=== PATIENT | male | born 1980 | race Caucasian/White ===

== ENCOUNTER 2022-12-04 23:04 | Emergency (ER) | payer MEDICARE, MEDICAID, SELFPAY ==
[2022-12-04 23:49] VITALS: BP 121/83; PULSE 81; RESP 16; TEMP 36.8; O2SAT 98; BMI 31.6
--- NOTE | 2022-12-05 00:05 | ED_ITS ---
HPI - General Adult General Chief complaint: Headache Stated complaint: HEADACHE Time Seen by Provider: 12/04/22 23:43 Source: patient Mode of arrival: walk-in Limitations: no limitations History of Present Illness HPI narrative: Patient presents to emergency department complaining of a headache. Patient states he has a history of migraines and epilepsy. He states it was a gradual onset headache that started 6 days ago. Since his left temporal area. Has been persistent although it does improve when he takes Maxalt but then it comes back up. Patient has some nausea and denies any vomiting. He denies any fever, chills, cough, chest pain, shortness of breath. He denies any trauma, visual disturbance, speech difficulties. To call his neurologist who advised him to come and be checked out for any intracranial pathology. Is not the patient's worst headache of his lifetime. it Has not changed in character, but he never had them this long. Related Data Home Medications Medication Instructions Recorded Confirmed Phenergan 25 mg PO TID PRN nausea and 12/04/22 12/05/22 vomiting clonazepam 2 mg tablet 2 mg PO TID 12/05/22 12/05/22 cyproheptadine 4 mg tablet 4 mg PO Q12H 12/05/22 12/05/22 galcanezumab-gnlm 120 mg/mL 120 mg subcut .monthly 12/05/22 12/05/22 subcutaneous pen injector (Emgality Pen) lacosamide 100 mg tablet 100 mg PO Q12H 12/05/22 12/05/22 quetiapine 400 mg tablet 400 mg PO DAILY 12/05/22 12/05/22 quetiapine 50 mg tablet 50 mg PO TID PRN anxiety 12/05/22 12/05/22 rizatriptan 10 mg disintegrating See Rx Instructions PO .COMPLEX 12/05/22 12/05/22 tablet (Maxalt-PRACTICE COORDINATOR) sertraline 100 mg tablet 300 mg PO Q24H 12/05/22 12/05/22 simvastatin 20 mg tablet 20 mg PO DAILY 12/05/22 12/05/22 Allergies Allergy/AdvReac Type Severity Reaction Status Date / Time desvenlafaxine [From Pristiq] Allergy Unknown Verified 12/05/22 01:15 keppra Allergy Unknown Uncoded 12/05/22 01:15 Review of Systems ROS Status of ROS 10 or more systems reviewed and unremarkable except as noted in history and below [facility] Social History Smoking status: Never smoker Exam Narrative Exam Narrative: Nurses notes and vital signs reviewed and patient is not hypoxic. General: Nontoxic, Well-appearing and in no apparent distress. Skin: Warm, dry, no pallor noted. No Rash Head: Normocephalic, atraumatic. no tenderness to the temporal artery. Neck: Supple, non-tender. Eye: Pupils are equal, round and EOMI. No scleral icterus. Ears, Nose, Mouth, and Throat: TM clear, no posterior oropharynx erythema or nasal mucosal hypertrophy, uvula is mid-line Oral mucosa is moist Cardiovascular: Regular Rate and Rhythm without murmur, gallop or rub. Respiratory: No accessory muscle use or respiratory distress. Lungs are clear to auscultation, no wheezing, rales or rhonchi Chest Wall: no tenderness Back: No midline thoracic or lumbar vertebral tenderness. No CVA tenderness Musculoskeletal: normal ROM, no calf or popliteal tenderness, no lower extremity edema/swelling GI: Abdomen is soft, non-distended. Normal bowel sounds. No masses appreciated. No tenderness to palpation. No rebound, guarding, or rigidity noted. Neurological: A&O x4. No cranial nerve dysfunction observed. No truncal ataxia. Moves all extremities. Sensation intact. Psychiatric: Cooperative and interactive. Normal mood and affect. Constitutional Vital Signs, click to edit/add: Last Vital Signs Temp 98.3 F 12/04/22 23:49 Pulse 74 12/05/22 02:08 Resp 20 12/05/22 02:08 BP 129/76 H 12/05/22 02:08 Pulse Ox 95 12/05/22 02:08 O2 Del Method Room Air 12/05/22 02:08 Course Vital Signs Vital signs: Vital Signs Temperature 98.3 F 12/04/22 23:49 Pulse Rate 81 12/04/22 23:49 Respiratory Rate 16 12/04/22 23:49 Blood Pressure 121/83 H 12/04/22 23:49 Pulse Oximetry 98 12/04/22 23:49 Oxygen Delivery Method Room Air 12/04/22 23:49 Temperature 98.3 F 12/04/22 23:49 Pulse Rate 74 12/05/22 02:08 Respiratory Rate 20 12/05/22 02:08 Blood Pressure 129/76 H 12/05/22 02:08 Pulse Oximetry 95 12/05/22 02:08 Oxygen Delivery Method Room Air 12/05/22 02:08 Medical Decision Making MDM Narrative Medical decision making narrative: Patient was given 1 L normal saline, analgesics, and time medics. Symptoms improved. Given Norflex. He is nontoxic, tolerating by mouth. Stable for outpatient follow-up and treatment. At this time the patient is without objective evidence of an acute process requiring hospitalization or inpatient management. The patient has remained hemodynamically stable. No additional indication for emergent studies at this time. I answered all questions. Discussed discharge instructions including standard anticipatory guidance and what should prompt a return to the emergency department, including if they get worse are not getting better or develops any new or concerning symptoms. I've given them specific time frame in which to follow-up, and who to follow-up with. The patient demonstrates understanding. Patient is nontoxic and stable for discharge with outpatient follow-up. This note was created with the assistance of a speech recognition program. Although the intention is to generate documents that actually reflects the content of the visit, no guarantees can be provided that every mistake has been identified and corrected by editing. Lab Data Lab results reviewed: Yes I reviewed the patient's lab results Labs: Lab Results 12/05/22 Range/Units 00:41 WBC 9.3 (4.0-11.0) 10^3/uL RBC 5.39 (4.70-6.10) 10^6/uL Hgb 15.6 (14.0-18.0) g/dL Hct 46.4 (42.0-54.0) % MCV 86.1 (80.0-94.0) fL MCH 28.9 (25.9-34.0) pg MCHC 33.6 (29.9-35.2) g/dL RDW 12.5 (11.0-15.0) % Plt Count 297 (150-450) 10^3/uL MPV 9.0 L (9.5-13.5) fL Neut % (Auto) 53.5 (43.0-75.0) % Lymph % (Auto) 32.9 (20.5-60.0) % [place] % (Auto) 9.2 (1.7-12.0) % Eos % (Auto) 3.3 (0.9-7.0) % Baso % (Auto) 0.8 (0.2-2.0) % Neut # (Auto) 5.0 (1.4-6.5) 10^3/uL Lymph # (Auto) 3.1 (1.2-3.8) 10^3/uL [place] # (Auto) 0.9 H (0.3-0.8) 10^3/uL Eos # (Auto) 0.3 (0.0-0.7) 10^3/uL Baso # (Auto) 0.1 (0.0-0.1) 10^3/uL Abs Immat Gran (auto) 0.03 (0.00-0.03) 10^3/uL Imm/Tot Granulo (auto) 0.3 (0.0-0.5) % ESR 15 (<=15) mm/hr Sodium 138 (136-145) mmol/L Potassium 3.5 (3.5-5.1) mmol/L Chloride 103 (98-107) mmol/L Carbon Dioxide 27.1 (21.0-32.0) mmol/L Anion Gap 11.4 BUN 11.0 (7.0-18.0) mg/dL Creatinine 0.79 (0.70-1.30) mg/dL Est GFR ( Amer) >60 (>=60) Est GFR (Non-Af Amer) >60 (>=60) BUN/Creatinine Ratio 13.9 Glucose 140 H (74-106) mg/dL Calcium 8.6 (8.5-10.1) mg/dL Discharge Plan Discharge Chief Complaint: Headache Clinical Impression: Headache Patient Disposition: Home, Self-Care Time of Disposition Decision: 02:16 Condition: Good Mode of Transportation: Private Vehicle Prescriptions / Home Meds: No Action Phenergan 25 mg tablet 25 mg PO TID PRN (Reason: nausea and vomiting) Rx Instructions: TID for nausea rizatriptan [Maxalt-PRACTICE COORDINATOR] 10 mg tablet,disintegrating See Rx Instructions .ROUTE .COMPLEX Rx Instructions: take 1 tab at onset of headache; if no relief may repeat 1 tab after at least 2 hrs; max = 3 tabs/24 hr Emgality Pen 120 mg/mL pen injector 120 mg SUBCUT .monthly quetiapine 400 mg tablet 400 mg PO DAILY Rx Instructions: at HS quetiapine 50 mg tablet 50 mg PO TID PRN (Reason: anxiety) lacosamide 100 mg tablet 100 mg PO Q12H clonazepam 2 mg tablet 2 mg PO TID cyproheptadine 4 mg tablet 4 mg PO Q12H sertraline 100 mg tablet 300 mg PO Q24H simvastatin 20 mg tablet 20 mg PO DAILY Rx Instructions: HS Instructions: General Headache (ED) Stand Alone Forms: Portal Instructions Referrals: Uriel Clements MD [Primary Care Provider] - 1 week Discharge Date/Time: 12/05/22 02:40
--- NOTE | 2022-12-05 00:26 | CT_ITS ---
The [address] [address] Patient Name: AMEYA MEZA MRN: [id number] date: 1980 Sex: M Assigned Patient Location: ER Current Patient Location: Accession/Order Number: [id number] Exam Date: 12/05/2022 01:40 Report Date: 12/05/2022 02:00 At the request of: MICHAEL GOLDMAN Procedure: CT head/brain wo con EXAM: CT head/brain wo con HISTORY: cephalgia COMPARISON: CT head examination dated 07/28/2022. TECHNIQUE: Noncontrast axial CT images through the head were obtained with coronal and sagittal reformats. Dose reduction techniques were achieved by using automated exposure control and/or adjustment of mA and/or kV according to patient size and/or use of iterative reconstruction technique. FINDINGS: The cerebral sulci and ventricles are normal in size and shape. The density of the cerebrum, brainstem, and cerebellum is unremarkable. There is no evidence of intracranial hemorrhage, mass, or midline shift. No extra-axial fluid collection is seen. The brainstem and cerebellum are normal in appearance. The visualized paranasal sinuses and mastoid air cells are clear. No skull abnormalities are identified. CT/CT head/brain wo con IMPRESSION: 1. No acute intracranial abnormality. Electronically authenticated by: Britt HOOPER Date: 12/05/2022 02:00
[2022-12-05 00:55] LABS: Basophils Absolute Auto 0.1 10^3/uL (0.0-0.1); Basophils Percent Auto 0.8 % (0.2-2.0); Eosinophils Absolute Auto 0.3 10^3/uL (0.0-0.7); Eosinophils Percent Auto 3.3 % (0.9-7.0); Hematocrit 46.4 % (42.0-54.0); Hemoglobin 15.6 g/dL (14.0-18.0); Immature Granulocytes Abs Auto 0.03 10^3/uL (0.00-0.03); Immature Granulocytes Pct Auto 0.3 % (0.0-0.5); Lymphocytes Absolute Auto 3.1 10^3/uL (1.2-3.8); Lymphocytes Percent Auto 32.9 % (20.5-60.0); Mean Corpuscular HGB Conc 33.6 g/dL (29.9-35.2); Mean Corpuscular Hemoglobin 28.9 pg (25.9-34.0); Mean Corpuscular Volume 86.1 fL (80.0-94.0); Monocytes Absolute Auto 0.9 10^3/uL (0.3-0.8); Monocytes Percent Auto 9.2 % (1.7-12.0); Neutrophils Percent Auto 53.5 % (43.0-75.0); Platelet Count 297 10^3/uL (150-450); Red Blood Count 5.39 10^6/uL (4.70-6.10); Red Cell Distribution Width 12.5 % (11.0-15.0); White Blood Count 9.3 10^3/uL (4.0-11.0)
[2022-12-05] MEDS: HYDROMORPHONE HCL 1 MG/ML CARTRIDGE IVP (01:01)
[2022-12-05] MEDS: ONDANSETRON PF 4 MG/2 ML VIAL IV (01:01)
[2022-12-05] MEDS: 0.9 % SODIUM CHLORIDE 1,000 ML 999 ML IV (01:01)
[2022-12-05] MEDS: KETOROLAC TROMETHAMINE 30 MG/ML VIAL IVP (01:01)
[2022-12-05 01:07] LABS: Anion Gap 11.4; BUN Creatinine Ratio 13.9; Calcium 8.6 mg/dL (8.5-10.1); Carbon Dioxide 27.1 mmol/L (21.0-32.0); Chloride 103 mmol/L (98-107); Estimated GFR (African America >60 (>=60); Estimated GFR (Non-African Ame >60 (>=60); Glucose 140 mg/dL (74-106); Potassium 3.5 mmol/L (3.5-5.1); Sodium 138 mmol/L (136-145)
[2022-12-05 01:13] LABS: Erythrocyte Sedimentation Rate 15 mm/hr (<=15)
[2022-12-05 02:08] VITALS: BP 129/76; PULSE 74; RESP 20; O2SAT 95
[2022-12-05] MEDS: ORPHENADRINE 60 MG/ 2 ML VIAL IV (02:26)
== END 2022-12-05 02:40 | disposition home or self-care (01) ==
PROVIDERS: Emergency Provider Emergency Medicine; PCP Family Medicine
DX: R51.9 Headache, unspecified (principal); G40.909 Epilepsy, unspecified, not intractable, without status epilepticus; Z79.899 Other long term (current) drug therapy
CPT/HCPCS: 36415; 70450; 80048; 85025; 85652; 96374; 96375; 99285; J1170

== ENCOUNTER 2023-01-19 22:51 | Emergency (ER) | payer MEDICARE, MEDICAID, SELFPAY ==
[2023-01-19 23:24] VITALS: BP 144/102; PULSE 118; RESP 18; TEMP 36.6; O2SAT 94; BMI 31.8
[2023-01-19 23:31] VITALS: BP 144/102
--- NOTE | 2023-01-19 23:38 | ED.NECK1 ---
HPI - Neck Pain/Injury General Chief Complaint: Neck Pain/Injury Stated Complaint: pain in head radiating to neck lt side Time Seen by Provider: 01/19/23 23:38 Source: patient Mode of arrival: walk-in History of Present Illness HPI Narrative: Patient presents to emergency department complaining of neck pain. Patient states he has a burning sensation from the left side of his neck radiating up to his head. Patient has a history of epilepsy and has generally does not stimulator. She states one time he had kind of the same type of symptoms and the wires had eroded and were out of place and he is concerned that this simply could be happening. He has pain when swallowing is more like burning he denies any throat swelling, or difficulty swallowing. He states he was seen by his primary care doctor recently being treated for vertigo any upper respiratory infection he is on a steroid, Cipro, and meclizine. Patient denies any fever, or chills. He states he has been using his BiPAP nightly.Patient denies any chest pain, shortness of breath. He denies any wheezing. He denies any lower extremity edema, or cramping. He denies any fever, chills. He denies any nausea, vomiting, diarrhea. Related Data Home Medications Medication Instructions Recorded Confirmed Phenergan 25 mg PO TID PRN nausea and 12/04/22 01/19/23 vomiting clonazepam 2 mg tablet 2 mg PO TID 12/05/22 01/19/23 cyproheptadine 4 mg tablet 4 mg PO Q12H 12/05/22 01/19/23 galcanezumab-gnlm 120 mg/mL 120 mg subcut .monthly 12/05/22 01/19/23 subcutaneous pen injector (Emgality Pen) lacosamide 100 mg tablet 100 mg PO Q12H 12/05/22 12/05/22 quetiapine 400 mg tablet 400 mg PO DAILY 12/05/22 01/19/23 quetiapine 50 mg tablet 50 mg PO TID PRN anxiety 12/05/22 12/05/22 rizatriptan 10 mg disintegrating See Rx Instructions PO .COMPLEX 12/05/22 01/19/23 tablet (Maxalt-COMMERCIAL LOAN UNDERWRITER) sertraline 100 mg tablet 300 mg PO Q24H 12/05/22 01/19/23 simvastatin 20 mg tablet 20 mg PO DAILY 12/05/22 01/19/23 albuterol sulfate 90 mcg/actuation inhalation 01/19/23 aerosol inhaler dextroamphetamine-amphetamine .ROUTE 01/19/23 fluticasone propionate 50 intranasal 01/19/23 mcg/actuation nasal spray,suspension Allergies Allergy/AdvReac Type Severity Reaction Status Date / Time desvenlafaxine [From Pristiq] Allergy Unknown Verified 12/05/22 01:15 keppra Allergy Unknown Uncoded 12/05/22 01:15 Review of Systems ROS Status of ROS 10 or more systems reviewed and unremarkable except as noted in history and below [facility] Medical History (Updated 01/20/23 @ 02:33 by Leann Campbell MD) Surgical History (Updated 01/19/23 @ 23:52 by Karli Aguirre) Social History Smoking status: Never smoker Exam Narrative Exam Narrative: Nurses notes and vital signs reviewed and patient is not hypoxic. General: Nontoxic, Well-appearing and in no apparent distress. Skin: Warm, dry, no pallor noted. No Rash Head: Normocephalic, atraumatic. Neck: Supple, non-tender. Eye: Pupils are equal, round and EOMI. No scleral icterus. Ears, Nose, Mouth, and Throat: TM clear, mild posterior oropharynx erythema, no nasal mucosal hypertrophy, uvula is mid-line Oral mucosa is moist Cardiovascular: Regular Rate and Rhythm without murmur, gallop or rub. Respiratory: No accessory muscle use or respiratory distress. Lungs are clear to auscultation, no wheezing, rales or rhonchi Chest Wall: no tenderness Back: No midline thoracic or lumbar vertebral tenderness. No CVA tenderness Musculoskeletal: normal ROM, no calf or popliteal tenderness, no lower extremity edema/swelling GI: Abdomen is soft, non-distended. Normal bowel sounds. No masses appreciated. No tenderness to palpation. No rebound, guarding, or rigidity noted. Neurological: A&O x4. No cranial nerve dysfunction observed. No truncal ataxia. Moves all extremities. Sensation intact. Psychiatric: Cooperative and interactive. Normal mood and affect. Constitutional Vital Signs, click to edit/add: Last Vital Signs Temp 97.9 F 01/19/23 23:24 Pulse 118 H 01/19/23 23:24 Resp 18 01/19/23 23:24 BP 159/100 H 01/20/23 02:35 Pulse Ox 97 01/20/23 02:40 Course Vital Signs Vital signs: Vital Signs Temperature 97.9 F 01/19/23 23:24 Pulse Rate 118 H 01/19/23 23:24 Respiratory Rate 18 01/19/23 23:24 Blood Pressure 144/102 H 01/19/23 23:24 Pulse Oximetry 94 L 01/19/23 23:24 Temperature 97.9 F 01/19/23 23:24 Pulse Rate 118 H 01/19/23 23:24 Respiratory Rate 18 01/19/23 23:24 Blood Pressure 159/100 H 01/20/23 02:35 Pulse Oximetry 97 01/20/23 02:40 MDM - Neck Pain/Injury MDM Narrative Medical decision making narrative: Patient was given a gastrointestinal cocktail to see if it would help with the discomfort. CT neck soft tissue is unremarkable. The patient was swabbed for strep which is negative. Patient is positive for Covid-19. At this time the patient is without objective evidence of an acute process requiring hospitalization or inpatient management. The patient has remained hemodynamically stable. No additional indication for emergent studies at this time. I answered all questions. Discussed discharge instructions including standard anticipatory guidance and what should prompt a return to the emergency department, including if they get worse are not getting better or develops any new or concerning symptoms. I've given them specific time frame in which to follow-up, and who to follow-up with. The patient demonstrates understanding. Patient is nontoxic and stable for discharge with outpatient follow-up. This note was created with the assistance of a speech recognition program. Although the intention is to generate documents that actually reflects the content of the visit, no guarantees can be provided that every mistake has been identified and corrected by editing. Lab Data Attestation: I reviewed the patient's lab results. Labs: Lab Results 01/20/23 01/20/23 Range/Units 00:30 01:00 WBC 11.6 H (4.0-11.0) 10^3/uL RBC 5.94 (4.70-6.10) 10^6/uL Hgb 16.9 (14.0-18.0) g/dL Hct 50.8 (42.0-54.0) % MCV 85.5 (80.0-94.0) fL MCH 28.5 (25.9-34.0) pg MCHC 33.3 (29.9-35.2) g/dL RDW 13.1 (11.0-15.0) % Plt Count 356 (150-450) 10^3/uL MPV 8.5 L (9.5-13.5) fL Neut % (Auto) 69.8 (43.0-75.0) % Lymph % (Auto) 22.3 (20.5-60.0) % [place] % (Auto) 6.3 (1.7-12.0) % Eos % (Auto) 0.2 L (0.9-7.0) % Baso % (Auto) 0.5 (0.2-2.0) % Neut # (Auto) 8.1 H (1.4-6.5) 10^3/uL Lymph # (Auto) 2.6 (1.2-3.8) 10^3/uL [place] # (Auto) 0.7 (0.3-0.8) 10^3/uL Eos # (Auto) 0.0 (0.0-0.7) 10^3/uL Baso # (Auto) 0.1 (0.0-0.1) 10^3/uL Abs Immat Gran (auto) 0.11 H (0.00-0.03) 10^3/uL Imm/Tot Granulo (auto) 0.9 H (0.0-0.5) % Sodium 135 L (136-145) mmol/L Potassium 4.4 (3.5-5.1) mmol/L Chloride 95 L (98-107) mmol/L Carbon Dioxide 32.5 H (21.0-32.0) mmol/L Anion Gap 11.9 BUN 15.0 (7.0-18.0) mg/dL Creatinine 0.90 (0.70-1.30) mg/dL Est GFR ( Amer) >60 (>=60) Est GFR (Non-Af Amer) >60 (>=60) BUN/Creatinine Ratio 16.7 Glucose 113 H (74-106) mg/dL Calcium 9.4 (8.5-10.1) mg/dL Total Bilirubin 0.6 (0.2-1.0) mg/dL AST 18 (15-37) U/L ALT 48 (16-63) U/L Alkaline Phosphatase 68 (46-116) U/L Total Protein 8.3 H (6.4-8.2) g/dL Albumin 4.3 (3.4-5.0) g/dL Globulin 4.0 g/dL Albumin/Globulin Ratio 1.1 SARS-CoV-2 (PCR) Positive A (NEGATIVE) Streptococcus Screen Negative Discharge Plan Discharge Chief Complaint: Neck Pain/Injury Clinical Impression: Upper respiratory tract infection due to COVID-19 virus, Pharyngitis Patient Disposition: Home, Self-Care Time of Disposition Decision: 02:33 Condition: Good Mode of Transportation: Private Vehicle Prescriptions / Home Meds: No Action Phenergan 25 mg tablet 25 mg PO TID PRN (Reason: nausea and vomiting) Rx Instructions: TID for nausea rizatriptan [Maxalt-COMMERCIAL LOAN UNDERWRITER] 10 mg tablet,disintegrating See Rx Instructions .ROUTE .COMPLEX Rx Instructions: take 1 tab at onset of headache; if no relief may repeat 1 tab after at least 2 hrs; max = 3 tabs/24 hr Emgality Pen 120 mg/mL pen injector 120 mg SUBCUT .monthly quetiapine 400 mg tablet 400 mg PO DAILY Rx Instructions: at HS quetiapine 50 mg tablet 50 mg PO TID PRN (Reason: anxiety) lacosamide 100 mg tablet 100 mg PO Q12H clonazepam 2 mg tablet 2 mg PO TID cyproheptadine 4 mg tablet 4 mg PO Q12H sertraline 100 mg tablet 300 mg PO Q24H simvastatin 20 mg tablet 20 mg PO DAILY Rx Instructions: HS albuterol sulfate 90 mcg/actuation HFA aerosol inhaler INHALATION fluticasone propionate 50 mcg/actuation spray,suspension INTRANASAL dextroamphetamine-amphetamine [Adderall] .ROUTE Instructions: Pharyngitis (ED), How to Recover from COVID-19 at Home (ED) Stand Alone Forms: Portal Instructions Referrals: Uriel Clements MD [Primary Care Provider] - 1 week Discharge Date/Time: 01/20/23 02:52
[2023-01-19 23:42] VITALS: O2SAT 94
[2023-01-19 23:50] VITALS: O2SAT 96
[2023-01-20] VITALS (20 sets, daily range): BP systolic 128–159; BP diastolic 87–105; O2SAT 94–99
--- NOTE | 2023-01-20 00:20 | CT_ITS ---
The [address] [address] Patient Name: AMEYA MEZA MRN: [id number] date: 1980 Sex: M Assigned Patient Location: ER Current Patient Location: Accession/Order Number: [id number] Exam Date: 01/20/2023 00:45 Report Date: 01/20/2023 01:06 At the request of: MICHAEL GOLDMAN Procedure: CT soft tissue neck w con EXAMINATION: CT soft tissue neck w con CLINICAL INDICATION: Throat pain, swelling. TECHNIQUE: Axial CT images of the soft tissues of the neck were obtained following intravenous administration of 100 cc of Omnipaque 300. Coronal and sagittal images were then acquired using the source data. Automated dose lowering techniques and/or adjustment according to patient size were utilized for this examination. COMPARISON: CT of the soft tissues of the neck dated DATE. FINDINGS: The presence of dental amalgam causes streak artifact that obscures portions of the mandible, maxilla and the soft tissues of the signalling and communications engineer and buccal spaces and oral cavity and oropharynx thus limiting evaluation in these regions. There are no abnormally enhancing masses in the superficial or deep soft tissues of the head and neck. The fat planes are preserved. No abnormally enlarged lymph nodes are present. The oropharynx, hypopharynx, larynx, and trachea are patent. The parotid glands, submandibular glands, and thyroid gland are unremarkable. Small mucous retention cyst versus polyp within the left maxillary antrum. Remaining imaged portions of the paranasal sinuses, mastoid air cells, and orbits are normal. There is no abnormal attenuation or enhancement in the imaged portions of the brain. Vascular structures are patent without high-grade stenosis. No acute osseous abnormality otherwise. Imaged portions of the lungs and the mediastinum are normal. CT/CT soft tissue neck w con IMPRESSION: 1. No acute process visualized within the soft tissues of the neck. Electronically authenticated by: ABNER RAMIREZ Date: 01/20/2023 01:06
--- NOTE | 2023-01-20 00:35 | PC.NURSE ---
patient has vagal nerve stimulator to treat epilepsy. He has had pain in his neck like this in the past, 2020, but only because the wires on the stimulator broke. He was transferred from this facility to [facility] where all of the care for this stimulator is done.
[2023-01-20 00:42] LABS: Basophils Absolute Auto 0.1 10^3/uL (0.0-0.1); Basophils Percent Auto 0.5 % (0.2-2.0); Eosinophils Percent Auto 0.2 % (0.9-7.0); Hematocrit 50.8 % (42.0-54.0); Hemoglobin 16.9 g/dL (14.0-18.0); Immature Granulocytes Abs Auto 0.11 10^3/uL (0.00-0.03); Immature Granulocytes Pct Auto 0.9 % (0.0-0.5); Lymphocytes Absolute Auto 2.6 10^3/uL (1.2-3.8); Lymphocytes Percent Auto 22.3 % (20.5-60.0); Mean Corpuscular HGB Conc 33.3 g/dL (29.9-35.2); Mean Corpuscular Hemoglobin 28.5 pg (25.9-34.0); Mean Corpuscular Volume 85.5 fL (80.0-94.0); Mean Platelet Volume 8.5 fL (9.5-13.5); Monocytes Absolute Auto 0.7 10^3/uL (0.3-0.8); Monocytes Percent Auto 6.3 % (1.7-12.0); Neutrophils Absolute Auto 8.1 10^3/uL (1.4-6.5); Neutrophils Percent Auto 69.8 % (43.0-75.0); Platelet Count 356 10^3/uL (150-450); Red Blood Count 5.94 10^6/uL (4.70-6.10); Red Cell Distribution Width 13.1 % (11.0-15.0); White Blood Count 11.6 10^3/uL (4.0-11.0)
[2023-01-20] MEDS: 0.9 % SODIUM CHLORIDE 1,000 ML 999 ML IV (00:56)
[2023-01-20 00:59] LABS: Alanine Aminotransferase 48 U/L (16-63); Albumin Globulin Ratio 1.1; Albumin Level 4.3 g/dL (3.4-5.0); Alkaline Phosphatase 68 U/L (46-116); Anion Gap 11.9; Aspartate Amino Transferase 18 U/L (15-37); BUN Creatinine Ratio 16.7; Bilirubin Total 0.6 mg/dL (0.2-1.0); Calcium 9.4 mg/dL (8.5-10.1); Carbon Dioxide 32.5 mmol/L (21.0-32.0); Chloride 95 mmol/L (98-107); Estimated GFR (African America >60 (>=60); Estimated GFR (Non-African Ame >60 (>=60); Glucose 113 mg/dL (74-106); Potassium 4.4 mmol/L (3.5-5.1); Sodium 135 mmol/L (136-145); Total Protein 8.3 g/dL (6.4-8.2)
--- NOTE | 2023-01-20 01:33 | XR_ITS ---
The [address] [address] Patient Name: AMEYA MEZA MRN: [id number] date: 1980 Sex: M Assigned Patient Location: ER Current Patient Location: ER Accession/Order Number: [id number] Exam Date: 01/20/2023 01:58 Report Date: 01/20/2023 02:11 At the request of: MICHAEL GOLDMAN Procedure: XR chest 1V EXAM: XR chest 1V HISTORY: cough COMPARISON: 01/12/2022. TECHNIQUE: AP FINDINGS: Stable left-sided cardiac pacemaker. Heart size is within normal limits. The lung cisneros show no evidence for consolidation, infiltrate, pneumothorax or pleural effusions. The diaphragmatic and osseous structures are intact without evidence for an acute osseous abnormality. XR/XR chest 1V IMPRESSION: No acute cardiopulmonary process. Electronically authenticated by: ABNER RAMIREZ Date: 01/20/2023 02:11
[2023-01-20 01:45] LABS: SARS-CoV-2 Ag POSITIVE (NEGATIVE)
[2023-01-20 01:46] LABS: Internal Control Within Normal Limits; Strep A Antigen Screen Negative
[2023-01-20] MEDS: lidocaine HCL 15 ML, MAG HYDROX/ALUMINUM HYD/SIMETH 30 ML, HYOSCYAMINE SULFATE 0.25 MG PO (02:32)
== END 2023-01-20 02:52 | disposition home or self-care (01) ==
PROVIDERS: Emergency Provider Emergency Medicine; PCP Family Medicine
DX: U07.1 COVID-19 (principal); J06.9 Acute upper respiratory infection, unspecified; J02.9 Acute pharyngitis, unspecified; G40.909 Epilepsy, unspecified, not intractable, without status epilepticus; Z79.899 Other long term (current) drug therapy
CPT/HCPCS: 36415; 70491; 71045; 80053; 85025; 87070; 87811; 87880; 99285; Q9967

== ENCOUNTER 2023-02-23 22:24 | Emergency (ER) | payer MEDICARE, MEDICAID, SELFPAY ==
[2023-02-23 22:42] VITALS: BP 162/106; PULSE 93; RESP 16; TEMP 36.6; O2SAT 98; BMI 30.7
--- NOTE | 2023-02-23 23:03 | CT_ITS ---
The [address] [address] Patient Name: AMEYA MEZA MRN: [id number] date: 1980 Sex: M Assigned Patient Location: ER Current Patient Location: ER Accession/Order Number: [id number] Exam Date: 02/23/2023 23:52 Report Date: 02/24/2023 00:11 At the request of: ROSEMARY MEEKS Procedure: CT abdomen pelvis wo con EXAM: CT abdomen pelvis wo con HISTORY: left flank pain, r/o stone COMPARISON: CT abdomen and pelvis examination dated 07/28/2022. TECHNIQUE: Noncontrast axial CT images through the abdomen and pelvis were obtained with coronal and sagittal reformats. Dose reduction techniques were achieved by using automated exposure control and/or adjustment of mA and/or kV according to patient size and/or use of iterative reconstruction technique. FINDINGS: There is mild bibasilar atelectasis. Abdomen: Please note that the sensitivity for detection of focal lesions or vascular disease is markedly reduced without intravenous contrast. The liver and spleen are unremarkable. There is no intra or extrahepatic biliary duct dilatation. The gallbladder is unremarkable. There is a 0.4 cm calculus in the distal left ureter with mild left hydroureter and hydronephrosis. The pancreas, adrenal glands, right kidney, and bowel loops are unremarkable. The patient is status post appendectomy. There is no mesenteric or retroperitoneal lymphadenopathy. Pelvis: The bladder demonstrates mild wall thickening. The rectum is unremarkable. There is no iliac or inguinal lymphadenopathy. There are small fat-containing inguinal hernias. Bone windows show no aggressive osseous lesions. CT/CT abdomen pelvis wo con IMPRESSION: 1. There is a 0.4 cm calculus in the distal left ureter with mild hydroureter and hydronephrosis. 2. Status post appendectomy. 3. Urinary bladder wall thickening. Please correlate with urinalysis for infection. Electronically authenticated by: Britt HOOPER Date: 02/24/2023 00:11
[2023-02-23 23:32] LABS: Basophils Absolute Auto 0.1 10^3/uL (0.0-0.1); Basophils Percent Auto 0.7 % (0.2-2.0); Eosinophils Absolute Auto 0.1 10^3/uL (0.0-0.7); Eosinophils Percent Auto 1.1 % (0.9-7.0); Hematocrit 45.7 % (42.0-54.0); Immature Granulocytes Abs Auto 0.03 10^3/uL (0.00-0.03); Immature Granulocytes Pct Auto 0.3 % (0.0-0.5); Lymphocytes Absolute Auto 2.1 10^3/uL (1.2-3.8); Lymphocytes Percent Auto 19.7 % (20.5-60.0); Mean Corpuscular HGB Conc 32.8 g/dL (29.9-35.2); Mean Corpuscular Volume 88.2 fL (80.0-94.0); Mean Platelet Volume 9.1 fL (9.5-13.5); Monocytes Absolute Auto 0.8 10^3/uL (0.3-0.8); Neutrophils Absolute Auto 7.7 10^3/uL (1.4-6.5); Neutrophils Percent Auto 71.2 % (43.0-75.0); Platelet Count 309 10^3/uL (150-450); Red Blood Count 5.18 10^6/uL (4.70-6.10); Red Cell Distribution Width 12.6 % (11.0-15.0); White Blood Count 10.7 10^3/uL (4.0-11.0)
[2023-02-23 23:39] LABS: Anion Gap 8.8; BUN Creatinine Ratio 15.7; Calcium 9.1 mg/dL (8.5-10.1); Carbon Dioxide 30.1 mmol/L (21.0-32.0); Chloride 102 mmol/L (98-107); Estimated GFR (African America >60 (>=60); Estimated GFR (Non-African Ame >60 (>=60); Glucose 102 mg/dL (74-106); Potassium 3.9 mmol/L (3.5-5.1); Sodium 137 mmol/L (136-145)
--- NOTE | 2023-02-23 23:53 | ED.MALEGU1 ---
HPI - Male Genitourinary General Chief complaint: Urogenital-Male Stated complaint: Hematuria Time Seen by Provider: 02/23/23 22:44 Source: patient Mode of arrival: walk-in Limitations: no limitations History of Present Illness HPI Narrative: 42-year-old male presents for low abdominal pain and hematuria. 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 He has some pain in the left flank area. He has a history of kidney stones and has seen a urologist in the past and he thinks that that urologist is retired, Dr. Veloz. No right-sided pain or fever or vomiting. Related Data Home Medications Medication Instructions Recorded Confirmed Phenergan 25 mg PO TID PRN nausea and 12/04/22 01/19/23 vomiting clonazepam 2 mg tablet 2 mg PO TID 12/05/22 01/19/23 cyproheptadine 4 mg tablet 4 mg PO Q12H 12/05/22 01/19/23 galcanezumab-gnlm 120 mg/mL 120 mg subcut .monthly 12/05/22 01/19/23 subcutaneous pen injector (Emgality Pen) lacosamide 100 mg tablet 100 mg PO Q12H 12/05/22 12/05/22 quetiapine 400 mg tablet 400 mg PO DAILY 12/05/22 01/19/23 quetiapine 50 mg tablet 50 mg PO TID PRN anxiety 12/05/22 12/05/22 rizatriptan 10 mg disintegrating See Rx Instructions PO .COMPLEX 12/05/22 01/19/23 tablet (Maxalt-MEDICAL RESEARCH TECH) sertraline 100 mg tablet 300 mg PO Q24H 12/05/22 01/19/23 simvastatin 20 mg tablet 20 mg PO DAILY 12/05/22 01/19/23 albuterol sulfate 90 mcg/actuation inhalation 01/19/23 aerosol inhaler dextroamphetamine-amphetamine .ROUTE 01/19/23 fluticasone propionate 50 intranasal 01/19/23 mcg/actuation nasal spray,suspension Previous Rx's Medication Instructions Recorded cephalexin 500 mg capsule 500 mg PO TID 7 days #21 caps 02/24/23 hydrocodone 5 mg-acetaminophen 325 1 tab PO Q6H PRN pain 5 days #20 02/24/23 mg tablet tabs ondansetron 4 mg disintegrating 4 mg PO Q6H PRN nausea and 02/24/23 tablet vomiting #20 tabs tamsulosin 0.4 mg capsule (Flomax) 0.4 mg PO DAILY #7 caps 02/24/23 Allergies Allergy/AdvReac Type Severity Reaction Status Date / Time desvenlafaxine [From Pristiq] Allergy Unknown Verified 02/23/23 22:46 keppra Allergy Unknown Uncoded 02/23/23 22:46 Review of Systems ROS Narrative A ten point review of systems is negative except as noted above. PFSH PFSH Medical History (Updated 02/24/23 @ 00:32 by Chandler Sneed MD) Anxiety ?F41.9 - Anxiety disorder, unspecified (ICD-10) Bipolar 1 disorder ?F31.9 - Bipolar disorder, unspecified (ICD-10) Depression ?F32.A - Depression, unspecified (ICD-10) Epilepsy ?G40.909 - Epilepsy, unspecified, not intractable, without status epilepticus (ICD-10) GERD (gastroesophageal reflux disease) ?K21.9 - Gastro-esophageal reflux disease without esophagitis (ICD-10) Insomnia ?G47.00 - Insomnia, unspecified (ICD-10) Migraine ?G43.909 - Migraine, unspecified, not intractable, without status migrainosus (ICD-10) HIMA (obstructive sleep apnea) ?G47.33 - Obstructive sleep apnea (adult) (pediatric) (ICD-10) PTSD (post-traumatic stress disorder) ?F43.10 - Post-traumatic stress disorder, unspecified (ICD-10) Respiratory failure requiring intubation ?J96.90 - Respiratory failure, unspecified, unspecified whether with hypoxia or hypercapnia (ICD-10) Suicidal ideation ?R45.851 - Suicidal ideations (ICD-10) Surgical History (Updated 01/19/23 @ 23:52 by Karli Aguirre) 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 ?Z96.89 - Presence of other specified functional implants (ICD-10) Social History Smoking status: Never smoker Exam Narrative Exam Narrative: Nurses note and vital signs reviewed and patient is not hypoxic. General: The patient appears well and in no apparent distress. Patient is resting comfortably on cart. Skin: Warm, dry, no pallor noted. There is no rash noted. Head: Normocephalic, atraumatic Eye: Normal conjunctiva, no drainage Ears, Nose, Mouth, and Throat: oral mucosa is moist. Nares patent. Cardiovascular: Regular Rate and Rhythm Respiratory: Patient is in no distress, no accessory muscle use, lungs are clear to auscultation, no wheezing, rales or rhonchi Back: non-tender, no CVA tenderness bilaterally to percussion. GI: tenderness in the suprapubic area Musculoskeletal: The patient has no evidence of calf tenderness, no pitting edema, symmetrical pulses noted bilaterally Neurological: A&O, normal speech Psychiatric: Cooperative Constitutional Vital Signs, click to edit/add: Last Vital Signs Temp 97.8 F 02/23/23 22:42 Pulse 93 H 02/23/23 22:42 Resp 16 02/23/23 22:42 BP 162/106 H 02/23/23 22:42 Pulse Ox 98 02/23/23 22:42 O2 Del Method Room Air 02/23/23 22:42 Course Vital Signs Vital signs: Vital Signs Temperature 97.8 F 02/23/23 22:42 Pulse Rate 93 H 02/23/23 22:42 Respiratory Rate 16 02/23/23 22:42 Blood Pressure 162/106 H 02/23/23 22:42 Pulse Oximetry 98 02/23/23 22:42 Oxygen Delivery Method Room Air 02/23/23 22:42 Temperature 97.8 F 02/23/23 22:42 Pulse Rate 93 H 02/23/23 22:42 Respiratory Rate 16 02/23/23 22:42 Blood Pressure 162/106 H 02/23/23 22:42 Pulse Oximetry 98 02/23/23 22:42 Oxygen Delivery Method Room Air 02/23/23 22:42 MDM - Male Genitourinary MDM Narrative Medical decision making narrative: 4 millimeter distal left ureteral stone identified. He'll be discharged home and will follow up with urology in the morning. he was prescribed [place], Flomax, Zofran, and Keflex. Treatment diagnosis and follow-up were discussed with the patient. Differential Diagnosis Differential diagnosis: Likely urinary tract infection, acute retention of urine and other (kidney stone) Lab Data Attestation: I reviewed the patient's lab results. Labs: Lab Results 02/23/23 Range/Units 23:20 WBC 10.7 (4.0-11.0) 10^3/uL RBC 5.18 (4.70-6.10) 10^6/uL Hgb 15.0 (14.0-18.0) g/dL Hct 45.7 (42.0-54.0) % MCV 88.2 (80.0-94.0) fL MCH 29.0 (25.9-34.0) pg MCHC 32.8 (29.9-35.2) g/dL RDW 12.6 (11.0-15.0) % Plt Count 309 (150-450) 10^3/uL MPV 9.1 L (9.5-13.5) fL Neut % (Auto) 71.2 (43.0-75.0) % Lymph % (Auto) 19.7 L (20.5-60.0) % [place]da % (Auto) 7.0 (1.7-12.0) % Eos % (Auto) 1.1 (0.9-7.0) % Baso % (Auto) 0.7 (0.2-2.0) % Neut # (Auto) 7.7 H (1.4-6.5) 10^3/uL Lymph # (Auto) 2.1 (1.2-3.8) 10^3/uL [place]da # (Auto) 0.8 (0.3-0.8) 10^3/uL Eos # (Auto) 0.1 (0.0-0.7) 10^3/uL Baso # (Auto) 0.1 (0.0-0.1) 10^3/uL Abs Immat Gran (auto) 0.03 (0.00-0.03) 10^3/uL Imm/Tot Granulo (auto) 0.3 (0.0-0.5) % Sodium 137 (136-145) mmol/L Potassium 3.9 (3.5-5.1) mmol/L Chloride 102 (98-107) mmol/L Carbon Dioxide 30.1 (21.0-32.0) mmol/L Anion Gap 8.8 BUN 13.0 (7.0-18.0) mg/dL Creatinine 0.83 (0.70-1.30) mg/dL Est GFR ( Amer) >60 (>=60) Est GFR (Non-Af Amer) >60 (>=60) BUN/Creatinine Ratio 15.7 Glucose 102 (74-106) mg/dL Calcium 9.1 (8.5-10.1) mg/dL Imaging Data CT scan - abdomen: Radiologist's impression: Procedure: CT abdomen pelvis wo con EXAM: CT abdomen pelvis wo con HISTORY: left flank pain, r/o stone COMPARISON: CT abdomen and pelvis examination dated 07/28/2022. TECHNIQUE: Noncontrast axial CT images through the abdomen and pelvis were obtained with coronal and sagittal reformats. Dose reduction techniques were achieved by using automated exposure control and/or adjustment of mA and/or kV according to patient size and/or use of iterative reconstruction technique. FINDINGS: There is mild bibasilar atelectasis. Abdomen: Please note that the sensitivity for detection of focal lesions or vascular disease is markedly reduced without intravenous contrast. The liver and spleen are unremarkable. There is no intra or extrahepatic biliary duct dilatation. The gallbladder is unremarkable. There is a 0.4 cm calculus in the distal left ureter with mild left hydroureter and hydronephrosis. The pancreas, adrenal glands, right kidney, and bowel loops are unremarkable. The patient is status post appendectomy. There is no mesenteric or retroperitoneal lymphadenopathy. Pelvis: The bladder demonstrates mild wall thickening. The rectum is unremarkable. There is no iliac or inguinal lymphadenopathy. There are small fat-containing inguinal hernias. Bone windows show no aggressive osseous lesions. IMPRESSION: 1. There is a 0.4 cm calculus in the distal left ureter with mild hydroureter and hydronephrosis. 2. Status post appendectomy. 3. Urinary bladder wall thickening. Please correlate with urinalysis for infection. Electronically authenticated by: Britt HOOPER Date: 02/24/2023 00:11 Discharge Plan Discharge Chief Complaint: Urogenital-Male Clinical Impression: Kidney stone Patient Disposition: Home, Self-Care Time of Disposition Decision: 00:27 Condition: Good Mode of Transportation: Private Vehicle Prescriptions / Home Meds: New hydrocodone-acetaminophen 5-325 mg tablet 1 tab PO Q6H PRN (Reason: pain) 5 Days Qty: 20 0RF tamsulosin [Flomax] 0.4 mg capsule 0.4 mg PO DAILY Qty: 7 0RF ondansetron 4 mg tablet,disintegrating 4 mg PO Q6H PRN (Reason: nausea and vomiting) Qty: 20 0RF cephalexin 500 mg capsule 500 mg PO TID 7 Days Qty: 21 0RF No Action Phenergan 25 mg tablet 25 mg PO TID PRN (Reason: nausea and vomiting) Rx Instructions: TID for nausea rizatriptan [Maxalt-MEDICAL RESEARCH TECH] 10 mg tablet,disintegrating See Rx Instructions .ROUTE .COMPLEX Rx Instructions: take 1 tab at onset of headache; if no relief may repeat 1 tab after at least 2 hrs; max = 3 tabs/24 hr Emgality Pen 120 mg/mL pen injector 120 mg SUBCUT .monthly quetiapine 400 mg tablet 400 mg PO DAILY Rx Instructions: at HS quetiapine 50 mg tablet 50 mg PO TID PRN (Reason: anxiety) lacosamide 100 mg tablet 100 mg PO Q12H clonazepam 2 mg tablet 2 mg PO TID cyproheptadine 4 mg tablet 4 mg PO Q12H sertraline 100 mg tablet 300 mg PO Q24H simvastatin 20 mg tablet 20 mg PO DAILY Rx Instructions: HS albuterol sulfate 90 mcg/actuation HFA aerosol inhaler INHALATION fluticasone propionate 50 mcg/actuation spray,suspension INTRANASAL dextroamphetamine-amphetamine [Adderall] .ROUTE Instructions: Kidney Stones (ED), Low Oxalate Diet (ED), Lithotripsy (DC) Additional Instructions: Call Dr. Darling in the morning Stand Alone Forms: Portal Instructions Referrals: Uriel Clements MD [Primary Care Provider] - 1 week
--- NOTE | 2023-02-24 00:17 | PC.NURSE ---
patient states he noticed a little bit of blood in his urine this morning. did not think much of it but states tonight he notied more and is now having urgency and unable to fully empty bladder, RN attempted bladder scan and did not see anything, will get second nurse for second opinion. pain radiating from left flank around to suprapubic area and into testicals. pain is sharp and comes in waves. sees dr. baldwin for urology. hx of kidney stones. denies fever nausea, vomitinng
[2023-02-24 00:35] VITALS: BP 130/90; PULSE 79; RESP 16; O2SAT 96
[2023-02-24] MEDS: MORPHINE SULFATE 4 MG/ML VIAL IV ×2 (00:43)
== END 2023-02-24 01:27 | disposition home or self-care (01) ==
PROVIDERS: Emergency Provider Emergency Medicine; PCP Family Medicine
DX: N13.2 Hydronephrosis with renal and ureteral calculous obstruction (principal); Z87.442 Personal history of urinary calculi; F41.9 Anxiety disorder, unspecified; F31.9 Bipolar disorder, unspecified; G40.909 Epilepsy, unspecified, not intractable, without status epilepticus; K21.9 Gastro-esophageal reflux disease without esophagitis; G47.00 Insomnia, unspecified; G47.33 Obstructive sleep apnea (adult) (pediatric); G43.909 Migraine, unspecified, not intractable, without status migrainosus; F43.10 Post-traumatic stress disorder, unspecified; Z96.89 Presence of other specified functional implants; Z79.899 Other long term (current) drug therapy
CPT/HCPCS: 36415; 51798; 74176; 80048; 81001; 85025; 96374; 96376; 99284

== ENCOUNTER 2023-03-29 04:54 | Emergency (ER) | payer MEDICARE, MEDICAID, SELFPAY ==
[2023-03-29] VITALS (74 sets, daily range): BP systolic 91–153; BP diastolic 51–110; PULSE 75–115; RESP 10–23; TEMP 36.4; O2SAT 84–99
--- NOTE | 2023-03-29 05:22 | CT_ITS ---
The [address] [address] Patient Name: AMEYA MEZA MRN: [id number] date: 1980 Sex: M Assigned Patient Location: ER Current Patient Location: Accession/Order Number: [id number] Exam Date: 03/29/2023 05:40 Report Date: 03/29/2023 06:16 At the request of: KEVIN STERN Procedure: CT head/brain wo con INDICATION: 42 years old; Male. Change in mental status. TECHNIQUE: CT Head (ax/cor/sag reformats). Ionizing radiation dose reduced via iterative reconstruction/FBP blend and body size kV/mA adjustment. Comparison: CT dated 12/05/2022. Motion artifacts degrade several images. FINDINGS: POSTOPERATIVE CHANGES: None. BRAIN PARENCHYMA: No focal lesions. No mass effect. No midline shift or herniation. No intraparenchymal or extra-axial hemorrhage. Normal hernandez/white differentiation. VENTRICLES/EXTRA-AXIAL SPACES: Normal for patient's age. SINUSES/MASTOIDS: The visualized sinuses are clear. Right frontal sinuses are hypoplastic. The maxillary sinuses are not entirely visible in this routine CT the head. Mastoids and middle ears are clear. MSK: No displaced or depressed calvarial fracture OTHER: No hyperdense intraluminal thrombus. CT/CT head/brain wo con IMPRESSION: 1. Allowing for some motion artifacts, no acute intracranial abnormality. No hemorrhage or mass effect. Electronically authenticated by: MARILYN GRECO Date: 03/29/2023 06:16
--- NOTE | 2023-03-29 05:26 | ED.PSYCH1 ---
HPI - Psych General Chief Complaint: Psychiatric Symptoms Stated Complaint: OTHER Time Seen by Provider: 03/29/23 05:14 Source: Reports patient Mode of arrival: ambulance Limitations: Reports altered mental status History of Present Illness HPI Narrative: history very limited. Patient found outside by Police. Patient not able to provide history. Very lethargic. Reportedly overdose of 5 400mg Seroquel pills. He said this to nursing when he firt arrived. He is now more lethargic and his answers are not intelligible. He has small cuts on right leg and left parietal scalp. not able to provide any history about the injuries Related Data Home Medications Medication Instructions Recorded Confirmed Phenergan 25 mg PO TID PRN nausea and 12/04/22 01/19/23 vomiting clonazepam 2 mg tablet 2 mg PO TID 12/05/22 01/19/23 cyproheptadine 4 mg tablet 4 mg PO Q12H 12/05/22 01/19/23 galcanezumab-gnlm 120 mg/mL 120 mg subcut .monthly 12/05/22 01/19/23 subcutaneous pen injector (Emgality Pen) lacosamide 100 mg tablet 100 mg PO Q12H 12/05/22 12/05/22 quetiapine 400 mg tablet 400 mg PO DAILY 12/05/22 01/19/23 quetiapine 50 mg tablet 50 mg PO TID PRN anxiety 12/05/22 12/05/22 rizatriptan 10 mg disintegrating See Rx Instructions PO .COMPLEX 12/05/22 01/19/23 tablet (Maxalt-CLINICAL SPECIALIST MEDICAL DEVICE) sertraline 100 mg tablet 300 mg PO Q24H 12/05/22 01/19/23 simvastatin 20 mg tablet 20 mg PO DAILY 12/05/22 01/19/23 albuterol sulfate 90 mcg/actuation inhalation 01/19/23 aerosol inhaler dextroamphetamine-amphetamine .ROUTE 01/19/23 fluticasone propionate 50 intranasal 01/19/23 mcg/actuation nasal spray,suspension Previous Rx's Medication Instructions Recorded cephalexin 500 mg capsule 500 mg PO TID 7 days #21 caps 02/24/23 hydrocodone 5 mg-acetaminophen 325 1 tab PO Q6H PRN pain 5 days #20 02/24/23 mg tablet tabs ondansetron 4 mg disintegrating 4 mg PO Q6H PRN nausea and 02/24/23 tablet vomiting #20 tabs tamsulosin 0.4 mg capsule (Flomax) 0.4 mg PO DAILY #7 caps 02/24/23 Allergies Allergy/AdvReac Type Severity Reaction Status Date / Time desvenlafaxine [From Pristiq] Allergy Unknown Verified 03/29/23 04:57 keppra Allergy Unknown Uncoded 03/29/23 04:57 Review of Systems ROS Status of ROS unobtainable due to mental status PFSH [facility] Medical History (Updated 03/29/23 @ 06:45 by Ankush Stern MD) Anxiety ?F41.9 - Anxiety disorder, unspecified (ICD-10) Bipolar 1 disorder ?F31.9 - Bipolar disorder, unspecified (ICD-10) Depression ?F32.A - Depression, unspecified (ICD-10) Epilepsy ?G40.909 - Epilepsy, unspecified, not intractable, without status epilepticus (ICD-10) GERD (gastroesophageal reflux disease) ?K21.9 - Gastro-esophageal reflux disease without esophagitis (ICD-10) Insomnia ?G47.00 - Insomnia, unspecified (ICD-10) Migraine ?G43.909 - Migraine, unspecified, not intractable, without status migrainosus (ICD-10) HIMA (obstructive sleep apnea) ?G47.33 - Obstructive sleep apnea (adult) (pediatric) (ICD-10) PTSD (post-traumatic stress disorder) ?F43.10 - Post-traumatic stress disorder, unspecified (ICD-10) Respiratory failure requiring intubation ?J96.90 - Respiratory failure, unspecified, unspecified whether with hypoxia or hypercapnia (ICD-10) Suicidal ideation ?R45.851 - Suicidal ideations (ICD-10) Surgical History (Updated 01/19/23 @ 23:52 by Karli Aguirre) 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 ?Z96.89 - Presence of other specified functional implants (ICD-10) Social History Smoking status: Never smoker Exam Constitutional Vital Signs, click to edit/add: Last Vital Signs Temp 97.5 F L 03/29/23 04:58 Pulse 80 03/29/23 05:45 Resp 18 03/29/23 05:45 BP 153/94 H 03/29/23 05:45 Pulse Ox 96 03/29/23 05:45 O2 Del Method Nasal Cannula 03/29/23 05:15 O2 Flow Rate 1 03/29/23 05:15 Exam limitations: altered mental status General appearance: lethargic HENMT Other: small cut left scalp Eye Common normals: PERRL and conjunctivae normal Respiratory Common normals: normal respiratory effort and no use of accessory muscles Cardio Common normals: regular rate, regular rhythm, S1 normal heart sound and S2 normal heart sound GI Common normals: Normal to inspection, nondistended, normoactive bowel sounds present, soft to palpation and non-tender Extremity Other: no deformity. small cuts right leg Neuro Sensorium/orientation: somnolent Course Vital Signs Vital signs: Vital Signs Temperature 97.5 F L 03/29/23 04:58 Pulse Rate 75 03/29/23 04:58 Respiratory Rate 14 03/29/23 04:58 Blood Pressure 143/110 H 03/29/23 04:58 Pulse Oximetry 93 L 03/29/23 04:58 Oxygen Delivery Method Room Air 03/29/23 04:58 Temperature 97.5 F L 03/29/23 04:58 Pulse Rate 80 03/29/23 05:45 Respiratory Rate 18 03/29/23 05:45 Blood Pressure 153/94 H 03/29/23 05:45 Pulse Oximetry 96 03/29/23 05:45 Oxygen Delivery Method Nasal Cannula 03/29/23 05:15 Oxygen Delivery Flow Rate 1 03/29/23 05:15 MDM - Psych MDM Narrative Medical decision making narrative: patient presents after apparent suicide attempt. Overdose of Seroquel. Reportedly took #5 400 mg pills of Seroquel. Arrives somnolent and not able to answers questions when I arrived in the room. Has small cut left scalp and right leg. Neither will require repair. Poison control contacted and recommended 8 hours of observation. IV hep lock established and labs ordered. Reviewed his home meds and because he does have Vicodin on the list, Narcan was ordered, CT brain ordered as well. labs pending and patient will required continued observation. Care transferred to Dr Mancuso at change of shift Lab Data Labs: Lab Results 03/29/23 Range/Units 05:10 WBC 8.5 (4.0-11.0) 10^3/uL RBC 4.88 (4.70-6.10) 10^6/uL Hgb 14.3 (14.0-18.0) g/dL Hct 42.6 (42.0-54.0) % MCV 87.3 (80.0-94.0) fL MCH 29.3 (25.9-34.0) pg MCHC 33.6 (29.9-35.2) g/dL RDW 12.4 (11.0-15.0) % Plt Count 268 (150-450) 10^3/uL MPV 9.3 L (9.5-13.5) fL Neut % (Auto) 75.1 H (43.0-75.0) % Lymph % (Auto) 17.1 L (20.5-60.0) % [place] % (Auto) 5.9 (1.7-12.0) % Eos % (Auto) 0.8 L (0.9-7.0) % Baso % (Auto) 0.4 (0.2-2.0) % Neut # (Auto) 6.4 (1.4-6.5) 10^3/uL Lymph # (Auto) 1.5 (1.2-3.8) 10^3/uL [place] # (Auto) 0.5 (0.3-0.8) 10^3/uL Eos # (Auto) 0.1 (0.0-0.7) 10^3/uL Baso # (Auto) 0.0 (0.0-0.1) 10^3/uL Abs Immat Gran (auto) 0.06 H (0.00-0.03) 10^3/uL Imm/Tot Granulo (auto) 0.7 H (0.0-0.5) % Sodium 136 (136-145) mmol/L Potassium 3.3 L (3.5-5.1) mmol/L Chloride 100 (98-107) mmol/L Carbon Dioxide 26.1 (21.0-32.0) mmol/L Anion Gap 13.2 BUN 18.0 (7.0-18.0) mg/dL Creatinine 0.86 (0.70-1.30) mg/dL Est GFR ( Amer) >60 (>=60) Est GFR (Non-Af Amer) >60 (>=60) BUN/Creatinine Ratio 20.9 Glucose 196 H (74-106) mg/dL Calcium 9.1 (8.5-10.1) mg/dL Total Bilirubin 0.4 (0.2-1.0) mg/dL AST 24 (15-37) U/L ALT 46 (16-63) U/L Alkaline Phosphatase 52 (46-116) U/L Troponin I High Sens 41.7 (4.0-76.1) pg/mL Total Protein 7.3 (6.4-8.2) g/dL Albumin 3.8 (3.4-5.0) g/dL Globulin 3.5 g/dL Albumin/Globulin Ratio 1.1 Salicylates <2.8 (<=19.9) mg/dL Acetaminophen <2.0 L (10.0-30.0) ug/mL Ethanol Quant <3 mg/dL Imaging Data CT scan - head: Radiologist's impression: [place] [address] CT Scan Report Signed Patient: AMEYA MEZA MR#: [id number] : 1980 Acct:[id number] Age/Sex: 42 / M ADM Date: 03/29/23 Loc: ER Attending Dr: Ordering Physician: Ankush Stern Date of Service: 03/29/23 Procedure(s): CT head/brain wo con Accession Number(s): [id number] cc: Uriel Clements M.D.~ The [place] [id number] Patient Name: AMEYA MEZA MRN: [id number] date: 1980 Sex: M Assigned Patient Location: ER Current Patient Location: ER Accession/Order Number: [id number] Exam Date: 03/29/2023 05:40 Report Date: 03/29/2023 06:16 At the request of: ANKUSH STERN Procedure: CT head/brain wo con INDICATION: 42 years old; Male. Change in mental status. TECHNIQUE: CT Head (ax/cor/sag reformats). Ionizing radiation dose reduced via iterative reconstruction/FBP blend and body size kV/mA adjustment. Comparison: CT dated 12/05/2022. Motion artifacts degrade several images. FINDINGS: POSTOPERATIVE CHANGES: None. BRAIN PARENCHYMA: No focal lesions. No mass effect. No midline shift or herniation. No intraparenchymal or extra-axial hemorrhage. Normal hernandez/white differentiation. VENTRICLES/EXTRA-AXIAL SPACES: Normal for patient's age. SINUSES/MASTOIDS: The visualized sinuses are clear. Right frontal sinuses are hypoplastic. The maxillary sinuses are not entirely visible in this routine CT the head. Mastoids and middle ears are clear. MSK: No displaced or depressed calvarial fracture OTHER: No hyperdense intraluminal thrombus. CT/CT head/brain wo con IMPRESSION: 1. Allowing for some motion artifacts, no acute intracranial abnormality. No hemorrhage or mass effect. Electronically authenticated by: SCOTT ROUSSEAU Date: 03/29/2023 06:16 Dictated By: Scott Rousseau M.D. Signed By: 03/29/23618 DD/ 5 TD/TT: T Discharge Plan Discharge Chief Complaint: Psychiatric Symptoms Clinical Impression: Depression, Suicide attempt Prescriptions / Home Meds: No Action Phenergan 25 mg tablet 25 mg PO TID PRN (Reason: nausea and vomiting) Rx Instructions: TID for nausea rizatriptan [Maxalt-CLINICAL SPECIALIST MEDICAL DEVICE] 10 mg tablet,disintegrating See Rx Instructions .ROUTE .COMPLEX Rx Instructions: take 1 tab at onset of headache; if no relief may repeat 1 tab after at least 2 hrs; max = 3 tabs/24 hr Emgality Pen 120 mg/mL pen injector 120 mg SUBCUT .monthly quetiapine 400 mg tablet 400 mg PO DAILY Rx Instructions: at HS quetiapine 50 mg tablet 50 mg PO TID PRN (Reason: anxiety) lacosamide 100 mg tablet 100 mg PO Q12H clonazepam 2 mg tablet 2 mg PO TID cyproheptadine 4 mg tablet 4 mg PO Q12H sertraline 100 mg tablet 300 mg PO Q24H simvastatin 20 mg tablet 20 mg PO DAILY Rx Instructions: HS hydrocodone-acetaminophen 5-325 mg tablet 1 tab PO Q6H PRN (Reason: pain) 5 Days Qty: 20 0RF tamsulosin [Flomax] 0.4 mg capsule 0.4 mg PO DAILY Qty: 7 0RF ondansetron 4 mg tablet,disintegrating 4 mg PO Q6H PRN (Reason: nausea and vomiting) Qty: 20 0RF cephalexin 500 mg capsule 500 mg PO TID 7 Days Qty: 21 0RF albuterol sulfate 90 mcg/actuation HFA aerosol inhaler INHALATION fluticasone propionate 50 mcg/actuation spray,suspension INTRANASAL dextroamphetamine-amphetamine [Adderall] .ROUTE Referrals: Uriel Clements MD [Primary Care Provider] - 1 week
[2023-03-29 05:32] LABS: Basophils Percent Auto 0.4 % (0.2-2.0); Eosinophils Absolute Auto 0.1 10^3/uL (0.0-0.7); Eosinophils Percent Auto 0.8 % (0.9-7.0); Hematocrit 42.6 % (42.0-54.0); Hemoglobin 14.3 g/dL (14.0-18.0); Immature Granulocytes Abs Auto 0.06 10^3/uL (0.00-0.03); Immature Granulocytes Pct Auto 0.7 % (0.0-0.5); Lymphocytes Absolute Auto 1.5 10^3/uL (1.2-3.8); Lymphocytes Percent Auto 17.1 % (20.5-60.0); Mean Corpuscular HGB Conc 33.6 g/dL (29.9-35.2); Mean Corpuscular Hemoglobin 29.3 pg (25.9-34.0); Mean Corpuscular Volume 87.3 fL (80.0-94.0); Mean Platelet Volume 9.3 fL (9.5-13.5); Monocytes Absolute Auto 0.5 10^3/uL (0.3-0.8); Monocytes Percent Auto 5.9 % (1.7-12.0); Neutrophils Absolute Auto 6.4 10^3/uL (1.4-6.5); Neutrophils Percent Auto 75.1 % (43.0-75.0); Platelet Count 268 10^3/uL (150-450); Red Blood Count 4.88 10^6/uL (4.70-6.10); Red Cell Distribution Width 12.4 % (11.0-15.0); White Blood Count 8.5 10^3/uL (4.0-11.0)
--- NOTE | 2023-03-29 05:47 | ECG_ITS ---
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
[2023-03-29 05:53] LABS: Alanine Aminotransferase 46 U/L (16-63); Albumin Globulin Ratio 1.1; Albumin Level 3.8 g/dL (3.4-5.0); Alkaline Phosphatase 52 U/L (46-116); Anion Gap 13.2; Aspartate Amino Transferase 24 U/L (15-37); BUN Creatinine Ratio 20.9; Bilirubin Total 0.4 mg/dL (0.2-1.0); Calcium 9.1 mg/dL (8.5-10.1); Carbon Dioxide 26.1 mmol/L (21.0-32.0); Chloride 100 mmol/L (98-107); Estimated GFR (African America >60 (>=60); Estimated GFR (Non-African Ame >60 (>=60); Ethanol <3 mg/dL; Globulin 3.5 g/dL; Glucose 196 mg/dL (74-106); Potassium 3.3 mmol/L (3.5-5.1); Salicylate <2.8 mg/dL (<=19.9); Sodium 136 mmol/L (136-145); Total Protein 7.3 g/dL (6.4-8.2); Troponin I High Sensitivity 41.7 pg/mL (4.0-76.1)
[2023-03-29 05:56] LABS: Acetaminophen <2.0 ug/mL (10.0-30.0)
[2023-03-29] MEDS: 0.9 % SODIUM CHLORIDE 1,000 ML 1000 ML IV (06:24)
[2023-03-29] MEDS: NALOXONE HCL 2 MG/2 ML SYRINGE 4 MG IV (06:33)
[2023-03-29] MEDS: POTASSIUM CHLORIDE 10 MEQ ER TABLET 40 MEQ PO (11:12)
[2023-03-29 11:37] LABS: Amphetamine Screen Urine NEGATIVE (NEGATIVE); Barbiturates Screen Urine NEGATIVE (NEGATIVE); Benzodiazepines Screen Urine NEGATIVE (NEGATIVE); Buprenorphine Screen Urine NEGATIVE (NEGATIVE); Cannabinoid Screen Urine NEGATIVE (NEGATIVE); Cocaine Screen Urine NEGATIVE (NEGATIVE); Methadone Screen Urine NEGATIVE (NEGATIVE); Methamphetamines Screen Urine NEGATIVE (NEGATIVE); Opiate Screen Urine NEGATIVE (NEGATIVE); Oxycodone Screen Urine NEGATIVE (NEGATIVE); Phencyclidine Screen Urine NEGATIVE (NEGATIVE); Tricyclic Antidepressant Urine POSITIVE (NEGATIVE)
[2023-03-29] MEDS: ONDANSETRON PF 4 MG/2 ML VIAL IV (16:10)
== END 2023-03-29 16:26 | disposition home or self-care (01) ==
PROVIDERS: Internal Medicine; Emergency Provider Emergency Medicine; PCP Family Medicine
DX: T43.592A Poisoning by other antipsychotics and neuroleptics, intentional self-harm, initial encounter (principal); F31.9 Bipolar disorder, unspecified; F41.9 Anxiety disorder, unspecified; G40.909 Epilepsy, unspecified, not intractable, without status epilepticus; K21.9 Gastro-esophageal reflux disease without esophagitis; G47.00 Insomnia, unspecified; G43.909 Migraine, unspecified, not intractable, without status migrainosus; G47.33 Obstructive sleep apnea (adult) (pediatric); F43.10 Post-traumatic stress disorder, unspecified; Z96.89 Presence of other specified functional implants; Z79.899 Other long term (current) drug therapy
CPT/HCPCS: 36415; 70450; 80053; 80179; 80307; 80320; 80329; 84484; 85025; 93005; 96374; 96375; 99285

== ENCOUNTER 2023-05-05 12:02 | Outpatient (OUT) | payer MEDICARE, MEDICAID, SELFPAY ==
--- NOTE | 2023-05-05 | XR_ITS ---
The [address] [address] Patient Name: AMEYA MEZA MRN: [id number] date: 1980 Sex: M Assigned Patient Location: LAB Current Patient Location: LAB Accession/Order Number: [id number] Exam Date: 05/05/2023 12:30 Report Date: 05/05/2023 12:55 At the request of: ERLINDA NUNEZ Procedure: XR chest 2V EXAM: XR chest 2V HISTORY: hypertension I10 COMPARISON: Chest study dated 01/20/2023 TECHNIQUE: PA and lateral views of the chest were obtained. FINDINGS: Heart and mediastinal contours are unremarkable in appearance. No acute infiltrate or consolidations are seen. No obvious pneumothorax. Power pack and lead is noted on the left with leads directed superiorly. Bony structures appear grossly intact. XR/XR chest 2V IMPRESSION: No acute process seen in the chest. Electronically authenticated by: CASSANDRA LYMAN Date: 05/05/2023 12:55
[2023-05-05 12:43] LABS: Basophils Absolute Auto 0.1 10^3/uL (0.0-0.1); Basophils Percent Auto 0.7 % (0.2-2.0); Eosinophils Absolute Auto 0.2 10^3/uL (0.0-0.7); Eosinophils Percent Auto 2.2 % (0.9-7.0); Hematocrit 48.3 % (42.0-54.0); Hemoglobin 15.4 g/dL (14.0-18.0); Immature Granulocytes Abs Auto 0.01 10^3/uL (0.00-0.03); Immature Granulocytes Pct Auto 0.1 % (0.0-0.5); Lymphocytes Absolute Auto 1.8 10^3/uL (1.2-3.8); Lymphocytes Percent Auto 24.1 % (20.5-60.0); Mean Corpuscular HGB Conc 31.9 g/dL (29.9-35.2); Mean Corpuscular Hemoglobin 28.5 pg (25.9-34.0); Mean Corpuscular Volume 89.4 fL (80.0-94.0); Mean Platelet Volume 9.2 fL (9.5-13.5); Monocytes Absolute Auto 0.6 10^3/uL (0.3-0.8); Monocytes Percent Auto 8.7 % (1.7-12.0); Neutrophils Absolute Auto 4.7 10^3/uL (1.4-6.5); Neutrophils Percent Auto 64.2 % (43.0-75.0); Platelet Count 303 10^3/uL (150-450); Red Cell Distribution Width 12.1 % (11.0-15.0); White Blood Count 7.3 10^3/uL (4.0-11.0)
[2023-05-05 12:44] LABS: Estimated Average Glucose 111 mg/dL; Glycohemoglobin A1C 5.5 % (4.5-6.2)
[2023-05-05 13:33] LABS: Alanine Aminotransferase 29 U/L (16-63); Albumin Globulin Ratio 1.1; Albumin Level 3.9 g/dL (3.4-5.0); Alkaline Phosphatase 68 U/L (46-116); Anion Gap 12.4; Aspartate Amino Transferase 19 U/L (15-37); BUN Creatinine Ratio 18.4; Bilirubin Total 0.7 mg/dL (0.2-1.0); Calcium 8.6 mg/dL (8.5-10.1); Carbon Dioxide 30.1 mmol/L (21.0-32.0); Chloride 102 mmol/L (98-107); Estimated GFR (African America >60 (>=60); Estimated GFR (Non-African Ame >60 (>=60); Free T3 3.02 pg/mL (2.18-3.98); Globulin 3.4 g/dL; Glucose 104 mg/dL (74-106); Potassium 4.5 mmol/L (3.5-5.1); Sodium 140 mmol/L (136-145); Thyroid Stimulating Hormone 2.345 uIU/mL (0.358-3.740); Total Protein 7.3 g/dL (6.4-8.2)
== END 2023-05-05 12:03 | disposition home or self-care (01) ==
LOC: LAB 12:05
PROVIDERS: PCP Family Medicine; Visit Provider Family Medicine
DX: F41.9 Anxiety disorder, unspecified (principal); I10 Essential (primary) hypertension; R73.09 Other abnormal glucose
CPT/HCPCS: 36415; 71046; 80053; 83036; 84436; 84443; 84481; 85025

== ENCOUNTER 2023-05-12 12:29 | Outpatient (OUT) | payer MEDICARE, MEDICAID, SELFPAY ==
--- NOTE | 2023-05-12 12:47 | CA_ITS ---
[facility] Test Date: 2023-05-28 Pat Name: AMEYA MEZA Department: Room: - Gender: Male [employer]: : 1980 Requested By: ERLINDA NUNEZ Order Number: [id number] Reading MD: TATIANNA TRAVIS Interpretive Statements Predominant rhythm is sinus with average rate of 89 bpm Tachycardia (20% burden) - max rate of 164 bpm (sinus tachycardia) - longest episode of 2h 25min 15sec with rates between 116-133 bpm Bradycardia - min rate of 55 bpm - longest episode of 19sec with rates between 57-58 bpm Ventricular ectopy - 1 PVC Patient triggered events:none Impression: Predominant rhythm is sinus with average rate of 89 bpm Fastest rate of 164 bpm (sinus tachycardia) and slowest rate of 55 bpm 20% tachycardia burden during recording 1 PVC No pauses or blocks No atrial fibrillation Electronically Signed On 05-31-2023 9:47:34 EST by TATIANNA TRAVIS
== END 2023-05-12 12:30 | disposition home or self-care (01) ==
LOC: CARD 12:30
PROVIDERS: PCP Family Medicine; Visit Provider Family Medicine
DX: R42 Dizziness and giddiness (principal)
CPT/HCPCS: 93246

== ENCOUNTER 2023-05-20 12:54 | Outpatient (OUT) | payer MEDICARE, MEDICAID, SELFPAY ==
--- OUTSIDE RECORDS SUMMARY | 2023-05-20 12:58 | XMS_ITS | CCD ---
Author Name Unknown Address [address] [place] [address] Organization [facility] Care Team Providers Care Financial Quantitative Analyst Name Role Phone SIRISHAGREYSON YOUNGJAY Unavailable Unavailable Erlinda Nunez MD Primary Care Provider [phone] Erlinda Nunez MD Primary Care Provider [phone] Erlinda Nunez MD Primary Care Provider [phone] Erlinda Nunez MD Primary Care Provider [phone] DR ERLINDA LAU Primary Care Unavailable JARRED, KEVIN Admitting Unavailable JARRED, KEVIN Attending Unavailable JARRED, KEVIN Consulting Unavailable GIANNA GIMary Kay Consulting Unavailable CHARLY OTF Consulting Unavailable ENRIQUE Huerta, DR COFFEY Primary Care Unavailable JASMINE, DR TYLER Norton Admitting Unavailable JASMINE, DR TYLER Norton Attending Unavailable JASMINE, DR TYLER Norton Consulting Unavailable YAMILETH LEE Consulting Unavailable ENRIQUE ., DR COFFEY Primary Care Unavailable JARRED, KEVIN Admitting Unavailable WIL STERNYL Attending Unavailable JARRED, KEVIN Consulting Unavailable NADIRA MARTINI Consulting Unavailable ENRIQUE ., DR COFFEY Admitting Unavailable HOY ., DR OCFFEY Attending Unavailable HOY ., DR COFFEY Primary Care Unavailable HOY ., DR COFFEY Admitting Unavailable ALEXANDERY ., DR COFFEY Attending Unavailable ALEXANDERY ., DR COFFEY Primary Care Unavailable ENRIQUE ., DR COFFEY Admitting Unavailable ALEXANDERY ., DR COFFEY Attending Unavailable ENRIQUE ., DR COFFEY Primary Care Unavailable ENRIQUE ., DR COFFEY Consulting Unavailable EMILY, DR MIRIAM Norton Consulting Unavailable ENRIQUE Huerta, DR COFFEY Primary Care Unavailable JARRED, KEVIN Admitting Unavailable JARRED, KEVIN Attending Unavailable JARRED, KEVIN Consulting Unavailable DOMINIC ROMERO Consulting Unavailable Erlinda Nunez Primary Care Physician MD Erlinda Nunez Primary Care Provider DO Davis Mir Emergency Provider [phone] Davis Mir Attending Unavailable Hoy, Erlinda M Primary Care Unavailable Tupa, Davis M Admitting Unavailable Hoy, Erlinda M Primary Care Unavailable Tupa, Davis M Admitting Unavailable Tupa, Davis M Attending Unavailable BILLIE ALONSO M Attending Unavailable HOY, ERLINDA M Primary Care Unavailable KARI BECKER Referring Unavailable ALONSOBILLIE Attending Unavailable HOY, ERLINDA M Primary Care Unavailable HILLS, PAOLA D Attending Unavailable HILLS, PAOLA D Referring Unavailable HOY, ERLINDA M Primary Care Unavailable BILLIE ALONSO Attending Unavailable HOY, ERLINDA M Primary Care Unavailable MICHAEL CORDOBA Attending Unavailab LINO Will Attending Unavailable HOY, ERLINDA M Primary Care Unavailable HOY, ERLINDA M Primary Care Unavailable MICHAEL CORDOBA Attending Unavailab le HOY, ERLINDA M Primary Care Unavailable NADIRA PURDY Attending Unavailable HILLS, PAOLA Referring Unavailable HOY, ERLINDA M Primary Care Unavailable MICHAEL CORDOBA Attending Unavailab MELLY Funes Attending Unavailable SIEKEMELLY Referring Unavailable HOY, ERLINDA M Primary Care Unavailable HOY, ERLINDA M Primary Care Unavailable HILLS, PAOLA Referring Unavailable HOY, ERLINDA M Primary Care Unavailable NADIRA PURDY Attending Unavailable MARILU, PAOLA Referring Unavailable LINO MENDIOLA Attending Unavailable HOY, ERLINDA M Primary Care Unavailable LINO MENDIOLA Attending Unavailable HOY, ERLINDA M Primary Care Unavailable HOY, ERLINDA M Primary Care Unavailable MICHAEL CORDOBA Attending Unavailab le HOY, ERLINDA M Primary Care Unavailable ERVIN GRANT Attending Unavaila ble HOY, ERLINDA M Primary Care Unavailable NADIRA PURDY Attending Unavailable HOY, ERLINDA M Primary Care Unavailable HOY, ERLINDA M Primary Care Unavailable HOY, ERLINDA M Primary Care Unavailable NADIRA PURDY Attending Unavailable MICHAEL CORDOBA Referring Unavailab le HOY, ERLINDA M Primary Care Unavailable JAZMIN SKELTON Attending Unavailable HOY, ERLINDA M Primary Care Unavailable JOSI QUEEN Referring Unavailable HOY, ERLINDA M Primary Care Unavailable DETYAKOVINGJOSI Referring Unavailable HOY, ERLINDA M Primary Care Unavailable MYA TENA Referring GeovaniMICHAEL Schwarz Referring Unavailab ERLINDA Maciel Primary Care Unavailable JOSI QUEEN Attending Unavailable Virgil Dozier Attending Unavailable Nassar, Scott Reinoso Referring Unavailable Nassar, Scott Reinoso Attending Unavailable Nassar, Scott T Admitting Unavailable Nahed Doran Attending Unavailable Nahed Doran Attending Unavailable Nahed Doran Attending Unavailable Nassar, Scott T Referring Unavailable Nassar, Scott T Attending Unavailable Nassar, Scott T Admitting Unavailable Nahed Doran Attending Unavailable Nahed Doran Admitting Unavailable Issa Levy Attending Unavailable Allergies Allergy Classification Reported Allergen(s) Allergy Type Date of Onset Reaction(s) Facility (20 sources) Desvenlafaxine; Translations: [desvenlafaxine] Drug Allergy 4 Other: See Comments [facility] (20 sources) Ketorolac; Translations: [KETOROLAC TROMETHAMINE] Drug Allergy 7 Unknown [facility] (20 sources) levETIRAcetam; Translations: [levetiracetam] Drug Allergy 1 Other: See Comments, Unknown (qualifier value) [facility] (1 source) Acetaminophen / oxyCODONE Drug Allergy [facility] (3 sources) Desvenlafaxine; Translations: [Pristiq] Drug Allergy [facility] (2 sources) Ketorolac Drug Allergy 1 [facility] (3 sources) levETIRAcetam; Translations: [Keppra] Drug Allergy [facility] (1 source) [place] Drug Allergy [facility] (1 source) Desvenlafaxine Drug Allergy 3 [facility] (1 source) levETIRAcetam Drug Allergy 3 [facility] Medications Current Medications Medication Drug Class(es) Dates Sig (Normalized) Sig (Original) Albuterol Sulfate (Proair Hfa) 90 mcg/actuation HFA aerosol inhaler (1 source) Start: 05-28-2017 take 1 puff(s) by inhalation four times daily Albuterol Sulfate (Proair Hfa) 90 mcg/actuation HFA aerosol inhaler Active 1 - 2 PUFF INHALATION Four times daily May 28, 2017 1:00am benzocaine 15 mg / menthol 3.6 mg oral lozenge (20 sources) Standardized Chemical Allergen Start: 09-19-2022 Cepacol Sore Throat 15 mg-3.6 mg mucous membrane lozenge 1 lozenge(s), Oral, q2hr Sore throat, Refill(s) 0 Start Date: 09/19/22 Status: Ordered Start: 04-28-2022 benzocaine-men thol (CEPACOL) 15-3.6 mg lozg Use 1 Lozenge as instructed every 2 hours as needed. 30 Lozenge 0 04/28/2022 Active Start: 09-21-2020 benzocaine-men thol (CEPACOL) 15-3.6 mg lozg Use 1 Lozenge as instructed every 2 hours as needed. 30 Lozenge 0 09/21/2020 Active Comment on above: Use 1 Lozenge as ins tructed every 2 hours as needed. clonazePAM 2 mg oral tablet (20 sources) Benzodiazepine Start: 010 End: 023 take 1 tablet by mouth three times daily clonazePAM (KLONOPIN) 2 mg tablet Indications: Partial epilepsy with impairment of consciousness, intractable (HCC) Take 1 tablet by mouth three times daily for 180 days. 270 tablet 1 10/27/2022 04/25/2023 Active Comment on above: Take 1 tablet by [facility] three times daily for 180 days. Take one(1) tablet t hree times daily cyproheptadine hydrochloride 4 mg oral tablet (20 sources) Start: 023 cyproheptadine 4 mg Tab Refills(s) 0 Start Date: 03/04/23 Status: Ordered Start: 01-04-2016 End: 09-07-2018 take 4 mg by mouth twice daily Cyproheptadine Discontinued 4 MG PO Twice daily February 09, 2017 12:00am September 07, 2018 3:53pm Comment on above: Take 4 mg by mouth t wice daily. diclofenac sodium 0.01 mg/mg topical gel (4 sources) Nonsteroidal Anti-inflammatory Drug Start: 04-22-2023 Voltaren Gel 1% Gel 1 elijah, Topical, QID for pain, 100 gram, Refill(s) 0, [facility]/pharmacy #[id number], 178, cm, 04/22/23 21:32:00 EST, Height/Length Dosing, 96.4, kg, 04/22/23 21:32:00 EST, Weight Dosing Start Date: 04/22/23 Status: Ordered Start: 03-04-2023 diclofenac sod ium 75 mg Oral EC Tab Refills(s) 0 Start Date: 03/04/23 Status: Ordered fluticasone (20 sources) Corticosteroid Start: 09-19-2022 take 1 spray(s) nasal route once daily fluticasone nasal one spray, Nasal, Daily, Refill(s) 0, in each nostril, Allergy symptoms Start Date: 09/19/22 Status: Ordered take 1 spray(s) nasal route twic e daily fluticasone (FLONASE) 50 mcg/actuation nasal spray Use 1 [place] in each nostril twice daily. 0 Active Comment on above: Use 1 [place] in each nostril twice daily. indomethacin 75 mg extended release oral capsule (7 sources) Nonsteroidal Anti-inflammatory Drug Start: 12-17-19 End: 01-16-20 take 1 capsule by mouth twice daily at mealtime indomethacin ER 75 mg CR capsule Indications: Migraine without aura, intractable, with status migrainosus Take 1 capsule by mouth twice daily with meals. 60 capsule 0 12/16/2022 01/15/2023 Active Start: 12-12-2022 End: 12-16-2022 take 1 capsule by mouth twice daily at mealtime indomethacin (INDOCIN) 50 mg capsule Take 1 capsule by mouth twice daily with meals. 60 capsule 1 12/12/2022 12/16/2022 Discontinued Comment on above: Take 1 capsule by [facility] twice daily with meals. lacosamide 100 mg oral tablet (20 sources) Anti-epileptic Agent Start: 09-19-2022 take 100 mg by mouth three times daily lacosamide 100 mg, Oral, TID, Seizure Start Date: 09/19/22 Status: Ordered Start: 06-18-2021 End: 10-27-2023 take 1 tablet by mouth twice daily lacosamide (VIMPAT) 100 mg tab Indications: Partial epilepsy with impairment of consciousness, intractable (HCC) Take 1 tablet by mouth twice daily. 180 tablet 3 10/27/2022 10/27/2023 Active Start: 01-15-2017 take 1 tablet by gisella th once daily Lacosamide (Vimpat) 100 mg Tablet Active 300 MG PO Daily January 15, 2017 12:00am Comment on above: Take 1 tablet by gisella th twice daily for 180 days. Take 1 tablet by gisella th twice daily for 90 days. Take 1 tablet by gisella th twice daily. nadolol 80 mg oral tablet (20 sources) beta-Adrenergic Jeremías Start: 03-04-2023 nadolol 80 mg oral tablet Refills(s) 0 Start Date: 03/04/23 Status: Ordered Start: 08-12-2022 End: 11-10-2022 take 1 tablet by mouth once daily nadolol (CORGARD) 80 mg tablet Indications: Hypertension, essential Take 1 tablet by mouth once daily. 90 tablet 1 08/12/2022 Active Start: 02-17-2022 End: 05-18-2022 take 1 tablet by mouth once daily nadolol (CORGARD) 80 mg tablet Take 1 tablet by mouth once daily. 90 tablet 0 02/17/2022 Active Start: 2021 End: 12-31-2021 take 1 tablet by mouth once daily nadolol (CORGARD) 80 mg tablet Take 1 tablet by mouth once daily. 90 tablet 0 2021 Active Start: 06-19-2021 End: 09-17-2021 take 1 tablet by mouth once daily nadolol (CORGARD) 80 mg tablet Take 1 tablet by mouth once daily. 90 tablet 0 06/19/2021 Active Comment on above: Take 1 tablet by gisella th once daily. promethazine hydrochloride 25 mg oral tablet (20 sources) Phenothiazine Start: 12-12-2022 End: 03-26-2023 promethazine 25 mg Tab Refills(s) 0 Start Date: 03/04/23 Status: Ordered Start: 08-12-2022 End: 12-09-2022 take 1 tablet by mouth three times daily as needed for nausea promethazine (PHENERGAN) 25 mg tablet Indications: Chronic migraine without aura without status migrainosus, not intractable 1 po tid prn headache or nausea 90 tablet 3 08/12/2022 12/09/2022 Discontinued Start: 10-24-2020 take 1 tablet by gisella three times daily as needed for nausea promethazine (PHENERGAN) 25 mg tablet 1 po tid prn headache or nausea 90 tablet 3 10/24/2020 Active Comment on above: 1 po tid prn headach e or nausea 24 hr propranolol hydrochloride 120 mg extended release oral capsule (1 source) beta-Adrenergic Jeremías Start: 7 take 1 capsule by mouth once daily Propranolol (Inderal La) 120 mg Capsule,Extended Release 24 Hr Active 120 MG PO daily January 15, 2017 12:00am sertraline 100 mg oral tablet (20 sources) Serotonin Reuptake Inhibitor Start: 2 End: 4 take 3 tablets by mouth at bedtime sertraline 100 mg Tab 300 mg = 3 tab(s), Oral, Bedtime, Depression Start Date: 09/19/22 Status: Ordered Start: 02-02-2020 End: 10-06-2021 take 3 tablets by mouth once daily sertraline (ZOLOFT) 100 mg tablet Take 3 tablets by mouth once daily. 90 tablet 5 04/09/2021 10/06/2021 Active Start: 01-15-2017 take 300 mg by mouth once daily at bedtime Sertraline Active 300 MG PO Daily at bedtime January 15, 2017 12:00am Comment on above: Take 3 tablets by mo [facility] once daily. simvastatin 20 mg oral tablet (4 sources) HMG-CoA Reductase Inhibitor Start: 3 take 1 mg by mouth once daily in the evening simvastatin 20 mg Tab mg tab(s), Oral, qPM, Refills(s) 0 Start Date: 02/25/23 Status: Ordered Start: 01-15-2017 End: 09-07-2018 take 20 mg by mouth once daily in the evening Simvastatin Discontinued 20 MG PO Every evening January 15, 2017 12:00am September 07, 2018 3:53pm traMADol hydrochloride 50 mg oral tablet (1 source) Opioid Agonist Start: 04-22-2023 End: 04-25-2023 take 1 tablet by mouth every six hours as needed for pain traMADOL 50 mg Tab 50 mg = 1 tab(s), Oral, q6hr, PRN for pain, X 3 day(s), # 12 tab(s), Refills(s) 0, Pharmacy: [facility]/pharmacy #[id number], 178, cm, 04/22/23 21:32:00 EST, Height/Length Dosing, 96.4, kg, 04/22/23 21:32:00 EST, Weight Dosing Start Date: 04/22/23 Stop Date: 04/25/23 Status: Ordered Completed/Discontinued Medications Medication Drug Class(es) Dates Sig (Normalized) Sig (Original) acetaminophen 325 mg oral tablet (10 sources) Start: 09-21-2020 take 325-650 mg by mouth every four hours as needed acetaminophen (TYLENOL) 325 mg tablet Take 1-2 tablets by mouth every 4 hours as needed. 0 09/21/2020 Active Comment on above: Take 1-2 tablets by mouth every 4 hours as needed. [id number] 200 actuat albuterol 0.09 mg/actuat metered dose inhaler (20 sources) beta2-Adrenergic Agonist Start: 01-15-2017 End: 02-09-2017 take 1 puff(s) by inhalation every four hours Albuterol Sulfate Discontinued 1 PUFF INHALATION Q4H January 15, 2017 12:00am February 09, 2017 11:23pm Start: 01-04-2016 Pro-Air HFA CF C free 90 mcg/inh MDI 1 or 2 puffs, Inhalation, QID Shortness of breath or wheezing, Refill(s) 0 Start Date: 01/04/16 Status: Ordered albuterol HFA (P ROVENTIL HFA, VENTOLIN HFA) 90 mcg/actuation inhaler Inhale 1-2 Puffs as instructed as needed for Wheezing/Shortness of Breath. 0 Active Comment on above: Inhale 1-2 Puffs as instructed as needed for Wheezing/Shortness of Breath. amitriptyline hydrochloride 25 mg oral tablet (1 source) Tricyclic Antidepressant Start: 017 End: 019 take 25 mg by mouth twice daily Amitriptyline Discontinued 25 MG PO Twice daily 60 January 20, 2017 12:00am September 07, 2018 3:53pm amoxicillin 875 mg / clavulanate 125 mg oral tablet (1 source) Penicillin-class Antibacterial Start: 017 End: 018 take 875 mg by mouth twice daily Amoxicillin-Pot Clavulanate Discontinued 875 MG PO Twice daily February 09, 2017 12:00am May 28, 2017 2:33am carbamide peroxide 100 mg/ml mucous membrane topical solution (1 source) Start: End: Carbamide Peroxide (Gly-Oxide) 10 % Solution Discontinued 1 APPLIC MUCOUS MEM Bedtime January 15, 2017 12:00am February 09, 2017 11:23pm celecoxib 200 mg oral capsule (1 source) Nonsteroidal Anti-inflammatory Drug Start: End: Celecoxib Discontinued 200 MG PO 1-2 TIMES DAILY January 15, 2017 12:00am July 11, 2017 4:35am Zyrtec (20 sources) Histamine-1 Receptor Antagonist Start: 023 take 2 tablets by mouth once daily Zyrtec 10 mg, Oral, Daily, 1 or 2 tabs, Refills(s) 0, Allergy symptoms Start Date: 09/19/22 Status: Ordered Cetirizine 10 mg cap Take 1-2 tablets by mouth as needed. 0 Active Comment on above: Take 1-2 tablets by mouth as needed. chlorhexidine gluconate 1.2 mg/ml mouthwash (1 source) Start: 01-15-2017 End: 02-09-2017 Chlorhexidine Gluconate Discontinued 15 ML BUCCAL Bedtime January 15, 2017 12:00am February 09, 2017 11:23pm CPAP (20 sources) Start: 06-20-2020 CPAP Indications: Bipolar II disorder (HCC) , Psychophysiologic insomnia , HIMA (obstructive sleep apnea) Change the pressure of autoBipap with EPAP 5-15 mh2o and PS 4-8cmh2O. His DME company is [employer] new mask to fit patient preference, ramp, humidification and unlimited supplies Please send us machine download in 1 month 1 Device 0 06/20/2020 Active Start: 06-20-2020 CPAP Indicatio ns: HIMA (obstructive sleep apnea) Please send us machine download in 1 month 1 Device 0 06/20/2020 Active Comment on above: Change the pressure of autoBipap with EPAP 5-15 mh2o and PS 4-8cmh2O. His DME company is [employer] , new mask to fit patient preference, ramp, humidification and unlimited supplies Please send us machine download in 1 month Please send us [employer] download in 1 month cyclobenzaprine hydrochloride 10 mg oral tablet (1 source) Muscle Relaxant Start: 2016 End: 2017 take 10 mg by mouth three times daily Cyclobenzaprine Discontinued 10 MG PO Three times daily February 09, 2017 12:00am May 28, 2017 2:33am docusate sodium 100 mg oral capsule (10 sources) Start: 2020 take 1 capsule by mouth every twelve hours as needed docusate sodium (COLACE) 100 mg capsule Take 1 capsule by mouth twice daily as needed for Constipation. 60 capsule 0 09/21/2020 Active Comment on above: Take 1 capsule by [facility] twice daily as needed for Constipation. 1 ml erenumab-aooe 140 mg/ml auto-injector (5 sources) Start: 2022 inject 1 mL by subcutaneous injection every month erenumab-aooe 140 mg/mL subcutaneous auto-injector (AIMOVIG) Indications: Chronic migraine without aura without status migrainosus, not intractable Inject 1 mL subcutaneously once every month. 1 mL 5 02/27/2023 Active Start: 01-29-2023 End: 02-28-2023 inject 1 mL by subcutaneous injection every month erenumab-aooe (AIMOVIG AUTOINJECTOR) 70 mg/mL auto-injector Indications: Chronic migraine without aura without status migrainosus, not intractable Inject 1 mL subcutaneously once every month. 1 mL 5 01/29/2023 02/27/2023 Discontinued Comment on above: Inject 1 mL subcutan eously once every month. famotidine 20 mg oral tablet (1 source) Histamine-2 Receptor Antagonist Start : 05-28 End: 09-07 take 1 tablet by mouth twice daily Famotidine (Pepcid) 20 mg tablet Discontinued 20 MG PO Twice daily May 28, 2017 1:00am September 07, 2018 3:53pm 1 ml galcanezumab-gnlm 120 mg/ml auto-injector (13 sources) Start : 08-12 End: 01-29 inject 1 mL by subcutaneous injection every month EMGALITY PEN 120 mg/mL pen Indications: Chronic migraine without aura without status migrainosus, not intractable INJECT 1 MILLILITER SUBCUTANEOUSLY ONCE EVERY MONTH. DO NOT SHAKE. 1 mL 5 01/09/2023 01/29/2023 Discontinued Comment on above: Inject 1 mL subcutan eously once every month. Do not shake. INJECT 1 MILLILITER SUBCUTANEOUSLY ONCE EVERY MONTH. DO NOT SHAKE. ibuprofen 800 mg oral tablet (1 source) Nonsteroidal Anti-inflammatory Drug Start : 05-28 End: 07-11 take 800 mg by mouth three times daily Ibuprofen Discontinued 800 MG PO Three times daily May 28, 2017 1:00am July 11, 2017 2:48am levoFLOXacin 500 mg oral tablet (1 source) Quinolone Antimicrobial Start : 05-28 End: 07-11 take 500 mg by mouth once daily Levofloxacin Discontinued 500 MG PO Daily May 28, 2017 1:00am July 11, 2017 2:49am LORazepam 1 mg oral tablet (20 sources) Benzodiazepine Start : 03-20 End: 08-15 LORazepam (ATIVAN) 1 mg tablet Indications: Epilepsy with altered consciousness without intractable epilepsy (HCC) Take 1 tablet by mouth as needed (for seizure lasting >3 minutes. Max 2 doses in 24 hours.) for up to 180 days. 10 tablet 1 09/21/2020 Active Comment on above: Take 1 tablet by gisella th as needed (for seizure lasting >3 minutes. Max 2 doses in 24 hours.) for up to 180 days. methylPREDNISolone (2 sources) Corticosteroid Start : 12-16 End: 12-21 methylPREDNISolone (MEDROL, TORY,) 4 mg Dose-Pack Indications: Migraine without aura, intractable, with status migrainosus Use as directed. 21 tablet 1 12/16/2022 12/21/2022 Start: 12-16-2022 End: 12-21-2022 methylPREDNISolone (MEDROL, TORY,) 4 mg Dose-Pack Indications: Migraine without aura, intractable, with status migrainosus Use as directed. 21 tablet 1 12/16/2022 12/21/2022 Active Comment on above: Use as directed. omeprazole 40 mg delayed release oral capsule (2 sources) Proton Pump Inhibitor Start: 02-09-2017 End: 05-28-2017 take 40 mg by mouth once daily Omeprazole Discontinued 40 MG PO Daily February 09, 2017 12:00am May 28, 2017 2:33am Start: 01-15-2017 End: 02-09-2017 take 40 mg by mouth twice daily Omeprazole Discontinued 40 MG PO Twice daily January 15, 2017 12:00am February 09, 2017 11:19pm pregabalin 300 mg oral capsu le (2 sources) Start: 02-09-2017 End: 02-09-2017 Pregabalin (Lyrica) 300 mg Capsule Discontinued February 09, 2017 12:00am February 09, 2017 11:20pm Start: 01-15-2017 End: 09-07-2018 take 1 capsule by mouth twice daily Pregabalin (Lyrica) 300 mg Capsule Discontinued 300 MG PO Twice daily January 15, 2017 12:00am September 07, 2018 3:53pm QUEtiapine 50 mg oral tablet (20 sources) Atypical Antipsychotic Start: 01-26-2023 End: 05-01-2023 take 1 tablet by mouth once daily at bedtime QUEtiapine (SEROQUEL) 300 mg tablet TAKE 1 TABLET BY MOUTH DAILY AT BEDTIME. 30 tablet 0 04/01/2023 05/01/2023 Active Start: 02-07-2022 End: 03-10-2023 take 1 tablet by mouth once daily at bedtime QUEtiapine (SEROQUEL) 400 mg tablet Take 1 tablet by mouth daily at bedtime. 30 tablet 5 07/17/2022 12/10/2022 Discontinued Start: 10-25-2021 End: 02-24-2023 take 50 mg by mouth three times daily as needed for anxiety quetiapine 50 mg, Oral, TID, PRN Anxiety, Refills(s) 0 Start Date: 09/19/22 Status: Ordered Start: 10-25-2021 End: 01-23-2022 take 1 tablet by mouth twice daily QUEtiapine (SEROQUEL) 300 mg tablet Take 1 tablet by mouth twice daily. 60 tablet 2 10/25/2021 01/23/2022 Active Start: 10-25-2021 take 1 tablet by gisella th twice daily QUEtiapine (SEROQUEL) 100 mg tablet Take 1 tablet by mouth twice daily. 60 tablet 0 10/25/2021 Active Start: 08-23-2021 End: 08-15-2022 take 1 tablet by mouth once daily at bedtime QUEtiapine (SEROQUEL) 100 mg tablet Take 1 tablet by mouth daily at bedtime. Take in addition to 300 mg tab for total of 400 mg at bedtime 30 tablet 2 08/23/2021 Active Start: 04-09-2021 End: 08-23-2021 take 1 tablet by mouth once daily as needed for anxiety QUEtiapine (SEROQUEL) 50 mg tablet Take 1 tablet by mouth once daily as needed (Anxiety). 30 tablet 2 04/09/2021 08/23/2021 Discontinued Start: 04-09-2021 End: 10-06-2021 take 1 tablet by mouth once daily at bedtime QUEtiapine (SEROQUEL) 300 mg tablet Take 1 tablet by mouth daily at bedtime. 30 tablet 5 04/09/2021 Active Start: 02-09-2017 End: 07-11-2017 take 1 tablet by mouth once daily at bedtime Quetiapine (Seroquel) 50 mg Tablet Discontinued 50 MG PO Daily at bedtime February 09, 2017 12:00am July 11, 2017 2:46am Start: 01-15-2017 Quetiapine Act patricia 300 MG PO Bedtime January 15, 2017 12:00am 250 mg PO QHS, may take second 50mg if not asleep 40-45 minutes. Comment on above: Take 1 tablet by gisella th daily at bedtime. Take 1 tablet by gisella th once daily as needed (Anxiety). Take 1 tablet by gisella th daily at bedtime. Take in addition to 300 mg tab for total of 400 mg at bedtime Take 1 tablet by gisella th three times daily as needed (Anxiety). Take 1 tablet by gisella th twice daily. take 1 tablet by gisella th three times daily as needed for anxiety rizatriptan 10 mg disintegrating oral tablet (19 sources) Serotonin-1b and Serotonin-1d Receptor Agonist Start: 12-13-19 take 1 tablet by mouth every two hours as needed for headache rizatriptan (MAXALT-INTERACTIVE ART DIRECTOR) 10 mg disintegrating tablet Indications: Chronic migraine without aura without status migrainosus, not intractable Take 1 tablet by mouth as needed (at onset of headache. May repeat after 2 hours.). Do not exceed 30 mg per day. 9 tablet 5 12/12/2022 Active Start: 09-19-2022 rizatriptan 10 mg, Oral, Daily, PRN Migraine headache, may repeat dose once in 2 hours, Refills(s) 0, Migraine headache Start Date: 09/19/22 Status: Ordered Start: 08-12-2022 End: 12-09-2022 take 1 tablet by mouth every two hours as needed for headache rizatriptan (MAXALT-INTERACTIVE ART DIRECTOR) 10 mg disintegrating tablet Indications: Chronic migraine without aura without status migrainosus, not intractable Take 1 tablet by mouth as needed (at onset of headache. May repeat after 2 hours.). Do not exceed 30 mg per day. 9 tablet 5 08/12/2022 12/09/2022 Discontinued Comment on above: Take 1 tablet by gisella th as needed (at onset of headache. May repeat after 2 hours.). Do not exceed 30 mg per day. Sumatriptan (20 sources) Serotonin-1b and Serotonin-1d Receptor Agonist Start: 09-19-2022 take 1 dose by mouth every two hours as needed sumatriptan 100 mg, Oral, Once, PRN Migraine headache, may repeat dose in 2 hours if needed, Refills(s) 0, Migraine headache Start Date: 09/19/22 Status: Ordered Start: 09-07-2018 Sumatriptan Brooks ccinate (Imitrex) 50 mg Tablet Active 50 MG PO EVERY 2-4 HOURS September 07, 2018 12:00am SUMAtriptan (IMI TREX) 100 mg tablet Take 100 mg by mouth as needed for Migraine Headache (see administration instructions). 0 Active Comment on above: Take 100 mg by mouth as needed for Migraine Headache (see administration instructions). tiZANidine 4 mg oral capsule (2 sources) Central alpha-2 Adrenergic Agonist Start: 05-28-2017 End: 09-07-2018 Tizanidine (Zanaflex) 4 mg Capsule Discontinued 8 MG PO Daily at bedtime May 28, 2017 1:00am September 07, 2018 3:53pm Start: 01-15-2017 End: 02-09-2017 take 4 mg by mouth at bedtime Tizanidine Discontinued 4 MG PO Bedtime January 15, 2017 12:00am February 09, 2017 11:22pm Problems Active Problems Problem Classification Problem Date Documented Date Episodic/Chronic Anxiety disorders (20 sources) Mixed anxiety and depressive disorder; Translations: [Other specified anxiety disorders] Onset: 4 04-07-2016 Chronic Attention-deficit, conduct, and disruptive behavior disorders (15 sources) Attention deficit hyperactivity disorder 10-26-2009 Chronic Calculus of urinary tract (4 sources) History of calculus of kidney; Translations: [Personal history of urinary calculi] Onset: 3 Episodic Cardiac dysrhythmias (1 source) Supraventricular tachycardia; Translations: [SUPRAVENTRICULAR TACHYCARDIA] Onset: 2 Chronic Cardiac dysrhythmias (15 sources) Tachyarrhythmia ; Translations: [Tachycardia] 07-29-2013 Episodic Disorders of lipid metabolism (1 source) Pure hypercholesterolemia, unspecified; Translations: [PURE HYPERCHOLESTEROLEMIA UNSPEC] Onset: 3 Chronic Disorders of teeth and jaw (1 source) Periapical abscess without sinus; Translations: [PERIAPICAL ABSCESS WITHOUT SINUS] Onset: 3 Episodic E Codes: Fall (2 sources) Fall (on) (from) other stairs and steps, initial encounter; Translations: [Unspecified fall, initial encounter] Onset: 2 Episodic Epilepsy; convulsions (20 sources) Partial epilepsy with impairment of consciousness; Translations: [Localization-related (focal) (partial) symptomatic epilepsy and epileptic syndromes with complex partial seizures, intractable, without status epilepticus] Onset: 5 Chronic Comment on above: epilepsy with altere d consciousness without intractable epilepsy partial epilepsy wit h impairment of consciousness intractable Epilepsy; convulsions (10 sources) Seizure 11-03-2013 Episodic Comment on above: complex partial seiz ures evolving to generalized tonic-clonic seizures Esophageal disorders (20 sources) Gastroesophageal reflux disease without esophagitis; Translations: [Gastro-esophageal reflux disease without esophagitis] Onset: 8 02-03-2018 Chronic Essential hypertension (1 source) Essential (primary) hypertension; Translations: [Hypertension, essential] Onset: 3 Chronic Genitourinary symptoms and ill-defined conditions (10 sources) Blood in urine; Translations: [Gross hematuria] Onset: 3 Episodic Headache; including migraine (18 sources) Migraine; Translations: [Migraine without aura, not refractory ] Onset: 3 07-29-2013 Chronic Headache; including migraine (1 source) Headache; Translations: [Chronic nonintractable headache, unspecified headache type] Episodic Joint disorders and dislocations; trauma-related (1 source) Tear of medial meniscus of knee; Translations: [Other tear of medial meniscus, current injury, left knee, initial encounter] Onset: 3 Episodic Miscellaneous mental health disorders (20 sources) Psychophysiologic insomnia; Translations: [Psychophysiologic insomnia] Onset: 1 06-20-2020 Chronic Mood disorders (20 sources) Recurrent major depression in partial remission; Translations: [Major depressive disorder, recurrent, in partial remission] Onset: 7 Chronic Nonspecific chest pain (7 sources) Chest pain, unspecified; Translations: [Other chest pain] Onset: 2 Episodic Occlusion or stenosis of precerebral arteries (4 sources) Occlusion and stenosis of bilateral carotid arteries; Translations: [OCCLUSION AND STENOS SEA CAROTID ART] Onset: 2 Chronic Other aftercare (1 source) Other intermediate accountant (current) drug therapy; Translations: [OTH CORRECTION CURRENT DRUG THERAPY] Onset: 3 Episodic Other diseases of kidney and ureters (1 source) Urinary tract obstruction; Translations: [Hydronephrosis with renal and ureteral calculous obstruction] Onset: 3 Episodic Other lower respiratory disease (5 sources) Apnea 12-29-2013 Episodic Other nervous system disorders (1 source) Paresthesia; Translations: [Paresthesia of skin] 09-07-2018 Episodic Other nervous system disorders (1 source) Paresthesia of skin; Translations: [Paresthesia of skin] Onset: 3 Episodic Other nervous system disorders (1 source) Other acute postprocedural pain; Translations: [Other acute postprocedural pain] Onset: 3 Episodic Other non-traumatic joint disorders (1 source) Pain in left knee; Translations: [Pain of left knee joint] Onset: 3 Episodic Other nutritional; endocrine; and metabolic disorders (20 sources) Obese class I; Translations: [Obesity, unspecified] Onset: 8 11-24-2017 Chronic Other nutritional; endocrine; and metabolic disorders (5 sources) Obesity 09-19-2022 Chronic Residual codes; unclassified (20 sources) Past history of procedure; Translations: [Presence of other specified functional implants] Onset: 9 12-20-2018 Chronic Residual codes; unclassified (20 sources) Obstructive sleep apnea syndrome; Translations: [Obstructive sleep apnea (adult) (pediatric)] Onset: 1 06-20-2020 Chronic Residual codes; unclassified (1 source) Sleep apnea, unspecified; Translations: [SLEEP APNEA UNSPECIFIED] Onset: 2 Chronic Residual codes; unclassified (2 sources) Presence of other specified functional implants; Translations: [PRESENCE OTHER SPEC FUNC IMPLANTS] Onset: 9 Chronic Residual codes; unclassified (5 sources) Sleep apnea 09-19-2022 Chronic Comment on above: uses Bipap Residual codes; unclassified (2 sources) Altered mental status; Translations: [Altered mental status, unspecified] 02-10-2017 Episodic Residual codes; unclassified (1 source) H/O: Disorder; Translations: [Personal history of other specified conditions] Onset: 3 Episodic Residual codes; unclassified (1 source) Family history of kidney disease; Translations: [Family history of disorders of kidney and ureter] Onset: 3 Episodic Residual codes; unclassified (3 sources) Family history of renal stone 03-04-2023 Episodic Respiratory failure; insufficiency; arrest (adult) (20 sources) Respiratory failure; Translations: [Respiratory failure, unspecified, unspecified whether with hypoxia or hypercapnia] Onset: 6 04-07-2016 Episodic Comment on above: respiratory failure requiring intubation after suicide attempt in 2016 Spondylosis; intervertebral disc disorders; other back problems (1 source) Tenderness of neck; Translations: [Cervicalgia] Episodic Sprains and strains (2 sources) Strain of unspecified muscle, fascia and tendon at shoulder and upper arm level, right arm, initial encounter; Translations: [Sprain of unspecified site of left knee, initial encounter] Onset: 7 Episodic Substance-related disorders (4 sources) Smoker 09-21-2022 Chronic Comment on above: Added secondary to d ocumentation in Social History. Suicide and intentional self-inflicted injury (6 sources) Suicide attempt ; Translations: [Suicidal thoughts] 09-19-2022 Episodic Comment on above: 2016 Superficial injury; contusion (3 sources) Contusion of lower back and pelvis, initial encounter; Translations: [Contusion of other part of head, initial encounter] Onset: 2 Episodic Unclassified (2 sources) LOW BACK PAIN, UNSPECIFIED; Translations: [LOW BACK PAIN, UNSPECIFIED] Onset: 3 Unclassified (1 source) CONTACT W/AND (SUSP) EXPOS COVID-19; Translations: [CONTACT W/AND (SUSP) EXPOS COVID-19] Onset: 2 Unclassified (5 sources) vagel nerve stimulator 05-23-2010 Unclassified (3 sources) Obstructive hydronephrosis 02-25-2023 Unclassified (1 source) Dx: Left knee pain, unspecified chronicity (M25.562) Onset: 3 Unclassified (1 source) No-show for appointment; Translations: [No-show for appointment] Onset: 3 Past or Other Problems Problem Classification Problem Date Documented Date Episodic/Chronic Diabetes mellitus without complication (1 source) Other abnormal glucose; Translations: [OTHER ABNORMAL GLUCOSE] Onset: 10-01-2021 Episodic Other connective tissue disease (3 sources) Pain in left upper arm; Translations: [PAIN IN LEFT UPPER ARM] Onset: 09-14-2021 Episodic Other nervous system disorders (20 sources) Acute postoperative pain; Translations: [Other acute postprocedural pain] Onset: 09-21-2020 09-21-2020 Episodic Other screening for suspected conditions (not mental disorders or infectious disease) (1 source) Encounter for screening for malignant neoplasm of prostate; Translations: [ENC SCREEN MALIG NEOPLASM PROSTATE] Onset: 10-01-2021 Episodic Residual codes; unclassified (1 source) Presence of other specified devices; Translations: [PRESENCE OF OTHER SPECIFIED DEVICES] Onset: 01-07-2022 Episodic Screening and history of mental health and substance abuse codes (20 sources) H/O: attempted suicide; Translations: [Hx of suicide attempt] Onset: 04-07-2016 04-07-2016 Episodic Unclassified (1 source) LOW BACK PAIN, UNSPECIFIED; Translations: [LOW BACK PAIN, UNSPECIFIED] Onset: 07-28-2022 Results Test Name Value Interpretation Reference Range Facility HISTORY PHYSICALon 3 HISTORY PHYSICAL HNO ID: [id number] Author: Josi Queen PA-C Service: ? Author Type: Physician Corporate Trust Officer Type: HANDP Filed: 05/12/2023 11:38 AM Note Text: PS NEW - PSYCHIATRIC ASSESSMENT INTENSIVE OUTPATIENT PROGRAM Patient was seen for an initial evaluation. All information is from Patient report except when noted. This evaluation is NOT intended for forensic, disability or child custody purposes. With the patient consent, visit was performed virtually. This virtual visit was performed using [employer] Video Visit. It required patient-provider interaction for the medical decision making as documented below. Persons present: patient and ELIJAH provider. The patient or the patient's office services representative consented to this virtual encounter. I have communicated my name and active licensure. The patient's identity and physical location were verified at the time of this visit. Either the patient or their legal office services representative has been informed of the risks and benefits of -- and alternatives to -- treatment through a remote evaluation and consents to proceed with the evaluation remotely. 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 HPI: Bishnu Coles is a 42 year old Single male with a past history of depression, bipolar disorder, PTSD, anxiety, and ADHD who presents for admission to the [facility] IOP program. Bishnu reports worsening depressive symptoms with suicidal attempt in Mar 2023, without hospitalization. Pt states he had recently broken up with his girlfriend because of my mental health not being well . He states I took a bunch of medication, the Seroquel. He told his sister but did not seek out medical care following the attempt. Bishnu reports that one week after the attempt, [place] sat in [place] to think. He states, I wanted to distract my mind and get away from anything that I could use, because I was starting to feel suicidal again but didn't want it. So it helped me to stay calm. He states his sister sent the police looking for him, but that after talking with them they determined he was not suicidal and took him home. At this time, Bishnu denies current suicidal thoughts, intent or plan. He states, I've had a lot of thoughts about how I could have done stuff differently. But not suicidal thoughts. He does report a history of 4 suicidal attempts via OD with three resulting in hospitalization in the last 7 years. Currently, he reports using writing as a coping mechanism for suicidal thoughts, stating I do a lot of writing to get stuff down and out. It usually helps. He also reports using the [employer] system for medication dispensing so that he cannot freely access his medications, and his medications are now being shipped to his sister's house for his safety. Bishnu reports daily depressed moods that impact his ability to focus, complete tasks and find motivation. He states, I have a lot of emotional breakdowns, like crying a lot, even at work sometimes. He also states he has lost interest in his hobbies, including coloring, wood working, maintaining a fish tank, reading, and playing computer games. He states, I haven't touched that stuff in I don't know how long. He does state that he believes his epilepsy plays a guerrero role in his depression, stating my moods are a symptom of the epilepsy. I get really made and irritated that my memory is so bad because of it. One big thing that triggers it is stress, but dealing with all this stuff is very stressful. I am very forgetful at home, which I think is part of it too. Bishnu states his most bothersome symptoms include being impatient, and feeling rage. He reports triggers, including when I know I have something but can't find it. When I am driving and someone in front of me is not going the speed limit, or someone who is riding my tail. Just dealing with a lot of stress from Social Security and Medicaid too. They only want to do things on their time. Since starting Latuda with his outpatient provider, Bishnu states he does notice some improvement, stating feeling more calm and less angered on the Latuda. Even my sister and my nephew have noticed because I am more patient, or not as bad driving to work. Bishnu does report history of Bipolar disorder, and reports feeling manic every couple of weeks or so, maybe not every month though. He reports periods of multiple days, like 3 or 4, maybe 5 in which he gets less than 3 hours of sleep. He states that during this time, I am doing a lot of things. Able to go to work for long shifts, come home and get things done around the house. It usually happens when I am dealing with a bunch of stuff in my life, really dealing with stress. Then I don't sleep, I feel restless, distracte (more content not included)... Normal [facility] CNOVon 05-08-2023 CNOV Office Visit (NEUSES ) BISHNU COLES ([id number]) 1980 M Date Time Provider Department 05/08/23 3:10 PM NADIRA PURDY During your visit today, we recorded the following information about you: Nadira Purdy APRN.CNP 05/08/2023 4:28 PM Signed Patient has returned from MRI. VNS output current reset to 1.625. VNS magnet current reset to 1.875. Patient tolerated well with minimal hoarseness and no cough. Nadira Purdy APRN.ENZO Referring Provider: PAOLA MICHEL [[id number]] Allergies As of Date: 05/08/2023 Noted Allergy Reaction KEPPRA (LEVETIRACETAM) 07/31/2010 14 - Other: See Comments Comments: Increases his ADHD KETOROLAC TROMETHAMINE 09/14/2016 16 - Unknown Comments: unknown PRISTIQ (DESVENLAFAXINE) 01/12/2014 14 - Other: See Comments Comments: sz Date Reviewed: 05/08/2023 Reviewed by: Allie Prado OCCA - Fully Assessed Reason for Visit: Established Patient [175] Primary Visit Diagnosis:Partial epilepsy with impairment of consciousness, intractable (HCC) [G40.219] Other Visit Diagnosis: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 [Z96.89] Prescriptions as of 05/08/2023 - lurasidone (LATUDA) 40 mg tablet Take 1 tablet by mouth daily with dinner. - QUEtiapine (SEROQUEL) 200 mg tablet Take 1 tablet by mouth daily at bedtime. - lacosamide (VIMPAT) 100 mg tab Take 1 tablet by mouth two times a day. - clonazePAM (KLONOPIN) 2 mg tablet Take one(1) tablet three times daily. - promethazine (PHENERGAN) 25 mg tablet 1 po tid prn headache or nausea - erenumab-aooe 140 mg/mL subcutaneous auto-injector (AIMOVIG) Inject 1 mL subcutaneously once every month. - QUEtiapine (SEROQUEL) 50 mg tablet take 1 tablet by mouth three times daily as needed for anxiety - rizatriptan (MAXALT-INTERACTIVE ART DIRECTOR) 10 mg disintegrating tablet Take 1 tablet by mouth as needed (at onset of headache. May repeat after 2 hours.). Do not exceed 30 mg per day. - sertraline (ZOLOFT) 100 mg tablet Take 3 tablets by mouth once daily. - nadolol (CORGARD) 80 mg tablet Take 1 tablet by mouth once daily. - benzocaine-menthol (CEPACOL) 15-3.6 mg lozg Use 1 Lozenge as instructed every 2 hours as needed. - LORazepam (ATIVAN) 1 mg tablet Take 1 tablet by mouth as needed (for seizure lasting >3 minutes. Max 2 doses in 24 hours.) for up to 180 days. - CPAP Change the pressure of autoBipap with EPAP 5-15 mh2o and PS 4-8cmh2O. His DME company is [employer] , new mask to fit patient preference, ramp, humidification and unlimited supplies Please send us machine download in 1 month - CPAP Please send us machine download in 1 month - LORazepam (ATIVAN) 1 mg tablet Take 1 tablet by mouth as needed (for seizure lasting >3 minutes. Max 2 doses in 24 hours.) for up to 180 days. - Cetirizine 10 mg cap Take 1-2 tablets by mouth as needed. - fluticasone (FLONASE) 50 mcg/actuation nasal spray Use 1 [place] in each nostril twice daily. - albuterol HFA (PROVENTIL HFA, VENTOLIN HFA) 90 mcg/actuation inhaler Inhale 1-2 Puffs as instructed as needed for Wheezing/Shortness of Breath. Problem List As Of Date 05/08/2023 Noted Resolved Epilepsy (HCC) [G40.909] 06/18/2004 Epilepsy with altered consciousness without int*07/31/2010 Depression with anxiety [F41.8] 01/12/2014 Respiratory failure requiring intubation (HCC) *04/07/2016 Acute respiratory failure (HCC) [J96.00] 04/07/2016 03/26/2019 Hx of suicide attempt [Z91.51] 04/07/2016 Bipolar II disorder (HCC) [F31.81] 07/02/2016 Obesity, Class I, BMI 30-34.9 [E66.9] 11/24/2017 Partial epilepsy with impairment of consciousne*01/12/2018 Gastroesophageal reflux disease without esophag*02/03/2018 S/P placement of VNS (vagus nerve stimulation) *12/20/2018 Psychophysiologic insomnia [F51.04] 06/20/2020 HIMA (obstructive sleep apnea) [G47.33] 06/20/2020 Generalized epilepsy (HCC) [G40.309] 09/20/2020 Acute postoperative pain [G89.18] 09/21/2020 Complex partial seizures evolving to generalize*02/12/2021 Recurrent major depression in partial remission*09/02/2021 Migraine without aura, intractable, with status*12/22/2022 Encounter Status:Closed by NADIRA PURDY on 05/08/23 [facility] Office Visit (MONIE ) BISHNU COLES ([id number]) 1980 M Date Time Provider Department 05/08/23 1:30 PM NADIRA PURDY During your visit today, we recorded the following information about you: Pulse Respiration Blood pressure Weight 77/minute 18/minute 148/90 93.9 kg Height 1.778 m Nadira Purdy APRN.GUT SNATCHER 05/08/2023 1:59 PM Signed CC: VNS shut off HPI: This is a 42 year old male who presents to the outpatient clinic alone. He is scheduled for an MRI of his left knee today for left knee pain. VNS settings have been unchanged since his last visit with me. Current Outpatient Medications Medication Sig QUEtiapine (SEROQUEL) 300 mg tablet TAKE ONE TABLET DAILY BY MOUTH AT BEDTIME lurasidone (LATUDA) 20 mg tablet Take 1 tablet by mouth daily with dinner. lacosamide (VIMPAT) 100 mg tab Take 1 tablet by mouth two times a day. clonazePAM (KLONOPIN) 2 mg tablet Take one(1) tablet three times daily. promethazine (PHENERGAN) 25 mg tablet 1 po tid prn headache or nausea erenumab-aooe 140 mg/mL subcutaneous auto-injector (AIMOVIG) Inject 1 mL subcutaneously once every month. QUEtiapine (SEROQUEL) 50 mg tablet take 1 tablet by mouth three times daily as needed for anxiety rizatriptan (MAXALT-INTERACTIVE ART DIRECTOR) 10 mg disintegrating tablet Take 1 tablet by mouth as needed (at onset of headache. May repeat after 2 hours.). Do not exceed 30 mg per day. sertraline (ZOLOFT) 100 mg tablet Take 3 tablets by mouth once daily. benzocaine-menthol (CEPACOL) 15-3.6 mg lozg Use 1 Lozenge as instructed every 2 hours as needed. CPAP Change the pressure of autoBipap with EPAP 5-15 mh2o and PS 4-8cmh2O. His DME company is [employer] to fit patient preference, ramp, humidification and unlimited supplies Please send us machine download in 1 month CPAP Please send us machine download in 1 month Cetirizine 10 mg cap Take 1-2 tablets by mouth as needed. fluticasone (FLONASE) 50 mcg/actuation nasal spray Use 1 [place] in each nostril twice daily. albuterol HFA (PROVENTIL HFA, VENTOLIN HFA) 90 mcg/actuation inhaler Inhale 1-2 Puffs as instructed as needed for Wheezing/Shortness of Breath. nadolol (CORGARD) 80 mg tablet Take 1 tablet by mouth once daily. LORazepam (ATIVAN) 1 mg tablet Take 1 tablet by mouth as needed (for seizure lasting >3 minutes. Max 2 doses in 24 hours.) for up to 180 days. LORazepam (ATIVAN) 1 mg tablet Take 1 tablet by mouth as needed (for seizure lasting >3 minutes. Max 2 doses in 24 hours.) for up to 180 days. No current facility-administered medications for this visit. ALLERGIES Allergen Reactions Keppra [Levetiracet* Other: See Comments Increases his ADHD Ketorolac Trometham* Unknown unknown Pristiq [Desvenlafa* Other: See Comments sz [facility] VNS Seq. No.: [id number] VNS Serial No.: [id number] Date of Implantation: 2020 Stimulation Parameters: Current (mA): Present: 1.625; Changes 0.000 Frequency (Hz): Present: 25; Changes - Pulse width (ms): Present: 500; Changes: - Signal on-time (s): Present: 30; Changes: - Signal off-time (min.): Present: 0.8; Changes: - AutoStim Current (mA): Present: Inactive; Changes: - AutoStim pulse width (ms): Present: -; Changes: - AutoStim signal on-time (s): Present: -; Changes: - Magnet Current (mA): Present: 1.875; Changes: 0.000 Magnet pulse width (ms): Present: 500; Changes: - Magnet signal on-time (s): Present: 60; Changes: - Duty Cycle: 44% Comments: VNS is off for MRI. Patient to return for reset of device once imaging is completed. Nadira Purdy APRN.GUT SNATCHER Referring Provider: PAOLA MICHEL [[id number]] Allergies As of Date: 05/08/2023 Noted Allergy Reaction KEPPRA (LEVETIRACETAM) 07/31/2010 14 - Other: See Comments Comments: Increases his ADHD KETOROLAC TROMETHAMINE 09/14/2016 16 - Unknown Comments: unknown PRISTIQ (DESVENLAFAXINE) 01/12/2014 14 - Other: See Comments Comments: agustin Date Reviewed: 05/08/2023 Reviewed by: Allie Prado OCCA - Fully Assessed Reason for Visit: Established Patient [175] Primary Visit Diagnosis:Partial epilepsy with impairment of consciousness, intractable (HCC) [G40.219] Other Visit Diagnosis: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 - lacosamide (VIMPAT) 100 mg tab Take 1 tablet by mouth two times a day. - clonazePAM (KLONOPIN) 2 mg tablet Take one(1) tablet three times daily. - promethazine (PHENERGAN) 25 mg tablet 1 po tid prn headache or nausea - erenumab-aooe 140 mg/mL subcutaneous auto-injector (AIMOVIG) Inject 1 mL subcutaneously once every month. - QUEtiapine (SEROQUEL) 50 mg tablet take 1 tablet by mouth three times daily as needed for anxiety - rizatriptan (MA (more content not included)... Normal [facility] [place] MRI KNEE WO IVCON LTon 05-08 MRI KNEE WO IVCON LT * * *Final Report* * * DATE OF EXAM: May 08 2023 4:07PM QBM 0212 - MRI KNEE WO IVCON LT / PROCEDURE REASON: m25.562, s83.105a * * * * Physician Interpretation * * * * EXAMINATION: MRI LEFT KNEE WITHOUT CONTRAST CLINICAL HISTORY: Knee pain. TECHNIQUE: Routine non-contrast MRI of the knee MQ: [id number] COMPARISON: None RESULT: MENISCI: Medial Meniscus: Intact. Lateral Meniscus: Intact. LIGAMENTS: ACL: Intact PCL: Intact MCL: Intact LCL Complex: Intact CARTILAGE: Medial Femoral Condyle: Normal Medial Tibial Plateau: Normal Lateral Femoral Condyle: Normal Lateral Tibial Plateau: Normal Patella: Small areas(s) of predominantly high grade (greater than 50% thickness) cartilage loss and or fissuring with smaller area(s) of full thickness cartilage loss and or fissuring which has progressed since the prior study. Trochlea: Single full-thickness fissure TENDONS: The distal quadriceps and patellar tendons are intact. The popliteus tendon is intact. BONES AND MARROW: No evidence of fracture or bone marrow replacing process. MUSCLES: Muscle bulk and signal intensity are normal. JOINT FLUID AND SYNOVIUM: No joint effusion. No synovitis. No Rouse's cyst. OTHER: Tiny multiloculated cyst along the posteromedial joint line, similar to prior. Localizer images: IMPRESSION: PROGRESSION OF DEGENERATIVE CHONDRAL CHANGES OF THE APEX OF THE PATELLA Dry Kiln Loader: APARNA Transcribe Date/Time: May 08 2023 4:28P Dictated by : THIAGO LINK MD This examination was interpreted and the report reviewed and electronically signed by: THIAGO LINK MD on May 08 2023 4:31PM EST [id number] Normal [facility] 05-05-2023 CNPN Telephone ([id number]) BISHNU COLES ([id number]) 1980 M Date Time Provider Department 05/05/23 NAMITA LARKIN [id number] During your visit today, we recorded the following information about you: Gena Sunshine 05/05/2023 10:23 AM Signed Patient called our office and left voicemail with issues regarding scheduling for IOP. I returned call and provided him the phone number for IOP and advised that I would send them a message as well. Gena Sunshine Allergies As of Date: 05/05/2023 Noted Allergy Reaction KEPPRA (LEVETIRACETAM) 07/31/2010 14 - Other: See Comments Comments: Increases his ADHD KETOROLAC TROMETHAMINE 09/14/2016 16 - Unknown Comments: unknown PRISTIQ (DESVENLAFAXINE) 01/12/2014 14 - Other: See Comments Comments: sz Date Reviewed: 04/10/2023 Reviewed by: Nichol Valladares MA - Fully Assessed Reason for Visit: Scheduling [3921] Prescriptions as of 05/05/2023 - lurasidone (LATUDA) 20 mg tablet Take 1 tablet by mouth daily with dinner. - lacosamide (VIMPAT) 100 mg tab Take 1 tablet by mouth two times a day. - clonazePAM (KLONOPIN) 2 mg tablet Take one(1) tablet three times daily. - QUEtiapine (SEROQUEL) 300 mg tablet TAKE 1 TABLET BY MOUTH DAILY AT BEDTIME. - promethazine (PHENERGAN) 25 mg tablet 1 po tid prn headache or nausea - erenumab-aooe 140 mg/mL subcutaneous auto-injector (AIMOVIG) Inject 1 mL subcutaneously once every month. - QUEtiapine (SEROQUEL) 50 mg tablet take 1 tablet by mouth three times daily as needed for anxiety - rizatriptan (MAXALT-INTERACTIVE ART DIRECTOR) 10 mg disintegrating tablet Take 1 tablet by mouth as needed (at onset of headache. May repeat after 2 hours.). Do not exceed 30 mg per day. - sertraline (ZOLOFT) 100 mg tablet Take 3 tablets by mouth once daily. - nadolol (CORGARD) 80 mg tablet Take 1 tablet by mouth once daily. - benzocaine-menthol (CEPACOL) 15-3.6 mg lozg Use 1 Lozenge as instructed every 2 hours as needed. - LORazepam (ATIVAN) 1 mg tablet Take 1 tablet by mouth as needed (for seizure lasting >3 minutes. Max 2 doses in 24 hours.) for up to 180 days. - CPAP Change the pressure of autoBipap with EPAP 5-15 mh2o and PS 4-8cmh2O. His DME company is [employer] mask to fit patient preference, ramp, humidification and unlimited supplies Please send us machine download in 1 month - CPAP Please send us machine download in 1 month - LORazepam (ATIVAN) 1 mg tablet Take 1 tablet by mouth as needed (for seizure lasting >3 minutes. Max 2 doses in 24 hours.) for up to 180 days. - Cetirizine 10 mg cap Take 1-2 tablets by mouth as needed. - fluticasone (FLONASE) 50 mcg/actuation nasal spray Use 1 [place] in each nostril twice daily. - albuterol HFA (PROVENTIL HFA, VENTOLIN HFA) 90 mcg/actuation inhaler Inhale 1-2 Puffs as instructed as needed for Wheezing/Shortness of Breath. Problem List As Of Date 05/05/2023 Noted Resolved Epilepsy (HCC) [G40.909] 06/18/2004 Epilepsy with altered consciousness without int*07/31/2010 Depression with anxiety [F41.8] 01/12/2014 Respiratory failure requiring intubation (HCC) *04/07/2016 Acute respiratory failure (HCC) [J96.00] 04/07/2016 03/26/2019 Hx of suicide attempt [Z91.51] 04/07/2016 Bipolar II disorder (HCC) [F31.81] 07/02/2016 Obesity, Class I, BMI 30-34.9 [E66.9] 11/24/2017 Partial epilepsy with impairment of consciousne*01/12/2018 Gastroesophageal reflux disease without esophag*02/03/2018 S/P placement of VNS (vagus nerve stimulation) *12/20/2018 Psychophysiologic insomnia [F51.04] 06/20/2020 HIMA (obstructive sleep apnea) [G47.33] 06/20/2020 Generalized epilepsy (HCC) [G40.309] 09/20/2020 Acute postoperative pain [G89.18] 09/21/2020 Complex partial seizures evolving to generalize*02/12/2021 Recurrent major depression in partial remission*09/02/2021 Migraine without aura, intractable, with status*12/22/2022 Encounter Status:Closed by GENA SUNSHINE on 05/05/23 [facility] CONSULT PROGomary kay 04-27-2023 CONSULT PROG HNO ID: [id number] Author: Jazmin Skelton LPCC Service: Behavioral Health Author Type: Counselor Type: Consult Progress Note Filed: 04/27/2023 3:35 PM Note Text: Summary: DA for DBT IOP DIAGNOSTIC ASSESSMENT FOR IOP (INTENSIVE OUTPATIENT PROGRAM) SERVICE DATE: 04/23/2023 SERVICE TIME: 1PM REFERRED BY: Michael Cordoba APRN, CNP Virtual platform used: TEL[employer] This Visit is being conducted with the use of a HIPPA compliant telecommunication system permitting interactive audio and or video platform. Proper identity, and was established. Informed consent was obtained via electronic signature via patient's [employer] account. Location of patient: [place] Pt confirmed phone, email and address as noted below: Patient telephone: [phone] Patient email: m Patient address: [address] [place] [address] ([facility]) Pt provided release of information to the following (KALLIE form was sent to patient via email. Patient was asked to sign and return to therapist. Pt was made aware that electronic or written signature is required for release of information): Emergency contact: Nida Raya (sister) [phone] Prescriber/psychiatris t: Michael Cordoba APRN-ENZO Therapist: ALVIN Perez (local to patient) Team Members Participating in Plan of Care: Seema Roberts, [facility] Daisy Mejia, [facility], ATR Afua Rae, [facility] Jazmin Skelton, [facility] Mya Tena, MSN, INSTRUCTOR ADJUNCT SURGICAL TECHNICIAN, GUT SNATCHER, PMHNP- Amy Ray, INSTRUCTOR ADJUNCT SURGICAL TECHNICIAN, GUT SNATCHER Josi Queen PA-C Identifying Information: Bishnu Coles is a 42 year old male who is accompanied by Self Chief Complaint: suicide attempts History of Presenting Complaint: Pt reported attempting to overdose in March 2023, reportedly without hospitalization. Pt reports having low appetite, with weight loss reported (221lb down to 192lb in a short amount of time), sleeping more, difficulty with focus. Pt has epilepsy, which he reported is more controlled, which pt's providers feel is activating depression. Pt reports feeling easily irritated, with reporting a history of maricruz. He reports that maricruz lasts 3-4 days, which he reports is impacted by sleep apnea. He reports being on edge during those times, with starting multiple projects at once, not able to sleep. He reports being diagnosed with ADHD, so it is difficult to discern if it is ADHD or maricruz at times. Pt had a recent break up of girlfriend of 7 years-they are taking time apart before considering if they want to resume their relationship. Pt reported writing letters to his girlfriend as a way to process his emotions while still giving her some space. 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 Patient Goals for Treatment: Be able to process my emotions and thoughts better. Get my anger under control. Better coping techniques. Not let things build up. Urges: suicidal thoughts, bottling emotions, lashing out Review of Psychiatric Signs and Symptoms: Patient completed self-evaluation. Patient Data Generalized Anxiety Disorder Scale (REENA-7) REENA - 7 SCORES 03/05/2023 04/16/2023 04/27/2023 REENA-7 Score 15 14 14 (0-4) minimal anxiety, (5-9) mild anxiety, (10-14) moderate anxiety, (15-21) severe anxiety Mindful Attention Awareness Scale (SARAH) Mindful Attention Awareness Scale (SARAH) 04/27/2023 Mindful Attention Awareness Scale Score 41 Mindful Attention Awareness Scale Mean Score 2.73 Patient Health Questionnaire (PHQ-9) PHQ-9 03/05/2023 04/16/2023 04/27/2023 Score 12 21 18 (0-4) minimal depression, (5-9) mild depression, (10-14) moderate depression, (15-19) moderately severe depression, (20-27) severe depression Personal/Family History: Pt reported growing up everywhere , and jose worked for [employer], and they lived in [place], [place], [place], [place], [place]; moved around a lot for [employer] work. Moved to [place], [place] when pt was 15 years old. Raised by mom and stepdad, biological dad not around. Stayed with grandparents for two months each summer. Pt has one full sister, who is 2 years younger. Stepdad and mom had two children as well: Loinel (age 32) and Amy (age 26). Lived in [place] for 10 years; moved back to [place] in 2011. ETHNIC/SIKHISM BACKGROUND: Does your ethnic or taoism background require special considerations? No Does spirituality play a role in your life? 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 Normal [facility] Discharge Instructionson Discharge Instructions [id number]. [id number] Normal [facility] ED Clinical Summaryon 2022 ED Clinical Summary [place] [id number] ED Clinical Summary Person Information Name: BISHNU COLES [facility] Age: 42 Years : 1980 Sex: Male Language: Guamanian PCP: Erlinda Nunez MD Marital Status: Single Phone: [phone] Visit Id: Visit Reason: Knee pain-swelling; LEFT KNEE PAIN Speciality: Acuity: 4 Enc Type: Emergency Med Service: Emergency Arrival: 04/22/2023 21:20:13 Discharge: 04/22/2023 22:45:39 LOS: 000 01:25 Checkin: 04/22/2023 21:20:13 Checkout: 04/22/2023 22:45:39 Dispo Type: Home (Routine DC) EVENTS: Event Name Event Status Request Date/Time Start Date/Time Complete Date/Time Arrive Complete 04/22/2023 21:20:13 04/22/2023 21:20:13 04/22/2023 21:20:13 Document Home Meds Request 04/22/2023 21:20:13 Triage Complete 04/22/2023 21:20:13 04/22/2023 21:32:01 04/22/2023 21:32:01 Registration Complete 04/22/2023 21:25:30 04/22/2023 21:25:30 04/22/2023 21:25:30 Reg Complete Request 04/22/2023 21:25:30 Reg Bed Request Complete 04/22/2023 21:25:30 04/22/2023 21:25:30 04/22/2023 21:25:30 Bed Assign Complete 04/22/2023 21:32:13 04/22/2023 21:32:13 04/22/2023 21:32:13 Dr Exam Complete 04/22/2023 21:32:13 04/22/2023 21:33:10 04/22/2023 21:33:10 RN Exam Complete 04/22/2023 21:32:13 04/22/2023 22:21:34 04/22/2023 22:21:34 Registration Request 04/22/2023 21:33:10 Dr Exam Complete 04/22/2023 21:36:05 04/22/2023 21:36:05 04/22/2023 21:36:05 X-Ray Complete 04/22/2023 21:36:26 04/22/2023 21:49:08 04/22/2023 22:24:19 Wet Read Request 04/22/2023 22:24:19 Discharge Complete 04/22/2023 22:35:49 04/22/2023 22:45:43 04/22/2023 22:45:43 Meds Admin Complete 04/22/2023 22:40:32 04/22/2023 22:42:25 Transfer Complete 04/22/2023 22:45:43 04/22/2023 22:45:43 04/22/2023 22:45:43 ADDRESS: [address] [place] [phone] PHYS DOC NOTES: MEDICAL INFORMATION: Prescriptions Given: New Medications [id number], [address], [place] [id number], [phone] diclofenac topical (Voltaren Gel 1% Gel) 1 Application Topical 4 times a day as needed for pain. Refills: 0. tramadol (traMADOL 50 mg Tab) 1 Tablets By Mouth every 6 hours as needed for pain for 3 Days. Refills: 0. Medications to Continue with No Changes Other Medications cyproheptadine (cyproheptadine 4 mg Tab) diclofenac (diclofenac sodium 75 mg Oral EC Tab) lacosamide 100 Milligram By Mouth 3 times a day. nadolol (nadolol 80 mg oral tablet) promethazine (promethazine 25 mg Tab) quetiapine 50 Milligram By Mouth 3 times a day as needed Anxiety. rizatriptan 10 Milligram By Mouth every day as needed Migraine headache. may repeat dose once in 2 hours. sertraline (sertraline 100 mg Tab) 3 Tablets By Mouth at bedtime. simvastatin (simvastatin 20 mg Tab) By Mouth once a day (in the evening). PATIENT EDUCATION INFORMATION: Instructions: Acute Knee Pain, Adult, Cjxx-zw-Xqdm Follow up: With: Address: When: Erlinda Nunez [facility], [address] [place] [phone] Business (1) In 3 days 04/25/2023 Comments: Follow-up with your primary care provider in 3 to 5 days. If symptoms worsen, do not improve, or new symptoms arise please report back to emergency department for further evaluation. DIAGNOSIS: Left knee pain Normal [facility] ED Note-Physicianon 04-23-20 ED Note-Physician Basic Information Time Seen: Marcio MANCUSO, Tomasz Ku 04/22/2023 21:33 Chief Complaint pt to ED with c/o L knee pain. surgery by Maday in September. increasing pain. fell a couple days ago and has worse pain. appt with Maday on Thursday. ambulatory into ED. History of Present Illness 42-year-old male reports to the emergency department chief complaint of left knee pain. He reports that over the last couple days he fell, he feels like his knee is giving out. He reports that he did have surgery back in September with Dr. Nassar for a torn meniscus. He reports that he does have appointment on Thursday with Dr. Nassar for further evaluation, when to get checked out. He denies any new injuries except a couple falls. Reports otherwise been doing well. Denies any blood thinner use. Denies any other injury. Review of Systems A 10 point review of systems is negative except as noted above. Medical and Surgical History: Reviewed and noted Social history: Lives at home Family History: Reviewed. Tobacco: Denies Physical Exam Vitals & Measurements T: 36.4 ?C(Tympanic) HR: 100(Peripheral) RR: 18 BP: 133/70 SpO2: 99% HT: 178 cm WT: 96.4 kg BMI: 30.43 General: The patient appears well and in no apparent distress. Patient is resting comfortably in chair. Afebrile Skin: Warm, dry, no pallor noted. No erythema or swelling noted. Head: Normocephalic, atraumatic Neck: No JVD Eye: PERRLA, EOMI ENT: Moist mucus membranes Cardiovascular: Regular rate normal peripheral perfusion. Pedal pulses +2 bilaterally Respiratory: No respiratory distress no accessory muscle use no obvious audible wheezing Chest Wall: no deformity Musculoskeletal: Limited range of motion of the left knee due to pain, with no obvious deformity or swelling noted. Tenderness on varus and valgus maneuvers. GI: No obvious distention Neurological: A&O moves all extremities equal strength and symmetry Psychiatric: Cooperative and appropriate Medical Decision Making MEDICAL DECISION MAKING Number and Complexity of Problems Differential Diagnosis: [] [facility] Data External documents reviewed: [] My EKG interpretation: [] My CT interpretation: [] My X-ray interpretation: Reviewed My Ultrasound interpretation: [] Decision rules/scores evaluated: [] Discussed with: [] Treatment and Disposition ED Course: 42-year-old male reports emerged department with chief complaint of left knee pain. Reports he is fallen last couple days, and also has unsteadiness in his left knee. Reports previous surgery for meniscus. Is concerned that his meniscus may have torn again. Denies any blood thinner use. Denies any other injury. Physical exam does reveal a limited range of motion of the leg due to the pain. No other obvious physical exam findings. Left leg is neurovascular intact distally. Due to concerns we did an x-ray. X-rays negative for any acute findings. Discussed that this could be meniscal, but we will treat with Voltaren gel, as well as tramadol for breakthrough pain. Patient was grateful. Discussed follow-up with Dr. Nassar. Discussed return precautions. Follow-up with your primary care provider in 3 to 5 days. If symptoms worsen, do not improve, or new symptoms arise please report back to emergency department for further evaluation. The patient was understanding and agreeable to plan moving forward. Shared decision making: [] Code status: [] Assessment/Plan Left knee pain (M25.562: Pain in left knee) Orders: diclofenac topical, 1 elijah, Topical, QID for pain, 100 gram, Refill(s) 0, [id number], 178, cm, 04/22/23 21:32:00 EST, Height/Length Dosing, 96.4, kg, 04/22/23 21:32:00 EST, Weight Dosing tramadol, 50 mg = 1 tab(s), Tab, Oral, Once, Stop date 04/22/23 22:40:00 EST, STAT, Start date 04/22/23 22:40:00 EST, 04/22/23 22:40:00 EST tramadol, 50 mg = 1 tab(s), Oral, q6hr, PRN for pain, X 3 day(s), # 12 tab(s), Refills(s) 0, Pharmacy: [id number], 178, cm, 04/22/23 21:32:00 EST, Height/Length Dosing, 96.4, kg, 04/22/23 21:32:00 EST, Weight Dosing XR Knee Complete 4+ Views Left Medications Administered Given traMADOL 50 mg Tab, 50 mg, Oral Disposition Plan Patient Discharge Condition stable Discharge Disposition to home Discharge Prescription List Prescriptions traMADOL 50 mg Tab, 50 mg= 1 tab(s), Oral, q6hr, PRN Voltaren Gel 1% Gel, 1 elijah, Topical, QID, PRN Follow-up With When Contact Information Erlinda Nunez In 3 days 04/25/2023 EST [address] [place] [id number] Business (1) Additional Instructions: Follow-up with your primary care provider in 3 to 5 days. If symptoms worsen, do not improve, or new symptoms arise please report back to emergency department for further evaluation. Patient Education Acute Knee Pain, Adult, Fhvt-uv-Wzla Attestation Patient seen and evaluated by the physician assistant loan processor. Attending physician was present in the emergency department and supervised c (more content not included)... Normal [facility] Comment on above: Result Comment: Elec tronically Signed By: Marcio MANCUSO, Tomasz Ku\.br\Date and Time Signed: 04/22/23 23:20 EST\.br\Electronically Co-Signed By: Issa Levy DO.br\Date and Time Co-Signed: 04/23/23 00:02 EST ED Patient Education Noteon 04-23-2023 ED Patient Education Note Orthopedics Acute Knee Pain, Adult Many things can cause knee pain. Sometimes, knee pain is sudden (acute) and may be caused by damage, swelling, or irritation of the muscles and tissues that support your knee. The pain often goes away on its own with time and rest. If the pain does not go away, tests may be done to find out what is causing the pain. Follow these instructions at home: If you have a knee sleeve or brace: ? Wear the knee sleeve or brace as told by your doctor. Take it off only as told by your doctor. ? Loosen it if your toes: ? Tingle. ? Become numb. ? Turn cold and blue. ? Keep it clean. ? If the knee sleeve or brace is not waterproof: ? Do not let it get wet. ? Cover it with a watertight covering when you take a bath or shower. Activity ? Rest your knee. ? Do not do things that cause pain or make pain worse. ? Avoid activities where both feet leave the ground at the same time (high-impact activities). Examples are running, jumping rope, and doing jumping jacks. ? Work with a physical therapist to make a safe exercise program, as told by your doctor. Managing pain, stiffness, and swelling ? If told, put ice on the knee. To do this: ? If you have a removable knee sleeve or brace, take it off as told by your doctor. ? Put ice in a plastic bag. ? Place a towel between your skin and the bag. ? Leave the ice on for 20 minutes, 2?3 times a day. ? Take off the ice if your skin turns bright red. This is very important. If you cannot feel pain, heat, or cold, you have a greater risk of damage to the area. ? If told, use an elastic bandage to put pressure (compression) on your injured knee. ? Raise your knee above the level of your heart while you are sitting or lying down. ? Sleep with a pillow under your knee. General instructions ? Take ppjz-vre-zmtlzzu and prescription medicines only as told by your doctor. ? Do not smoke or use any products that contain nicotine or tobacco. If you need help quitting, ask your doctor. ? If you are overweight, work with your doctor and a food expert (dietitian) to set goals to lose weight. Being overweight can make your knee hurt more. ? Watch for any changes in your symptoms. ? Keep all follow-up visits. Contact a doctor if: ? The knee pain does not stop. ? The knee pain changes or gets worse. ? You have a fever along with knee pain. ? Your knee is red or feels warm when you touch it. ? Your knee gives out or locks up. Get help right away if: ? Your knee swells, and the swelling gets worse. ? You cannot move your knee. ? You have very bad knee pain that does not get better with pain medicine. Summary ? Many things can cause knee pain. The pain often goes away on its own with time and rest. ? Your doctor may do tests to find out the cause of the pain. ? Watch for any changes in your symptoms. Relieve your pain with rest, medicines, light activity, and use of ice. ? Get help right away if you cannot move your knee or your knee pain is very bad. This information is not intended to replace advice given to you by your health care provider. Make sure you discuss any questions you have with your health care provider. Document Revised: 10/17/2020 Document Reviewed: 10/17/2020 [employer] Patient Education ? 2022 [employer] Normal [facility] ED Patient Summaryon 023 ED Patient Summary [address] [address] Patient Discharge Instructions Person Information Name: BISHNU COLES Age: 42 Years Arrival Date: 04/22/2023 21:20:13 Discharge Diagnosis: Left knee pain Primary Care Physician: Erlinda Nunez MD Provider Information Primary Provider: Issa Levy DO [employer] Security Project Manager:None The exam and treatment you received in the Emergency Department were for an urgent problem and are not intended as complete care. It is important that you follow up with a doctor, nurse practitioner, or physician?s assistant loan processor for ongoing care. If your symptoms become worse or you do not improve as expected and you are unable to reach your usual health care provider, you should return to the Emergency Department. We are available 24 hours a day. BISHNU COLES has been given the following list of patient education materials, prescriptions and follow-up instructions: Follow-up Instructions: With: Address: When: Erlinda Nunez [address] [place] [address], [place] [address] Business (1) In 3 days 04/25/2023 Comments: Follow-up with your primary care provider in 3 to 5 days. If symptoms worsen, do not improve, or new symptoms arise please report back to emergency department for further evaluation. In the event that this physician does not participate in your insurance network, please consult with your insurance company to find a nearby participating provider. Patient Education Materials: Acute Knee Pain, Adult, Sgzh-ry-Jnsl A MESSAGE TO ALL PATIENTS REGARDING OPIOIDS PRESCRIPTION OPIOIDS: WHAT YOU NEED TO KNOW Prescription opioids can be used to help relieve dnrhhdhb-vl-mpbjsk pain and are often prescribed following a surgery or injury, or for certain health conditions. These medications can be an important part of the treatment but also come with serious risks. It is important to work with your healthcare provider to make sure you are getting the safest, most effective care. WHAT ARE THE RISKS AND SIDE EFFECTS OF OPIOID USE? Prescription opioids carry serious risks of addiction and overdose, especially with prolonged use. An opioid overdose, often marked by slowed breathing, can cause sudden . The use of prescription opioids can have a number of side effects as well, even when taken as directed: ? Tolerance?meaning you might need to take more of the medication for the same pain relief ? Physical dependence?meaning you have symptoms of withdrawal when a medication is stopped ? Increased sensitivity to pain ? Constipation ? Nausea, vomiting, and dry mouth ? Sleepiness and dizziness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 (KLONOPIN) 2 mg tablet Take 1 tablet by mouth three times daily for 180 days. - sertraline (ZOLOFT) 100 mg tablet Take 3 tablets by mouth once daily. - nadolol (CORGARD) 80 mg tablet Take 1 tablet by mouth once daily. - benzocaine-menthol (CEPACOL) 15-3.6 mg lozg Use 1 Lozenge as instructed every 2 hours as needed. - LORazepam (ATIVAN) 1 mg tablet Take 1 tablet by mouth as needed (for seizure lasting >3 minutes. Max 2 doses in 24 hours.) for up to 180 days. - CPAP Change the pressure of autoBipap with EPAP 5-15 mh2o and PS 4-8cmh2O. His DME company is [employer] , new mask to fit patient preference, ramp, humidification and unlimited supplies Please send us machine download in 1 month - CPAP Please send us machine download in 1 month - LORazepam (ATIVAN) 1 mg tablet Take 1 tablet by mouth as needed (for seizure lasting >3 minutes. Max 2 doses in 24 hours.) for up to 180 days. - Cetirizine 10 mg cap Take 1-2 tablets by mouth as needed. - fluticasone (FLONASE) 50 mcg/actuation nasal spray Use 1 [place] in each nostril twice daily. - albuterol HFA (PROVENTIL HFA, VENTOLIN HFA) 90 mcg/actuation inhaler Inhale 1-2 Puffs as instructed as needed for Wheezing/Shortness of Breath. Problem List As Of Date 03/31/2023 Noted Resolved Epilepsy (HCC) [G40.909] 06/18/2004 Epilepsy with altered consciousness without int*07/31/2010 Depression with anxiety [F41.8] 01/12/2014 Respiratory failure requiring intubation (HCC) *04/07/2016 Acute respiratory failure (HCC) [J96.00] 04/07/2016 03/26/2019 Hx of suicide attempt [Z91.51] 04/07/2016 Bipolar II disorder ([facility]) [F31.81] 07/02/2016 Obesity, Class I, BMI 30-34.9 [E66.9] 11/24/2017 Partial epilepsy with impairment of consciousne*01/12/2018 Gastroesophageal reflux disease without esophag*02/03/2018 S/P placement of VNS (vagus nerve stimulation) *12/20/2018 Psychophysiologic insomnia [F51.04] 06/20/2020 HIMA (obstructive sleep apnea) [G47.33] 06/20/2020 Generalized epilepsy ([facility]) [G40.309] 09/20/2020 Acute postoperative pain [G89.18] 09/21/2020 Complex partial seizures evolving to generalize*02/12/2021 Recurrent major depression in partial remission*09/02/2021 Migraine without aura, intractable, with status*12/22/2022 Encounter Status:Closed by MICHAEL CORDOBA on 03/31/23 [facility]PSYAEM[facility] BISHNU COLES ([id number]) 1980 Date Time Provider Department 03/25/23 MICHAEL CORDOBA PSYAEM During your visit today, we recorded the following information about you: Michael Cordoba APRN.GUT SNATCHER 03/25/2023 4:09 PM Signed spoke with Daja from [facility], and she said that they do not only do case management. Will have to use [facility]. . Attempted to call. LM on VM Allergies As of Date: 03/25/2023 Noted Allergy Reaction KEPPRA (LEVETIRACETAM) 07/31/2010 14 - Other: See Comments Comments: Increases his ADHD KETOROLAC TROMETHAMINE 09/14/2016 16 - Unknown Comments: unknown PRISTIQ (DESVENLAFAXINE) 01/12/2014 14 - Other: See Comments Comments: sz Date Reviewed: 12/16/2022 Reviewed by: Allie Prado OCCA - Fully Assessed Prescriptions as of 03/25/2023 - erenumab-aooe 140 mg/mL subcutaneous auto-injector (AIMOVIG) Inject 1 mL subcutaneously once every month. - QUEtiapine (SEROQUEL) 50 mg tablet take 1 tablet by mouth three times daily as needed for anxiety - QUEtiapine (SEROQUEL) 300 mg tablet Take 1 tablet by mouth daily at bedtime. - rizatriptan (MAXALT-INTERACTIVE ART DIRECTOR) 10 mg disintegrating tablet Take 1 tablet by mouth as needed (at onset of headache. May repeat after 2 hours.). Do not exceed 30 mg per day. - promethazine (PHENERGAN) 25 mg tablet 1 po tid prn headache or nausea - lacosamide (VIMPAT) 100 mg tab Take 1 tablet by mouth twice daily. - clonazePAM (KLONOPIN) 2 mg tablet Take 1 tablet by mouth three times daily for 180 days. - sertraline (ZOLOFT) 100 mg tablet Take 3 tablets by mouth once daily. - nadolol (CORGARD) 80 mg tablet Take 1 tablet by mouth once daily. - benzocaine-menthol (CEPACOL) 15-3.6 mg lozg Use 1 Lozenge as instructed every 2 hours as needed. - LORazepam (ATIVAN) 1 mg tablet Take 1 tablet by mouth as needed (for seizure lasting >3 minutes. Max 2 doses in 24 hours.) for up to 180 days. - CPAP Change the pressure of autoBipap with EPAP 5-15 mh2o and PS 4-8cmh2O. His DME company is [employer] , [employer]Lo mask to fit patient preference, ramp, humidification and unlimited supplies Please send us machine download in 1 month - CPAP Please send us machine download in 1 month - LORazepam (ATIVAN) 1 mg tablet Take 1 tablet by mouth as needed (for seizure lasting >3 minutes. Max 2 doses in 24 hours.) for up to 180 days. - Cetirizine 10 mg cap Take 1-2 tablets by mouth as needed. - fluticasone (FLONASE) 50 mcg/actuation nasal spray Use 1 [place] in each nostril twice daily. - albuterol HFA (PROVENTIL HFA, VENTOLIN HFA) 90 mcg/actuation inhaler Inhale 1-2 Puffs as instructed as needed for Wheezing/Shortness of Breath. Problem List As Of Date 03/25/2023 Noted Resolved Epilepsy (HCC) [G40.909] 06/18/2004 Epilepsy with altered consciousness without int*07/31/2010 Depression with anxiety [F41.8] 01/12/2014 Respiratory failure requiring intubation (HCC) *04/07/2016 Acute respiratory failure ([facility]) [J96.00] 04/07/2016 03/26/2019 Hx of suicide attempt [Z91.51] 04/07/2016 Bipolar II disorder ([facility]) [F31.81] 07/02/2016 Obesity, Class I, BMI 30-34.9 [E66.9] 11/24/2017 Partial epilepsy with impairment of consciousne*01/12/2018 Gastroesophageal reflux disease without esophag*02/03/2018 S/P placement of VNS (vagus nerve stimulation) *12/20/2018 Psychophysiologic insomnia [F51.04] 06/20/2020 HIMA (obstructive sleep apnea) [G47.33] 06/20/2020 Generalized epilepsy (HCC) [G40.309] 09/20/2020 Acute postoperative pain [G89.18] 09/21/2020 Complex partial seizures evolving to generalize*02/12/2021 Recurrent major depression in partial remission*09/02/2021 Migraine without aura, intractable, with status*12/22/2022 Encounter Status:Closed by MICHAEL CORDOBA on 03/25/23 [facility]ela 03-17-2023 ENZON Telephone (PSYAEM) BISHNU COLES ([id number]) 1980 M Date Time Provider Department 10/31/23 MICHAEL CORDOBA During your visit today, we recorded the following information about you: Michael Cordoba APRN.GUT SNATCHER 03/17/2023 10:33 AM Signed Referring pt to [facility] and recovery services [facility] for case management. [phone]. [phone]. Information needed demographics, insurance, and 1 office note. Pt would have to have an assessment first. Allergies As of Date: 03/17/2023 Noted Allergy Reaction KEPPRA (LEVETIRACETAM) 07/31/2010 14 - Other: See Comments Comments: Increases his ADHD KETOROLAC TROMETHAMINE 09/14/2016 16 - Unknown Comments: unknown PRISTIQ (DESVENLAFAXINE) 01/12/2014 14 - Other: See Comments Comments: sz Date Reviewed: 12/16/2022 Reviewed by: Allie Prado OCCA - Fully Assessed Prescriptions as of 03/17/2023 - erenumab-aooe 140 mg/mL subcutaneous auto-injector (AIMOVIG) Inject 1 mL subcutaneously once every month. - QUEtiapine (SEROQUEL) 50 mg tablet take 1 tablet by mouth three times daily as needed for anxiety - QUEtiapine (SEROQUEL) 300 mg tablet Take 1 tablet by mouth daily at bedtime. - rizatriptan (MAXALT-INTERACTIVE ART DIRECTOR) 10 mg disintegrating tablet Take 1 tablet by mouth as needed (at onset of headache. May repeat after 2 hours.). Do not exceed 30 mg per day. - promethazine (PHENERGAN) 25 mg tablet 1 po tid prn headache or nausea - lacosamide (VIMPAT) 100 mg tab Take 1 tablet by mouth twice daily. - clonazePAM (KLONOPIN) 2 mg tablet Take 1 tablet by mouth three times daily for 180 days. - sertraline (ZOLOFT) 100 mg tablet Take 3 tablets by mouth once daily. - nadolol (CORGARD) 80 mg tablet Take 1 tablet by mouth once daily. - benzocaine-menthol (CEPACOL) 15-3.6 mg lozg Use 1 Lozenge as instructed every 2 hours as needed. - LORazepam (ATIVAN) 1 mg tablet Take 1 tablet by mouth as needed (for seizure lasting >3 minutes. Max 2 doses in 24 hours.) for up to 180 days. - CPAP Change the pressure of autoBipap with EPAP 5-15 mh2o and PS 4-8cmh2O. His DME company is [employer] , new mask to fit patient preference, ramp, humidification and unlimited supplies Please send us machine download in 1 month - CPAP Please send us machine download in 1 month - LORazepam (ATIVAN) 1 mg tablet Take 1 tablet by mouth as needed (for seizure lasting >3 minutes. Max 2 doses in 24 hours.) for up to 180 days. - Cetirizine 10 mg cap Take 1-2 tablets by mouth as needed. - fluticasone (FLONASE) 50 mcg/actuation nasal spray Use 1 [place] in each nostril twice daily. - albuterol HFA (PROVENTIL HFA, VENTOLIN HFA) 90 mcg/actuation inhaler Inhale 1-2 Puffs as instructed as needed for Wheezing/Shortness of Breath. Problem List As Of Date 03/17/2023 Noted Resolved Epilepsy (HCC) [G40.909] 06/18/2004 Epilepsy with altered consciousness without int*07/31/2010 Depression with anxiety [F41.8] 01/12/2014 Respiratory failure requiring intubation (HCC) *04/07/2016 Acute respiratory failure (HCC) [J96.00] 04/07/2016 03/26/2019 Hx of suicide attempt [Z91.51] 04/07/2016 Bipolar II disorder (HCC) [F31.81] 07/02/2016 Obesity, Class I, BMI 30-34.9 [E66.9] 11/24/2017 Partial epilepsy with impairment of consciousne*01/12/2018 Gastroesophageal reflux disease without esophag*02/03/2018 S/P placement of VNS (vagus nerve stimulation) *12/20/2018 Psychophysiologic insomnia [F51.04] 06/20/2020 HIMA (obstructive sleep apnea) [G47.33] 06/20/2020 Generalized epilepsy (HCC) [G40.309] 09/20/2020 Acute postoperative pain [G89.18] 09/21/2020 Complex partial seizures evolving to generalize*02/12/2021 Recurrent major depression in partial remission*09/02/2021 Migraine without aura, intractable, with status*12/22/2022 Encounter Status:Closed by ADALIDMICHAEL on 03/17/23 Normal [facility] Calculus Analysison 03-12-20 Calcium oxalate dihydrate Infrared spectroscopy (Stone) [Mass fraction] 80 % Invalid Interpretation Code [facility] Comment on above: Performed By: #### 1 [id number] ####[facility] [address] [place] [address] Calcium oxalate monohydrate (Stone) [Mass fraction] 15 % Invalid Interpretation Code [facility] Comment on above: Performed By: #### 1 [id number] ####[facility] [address] [place] [address] Calculus analysis [Interp] Comment Invalid Interpretation Code [facility] Comment on above: Result Comment: Calc ium phosphate (hydroxyl form) includes hydroxyapatite, amorphous calcium phosphate, and whitlockite. Hydroxyapatite is the most common of the calcium phosphate salts found in human kidney stones. Performed By: #### 1 [id number] ####[facility] [address] [place] [address] Color (Stone) [place] Invalid Interpretation Code [facility] Comment on above: Performed By: #### 1 [id number] ####[facility] [address] [place] [address] Composition Comment Invalid Interpretation Code [facility] Comment on above: Result Comment: Perc entage (Represents the % composition) Performed By: #### 1 [id number] ####[facility] [address] [place] [address] Disclaimer: Comment Invalid Interpretation Code [facility] Comment on above: Result Comment: This test was developed and its performance characteristics determined by [employer]. It has not been cleared or approved by the Food and Drug Administration. Performed at: [address] [id number] PhD Juan Andrew Performed By: #### 1 [id number] ####[facility] [address] [place] [address] Hydroxyapatite: 5 % Invalid Interpretation Code [facility] Comment on above: Performed By: #### 1 [id number] ####[facility] [address] [place] [address] Laboratory comment Luis (Report) Comment Invalid Interpretation Code [facility] Comment on above: Result Comment: Edison de la cruz questions regarding Calculi Analysis contact [facility] at: [phone]. Performed By: #### 1 [id number] ####[address] [place] [address] Please Note: Comment Invalid Interpretation Code [facility] Comment on above: Result Comment: Calc jim report will follow via computer, mail or barrel cleaner delivery. Performed By: #### 1 [id number] ####[address] [place] [address] Size (Stone) [Entitic vol] 4x4 Invalid Interpretation Code [facility] Comment on above: Result Comment: Sing le piece received. Performed By: #### 1 [id number] ####[address] [address] Specimen source subject Nom Comment Invalid Interpretation Code [facility] Comment on above: Result Comment: Not provided Performed By: #### 1 [id number] ####[address] [address] Stone Photo Comment Invalid Interpretation Code [facility] Comment on above: Result Comment: Phot ograph will follow under a separate cover Performed By: #### 1 [id number] ####[address] [place] [address] Weight (Stone) 25 mg Invalid Interpretation Code [facility] Comment on above: Performed By: #### 1 [id number] ####[facility] [address] [place] [address] Screenson 03-06-2023 Screens [id number] 00 [id number] .00TIFF Normal [facility] Screens [id number] .00TIFF Normal [facility] Formson 03-05-2023 Forms [id number] 00 [id number] 0TIFF Cee Ervin [facility] Patient Educationon 03-04-20 Patient Education Nephrology Dietary Guidelines to Help Prevent Kidney Stones Kidney stones are deposits of minerals and salts that form inside your kidneys. Your risk of developing kidney stones may be greater depending on your diet, your lifestyle, the medicines you take, and whether you have certain medical conditions. Most people can lower their chances of developing kidney stones by following the instructions below. Your dietitian may give you more specific instructions depending on your overall health and the type of kidney stones you tend to develop. What are tips for following this plan? Reading food labels ? Choose foods with no salt added or low-salt labels. Limit your salt (sodium) intake to less than 1,500 mg a day. ? Choose foods with calcium for each meal and snack. Try to eat about 300 mg of calcium at each meal. Foods that contain 200?500 mg of calcium a serving include: ? 8 oz (237 mL) of milk, phsgclt-pciyzgadigjj-s airy milk, and calcium-fortifiedfruit juice. Calcium-fortified means that calcium has been added to these drinks. ? 8 oz (237 mL) of kefir, yogurt, and soy yogurt. ? 4 oz (114 g) of tofu. ? 1 oz (28 g) of cheese. ? 1 cup (150 g) of dried figs. ? 1 cup (91 g) of cooked broccoli. ? One 3 oz (85 g) can of sardines or mackerel. Most people need 1,000?1,500 mg of calcium a day. Talk to your dietitian about how much calcium is recommended for you. Shopping ? Buy plenty of fresh fruits and vegetables. Most people do not need to avoid fruits and vegetables, even if these foods contain nutrients that may contribute to kidney stones. ? When shopping for convenience foods, choose: ? Whole pieces of fruit. ? Pre-made salads with dressing on the side. ? Low-fat fruit and yogurt smoothies. ? Avoid buying frozen meals or prepared deli foods. These can be high in sodium. ? Look for foods with live cultures, such as yogurt and kefir. ? Choose high-fiber grains, such as whole-wheat breads, oat bran, and wheat cereals. Cooking ? Do not add salt to food when cooking. Place a salt shaker on the table and allow each person to add his or her own salt to taste. ? Use vegetable protein, such as beans, textured vegetable protein (TVP), or tofu, instead of meat in pasta, casseroles, and soups. Meal planning ? Eat less salt, if told by your dietitian. To do this: ? Avoid eating processed or pre-made food. ? Avoid eating fast food. ? Eat less animal protein, including cheese, meat, poultry, or fish, if told by your dietitian. To do this: ? Limit the number of times you have meat, poultry, fish, or cheese each week. Eat a diet free of meat at least 2 days a week. ? Eat only one serving each day of meat, poultry, fish, or seafood. ? When you prepare animal protein, cut pieces into small portion sizes. For most meat and fish, one serving is about the size of the palm of your hand. ? Eat at least five servings of fresh fruits and vegetables each day. To do this: ? Keep fruits and vegetables on hand for snacks. ? Eat one piece of fruit or a handful of berries with breakfast. ? Have a salad and fruit at lunch. ? Have two kinds of vegetables at dinner. ? Limit foods that are high in a substance called oxalate. These include: ? Spinach (cooked), rhubarb, beets, sweet potatoes, and Italian chard. ? Peanuts. ? Potato chips, maltese fries, and baked potatoes with skin on. ? Nuts and nut products. ? Chocolate. ? If you regularly take a diuretic medicine, make sure to eat at least 1 or 2 servings of fruits or vegetables that are high in potassium each day. These include: ? Avocado. ? Banana. ? [place], prune, carrot, or tomato juice. ? Baked potato. ? Cabbage. ? Beans and split peas. Lifestyle ? Drink enough fluid to keep your urine pale yellow. This is the most important thing you can do. Spread your fluid intake throughout the day. ? If you drink alcohol: ? Limit how much you use to: ? 0?1 drink a day for women who are not . ? 0?2 drinks a day for men. ? Be aware of how much alcohol is in your drink. In the [place] one drink equals one 12 oz bottle of beer (355 mL), one 5 oz glass of wine (148 mL), or one 1? oz glass of hard liquor (44 mL). ? Lose weight if told by your health care provider. Work with your dietitian to find an eating plan and weight loss strategies that work best for you. General information ? Talk to your health care provider and dietitian about taking daily supplements. You may be told the following depending on your health and the cause of your kidney stones: ? Not to take supplements with vitamin C. ? To take a calcium supplement. ? To take a daily probiotic supplement. ? To take other supplements such as magnesium, fish oil, or vitamin B6. ? Take tpop-mau-hecpfki and prescription medicines only as told by your health care provider. These include supplements. What foods should I limit? Limit your in (more content not included)... 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 CT AP w/o Con 02/23/23 - there is a 0.4cm stone in the distal Lt ureter with mild Lt hydroureter and hydronephrosis, and bladder wall thickening. Previously seen DLS on 11/09/18 due to kidney stone, and urinary retention, S/p Cysto 11/25/18 w/DLS, was given script for Terazosin 5mg QD for 1 mos, pt was to f/u in 1 mos, pt did not come to this appt. Pt did pass stone Thursday. Has with him today. Mild intermittent Lt groin pain at this time. Mild pain and burning while voiding. Still taking Keflex abx from ER. Denies current visible blood in urine. Last visible blood noticed 2-3 days prior to passing stone. Does have Hx of Kidney Stones. Denies surgical intervention. Has passed stones on his own. Stream has gotten stronger and more steady since passing stone. History of Present Illness Tests reviewed: reviewed UA and External Records including, labs, notes, images I have reviewed the previous health record information and history for this patient from External Provider. I have reviewed and verified the staff HPI to be accurate for this encounter. There have been no associated fever, chills, flank pain, or blood in the urine. Denies any urinary infections since last encounter. Review of Systems PHQ Score Initial Depression Screen Score: 0 ROS - Provider Constitutional: denies weight loss, denies hot flashes. Eyes: denies eye problems. Gastrointestinal: denies nausea, denies vomiting. Cardiovascular: denies chest pain or angina. Integumentary: no dryness Musculoskeletal: denies musculoskeletal symptoms. ENMT: denies otolaryngeal symptoms. Respiratory: no shortness of breath. Heme/Lymph: denies easy bleeding tendency, denies easy bruising tendency. Psychiatric: no confusion, no anxiety. Genitourinary: See HPI. Physical Exam Vitals & Measurements HR: 78(Peripheral) RR: 16 BP: 124/82 HT: 70 in HT: 178 cm WT: 100 kg WT: 220 lb BMI: 31.56 General Appearance: alert, no distress, well nourished, well developed male. Head: normocephalic . Eyes: normal orbit and globe. ENMT: normal examination of external ears. Chest: symmetric chest rise, respirations non labored. Cardiovascular: regular rate and rhythm. Abdomen: soft, non distended, no tenderness Genitourinary: Flank Pain: none. Bladder: nonpalpable. Skin: warm, dry, no bruising. Psychiatric: cooperative, affect appropriate for age, normal judgement, euthymic mood. Assessment/Plan 42 yo M presents for new patient evaluation of ureteral stone ALYCIA 24 Prior DLS Pt 1. Ureteral stone with hydronephrosis (N13.2: Hydronephrosis with renal and ureteral calculous obstruction) [facility] ER f/u from 02/23/23 due to lower abdominal pain, Lt-sided flank pain, and hematuria, was tx for UTI, acute urinary retention, and kidney stones, was given Tamsulosin, Keflex, Zofran, and Needham CT AP w/o Con 02/23/23 - there is a 0.4cm stone in the distal Lt ureter with mild Lt hydroureter and hydronephrosis, and bladder wall thickening. Pt did pass stone Thursday. Has with him today. Mild pain and burning while voiding. Still taking Keflex abx from ER. UA today neg Stream has gotten stronger and more steady since passing stone. 02/23/2023 - Calcium 9.1, BMP wnl We discussed management options moving forward including general dietary modifications, metabolic stone work-up including serum labs and 24-hour urine analysis, continued surveillance with imaging in 6 to 12 months or expectant management. The patient like to proceed with metabolic stone workup Dietary modifications discussed: -Maintaining urine output > 2.5 liters a day. -Fluid intake > 3 liters a day, consisting of mostly water, although orange juice and lemonade are also excellent choices in non-obese, non-diabetic patients who have concomitant hypocitraturia. Some experts recommend avoiding dark, sugary soda. -Decrease animal protein intake, in particular: wild game, goose, liver, duck, turkey, chicken, red meat, pork, and seafood should be consumed in moderation. -Restrict sodium to 2.4 grams a day. 1.5 g of sodium a day in those with HTN, Americans, or middle-older aged adults. -Maintain normal calcium oxalate intake from dietary sources. High oxalate intake should be avoided in individuals found to have high urinary oxalate levels on metabolic evaluation. Limit high oxalate folds and drinks, including many nuts, chocolate, spinach rhubarb and soy. Follow up in 4-6 wks w/Metabolic stone Workup: urine and Labs. All questions/concerns were discussed. Pt to call the office if he encounters any issues prior. Pt acknowledges understanding. -Will send stone for analysis today -Will order metabolic workup: 24 hr urine litholink and PTH and Uric Acid -Dieta (more content not included)... Normal [facility] Comment on above: Result Comment: Elec tronically Signed By: Nahed Doran MD\.br\Date and Time Signed: 03/04/23 11:50 EDT\.br\Electronically Co-Signed By: Rona Shrsetha.br\Date and Time Co-Signed: 03/04/23 10:57 EDT ED Note-Physicianon 02-28-20 ED Note-Physician [id number] 0TIFF Normal [facility] RAD - CT Reporton 02-27-2023 RAD - CT Report [id number] 0TIFF Normal [facility] CNPNon 02-10-2023 CNPN Telephone (NEADFV) BISHNU COLES ([id number]) 1980 M Date Time Provider Department 02/10/23 BILLIE ALONSO NEADFV During your visit today, we recorded the following information about you: Reina Helms 02/10/2023 10:26 AM Signed Received LoLo prior auth request from [employer], uploaded to chart and forwarded for review. Stephanie Liao 02/10/2023 10:49 AM Signed Approvedon February 09 PA Case: [id number], Status: Approved, Coverage Starts on: 02/09/2023 12:00:00 AM, Coverage Ends on: 05/17/2023 12:00:00 AM. Allergies As of Date: 02/10/2023 Noted Allergy Reaction KEPPRA (LEVETIRACETAM) 07/31/2010 14 - Other: See Comments Comments: Increases his ADHD KETOROLAC TROMETHAMINE 09/14/2016 16 - Unknown Comments: unknown PRISTIQ (DESVENLAFAXINE) 01/12/2014 14 - Other: See Comments Comments: sz Date Reviewed: 12/16/2022 Reviewed by: Allie Prado OCCA - Fully Assessed Reason for Visit: Medication Authorization [1699] Prescriptions as of 02/13/2023 - QUEtiapine (SEROQUEL) 50 mg tablet take 1 tablet by mouth three times daily as needed for anxiety - erenumab-aooe (AIMOVIG AUTOINJECTOR) 70 mg/mL auto-injector Inject 1 mL subcutaneously once every month. - QUEtiapine (SEROQUEL) 300 mg tablet Take 1 tablet by mouth daily at bedtime. - rizatriptan (MAXALT-INTERACTIVE ART DIRECTOR) 10 mg disintegrating tablet Take 1 tablet by mouth as needed (at onset of headache. May repeat after 2 hours.). Do not exceed 30 mg per day. - promethazine (PHENERGAN) 25 mg tablet 1 po tid prn headache or nausea - lacosamide (VIMPAT) 100 mg tab Take 1 tablet by mouth twice daily. - clonazePAM (KLONOPIN) 2 mg tablet Take 1 tablet by mouth three times daily for 180 days. - sertraline (ZOLOFT) 100 mg tablet Take 3 tablets by mouth once daily. - nadolol (CORGARD) 80 mg tablet Take 1 tablet by mouth once daily. - benzocaine-menthol (CEPACOL) 15-3.6 mg lozg Use 1 Lozenge as instructed every 2 hours as needed. - LORazepam (ATIVAN) 1 mg tablet Take 1 tablet by mouth as needed (for seizure lasting >3 minutes. Max 2 doses in 24 hours.) for up to 180 days. - CPAP Change the pressure of autoBipap with EPAP 5-15 mh2o and PS 4-8cmh2O. His DME company is [employer] mask to fit patient preference, ramp, humidification and unlimited supplies Please send us machine download in 1 month - CPAP Please send us machine download in 1 month - LORazepam (ATIVAN) 1 mg tablet Take 1 tablet by mouth as needed (for seizure lasting >3 minutes. Max 2 doses in 24 hours.) for up to 180 days. - Cetirizine 10 mg cap Take 1-2 tablets by mouth as needed. - fluticasone (FLONASE) 50 mcg/actuation nasal spray Use 1 [place] in each nostril twice daily. - albuterol HFA (PROVENTIL HFA, VENTOLIN HFA) 90 mcg/actuation inhaler Inhale 1-2 Puffs as instructed as needed for Wheezing/Shortness of Breath. Problem List As Of Date 02/10/2023 Noted Resolved Epilepsy (HCC) [G40.909] 06/18/2004 Epilepsy with altered consciousness without int*07/31/2010 Depression with anxiety [F41.8] 01/12/2014 Respiratory failure requiring intubation (HCC) *04/07/2016 Acute respiratory failure (HCC) [J96.00] 04/07/2016 03/26/2019 Hx of suicide attempt [Z91.51] 04/07/2016 Bipolar II disorder (HCC) [F31.81] 07/02/2016 Obesity, Class I, BMI 30-34.9 [E66.9] 11/24/2017 Partial epilepsy with impairment of consciousne*01/12/2018 Gastroesophageal reflux disease without esophag*02/03/2018 S/P placement of VNS (vagus nerve stimulation) *12/20/2018 Psychophysiologic insomnia [F51.04] 06/20/2020 HIMA (obstructive sleep apnea) [G47.33] 06/20/2020 Generalized epilepsy (HCC) [G40.309] 09/20/2020 Acute postoperative pain [G89.18] 09/21/2020 Complex partial seizures evolving to generalize*02/12/2021 Recurrent major depression in partial remission*09/02/2021 Migraine without aura, intractable, with status*12/22/2022 Encounter Status:Closed by REINA HELMS on 02/13/23 [facility] ECG 12 lead ECGon 01-01-2023 ECG 12 lead ECG [facility] [place] [address] Electrocardiograph Report Signed Patient: Bishnu Coles MR#: [id number] 3 : 1980 Acct:[id number] Age/Sex: 42 / M ADM Date: 01/01/23 Loc: ER Room: Type: [facility] ER Attending Dr: Ordering Provider: Davis Mir DO Date of Service: 01/01/23 ECG/ECG 12 lead ECG: Seizure Copies to: Test Reason : Blood Pressure : / mmHG Vent. Rate : 099 BPM Atrial Rate : 099 BPM P-R Int : 160 ms QRS Dur : 096 ms QT Int : 350 ms P-R-T Axes : 019 013 063 degrees QTc Int : 449 ms Normal sinus rhythm Inferior infarct , age undetermined Possible Anterior infarct , age undetermined Abnormal ECG When compared with ECG of 07-SEP-2018 17:17, No significant change was found Confirmed by LEWIS DOMINGUEZ MD ([id number]) on 01/02/2023 3:26:06 PM Referred By: Electronically Signed By:LEWIS DOMINGUEZ MD Transcribed By: MUS Signed By Lewis Dominguez MD [id number] [facility] CNCOon 12-16-2022 CNCO Letter Text Normal [facility] CNOVon 12-16-2022 CNOV Office Visit (NE50MN ) BISHNU COLES ([id number]) 1980 M Date Time Provider Department 12/16/22 3:00 PM LINO MENDIOLA NE50MN During your visit today, we recorded the following information about you: Pulse Blood pressure Weight Height 83/minute 144/86 95.3 kg 1.778 m Lino Mendiola MD 12/22/2022 9:44 PM Signed [facility] Patient: Bishnu Coles : 1980 CLINIC NOTE -FOLLOW UP December 16, 2022 CHIEF COMPLAINT: Patient presents with: Follow Up HISTORY SINCE LAST VISIT: The patient has returned for follow-up regarding VNS. Bishnu Coles is a 42 year old right handed male with a history of medically intractable left temporal lobe epilepsy since age 5 who presents for follow up. He had a VNS replacement in June and then again in September 2020 (Wiring was replaced). He had some tingling in his left arm and it had to be slowly turned up. He has not had any seizures since our last visit (last GTC 2012). He has had a headache in the left temporal region for the past several weeks. He has constant headache that has not affected his vision and is not associated with photophobia. He has exacerbations of the pain and has to stop everything he is doing until it gets better. He went to the ED on 12/04/[address] brain. He also received toradol, zofran and Dilaudid (that brought his headache down to a 6/10). He called my office and was prescribed Indomethacin with little relief. He has not been able to get into the headache clinic. He is drinking gatoraide and water through out the day. He has a history of anxiety, obstructive sleep apnea, migraines and medically intractable left temporal lobe epilepsy, diagnosed in 2004 at [facility]. He did not want to pursue surgery at that time due to concerns of memory decline and had a VNS implanted. He has had multiple revisions, the last of which was in 01/2013 at [place]. He feels that his VNS has stopped working because his auras have returned, but his battery is at 75%. His PCP Dr. Nunez who has been managing his epilepsy locally referred him back to [facility] to discuss further options. He is open to a repeat presurgical evaluation at this time. Last reported seizure was 2012. Interrogated June 03, 2017 Output current 3.00 mAmps Signal frequency 25 Hz Pulse width 500 msec Signal on time 30 sec Signal off time 0.8min Magnet current 3.25 mAmps Magnet on time 60 sec Magnet pulse width 500 msec Settings not changed. Estimated battery life of 50%. [facility] 105 Serial# [id number] IMP: 04/02/2016 Communication: OK Output current: OK Lead IMP: OK Impedance 2038 ohms IFI:No MEDICATIONS: Current Outpatient Medications Medication Sig rizatriptan (MAXALT-INTERACTIVE ART DIRECTOR) 10 mg disintegrating tablet Take 1 tablet by mouth as needed (at onset of headache. May repeat after 2 hours.). Do not exceed 30 mg per day. promethazine (PHENERGAN) 25 mg tablet 1 po tid prn headache or nausea QUEtiapine (SEROQUEL) 400 mg tablet Take 1 tablet by mouth daily at bedtime. QUEtiapine (SEROQUEL) 50 mg tablet Take 1 tablet by mouth three times daily as needed (Anxiety). lacosamide (VIMPAT) 100 mg tab Take 1 tablet by mouth twice daily. clonazePAM (KLONOPIN) 2 mg tablet Take 1 tablet by mouth three times daily for 180 days. sertraline (ZOLOFT) 100 mg tablet Take 3 tablets by mouth once daily. galcanezumab-gnlm (EMGALITY PEN) 120 mg/mL pen Inject 1 mL subcutaneously once every month. Do not shake. benzocaine-menthol (CEPACOL) 15-3.6 mg lozg Use 1 Lozenge as instructed every 2 hours as needed. CPAP Change the pressure of autoBipap with EPAP 5-15 mh2o and PS 4-8cmh2O. His DME company is [employer] , new mask to fit patient preference, ramp, humidification and unlimited supplies Please send us machine download in 1 month CPAP Please send us machine download in 1 month Cetirizine 10 mg cap Take 1-2 tablets by mouth as needed. fluticasone (FLONASE) 50 mcg/actuation nasal spray Use 1 [place] in each nostril twice daily. albuterol HFA (PROVENTIL HFA, VENTOLIN HFA) 90 mcg/actuation inhaler Inhale 1-2 Puffs as instructed as needed for Wheezing/Shortness of Breath. indomethacin ER 75 mg CR capsule Take 1 capsule by mouth twice daily with meals. nadolol (CORGARD) 80 mg tablet Take 1 tablet by mouth once daily. QUEtiapine (SEROQUEL) 100 mg tablet Take 1 tablet by mouth daily at bedtime. Take in addition to 300 mg tab for total of 400 mg at bedtime LORazepam (ATIVAN) 1 mg tablet Take 1 tablet by mouth as needed (for seizure lasting >3 minutes. Max 2 doses in 24 hours.) for up to 180 days. LORazepam (ATIVAN) 1 mg tablet Take 1 tablet by mouth as needed (for seizure lasting >3 minutes. Max 2 doses in 24 hours.) for up to 180 days. No current facility-administered medications for this visit. PAST MEDICAL HISTORY: PAST ME (more content not included)... Normal [facility] Office Visit (EPILMN ) BISHNU COLES ([id number]) 1980 M Date Time Provider Department 12/16/22 1:00 PM DIAKONOVA-ABDIAZIZ, ERVIN EPILMN During your visit today, we recorded the following information about you: Ervin Grant, PhD 12/16/2022 3:[address] [facility] INITIAL PSYCHOLOGY EVALUATION The patient was informed that this interview was only for the purpose of assessing the presenting problem, for diagnosis and treatment planning and/or to make treatment recommendations. The patient agreed that the evaluation would not be used for forensic, disability, or child custody purposes. The following history is obtained from the patient except when noted. The content acquired from chart review has been confirmed with the patient and discrepancies were noted if any. Limits of confidentiality were discussed. 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 REFERRED FROM: [facility] REFERRED BY: Michael Cordoba APRN.GUT SNATCHER PRESENTING PROBLEM: Pt w/ epilepsy and multiple comorbid psych diagnoses, complains of recent increases in anxiety, irritability, inability to deal with stressors, feeling overwhelmed; feels like stress and anxiety will trigger seizure episodes and SI (which he had in the past). Driving: Yes Memory Problem or Cognitive Complaints: Yes If yes, describe: Comorbid Epilepsy Diagnosis: Yes If yes: Date diagnosis received: At age 5 Current status: Epilepsy in Remission On AEDs; Childhood Epilepsy Brain surgery for epilepsy: No; has VNS device If yes, date of surgery and outcome: CURRENT PSYCHOTROPIC AND ANTIEPILEPTIC MEDICATIONS: QUEtiapine (SEROQUEL) 400 mg tablet QUEtiapine (SEROQUEL) 50 mg tablet lacosamide (VIMPAT) 100 mg tab clonazePAM (KLONOPIN) 2 mg tablet sertraline (ZOLOFT) 100 mg tablet QUEtiapine (SEROQUEL) 100 mg tablet LORazepam (ATIVAN) 1 mg tablet indomethacin (INDOCIN) 50 mg capsule LORazepam (ATIVAN) 1 mg tablet COMMON MEDICAL COMORBIDITY: migraines, insomnia PREVIOUS MENTAL HEALTH TREATMENT: Current psych diagnoses: Bipolar II DO PTSD Depression with anxiety Pt admits to history of self harm or suicidal attempt -- attempted 3 times by OD (now medications are dispensed at home via [facility] so pt does not have access to medications). Currently no SI intent or plan reported. Pt has a safety plan in place (call hotline, call sister, go to nearest ED.) Current therapist:none Current psychiatrist:Melly Newton MD Previous counseling for PNES: Yes; pt participated in several sessions on 12-week CBT program at [facility] in 2021 Previous Intensive Out Patient Treatment for MH: No Previous Inpatient Psychiatric Admission for MH: No Previous ECT for MH: No CURRENT SYMPTOMS: Persistent Depressed mood or hopelessness: Yes Sleep:difficulty staying asleep Interest:good Guilt or worthlessness: a bit Energy: good Concentration: fair Appetite: normal Psychomotor Activity: psychomotor activity was WNL. Memory: Good, Fair Anxiety: moderate Panic Disorder: palpitations/pounding heart and accelerated heart rate Obsessions: none Compulsions: none Maricruz/Hypomania: Periods of abnormally elevated mood, Increased activity, Decreased need for sleep, Racing thoughts, and Easily distracted Eating Disorder: Patient denies any eating disorder behaviors. ADHD: denied Trauma: sexual PTSD sx: intrusive memories, flashbacks, difficulty falling or staying asleep, poor concentration, persistent irritability, significant physiological reactions triggered by trauma reminders, avoidance of distressing memories, thoughts or feelings, more frequent negative self criticisms, more frequent negative beliefs about others or the world, Psychosis: Denies any auditory / visual hallucination or paranoid ideation. Self mutilation: Denies Suicidal/Homicidal ideation: Thoughts-No plan, No means, No intent SUICIDE RISK ASSESSMENT: Suicide attempts: Patient denies previous suicide attempts. Risk factors:None, Previous suicide attempt(s), History of mental disorder, Impulsive or aggressive tendencies, Isolation, and Feelings of helplessness Protective factors: Effective and accessible clinical care, Strong support system, Strong ties to medical/mental heatlh professionals, Non-violent conflict resolution SUBSTANCE USE: ETOH: No If yes, describe: Tobacco/cigarettes: No If yes, describe: Marijuana: No If yes, describe: Other Illicit Drugs: No If yes, describe: Prescription medication dependence problems past or current: No Previous evaluation, diagnosis or negrita (more content not included)... Normal [facility] Leela 12-16-2022 ALIRIO Telephone (NE50MN) SANKETBISHNU Morales ([id number]) 1980 M Date Time Provider Department 12/16/22 LINO MENDIOLA NE50MN During your visit today, we recorded the following information about you: Marleni Arriola 12/16/2022 4:10 PM Signed Medication Concern Person Calling [facility] Name of medication Indomethacin ER 75 Concern with medication requires PA; asked if prefer sending alternative Patient of Michaelle Guardado, NICHOLAS 12/16/2022 4:52 PM Signed Spoke to patient. He has the IR rx prescribed last week. He has not had [facility] relief. Will submit PA and he should continue to use IR in the meantime. Spoke to pharmacy to obtain PA information. BIN: [id number] PCN: part D Group: [id number] ID#: [id number] PA submitted on [facility]: [place]: [id number] - PA [employer] 4-Part Electronic PA Form. Urgent review requested. To check for an update later, open this request again from your dashboard. If you have any questions, please contact [employer] at . NICHOLAS Jarrell Nancy 12/18/2022 7:43 AM Signed Received approval for Indomethacin from [employer]. Approval Dates: 12/16/22-05/17/23. REF #: none given Approval uploaded to [employer]. Roula Velasquez RN 12/18/2022 9:43 AM Signed Pharmacy notified. Roula Velasquez RN Allergies As of Date: 12/16/2022 Noted Allergy Reaction KEPPRA (LEVETIRACETAM) 07/31/2010 14 - Other: See Comments Comments: Increases his ADHD KETOROLAC TROMETHAMINE 09/14/2016 16 - Unknown Comments: unknown PRISTIQ (DESVENLAFAXINE) 01/12/2014 14 - Other: See Comments Comments: sz Date Reviewed: 12/16/2022 Reviewed by: Allie Prado OCCA - Fully Assessed Reason for Visit: Medication Concern [Other] Cmt: Indomethacin Prescriptions as of 12/18/2022 - methylPREDNISolone (MEDROL, TORY,) 4 mg Dose-Pack Use as directed. - indomethacin ER 75 mg CR capsule Take 1 capsule by mouth twice daily with meals. - rizatriptan (MAXALT-INTERACTIVE ART DIRECTOR) 10 mg disintegrating tablet Take 1 tablet by mouth as needed (at onset of headache. May repeat after 2 hours.). Do not exceed 30 mg per day. - promethazine (PHENERGAN) 25 mg tablet 1 po tid prn headache or nausea - QUEtiapine (SEROQUEL) 400 mg tablet Take 1 tablet by mouth daily at bedtime. - QUEtiapine (SEROQUEL) 50 mg tablet Take 1 tablet by mouth three times daily as needed (Anxiety). - lacosamide (VIMPAT) 100 mg tab Take 1 tablet by mouth twice daily. - clonazePAM (KLONOPIN) 2 mg tablet Take 1 tablet by mouth three times daily for 180 days. - sertraline (ZOLOFT) 100 mg tablet Take 3 tablets by mouth once daily. - galcanezumab-gnlm (EMGALITY PEN) 120 mg/mL pen Inject 1 mL subcutaneously once every month. Do not shake. - nadolol (CORGARD) 80 mg tablet Take 1 tablet by mouth once daily. - benzocaine-menthol (CEPACOL) 15-3.6 mg lozg Use 1 Lozenge as instructed every 2 hours as needed. - QUEtiapine (SEROQUEL) 100 mg tablet Take 1 tablet by mouth daily at bedtime. Take in addition to 300 mg tab for total of 400 mg at bedtime - LORazepam (ATIVAN) 1 mg tablet Take 1 tablet by mouth as needed (for seizure lasting >3 minutes. Max 2 doses in 24 hours.) for up to 180 days. - CPAP Change the pressure of autoBipap with EPAP 5-15 mh2o and PS 4-8cmh2O. His DME company is [employer] , [employer] mask to fit patient preference, ramp, humidification and unlimited supplies Please send us machine download in 1 month - CPAP Please send us machine download in 1 month - LORazepam (ATIVAN) 1 mg tablet Take 1 tablet by mouth as needed (for seizure lasting >3 minutes. Max 2 doses in 24 hours.) for up to 180 days. - Cetirizine 10 mg cap Take 1-2 tablets by mouth as needed. - fluticasone (FLONASE) 50 mcg/actuation nasal spray Use 1 [place] in each nostril twice daily. - albuterol HFA (PROVENTIL HFA, VENTOLIN HFA) 90 mcg/actuation inhaler Inhale 1-2 Puffs as instructed as needed for Wheezing/Shortness of Breath. Problem List As Of Date 12/16/2022 Noted Resolved Epilepsy (HCC) [G40.909] 06/18/2004 Epilepsy with altered consciousness without int*07/31/2010 Depression with anxiety [F41.8] 01/12/2014 Respiratory failure requiring intubation ([facility]) *04/07/2016 Acute respiratory failure ([facility]) [J96.00] 04/07/2016 03/26/2019 Hx of suicide attempt [Z91.51] 04/07/2016 Bipolar II disorder ([facility]) [F31.81] 07/02/2016 Obesity, Class I, BMI 30-34.9 [E66.9] 11/24/2017 Partial epilepsy with impairment of consciousne*01/12/2018 Gastroesophageal reflux disease without esophag*02/03/2018 S/P placement of VNS (vagus nerve stimulation) *12/20/2018 Psychophysiologic insomnia [F51.04] 06/20/2020 HIMA (obstructive sleep apnea) [G47.33] 06/20/2020 Generalized epilepsy (HCC) [G40.309] 09/20/2020 Acute postoperative pain [G89.18] 09/21/2020 Complex partial seizures evolving to generalize*02/12/2021 Recurrent major depression in partial remissio (more content not included)... Normal [facility] BISHNU COLES ([id number]) 1980 M Date Time Provider Department 12/11/22 LINO MENDIOLA NE50MN During your visit today, we recorded the following information about you: Stephany Carbajal 12/11/2022 12:59 PM Signed Medication Concern Person Calling Bishnu Coles (home) Name of medication was giving meds in the hospital to bring dwn pain, He is still having pain Concern with medication headache on left side of yazdanism Patient of Michaelle Guardado RN 12/11/2022 1:41 PM Signed 11/04/22 Visit: IMPRESSION: Bishnu Coles is a 42 year old right handed male with a history of medically intractable left temporal lobe epilepsy since age 5 who presents for follow up. He had a VNS replacement in June and then again in September 2020 (Wiring was replaced). He had some tingling in his left arm and it had to be slowly turned up. He has not had any seizures since our last visit (last GTC 2012). He is not having any problems with his VNS, but is concerned about when the battery will need to be replaced. (Battery on interrogation today was 25-50%. PLAN: - VNS interrogated October 27, 2022 : [facility] VNS Seq. No.: Aspire SR [id number] VNS Serial No.: [id number] Date of Implantation: 2020 Stimulation Parameters: Current (mA): 1.625 Frequency (Hz): 25 Pulse width (ms): 500 Signal on-time (s): 30 Signal off-time (min.): 0.8 AutoStim Current (mA): Disabled AutoStim pulse width (ms): Disabled AutoStim signal on-time (s): Disabled Magnet Current (mA): 1.875 Magnet pulse width (ms): 500 Magnet signal on-time (s): 60 Lead impedance: 2661 ohms Generator Battery 25-50% - Continue Vimpat at 100mg BID - Continue Klonopin 2mg TID The patient was scheduled for a return visit in 6 months Lino Mendiola MD Spoke to Bishnu, he is tearful and nervous. The past two weeks he started having left temporal head pain and pressure, where my epilepsy is . He is fearful of having seizures start again. He went to local [place] ED a week ago and was given an IV cocktail and muscle relaxant upon d/c. Not prescribed any medication for home. CT scan negative. He has tried motrin and aleve. He takes maxalt per [facility] provider, but doses per month are limited. He can not get a visit with [facility] center until Jan/Feb. He had a visit with PCP a week prior to symptoms starting and no issues at the visit with his general health. He asks if he should have a sooner visit with epilepsy or should he drive 30 minutes to [facility] ED or can any medication be prescribed by this office? Routed for recommendations. NICHOLAS Jarrell Joyce, RN 12/12/2022 10:49 AM Signed Per Lizeth Lucas CNP: ED or PCP until he can get into Headache clinic. He has Maxalt and Emgality listed on his med page. Patient has a visit with psychologist on ThuDec 16 with psychology at [facility]. Email to Dr. Mendiola for recommendations and possible add on visit. NICHOLAS Jarrell Joyce, RN 12/12/2022 3:[address] Mendiola will add patient on at 3 pm, 12/16/22 for an office visit. Per Dr. Mendiola may prescribe indomethacin 50 mg, twice daily for headache until his visit. Patient accepted the visit and would like rx sent to [address] [address]. Routed for RX to [facility]. NICHOLAS Jarrell Elizabeth, PA-C 12/15/2022 10:03 AM Signed See Rx sent by Lizeth Lucas APRN on 12/12/2022 to [facility], but she documented talking to [facility] pharmacy in refill encounter? Visit tomorrow, can discuss med plan further at that time Yasmin Ma PA-C Allergies As of Date: 12/11/2022 Noted Allergy Reaction KEPPRA (LEVETIRACETAM) 07/31/2010 14 - Other: See Comments Comments: Increases his ADHD KETOROLAC TROMETHAMINE 09/14/2016 16 - Unknown Comments: unknown PRISTIQ (DESVENLAFAXINE) 01/12/2014 14 - Other: See Comments Comments: sz Date Reviewed: 10/27/2022 Reviewed by: Paige Nino LPN - Fully Assessed Reason for Visit: medication concern [Other] Prescriptions as of 12/15/2022 - rizatriptan (MAXALT-INTERACTIVE ART DIRECTOR) 10 mg disintegrating tablet Take 1 tablet by mouth as needed (at onset of headache. May repeat after 2 hours.). Do not exceed 30 mg per day. - promethazine (PHENERGAN) 25 mg tablet 1 po tid prn headache or nausea - indomethacin (INDOCIN) 50 mg capsule Take 1 capsule by mouth twice daily with meals. - QUEtiapine (SEROQUEL) 400 mg tablet Take 1 tablet by mouth daily at bedtime. - QUEtiapine (SEROQUEL) 50 mg tablet Take 1 tablet by mouth three times daily as needed (Anxiety). - lacosamide (VIMPAT) 100 mg tab Take 1 tablet by mouth twice daily. - clonazePAM (KLONOPIN) 2 mg tablet Take 1 tablet by mouth three times daily for 180 days. - sertraline (ZOLOFT) 100 mg tablet Take 3 tablets by mouth once daily. - galcane (more content not included)... Normal [facility] 12-10-2022 [facility] Telephone (NEADFV) BISHNU COLES ([id number]) 1980 M Date Time Provider Department 12/10/22 BILLIE ALONSO During your visit today, we recorded the following information about you: Alicia Boyce 12/10/2022 12:08 PM Signed Received fax from [facility] with CT brain report, ER notes and labs. Scanned into Epic. Stephanie Liao 12/10/2022 12:14 PM Signed Imaging results forwarded to provider for review Allergies As of Date: 12/10/2022 Noted Allergy Reaction KEPPRA (LEVETIRACETAM) 07/31/2010 14 - Other: See Comments Comments: Increases his ADHD KETOROLAC TROMETHAMINE 09/14/2016 16 - Unknown Comments: unknown PRISTIQ (DESVENLAFAXINE) 01/12/2014 14 - Other: See Comments Comments: sz Date Reviewed: 10/27/2022 Reviewed by: Paige Nino LPN - Fully Assessed Reason for Visit: Received Outside Medical Records [[id number]] Cmt: [facility] Prescriptions as of 01/29/2023 - QUEtiapine (SEROQUEL) 300 mg tablet Take 1 tablet by mouth daily at bedtime. - EMGALITY PEN 120 mg/mL pen INJECT 1 MILLILITER SUBCUTANEOUSLY ONCE EVERY MONTH. DO NOT SHAKE. - rizatriptan (MAXALT-INTERACTIVE ART DIRECTOR) 10 mg disintegrating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 The patient is free from signs and symptoms of infection Skin Assessment (Pre Procedure) FT Pre-Care Text: Implements protective measures to prevent skin/ tissue injury due to thermal or mechanical sources Evaluates for signs and symptoms of physical injury to skin and tissue Entry 1 Skin Integrity Intact, [place], Warm, and Skin Abnormality No Dry Outcomes Met? Yes Last Modified By: Alyssa Chávez RN 09/29/22 11:22:51 Post-Care Text: The patient is free from signs and symptoms of injury caused by extraneous objects Patient Positioning FT Pre-Care Text: Identifies physical alterations that require additional precautions for procedure-specific positioning, verifies presence of prosthetics or corrective devices, positions the patient, evaluates the patient for signs and symptoms of injury as a result of positioning Entry 1 Proced (more content not included)... Normal [facility] Preoperative Documentson Preoperative Documents [id number] .00CD:127 Normal [facility] Progress Note-Physicianon Progress Note-Physician Patient: BISHNU COLES Age: 41 years Sex: Male : 1980 Associated Diagnoses: None Author: MD Lina, Kelli Jay Postoperative Information Postoperative disposition: Postoperative disposition: To PACU. Optimetrix number: Optimetrix number [id number]. Anesthetic utilized: General. Health Status Allergies: Allergic Reactions (Selected) Severity Not Documented Keppra- Unknown. Pristiq- No reactions were documented. Physical Examination VS/Measurements Pain Assessment: Controlled. General: Awake, Alert, Appropriate. Respiratory: Adequate air exchange. Cardiovascular: Stable, Normal peripheral perfusion. Neurological: Normal sensory function, Normal motor function. Assessment Anesthetic outcome No anesthetic complications noted. Adequate pain relief. able to void without difficulty, able to ambulate with assist, tolerating PO intake, no N/V. Review / Management Condition: Stable. Plan Transfer/Discharge: Transfer/Discharge Discharge when meets criteria ( To home ). Normal [facility] Comment on above: Result Comment: Elec tronically Signed By: MD Lina, Kelli Jay\.br\Date and Time Signed: 09/30/22 11:50 EDT Progress Note-Physician Patient: BISHNU COLES Age: 41 years Sex: Male : 1980 Associated Diagnoses: None Author: MD Lina, Kelli Jay Preoperative Information Time patient last ate or drank:=== (npo 8 hours) Anesthesia history: Patient history: No prior anesthesia problems. Re-evaluation prior to induction: Completed, Initial evaluation reviewed. Review of Systems Respiratory: No shortness of breath. Cardiovascular: No chest pain. Hematology/Lymphatics: No bruising tendency, No bleeding tendency. Health Status Allergies: Allergic Reactions (All) Severity Not Documented Keppra- Unknown. Pristiq- No reactions were documented. Canceled/Inactive Reactions (All) No Known Allergies Current medications: (Selected) Documented Medications Documented Cepacol Sore Throat 15 mg-3.6 mg mucous membrane lozenge: 1 lozenge(s), Oral, q2hr Sore throat, Refill(s) 0 Emgality Prefilled Pen 120 mg/mL subcutaneous solution: 120 mg, SubCutaneous, qMonth Klonopin 2 mg oral tablet: 2 mg = 1 tab(s), Oral, TID, Refills(s) 0, Seizure Pro-Air HFA CFC free 90 mcg/inh MDI: 1 or 2 puffs, Inhalation, QID Shortness of breath or wheezing, Refill(s) 0 Zyrtec: 10 mg, Oral, Daily, 1 or 2 tabs, Refills(s) 0, Allergy symptoms fluticasone nasal: one spray, Nasal, Daily, Refill(s) 0, in each nostril, Allergy symptoms lacosamide: 100 mg, Oral, TID, Seizure lorazepam: 1 mg, Oral, prn for seizure lasting >3 minutes, Refills(s) 0, Seizure nadolol: 80 mg, Oral, Daily, High blood pressure promethazine: 25 mg, Oral, TID, PRN as needed for nausea/vomiting, Refills(s) 0 quetiapine: 400 mg, Oral, Bedtime quetiapine: 50 mg, Oral, TID, PRN Anxiety, Refills(s) 0 rizatriptan: 10 mg, Oral, Daily, PRN Migraine headache, may repeat dose once in 2 hours, Refills(s) 0, Migraine headache sertraline 100 mg Tab: 300 mg = 3 tab(s), Oral, Bedtime, Depression sumatriptan: 100 mg, Oral, Once, PRN Migraine headache, may repeat dose in 2 hours if needed, Refills(s) 0, Migraine headache Problem list: All Problems adhd / SNOMED CT 8584985175 / Confirmed anxiety / SNOMED CT 65210307 / Confirmed apnea / SNOMED CT 6532733 / Confirmed Bipolar 2 disorder / SNOMED CT 545456558 / Confirmed Bipolar disorder / SNOMED CT 93634012 / Confirmed Epilepsy / SNOMED CT 293475993 / Confirmed 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 GERD (gastroesophageal reflux disease) / SNOMED CT 716005122 / Confirmed Obesity / SNOMED CT 5651643575 / Confirmed HIMA treated with BiPAP / SNOMED CT 416593551 / Confirmed 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 tachycardia / SNOMED CT 5311820 / Confirmed vagel nerve stimulator / Confirmed Resolved: ADHD - Attention deficit disorder with hyperactivity / SNOMED CT 3267643317 Resolved: ADHD - Attention deficit disorder with hyperactivity / SNOMED CT 7918357221 Resolved: Attempted suicide / SNOMED CT 337130407 2016 Resolved: Depression / SNOMED CT 125183645 Resolved: depression / SNOMED CT 27992292 Resolved: MIGRAINE / ICD-9-CM 346 Resolved: Respiratory failure / SNOMED CT 5078057608 respiratory failure requiring intubation after suicide attempt in 2016 Resolved: Tachycardia / SNOMED CT 2697875744 Resolved: Tachycardia / SNOMED CT 2534822073 Histories Past Medical History: Active Epilepsy (619957883) Comments: 09/19/2022 EDT 14:25 EDT - Janay Aranda LPN 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 Sleep apnea (901887901) Comments: 09/19/2022 EDT 12:41 EDT - Janay Aranda LPN uses Bipap seizures (948511394) tachycardia (1849934) adhd (0346387857) anxiety (83424699) apnea (8586454) vagel nerve stimulator Resolved MIGRAINE (346): Resolved. Tachycardia (1824739984): Resolved. Depression (021563243): Resolved. ADHD - Attention deficit disorder with hyperactivity (7387848785): Resolved. Tachycardia (9799710454): Resolved. ADHD - Attention deficit disorder with hyperactivity (4015745870): Resolved. depression (81737633): Resolved. Attempted suicide (045693040): Resolved. Comments: 09/19/2022 EDT 14:19 EDT - Janay Aranda LPN 2016 Respiratory failure (9047081791): Resolved. Comments: 09/19/2022 EDT 14:21 EDT - Janay Aranda LPN respiratory failure requiring intubation after suicide attempt in 2016 Family History: Primary malignant neoplasm of colon Grandparent Hypertension Mother Father P (more content not included)... Normal [facility] Comment on above: Result Comment: Elec tronically Signed By: MD Lina, Kelli Jay\.br\Date and Time Signed: 09/30/22 11:48 EDT Consent for Treatmenton 09-15 Consent for Treatment [id number] 0CD:127 Normal [facility] Discharge Instructionson Discharge Instructions BISHNU COLES :1980 Visit Date:09/29/2022 Inpatient Discharge Instructions Your Care Team Admitting Physician - Scott Nassar DO Referring Physician Scott Bustillo DO Reason for Your Visit LEFT KNEE MEDIAL MENISCAL TEAR Your Diagnosis Acute medial meniscus tear of left knee This Is Your Medications List albuterol (Pro-Air HFA CFC free 90 mcg/inh MDI) benzocaine-menthol topical (Cepacol Sore Throat 15 mg-3.6 mg mucous membrane lozenge) cetirizine (Zyrtec) clonazepam (Klonopin 2 mg oral tablet) fluticasone nasal galcanezumab (Emgality Prefilled Pen 120 mg/mL subcutaneous solution) lacosamide lorazepam nadolol promethazine quetiapine quetiapine rizatriptan sertraline (sertraline 100 mg Tab) sumatriptan Procedure History Laparoscopic appendectomy (01/04/2016), Vagus nerve stimulator (2000), History of tonsillectomy. What to do next Instructions From Your Doctor Event Name Event Result Discharge Instructions Freetext Aspirin 325mg EC oral daily with food for 3 weeks for blood clot prevention. Discharge Activity Ambulate as tolerated, Arrange for a responsible adult supervision for 24 hours, Expect mild pain, Expect minimal amount of drainage and/or bleeding, Do not lift more than 5 lbs Discharge Restrictions No driving for 24 hrs, Do not operate machinery or tools, Do not make important decisions for 24 hours, Do not drink alcoholic beverages for 24 hours Discharge Diet(s) Regular, Drink liquids and eat a light meal Call Your Doctor For Persistent or heavy bleeding, Temperature above 101.5 degrees, Redness, swelling, or pus at operative site, Severe pain at the operative site, Persistent vomiting Wound Care Remove dressing as instructed Remove Dressing On 2 Discharge Instructions Discharge Instructions New Follow Up Appointments after Discharge Follow Up with TYLER Rios When: 10/10/2022 09:45 AM EDT Comments: Keep scheduled appointment Where: [address] [place] [address]- Business (1) Medications What How Much When Instructions Next Dose Unchanged albuterol (Pro-Air HFA CFC free 90 mcg/ inh MDI) 1 or 2 puffs Inhalation 4 times a day as needed for Shortness of breath or wheezing Unchanged benzocaine-menthol topical (Cepacol Sore Throat 15 mg-3.6 mg mucous membrane lozenge) 1 Lozenges By Mouth Every 2 hours as needed for Sore throat Unchanged cetirizine (Zyrtec) 10 Milligram By Mouth Every day 1 or 2 tabs Unchanged clonazepam (Klonopin 2 mg oral tablet) 1 Tablets By Mouth 3 times a day Unchanged fluticasone nasal one spray Nasal Inhalation Every day in each nostril Unchanged galcanezumab (Emgality Prefilled Pen 120 mg/ mL subcutaneous solution) 120 Milligram Subcutaneous Once a month Unchanged lacosamide 100 Milligram By Mouth 3 times a day Unchanged lorazepam 1 Milligram By Mouth prn for seizure lasting >3 minutes Unchanged nadolol 80 Milligram By Mouth Every day Unchanged promethazine 25 Milligram By Mouth 3 times a day as needed for as needed for nausea/vomiting Unchanged quetiapine 400 Milligram By Mouth At bedtime Unchanged quetiapine 50 Milligram By Mouth 3 times a day as needed for Anxiety Unchanged rizatriptan 10 Milligram By Mouth Every day as needed for Migraine headache may repeat dose once in 2 hours Unchanged sertraline (sertraline 100 mg Tab) 3 Tablets By Mouth At bedtime Unchanged sumatriptan 100 Milligram By Mouth Once as needed for Migraine headache may repeat dose in 2 hours if needed Allergies Keppra (Unknown) Pristiq Problems Ongoing - Any problem that you are currently receiving treatment for. adhd anxiety apnea Bipolar 2 disorder Bipolar disorder Epilepsy GERD (gastroesophageal reflux disease) Obesity Partial epilepsy Post traumatic stress disorder (PTSD) Psychophysiologic insomnia seizures Seizures Sleep apnea Smoker tachycardia vagel nerve stimulator Historical - Any problem that you are no longer receiving treatment for. ADHD - Attention deficit disorder with hyperactivity ADHD - Attention deficit disorder with hyperactivity Attempted suicide Depression depression MIGRAINE Respiratory failure Tachycardia Tachycardia Education Materials [place], [place] [facility] DISCHARGE INSTRUCTIONS: KNEE ARTHROSCOPY Diet Begin with a liquid diet and advance to your normal diet as tolerated. Activity You may gradually increase your activity as tolerated. Until your first post-operative visit elevate your knee higher than your heart, whenever you are sitting or lying down. Knee swelling will gradually decrease after surgery. Increased swelling is usually a sign of over-activity and should be a signal for you to be less active and apply ice as needed. Your exercise program is the guerrero to suc (more content not included)... Normal [facility] Comment on above: Result Comment: Elec tronically Signed By: Ashu PETERSON, Nichole Díaz\.br\Date and Time Signed: 09/29/22 11:29 EDT H&P Updateon 09-29-2022 H&P Update [id number]. 00CD:127 Normal [facility] IntraOperative Documentson 0 09-29-2022 IntraOperative Documents [id number] CD:127 Normal [facility] Main OR PACU I Recordon 09-15 Main OR PACU I Record PACU Phase I Docum ent Type FT Summary Primary Physician: Scott Nassar DO Finalized Date/Time: 09/29/22 12:23:18 Pt. Name: BISHNU COLES/Sex: 1980 Male Med Rec #: [id number] Physician: Scott Nassar DO Financial #: [id number] Pt. Type: A Room/Bed: [place] [address] Admit/Disch: 09/29/22 08:12:54 - Institution: Case Times PACU I FT Pre-Care Text: Identifies barriers to communication and implements measures to provide psychological support Develops individualized plan of care, and ensures continuity of care Maintains patient's dignity and privacy, and maintains patient confidentiality Identifies and reports philosophical, cultural, and spiritual beliefs and values Identifies individual values and wishes concerning care Implements aseptic technique, and administers prescribed antibiotic therapy and immunizing agents as ordered Evaluates postoperative tissue perfusion Implements thermoregulation measures, and monitors body temperature Evaluates postoperative respiratory status Evaluates postoperative cardiac status Evaluates postoperative neurological status Assesses pain control, collaborated in initiating patient-controlled analgesia and implements alternative methods of pain control Verifies allergies, administers prescribed medications and solutions, evaluates response to medications Entry 1 In PACU I 09/29/22 11:26:00 Discharge from PACU 09/29/22 11:56:00 I Outcomes Met? Yes Last Modified By: Piedad Turner I 09/29/22 12:22:59 Post-Care Text: The patient demonstrates knowledge of the expected response to the operative or invasive procedure The patient's care is consistent with the individualized perioperative plan of care The patient's right to privacy is maintained The patient's value system, lifestyle, ethnicity, and culture are considered, respected, and incorporated into the perioperative plan of care The patient participates in decisions affecting his or her perioperative plan of care The patient is free from signs and symptoms of infection The patient has wound/tissue perfusion consistent with or improved from baseline levels established preoperatively The patient is at or returning to normothermia at the conclusion of the immediate postoperative period The patient's respiratory function is consistent with or improved from baseline levels established preoperatively The patient's cardiovascular status is consistent with or improved from baseline levels established preoperatively The patient's cardiovascular status is consistent with or improved from baseline levels established preoperatively The patient demonstrates and/or reports adequate pain control throughout the perioperative period The patient received appropriate medication(s), safely administered during the perioperative period Acuity Level PACU I FT Entry 1 Start Time 09/29/22 11:26:00 Stop Time 09/29/22 11:56:00 Acuity Level Acuity Level I Last Modified By: Piedad Turner I 09/29/22 12:23:14 Finalized By: Piedad Turner I Document Signatures Signed By: Piedad Turner I 09/29/22 12:23 Normal [facility] Main OR PACU II Recordon Main OR PACU II Record PACU Phase II Document Type FT Summary Primary Physician: Scott Nassar DO Finalized Date/Time: 09/29/22 13:21:13 Pt. Name: BISHNU COLES/Sex: 1980 Male Med Rec #: [id number] Physician: Scott Nassar DO Financial #: [id number] Pt. Type: A Room/Bed: [place] [address] Admit/Disch: 09/29/22 08:12:54 - 09/29/22 13:20:37 Institution: Case Times PACU II FT Pre-Care Text: Identifies barriers to communication and implements measures to provide psychological support and determines knowledge level Develops individualized plan of care, and ensures continuity of care Maintains patient's dignity and privacy, and maintains patient confidentiality Identifies and reports philosophical, cultural, and spiritual beliefs and values Identifies individual values and wishes concerning care administers prescribed antibiotic therapy and immunizing agents as ordered, Evaluates postoperative tissue perfusion Implements thermoregulation measures, and monitors body temperature Evaluates postoperative respiratory status Evaluates postoperative cardiac status Evaluates postoperative neurological status Assesses pain control, collaborated in initiating patient-controlled analgesia and implements alternative methods of pain control Verifies allergies, administers prescribed medications and solutions, evaluates response to medications Entry 1 In PACU II 09/29/22 11:55:00 Discharge from PACU 09/29/22 13:20:00 II Outcomes Met? Yes Last Modified By: Nichole Wakefield RN 09/29/22 13:21:12 Post-Care Text: The patient demonstrates knowledge of the expected response to the operative or invasive procedure The patient's care is consistent with the individualized perioperative plan of care The patient's right to privacy is maintained The patient's value system, lifestyle, ethnicity, and culture are considered, respected, and incorporated into the perioperative plan of care The patient participates in decisions affecting his or her perioperative plan of care. The patient is free from signs and symptoms of infection The patient has wound/tissue perfusion consistent with or improved from baseline levels established preoperatively The patient is at or returning to normothermia at the conclusion of the immediate postoperative period The patient's respiratory function is consistent with or improved from baseline levels established preoperatively The patient's cardiovascular status is consistent with or improved from baseline levels established preoperatively The patient's neurological status is consistent with or improved from baseline levels established preoperatively The patient demonstrates and/or reports adequate pain control throughout the perioperative period The patient received appropriate medication(s), safely administered during the perioperative period Finalized By: Nichole Wakefield RN Document Signatures Signed By: Nichole Wakefield RN 09/29/22 13:21 [facility] Main OR Preoperative Recordo n 09-29-2022 Main OR Preoperative Record PreOp Document Type FT Summary Primary Physician: Scott Nassar DO Finalized Date/Time: 09/29/22 11:32:35 Pt. Name: BISHNU COLES/Sex: 1980 Male Med Rec #: [id number] Physician: Scott Nassar DO Financial #: [id number] Pt. Type: A Room/Bed: Admit/Disch: 09/29/22 08:12:54 - Institution: Case Times PreOp FT Pre-Care Text: Verifies consent for planned procedure, identifies individual values and wishes concerning care, includes family members in perioperative teaching Entry 1 Patient Times. In Pre Surgery 09/29/22 08:20:00 Out Pre Surgery 09/29/22 10:43:00 Outcomes Met? Yes Last Modified By: Alyssa Chávez RN 09/29/22 11:32:33 Post-Care Text: The patient participates in decisions affecting his or her perioperative plan of care Finalized By: Alyssa Chávez RN Document Signatures Signed By: Alyssa Chávez RN 09/29/22 11:32 Normal [facility] Monitor Recordon 09-29-2022 Monitor Record [id number]. 00CD:127 Normal [facility] Monitor Record [id number]. 00CD:127 Normal [facility] Patient Education - Texton 0 09-29-2022 Patient Education - Text [place], [place] [facility] DISCHARGE INSTRUCTIONS: KNEE ARTHROSCOPY Diet Begin with a liquid diet and advance to your normal diet as tolerated. Activity You may gradually increase your activity as tolerated. Until your first post-operative visit elevate your knee higher than your heart, whenever you are sitting or lying down. Knee swelling will gradually decrease after surgery. Increased swelling is usually a sign of over-activity and should be a signal for you to be less active and apply ice as needed. Your exercise program is the guerrero to successful rehabilitation of your knee. Do the exercises daily as instructed. You will receive further exercises at your next visit as needed. The possible need for Physical Therapy will then be discussed. You may bear weight on your operative leg, use your crutches or walker for walking until you can lift 5 pounds with a straight leg raise on the affected side. This is important for protection of your knee after surgery. Although you will find that you can walk without crutches or walker, it is not healthy for you until you regain adequate muscle strength. Use your crutches or walker until your limp is gone. You are encouraged to bend your knee as this is comfortably tolerated. Do not forcefully bend until you have permission by your surgeon. Driving is legal, but if you are involved in an accident, you must be able to prove that you maintained full control of your vehicle. For this reason, it is advised that you do not drive until your strength returns, generally in 1-2 weeks. Similarly, all sports activities are discouraged, at least until your first post-operative visit at which time we will discuss how and when to resume sports. Increased Pain Usually this is the result of over-activity and should respond well to rest, ice and elevation. If this does not provide relief, take the pain medication as directed but do not return to activity. If severe pain persists despite rest, elevation and medication, contact your surgeon. You will be given a prescription for pain medication when you leave the hospital. Please inform us of any known drug allergy. If you have any problems with the medication, it should be discontinued and our office notified. The sensation of splashing of fluid inside the knee is not cause for concern. It represents residual fluids from surgery and they will be absorbed generally in the first few days. Elevation of the leg and application of an ice pack to the knee will minimize swelling and discomfort in the first 48 hours after surgery. Incisions The portals of entry may be sore and develop bruising over the next several days. The bruising eventually resolves and does not require any special care. There may be some numbness around the portals that can take several days or several weeks to resolve as the swelling subsides. Do not apply creams or lotions to your knee. Your portals will heal best if kept dry. [facility] Discharge Instructs for Knee Arthroscopy Page 2 Dressing A soft compression dressing has been applied to your knee. This dressing should be comfortable and absorb any leakage of fluid after surgery. Although the dressing may become moist or blood stained, this is not usually a cause for concern. If this persists beyond 2-3 days, notify your surgeon. You may remove the dressing two days after your surgery. You may possibly have tape strips or sutures under the dressing. Do not remove these if present. Apply bandaids to the operative sites and keep these clean until your first post-operative visit. Apply betadine and band-aids to the puncture wounds in the morning (and again in the evening as needed) on a daily basis. Bathing You may shower after surgery. Bathing or soaking in water should be avoided until your first post-operative visit. Keep incisions dry until healed over. Precautions If you develop fever (101 degrees or above), increasing pain (not relieved by rest, elevation, ice and medication as prescribed), redness or persistent swelling in your calves or feet that doesn't respond to elevation, please contact the office or the hospital. If you notice increasing drainage from the operative portals after the first few days, this should also be reported. Return Visit Your post-operative follow-up appointment is generally between 10 and 14 days after surgery and you will be given an appointment card. Do not hesitate to call the office or the hospital if any problems or questions arise before your appointment. Scott Nassar DO [facility] [address], [place] [address] Reviewed: 08-23 [facility] Outside Recordson 09-24-2022 Outside Records [id number] 0CD:127 [facility] Consent for Procedure/Surger yon 09-23-2022 Consent for Procedure/Surgery [id number] 00CD:127 [facility] Inpatient Patient Summaryon 09-23-2022 Inpatient Patient Summary [facility] [address], [place] [address] [facility] Clinical Discharge Instructions PERSON INFORMATION Name: BISHNU COLES [facility]#:[id number] PHYSICIANS Admitting Physician: Scott Nassar DO Attending Physician: Scott Nassar DO PCP: Erlinda Nunez MD Discharge Diagnosis: Acute medial meniscus tear of left knee Comment: PATIENT EDUCATION INFORMATION Instructions: Maday - Knee Arthroscopy (Custom) (CUSTOM) Medication Leaflets: Follow up: With: Address: When: Scott Nassar [address] [id number] [employer] (1) Comments: Keep scheduled appointment Type Location Start Finish [facility] Surgery [facility] Surgical Services 09/29/2022 11:15 AM 09/29/2022 12:00 PM Confirmed MEDICATION LIST Medications to Continue Taking That Have Changed Other Medications START: albuterol (Pro-Air HFA CFC free 90 mcg/inh MDI) 1 or 2 puffs Inhalation 4 times a day as needed Shortness of breath or wheezing. START: fluticasone nasal one spray Nasal Inhalation every day. in each nostril. START: lacosamide 100 Milligram By Mouth 3 times a day. START: lorazepam 1 Milligram By Mouth. prn for seizure lasting >3 minutes. START: sumatriptan 100 Milligram By Mouth Once as needed Migraine headache. may repeat dose in 2 hours if needed. Medications to Continue with No Changes Other Medications benzocaine-menthol topical (Cepacol Sore Throat 15 mg-3.6 mg mucous membrane lozenge) 1 Lozenges By Mouth every 2 hours as needed Sore throat. cetirizine (Zyrtec) 10 Milligram By Mouth every day. 1 or 2 tabs. clonazepam (Klonopin 2 mg oral tablet) 1 Tablets By Mouth 3 times a day. galcanezumab (Emgality Prefilled Pen 120 mg/mL subcutaneous solution) 120 Milligram Subcutaneous once a month., prevent migraines nadolol 80 Milligram By Mouth every day. promethazine 25 Milligram By Mouth 3 times a day as needed as needed for nausea/vomiting. quetiapine 400 Milligram By Mouth at bedtime., Bipolar quetiapine 50 Milligram By Mouth 3 times a day as needed Anxiety. rizatriptan 10 Milligram By Mouth every day as needed Migraine headache. may repeat dose once in 2 hours. sertraline (sertraline 100 mg Tab) 3 Tablets By Mouth at bedtime. Comment: Normal [facility] Outpatient Surgery Discharge Instructionon 09-23-2022 Outpatient Surgery Discharge Instruction [address] [address] Patient Discharge Instructions PERSON INFORMATION Name: BISHNU COLES Date of : 1980 Current Date: 09/23/2022 13:09:02 PHYSICIANS Admitting Physician: Scott Nassar DO Discharge Diagnosis: Acute medial meniscus tear of left knee BISHNU COLES has been given the following list of follow-up instructions, prescriptions, and patient education materials: PATIENT FOLLOW-UP INFORMATION Diet: Regular, Drink liquids and eat a light meal Discharge Activity: Ambulate as tolerated, Arrange for a responsible adult supervision for 24 hours, Expect mild pain, Expect minimal amount of drainage and/or bleeding, Do not lift more than 5 lbs Discharge Restrictions: No driving for 24 hrs, Do not operate machinery or tools, Do not make important decisions for 24 hours, Do not drink alcoholic beverages for 24 hours Call Your Doctor For: Persistent or heavy bleeding, Temperature above 101.5 degrees, Redness, swelling, or pus at operative site, Severe pain at the operative site, Persistent vomiting Wound Care Instructions: Remove dressing as instructed Remove Your Dressing In 2 Days Additional Instructions: Aspirin 325mg EC oral daily with food for 3 weeks for blood clot prevention. IF UNABLE TO CONTACT YOUR PHYSICIAN AND YOU FEEL IT IS AN EMERGENCY, GO TO THE NEAREST EMERGENCY ROOM OR CALL 911 I, BISHNU COLES, have received the attached patient education materials/instructions and have verbalized understanding: May we do a follow up call? Yes No I was present when discharge instructions were given Patient Signature Date Clinican/Nurse Signature ___ Date Follow up: With: Address: When: Scott Nassar [address] [place], [place] [id number] [employer] (1) Comments: Keep scheduled appointment Type Location Start [facility] Surgery [facility] Surgical Services 09/29/2022 11:15 AM 09/29/2022 12:00 PM Confirmed Pharmacy Information: You may receive a survey from [facility] asking you to rate your care experience. Your feedback is important and will help us understand what we do well and how we can improve the quality of care we provide to you, your loved ones and our community. It?s an honor to serve you. Thank you for choosing [facility] HERE ARE THE MEDICATION CHANGES THAT OCCURRED DURING YOUR HOSPITAL STAY Medications to Continue Taking That Have Changed Other Medications START: albuterol (Pro-Air HFA CFC free 90 mcg/inh MDI) 1 or 2 puffs Inhalation 4 times a day as needed Shortness of breath or wheezing. START: fluticasone nasal one spray Nasal Inhalation every day. in each nostril. START: lacosamide 100 Milligram By Mouth 3 times a day. START: lorazepam 1 Milligram By Mouth. prn for seizure lasting >3 minutes. START: sumatriptan 100 Milligram By Mouth Once as needed Migraine headache. may repeat dose in 2 hours if needed. Medications to Continue with No Changes Other Medications benzocaine-menthol topical (Cepacol Sore Throat 15 mg-3.6 mg mucous membrane lozenge) 1 Lozenges By Mouth every 2 hours as needed Sore throat. cetirizine (Zyrtec) 10 Milligram By Mouth every day. 1 or 2 tabs. clonazepam (Klonopin 2 mg oral tablet) 1 Tablets By Mouth 3 times a day. galcanezumab (Emgality Prefilled Pen 120 mg/mL subcutaneous solution) 120 Milligram Subcutaneous once a month., prevent migraines nadolol 80 Milligram By Mouth every day. promethazine 25 Milligram By Mouth 3 times a day as needed as needed for nausea/vomiting. quetiapine 400 Milligram By Mouth at bedtime., Bipolar quetiapine 50 Milligram By Mouth 3 times a day as needed Anxiety. rizatriptan 10 Milligram By Mouth every day as needed Migraine headache. may repeat dose once in 2 hours. sertraline (sertraline 100 mg Tab) 3 Tablets By Mouth at bedtime. PATIENT EDUCATION INFORMATION Instructions: [place], [place] [facility] DISCHARGE INSTRUCTIONS: KNEE ARTHROSCOPY Diet Begin with a liquid diet and advance to your normal diet as tolerated. Activity You may gradually increase your activity as tolerated. Until your first post-operative visit elevate your knee higher than your heart, whenever you are sitting or lying down. Knee swelling will gradually decrease after surgery. Increased swelling is usually a sign of over-activity and should be a signal for you to be less active and apply ice as needed. Your exercise program is the guerrero to successful rehabilitation of your knee. Do the exercises daily as instructed. You will receive further exercises at y (more content not included)... Normal [facility] Discharge Instructionson Discharge Instructions [id number]:127 Normal [facility] ED Clinical Summaryon 2022 ED Clinical Summary [address] [address] ED Clinical Summary Person Information Name: BISHNU COLES [facility] Age: 41 Years : 1980 Sex: Male Language: Guamanian PCP: Erlinda Nunez MD Marital Status: Single Phone: [phone] Visit Id: Visit Reason: Knee pain-swelling; LT KNEE PAIN W/ SWELLING Speciality: Acuity: 5 Enc Type: Emergency Med Service: Emergency Arrival: 09/21/2022 20:52:09 Discharge: 09/21/2022 23:06:36 LOS: 000 02:14 Checkin: 09/21/2022 20:52:09 Checkout: 09/21/2022 23:06:36 Dispo Type: Home (Routine DC) EVENTS: Event Name Event Status Request Date/Time Start Date/Time Complete Date/Time Arrive Complete 09/21/2022 20:52:09 09/21/2022 20:52:09 09/21/2022 20:52:09 Document Home Meds Request 09/21/2022 20:52:09 Triage Complete 09/21/2022 20:52:09 09/21/2022 21:05:33 09/21/2022 21:05:33 Registration Complete 09/21/2022 20:56:38 09/21/2022 20:56:38 09/21/2022 20:56:38 Reg Complete Request 09/21/2022 20:56:38 Bed Assign Complete 09/21/2022 21:05:51 09/21/2022 21:05:51 09/21/2022 21:05:51 Dr Exam Complete 09/21/2022 21:05:51 09/21/2022 21:06:47 09/21/2022 21:06:47 RN Exam Complete 09/21/2022 21:05:51 09/21/2022 21:45:47 09/21/2022 21:45:47 Registration Complete 09/21/2022 21:06:47 09/21/2022 21:16:45 09/21/2022 21:16:45 Dr Exam Complete 09/21/2022 21:10:31 09/21/2022 21:10:31 09/21/2022 21:10:31 Patient Care Complete 09/21/2022 22:56:17 09/21/2022 23:05:08 Meds Admin Complete 09/21/2022 22:56:17 09/21/2022 23:04:18 Discharge Complete 09/21/2022 22:57:55 09/21/2022 23:08:46 09/21/2022 23:08:46 Transfer Complete 09/21/2022 23:08:46 09/21/2022 23:08:46 09/21/2022 23:08:46 ADDRESS: [address] [place] [phone] PHYS DOC NOTES: MEDICAL INFORMATION: Prescriptions Given: Medications to Continue with No Changes Other Medications albuterol (Pro-Air HFA CFC free 90 mcg/inh MDI) 1 or 2 puffs Inhalation 4 times a day as needed Shortness of breath or wheezing. benzocaine-menthol topical (Cepacol Sore Throat 15 mg-3.6 mg mucous membrane lozenge) 1 Lozenges By Mouth every 2 hours as needed Sore throat. cetirizine (Zyrtec) 10 Milligram By Mouth every day. 1 or 2 tabs. clonazepam (Klonopin 2 mg oral tablet) 1 Tablets By Mouth 3 times a day. fluticasone nasal one spray Nasal Inhalation every day. in each nostril. galcanezumab (Emgality Prefilled Pen 120 mg/mL subcutaneous solution) 120 Milligram Subcutaneous once a month. lacosamide 100 Milligram By Mouth 3 times a day. lorazepam 1 Milligram By Mouth. prn for seizure lasting >3 minutes. nadolol 80 Milligram By Mouth every day. promethazine 25 Milligram By Mouth 3 times a day as needed as needed for nausea/vomiting. quetiapine 400 Milligram By Mouth at bedtime. quetiapine 50 Milligram By Mouth 3 times a day as needed Anxiety. rizatriptan 10 Milligram By Mouth every day as needed Migraine headache. may repeat dose once in 2 hours. sertraline (sertraline 100 mg Tab) 3 Tablets By Mouth at bedtime. sumatriptan 100 Milligram By Mouth Once as needed Migraine headache. may repeat dose in 2 hours if needed. PATIENT EDUCATION INFORMATION: Instructions: Meniscus Tear Follow up: With: Address: When: Scott Nassar [address] [place] [address] [employer] (1) In 3 days 09/24/2022 With: Address: When: Erlinda Nunez [facility] [place] [address] [employer] (1) In 3 days 09/24/2022 Comments: Call the office of your primary care doctor to arrange for follow-up within the above-stated timeframe. Follow-up with your primary care doctor about this ED visit. You should review your labs, imaging, and diagnoses from this ED visit with your primary care physician. If you were prescribed medications you should discuss possible side-effects and drug interactions with your pharmacist. Call 911 or go to the nearest Emergency Department if you develop any new or worsening symptoms. DIAGNOSIS: Left knee pain Normal [facility] ED Note-Physicianon 09-23-19 ED Note-Physician Basic Information Time Seen: Yandel Hanna PA-C 09/21/2022 21:06 Chief Complaint pt to ED with c/o L knee pain. pt is scheduled for knee surgery on 09/[address] Nassar. pt states worsening pain today with excess ambulation. slight swelling noted. no fall or injury per pt. History of Present Illness Patient is a 41-year-old male with a history of a meniscal injury of his left knee who presents ED with complaint of left knee pain. Patient is currently being seen by Dr. Nassar. Patient has a appointment in 1 week for arthroscopic surgery with Dr. Nassar for her meniscal injury repair. Patient is presenting for left knee pain. Patient reports that he was ambulating today doing housework when he began to have pain and swelling of his left knee joint. Patient denies any new injuries. Patient does report that he felt like he had a popping sensation earlier in the day and that his pain was worse after this. Patient reports he has not taken anything for his pain, that he been told by Dr. Nassar not taking ibuprofen within 10 days of surgery. Patient denies any pain or injury to any other part of his body. Review of Systems Full 10 system ROS performed. Pt denies symptoms except as noted above in the HPI. Physical Exam Vitals & Measurements T: 36.7 ?C(Oral) HR: 86(Peripheral) RR: 16 BP: 135/86 SpO2: 99% HT: 177 cm WT: 99.7 kg BMI: 31.82 General: Pt is in NAD, nontoxic appearing Skin: Pt skin is warm and dry, no rashes or lesions appreciated HEENT: Atraumatic, normocephalic. Pulmonary: Breathing normally, no respiratory distress Cardiovascular: Peripheral perfusion intact Musculoskeletal: Pt has full ROM. Patient with minimal swelling of the knee joint, pain on palpation of posterior aspect of joint. Negative Ligia, negative anterior posterior drawer test. Neurological: Pt is alert and oriented. Psychiatric: Pt is cooperative, communicative, appropriately reactive Medical Decision Making Number and Complexity of Problems Differential Diagnosis: [] MDM Data External documents reviewed: Not applicable My EKG interpretation: Not applicable My CT interpretation: Not applicable My X-ray interpretation: Not applicable My Ultrasound interpretation: Not applicable Decision rules/scores evaluated: Not applicable Discussed with: Not applicable Treatment and Disposition ED Course: Patient presents ED for evaluation of left knee pain in the context of known chronic left knee pain with meniscal injury. Patient without any findings, history suggestive that he needs an x-ray performed. Patient given a dose of Toradol, Alejo wrap, instructions to follow-up with Dr. Nassar office for further instructions. Patient was in agreement with this plan. Patient questions answered. Patient discharged home. Shared decision making: As above Code status: Not addressed during this visit Assessment/Plan Left knee pain (M25.562: Pain in left knee) Orders: ketorolac, 60 mg = 2 mL, Injection, IntraMuscular, Once, Stop date 09/21/22 22:55:00 EDT, STAT, Start date 09/21/22 22:55:00 EDT, 09/21/22 22:55:00 EDT Alejo Wrap Disposition Plan Patient Discharge Condition Stable Discharge Disposition To home Discharge Prescription List Prescriptions No active prescription medications Follow-up With When Contact Information Scott Nassar In 3 days 09/24/2022 EDT [address] [place] [address]- Business (1) Additional Instructions: Erlinda Nunez In 3 days 09/24/2022 EDT [address] [place] [address]- Business (1) Additional Instructions: Call the office of your primary care doctor to arrange for follow-up within the above-stated timeframe. Follow-up with your primary care doctor about this ED visit. You should review your labs, imaging, and diagnoses from this ED visit with your primary care physician. If you were prescribed medications you should discuss possible side-effects and drug interactions with your pharmacist. Call 911 or go to the nearest Emergency Department if you develop any new or worsening symptoms. Patient Education Meniscus Tear Attestation Patient seen and evaluated by the physician assistant loan processor. Attending physician was present in the emergency department and supervised care. This visit was performed by both the physician and an APC. I performed all aspects of the MDM as documented. This report was transcribed using voice recognition software. Every effort was made to ensure accuracy, however, inadvertently computerized box coverer hand mistakes may be present. Appropriate healthcare PPE was used in evaluating this patient. The patient was placed in a mask. The healthcare provider was wearing mask, gloves, and utilizing proper hand hygiene. All equipment was properly cleansed Problem List/Past Medical History Ongoing adhd anxiety apnea Bipolar 2 disorder Bipolar disorder Epilepsy GERD (gastroesophageal reflux disease) Obesity Partial epilepsy Post (more content not included)... Normal [facility] Comment on above: Result Comment: Elec tronically Signed By: Yandel Hanna PA-C\.br\Date and Time Signed: 09/21/22 23:02 EDT\.br\Electronically Co-Signed By: Virgil Dozier DO\.br\Date and Time Co-Signed: 09/22/22 06:59 EDT ED Patient Education Noteon 09-22-2022 ED Patient Education Note Orthopedics Meniscus Tear A meniscus tear is a knee injury that happens when a piece of the meniscus is torn. The meniscus is a thick, rubbery, wedge-shaped piece of cartilage in the knee. Each knee has two menisci sitting between the upper bone (femur) and lower bone (tibia) that form the knee joint. Each meniscus acts as a shock absorber for the knee. A torn meniscus is a common knee injury, ranging from mild to severe. Surgery may be needed to repair a severe tear. What are the causes? This condition may be caused by kneeling, squatting, twisting, or pivoting movements. Sports-related injuries are the most common cause, often resulting from: ? Running and stopping suddenly. ? Changing direction. ? Being tackled or knocked off your feet. ? Lifting or carrying heavy weights. As people get older, their menisci get thinner and weaker. Tears can happen more easily in older people, for example, when climbing stairs. What increases the risk? You are more likely to develop this condition if you: ? Play contact sports. ? Have a job that requires kneeling or squatting. ? Are male. ? Are over 40 years old. What are the signs or symptoms? Symptoms of this condition include: ? Knee pain, especially at the side of the knee joint. You may feel pain immediately after injury, or hear a pop and feel pain later. ? A feeling that your knee is clicking, catching, locking, or giving way (weakness, instability). ? Not being able to fully bend or extend your knee. ? Bruising or swelling in your knee. How is this diagnosed? This condition may be diagnosed based on your symptoms and a physical exam. You may also have tests, such as: ? X-rays. ? MRI. ? Arthroscopy. This is a procedure to look inside your knee with a narrow surgical telescope. You may be referred to a knee specialist (orthopedic surgeon). How is this treated? Treatment for this injury depends on the severity of the tear. Treatment for a mild tear may include: ? Rest. ? Medicine to reduce pain and swelling, usually a nonsteroidal anti-inflammatory drug (NSAID), like ibuprofen. ? A knee brace, sleeve, or wrap. ? Using crutches or a walker to keep weight off your knee and help with walking. ? Exercises to strengthen your knee (physical therapy). You may need surgery if you have a severe tear or if other treatments fail. Follow these instructions at home: If you have a brace, sleeve, or wrap: ? Wear it, as told by your health care provider. Remove it, only as told by your health care provider. ? Loosen the brace, sleeve, or wrap if your toes tingle, become numb, or turn cold and blue. ? Keep the brace, sleeve, or wrap clean. ? If the brace, sleeve, or wrap is not waterproof: ? Do not let it get wet. ? Cover it with a watertight covering when you take a bath or shower. Managing pain, stiffness, and swelling ? Take [id number] and prescription medicines only as told by your health care provider. ? If directed, put ice on your knee. To do this: ? If you have a removable brace, sleeve, or wrap, remove it as told by your health care provider. ? Put ice in a plastic bag. ? Place a towel between your skin and the bag. ? Leave the ice on for 20 minutes, 2?3 times per day. ? Remove the ice if your skin turns bright red. This is very important. If you cannot feel pain, heat, or cold, you have a greater risk of damage to the area. ? Move your toes often to reduce stiffness and swelling. ? Raise (elevate) the injured area above the level of your heart while you are sitting or lying down. Activity ? Do not use the injured limb to support your body weight until your health care provider says that you can. Use crutches or a walker as told by your health care provider. ? Return to your normal activities as told by your health care provider. Ask your health care provider what activities are safe for you. ? Perform sgjtl-og-xejkmy exercises only as told by your health care provider. ? Begin doing exercises to strengthen your knee and leg muscles only as told by your health care provider. After you recover, your health care provider may recommend these exercises to help prevent another injury. General instructions ? Use a knee brace, sleeve, or wrap as told by your health care provider. ? Ask your health care provider when it is safe to drive if you have a brace, sleeve, or wrap on your knee. ? Do not use any products that contain nicotine or tobacco, such as cigarettes, e-cigarettes, and chewing tobacco. If you need help quitting, ask your health care provider. ? Ask your health care provider if the medicine prescribed to you: ? Requires you to avoid driving or using heavy machinery. ? Can cause constipation. You may need to take these actions to prevent or treat constipation: ? Drink enough fluid to keep your urine pale yellow. ? Take jzfl-asi-fcyhtto or prescription med (more content not included)... Normal [facility] ED Patient Summaryon 023 ED Patient Summary [place] [id number] Patient Discharge Instructions Person Information Name: BISHNU COLES Age: 41 Years Arrival Date: 09/21/2022 20:52:09 Discharge Diagnosis: Left knee pain Primary Care Physician: Erlinda Nunez MD Provider Information Primary Provider: Virgil Dozier DO [employer] Project Manager:Yandel Hanna PA-C The exam and treatment you received in the Emergency Department were for an urgent problem and are not intended as complete care. It is important that you follow up with a doctor, nurse practitioner, or physician?s assistant loan processor for ongoing care. If your symptoms become worse or you do not improve as expected and you are unable to reach your usual health care provider, you should return to the Emergency Department. We are available 24 hours a day. BISHNU COLES has been given the following list of patient education materials, prescriptions and follow-up instructions: Follow-up Instructions: With: Address: When: Scott Nassar [address] [place], [place] [id number] Business (1) In 3 days 09/24/2022 With: Address: When: Erlinda Basssharon [address] [place] [address] [place] [id number] Business (1) In 3 days 09/24/2022 Comments: Call the office of your primary care doctor to arrange for follow-up within the above-stated timeframe. Follow-up with your primary care doctor about this ED visit. You should review your labs, imaging, and diagnoses from this ED visit with your primary care physician. If you were prescribed medications you should discuss possible side-effects and drug interactions with your pharmacist. Call 911 or go to the nearest Emergency Department if you develop any new or worsening symptoms. In the event that this physician does not participate in your insurance network, please consult with your insurance company to find a nearby participating provider. Patient Education Materials: Meniscus Tear A MESSAGE TO ALL PATIENTS REGARDING OPIOIDS PRESCRIPTION OPIOIDS: WHAT YOU NEED TO KNOW Prescription opioids can be used to help relieve viefwqhh-lx-argnyq pain and are often prescribed following a surgery or injury, or for certain health conditions. These medications can be an important part of the treatment but also come with serious risks. It is important to work with your healthcare provider to make sure you are getting the safest, most effective care. WHAT ARE THE RISKS AND SIDE EFFECTS OF OPIOID USE? Prescription opioids carry serious risks of addiction and overdose, especially with prolonged use. An opioid overdose, often marked by slowed breathing, can cause sudden . The use of prescription opioids can have a number of side effects as well, even when taken as directed: ? Tolerance?meaning you might need to take more of the medication for the same pain relief ? Physical dependence?meaning you have symptoms of withdrawal when a medication is stopped ? Increased sensitivity to pain ? Constipation ? Nausea, vomiting, and dry mouth ? Sleepiness and dizziness ? Confusion ? Depression ? Low levels of testosterone that can result in lower sex drive, energy, and strength ? Itching and sweating RISKS ARE GREATER WITH: ? History of drug misuse, substance use disorder, or overdose ? Mental health conditions (such as depression or anxiety) ? Sleep apnea ? Older age (65 years and older) ? Avoid alcohol while taking prescription opioids. Also, unless specifically advised by your health care provider, medications to avoid include: ? Benzodiazepines (such as Xanax or Valium) ? Muscle relaxants (such as Soma or Flexeril) ? Hypnotics (such as Ambien or Lunesta) ? Other prescription opioids KNOW YOUR OPTIONS Talk to your health care provider about ways to manage your pain that don?t involve prescription opioids. Some of these options may actually work better and have fewer risks and side effects. Options may include: ? Pain relievers such as acetaminophen, ibuprofen, and naproxen ? Some medication that are also used for depression or seizures ? Physical therapy and exercise ? Cognitive behavioral therapy, a psychological, goal-directed approach, in which patients learn how to modify physical, behavioral, and emotional triggers of pain and stress. IF YOU ARE PRESCRIBED OPIOIDS FOR PAIN: ? Never take opioids in greater amounts or more often than prescribed. ? Follow up with your primary health care provider. o Work together to create a plan on how to manage your pain. o Talk about ways to help manage your pain that don?t involve prescription opioids. o Talk about any and all concerns and side effects. ? Help prevent misuse and abuse o Never sell or share prescription opioids. o Never use another person?s prescription opioids. ? Store prescription opioids in a secure place (more content not included)... Normal [facility] Consent for Treatmenton Consent for Treatment [id number] [id number] 0CD:127 Normal [facility] BUNon 09-19-2022 Urea nitrogen [Mass/Vol] 15 mg/dL Normal 5-21 [facility] Comment on above: Performed By: #### 2 380466, 2298655, 8574420, 2124421, [id number] ####[facility] [address] [place] [address] CBC w/Indiceson 09-19-2022 Erythrocyte distribution width (RBC) [Ratio] 13.4 % Normal 10.9-14.2 [facility] Comment on above: Performed By: #### 2 459600, 7937721, 8529417, 9798682, [id number] ####[place] [address] [place] [address] Hematocrit (Bld) [Volume fraction] 48.6 % Normal 37.7-49.0 [facility] Comment on above: Performed By: #### 2 081718, 2628556, 5578404, 3607170, 88638807 ####[address] [address] Hemoglobin (Bld) [Mass/Vol] 15.8 g/dL Normal 13.5-17.5 [facility] Comment on above: Performed By: #### 2 216896, 2945056, 0199690, 5847124, [id number] ####[address] [address] MCH (RBC) [Entitic mass] 28.0 pg Normal 27.0-34.0 [facility] Comment on above: Performed By: #### 2 128432, 6230651, 7400532, 4023097, 85106932 ####[address] [address] MCHC (RBC) [Mass/Vol] 32.5 g/dL Normal 31.4-36.0 [facility] Comment on above: Performed By: #### 2 177223, 3531533, 9187415, 8984806, 59788485 ####[place] [address] [place] [address] MCV (RBC) [Entitic vol] 86.1 fL Normal 80.0-100.0 [facility] Comment on above: Performed By: #### 2 234769, 6251288, 5423933, 7934589, 22665083 ####[place] [address] [place] [address] Platelet mean volume (Bld) [Entitic vol] 7.4 fL Normal 6.4-10.8 [facility] Comment on above: Performed By: #### 2 065263, 6935897, 1177524, 3064431, 14690371 ####[facility] [address] [place] [address] Platelets (Bld) [#/Vol] 296.0 E9/L Normal 150.0-500.0 [facility] Comment on above: Performed By: #### 2 095259, 9793293, 5622273, 4705154, 20678657 ####[facility] [address] [place] [address] RBC (Bld) [#/Vol] 5.6 E12/L Normal 4.3-5.9 [facility] Comment on above: Performed By: #### 2 924103, 4247683, 4689691, 7226985, 97047059 ####[facility] [address] [place] [address] WBC corrected for nucl RBC Auto (Bld) [#/Vol] 7.0 E9/L Normal 4.0-11.0 [facility] Comment on above: Performed By: #### 2 410327, 5346087, 3743918, 8335467, 01477270 ####[facility] [address] [place] [address] CHEMISTRYOrdered By: SYSTEM SYSTEM on 09-19-2022 Anion gap [Moles/Vol] 11 mmol/L Normal 6 - 16 mEq/L [facility] Remisol Chloride [Moles/Vol] 103 mmol/L Normal 101 - 1 11 mmol/L [facility] Remisol CO2 [Moles/Vol] 27 mmol/L Normal 21 - 31 mmol/L [facility] Remisol Creatinine [Mass/Vol] 0.8 mg/dL Normal 0.5 - 1.3 mg/dL [facility] Remisol GFR/1.73 sq M.predicted among non-blacks MDRD (S/P/Bld) [Vol rate/Area] 115 mL/min/1.73 m2 Normal >=59mL/min/1 .73 m2 [facility] Chem S Potassium [Moles/Vol] 4.3 mmol/L Normal 3.5 - 5.3 mmol/L [facility] Remisol Sodium [Moles/Vol] 137 mmol/L Normal 135 - 145 mmol/L [facility] Urea nitrogen [Mass/Vol] 15 mg/dL Normal 5 - 21 mg/dL [facility] Consent for Treatmenton Consent for Treatment [id number] 3050 [id number] 0CD:127 Normal [facility] Creatinineon 09-19-2022 Creatinine [Mass/Vol] 0.8 mg/dL Normal 0.5-1.3 [facility] Comment on above: Performed By: #### 2 558132, 2289683, 1289860, 9826256, 74685714 ####[facility] [address] [place] [address] HEMATOLOGYOrdered By: Daysi Gaxiola on 09-19-2022 Erythrocyte distribution width (RBC) [Ratio] 13.4 % Normal 10.9 - 14.2 % [facility] HemeAutoSS Hematocrit (Bld) [Volume fraction] 48.6 % Normal 37.7 - 49.0 % [facility] HemeAutoSS Hemoglobin (Bld) [Mass/Vol] 15.8 g/dL Normal 13.5 - 17.5 gm/dL [facility] HemeAutoSS MCH (RBC) [Entitic mass] 28.0 pg Normal 27.0 - 34.0 pg [facility] HemeAutoSS MCHC (RBC) [Mass/Vol] 32.5 g/dL Normal 31.4 - 36.0 gm/dL [facility] HemeAutoSS MCV (RBC) [Entitic vol] 86.1 fL Normal 80.0 - 100.0 fL [facility] HemeAutoSS Platelet mean volume (Bld) [Entitic vol] 7.4 fL Normal 6.4 - 10.8 fL [facility] HemeAutoSS Platelets (Bld) [#/Vol] 296.0 E9/L Normal 150.0 - 500.0 E9/L [facility] HemeAutoSS RBC (Bld) [#/Vol] 5.6 E12/L Normal 4.3 - 5.9 E12/L [facility] HemeAutoSS WBC corrected for nucl RBC Auto (Bld) [#/Vol] 7.0 E9/L Normal 4.0 - 11.0 E9/L [facility] HemeAutoSS Lyteson 09-19-2022 Anion gap [Moles/Vol] 11 mmol/L Normal 6-16 [facility] Comment on above: Performed By: #### 2 607007, 2131986, 1096844, 7451812, 53496087 ####[facility] [address] [place] [address] Chloride [Moles/Vol] 103 mmol/L Normal 101-111 [facility] Comment on above: Performed By: #### 2 348360, 7962116, 1662882, 9198028, 92237427 ####[facility] [address] [place] [address] CO2 [Moles/Vol] 27 mmol/L Normal 21-31 [facility] Comment on above: Performed By: #### 2 318014, 5170131, 1789258, 1982244, 83957704 ####[facility] [address] [place] [address] Potassium [Moles/Vol] 4.3 mmol/L Normal 3.5-5.3 [facility] Comment on above: Performed By: #### 2 966335, 6265278, 6031144, 8436396, 96525093 ####[facility] [address] [place] [address] Sodium [Moles/Vol] 137 mmol/L Normal 135-145 [facility] Comment on above: Performed By: #### 2 610699, 1801999, 8909711, 5948683, 24850838 ####[facility] [address] [place] [address] eGFRon 09-19-2022 GFR/1.73 sq M.predicted among non-blacks MDRD (S/P/Bld) [Vol rate/Area] 115 mL/min/1.73 m2 Normal >=59 [facility] Comment on above: Order Comment: Order added by Discern Expert. Result Comment: Electrophysiology Technician [place] kidney disease could be indicated at eGFR's of less than 60 mL/min/1.73m2. Kidney failure is indicated at less than 15 mL/min/1.73m2. Performed By: #### 2 491847, 5193628, 2930031, 2179372, 10972390 ####[facility] [address] [place] [address] Leela 09-17-2022 CNPN Telephone (NE50MN) BISHNU COLES ([id number]) 1980 M Date Time Provider Department 09/17/22 LINO MENDIOLA NE50MN During your visit today, we recorded the following information about you: Stephany BALDERAS 09/17/2022 9:36 AM Signed Letter Request: Reason letter is requested. Letter if its ok for patient to have knee scope surgery? Person calling: [facility] ext [phone] To be addressed to: to whom it may concern Address/Email: Phone/ Patient of Dr. maury Velasquez RN 09/17/2022 11:34 AM Signed Spoke to bishnu and he is doing well. No seizures. He is having the arthroscopy 09/29/2022. We discussed that he should not miss any doses of his medication for procedure. He verbalizes understanding. Letter request forwarded for review. NICHOLAS Thumran PA-C 09/17/2022 12:00 PM Signed Yes I can sign off on letter, thanks, BARTOLOME Griffin RN 09/17/2022 12:41 PM Signed Letter drafted. Forwarded for review and signature via [employer]. Copy to fax number below. NICHOLAS Thurman RN 09/17/2022 12:41 PM Signed Letter signed. NICHOLAS Thurman 09/23/2022 12:00 PM Signed Per Chiquita, please refax clearance letter to Dr. Nassar at [phone]. Reynaldo Braswell RN 09/23/2022 1:45 PM Signed Form refaxed, confirmation received. Reynaldo Braswell RN Allergies As of Date: 09/17/2022 Noted Allergy Reaction KEPPRA (LEVETIRACETAM) 07/31/2010 14 - Other: See Comments Comments: Increases his ADHD KETOROLAC TROMETHAMINE 09/14/2016 16 - Unknown Comments: unknown PRISTIQ (DESVENLAFAXINE) 01/12/2014 14 - Other: See Comments Comments: sz Date Reviewed: 04/28/2022 Reviewed by: Era Nassar LPN - Fully Assessed Reason for Visit: Letter [264] Cmt: Surgery clearance Prescriptions as of 09/23/2022 - rizatriptan (MAXALT-INTERACTIVE ART DIRECTOR) 10 mg disintegrating tablet Take 1 tablet by mouth as needed (at onset of headache. May repeat after 2 hours.). Do not exceed 30 mg per day. - galcanezumab-gnlm (EMGALITY PEN) 120 mg/mL pen Inject 1 mL subcutaneously once every month. Do not shake. - nadolol (CORGARD) 80 mg tablet Take 1 tablet by mouth once daily. - promethazine (PHENERGAN) 25 mg tablet 1 po tid prn headache or nausea - QUEtiapine (SEROQUEL) 400 mg tablet Take 1 tablet by mouth daily at bedtime. - QUEtiapine (SEROQUEL) 50 mg tablet Take 1 tablet by mouth three times daily as needed (Anxiety). - clonazePAM (KLONOPIN) 2 mg tablet Take 1 tablet by mouth three times daily for 180 days. - lacosamide (VIMPAT) 100 mg tab Take 1 tablet by mouth twice daily for 180 days. - benzocaine-menthol (CEPACOL) 15-3.6 mg lozg Use 1 Lozenge as instructed every 2 hours as needed. - sertraline (ZOLOFT) 100 mg tablet Take 3 tablets by mouth once daily. - QUEtiapine (SEROQUEL) 100 mg tablet Take 1 tablet by mouth daily at bedtime. Take in addition to 300 mg tab for total of 400 mg at bedtime - LORazepam (ATIVAN) 1 mg tablet Take 1 tablet by mouth as needed (for seizure lasting >3 minutes. Max 2 doses in 24 hours.) for up to 180 days. - CPAP Change the pressure of autoBipap with EPAP 5-15 mh2o and PS 4-8cmh2O. His DME company is [employer] , new mask to fit patient preference, ramp, humidification and unlimited supplies Please send us machine download in 1 month - CPAP Please send us machine download in 1 month - LORazepam (ATIVAN) 1 mg tablet Take 1 tablet by mouth as needed (for seizure lasting >3 minutes. Max 2 doses in 24 hours.) for up to 180 days. - Cetirizine 10 mg cap Take 1-2 tablets by mouth as needed. - fluticasone (FLONASE) 50 mcg/actuation nasal spray Use 1 [place] in each nostril twice daily. - albuterol HFA (PROVENTIL HFA, VENTOLIN HFA) 90 mcg/actuation inhaler Inhale 1-2 Puffs as instructed as needed for Wheezing/Shortness of Breath. Problem List As Of Date 09/17/2022 Noted Resolved Epilepsy (HCC) [G40.909] 06/18/2004 Epilepsy with altered consciousness without int*07/31/2010 Depression with anxiety [F41.8] 01/12/2014 Respiratory failure requiring intubation (HCC) *04/07/2016 Acute respiratory failure (HCC) [J96.00] 04/07/2016 03/26/2019 Hx of suicide attempt [Z91.51] 04/07/2016 Bipolar II disorder (HCC) [F31.81] 07/02/2016 Obesity, Class I, BMI 30-34.9 [E66.9] 11/24/2017 Partial epilepsy with impairment of consciousne*01/12/2018 Gastroesophageal reflux disease without esophag*02/03/2018 S/P placement of VNS (vagus nerve stimulation) *12/20/2018 Psychophysiologic insomnia [F51.04] 06/20/2020 HIMA (obstructive sleep apnea) [G47.33] 06/20/2020 Generalized epilepsy (HCC) [G40.309] 09/20/2020 Acute postoperative pain [G89.18] 09/21/2020 Complex partial seizures evolving to generalize*02/12/2021 Recurrent major depression in partial remission*09/02/2021 Letter Text Encoun (more content not included)... Normal [facility] CNOVon 09-02-2022 CNOV Office Visit (MONIE ) BISHNU COLES ([id number]) 1980 M Date Time Provider Department 09/02/22 1:00 PM NADIRA PURDY During your visit today, we recorded the following information about you: Nadira Purdy APRN.GUT SNATCHER 09/02/2022 12:56 PM Signed Patient returns after completion of his MRI testing. VNS settings reset to pre-MRI values with Output current at 1.625 and Magnet current at 1.875. Tolerated procedure well. 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 May repeat after 2 hours.). Do not exceed 30 mg per day. - galcanezumab-gnlm (EMGALITY PEN) 120 mg/mL pen Inject 1 mL subcutaneously once every month. Do not shake. - nadolol (CORGARD) 80 mg tablet Take 1 tablet by mouth once daily. - promethazine (PHENERGAN) 25 mg tablet 1 po tid prn headache or nausea - QUEtiapine (SEROQUEL) 400 mg tablet Take 1 tablet by mouth daily at bedtime. - QUEtiapine (SEROQUEL) 50 mg tablet Take 1 tablet by mouth three times daily as needed (Anxiety). - clonazePAM (KLONOPIN) 2 mg tablet Take 1 tablet by mouth three times daily for 180 days. - lacosamide (VIMPAT) 100 mg tab Take 1 tablet by mouth twice daily for 180 days. - benzocaine-menthol (CEPACOL) 15-3.6 mg lozg Use 1 Lozenge as instructed every 2 hours as needed. - sertraline (ZOLOFT) 100 mg tablet Take 3 tablets by mouth once daily. - QUEtiapine (SEROQUEL) 100 mg tablet Take 1 tablet by mouth daily at bedtime. Take in addition to 300 mg tab for total of 400 mg at bedtime - LORazepam (ATIVAN) 1 mg tablet Take 1 tablet by mouth as needed (for seizure lasting >3 minutes. Max 2 doses in 24 hours.) for up to 180 days. - CPAP Change the pressure of autoBipap with EPAP 5-15 mh2o and PS 4-8cmh2O. His DME company is [employer] mask to fit patient preference, ramp, humidification and unlimited supplies Please send us machine download in 1 month - CPAP Please send us machine download in 1 month - LORazepam (ATIVAN) 1 mg tablet Take 1 tablet by mouth as needed (for seizure lasting >3 minutes. Max 2 doses in 24 hours.) for up to 180 days. - Cetirizine 10 mg cap Take 1-2 tablets by mouth as needed. - fluticasone (FLONASE) 50 mcg/actuation nasal spray Use 1 [place] in each nostril twice daily. - albuterol HFA (PROVENTIL HFA, VENTOLIN HFA) 90 mcg/actuation inhaler Inhale 1-2 Puffs as instructed as needed for Wheezing/Shortness of Breath. Problem List As Of Date 09/02/2022 Noted Resolved Epilepsy (HCC) [G40.909] 06/18/2004 Epilepsy with altered consciousness without int*07/31/2010 Depression with anxiety [F41.8] 01/12/2014 Respiratory failure requiring intubation (HCC) *04/07/2016 Acute respiratory failure (HCC) [J96.00] 04/07/2016 03/26/2019 Hx of suicide attempt [Z91.51] 04/07/2016 Bipolar II disorder (HCC) [F31.81] 07/02/2016 Obesity, Class I, BMI 30-34.9 [E66.9] 11/24/2017 Partial epilepsy with impairment of consciousne*01/12/2018 Gastroesophageal reflux disease without esophag*02/03/2018 S/P placement of VNS (vagus nerve stimulation) *12/20/2018 Psychophysiologic insomnia [F51.04] 06/20/2020 HIMA (obstructive sleep apnea) [G47.33] 06/20/2020 Generalized epilepsy (HCC) [G40.309] 09/20/2020 Acute postoperative pain [G89.18] 09/21/2020 Complex partial seizures evolving to generalize*02/12/2021 Recurrent major depression in partial remission*09/02/2021 Encounter Status:Closed by NADIRA PURDY on 09/02/22 Normal [facility] CNOV Office Visit (GORANS ) BISHNU COLES ([id number]) 1980 M Date Time Provider Department 09/02/22 11:00 AM NADIRA PURDY During your visit today, we recorded the following information about you: Nadira Purdy APRN.GUT SNATCHER 09/02/2022 11:02 AM Signed CC: VNS interrogation prior to MRI HPI: This is a 41 year old male who presents tot the outpatient clinic alone. He is scheduled for an MRI of the brain today. Here for VNS shut off Current Outpatient Medications Medication Sig rizatriptan (MAXALT-INTERACTIVE ART DIRECTOR) 10 mg disintegrating tablet Take 1 tablet by mouth as needed (at onset of headache. May repeat after 2 hours.). Do not exceed 30 mg per day. galcanezumab-gnlm (EMGALITY PEN) 120 mg/mL pen Inject 1 mL subcutaneously once every month. Do not shake. nadolol (CORGARD) 80 mg tablet Take 1 tablet by mouth once daily. promethazine (PHENERGAN) 25 mg tablet 1 po tid prn headache or nausea QUEtiapine (SEROQUEL) 400 mg tablet Take 1 tablet by mouth daily at bedtime. QUEtiapine (SEROQUEL) 50 mg tablet Take 1 tablet by mouth three times daily as needed (Anxiety). clonazePAM (KLONOPIN) 2 mg tablet Take 1 tablet by mouth three times daily for 180 days. lacosamide (VIMPAT) 100 mg tab Take 1 tablet by mouth twice daily for 180 days. benzocaine-menthol (CEPACOL) 15-3.6 mg lozg Use 1 Lozenge as instructed every 2 hours as needed. sertraline (ZOLOFT) 100 mg tablet Take 3 tablets by mouth once daily. QUEtiapine (SEROQUEL) 100 mg tablet Take 1 tablet by mouth daily at bedtime. Take in addition to 300 mg tab for total of 400 mg at bedtime LORazepam (ATIVAN) 1 mg tablet Take 1 tablet by mouth as needed (for seizure lasting >3 minutes. Max 2 doses in 24 hours.) for up to 180 days. CPAP Change the pressure of autoBipap with EPAP 5-15 mh2o and PS 4-8cmh2O. His DME company is [employer] , [employer] mask to fit patient preference, ramp, humidification and unlimited supplies Please send us machine download in 1 month CPAP Please send us machine download in 1 month LORazepam (ATIVAN) 1 mg tablet Take 1 tablet by mouth as needed (for seizure lasting >3 minutes. Max 2 doses in 24 hours.) for up to 180 days. Cetirizine 10 mg cap Take 1-2 tablets by mouth as needed. fluticasone (FLONASE) 50 mcg/actuation nasal spray Use 1 [place] in each nostril twice daily. albuterol HFA (PROVENTIL HFA, VENTOLIN HFA) 90 mcg/actuation inhaler Inhale 1-2 Puffs as instructed as needed for Wheezing/Shortness of Breath. No current facility-administered medications for this visit. ALLERGIES Allergen Reactions Keppra [Levetiracet* Other: See Comments Increases his ADHD Ketorolac Trometham* Unknown unknown Pristiq [Desvenlafa* Other: See Comments sz [facility] VNS Seq. No.: Erlin SR [id number] VNS Serial No.: [id number] Date of Implantation: 2020 Stimulation Parameters: Current (mA): Present: 1.625; Changes 0.000 Frequency (Hz): Present: 25; Changes - Pulse width (ms): Present: 500; Changes: - Signal on-time (s): Present: 30; Changes: - Signal off-time (min.): Present: 0.8; Changes: - AutoStim Current (mA): Present: -; Changes: - AutoStim pulse width (ms): Present: -; Changes: - AutoStim signal on-time (s): Present: -; Changes: - Magnet Current (mA): Present: 1.875; Changes: 0.000 Magnet pulse width (ms): Present: 500; Changes: - Magnet signal on-time (s): Present: 60; Changes: - Duty Cycle: 44% Comments: VNS is off for MRI Patient to return for reprogramming after MRI completed. 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 May repeat after 2 hours.). Do not exceed 30 mg per day. - galcanezumab-gnlm (EMGALITY PEN) 120 mg/mL pen Inject 1 mL subcutaneously once every month. Do not shake. - nadolol (CORGARD) 80 mg tablet Take 1 tablet by mouth once daily. - promethazine (PHENERGAN) 25 mg tablet 1 po tid prn headache or nausea - QUEtiapine (SEROQUEL) 400 mg tablet Take 1 tablet by mouth daily at bedtime. - QUEtiapine (SEROQUEL) 50 mg tablet Take 1 tablet by mouth three times daily as needed (Anxiety). - clonazePAM (KLONOPIN) 2 mg tablet Take 1 tablet by mouth three times daily for 180 days. - lacosamide (VIMPAT) 100 mg tab Take 1 tablet by m (more content not included)... Normal [facility] [place] MRI KNEE WO IVCON LTon 09-02 MRI KNEE WO IVCON LT * * *Final Report* * * DATE OF EXAM: Sep 02 2022 12:19PM QBM 0212 - MRI KNEE WO IVCON LT / PROCEDURE REASON: m23. * * * * Physician Interpretation * * * * EXAMINATION: MRI LEFT KNEE WITHOUT CONTRAST CLINICAL HISTORY: m2 Unspecified internal derangement of left knee TECHNIQUE: Routine non-contrast MRI of the knee MQ: [id number] COMPARISON: None RESULT: MENISCI: Medial Meniscus: Intact. Lateral Meniscus: Intact. LIGAMENTS: ACL: Intact PCL: Intact MCL: Intact LCL Complex: Intact CARTILAGE: Medial Femoral Condyle: Normal Medial Tibial Plateau: Normal Lateral Femoral Condyle: Normal Lateral Tibial Plateau: Normal Patella: Small area(s) of low grade (less than 50% thickness) partial thickness cartilage loss and or fissuring Trochlea: Single low grade (less than 50% thickness) cartilage fissure medially. TENDONS: The distal quadriceps and patellar tendons are intact. The popliteus tendon is intact. BONES AND MARROW: No evidence of fracture or bone marrow replacing process. MUSCLES: Muscle bulk and signal intensity are normal. JOINT FLUID AND SYNOVIUM: No joint effusion. No synovitis. No Rouse's cyst. OTHER: No other significant abnormality identified. Localizer images: IMPRESSION: MILD DEGENERATIVE CHONDRAL CHANGES IN THE PATELLOFEMORAL COMPARTMENT. Dry Kiln Loader: APARNA Transcribe Date/Time: Sep 02 2022 12:58P Dictated by : THIAGO LINK MD This examination was interpreted and the report reviewed and electronically signed by: THIAGO LINK MD on Sep 02 2022 1:01PM EST [id number] [facility] CNPN Telephone (NE50MN) BISHNU COLES ([id number]) 1980 M Date Time Provider Department 07/31/22 LINO MENDIOLA NE50MN During your visit today, we recorded the following information about you: Francheska Nix Sec 07/31/2022 2:55 PM Signed General call : Full name of person calling: Bishnu Coles Relationship to patient: self Phone # : [phone] (home) Reason for call: Patient's orthopaedic specialist, Dr. López, in [place] recommends an MRI of knee. This will require VNS to be turned off. Please advise how to accomplish this at [facility]. Patient of Dr. Maury Velasquez RN 07/31/2022 3:27 PM Signed Called patient, let him know that he can schedule visit with ELIJAH before and after the MRI to turn it off and back on. Scheduling number provided. He will have ortho office fax MRI orders to the clinic. Roula Velasquez RN Allergies As of Date: 07/31/2022 Noted Allergy Reaction KEPPRA (LEVETIRACETAM) 07/31/2010 14 - Other: See Comments Comments: Increases his ADHD KETOROLAC TROMETHAMINE 09/14/2016 16 - Unknown Comments: unknown PRISTIQ (DESVENLAFAXINE) 01/12/2014 14 - Other: See Comments Comments: sz Date Reviewed: 04/28/2022 Reviewed by: Era Nassar LPN - Fully Assessed Reason for Visit: Other [Other] Cmt: Patient needs to have MRI of knee Prescriptions as of 07/31/2022 - QUEtiapine (SEROQUEL) 400 mg tablet Take 1 tablet by mouth daily at bedtime. - QUEtiapine (SEROQUEL) 50 mg tablet Take 1 tablet by mouth three times daily as needed (Anxiety). - clonazePAM (KLONOPIN) 2 mg tablet Take 1 tablet by mouth three times daily for 180 days. - lacosamide (VIMPAT) 100 mg tab Take 1 tablet by mouth twice daily for 180 days. - benzocaine-menthol (CEPACOL) 15-3.6 mg lozg Use 1 Lozenge as instructed every 2 hours as needed. - nadolol (CORGARD) 80 mg tablet Take 1 tablet by mouth once daily. - sertraline (ZOLOFT) 100 mg tablet Take 3 tablets by mouth once daily. - QUEtiapine (SEROQUEL) 100 mg tablet Take 1 tablet by mouth daily at bedtime. Take in addition to 300 mg tab for total of 400 mg at bedtime - promethazine (PHENERGAN) 25 mg tablet 1 po tid prn headache or nausea - LORazepam (ATIVAN) 1 mg tablet Take 1 tablet by mouth as needed (for seizure lasting >3 minutes. Max 2 doses in 24 hours.) for up to 180 days. - cyproheptadine (PERIACTIN) 4 mg tablet Take 4 mg by mouth twice daily. - CPAP Change the pressure of autoBipap with EPAP 5-15 mh2o and PS 4-8cmh2O. His DME company is [employer] , new mask to fit patient preference, ramp, humidification and unlimited supplies Please send us machine download in 1 month - CPAP Please send us machine download in 1 month - LORazepam (ATIVAN) 1 mg tablet Take 1 tablet by mouth as needed (for seizure lasting >3 minutes. Max 2 doses in 24 hours.) for up to 180 days. - SUMAtriptan (IMITREX) 100 mg tablet Take 100 mg by mouth as needed for Migraine Headache (see administration instructions). - Cetirizine 10 mg cap Take 1-2 tablets by mouth as needed. - fluticasone (FLONASE) 50 mcg/actuation nasal spray Use 1 [place] in each nostril twice daily. - albuterol HFA (PROVENTIL HFA, VENTOLIN HFA) 90 mcg/actuation inhaler Inhale 1-2 Puffs as instructed as needed for Wheezing/Shortness of Breath. Problem List As Of Date 07/31/2022 Noted Resolved Epilepsy (HCC) [G40.909] 06/18/2004 Epilepsy with altered consciousness without int*07/31/2010 Depression with anxiety [F41.8] 01/12/2014 Respiratory failure requiring intubation (HCC) *04/07/2016 Acute respiratory failure (HCC) [J96.00] 04/07/2016 03/26/2019 Hx of suicide attempt [Z91.51] 04/07/2016 Bipolar II disorder (HCC) [F31.81] 07/02/2016 Obesity, Class I, BMI 30-34.9 [E66.9] 11/24/2017 Partial epilepsy with impairment of consciousne*01/12/2018 Gastroesophageal reflux disease without esophag*02/03/2018 S/P placement of VNS (vagus nerve stimulation) *12/20/2018 Psychophysiologic insomnia [F51.04] 06/20/2020 HIMA (obstructive sleep apnea) [G47.33] 06/20/2020 Generalized epilepsy (HCC) [G40.309] 09/20/2020 Acute postoperative pain [G89.18] 09/21/2020 Complex partial seizures evolving to generalize*02/12/2021 Recurrent major depression in partial remission*09/02/2021 Encounter Status:Closed by ROULA VELASQUEZ on 07/31/22 Normal [facility] CBC AUTO DIFFon 07-28-2022 BASO # 0.1 103/ul Normal 0.0-0.1 [facility] Comment on above: Performed By: #### C BARRY KHANNA #### [facility] [address] [place] [address] Dr. Meron Gentile Basophils/100 WBC (Bld) 0.5 % Normal 0.2-2.0 [facility] Comment on above: Performed By: #### C BARRY KHANNA #### [facility] [address] [place] [address] Dr. Meron Gentile EO # 0.2 103/ul Normal 0.0-0.7 [facility] Comment on above: Performed By: #### C BARRY KHANNA #### [facility] [address] [place] [address] Dr. Meron Gentile Eosinophils/100 WBC (Bld) 2.0 % Normal 0.9-7.0 [facility] Comment on above: Performed By: #### C CLEMENCIA, BMP #### [facility] [address] [place] [address] Dr. Meron Gentile Erythrocyte distribution width (RBC) [Ratio] 12.5 % Normal 11.0-15.0 [facility] Comment on above: Performed By: #### C CLEMENCIA, BMP #### [facility] [address] [place] [address] Dr. Meron Gentile Hematocrit (Bld) [Volume fraction] 48.6 % Normal 42.0-54.0 [facility] Comment on above: Performed By: #### C CLEMENCIA, BMP #### [facility] [address] [place] [address] Dr. Meron Gentile Hemoglobin (Bld) [Mass/Vol] 16.7 g/dL Normal 14.0-18.0 [facility] Comment on above: Performed By: #### C CLEMENCIA, BMP #### [facility] [address] [place] [address] Dr. Meron Gentile IG # 0.03 10e3/ul Normal 0.00-0.03 [facility] Comment on above: Performed By: #### C CLEMENCIA, BMP #### [facility] [address] [place] [address] Dr. Meron Gentile IG % 0.3 % Normal 0.0-0.5 [facility] Comment on above: Performed By: #### C CLEMENCIA, BMP #### [facility] [address] [place] [address] Dr. Meron Gentile LYMPH # 2.0 103/ul Normal 1.2-3.8 [facility] Comment on above: Performed By: #### C CLEMENCIA, BMP #### [facility] [address] [place] [address] Dr. Meron Gentile Lymphocytes/100 WBC (Bld) 20.4 % Critically low 20.5-60.0 [facility] Comment on above: Performed By: #### C CLEMENCIA, BMP #### [facility] [address] [place] [address] Dr. Meron Gentile MANUAL DIFF REQ NO Normal [facility] Comment on above: Performed By: #### C MADM, BMP #### [facility] [address] [place] [address] Dr. Meron Gentile MCH (RBC) [Entitic mass] 28.8 pg Normal 25.9-34.0 [facility] Comment on above: Performed By: #### C MADM, BMP #### [facility] [address] [place] [address] Dr. Meron Gentile MCHC (RBC) [Mass/Vol] 34.4 g/dL Normal 29.9-35.2 [facility] Comment on above: Performed By: #### C MADM, BMP #### [facility] [address] [place] [address] Dr. Meron Gentile MCV (RBC) [Entitic vol] 83.9 fL Normal 80.0-94.0 [facility] Comment on above: Performed By: #### C MADM, BMP #### [facility] [address] [place] [address] Dr. Meron Gentile MONO # 0.7 103/ul Normal 0.3-0.8 [facility] Comment on above: Performed By: #### C MADM, BMP #### [facility] [address] [place] [address] Dr. Meron Gentile Monocytes/100 WBC (Bld) 7.2 % Normal 1.7-12.0 [facility] Comment on above: Performed By: #### C MADM, BMP #### [facility] [address] [place] [address] Dr. Meron Gentile NEUT # 6.7 103/ul Critically high 1.4-6.5 [facility] Comment on above: Performed By: #### C MADM, BMP #### [facility] [address] [place] [address] Dr. Meron Gentile Neutrophils/100 WBC (Bld) 69.6 % Normal 43.0-75.0 [facility] Comment on above: Performed By: #### C MADM, BMP #### [facility] [address] [address] [address] Meron Gentile Platelet mean volume (Bld) [Entitic vol] 8.7 fL Critically low 9.5-13.5 [facility] Comment on above: Performed By: #### C MADM, BMP #### [facility] [address] [address] [address] Meron Gentile PLT 326 103/ul Normal 150-450 [facility] Comment on above: Performed By: #### C MADM, BMP #### [facility] [address] [address] [address] Meron Gentile RBC 5.79 106/ul Normal 4.70-6.10 [facility] Comment on above: Performed By: #### C MADM, BMP #### [facility] [address] [address] [address] Meron Gentile WBC 9.6 103/ul Normal 4.0-11.0 [facility] Comment on above: Performed By: #### C MADM, BMP #### [facility] [address] [address] [address] Meron Gentile CRPon 07-28-2022 CRP [Mass/Vol] mg/L Normal <=1.0 [facility] Comment on above: Performed By: #### B MP, CRP #### [facility] [address] [address] ABD/PELV W CONon 07-29-19 CT ABD/PELV W CON EXAMINATION: CT ABDOMEN AND PELVIS WITH IV CONTRAST CLINICAL HISTORY: Fall TECHNIQUE: CT of the abdomen and pelvis was performed using standard technique, scanning from just above the dome of the diaphragm to the symphysis pubis. All CT scans at this facility use dose modulation, iterative reconstruction, and/or weight based dosing when appropriate to reduce radiation dose to as low as reasonably achievable. Contrast: IV: 100 ml of Omnipaque 350 COMPARISON: CT abdomen and pelvis 09/27/2020 RESULT: Liver: No mass. Biliary: No bile duct dilation. Gallbladder is unremarkable. Spleen: No mass. No splenomegaly. Pancreas: No mass or duct dilation. Adrenals: No mass. Kidneys: No suspicious mass or enhancement. 3 mm left inferior pole nonobstructing calculus. No hydronephrosis. GI tract: No dilation or wall thickening. Status post appendectomy. Lymph nodes: No abdominal or pelvic lymphadenopathy. Mesentery/Peritoneum: No ascites or mass. Retroperitoneum: No mass. Vasculature: The celiac axis and SMA are patent. The portal vein and branches, splenic vein, SMV, and hepatic veins are patent. No abdominal aortic aneurysm. Pelvis: No mass, ascites or fluid collection. Urinary bladder is unremarkable. Bones/Soft Tissues: Small fat containing bilateral inguinal hernias. No acute osseous abnormality. Lower thorax: Bibasilar atelectasis. IMPRESSION: No acute findings in the abdomen and pelvis. 3 mm left inferior pole nonobstructing renal calculus. No hydronephrosis. Electronically authenticated by: OTF PARKS Date: 2022-07-28 21:32 Normal [facility] CT HEAD WO CONon 07-28-2022 CT HEAD WO CON EXAMINATION: CT HEAD WO CON, CT FACIAL BONES WO CON, CT CSPINE WO CON CLINICAL HISTORY: Pain TECHNIQUE: Serial axial unenhanced images were obtained from the vertex to the foramen magnum. Spiral, high resolution axial unenhanced images were obtained from the skull base to the cervicothoracic junction with sagittal and coronal planar reconstructions. Spiral high resolution axial unenhanced images were also obtained through the facial bones with sagittal and coronal planar reconstructions. All CT scans at this facility use dose modulation, iterative reconstruction, and/or weight based dosing when appropriate to reduce radiation dose to as low as reasonably achievable. COMPARISON: CT brain 01/13/2017 and 05/11/2016. RESULT: BRAIN: Acute change: No evidence of an acute contusion or other acute parenchymal process. Hemorrhage: No evidence of acute intracranial hemorrhage. Mass lesion / Mass effect: There is no evidence of an intracranial mass or extraaxial fluid collection. No significant mass effect. Chronic change: None apparent. Parenchyma: There is no significant volume loss. The brain parenchyma is otherwise within normal limits for age. Ventricles: The ventricles are within normal limits of size and configuration for age. FACIAL BONES: Soft Tissues: No significant superficial soft tissue swelling. Facial bones: No evidence of an acute fracture in the visualized facial bones. Orbits: No evidence of an acute fracture. The globes are intact. The soft tissue planes of the orbits are maintained. Paranasal Sinuses: Small left maxillary sinus mucus retention cyst. Mild paranasal symmetrical thickening otherwise. Mastoid air cells: Clear. Foreign Bodies: No evidence of radio-opaque foreign bodies. Other: Moderate sized left lateral incisor and canine maxillary periapical cysts. CERVICAL: Counting reference: Craniocervical junction. Alignment: Straightening of the cervical lordosis. Atlantoaxial interval is maintained. Vertebral body heights and disc spaces are maintained. Craniocervical junction: Craniocervical junction is normal. Osseous structures/fracture: No evidence of a lytic or blastic process in the visualized spine. No evidence of acute or chronic fracture. Cervical soft tissues: The paraspinal soft tissues planes are maintained. Minimal degenerative changes of the cervical spine without high-grade canal stenosis or neural foraminal narrowing. Upper thoracic spine: Visualized upper thoracic canal and foramina without significant narrowing. IMPRESSION: No evidence of acute intracranial process. No evidence of acute facial bone fracture. No acute fracture or traumatic malalignment in the cervical spine. Electronically authenticated by: OTF PARKS Date: 2022-07-28 21:24 Normal [facility] URINE PROFILEon 3 Bilirubin Ql (U) Negative Normal NEGATIVE [facility] Comment on above: Performed By: #### E RUR #### [facility] [address] [place] [address] Dr. Meron Gentile Clarity (U) CLEAR Normal CLEAR [facility] Comment on above: Performed By: #### E RUR #### [facility] [address] [place] [address] Dr. Meron Gentile Color (U) LT. YELLOW Normal YELLOW [facility] Comment on above: Performed By: #### E RUR #### [facility] [address] [place] [address] Dr. Meron MONTEZ A micrscopic examination will be performed if indicated. Normal [facility] Comment on above: Performed By: #### E RUR #### [facility] [address] [place] [address] Dr. Meron Gentile Glucose Ql (U) Negative Normal NEGATIVE [facility] Comment on above: Performed By: #### E RUR #### [facility] [address] [place] [address] Dr. Meron Gentile Hemoglobin Ql (U) Negative Normal NEGATIVE [facility] Comment on above: Performed By: #### E RUR #### [facility] [address] [place] [address] Dr. Meron Gentile Ketones Ql (U) Negative Normal NEGATIVE [facility] Comment on above: Performed By: #### E RUR #### [facility] [address] [place] [address] Dr. Meron Gentile LEUKOCYTES Negative Normal NEGATIVE [facility] Comment on above: Performed By: #### E RUR #### [facility] [address] [place] [address] Dr. Meron Gentile Nitrite Ql (U) Negative Normal NEGATIVE [facility] Comment on above: Performed By: #### E RUR #### [facility] [address] [place] [address] Dr. Meron Gentile pH (U) 7.0 [pH] Normal 5-9 [facility] Comment on above: Performed By: #### E RUR #### [facility] [address] [place] [address] Dr. Meron Gentile SPEC GRAVITY <=1.005 Abnormal 1.005-<=1.02 5 [facility] Comment on above: Performed By: #### E RUR #### [facility] [address] [place] [address] Dr. Meron Gentile UA PROTEIN Negative Normal NEGATIVE/ TRACE [facility] Comment on above: Performed By: #### E RUR #### [facility] [address] [place] [address] Dr. Meron Gentile UR MICRO IND NOT INDICATED Normal [facility] Comment on above: Performed By: #### E RUR #### [facility] [address] [place] [address] Dr. Meron Gentile Urobilinogen Qn (U) 0.2 {Roel'U}/dL Normal 0.2 - 1. 0 [facility] Comment on above: Performed By: #### E RUR #### [facility] [address] [place] [address] Dr. Meron Gentile PROF CHEM 8 (BAS METB)on Anion gap [Moles/Vol] 11.3 mmol/L Normal [facility] Comment on above: Performed By: #### B MP, CRP #### [facility] [address] [place] [address] Dr. Meron Gentile Calcium [Mass/Vol] 8.9 mg/dL Normal 8.5-10.1 [facility] Comment on above: Performed By: #### B MP, CRP #### [facility] [address] [place] [address] Dr. Meron Gentile Chloride [Moles/Vol] 102 mmol/L Normal 98-107 [facility] Comment on above: Performed By: #### B MP, CRP #### [facility] [address] [place] [address] Dr. Meron Gentile CO2 [Moles/Vol] 27.5 mmol/L Normal 21.0-32.0 [facility] Comment on above: Performed By: #### B MP, CRP #### [facility] [address] [place] [address] Dr. Meron Gentile Creatinine [Mass/Vol] 0.67 mg/dL Critically low 0.70-1.30 [facility] Comment on above: Performed By: #### B MP, CRP #### [facility] [address] [place] [address] Dr. Meron Gentile EGFR-AF ISRAELI >60 Normal >=60 [facility] Comment on above: Performed By: #### B MP, CRP #### [facility] [address] [place] [address] Dr. Meron Gentile EGFR-NON AF ISRAELI >60 Normal >=60 [facility] Comment on above: Performed By: #### B MP, CRP #### [facility] [address] [place] [address] Dr. Meron Gentile Glucose [Mass/Vol] 117 mg/dL Critically high 74-106 [facility] Comment on above: Performed By: #### B MP, CRP #### [facility] [address] [address] [address] Meron Gentile Potassium [Moles/Vol] 3.8 mmol/L Normal 3.5-5.1 [facility] Comment on above: Performed By: #### B MP, CRP #### [facility] [address] [address] [address] Meron Gentile Sodium [Moles/Vol] 137 mmol/L Normal 136-145 [facility] Comment on above: Performed By: #### B MP, CRP #### [facility] [address] [place] [address] Dr. Meron Gentile Urea nitrogen [Mass/Vol] 12.0 mg/dL Normal 7.0-18.0 [facility] Comment on above: Performed By: #### B MP, CRP #### [facility] [address] [place] [address] Dr. Meron Gentile Urea nitrogen/Creatinine [Mass ratio] 17.9 mg/mg Normal [facility] Comment on above: Performed By: #### B MP, CRP #### [facility] [address] [place] [address] Dr. Meron Gentile XR KNEE LT 4V or >on 023 XR KNEE LT 4V or > XR KNEE LT 4V or > 07/28/2022 8:18 PM EDT CLINICAL INDICATION: Knee pain COMPARISON: 10/04/2019 TECHNIQUE: 4 views of the left knee. FINDINGS: No acute fracture or dislocation is identified. Chronic cortical irregularity involving the proximal fibular metaphysis along the medial aspect, may be related to prior trauma. The alignment is otherwise anatomic. The joints are maintained. The soft tissues are grossly unremarkable. IMPRESSION: Chronic cortical irregularity involving the proximal fibular metaphysis along the medial aspect may be related to prior trauma. No evidence of acute osseous abnormality involving the left knee. Electronically authenticated by: JAY KATZ Date: 2022-07-28 21:39 Normal [facility] 07-18-2022 CNPN Telephone (PSYRMN) BISHNU COLES ([id number]) 1980 M Date Time Provider Department 07/18/22 MELLY NEWTON PSYRMN During your visit today, we recorded the following information about you: Jazmin Rangel Adm 07/18/2022 4:11 PM Signed Pharmacy left a voicemail stating they need Dr. Newton to call back and verify Seroquel Dosage. Jazmin Rangel Councilor II Melly Newton MD 07/21/2022 6:32 PM Signed Called pharmacy and left a VM with callback number. Melly Newton MD Allergies As of Date: 07/18/2022 Noted Allergy Reaction KEPPRA (LEVETIRACETAM) 07/31/2010 14 - Other: See Comments Comments: Increases his ADHD KETOROLAC TROMETHAMINE 09/14/2016 16 - Unknown Comments: unknown PRISTIQ (DESVENLAFAXINE) 01/12/2014 14 - Other: See Comments Comments: sz Date Reviewed: 04/28/2022 Reviewed by: Era Nassar LPN - Fully Assessed Reason for Visit: Phone call [Other] Prescriptions as of 07/29/2022 - QUEtiapine (SEROQUEL) 400 mg tablet Take 1 tablet by mouth daily at bedtime. - QUEtiapine (SEROQUEL) 50 mg tablet Take 1 tablet by mouth three times daily as needed (Anxiety). - clonazePAM (KLONOPIN) 2 mg tablet Take 1 tablet by mouth three times daily for 180 days. - lacosamide (VIMPAT) 100 mg tab Take 1 tablet by mouth twice daily for 180 days. - benzocaine-menthol (CEPACOL) 15-3.6 mg lozg Use 1 Lozenge as instructed every 2 hours as needed. - nadolol (CORGARD) 80 mg tablet Take 1 tablet by mouth once daily. - sertraline (ZOLOFT) 100 mg tablet Take 3 tablets by mouth once daily. - QUEtiapine (SEROQUEL) 100 mg tablet Take 1 tablet by mouth daily at bedtime. Take in addition to 300 mg tab for total of 400 mg at bedtime - promethazine (PHENERGAN) 25 mg tablet 1 po tid prn headache or nausea - LORazepam (ATIVAN) 1 mg tablet Take 1 tablet by mouth as needed (for seizure lasting >3 minutes. Max 2 doses in 24 hours.) for up to 180 days. - cyproheptadine (PERIACTIN) 4 mg tablet Take 4 mg by mouth twice daily. - CPAP Change the pressure of autoBipap with EPAP 5-15 mh2o and PS 4-8cmh2O. His DME company is [employer] mask to fit patient preference, ramp, humidification and unlimited supplies Please send us machine download in 1 month - CPAP Please send us machine download in 1 month - LORazepam (ATIVAN) 1 mg tablet Take 1 tablet by mouth as needed (for seizure lasting >3 minutes. Max 2 doses in 24 hours.) for up to 180 days. - SUMAtriptan (IMITREX) 100 mg tablet Take 100 mg by mouth as needed for Migraine Headache (see administration instructions). - Cetirizine 10 mg cap Take 1-2 tablets by mouth as needed. - fluticasone (FLONASE) 50 mcg/actuation nasal spray Use 1 [place] in each nostril twice daily. - albuterol HFA (PROVENTIL HFA, VENTOLIN HFA) 90 mcg/actuation inhaler Inhale 1-2 Puffs as instructed as needed for Wheezing/Shortness of Breath. Problem List As Of Date 07/18/2022 Noted Resolved Epilepsy (HCC) [G40.909] 06/18/2004 Epilepsy with altered consciousness without int*07/31/2010 Depression with anxiety [F41.8] 01/12/2014 Respiratory failure requiring intubation (HCC) *04/07/2016 Acute respiratory failure (HCC) [J96.00] 04/07/2016 03/26/2019 Hx of suicide attempt [Z91.51] 04/07/2016 Bipolar II disorder (HCC) [F31.81] 07/02/2016 Obesity, Class I, BMI 30-34.9 [E66.9] 11/24/2017 Partial epilepsy with impairment of consciousne*01/12/2018 Gastroesophageal reflux disease without esophag*02/03/2018 S/P placement of VNS (vagus nerve stimulation) *12/20/2018 Psychophysiologic insomnia [F51.04] 06/20/2020 HIMA (obstructive sleep apnea) [G47.33] 06/20/2020 Generalized epilepsy (HCC) [G40.309] 09/20/2020 Acute postoperative pain [G89.18] 09/21/2020 Complex partial seizures evolving to generalize*02/12/2021 Recurrent major depression in partial remission*09/02/2021 Encounter Status:Closed by ANGELITO RIDDLE on 07/29/22 [facility] CNPNon 07-09-2022 CNPN Telephone (NE50MN) BISHNU COLES ([id number]) 1980 M Date Time Provider Department 07/09/22 LINO MENDIOLA NE50MN During your visit today, we recorded the following information about you: Stephany Cifuentes PSS 07/09/2022 10:46 AM Signed General call : Full name of person calling: Bishnu Cloes Relationship to patient: self Phone # : [phone] Reason for call: having real bad headaches, and having speech problems Patient of Dr. maury Velasquez, NICHOLAS 07/09/2022 1:57 PM Signed VNS FU 04/[address] Mendiola 08/2021- IMPRESSION: Bishnu Coles is a 40 year old right handed male with a history of medically intractable left temporal lobe epilepsy since age 5 who presents for follow up. He had a VNS replacement in June and then again in September 2020 (Wiring was replaced). He had some tingling in his left arm and it had to be slowly turned up. He last GTC seizure was 2012. He has not had any seizures since our last visit. He has an infection in his ear that was causing motion sickness and sweating. He was treated with antibiotics and it resolved. He has been having trouble with his depression. - Continue Vimpat at 100mg BID - Continue Klonopin 2mg TID Called Bishnu but did not receive answer. Left VM to return jackie to the office. NICHOLAS Thurman RN 07/14/2022 4:20 PM Signed Spoke to [place]. He reports the past month he has had headaches that start on the left side of his head, down to his neck and eventually across his entire head. He has not had a headache provider since the previous CC provider retired many years ago. His family also tells him they notice he has had trouble finding the right word to say intermittently, some time while he is having a headache and other times with no headache. He notices he gets aggravated when he can not say the right word. He has not had any auras or seizures. If the word finding is related to seizures, he has never experienced this before. He has had some added stress related to getting his social security straightened out. He has not had follow up with psychiatry and psychology as providers have left or have not been available and he has not been contacted to reschedule with anyone. Update forwarded for review. NICHOLAS Jarrell PA-C 07/15/2022 7:42 AM Signed It may all be related to the untreated headache. I placed a consult to the headache clinic - we recommend to see them for recs. They likely can do a virtual visit, but if he decides to be seen in person at , we can also get a EEG long to evaluate (although seizures less likely the cause). Thanks, BARTOLOME Griffin RN 07/15/2022 10:14 AM Signed Relayed message to patient and provided number for NI scheduling so he can schedule appointment with the Headache Clinic. Mayco Robles RN Allergies As of Date: 07/09/2022 Noted Allergy Reaction KEPPRA (LEVETIRACETAM) 07/31/2010 14 - Other: See Comments Comments: Increases his ADHD KETOROLAC TROMETHAMINE 09/14/2016 16 - Unknown Comments: unknown PRISTIQ (DESVENLAFAXINE) 01/12/2014 14 - Other: See Comments Comments: agustin Date Reviewed: 04/28/2022 Reviewed by: Era Nassar LPN - Fully Assessed Reason for Visit: Other [3945] Cmt: headaches Primary Visit Diagnosis:Chronic nonintractable headache, unspecified headache type [R51.9, G89.29] Other Visit Diagnosis:Partial epilepsy with impairment of consciousness, intractable (HCC) [G40.219] Order(s):CONSULT TO HEADACHE CLINIC [[id number]] Order #: [id number]: 1 FUTURE Prescriptions as of 07/15/2022 - benzocaine-menthol (CEPACOL) 15-3.6 mg lozg Use 1 Lozenge as instructed every 2 hours as needed. - nadolol (CORGARD) 80 mg tablet Take 1 tablet by mouth once daily. - QUEtiapine (SEROQUEL) 400 mg tablet Take 1 tablet by mouth daily at bedtime. - QUEtiapine (SEROQUEL) 50 mg tablet Take 1 tablet by mouth three times daily as needed (Anxiety). - sertraline (ZOLOFT) 100 mg tablet Take 3 tablets by mouth once daily. - QUEtiapine (SEROQUEL) 100 mg tablet Take 1 tablet by mouth daily at bedtime. Take in addition to 300 mg tab for total of 400 mg at bedtime - lacosamide (VIMPAT) 100 mg tab Take 1 tablet by mouth twice daily for 180 days. - clonazePAM (KLONOPIN) 2 mg tablet Take 1 tablet by mouth three times daily for 180 days. - promethazine (PHENERGAN) 25 mg tablet 1 po tid prn headache or nausea - LORazepam (ATIVAN) 1 mg tablet Take 1 tablet by mouth as needed (for seizure lasting >3 minutes. Max 2 doses in 24 hours.) for up to 180 days. - cyproheptadine (PERIACTIN) 4 mg tablet Take 4 mg by mouth twice daily. - CPAP Change the pressure of autoBipap with EPAP 5-15 mh2o and PS 4-8cmh2O. His DME company is [employer] , new mask to fit patient preference, ramp, humidification and unlimited supplies Ple (more content not included)... Normal [facility] AUTO DIFFon 01-13-2022 BASO # 0.1 103/ul Normal 0.0-0.1 [facility] Comment on above: Performed By: #### C BC #### [facility] [address] [place] [address] Dr. Meron Gentile Basophils/100 WBC (Bld) 0.3 % Normal 0.2-2.0 [facility] Comment on above: Performed By: #### C BC #### [facility] [address] [place] [address] Dr. Meron Gentile EO # 0.0 103/ul Normal 0.0-0.7 [facility] Comment on above: Performed By: #### C BC #### [facility] [address] [place] [address] Dr. Meron Gentile Eosinophils/100 WBC (Bld) 0.1 % Critically low 0.9-7.0 [facility] Comment on above: Performed By: #### C BC #### [facility] [address] [place] [address] Dr. Meron Gentile Erythrocyte distribution width (RBC) [Ratio] 12.4 % Normal 11.0-15.0 [facility] Comment on above: Performed By: #### C BC #### [facility] [address] [place] [address] Dr. Meron Gentile Hematocrit (Bld) [Volume fraction] 44.3 % Normal 42.0-54.0 [facility] Comment on above: Performed By: #### C BC #### [facility] [address] [place] [address] Dr. Meron Gentile Hemoglobin (Bld) [Mass/Vol] 15.0 g/dL Normal 14.0-18.0 [facility] Comment on above: Performed By: #### C BC #### [facility] [address] [place] [address] Dr. Meron Gentile IG # 0.28 10e3/ul Critically high 0.00-0.03 [facility] Comment on above: Performed By: #### C BC #### [facility] [address] [place] [address] Dr. Meron Gentile IG % 1.7 % Critically high 0.0-0.5 [facility] Comment on above: Performed By: #### C BC #### [facility] [address] [place] [address] Dr. Meron Gentile LYMPH # 3.4 103/ul Normal 1.2-3.8 [facility] Comment on above: Performed By: #### C BC #### [facility] [address] [place] [address] Dr. Meron Gentile Lymphocytes/100 WBC (Bld) 20.2 % Critically low 20.5-60.0 [facility] Comment on above: Performed By: #### C BC #### [facility] [address] [place] [address] Dr. Meron Gentile MANUAL DIFF REQ NO Normal [facility] Comment on above: Performed By: #### C BC #### [facility] [address] [place] [address] Dr. Meron Gentile MCH (RBC) [Entitic mass] 29.2 pg Normal 25.9-34.0 [facility] Comment on above: Performed By: #### C BC #### [facility] [address] [place] [address] Dr. Meron Gentile MCHC (RBC) [Mass/Vol] 33.9 g/dL Normal 29.9-35.2 [facility] Comment on above: Performed By: #### C BC #### [facility] [address] [place] [address] Dr. Meron Gentile MCV (RBC) [Entitic vol] 86.4 fL Normal 80.0-94.0 [facility] Comment on above: Performed By: #### C BC #### [facility] [address] [place] [address] Dr. Meron Gentile MONO # 1.3 103/ul Critically high 0.3-0.8 [facility] Comment on above: Performed By: #### C BC #### [facility] [address] [place] [address] Dr. Meron Gentile Monocytes/100 WBC (Bld) 7.5 % Normal 1.7-12.0 [facility] Comment on above: Performed By: #### C BC #### [facility] [address] [address] [address] Meron Gentile NEUT # 11.7 103/ul Critically high 1.4-6.5 [facility] Comment on above: Performed By: #### C BC #### [facility] [address] [address] [address] Meron Gentile Neutrophils/100 WBC (Bld) 70.2 % Normal 43.0-75.0 [facility] Comment on above: Performed By: #### C BC #### [facility] [address] [place] [address] Dr. Meron Gentile Platelet mean volume (Bld) [Entitic vol] 8.6 fL Critically low 9.5-13.5 [facility] Comment on above: Performed By: #### C BC #### [facility] [address] [place] [address] Dr. Meron Gentile PLT 369 103/ul Normal 150-450 [facility] Comment on above: Performed By: #### C BC #### [facility] [address] [place] [address] Dr. Meron Gentile RBC 5.13 106/ul Normal 4.70-6.10 [facility] Comment on above: Performed By: #### C BC #### [facility] [address] [place] [address] Dr. Meron Gentile WBC 16.7 103/ul Critically high 4.0-11.0 [facility] Comment on above: Performed By: #### C BC #### [facility] [address] [place] [address] Dr. Meron Gentile PROF 14(COMP METB)on 022 Albumin [Mass/Vol] 3.6 g/dL Normal 3.4-5.0 [facility] Comment on above: Performed By: #### B MP, CRP #### [facility] [address] [place] [address] Dr. Meron Gentile Albumin/Globulin [Mass ratio] 1.1 {ratio} Normal [facility] Comment on above: Performed By: #### B MP, CRP #### [facility] [address] [address] [address] Meron Gentile ALP [Catalytic activity/Vol] 59 U/L Normal 46-116 [facility] Comment on above: Performed By: #### B MP, CRP #### [facility] [address] [address] [address] Meron Gentile ALT [Catalytic activity/Vol] 36 U/L Normal 16-63 [facility] Comment on above: Performed By: #### B MP, CRP #### [facility] [address] [address] [address] Meron Gentile Anion gap [Moles/Vol] 10.2 mmol/L Normal [facility] Comment on above: Performed By: #### B MP, CRP #### [facility] [address] [address] [address] Meron Gentile AST [Catalytic activity/Vol] 11 U/L Critically low 15-37 [facility] Comment on above: Performed By: #### B MP, CRP #### [facility] [address] [address] [address] Meron Gentile Bilirubin [Mass/Vol] 0.4 mg/dL Normal 0.2-1.0 [facility] Comment on above: Performed By: #### B MP, CRP #### [facility] [address] [address] [address] Meron Gentile Calcium [Mass/Vol] 8.6 mg/dL Normal 8.5-10.1 [facility] Comment on above: Performed By: #### B MP, CRP #### [facility] [address] [address] [address] Meron Gentile Chloride [Moles/Vol] 99 mmol/L Normal 98-107 [facility] Comment on above: Performed By: #### B MP, CRP #### [facility] [address] [address] [address] Meron Gentile CO2 [Moles/Vol] 28.2 mmol/L Normal 21.0-32.0 [facility] Comment on above: Performed By: #### B MP, CRP #### [facility] [address] [address] [address] Meron Gentile Creatinine [Mass/Vol] 0.77 mg/dL Normal 0.70-1.30 [facility] Comment on above: Performed By: #### B MP, CRP #### [facility] [address] [address] [address] Meron Gentile EGFR-AF ISRAELI >60 Normal >=60 [facility] Comment on above: Performed By: #### B MP, CRP #### [facility] [address] [address] [address] Meron Gentile EGFR-NON AF ISRAELI >60 Normal >=60 [facility] Comment on above: Performed By: #### B MP, CRP #### [facility] [address] [address] [address] Meron Gentile Globulin (S) [Mass/Vol] 3.2 g/dL Normal [facility] Comment on above: Performed By: #### B MP, CRP #### [facility] [address] [address] [address] Meron Gentile Glucose [Mass/Vol] 107 mg/dL Critically high 74-[address] [facility] Comment on above: Performed By: #### B MP, CRP #### [facility] [address] [address] [address] Meron Gentile Potassium [Moles/Vol] 3.4 mmol/L Critically low 3.5-5.1 [facility] Comment on above: Performed By: #### B MP, CRP #### [facility] [address] [address] [address] Meron Gentile Protein [Mass/Vol] 6.8 g/dL Normal 6.4-8.2 [facility] Comment on above: Performed By: #### B MP, CRP #### [facility] [address] [address] [address] Meron Gentile Sodium [Moles/Vol] 134 mmol/L Critically low 136-145 [facility] Comment on above: Performed By: #### B MP, CRP #### [facility] [address] [address] [address] Meron Gentile Urea nitrogen [Mass/Vol] 10.0 mg/dL Normal 7.0-18.0 [facility] Comment on above: Performed By: #### B MP, CRP #### [facility] [address] [address] [address] Meron Gentile Urea nitrogen/Creatinine [Mass ratio] 13.0 mg/mg Normal [facility] Comment on above: Performed By: #### B MP, CRP #### [facility] [address] [address] [address] Meron Gentile TROPONIN, HIGH SENSITIVITYon 01-13-2022 HSTROP 5.3 pg/mL Normal 4.0-76.1 [facility] Comment on above: Result Comment: CUT- OFF POINTS HAVE BEEN ESTABLISHED BASED ON THE FOURTH UNIVERSAL DEFINITIONS OF MYOCARDIAL INFARCTION. THE UPPER REFERENCE LIMIT (URL) OF TROPONIN, DEFINED THE 99TH PERCENTILE OF cTnI DISTRIBUTION IN A REFERENCE POPULATION, HAS BEEN CONFIRMED THE DECISION THRESHOLD FOR [place] DIAGNOSIS. Performed By: #### B MP, CRP #### [facility] [address] [address] [address] Meron Gentile XR CHEST 1 Von 01-13-2022 XR CHEST 1 V EXAMINATION: XR CHES T 1 V HISTORY: Chest pain COMPARISON: Chest 01/05/2022. TECHNIQUE: Portable chest FINDINGS: The lung parenchyma is free of consolidation or infiltrate. No pneumothorax or pleural effusion. Left-sided cardiac pacemaker The cardiac, mediastinal and hilar contours are normal. The visualized osseous structures exhibit no gross abnormality. IMPRESSION: No acute cardiopulmonary abnormality. Electronically authenticated by: YAMILETH LEE Date: 2022-01-12 22:48 Normal [facility] No Panel Informationon 01-07 [facility] CARDIAC TYLER 3-6on 2 CK [Catalytic activity/Vol] 98 U/L Normal 39-308 [facility] Comment on above: Performed By: #### C MREP #### [facility] [address] [address] [address] Meron Gentile CK.MB [Mass/Vol] 1.08 ng/mL Normal <=3.60 [facility] Comment on above: Performed By: #### C BULL #### [facility] [address] [address] [address] Meron Gentile HSTROP 6.2 pg/mL Normal 4.0-76.1 [facility] Comment on above: Result Comment: CUT- OFF POINTS HAVE BEEN ESTABLISHED BASED ON THE FOURTH UNIVERSAL DEFINITIONS OF MYOCARDIAL INFARCTION. THE UPPER REFERENCE LIMIT (URL) OF TROPONIN, DEFINED THE 99TH PERCENTILE OF cTnI DISTRIBUTION IN A REFERENCE POPULATION, HAS BEEN CONFIRMED THE DECISION THRESHOLD FOR [place] DIAGNOSIS. Performed By: #### C MREP #### [facility] [id number] Meron Gentile XR CHEST 1 Von 01-06-2022 XR CHEST 1 V CLINICAL HISTORY: Chest pain COMPARISON: Chest radiograph 05/30/2021 FINDINGS: Portable AP view of the chest obtained. Cardiomediastinal silhouette is normal. Lungs are clear, no evidence of infiltrate, suspicious nodule, or mass. No evidence of significant pleural fluid on this portable projection. No acute bony abnormality. Vagal nerve stimulator redemonstrated. IMPRESSION: No acute abnormality. Electronically authenticated by: NADIRA MARTINI Date: 2022-01-05 22:18 Normal [facility] CARDIAC TYLER ADMITon 022 CK [Catalytic activity/Vol] 107 U/L Normal 39-308 [facility] Comment on above: Performed By: #### C CLEMENCIA, BARRY #### [facility] [id number] Meron Gentile CK.MB [Mass/Vol] 1.26 ng/mL Normal <=3.60 [facility] Comment on above: Performed By: #### C CLEMENCIA, BMP #### [facility] [id number] Meron Gentile HSTROP 6.3 pg/mL Normal 4.0-76.1 [facility] Comment on above: Result Comment: CUT- OFF POINTS HAVE BEEN ESTABLISHED BASED ON THE FOURTH UNIVERSAL DEFINITIONS OF MYOCARDIAL INFARCTION. THE UPPER REFERENCE LIMIT (URL) OF TROPONIN, DEFINED THE 99TH PERCENTILE OF cTnI DISTRIBUTION IN A REFERENCE POPULATION, HAS BEEN CONFIRMED THE DECISION THRESHOLD FOR [place] DIAGNOSIS. Performed By: #### C MADM, BMP #### [facility] [address] [place] [address] Dr. Meron Gentile PERLA 41 ng/mL Normal 16-96 [facility] Comment on above: Performed By: #### C MADM, BMP #### [facility] [address] [place] [address] Dr. Meron Gentile CBC AUTO DIFFon 01-05-2022 BASO # 0.0 103/ul Normal 0.0-0.1 [facility] Comment on above: Performed By: #### B MP, CRP #### [facility] [address] [place] [address] Dr. Meron Gentile Basophils/100 WBC (Bld) 0.5 % Normal 0.2-2.0 [facility] Comment on above: Performed By: #### B MP, CRP #### [facility] [address] [place] [address] Dr. Meron Gentile EO # 0.1 103/ul Normal 0.0-0.7 [facility] Comment on above: Performed By: #### B MP, CRP #### [facility] [address] [place] [address] Dr. Meron Gentile Eosinophils/100 WBC (Bld) 1.2 % Normal 0.9-7.0 [facility] Comment on above: Performed By: #### B MP, CRP #### [facility] [address] [place] [address] Dr. Meron Gentile Erythrocyte distribution width (RBC) [Ratio] 12.2 % Normal 11.0-15.0 [facility] Comment on above: Performed By: #### B MP, CRP #### [facility] [address] [place] [address] Dr. Meron Gentile Hematocrit (Bld) [Volume fraction] 45.6 % Normal 42.0-54.0 [facility] Comment on above: Performed By: #### B MP, CRP #### [facility] [address] [place] [address] Dr. Meron Gentile Hemoglobin (Bld) [Mass/Vol] 15.2 g/dL Normal 14.0-18.0 [facility] Comment on above: Performed By: #### B MP, CRP #### [facility] [address] [place] [address] Dr. Meron Gentile IG # 0.02 10e3/ul Normal 0.00-0.03 [facility] Comment on above: Performed By: #### B MP, CRP #### [facility] [address] [place] [address] Dr. Meron Gentile IG % 0.2 % Normal 0.0-0.5 [facility] Comment on above: Performed By: #### B MP, CRP #### [facility] [address] [place] [address] Dr. Meron Gentile LYMPH # 1.6 103/ul Normal 1.2-3.8 [facility] Comment on above: Performed By: #### B MP, CRP #### [facility] [address] [place] [address] Dr. Meron Gentile Lymphocytes/100 WBC (Bld) 18.9 % Critically low 20.5-60.0 [facility] Comment on above: Performed By: #### B MP, CRP #### [facility] [address] [place] [address] Dr. Meron Gentile MANUAL DIFF REQ NO Normal [facility] Comment on above: Performed By: #### B MP, CRP #### [facility] [address] [place] [address] Dr. Meron Gentile MCH (RBC) [Entitic mass] 29.0 pg Normal 25.9-34.0 [facility] Comment on above: Performed By: #### B MP, CRP #### [facility] [address] [place] [address] Dr. Meron Gentile MCHC (RBC) [Mass/Vol] 33.3 g/dL Normal 29.9-35.2 [facility] Comment on above: Performed By: #### B MP, CRP #### [facility] [address] [place] [address] Dr. Meron Gentile MCV (RBC) [Entitic vol] 86.9 fL Normal 80.0-94.0 [facility] Comment on above: Performed By: #### B MP, CRP #### [facility] [address] [place] [address] Dr. Meron Gentile MONO # 1.1 103/ul Critically high 0.3-0.8 [facility] Comment on above: Performed By: #### B MP, CRP #### [facility] [address] [place] [address] Dr. Meron Gentile Monocytes/100 WBC (Bld) 12.3 % Critically high 1.7-12.0 [facility] Comment on above: Performed By: #### B MP, CRP #### [facility] [address] [place] [address] Dr. Meron Gentile NEUT # 5.7 103/ul Normal 1.4-6.5 [facility] Comment on above: Performed By: #### B MP, CRP #### [facility] [address] [place] [address] Dr. Meron Gentile Neutrophils/100 WBC (Bld) 66.9 % Normal 43.0-75.0 [facility] Comment on above: Performed By: #### B MP, CRP #### [facility] [address] [place] [address] Dr. Meron Gentile Platelet mean volume (Bld) [Entitic vol] 8.6 fL Critically low 9.5-13.5 [facility] Comment on above: Performed By: #### B MP, CRP #### [facility] [address] [place] [address] Dr. Meron Gentile PLT 279 103/ul Normal 150-450 [facility] Comment on above: Performed By: #### B MP, CRP #### [facility] [address] [place] [address] Dr. Meron Gentile RBC 5.25 106/ul Normal 4.70-6.10 [facility] Comment on above: Performed By: #### B MP, CRP #### [facility] [address] [place] [address] Dr. Meron Gentile WBC 8.6 103/ul Normal 4.0-11.0 [facility] Comment on above: Performed By: #### B MP, CRP #### [facility] [address] [place] [address] Dr. Meron Gentile Covid-19 PCR ([facility])on 12-17 SARS-CoV-2 (COVID-19) RNA SULEIMAN+probe Ql (Unsp spec) Not detected Normal NOT DETECTED [facility] Comment on above: Result Comment: When diagnostic testing is negative, the possibility of a false negative should be considered in the context of a patient's recent exposures and the presence of clinical signs and symptoms consistent with SARS-CoV-2. This test is not yet approved or cleared by the [place] FDA. When there are no FDA-approved or cleared tests available, and other criteria are met, FDA can make tests available under an emergency access mechanism called an Emergency Use Authorization (EUA). The EUA for this test is supported by the [place] of Health and Human Service's declaration that circumstances exist to justify the emergency use of in vitro diagnostics for the detection and/or diagnosis of the virus that causes COVID-19. This EUA will remain in effect for the duration of the COVID-19 declaration justifying emergency of IVDs, unless it is terminated or revoked by the FDA (after which the test may no longer be used). Performed By: #### C MADM, BMP #### [facility] [address] [place] [address] Dr. Meron Gentile D-DIMERon 01-05-2022 D-DIMER 0.19 mg/L FEU Normal <=0.59 [facility] Comment on above: Performed By: #### D DIM #### [facility] [address] [place] [address] Dr. Meron Gentile D-DIMER COMMENTS SEE BELOW Normal [facility] Comment on above: Result Comment: Incr eases in D-Dimer concentration observed with thromboembolic events can be variable due to localization, size, and age of the thrombus. Therefore, a thromboembolic event cannot be diagnosed with certainty on the basis of the reference range. D-Dimers may also be elevated for a variety of disorders including: advanced age, , coronary disease, cancer, liver disease, infection, inflammation, hematoma, DIC, trauma, post-surgery, diabetes, thrombolytic or anticoagulant therapy, stress, and generalized hospitalization. Performed By: #### D DIM #### [facility] [address] [place] [address] Dr. Meron Gentile INFLUENZA A AND B AGon 01-05 INFLUENZA A AG Negative Normal NEGATIVE SEE COMMENT [facility] Comment on above: Performed By: #### C CLEMENCIA, BMP #### [facility] [address] [place] [address] Dr. Meron Gentile INFLUENZA B AG Negative Normal NEGATIVE SEE COMMENT [facility] Comment on above: Performed By: #### C CLEMENCIA, BMP #### [facility] [address] [place] [address] Dr. Meron Gentile INTERNAL CONTROLS Within Normal Limits Normal Wi thin Normal Limits [facility] Comment on above: Performed By: #### C CLEMENCIA, BMP #### [facility] [address] [place] [address] Dr. Meron Gentile PROF CHEM 8 (BAS METB)on Anion gap [Moles/Vol] 9.3 mmol/L Normal [facility] Comment on above: Performed By: #### C CLEMENCIA, BMP #### [facility] [address] [place] [address] Dr. Meron Gentile Calcium [Mass/Vol] 9.1 mg/dL Normal 8.5-10.1 [facility] Comment on above: Performed By: #### C CLEMENCIA, BMP #### [facility] [address] [place] [address] Dr. Meron Gentile Chloride [Moles/Vol] 97 mmol/L Critically low 98-107 [facility] Comment on above: Performed By: #### C CLEMENCIA, BMP #### [facility] [address] [place] [address] Dr. Meron Gentile CO2 [Moles/Vol] 30.6 mmol/L Normal 21.0-32.0 [facility] Comment on above: Performed By: #### C CLEMENCIA, BMP #### [facility] [address] [address] [address] Meron Gentile Creatinine [Mass/Vol] 0.77 mg/dL Normal 0.70-1.30 [facility] Comment on above: Performed By: #### C MADM, BMP #### [facility] [address] [address] [address] Meron Gentile EGFR-AF ISRAELI >60 Normal >=60 [facility] Comment on above: Performed By: #### C MADM, BMP #### [facility] [address] [address] [address] Meron Gentile EGFR-NON AF ISRAELI >60 Normal >=60 [facility] Comment on above: Performed By: #### C DONNIEM, BMP #### [facility] [address] [address] [address] Meron Gentile Glucose [Mass/Vol] 104 mg/dL Normal 74-106 [facility] Comment on above: Performed By: #### C CLEMENCIA, BMP #### [facility] [address] [address] [address] Meron Gentile Potassium [Moles/Vol] 3.9 mmol/L Normal 3.5-5.1 [facility] Comment on above: Performed By: #### C CLEMENCIA, BMP #### [facility] [address] [address] [address] Meron Gentile Sodium [Moles/Vol] 133 mmol/L Critically low 136-145 [facility] Comment on above: Performed By: #### C DONNIEM, BMP #### [facility] [address] [address] [address] Meron Gentile Urea nitrogen [Mass/Vol] 8.0 mg/dL Normal 7.0-18.0 [facility] Comment on above: Performed By: #### C DONNIEM, BMP #### [facility] [address] [address] [address] Meron Gentile Urea nitrogen/Creatinine [Mass ratio] 10.4 mg/mg Normal [facility] Comment on above: Performed By: #### C CLEMENCIA, BMP #### [facility] [address] [place] [address] Dr. Meron Gentile INSULINon 09-26-2021 Insulin 14.8 uIU/mL Normal 2.6-24.9 [facility] Comment on above: Performed By: #### I NSULIN #### [facility] [address] [place] [address] Dr. Meron Gentile CBC AUTO DIFFon 09-25-2021 BASO # 0.1 103/ul Normal 0.0-0.1 [facility] Comment on above: Performed By: #### C BC #### [facility] [address] [place] [address] Dr. Meron Gentile Basophils/100 WBC (Bld) 0.7 % Normal 0.2-2.0 [facility] Comment on above: Performed By: #### C BC #### [facility] [address] [place] [address] Dr. Meron Gentile EO # 0.3 103/ul Normal 0.0-0.7 [facility] Comment on above: Performed By: #### C BC #### [facility] [address] [place] [address] Dr. Meron Gentile Eosinophils/100 WBC (Bld) 3.8 % Normal 0.9-7.0 [facility] Comment on above: Performed By: #### C BC #### [facility] [address] [place] [address] Dr. Meron Gentile Erythrocyte distribution width (RBC) [Ratio] 12.2 % Normal 11.0-15.0 [facility] Comment on above: Performed By: #### C BC #### [facility] [address] [place] [address] Dr. Meron Gentile Hematocrit (Bld) [Volume fraction] 46.5 % Normal 42.0-54.0 [facility] Comment on above: Performed By: #### C BC #### [facility] [address] [place] [address] Dr. Meron Gentile Hemoglobin (Bld) [Mass/Vol] 15.5 g/dL Normal 14.0-18.0 [facility] Comment on above: Performed By: #### C BC #### [facility] [address] [address] [address] Meron Gentile IG # 0.04 10e3/ul Critically high 0.00-0.03 [facility] Comment on above: Performed By: #### C BC #### [facility] [address] [place] [address] Dr. Meron Gentile IG % 0.5 % Normal 0.0-0.5 [facility] Comment on above: Performed By: #### C BC #### [facility] [address] [place] [address] Dr. Meron Gentile LYMPH # 2.4 103/ul Normal 1.2-3.8 [facility] Comment on above: Performed By: #### C BC #### [facility] [address] [place] [address] Dr. Meron Gentile Lymphocytes/100 WBC (Bld) 31.5 % Normal 20.5-60.0 [facility] Comment on above: Performed By: #### C BC #### [facility] [address] [place] [address] Dr. Meron Gentile MANUAL DIFF REQ NO Normal [facility] Comment on above: Performed By: #### C BC #### [facility] [address] [place] [address] Dr. Meron Gentile MCH (RBC) [Entitic mass] 29.1 pg Normal 25.9-34.0 [facility] Comment on above: Performed By: #### C BC #### [facility] [address] [place] [address] Dr. Meron Gentile MCHC (RBC) [Mass/Vol] 33.3 g/dL Normal 29.9-35.2 [facility] Comment on above: Performed By: #### C BC #### [facility] [address] [place] [address] Dr. Meron Gentile MCV (RBC) [Entitic vol] 87.2 fL Normal 80.0-94.0 [facility] Comment on above: Performed By: #### C BC #### [facility] [address] [place] [address] Dr. Meron Gentile MONO # 0.6 103/ul Normal 0.3-0.8 [facility] Comment on above: Performed By: #### C BC #### [facility] [address] [address] [address] Meron Gentile Monocytes/100 WBC (Bld) 7.5 % Normal 1.7-12.0 [facility] Comment on above: Performed By: #### C BC #### [facility] [address] [place] [address] Dr. Meron Gentile NEUT # 4.3 103/ul Normal 1.4-6.5 [facility] Comment on above: Performed By: #### C BC #### [facility] [address] [place] [address] Dr. Meron Gentile Neutrophils/100 WBC (Bld) 56.0 % Normal 43.0-75.0 [facility] Comment on above: Performed By: #### C BC #### [facility] [address] [place] [address] Dr. Meron Gentile Platelet mean volume (Bld) [Entitic vol] 8.7 fL Critically low 9.5-13.5 [facility] Comment on above: Performed By: #### C BC #### [facility] [address] [place] [address] Dr. eMron Gentile PLT 290 103/ul Normal 150-450 [facility] Comment on above: Performed By: #### C BC #### [facility] [address] [place] [address] Dr. Meron Gentile RBC 5.33 106/ul Normal 4.70-6.10 [facility] Comment on above: Performed By: #### C BC #### [facility] [address] [place] [address] Dr. Meron Gentile WBC 7.7 103/ul Normal 4.0-11.0 [facility] Comment on above: Performed By: #### C BC #### [facility] [address] [place] [address] Dr. Meron Gentile ECHOCARDIO M/2D COMPLETEon 0 09-25-2021 ECHOCARDIO M/2D COMPLETE Patient: BISHNU COLES Exam Date: 09/25/2021 : 1980 Gender:M Ordering : DR ERLINDA NUNEZ . Admission #: [id number] Family : Order #: [id number] CLICK HERE TO VIEW EXAM ECHOCARDIOGRAM REPORT PROCEDURE: CARDIO PULMONARY ECHOCARDIO M/2D COMP INDICATIONS: Chest pain, hypertension COMPARISON: None. DESCRIPTION: COMPLETE ECHOCARDIOGRAM Real-time transthoracic echocardiography with 2D, M-mode, spectral and color flow Doppler performed. QUALITY: Technical quality was good. LEFT VENTRICLE: Normal chamber size. Mild concentric left ventricular hypertrophy. No regional wall motion abnormalities. LV EF: Normal left ventricular ejection fraction, (55%). DIASTOLIC: Normal diastolic function. ATRIAL SEPTUM: Visually appears intact. LEFT ATRIUM: Normal chamber size. RIGHT ATRIUM: Normal chamber size. RIGHT VENTRICLE: Normal chamber size. Normal right ventricular systolic function. TRICUSPID VALVE: Normal mobility and thickness. No stenosis with trivial regurgitation. No evidence of pulmonary hypertension. RVSP 24 mmHg MITRAL VALVE: Normal mobility and thickness. No evidence of mitral valve stenosis. There is no mitral annular calcification. Trivial mitral regurgitation. AORTIC VALVE: Normal trileaflet appearance. No visible sclerosis. Normal leaflet mobility. No evidence of aortic valve stenosis. No aortic regurgitation. AORTIC ROOT: Normal diameter and appearance. Ascending aorta is normal in size. PULMONIC VALVE: Normal thickness and mobility. No stenosis. No regurgitation. PERICARDIUM: No evidence of pericardial effusion. IVC: PLEURA: CONCLUSION: 1. Mild concentric left ventricular hypertrophy. Normal LV systolic function. Ejection fraction is 55%. 2. Normal diastolic function. 3. Normal right ventricular systolic function. 4. No significant valvular dysfunction. 5. Normal right-sided pressures. 6. No pericardial effusion. Adult Echocardiography Procedure Report Left Ventricle LVEDD (3.7 - 5.6 cm): 4.72 cm LVESD (2.2 - 4.0 cm): 3.57 cm LVIVS thickness (0.6 - 1.2 cm): 1.25 cm LVPW thickness (0.5 - 1.0 cm): 1.12 cm e': 6.47 cm/s E - e': 6.50 LVOT Area (cm2): 4.91 cm2 LVOT Diameter 2.50 cm Left Ventricular Ejection Fraction: 55 % Left Atrium LA Volume Index (2D A2C): 30.50 ml/m2 Left Atrium Systolic Dimension: 4.00 cm Left Atrium Systolic Area(A2C): 21.80 cm2 Left Atrium Systolic Area(A4C): 23.10 cm2 Left Atrium Systolic Volume(A2C): 93997 mm3 Left Atrium Systolic Volume(A4C): 91331 mm3 Mitral Valve MV E to A Ratio: 1 Mitral Valve A-Wave Peak Velocity: 42.90 cm/s Mitral Valve E-Wave Peak Velocity: 42.00 cm/s Deceleration Time: 230 ms Right Ventricle Aorta AO Root Diam: 3.60 cm Aortic Valve AoV Area (Peak Alberto): 4.03 cm2 Peak Velocity(Antegrade Flow): 93.80 cm/s Peak Gradient(Antegrade Flow): 4 mm[Hg] Tricuspid Valve Pulmonic Valve Peak Velocity: 107.00 cm/s Peak Gradient: 5 mm[Hg] Right Atrium Dictated by: Milan Perez M.D. on 09/25/2021 at 16:56 Approved by: Milan Perez M.D. on 09/25/2021 at 16:59 Normal [facility] FREE THYROXINE INDEX T7on FTI 2.58 Normal 1.30-4.50 [facility] Comment on above: Performed By: #### B MP, CRP #### [facility] [address] [address] [address] Meron Gentile T3U 34.0 % Normal 33.0-40.0 [facility] Comment on above: Performed By: #### B MP, CRP #### [facility] [address] [address] [address] Meron Gentile T4 [Mass/Vol] 7.60 ug/dL Normal 4.50-12.10 [facility] Comment on above: Performed By: #### B MP, CRP #### [facility] [address] [address] [address] Meron Gentile GLYCOHEMOGLOBIN A1Con 2021 ADA RECOMMENDATION SEE BELOW Normal [facility] Comment on above: Result Comment: ADA RECOMMENDED LIMIT 4.0 - 6.0 ADA THERAPEUTIC TARGET < 7.0 ACTION SUGGESTED > 7.0 Performed By: #### C CLEMENCIA, BMP #### [facility] [address] [address] [address] Meron Gentile Glucose [Mass/Vol] 111 mg/dL Normal [facility] Comment on above: Performed By: #### C DONNIEM, BMP #### [facility] [address] [address] [address] Meron Gentile HbA1c (Bld) [Mass fraction] 5.5 % Normal 4.5-6.2 [facility] Comment on above: Performed By: #### C CLEMENCIA, BMP #### [facility] [address] [place] [address] Dr. Meron Gentile LIPID PROFILEon 09-25-2021 CHOL-HDL RATIO NORM SEE BELOW Normal [facility] Comment on above: Result Comment: 3.3 - 4.4 LOW RISK 4.4 - 7.1 AVERAGE RISK 7.1 - 11.0 MODERATE RISK >11.0 HIGH RISK Performed By: #### B MP, CRP #### [facility] [address] [place] [address] Dr. Meron Gentile Cholesterol [Mass/Vol] 257 mg/dL Critically high <=200 [facility] Comment on above: Performed By: #### B MP, CRP #### [facility] [address] [place] [address] Dr. Meron Gentile Cholesterol in HDL [Mass/Vol] 41 mg/dL Normal 40-60 [facility] Comment on above: Performed By: #### B MP, CRP #### [facility] [address] [place] [address] Dr. Meron Gentile Cholesterol in LDL [Mass/Vol] 171.6 mg/dL Normal [facility] Comment on above: Performed By: #### B MP, CRP #### [facility] [address] [place] [address] Dr. Meron Gentile Cholesterol.total/Cho lesterol in HDL [Mass ratio] 6.3 {ratio} Normal [facility] Comment on above: Performed By: #### B MP, CRP #### [facility] [address] [address] [address] Meron Gentile HDL NORMAL > or = 60 mg/dl - LO W CARDIOVASCULAR RISK <40 mg/dl - HIGH CARDIOVASCULAR RISK Normal [facility] Comment on above: Performed By: #### B MP, CRP #### [facility] [address] [address] [address] Meron Gentile LDL CALC NORMAL SEE BELOW Normal [facility] Comment on above: Result Comment: <100 mg/dl OPTIMAL 100 - 129 mg/dl NEAR OR ABOVE OPTIMAL 130 - 159 mg/dl BORDERLINE HIGH 160 - 189 mg/dl HIGH >190 mg/dl VERY HIGH Performed By: #### B MP, CRP #### [facility] [address] [place] [address] Dr. Meron Gentile Triglyceride [Mass/Vol] 222 mg/dL Critically high <=150 [facility] Comment on above: Performed By: #### B MP, CRP #### [facility] [address] [address] [address] Meron Gentile VLDL CALC 44.4 mg/dL Normal [facility] Comment on above: Performed By: #### B MP, CRP #### [facility] [address] [place] [address] Dr. Meron Gentile PROF 14(COMP METB)on 022 Albumin [Mass/Vol] 3.7 g/dL Normal 3.4-5.0 [facility] Comment on above: Performed By: #### B MP, CRP #### [facility] [address] [place] [address] Dr. Meron Gentile Albumin/Globulin [Mass ratio] 1.1 {ratio} Normal [facility] Comment on above: Performed By: #### B MP, CRP #### [facility] [address] [place] [address] Dr. Meron Gentile ALP [Catalytic activity/Vol] 55 U/L Normal 46-116 [facility] Comment on above: Performed By: #### B MP, CRP #### [facility] [address] [place] [address] Dr. Meron Gentile ALT [Catalytic activity/Vol] 60 U/L Normal 16-63 [facility] Comment on above: Performed By: #### B MP, CRP #### [facility] [address] [place] [address] Dr. Meron Gentile Anion gap [Moles/Vol] 11.5 mmol/L Normal [facility] Comment on above: Performed By: #### B MP, CRP #### [facility] [address] [address] [address] Meron Gentile AST [Catalytic activity/Vol] 19 U/L Normal 15-37 [facility] Comment on above: Performed By: #### B MP, CRP #### [facility] [address] [place] [address] Dr. Meron Gentile Bilirubin [Mass/Vol] 0.4 mg/dL Normal 0.2-1.0 [facility] Comment on above: Performed By: #### B MP, CRP #### [facility] [address] [place] [address] Dr. Meron Gentile Calcium [Mass/Vol] 9.0 mg/dL Normal 8.5-10.1 [facility] Comment on above: Performed By: #### B MP, CRP #### [facility] [address] [place] [address] Dr. Meron Gentile Chloride [Moles/Vol] 100 mmol/L Normal 98-107 [facility] Comment on above: Performed By: #### B MP, CRP #### [facility] [address] [place] [address] Dr. Meron Gentile CO2 [Moles/Vol] 29.4 mmol/L Normal 21.0-32.0 [facility] Comment on above: Performed By: #### B MP, CRP #### [facility] [address] [place] [address] Dr. Meron Gentile Creatinine [Mass/Vol] 0.80 mg/dL Normal 0.70-1.30 [facility] Comment on above: Performed By: #### B MP, CRP #### [facility] [address] [place] [address] Dr. Meron Gentile EGFR-AF ISRAELI >60 Normal >=60 [facility] Comment on above: Performed By: #### B MP, CRP #### [facility] [address] [address] [address] Meron Gentile EGFR-NON AF ISRAELI >60 Normal >=60 [facility] Comment on above: Performed By: #### B MP, CRP #### [facility] [address] [address] [address] Meron Gentile Globulin (S) [Mass/Vol] 3.3 g/dL Normal [facility] Comment on above: Performed By: #### B MP, CRP #### [facility] [address] [address] [address] Meron Gentile Glucose [Mass/Vol] 124 mg/dL Critically high 74-[address] [facility] Comment on above: Performed By: #### B MP, CRP #### [facility] [address] [address] [address] Meron Gentile Potassium [Moles/Vol] 3.9 mmol/L Normal 3.5-5.1 [facility] Comment on above: Performed By: #### B MP, CRP #### [facility] [address] [place] [address] Dr. Meron Gentile Protein [Mass/Vol] 7.0 g/dL Normal 6.4-8.2 [facility] Comment on above: Performed By: #### B MP, CRP #### [facility] [address] [place] [address] Dr. Meron Gentile Sodium [Moles/Vol] 137 mmol/L Normal 136-145 [facility] Comment on above: Performed By: #### B MP, CRP #### [facility] [address] [address] [address] Meron Gentile Urea nitrogen [Mass/Vol] 10.0 mg/dL Normal 7.0-18.0 [facility] Comment on above: Performed By: #### B MP, CRP #### [facility] [address] [address] [address] Meron Gentile Urea nitrogen/Creatinine [Mass ratio] 12.5 mg/mg Normal [facility] Comment on above: Performed By: #### B MP, CRP #### [facility] [address] [address] [address] Meron Gentile TSHon 09-25-2021 TSH 4.858 uIU/mL Critically high 0.358-3.740 [facility] Comment on above: Performed By: #### B MP, CRP #### [facility] [address] [address] [address] Meron Gentile TSH RANGE SEE BELOW Normal [facility] Comment on above: Result Comment: <0.3 4 UIU/ml HYPERTHYROID 0.34-5.60 UIU/ml EUTHYROID >5.60 UIU/ml HYPOTHYROID Performed By: #### B MP, CRP #### [facility] [address] [place] [address] Dr. Meron Gentile URIC ACID SERUMon 09-25-2021 Urate [Mass/Vol] 5.6 mg/dL Normal 3.5-7.2 [facility] Comment on above: Performed By: #### B MP, CRP #### [facility] [address] [place] [address] Dr. Meron Gentile US CAROTID ART BILon 022 US CAROTID ART SEA EXAMINATION: US CAROTID ART SEA HISTORY: Bilateral carotid artery occlusion COMPARISON: No relevant comparison available. TECHNIQUE: Duplex Doppler ultrasound analysis of carotid and vertebral arteries. . Bilateral carotid arterial duplex examination was performed using B-mode, color flow and spectral analysis. Carotid stenosis is reported according to validated velocity parameters, similar to NASCET criteria. FINDINGS: RIGHT CAROTID ARTERY: No visible stenosis or significant plaque. RIGHT VERTEBRAL: Antegrade flow. Subclavian: PSV: 126.0 cm/s EDV: 0.0 cm/s CCA: Prox: PSV: 84.9 cm/s EDV: 21.5 cm/s Mid: PSV: 84.9 cm/s EDV: 20.2 cm/s Distal: PSV: 68.0 cm/s EDV: 22.8 cm/s BULB: PSV: 71.9 cm/s EDV: 21.5 cm/s ICA: Prox: PSV: 53.8 cm/s EDV: 28.9 cm/s Mid: PSV: 84.9 cm/s EDV: 38.3 cm/s Distal: PSV: 51.5 cm/s EDV: 23.0 cm/s ECA: PSV: 75.4 cm/s EDV: 18.2 cm/s VERTEBRAL: PSV: 32.2 cm/s EDV: 13.4 cm/s ICA/CCA ratio: PSV: 1.2 EDV: 1.7 LEFT CAROTID ARTERY: No visible stenosis or significant plaque. LEFT VERTEBRAL: Antegrade flow. Subclavian: PSV: 164.7 cm/s EDV: 0.0 cm/s CCA: Prox: PSV: 114.7 cm/s EDV: 40.9 cm/s Mid: PSV: 103.0 cm/s EDV: 31.8 cm/s Distal: PSV: 96.5 cm/s EDV: 34.4 cm/s BULB: PSV: 78.4 cm/s EDV: 22.8 cm/s ICA: Prox: PSV: 58.1 cm/s EDV: 25.8 cm/s Mid: PSV: 82.3 cm/s EDV: 31.8 cm/s Distal: PSV: 46.8 cm/s EDV: 23.2 cm/s ECA: PSV: 77.1 cm/s EDV: 13.7 cm/s VERTEBRAL: PSV: 73.2 cm/s EDV: 28.0 cm/s ICA/CCA ratio: PSV: 0.8 EDV: 1.0 IMPRESSION: 1. 0-49% flow stenosis within the right and left carotid arteries. 2. Minimal atherosclerotic disease. Electronically authenticated by: MIRIAM DIAZ Date: 2021-09-25 10:43 Normal [facility] XR HUMERUS LT MIN 2Von 09-14 XR HUMERUS LT MIN 2V EXAM: XR HUMERUS LT MIN 2V HISTORY: Pain COMPARISON: None. TECHNIQUE: 2 views of the left humerus FINDINGS: No acute fracture seen. The soft tissues appear unremarkable. IMPRESSION: No acute fracture of the left humerus Electronically authenticated by: DOMINIC ROMERO Date: 2021-09-14 20:27 Normal [facility] Initial Visit (Neurosurgery) on 01-20-2018 Initial Visit (Neurosurgery) No report was sent Normal [facility] ED Provider Noteon 7 HIM IP Note OR Felt Hat Pouncing Operator Hand Normal [facility] Vital Signs Date Time Vital Sign Value Performing Clinician Facility 04-22-2023 21:28-0500 Body temperature 97.52 [degF] Kaylinn Dokken [facility] 04-22-2023 21:28-0500 Diastolic blood pressure 70 mm[Hg] Kaylinn Dokken [facility] 04-22-2023 21:28-0500 Heart rate 100 /min Kaylinn Dokken [facility] 04-22-2023 21:28-0500 Respiratory rate 18 /min Kaylinn Dokken [facility] 04-22-2023 21:28-0500 SaO2% (BldA) [Mass fraction] 99 % Kaylinn Dokken [facility] 04-22-2023 21:28-0500 Systolic blood pressure 133 mm[Hg] Kaylinn Dokken [facility] 03-04-2023 10:09-0400 Blood Pressure Location Nahed Lue [facility] 03-04-2023 10:09-0400 Diastolic blood pressure 82 mm[Hg] Nahed Lue [facility] 03-04-2023 10:09-0400 Heart rate 78 /min Nahed Lue [facility] 03-04-2023 10:09-0400 Respiratory rate 16 /min Nahed Lue [facility] 03-04-2023 10:09-0400 Systolic blood pressure 124 mm[Hg] Nahed Doran [facility] 12-16-2022 14:39-0400 Body height 177.8 cm Lino Mendiola MD Work Phone: [facility] 12-16-2022 14:39-0400 Body weight 95.25 kg Lino Mendiola MD Work Phone: [facility] 12-16-2022 14:39-0400 Diastolic blood pressure 86 mm[Hg] Lino Mendiola MD Work Phone: [facility] 12-16-2022 14:39-0400 Heart rate 83 /min Lino Mendiola MD Work Phone: [facility] 12-16-2022 14:39-0400 SaO2% (BldA) [Mass fraction] 98 % Lino Mendiola MD Work Phone: [facility] 12-16-2022 14:39-0400 Systolic blood pressure 144 mm[Hg] Lino Mendiola MD Work Phone: [facility] 10-29-2022 22:34-0400 Body height 177.8 cm MD Erlinda Nunez Work Phone: [facility] 10-29-2022 22:34-0400 Body temperature 98.2 [degF] MD Erlinda Nunez Work Phone: [facility] 10-29-2022 22:34-0400 Body weight 100.85 kg MD Erlinda Nunez Work Phone: [facility] 10-29-2022 22:34-0400 Diastolic blood pressure 86 mm[Hg] MD Erlinda Nunez Work Phone: [facility] 10-29-2022 22:34-0400 Heart rate 98 /min MD Erlinda Nunez Work Phone: [facility] 10-29-2022 22:34-0400 Respiratory rate 14 /min MD Erlinda Nunez Work Phone: [facility] 10-29-2022 22:34-0400 SaO2% (BldA) [Mass fraction] 100 % MD Erlinda Nunez Work Phone: [facility] 10-29-2022 22:34-0400 Systolic blood pressure 150 mm[Hg] MD Erlinda Nunez Work Phone: [facility] 09-29-2022 13:10-0400 Blood Pressure Location Scott Nassar [facility] 09-29-2022 13:10-0400 Body temperature 98.06 [degF] Scott Nassar [facility] 09-29-2022 13:10-0400 Diastolic blood pressure 88 mm[Hg] Scott Nassar [facility] 09-29-2022 13:10-0400 Heart rate 82 /min Scott Nassar [facility] 09-29-2022 13:10-0400 Mean blood pressure 106 mm[Hg] Scott Nassar [facility] 09-29-2022 13:10-0400 Respiratory rate 16 /min Scott Nassar [facility] 09-29-2022 13:10-0400 SaO2% (BldA) [Mass fraction] 98 % Scott Nassar [facility] 09-29-2022 13:10-0400 Systolic blood pressure 142 mm[Hg] Scott Nassar [facility] 09-29-2022 12:00-0400 Body temperature 97.7 [degF] Scott Nassar [facility] 09-29-2022 12:00-0400 Diastolic blood pressure 84 mm[Hg] Scott Nassar [facility] 09-29-2022 12:00-0400 Heart rate 80 /min Scott Maday [facility] 09-29-2022 12:00-0400 SaO2% (BldA) [Mass fraction] 95 % Scott Maday [facility] 09-29-2022 12:00-0400 Systolic blood pressure 134 mm[Hg] Scott Maday [facility] 09-29-2022 11:51-0400 Body temperature 97.52 [degF] Scott Maday [facility] 09-29-2022 11:51-0400 Diastolic blood pressure 111 mm[Hg] Scott Maday [facility] 09-29-2022 11:51-0400 Heart rate 83 /min Scott Maday [facility] 09-29-2022 11:51-0400 Mean blood pressure 117 mm[Hg] Scott Maday [facility] 09-29-2022 11:51-0400 Respiratory rate 17 /min Scott Maday [facility] 09-29-2022 11:51-0400 SaO2% (BldA) [Mass fraction] 94 % Scott Maday [facility] 09-29-2022 11:51-0400 Systolic blood pressure 129 mm[Hg] Scott Maday [facility] 09-29-2022 11:40-0400 Mean blood pressure 91 mm[Hg] Scott Nassar [facility] 09-29-2022 11:40-0400 Respiratory rate 18 /min Scott Nassar [facility] 09-29-2022 11:35-0400 Respiratory rate 16 /min Scott Nassar [facility] 09-29-2022 11:26-0400 Body temperature 96.98 [degF] Scott Nassar [facility] 09-29-2022 08:31-0400 Blood Pressure Location Scott Nassar [facility] 09-29-2022 08:30-0400 Body temperature 97.52 [degF] Scott Nassar [facility] 09-29-2022 08:30-0400 Heart rate 96 /min Scott Maday [facility] 09-29-2022 08:30-0400 Respiratory rate 18 /min Scott Maday [facility] 09-19-2022 13:12-0400 Diastolic blood pressure 86 mm[Hg] Scott Maday [facility] 09-19-2022 13:12-0400 Heart rate 80 /min Scott Maday [facility] 09-19-2022 13:12-0400 Mean blood pressure 100 mm[Hg] Scott Maday [facility] 09-19-2022 13:12-0400 Systolic blood pressure 127 mm[Hg] Scott Maday [facility] 09-19-2022 13:12-0400 Blood Pressure Location Scott Maday [facility] 09-19-2022 13:11-0400 Heart rate 82 /min Scott Maday [facility] 09-19-2022 13:11-0400 SaO2% (BldA) [Mass fraction] 96 % Scott Maday [facility] 09-19-2022 13:11-0400 Respiratory rate 16 /min Scott Maday [facility] 09-19-2022 13:10-0400 Body temperature 98.24 [degF] Scott Maday [facility] 09-19-2022 13:10-0400 Diastolic blood pressure 88 mm[Hg] Scott Nassar [facility] 09-19-2022 13:10-0400 Mean blood pressure 100 mm[Hg] Scott Nassar [facility] 09-19-2022 13:10-0400 Systolic blood pressure 125 mm[Hg] Scott Nassar [facility] 09-19-2022 13:10-0400 Blood Pressure Location Scott Nassar [facility] 01-07-2022 12:47-0400 Body height 180.3 cm Jose Angel Emery APRN.GUT SNATCHER Work Phone: [facility] 01-07-2022 12:47-0400 Body weight 98.7 kg Jose Angel Emery APRN.GUT SNATCHER Work Phone: [facility] 01-07-2022 12:47-0400 Diastolic blood pressure 77 mm[Hg] Jose Angel Emery APRN.GUT SNATCHER Work Phone: [facility] 01-07-2022 12:47-0400 Heart rate 86 /min Jose Angel Emery APRN.GUT SNATCHER Work Phone: [facility] 01-07-2022 12:47-0400 Respiratory rate 19 /min Jose Angel Emery APRN.GUT SNATCHER Work Phone: [facility] 01-07-2022 12:47-0400 SaO2% (BldA) [Mass fraction] 98 % Jose Angel Emery APRN.GUT SNATCHER Work Phone: [facility] 01-07-2022 12:47-0400 Systolic blood pressure 137 mm[Hg] Jose Angel Emery APRN.GUT SNATCHER Work Phone: [facility] 08-20-2021 14:15-0400 Body height 180.3 cm Lino Mendiola MD Work Phone: [facility] 08-20-2021 14:15-0400 Body weight 98.88 kg Lino Mendiola MD Work Phone: [facility] 08-20-2021 14:15-0400 Diastolic blood pressure 87 mm[Hg] Lino Mendiola MD Work Phone: [facility] 08-20-2021 14:15-0400 Heart rate 104 /min Lino Mendiola MD Work Phone: [facility] 08-20-2021 14:15-0400 Respiratory rate 19 /min Lino Mendiola MD Work Phone: [facility] 08-20-2021 14:15-0400 SaO2% (BldA) [Mass fraction] 97 % Lino Mendiola MD Work Phone: [facility] 08-20-2021 14:15-0400 Systolic blood pressure 130 mm[Hg] Lino Mendiola MD Work Phone: [facility] Encounters Encounter Date Encounter Type Care Provider Facility Start: 06-19-2023 ambulatory Nahed M. Lue Facility:[facility] Start: 05-29-2023 ambulatory Nahed M. Lue Facility:[facility] Start: 05-19-2023 ambulatory ERLINDA M HOY Facility: [facility] Start: 05-14-2023 ambulatory ERLINDA M HOY Facility: [facility] Start: 05-13-2023 ambulatory ERLINDA M HOY Facility: [facility] Start: 05-12-2023 ambulatory MICHAEL Jay acility:[facility] Start: 05-08-2023 End: 05-09-2023 ambulatory ERLINDA M HOY Facility:[facility] Start: 05-08-2023 End: 05-08-2023 ambulatory ERLINDA M HOY Facility:[facility] Start: 05-08-2023 End: 05-09-2023 ambulatory ERLINDA M HOY Facility:[facility] Start: 04-27-2023 ambulatory MICHAEL Jay acility:[facility] Start: 04-24-2023 End: 04-24-2023 ambulatory PAOLA MICHEL Not Available Start: 04-22-2023 End: 04-23-2023 Emergency department patient visit Issa Levy Facility:[facility] Start: 04-22-2023 End: 04-22-2023 Emergency department patient visit Issa Levy [facility] Start: 04-17-2023 End: 04-17-2023 ambulatory ERLINDA NUNEZ Facility:[facility] Start: 04-10-2023 End: 04-11-2023 ambulatory LINO MENDIOLA Facility:[facility] Start: 04-07-2023 Telephone encounter Lewis harding [facility] Work Phone: Psychiatry Comment on above: Patient Update Start: 03-26-2023 Refill Lino Mendiola MD Work Phone: Neurology Comment on above: Refill Request Start: 03-06-2023 End: 03-06-2023 ambulatory ERLINDA NUNEZ Facility:[facility] Start: 03-04-2023 End: 03-05-2023 ambulatory Nahed M. Lue Facility:[facility] Start: 03-04-2023 End: 03-05-2023 ambulatory Nahed M. Lue Facility:[facility] Start: 03-04-2023 End: 03-04-2023 Lab Drop off Nahed M. Janethe [facility] Start: 03-04-2023 End: 03-04-2023 Patient encounter procedure Nahed M. Janethe [facility] Start: 02-27-2023 End: 02-27-2023 ambulatory Billie Alonso MD Work Phone: Neurology Comment on above: Chronic migraine wit hout aura without status migrainosus, not intractable (Primary Dx) Start: 02-27-2023 End: 02-27-2023 Telemedicine consultation with patient Billie Alonso MD Work Phone: [facility] Start: 02-20-2023 End: 02-20-2023 ambulatory ERLINDA NUNEZ Facility:[facility] Start: 01-29-2023 End: 01-29-2023 ambulatory Billie Alonso MD Work Phone: Neurology Comment on above: Chronic migraine wit hout aura without status migrainosus, not intractable (Primary Dx) Start: 01-29-2023 End: 01-29-2023 Telemedicine consultation with patient Billie Alonso MD Work Phone: [facility] Start: 01-26-2023 End: 01-26-2023 ambulatory ERLINDA NUNEZ Facility:[facility] Start: 01-01-2023 End: 01-01-2023 Emergency department patient visit Erlinda Nunez Facility:[facility] Start: 12-16-2022 End: 12-17-2022 ambulatory LINO MENDIOLA Facility:[facility] Start: 12-16-2022 Telephone encounter Lino voss MD Work Phone: Neurology Comment on above: Medication Concern ( Indomethacin) Start: 12-16-2022 End: 12-16-2022 Patient encounter procedure Ervin Grant PhD Work Phone: Neurology Comment on above: Bipolar II disorder (HCC) (Primary Dx) Migraine without aur a, intractable, with status migrainosus (Primary Dx); Partial epilepsy with impairment of consciousness, intractable (HCC) Start: 12-12-2022 Refill Lizeth PICKARDNBradleyGUT SNATCHER Work Phone: Neurology Start: 12-11-2022 Refill Billie causey MD Work Phone: Neurology Comment on above: Refill Request medication concern Start: 11-20-2022 ambulatory Lino Mendiola MD Work Phone: Neurology Comment on above: mental health Start: 11-20-2022 Telephone encounter Billie gandara MD Work Phone: Neurology Start: 10-30-2022 End: 10-30-2022 Emergency department patient visit Davis M Clarke Facility:[facility] Start: 10-29-2022 End: 10-29-2022 Emergency department patient visit MD Erlinda Nunez Work Phone: [facility] Work Phone: Start: 10-27-2022 End: 10-28-2022 ambulatory LINO MENDIOLA Facility:[facility] Start: 09-29-2022 End: 09-29-2022 ambulatory Scott Nassar Facility:[facility] Start: 09-29-2022 End: 09-29-2022 Admission to same day surgery center Scott Nassar [facility] Start: 09-21-2022 End: 09-22-2022 Emergency department patient visit Virgil SBradley Dozier Facility:[facility] Start: 09-19-2022 ambulatory Facility:1 [id number] Start: 09-19-2022 End: 09-20-2022 ambulatory Scott Nassar Facility:[facility] Start: 09-19-2022 End: 09-19-2022 Patient encounter procedure Scott Nassar [facility] Start: 09-17-2022 Telephone encounter Lino voss MD Work Phone: Neurology Comment on above: Letter (Surgery colton santiago) Start: 09-02-2022 End: 09-03-2022 ambulatory ERLINDA NUNEZ Facility:[facility] Start: 09-02-2022 End: 09-03-2022 ambulatory NADIRA PRUDY Facility:[facility] Start: 08-28-2022 ambulatory Lino Mendiola MD Work Phone: Neurology Comment on above: VNS Start: 08-22-2022 End: 08-23-2022 ambulatory MELLY NEWTON Facility:[facility] Start: 08-12-2022 End: 08-12-2022 ambulatory BILLIE ALONSO Facility:[facility] Start: 07-31-2022 Telephone encounter Lino voss MD Work Phone: Neurology Comment on above: Opened In Error (//) Other (Patient needs to have MRI of knee) Start: 07-28-2022 End: 07-29-[address] ERLINDA NUNEZ . Facility: Start: 07-15-2022 Refill Lino Mendiola MD Work Phone: Neurology Comment on above: Refill Request Start: 07-09-2022 Telephone encounter Lino voss MD Work Phone: Neurology Comment on above: Other (headaches) Start: 04-28-2022 End: 04-28-2022 Patient encounter procedure Horace Ervin PA-C Work Phone: Neurosurgery Comment on above: 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 (Primary Dx); Tenderness of neck Start: 02-17-2022 Refill Lino Mendiola MD Work Phone: Neurology Comment on above: Refill Request Start: 02-15-2022 Refill Nadira Olivera Work Phone: Neurology Comment on above: Refill Request Start: 02-13-2022 Telephone encounter Michael Cordoba RN Neurology Comment on above: Patient Question Start: 01-12-2022 End: 01-13-[address] ERLINDA NUNEZ . Facility:[facility] Start: 01-07-2022 End: 01-07-2022 Patient encounter procedure Jose Angel Emery APRN.CNP Work Phone: Neurosurgery Comment on above: 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 (Primary Dx) Start: 01-07-2022 End: 01-07-2022 Subsequent hospital visit by physician Xr Chest Main J1 Work Phone: Radiology Comment on above: 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 [Z96.89] Start: 01-06-2022 ambulatory Kiko ghosh MD Work Phone: Neurosurgery Comment on above: Bishnu Start: 01-06-2022 Patient encounter procedure Kiko Awad MD Work Phone: Neurosurgery Comment on above: Appointment Start: 01-06-2022 Telephone encounter Kiko Awad MD Work Phone: Neurology Comment on above: Patient Update (Vns issue) Start: 01-05-2022 End: 01-06-[address] ERLINDA NUNEZ . Facility:[facility] Start: 12-25-[address] ERLINDA NUNEZ . Facili ty:[facility] Start: 11-02-[address] ERLINDA NUNEZ . Facili ty:[facility] Start: 10-04-2021 End: 10-04-[address] [facility] Lesvia Viveros PSYD Work Phone: Neurology Comment on above: Bipolar II disorder (HCC) (Primary Dx) Start: 09-27-2021 Telephone encounter Lesvia palomares PSYD Work Phone: Neurology Comment on above: Appointment Start: 09-25-2021 End: 09-26-[address] ERLINDA NUNEZ . Facility:[facility] Start: 09-20-2021 Telephone encounter Lesvia palomares PSYD Work Phone: Neurology Comment on above: Appointment Start: 09-14-2021 End: 09-14-[address] ERLINDA NUNEZ . Facility:[facility] Start: 09-13-2021 End: 09-13-[address] 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 Comment on above: Performed By: #### C MADM, BMP #### [facility] [address] [place] [address] Dr. Meron Gentile Start: 06-20-2020 Lipid 1996 panel - S jaspreet or Plasma Billie Alonso MD Work Phone: Start: 11-25-2018 Cystoscope, device (physical object) Nahed Doran Start: 11-18-2016 [facility] CESAR ARNOLD Start: 01-04-2016 Laparoscopic appendectomy Scott Nassar Start: 05-18-2000 Vagal nerve stimulat or (physical object) Scott Nassar Comment on above: pt states he has had the implant replaced 19 times with last in 2020, and the wires were also replaced in 2020 History of tonsillectomy Luiz zeustucker Nassar Plan of Treatment Date Care Activity Detail Author Start: 06-20-2025 Lipid 1996 panel - S jaspreet or Plasma Lipid Screening [facility] Start: 06-20-2025 LIPID SCREEN LIPID SCREEN [facility] Start: 01-16-2023 Covid-19 Vaccine ( season) Covid-19 Vaccine ( season) [facility] Start: 01-16-2023 [facility] Start: 10-29-2022 Radiologic examinati on of knee XR knee LT 4V* [facility] Start: 01-16-2022 Influenza [facility] Start: 08-09-2021 COVID-19 VACCINE (3 - Booster for Pfizer series) COVID-19 VACCINE (3 - Booster for Pfizer series) [facility] Start: 05-06-2021 COVID-19 VACCINE (3 - Booster for Pfizer series) COVID-19 VACCINE (3 - Booster for Pfizer series) [facility] Start: 05-06-2021 COVID-19 VACCINE (3 - Pfizer series) COVID-19 VACCINE (3 - Pfizer series) [facility] Start: 2001 Urine microalbumin profile [facility] Start: 1982 HEPATITIS B (1 of 3 - 3-dose series) HEPATITIS B (1 of 3 - 3-dose series) [facility] Start: 1982 Hepatitis B Vaccine (1 of 3 - 3-dose series) Hepatitis B Vaccine (1 of 3 - 3-dose series) [facility] Patient referral [facility] Immunizations Immunization Date Immunization Notes Care Provider Fa cility 03-11-2021 SARS-CoV-2 (COVID-19 ) mRNA BNT-162b2 vax Nahed Lue [facility] Comment on above: Result Comment: 2022: TPVALL 02-18-2021 SARS-CoV-2 (COVID-19 ) mRNA [id number] vax Nahed Lue [facility] Comment on above: Result Comment: 2022: TPVALL Payers Date Payer Category Payer Self-pay [id number] 2017 Medicaid MEDICAID [facility] MEDICAID [id number] 2017-Present [phone] [address] [place] [address] Medicaid [id number] 2017 Medicaid MEDICAID [facility] MEDICAID [id number] 2017-Present [phone] [address] [place] [address] Medicaid [id number] 2014 Medicare [id number] 2006 Medicare MEDICARE MEDICAR E A AND B [id number] 2006-Present [phone] [place] [address] Medicare [id number] 2005 Medicare MEDICARE MEDICAR E A AND B [id number] 2005-Present [phone] [place] [address] Medicare [id number] 1982 Unknown [id number] 2.16840.1.986853.3.579.2.593 1982 Unknown [id number] 2.840.1.665144.3.579.2.593 1982 Unknown [id number] 2.840.1.232361.3.579.2.593 1982 Unknown [id number] 2.840.1.720532.3.579.2.593 1982 Unknown [id number] 2.840.1.209033.3.579.2.593 1982 Unknown [id number] 2.840.1.486424.3.579.2.593 1982 Unknown [id number] 2.840.1.694448.3.579.2.593 1982 Unknown [id number] 2.16.840.1.768640.3.579.2.356 1982 Unknown [id number] 2.16.840.1.921812.3.579.2.1259 1982 Unknown [id number] 2.16.840.1.386913.3.579.2.1259 1982 Unknown [id number] 2.16840.1.082236.3.579.2.727 1982 Unknown [id number] 2.16.840.1.636499.3.579.2.727 1982 Unknown [id number] 2.16.840.1.349331.3.579.2.727 1982 Unknown [id number] 2.16.840.1.718829.3.579.2.727 1982 Unknown [id number] 2.16.840.1.075195.3.579.2.727 1982 Unknown [id number] 2.16.840.1.725031.3.579.2.727 1982 Unknown [id number] 2.16.840.1.580362.3.579.2.727 1982 Unknown [id number] 2.16.840.1.290738.3.579.2.727 1959 Medicaid [id number] 1959 Medicare [id number] 1959 Self-pay [id number] Unknown [id number] 2.16.840.1.692342.3.579.2.531 Unknown [id number] 2.16.840.1.879776.3.579.2.531 Social History Date Type Detail Facility Start: 07-31-2010 End: 03-04-2023 Tobacco smoking status NHIS Never smoked tobacco [facility] Start: 07-31-2010 End: 01-02-2011 Tobacco use and exposure Smokeless tobacco non-user [facility] Start: 08-20-2021 End: 12-16-2022 Alcohol intake Current non-drinker of alcohol (finding) [facility] Start: 1980 Sex Assigned At Not on file [facility] Start: 08-19-2021 End: 01-07-2022 Exposure to SARS-CoV-2 (event) Not sure [facility] Tobacco smoking status No Smokin g Status Entered [facility] Start: 10-27-2022 End: 03-05-2023 Sex Assigned At Male [facility] Start: 1980 Sex Assigned At Male [facility] Start: 10-27-2022 End: 03-05-2023 History of Social function [facility] Adult Depression Screening Assessment 3 [facility] Medical Equipment Procedure Code Equipment Code Equipment Origin al Text Equipment Identifier Dates Generator Vns Th erapy Aspirehc Neurostimulator Epilepsy Sterile - [id number] Start: 02-04-2018 [employer] Im plant - [id number] Start: 04-01-2016 Comment on above: Description: GENERATOR VNS THERAPY ASPIR EHC NEUROSTIMULATOR EPILEPSY STERILE Lead Vns Therapy 2mm Silicone 43cm Neurostimulator 1 Pin Bipolar Model - [id number] Start: 09-20-2020 Generator Vns Th erapy Aspiresr Thk7mm Neurostimulator 14cc 1 Pin Lead - [id number] Start: 05-16-2019 Generator Vns Th erapy Aspiresr Thk7mm Neurostimulator 14cc 1 Pin Lead - [id number] Start: 06-28-2020 Generator Vns Th erapy Aspiresr Thk7mm Neurostimulator 14cc 1 Pin Lead - [id number] Start: 09-20-2020 Functional Status Date Assessment Result Facility 04-22-2023 Functional Status N/A [facility] 03-04-2023 Functional Status N/A [facility] 09-19-2022 Functional Status No [facility] Clinical Notes 04-07-2016 to 05-19-2023 Note Date & Type Note Facility 05-19-2023 Note HNO ID: [id number] Author: Afua Rae LPCC Service: Behavioral Health IOP (Intensive Outpatient Program) Author Type: Therapist Type: Progress Notes Filed: 05/19/2023 12:43 PM Note Text: Summary: DBT IOP virtual group *This service is provided virtually via [employer]clues. IOP (INTENSIVE OUTPATIENT PROGRAM) PROGRESS NOTE SERVICE DATE: 05/19/23 SERVICE TIME: 9AM-noon BEHAVIOR: Appearance: Casually dressed Attitude: Cooperative Affect: Flat Mood: Anxious and Pleasant Orientation: Oriented to person, place and time Thought:: Dichotomous, concrete Speech: Normal Eye Contact: Intermittent Describe Change Noted Throughout the Day: None noted. GROUP THERAPY: Process Therapy Start Time: 9:00 am Total Time: 50 minutes # of Patients: 5 THERAPEUTIC FOCUS: Check-In PROBLEM(S) ADDRESSED: -Mental health issues INTERVENTIONS: Review DBT skills practiced, mood symptoms, urge behaviors, self-injury / suicidal / violence behaviors that necessitate need for continued IOP therapy. Review of individualized goals to increase functioning to support discharge to more independent level of care. Reviewed patient-completed daily self-report to assess for concerns related to medications, SI, changes with sleep, appetite, energy level. RESPONSE: Appears attentive, engaged and participative. Pt reported the following: mood (0=none, 5=extreme) - depression 3, anxiety 3, anger 4, shame/guilt 3, contentment 1 cindy 1; urges (0=none, 5 = extreme) - anger-2, bottling up-4; SI/SIB - none; skills - pt did not identify; medication compliance - yes; substance use - none; sleep - 6 hours Pt's check-in focused on: finding writing and reading to be helpful ways of coping, sharing that he enjoys/finds benefit from reading poetry and using that to write out his own. He reflected upon doing this as helping him to recognize and process his thoughts and emotions. Pt shared that he does this routine prior to bed, and is aware of going to bed in a calmer state. Pt appeared open to corporate director pointing out his use of accumulating positive emotions and experiences, mindfulness to emotions and wisemind. Pt denied acting on urges yesterday, sharing that he was busy working all weekend, which prevented him from engaging in urges. Pt inquired about resources for seeking power of corporate associate attorney, and pt was directed to consider seeking out resources through his county's legal receptionist, through his counselor's office and/or to address at an upcoming group social worker appt in a few weeks. Patient Affirms Safety. Pt's diary card that was completed throughout the weekend indicated: strong to extreme sadness, strong anxiety, moderate to strong anger and shame/guilt, mild to moderate contentment, and a little to moderate cindy. Pt denied SI and SH daily and reported mild to moderate urges for lashing out and bottling emotions. Pt reported taking his medications as prescribed, denied substance use, and got between 4 - 7 hours of sleep per night. Pt most frequently used mindfulness to emotions, problem-solving, and pros AND cons skills over the weekend, as tracked on skills diary card. Patient Data IOP Daily Questionnaire IOP Daily 05/18/2023 05/18/2023 05/18/2023 Today, is your belief in your ability to use your Safety Plan in a crisis at 90%? Yes Yes Yes Today, have you wished you were or wished you could go to sleep and not wake up? No No No Today, have you actually had any thoughts of killing yourself? No No No On a scale of 1 to 10 how would you rate your mood now? 4 4 4 Process Therapy Start Time: 10:00 am Total Time: 50 minutes # of Patients: 5 THERAPEUTIC FOCUS: Opposite action to sadness AND anger PROBLEM(S) ADDRESSED: -Mental health issues INTERVENTIONS: Mindfulness practice implemented and processed. Focused on emotions of sadness and anger including mindfulness to each emotion through identifying common body sensations, thoughts and behaviors associated with each emotion. Then, discussed opposite action for sadness and anger through use of handouts, group discussion and application to individual group member's experience. RESPONSE: Appears attentive, engaged and participative. Pt was an active participant throughout the psychoeducational dialogue on opposite action to sadness and anger, sharing thoughts and personal experiences frequently. In exploring the emotion sadness, Pt verbalized ?I close off?, and related to other group members throughout the discussion. Pt acknowledged that unexpected disruptions to his ?routine? can often prompt feeling angry. In exploring the emotion anger, Pt shared resonating with ?I start sweating more.? Pt asked questions throughout the discussion for the purpose of clarifying understanding of skill appl (more content not included)... [facility] 05-14-2023 Note HNO ID: [id number] Author: Afua Rae [facility] Service: Behavioral Health IOP (Intensive Outpatient Program) Author Type: Therapist Type: Progress Notes Filed: 05/14/2023 1:37 PM Note Text: Summary: DBT IOP virtual group *This service is provided virtually via tinyclues. IOP (INTENSIVE OUTPATIENT PROGRAM) PROGRESS NOTE SERVICE DATE: 05/14/23 SERVICE TIME: 9AM-noon BEHAVIOR: Appearance: Casually dressed Attitude: Cooperative, distractible at times Affect: Restricted/blunted Mood: Depressed and Anxious Orientation: Oriented to person, place and time Thought:: [place] Speech: Normal, with frequent sharing in the context of questions about program content, skills, etc. Eye Contact: Intermittent Describe Change Noted Throughout the Day: None noted. GROUP THERAPY: Process Therapy Start Time: 9:00 am Total Time: 50 minutes # of Patients: 5 THERAPEUTIC FOCUS: Check-In PROBLEM(S) ADDRESSED: -Mental health issues INTERVENTIONS: Review DBT skills practiced, mood symptoms, urge behaviors, self-injury / suicidal / violence behaviors that necessitate need for continued IOP therapy. Review of individualized goals to increase functioning to support discharge to more independent level of care. Reviewed patient-completed daily self-report to assess for concerns related to medications, SI, changes with sleep, appetite, energy level. RESPONSE: Appears attentive, engaged and participative. Pt reported the following: mood (0=none, 5=extreme) - depression 3, anxiety 3, anger 3, shame/guilt 4, contentment 1, cindy 0; urges (0=none, 5 = extreme) - bottling emotions 2; SI/SIB - denied; skills - 2; medication compliance - yes; substance use - denied; sleep - 3 hours. Pt?s check-in centered on experiencing high shame/guilt yesterday, which triggered urges for bottling emotions and lashing out of anger. Pt reported that he explored more of the DBT skills with his individual therapist yesterday in session that he found to be helpful. Pt explored the impact of having many jobs as well as starting DBT IOP and stated that he is considering leaving some of his jobs to reduce his overall stress. Pt reported that he is going through some medication changes and is starting to use a new CPAP machine as well, which contributed to poor sleep last night. Patient Affirms Safety. Patient Data IOP Daily Questionnaire IOP Daily 05/10/2023 05/14/2023 Today, is your belief in your ability to use your Safety Plan in a crisis at 90%? Yes Yes Today, have you wished you were or wished you could go to sleep and not wake up? No - Today, have you actually had any thoughts of killing yourself? No No On a scale of 1 to 10 how would you rate your mood now? 5 5 Process Therapy Start Time: 10:00 am Total Time: 50 minutes # of Patients: 5 THERAPEUTIC FOCUS: Personal values clarification PROBLEM(S) ADDRESSED: -Mental health issues INTERVENTIONS: Mindfulness practice implemented and processed. Utilized discussion, presentation, and emotion regulation handouts on values to facilitate mindful awareness to personal values, values clarification and assistance in translating values to goals and actions. RESPONSE: Appears attentive, engaged and participative. Pt was an active participant throughout the psychoeducational dialogue on personal values, sharing thoughts and personal experiences frequently. Pt asked questions throughout the discussion for the purpose of clarifying understanding of skill application to their experiences. Pt disclosed his experience with epilepsy sharing that he has a goal of managing epilepsy on his daily life, with inquiring about the difference between a value and a goal in this area of his life, with corporate director highlighting that pt appears to value his physical health and helping others (with pt noting that he is a member of epilepsy support communities). 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 Pt identified a top value of trust, with goals related to addressing trauma history through seeking mental health therapy, noting that this trauma history interferes with his ability to trust others in relationships. Process Therapy Start Time: 11:00 am Total Time: 50 minutes # of Patients: 5 THERAPEUTIC FOCUS: Coping Skills PROBLEM(S) ADDRESSED: -Mental health issues INTERVENTIONS: Facilitated discussion regarding various group member concerns, with focus on ride the wave and weekend planning. Provided feedback, supportive, reflective listening and facilitated connections between group members as they explored current stressors/symptoms through the context of program information. Assessed safety prior (more content not included)... [facility] 05-13-2023 Note HNO ID: [id number] Author: Jazmin Skelton LPCC Service: Behavioral Health IOP (Intensive Outpatient Program) Author Type: Counselor Type: Progress Notes Filed: 05/13/2023 1:20 PM Note Text: Summary: DBT IOP *This service is provided virtually via [employer]. IOP (INTENSIVE OUTPATIENT PROGRAM) PROGRESS NOTE SERVICE DATE: 05/13/23 SERVICE TIME: 9AM-noon BEHAVIOR: Appearance: Well Groomed Attitude: Cooperative Affect: Appropriate and Anxious/tense Mood: Anxious and Pleasant Orientation: Oriented to person, place and time Thought:: [place] Speech: Normal Eye Contact: Good Describe Change Noted Throughout the Day: None noted GROUP THERAPY: Process Therapy Start Time: 9:00 am Total Time: 50 minutes # of Patients: 6 THERAPEUTIC FOCUS: Check-In PROBLEM(S) ADDRESSED: -Mental health issues INTERVENTIONS: Review DBT skills practiced, mood symptoms, urge behaviors, self-injury / suicidal / violence behaviors that necessitate need for continued IOP therapy. Review of individualized goals to increase functioning to support discharge to more independent level of care. Reviewed patient-completed daily self-report to assess for concerns related to medications, SI, changes with sleep, appetite, energy level. Reviewed patient's treatment plan/goals to assess for progress toward goals, goals to continue working on and additional treatment needs. RESPONSE: Appears attentive, engaged and participative. Pt was introduced to the group, oriented to the diary card, zoom tools and check-in process. He denied initial questions. Patient Data IOP Daily Questionnaire IOP Daily 05/10/2023 Today, is your belief in your ability to use your Safety Plan in a crisis at 90%? Yes Today, have you wished you were or wished you could go to sleep and not wake up? No Today, have you actually had any thoughts of killing yourself? No On a scale of 1 to 10 how would you rate your mood now? 5 Process Therapy Start Time: 10:00 am Total Time: 50 minutes # of Patients: 6 THERAPEUTIC FOCUS: Opposite action to fear PROBLEM(S) ADDRESSED: -Mental health issues INTERVENTIONS: Mindfulness practice implemented and processed. Discussion and education around opposite action (OA) to fear. Collaboratively explored these concepts as a group with general examples and in connection to members' individualized experiences. RESPONSE: Appears attentive, engaged and participative. Pt was an active participant throughout the psychoeducational dialogue on OA to fear, sharing thoughts and personal experiences frequently. Pt reflected on thought patterns of when he is experiencing the emotion fear, which centers on being fearful of making a mistake/perceived mistake while in front of others. Pt asked questions throughout the discussion for the purpose of clarifying understanding of skill application to their experiences. Pt stated that he could begin to use OA to fear and anxiety at work by approaching tasks that force him to speak in front of others, which is something he typically avoids. Process Therapy Start Time: 11:00 am Total Time: 50 minutes # of Patients: 6 THERAPEUTIC FOCUS: Coping Skills PROBLEM(S) ADDRESSED: -Mental health issues INTERVENTIONS: Facilitated discussion regarding various group member concerns, with focus on ACCEPTS and OA to fear. Provided feedback, supportive, reflective listening and facilitated connections between group members as they explored current stressors/symptoms through the context of program information. Assessed safety prior to patients leaving for day. RESPONSE: Pt appeared attentive, engaged and participative throughout psychoeducational dialogue on the distress tolerance skill of ACCEPTS, with inquiring about the difference between distracting skillfulness and bottling up emotions. Pt was observed to ask a lot of questions for the purpose of clarifying understanding of the skill and applying to his personalized experiences. Pt's self-care goal is: attend a counseling appt later today. Patient Affirms Safety. Patient reaffirmed Safety Plan and can stay safe from harm. PLAN: Continue IOP and current treatment plan. Pt confirmed attendance in IOP tomorrow. Co-facilitated between: Jazmin Skelton [facility] AND Afua Rae [facility] 05-13-2023 Note O ID: [id number] Author: Jazmin Skelton [facility] Service: Behavioral Health IOP (Intensive Outpatient Program) Author Type: Counselor Type: Plan of Care Filed: 05/12/2023 2:39 PM Note Text: Summary: Treatment Plan for DBT IOP MASTER TREATMENT PLAN SERVICE DATE: 05/12/23 ADMISSION DATE: 05/13/23 SERVICE TIME: 9am-Noon ASSESSMENT Diagnosis: F31.63 Bipolar Disorder, current episode mixed, severe w/o psychotic features F41.9 Anxiety Disorder, unspecified F43.12 PTSD Summary: (From HANDP completed by Josi Queen PA-C on 05/12/23)This is a 42 year old Single (never ) White male with a past history of Bipolar Disorder, Major Depressive Disorder, Anxiety Disorder, ADHD and PTSD, who presents for admission to the DBT IOP program. Pt endorses worsening bipolar symptoms with increase in suicidal thoughts in the past several months, including one suicidal attempt via Seroquel OD in Mar 2023, reportedly without hospitalization. Pt depressive symptoms include depressed moods, sleep disturbances, decreased interests, lack of motivation, decreased energy, decreased concentration, decreased appetite with weight loss, crying spells and feelings of hopelessness. Pt endorsed manic episode several weeks ago, and symptoms included decreased need for sleep, talkativeness, racing thoughts, distractible, elevated and expansive moods, and irritable moods. Pt endorses continued irritability, impatience and anger but experienced some recent improvement with Latuda. Pt endorses anxious symptoms, including excessive worry and difficulty controlling that worry, restlessness, fatigue, irritability, trouble concentrating and sleep disturbance. Pt denied A/V hallucinations, paranoia, and illicit drug use. At this time, pt also denied current passive or active suicidal thoughts, intent or plan. Last suicidal thoughts occurred at end of Mar 2023. Pt has significant history of suicidal attempts, with four in the last 7 years, three of which led to hospitalization. Pt does have support of his sister, his outpatient providers and the IOP staff. At this time, pt will be admitted into the DBT IOP program. Patient Goals for Treatment: Be able to process my emotions and thoughts better. Get my anger under control. Better coping techniques. Not let things build up. Urges: suicidal thoughts, bottling emotions, lashing out Intake: 04/27/23 PHQ9=18 GAD7= 14 SARAH= 41 Estimated LOS: 4 days per week for six weeks Trauma is relevant to the treatment plan. Pt. Will focus on learning and applying DBT skills for pre-trauma symptom stabilization in the present moment focusing on distress tolerance, emotion regulation and interpersonal effectiveness. This will target a reduction in the negative impact of past trauma's on present moment functioning. Problem: Depression and Anxiety resulting in suicidal ideation As Evidenced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 turn it off and back on. Scheduling number provided. He will have ortho office fax MRI orders to the clinic. Roula Velasquez RN * Telephone Encounter - Francheska Sherman - 07/31/2022 2:51 PM EDT General call : Full name of person calling: Bishnu Carmen Coles Relationship to patient: self Phone # : [phone] (home) Reason for call: Patient's orthopaedic specialist, Dr. López, in [place] recommends an MRI of knee. This will require VNS to be turned off. Please advise how to accomplish this at [facility]. Patient of Dr. Mendiola documented in this encounterGalion [facility]02-28-[facility]23 Miscellaneous Notes* Telephone Encounter - Kari Becker PA-C - 07/15/2022 3:06 PM EST The following approved medication requests have been transmitted electronically. Requested Prescriptions Signed Prescriptions Disp Refills clonazePAM (KLONOPIN) 2 mg tablet 90 tablet 5 Sig: Take 1 tablet by mouth three times daily for 180 days. Authorizing Provider: KARI BECKER lacosamide (VIMPAT) 100 mg tab 180 tablet 1 Sig: Take 1 tablet by mouth twice daily for 180 days. Authorizing Provider: KARI BECKER PA-C * Telephone Encounter - Stephany BALDERAS - 07/15/2022 2:12 PM EST Prescription Refill: Requested by: patient Please Call in Caller Contact Number: [phone] (home) Pharmacy Name: [facility] Pharmacy Number: [id number] Generic/ brand: generic 30 or 90 day supply requested: 90 Last appointment: 04/28/2022 Next Appointment: 10/27/[address] mendiola documented in this encounterGalion [facility] Hospital02-28-2023 Miscellaneous Notes* Telephone Encounter - Mayco Robles RN - 07/15/2022 10:11 AM EST Relayed message to patient and provided number for NI scheduling so he can schedule appointment with the [facility]. Mayco Robles RN * Telephone Encounter - Kari Becker PA-C - 07/15/2022 7:40 AM EST It may all be related to the untreated headache. I placed a consult to the headache clinic - we recommend to see them for recs. They likely can do a virtual visit, but if he decides to be seen in person at , we can also get aEEG long to evaluate (although seizures less likely the cause). Thanks, Kari Becker PA-C * Telephone Encounter - Michaelle Jacobs RN - 07/14/2022 4:09 PM EST Spoke to Kaiden. He reports the past month he has had headaches that start on the left side of his head, down to his neck and eventually across his entire head. He has not had a headache provider since the previous CC provider retired many years ago. His family also tells him they notice he has had trouble finding the right word to say intermittently, some time while he is having a headache and other times with no headache. He notices he gets aggravated when he can not say the right word. He has not had any auras or seizures. If the word finding is related to seizures, he has never experienced this before. He has had some added stress related to getting his social security straightened out. He has not had follow up with psychiatry and psychology as providers have left or have not been available and he has not been contacted to reschedule with anyone. Update forwarded for review. Reynaldo Braswell RN * Telephone Encounter - Roula Velasquez RN - 07/09/2022 1:56 PM EST VNS FU 04/[address] Mendiola 08/2021- IMPRESSION: Bishnu Coles is a 40 year old right handed male with a history of medically intractable left temporal lobe epilepsy since age 5 who presents for follow up. He had a VNS replacement in June and then again in September 2020 (Wiring was replaced). He had some tingling in his left arm and it had to be slowly turned up. He last GTC seizure was 2012. He has not had any seizures since our last visit. He has an infection in his ear that was causing motion sickness and sweating. He was treated with antibiotics and it resolved. He has been having trouble with his depression. - Continue Vimpat at 100mg BID - Continue Klonopin 2mg TID Called Bishnu but did not receive answer. Left VM to return ajckie to the office. Roula Velasquez RN * Telephone Encounter - Stephany BALDERAS - 07/09/2022 10:45 AM EST General call : Full name of person calling: Bishnu Coles Relationship to patient: self Phone # : [phone] Reason for call: having real bad headaches, and having speech problems Patient of Dr. mendiola documented in this encounterGalion [facility] Hospital12-12-2022 History of Present illness Narrative* Horace Ervin PA-C - 04/28/2022 12:14 PM EST [facility] NEUROSURGERY CHIEF COMPLAINT: follow up HISTORY OF PRESENT ILLNESS: Bishnu Coles is a 41 year old right handed male who is diagnosed with medically intractable epilepsy s/p VNS device (last replaced by Dr. Awad in September 2020) who presents today due to complaints of irritation and swelling related to the VNS. He was last seen by Jose Angel Emery CNP in December 2021 for complaints of irritation around the generator pack and tenderness at the area. Imaging and interrogation was performed and did not indicate a malfunction of the device at the time. Today, Mr. Coles presents to clinic with complaints of tenderness to palpation and swelling/ puffiness over the leads in his left anterior neck. He reports his lanyard repeatedly brushes the area causing pain. He also feels electric impulses fire from the device when he enters and exits stores that have security machines. He has not had any seizures and is tolerating his ASMs. He was also seen by Piedad Mckoy CNP today as well who asked for me to speak with the patient regarding the VNS andthese continued issues he is having with the device. ? Handedness: Right Occupation: works at [employer] Mood: pleasant ? CURRENT OUTPATIENT MEDICATIONS: Current Outpatient Medications Medication Sig benzocaine-menthol (CEPACOL) 15-3.6 mg lozg Use 1 Lozenge as instructed every 2 hours as needed. nadolol (CORGARD) 80 mg tablet Take 1 tablet by mouth once daily. QUEtiapine (SEROQUEL) 400 mg tablet Take 1 tablet by mouth daily at bedtime. QUEtiapine (SEROQUEL) 50 mg tablet Take 1 tablet by mouth three times daily as needed (Anxiety). sertraline (ZOLOFT) 100 mg tablet Take 3 tablets by mouth once daily. QUEtiapine (SEROQUEL) 100 mg tablet Take 1 tablet by mouth daily at bedtime. Take in addition to 300 mg tab for total of 400 mg at bedtime lacosamide (VIMPAT) 100 mg tab Take 1 tablet by mouth twice daily for 180 days. clonazePAM (KLONOPIN) 2 mg tablet Take 1 tablet by mouth three times daily for 180 days. promethazine (PHENERGAN) 25 mg tablet 1 po tid prn headache or nausea LORazepam (ATIVAN) 1 mg tablet Take 1 tablet by mouth as needed (for seizure lasting >3 minutes.Max 2 doses in 24 hours.) for up to 180 days. cyproheptadine (PERIACTIN) 4 mg tablet Take 4 mg by mouth twice daily. CPAP Change the pressure of autoBipap with EPAP 5-15 mh2o and PS 4-8cmh2O. His DME company is [employer] , [employer] mask to fit patient preference, ramp, humidification and unlimited supplies Please send us machine download in 1 month CPAP Please send us machine download in 1 month LORazepam (ATIVAN) 1 mg tablet Take 1 tablet by mouth as needed (for seizure lasting >3 minutes.Max 2 doses in 24 hours.) for up to 180 days. SUMAtriptan (IMITREX) 100 mg tablet Take 100 mg by mouth as needed for Migraine Headache (see administration instructions). Cetirizine 10 mg cap Take 1-2 tablets by mouth as needed. fluticasone (FLONASE) 50 mcg/actuation nasal spray Use 1 [place] in each nostril twice daily. albuterol HFA (PROVENTIL HFA, VENTOLIN HFA) 90 mcg/actuation inhaler Inhale 1-2 Puffs as instructedas needed for Wheezing/Shortness of Breath. No current facility-administered medications for this visit. NEUROLOGICAL EXAM: nonfocal neurological exam There is no visible swelling or redness on the anterior neck or left chest wall. Battery is superficial and palpable but there is nothing abnormal present on physical exam. IMAGING: XR neck and chest on 01/07/22 revealed VNS was grossly intact. ? ASSESSMENT: Bishnu Coles is a 41 year old right handed male who is diagnosed with medically intractable epilepsy s/p VNS device (last replaced by Dr. Awad in September 2020) who presents today due to complaints of irritation and swelling related to the VNS. He was last seen by Jose Angel Emery CNP in December 2021 for complaints of irritation around the generator pack and tenderness at the area. Imaging and interrogation was performed and did not indicate a malfunction of the device at the time. Today, Mr. Coles presents to clinic with complaints of tenderness to palpation and swelling/ puffiness over the leads in his left anterior neck that gets worse as the day progresses. He reports his lanyard repeatedly brushes the area causing pain. He also feels electric impulses fire from the device when he enters and exits stores that have security machines. He has not had any seizures and is tolerating his ASMs. He was also seen by Piedad Mckoy CNP today as well who asked for me to speak with the patient regarding the VNS and these continued issues he is having with the device. ? PLAN: VNS was interrogated by Piedad Mckoy CNP (please see her office note for more specifics) which revealed normal parameters that remain unaltered despite the patient reporting the sensation of it firing when he enters and exits stores. Reassured the patient of this finding and that security machines and everyday magnets should not have an impact on the device. He expressed understanding. Patient is reliant on his VNS and although he is having sensation issues related to the VNS, these symptoms are not bothering him enough to the point that he would like the device to be removed. He inquired why the device was reimplanted so superficially following the last surgery. I explained that this decision was likely made due to scar tissue buildup deeper in the soft tissue of the neck. Recommendhe continue to monitor his symptoms for now as the VNS is working appropriately. No need for repeatimaging at this time. All questions and concerns were answered and addressed. Patient is agreeable.He can follow up with our office on an as needed basis. ? A total of 10 minutes was spent during the visit with greater than 50% of the time spent counselingand coordinating care of the above plan, discussing the following issues: VNS device,as well as answering the patient's numerous questions. Horace Ervin PA-C April 28, 2022 10:39 AM documented in this encounterGalion [facility] Hospital10-03-2022 Miscellaneous Notes* Telephone Encounter - Kanika Bennett APRN.CNP - 02/17/2022 3:35 PM EDT The following approved medication requests have been transmitted electronically. Requested Prescriptions Refused Prescriptions Disp Refills promethazine (PHENERGAN) 25 mg tablet 90 tablet 0 Si po tid prn headache or nausea Refused By: KANIKA BENNETT Reason for Refusal: Patient should contact Prescriber first Kanika Bennett APRN.CNP * Telephone Encounter - LOUIS Bagley - 02/17/2022 10:31 AM EDT Prescription Refill: Requested by: pharmacy Please E-Scribe Caller Contact Number: Pharmacy Number and Name: [phone] [facility] 30 or 90 day supply requested: 30 Last appointment: 01/07/22 Next Appointment: 02/27/[address] Mendiola documented in this encounterGalion [facility] Hospital10-03-2022 Miscellaneous Notes* Telephone Encounter - Kanika Bennett APRN.CNP - 02/17/2022 10:25 AM EDT The following approved medication requests have been transmitted electronically. Requested Prescriptions Signed Prescriptions Disp Refills nadolol (CORGARD) 80 mg tablet 90 tablet 0 Sig: Take 1 tablet by mouth once daily. Authorizing Provider: KANIKA BENNETT APRN.CNP documented in this encounterGalion Community Hospital09-29-2022 Miscellaneous Notes* Telephone Encounter - Michael Cordoba APRN.ENZO - 02/13/2022 3:43 PM EDT Spoke to pt, and discussed sending letter through my chart for his letter request. * Telephone Encounter - Natalia Carlin - 02/13/2022 3:30 PM EDT Patient request return call regarding letter needed for employer. Thank you, Natalia documented in this encounterGalion [facility] Hospital08-23-2022 History of Present illness Narrative* Jose Angel Emery APRN.ENZO - 01/07/2022 11:30 AM EDT [facility] NEUROSURGERY FOLLOW UP CHIEF COMPLAINT: Patient presents with: Follow Up VNS Visit ? HISTORY OF PRESENT ILLNESS: Mr. Bishnu Coles is a 41 year old right handed male with PMH of anxiety, HIMA, Bipolar II (follows with Dr. Chi), migraines and left temporal lobe epilepsy (dx 2005- He did not want to pursue surgeryat that time due to concerns of memory decline and had a VNS implanted. He is now s/p multiple VNS revisions: - VNS replacement in March 2016 - VNS replacement in January of 2018 - VNS replacement in April of 2019 - VNS replacement on 06/28/2020 for low battery - VNS revision on 09/20/2020 after he felt a shocking sensation and had high lead impedance on interrogation. He has since follow up with his Epileptologist, Dr. Mendiola (LAUREN 08/20/21, VNS output increased 1.250mA -> 1.625mA, 1.75mA was not tolerated. Magnet output was increased 1.5mA -> 1.875mA). ? Today, Mr. Coles states that he has been doing well as far as seizures, stating that it has been awhile since his last seizure. Mr. Coles states that for the past month he has been feeling the sesnsation of needles where his generator pack is. He states that he has been feeling tenderness over the lead tract (gestures to the left side of his neck). It seems to get worse as the day goes on. He has also been having some left sided throat soreness. He feels some tingling that he thinks may correlate with the VNS cycle but otherwise his symptoms do not seem to exactly correlate with the VNS output cycle. He last used the magnet 2 weeks ago which made his throat hurt. Mr. Coles recalls that he was horse playing with his niece and nephew about 1 month ago (before he was having the current symptoms) during which time they were hanging off his neck. He states that he did not immediately feel or notice a problem while playing with them, but a few days later began to experience the above symptoms. 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 His boss at work has also mentioned to him that she can notice a bulge on his neck that wasn't always there. VNS Interrogation Today, 01/07/2022: [facility] VNS Seq. No.: Aspire SR [id number] VNS Serial No.: [id number] Date of Implantation: 2020 Diagnostics Output: 1.625 mA, [place] Lead Impedance 2632 Ohms, [place] Generator battery: 50% - 75% Stimulation Parameters: Current (mA): Present: 1.625 Frequency (Hz): Present: 25 Pulse width (ms): Present: 500 Signal on-time (s): Present: 30 Signal off-time (min.): Present: 0.8 AutoStim Disabled Magnet Current (mA): Present: 1.875 Magnet pulse width (ms): Present: 500 Magnet signal on-time (s): Present: 60 Duty Cycle: 44% Patient tolerated interrogation well. ? CURRENT OUTPATIENT MEDICATIONS: Current Outpatient Medications Medication Sig QUEtiapine (SEROQUEL) 50 mg tablet Take 1 tablet by mouth three times daily as needed (Anxiety). sertraline (ZOLOFT) 100 mg tablet Take 3 tablets by mouth once daily. QUEtiapine (SEROQUEL) 300 mg tablet Take 1 tablet by mouth twice daily. lacosamide (VIMPAT) 100 mg tab Take 1 tablet by mouth twice daily for 180 days. clonazePAM (KLONOPIN) 2 mg tablet Take 1 tablet by mouth three times daily for 180 days. promethazine (PHENERGAN) 25 mg tablet 1 po tid prn headache or nausea acetaminophen (TYLENOL) 325 mg tablet Take 1-2 tablets by mouth every 4 hours as needed. docusate sodium (COLACE) 100 mg capsule Take 1 capsule by mouth twice daily as needed for Constipation. benzocaine-menthol (CEPACOL) 15-3.6 mg lozg Use 1 Lozenge as instructed every 2 hours as needed. cyproheptadine (PERIACTIN) 4 mg tablet Take 4 mg by mouth twice daily. CPAP Change the pressure of autoBipap with EPAP 5-15 mh2o and PS 4-8cmh2O. His DME company is [employer] to fit patient preference, ramp, humidification and unlimited supplies Please send us machine download in 1 month CPAP Please send us machine download in 1 month SUMAtriptan (IMITREX) 100 mg tablet Take 100 mg by mouth as needed for Migraine Headache (see administration instructions). Cetirizine 10 mg cap Take 1-2 tablets by mouth as needed. fluticasone (FLONASE) 50 mcg/actuation nasal spray Use 1 [place] in each nostril twice daily. albuterol HFA (PROVENTIL HFA, VENTOLIN HFA) 90 mcg/actuation inhaler Inhale 1-2 Puffs as instructedas needed for Wheezing/Shortness of Breath. QUEtiapine (SEROQUEL) 100 mg tablet Take 1 tablet by mouth twice daily. nadolol (CORGARD) 80 mg tablet Take 1 tablet by mouth once daily. QUEtiapine (SEROQUEL) 100 mg tablet Take 1 tablet by mouth daily at bedtime. Take in addition to 300 mg tab for total of 400 mg at bedtime QUEtiapine (SEROQUEL) 300 mg tablet Take 1 tablet by mouth daily at bedtime. LORazepam (ATIVAN) 1 mg tablet Take 1 tablet by mouth as needed (for seizure lasting >3 minutes.Max 2 doses in 24 hours.) for up to 180 days. LORazepam (ATIVAN) 1 mg tablet Take 1 tablet by mouth as needed (for seizure lasting >3 minutes.Max 2 doses in 24 hours.) for up to 180 days. No current facility-administered medications for this visit. NEUROLOGICAL EXAM: nonfocal neurological exam Some skin redness noted around the well approximated incision site for the generator pack. Of note,patient frequently touches this region with his hand, rubbing fingers along tract up his neck, which is also red. Thin, hard, fixed tract palpable along the left, anterior aspect of the neck, superior to the clavicle. Again, there is redness noted in this area that the patient frequently touches during this office visit. No tenderness, swelling or dehiscence noted along lead tract or generator site. EVALUATIONS: Chest/neck XRay from today (01/07/2022): IMPRESSION: Vagal stimulator lead on the left side grossly intact. ? ASSESSMENT: Presents to Neurosurgery clinic today with reports of some occasional sensations over his left chest wall described as pins/needles worse when he rubs it. He has also noted that he is able to feel the lead in his neck, which appears red likely from repeated touching. Imaging and interrogation do not indicate any malfunction of the device at this time and he relates that his seizures remain well controlled. He expressed that at this time, the sensations are not painful as they have been with prior devices (specifically as it was prior to the September 2020 revision). For this reason, he is more comfortable continuing to monitor his symptoms as he feels the device is still functioning and managing his seizures well. I discussed the risks, benefits and alternatives of the medical plan with the patient. Questions were answered. The patient agreed with the plan as discussed. ? PLAN (discussed with Dr. Awad): - continue to monitor for now - Follow up as scheduled with Dr. Mendiola - follow up as needed based on symptoms I spent a total of 15 minutes on the date of the service which included preparing to see the patient, [id number] patient care, completing clinical documentation, obtaining and/or reviewing separately obtained history, performing a medically appropriate examination, counseling and educating the pat ient/family/caregiver, ordering medications, tests, or procedures, and communicating with other HCPs (not separately reported). Jose Angel Emery APRN.CNP January 07, 2022 documented in this encounterGalion [facility] Hospital08-23-2022 History of Present illness Narrative* Geovanna Colon, RT(R) - 01/07/2022 10:45 AM EDT Radiology Service Progress Note PATIENT NAME: Bishnu Colse DATE OF SERVICE: January 07, 2022 TIME: 12:42 PM PATIENT IDENTITY VERIFICATION COMPLETED USING TWO (2) IDENTIFIERS: Name and Date of confirmedby patient verbally. FALL SCREENING: Has the patient had 2 falls in the last year or 1 fall with injury or currently using an Ambulatory Assistive Device (Walker, Cane, Wheelchair, Crutches, etc.)? No PATIENT GENDER DATA: Male PATIENT RELEVANT IMPLANT DATA REVIEWED: Not Applicable RADIOLOGY DEPARTMENT: General X-ray: Exam(s) Completed: Chest X-Ray and Soft tissue neck AP/LATERAL PERIPHERAL IV DATA: Not applicable SIGNED BY: RT Yoselin(R) January 07, 2022 12:42 PM documented in this encounterGalion Community Hospital08-23-2022 Miscellaneous Notes* Telephone Encounter - Mily Hodges RN - 01/07/2022 9:31 AM EDT Pt requesting to move appt to 01/07 due to ride. Called and left vm making pt aware we did change appt and he can come today for xrays and clinic visit. Mily Hodges RN * Telephone Encounter - Mily Hodges RN - 01/06/2022 4:41 PM EDT Spoke to Bishnu - made aware of recommendations. Agreed to come in 01/08 @ [address] Awad in office -with xrays to be completed first. Routed to schedulers to add appointment. Mily Hodges RN * Telephone Encounter - Horace Ervin PA-C - 01/06/2022 4:27 PM EDT Patient should be seen in clinic as an add on tomorrow or Thursday. Can be added on to Jose Angel or Dr. Awad's schedule. If those dates don't work, then he can come to clinic next week. He will needa chest xray and neck xray prior to the appt. Xrays ordered. * Telephone Encounter - Mily Hodges RN - 01/06/2022 3:33 PM EDT Spoke to Bishnu - states two weeks ago was horsing around with nephew, who was hanging on his neck. Reports since then he has felt like the VNS device was dislodged - the area is swollen and inflamed feeling. Feels the left side of his neck is tingling. Unsure if the wire has been dislodged. Reportsthe incision is swollen, raised and inflamed. Reports over the last few months - the incision over the device becomes irritated - feels like the device is being poked with needles. Lasts for a few days, then goes away on his own. Denies seizure activity,denies n/v, denies fever or chills. Is recovering from bronchitis as well - unsure if his throat irritation is from this or the VNS issue. Advised Bishnu to send a picture via [employer]. Will discuss with ELIJAH for recommendation. Mily Hodges RN * Telephone Encounter - Mily Hodges RN - 01/06/2022 11:49 AM EDT S/P: 09/20/2020: VNS revision Called and left vm. * Telephone Encounter - Stephany BALDERAS - 01/06/2022 11:32 AM EDT PATIENT UPDATE Person calling Bishnu Carmen Coles Phone number [phone] Update provided pt is stating VNS by the wires has been hurting, the incision has been hurting and left side of his throat Last appointment 10/24/[address] awad documented in this encounterGalion [facility] Hospital08-23-2022 Miscellaneous Notes* Telephone Encounter - Mily Hodges RN - 01/07/2022 8:06 AM EDT Responded to myhcart request. Mily Hodges RN documented in this encounterGalion Community Hospital08-22-2022 Miscellaneous Notes* Telephone Encounter - Mily Hodges RN - 01/06/2022 4:43 PM EDT Responded to pt mychart. Mily Hodges RN documented in this encounterGalion Community Hospital05-20-2022 History of Present illness Narrative* Lesvia Viveros PSYD - 10/04/2021 10:01 AM EDT PSYCHOLOGY NOTE: Virtual visit This psychotherapy session was conducted virtually using [employer]. Consent related to virtual visit was provided verbally after information was read to patient. Current location: pt's home, address confirmed in chart Emergency contact: pt's sister, Nida, contact information confirmed in chart S/O: This is a 40 year old patient with nonepileptic seizures/conversion disorder in counseling for management of symptoms. Depression: 12/25- work and health stress- considering leaving job and taking [employer] party job SI?: denied- acknowledges anger is higher than normal- denied HI Anxiety: 12/25- work stress (primarily) worries about health stress) Function: working for [employer]- considering leaving current position and taking full disability and working [employer] CBT Workbook Taking Control of PNES Chapter 3 Getting Support Patient reviewed the chapter and completed the assignment. The material covers the importance of getting support in the process of getting control, and strategies for reducing isolation for seizure patients. The patient identified a support person to be a source of support while in this program. Most of the session was spent discussing assertive, passive, and aggressive communication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 unspecified headache type Procedures CONSULT TO HEADACHE CLINIC OFFICE/OUTPATIENT [facility] 60-74 MINUTES Kari Becker PA-C [address] [place] [address] Referral ID Status Reason Start Date Expiration Date Visits Requested Visits Authorized [id number] Authorized PCP Requested Referral 07/15/2022 07/15/2023 1 1 Chief Complaint and Reason for Visit Chief Complaint L leg pain post-op N KI Additional Source Comments (unrecognized sect ion and content) No Status Records FoundNo Status Records FoundNo Status Records FoundNo Status Records FoundNo Status Records FoundNo Status Records FoundNo Status Records FoundNo Status Records FoundNo Status Records FoundNo Status Records FoundNo Status Records Found INFORMATION SOURCE (unrecogn ized section and content) DATE CREATED AUTHOR 11/11/2017 [facility] DATE CREATED AUTHOR AUTHOR'S ORGANIZ ATION 01/30/2018 [facility] DATE CREATED AUTHOR AUTHOR'S ORGANIZ ATION 07/31/2022 [facility] DATE CREATED AUTHOR AUTHOR'S ORGANIZ ATION 12/30/2022 [facility] DATE CREATED AUTHOR AUTHOR'S ORGANIZ ATION 01/13/2023 [facility] DATE CREATED AUTHOR AUTHOR'S ORGANIZ ATION 02/23/2023 [facility] DATE CREATED AUTHOR AUTHOR'S ORGANIZ ATION 04/09/2023 [facility] DATE CREATED AUTHOR AUTHOR'S ORGANIZ ATION 04/26/2023 [facility] DATE CREATED AUTHOR AUTHOR'S ORGANIZ ATION 05/18/2023 [facility] DATE CREATED AUTHOR AUTHOR'S ORGANIZ ATION 05/20/2023 [facility] DATE CREATED AUTHOR AUTHOR'S ORGANIZ ATION 05/20/2023 [facility] Source Comments (unrecognize d section and content) In the event this informatio n is protected by the Federal Confidentiality of Alcohol and Drug Abuse Patient Records regulations: The Federal rules restrict any use of the information to criminally investigate or prosecute any alcohol or drug abuse patient.[facility] the event this information is protected by the Federal Confidentiality of Alcohol and Drug Abuse Patient Records regulations: The Federal rules restrict any use of the information to criminally investigate or prosecute any alcohol or drug abuse patient.[facility] the event this information is protected by the Federal Confidentiality of Alcohol and Drug Abuse Patient Records regulations: The Federal rules restrict any use of the information to criminally investigate or prosecute any alcohol or drug abuse patient.[facility] the event this information is protected by the Federal Confidentiality of Alcohol and Drug Abuse Patient Records regulations: The Federal rules restrict any use of the information to criminally investigate or prosecute any alcohol or drug abuse patient.[facility] the event this information is protected by the Federal Confidentiality of Alcohol and Drug Abuse Patient Records regulations: The Federal rules restrict any use of the information to criminally investigate or prosecute any alcohol or drug abuse patient.[facility] the event this information is protected by the Federal Confidentiality of Alcohol and Drug Abuse Patient Records regulations: The Federal rules restrict any use of the information to criminally investigate or prosecute any alcohol or drug abuse patient.[facility] the event this information is protected by the Federal Confidentiality of Alcohol and Drug Abuse Patient Records regulations: The Federal rules restrict any use of the information to criminally investigate or prosecute any alcohol or drug abuse patient.[facility] the event this information is protected by the Federal Confidentiality of Alcohol and Drug Abuse Patient Records regulations: The Federal rules restrict any use of the information to criminally investigate or prosecute any alcohol or drug abuse patient.[facility] the event this information is protected by the Federal Confidentiality of Alcohol and Drug Abuse Patient Records regulations: The Federal rules restrict any use of the information to criminally investigate or prosecute any alcohol or drug abuse patient.[facility] the event this information is protected by the Federal Confidentiality of Alcohol and Drug Abuse Patient Records regulations: The Federal rules restrict any use of the information to criminally investigate or prosecute any alcohol or drug abuse patient.[facility] the event this information is protected by the Federal Confidentiality of Alcohol and Drug Abuse Patient Records regulations: The Federal rules restrict any use of the information to criminally investigate or prosecute any alcohol or drug abuse patient.[facility] the event this information is protected by the Federal Confidentiality of Alcohol and Drug Abuse Patient Records regulations: The Federal rules restrict any use of the information to criminally investigate or prosecute any alcohol or drug abuse patient.[facility] the event this information is protected by the Federal Confidentiality of Alcohol and Drug Abuse Patient Records regulations: The Federal rules restrict any use of the information to criminally investigate or prosecute any alcohol or drug abuse patient.[facility] the event this information is protected by the Federal Confidentiality of Alcohol and Drug Abuse Patient Records regulations: The Federal rules restrict any use of the information to criminally investigate or prosecute any alcohol or drug abuse patient.[facility] the event this information is protected by the Federal Confidentiality of Alcohol and Drug Abuse Patient Records regulations: The Federal rules restrict any use of the information to criminally investigate or prosecute any alcohol or drug abuse patient.[facility] the event this information is protected by the Federal Confidentiality of Alcohol and Drug Abuse Patient Records regulations: The Federal rules restrict any use of the information to criminally investigate or prosecute any alcohol or drug abuse patient.[facility] the event this information is protected by the Federal Confidentiality of Alcohol and Drug Abuse Patient Records regulations: The Federal rules restrict any use of the information to criminally investigate or prosecute any alcohol or drug abuse patient.[facility] the event this information is protected by the Federal Confidentiality of Alcohol and Drug Abuse Patient Records regulations: The Federal rules restrict any use of the information to criminally investigate or prosecute any alcohol or drug abuse patient.[facility] the event this information is protected by the Federal Confidentiality of Alcohol and Drug Abuse Patient Records regulations: The Federal rules restrict any use of the information to criminally investigate or prosecute any alcohol or drug abuse patient.[facility] the event this information is protected by the Federal Confidentiality of Alcohol and Drug Abuse Patient Records regulations: The Federal rules restrict any use of the information to criminally investigate or prosecute any alcohol or drug abuse patient.[facility] the event this information is protected by the Federal Confidentiality of Alcohol and Drug Abuse Patient Records regulations: The Federal rules restrict any use of the information to criminally investigate or prosecute any alcohol or drug abuse patient.[facility] the event this information is protected by the Federal Confidentiality of Alcohol and Drug Abuse Patient Records regulations: The Federal rules restrict any use of the information to criminally investigate or prosecute any alcohol or drug abuse patient.[facility]In the event this information is protected by the Federal Confidentiality of Alcohol and Drug Abuse Patient Records regulations: The Federal rules restrict any use of the information to criminally investigate or prosecute any alcohol or drug abuse patient.[facility] the event this information is protected by the Federal Confidentiality of Alcohol and Drug Abuse Patient Records regulations: The Federal rules restrict any use of the information to criminally investigate or prosecute any alcohol or drug abuse patient.[facility] the event this information is protected by the Federal Confidentiality of Alcohol and Drug Abuse Patient Records regulations: The Federal rules restrict any use of the information to criminally investigate or prosecute any alcohol or drug abuse patient.[facility] the event this information is protected by the Federal Confidentiality of Alcohol and Drug Abuse Patient Records regulations: The Federal rules restrict any use of the information to criminally investigate or prosecute any alcohol or drug abuse patient.[facility] the event this information is protected by the Federal Confidentiality of Alcohol and Drug Abuse Patient Records regulations: The Federal rules restrict any use of the information to criminally investigate or prosecute any alcohol or drug abuse patient.[facility]In the event this information is protected by the Federal Confidentiality of Alcohol and Drug Abuse Patient Records regulations: The Federal rules restrict any use of the information to criminally investigate or prosecute any alcohol or drug abuse patient.[facility]In the event this information is protected by the Federal Confidentiality of Alcohol and Drug Abuse Patient Records regulations: The Federal rules restrict any use of the information to criminally investigate or prosecute any alcohol or drug abuse patient.[facility]In the event this information is protected by the Federal Confidentiality of Alcohol and Drug Abuse Patient Records regulations: The Federal rules restrict any use of the information to criminally investigate or prosecute any alcohol or drug abuse patient.[facility]In the event this information is protected by the Federal Confidentiality of Alcohol and Drug Abuse Patient Records regulations: The Federal rules restrict any use of the information to criminally investigate or prosecute any alcohol or drug abuse patient.[facility]In the event this information is protected by the Federal Confidentiality of Alcohol and Drug Abuse Patient Records regulations: The Federal rules restrict any use of the information to criminally investigate or prosecute any alcohol or drug abuse patient.[facility] Reason for Visit (unrecogniz ed section and content) Reason Comments Follow Up Reason Comments Seizures Reason Comments Appointment Reason Comments Bipolar Disorder Reason Comments Patient Update Vns issue Reason Comments Follow Up VNS Visit Reason Comments Radio Main J1 Specialty Diagnoses / Procedures Referred By Contac t Referred To Contact XR IMAGING Diagnoses 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 Procedures XR NECK SOFT TISSUE 2V AP/LAT RADIOLOGIC EXAMINATION NECK SOFT TISSUE Neur Epilepsy Main [address] [place] [address] Xr Imaging Referral ID Status Reason Start Date Expiration Date V isits Requested Visits Authorized [id number] Closed Auto-Generate d Referral 01/06/2022 02/05/2023 1 1 Reason Comments Patient Question Reason Comments Refill Request Reason Onset Date Comments Refill Request 02/17/2022 Reason Comments Other headaches Reason Onset Date Comments Refill Request 07/15/2022 Reason Comments Opened In Error Reason Comments Other Patient needs to hav e MRI of knee Reason Comments Letter Surgery clearance Reason Onset Date Comments Refill Request 12/11/2022 Reason Comments medication concern Reason Comments depresion and anxiety affecting seizure activity Reason Comments Medication Concern Indomethacin Reason Comments Follow Up Reason Comments Migraine Reason Onset Date Comments Refill Request 03/26/2023 Reason Comments Patient Update Care Teams (unrecognized sec tion and content) Financial Quantitative Analyst Relationship Specialty Start Date End Date Erlinda Nunez MD PCP - General Family Practice 01/02/11 Financial Quantitative Analyst Relationship Specialty Start Date End Date Erlinda Nunez MD PCP - General Family Practice 01/02/11 Financial Quantitative Analyst Relationship Specialty Start Date End Date Erlinda Nunez MD PCP - General Family Practice 01/02/11 Financial Quantitative Analyst Relationship Specialty Start Date End Date Erlinda Nunez MD PCP - General Family Practice 01/02/11 Financial Quantitative Analyst Relationship Specialty Start Date End Date Erlinda Nunez MD PCP - General Family Practice 01/02/11 Financial Quantitative Analyst Relationship Specialty Start Date End Date Erlinda Nunez MD PCP - General Family Practice 01/02/11 Financial Quantitative Analyst Relationship Specialty Start Date End Date Erlinda Nunez MD PCP - General Family Practice 01/02/11 Financial Quantitative Analyst Relationship Specialty Start Date End Date Erlinda Nunez MD PCP - General Family Practice 01/02/11 Financial Quantitative Analyst Relationship Specialty Start Date End Date Erlinda Nunez MD PCP - General Family Practice 01/02/11 Financial Quantitative Analyst Relationship Specialty Start Date End Date Erlinda Nunez MD PCP - General Family Medicine 01/02/11 Financial Quantitative Analyst Relationship Specialty Start Date End Date Erlinda Nunez MD PCP - General Family Medicine 01/02/11 Financial Quantitative Analyst Relationship Specialty Start Date End Date Erlinda Nunez MD PCP - General Family Medicine 01/02/11 Financial Quantitative Analyst Relationship Specialty Start Date End Date Erlinda Nunez MD PCP - General Family Medicine 01/02/11 Financial Quantitative Analyst Relationship Specialty Start Date End Date Erlinda Nunez MD PCP - General Family Medicine 01/02/11 Financial Quantitative Analyst Relationship Specialty Start Date End Date Erlinda Nunez MD PCP - General Family Medicine 01/02/11 Financial Quantitative Analyst Relationship Specialty Start Date End Date Erlinda Nunez MD PCP - General Family Medicine 01/02/11 Team Status: Active Member Role Status Dates Erlinda Nunez MD Primary Care Provider Active Team Status: Inactive Member Role Status Dates Erlinda Nunez MD Primary Care Provider Active Davis Mir DO Emergency Provider Active Financial Quantitative Analyst Relationship Specialty Start Date End Date Erlinda Nunez MD PCP - General Family Medicine 01/02/11 Financial Quantitative Analyst Relationship Specialty Start Date End Date Erlinda Nunez MD PCP - General Family Medicine 01/02/11 Financial Quantitative Analyst Relationship Specialty Start Date End Date Erlinda Nunez MD PCP - General Family Medicine 01/02/11 Financial Quantitative Analyst Relationship Specialty Start Date End Date Erlinda Nunez MD PCP - General Family Medicine 01/02/11 Financial Quantitative Analyst Relationship Specialty Start Date End Date Erlinda Nunez MD PCP - General Family Medicine 01/02/11 Financial Quantitative Analyst Relationship Specialty Start Date End Date Erlinda Nunez MD PCP - General Family Medicine 01/02/11 Financial Quantitative Analyst Relationship Specialty Start Date End Date Erlinda Nunez MD PCP - General Family Medicine 01/02/11 Financial Quantitative Analyst Relationship Specialty Start Date End Date Erlinda Nunez MD PCP - General Family Medicine 01/02/11 Financial Quantitative Analyst Relationship Specialty Start Date End Date Erlinda Nunez MD PCP - General Family Medicine 01/02/11 Financial Quantitative Analyst Relationship Specialty Start Date End Date Erlinda Nunez MD PCP - General Family Medicine 01/02/11 Goals (unrecognized section and content) Goals may be documented in a n alternate section FOR RECORDS PERTAINING TO PATIENTS WHO ARE OR HAVE BEEN ENROLLED IN A CHEMICAL DEPENDENCY/SUBSTANCEABUSE PROGRAM, SOME INFORMATION MAY BE OMITTED. This clinical summary was aggregated from multiple sources. Caution should be exercised in using it in the provision of clinical care. This summary normalizes information from multiple sources, and as a consequence, information in this document may materially change the coding, format and clinical context of patient data. In addition, data may be omitted in some cases. CLINICAL DECISIONS SHOULD BE BASED ON THE PRIMARY CLINICAL RECORDS. [facility] [employer] [facility]. provides no warranty or guarantee of the accuracy or completeness of information in this document.
--- NOTE | 2023-05-20 13:34 | CA_ITS ---
Patient Name: AMEYA MEZA MR#: [id number] : 1980 Exam Date: 05/20/2023 Ordering Doctor: DR ERLINDA NUNEZ . Remains ECHOCARDIOGRAM REPORT PROCEDURE: CA ECHO DOPPLER COMPLETE INDICATIONS: Lightheaded, chest wall pain, hypertension COMPARISON: None. DESCRIPTION: COMPLETE ECHOCARDIOGRAM Real-time transthoracic echocardiography with 2D, M-mode, spectral and color flow Doppler performed. QUALITY: Technical quality was good. 70 , 205#, BSA 2.11 m2 LEFT VENTRICLE: Normal chamber size. Normal left ventricular wall thickness. LV EF: Global left ventricular systolic function is normal; visually estimated ejection fraction is 55%. Unable to assess regional wall motion abnormalities. DIASTOLIC: Normal diastolic function. ATRIAL SEPTUM: Visually appears intact. LEFT ATRIUM: Normal chamber size. RIGHT ATRIUM: Normal chamber size. A prominent Eustachian valve (normal variant) is seen. RIGHT VENTRICLE: Normal chamber size. Normal right ventricular systolic function. TRICUSPID VALVE: Normal mobility and thickness. No stenosis with mild regurgitation. No evidence of pulmonary hypertension. RVSP 34 mmHg MITRAL VALVE: Normal mobility and thickness. No evidence of mitral valve stenosis. Trivial mitral regurgitation. AORTIC VALVE: Normal trileaflet appearance. No visible sclerosis. Normal leaflet mobility. No evidence of aortic valve stenosis. No aortic regurgitation. AORTIC ROOT: Normal diameter and appearance. PULMONIC VALVE: Normal thickness and mobility. No stenosis. Trivial regurgitation. PERICARDIUM: No evidence of pericardial effusion. IVC: Collapses with inspirations. IVC is normal in size. CONCLUSION: 1. Global left ventricular systolic function is normal; visually estimated ejection fraction is 55% 2. Right ventricle is normal in size and systolic function 3. Normal diastolic function 4. Mild tricuspid regurgitation Adult Echocardiography Procedure Report Left Ventricle LVEDD (3.7 - 5.6 cm): 5.36 cm LVESD (2.2 - 4.0 cm): 3.57 cm LVIVS thickness (0.6 - 1.2 cm): 0.92 cm LVPW thickness (0.5 - 1.0 cm): 0.94 cm e': 0.12 m/s E - e': 3.59 LVOT Max Gradient: 2.90 mm[Hg], 2.60 mm[Hg] LVOT Area (cm2): 0.83 m/s Peak Velocity (LVOT): 0.85 m/s, 0.81 m/s Mean Velocity (LVOT): 0.54 m/s LVOT Diameter 2.31 cm Left Atrium LA Volume Index (2D A2C): 21.38 ml/m2 Left Atrium Systolic Dimension: 3.83 cm Mitral Valve MV E to A Ratio: 0.97, 0.92 Mitral Valve A-Wave Peak Velocity: 0.45 m/s Mitral Valve E-Wave Peak Velocity: 0.42 m/s Right Ventricle Aorta AO Root Diam: 3.68 cm Ascending Ao Diam: 2.91 cm Aortic Valve AoV Area (Peak Alberto): 3.33 cm2, 3.42 cm2 AoV Area (VTI): 3.71 cm2, 3.62 cm2 Peak Velocity(Antegrade Flow): 1.04 m/s Peak Gradient(Antegrade Flow): 4.31 mm[Hg] Mean Velocity(Antegrade Flow): 0.74 m/s Mean Gradient(Antegrade Flow): 2.50 mm[Hg] Velocity Time Integral: 20.97 cm Tricuspid Valve Peak Velocity (Regurgitant Flow): 2.78 m/s Pulmonic Valve Mean Gradient: 3.37 mm[Hg], 2.62 mm[Hg], 3.04 mm[Hg] Mean Velocity: 0.88 m/s, 0.72 m/s, 0.78 m/s Peak Velocity: 1.24 m/s Peak Gradient: 6.20 mm[Hg], 5.85 mm[Hg], 6.56 mm[Hg] Right Atrium Right Atrium Systolic Pressure: 34.47 ml, 34.47 ml Dictated by: Scott Gaviria M.D. on 05/26/2023 at 09:41 Approved by: Scott Gaviria M.D. on 05/26/2023 at 10:44
== END 2023-05-20 12:55 | disposition home or self-care (01) ==
LOC: CARD 12:54
PROVIDERS: PCP Family Medicine; Visit Provider Family Medicine
DX: R42 Dizziness and giddiness (principal); R07.89 Other chest pain
CPT/HCPCS: 93306

== ENCOUNTER 2023-05-22 21:29 | Emergency (ER) | payer MEDICARE, MEDICAID, SELFPAY ==
[2023-05-22 21:32] VITALS: BP 142/84; PULSE 97; RESP 18; TEMP 36.5; O2SAT 96; BMI 29.2
--- OUTSIDE RECORDS SUMMARY | 2023-05-22 21:36 | XMS_ITS | CCD ---
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 Normal [facility] Operative Reporton Operative Report SURGERY DATE: 09/29/2022 PLATING DEPARTMENT HELPER: Fannie Silva RN PREOPERATIVE DIAGNOSIS: Left knee [...] PATIENT CONDITION: SATISFACTORY Sara Rios Dictated: 09/29/2022 [id number] Transcribed: 09/29/2022 [facility] Comment on above: Result Comment: Elec tronically Signed By: Scott Nassar DO\.br\Date and Time Signed: 10/01/22 15:48 EDT Postoperative Documentson Postoperative Documents [id number]#1.0 0CD:127 [facility] Consent for Anesthesiaon Consent for Anesthesia [id number]#1 .00CD:127 Normal [facility] Discharge Instructionson Discharge Instructions [id number]#1 .00CD:127 Normal [facility] IntraOperative Documentson 0 09-30-2022 IntraOperative Documents [id number] .00CD:127 [facility] Main OR Intraoperative Recor don 09-30-2022 Main OR Intraoperative Record IntraOp Document Type FT Summary Primary Physician: Scott Nassar DO Finalized Date/Time: 09/30/22 08:50:10 Pt. Name: BISHNU COLES/Sex: 1980 Male Med Rec #: [id number] Physician: Scott Nassar DO Financial #: [id number] Pt. Type: A Room/Bed: [place] [address] Admit/Disch: 09/29/22 08:12:54 - 09/29/22 13:20:37 Institution: [...] A Role Performed Anesthesiologist Surgeon - Primary Weatherization Operations Manager - Primary Chaplain Resident Time In 09/29/22 10:45:00 09/29/22 11:00:00 09/29/22 10:45:00 Time Out 09/29/22 11:25:00 09/29/22 11:25:00 09/29/22 11:25:00 Procedure KNEE ARTHROSCOPY(Left) KNEE ARTHROSCOPY(Left) KNEE ARTHROSCOPY(Left) Comments Dr. Mills supervising Last Modified By: Alyssa Chávez RN, RN, Alyssa Barfield RN 09/29/22 11:30:34 09/29/22 12:13:27 09/29/22 11:30:34 Entry 4 Entry 5 Case Attendee Martin Kendrick RN, Fannie Role Performed Scrub - Primary SPIRAL WINDING MACHINE HELPER Time In 09/29/22 10:45:00 09/29/22 10:45:00 Time Out 09/29/22 11:25:00 09/29/22 11:25:00 Procedure KNEE ARTHROSCOPY(Left) KNEE ARTHROSCOPY(Left) Comments Patient has pacemaker, surgeon requested product safety technical assistant Last Modified By: Saira PETERSON, Alyssa Barfield RN 09/29/22 11:30:34 09/29/22 12:13:27 Perioperative Protocols FT [...] Ollie Andrade Given Participants Maday Farah DO, Scott Reinoso, Saira PETERSON, Aroldo Multani Adam A, Hord RN, Fannie [...] KNEE ARTHROSCOPY Primary Procedure Yes Primary Surgeon Scott Nassar DO Start 09/29/22 11:06:00 Stop 09/29/22 11:19:00 Anesthesia [...] and tissue Entry 1 Skin Integrity Intact, Frederica, Warm, and Skin Abnormality No Dry Outcomes [...] 1 Proced (more content not included)... Normal [facility] Preoperative Documentson Preoperative Documents [id number]#1 .00CD:127 Normal [facility] Progress Note-Physicianon Progress Note-Physician Patient: BISHNU COLES Age: 41 years Sex: Male : 1980 Associated Diagnoses: None Author: MD Lina, Kelli Jay Postoperative Information Postoperative disposition: Postoperative disposition: To PACU. Optimetrix number: Optimetrix number [id number]. Anesthetic utilized: General. Health Status Allergies: Allergic [...] meets criteria ( To home ). Normal [facility] Comment on above: Result Comment: Elec tronically Signed By: MD Lina, Kelli Jay\.br\Date and Time Signed: 09/30/22 11:50 EDT Progress Note-Physician Patient: BISHNU COLES Age: 41 years Sex: Male : 1980 Associated Diagnoses: None Author: MD Mills Ahmad F Preoperative Information Time patient last ate or [...] list: All Problems adhd / SNOMED CT 4064284374 / Confirmed anxiety / SNOMED CT 93692198 / Confirmed apnea / SNOMED CT 5701058 / Confirmed Bipolar 2 disorder / SNOMED CT 562437628 / Confirmed Bipolar disorder / SNOMED CT 38636521 / Confirmed Epilepsy / SNOMED CT 767761516 / Confirmed 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 GERD (gastroesophageal reflux disease) / SNOMED CT 024734161 / Confirmed Obesity / SNOMED CT 8112672473 / Confirmed HIMA treated with BiPAP / SNOMED CT 409688780 / Confirmed 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 tachycardia / SNOMED CT 4217588 / Confirmed vagel nerve stimulator / Confirmed Resolved: ADHD - Attention deficit disorder with hyperactivity / SNOMED CT 5689785513 Resolved: ADHD - Attention deficit disorder with hyperactivity / SNOMED CT 3272716824 Resolved: Attempted suicide / SNOMED CT 999638787 2016 Resolved: Depression / SNOMED CT 658831407 Resolved: depression / SNOMED CT 90958287 Resolved: MIGRAINE / ICD-9-CM 346 Resolved: Respiratory failure / SNOMED CT 4232368291 respiratory failure requiring intubation after suicide attempt in 2016 Resolved: Tachycardia / SNOMED CT 8099505866 Resolved: Tachycardia / SNOMED CT 4314711234 Histories Past Medical History: Active Epilepsy (440712797) Comments: 09/19/2022 EDT 14:25 EDT - Janay Aranda LPN 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 Sleep apnea (064676683) Comments: 09/19/2022 EDT 12:41 EDT - Janay Aranda LPN uses Bipap seizures (321037678) tachycardia (3021665) adhd (7496896141) anxiety (39496877) apnea (8881319) vagel nerve stimulator Resolved MIGRAINE (346): Resolved. Tachycardia (0991662224): Resolved. Depression (677491871): Resolved. ADHD - Attention deficit disorder with hyperactivity (2705717378): Resolved. Tachycardia (2532483975): Resolved. ADHD - Attention deficit disorder with hyperactivity (0490944108): Resolved. depression (06476649): Resolved. Attempted suicide (925513205): Resolved. Comments: 09/19/2022 EDT 14:19 EDT - Janay Aranda LPN 2016 Respiratory failure (0198387286): Resolved. Comments: 09/19/2022 EDT 14:21 EDT - Janay Aranda LPN respiratory failure requiring intubation after suicide attempt in 2016 Family History: Primary malignant neoplasm of colon Grandparent Hypertension Mother Father P (more content not included)... Normal [facility] Comment on above: Result Comment: Elec tronically Signed By: MD Lina, Kelli F\.br\Date and Time Signed: 09/30/22 11:48 EDT Consent for Treatmenton 09-15 Consent for Treatment [id number]#1.0 0CD:127 Normal [facility] Discharge Instructionson Discharge Instructions BISHNU COLES :1980 Visit Date:09/29/2022 Inpatient Discharge Instructions Your Care Team Admitting Physician - Scott Nassar DO Referring Physician - Scott Nassar DO Reason for Your Visit LEFT KNEE [...] AM EDT Comments: Keep scheduled appointment Where: [address] [place], [place] [phone] [facility] (1) Medications What How Much When Instructions [...] MIGRAINE Respiratory failure Tachycardia Tachycardia Education Materials [place], [place] [facility] DISCHARGE INSTRUCTIONS: KNEE ARTHROSCOPY [...] to suc (more content not included)... Normal [facility] Comment on above: Result Comment: Elec tronically Signed By: Ashu PETERSON, Nichole Joseph.krista\Date and Time Signed: 09/29/22 11:29 EDT H&P Updateon 09-29-2022 H&P Update [id number]#1. 00CD:127 [facility] IntraOperative Documentson 0 09-29-2022 IntraOperative Documents [id number]#1.00 CD:127 [facility] Main OR PACU I Recordon 09-15 Main OR PACU I Record PACU Phase I Docum ent Type FT Summary Primary Physician: Scott Nassar DO Finalized Date/Time: 09/29/22 12:23:18 Pt. Name: BISHNU COLES/Sex: 1980 Male Med Rec #: [id number] Physician: Scott Nassar DO Financial #: [id number] Pt. Type: A Room/Bed: [place] [address] Admit/Disch: 09/29/22 08:12:54 - Institution: Case Times [...] By: Piedad Turner I 09/29/22 12:23 Normal [facility] Main OR PACU II Recordon Main OR PACU II Record PACU Phase II Document Type FT Summary Primary Physician: Scott Nassar DO Finalized Date/Time: 09/29/22 13:21:13 Pt. Name: BISHNU COLES/Sex: 1980 Male Med Rec #: [id number] Physician: Scott Nassar DO Financial #: [id number] Pt. Type: A Room/Bed: Admit/Disch: 09/29/22 08:12:54 - 09/29/22 13:20:37 Institution: [...] Signed By: Nichole Wakefield RN 09/29/22 13:21 [facility] Main OR Preoperative Recordo n 09-29-2022 Main OR Preoperative Record PreOp Document Type FT Summary Primary Physician: Scott Nassar DO Finalized Date/Time: 09/29/22 11:32:35 Pt. Name: COLESMANJITMEHDI Farmer./Sex: 1980 Male Med Rec #: [id number] Physician: Scott Nassar DO Financial #: [id number] Pt. Type: A Room/Bed: [place] [address] Admit/Disch: 09/29/22 08:12:54 - Institution: Case Times [...] By: Alyssa Chávez RN 09/29/22 11:32 Normal [facility] Monitor Recordon 09-29-2022 Monitor Record [id number]#1. 00CD:127 Normal [facility] Monitor Record [id number]#1. 00CD:127 Normal [facility] Patient Education - Texton 0 09-29-2022 Patient Education - Text [place], [place] [facility] DISCHARGE INSTRUCTIONS: KNEE ARTHROSCOPY [...] your appointment. Scott Nassar, DO [facility] [address] [place], [place] [address] Reviewed: 08-23 [facility] Outside Recordson 09-24-2022 Outside Records [id number]#1.0 0CD:127 [facility] Consent for Procedure/Surger yon 09-23-2022 Consent for Procedure/Surgery [id number]#1. 00CD:127 [facility] Inpatient Patient Summaryon 09-23-2022 Inpatient Patient Summary [facility] [address], [place] [address] [facility] Clinical Discharge Instructions PERSON INFORMATION Name: BISHNU COLES [facility]#:[id number] PHYSICIANS Admitting Physician: Scott Nassar DO Attending Physician: Scott Nassar DO PCP: Enrique OWENS, Erlinda Discharge Diagnosis: Acute medial meniscus tear of left knee Comment: PATIENT EDUCATION INFORMATION Instructions: Nassar - Knee Arthroscopy (Custom) (CUSTOM) Medication Leaflets: Follow up: With: Address: When: Scott Nassar [address] [place] [address] [facility] (1) Comments: Keep scheduled appointment Type Location Start [facility] 09/29/2022 11:15 AM 09/29/2022 12:00 [...] 3 Tablets By Mouth at bedtime. Comment: Cee [facility] Outpatient Surgery Discharge Instructionon 09-23-2022 Outpatient Surgery Discharge Instruction [address] [address] Patient Discharge Instructions PERSON INFORMATION [...] THE NEAREST EMERGENCY ROOM OR CALL 911 I BISHNU COLES, have received the attached patient education materials/instructions and have verbalized understanding: May we do a follow up call? Yes No I was present when discharge instructions were given Patient Signature Date Clinican/Nurse Signature ___ Date Follow up: With: Address: When: Scott Nassar [address] [place], [place] [phone] Business (1) Comments: Keep scheduled appointment Type Location Start [facility] Surgery [facility] 09/29/2022 11:15 AM 09/29/2022 [...] to serve you. Thank you for choosing [facility] HERE ARE THE MEDICATION CHANGES THAT [...] Mouth at bedtime. PATIENT EDUCATION INFORMATION Instructions: [place], [place] [facility] DISCHARGE INSTRUCTIONS: KNEE ARTHROSCOPY [...] at y (more content not included)... Normal [facility] Discharge Instructionson Discharge Instructions [id number]#1. 00CD:127 Normal [facility] ED Clinical Summaryon 2022 ED Clinical Summary [address] [address] ED Clinical Summary Person Information Name: BISHNU COLES [place] Age: 41 Years : 1980 Sex: Male Language: Kiswahili PCP: Erlinda Nunez MD Marital Status: Single Phone: [phone] Visit Id: Visit Reason: Knee pain-swelling; LT [...] 09/21/2022 23:08:46 09/21/2022 23:08:46 09/21/2022 23:08:46 ADDRESS: [address] [place] [phone] PHYS DOC NOTES: MEDICAL INFORMATION: Prescriptions Given: [...] Follow up: With: Address: When: Scott Nassar [address] [place], [place] [phone] Business (1) In 3 days 09/24/2022 With: Address: When: Erlinda Nunez [address] [place] [phone] Business (1) In 3 days 09/24/2022 Comments: [...] worsening symptoms. DIAGNOSIS: Left knee pain Normal [facility] ED Note-Physicianon 09-23-19 ED Note-Physician Basic Information [...] and Complexity of Problems Differential Diagnosis: [] [facility] Data External documents reviewed: Not applicable My [...] Nassar In 3 days 09/24/2022 EDT [address] [place] [address]- Business (1) Additional Instructions: Erlinda Nunez In 3 days 09/24/2022 EDT [address] [place] [address]- Business (1) Additional Instructions: Call the office [...] Patient seen and evaluated by the physician historian research assistant. Attending physician was present in the emergency department and supervised care. This visit was performed by both the physician and an APC. I performed all aspects of the MDM as documented. This report was transcribed using voice recognition software. Every effort was made to ensure accuracy, however, inadvertently computerized motorized squad sergeant mistakes may be present. Appropriate healthcare PPE [...] epilepsy Post (more content not included)... Normal [facility] Comment on above: Result Comment: Elec tronically [...] Managing pain, stiffness, and swelling ? Take ahaf-pcu-gtmnkrr and prescription medicines only as told by [...] activities are safe for you. ? Perform wxygy-sm-kbufhr exercises only as told by your health [...] keep your urine pale yellow. ? Take sqwo-lhk-njwnzqn or prescription med (more content not included)... Normal [facility] ED Patient Summaryon 023 ED Patient Summary [place] [id number] Patient Discharge Instructions Person Information Name: BISHNU COLES Age: 41 Years Arrival Date: 09/21/2022 20:52:09 Discharge Diagnosis: Left knee pain Primary Care Physician: Erlinda Nunez MD Provider Information Primary Provider: Virgil Dozier DO Advanced Welt Slasher:Yandel Hanna PA-C The exam and treatment you received in the Emergency Department were for an urgent problem and are not intended as complete care. It is important that you follow up with a doctor, nurse practitioner, or physician?s historian research assistant for ongoing care. If your symptoms become worse or you do not improve as expected and you are unable to reach your usual health care provider, you should return to the Emergency Department. We are available 24 hours a day. BISHNU COLES has been given the following list of patient education materials, prescriptions and follow-up instructions: Follow-up Instructions: With: Address: When: Scott Nassar [address] [place], [place] [phone] Business (1) In 3 days 09/24/2022 With: Address: When: Erlinda Basssharon [address] [place] [address] [place] [id number] [facility] (1) In 3 days 09/24/2022 Comments: Call [...] opioids can be used to help relieve ornwcgeg-xk-lxkawx pain and are often prescribed following a [...] secure place (more content not included)... Normal [facility] Consent for Treatmenton Consent for Treatment [id number] [id number]#1.0 0CD:127 Normal [facility] BUNon 09-19-2022 Urea nitrogen [Mass/Vol] 15 mg/dL Normal - [facility] Comment on above: Performed By: #### 2 279658, 2468494, 8327731, 8467512, [id number] ####[facility] [address] [address] CBC w/Indiceson 09-19-2022 Erythrocyte distribution width (RBC) [Ratio] 13.4 % Normal 10.9-14.2 [facility] Comment on above: Performed By: #### 2 038466, 0804606, 9266715, 3208609, 57759905 ####[address] [address] Hematocrit (Bld) [Volume fraction] 48.6 % Normal 37.7-49.0 [facility] Comment on above: Performed By: #### 2 497091, 4003159, 5035359, 3918136, [id number] ####[address] [address] Hemoglobin (Bld) [Mass/Vol] 15.8 g/dL Normal 13.5-17.5 [facility] Comment on above: Performed By: #### 2 836658, 7166677, 0278239, 3038643, [id number] ####[address] [address] MCH (RBC) [Entitic mass] 28.0 pg Normal 27.0-34.0 [facility] Comment on above: Performed By: #### 2 826097, 6970996, 9928553, 3399706, 77879312 ####[address] [address] MCHC (RBC) [Mass/Vol] 32.5 g/dL Normal 31.4-36.0 [facility] Comment on above: Performed By: #### 2 230541, 6464130, 2498271, 2517311, 72492013 ####[address] [address] MCV (RBC) [Entitic vol] 86.1 fL Normal 80.0-100.0 [facility] Comment on above: Performed By: #### 2 011763, 0254653, 9452507, 1817232, 97411504 ####[address] [place] [address] Platelet mean volume (Bld) [Entitic vol] 7.4 fL Normal 6.4-10.8 [facility] Comment on above: Performed By: #### 2 829511, 2850505, 0291518, 8513438, 73132667 ####[place] [address] [place] [address] Platelets (Bld) [#/Vol] 296.0 E9/L Normal 150.0-500.0 [facility] Comment on above: Performed By: #### 2 651031, 5648933, 5390862, 9040432, 20275129 ####[place] [address] [place] [address] RBC (Bld) [#/Vol] 5.6 E12/L Normal 4.3-5.9 [facility] Comment on above: Performed By: #### 2 729132, 4290105, 4958912, 7733465, 53650771 ####[facility] [address] [place] [address] WBC corrected for nucl RBC Auto (Bld) [#/Vol] 7.0 E9/L Normal 4.0-11.0 [facility] Comment on above: Performed By: #### 2 144322, 9061748, 5767702, 7400191, 65325157 ####[address] [address] CHEMISTRYOrdered By: SYSTEM SYSTEM on 09-19-2022 Anion gap [Moles/Vol] 11 mmol/L Normal 6 - 16 mEq/L F [facility] Remisol Chloride [Moles/Vol] 103 mmol/L Normal 101 - 1 11 mmol/L [facility] Remisol CO2 [Moles/Vol] 27 mmol/L Normal 21 - 31 mmol/L [facility] Remisol Creatinine [Mass/Vol] 0.8 mg/dL Normal 0.5 - 1.3 mg/dL FT Remisol GFR/1.73 sq M.predicted among non-blacks MDRD (S/P/Bld) [Vol rate/Area] 115 mL/min/1.73 m2 Normal >=59mL/min/1 .73 m2 [facility] Chem S Potassium [Moles/Vol] 4.3 mmol/L Normal 3.5 - 5.3 mmol/L [facility] Remisol Sodium [Moles/Vol] 137 mmol/L Normal 135 - 145 mmol/L [facility] Remisol Urea nitrogen [Mass/Vol] 15 mg/dL Normal 5 - 21 mg/dL [facility] Remisol Consent for Treatmenton Consent for Treatment [id number] [id number]#1.0 0CD:127 Normal [facility] Creatinineon 09-19-2022 Creatinine [Mass/Vol] 0.8 mg/dL Normal 0.5-1.3 [facility] Comment on above: Performed By: #### 2 368000, 3826679, 3736626, 7363208, 46974124 ####[facility] [address] [place] [address] HEMATOLOGYOrdered By: Daysi Gaxiola on 09-19-2022 Erythrocyte distribution width (RBC) [Ratio] 13.4 % Normal 10.9 - 14.2 % [facility] HemeAutoSS Hematocrit (Bld) [Volume fraction] 48.6 % Normal 37.7 - 49.0 % [facility] HemeAutoSS Hemoglobin (Bld) [Mass/Vol] 15.8 g/dL Normal 13.5 - 17.5 gm/dL [facility] HemeAutoSS MCH (RBC) [Entitic mass] 28.0 pg Normal 27.0 - 34.0 pg [facility]eAutoSS MCHC (RBC) [Mass/Vol] 32.5 g/dL Normal 31.4 - 36.0 gm/dL FT HemeAutoSS MCV (RBC) [Entitic vol] 86.1 fL Normal 80.0 - 100.0 fL FT HemeAutoSS Platelet mean volume (Bld) [Entitic vol] 7.4 fL Normal 6.4 - 10.8 fL FT HemeAutoSS Platelets (Bld) [#/Vol] 296.0 E9/L Normal 150.0 - 500.0 E9/L FT HemeAutoSS RBC (Bld) [#/Vol] 5.6 E12/L Normal 4.3 - 5.9 E12/L [facility] HemeAutoSS WBC corrected for nucl RBC Auto (Bld) [#/Vol] 7.0 E9/L Normal 4.0 - 11.0 E9/L [facility] HemeAutoSS Lyteson 09-19-2022 Anion gap [Moles/Vol] 11 mmol/L Normal 6-16 [facility] Comment on above: Performed By: #### 2 [id number], [id number], [id number], [id number], [id number] ####[facility] [address] [place] [place] [address] Chloride [Moles/Vol] 103 mmol/L Normal 101-111 [facility] Comment on above: Performed By: #### 2 [id number], [id number], [id number], [id number], [id number] ####[facility] [address] [place] [address] CO2 [Moles/Vol] 27 mmol/L Normal 21-31 [facility] Comment on above: Performed By: #### 2 [id number], [id number], 9289381, [id number], [id number] ####[facility] [address] [place] [address] Potassium [Moles/Vol] 4.3 mmol/L Normal 3.5-5.3 [facility] Comment on above: Performed By: #### 2 [id number], [id number], 1181816, 7748534, [id number] ####[facility] [address] [place] [place] [address] Sodium [Moles/Vol] 137 mmol/L Normal 135-145 [facility] Comment on above: Performed By: #### 2 [id number], 8486308, 1686674, [id number], [id number] ####[facility] [address] [place] [address] eGFRon 09-19-2022 GFR/1.73 sq M.predicted among non-blacks MDRD (S/P/Bld) [Vol rate/Area] 115 mL/min/1.73 m2 Normal >=59 [facility] Comment on above: Order Comment: Order added by Discern Expert. Result Comment: [employer] Sales Representative [place] kidney disease could be indicated at eGFR's of less than 60 mL/min/1.73m2. Kidney failure is indicated at less than 15 mL/min/1.73m2. Performed By: #### 2 [id number], 0654241, 3715078, 0369886, [id number] ####[facility] [address] [place] [address] [facility] 09-17-2022 [facility] Telephone (NE50MN) BISHNU COLES ([id number]) 1980 M Date Time Provider Department 09/17/22 LINO MENDIOLA NE50MN During your visit today, we recorded the following information about you: Stephany Esau PSS 09/17/2022 9:36 AM Signed Letter Request: Reason letter is requested. Letter if its ok for patient to have knee scope surgery? Person calling: [employer] ext [phone] To be addressed to: to whom it may concern Address/Email: Phone/ Patient of Dr. maury Velasquez RN 09/17/2022 11:34 AM Signed Spoke to bishnu and he is doing well. No seizures. He is having the arthroscopy 09/29/2022. We discussed that he should not miss any doses of his medication for procedure. He verbalizes understanding. Letter request forwarded for review. NICHOLAS Thurman PA-C 09/17/2022 12:00 PM Signed Yes I can sign off on letter, thanks, BARTOLOME Griffin RN 09/17/2022 12:41 PM Signed Letter drafted. Forwarded for review and signature via [employer] Copy to fax number below. NICHOLAS Thurman RN 09/17/2022 12:41 PM Signed Letter signed. Roula Velasquez RN Franches[address] 09/23/2022 12:00 PM Signed Per Chiquita, please refax clearance letter to Dr. Nassar at [phone]. Reynaldo Braswell RN 09/23/2022 1:45 PM Signed [...] clearance Prescriptions as of 09/23/2022 - rizatriptan (MAXALT-CELL TUBER HAND) 10 mg disintegrating tablet Take 1 tablet [...] and PS 4-8cmh2O. His DME company is [employer] , new mask to fit patient preference, [...] (FLONASE) 50 mcg/actuation nasal spray Use 1 Clinton in each nostril twice daily. - albuterol [...] Text Encoun (more content not included)... Normal [facility] CNOVon 09-02-2022 CNOV Office Visit (NEUSES ) BISHNU COLES ([id number]) 1980 M Date Time Provider Department 09/02/22 1:00 PM NADIRA PURDY During your visit today, we recorded the following information about you: Nadira Purdy APRN.SNOW RANGER 09/02/2022 12:56 PM Signed Patient returns after completion of his MRI testing. VNS settings reset to pre-MRI values with Output current at 1.625 and Magnet current at 1.875. Tolerated procedure well. Nadira Purdy APRN.SNOW RANGER Referring Provider: PAOLA MICHEL [[id number]] Allergies As of Date: 09/02/2022 Noted Allergy [...] [Z96.89] Prescriptions as of 09/02/2022 - rizatriptan (MAXALT-CELL TUBER HAND) 10 mg disintegrating tablet Take 1 tablet [...] and PS 4-8cmh2O. His DME company is [employer] , new mask to fit patient preference, [...] (FLONASE) 50 mcg/actuation nasal spray Use 1 Clinton in each nostril twice daily. - albuterol [...] Encounter Status:Closed by [facility] BISHNU COLES ([id number]) 1980 M Date Time Provider Department 09/02/22 11:00 AM NADIRA PURDY During your visit today, we recorded the following information about you: Nadira Purdy APRN.[facility] 09/02/2022 11:02 AM Signed CC: VNS interrogation prior to MRI HPI: This is a 41 year old male who presents tot the outpatient clinic alone. He is scheduled for an MRI of the brain today. Here for VNS shut off Current Outpatient Medications Medication Sig rizatriptan (MAXALT-CELL TUBER HAND) 10 mg disintegrating tablet Take 1 tablet [...] and PS 4-8cmh2O. His DME company is [employer] , [employer] mask to fit patient preference, ramp, humidification [...] (FLONASE) 50 mcg/actuation nasal spray Use 1 Clinton in each nostril twice daily. albuterol HFA (PROVENTIL HFA, VENTOLIN HFA) 90 mcg/actuation inhaler Inhale 1-2 Puffs as instructed as needed for Wheezing/Shortness of Breath. No current facility-administered medications for this visit. ALLERGIES Allergen Reactions Keppra [Levetiracet* Other: See Comments Increases his ADHD Ketorolac Trometham* Unknown unknown Pristiq [Desvenlafa* Other: See Comments sz [facility] VNS Seq. No.: Aspire SR [id number] VNS Serial No.: [id number] Date of Implantation: 2020 Stimulation Parameters: Current [...] after MRI completed. Referring Provider: PAOLA MICHEL [[id number]] Allergies As of Date: 09/02/2022 Noted Allergy [...] [Z96.89] Prescriptions as of 09/02/2022 - rizatriptan (MAXALT-CELL TUBER HAND) 10 mg disintegrating tablet Take 1 tablet [...] by m (more content not included)... Normal [facility] MRI KNEE WO IVCON LTon 09-02 MRI KNEE WO IVCON LT * * *Final Report* * * DATE OF EXAM: Sep 02 2022 12:19PM QBM 0212 - MRI KNEE WO IVCON LT / PROCEDURE REASON: m2. * * * * Physician Interpretation * * * * EXAMINATION: MRI LEFT KNEE WITHOUT CONTRAST CLINICAL HISTORY: Unspecified internal derangement of left knee TECHNIQUE: [...] DEGENERATIVE CHONDRAL CHANGES IN THE PATELLOFEMORAL COMPARTMENT. Soft Top Installer: APARNA Transcribe Date/Time: Sep 02 2022 12:58P Dictated by : THIAGO ILNK MD This examination was interpreted and the report reviewed and electronically signed by: THIAGO LINK MD on Sep 02 2022 1:01PM EST [id number] Normal [facility] CNPNon 07-31-2022 CNPN Telephone (NE50MN) BISHNU COLES ([id number]) 1980 M Date Time Provider Department 07/31/22 LINO MENDIOLA NE50MN During your visit today, we recorded the following information about you: Francheska Nix Sec 07/31/2022 2:55 PM Signed General call : Full name of person calling: Bishnu Coles Relationship to patient: self Phone # : [phone] (home) Reason for call: Patient's orthopaedic specialist, Dr. López, in [place] recommends an MRI of knee. This will require VNS to be turned off. Please advise how to accomplish this at [facility]. Patient of Dr. Maury Velasquez RN [...] and PS 4-8cmh2O. His DME company is [employer] , U[employer]K mask to fit patient preference, ramp, humidification [...] (FLONASE) 50 mcg/actuation nasal spray Use 1 Clinton in each nostril twice daily. - albuterol [...] Status:Closed by ROULA VELASQUEZ on 07/31/22 Normal [facility] CBC AUTO DIFFon 07-28-2022 BASO # 0.1 103/ul Normal 0.0-0.1 [facility] Comment on above: Performed By: #### C CLEMENCIA BMP #### [facility] [address] [address] [address] Meron Gentile Basophils/100 WBC (Bld) 0.5 % Normal 0.2-2.0 [facility] Comment on above: Performed By: #### C CLEMENCIA BMP #### [facility] [address] [address] [address] Meron Gentile EO # 0.2 103/ul Normal 0.0-0.7 [facility] Comment on above: Performed By: #### C MADM, BMP #### [facility] [address] [place] [address] Dr. Meron Gentile Eosinophils/100 WBC (Bld) 2.0 % Normal 0.9-7.0 [facility] Comment on above: Performed By: #### C DONNIEM, BMP #### [facility] [address] [place] [address] Dr. Meron Gentile Erythrocyte distribution width (RBC) [Ratio] 12.5 % Normal 11.0-15.0 [facility] Comment on above: Performed By: #### C DONNIEM, BMP #### [facility] [address] [place] [address] Dr. Meron Gentile Hematocrit (Bld) [Volume fraction] 48.6 % Normal 42.0-54.0 [facility] Comment on above: Performed By: #### C CLEMENCIA, BMP #### [facility] [address] [place] [address] Dr. Meron Gentile Hemoglobin (Bld) [Mass/Vol] 16.7 g/dL Normal 14.0-18.0 [facility] Comment on above: Performed By: #### C CLEMENCIA, BMP #### [facility] [address] [place] [address] Dr. Meron Gentile IG # 0.03 10e3/ul Normal 0.00-0.03 [facility] Comment on above: Performed By: #### C CLEMENCIA, BMP #### [facility] [address] [place] [address] Dr. Meron Gentile IG % 0.3 % Normal 0.0-0.5 [facility] Comment on above: Performed By: #### C MADM, BMP #### [facility] [address] [place] [address] Dr. Meron Gentile LYMPH # 2.0 103/ul Normal 1.2-3.8 [facility] Comment on above: Performed By: #### C MADM, BMP #### [facility] [address] [place] [address] Dr. Meron Gentile Lymphocytes/100 WBC (Bld) 20.4 % Critically low 20.5-60.0 [facility] Comment on above: Performed By: #### C CLEMENCIA, BMP #### [facility] [address] [place] [address] Dr. Meron Gentile MANUAL DIFF REQ NO Normal [facility] Comment on above: Performed By: #### C CLEMENCIA, BMP #### [facility] [address] [place] [address] Dr. Meron Gentile MCH (RBC) [Entitic mass] 28.8 pg Normal 25.9-34.0 [facility] Comment on above: Performed By: #### C CLEMENCIA, BMP #### [facility] [address] [place] [address] Dr. Meron Gentile MCHC (RBC) [Mass/Vol] 34.4 g/dL Normal 29.9-35.2 [facility] Comment on above: Performed By: #### C CLEMENCIA, BMP #### [facility] [address] [place] [address] Dr. Meron Gentile MCV (RBC) [Entitic vol] 83.9 fL Normal 80.0-94.0 [facility] Comment on above: Performed By: #### C CLEMENCIA, BMP #### [facility] [address] [place] [address] Dr. Meron Gentile MONO # 0.7 103/ul Normal 0.3-0.8 [facility] Comment on above: Performed By: #### C CLEMENCIA, BMP #### [facility] [address] [place] [address] Dr. Meron Gentile Monocytes/100 WBC (Bld) 7.2 % Normal 1.7-12.0 [facility] Comment on above: Performed By: #### C CLEMENCIA, BMP #### [facility] [address] [place] [address] Dr. Meron Gentile NEUT # 6.7 103/ul Critically high 1.4-6.5 [facility] Comment on above: Performed By: #### C CLEMENCIA, BMP #### [facility] [address] [place] [address] Dr. Meron Gentile Neutrophils/100 WBC (Bld) 69.6 % Normal 43.0-75.0 [facility] Comment on above: Performed By: #### Joselin KHANNA, BMP #### [facility] [address] [address] [address] Meron Gentile Platelet mean volume (Bld) [Entitic vol] 8.7 fL Critically low 9.5-13.5 [facility] Comment on above: Performed By: #### C CLEMENCIA, BMP #### [facility] [address] [address] [address] Meron Gentile PLT 326 103/ul Normal 150-450 [facility] Comment on above: Performed By: #### Joselin KHANNA, BMP #### [facility] [address] [address] [address] Meron Gentile RBC 5.79 106/ul Normal 4.70-6.10 [facility] Comment on above: Performed By: #### Joselin KHANNA, BMP #### [facility] [address] [address] [address] Meron Gentile WBC 9.6 103/ul Normal 4.0-11.0 [facility] Comment on above: Performed By: #### Joselin KHANNA, BMP #### [facility] [address] [address] [address] Meron Gentile CRPon 07-28-2022 CRP [Mass/Vol] mg/L Normal <=1.0 [facility] Comment on above: Performed By: #### B MP, CRP #### [facility] [address] [place] [address] ABD/PELV W CONon [...] by: OTF PARKS Date: 2022-07-28 21:[address] [facility] [address] HEAD WO CONon 07-28-2022 CT [...] OTF PARKS Date: 2022-07-28 21:24 Normal [facility] ER URINE PROFILEon 3 Bilirubin Ql (U) Negative Normal NEGATIVE [facility] Comment on above: Performed By: #### E RUR #### [facility] [address] [place] [address] Dr. Meron Gentile Clarity (U) CLEAR Normal CLEAR [facility] Comment on above: Performed By: #### E RUR #### [facility] [address] [address] [address] Meron Gentile Color (U) LT. YELLOW Normal YELLOW [facility] Comment on above: Performed By: #### E RUR #### [facility] [address] [place] [address] Dr. Meron Gentile ERUAHD A micrscopic examination will be performed if indicated. Normal [facility] Comment on above: Performed By: #### E RUR #### [facility] [address] [place] [address] Dr. Meron Gentile Glucose Ql (U) Negative Normal NEGATIVE [facility] Comment on above: Performed By: #### E RUR #### [facility] [address] [place] [address] Dr. Meron Gentile Hemoglobin Ql (U) Negative Normal NEGATIVE [facility] Comment on above: Performed By: #### E RUR #### [facility] [address] [place] [address] Dr. Meron Gentile Ketones Ql (U) Negative Normal NEGATIVE [facility] Comment on above: Performed By: #### E RUR #### [facility] [address] [place] [address] Dr. Meron Gentile LEUKOCYTES Negative Normal NEGATIVE [facility] Comment on above: Performed By: #### E RUR #### [facility] [address] [place] [address] Dr. Meron Gentile Nitrite Ql (U) Negative Normal NEGATIVE [facility] Comment on above: Performed By: #### E RUR #### [facility] [address] [place] [address] Dr. Meron Gentile pH (U) 7.0 [pH] Normal 5-9 [facility] Comment on above: Performed By: #### E RUR #### [facility] [address] [place] [address] Dr. Meron Gentile SPEC GRAVITY <=1.005 Abnormal 1.005-<=1.02 5 [facility] Comment on above: Performed By: #### E RUR #### [facility] [address] [place] [address] Dr. Meron Gentile UA PROTEIN Negative Normal NEGATIVE/ TRACE [facility] Comment on above: Performed By: #### E RUR #### [facility] [address] [place] [address] Dr. Meron Gentile UR MICRO IND NOT INDICATED Normal [facility] Comment on above: Performed By: #### E RUR #### [facility] [address] [place] [address] Dr. Meron Gentile Urobilinogen Qn (U) 0.2 {Roel'U}/dL Normal 0.2 - 1. 0 [facility] Comment on above: Performed By: #### E RUR #### [facility] [address] [place] [address] Dr. Meron Gentile PROF CHEM 8 (BAS METB)on Anion gap [Moles/Vol] 11.3 mmol/L Normal [facility] Comment on above: Performed By: #### B MP, CRP #### [facility] [address] [place] [address] Dr. Meron Gentile Calcium [Mass/Vol] 8.9 mg/dL Normal 8.5-10.1 [facility] Comment on above: Performed By: #### B MP, CRP #### [facility] [address] [place] [address] Dr. Meron Gentile Chloride [Moles/Vol] 102 mmol/L Normal 98-107 [facility] Comment on above: Performed By: #### B MP, CRP #### [facility] [address] [place] [address] Dr. Meron Gentile CO2 [Moles/Vol] 27.5 mmol/L Normal 21.0-32.0 [facility] Comment on above: Performed By: #### B MP, CRP #### [facility] [address] [place] [address] Dr. Meron Gentile Creatinine [Mass/Vol] 0.67 mg/dL Critically low 0.70-1.30 [facility] Comment on above: Performed By: #### B MP, CRP #### [facility] [address] [place] [address] Dr. Meron Gentile EGFR-AF CZECH >60 Normal >=60 [facility] Comment on above: Performed By: #### B MP, CRP #### [facility] [address] [place] [address] Dr. Meron Gentile EGFR-NON AF CZECH >60 Normal >=60 [facility] Comment on above: Performed By: #### B MP, CRP #### [facility] [address] [address] [address] Meron Gentile Glucose [Mass/Vol] 117 mg/dL Critically high 74-106 T [facility] Comment on above: Performed By: #### B MP, CRP #### [facility] [address] [address] [address] Meron Gentile Potassium [Moles/Vol] 3.8 mmol/L Normal 3.5-5.1 [facility] Comment on above: Performed By: #### B MP, CRP #### [facility] [address] [address] [address] Meron Gentile Sodium [Moles/Vol] 137 mmol/L Normal 136-145 [facility] Comment on above: Performed By: #### B MP, CRP #### [facility] [address] [address] [address] Meron Gentile Urea nitrogen [Mass/Vol] 12.0 mg/dL Normal 7.0-18.0 [facility] Comment on above: Performed By: #### B MP, CRP #### [facility] [address] [address] [address] Meron Gentile Urea nitrogen/Creatinine [Mass ratio] 17.9 mg/mg Normal [facility] Comment on above: Performed By: #### B MP, CRP #### [facility] [address] [address] [address] Meron Gentile XR KNEE LT 4V [...] by: JAY KATZ Date: 2022-07-28 21:39 [facility] Tele[facility] (PSYRMN) BISHNU COLES ([id number]) 1980 M Date Time Provider Department 07/18/22 MELLY NEWTON PSYRMN During your visit today, we recorded the following information about you: Jazmin Rangel Adm 07/18/2022 4:11 PM Signed Pharmacy left a voicemail stating they need Dr. Newton to call back and verify Seroquel Dosage. Jazmin Rangel V Belt Coverer II Melly Newton MD 07/21/2022 6:32 PM [...] and PS 4-8cmh2O. His DME company is [employer] , new mask to fit patient preference, [...] (FLONASE) 50 mcg/actuation nasal spray Use 1 Clinton in each nostril twice daily. - albuterol [...] Encounter Status:Closed by ANGELITO RIDDLE on 07/29/22 [facility] Leela 07-09-2022 CNPN Telephone (NE50MN) BISHNU COLES ([id number]) 1980 Date Time Provider Department 07/09/22 LINO MENDIOLA NE50MN During your visit today, we recorded the following information about you: Stephany Cifuentes PSS 07/09/2022 10:46 AM Signed General call : Full name of person calling: Bishnu Coles Relationship to patient: self Phone # : [phone] Reason for call: having real bad headaches, and having speech problems Patient of Dr. 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 His DME company is [employer] , [employer] mask to fit patient preference, ramp, humidification and unlimited supplies Ple (more content not included)... Normal [facility] CBC AUTO DIFFon 01-13-2022 BASO # 0.1 103/ul Normal 0.0-0.1 [facility] Comment on above: Performed By: #### C BC #### [facility] [address] [address] [address] Meron Gentile Basophils/100 WBC (Bld) 0.3 % Normal 0.2-2.0 [facility] Comment on above: Performed By: #### C BC #### [facility] [address] [address] [address] Meron Gentile EO # 0.0 103/ul Normal 0.0-0.7 [facility] Comment on above: Performed By: #### C BC #### [facility] [address] [place] [address] Dr. Meron Gentile Eosinophils/100 WBC (Bld) 0.1 % Critically low 0.9-7.0 [facility] Comment on above: Performed By: #### C BC #### [facility] [address] [place] [address] Dr. Meron Gentile Erythrocyte distribution width (RBC) [Ratio] 12.4 % Normal 11.0-15.0 [facility] Comment on above: Performed By: #### C BC #### [facility] [address] [place] [address] Dr. Meron Gentile Hematocrit (Bld) [Volume fraction] 44.3 % Normal 42.0-54.0 [facility] Comment on above: Performed By: #### C BC #### [facility] [address] [address] [address] Meron Gentile Hemoglobin (Bld) [Mass/Vol] 15.0 g/dL Normal 14.0-18.0 [facility] Comment on above: Performed By: #### C BC #### [facility] [address] [place] [address] Dr. Meron Gentile IG # 0.28 10e3/ul Critically high 0.00-0.03 [facility] Comment on above: Performed By: #### C BC #### [facility] [address] [place] [address] Dr. Meron Gentile IG % 1.7 % Critically high 0.0-0.5 [facility] Comment on above: Performed By: #### C BC #### [facility] [address] [place] [address] Dr. Meron Gentile LYMPH # 3.4 103/ul Normal 1.2-3.8 [facility] Comment on above: Performed By: #### C BC #### [facility] [address] [place] [address] Dr. Meron Gentile Lymphocytes/100 WBC (Bld) 20.2 % Critically low 20.5-60.0 [facility] Comment on above: Performed By: #### C BC #### [facility] [address] [place] [address] Dr. Meron Gentile MANUAL DIFF REQ NO Normal [facility] Comment on above: Performed By: #### C BC #### [facility] [address] [place] [address] Dr. Meron Gentile MCH (RBC) [Entitic mass] 29.2 pg Normal 25.9-34.0 [facility] Comment on above: Performed By: #### C BC #### [facility] [address] [place] [address] Dr. Meron Gentile MCHC (RBC) [Mass/Vol] 33.9 g/dL Normal 29.9-35.2 [facility] Comment on above: Performed By: #### C BC #### [facility] [address] [place] [address] Dr. Meron Gentile MCV (RBC) [Entitic vol] 86.4 fL Normal 80.0-94.0 [facility] [facility] Comment on above: Performed By: #### C BC #### [facility] [address] [place] [address] Dr. Meron Gentile MONO # 1.3 103/ul Critically high 0.3-0.8 [facility] Comment on above: Performed By: #### C BC #### [facility] [address] [place] [address] Dr. Meron Gentile Monocytes/100 WBC (Bld) 7.5 % Normal 1.7-12.0 [facility] Comment on above: Performed By: #### C BC #### [facility] [address] [place] [address] Dr. Meron Gentile NEUT # 11.7 103/ul Critically high 1.4-6.5 [facility] Comment on above: Performed By: #### C BC #### [facility] [address] [place] [address] Dr. Meron Gentile Neutrophils/100 WBC (Bld) 70.2 % Normal 43.0-75.0 [facility] Comment on above: Performed By: #### C BC #### [facility] [address] [place] [address] Dr. Meron Gentile Platelet mean volume (Bld) [Entitic vol] 8.6 fL Critically low 9.5-13.5 [facility] Comment on above: Performed By: #### C BC #### [facility] [address] [place] [address] Dr. Meron Gentile PLT 369 103/ul Normal 150-450 [facility] Comment on above: Performed By: #### C BC #### [facility] [address] [place] [address] Dr. Meron Gentile RBC 5.13 106/ul Normal 4.70-6.10 [facility] Comment on above: Performed By: #### C BC #### [facility] [address] [place] [address] Dr. Meron Gentile WBC 16.7 103/ul Critically high 4.0-11.0 [facility] Comment on above: Performed By: #### C BC #### [facility] [address] [place] [address] Dr. Meron Gentile PROF 14(COMP METB)on 022 Albumin [Mass/Vol] 3.6 g/dL Normal 3.4-5.0 [facility] Comment on above: Performed By: #### B MP, CRP #### [facility] [address] [address] [address] Meron Gentile Albumin/Globulin [Mass ratio] 1.1 {ratio} Normal [facility] Comment on above: Performed By: #### B MP, CRP #### [facility] [address] [address] [address] Meron Gentile ALP [Catalytic activity/Vol] 59 U/L Normal 46-116 [facility] Comment on above: Performed By: #### B MP, CRP #### [facility] [address] [address] [address] Meron Gentile ALT [Catalytic activity/Vol] 36 U/L Normal 16-63 [facility] Comment on above: Performed By: #### B MP, CRP #### [facility] [address] [place] [address] Dr. Meron Gentile Anion gap [Moles/Vol] 10.2 mmol/L Normal [facility] Comment on above: Performed By: #### B MP, CRP #### [facility] [address] [address] [address] Meron Gentile AST [Catalytic activity/Vol] 11 U/L Critically low 15-37 [facility] Comment on above: Performed By: #### B MP, CRP #### [facility] [address] [address] [address] Meron Gentile Bilirubin [Mass/Vol] 0.4 mg/dL Normal 0.2-1.0 [facility] Comment on above: Performed By: #### B MP, CRP #### [facility] [address] [address] [address] Meron Gentile Calcium [Mass/Vol] 8.6 mg/dL Normal 8.5-10.1 [facility] Comment on above: Performed By: #### B MP, CRP #### [facility] [address] [place] [address] Dr. Meron Gentile Chloride [Moles/Vol] 99 mmol/L Normal 98-107 [facility] Comment on above: Performed By: #### B MP, CRP #### [facility] [address] [address] [address] Meron Gentile CO2 [Moles/Vol] 28.2 mmol/L Normal 21.0-32.0 [facility] Comment on above: Performed By: #### B MP, CRP #### [facility] [address] [address] [address] Meron Gentile Creatinine [Mass/Vol] 0.77 mg/dL Normal 0.70-1.30 [facility] Comment on above: Performed By: #### B MP, CRP #### [facility] [address] [address] [address] Meron Gentile EGFR-AF CZECH >60 Normal >=60 [facility] Comment on above: Performed By: #### B MP, CRP #### [facility] [address] [place] [address] Dr. Meron Gentile EGFR-NON AF CZECH >60 Normal >=60 [facility] Comment on above: Performed By: #### B MP, CRP #### [facility] [address] [place] [address] Dr. Meron Gentile Globulin (S) [Mass/Vol] 3.2 g/dL Normal [facility] Comment on above: Performed By: #### B MP, CRP #### [facility] [address] [place] [address] Dr. Meron Gentile Glucose [Mass/Vol] 107 mg/dL Critically high 74-106 [facility] Comment on above: Performed By: #### B MP, CRP #### [facility] [address] [address] [address] Meron Gentile Potassium [Moles/Vol] 3.4 mmol/L Critically low 3.5-5.1 [facility] Comment on above: Performed By: #### B MP, CRP #### [facility] [address] [address] [address] Meron Gentile Protein [Mass/Vol] 6.8 g/dL Normal 6.4-8.[address] [facility] Comment on above: Performed By: #### B MP, CRP #### [facility] [address] [address] [address] Meron Gentile Sodium [Moles/Vol] 134 mmol/L Critically low 136-145 [facility] Comment on above: Performed By: #### B MP, CRP #### [facility] [address] [place] [address] Dr. Meron Gentile Urea nitrogen [Mass/Vol] 10.0 mg/dL Normal 7.0-18.0 [facility] Comment on above: Performed By: #### B MP, CRP #### [facility] [address] [place] [address] Dr. Meron Gentile Urea nitrogen/Creatinine [Mass ratio] 13.0 mg/mg Normal [facility] Comment on above: Performed By: #### B MP, CRP #### [facility] [address] [place] [address] Dr. Meron Gentile TROPONIN, HIGH SENSITIVITYon 01-13-2022 HSTROP 5.3 pg/mL Normal 4.0-76.1 [facility] Comment on above: Result Comment: CUT- OFF POINTS HAVE BEEN ESTABLISHED BASED ON THE FOURTH UNIVERSAL DEFINITIONS OF MYOCARDIAL INFARCTION. THE UPPER REFERENCE LIMIT (URL) OF TROPONIN, DEFINED THE 99TH PERCENTILE OF cTnI DISTRIBUTION IN A REFERENCE POPULATION, HAS BEEN CONFIRMED THE DECISION THRESHOLD FOR GA DIAGNOSIS. Performed By: #### B LEW, CRP #### [facility] [address] [place] [address] Dr. Meron Gentile XR CHEST 1 Von [...] by: YAMILETH LEE Date: 2022-01-12 22:48 Normal [facility] No Panel Informationon 01-07 [facility] CARDIAC TYLER 3-6on 2 CK [Catalytic activity/Vol] 98 U/L Normal 39-308 [facility] Comment on above: Performed By: #### C MREP #### [facility] [address] [address] [address] Meron Gentile CK.MB [Mass/Vol] 1.08 ng/mL Normal <=3.60 [facility] Comment on above: Performed By: #### C MREP #### [facility] [address] [address] [address] Meron Gentile HSTROP 6.2 pg/mL Normal 4.0-76.1 [facility] Comment on above: Result Comment: CUT- OFF POINTS HAVE BEEN ESTABLISHED BASED ON THE FOURTH UNIVERSAL DEFINITIONS OF MYOCARDIAL INFARCTION. THE UPPER REFERENCE LIMIT (URL) OF TROPONIN, DEFINED THE 99TH PERCENTILE OF cTnI DISTRIBUTION IN A REFERENCE POPULATION, HAS BEEN CONFIRMED THE DECISION THRESHOLD FOR GA DIAGNOSIS. Performed By: #### C MREP #### [facility] [address] [address] [address] Meron Gentile XR CHEST 1 Von [...] NADIRA MARTINI Date: 2022-01-05 22:18 Normal [facility] CARDIAC TYLER ADMITon 022 CK [Catalytic activity/Vol] 107 U/L Normal 39-308 [facility] Comment on above: Performed By: #### C MADM, BMP #### [facility] [address] [address] [address] Meron Gentile CK.MB [Mass/Vol] 1.26 ng/mL Normal <=3.60 [facility] Comment on above: Performed By: #### C MADM, BMP #### [facility] [address] [address] [address] Meron Gentile HSTROP 6.3 pg/mL Normal 4.0-76.1 [facility] Comment on above: Result Comment: CUT- OFF POINTS HAVE BEEN ESTABLISHED BASED ON THE FOURTH UNIVERSAL DEFINITIONS OF MYOCARDIAL INFARCTION. THE UPPER REFERENCE LIMIT (URL) OF TROPONIN, DEFINED THE 99TH PERCENTILE OF cTnI DISTRIBUTION IN A REFERENCE POPULATION, HAS BEEN CONFIRMED THE DECISION THRESHOLD FOR GA DIAGNOSIS. Performed By: #### C MADM, BMP #### [facility] [address] [place] [address] Dr. Meron Gentile PERLA 41 ng/mL Normal 16-96 [facility] Comment on above: Performed By: #### C MADM, BMP #### [facility] [address] [place] [address] Dr. Meron Gentile CBC AUTO DIFFon 01-05-2022 BASO # 0.0 103/ul Normal 0.0-0.1 [facility] Comment on above: Performed By: #### B MP, CRP #### [facility] [address] [place] [address] Dr. Meron Gentile Basophils/100 WBC (Bld) 0.5 % Normal 0.2-2.0 [facility] Comment on above: Performed By: #### B MP, CRP #### [facility] [address] [place] [address] Dr. Meron Gentile EO # 0.1 103/ul Normal 0.0-0.7 [facility] Comment on above: Performed By: #### B MP, CRP #### [facility] [address] [place] [address] Dr. Meron Gentile Eosinophils/100 WBC (Bld) 1.2 % Normal 0.9-7.0 [facility] Comment on above: Performed By: #### B MP, CRP #### [facility] [address] [place] [address] Dr. Meron Gentile Erythrocyte distribution width (RBC) [Ratio] 12.2 % Normal 11.0-15.0 [facility] Comment on above: Performed By: #### B MP, CRP #### [facility] [address] [place] [address] Dr. Meron Gentile Hematocrit (Bld) [Volume fraction] 45.6 % Normal 42.0-54.0 [facility] Comment on above: Performed By: #### B MP, CRP #### [facility] [address] [address] [address] Meron Gentile Hemoglobin (Bld) [Mass/Vol] 15.2 g/dL Normal 14.0-18.0 [facility] Comment on above: Performed By: #### B MP, CRP #### [facility] [address] [address] [address] Meron Gentile IG # 0.02 10e3/ul Normal 0.00-0.03 [facility] Comment on above: Performed By: #### B MP, CRP #### [facility] [address] [address] [address] Meron Gentile IG % 0.2 % Normal 0.0-0.5 [facility] Comment on above: Performed By: #### B MP, CRP #### [facility] [address] [place] [address] Dr. Meron Gentile LYMPH # 1.6 103/ul Normal 1.2-3.8 [facility] Comment on above: Performed By: #### B MP, CRP #### [facility] [address] [address] [address] Meron Gentile Lymphocytes/100 WBC (Bld) 18.9 % Critically low 20.5-60.0 [facility] Comment on above: Performed By: #### B MP, CRP #### [facility] [address] [address] [address] Meron Gentile MANUAL DIFF REQ NO Normal [facility] Comment on above: Performed By: #### B MP, CRP #### [facility] [address] [address] [address] Meron Gentile MCH (RBC) [Entitic mass] 29.0 pg Normal 25.9-34.0 [facility] Comment on above: Performed By: #### B MP, CRP #### [facility] [address] [place] [address] Dr. Meron Gentile MCHC (RBC) [Mass/Vol] 33.3 g/dL Normal 29.9-35.2 [facility] Comment on above: Performed By: #### B MP, CRP #### [facility] [address] [address] [address] Meron Gentile MCV (RBC) [Entitic vol] 86.9 fL Normal 80.0-94.0 [facility] Comment on above: Performed By: #### B MP, CRP #### [facility] [address] [place] [address] Dr. Meron Gentile MONO # 1.1 103/ul Critically high 0.3-0.8 [facility] Comment on above: Performed By: #### B MP, CRP #### [facility] [address] [place] [address] Dr. Meron Gentile Monocytes/100 WBC (Bld) 12.3 % Critically high 1.7-12.0 [facility] Comment on above: Performed By: #### B MP, CRP #### [facility] [address] [place] [address] Dr. Meron Gentile NEUT # 5.7 103/ul Normal 1.4-6.5 [facility] Comment on above: Performed By: #### B MP, CRP #### [facility] [address] [place] [address] Dr. Meron Gentile Neutrophils/100 WBC (Bld) 66.9 % Normal 43.0-75.0 [facility] Comment on above: Performed By: #### B MP, CRP #### [facility] [address] [place] [address] Dr. Meron Gentile Platelet mean volume (Bld) [Entitic vol] 8.6 fL Critically low 9.5-13.5 [facility] Comment on above: Performed By: #### B MP, CRP #### [facility] [address] [place] [address] Dr. Meron Gentile PLT 279 103/ul Normal 150-450 [facility] Comment on above: Performed By: #### B MP, CRP #### [facility] [address] [place] [address] Dr. Meron Gentile RBC 5.25 106/ul Normal 4.70-6.10 [facility] Comment on above: Performed By: #### B MP, CRP #### [facility] [address] [place], [place] [address] Dr. Meron Gentile WBC 8.6 103/ul Normal 4.0-11.0 [facility] Comment on above: Performed By: #### B MP, CRP #### [facility] [address] [place], [place] [address] Dr. Meron Gentile Covid-19 PCR ([facility]on 12-17 SARS-CoV-2 (COVID-19) RNA SULEIMAN+probe Ql (Unsp spec) Not detected Normal NOT DETECTED [facility] Comment on above: Result Comment: When [...] for this test is supported by the Environmental Services Technician of Health and Human Service's declaration that [...] Performed By: #### C MADM, BMP #### [facility] [address] [place], [place] [address] Dr. Meron Gentile D-DIMERon 01-05-2022 D-DIMER 0.19 mg/L FEU Normal <=0.59 [facility] Comment on above: Performed By: #### D DIM #### [facility] [address] [place], [place] [address] Dr. Meron Gentile D-DIMER COMMENTS SEE BELOW Normal [facility] Comment on above: Result Comment: Incr eases [...] hospitalization. Performed By: #### D DIM #### [facility] [address] [place] [address] Dr. Meron Gentile INFLUENZA A AND B AGon 01-05 INFLUENZA A AG Negative Normal NEGATIVE SEE COMMENT [facility] Comment on above: Performed By: #### C CLEMENCIA, BMP #### [facility] [address] [place] [address] Dr. Meron Gentile INFLUENZA B AG Negative Normal NEGATIVE SEE COMMENT [facility] Comment on above: Performed By: #### C CLEMENCIA, BMP #### [facility] [address] [place] [address] Dr. Meron Gentile INTERNAL CONTROLS Within Normal Limits Normal Wi thin Normal Limits [facility] Comment on above: Performed By: #### C CLEMENCIA, BMP #### [facility] [address] [place] [address] Dr. Meron Gentile PROF CHEM 8 (BAS METB)on Anion gap [Moles/Vol] 9.3 mmol/L Normal [facility] Comment on above: Performed By: #### C CLEMENCIA, BMP #### [facility] [address] [place] [address] Dr. Meron Gentile Calcium [Mass/Vol] 9.1 mg/dL Normal 8.5-10.1 [facility] Comment on above: Performed By: #### C CLEMENCIA, BMP #### [facility] [address] [place] [address] Dr. Meron Gentile Chloride [Moles/Vol] 97 mmol/L Critically low 98-107 [facility] Comment on above: Performed By: #### C CLEMENCIA, BMP #### [facility] [address] [place] [address] Dr. Meron Gentile CO2 [Moles/Vol] 30.6 mmol/L Normal 21.0-32.0 [facility] Comment on above: Performed By: #### C MADM, BMP #### [facility] [address] [place] [address] Dr. Meron Gentile Creatinine [Mass/Vol] 0.77 mg/dL Normal 0.70-1.30 [facility] Comment on above: Performed By: #### C MADM, BMP #### [facility] [address] [address] [address] Meron Gentile EGFR-AF CZECH >60 Normal >=60 [facility] Comment on above: Performed By: #### C DONNIEM, BMP #### [facility] [address] [place] [address] Dr. Meron Gentile EGFR-NON AF CZECH >60 Normal >=60 [facility] Comment on above: Performed By: #### C DONNIEM, BMP #### [facility] [address] [place] [address] Dr. Meron Gentile Glucose [Mass/Vol] 104 mg/dL Normal 74-106 [facility] Comment on above: Performed By: #### C DONNIEM, BMP #### [facility] [address] [place] [address] Dr. Meron Gentile Potassium [Moles/Vol] 3.9 mmol/L Normal 3.5-5.1 [facility] Comment on above: Performed By: #### C DONNIEM, BMP #### [facility] [address] [place] [address] Dr. Meron Gentile Sodium [Moles/Vol] 133 mmol/L Critically low 136-145 [facility] Comment on above: Performed By: #### C MADM, BMP #### [facility] [address] [place] [address] Dr. Meron Gentile Urea nitrogen [Mass/Vol] 8.0 mg/dL Normal 7.0-18.0 [facility] Comment on above: Performed By: #### C MADM, BMP #### [facility] [address] [place] [address] Dr. Meron Gentile Urea nitrogen/Creatinine [Mass ratio] 10.4 mg/mg Normal [facility] Comment on above: Performed By: #### C MADM, BMP #### [facility] [address] [place] [address] Dr. Meron Gentile INSULINon 09-26-2021 Insulin 14.8 uIU/mL Normal 2.6-24.9 [facility] Comment on above: Performed By: #### I NSULIN #### [facility] [address] [place] [address] Dr. Meron Gentile CBC AUTO DIFFon 09-25-2021 BASO # 0.1 103/ul Normal 0.0-0.1 [facility] Comment on above: Performed By: #### C BC #### [facility] [address] [place] [address] Dr. Meron Gentile Basophils/100 WBC (Bld) 0.7 % Normal 0.2-2.0 [facility] Comment on above: Performed By: #### C BC #### [facility] [address] [place] [address] Dr. Meron Gentile EO # 0.3 103/ul Normal 0.0-0.7 [facility] Comment on above: Performed By: #### C BC #### [facility] [address] [place] [address] Dr. Meron Gentile Eosinophils/100 WBC (Bld) 3.8 % Normal 0.9-7.0 [facility] Comment on above: Performed By: #### C BC #### [facility] [address] [place] [address] Dr. Meron Gentile Erythrocyte distribution width (RBC) [Ratio] 12.2 % Normal 11.0-15.0 [facility] Comment on above: Performed By: #### C BC #### [facility] [address] [place] [address] Dr. Meron Gentile Hematocrit (Bld) [Volume fraction] 46.5 % Normal 42.0-54.0 [facility] Comment on above: Performed By: #### C BC #### [facility] [address] [place] [address] Dr. Meron Gentile Hemoglobin (Bld) [Mass/Vol] 15.5 g/dL Normal 14.0-18.0 [facility] Comment on above: Performed By: #### C BC #### [facility] [address] [place] [address] Dr. Meron Gentile IG # 0.04 10e3/ul Critically high 0.00-0.03 [facility] Comment on above: Performed By: #### C BC #### [facility] [address] [place] [address] Dr. Meron Gentile IG % 0.5 % Normal 0.0-0.5 [facility] Comment on above: Performed By: #### C BC #### [facility] [address] [place] [address] Dr. Meron Gentile LYMPH # 2.4 103/ul Normal 1.2-3.8 [facility] Comment on above: Performed By: #### C BC #### [facility] [address] [place] [address] Dr. Meron Gentile Lymphocytes/100 WBC (Bld) 31.5 % Normal 20.5-60.0 [facility] Comment on above: Performed By: #### C BC #### [facility] [address] [place] [address] Dr. Meron Gentile MANUAL DIFF REQ NO Normal [facility] Comment on above: Performed By: #### C BC #### [facility] [address] [place] [address] Dr. Meron Gentile MCH (RBC) [Entitic mass] 29.1 pg Normal 25.9-34.0 [facility] Comment on above: Performed By: #### C BC #### [facility] [address] [place] [address] Dr. Meron Gentile MCHC (RBC) [Mass/Vol] 33.3 g/dL Normal 29.9-35.2 [facility] Comment on above: Performed By: #### C BC #### [facility] [address] [place] [address] Dr. Meron Gentile MCV (RBC) [Entitic vol] 87.2 fL Normal 80.0-94.0 [facility] Comment on above: Performed By: #### C BC #### [facility] [address] [place] [address] Dr. Meron Gentile MONO # 0.6 103/ul Normal 0.3-0.8 [facility] Comment on above: Performed By: #### C BC #### [facility] [address] [place] [address] Dr. Meron Gentile Monocytes/100 WBC (Bld) 7.5 % Normal 1.7-12.0 [facility] Comment on above: Performed By: #### C BC #### [facility] [address] [place] [address] Dr. Meron Gentile NEUT # 4.3 103/ul Normal 1.4-6.5 [facility] Comment on above: Performed By: #### C BC #### [facility] [address] [place] [address] Dr. Meron Gentile Neutrophils/100 WBC (Bld) 56.0 % Normal 43.0-75.0 [facility] Comment on above: Performed By: #### C BC #### [facility] [address] [place] [address] Dr. Meron Gentile Platelet mean volume (Bld) [Entitic vol] 8.7 fL Critically low 9.5-13.5 [facility] Comment on above: Performed By: #### C BC #### [facility] [address] [place] [address] Dr. Meron Gentile PLT 290 103/ul Normal 150-450 [facility] Comment on above: Performed By: #### C BC #### [facility] [address] [place] [address] Dr. Meron Gentile RBC 5.33 106/ul Normal 4.70-6.10 [facility] Comment on above: Performed By: #### C BC #### [facility] [address] [place] [address] Dr. Meron Gentile WBC 7.7 103/ul Normal 4.0-11.0 [facility] Comment on above: Performed By: #### C #### [facility] [address] [address] [address] Meron Gentile ECHOCARDIO M/2D COMPLETEon 0 09-25-2021 ECHOCARDIO M/2D COMPLETE Patient: BISHNU COLES Exam Date: 09/25/2021 : 1980 Gender:M Ordering : DR ERLINDA NUNEZ . Admission #: [id number] Family : Order #: [id number] CLICK HERE TO VIEW EXAM ECHOCARDIOGRAM REPORT [...] Area(A4C): 23.10 cm2 Left Atrium Systolic Volume(A2C): 79022 mm3 Left Atrium Systolic Volume(A4C): 38986 mm3 Mitral Valve MV E to A [...] Perez M.D. on 09/25/2021 at 16:59 Normal [facility] FREE THYROXINE INDEX T7on FTI 2.58 Normal 1.30-4.50 [facility] Comment on above: Performed By: #### B MP, CRP #### [facility] [address] [place] [address] Dr. Meron Gentile T3U 34.0 % Normal 33.0-40.0 [facility] Comment on above: Performed By: #### B MP, CRP #### [facility] [address] [address] [address] Meron Gentile T4 [Mass/Vol] 7.60 ug/dL Normal 4.50-12.10 [facility] Comment on above: Performed By: #### B MP, CRP #### [facility] [facility] [address] [address] [address] Meron Gentile GLYCOHEMOGLOBIN A1Con 2021 ADA RECOMMENDATION SEE BELOW Normal [facility] Comment on above: Result Comment: ADA RECOMMENDED LIMIT 4.0 - 6.0 ADA THERAPEUTIC TARGET < 7.0 ACTION SUGGESTED > 7.0 Performed By: #### C CLEMENCIA, BMP #### [facility] [address] [address] [address] Meron Gentile Glucose [Mass/Vol] 111 mg/dL Normal [facility] Comment on above: Performed By: #### C CLEMENCIA, BMP #### [facility] [address] [address] [address] Meron Gentile HbA1c (Bld) [Mass fraction] 5.5 % Normal 4.5-6.2 [facility] Comment on above: Performed By: #### C CLEMENCIA, BMP #### [facility] [address] [place] [address] Dr. Meron Gentile LIPID PROFILEon 09-25-2021 CHOL-HDL RATIO NORM SEE BELOW Normal [facility] Comment on above: Result Comment: 3.3 - 4.4 LOW RISK 4.4 - 7.1 AVERAGE RISK 7.1 - 11.0 MODERATE RISK >11.0 HIGH RISK Performed By: #### B MP, CRP #### [facility] [address] [address] [address] Meron Gentile Cholesterol [Mass/Vol] 257 mg/dL Critically high <=200 [facility] Comment on above: Performed By: #### B MP, CRP #### [facility] [address] [address] [address] Meron Gentile Cholesterol in HDL [Mass/Vol] 41 mg/dL Normal 40-60 [facility] Comment on above: Performed By: #### B MP, CRP #### [facility] [address] [address] [address] Meron Gentile Cholesterol in LDL [Mass/Vol] 171.6 mg/dL Normal [facility] Comment on above: Performed By: #### B MP, CRP #### [facility] [address] [address] [address] Meron Gentile Cholesterol.total/Cho lesterol in HDL [Mass ratio] 6.3 {ratio} Normal [facility] Comment on above: Performed By: #### B MP, CRP #### [facility] [address] [address] [address] Meron Gentile HDL NORMAL > or = 60 mg/dl - LO W CARDIOVASCULAR RISK <40 mg/dl - HIGH CARDIOVASCULAR RISK Normal [facility] Comment on above: Performed By: #### B MP, CRP #### [facility] [address] [address] [address] Meron Gentile LDL CALC NORMAL SEE BELOW Normal [facility] Comment on above: Result Comment: <100 mg/dl OPTIMAL 100 - 129 mg/dl NEAR OR ABOVE OPTIMAL 130 - 159 mg/dl BORDERLINE HIGH 160 - 189 mg/dl HIGH >190 mg/dl VERY HIGH Performed By: #### B MP, CRP #### [facility] [address] [place] [address] Dr. Meron Gentile Triglyceride [Mass/Vol] 222 mg/dL Critically high <=150 [facility] Comment on above: Performed By: #### B MP, CRP #### [facility] [address] [address] [address] Meron Gentile VLDL CALC 44.4 mg/dL Normal [facility] Comment on above: Performed By: #### B MP, CRP #### [facility] [address] [address] [address] Meron Gentile PROF 14(COMP METB)on 022 Albumin [Mass/Vol] 3.7 g/dL Normal 3.4-5.0 [facility] Comment on above: Performed By: #### B MP, CRP #### [facility] [address] [address] [address] Meron Gentile Albumin/Globulin [Mass ratio] 1.1 {ratio} Normal [facility] Comment on above: Performed By: #### B MP, CRP #### [facility] [address] [address] [address] Meron Gentile ALP [Catalytic activity/Vol] 55 U/L Normal 46-116 [facility] Comment on above: Performed By: #### B MP, CRP #### [facility] [address] [address] [address] Meron Gentile ALT [Catalytic activity/Vol] 60 U/L Normal 16-63 [facility] Comment on above: Performed By: #### B MP, CRP #### [facility] [address] [address] [address] Meron Gentile Anion gap [Moles/Vol] 11.5 mmol/L Normal [facility] Comment on above: Performed By: #### B MP, CRP #### [facility] [address] [address] [address] Meron Gentile AST [Catalytic activity/Vol] 19 U/L Normal 15-37 [facility] Comment on above: Performed By: #### B MP, CRP #### [facility] [address] [place] [address] Dr. Meron Gentile Bilirubin [Mass/Vol] 0.4 mg/dL Normal 0.2-1.0 [facility] Comment on above: Performed By: #### B MP, CRP #### [facility] [address] [address] [address] Meron Gentile Calcium [Mass/Vol] 9.0 mg/dL Normal 8.5-10.1 [facility] Comment on above: Performed By: #### B MP, CRP #### [facility] [address] [address] [address] Meron Gentile Chloride [Moles/Vol] 100 mmol/L Normal 98-107 [facility] Comment on above: Performed By: #### B MP, CRP #### [facility] [address] [address] [address] Meron Gentile CO2 [Moles/Vol] 29.4 mmol/L Normal 21.0-32.0 [facility] Comment on above: Performed By: #### B MP, CRP #### [facility] [address] [address] [address] Meron Gentile Creatinine [Mass/Vol] 0.80 mg/dL Normal 0.70-1.30 [facility] Comment on above: Performed By: #### B MP, CRP #### [facility] [address] [address] [address] Meron Gentile EGFR-AF CZECH >60 Normal >=60 [facility] Comment on above: Performed By: #### B MP, CRP #### [facility] [address] [address] [address] Meron Gentile EGFR-NON AF CZECH >60 Normal >=60 [facility] Comment on above: Performed By: #### B MP, CRP #### [facility] [address] [address] [address] Meron Gentile Globulin (S) [Mass/Vol] 3.3 g/dL Normal [facility] Comment on above: Performed By: #### B MP, CRP #### [facility] [address] [place] [address] Dr. Meron Gentile Glucose [Mass/Vol] 124 mg/dL Critically high 74-106 [facility] Comment on above: Performed By: #### B MP, CRP #### [facility] [address] [address] [address] Meron Gentile Potassium [Moles/Vol] 3.9 mmol/L Normal 3.5-5.1 [facility] Comment on above: Performed By: #### B MP, CRP #### [facility] [address] [place] [address] Dr. Meron Gentile Protein [Mass/Vol] 7.0 g/dL Normal 6.4-8.[address] [facility] Comment on above: Performed By: #### B MP, CRP #### [facility] [address] [address] [address] Meron Gentile Sodium [Moles/Vol] 137 mmol/L Normal 136-145 [facility] Comment on above: Performed By: #### B MP, CRP #### [facility] [address] [address] [address] Meron Gentile Urea nitrogen [Mass/Vol] 10.0 mg/dL Normal 7.0-18.0 [facility] Comment on above: Performed By: #### B MP, CRP #### [facility] [address] [place] [address] Dr. Meron Gentile Urea nitrogen/Creatinine [Mass ratio] 12.5 mg/mg Normal [facility] Comment on above: Performed By: #### B MP, CRP #### [facility] [address] [place] [address] Dr. Meron Gentile TSHon 09-25-2021 TSH 4.858 uIU/mL Critically high 0.358-3.740 [facility] Comment on above: Performed By: #### B MP, CRP #### [facility] [address] [place] [address] Dr. Meron Gentile TSH RANGE SEE BELOW Normal [facility] Comment on above: Result Comment: <0.3 4 UIU/ml HYPERTHYROID 0.34-5.60 UIU/ml EUTHYROID >5.60 UIU/ml HYPOTHYROID Performed By: #### B MP, CRP #### [facility] [address] [place] [address] Dr. Meron Gentile URIC ACID SERUMon 09-25-2021 Urate [Mass/Vol] 5.6 mg/dL Normal 3.5-7.2 [facility] Comment on above: Performed By: #### B MP, CRP #### [facility] [address] [place] [address] Dr. Meron Gentile US CAROTID ART BILon [...] by: MIRIAM DIAZ Date: 2021-09-25 10:43 Normal [facility] XR HUMERUS LT MIN 2Von 09-14 XR HUMERUS LT MIN 2V EXAM: XR HUMERUS LT MIN 2V HISTORY: Pain COMPARISON: None. TECHNIQUE: 2 views of the left humerus FINDINGS: No acute fracture seen. The soft tissues appear unremarkable. 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 Vital Signs Date Time Vital Sign Value Performing Clinician Facility 04-22-2023 21:28-0500 Body temperature 97.52 [degF] Kaylinn Dokken [facility] 04-22-2023 21:28-0500 Diastolic blood pressure 70 mm[Hg] Kaylinn Dokken [facility] 04-22-2023 21:28-0500 Heart rate 100 /min Kaylinn Dokken [facility] 04-22-2023 21:28-0500 Respiratory rate 18 /min Pharmacopeiaylinn Dokken [facility] 04-22-2023 21:28-0500 SaO2% (BldA) [Mass fraction] 99 % Pharmacopeiaylinn Dokken [facility] 04-22-2023 21:28-0500 Systolic blood pressure 133 mm[Hg] Kaylinn Dokken [facility] 03-04-2023 10:09-0400 Blood Pressure Location Nahed Lue [facility] 03-04-2023 10:09-0400 Diastolic blood pressure 82 mm[Hg] Nahed Lue [facility] 03-04-2023 10:09-0400 Heart rate 78 /min Nahed Lue [facility] 10-18-2023 10:09-0400 Respiratory rate 16 /min Nahed Doran [facility] 03-04-2023 10:09-0400 Systolic blood pressure 124 mm[Hg] Nahed Fowlere [facility] 12-16-2022 14:39-0400 Body height 177.8 cm Lino Mendiola MD Work Phone: [facility] 12-16-2022 14:39-0400 Body weight 95.25 kg Lino Mendiola MD Work Phone: [facility] 12-16-2022 14:39-0400 Diastolic blood pressure 86 mm[Hg] Lino Mendiola MD Work Phone: [facility] 12-16-2022 14:39-0400 Heart rate 83 /min Lino Mendiola MD Work Phone: [facility] 12-16-2022 14:39-0400 SaO2% (BldA) [Mass fraction] 98 % Lino Mendiola MD Work Phone: [facility] 12-16-2022 14:39-0400 Systolic blood pressure 144 mm[Hg] Lino Mendiola MD Work Phone: [facility] 10-29-2022 22:34-0400 Body height 177.8 cm MD Erlinda Nunez Work Phone: [facility] 10-29-2022 22:34-0400 Body temperature 98.2 [degF] MD Erlinda Nunez Work Phone: [facility] 10-29-2022 22:34-0400 Body weight 100.85 kg MD Erlinda Nunez Work Phone: [facility] 10-29-2022 22:34-0400 Diastolic blood pressure 86 mm[Hg] MD Erlinda Nunez Work Phone: [facility] 10-29-2022 22:34-0400 Heart rate 98 /min MD Erlinda Nunez Work Phone: [facility] 10-29-2022 22:34-0400 Respiratory rate 14 /min MD Erlinda Nunez Work Phone: [facility] 10-29-2022 22:34-0400 SaO2% (BldA) [Mass fraction] 100 % MD Erlinda Nunez Work Phone: [facility] 10-29-2022 22:34-0400 Systolic blood pressure 150 mm[Hg] MD Erlinda Nunez Work Phone: [facility] 09-29-2022 13:10-0400 Blood Pressure Location Scott Nassar [facility] 09-29-2022 13:10-0400 Body temperature 98.06 [degF] Scott Nassar [facility] 09-29-2022 13:10-0400 Diastolic blood pressure 88 mm[Hg] Scott Nassar [facility] 09-29-2022 13:10-0400 Heart rate 82 /min Scott Nassar [facility] 09-29-2022 13:10-0400 Mean blood pressure 106 mm[Hg] Scott Nassar [facility] 09-29-2022 13:10-0400 Respiratory rate 16 /min Scott Nassar [facility] 09-29-2022 13:10-0400 SaO2% (BldA) [Mass fraction] 98 % Scott Nassar [facility] 09-29-2022 13:10-0400 Systolic blood pressure 142 mm[Hg] Scott Nassar [facility] 09-29-2022 12:00-0400 Body temperature 97.7 [degF] Scott Nassar [facility] 09-29-2022 12:00-0400 Diastolic blood pressure 84 mm[Hg] Scott Nassar [facility] 09-29-2022 12:00-0400 Heart rate 80 /min Scott Maday [facility] 09-29-2022 12:00-0400 SaO2% (BldA) [Mass fraction] 95 % Scott Maday [facility] 09-29-2022 12:00-0400 Systolic blood pressure 134 mm[Hg] Scott Maday [facility] 09-29-2022 11:51-0400 Body temperature 97.52 [degF] Scott Maday [facility] 09-29-2022 11:51-0400 Diastolic blood pressure 111 mm[Hg] Scott Maday [facility] 09-29-2022 11:51-0400 Heart rate 83 /min Scott Maday [facility] 09-29-2022 11:51-0400 Mean blood pressure 117 mm[Hg] Scott Maday [facility] 09-29-2022 11:51-0400 Respiratory rate 17 /min Scott Maday [facility] 09-29-2022 11:51-0400 SaO2% (BldA) [Mass fraction] 94 % Scott Maday [facility] 09-29-2022 11:51-0400 Systolic blood pressure 129 mm[Hg] Scott Maday [facility] 09-29-2022 11:40-0400 Mean blood pressure 91 mm[Hg] Scott Nassar [facility] 09-29-2022 11:40-0400 Respiratory rate 18 /min Soctt Nassar [facility] 09-29-2022 11:35-0400 Respiratory rate 16 /min Scott Nassar [facility] 09-29-2022 11:26-0400 Body temperature 96.98 [degF] Scott Maday [facility] 09-29-2022 08:31-0400 Blood Pressure Location Scott Nassar [facility] 09-29-2022 08:30-0400 Body temperature 97.52 [degF] Scott Maday [facility] 09-29-2022 08:30-0400 Heart rate 96 /min Scott Maday [facility] 09-29-2022 08:30-0400 Respiratory rate 18 /min Scott Maday [facility] 09-19-2022 13:12-0400 Diastolic blood pressure 86 mm[Hg] Scott Maday [facility] 09-19-2022 13:12-0400 Heart rate 80 /min Scott Maday [facility] 09-19-2022 13:12-0400 Mean blood pressure 100 mm[Hg] Scott Maday [facility] 09-19-2022 13:12-0400 Systolic blood pressure 127 mm[Hg] Scott Maday [facility] 09-19-2022 13:12-0400 Blood Pressure Location Scott Maday [facility] 09-19-2022 13:11-0400 Heart rate 82 /min Scott Maday [facility] 09-19-2022 13:11-0400 SaO2% (BldA) [Mass fraction] 96 % Scott Maday [facility] 09-19-2022 13:11-0400 Respiratory rate 16 /min Scott Maday [facility] 09-19-2022 13:10-0400 Body temperature 98.24 [degF] Scott Nassar [facility] 09-19-2022 13:10-0400 Diastolic blood pressure 88 mm[Hg] Scott Nassar [facility] 09-19-2022 13:10-0400 Mean blood pressure 100 mm[Hg] Scott Nassar [facility] 09-19-2022 13:10-0400 Systolic blood pressure 125 mm[Hg] Scott Nassar [facility] 09-19-2022 13:10-0400 Blood Pressure Location Scott Nassar [facility] 01-07-2022 12:47-0400 Body height 180.3 cm Jose Angel Emery APRN.SNOW RANGER Work Phone: [facility] 01-07-2022 12:47-0400 Body weight 98.7 kg Jose Angel Emery APRN.SNOW RANGER Work Phone: [facility] 01-07-2022 12:47-0400 Diastolic blood pressure 77 mm[Hg] Jose Angel Emery APRN.SNOW RANGER Work Phone: [facility] 01-07-2022 12:47-0400 Heart rate 86 /min Jose Angel Emery APRN.SNOW RANGER Work Phone: [facility] 01-07-2022 12:47-0400 Respiratory rate 19 /min Jose Angel Emery APRN.SNOW RANGER Work Phone: [facility] 01-07-2022 12:47-0400 SaO2% (BldA) [Mass fraction] 98 % Jose Angel Emery APRN.SNOW RANGER Work Phone: [facility] 01-07-2022 12:47-0400 Systolic blood pressure 137 mm[Hg] Jose Angel Emery APRN.SNOW RANGER Work Phone: [facility] 08-20-2021 14:15-0400 Body height 180.3 cm Lino Mendiola MD Work Phone: [facility] 08-20-2021 14:15-0400 Body weight 98.88 kg Lino Mendiola MD Work Phone: [facility] 08-20-2021 14:15-0400 Diastolic blood pressure 87 mm[Hg] Lino Mendiola MD Work Phone: [facility] 08-20-2021 14:15-0400 Heart rate 104 /min Lino Mendiola MD Work Phone: [facility] 08-20-2021 14:15-0400 Respiratory rate 19 /min Lino Mendiola MD Work Phone: [facility] 08-20-2021 14:15-0400 SaO2% (BldA) [Mass fraction] 97 % Lino Mendiola MD Work Phone: [facility] 08-20-2021 14:15-0400 Systolic blood pressure 130 mm[Hg] Lino Mendiola MD Work Phone: [facility] Encounters Encounter Date Encounter Type Care Provider Facility Start: 06-19-2023 ambulatory Nahed M. Lue Facility:[facility] Start: 05-29-2023 ambulatory Nahed M. Janethe Facility:[facility] Start: 05-21-2023 ambulatory JOSI DETTLING Facility :[facility] Start: 05-20-2023 ambulatory JOSI DETTLING Facility :[facility] Start: 05-19-2023 ambulatory JOSI DETTLING Facility :[facility] Start: 05-14-2023 ambulatory JOSI DETTLING Facility :[facility] Start: 05-13-2023 ambulatory MYA TENA Facility:[facility] Start: 05-12-2023 ambulatory JOSI DETTLING Facility :[facility] Start: 05-08-2023 End: 05-09-2023 ambulatory ERLINDA M HOY Facility:[facility] Start: 05-08-2023 End: 05-08-2023 ambulatory ERLINDA M HOY Facility:[facility] Start: 05-08-2023 End: 05-09-2023 ambulatory ERLINDA M HOY Facility:[facility] Start: 04-27-2023 ambulatory MICHAEL Jay acility:[facility] Start: 04-24-2023 End: 04-24-2023 ambulatory PAOLA MICHEL Not Available Start: 04-22-2023 End: 04-23-2023 Emergency department patient visit Issa Levy [facility] Start: 04-22-2023 End: 04-22-2023 Emergency department patient visit Issa Levy [facility] Start: 04-17-2023 End: 04-17-2023 ambulatory ERLINDA NUNEZ Facility:[facility] Start: 04-10-2023 End: 04-11-2023 ambulatory LINO MENDIOLA Facility:[facility] Start: 04-07-2023 Telephone encounter Lewis harding [facility] Work Phone: Psychiatry Comment on above: Patient Update Start: 03-26-2023 Refill Lino Mendiola MD Work Phone: Neurology Comment on above: Refill Request Start: 03-06-2023 End: 03-06-2023 ambulatory ERLINDA BASSY Facility:[facility] Start: 03-04-2023 End: 03-05-2023 ambulatory Nahed M. Lue Facility[facility] Start: 03-04-2023 End: 03-05-2023 ambulatory Nahed M. Lue Facility:[facility] Start: 03-04-2023 End: 03-04-2023 Lab Drop off Nahed M. Janethe [facility] Start: 03-04-2023 End: 03-04-2023 Patient encounter procedure Nahed M. Janethe [facility] Start: 02-27-2023 End: 02-27-2023 ambulatory Billie Alonso MD Work Phone: Neurology Comment on above: Chronic migraine wit hout aura without status migrainosus, not intractable (Primary Dx) Start: 02-27-2023 End: 02-27-2023 Telemedicine consultation with patient Billie Alonso MD Work Phone: [facility] Start: 02-20-2023 End: 02-20-2023 ambulatory ERLINDA NUNEZ Facility:[facility] Start: 01-29-2023 End: 01-29-2023 ambulatory Billie Alonso MD Work Phone: Neurology Comment on above: Chronic migraine wit hout aura without status migrainosus, not intractable (Primary Dx) Start: 01-29-2023 End: 01-29-2023 Telemedicine consultation with patient Billie Alonso MD Work Phone: [facility] Start: 01-26-2023 End: 01-26-2023 ambulatory ERLINDA Browning Sharon Facility:[facility] Start: 01-01-2023 End: 01-01-2023 Emergency department patient visit Erlinda Nunez Facility:[facility] Start: 12-16-2022 End: 12-17-2022 ambulatory LINO MENDIOLA Facility:[facility] Start: 12-16-2022 Telephone encounter Lino voss MD Work Phone: Neurology Comment on above: Medication Concern ( Indomethacin) Start: 12-16-2022 End: 12-16-2022 Patient encounter procedure Ervin Grant PhD Work Phone: Neurology Comment on above: Bipolar II disorder (HCC) (Primary Dx) Migraine without aur a, intractable, with status migrainosus (Primary Dx); Partial epilepsy with impairment of consciousness, intractable (HCC) Start: 12-12-2022 Refill Lizeth Rodriguez PRN.CNP Work Phone: Neurology Start: 12-11-2022 Refill Billie rodriguez MD Work Phone: Neurology Comment on above: Refill Request medication concern Start: 11-20-2022 ambulatory Lino Mendiola MD Work Phone: Neurology Comment on above: mental health Start: 11-20-2022 Telephone encounter Billie gandara MD Work Phone: Neurology Start: 10-30-2022 End: 10-30-2022 Emergency department patient visit Davis Nallely Mir Facility:[facility] Start: 10-29-2022 End: 10-29-2022 Emergency department patient visit MD Erlinda Nunez Work Phone: [facility] Work Phone: Start: 10-27-2022 End: 10-28-2022 ambulatory LINO MENDIOLA Facility:[facility] Start: 09-29-2022 End: 09-29-2022 ambulatory Scott Nassar Facility[facility] Start: 09-29-2022 End: 09-29-2022 Admission to same day surgery mellen Scott Nassar [facility] Start: 09-21-2022 End: 09-22-2022 Emergency department patient visit Virgil SBradley Dozier Facility[place] Start: 09-19-2022 ambulatory Facility:[id number] Start: 09-19-2022 End: 09-20-2022 ambulatory Scott Nassar Facility:[facility] Start: 09-19-2022 End: 09-19-2022 Patient encounter procedure Scott Nassar [facility] Start: 09-17-2022 Telephone encounter Lino voss MD Work Phone: Neurology Comment on above: Letter (Surgery colton santiago) Start: 09-02-2022 End: 09-03-2022 ambulatory ERLINDA NUNEZ Facility:[facility] Start: 09-02-2022 End: 09-03-2022 ambulatory NADIRA PURDY Facility:[facility] Start: 08-28-2022 ambulatory Lino Mendiola MD Work Phone: Neurology Comment on above: VNS Start: 08-22-2022 End: 08-23-2022 ambulatory MELLY NEWTON Facility:[facility] Start: 08-12-2022 End: 08-12-2022 ambulatory BILLIE ALONSO Facility:[facility] Start: 07-31-2022 Telephone encounter Lino voss [...] End: 01-13-[address] ERLINDA NUNEZ . Facility: Start: 01-07-2022 End: 01-07-2022 Patient encounter procedure Jose Angel Emery APRN.CNP Work Phone: Neurosurgery Comment on above: 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 (Primary Dx) Start: 01-07-2022 End: 01-07-2022 Subsequent hospital visit by physician [facility] Work Phone: Radiology Comment [...] . Facili ty:[facility] Start: 10-04-2021 End: 10-04-2021 Distance [facility] Lesvia Jonesmarielle KRAUSYD Work Phone: Neurology Comment on above: Bipolar II disorder (HCC) (Primary Dx) Start: 09-27-2021 Telephone encounter Lesvia Robert palomares PSYD Work Phone: Neurology Comment on above: Appointment Start: 09-25-2021 End: 09-26-[address] ERLINDA NUNEZ . Facility:[facility] Start: 09-20-2021 Telephone encounter Lesvia Robert palomares PSYD Work Phone: Neurology Comment on above: Appointment Start: 09-14-2021 End: 09-14-[address] ERLINDA NUNEZ . Facility:[facility] Start: 09-13-2021 End: 09-13-2021 [facility] Lesvia Viveros EFRAYD Work Phone: Neurology Comment on above: Bipolar 2 disorder ( HCC) Start: 08-20-2021 End: 08-20-2021 Patient encounter procedure Lino Mendiola MD Work Phone: Neurology Comment on above: 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, intractable (HCC) (Primary Dx); Recurrent major depression in partial remission (HCC) Start: 11-18-2016 End: 11-18-2016 [facility] Date Procedure Procedure Detail Performing Clinician Start: 09-29-2022 Arthroscopy of knee Luiz mike Nassar Start: 08-23-2022 Radiologic exam ches t 2 views Horace Ervin PA-C Work Phone: Start: 01-07-2022 Radiologic examinati on neck soft tissue Horace Ervin PA-C Work Phone: Start: 09-25-[address] VINAYAK NUNEZ . Comment on above: Performed By: #### C MADM, BMP #### [facility] [address] [place] [address] Dr. Meron Gentile Start: 06-20-2020 Lipid 1996 [...] replaced in 2020 History of tonsillectomy Luiz Nassar Plan of Treatment Date Care Activity Detail Author Start: 06-20-2025 Lipid 1996 panel - S jaspreet or Plasma Lipid Screening [facility] Start: 06-20-2025 LIPID SCREEN LIPID SCREEN [facility] Start: 01-16-2023 Covid-19 Vaccine ( season) Covid-19 Vaccine ( season) [facility] Start: 01-16-2023 Influenza vaccination [facility] Start: 10-29-2022 Radiologic examinati on of knee XR knee LT 4V* [facility] Start: 01-16-2022 Influenza vaccination [facility] Start: 08-09-2021 COVID-19 VACCINE (3 - Booster for Pfizer series) COVID-19 VACCINE (3 - Booster for Pfizer series) [facility] Start: 05-06-2021 COVID-19 VACCINE (3 - Booster for Pfizer series) COVID-19 VACCINE (3 - Booster for Pfizer series) [facility] Start: 05-06-2021 COVID-19 VACCINE (3 - Pfizer series) COVID-19 VACCINE (3 - Pfizer series) [facility] Start: 2001 Urine microalbumin profile [facility] Start: 1982 HEPATITIS B (1 of 3 - 3-dose series) HEPATITIS B (1 of 3 - 3-dose series) [facility] Start: 1982 Hepatitis B Vaccine (1 of 3 - 3-dose series) Hepatitis B Vaccine (1 of 3 - 3-dose series) [facility] Patient referral [facility] Work Phone: [facility] Immunizations Immunization [facility] Immunization Notes Care Provider Fa cili 03-11-2021 SARS-CoV-2 (COVID-19 ) mRNA BNT-162b2 vax Nahed Lue [facility] Comment on above: Result Comment: 2022: TPVALL 02-18-2021 SARS-CoV-2 (COVID-19 ) mRNA BNT-162b2 vax Nahed Lue [facility] Comment on above: Result Comment: 2022: TPVALL Payers Date Payer Category Payer Self-pay [id number] 2017 Medicaid MEDICAID [facility] MEDICAID [id number] 2017-Present [phone] [address] [place] [address] Medicaid [id number] 2017 Medicaid MEDICAID [facility] MEDICAID [id number] 2017-Present [phone] [address] [place] [address] Medicaid [id number] 2014 Medicare [id number] 2006 Medicare MEDICARE MEDICAR E A AND B [id number] 2006-Present [phone] [address] [address] [place] [address] Medicare [id number] 2005 Medicare MEDICARE MEDICAR E A AND B [id number] 2005-Present [phone] [place] [address] Medicare [id number] 1982 Unknown [id number] 2.840.1.569386.3.579.2.593 1982 Unknown [id number] 2.840.1.059589.3.579.2.593 1982 Unknown [id number] 2.840.1.374136.3.579.2.593 1982 Unknown [id number] 2.16840.1.431451.3.579.2.593 1982 Unknown [id number] 2.16840.1.943858.3.579.2.593 1982 Unknown [id number] 2.16840.1.573801.3.579.2.593 1982 Unknown [id number] 2.16840.1.586400.3.579.2.593 1982 Unknown [id number] 2.16.840.1.295897.3.579.2.356 1982 Unknown [id number] 2.16840.1.307157.3.579.2.1259 1982 Unknown [id number] 2.16.840.1.967496.3.579.2.9 1982 Unknown [id number] 2.16.840.1.382387.3.579.2. 1982 Unknown [id number] 2.16.840.1.145532.3.579.2. 1982 Unknown [id number] 2.16.840.1.849321.3.579.2. 1982 Unknown [id number] 2.16.840.1.670308.3.579.2. 1982 Unknown [id number] 2.16.840.1.883519.3.579.2 1982 Unknown [id number] 2.840.1.465836.3.579.2 1982 Unknown [id number] 2.16840.1.596549.3.579.2 1982 Unknown [id number] 2.16.840.1.565607.3.579.2.727 1959 Medicaid [id number] 1959 Medicare [id number] 1959 Self-pay [id number] Unknown [id number]1 Unknown [id number] Social History Date Type Detail Facility Start: 07-31-2010 End: 03-04-2023 Tobacco smoking status NHIS Never smoked tobacco [facility] Start: 07-31-2010 End: 01-02-2011 Tobacco use and exposure Smokeless tobacco non-user [facility] Start: 08-20-2021 End: 12-16-2022 Alcohol intake Current non-drinker of alcohol (finding) [facility] Start: 1980 Sex Assigned At Not on file [facility] Start: 08-19-2021 End: 01-07-2022 Exposure to SARS-CoV-2 (event) Not sure [facility] Tobacco smoking status No Smokin g Status Entered [facility] Start: 10-27-2022 End: 03-05-2023 Sex Assigned At Male [facility] Start: 1980 Sex Assigned At Male [facility] Start: 10-27-2022 End: 03-05-2023 History of Social function [facility] Adult Depression Screening Assessment 3 [facility] Medical Equipment Procedure Code Equipment Code Equipment Origin al Text Equipment Identifier Dates Generator Vns Th erapy Aspirehc Neurostimulator Epilepsy Sterile - [id number] Start: 02-04-2018 Xqr-Pj-C-Kind Im plant - [id number] Start: 04-01-2016 Comment on above: Description: GENERATOR VNS THERAPY ASPIR EHC NEUROSTIMULATOR EPILEPSY STERILE Lead Vns Therapy 2mm Silicone 43cm Neurostimulator 1 Pin Bipolar Model - [id number] Start: 09-20-2020 Generator Vns Th erapy Aspiresr Thk7mm Neurostimulator 14cc 1 Pin Lead - [id number] Start: 05-16-2019 Generator Vns Th erapy Aspiresr Thk7mm Neurostimulator 14cc 1 Pin Lead - [id number] Start: 06-28-2020 Generator Vns Th erapy Aspiresr Thk7mm Neurostimulator 14cc 1 Pin Lead - [id number] Start: 09-20-2020 Functional Status Date Assessment Result Facility 04-22-2023 Functional Status N/A [facility] 03-04-2023 Functional Status N/A [facility] 09-19-2022 Functional Status No [facility] Clinical Notes 04-07-2016 to 05-21-2023 Note Date & Type Note Facility 05-21-2023 Note HNO ID: [id number] Author: SARAH RAE LPCC Service: Behavioral Health IOP (Intensive Outpatient Program) Author Type: Therapist Type: Progress Notes Filed: 05/21/2023 12:59 Note Text: Summary: DBT IOP virtual group *This service is provided virtually via [employer]. IOP (INTENSIVE OUTPATIENT PROGRAM) PROGRESS NOTE SERVICE DATE: 05/21/23 SERVICE TIME: 9AM-noon BEHAVIOR: Appearance: Casually dressed Attitude: Cooperative Affect: Restricted/blunted Mood: Anxious and Pleasant Orientation: Oriented to person, place and time Thought:: Dichotomous, concrete Speech: Normal, slowed at times Eye Contact: Intermittent Describe Change Noted Throughout [...] the following: mood (0=none, 5=extreme) - depression 4, anxiety 4, anger 3, shame/guilt 3, contentment 1 cindy 1; urges (0=none, 5 = extreme) - anger-3, bottling-2, rumination-3; SI/SIB - none; skills - 1; medication compliance - yes; substance use - none; sleep - 7 hours Pt's check-in focused on: having a busy afternoon, stating that he had multiple appointments yesterday, then went home and crashed. He reported that this week has had multiple medical appointments, sharing that he is feeling exhausted. Pt shared that his therapist inquired if the medical appointments feel like too much with pt sharing that it feels normal to him, from having been diagnosed with epilepsy at age 5. Pt stated this is something I have to do, for maintenance of his health conditions. Patient Affirms Safety. Patient Data IOP Daily [...] minutes # of Patients: 6 THERAPEUTIC FOCUS: KOMAL PROBLEM(S) ADDRESSED: -Mental health issues INTERVENTIONS: Mindfulness practice implemented and processed. Focus on important relationships and identification of factors that reduce interpersonal effectiveness and discussion about increasing interpersonal skills using the KOMAL. Application to patient's individualized treatment goals. RESPONSE: Appears attentive, engaged and participative. Pt was an active participant throughout the psychoeducational dialogue on KOMAL, offering to read and sharing thoughts and personal experiences frequently. Pt acknowledged that bottling his emotions is a barrier to effectively communicating with others, as well as having to navigate unexpected life stressors. Pt shared experiences in the past where he has been mindful when asserting himself and/or setting a boundary and the other person appeared to become ?escalated? throughout the discussion; Pt appeared receptive to guidance/feedback from therapist exploring additional strategies to consider using moving forward. Pt asked questions throughout the discussion for the purpose of clarifying understanding of skill application to their experiences. Process Therapy Start Time: 11:00 am Total Time: 50 minutes # of Patients: 6 THERAPEUTIC FOCUS: Coping Skills PROBLEM(S) ADDRESSED: -Mental health issues INTERVENTIONS: Facilitated discussion regarding various group member concerns, with focus on application of KOMAL and weekend planning. Provided feedback, supportive, reflective listening and facilitated connections between group members as they explored current stressors/symptoms through the context of program information. Assessed safety prior to patients leaving for day. RESPONSE: Appears attentive, engaged and participative. Pt briefly offered feedback to another group member by sharing from similar personal experiences. Patient Affirms Safety. Patient reaffirmed Safety Plan and can stay safe from harm. Patient developed weekend plan, as identified below: I will care for my body by: attend [facility] (more content not included)... [facility] 05-20-2023 Note HNO ID: [id number] Author: Sarah Rae [facility] Service: Behavioral Health IOP (Intensive Outpatient Program) Author Type: Therapist Type: Plan of Care Filed: 05/20/2023 1:24 PM Note Text: Summary: DBT IOP Weekly Summary WEEKLY TREATMENT TEAM PROGRESS NOTE INTENSIVE OUTPATIENT PROGRAM May 20, 2023 Safety Assessment: Suicide risk: High Risk: Pt denied current SI this week or in the last 2 weeks. He has a recent history of a [...] with crisis hotline/support numbers, is enrolled in IOP four days a week for three hours per day, and is assigned IOP daily questionnaire to assess risk. Self-Injury risk: Low Risk; Pt denies current urges or history of self injurious behavior. Pt is assessed daily, and has a safety plan to refer to as needed. Weekly update on patient progress summarized: Pt attended 2 days thus far this week, no IOP on 05/18 in observance of the 's holiday, with anticipated attendance tomorrow. Pt was provided with psychoeducation this week on the following: mindful breathing/meditation and mindfulness to body sensations, OA to sadness and anger, willingness, turn the mind, half smile, and KOMAL. Pt reports mild to moderate urges for bottling emotions and lashing out that he does not act on; Pt struggles to identify use of skills to regulate emotions and urges however is receptive to guidance from therapists highlighting use of skills. Pt has been using opposite action, FAST, accumulating positive emotions and experiences, pros AND cons, and mindfulness to emotions. Pt is exploring making changes to his current work schedule with working two separate jobs to have a healthier work/life balance, as he is currently working a lot which is impacting his energy levels and sleep hygiene. Pt continues to be willing to ask questions throughout IOP discussions to clarify understanding of skills to apply to his own experiences, and appears to be sharing more spontaneously and frequently as well. Interval Progress: Stable Measurement-Based Assessment: Patient Data Generalized Anxiety Disorder Scale (REENA-7) REENA - 7 SCORES 04/27/2023 05/08/2023 05/20/2023 REENA-7 Score 14 8 12 (0-4) minimal anxiety, (5-9) mild anxiety, (10-14) moderate anxiety, (15-21) severe anxiety Mindful Attention Awareness Scale (SARAH) Mindful Attention Awareness Scale (SARAH) 04/27/2023 05/20/2023 Mindful Attention Awareness Scale Score 41 54 Mindful Attention Awareness Scale Mean Score 2.73 3.6 Patient Health Questionnaire (PHQ-9) PHQ-9 04/27/2023 05/08/2023 05/20/2023 Score 18 7 13 (0-4) minimal depression, (5-9) mild depression, (10-14) moderate depression, (15-19) moderately severe depression, (20-27) severe depression Plan: Pt will continue in IOP and follow Master Treatment Plan. Pt is established with outpatient providers: prescriber: RADHA Lindsey ([facility]) and therapist: ALVIN Perez (at [facility] in [place]). Pt has future appointment scheduled on 06/05 with geriatric social work professor ALVIN Lopez. Team members present: Sarah Rae, [facility] Jazmin Skelton [facility] Mya Tena, MSN, QC CHEMIST, SNOW RANGER, PMHNP-[facility] 05-20-2023 Note HNO ID: [id number] Author: Sarah Rae [facility] Service: Behavioral Health IOP (Intensive Outpatient Program) Author Type: Therapist Type: Progress Notes Filed: 05/20/2023 12:46 PM Note Text: Summary: DBT IOP virtual group *This service is provided virtually via [employer]. IOP (INTENSIVE OUTPATIENT PROGRAM) PROGRESS NOTE SERVICE DATE: 05/20/23 SERVICE TIME: 9AM-noon BEHAVIOR: Appearance: Casually dressed Attitude: Cooperative Affect: Restricted/blunted Mood: Neutral Orientation: Oriented to person, place and time [...] SI, changes with sleep, appetite, energy level. Administered two-week assessment measures: PHQ9, GAD7 and SARAH. RESPONSE: Appears attentive, engaged and participative. Pt reported the following: mood (0=none, 5=extreme) - depression 3, anxiety 2, anger 3, shame/guilt 3, contentment 1, cindy 1; urges (0=none, 5 = extreme) - lashing out 2, bottling emotions 3 (not acted on any); SI/SIB - denied; skills - none identified during check-in; medication compliance - yes; substance use - denied; sleep - 5 hours. Pt?s check-in centered on experiencing increased irritability yesterday, which influenced urges to bottle up his emotions; Pt stated that he used the pros AND cons skill to explore work-related decisions he is considering making regarding his future schedules with his 2 current jobs. Pt acknowledged that his work schedule is currently overwhelming for him and is impacting his sleep, noting that he did not get to sleep until 3am. Pt reported that he thinks he is going to continue working at [employer] and no longer work at [employer], as this would make the greatest impact on stabilizing his work/life balance. Pt was encouraged by therapist to give himself credit for using the skills of problem-solving, opposite action, and FAST. Patient Affirms Safety. Patient Data Generalized Anxiety Disorder Scale (REENA-7) REENA - 7 SCORES 04/27/2023 05/08/2023 05/20/2023 REENA-7 Score 14 8 12 (0-4) minimal anxiety, (5-9) mild anxiety, (10-14) moderate anxiety, (15-21) severe anxiety IOP Daily Questionnaire IOP Daily 05/18/2023 05/18/2023 [...] rate your mood now? 4 4 4 Mindful Attention Awareness Scale (SARAH) Mindful Attention Awareness Scale (SARAH) 04/27/2023 05/20/2023 Mindful Attention Awareness Scale Score 41 54 Mindful Attention Awareness Scale Mean Score 2.73 3.6 Patient Health Questionnaire (PHQ-9) PHQ-9 04/27/2023 05/08/2023 05/20/2023 Score 18 7 13 (0-4) minimal depression, (5-9) mild depression, (10-14) moderate depression, (15-19) moderately severe depression, (20-27) severe depression Process Therapy Start Time: 10:00 am Total Time: 50 minutes # of Patients: 5 THERAPEUTIC FOCUS: Willingness, turn the mind PROBLEM(S) ADDRESSED: -Mental health issues INTERVENTIONS: Mindfulness practice implemented and processed. Discussion about willingness and turn the mind skills as precursor skills to reality acceptance, differentiating willingness from willfulness and strategies to aid in turning the mind towards acceptance. RESPONSE: Appears attentive, engaged and participative. Pt reflected upon the mindfulness progressive muscle relaxation practice reminded him of yoga practices. Pt was an active participant throughout the psychoeducational dialogue on willingness, frequently sharing thoughts and personal experiences frequently. Pt shared that the definition of willfulness reminded him of the definition of selfishness. Pt shared that he was willful by telling someone at work, that's your job, you deal with it. Pt asked questions throughout the discussion for the purpose of clarifying understanding of skill application to their experiences, with appearing open to trade mark examiner offering concrete examples to aid in understanding of sk (more content not included)... [facility] 05-19-2023 Note HNO ID: [id number] Author: Sarah Rae [facility] Service: Behavioral Health IOP (Intensive Outpatient Program) Author Type: Therapist Type: Progress Notes Filed: 05/19/2023 12:43 PM Note Text: Summary: DBT IOP virtual group *This service is provided virtually via [employer]. IOP (INTENSIVE OUTPATIENT PROGRAM) PROGRESS NOTE SERVICE [...] a calmer state. Pt appeared open to trade mark examiner pointing out his use of accumulating positive emotions and experiences, mindfulness to emotions and wisemind. Pt denied acting on urges yesterday, sharing that he was busy working all weekend, which prevented him from engaging in urges. Pt inquired about resources for seeking power of tax associate attorney, and pt was directed to consider seeking out resources through his county's trust and estates paralegal, through his counselor's office and/or to address at an upcoming geriatric social work professor appt in a few weeks. Patient Affirms [...] of skill appl (more content not included)... [facility] 05-14-2023 Note HNO ID: [id number] Author: Sarah Rae [facility] Service: Behavioral Health IOP (Intensive Outpatient Program) Author Type: Therapist Type: Progress Notes Filed: 05/14/2023 1:37 PM Note Text: Summary: DBT IOP virtual group *This service is provided virtually via [employer]. IOP (INTENSIVE OUTPATIENT PROGRAM) PROGRESS NOTE SERVICE DATE: 05/14/23 SERVICE TIME: 9AM-noon BEHAVIOR: Appearance: Casually dressed Attitude: Cooperative, distractible at times Affect: Restricted/blunted Mood: Depressed and Anxious Orientation: Oriented to person, place and time Thought:: [place] Speech: Normal, with frequent sharing in the [...] in this area of his life, with trade mark examiner highlighting that pt appears to value his [...] Assessed safety prior (more content not included)... [facility] 05-13-2023 Note HNO ID: [id number] Author: Jazmin Skelton [facility] Service: Behavioral Health IOP (Intensive Outpatient Program) Author Type: Counselor Type: Progress Notes Filed: 05/13/2023 1:20 PM Note Text: Summary: DBT IOP *This service is provided virtually via [employer] IOP (INTENSIVE OUTPATIENT PROGRAM) PROGRESS NOTE SERVICE DATE: 05/13/23 SERVICE TIME: 9AM-noon BEHAVIOR: Appearance: Well Groomed Attitude: Cooperative Affect: Appropriate and Anxious/tense Mood: Anxious and Pleasant Orientation: Oriented to person, place and time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 documented as of this encounter (statuses as of 12/15/2022) [address]21-2016 History of Past illness Narrative* Problem Noted Date Diagnosed Date Resolved Date Acute respiratory failure 04/07/2016 documented as of this encounter (statuses as of 12/17/2022) [address]21-2016 History of Past illness Narrative* Problem Noted Date Diagnosed Date Resolved Date Acute respiratory failure 04/07/2016 documented as of this encounter (statuses as of 12/18/2022) [address]21-2016 History of Past illness Narrative* Problem Noted Date Diagnosed Date Resolved Date Acute respiratory failure 04/07/2016 documented as of this encounter (statuses as of 12/23/2022) [address]21-2016 History of Past illness Narrative* Problem Noted Date Diagnosed Date Resolved Date Acute respiratory failure 04/07/2016 documented as of this encounter (statuses as of 01/29/2023) [address]21-2016 History of Past illness Narrative* Problem Noted Date Diagnosed Date Resolved Date Acute respiratory failure 04/07/2016 documented as of this encounter (statuses as of 02/21/2023) [address]21-2016 History of Past illness Narrative* Problem Noted Date Diagnosed Date Resolved Date Acute respiratory failure 04/07/2016 documented as of this encounter (statuses as of 02/27/2023) [facility] of Past illness Narrative* Problem Noted Date Diagnosed Date Resolved Date Acute respiratory failure 04/07/2016 documented as of this encounter (statuses as of 03/27/2023) [facility] of Past illness Narrative* Problem Noted Date Diagnosed Date Resolved Date Acute respiratory failure 04/07/2016 documented as of this encounter (statuses as of 04/08/2023) [facility] Future Appointments Appointment Date:09/29/2022 11:15:00 AM Scheduled Provider: Location:[facility] Future Appointments Appointment Date:05/13/2023 09:00:00 AM Scheduled Provider:Nahed Doran MD Location:[facility] Appointment Type:URO Office Visit Diagnostic Tests Pending * PTH Intact 03/04/23 * Uric Acid 03/04/23 [facility] evaluation + Plan note Future Appointments Appointment Date:05/13/2023 09:00:00 AM Scheduled Provider:Nahed Doran MD Location:[facility] Appointment Type:URO Office Visit Diagnostic Tests Pending * Calculi Analysis Urinary 03/04/23 [facility] note* Diagnosis Partial epilepsy with impairment of consciousness, 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) epilepsy and epileptic syndromes with complex partial seizures, with intractable epilepsy Recurrent major depression in partial remission (HCC) Major depressive disorder, recurrent episode, in partial or unspecified remission [facility] Diagnosis Bipolar 2 disorder (HCC) Other bipolar disorders [facility] this [facility]* Diagnosis Bipolar II disorder (HCC)- Primary Other bipolar disorders [facility]* Diagnosis 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- Primary Other postprocedural status [facility] Diagnosis 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- Primary Other postprocedural status [facility] this [facility] Diagnosis 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 Other postprocedural status [facility] Diagnosis 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- Primary Other postprocedural status Tenderness of neck [facility] this [facility]* Diagnosis Chronic nonintractable headache, unspecified headache type- Primary Partial epilepsy with impairment of consciousness, intractable (HCC) Localization-related (focal) (partial) epilepsy and epileptic syndromes with complex partial seizures, with intractable epilepsy [facility] this [facility] Diagnosis Partial epilepsy with impairment of consciousness, intractable (HCC) Localization-related (focal) (partial) epilepsy and epileptic syndromes with complex partial seizures, with intractable epilepsy documented in this encounter [facility] noteNo assessment information availableOhio[facility] Work Phone: Evaluation note* Diagnosis Chronic migraine without aura without status migrainosus, not intractable Chronic migraine without aura, without mention of intractable migraine without mention of status migrainosus documented [facility] this [facility]* Diagnosis Bipolar II disorder (HCC)- Primary Other bipolar disorders documented in this [facility]* Diagnosis Migraine without aura, intractable, with status migrainosus- Primary Migraine without aura, with intractable migraine, so stated, with status migrainosus Partial epilepsy with impairment of consciousness, intractable (HCC) Localization-related (focal) (partial) epilepsy and epileptic syndromes with complex partial seizures, with intractable epilepsy [facility] this [facility]* Diagnosis Chronic migraine without aura without status migrainosus, not intractable- Primary Chronic migraine without aura, without mention of intractable migraine without mention of status migrainosus documented [facility] this [facility]* Diagnosis Chronic migraine without aura without status migrainosus, not intractable- Primary Chronic migraine without aura, without mention of intractable migraine without mention of status migrainosus [facility] Diagnosis Chronic migraine without aura without status migrainosus, not intractable Chronic migraine without aura, without mention of intractable migraine without mention of status migrainosus documented in this encounter [facility] course Narrative No data available for this section [facility] No data available for this section [facility] No data available for this section [facility]Reason [facility] (narrative)* Diagnostic Procedure Only (Routine) - Closed Specialty Diagnoses / Procedures Referred By Contac t Referred To Contact XR IMAGING Diagnoses 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 Procedures XR NECK SOFT TISSUE 2V AP/LAT RADIOLOGIC EXAMINATION NECK SOFT TISSUE Neur Epilepsy Main [address] [id number] Xr Imaging Referral ID Status Reason Start Date Expiration Date V isits Requested Visits Authorized [id number] Closed Auto-Generate d Referral 01/06/2022 02/05/2023 1 1 [facility] Diagnostic Procedure Only (Routine) - Closed Specialty Diagnoses / Procedures Referred By Contac t Referred To Contact XR IMAGING Diagnoses 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 Procedures XR NECK SOFT TISSUE 2V AP/LAT RADIOLOGIC EXAMINATION NECK SOFT TISSUE Neur Epilepsy Main [address] [id number] Xr Imaging Referral ID Status Reason Start Date Expiration Date V isits Requested Visits Authorized [id number] Closed Auto-Generate d Referral 01/06/2022 02/05/2023 1 1 [facility] Summary Purpose Family History No Family [...] FoundDocuments on File Type Date Recorded 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 Advance Directive(s) 09/21/2020 11:55 AM Advance Directive(s) 06/20/2020 12:31 PM Advance Directive(s) 05/12/2019 11:28 AM Advance Directive(s) 05/09/2019 11:17 AM Advance Directive(s) 02/03/2018 11:54 AM Advance Directive(s) 04/08/2016 9:04 PM Advance Directive(s) 03/31/2016 8:54 AM Advance Directive(s) 03/26/2016 2:09 PM Documents on File Type Date Recorded 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 Advance Directive(s) 09/21/2020 11:55 AM [...] remission (HCC) Procedures CONSULT TO PSYCHOLOGY OFFICE/OUTPATIENT [facility] 60-74 MINUTES Lino Mendiola MD [address] [place] [address] Referral ID Status Reason Start Date Expiration Date Visits Requested Visits Authorized [id number] Pending Review PCP Requested Referral 08/20/2021 08/20/2022 1 1 Specialty Diagnoses / Procedures Referred By Contac t Referred To Contact Diagnoses Partial epilepsy with impairment of consciousness, intractable (HCC) Chronic nonintractable headache, unspecified headache type Procedures CONSULT TO HEADACHE CLINIC OFFICE/OUTPATIENT [facility] 60-74 MINUTES Kari Becker PA-C [address] [place] [address] Referral ID Status Reason Start Date Expiration Date Visits Requested Visits Authorized [id number] Authorized PCP Requested Referral 07/15/2022 07/15/2023 1 [...] CREATED AUTHOR AUTHOR'S ORGANIZ ATION 07/31/2022 [facility] DATE CREATED AUTHOR AUTHOR'S ORGANIZ ATION 12/30/2022 [facility] DATE CREATED AUTHOR AUTHOR'S ORGANIZ ATION 01/13/2023 [facility] DATE CREATED AUTHOR AUTHOR'S ORGANIZ ATION 02/23/2023 [facility] DATE CREATED AUTHOR AUTHOR'S ORGANIZ ATION 04/09/2023 [facility] DATE CREATED AUTHOR AUTHOR'S ORGANIZ ATION 04/26/2023 [facility] DATE CREATED AUTHOR AUTHOR'S ORGANIZ ATION 05/18/2023 [facility] DATE CREATED AUTHOR AUTHOR'S ORGANIZ ATION 05/20/2023 Ervin Angelito [facility] DATE CREATED AUTHOR AUTHOR'S ORGANIZ ATION 05/22/2023 [facility] Source Comments (unrecognize d section and content) In the event this informatio n is protected by the Federal Confidentiality of Alcohol and Drug Abuse Patient Records regulations: The Federal rules restrict any use of the information to criminally investigate or prosecute any alcohol or drug abuse patient.[facility] HospitalIn the event this information is protected by the Federal Confidentiality of Alcohol and Drug Abuse Patient Records regulations: The Federal rules restrict any use of the information to criminally investigate or prosecute any alcohol or drug abuse patient.[facility] HospitalIn the event this information is protected by the Federal Confidentiality of Alcohol and Drug Abuse Patient Records regulations: The Federal rules restrict any use of the information to criminally investigate or prosecute any alcohol or drug abuse patient.[facility] HospitalIn the event this information is protected by the Federal Confidentiality of Alcohol and Drug Abuse Patient Records regulations: The Federal rules restrict any use of the information to criminally investigate or prosecute any alcohol or drug abuse patient.[facility] HospitalIn the event this information is protected by the Federal Confidentiality of Alcohol and Drug Abuse Patient Records regulations: The Federal rules restrict any use of the information to criminally investigate or prosecute any alcohol or drug abuse patient.[facility] HospitalIn the event this information is protected by the Federal Confidentiality of Alcohol and Drug Abuse Patient Records regulations: The Federal rules restrict any use of the information to criminally investigate or prosecute any alcohol or drug abuse patient.[facility] HospitalIn the event this information is protected by the Federal Confidentiality of Alcohol and Drug Abuse Patient Records regulations: The Federal rules restrict any use of the information to criminally investigate or prosecute any alcohol or drug abuse patient.[facility] HospitalIn the event this information is protected by the Federal Confidentiality of Alcohol and Drug Abuse Patient Records regulations: The Federal rules restrict any use of the information to criminally investigate or prosecute any alcohol or drug abuse patient.[facility] HospitalIn the event this information is protected by the Federal Confidentiality of Alcohol and Drug Abuse Patient Records regulations: The Federal rules restrict any use of the information to criminally investigate or prosecute any alcohol or drug abuse patient.[facility] HospitalIn the event this information is protected by the Federal Confidentiality of Alcohol and Drug Abuse Patient Records regulations: The Federal rules restrict any use of the information to criminally investigate or prosecute any alcohol or drug abuse patient.[facility] HospitalIn the event this information is protected by the Federal Confidentiality of Alcohol and Drug Abuse Patient Records regulations: The Federal rules restrict any use of the information to criminally investigate or prosecute any alcohol or drug abuse patient.[facility] HospitalIn the event this information is protected by the Federal Confidentiality of Alcohol and Drug Abuse Patient Records regulations: The Federal rules restrict any use of the information to criminally investigate or prosecute any alcohol or drug abuse patient.[facility] HospitalIn the event this information is protected by the Federal Confidentiality of Alcohol and Drug Abuse Patient Records regulations: The Federal rules restrict any use of the information to criminally investigate or prosecute any alcohol or drug abuse patient.[facility] HospitalIn the event this information is protected by the Federal Confidentiality of Alcohol and Drug Abuse Patient Records regulations: The Federal rules restrict any use of the information to criminally investigate or prosecute any alcohol or drug abuse patient.[facility] HospitalIn the event this information is protected by the Federal Confidentiality of Alcohol and Drug Abuse Patient Records regulations: The Federal rules restrict any use of the information to criminally investigate or prosecute any alcohol or drug abuse patient.[facility] HospitalIn the event this information is protected by the Federal Confidentiality of Alcohol and Drug Abuse Patient Records regulations: The Federal rules restrict any use of the information to criminally investigate or prosecute any alcohol or drug abuse patient.[facility] HospitalIn the event this information is protected by the Federal Confidentiality of Alcohol and Drug Abuse Patient Records regulations: The Federal rules restrict any use of the information to criminally investigate or prosecute any alcohol or drug abuse patient.[facility] HospitalIn the event this information is protected by the Federal Confidentiality of Alcohol and Drug Abuse Patient Records regulations: The Federal rules restrict any use of the information to criminally investigate or prosecute any alcohol or drug abuse patient.[facility] HospitalIn the event this information is protected by the Federal Confidentiality of Alcohol and Drug Abuse Patient Records regulations: The Federal rules restrict any use of the information to criminally investigate or prosecute any alcohol or drug abuse patient.[facility] HospitalIn the event this information is protected by the Federal Confidentiality of Alcohol and Drug Abuse Patient Records regulations: The Federal rules restrict any use of the information to criminally investigate or prosecute any alcohol or drug abuse patient.[facility] HospitalIn the event this information is protected by the Federal Confidentiality of Alcohol and Drug Abuse Patient Records regulations: The Federal rules restrict any use of the information to criminally investigate or prosecute any alcohol or drug abuse patient.[facility] HospitalIn the event this information is protected by the Federal Confidentiality of Alcohol and Drug Abuse Patient Records regulations: The Federal rules restrict any use of the information to criminally investigate or prosecute any alcohol or drug abuse patient.[facility] HospitalIn the event this information is protected by the Federal Confidentiality of Alcohol and Drug Abuse Patient Records regulations: The Federal rules restrict any use of the information to criminally investigate or prosecute any alcohol or drug abuse patient.[facility] HospitalIn the event this information is protected by the Federal Confidentiality of Alcohol and Drug Abuse Patient Records regulations: The Federal rules restrict any use of the information to criminally investigate or prosecute any alcohol or drug abuse patient.[facility] HospitalIn the event this information is protected by the Federal Confidentiality of Alcohol and Drug Abuse Patient Records regulations: The Federal rules restrict any use of the information to criminally investigate or prosecute any alcohol or drug abuse patient.[facility] HospitalIn the event this information is protected by the Federal Confidentiality of Alcohol and Drug Abuse Patient Records regulations: The Federal rules restrict any use of the information to criminally investigate or prosecute any alcohol or drug abuse patient.[facility] HospitalIn the event this information is protected by the Federal Confidentiality of Alcohol and Drug Abuse Patient Records regulations: The Federal rules restrict any use of the information to criminally investigate or prosecute any alcohol or drug abuse patient.[facility] HospitalIn the event this information is protected by the Federal Confidentiality of Alcohol and Drug Abuse Patient Records regulations: The Federal rules restrict any use of the information to criminally investigate or prosecute any alcohol or drug abuse patient.[facility] HospitalIn the event this information is protected by the Federal Confidentiality of Alcohol and Drug Abuse Patient Records regulations: The Federal rules restrict any use of the information to criminally investigate or prosecute any alcohol or drug abuse patient.[facility] HospitalIn the event this information is protected by the Federal Confidentiality of Alcohol and Drug Abuse Patient Records regulations: The Federal rules restrict any use of the information to criminally investigate or prosecute any alcohol or drug abuse patient.[facility] HospitalIn the event this information is protected by the Federal Confidentiality of Alcohol and Drug Abuse Patient Records regulations: The Federal rules restrict any use of the information to criminally investigate or prosecute any alcohol or drug abuse patient.[facility] HospitalIn the event this information is protected by the Federal Confidentiality of Alcohol and Drug Abuse Patient Records regulations: The Federal rules restrict any use of the information to criminally investigate or prosecute any alcohol or drug abuse patient.[facility] Reason for Visit (unrecogniz ed section [...] EXAMINATION NECK SOFT TISSUE Neur Epilepsy Main [address] [id number] Xr Imaging Referral ID Status Reason Start Date Expiration Date V isits Requested Visits Authorized [id number] Closed Auto-Generate d Referral 01/06/2022 02/05/2023 1 [...] Care Teams (unrecognized sec tion and content) Form Setter Supervisor Relationship Specialty Start Date End Date Erlinda Nunez MD PCP - General Family Practice 01/02/11 Form Setter Supervisor Relationship Specialty Start Date End Date Erlinda Nunez MD PCP - General Family Practice 01/02/11 Form Setter Supervisor Relationship Specialty Start Date End Date Erlinda Nunez MD PCP - General Family Practice 01/02/11 Form Setter Supervisor Relationship Specialty Start Date End Date Erlinda Nunez MD PCP - General Family Practice 01/02/11 Form Setter Supervisor Relationship Specialty Start Date End Date Erlinda Nunez MD PCP - General Family Practice 01/02/11 Form Setter Supervisor Relationship Specialty Start Date End Date Erlinda Nunez MD PCP - General Family Practice 01/02/11 Form Setter Supervisor Relationship Specialty Start Date End Date Erlinda Nunez MD PCP - General Family Practice 01/02/11 Form Setter Supervisor Relationship Specialty Start Date End Date Erlinda Nunez MD PCP - General Family Practice 01/02/11 Form Setter Supervisor Relationship Specialty Start Date End Date Erlinda Nunez MD PCP - General Family Practice 01/02/11 Form Setter Supervisor Relationship Specialty Start Date End Date Erlinda Nunez MD PCP - General Family Medicine 01/02/11 Form Setter Supervisor Relationship Specialty Start Date End Date Erlinda Nunez MD PCP - General Family Medicine 01/02/11 Form Setter Supervisor Relationship Specialty Start Date End Date Erlinda Nunez MD PCP - General Family Medicine 01/02/11 Form Setter Supervisor Relationship Specialty Start Date End Date Erlinda Nunez MD PCP - General Family Medicine 01/02/11 Form Setter Supervisor Relationship Specialty Start Date End Date Erlinda Nunez MD PCP - General Family Medicine 01/02/11 Form Setter Supervisor Relationship Specialty Start Date End Date Erlinda Nunez MD PCP - General Family Medicine 01/02/11 Form Setter Supervisor Relationship Specialty Start Date End Date Erlinda Nunez MD PCP - General Family Medicine 01/02/11 Team Status: Active Member Role Status Navjot Nunez MD Primary Care Provider Active Team Status: Inactive Member Role Status Navjot Nunez MD Primary Care Provider Active Davis Mir DO Emergency Provider Active Form Setter Supervisor Relationship Specialty Start Date End Date Erlinda Nunez MD PCP - General Family Medicine 01/02/11 Form Setter Supervisor Relationship Specialty Start Date End Date Erlinda Nunez MD PCP - General Family Medicine 01/02/11 Form Setter Supervisor Relationship Specialty Start Date End Date Erlinda Nunez MD PCP - General Family Medicine 01/02/11 Form Setter Supervisor Relationship Specialty Start Date End Date Erlinda Nunez MD PCP - General Family Medicine 01/02/11 Form Setter Supervisor Relationship Specialty Start Date End Date Erlinda Nunez MD PCP - General Family Medicine 01/02/11 Form Setter Supervisor Relationship Specialty Start Date End Date Erlinda Nunez MD PCP - General Family Medicine 01/02/11 Form Setter Supervisor Relationship Specialty Start Date End Date Erlinda Nunez MD PCP - General Family Medicine 01/02/11 Form Setter Supervisor Relationship Specialty Start Date End Date Erlinda Nunez MD PCP - General Family Medicine 01/02/11 Form Setter Supervisor Relationship Specialty Start Date End Date Erlinda Nunez MD PCP - General Family Medicine 01/02/11 Form Setter Supervisor Relationship Specialty Start Date End Date Erlinda [...] BE BASED ON THE PRIMARY CLINICAL RECORDS. [facility] [employer] [facility]. provides no warranty or guarantee of the accuracy or completeness of information in this document.
--- NOTE | 2023-05-22 21:46 | ED_ITS ---
HPI - Extremity Injury (Lower) General Chief Complaint: Extremity Injury, Lower Stated Complaint: Lower extremity pain Time Seen by Provider: 05/22/23 21:35 Source: patient Mode of arrival: walk-in Limitations: no limitations History of Present Illness HPI Narrative: 42-year-old male presents for pain in both knees, left greater than right. He's had previous meniscal surgery on his left knee and week ago had an MRI of the knee. Today however he fell down some stairs when his right knee gave out and he hit his left knee on the frame. No other injury was sustained. He's been able to walk with his cane. Related Data Home Medications Medication Instructions Recorded Confirmed Phenergan 25 mg PO TID PRN nausea and 12/04/22 05/22/23 vomiting clonazepam 2 mg tablet 2 mg PO TID 12/05/22 05/22/23 cyproheptadine 4 mg tablet 4 mg PO Q12H 12/05/22 05/22/23 lacosamide 100 mg tablet 100 mg PO Q12H 12/05/22 05/22/23 quetiapine 50 mg tablet 50 mg PO TID PRN anxiety 12/05/22 05/22/23 rizatriptan 10 mg disintegrating See Rx Instructions PO .COMPLEX 12/05/22 05/22/23 tablet (Maxalt-[employer]) sertraline 100 mg tablet 200 mg PO Q24H 12/05/22 05/22/23 simvastatin 20 mg tablet 20 mg PO DAILY 12/05/22 05/22/23 albuterol sulfate 90 mcg/actuation 1 inh inhalation Q4H PRN shortness 01/19/23 05/22/23 aerosol inhaler of breath or wheezing fluticasone propionate 50 1 spray intranasal .QD 01/19/23 05/22/23 mcg/actuation nasal spray,suspension diclofenac sodium 75 mg 75 mg PO Q12H PRN pain 03/29/23 05/22/23 tablet,delayed release erenumab-aooe 140 mg/mL 140 mg subcut .MONTHLY 03/29/23 05/22/23 subcutaneous auto-injector (Aimovig Autoinjector) quetiapine 300 mg tablet 300 mg PO .QHS 03/29/23 05/22/23 lurasidone 40 mg tablet 40 mg PO DAILY 05/22/23 05/22/23 Previous Rx's Medication Instructions Recorded acetaminophen 300 mg-codeine 30 mg 1 tab PO Q6H PRN pain 3 days #14 05/22/23 tablet tabs Allergies Allergy/AdvReac Type Severity Reaction Status Date / Time desvenlafaxine [From Pristiq] Allergy Unknown Verified 03/29/23 04:57 keppra Allergy Unknown Uncoded 03/29/23 04:57 Review of Systems ROS Narrative A ten point review of systems is negative except as noted above. PFSH PFSH Medical History (Updated 05/22/23 @ 22:24 by Chandler Sneed MD) PTSD (post-traumatic stress disorder) ?F43.10 - Post-traumatic stress disorder, unspecified (ICD-10) Migraine ?G43.909 - Migraine, unspecified, not intractable, without status migrainosus (ICD-10) HIMA (obstructive sleep apnea) ?G47.33 - Obstructive sleep apnea (adult) (pediatric) (ICD-10) Insomnia ?G47.00 - Insomnia, unspecified (ICD-10) GERD (gastroesophageal reflux disease) ?K21.9 - Gastro-esophageal reflux disease without esophagitis (ICD-10) Suicidal ideation ?R45.851 - Suicidal ideations (ICD-10) Bipolar 1 disorder ?F31.9 - Bipolar disorder, unspecified (ICD-10) Anxiety ?F41.9 - Anxiety disorder, unspecified (ICD-10) Respiratory failure requiring intubation ?J96.90 - Respiratory failure, unspecified, unspecified whether with hypoxia or hypercapnia (ICD-10) Depression ?F32.A - Depression, unspecified (ICD-10) Epilepsy ?G40.909 - Epilepsy, unspecified, not intractable, without status epilepticus (ICD-10) Surgical History (Updated 01/19/23 @ 23:52 by Karli Aguirre) 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 ?Z96.89 - Presence of other specified functional implants (ICD-10) Social History Smoking status: Never smoker Exam Narrative Exam Narrative: Nurses note and vital signs reviewed and patient is not hypoxic. General: The patient appears well and in no apparent distress. Patient is resting comfortably on cart. Skin: Warm, dry, no pallor noted. There is no rash noted. Head: Normocephalic, atraumatic Eye: Normal conjunctiva, no drainage Ears, Nose, Mouth, and Throat: oral mucosa is moist. Nares patent. Cardiovascular: Regular Rate and Rhythm Respiratory: Patient is in no distress, no accessory muscle use Back: non-tender GI: Normal bowel sounds, no tenderness to palpation, no masses appreciated. No rebound, guarding, or rigidity noted. Musculoskeletal: neither knee has erythema bruise or abrasion. There seems to be some tenderness medially on the right knee and laterally on the left. Neurological: A&O, normal speech Psychiatric: Cooperative Constitutional Vital Signs, click to edit/add: Last Vital Signs Temp 97.7 F 05/22/23 21:32 Pulse 97 H 05/22/23 21:32 Resp 18 05/22/23 21:32 BP 142/84 H 05/22/23 21:32 Pulse Ox 96 05/22/23 21:32 O2 Del Method Room Air 05/22/23 21:32 Course Vital Signs Vital signs: Vital Signs Temperature 97.7 F 05/22/23 21:32 Pulse Rate 97 H 05/22/23 21:32 Respiratory Rate 18 05/22/23 21:32 Blood Pressure 142/84 H 05/22/23 21:32 Pulse Oximetry 96 05/22/23 21:32 Oxygen Delivery Method Room Air 05/22/23 21:32 Temperature 97.7 F 05/22/23 21:32 Pulse Rate 97 H 05/22/23 21:32 Respiratory Rate 18 05/22/23 21:32 Blood Pressure 142/84 H 05/22/23 21:32 Pulse Oximetry 96 05/22/23 21:32 Oxygen Delivery Method Room Air 05/22/23 21:32 MDM - Extremity Injury (Lower) MDM Narrative Medical decision making narrative: X-rays per radiologist showed no acute findings and he'll be treated symptomatically. Treatment diagnosis and follow-up were discussed with the patient. Imaging Data bilateral knee x-rays: Radiologist's impression: Procedure: XR knee ESA 3V EXAM: XR knee SEA 3V HISTORY: fall COMPARISON: None. TECHNIQUE: Bilateral knees (6 images) FINDINGS: No acute fracture or aggressive osseous abnormality. Joint spaces and alignment are preserved. No joint effusion. IMPRESSION: No acute osseous abnormality of the knees. Electronically authenticated by: RU TOBAR Date: 05/22/2023 Discharge Plan Discharge Chief Complaint: Extremity Injury, Lower Clinical Impression: Acute bilateral knee pain Patient Disposition: Home, Self-Care Time of Disposition Decision: 22:24 Condition: Good Mode of Transportation: Private Vehicle Prescriptions / Home Meds: New acetaminophen-codeine 300-30 mg tablet 1 tab PO Q6H PRN (Reason: pain) 3 Days Qty: 14 0RF No Action Phenergan 25 mg tablet 25 mg PO TID PRN (Reason: nausea and vomiting) Rx Instructions: TID for nausea rizatriptan [Maxalt-[employer]] 10 mg tablet,disintegrating See Rx Instructions .ROUTE .COMPLEX Rx Instructions: take 1 tab at onset of headache; if no relief may repeat 1 tab after at least 2 hrs; max = 3 tabs/24 hr quetiapine 50 mg tablet 50 mg PO TID PRN (Reason: anxiety) lacosamide 100 mg tablet 100 mg PO Q12H clonazepam 2 mg tablet 2 mg PO TID cyproheptadine 4 mg tablet 4 mg PO Q12H sertraline 100 mg tablet 200 mg PO Q24H simvastatin 20 mg tablet 20 mg PO DAILY Rx Instructions: HS lurasidone 40 mg tablet 40 mg PO DAILY albuterol sulfate 90 mcg/actuation HFA aerosol inhaler 1 inh INHALATION Q4H PRN (Reason: shortness of breath or wheezing) fluticasone propionate 50 mcg/actuation spray,suspension 1 spray INTRANASAL .QD quetiapine 300 mg tablet 300 mg PO .QHS diclofenac sodium 75 mg tablet,delayed release (DR/EC) 75 mg PO Q12H PRN (Reason: pain) Rx Instructions: 03/09/23 FOR 30 DAYS Aimovig Autoinjector 140 mg/mL auto-injector 140 mg SUBCUT .MONTHLY Rx Instructions: 140 MG ONCE A MONTH 03/05/23 Instructions: Knee Pain (ED) Stand Alone Forms: Portal Instructions Referrals: Uriel Clements MD [Primary Care Provider] - 1 week
--- NOTE | 2023-05-22 21:46 | XR_ITS ---
The [address] [address] Patient Name: AMEYA MEZA MRN: [id number] date: 1980 Sex: M Assigned Patient Location: ER Current Patient Location: ER Accession/Order Number: [id number] Exam Date: 05/22/2023 21:48 Report Date: 05/22/2023 22:11 At the request of: ROSEMARY MEEKS Procedure: XR knee SEA 3V EXAM: XR knee SEA 3V HISTORY: fall COMPARISON: None. TECHNIQUE: Bilateral knees (6 images) FINDINGS: No acute fracture or aggressive osseous abnormality. Joint spaces and alignment are preserved. No joint effusion. XR/XR knee SEA 3V IMPRESSION: No acute osseous abnormality of the knees. Electronically authenticated by: RU TOBAR Date: 05/22/2023 22:11
[2023-05-22 22:43] VITALS: BP 130/78; PULSE 99; O2SAT 97
== END 2023-05-22 22:44 | disposition home or self-care (01) ==
PROVIDERS: Emergency Provider Emergency Medicine; PCP Family Medicine
DX: M25.562 Pain in left knee (principal); M25.561 Pain in right knee; Z91.81 History of falling; Z79.899 Other long term (current) drug therapy; F43.10 Post-traumatic stress disorder, unspecified; G47.33 Obstructive sleep apnea (adult) (pediatric); G47.00 Insomnia, unspecified; K21.9 Gastro-esophageal reflux disease without esophagitis; F31.9 Bipolar disorder, unspecified; F41.9 Anxiety disorder, unspecified; G40.909 Epilepsy, unspecified, not intractable, without status epilepticus; Z96.89 Presence of other specified functional implants
CPT/HCPCS: 73562; 99283

== ENCOUNTER 2023-07-10 23:57 | Emergency (ER) | payer MEDICARE, MEDICAID, SELFPAY ==
[2023-07-11 00:03] VITALS: BP 147/85; PULSE 86; RESP 18; TEMP 36.5; O2SAT 100; BMI 29.3
--- OUTSIDE RECORDS SUMMARY | 2023-07-11 00:06 | XMS_ITS | CCD ---
Author Name Unknown Address [address] [place] [address] Organization [facility] Care Team Providers Care Electronics Processor Name Role Phone SIRISHAALISTAIRSAMUELJulianeCESAR Unavailable Unavailable Erlinda Nunez MD Primary Care Provider [phone] Erlinda Nunez MD Primary Care Provider [phone] Erlinda Nunez MD Primary Care Provider [phone] Erlinda Nunez MD Primary Care Provider [phone] DR ERLINDA LAU Primary Care Unavailable JARRED, KEVIN Admitting Unavailable JARRED, KEVIN Attending Unavailable JARRED, KEVIN Consulting Unavailable GIANNA GIMary Kay Consulting Unavailable CHARLY, OTF Consulting Unavailable ENRIQUE Huerta, DR COFFEY [...] HOY ., DR COFFEY Primary Care Unavailable ALEXANDERY ., DR COFFEY Admitting Unavailable ALEXANDERY ., DR COFFEY Attending Unavailable ALEXANDERY ., DR COFFEY Primary Care Unavailable ENRIQUE ., DR COFFEY Admitting Unavailable ENRIQUE ., DR COFFEY Attending Unavailable ENRIQUE ., DR COFFEY Primary Care Unavailable ENRIQUE ., DR COFFEY Consulting Unavailable EMILY, DR MIRIAM Norton Consulting Unavailable ENRIQUE Huerta, DR COFFEY Primary Care Unavailable JARRED, KEVIN Admitting Unavailable JARRED, KEVIN Attending Unavailable JARRED, KEVIN Consulting Unavailable DOMINIC ROMERO Consulting Unavailable Erlinda Nunez Primary Care Physician [phone] MD Erlinda Nunez Primary Care Provider [phone] DO Davis Mir Emergency Provider Davis Mir Attending Unavailable Hoy, Erlinda M Primary Care Unavailable Tupa, Davis M Admitting Unavailable Hoy, Erlinda M Primary Care Unavailable Tupa, Davis M Admitting Unavailable Tupa, Davis Browning Attending Unavailable PAOLA MICHEL Attending Unavailable MARILU, PAOLA Díaz Attending Unavailable PAOLA MICHEL Referring Unavailable NICK ROBERTSON Attending Unavailable HOY, ERLINDA M Primary Care Unavailable DO Issa Levy Attending Unavailable Nassar, Scott T Referring Unavailable Nassar, Scott T Attending Unavailable Nassar, Scott T Admitting Unavailable LueNahed Attending Unavailable LueNahed Attending Unavailable LueNahed MBradley Attending Unavailable Nassar, Scott T Referring Unavailable Nassar, Scott T Attending Unavailable Nassar, Scott T Admitting Unavailable LueNahed Attending Unavailable Nahed Doran Admitting Unavailable Virgil Dozier Attending Unavailable HOY, ERLINDA M Primary Care Unavailable DETTLING, JOSI Referring Unavailable HOY, ERLINDA M Primary Care Unavailable DETTLING, JOSI Referring Unavailable HOY, ERLINDA M Primary Care Unavailable DETTLING, JOSI Referring Unavailable MYA TENA Attending Lazarus grady HOY, ERLINDA M Primary Care Unavailable DETTLING, JOSI Referring Unavailable DETTLING, JOSI Referring Unavailable HOY, ERLINDA M Primary Care Unavailable DETTLING, JOSI Referring Unavailable HOY, ERLINDA M Primary Care Unavailable MYA TENA Referring Unavai lable HOY, ERLINDA M Primary Care Unavailable HOY, ERLINDA M Primary Care Unavailable DETTLING, JOSI Referring Unavailable HOY, ERLINDA M Primary Care Unavailable DETTLING, JOSI Referring Unavailable HOY, ERLINDA M Primary Care Unavailable MYA TENA Referring MYA Ballesteros Attending Lazarus grady HOY, ERLINDA M Primary Care Unavailable DETTLING, JOSI Referring Unavailable HOY, ERLINDA M Primary Care Unavailable DETTLING, JOSI Referring Unavailable HOY, ERLINDA M Primary Care Unavailable DETTLING, JOSI Referring Unavailable MICHAEL CORDOBA Referring Unavailab le HOY, ERLINDA M Primary Care Unavailable AJZMIN SKELTON Attending Unavailable [facility], MICHAEL EATON Referring Unavailab le HOY, ERLINDA M Primary Care Unavailable DETTLING, JOSI Attending Unavailable HOY, ERLINDA M Primary Care Unavailable DETTLING, JOSI Referring Unavailable HOY, ERLINDA M Primary Care Unavailable DETTLING, JOSI Referring Unavailable HOY, ERLINDA M Primary Care Unavailable DETTLING, JOSI Referring Unavailable MYA TENA Referring Unavai lable HOY, ERLINDA M Primary Care Unavailable HOY, ERLINDA M Primary Care Unavailable DETTLING, JOSI Referring Unavailable HOY, ERLINDA M Primary Care Unavailable DETTLING, JOSI Referring Unavailable DETTLING, JOSI Referring Unavailable HOY, ERLINDA M Primary Care Unavailable HOY, ERLINDA M Primary Care Unavailable DETTLING, JOSI Referring Unavailable MYA TENA Attending Unavajuliane grady DETTLING, JOSI Referring Unavailable HOY, ERLINDA M Primary Care Unavailable HOY, ERLINDA M Primary Care Unavailable DETTLING, JOSI Referring Unavailable BILLIE ALONSO Attending Unavailable HOY, ERLINDA M Primary Care Unavailable KARI BECKER Referring Unavailable ALONSOIBLLIE Attending Unavailable HOY, ERLINDA M Primary Care Unavailable HOY, ERLINDA M Primary Care Unavailable [facility], MICHAEL EATON Attending Unavailab le HOY, ERLINDA M Primary Care Unavailable NADIRA PURDY Attending Unavailable HILLS, PAOLA Referring Unavailable HOY, ERLINDA M Primary Care Unavailable [facility], MICHAEL EATON Attending Unavailab le HOY, ERLINDA M Primary Care Unavailable MARILU, PAOLA Referring Unavailable NADIRA PURDY Attending Unavailable HILLS, PAOLA Referring Unavailable HOY, ERLINDA M Primary Care Unavailable SELF Referring Unavailable [facility], MICHAEL EATON Attending Unavailab le HOY, ERLINDA M Primary Care Unavailable HOY, ERLINDA M Primary Care Unavailable NADIRA PURDY Attending Unavailable HOY, ERLINDA M Primary Care Unavailable LINO MENDIOLA Attending Unavailable HOY, ERLINDA M Primary Care Unavailable HOY, ERLINDA M Primary Care Unavailable [facility], MICHAEL EATON Attending Unavailab le LINO MENDIOLA Attending Unavailable HOY, ERLINDA M Primary Care Unavailable MELLY NEWTON Attending Unavailable SIEKE, MELLY Referring Unavailable HOY, ERLINDA M Primary Care Unavailable NADIRA PURDY Attending Unavailable ALEXANDERERLINDA Lee M Primary Care Unavailable ERLINDA NUNEZ M Primary Care Unavailable ERLINDA NUNEZ M Primary Care Unavailable ERVIN GRANT Attending Unavaila ERLINDA Silva M Primary Care Unavailable BILLIE ALONSO Attending Unavailable ERLINDA NUNEZ M Primary Care Unavailable MICHAEL CORDOBA Attending UnavailLINO Arvizu Attending Unavailable ALEXANDERERLINDA Lee M Primary Care Unavailable Allergies Allergy Classification Reported Allergen(s) Allergy Type Date of Onset Reaction(s) Facility (20 sources) Desvenlafaxine; Translations: [desvenlafaxine] Drug Allergy 4 Other: See Comments [facility] (20 sources) Ketorolac; Translations: [KETOROLAC TROMETHAMINE] Drug Allergy 7 Unknown [facility] (20 sources) levETIRAcetam; Translations: [levetiracetam] Drug Allergy 1 Other: See Comments, Unknown (qualifier value) [facility] (1 source) Acetaminophen / oxyCODONE Drug Allergy [facility] (3 sources) Desvenlafaxine; Translations: [Pristiq] Drug Allergy [facility] (2 sources) Ketorolac Drug Allergy 1 [facility] (3 sources) levETIRAcetam; Translations: [Keppra] Drug Allergy [facility] (1 source) Mazindol Drug Allergy [facility] (1 source) Desvenlafaxine Drug Allergy 3 [facility] Repository (1 source) levETIRAcetam Drug Allergy [address] [place] [address] Repository Medications Current Medications Medication Drug Class(es) [...] mg oral tablet (20 sources) Benzodiazepine Start: 11-27-2009 End: 10-09-2023 clonazePAM (KLONOPIN) 2 mg tablet Indications: Partial epilepsy with impairment of consciousness, intractable (HCC) Take one(1) tablet three times daily. 90 tablet 5 04/10/2023 10/09/2023 Active Comment on above: Take 1 tablet by gisella three times daily for 180 days. Take one(1) tablet t hree times daily Take one(1) tablet t hree times daily. cyproheptadine hydrochloride 4 mg oral tablet (20 sources) Start: 03-04-2023 cyproheptadine 4 mg Tab Refills(s) 0 Start Date: 03/04/23 Status: Ordered Start: 01-04-2016 End: 09-07-2018 take 4 mg by mouth twice daily Cyproheptadine Discontinued 4 MG PO Twice daily February 09, 2017 12:00am September 07, 2018 3:53pm Comment on above: Take 4 mg by mouth t wice daily. diclofenac sodium 0.01 mg/mg topical gel (6 sources) Nonsteroidal Anti-inflammatory Drug Start: 04-22-2023 Voltaren Gel 1% Gel 1 elijah, Topical, QID for pain, 100 gram, Refill(s) 0, [facility]/pharmacy #[id number], 178, cm, 04/22/23 21:32:00 EST, Height/Length [...] (FLONASE) 50 mcg/actuation nasal spray Use 1 [place] in each nostril twice daily. 0 Active Comment on above: Use 1 [place] in each nostril twice daily. indomethacin 75 [...] Comment on above: Take 1 capsule by [facility] twice daily with meals. lacosamide 100 mg oral tablet (20 sources) Anti-epileptic Agent Start: 09-19-2022 take 100 mg by mouth three times daily lacosamide 100 mg, Oral, TID, Seizure Start Date: 09/19/22 Status: Ordered Start: 06-18-2021 End: 04-09-2024 take 1 tablet by mouth twice daily lacosamide (VIMPAT) 100 mg tab Indications: Partial epilepsy with impairment of consciousness, intractable (HCC) Take 1 tablet by mouth two times a day. 60 tablet 11 04/10/2023 04/09/2024 Active Start: 01-15-2017 [facility] Lacosamide (Vimpat) 100 mg Tablet Active 300 MG PO Daily January 15, 2017 12:00am Comment on above: Take 1 tablet by [facility] twice daily for 180 days. Take 1 tablet by [facility] twice daily for 90 days. Take 1 tablet by [facility] twice daily. Take 1 tablet by [facility] two times a day. 24 hr propranolol hydrochloride 120 mg extended release oral capsule (1 source) beta-Adrenergic Jeremías Start: 7 take 1 capsule by mouth once daily Propranolol (Inderal La) 120 mg Capsule,Extended Release 24 Hr Active 120 MG PO daily January 15, 2017 12:00am sertraline 100 mg oral tablet (20 sources) Serotonin Reuptake Inhibitor Start: 2 End: 4 take 3 tablets by mouth once daily sertraline (ZOLOFT) 100 mg tablet Take 3 tablets by mouth once daily. 90 tablet 11 10/17/2022 10/17/2023 Active Start: 02-02-2020 End: 10-06-2021 take 3 tablets by mouth once daily sertraline (ZOLOFT) 100 mg tablet Take 3 tablets by mouth once daily. 90 tablet 5 04/09/2021 10/06/2021 Active Start: 01-15-2017 take 300 mg by mouth once daily at bedtime Sertraline Active 300 MG PO Daily at bedtime January 15, 2017 12:00am Comment on above: Take 3 tablets by [facility] once daily. simvastatin 20 mg oral tablet (5 sources) HMG-CoA Reductase Inhibitor Start: 3 take [...] day(s), # 12 tab(s), Refills(s) 0, Pharmacy: [facility]/pharmacy #[id number], 178, cm, 04/22/23 21:32:00 EST, Height/Length [...] by mouth every 4 hours as needed. [id number] 200 actuat albuterol 0.09 mg/actuat metered dose [...] oral tablet (1 source) Tricyclic Antidepressant Start: End: take 25 mg by mouth twice daily Amitriptyline Discontinued 25 MG PO Twice daily 60 January 20, 2017 12:00am September 07, 2018 3:53pm amoxicillin 875 mg / clavulanate 125 mg oral tablet (1 source) Penicillin-class Antibacterial Start: 017 End: take 875 mg by mouth twice [...] and PS 4-8cmh2O. His DME company is [employer] , new mask to fit patient preference, [...] and PS 4-8cmh2O. His DME company is [employer] , new mask to fit patient preference, ramp, humidification and unlimited supplies Please send us machine download in 1 month Please send us [employer] download in 1 month cyclobenzaprine hydrochloride [...] Comment on above: Take 1 capsule by [facility] twice daily as needed for Constipation. 1 ml erenumab-aooe 140 mg/ml auto-injector (11 sources) Start: 2022 inject 1 mL by [...] 24 hours.) for up to 180 days. lurasidone hydrochloride 40 mg oral tablet (2 sources) Atypical Antipsychotic Start : 05-08 End: 06-03 take 1 tablet by mouth once daily at dinner lurasidone (LATUDA) 40 mg tablet Take 1 tablet by mouth daily with dinner. 30 tablet 0 05/08/2023 06/03/2023 Discontinued Comment on above: Take 1 tablet by gisella th daily with dinner. methylPREDNISolone (2 sources) Corticosteroid Start : 12-16 [...] Active Comment on above: Use as directed. nadolol 80 mg oral tablet (20 sources) beta-Adrenergic Jeremías Start: 08-12-2022 End: 11-10-2022 take 1 tablet [...] on above: Take 1 tablet by gisella once daily. omeprazole 40 mg delayed release oral capsule [...] 15, 2017 12:00am September 07, 2018 3:53pm promethazine hydrochloride 25 mg oral tablet (20 sources) Phenothiazine Start: 12-12-2022 End: 03-26-2023 take 1 tablet by mouth three times daily as needed for nausea promethazine (PHENERGAN) 25 mg tablet Indications: Chronic migraine without aura without status migrainosus, not intractable 1 po tid prn headache or nausea 90 tablet 0 03/26/2023 Active Start: 08-12-2022 End: 12-09-2022 take 1 tablet by mouth three times daily as needed for nausea promethazine (PHENERGAN) 25 mg tablet Indications: Chronic migraine without aura without status migrainosus, not intractable 1 po tid prn headache or nausea 90 tablet 3 08/12/2022 12/09/2022 Discontinued Start: 10-24-2020 take 1 tablet by gisella th three times daily as needed for nausea promethazine (PHENERGAN) 25 mg tablet 1 po tid prn headache or nausea 90 tablet 3 10/24/2020 Active Comment on above: 1 po tid prn headach e or nausea QUEtiapine 200 mg oral tablet (20 sources) Atypical Antipsychotic Start: End: take 1 tablet by mouth once daily at bedtime QUEtiapine (SEROQUEL) 200 mg tablet Take 1 tablet by mouth daily at bedtime. 30 tablet 2 05/08/2023 06/25/2023 Discontinued Start: 01-26-2023 End: 05-01-2023 take 1 tablet [...] 5 07/17/2022 12/10/2022 Discontinued Start: 10-25-2021 End: 01-23-2022 take 1 tablet by mouth twice daily QUEtiapine (SEROQUEL) 300 mg tablet Take 1 tablet by mouth twice daily. 60 tablet 2 10/25/2021 01/23/2022 Active Start: 10-25-2021 End: 02-24-2023 take 1 tablet by mouth every eight hours as needed QUEtiapine (SEROQUEL) 50 mg tablet take 1 tablet by mouth three times daily as needed for anxiety 90 tablet 10 02/02/2023 Active Start: 10-25-2021 take 1 tablet by [...] anxiety rizatriptan 10 mg disintegrating oral tablet (20 sources) Serotonin-1b and Serotonin-1d Receptor Agonist Start: 12-13-19 take 1 tablet by mouth every two hours as needed for headache rizatriptan (MAXALT-MEDICAL NUMERICAL CONTROL OPERATOR) 10 mg disintegrating tablet Indications: Chronic migraine [...] two hours as needed for headache rizatriptan (MAXALT-MEDICAL NUMERICAL CONTROL OPERATOR) 10 mg disintegrating tablet Indications: Chronic migraine [...] Chronic Attention-deficit, conduct, and disruptive behavior disorders (18 sources) Attention deficit hyperactivity disorder 10-26-2009 Chronic Calculus of urinary tract (5 sources) History of calculus of kidney; Translations: [Personal history of urinary calculi] Onset: 3 Episodic Cardiac dysrhythmias (1 source) Supraventricular tachycardia; Translations: [SUPRAVENTRICULAR TACHYCARDIA] Onset: 2 Chronic Cardiac dysrhythmias (18 sources) Tachyarrhythmia ; Translations: [Tachycardia] 07-29-2013 Episodic [...] h impairment of consciousness intractable Epilepsy; convulsions (12 sources) Seizure 11-03-2013 Episodic Comment on above: complex partial seiz ures evolving to generalized tonic-clonic seizures Esophageal disorders (20 sources) Gastroesophageal reflux disease without esophagitis; Translations: [Gastro-esophageal reflux disease without esophagitis] Onset: 8 02-03-2018 Chronic Essential hypertension (1 source) Essential (primary) hypertension; Translations: [Hypertension, essential] Onset: 3 Chronic Genitourinary symptoms and ill-defined conditions (13 sources) Blood in urine; Translations: [Gross hematuria] Onset: 3 Episodic Headache; including migraine (20 sources) Migraine; Translations: [Migraine without aura, not [...] 2 Chronic Other aftercare (1 source) Other long term care pharmacist (current) drug therapy; Translations: [[facility] CURRENT DRUG THERAPY] Onset: 3 Episodic Other diseases of kidney and ureters (1 source) Urinary tract obstruction; Translations: [Hydronephrosis with renal and ureteral calculous obstruction] Onset: 3 Episodic Other lower respiratory disease (6 sources) Apnea 12-29-2013 Episodic Other nervous system [...] Chronic Other nutritional; endocrine; and metabolic disorders (6 sources) Obesity 09-19-2022 Chronic Residual codes; unclassified [...] IMPLANTS] Onset: 9 Chronic Residual codes; unclassified (6 sources) Sleep apnea 09-19-2022 Chronic Comment on [...] ureter] Onset: 3 Episodic Residual codes; unclassified (4 sources) Family history of renal stone 03-04-2023 Episodic Spondylosis; intervertebral disc disorders; other back problems (1 source) Tenderness of neck; Translations: [Cervicalgia] Episodic Sprains and strains (2 sources) Strain of unspecified muscle, fascia and tendon at shoulder and upper arm level, right arm, initial encounter; Translations: [Sprain of unspecified site of left knee, initial encounter] Onset: 7 Episodic Substance-related disorders (5 sources) Smoker 09-21-2022 Chronic Comment on above: Added secondary to d ocumentation in Social History. Suicide and intentional self-inflicted injury (7 sources) Suicide attempt ; Translations: [Suicidal thoughts] [...] W/AND (SUSP) EXPOS COVID-19] Onset: 2 Unclassified (6 sources) vagel nerve stimulator 05-23-2010 Unclassified (4 sources) Obstructive hydronephrosis 02-25-2023 Unclassified (1 source) [...] OF OTHER SPECIFIED DEVICES] Onset: 01-07-2022 Episodic Respiratory failure; insufficiency; arrest (adult) (20 sources) Respiratory failure; Translations: [Respiratory failure, unspecified, unspecified whether with hypoxia or hypercapnia] Onset: 04-07-2016 04-07-2016 Episodic Comment on above: respiratory failure requiring intubation after suicide attempt in 2016 Screening and history of mental health and substance abuse codes (20 sources) H/O: attempted suicide; Translations: [Hx of suicide attempt] Onset: 04-07-2016 04-07-2016 Episodic Unclassified (1 source) LOW BACK PAIN, UNSPECIFIED; Translations: [LOW BACK PAIN, UNSPECIFIED] Onset: 07-28-2022 Results Test Name Value Interpretation Reference Range Facility [facility] 06-24-2023 CNDS HNO ID: [id number] Author: SARAH RAE [facility] Service: Behavioral Health IOP (Intensive Outpatient Program) Author Type: Therapist Type: Discharge Summary Filed: 06/24/2023 15:17 Note Text: Summary: DBT IOP Discharge Summary BEHAVIORAL HEALTH IOP (INTENSIVE OUTPATIENT PROGRAM) CLOSING SUMMARY OPENING/ADMIT DATE: 05/13/23 CLOSING/TERMINATION DATE: 06/24/23 DATE OF LAST CONTACT: 06/24/23 PRESENTING COMPLAINT: From HANDP completed by Josi Queen PA-C on 05/12/23: 'This is a 42 year old Single (never [...] 7 years, three of which led to hospitalization.' UNRESOLVED PROBLEMS: Be able to process my emotions and thoughts better. Not let things build up. Short Term [...] out. Date Initiated: 05/13/23 Target Date: 06/24/23 Closed 06/24/23: Pt reports ongoing difficulty with identifying and naming emotions, including recognizing and being mindful to body sensations and action urges, however had increased awareness of mindfulness skills that he will benefit from continuing to practice (mindfulness to body, mindfulness to emotions). Pt recognizes that while distraction is a helpful way he ayla with suicidal ideation, it acts as a barrier to being more mindfully present in the moment most times. GOALS MET: Get my anger under control. Better coping techniques. Short Term Objective Statement (behavioral measurable time [...] thoughts.? Date Initiated: 05/13/23 Target Date: 06/24/23 Closed 06/24/23: Pt recently disclosed to DBT staff of daily experiences of active SI that he was initially not reporting or identifying in check-in or on diary cards out of fear of being pink-slipped. Pt reports that these thoughts have decreased in intensity over the last week and are now passive and fleeting in nature, noting they are in the background . Pt continues to identify distraction as the most beneficial skill for coping with SI thoughts. Pt is willing to seek additional support at a local emergency room ([facility]) if needed, and has also been willing to reach out to local and national crisis hotline numbers as well as part of safety plan for managing crises. Short Term Objective Statement (behavioral measurable time frame): Pt will be mindful of the emotion of anger, including resulting urges to lash out at others. Pt will learn and practice the skill of opposite action to anger, to gently avoid and take a time out to refrain from lashing out, and will implement 2-3 times each week. Pt will learn and implement the KOMAL skill (more content not included)... [facility]: [id number] (Intensive Outpatient Program) Author Type: Therapist Type: Discharge Summary Filed: 06/24/2023 12:33 Note Text: Summary: DBT IOP Discharge Instructions [facility], [place] Intensive Outpatient Program [address] [place] [address] IOP (INTENSIVE OUTPATIENT PROGRAM) PATIENT DISCHARGE INSTRUCTIONS C O N F I D E N T I A L I N F O R M A T I O N The following is a summary of your discharge instructions. Some of the information contained on this summary may be confidential. This information should be kept in your records and should be shared with your regular doctor. Patient Name: Bishnu Coles If you have any questions or concerns about your medication(s) please contact the prescribing physician. Your follow-up appointments include: Psychiatry: Michael Cordoba APRN.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 - 06/26/23 @ 12pm Therapy: ALVIN Perez - therapist currently on leave, returning next week, Pt to be scheduled by therapist when he returns next week. Social work: ALVIN Lopez - call to schedule, Recommended Community Resources: [facility]/Emergency 24-Hour Mental Health and [facility] Line for Adults and Children [facility] First Call for Help or 211 [facility] Lifeline-Suicide Prevention 0-830-899-TALK ([phone]) Suicide Prevention Hotlines [facility]: 117.894.8294 [place] ([employer] [place] on Mental Illness) . Info referral line Bishnu, You?ve worked really hard these past six weeks and it shows! It?s been so nice working with you, seeing you apply the skills that you?ve learned, and we wish you all the best! The DBT team I have received a copy of the above instructions and understand them. SIGNED:___Sent to Patient via [employer] due to Teletherapy/Covid-19__ Date: Time:___ Patient/Significant Other SAFETY PLAN Patient name: Bishnu Coles Date of this plan: 04/27/2023 Updated 06/24/2023 Step 1: Warning signs - Things that may trigger me to feel that terribly again: Isolating self Cut off contact with others There is no tomorrow kind of feeling Too much pain Feeling hopeless Mentally exhausted Step 2: Internal coping strategies - Things I can do to take my mind off my problems without contacting another person: Working/picking up a shift Playing games on tablet Going for a drive Reading Step 3: People and social settings that provide a distraction - Where could I go or who could I see that would help me feel better: Name: Sister/Nida Play with cat (Tigger) Place: nature trail Place: the alvares Step 4: People I can ask for help - Who can I contact and talk to about how I am feeling: Name: Sister/Nida Will I share this plan with any of the above people: Sister/Nida Step 5: Professionals or agencies I can contact during a crisis: Diandra Krishnamurthy Mobile Crisis/Suicide Prevention Line / [phone] Text ?4Hope? to 496379 National Suicide Prevention Lifeline / 347.772.3507 [facility] Phone: [phone]-RVDM ([phone]) Other Local Emergency Service: [facility] Clinician Name: Michael Cordoba Phone: Clinician Pager or Emergency Contact #: Clinician Name: ALVIN Perez Clinician Pager or Emergency Contact #: Emergency Services Phone [phone] Step 6: Making the environment safe - What do I need to get rid of, who can stay with me, or where can I stay in order to feel safe: Have medications shipped to brother and ranxtd-av-ewx's house Put meds in locked dispenser/hero device (dispenser will also notify lznqtb-pd-lvx) Stay with sister Step 7: Access to this information - Where will I keep this plan so that I can easily access it when needed: Copy in IOP book Copy in Mobile-XL messages Normal [facility] CNOVon 06-05-2023 CNOV Office Visit (PSAHIM ) BISHNU COLES ([id number]) 1980 M Date Time Provider Department 06/05/23 9:00 AM NICK ROBERTSON During your visit today, we recorded the following information about you: Nick Robertson LISW 06/08/2023 2:40 PM Signed GENERAL PSYCHOLOGY Patient was seen for an initial evaluation. All information is from Patient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 :1980 [...] AM EDT Comments: Keep scheduled appointment Where: [address] [place], [place] [id number]- [place] (1) Medications What How Much When Instructions [...] MIGRAINE Respiratory failure Tachycardia Tachycardia Education Materials [place], [place] [facility] DISCHARGE INSTRUCTIONS: KNEE ARTHROSCOPY [...] to suc (more content not included)... Normal [facility] Comment on above: Result Comment: Elec tronically Signed By: Ashu PETERSON, Nichole Díaz\.krista\Date and Time Signed: 09/29/22 11:29 EDT H&P Updateon 09-29-2022 H&P Update [id number]. 00CD:127 Normal [facility] IntraOperative Documentson 0 09-29-2022 IntraOperative Documents [id number]#1.00 CD:127 Normal [facility] Main OR PACU I Recordon 09-15 Main OR PACU I Record PACU Phase I Docum ent Type FT Summary Primary Physician: Scott Nassar DO Finalized Date/Time: 09/29/22 12:23:18 Pt. Name: BISHNU COLES/Sex: 1980 Male Med Rec #: [id number] Physician: Scott Nassar DO Financial #: [id number] Pt. Type: A Room/Bed: [facility] Admit/Disch: 09/29/22 08:12:54 - Institution: Case Times [...] Signed By: Piedad Turner I 09/29/22 12:23 [facility] Main OR PACU II Recordon Main OR PACU II Record PACU Phase II Document Type FT Summary Primary Physician: Scott Nassar DO Finalized Date/Time: 09/29/22 13:21:13 Pt. Name: BISHNU COLES/Sex: 1980 Male Med Rec #: [id number] Physician: Scott Nassar DO Financial #: [id number] Pt. Type: A Room/Bed: [place] [address] Admit/Disch: 09/29/22 08:12:54 - 09/29/22 13:20:37 Institution: [...] Signed By: Nichole Wakefield RN 09/29/22 13:21 Normal [facility] Main OR Preoperative Recordo n 09-29-2022 Main OR Preoperative Record PreOp Document Type FT Summary Primary Physician: Scott Nassar DO Finalized Date/Time: 09/29/22 11:32:35 Pt. Name: BISHNU COLES/Sex: 1980 Male Med Rec #: [id number] Physician: Scott Nassar DO Financial #: [id number] Pt. Type: A Room/Bed: [place] [address] Admit/Disch: 09/29/22 08:12:54 - Institution: Case Times [...] By: Alyssa Chávez RN 09/29/22 11:32 Normal [facility] Monitor Recordon 09-29-2022 Monitor Record [id number]#1. 00CD:127 Normal [facility] Monitor Record [id number]#1. 00CD:127 Normal [facility] Patient Education - Texton 0 09-29-2022 Patient Education - Text [place], [place] [facility] DISCHARGE INSTRUCTIONS: KNEE ARTHROSCOPY [...] appointment. Scott Nassar DO [facility] [address] [place], [place] [address] Reviewed: 08-23 [facility] Outside Recordson 09-24-2022 Outside Records [id number]#1.0 0CD:127 [facility] Consent for Procedure/Surger yon 09-23-2022 Consent for Procedure/Surgery [id number]#1. 00CD:127 [facility] Inpatient Patient Summaryon 09-23-2022 Inpatient Patient Summary [address] [address] [facility] Clinical Discharge Instructions PERSON INFORMATION Name: BISHNU COLES PHYSICIANS Admitting Physician: Scott Nassar DO Attending Physician: Scott Nassar DO PCP: Enrique OWENS, Erlinda Discharge Diagnosis: Acute medial meniscus tear of left knee Comment: PATIENT EDUCATION INFORMATION Instructions: Maday - Knee Arthroscopy (Custom) (CUSTOM) Medication Leaflets: Follow up: With: Address: When: Scott Nassar [address] [place] [address] Business (1) Comments: Keep scheduled appointment Type Location [facility] 09/29/2022 11:15 AM 09/29/2022 12:00 [...] Tablets By Mouth at bedtime. Comment: Normal [facility] Outpatient Surgery Discharge Instructionon 09-23-2022 Outpatient Surgery Discharge Instruction [place] [id number] Patient Discharge Instructions PERSON INFORMATION Name: BISHNU [...] THE NEAREST EMERGENCY ROOM OR CALL 911 SUSANA Roper BRYAN W, have received the attached patient education materials/instructions and have verbalized understanding: May we do a follow up call? Yes No I was present when discharge instructions were given Patient Signature Date Clinican/Nurse Signature ___ Date Follow up: With: Address: When: Scott Nassar [address] [place], [place] [phone] Business (1) Comments: Keep scheduled appointment Type Location [facility] 09/29/2022 11:15 AM 09/29/2022 12:00 PM Confirmed Pharmacy Information: You may receive a survey from [employer] asking you to rate your care experience. Your feedback is important and will help us understand what we do well and how we can improve the quality of care we provide to you, your loved ones and our community. It?s an honor to serve you. Thank you for choosing [facility] HERE ARE THE MEDICATION CHANGES THAT OCCURRED [...] Mouth at bedtime. PATIENT EDUCATION INFORMATION Instructions: [place], [place] [facility] DISCHARGE INSTRUCTIONS: KNEE ARTHROSCOPY [...] at y (more content not included)... Normal [facility] Discharge Instructionson Discharge Instructions [id number]#1. 00CD:127 Normal [facility] ED Clinical Summaryon 2022 ED Clinical Summary [place] [id number] ED Clinical Summary Person Information Name: BISHNU COLES [facility] Age: 41 Years : 1980 Sex: Male Language: Tristanian PCP: Erlinda Nunez MD Marital Status: Single Phone: [phone] Visit Id: Visit Reason: Knee pain-swelling; LT [...] 09/21/2022 23:08:46 09/21/2022 23:08:46 09/21/2022 23:08:46 ADDRESS: [address] [place] [phone] [facility] DOC NOTES: MEDICAL INFORMATION: Prescriptions Given: Medications [...] Follow up: With: Address: When: Scott Nassar [address] [place] [address] Business (1) In 3 days 09/24/2022 With: Address: When: Erlinda Enrique [address] [place] [address] Business (1) In 3 days 09/24/2022 Comments: [...] worsening symptoms. DIAGNOSIS: Left knee pain Normal [facility] ED Note-Physicianon 09-23-19 ED Note-Physician Basic Information [...] and Complexity of Problems Differential Diagnosis: [] [facility] Data External documents reviewed: Not applicable My [...] Nassar In 3 days 09/24/2022 EDT [address] [place] [address]- Business (1) Additional Instructions: Erlinda Nunez In 3 days 09/24/2022 EDT [address] [place] [address]- Business (1) Additional Instructions: Call the office [...] Patient seen and evaluated by the physician server service assistant. Attending physician was present in the emergency department and supervised care. This visit was performed by both the physician and an APC. I performed all aspects of the MDM as documented. This report was transcribed using voice recognition software. Every effort was made to ensure accuracy, however, inadvertently computerized fabricator assembler metal products mistakes may be present. Appropriate healthcare PPE [...] epilepsy Post (more content not included)... Normal [facility] Comment on above: Result Comment: Elec tronically [...] Managing pain, stiffness, and swelling ? Take ifug-waw-qhcogbt and prescription medicines only as told by [...] activities are safe for you. ? Perform qxblt-tb-wecliq exercises only as told by your health [...] keep your urine pale yellow. ? Take vjko-qnr-ijgulsz or prescription med (more content not included)... Normal [facility] ED Patient Summaryon 023 ED Patient Summary [address] [address] Patient Discharge Instructions Person Information Name: BISHNU COLES Age: 41 Years Arrival Date: 09/21/2022 20:52:09 Discharge Diagnosis: Left knee pain Primary Care Physician: Erlinda Nunez MD Provider Information Primary Provider: Virgil Dozier DO Advanced Rehabilitation Counsellor:Yandel Hanna PA-C The exam and treatment you received in the Emergency Department were for an urgent problem and are not intended as complete care. It is important that you follow up with a doctor, nurse practitioner, or physician?s server service assistant for ongoing care. If your symptoms [...] Follow-up Instructions: With: Address: When: Scott Nassar [address] [place] [address] Business (1) In 3 days 09/24/2022 With: Address: When: Erlinda Nunez [address] [facility], [place] [address] Business (1) In 3 days 09/24/2022 [...] opioids can be used to help relieve wiuooxgb-md-sprysn pain and are often prescribed following a [...] secure place (more content not included)... Normal [facility] Consent for Treatmenton Consent for Treatment [id number] [id number]#1.0 0CD:127 Normal [facility] BUNon 09-19-2022 Urea nitrogen [Mass/Vol] 15 mg/dL Normal 5-21 [facility] Comment on above: Performed By: #### 2 343672, 0389578, 1703918, 6317344, 84485931 ####[facility] [address] [place] [address] CBC w/Indiceson 09-19-2022 Erythrocyte distribution width (RBC) [Ratio] 13.4 % Normal 10.9-14.2 [facility] Comment on above: Performed By: #### 2 865776, 1424535, 5926721, 8369903, 48282098 ####[facility] [address] [place] [address] Hematocrit (Bld) [Volume fraction] 48.6 % Normal 37.7-49.0 [facility] Comment on above: Performed By: #### 2 719152, 5222413, 5121912, 1764602, 68112235 ####[facility] [address] [place] [address] Hemoglobin (Bld) [Mass/Vol] 15.8 g/dL Normal 13.5-17.5 [facility] Comment on above: Performed By: #### 2 693869, 8315946, 1948960, 1474677, 25858529 ####[facility] [address] [place] [address] MCH (RBC) [Entitic mass] 28.0 pg Normal 27.0-34.0 [facility] Comment on above: Performed By: #### 2 171795, 0272258, 6283205, 1720034, 36218769 ####[address] [address] MCHC (RBC) [Mass/Vol] 32.5 g/dL Normal 31.4-36.0 [facility] Comment on above: Performed By: #### 2 981107, 0806889, 2270112, 9893799, 59899949 ####[address] [address] MCV (RBC) [Entitic vol] 86.1 fL Normal 80.0-100.0 [facility] Comment on above: Performed By: #### 2 884244, 8861072, 0884942, 9771470, 11962138 ####[address] [address] Platelet mean volume (Bld) [Entitic vol] 7.4 fL Normal 6.4-10.8 [facility] Comment on above: Performed By: #### 2 290194, 0165141, 6016197, 1313729, 41200093 ####[address] [address] Platelets (Bld) [#/Vol] 296.0 E9/L Normal 150.0-500.0 [facility] Comment on above: Performed By: #### 2 232760, 9400812, 0031053, 4710775, 23764160 ####[address] [address] RBC (Bld) [#/Vol] 5.6 E12/L Normal 4.3-5.9 [facility] Comment on above: Performed By: #### 2 638742, 5519309, 3422568, 7800753, 28345901 ####[facility] [address] [place] [address] WBC corrected for nucl RBC Auto (Bld) [#/Vol] 7.0 E9/L Normal 4.0-11.0 [facility] Comment on above: Performed By: #### 2 354783, 8908492, 2862916, 8985985, 16367230 ####[facility] [address] [place] [address] CHEMISTRYOrdered By: SYSTEM SYSTEM on 09-19-2022 Anion gap [Moles/Vol] 11 mmol/L Normal 6 - 16 mEq/L [facility] Remisol Chloride [Moles/Vol] 103 mmol/L Normal 101 - 1 11 mmol/L [facility] Remisol CO2 [Moles/Vol] 27 mmol/L Normal 21 - 31 mmol/L [facility] Remisol Creatinine [Mass/Vol] 0.8 mg/dL Normal 0.5 - 1.3 mg/dL [facility] Remisol GFR/1.73 sq M.predicted among non-blacks MDRD (S/P/Bld) [Vol rate/Area] 115 mL/min/1.73 m2 Normal >=59mL/min/1 .73 m2 [facility] Chem S Potassium [Moles/Vol] 4.3 mmol/L Normal 3.5 - 5.3 mmol/L [facility] Remisol Sodium [Moles/Vol] 137 mmol/L Normal 135 - 145 mmol/L [facility] Remisol Urea nitrogen [Mass/Vol] 15 mg/dL Normal 5 - 21 mg/dL [facility] Remisol Consent for Treatmenton Consent for Treatment [id number]#1.0 0CD:127 Normal [facility] Creatinineon 09-19-2022 Creatinine [Mass/Vol] 0.8 mg/dL Normal 0.5-1.3 [facility] Comment on above: Performed By: #### 2 036468, 5396402, 2200344, 4492573, 05941871 ####[facility] [address] [place] [address] HEMATOLOGYOrdered By: Daysi Gaxiola on 09-19-2022 Erythrocyte distribution width (RBC) [Ratio] 13.4 % Normal 10.9 - 14.2 % [facility] HemeAutoSS Hematocrit (Bld) [Volume fraction] 48.6 % Normal 37.7 - 49.0 % FT HemeAutoSS Hemoglobin (Bld) [Mass/Vol] 15.8 g/dL Normal 13.5 - 17.5 gm/dL FT HemeAutoSS MCH (RBC) [Entitic mass] 28.0 pg Normal 27.0 - 34.0 pg FT HemeAutoSS MCHC (RBC) [Mass/Vol] 32.5 g/dL Normal [...] 7.0 E9/L Normal 4.0 - 11.0 E9/L FT HemeAutoSS Lyteson 09-19-2022 Anion gap [Moles/Vol] 11 mmol/L Normal 6-16 [facility] Comment on above: Performed By: #### 2 278754, 5556368, 8326539, 8490119, 04303024 ####[facility] [address] [place] [address] Chloride [Moles/Vol] 103 mmol/L Normal 101-111 [facility] Comment on above: Performed By: #### 2 066214, 6381767, 6996137, 5223698, 04317300 ####[facility] [address] [place] [address] CO2 [Moles/Vol] 27 mmol/L Normal 21-31 [facility] Comment on above: Performed By: #### 2 481919, 0351315, 7181377, 8132132, 16007550 ####[facility] [address] [place] [address] Potassium [Moles/Vol] 4.3 mmol/L Normal 3.5-5.3 [facility] Comment on above: Performed By: #### 2 951435, 1916936, 8669479, 3260661, 24978140 ####[place] [address] [place] [address] Sodium [Moles/Vol] 137 mmol/L Normal 135-145 [facility] Comment on above: Performed By: #### 2 595309, 4983826, 1111396, 0662081, 00171682 ####[place] [address] [place] [address] eGFRon 09-19-2022 GFR/1.73 sq M.predicted among non-blacks MDRD (S/P/Bld) [Vol rate/Area] 115 mL/min/1.73 m2 Normal >=59 [facility] Comment on above: Order Comment: Order added by Discern Expert. Result Comment: Surveying Teacher [place] kidney disease could be indicated at eGFR's of less than 60 mL/min/1.73m2. Kidney failure is indicated at less than 15 mL/min/1.73m2. Performed By: #### 2 358420, 5806009, 8398829, 9802984, 04490114 ####[facility] [address] [place] [address] CNPRosemary 09-17-2022 ENZON Telephone (NE50MN) BISHNU COLES ([id number]) 1980 M Date Time Provider Department 09/17/22 LINO MENDIOLA NE50MN During your visit today, we recorded the following information about you: Stephany Cifuentes PSS 09/17/2022 9:36 AM Signed Letter Request: Reason letter is requested. Letter if its ok for patient to have knee scope surgery? Person calling: Karla- [facility] ext [phone] To be addressed to: [...] drafted. Forwarded for review and signature via [employer]. Copy to fax number below. NICHOLAS Thurman RN 09/17/2022 12:41 PM Signed Letter signed. NICHOLAS Thurman 09/23/2022 12:00 PM Signed Per Chiquita, please refax clearance letter to Dr. Nassar at [phone]. Reynaldo Braswell RN 09/23/2022 1:45 PM Signed [...] clearance Prescriptions as of 09/23/2022 - rizatriptan (MAXALT-MEDICAL NUMERICAL CONTROL OPERATOR) 10 mg disintegrating tablet Take 1 tablet [...] and PS 4-8cmh2O. His DME company is [employer] , new mask to fit patient preference, [...] (FLONASE) 50 mcg/actuation nasal spray Use 1 [place] in each nostril twice daily. - albuterol [...] Text Encoun (more content not included)... Normal [facility] CNOVon 09-02-2022 CNOV Office Visit (MONIE ) BISHNU COLES ([id number]) 1980 M Date Time Provider Department 09/02/22 1:00 PM NADIRA PURDY During your visit today, we recorded the following information about you: Nadira Purdy APRN.ENZO 09/02/2022 12:56 PM Signed Patient returns after completion of his MRI testing. VNS settings reset to pre-MRI values with Output current at 1.625 and Magnet current at 1.875. Tolerated procedure well. Nadira Purdy APRN.ENZO Referring Provider: PAOLA MICHEL [[id number]] Allergies As of Date: 09/02/2022 Noted Allergy [...] [Z96.89] Prescriptions as of 09/02/2022 - rizatriptan (MAXALT-MEDICAL NUMERICAL CONTROL OPERATOR) 10 mg disintegrating tablet Take 1 tablet [...] and PS 4-8cmh2O. His DME company is [employer] , new mask to fit patient preference, [...] (FLONASE) 50 mcg/actuation nasal spray Use 1 [place] in each nostril twice daily. - albuterol [...] Encounter Status:Closed by NADIRA PURDY on 09/02/22 [facility] CNOV Office Visit (KATHYSES ) BISHNU COLES ([id number]) 1980 M Date Time Provider Department 09/02/22 11:00 AM NADIRA PURDY During your visit today, we recorded the following information about you: Nadira Purdy APRN.[facility] 09/02/2022 11:02 AM Signed CC: VNS interrogation prior to MRI HPI: This is a 41 year old male who presents tot the outpatient clinic alone. He is scheduled for an MRI of the brain today. Here for VNS shut off Current Outpatient Medications Medication Sig rizatriptan (MAXALT-MEDICAL NUMERICAL CONTROL OPERATOR) 10 mg disintegrating tablet Take 1 tablet [...] and PS 4-8cmh2O. His DME company is [employer] mask to fit patient preference, ramp, humidification [...] (FLONASE) 50 mcg/actuation nasal spray Use 1 [place] in each nostril twice daily. albuterol HFA (PROVENTIL HFA, VENTOLIN HFA) 90 mcg/actuation inhaler Inhale 1-2 Puffs as instructed as needed for Wheezing/Shortness of Breath. No current facility-administered medications for this visit. ALLERGIES Allergen Reactions Keppra [Levetiracet* Other: See Comments Increases his ADHD Ketorolac Trometham* Unknown unknown Pristiq [Desvenlafa* Other: See Comments sz [facility] VNS Seq. No.: Rachelebud SR M106 VNS Serial No.: [id number] Date of Implantation: 2020 Stimulation Parameters: Current [...] after MRI completed. Referring Provider: PAOLA MICHEL [[id number]] Allergies As of Date: 09/02/2022 Noted Allergy [...] [Z96.89] Prescriptions as of 09/02/2022 - rizatriptan (MAXALT-MEDICAL NUMERICAL CONTROL OPERATOR) 10 mg disintegrating tablet Take 1 tablet [...] by m (more content not included)... Normal [facility] MRI KNEE WO IVCON LTon 09-02 MRI KNEE WO IVCON LT * * *Final Report* * * DATE OF EXAM: Sep 02 2022 12:19PM QBM 0212 - MRI KNEE WO IVCCADEN LT / PROCEDURE REASON: * * * * Physician Interpretation * [...] DEGENERATIVE CHONDRAL CHANGES IN THE PATELLOFEMORAL COMPARTMENT. Cloth Folder Hand: APARNA Transcribe Date/Time: Sep 02 2022 12:58P Dictated by : THIAGO LINK MD This examination was interpreted and the report reviewed and electronically signed by: THIAGO LINK MD on Sep 02 2022 1:01PM EST [id number] Normal [facility] CNPRosemary 07-31-2022 CNPN Telephone (NE50MN) BISHNU COLES ([id number]) 1980 M Date Time Provider Department 07/31/22 LINO MENDIOLA NE50MN During your visit today, we recorded the following information about you: Francheska Nix Sec 07/31/2022 2:55 PM Signed General call : Full name of person calling: Bishnu Coles Relationship to patient: self Phone # : [phone] (home) Reason for call: Patient's orthopaedic specialist, Dr. López, in [place] recommends an MRI of knee. This will require VNS to be turned off. Please advise how to accomplish this at [facility]. Patient of Dr. Maury Velasquez RN [...] and PS 4-8cmh2O. His DME company is [employer] mask to fit patient preference, ramp, humidification [...] (FLONASE) 50 mcg/actuation nasal spray Use 1 [place] in each nostril twice daily. - albuterol [...] Status:Closed by ROULA VELASQUEZ on 07/31/22 Normal [facility] CBC AUTO DIFFon 07-28-2022 BASO # 0.1 103/ul Normal 0.0-0.1 [facility] Comment on above: Performed By: #### C CLEMENCIA, BMP #### [facility] [address] [address] [address] Meron Gentile Basophils/100 WBC (Bld) 0.5 % Normal 0.2-2.0 [facility] Comment on above: Performed By: #### C CLEMENCIA, BMP #### [facility] [address] [address] [address] Meron Gentile EO # 0.2 103/ul Normal 0.0-0.7 [facility] Comment on above: Performed By: #### Joselin KHANNA, BMP #### [facility] [address] [address] [address] Meron Gentile Eosinophils/100 WBC (Bld) 2.0 % Normal 0.9-7.0 [facility] Comment on above: Performed By: #### C CLEMENCIA, BMP #### [facility] [address] [address] [address] Meron Gentile Erythrocyte distribution width (RBC) [Ratio] 12.5 % Normal 11.0-15.0 [facility] Comment on above: Performed By: #### C CLEMENCIA, BMP #### [facility] [address] [address] [address] Meron Gentile Hematocrit (Bld) [Volume fraction] 48.6 % Normal 42.0-54.0 [facility] Comment on above: Performed By: #### C CLEMENCIA, BMP #### [facility] [address] [address] [address] Meron Gentile Hemoglobin (Bld) [Mass/Vol] 16.7 g/dL Normal 14.0-18.0 [facility] Comment on above: Performed By: #### C MADM, BMP #### [facility] [address] [place] [address] Dr. Meron Gentile IG # 0.03 10e3/ul Normal 0.00-0.03 [facility] Comment on above: Performed By: #### C MADM, BMP #### [facility] [address] [place] [address] Dr. Meron Gentile IG % 0.3 % Normal 0.0-0.5 [facility] Comment on above: Performed By: #### C MADM, BMP #### [facility] [address] [place] [address] Dr. Meron Gentile LYMPH # 2.0 103/ul Normal 1.2-3.8 [facility] Comment on above: Performed By: #### C MADM, BMP #### [facility] [address] [place] [address] Dr. Meron Gentile Lymphocytes/100 WBC (Bld) 20.4 % Critically low 20.5-60.0 [facility] Comment on above: Performed By: #### C MADM, BMP #### [facility] [address] [place] [address] Dr. Meron Gentile MANUAL DIFF REQ NO Normal [facility] Comment on above: Performed By: #### C MADM, BMP #### [facility] [address] [place] [address] Dr. Meron Gentile MCH (RBC) [Entitic mass] 28.8 pg Normal 25.9-34.0 [facility] Comment on above: Performed By: #### C MADM, BMP #### [facility] [address] [place] [address] Dr. Meron Gentile MCHC (RBC) [Mass/Vol] 34.4 g/dL Normal 29.9-35.2 [facility] Comment on above: Performed By: #### C MADM, BMP #### [facility] [address] [address] [address] Meron Gentile MCV (RBC) [Entitic vol] 83.9 fL Normal 80.0-94.0 [facility] Comment on above: Performed By: #### C MADM, BMP #### [facility] [address] [address] [address] Meron Gentile MONO # 0.7 103/ul Normal 0.3-0.8 [facility] Comment on above: Performed By: #### C MADM, BMP #### [facility] [address] [place] [address] Dr. Meron Gentile Monocytes/100 WBC (Bld) 7.2 % Normal 1.7-12.0 [facility] Comment on above: Performed By: #### C MADM, BMP #### [facility] [address] [place] [address] Dr. Meron Gentile NEUT # 6.7 103/ul Critically high 1.4-6.5 [facility] Comment on above: Performed By: #### C MADM, BMP #### [facility] [address] [place] [address] Dr. Meron Gentile Neutrophils/100 WBC (Bld) 69.6 % Normal 43.0-75.0 [facility] Comment on above: Performed By: #### C DONNIEM, BMP #### [facility] [address] [place] [address] Dr. Meron Gentile Platelet mean volume (Bld) [Entitic vol] 8.7 fL Critically low 9.5-13.5 [facility] Comment on above: Performed By: #### C MADM, BMP #### [facility] [address] [place] [address] Dr. Meron Gentile PLT 326 103/ul Normal 150-450 [facility] Comment on above: Performed By: #### C MADM, BMP #### [facility] [address] [place] [address] Dr. Meron Gentile RBC 5.79 106/ul Normal 4.70-6.10 [facility] Comment on above: Performed By: #### C MADM, BMP #### [facility] [address] [address] [address] Meron Gentile WBC 9.6 103/ul Normal 4.0-11.0 [facility] Comment on above: Performed By: #### C MADM, BMP #### [facility] [address] [address] [address] Meron Gentile CRPon 07-28-2022 CRP [Mass/Vol] mg/L Normal <=1.0 [facility] Comment on above: Performed By: #### B MP, CRP #### [facility] [address] [address] [address] ABD/PELV W CONon [...] by: OTF PARKS Date: 2022-07-28 21:[address] [facility] [address] HEAD WO CONon 07-28-2022 CT [...] in the cervical spine. Electronically authenticated by: OTFRUTHANN PARKS Date: 2022-07-28 21:24 Normal [facility] ER URINE PROFILEon 3 Bilirubin Ql (U) Negative Normal NEGATIVE [facility] Comment on above: Performed By: #### E RUR #### [facility] [address] [place] [address] Dr. Meron Gentile Clarity (U) CLEAR Normal CLEAR [facility] Comment on above: Performed By: #### E RUR #### [facility] [address] [place] [address] Dr. Meron Gentile Color (U) LT. YELLOW Normal YELLOW [facility] Comment on above: Performed By: #### E RUR #### [facility] [address] [place] [address] Dr. Meron Gentile ERUENEDELIA A micrscopic examination will be performed if indicated. Normal [facility] Comment on above: Performed By: #### E RUR #### [facility] [address] [place] [address] Dr. Meron Gentile Glucose Ql (U) Negative Normal NEGATIVE [facility] Comment on above: Performed By: #### E RUR #### [facility] [address] [place] [address] Dr. Meron Gentile Hemoglobin Ql (U) Negative Normal NEGATIVE [facility] Comment on above: Performed By: #### E RUR #### [facility] [address] [place] [address] Dr. Meron Gentile Ketones Ql (U) Negative Normal NEGATIVE [facility] Comment on above: Performed By: #### E RUR #### [facility] [address] [place] [address] Dr. Meron Gentile LEUKOCYTES Negative Normal NEGATIVE [facility] Comment on above: Performed By: #### E RUR #### [facility] [address] [place] [address] Dr. Meron Gentile Nitrite Ql (U) Negative Normal NEGATIVE [facility] Comment on above: Performed By: #### E RUR #### [facility] [address] [place] [address] Dr. Meron Gentile pH (U) 7.0 [pH] Normal 5-9 [facility] Comment on above: Performed By: #### E RUR #### [facility] [address] [place] [address] Dr. Meron Gentile SPEC GRAVITY <=1.005 Abnormal 1.005-<=1.02 5 [facility] Comment on above: Performed By: #### E RUR #### [facility] [address] [place] [address] Dr. Meron Gentile UA PROTEIN Negative Normal NEGATIVE/ TRACE [facility] Comment on above: Performed By: #### E RUR #### [facility] [address] [place] [address] Dr. Meron Gentile UR MICRO IND NOT INDICATED Normal [facility] Comment on above: Performed By: #### E RUR #### [facility] [address] [place] [address] Dr. Meron Gentile Urobilinogen Qn (U) 0.2 {Roel'U}/dL Normal 0.2 - 1. 0 [facility] Comment on above: Performed By: #### E RUR #### [facility] [address] [place] [address] Dr. Meron Gentile PROF CHEM 8 (BAS METB)on Anion gap [Moles/Vol] 11.3 mmol/L Normal [facility] Comment on above: Performed By: #### B MP, CRP #### [facility] [address] [place] [address] Dr. Meron Gentile Calcium [Mass/Vol] 8.9 mg/dL Normal 8.5-10.1 [facility] Comment on above: Performed By: #### B MP, CRP #### [facility] [address] [address] [address] Meron Gentile Chloride [Moles/Vol] 102 mmol/L Normal 98-107 [facility] Comment on above: Performed By: #### B MP, CRP #### [facility] [address] [address] [address] Meron Gentile CO2 [Moles/Vol] 27.5 mmol/L Normal 21.0-32.0 [facility] Comment on above: Performed By: #### B MP, CRP #### [facility] [address] [address] [address] Meron Gentile Creatinine [Mass/Vol] 0.67 mg/dL Critically low 0.70-1.30 [facility] Comment on above: Performed By: #### B MP, CRP #### [facility] [address] [place] [address] Dr. Meron Gentile EGFR-AF IRANIAN >60 Normal >=60 [facility] Comment on above: Performed By: #### B MP, CRP #### [facility] [address] [address] [address] Meron Gentile EGFR-NON AF IRANIAN >60 Normal >=60 [facility] Comment on above: Performed By: #### B MP, CRP #### [facility] [address] [address] [address] Meron Gentile Glucose [Mass/Vol] 117 mg/dL Critically high 74-106 T [facility] Comment on above: Performed By: #### B MP, CRP #### [facility] [address] [address] [address] Meron Gentile Potassium [Moles/Vol] 3.8 mmol/L Normal 3.5-5.1 [facility] Comment on above: Performed By: #### B MP, CRP #### [facility] [address] [address] [address] Meron Gentile Sodium [Moles/Vol] 137 mmol/L Normal 136-145 [facility] Comment on above: Performed By: #### B MP, CRP #### [facility] [address] [place], [place] [address] Dr. Meron Gentile Urea nitrogen [Mass/Vol] 12.0 mg/dL Normal 7.0-18.0 [facility] Comment on above: Performed By: #### B MP, CRP #### [facility] [address] [place], [place] [address] Dr. Meron Gentile Urea nitrogen/Creatinine [Mass ratio] 17.9 mg/mg Normal [facility] Comment on above: Performed By: #### B MP, CRP #### [facility] [address] [place], [place] [address] Dr. Meron Gentile XR KNEE LT 4V [...] by: JAY KATZ Date: 2022-07-28 21:39 Normal [facility] 07-18-2022 [facility] Telephone (PSYRMN) BISHNU COLES ([id number]) 1980 M Date Time Provider Department 07/18/22 MELLY NEWTON PSYRMN During your visit today, we recorded the following information about you: Jazmin Medeiros 07/18/2022 4:11 PM Signed Pharmacy left a voicemail stating they need Dr. Newton to call back and verify Seroquel Dosage. Jazmin Rangel [employer] Melly Newton MD 07/21/2022 6:32 PM Signed Called pharmacy and left a with callback number. Melly Newton MD Allergies [...] and PS 4-8cmh2O. His DME company is [employer] , new mask to fit patient preference, [...] (FLONASE) 50 mcg/actuation nasal spray Use 1 [place] in each nostril twice daily. - albuterol [...] Encounter Status:Closed by ANGELITO RIDDLE on 07/29/22 [facility] 07-09-2022 [facility] Telephone ([id number]) BISHNU COLES ([id number]) 1980 M Date Time Provider Department 07/09/22 LINO MENDIOLA NE50MN During your visit today, we recorded the following information about you: Stephany Cifuentes PSS 07/09/2022 10:46 AM Signed General call : Full name of person calling: Bishnu Coles Relationship to patient: self Phone # : [phone] Reason for call: having real bad headaches, and having speech problems Patient of Dr. maury Velasquez RN 07/09/2022 1:57 PM Signed VNS FU [...] to return jackie to the office. 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 His DME company is [employer] , new mask to fit patient preference, ramp, humidification and unlimited supplies Ple (more content not included)... Normal [facility] CBC AUTO DIFFon 01-13-2022 BASO # 0.1 103/ul Normal 0.0-0.1 [facility] Comment on above: Performed By: #### C BC #### [facility] [address] [place] [address] Dr. Meron Gentile Basophils/100 WBC (Bld) 0.3 % Normal 0.2-2.0 [facility] Comment on above: Performed By: #### C BC #### [facility] [address] [place] [address] Dr. Meron Gentile EO # 0.0 103/ul Normal 0.0-0.7 [facility] Comment on above: Performed By: #### C BC #### [facility] [address] [place] [address] Dr. Meron Gentile Eosinophils/100 WBC (Bld) 0.1 % Critically low 0.9-7.0 [facility] Comment on above: Performed By: #### C BC #### [facility] [address] [place] [address] Dr. Meron Gentile Erythrocyte distribution width (RBC) [Ratio] 12.4 % Normal 11.0-15.0 [facility] Comment on above: Performed By: #### C BC #### [facility] [address] [place] [address] Dr. Meron Gentile Hematocrit (Bld) [Volume fraction] 44.3 % Normal 42.0-54.0 [facility] Comment on above: Performed By: #### C BC #### [facility] [address] [place] [address] Dr. Meron Gentile Hemoglobin (Bld) [Mass/Vol] 15.0 g/dL Normal 14.0-18.0 [facility] Comment on above: Performed By: #### C BC #### [facility] [address] [place] [address] Dr. Meron Gentile IG # 0.28 10e3/ul Critically high 0.00-0.03 [facility] Comment on above: Performed By: #### C BC #### [facility] [address] [place] [address] Dr. Meron Gentile IG % 1.7 % Critically high 0.0-0.5 [facility] Comment on above: Performed By: #### C BC #### [facility] [address] [place] [address] Dr. Meron Gentile LYMPH # 3.4 103/ul Normal 1.2-3.8 [facility] Comment on above: Performed By: #### C BC #### [facility] [address] [place] [address] Dr. Meron Gentile Lymphocytes/100 WBC (Bld) 20.2 % Critically low 20.5-60.0 [facility] Comment on above: Performed By: #### C BC #### [facility] [address] [place] [address] Dr. Meron Gentile MANUAL DIFF REQ NO Normal [facility] Comment on above: Performed By: #### C BC #### [facility] [address] [place] [address] Dr. Meron Gentile MCH (RBC) [Entitic mass] 29.2 pg Normal 25.9-34.0 [facility] Comment on above: Performed By: #### C BC #### [facility] [address] [place] [address] Dr. Meron Gentile MCHC (RBC) [Mass/Vol] 33.9 g/dL Normal 29.9-35.2 [facility] Comment on above: Performed By: #### C BC #### [facility] [address] [place] [address] Dr. Meron Gentile MCV (RBC) [Entitic vol] 86.4 fL Normal 80.0-94.0 [facility] Comment on above: Performed By: #### C BC #### [facility] [address] [place] [address] Dr. Meron Gentile MONO # 1.3 103/ul Critically high 0.3-0.8 [facility] Comment on above: Performed By: #### C BC #### [facility] [address] [place] [address] Dr. Meron Gentile Monocytes/100 WBC (Bld) 7.5 % Normal 1.7-12.0 [facility] Comment on above: Performed By: #### C BC #### [facility] [address] [place] [address] Dr. Meron Gentile NEUT # 11.7 103/ul Critically high 1.4-6.5 [facility] Comment on above: Performed By: #### C BC #### [facility] [address] [place] [address] Dr. Meron Gentile Neutrophils/100 WBC (Bld) 70.2 % Normal 43.0-75.0 [facility] Comment on above: Performed By: #### C BC #### [facility] [address] [place] [address] Dr. Meron Gentile Platelet mean volume (Bld) [Entitic vol] 8.6 fL Critically low 9.5-13.5 [facility] Comment on above: Performed By: #### C BC #### [facility] [address] [place] [address] Dr. Meron Gentile PLT 369 103/ul Normal 150-450 [facility] Comment on above: Performed By: #### C BC #### [facility] [address] [place] [address] Dr. Meron Gentile RBC 5.13 106/ul Normal 4.70-6.10 [facility] Comment on above: Performed By: #### C BC #### [facility] [address] [place] [address] Dr. Meron Gentile WBC 16.7 103/ul Critically high 4.0-11.0 [facility] Comment on above: Performed By: #### C BC #### [facility] [address] [place] [address] Dr. Meron Gentile PROF 14(COMP METB)on 022 Albumin [Mass/Vol] 3.6 g/dL Normal 3.4-5.0 [facility] Comment on above: Performed By: #### B MP, CRP #### [facility] [address] [place] [address] Dr. Meron Gentile Albumin/Globulin [Mass ratio] 1.1 {ratio} Normal [facility] Comment on above: Performed By: #### B MP, CRP #### [facility] [address] [place] [address] Dr. Meron Gentile ALP [Catalytic activity/Vol] 59 U/L Normal 46-116 [facility] Comment on above: Performed By: #### B MP, CRP #### [facility] [address] [place] [address] Dr. Meron Gentile ALT [Catalytic activity/Vol] 36 U/L Normal 16-63 [facility] Comment on above: Performed By: #### B MP, CRP #### [facility] [address] [place] [address] Dr. eMron Gentile Anion gap [Moles/Vol] 10.2 mmol/L Normal [facility] Comment on above: Performed By: #### B MP, CRP #### [facility] [address] [place] [address] Dr. Meron Gentile AST [Catalytic activity/Vol] 11 U/L Critically low 15-37 [facility] Comment on above: Performed By: #### B MP, CRP #### [facility] [address] [place] [address] Dr. Meron Gentile Bilirubin [Mass/Vol] 0.4 mg/dL Normal 0.2-1.0 [facility] Comment on above: Performed By: #### B MP, CRP #### [facility] [address] [place] [address] Dr. Meron Gentile Calcium [Mass/Vol] 8.6 mg/dL Normal 8.5-10.1 [facility] Comment on above: Performed By: #### B MP, CRP #### [facility] [address] [address] [address] Meron Gentile Chloride [Moles/Vol] 99 mmol/L Normal 98-107 [facility] Comment on above: Performed By: #### B MP, CRP #### [facility] [address] [place] [address] Dr. Meron Gentile CO2 [Moles/Vol] 28.2 mmol/L Normal 21.0-32.0 [facility] Comment on above: Performed By: #### B MP, CRP #### [facility] [address] [place] [address] Dr. Meron Gentile Creatinine [Mass/Vol] 0.77 mg/dL Normal 0.70-1.30 [facility] Comment on above: Performed By: #### B MP, CRP #### [facility] [address] [place] [address] Dr. Meron Gentile EGFR-AF IRANIAN >60 Normal >=60 [facility] Comment on above: Performed By: #### B MP, CRP #### [facility] [address] [place] [address] Dr. Meron Gentile EGFR-NON AF IRANIAN >60 Normal >=60 [facility] Comment on above: Performed By: #### B MP, CRP #### [facility] [address] [place] [address] Dr. Meron Gentile Globulin (S) [Mass/Vol] 3.2 g/dL Normal [facility] Comment on above: Performed By: #### B MP, CRP #### [facility] [address] [place] [address] Dr. Meron Gentile Glucose [Mass/Vol] 107 mg/dL Critically high 74-106 T [facility] Comment on above: Performed By: #### B MP, CRP #### [facility] [address] [place] [address] Dr. Meron Gentile Potassium [Moles/Vol] 3.4 mmol/L Critically low 3.5-5.1 [facility] Comment on above: Performed By: #### B MP, CRP #### [facility] [address] [place] [address] Dr. Meron Gentile Protein [Mass/Vol] 6.8 g/dL Normal 6.4-8.2 [facility] Comment on above: Performed By: #### B MP, CRP #### [facility] [address] [place] [address] Dr. Meron Gentile Sodium [Moles/Vol] 134 mmol/L Critically low 136-145 [facility] Comment on above: Performed By: #### B MP, CRP #### [facility] [address] [place] [address] Dr. Meron Gentile Urea nitrogen [Mass/Vol] 10.0 mg/dL Normal 7.0-18.0 [facility] Comment on above: Performed By: #### B MP, CRP #### [facility] [address] [place] [address] Dr. Meron Gentile Urea nitrogen/Creatinine [Mass ratio] 13.0 mg/mg Normal [facility] Comment on above: Performed By: #### B MP, CRP #### [facility] [address] [place] [address] Dr. Meron Gentile TROPONIN, HIGH SENSITIVITYon 01-13-2022 HSTROP 5.3 pg/mL Normal 4.0-76.1 [facility] Comment on above: Result Comment: CUT- OFF POINTS HAVE BEEN ESTABLISHED BASED ON THE FOURTH UNIVERSAL DEFINITIONS OF MYOCARDIAL INFARCTION. THE UPPER REFERENCE LIMIT (URL) OF TROPONIN, DEFINED THE 99TH PERCENTILE OF cTnI DISTRIBUTION IN A REFERENCE POPULATION, HAS BEEN CONFIRMED THE DECISION THRESHOLD FOR [place] DIAGNOSIS. Performed By: #### B MP, CRP #### [facility] [address] [address] [address] Meron Gentile XR CHEST 1 Von [...] by: YAMILETH LEE Date: 2022-01-12 22:48 Normal [facility] No Panel Informationon 01-07 [facility] CARDIAC TYLER 3-6on 2 CK [Catalytic activity/Vol] 98 U/L Normal 39-308 [facility] Comment on above: Performed By: #### C MREP #### [facility] [address] [place] [address] Dr. Meron Gentile CK.MB [Mass/Vol] 1.08 ng/mL Normal <=3.60 [facility] Comment on above: Performed By: #### C MREP #### [facility] [address] [address] [address] Meron Gentile HSTROP 6.2 pg/mL Normal 4.0-76.1 [facility] Comment on above: Result Comment: CUT- OFF POINTS HAVE BEEN ESTABLISHED BASED ON THE FOURTH UNIVERSAL DEFINITIONS OF MYOCARDIAL INFARCTION. THE UPPER REFERENCE LIMIT (URL) OF TROPONIN, DEFINED THE 99TH PERCENTILE OF cTnI DISTRIBUTION IN A REFERENCE POPULATION, HAS BEEN CONFIRMED THE DECISION THRESHOLD FOR [place] DIAGNOSIS. Performed By: #### C MREP #### [facility] [address] [address] [address] Meron Gentile XR CHEST 1 Von [...] NADIRA MARTINI Date: 2022-01-05 22:18 Normal [facility] CARDIAC TYLER ADMITon 022 CK [Catalytic activity/Vol] 107 U/L Normal 39-308 [facility] Comment on above: Performed By: #### Joselin KHANNA, BMP #### [facility] [address] [place] [address] Dr. Meron Gentile CK.MB [Mass/Vol] 1.26 ng/mL Normal <=3.60 [facility] Comment on above: Performed By: #### Joselin KHANNA, BMP #### [facility] [address] [place] [address] Dr. Meron Gentile HSTROP 6.3 pg/mL Normal 4.0-76.1 [facility] Comment on above: Result Comment: CUT- OFF POINTS HAVE BEEN ESTABLISHED BASED ON THE FOURTH UNIVERSAL DEFINITIONS OF MYOCARDIAL INFARCTION. THE UPPER REFERENCE LIMIT (URL) OF TROPONIN, DEFINED THE 99TH PERCENTILE OF cTnI DISTRIBUTION IN A REFERENCE POPULATION, HAS BEEN CONFIRMED THE DECISION THRESHOLD FOR [place] DIAGNOSIS. Performed By: #### Joselin KHANNA, BMP #### [facility] [address] [address] [address] Meron Gentile PELRA 41 ng/mL Normal 16-96 [facility] Comment on above: Performed By: #### Joselin KHANNA, BMP #### [facility] [address] [place] [address] Dr. Meron Gentile CBC AUTO DIFFon 01-05-2022 BASO # 0.0 103/ul Normal 0.0-0.1 [facility] Comment on above: Performed By: #### B MP, CRP #### [facility] [address] [place] [address] Dr. Meron Gentile Basophils/100 WBC (Bld) 0.5 % Normal 0.2-2.0 [facility] Comment on above: Performed By: #### B MP, CRP #### [facility] [address] [place] [address] Dr. Meron Gentile EO # 0.1 103/ul Normal 0.0-0.7 [facility] Comment on above: Performed By: #### B MP, CRP #### [facility] [address] [place] [address] Dr. Meron Gentile Eosinophils/100 WBC (Bld) 1.2 % Normal 0.9-7.0 [facility] Comment on above: Performed By: #### B MP, CRP #### [facility] [address] [place] [address] Dr. Meron Gentile Erythrocyte distribution width (RBC) [Ratio] 12.2 % Normal 11.0-15.0 [facility] Comment on above: Performed By: #### B MP, CRP #### [facility] [address] [place] [address] Dr. Meron Gentile Hematocrit (Bld) [Volume fraction] 45.6 % Normal 42.0-54.0 [facility] Comment on above: Performed By: #### B MP, CRP #### [facility] [address] [place] [address] Dr. Meron Gentile Hemoglobin (Bld) [Mass/Vol] 15.2 g/dL Normal 14.0-18.0 [facility] Comment on above: Performed By: #### B MP, CRP #### [facility] [address] [place] [address] Dr. Meron Gentile IG # 0.02 10e3/ul Normal 0.00-0.03 [facility] Comment on above: Performed By: #### B MP, CRP #### [facility] [address] [place] [address] Dr. Meron Gentile IG % 0.2 % Normal 0.0-0.5 [facility] Comment on above: Performed By: #### B MP, CRP #### [facility] [address] [address] [address] Meron Gentile LYMPH # 1.6 103/ul Normal 1.2-3.8 [facility] Comment on above: Performed By: #### B MP, CRP #### [facility] [address] [place] [address] Dr. Meron Gentile Lymphocytes/100 WBC (Bld) 18.9 % Critically low 20.5-60.0 [facility] Comment on above: Performed By: #### B MP, CRP #### [facility] [address] [place] [address] Dr. Meron Gentile MANUAL DIFF REQ NO Normal [facility] Comment on above: Performed By: #### B MP, CRP #### [facility] [address] [place] [address] Dr. Meron Gentile MCH (RBC) [Entitic mass] 29.0 pg Normal 25.9-34.0 [facility] Comment on above: Performed By: #### B MP, CRP #### [facility] [address] [place] [address] Dr. Meron Gentile MCHC (RBC) [Mass/Vol] 33.3 g/dL Normal 29.9-35.2 [facility] Comment on above: Performed By: #### B MP, CRP #### [facility] [address] [place] [address] Dr. Meron Gentile MCV (RBC) [Entitic vol] 86.9 fL Normal 80.0-94.0 [facility] Comment on above: Performed By: #### B MP, CRP #### [facility] [address] [place] [address] Dr. Meron Gentile MONO # 1.1 103/ul Critically high 0.3-0.8 [facility] Comment on above: Performed By: #### B MP, CRP #### [facility] [address] [place] [address] Dr. Meron Gentile Monocytes/100 WBC (Bld) 12.3 % Critically high 1.7-12.0 [facility] Comment on above: Performed By: #### B MP, CRP #### [facility] [address] [place] [address] Dr. Meron Gentile NEUT # 5.7 103/ul Normal 1.4-6.5 [facility] Comment on above: Performed By: #### B MP, CRP #### [facility] [address] [place] [address] Dr. Meron Gentile Neutrophils/100 WBC (Bld) 66.9 % Normal 43.0-75.0 [facility] Comment on above: Performed By: #### B MP, CRP #### [facility] [address] [place] [address] Dr. Meron Gentile Platelet mean volume (Bld) [Entitic vol] 8.6 fL Critically low 9.5-13.5 [facility] Comment on above: Performed By: #### B MP, CRP #### [facility] [address] [place] [address] Dr. Meron Gentile PLT 279 103/ul Normal 150-450 [facility] Comment on above: Performed By: #### B MP, CRP #### [facility] [address] [place] [address] Dr. Meron Gentile RBC 5.25 106/ul Normal 4.70-6.10 [facility] Comment on above: Performed By: #### B MP, CRP #### [facility] [address] [place] [address] Dr. Meron Gentile WBC 8.6 103/ul Normal 4.0-11.0 [facility] Comment on above: Performed By: #### B MP, CRP #### [facility] [address] [place] [address] Dr. Meron Gentile Covid-19 PCR ([facility])on 12-17 SARS-CoV-2 (COVID-19) RNA SULEIMAN+probe Ql (Unsp spec) Not detected Normal NOT DETECTED [facility] Comment on above: Result Comment: When [...] for this test is supported by the [place] of [employer] and Human Service's declaration that [...] longer be used). Performed By: #### C CLEMENCIA, BMP #### [facility] [address] [place] [address] Dr. Meron Gentile D-DIMERon 01-05-2022 D-DIMER 0.19 mg/L FEU Normal <=0.59 [facility] Comment on above: Performed By: #### D DIM #### [facility] [address] [place] [address] Dr. Meron Gentile D-DIMER COMMENTS SEE BELOW Normal [facility] Comment on above: Result Comment: Incr eases [...] hospitalization. Performed By: #### D DIM #### [facility] [address] [place] [address] Dr. Meron Gentile INFLUENZA A AND B AGon 01-05 INFLUENZA A AG Negative Normal NEGATIVE SEE COMMENT [facility] Comment on above: Performed By: #### C DONNIEM, BMP #### [facility] [address] [place] [address] Dr. Meron Gentile INFLUENZA B AG Negative Normal NEGATIVE SEE COMMENT [facility] Comment on above: Performed By: #### C DONNIEM, BMP #### [facility] [address] [address] [address] Meron Gentile INTERNAL CONTROLS Within Normal Limits Normal Wi thin Normal Limits [facility] Comment on above: Performed By: #### C MADM, BMP #### [facility] [address] [address] [address] Meron Gentile PROF CHEM 8 (BAS METB)on Anion gap [Moles/Vol] 9.3 mmol/L Normal [facility] Comment on above: Performed By: #### C MADM, BMP #### [facility] [address] [address] [address] Meron Gentile Calcium [Mass/Vol] 9.1 mg/dL Normal 8.5-10.1 [facility] Comment on above: Performed By: #### C MADM, BMP #### [facility] [address] [address] [address] Meron Gentile Chloride [Moles/Vol] 97 mmol/L Critically low 98-107 [facility] Comment on above: Performed By: #### C MADM, BMP #### [facility] [address] [address] [address] Meron Gentile CO2 [Moles/Vol] 30.6 mmol/L Normal 21.0-32.0 [facility] Comment on above: Performed By: #### C MADM, BMP #### [facility] [address] [address] [address] Meron Gentile Creatinine [Mass/Vol] 0.77 mg/dL Normal 0.70-1.30 [facility] Comment on above: Performed By: #### C MADM, BMP #### [facility] [address] [address] [address] Meron Gentile EGFR-AF IRANIAN >60 Normal >=60 [facility] Comment on above: Performed By: #### C MADM, BMP #### [facility] [address] [address] [address] Meron Gentile EGFR-NON AF IRANIAN >60 Normal >=60 [facility] Comment on above: Performed By: #### C MADM, BMP #### [facility] [address] [address] [address] Meron Gentile Glucose [Mass/Vol] 104 mg/dL Normal 74-106 [facility] Comment on above: Performed By: #### C MADM, BMP #### [facility] [address] [place] [address] Dr. Meron Gentile Potassium [Moles/Vol] 3.9 mmol/L Normal 3.5-5.1 [facility] Comment on above: Performed By: #### C MADM, BMP #### [facility] [address] [place] [address] Dr. Meron Gentile Sodium [Moles/Vol] 133 mmol/L Critically low 136-145 [facility] Comment on above: Performed By: #### C MADM, BMP #### [facility] [address] [place] [address] Dr. Meron Gentile Urea nitrogen [Mass/Vol] 8.0 mg/dL Normal 7.0-18.0 [facility] Comment on above: Performed By: #### C MADM, BMP #### [facility] [address] [place] [address] Dr. Meron Gentile Urea nitrogen/Creatinine [Mass ratio] 10.4 mg/mg Normal [facility] Comment on above: Performed By: #### C MADM, BMP #### [facility] [address] [place] [address] Dr. Meron Gentile INSULINon 09-26-2021 Insulin 14.8 uIU/mL Normal 2.6-24.9 [facility] Comment on above: Performed By: #### I NSULIN #### [facility] [address] [place] [address] Dr. Meron Gentile CBC AUTO DIFFon 09-25-2021 BASO # 0.1 103/ul Normal 0.0-0.1 [facility] Comment on above: Performed By: #### C BC #### [facility] [address] [place] [address] Dr. Meron Gentile Basophils/100 WBC (Bld) 0.7 % Normal 0.2-2.0 [facility] Comment on above: Performed By: #### C BC #### [facility] [address] [place] [address] Dr. Meron Gentile EO # 0.3 103/ul Normal 0.0-0.7 [facility] Comment on above: Performed By: #### C BC #### [facility] [address] [place] [address] Dr. Meron Gentile Eosinophils/100 WBC (Bld) 3.8 % Normal 0.9-7.0 [facility] Comment on above: Performed By: #### C BC #### [facility] [address] [place] [address] Dr. Meron Gentile Erythrocyte distribution width (RBC) [Ratio] 12.2 % Normal 11.0-15.0 [facility] Comment on above: Performed By: #### C BC #### [facility] [address] [place] [address] Dr. Meron Gentile Hematocrit (Bld) [Volume fraction] 46.5 % Normal 42.0-54.0 [facility] Comment on above: Performed By: #### C BC #### [facility] [address] [place] [address] Dr. Meron Gentile Hemoglobin (Bld) [Mass/Vol] 15.5 g/dL Normal 14.0-18.0 [facility] Comment on above: Performed By: #### C BC #### [facility] [address] [place] [address] Dr. Meron Gentile IG # 0.04 10e3/ul Critically high 0.00-0.03 [facility] Comment on above: Performed By: #### C BC #### [facility] [address] [place] [address] Dr. Meron Gentile IG % 0.5 % Normal 0.0-0.5 [facility] Comment on above: Performed By: #### C BC #### [facility] [address] [place] [address] Dr. Meron Gentile LYMPH # 2.4 103/ul Normal 1.2-3.8 [facility] Comment on above: Performed By: #### C BC #### [facility] [address] [place] [address] Dr. Meron Gentile Lymphocytes/100 WBC (Bld) 31.5 % Normal 20.5-60.0 [facility] Comment on above: Performed By: #### C BC #### [facility] [address] [place] [address] Dr. Meron Gentile MANUAL DIFF REQ NO Normal [facility] Comment on above: Performed By: #### C BC #### [facility] [address] [place] [address] Dr. Meron Gentile MCH (RBC) [Entitic mass] 29.1 pg Normal 25.9-34.0 [facility] Comment on above: Performed By: #### C BC #### [facility] [address] [place] [address] Dr. Meron Gentile MCHC (RBC) [Mass/Vol] 33.3 g/dL Normal 29.9-35.2 [facility] Comment on above: Performed By: #### C BC #### [facility] [address] [place] [address] Dr. Meron Gentile MCV (RBC) [Entitic vol] 87.2 fL Normal 80.0-94.0 [facility] Comment on above: Performed By: #### C BC #### [facility] [address] [place] [address] Dr. Meron Gentile MONO # 0.6 103/ul Normal 0.3-0.8 [facility] Comment on above: Performed By: #### C BC #### [facility] [address] [place] [address] Dr. Meron Gentile Monocytes/100 WBC (Bld) 7.5 % Normal 1.7-12.0 [facility] Comment on above: Performed By: #### C BC #### [facility] [address] [place] [address] Dr. Meron Gentile NEUT # 4.3 103/ul Normal 1.4-6.5 [facility] Comment on above: Performed By: #### C BC #### [facility] [address] [address] [address] Meron Gentile Neutrophils/100 WBC (Bld) 56.0 % Normal 43.0-75.0 [facility] Comment on above: Performed By: #### C BC #### [facility] [address] [address] [address] Meron Gentile Platelet mean volume (Bld) [Entitic vol] 8.7 fL Critically low 9.5-13.5 [facility] Comment on above: Performed By: #### C BC #### [facility] [address] [address] [address] Meron Gentile PLT 290 103/ul Normal 150-450 [facility] Comment on above: Performed By: #### C BC #### [facility] [address] [place] [address] Dr. Meron Gentile RBC 5.33 106/ul Normal 4.70-6.10 [facility] Comment on above: Performed By: #### C BC #### [facility] [address] [address] [address] Meron Gentile WBC 7.7 103/ul Normal 4.0-11.0 [facility] Comment on above: Performed By: #### C BC #### [facility] [address] [place] [address] Dr. Meron Gentile ECHOCARDIO M/2D COMPLETEon 0 09-25-2021 ECHOCARDIO M/2D COMPLETE Patient: BISHNU COLES Exam Date: 09/25/2021 : 1980 Gender:M Ordering : DR ERLINDA NUNEZ . Admission #: [id number] Family : Order #: [id number] CLICK HERE TO VIEW EXAM ECHOCARDIOGRAM REPORT [...] Area(A4C): 23.10 cm2 Left Atrium Systolic Volume(A2C): 25483 mm3 Left Atrium Systolic Volume(A4C): 94697 mm3 Mitral Valve MV E to A [...] Perez M.D. on 09/25/2021 at 16:59 Normal [facility] FREE THYROXINE INDEX T7on FTI 2.58 Normal 1.30-4.50 [facility] Comment on above: Performed By: #### B MP, CRP #### [facility] [address] [address] [address] Meron Gentile T3U 34.0 % Normal 33.0-40.0 [facility] Comment on above: Performed By: #### B MP, CRP #### [facility] [address] [address] [address] Meron Gentile T4 [Mass/Vol] 7.60 ug/dL Normal 4.50-12.10 [facility] Comment on above: Performed By: #### B MP, CRP #### [facility] [address] [address] [address] Meron Gentile GLYCOHEMOGLOBIN A1Con 2021 ADA RECOMMENDATION SEE BELOW Normal [facility] Comment on above: Result Comment: ADA RECOMMENDED LIMIT 4.0 - 6.0 ADA THERAPEUTIC TARGET < 7.0 ACTION SUGGESTED > 7.0 Performed By: #### C MADM, BMP #### [facility] [address] [address] [address] Meron Gentile Glucose [Mass/Vol] 111 mg/dL Normal [facility] Comment on above: Performed By: #### C MADM, BMP #### [facility] [address] [address] [address] Meron Gentile HbA1c (Bld) [Mass fraction] 5.5 % Normal 4.5-6.2 [facility] Comment on above: Performed By: #### C MADM, BMP #### [facility] [address] [address] [address] Meron Gentile LIPID PROFILEon 09-25-2021 CHOL-HDL RATIO NORM SEE BELOW Normal [facility] Comment on above: Result Comment: 3.3 - 4.4 LOW RISK 4.4 - 7.1 AVERAGE RISK 7.1 - 11.0 MODERATE RISK >11.0 HIGH RISK Performed By: #### B MP, CRP #### [facility] [address] [address] [address] Meron Gentile Cholesterol [Mass/Vol] 257 mg/dL Critically high <=200 [facility] Comment on above: Performed By: #### B MP, CRP #### [facility] [address] [address] [address] Meron Gentile Cholesterol in HDL [Mass/Vol] 41 mg/dL Normal 40-60 [facility] Comment on above: Performed By: #### B MP, CRP #### [facility] [address] [address] [address] Meron Gentile Cholesterol in LDL [Mass/Vol] 171.6 mg/dL Normal [facility] Comment on above: Performed By: #### B MP, CRP #### [facility] [address] [address] [address] Meron Gentile Cholesterol.total/Cho lesterol in HDL [Mass ratio] 6.3 {ratio} Normal [facility] Comment on above: Performed By: #### B MP, CRP #### [facility] [address] [address] [address] eMron Gentile HDL NORMAL > or = 60 mg/dl - LO W CARDIOVASCULAR RISK <40 mg/dl - HIGH CARDIOVASCULAR RISK Normal [facility] Comment on above: Performed By: #### B MP, CRP #### [facility] [id number] Meron Gentile LDL CALC NORMAL SEE BELOW Normal [facility] Comment on above: Result Comment: <100 mg/dl OPTIMAL 100 - 129 mg/dl NEAR OR ABOVE OPTIMAL 130 - 159 mg/dl BORDERLINE HIGH 160 - 189 mg/dl HIGH >190 mg/dl VERY HIGH Performed By: #### B MP, CRP #### [facility] [address] [address] [address] Meron Gentile Triglyceride [Mass/Vol] 222 mg/dL Critically high <=150 [facility] Comment on above: Performed By: #### B MP, CRP #### [facility] [address] [place] [address] Dr. Meron Gentile VLDL CALC 44.4 mg/dL Normal [facility] Comment on above: Performed By: #### B MP, CRP #### [facility] [address] [place] [address] Dr. Meron Gentile PROF 14(COMP METB)on 022 Albumin [Mass/Vol] 3.7 g/dL Normal 3.4-5.0 [facility] Comment on above: Performed By: #### B MP, CRP #### [facility] [address] [place] [address] Dr. Meron Gentile Albumin/Globulin [Mass ratio] 1.1 {ratio} Normal [facility] Comment on above: Performed By: #### B MP, CRP #### [facility] [address] [place] [address] Dr. Meron Gentile ALP [Catalytic activity/Vol] 55 U/L Normal 46-116 [facility] Comment on above: Performed By: #### B MP, CRP #### [facility] [address] [place] [address] Dr. Meron Gentile ALT [Catalytic activity/Vol] 60 U/L Normal 16-63 [facility] Comment on above: Performed By: #### B MP, CRP #### [facility] [address] [place] [address] Dr. Meron Gentile Anion gap [Moles/Vol] 11.5 mmol/L Normal [facility] Comment on above: Performed By: #### B MP, CRP #### [facility] [address] [place] [address] Dr. Meron Gentile AST [Catalytic activity/Vol] 19 U/L Normal 15-37 [facility] Comment on above: Performed By: #### B MP, CRP #### [facility] [address] [place] [address] Dr. Meron Gentile Bilirubin [Mass/Vol] 0.4 mg/dL Normal 0.2-1.0 [facility] Comment on above: Performed By: #### B MP, CRP #### [facility] [address] [place] [address] Dr. Meron Gentile Calcium [Mass/Vol] 9.0 mg/dL Normal 8.5-10.1 [facility] Comment on above: Performed By: #### B MP, CRP #### [facility] [address] [place] [address] Dr. Meorn Gentile Chloride [Moles/Vol] 100 mmol/L Normal 98-107 [facility] Comment on above: Performed By: #### B MP, CRP #### [facility] [address] [place] [address] Dr. Meron Gentile CO2 [Moles/Vol] 29.4 mmol/L Normal 21.0-32.0 [facility] Comment on above: Performed By: #### B MP, CRP #### [facility] [address] [place] [address] Dr. Meron Gentile Creatinine [Mass/Vol] 0.80 mg/dL Normal 0.70-1.30 [facility] Comment on above: Performed By: #### B MP, CRP #### [facility] [address] [place] [address] Dr. Meron Gentile EGFR-AF IRANIAN >60 Normal >=60 [facility] Comment on above: Performed By: #### B MP, CRP #### [facility] [address] [place] [address] Dr. Meron Gentile EGFR-NON AF IRANIAN >60 Normal >=60 [facility] Comment on above: Performed By: #### B MP, CRP #### [facility] [address] [place] [address] Dr. Meron Gentile Globulin (S) [Mass/Vol] 3.3 g/dL Normal [facility] Comment on above: Performed By: #### B MP, CRP #### [facility] [address] [place] [address] Dr. Meron Gentile Glucose [Mass/Vol] 124 mg/dL Critically high 74-106 [facility] Comment on above: Performed By: #### B MP, CRP #### [facility] [address] [place] [address] Dr. Meron Gentile Potassium [Moles/Vol] 3.9 mmol/L Normal 3.5-5.1 [facility] Comment on above: Performed By: #### B MP, CRP #### [facility] [address] [place] [address] Dr. Meron Gentile Protein [Mass/Vol] 7.0 g/dL Normal 6.4-8.2 [facility] Comment on above: Performed By: #### B MP, CRP #### [facility] [address] [place] [address] Dr. Meron Gentile Sodium [Moles/Vol] 137 mmol/L Normal 136-145 [facility] Comment on above: Performed By: #### B MP, CRP #### [facility] [address] [place] [address] Dr. Meron Gentile Urea nitrogen [Mass/Vol] 10.0 mg/dL Normal 7.0-18.0 [facility] Comment on above: Performed By: #### B MP, CRP #### [facility] [address] [place] [address] Dr. Meron Gentile Urea nitrogen/Creatinine [Mass ratio] 12.5 mg/mg Normal [facility] Comment on above: Performed By: #### B MP, CRP #### [facility] [address] [place] [address] Dr. Meron Gentile TSHon 09-25-2021 TSH 4.858 uIU/mL Critically high 0.358-3.740 [facility] Comment on above: Performed By: #### B MP, CRP #### [facility] [address] [place] [address] Dr. Meron Gentile TSH RANGE SEE BELOW Normal [facility] Comment on above: Result Comment: <0.3 4 UIU/ml HYPERTHYROID 0.34-5.60 UIU/ml EUTHYROID >5.60 UIU/ml HYPOTHYROID Performed By: #### B MP, CRP #### [facility] [address] [address] [address] Meron Gentile URIC ACID SERUMon 09-25-2021 Urate [Mass/Vol] 5.6 mg/dL Normal 3.5-7.2 [facility] Comment on above: Performed By: #### B MP, CRP #### [facility] [address] [address] [address] Meron Gentile US CAROTID ART BILon [...] by: MIRIAM DIAZ Date: 2021-09-25 10:43 Normal [facility] XR HUMERUS LT MIN 2Von 09-14 XR HUMERUS LT MIN 2V EXAM: XR HUMERUS LT MIN 2V HISTORY: Pain COMPARISON: None. TECHNIQUE: 2 views of the left humerus FINDINGS: No acute fracture seen. The soft tissues appear unremarkable. IMPRESSION: No acute fracture of the left humerus Electronically authenticated by: DOMINIC ROMERO Date: 2021-09-14 20:27 Normal [facility] Initial Visit (Neurosurgery) on 01-20-2018 Initial Visit (Neurosurgery) No report was sent Normal [facility] Provider Noteon 7 HIM IP Note OR Director Of Gift Planning Normal [facility] Vital Signs Date Time Vital Sign Value Performing Clinician Facility 04-22-2023 21:28-0500 Body temperature 97.52 [degF] carlosOddslifemary kay [facility] 04-22-2023 21:28-0500 Diastolic blood pressure 70 mm[Hg] [employer] [facility] [employer] [facility] 04-22-2023 21:28-0500 Heart rate 100 /min [facility] Dine [employer] [facility] 04-22-2023 21:28-0500 Respiratory rate 18 /min Issa [facility] 04-22-2023 21:28-0500 SaO2% (BldA) [Mass fraction] 99 % Chay[facility] 04-22-2023 21:28-0500 Systolic blood pressure 133 mm[Hg] [facility] 03-04-2023 10:09-0400 Blood Pressure Location Nahed Lue [facility] 03-04-2023 10:09-0400 Diastolic blood pressure 82 mm[Hg] Nahed Lue [facility] 03-04-2023 10:09-0400 Heart rate 78 /min Nahed Lue [facility] 03-04-2023 10:09-0400 Respiratory rate 16 /min Nahed Lue [facility] 03-04-2023 10:09-0400 Systolic blood pressure 124 mm[Hg] Nahed Lue [facility] 12-16-2022 14:39-0400 Body height 177.8 cm Lino Mendiola MD Work Phone: [facility] 12-16-2022 14:39-0400 Body weight 95.25 kg Lino Mendiola MD Work Phone: [facility] 12-16-2022 14:39-0400 Diastolic blood pressure 86 mm[Hg] Lino Mendiola MD Work Phone: [facility] 12-16-2022 14:39-0400 Heart rate 83 /min Lino Mendiola MD Work Phone: [facility] 12-16-2022 14:39-0400 SaO2% (BldA) [Mass fraction] 98 % Lino Mendiola MD Work Phone: [facility] 12-16-2022 14:39-0400 Systolic blood pressure 144 mm[Hg] Lino Mendiola MD Work Phone: [facility] 10-29-2022 22:34-0400 Body height 177.8 cm MD Erlinda Nunez Work Phone: [facility] 10-29-2022 22:34-0400 Body temperature 98.2 [degF] MD Erlinda Nunez Work Phone: [facility] 10-29-2022 22:34-0400 Body weight 100.85 kg MD Erlinda Nunez Work Phone: [facility] 10-29-2022 22:34-0400 Diastolic blood pressure 86 mm[Hg] MD Erlinda Nunez Work Phone: [facility] 10-29-2022 22:34-0400 Heart rate 98 /min MD Erlinda Nunez Work Phone: [facility] 10-29-2022 22:34-0400 Respiratory rate 14 /min MD Erlinda Nunez Work Phone: [facility] 10-29-2022 22:34-0400 SaO2% (BldA) [Mass fraction] 100 % MD Erlinda Nunez Work Phone: [facility] 10-29-2022 22:34-0400 Systolic blood pressure 150 mm[Hg] MD Erlinda Nunez Work Phone: [facility] 09-29-2022 13:10-0400 Blood Pressure Location Scott [facility] 09-29-2022 13:10-0400 Body temperature 98.06 [degF] [facility] 09-29-2022 13:10-0400 Diastolic blood pressure 88 mm[Hg] [facility] 09-29-2022 13:10-0400 Heart rate 82 /min [facility] 09-29-2022 13:10-0400 Mean blood pressure 106 mm[Hg] [facility] 09-29-2022 13:10-0400 Respiratory rate 16 /min [facility] 09-29-2022 13:10-0400 SaO2% (BldA) [Mass fraction] 98 % [facility] 09-29-2022 13:10-0400 Systolic blood pressure 142 mm[Hg] [facility] 09-29-2022 12:00-0400 Body temperature 97.7 [degF] [facility] 09-29-2022 12:00-0400 Diastolic blood pressure 84 mm[Hg] [facility] 09-29-2022 12:00-0400 Heart rate 80 /min [facility] 09-29-2022 12:00-0400 SaO2% (BldA) [Mass fraction] 95 % [facility] 09-29-2022 12:00-0400 Systolic blood pressure 134 mm[Hg] [facility] 09-29-2022 11:51-0400 Body temperature 97.52 [degF] [facility] 09-29-2022 11:51-0400 Diastolic blood pressure 111 mm[Hg] [facility] 09-29-2022 11:51-0400 Heart rate 83 /min [facility] 09-29-2022 11:51-0400 Mean blood pressure 117 mm[Hg] [facility] 09-29-2022 11:51-0400 Respiratory rate 17 /min [facility] 09-29-2022 11:51-0400 SaO2% (BldA) [Mass fraction] 94 % [facility] 09-29-2022 11:51-0400 Systolic blood pressure 129 mm[Hg] [facility] 09-29-2022 11:40-0400 Mean blood pressure 91 mm[Hg] [facility] 09-29-2022 11:40-0400 Respiratory rate 18 /min [facility] 09-29-2022 11:35-0400 Respiratory rate 16 /min [facility] 09-29-2022 11:26-0400 Body temperature 96.98 [degF] [facility] 09-29-2022 08:31-0400 Blood Pressure Location [facility] 09-29-2022 08:30-0400 Body temperature 97.52 [degF] [facility] 09-29-2022 08:30-0400 Heart rate 96 /min [facility] 09-29-2022 08:30-0400 Respiratory rate 18 /min [facility] 09-19-2022 13:12-0400 Diastolic blood pressure 86 mm[Hg] [facility] 09-19-2022 13:12-0400 Heart rate 80 /min [facility] 09-19-2022 13:12-0400 Mean blood pressure 100 mm[Hg] [facility] 09-19-2022 13:12-0400 Systolic blood pressure 127 mm[Hg] [facility] 09-19-2022 13:12-0400 Blood Pressure Location [facility] 09-19-2022 13:11-0400 Heart rate 82 /min [facility] 09-19-2022 13:11-0400 SaO2% (BldA) [Mass fraction] 96 % [facility] 09-19-2022 13:11-0400 Respiratory rate 16 /min [facility] 09-19-2022 13:10-0400 Body temperature 98.24 [degF] [facility] 09-19-2022 13:10-0400 Diastolic blood pressure 88 mm[Hg] [facility] 09-19-2022 13:10-0400 Mean blood pressure 100 mm[Hg] [facility] 09-19-2022 13:10-0400 Systolic blood pressure 125 mm[Hg] [facility] 09-19-2022 13:10-0400 Blood Pressure Location [facility] 01-07-2022 12:47-0400 Body height 180.3 cm oJse Angel Emery APRN.CNP Work Phone: [facility] 01-07-2022 12:47-0400 Body weight 98.7 kg Jose Angel Emery APRN.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 Work Phone: [facility] 01-07-2022 12:47-0400 Diastolic blood pressure 77 mm[Hg] Jose Angel Emery APRN.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 Work Phone: [facility] 01-07-2022 12:47-0400 Heart rate 86 /min Jose Angel Emery APRN.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 Work Phone: [facility] 01-07-2022 12:47-0400 Respiratory rate 19 /min Jose Angel Emery APRN.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 Work Phone: [facility] 01-07-2022 12:47-0400 SaO2% (BldA) [Mass fraction] 98 % Jose Angel Emery APRN.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 Work Phone: [facility] 01-07-2022 12:47-0400 Systolic blood pressure 137 mm[Hg] Jose Angel Emery APRN.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 Work Phone: [facility] 08-20-2021 14:15-0400 Body height 180.3 cm Lino Mendiola MD Work Phone: [facility] 08-20-2021 14:15-0400 Body weight 98.88 kg Lino Mendiola MD Work Phone: [facility] 08-20-2021 14:15-0400 Diastolic blood pressure 87 mm[Hg] Lino Mendiola MD Work Phone: [facility] 08-20-2021 14:15-0400 Heart rate 104 /min Lino Mendiola MD Work Phone: [facility] 08-20-2021 14:15-0400 Respiratory rate 19 /min Lino Mendiola MD Work Phone: [facility] 08-20-2021 14:15-0400 SaO2% (BldA) [Mass fraction] 97 % Lino Mendiola MD Work Phone: [facility] 08-20-2021 14:15-0400 Systolic blood pressure 130 mm[Hg] Lino Mendiola MD Work Phone: [facility] Encounters Encounter Date Encounter Type Care Provider Facility Start: 06-26-2023 End: 06-26-2023 ambulatory SELF Facility:[facility] Start: 06-24-2023 ambulatory MYA TENA Facility:[facility] Start: 06-23-2023 ambulatory ERLINDA M HOY Facility: [facility] Start: 06-22-2023 ambulatory ERLINDA M HOY Facility: [facility] Start: 06-19-2023 End: 06-20-2023 ambulatory Nahed Doran Facility:[facility] Start: 06-19-2023 End: 06-19-2023 Patient encounter procedure Nahed Doran [facility] [place] Start: 06-18-2023 ambulatory ERLINDA M HOY Facility: [facility] Start: 06-17-2023 ambulatory JOSI DETTLING Facility :[facility] Start: 06-16-2023 ambulatory ERLINDA M HOY Facility: [facility] Start: 06-15-2023 ambulatory ERLINDA M HOY Facility: [facility] Start: 06-11-2023 ambulatory ERLINDA M HOY Facility: [facility] Start: 06-09-2023 ambulatory ERLINDA M HOY Facility: [facility] Start: 06-08-2023 ambulatory ERLINDA M HOY Facility: [facility] Start: 06-05-2023 End: 06-05-2023 ambulatory NICK LA Facility:[facility] Start: 06-04-2023 ambulatory ERLINDA M HOY Facility: [facility] Start: 06-03-2023 ambulatory ERLINDA M HOY Facility: [facility] Start: 05-29-2023 End: 05-29-2023 ambulatory PAOLA MICHEL Not Available Start: 05-28-2023 ambulatory JOSI DETTLING Facility :[facility] Start: 05-27-2023 ambulatory JOSI DETTLING Facility :[facility] Start: 05-27-2023 ambulatory MYA TENA Facility:[facility] Start: 05-26-2023 ambulatory ERLINDA M HOY Facility: [facility] Start: 05-25-2023 ambulatory MYA TENA Facility:[facility] Start: 05-21-2023 ambulatory ERLINDA M HOY Facility: [facility] Start: 05-21-2023 End: 05-21-2023 Subsequent hospital visit by physician Iop Team B [facility] Start: 05-20-2023 ambulatory ERLINDA M HOY Facility: [facility] Start: 05-20-2023 End: 05-20-2023 Subsequent hospital visit by physician Iop Team B [facility] Start: 05-19-2023 ambulatory ERLINDA M HOY Facility: [facility] Start: 05-19-2023 End: 05-19-2023 Subsequent hospital visit by physician Iop Team B [facility] Start: 05-14-2023 ambulatory ERLINDA M HOY Facility: [facility] Start: 05-14-2023 End: 05-14-2023 Subsequent hospital visit by physician Iop Team B [facility] Start: 05-13-2023 ambulatory MYA TENA Facility:[facility] Start: 05-13-2023 End: 05-13-2023 Subsequent hospital visit by physician Iop Team B [facility] Start: 05-12-2023 ambulatory MICHAEL Jay acility:[facility] Start: 05-12-2023 End: 05-12-2023 Subsequent hospital visit by physician Josi Queen PA-C Work Phone: [facility] Start: 05-08-2023 End: 05-09-2023 ambulatory NADIRA PURDY Facility:[facility] Start: 05-08-2023 End: 05-08-2023 ambulatory ERLINDA M HOY Facility:[facility] Start: 05-08-2023 End: 05-09-2023 ambulatory ERLINDA M HOY Facility:[facility] Start: 04-27-2023 ambulatory MICHAEL Jay acility:[facility] Start: 04-24-2023 End: 04-24-2023 ambulatory PAOLA MICHEL Not Available Start: 04-22-2023 End: 04-23-2023 Emergency department patient visit DO Issa Levy Facility:[facility] Start: 04-22-2023 End: 04-22-2023 Emergency department patient visit Issa [facility] Start: 04-17-2023 End: 04-17-2023 ambulatory ERLINDA NUNEZ Facility:[facility] Start: 04-10-2023 End: 04-11-2023 ambulatory LINO MENDIOLA Facility:[facility] Start: 04-07-2023 Telephone encounter Lewis harding [facility] Work Phone: Psychiatry Comment on above: Patient Update Start: 03-26-2023 Refill Lino Mendiola MD Work Phone: Neurology Comment on above: Refill Request Start: 03-06-2023 End: 03-06-2023 ambulatory ERLINDA NUNEZ Facility:[facility] Start: 03-04-2023 End: 03-05-2023 ambulatory Nahed M. Janethe Facility:[facility] Start: 03-04-2023 End: 03-05-2023 ambulatory Nahed M. Lue Facility:[facility] Start: 03-04-2023 End: 03-04-2023 Lab Drop off Nahed M. Janethe [facility] Start: 03-04-2023 End: 03-04-2023 Patient encounter procedure Nahed M. Lue [facility] [place] Start: 02-27-2023 End: 02-27-2023 ambulatory Billie Alonso MD Work Phone: Neurology Comment on above: Chronic migraine wit hout aura without status migrainosus, not intractable (Primary Dx) Start: 02-27-2023 End: 02-27-2023 Telemedicine consultation with patient Billie Alonso MD Work Phone: [facility] Start: 02-20-2023 End: 02-20-2023 ambulatory ERLINDA NUNEZ Facility:[facility] Start: 01-29-2023 End: 01-29-2023 ambulatory Billie Alonso MD Work Phone: Neurology Comment on above: Chronic migraine wit hout aura without status migrainosus, not intractable (Primary Dx) Start: 01-29-2023 End: 01-29-2023 Telemedicine consultation with patient Billie Alonso MD Work Phone: [facility] Start: 01-26-2023 End: 01-26-2023 ambulatory ERLIDNA NUNEZ Facility:[facility] Start: 01-01-2023 End: 01-01-2023 Emergency department patient visit Erlinda Nunez Facility:[facility] Start: 12-16-2022 End: 12-17-2022 ambulatory LINO MENDIOLA Facility:[facility] Start: 12-16-2022 Telephone encounter Lino voss MD Work Phone: Neurology Comment on above: Medication Concern ( Indomethacin) Start: 12-16-2022 End: 12-16-2022 Patient encounter procedure Ervin Grant PhD Work Phone: Neurology Comment on above: Bipolar II disorder (HCC) (Primary Dx) Migraine without aur a, intractable, with status migrainosus (Primary Dx); Partial epilepsy with impairment of consciousness, intractable (HCC) Start: 12-12-2022 Refill Lizeth PICKARDN.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 Work Phone: Neurology Start: 12-11-2022 Refill Billie causey MD Work Phone: Neurology Comment on above: Refill Request medication concern Start: 11-20-2022 ambulatory Lino Mendiola MD Work Phone: Neurology Comment on above: mental health Start: 11-20-2022 Telephone encounter Billie gandara MD Work Phone: Neurology Start: 10-30-2022 End: 10-30-2022 Emergency department patient visit Davis Mir Facility:[facility] Start: 10-29-2022 End: 10-29-2022 Emergency department patient visit MD Erlinda Nunez Work Phone: [facility] Work Phone: Start: 10-27-2022 End: 10-28-2022 ambulatory LINO MENDIOLA Facility:[facility] Start: 09-29-2022 End: 09-29-2022 ambulatory Scott Nassar Facility:[facility] Start: 09-29-2022 End: 09-29-2022 Admission to same day surgery center Loyal Arleth [facility] Start: 09-21-2022 End: 09-22-2022 Emergency department patient visit Virgil Dozier Facility:[facility] Start: 09-19-2022 ambulatory Facility:[id number] Start: 09-19-2022 End: 09-20-2022 ambulatory Scott Nassar Facility:[facility] Start: 09-19-2022 End: 09-19-2022 Patient encounter procedure Scott [facility] Start: 09-17-2022 Telephone encounter Lino voss MD Work Phone: Neurology Comment on above: Letter (Surgery colton santiago) Start: 09-02-2022 End: 09-03-2022 ambulatory ERLINDA NUNEZ Facility:[facility] Start: 09-02-2022 End: 09-03-2022 ambulatory NADIRA PURDY Facility:[facility] Start: 08-28-2022 ambulatory Lino Mendiola MD Work Phone: Neurology Comment on above: VNS Start: 08-22-2022 End: 08-23-2022 ambulatory MELLY NEWTON Facility:[facility] Start: 08-12-2022 End: 08-12-2022 ambulatory BILLIE ALONSO Facility:[facility] Start: 07-31-2022 Telephone encounter Lino voss [...] Facili ty:[facility] Start: 10-04-2021 End: 10-04-2021 Distance [facility] Lesvia KRAUSYD Work Phone: Neurology Comment on above: Bipolar II disorder (HCC) (Primary Dx) Start: 09-27-2021 Telephone encounter Lesvia Robert palomares PSYD Work Phone: Neurology Comment on above: Appointment Start: 09-25-2021 End: 09-26-[address] ERLINDA NUNEZ . Facility:[facility] Start: 09-20-2021 Telephone encounter Lesvia Jones marielle HILL Work Phone: Neurology Comment on above: Appointment Start: 09-14-2021 End: 09-14-[address] ERLINDA NUNEZ . Facility:[facility] Start: 09-13-2021 End: 09-13-2021 [facility] Lesvia Viveros PSYD Work Phone: Neurology Comment on above: Bipolar 2 disorder ( HCC) Start: 08-20-2021 End: 08-20-2021 Patient encounter procedure Lino Mendiola MD Work Phone: Neurology Comment on above: 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, intractable (HCC) (Primary Dx); Recurrent major depression in partial remission (HCC) Start: 11-18-2016 End: 11-18-2016 [facility] Procedures Date Procedure Procedure Detail Performing Clinician Start: 09-29-2022 Arthroscopy of knee Luiz mike Nass[facility] Start: 01-07-2022 Radiologic exam ches t 2 views Horace Ervin PA-C Work Phone: Start: 08-23-2022 Radiologic examinati on neck soft tissue Horace Ervin PA-C Work Phone: Start: 09-25-[address] VINAYAK NUNEZ . Comment on above: Performed By: #### C CLEMENCIA, BARRY #### [facility] [address] [place] [address] Dr. Meron Gentile Start: 06-20-2020 Lipid 1996 panel - S jaspreet or Plasma Billie Alonso MD Work Phone: Start: 11-25-2018 Cystoscope, device (physical object) Nahed Espinoza Start: 11-18-2016 [facility] CESAR ARNOLD Start: 01-04-2016 [...] - S jaspreet or Plasma Lipid Screening [facility] Start: 06-20-2025 Lipid [address] Lipid Screening [facility] Start: 06-20-2025 LIPID SCREEN LIPID SCREEN [facility] Start: 01-16-2023 Covid-19 Vaccine ( season) Covid-19 Vaccine ( season) [facility] Start: 01-16-2023 Influenza vaccination C [facility] Start: 10-29-2022 Radiologic examinati on of knee XR knee LT 4V* [facility]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 Time: 11:00 am Total Time: 50 minutes # of Patients: 9 THERAPEUTIC FOCUS: Coping Skills PROBLEM(S) ADDRESSED: -Mental health issues INTERVENTIONS: Facilitated discussion regarding various group member concerns, with focus on weekend planning. Provided feedback, supportive, reflective listening and facilitated connections between group members as they explored current stressors/symptoms through the context of program information. Assessed safety prior to patients leaving for day. RESPONSE: Appears attentive, engaged and participative. Patient developed weekend plan, as identified below: I will care for my body by: set up fish tank I will care for my mind by: read I will care for my emotions by: go to therapy I will care for my spirit by: journal I will care for my relationships by: reflect on previous life experiences with intention for self improvement I will manage urges and vulnerabilities of suicidal thoughts by: use safety plan, cope ahead, and talk with therapist Patient Affirms Safety. Patient reaffirmed Safety Plan and can stay safe from harm. PLAN: Continue IOP and current treatment plan. Pt confirmed attendance in IOP Thursday 06/22. Co-facilitated between: Jazmin Skelton [facility] AND Deedee Stein [employer] [facility] 06-17-2023 Note HNO ID: [id number] Author: SARAH RAE [facility] Service: Behavioral Health IOP (Intensive Outpatient Program) Author Type: Therapist Type: Progress Notes Filed: 06/17/2023 13:33 Note Text: Summary: DBT IOP virtual group *This service is provided virtually via [employer]. IOP (INTENSIVE OUTPATIENT PROGRAM) PROGRESS NOTE SERVICE DATE: 06/17/23 SERVICE TIME: 9AM-noon BEHAVIOR: Appearance: Casually dressed Attitude: Guarded initially becoming more cooperative Affect: Incongruent Mood: Depressed and Anxious Orientation: Oriented to person, place and time Thought:: Dichotomous, concrete Speech: Normal, interruptive at times Eye Contact: Intermittent Describe Change Noted Throughout the Day: None noted. GROUP THERAPY: Process Therapy Start Time: 9:00 am Total Time: 50 minutes # of Patients: 9 THERAPEUTIC FOCUS: Check-In PROBLEM(S) ADDRESSED: -Mental health [...] depression 3, anxiety 3, anger 3, shame/guilt 2, contentment 0 cindy 0; urges (0=none, 5 = extreme) - anger outburst-2, bottling up-4, rumination-2; SI/SIB - denied; skills - 2; medication compliance - yes; substance use - none; sleep - 6 hours Pt's check-in focused on: experiencing stressors yesterday related to spending a lot of time on the phone unexpectedly, including a call regarding his grandfather who is in poor health. He also reported additional stressors related to his stepbrother seeking housing support, and having to set boundaries with not allowing his stepbrother to stay with him. Pt reported using distraction skills, and when pressed by therapist pt was able to identify use of FAST, KOMAL, and STOP. He acknowledged having difficulty using skills at times, stating that he can have the tendency to go on autopilot. Pt also reported waking up throughout the night last night with panic attacks. Pt reports having experienced some active thoughts of SI in the last two weeks, noting fear of being honest about SI in group. Pt receptive to meeting with therapist in breakout room to further discuss SI. Patient Affirms Safety. In breakout room with therapist, Pt reported that he has had active SI every night for the last 2 weeks that has lasted between 30 minutes and 2 hours. Pt reported calling a local or national crisis hotline number 8 of these 14 nights. Pt stated that the outcome of these calls have not resulted in additional support/sending someone to his home because he has not felt like he needed that; Pt additionally expressed concern about possibly being sent to a non-[facility], however acknowledged that there is the option of him to go to [place] ED if needed which is 30 minutes away. Pt reported that last week the SI thoughts were the worst as he was thinking about taking 2,000mg of Seroquel that he had in his safe in his home. Pt stated that his brother and qltycg-sn-ksm have been checking in on him and his pszsuk-ji-eeh came over last week to remove the Seroquel from his safe so he no longer has access to these means. Pt indicated that he has 3 Ativan in his safe to use PRN as needed within current prescription, as well as ibuprofen and benadryl. Pt reported that his gxvqlt-sk-aij is now monitoring his hero device used for dispensing of medications and she gets alerts when he receives a dose of medication from there hero device to her iphone. Pt denied having any specific planning thoughtssince last week with the Seroquel. Pt stated that he does not think he needs to go to the emergency room at this time and can keep himself safe, noting that he will reach out to his psychiatrist via MyChart and phone call if this changes. Pt is future-oriented as evidenced by planning on continuing in DBT IOP, exploring in-person group therapy options at [facility], and maintaining appointments with individual therapist (tomorrow). Pt was strongly encouraged to be open with individual therapist about these changes in suicidal ideation so providers can be on the same page with supporting Pt's treatment; Pt receptive. Patient Data Generalized Anxiety Disorder Scale (REENA-7) REENA - 7 SCORES 05/08/2023 05/20/2023 06/17/2023 REENA-7 Scor (more content not included)... [facility] 06-17-2023 Note HNO ID: [id number] Author: SARAH RAE [facility] Service: Behavioral Health IOP (Intensive Outpatient Program) Author Type: Therapist Type: Plan of Care Filed: 06/17/2023 14:38 Note Text: Summary: DBT IOP Weekly Summary WEEKLY TREATMENT TEAM PROGRESS NOTE INTENSIVE OUTPATIENT PROGRAM June 17, 2023 Suicide risk: High Risk: Pt reports having experienced active thoughts every night over the last two weeks, disclosing that he has not been fully honest or transparent with therapists in group about this, as he has been denying SI daily until now. Pt reported that every night these active SI thoughts have lasted between 30 minutes and 2 hours. Pt reported calling a local or national crisis hotline number 8 of these 14 nights. Pt stated that the outcome of these calls have not resulted in additional support/sending someone to his home because he has not felt like he needed that; Pt additionally expressed concern [facility], however acknowledged that there is the option of him to go to [place] ED if needed which is 30 minutes away. Pt reported that last week the SI thoughts were the worst as he was thinking about taking 2,000mg of Seroquel that he had in his safe in his home. Pt stated that his brother and xhkwzs-yx-ioq have been checking in on him and his hlrfnw-ua-pkj came over last week to remove the Seroquel from his safe so he no longer has access to these means. Pt indicated that he has 3 Ativan in his safe to use PRN as needed within current prescription, as well as ibuprofen and benadryl. Pt reported that his rqcaql-pk-lqt is now monitoring his hero device used for dispensing of medications and she gets alerts when he receives a dose of medication from there hero device to her iphone. Pt denied having any specific planning thoughts since last week with the Seroquel. Pt stated that he does not think he needs to go to the emergency room at this time and can keep himself safe, noting that he will reach out to his psychiatrist via MyChart and phone call if this changes. Pt is future-oriented as evidenced by planning on continuing in [facility], exploring in-person group therapy options at [facility], and maintaining appointments with individual therapist (tomorrow). Pt was strongly encouraged to be open with individual therapist about these changes in suicidal ideation so providers can be on the same page with supporting Pt's treatment; Pt receptive. Pt has a recent history of a suicide [...] with crisis hotline/support numbers, is enrolled in [facility] four days a week for three hours per day, and is assigned [facility] daily questionnaire to assess risk. Self-Injury risk: Low Risk; Pt denies current urges or history of self injurious behavior. Pt is assessed daily, and has a safety plan to refer to as needed. Weekly update on patient progress summarized: Pt attended 3 days thus far this week, with anticipated attendance tomorrow. Pt was provided with psychoeducation this week on the following: dialectical thinking, opposite action vs problem-solving, crisis STOP and TIPP skills, mindfulness to relationships. Pt reports an increase in depression, anxiety, and ongoing heightened emotions, with urges to lash out of anger, bottle emotions, and ruminate; of note, Pt's 2-week measures reflect an increase in depression and anxiety and decrease in mindfulness, congruent with Pt's check-in reports as he frequently does not report use of skills, identifying being on autopilot throughout most of the day. Pt acknowledges distraction as the skill he uses most, and struggles with identifying other skills that he uses however recognizes use of others skills when therapists point out skill use to him (I.e. telling someone 'no' is component of KOMAL). Pt appears to be prioritizing the needs of others (grandfather, coworker) more this week, with limited awareness of how this is impacting his emotions and level of stress. Pt disclosed that he has not been fully transparent with staff regarding the frequency and intensity of SI thoughts and is receptive to being honest with DBT staff and individual therapist (next appointment tomorrow 06/18) moving forward. Interval Progress: Deteriorating Measurement-Based Assessment: Patient Data Generalized Anxiety Disorder Scale (REENA (more content not included)... [facility] 06-16-2023 Note HNO ID: [id number] Author: SARAH RAE [facility] Service: Behavioral Health IOP (Intensive Outpatient Program) Author Type: Therapist Type: Progress Notes Filed: 06/16/2023 12:31 Note Text: Summary: DBT IOP virtual group *This service is provided virtually via [employer]. IOP (INTENSIVE OUTPATIENT PROGRAM) PROGRESS NOTE SERVICE DATE: 06/16/23 SERVICE TIME: 9AM-noon BEHAVIOR: Appearance: Casually dressed Attitude: Cooperative, distractible at times Affect: Restricted/blunted Mood: Depressed, Anxious, and Pleasant Orientation: Oriented to person, place and time Thought:: Dichotomous, concrete Speech: Normal Eye Contact: Intermittent Describe Change Noted Throughout the Day: None noted. GROUP THERAPY: Process Therapy Start Time: 9:00 am Total Time: 50 minutes # of Patients: 7 THERAPEUTIC FOCUS: Check-In PROBLEM(S) ADDRESSED: -Mental health [...] 5=extreme) - depression 3, anxiety 3, anger 2, shame/guilt 1, contentment 1, cindy 1; urges (0=none, 5 = extreme) - anger outburst 1, bottling emotions 1 (not acted on either); SI/SIB - denied; skills - none listed initially, reported use of distraction when verbally checking in; Pt also encouraged by therapist to give himself credit for using willingness; medication compliance - yes; substance use - denied; sleep - 6 hours. Pt?s check-in centered on ?reading more on the emotion anger, just better control methods.? Pt reflected on the benefits of ?reading and writing? to regulate anger, as this is something he currently does and finds this to be effective. Pt explored options of integrating mindful breathing and mindful meditation to further regulate anger. Pt was receptive to the dialectic highlighted by therapist of ?I can feel angry and I can manage it and not act aggressively?. Pt shared that he is waiting to hear back from [facility] regarding in-person group therapy/IOP/PHP options and to get scheduled for an intake, noting that his individual therapist is providing clinical information to [facility] as part of Pt?s intake process. Patient Affirms Safety. Patient Data IOP Daily Questionnaire IOP Daily 05/30/2023 05/30/2023 06/15/2023 Today, is your belief in your ability [...] how would you rate your mood now? 3 3 5 Process Therapy Start Time: 10:00 am Total Time: 50 minutes # of Patients: 8 THERAPEUTIC FOCUS: Opposite action vs. Problem-solving PROBLEM(S) ADDRESSED: -Mental health issues INTERVENTIONS: Mindfulness practice implemented and processed. Provided introduction of the skill of opposite action to reduce unjustified or intense emotions through use of handouts, discussion and group examples.?Additionally explored application of problem-solving strategies to reduce heightened justified emotions, with emphasis on differentiating when to use opposite action versus problem-solving.?Application of concepts to patient's individualized treatment goals.?? RESPONSE: Appears attentive, engaged and participative. Pt was an active participant throughout the psychoeducational dialogue on opposite action vs problem-solving, sharing thoughts and personal experiences frequently. Pt participated in group example around identifying common action urges associated with various emotions, identifying that sadness makes him want to sleep, and shame makes him want to punish himself. Pt asked questions throughout the discussion for the purpose of clarifying understanding of skill application to their experiences. Process Therapy Start Time: 11:00 am Total Time: 50 minutes # of Patients: 8 THERAPEUTIC FOCUS: Coping Skills PROBLEM(S) ADDRESSED: -Mental health issues INTERVENTIONS: Facilitated discussion regarding various group member concerns, with focus on skill application. Provided feedback, supportive, reflective listening and facilitated connections between group members as they explored current stressors/symptoms through the context of program information. Assessed safety prior to patients wes (more content not included)... [facility] 06-15-2023 Note O ID: [id number] Author: SARAH RAE [facility] Service: Behavioral Health IOP (Intensive Outpatient Program) Author Type: Therapist Type: Progress Notes Filed: 06/15/2023 13:00 Note Text: Summary: DBT IOP virtual group *This service is provided virtually via [employer]. IOP (INTENSIVE OUTPATIENT PROGRAM) PROGRESS NOTE SERVICE DATE: 06/15/23 SERVICE TIME: 9AM-noon BEHAVIOR: Appearance: Casually dressed Attitude: Cooperative Affect: Restricted/blunted Mood: Anxious and Pleasant Orientation: Oriented to person, place and time Thought:: [place], dichotomous Speech: Normal Eye Contact: Intermittent Describe Change Noted Throughout the Day: None noted. GROUP THERAPY: Process Therapy Start Time: 9:00 am Total Time: 50 minutes # of Patients: 7 THERAPEUTIC FOCUS: Check-In PROBLEM(S) ADDRESSED: -Mental health [...] depression 3, anxiety 3, anger 3, shame/guilt 1, contentment 1 cindy 1; urges (0=none, 5 = extreme) - anger-2, bottling up-3; SI/SIB - none; skills - 0; medication compliance - yes; substance use - none; sleep - 6 hours Pt's check-in focused on: having a busy day yesterday due to working a lot, being left in charge unexpectedly and offering support to a coworker who is struggling emotionally. Pt reported also learning that he was nominated for employee of the month, as well. Pt reflected upon using interpersonal skills to mindfully listen and offer his coworker support, through use of acting on values and GIVE. Pt continues to explore in-person IOP options, and is looking at options through his therapist. Patient Affirms Safety. Pt's diary card that was completed throughout the weekend indicated: N/A, Pt did not send in completed diary card prior to group starting. Patient Data IOP Daily Questionnaire IOP Daily 05/27/2023 05/30/2023 05/30/2023 Today, is your belief in your ability [...] would you rate your mood now? 5 3 3 Process Therapy Start Time: 10:00 am Total Time: 50 minutes # of Patients: 6 THERAPEUTIC FOCUS: Dialectical thinking PROBLEM(S) ADDRESSED: -Mental health issues INTERVENTIONS: Mindfulness practice implemented and processed. Focus on exploration of dialectics, including balancing change and acceptance. ?Collaboratively explored these concepts as a group with examples and in connection to members' individualized experiences and treatment goals. RESPONSE: Appears attentive, engaged and participative. Pt was an active participant throughout the psychoeducational dialogue on dialectics, offering to read and sharing thoughts and personal experiences frequently. Pt asked questions throughout the discussion for the purpose of clarifying understanding of skill application to their experiences. Pt explored application of dialectical thinking through use of generalized examples. Pt shared that when he has tried using dialectical thinking in the past, ?I?ve been accused of looking too much into it.? Pt expressed having difficulty with adapting to ?rapid changes? in his life, noting that when his routine gets disrupted, ?it derails me, it causes irritation and frustration.? Pt was encouraged by therapist to consider applying dialectical thinking by embracing change more willingly; Pt receptive and ambivalent. Process Therapy Start Time: 11:00 am Total Time: 50 minutes # of Patients: 6 THERAPEUTIC FOCUS: Coping Skills PROBLEM(S) ADDRESSED: -Mental health issues INTERVENTIONS: Facilitated discussion regarding various group member concerns, with focus on skill application. Provided feedback, supportive, reflective listening and facilitated connections between group members as they explored current stressors/symptoms through the context of program information. Assessed safety prior to patients leaving for day. RESPONSE: Appears attentive, engaged and participative. Pt further explored recent experiences relating to his relationship with his ex-girlfriend, noting that she has expressed to him uncerta (more content not included)... [facility] 06-11-2023 Note HNO ID: [id number] Author: MYA TENA APRN.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 Service: Psychiatry Author Type: Nurse Practitioner Type: Progress Notes Filed: 06/11/2023 12:53 Note Text: PSYC FOLLOW UP - PSYCHIATRIC PROGRESS NOTE INTENSIVE OUTPATIENT PROGRAM With the patient consent, visit was performed virtually. This virtual visit was performed using [employer] Video Visit. It required patient-provider interaction for the medical decision making as documented below. I have communicated my name and active licensure. The patient's identity and physical location were verified at the time of this visit. Either the patient or their legal insurance sales representative has been informed of the risks and benefits of -- and alternatives to -- treatment through a remote evaluation and consents to proceed with the evaluation remotely. Persons present: patient and [facility] provider. The patient or the patient's insurance sales representative consented to this virtual encounter. CC: I feel like I need an adjustment. HPI: Bishnu Coles is a 42 year old Single male with a past history of depression, bipolar disorder, PTSD, anxiety and ADHD who presents for a follow up while completing the DBT IOP program. -Stated some health issues arose. Noted that he had an episode that appeared like a seizure vs low blood sugar episode. Was getting confused. Noted that another episode recently happened and he checked his blood sugar and it was in the 70's. Took glucose tablets and drank some orange juice. Stated that it is happening more frequently since he has been losing weight. Noted that it seems to be happening in the afternoons. Stated that he is not eating breakfast and lunch. Encouraged to eat some foods around breakfast or lunch. Also encouraged to reach out to his PCP and make him aware. -Feels that he needs an adjustment with medications. Feels that medications are not effective as they were before. Denied having any issues with the decrease in Zoloft, however noted that his moods are not mellowing out as much. Over the last few weeks noticed the changes and feels that his irritability is increasing and his symptoms of depression and anxiety are increasing as well. Reviewed increasing the dose of Latuda and collaborated with outpatient provider. -Attempted to review skill use to help with his increased symptoms. Bishnu noted that he doesn't know if he is taking what he needs from the program due to the program being virtual. Stated that he finds himself zoning out during IOP and believes that it may be due to more listening than interacting. Reviewed outpatient IOP programs including [facility] and [facility]. Bishnu wants to stay within the Clinic, however his location is an issue. Will plan to call the above programs and discuss care options. -Denied any safety concerns including suicidal thinking, homicidal thinking and self-harm. Sleep: difficulty falling asleep Interest: diminished Guilt: quite a bit Energy: fluctuates with mood or stress Concentration: fluctuates Appetite: fair Psychomotor Activity: psychomotor activity was WNL. Suicide: None Phobias: no irrational fears Memory: Poor Anxiety: moderate Obsessions: none Compulsions: none Maricruz: Denies any symptoms of maricruz PTSD: The patient has experienced/witnessed trauma that threatened his or her integrity, response: fear/helpless. The patient responded to trauma with fear, helplessness or horror. Experiences recurrent distressing recollections of the trauma. Experiences intense psychological distress when exposed to internal or external cues that symbolize the trauma. Physiological reactivity on exposure to internal or external cues of the experienced trauma. Avoids thoughts, feelings or conversations associated with the trauma. Avoids activities, places or people that arouse recollections of the trauma. Inability to recall an important aspect of the trauma. Feelings of detachment or estrangement from others. Irritability or outbursts of anger. Difficulty concentrating. Self Mutilation: Denies Risks and benefits of the medication, including any black box warnings, were discussed with the patient. Current Outpatient Medications on File Prior to Encounter Medication Sig lurasidone (LATUDA) 40 mg tablet Take 1 tablet by mouth daily with dinner. QUEtiapine (SEROQUEL) 200 mg tablet Take 1 tablet by mouth daily at bedtime. lacosamide (VIMPAT) 100 mg tab Take 1 [...] times daily as needed for anxiety rizatriptan (MAXALT-MEDICAL NUMERICAL CONTROL OPERATOR) 10 mg disintegrating tablet Take 1 tablet by mouth as needed (at onset of headache. (more content not included)... [facility] 06-11-2023 Note O ID: [id number] Author: SARAH RAE [facility] Service: Behavioral Health IOP (Intensive Outpatient Program) Author Type: Therapist Type: Plan of Care Filed: 06/11/2023 13:16 Note Text: Summary: DBT [facility] Weekly Summary WEEKLY TREATMENT TEAM PROGRESS NOTE INTENSIVE OUTPATIENT PROGRAM June 11, 2023 Suicide risk: High Risk: Pt denied experiencing SI in group this week, last reported 2.5 weeks ago rated at '1' on 1-5 scale in the context of having a disagreement with his sister and ttathto-ty-tbh. Pt has a recent history of a suicide [...] with crisis hotline/support numbers, is enrolled in [facility] four days a week for three hours per day, and is assigned [facility] daily questionnaire to assess risk. Self-Injury risk: Low Risk; Pt denies current urges or history of self injurious behavior. Pt is assessed daily, and has a safety plan to refer to as needed. Weekly update on patient progress summarized: Pt attended 3 days this week, unable to attend yesterday due to problems with internet. Of note, Pt arrived late Thursday and today as well, missing the 9am group. Pt reports heightened sadness, anger, and anxiety, with urges to bottle emotions and lash out of anger that he acted on at times. Pt continues to experience physical health vulnerabilities, earlier this week reported having a seizure for the first time in 10 years, prompting him to seek emergency medical attention and experiencing fatigue and migraines throughout the remainder of the week. Pt additionally reported issues with [employer] and his internet, preventing him from attending group on time most days. Pt acknowledges feeling frustrated with these experiences and verbalized desire to explore in-person group therapy/IOP options, done collaboratively with Pt and treatment team. Pt met with program [facility] today for scheduled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 Start Time: 9:00 am Total Time: 50 minutes # of Patients: 7 THERAPEUTIC FOCUS: Check-In PROBLEM(S) ADDRESSED: -Mental health [...] depression 3, anxiety 3, anger 4, shame/guilt 2, contentment 1 cindy 1; urges (0=none, 5 = extreme) - anger outburst 1, bottling 1, rumination 2; SI/SIB - none; skills - 1, mf to body; medication compliance - yes; substance use - none; sleep - 6 hours Pt's check-in focused on: continuing to address migraine pain, stating that a friend dropped off essential oils that he put into a diffuser, which he found to be helpful. Pt reported feeling more relaxed in response, stating that he felt calmer and more at ease. Pt was observed to ask questions about his urges, appearing eager to increase understanding of program material and accomplishment of treatment goals. Patient Affirms Safety. Patient Data IOP Daily Questionnaire IOP Daily 05/27/2023 05/30/2023 05/30/2023 Today, is your belief in your ability [...] would you rate your mood now? 5 3 3 Process Therapy Start Time: 10:00 am Total Time: 50 minutes # of Patients: 7 THERAPEUTIC FOCUS: Relationship values PROBLEM(S) ADDRESSED: -Mental health issues INTERVENTIONS: Mindfulness practice implemented and processed. Focus on important relationships and identification of behavioral barriers in relationships, values clarification and setting goals in resolving problems or negative emotions that affect relationships. RESPONSE: Appears attentive, engaged and participative. Pt reflected on the mindful breathing practice and noted ?the floodgates opened, and all these other thoughts come in.? Pt was an active participant throughout the psychoeducational dialogue on relationship values, sharing thoughts and personal experiences frequently. Pt identified that he values ?reassurance? in relationships, with focus on finding this to be important for him to receive from others; Pt was encouraged by therapist to consider what he values wanting to contribute to his relationships and was receptive to acknowledging ?stability? in this context. Pt reported wanting to focus on the value of ?communication? in relationships, verbalizing awareness that his urges to lash out at others is a barrier to him acting more on this value. Pt asked questions throughout the discussion for the purpose of clarifying understanding of skill application to their experiences. Process Therapy Start Time: 11:00 am Total Time: 50 minutes # of Patients: 7 THERAPEUTIC FOCUS: Coping Skills PROBLEM(S) ADDRESSED: -Mental health issues INTERVENTIONS: Facilitated discussion regarding various group member concerns, with focus on weekend planning. Provided feedback, supportive, reflective listening and facilitated connections between group members as they explored current stressors/symptoms through the context of program information. Assessed safety prior to patients leaving for day. RESPONSE: Appears attentive, engaged and participative. Pt inquired if program staff had received his updated safety plan and ROIs via email; informed Pt that program staff had not received this yet. Helped Pt identify problem-solving options; Pt receptive to trying to resend email and/or bring docu (more content not included)... [facility] 06-03-2023 Note O ID: [id number] Author: SARAH RAE [facility] Service: Behavioral Health IOP (Intensive Outpatient Program) Author Type: Therapist Type: Plan of Care Filed: 06/03/2023 15:46 Note Text: Summary: DBT IOP Weekly Summary WEEKLY TREATMENT TEAM PROGRESS NOTE INTENSIVE OUTPATIENT PROGRAM June 03, 2023 Safety Assessment: Suicide risk: High Risk: Pt denied experiencing SI in group this week, last reported 1.5 weeks ago rated at '1' on 1-5 scale in the context of having a disagreement with his sister and [id number]. Pt has a recent history of a suicide [...] with crisis hotline/support numbers, is enrolled in [facility] four days a week for three hours per day, and is assigned [facility] daily questionnaire to assess risk. Self-Injury risk: Low Risk; Pt denies current urges or history of self injurious behavior. Pt is assessed daily, and has a safety plan to refer to as needed. Weekly update on patient progress summarized: Pt attended 1 day this week, not showing on Thursday and cancelling yesterday due to having a migraine, with anticipated attendance tomorrow. Of note, Pt was strongly encouraged to attend group yesterday with suggestions of how to manage migraine symptoms while still being able to attend IOP virtually, however Pt did not attend group. Pt was provided with psychoeducation this week on the following: abstinence and harm reduction AND relationship values. Pt appeared more withdrawn and disengaged this week, however remaining participative in discussions. Pt acknowledged the stressor of his ex communicating to him that she does not want to work out their relationship as triggering increased sadness and depression, which Pt acted on urges to isolate and stay in bed on Thursday and missed group in this context. Pt also experienced an ongoing migraine and poor sleep as vulnerabilities to heightened emotions and urges. Pt remains open and willing to reach out to his outpatient treatment team to address ongoing needs, with plans to see his therapist tomorrow and a new manager social work on Thursday. Pt continues to ask questions throughout skills and open therapy discussions to clarify understanding of skills to apply to his personal experiences. Interval Progress: Decompensating Measurement-Based Assessment: Patient Data Generalized Anxiety Disorder Scale (REENA-7) REENA - 7 SCORES 04/27/2023 05/08/2023 05/20/2023 REENA-7 Score 14 8 12 (0-4) minimal anxiety, (5-9) mild anxiety, (10-14) moderate anxiety, (15-21) severe anxiety Mindful Attention Awareness Scale (SARAH) Mindful Attention Awareness Scale (SARAH) 04/27/2023 05/20/2023 06/03/2023 Mindful Attention Awareness Scale Score 41 54 Incomplete Mindful Attention Awareness Scale Mean Score 2.73 3.6 Incomplete Patient Health Questionnaire (PHQ-9) PHQ-9 05/20/2023 06/03/2023 06/03/2023 Score 13 14 14 (0-4) minimal depression, (5-9) mild depression, (10-14) moderate depression, (15-19) moderately severe depression, (20-27) severe depression Plan: Pt will continue in IOP and follow Master Treatment Plan, with discharge scheduled 06/24/23 contingent on Pt's adherence to daily attendance expectations during the remainder of his time enrolled in the program. Pt is established with outpatient providers: prescriber: Michael Cordoba APRN-ENZO ([facility]) and therapist: ALVIN Perez (at [facility] in [place]). Pt has future appointment scheduled on 06/05 with manager social work ALVIN Lopez. Team members present: Sarah Rae [facility] Jazmin Skelton [facility] Mya Tena, MSN, [employer], 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, PMHNP-[facility] 06-03-2023 Note HNO ID: [id number] [facility]: [facility]: [facility]al Health IOP (Intensive Outpatient Program) Author Type: Counselor Type: Progress Notes Filed: 06/03/2023 12:01 Note Text: Summary: DBT IOP *This service is provided virtually via Mobile-XL/Solasta. IOP (INTENSIVE OUTPATIENT PROGRAM) PROGRESS NOTE SERVICE DATE: 06/03/23 SERVICE TIME: 9AM-noon BEHAVIOR: Appearance: Well Groomed Attitude: Cooperative Affect: Appropriate Mood: Depressed and Anxious Orientation: Oriented to person, place and time Thought:: [place] Speech: WNL Eye Contact: Intermittent Describe Change Noted Throughout [...] PHQ9, GAD7 and SARAH. RESPONSE: Appears attentive, disengaged observed frequently holding his head in his hand, and participative. Pt reported the following: mood (0=none, 5=extreme) - depression 4, anxiety 4, anger 4, shame/guilt 3, contentment 1, cindy 1; urges (0=none, 5 = extreme) - bottling emotions AND lashing out 3; SI/SIB - denied; skills - 4; medication compliance - yes; substance use - denied; sleep - 4 hours. Pt?s check-in centered on continuing to experience a migraine, which has been impacting his functioning. Pt reported that he plans on reaching out to providers soon if his symptoms do not improve. Pt indicated that he made the decision to revoke the release of information to have his sister as his emergency contact and is going to talk to his individual therapist tomorrow to have someone else (manager social work, case fitter, etc.) to replace her. Pt confirmed that he will send program staff updated ROIs and safety plan with these changes once they are finalized. Pt reported that he is having difficulty getting one of his medications refilled by his psychiatrist; Pt was encouraged to send an email to program [employer] with details. Patient Affirms Safety. Patient Data Generalized Anxiety Disorder Scale (REENA-7) REENA - 7 SCORES 04/27/2023 05/08/2023 05/20/2023 REENA-7 Score 14 8 12 (0-4) minimal anxiety, (5-9) mild anxiety, (10-14) moderate anxiety, (15-21) severe anxiety IOP Daily Questionnaire IOP Daily 05/27/2023 05/30/2023 05/30/2023 Today, is your belief in your ability [...] would you rate your mood now? 5 3 3 Mindful Attention Awareness Scale (SARAH) Mindful Attention Awareness Scale (SARAH) 04/27/2023 05/20/2023 06/03/2023 Mindful Attention Awareness Scale Score 41 54 Incomplete Mindful Attention Awareness Scale Mean Score 2.73 3.6 Incomplete Patient Health Questionnaire (PHQ-9) PHQ-9 05/20/2023 06/03/2023 06/03/2023 Score 13 14 14 (0-4) minimal depression, (5-9) mild depression, (10-14) moderate depression, (15-19) moderately severe depression, (20-27) severe depression Process Therapy Start Time: 10:00 am Total Time: 50 minutes # of Patients: 7 THERAPEUTIC FOCUS: Dialectical Abstinence PROBLEM(S) ADDRESSED: -Mental health issues INTERVENTIONS: Mindfulness practice implemented and processed. Discussion and education around dialectical abstinence. Collaboratively explored these concepts as a group with general examples and in connection to members' individualized experiences. RESPONSE: Appears attentive, engaged and participative. Pt was an active participant throughout the psychoeducational dialogue on dialectical abstinence, sharing thoughts and personal experiences frequently. Pt asked questions throughout the discussion for the purpose of clarifying understanding of skill application to their experiences, reflecting that he has difficulty letting go of addiction when exploring these concepts. When prompted, pt identified an urge behavior to focus on is retreating to bed/withdrawing. Process Therapy Start Time: 11:00 am Total Time: 50 minutes # of Patients: 7 THERAPEUTIC FOCUS: Coping Skills PROBLEM(S) ADDRESSED: -Mental health issues INTERVENTIONS: Facilitated discussion regarding various group (more content not included)... [facility] 06-02-2023 Note HNO ID: [id number] Author: JAZMIN SKELTON [facility] Service: Behavioral Health IOP (Intensive Outpatient Program) Author Type: Counselor Type: Progress Notes Filed: 06/02/2023 11:17 Note Text: Summary: Cancellation BEHAVIORAL HEALTH IOP (INTENSIVE OUTPATIENT PROGRAM) APPOINTMENT CANCELLATION COMMUNICATION DATE: 06/02/2023 Scheduled Intensive Outpatient Program appointment for Bishnu Coles was on 06/02/23 at 9AM. Patient canceled the appointment, stating that he has a migraine and looking at the computer screen made it worse. He reported taking migraine medication. Staff responded to patient's email, encouraging him to attend IOP, should he feel better. Pt did not connect to the group. Staff sent a follow up email, pointing out pt's 3 absences from IOP and asking him to attend daily moving forward, or discharge from IOP will be considered. SIGNATURE: Jazmin Skelton [facility] PATIENT NAME: Bishnu Coles DATE: June 02, 2023 TIME: 11:15 AM [facility] 06-01-2023 Note HNO ID: [id number] Author: SARAH RAE [facility] Service: Behavioral Health IOP (Intensive Outpatient Program) Author Type: Therapist Type: Progress Notes Filed: 06/01/2023 12:20 Note Text: Summary: DBT IOP No Show BEHAVIORAL HEALTH IOP (INTENSIVE OUTPATIENT PROGRAM) APPOINTMENT NO SHOW COMMUNICATION DATE: 06/01/2023 Scheduled Intensive Outpatient Program appointment for Bishnu Coles was on 06/01/23 at 9:00AM. Pt was no call/no show to DBT [facility]. Pt was emailed by program staff on the first break; due to Pt not responding to email, Pt was called by this therapist on the second break. Pt answered and reported that he needed to be alone , noting that he and his ex had a discussion last night where she told him that she is not interested in continuing to work out their relationship. Pt reported feeling crushed, I've been here crying all morning. Validated Pt's emotions and encouraged skill use centered on self-care and opposite action for remainder of the day, also encouraged Pt to communicate this to program staff ahead of time to be able to have support and guidance. Communicated to Pt to review mindfulness to thoughts and judgments as the skill he missed from today and to send diary cards from the weekend. Pt confirmed ability to use safety plan and understanding of attending DBT IOP tomorrow 06/02/23. SIGNATURE: Sarah Rae [facility] PATIENT NAME: Bishnu Coles DATE: June 01, 2023 TIME: 12:17 PM [facility] 05-28-2023 Note O ID: [id number] Author: SARAH RAE [facility] Service: Behavioral Health IOP (Intensive Outpatient Program) Author Type: Therapist Type: Progress Notes Filed: 05/28/2023 12:23 Note Text: Summary: DBT IOP virtual group *This service is provided virtually via Mobile-XL/Solasta. IOP (INTENSIVE OUTPATIENT PROGRAM) PROGRESS NOTE SERVICE DATE: 05/28/23 SERVICE TIME: 9AM-noon BEHAVIOR: Appearance: Casually dressed Attitude: Cooperative Affect: Restricted/blunted Mood: Anxious and Pleasant Orientation: Oriented to person, place and time Thought:: Logical, dichotomous Speech: Normal Eye Contact: Intermittent Describe Change [...] changes with sleep, appetite, energy level. RESPONSE: N/A, Pt not present in group due to issues with internet connection. Pt submitted his check-in below via email and joined at 10am. Pt reported the following: mood (0=none, 5=extreme) - depression 4, anxiety 4, anger 4, shame/guilt 3, contentment 1 cindy 1; urges (0=none, 5 = extreme) - anger outburst, rumination, and lashing out 3; SI/SIB - denied; skills - 4; medication compliance - yes; substance use - denied; sleep - 4 hours Patient Data IOP Daily Questionnaire IOP Daily 05/18/2023 05/26/2023 05/27/2023 Today, is your belief in your ability [...] would you rate your mood now? 4 1 5 Process Therapy Start Time: 10:00 am Total Time: 50 minutes # of Patients: 6 THERAPEUTIC FOCUS: FAST PROBLEM(S) ADDRESSED: -Mental health issues INTERVENTIONS: Mindfulness practice implemented and processed. Provided psychoeducation on the FAST skill to improve effectiveness in relationships. Explored invalidation as a barrier to maintaining self-respect and group members identified ways to manage experiences of invalidation. RESPONSE: Appears attentive, engaged and participative. Pt was an active participant throughout the psychoeducational dialogue on FAST, sharing thoughts and personal experiences frequently. He identified that taking off his name badge from work is a way that he takes off the people pleasing hat that his work requires, as a way to practice the FAST skill. Pt asked questions throughout the discussion for the purpose of clarifying understanding of skill application to their experiences. Pt left group briefly to meet with IOP nurse Mya Tena for follow-up from their meeting yesterday. Process Therapy Start Time: 11:00 am Total Time: 50 minutes # of Patients: 4 THERAPEUTIC FOCUS: Coping Skills PROBLEM(S) ADDRESSED: -Mental health issues INTERVENTIONS: Facilitated discussion regarding various group member concerns, with focus on skill application and weekend planning. Provided feedback, supportive, reflective listening and facilitated connections between group members as they explored current stressors/symptoms through the context of program information. Assessed safety prior to patients leaving for day. RESPONSE: Appears attentive, engaged and participative. Pt shared about his difficulties with adapting to and accepting change in his life, appeared receptive to guidance and feedback from therapists highlighting use of dialectical thinking, acceptance, and mindfulness to emotions. Pt reported that he met with his individual therapist yesterday and explored whether or not it will be beneficial for him to remove his sister as his emergency contact ans safety plan; Pt noted that his therapist gave him feedback to consider waiting and use the weekend to use skills to reduce emotions to ensure that he is in morgan mind when making this decision. Pt confirmed that he will not be sending therapists an updated safety plan and will not be revoking the KALLIE for his sister for his emergency contact at this time. Patient Affirms Safety. Patient reaffirmed Safety Plan and can stay safe from harm. Patient developed weekend plan, as identified below: I will care for my body by: yoga I will care for my min (more content not included)... [facility] 05-28-2023 Note HNO ID: [id number] Author: MYA TENA APRN.ENZO Service: Psychiatry Author Type: Nurse Practitioner Type: Progress Notes Filed: 05/28/2023 10:33 Note Text: BEHAVIORAL HEALTH PROGRESS NOTE SERVICE DATE: 05/28/2023 SERVICE TIME: 1025 Met with patient briefly to discuss plan from outpatient provider, to decrease Zoloft to 250mg. -To decrease chance of withdrawal symptoms, plans to decrease dose to 250mg once daily at bedtime, and then will reassess in two weeks to discuss splitting dose to 100mg in the AM and 150mg in the PM. -Denied having any questions. -Encouraged to let IOP staff know if he has any questions or concerns. SIGNATURE: Mya Tena APRN.[facility], CHIEF NURSE ANESTHETIST PATIENT NAME: Bishnu Coles DATE: May 28, 2023 TIME: 10:31 AM PAGER/CONTACT #: [facility] 05-27-2023 Note HNO ID: [id number] Author: MYA TENA APRN.[facility] Service: Psychiatry Author Type: Nurse Practitioner Type: Progress Notes Filed: 05/27/2023 11:46 Note Text: PSYC FOLLOW UP - PSYCHIATRIC PROGRESS NOTE INTENSIVE OUTPATIENT PROGRAM With the patient consent, visit was performed virtually. This virtual visit was performed using Directrom Video Visit. It required patient-provider interaction for the medical decision making as documented below. I have communicated my name and active licensure. The patient's identity and physical location were verified at the time of this visit. Either the patient or their legal insurance sales representative has been informed of the risks and benefits of -- and alternatives to -- treatment through a remote evaluation and consents to proceed with the evaluation remotely. Persons present: patient and [employer] provider. The patient or the patient's insurance sales representative consented to this virtual encounter. CC: There's a lot going on. HPI: Bishnu Coles is a 42 year old Single male with a past history of depression, bipolar disorder, PTSD, anxiety and ADHD who presents for a follow up while completing the DBT IOP program. -Stated that there is a lot going on. Noted that he has had a lot of different appointments, along with seeing his counselor once weekly and undergoing medication changes. With this, noted that it has been hard to get this processed. -Feels that he is just now starting to crack the eggshell when it comes to understanding the skills. Noted that he takes his binder with him to his individual therapy sessions and talks about the skills about how they affect life. Noted that skills that are helpful include distraction and KOMAL. Noted struggling at times with remembering the name of the skills. Stated that he is doing some of the skills subconsciously. -Mood has been up and down and noted that he has had a lot going on. Namely stated that he had to cut his sister out of his life due to his brother in law. Stated that he is removing her from the care plan and will be updating his safety plan today. Plans to put in his brother and his sister in law instead. -In regards to the stressor with sister, stated that yesterday he wanted to cry and noted that when he thinks about the situation, he gets depressed and sad again, therefore he tries not to think about it. Discussed the importance of not suppressing his emotions and he noted that he plans to discuss this more in depth with his individual therapist. -Noted that he was having strong suicidal thinking over the weekend and on Thursday night called the hospital, however noted that due not being able to get into the Clinic system, he did not pursue this further. Noted that on Thursday, he was having some active thinking but denied having any plans. Noted that he felt himself getting up to that point therefore he called to try and prevent it from getting to that point. Denies any suicidal thinking currently. -Denied any self-harm. -Reviewed medications. Stated that his Latuda was recently increased and he feels calmer with the increase. Noted that waking up in the mornings is hard for him. -Reviewed his Zoloft and noted that he has been wanting to change the way he takes the medication, to taking 100mg in the morning and 200mg in the evening. -Stated that the decrease in Seroquel caused some difficulty with falling asleep. Also noted that he was having some issues with his sleep apnea mask and noted that he just got the correct mask on Thursday and believes that sleep issues may be related to this. -Questions whether his ADHD needs to be addressed with medications. -Questions whether he will need additional IOP treatment. Discussed DBT aftercare and/or CBT IOP as potential future recommendations. Discussed re-evaluating at next scheduled appointment. Sleep: difficulty falling asleep, trouble waking up Interest: diminished Guilt: quite a bit Energy: fluctuates with mood or stress Concentration: fluctuates Appetite: fair Psychomotor Activity: psychomotor activity was WNL. Suicide: None currently; see HPI Phobias: no irrational fears Memory: Poor Anxiety: moderate Obsessions: none Compulsions: none Maricruz: Denies any symptoms of maricruz PTSD: The patient has experienced/witnessed trauma that threatened his or her integrity, response: fear/helpless. The patient responded to trauma with fear, helplessness or horror. Experiences recurrent distressing recollections of the trauma. Experiences intense psychological distress when exposed to internal or external cues that symbolize the trauma. Physiological reactivity on exposure to internal or external cues of the experienced trauma. Avoids thoughts, feelings or conversations associated with the trauma. Avoids activities, places or people that arouse recollections of the trauma. Inability to recall an important aspect of the tr (more content not included)... [facility] 05-27-2023 Note HNO ID: [id number] Author: SARAH RAE [facility] Service: Behavioral Health IOP (Intensive Outpatient Program) Author Type: Therapist Type: Progress Notes Filed: 05/27/2023 13:06 Note Text: Summary: DBT IOP *This service is provided virtually via Mobile-XL/[employer]. IOP (INTENSIVE OUTPATIENT PROGRAM) PROGRESS NOTE SERVICE DATE: 05/27/23 SERVICE TIME: 9AM-noon BEHAVIOR: Appearance: Casually dressed Attitude: Cooperative, distractible Affect: Flat Mood: Anxious Orientation: Oriented to person, place and time Thought:: [place], dichotomous Speech: Normal, interruptive at times Eye Contact: Intermittent Describe Change Noted Throughout the Day: None noted. GROUP THERAPY: Process Therapy Start Time: 9:00 am Total Time: 50 minutes # of Patients: 7 THERAPEUTIC FOCUS: Check-In PROBLEM(S) ADDRESSED: -Mental health [...] mood (0=none, 5=extreme) - depression 3, anxiety 5, anger 5, shame/guilt 3, contentment 0 cindy 0; urges (0=none, 5 = extreme) - anger outburst-3, bottle up-4; SI/SIB - none; skills - 4; medication compliance - yes; substance use - none; sleep - 3 hours Pt's check-in focused on: difficulty identifying progress that he's made toward treatment goals. Therapist validated pt's difficulty recognizing progress in the midst of heightened stressors, while encouraging him to recognize the gains that he has made. He was able to identify that physical self-care has improved through use of the PLEASE skill to focus on attending appointments, taking medications, etc. Pt also recognized use of the KOMAL skill to assert himself with others and reduce a tendency toward lashing out. He identified that he has not engaged in lashing out in public, stating that distraction/busyness has been useful in reducing this behavior. Therapist directed pt to the ACCEPTS skill to further explore distraction skills. Pt was reminded of d/c date, and denied additional treatment resources/needs at this time. Patient Affirms Safety. Patient Data IOP Daily Questionnaire IOP Daily 05/18/2023 05/26/2023 05/27/2023 Today, is your belief in your ability [...] would you rate your mood now? 4 1 5 Process Therapy Start Time: 10:00 am Total Time: 50 minutes # of Patients: 6 THERAPEUTIC FOCUS: Reality Acceptance PROBLEM(S) ADDRESSED: -Mental health issues INTERVENTIONS: Mindfulness practice implemented and processed. Discussion and education around reality acceptance. Collaboratively explored these concepts as a group with general examples and in connection to members' individualized experiences. RESPONSE: Appears attentive, engaged and participative. Pt was an active participant throughout the psychoeducational dialogue on reality acceptance, sharing thoughts and personal experiences frequently. Pt acknowledged difficulties with accepting the facts of his reality, noting that his interpretations of reality are often different than the facts. Pt reflected on experiences where accepting reality has allowed him to make changes to reality. Pt asked questions throughout the discussion for the purpose of clarifying understanding of skill application to their experiences. Pt met with program [employer]ANGE [employer]ED[employer] towards the end of the skill hour for scheduled medication management appointment. Process Therapy Start Time: 11:00 am Total Time: 50 minutes # of Patients: 7 THERAPEUTIC FOCUS: Coping Skills PROBLEM(S) ADDRESSED: -Mental health issues INTERVENTIONS: Facilitated discussion regarding various group member concerns, with focus on application of reality acceptance skills. Provided feedback, supportive, reflective listening and facilitated connections between group members as they explored current stressors/symptoms through the context of program information. Assessed safety prior to patients leaving for day. RESPONSE: Appears attentive, engaged and particip (more content not included)... [facility] 05-27-2023 Note HNO ID: [id number] Author: SARAH RAE [facility] Service: Behavioral Health IOP (Intensive Outpatient Program) Author Type: Therapist Type: Plan of Care Filed: 05/27/2023 14:01 Note Text: Summary: DBT IOP Weekly Summary WEEKLY TREATMENT TEAM PROGRESS NOTE INTENSIVE OUTPATIENT PROGRAM May 27, 2023 Safety Assessment: Suicide risk: High Risk: Pt reported SI over the weekend 2 days on diary card, rated at '1' on 1-5 scale, in the context of having a disagreement with his sister and eopxpdy-ww-ofj and making the decision to cut them out of his life. Pt's self-care goal for today 05/27/23 is to update his safety plan with a new emergency contact, since it is his sister, and send to program staff. He has a recent history of a [...] three hours per day, and is assigned [facility] daily questionnaire to assess risk. Self-Injury risk: Low Risk; Pt denies current urges or history of self injurious behavior. Pt is assessed daily, and has a safety plan to refer to as needed. Weekly update on patient progress summarized: Pt attended 2 days thus far this week, with missing IOP on Thursday due to illness and anticipated attendance tomorrow. Pt was provided with psychoeducation this week on the following: OA to guilt/shame, reality acceptance, FAST. Pt reported stressors that occurred over the weekend involving setting boundaries with his sister and ghsoovi-xx-pqq to no longer have contact with them, as Pt stated they have not been respectful towards him recently. Pt had difficulty identifying any progress made towards treatment goals during treatment plan review discussion this week, referencing the weekend and last couple of days and experiencing ongoing heightened emotions, particularly anxiety and anger. Pt is receptive to therapists naming and reflecting to him DBT skills he is using to manage emotions, urges, and stressors, however continues to struggle to identify them himself. Pt remains engaged in skills and open therapy discussions by asking clarifying questions to enhance understanding and application of skills to apply to his personal experiences. Pt met with program [employer] today for medication management appointment, no changes made to regimen, follow-up scheduled for 06/11/23. Interval Progress: Slightly worse Measurement-Based Assessment: Patient Data Generalized Anxiety Disorder [...] continue in IOP and follow Master Treatment Plan, with discharge scheduled 06/24/23. Pt is established with outpatient providers: prescriber: Michael Cordoba APRN-ENZO ([facility]) and therapist: ALVIN Perez (at [facility] in [place]). Pt has future appointment scheduled on 06/05 with manager social work ALVIN Lopez. Team members present: MAGAN Tomlinson-S Jazmin Skelton LPCC-S yMa Tena, MSN, MERCERIZING RANGE FEEDER, 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, PMP-[facility] 05-26-2023 Note HNO ID: [id number] Author: SARAH RAE LP[facility] Service: Behavioral Health IOP (Intensive Outpatient Program) Author Type: Therapist Type: Progress Notes Filed: 05/26/2023 12:34 Note Text: Summary: DBT IOP *This service is provided virtually via [employer]. IOP (INTENSIVE OUTPATIENT PROGRAM) PROGRESS NOTE SERVICE DATE: 05/26/23 SERVICE TIME: 9AM-noon BEHAVIOR: Appearance: Casually dressed Attitude: Cooperative, willing Affect: Congruent to mood, observed as tearful towards end of group when sharing Mood: Depressed and Pleasant Orientation: Oriented to person, place and time Thought:: [place], logical Speech: Normal Eye Contact: Intermittent Describe Change Noted Throughout the Day: Pt observed with poor internet connection at times throughout group. GROUP THERAPY: Process Therapy Start Time: 9:00 [...] mood (0=none, 5=extreme) - depression 3, anxiety 4, anger 3, shame/guilt 3, contentment 1 cindy 1; urges (0=none, 5 = extreme) - anger-2, bottle up-4, rumination-2; SI/SIB - none; skills - denied; medication compliance - yes; substance use - none; sleep - 4 hours Pt's check-in focused on: having a rough weekend, with not feeling well physically, and also reporting that he had to end the relationship with his sister and fluezlz-af-irz from his life, stating that his msfyvom-jx-kbt had not been respecting his boundaries. Pt appeared receptive to therapist validating his heightened emotional vulnerability with not feeling well physically. Pt was encouraged to reconsider his use of skills yesterday, to possibly include mindfulness to body sensations and PLEASE. Patient Affirms Safety. Patient Data IOP Daily Questionnaire IOP Daily 05/18/2023 05/18/2023 05/26/2023 Today, is your belief in your ability [...] you rate your mood now? 4 4 1 Process Therapy Start Time: 10:00 am Total Time: 50 minutes # of Patients: 6 THERAPEUTIC FOCUS: Opposite Action PROBLEM(S) ADDRESSED: -Mental health issues INTERVENTIONS: Mindfulness practice implemented and processed. Focused on emotions of shame and guilt, including mindfulness to each emotion through identifying common body sensations, thoughts and behaviors associated with each emotion. Then, discussed opposite action for shame and guilt through use of handouts and group discussion. Collaboratively explored these concepts as a group with general examples and in connection to members' individualized experiences. RESPONSE: Appears attentive, engaged and participative. Pt reflected on the mindful movement practice and his experiences with this. Pt was an active participant throughout the psychoeducational dialogue on opposite action, sharing thoughts and personal experiences frequently. When exploring the emotion guilt, Pt verbalized resonating with ?my tremors get really bad.? Pt further explored examples of guilt that is justified versus unjustified in his life, with awareness that many times that he feels guilt, the guilt is unjustified because he has not done something that goes against his values (i.e. having to manage a chronic health issue, set a boundary with others, etc.) When exploring the emotion shame, Pt verbalized resonating with ?feeling scared and disconnected.? Pt asked many questions throughout the discussion for the purpose of clarifying understanding of skill application to their experiences. Process Therapy Start Time: 11:00 am Total Time: 50 minutes # of Patients: 6 THERAPEUTIC FOCUS: Coping Skills PROBLEM(S) ADDRESSED: -Mental health issues INTERVENTIONS: Facilitated discussion regarding various group member concerns, with focus on opposite action to shame and mindfulness to emotions. Provided feedback, supportive, reflective listening and facilitated connections between group members as they explored current stressors/symptoms through the context of program information. (more content not included)... [facility] 05-25-2023 Note HNO ID: [id number] Author: SARAH RAE [facility] Service: Behavioral Health IOP (Intensive Outpatient Program) Author Type: Therapist Type: Progress Notes Filed: 05/25/2023 10:00 Note Text: Summary: DBT IOP Cancellation BEHAVIORAL HEALTH IOP (INTENSIVE OUTPATIENT PROGRAM) APPOINTMENT CANCELLATION COMMUNICATION DATE: 05/25/2023 Scheduled Intensive Outpatient Program appointment for Bishnu Coles was on 05/25/23 at 9:00AM. Pt sent the following email to program staff at 7:12am today: I wont be able to make it to group today. I am pretty much have been camped out in the bathroom sick. Program staff replied at 9:58am: Good morning Bishnu, Thank you for keeping us updated about your absence today, certainly take care of yourself! When you are feeling up to it, we'd encourage you to send us your diary cards from last week, and review Mindfulness to Emotions at the beginning of the Spirit module, which is the skill we reviewed today in group. We hope you feel better soon and will plan on seeing you in group tomorrow. Take care, Yoav SIGNATURE: Sarah Rae [facility]-S PATIENT NAME: Bishnu Coles DATE: May 25, 2023 TIME: 9:59 AM [facility] 05-21-2023 Note HNO ID: [id number] Author: SARAH RAE [facility] Service: Behavioral Health IOP (Intensive Outpatient Program) Author Type: Therapist Type: Progress Notes Filed: 05/21/2023 12:59 Note Text: Summary: DBT IOP virtual group *This service is provided virtually via [employer]. IOP (INTENSIVE OUTPATIENT PROGRAM) PROGRESS NOTE SERVICE [...] will care for my body by: attend [facility] (more content not included)... [facility] 05-21-2023 History of Presen t illness Narrative Summary: DBT IOP virtual group *This service is provided virtually via [employer]. IOP (INTENSIVE OUTPATIENT PROGRAM) PROGRESS NOTE SERVICE [...] and the other person appeared to become escalated throughout the discussion; Pt appeared receptive to [...] will care for my body by: attend scheduled medical appointments I will care for my mind by: write poetry I will care for my emotions by: do puzzle games I will care for my spirit by: spend time with nephews I will care for my relationships by: practice communication skills I will manage urges and vulnerabilities of ruminating by: ACCEPTS by engaging in another activity by going to the [employer] PLAN: Continue IOP and current treatment plan. Pt confirmed attendance in IOP next for Thursday05/25/23. Pt requested to meet with therapists briefly after IOP ended to discuss current progress in treatment. Pt expressed that he was unsure if the skills he has learned thus far in the program were pertinent/beneficial to his treatment goals, with the exception of today. Pt stated that he is working on the skills learned in the program each week with his individual therapist. Explored the pros & cons of continuing in virtual DBT IOP at this time versus considering in-person group therapy options, which Pt noted are limited based on where he lives. Pt expressed that he would like to continue in DBT IOP at this time and is aware of the option of discharging earlier than scheduled discharge date to pursue an alternative level of care as well. Co-facilitated between: TESSY Acuña & TESSY Tomlinson documented in this encounter [facility] 05-20-2023 Note HNO ID: [id number] Author: Sarah Rae LP[facility] Service: Behavioral Health IOP (Intensive [...] with crisis hotline/support numbers, is enrolled in [facility] four days a week for three hours per day, and is assigned [facility] daily questionnaire to assess risk. Self-Injury risk: Low Risk; Pt denies current urges or history of self injurious behavior. Pt is assessed daily, and has a safety plan to refer to as needed. Weekly update on patient progress summarized: Pt attended 2 days thus far this week, no IOP on 05/18 in observance of the holiday, with anticipated attendance tomorrow. Pt was [...] APRN-ENZO ([facility]) and therapist: ALVIN Perez (at [facility] in [place]). Pt has future appointment scheduled on 06/05 with manager social work ALVIN Lopez. Team members present: MAGAN Tomlinson-S Jazmin Skelton [facility]-S Mya Tena, GALILEO, MERC[employer]IZING RANGE FEEDER, 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, PMHNP-[facility] 05-20-2023 Note HNO ID: [id number] Author: Sarah Rae LP[facility] Service: Behavioral Health IOP (Intensive Outpatient Program) Author Type: Therapist Type: Progress Notes Filed: 05/20/2023 12:46 PM Note Text: Summary: DBT IOP virtual group *This service is provided virtually via [employer]. IOP (INTENSIVE OUTPATIENT PROGRAM) PROGRESS NOTE SERVICE [...] he is going to continue working at [employer] and no longer work at [employer], as this would make the greatest impact [...] to their experiences, with appearing open to websphere commerce architect offering concrete examples to aid in understanding of sk (more content not included)... [facility] 05-20-2023 History of Presen t illness Narrative Summary: DBT IOP virtual group *This service is provided virtually via [employer]. IOP (INTENSIVE OUTPATIENT PROGRAM) PROGRESS NOTE SERVICE [...] use - denied; sleep - 5 hours. Pt s check-in centered on experiencing increased irritability yesterday, which influenced urges to bottle up his emotions; Pt stated that he used the pros & cons skill to explore work-related decisions he is considering making regarding his future schedules with his 2 current jobs. Pt acknowledged that his work schedule is currently overwhelming for him and is impacting his sleep, noting that he did not get to sleep until 3am. Pt reported that he thinks he is going to continue working at [employer] and no longer work at [employer], as this would make the greatest impact [...] to their experiences, with appearing open to websphere commerce architect offering concrete examples to aid in understanding of skill application. Process Therapy Start Time: 11:00 am Total Time: 50 minutes # of Patients: 4 THERAPEUTIC FOCUS: Coping Skills PROBLEM(S) ADDRESSED: -Mental health issues INTERVENTIONS: Facilitated discussion regarding various group member concerns, with focus on application of half smile and willing hands. Provided feedback, supportive, reflective listening and facilitated connections between group members as they explored current stressors/symptoms through the context of program information. Assessed safety prior to patients leaving for day. RESPONSE: Appears attentive, engaged and participative. Pt continued exploring willingness and turn the mind by asking questions and relating these questions to personal examples throughout his life. Pt acknowledged how he has accepted and managed the impact of epilepsy on his daily functioning as being examples of using willingness and turn the mind. Pt's self-care goal is: playing a game on his tablet. Patient Affirms Safety. Patient reaffirmed Safety Plan and can stay safe from harm. PLAN: Continue IOP and current treatment plan. Pt confirmed attendance in IOP tomorrow 05/21/23. Co-facilitated between: TESSY Acuña & TESSY Tomlinson documented in this encounter [facility] 05-20-2023 Miscellaneous Notes Summary: DBT [facility] Weekly Summary Images from the original note were not included. WEEKLY TREATMENT TEAM PROGRESS NOTE INTENSIVE OUTPATIENT [...] FAST, accumulating positive emotions and experiences, pros & cons, and mindfulness to emotions. Pt is [...] APRN-ENZO ([facility]) and therapist: ALVIN Perez (at [facility] in [place]). Pt has future appointment scheduled on 06/05 with manager social work ALVIN Lopez. Team members present: Sarah Rae, [facility] Jazmin Skelton, [facility] Mya Tena, GALILEO, AMEENA, 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, PMHNP-BC documented in this encounter [facility] 05-19-2023 Note HNO ID: [id number] Author: Sarah Rae LP[facility] Service: Behavioral Health IOP (Intensive Outpatient Program) Author Type: Therapist Type: Progress Notes Filed: 05/19/2023 12:43 PM Note Text: Summary: DBT IOP virtual group *This service is provided virtually via [employer]. IOP (INTENSIVE OUTPATIENT PROGRAM) PROGRESS NOTE SERVICE [...] a calmer state. Pt appeared open to websphere commerce architect pointing out his use of accumulating positive emotions and experiences, mindfulness to emotions and wisemind. Pt denied acting on urges yesterday, sharing that he was busy working all weekend, which prevented him from engaging in urges. Pt inquired about resources for seeking power of admitted attorneys, and pt was directed to consider seeking out resources through his county's real estate legal assistant, through his counselor's office and/or to address at an upcoming manager social work appt in a few weeks. Patient Affirms [...] of skill appl (more content not included)... [facility] 05-19-2023 History of Presen t illness Narrative Summary: DBT IOP virtual group *This service is provided virtually via [employer]. IOP (INTENSIVE OUTPATIENT PROGRAM) PROGRESS NOTE SERVICE [...] a calmer state. Pt appeared open to websphere commerce architect pointing out his use of accumulating positive emotions and experiences, mindfulness to emotions and wisemind. Pt denied acting on urges yesterday, sharing that he was busy working all weekend, which prevented him from engaging in urges. Pt inquired about resources for seeking power of admitted attorneys, and pt was directed to consider seeking out resources through his county's real estate legal assistant, through his counselor's office and/or to address at an upcoming manager social work appt in a few weeks. Patient Affirms [...] used mindfulness to emotions, problem-solving, and pros & cons skills over the weekend, as tracked [...] 5 THERAPEUTIC FOCUS: Opposite action to sadness & anger PROBLEM(S) ADDRESSED: -Mental health issues INTERVENTIONS: [...] In exploring the emotion sadness, Pt verbalized I close off , and related to other group members throughout the discussion. Pt acknowledged that unexpected disruptions to his routine can often prompt feeling angry. In exploring the emotion anger, Pt shared resonating with I start sweating more. Pt asked questions throughout the discussion for the purpose of clarifying understanding of skill application to their experiences. Process Therapy Start Time: 11:00 am Total Time: 50 minutes # of Patients: 5 THERAPEUTIC FOCUS: Coping Skills PROBLEM(S) ADDRESSED: -Mental health issues INTERVENTIONS: Facilitated discussion regarding various group member concerns, with focus on skill application. Provided feedback, supportive, reflective listening and facilitated connections between group members as they explored current stressors/symptoms through the context of program information. Assessed safety prior to patients leaving for day. RESPONSE: Appears attentive, engaged and participative. Pt briefly related to other group members throughout the discussion regarding effective ways to navigate interactions with ex-partners, and asked questions about this. Pt's self-care goal is: organizing his garage. Patient Affirms Safety. Patient reaffirmed Safety Plan and can stay safe from harm. PLAN: Continue IOP and current treatment plan. Pt confirmed attendance in IOP tomorrow 05/20/23. Co-facilitated between: Sarah Rae [facility] & Jazmin Skelton [facility] documented in this encounter [facility] 05-14-2023 Note HNO ID: [id number] Author: Sarah Rae LP[facility] Service: Behavioral Health IOP (Intensive Outpatient Program) Author Type: Therapist Type: Progress Notes Filed: 05/14/2023 1:37 PM Note Text: Summary: DBT IOP virtual group *This service is provided virtually via [employer]. IOP (INTENSIVE OUTPATIENT PROGRAM) PROGRESS NOTE SERVICE DATE: 05/14/23 SERVICE TIME: 9AM-noon BEHAVIOR: Appearance: Casually dressed Attitude: Cooperative, distractible at times Affect: Restricted/blunted Mood: Depressed and Anxious Orientation: Oriented to person, place and time Thought:: [place] Speech: Normal, with frequent sharing in the [...] in this area of his life, with websphere commerce architect highlighting that pt appears to value his [...] Assessed safety prior (more content not included)... [facility] 05-14-2023 History of Presen t illness Narrative Summary: DBT IOP virtual group *This service is provided virtually via [employer]. IOP (INTENSIVE OUTPATIENT PROGRAM) PROGRESS NOTE SERVICE DATE: 05/14/23 SERVICE TIME: 9AM-noon BEHAVIOR: Appearance: Casually dressed Attitude: Cooperative, distractible at times Affect: Restricted/blunted Mood: Depressed and Anxious Orientation: Oriented to person, place and time Thought:: [place] Speech: Normal, with frequent sharing in the [...] use - denied; sleep - 3 hours. Pt s check-in centered on experiencing high shame/guilt yesterday, [...] in this area of his life, with websphere commerce architect highlighting that pt appears to value his [...] day. RESPONSE: Appears attentive, engaged and participative. Patient Affirms Safety. Patient reaffirmed Safety Plan and can stay safe from harm. Patient developed weekend plan, as identified below: I will care for my body by: use [employer] machine I will care for my mind by: read new book I will care for my emotions by: work on therapy exercises I will care for my spirit by: clean house I will care for my relationships by: spend time with nephew I will manage urges and vulnerabilities of bottling emotions by: distraction PLAN: Continue IOP and current treatment plan. Pt confirmed attendance in IOP for Thursday05/19/23, closed Thursday05/18/23 for holiday. Co-facilitated between: MAGAN Acuña-S & TESSY Tomlinson documented in this encounter [facility] 05-13-2023 Note HNO ID: [id number] Author: Jazmin Skelton LPCC Service: Behavioral Health [...] with crisis hotline/support numbers, is enrolled in [facility] four days a week for three hours per day, and is assigned [facility] daily questionnaire to assess risk. Self-Injury risk: [...] APRN-ENZO ([facility]) and therapist: ALVIN Perez (at [facility] in [place]). Team members present: Sarah Rae [facility] Jazmin Skelton [facility] Mya Tena, GALILEO, MERCERIZING RANGE FEEDER, 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, PMHNP- Josi Queen PA-C [facility] 05-13-2023 Note HNO ID: [id number] Author: Jazmin Skelton LPCC Service: Behavioral Health IOP (Intensive Outpatient Program) Author Type: Counselor Type: Progress Notes Filed: 05/13/2023 1:20 PM Note Text: Summary: DBT IOP *This service is provided virtually via [employer]. IOP (INTENSIVE OUTPATIENT PROGRAM) PROGRESS NOTE SERVICE DATE: 05/13/23 SERVICE TIME: 9AM-noon BEHAVIOR: Appearance: Well Groomed Attitude: Cooperative Affect: Appropriate and Anxious/tense Mood: Anxious and Pleasant Orientation: Oriented to person, place and time Thought:: [place] Speech: Normal Eye Contact: Good Describe Change [...] in IOP tomorrow. Co-facilitated between: Jazmin Skelton [facility] AND Sarah Rae [facility] 05-13-2023 Note [facility] ID: [id number] Author: Jazmin Skelton [facility] Service: Behavioral Health IOP (Intensive Outpatient [...] in (Functional Impact): Difficulties with daily functioning.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 AUTHOR AUTHOR'S ORGANIZ ATION 05/30/2023 [facility] DATE CREATED AUTHOR AUTHOR'S ORGANIZ ATION 06/09/2023 [facility] DATE CREATED AUTHOR AUTHOR'S ORGANIZ ATION 06/21/2023 [facility] DATE CREATED AUTHOR AUTHOR'S ORGANIZ ATION 06/25/2023 [facility] DATE CREATED AUTHOR AUTHOR'S ORGANIZ ATION 06/27/2023 [facility] DATE CREATED AUTHOR AUTHOR'S ORGANIZ ATION 07/05/2023 [facility] Source Comments (unrecognize d section and content) In the event this informatio n is protected by the Federal Confidentiality of Alcohol and Drug Abuse Patient Records regulations: The Federal rules restrict any use of the information to criminally investigate or prosecute any alcohol or drug abuse patient.[facility] the event this information is protected by the Federal Confidentiality of Alcohol and Drug Abuse Patient Records regulations: The Federal rules restrict any use of the information to criminally investigate or prosecute any alcohol or drug abuse patient.[facility] HospitalIn the event this information is protected by the Federal Confidentiality of Alcohol and Drug Abuse Patient Records regulations: The Federal rules restrict any use of the information to criminally investigate or prosecute any alcohol or drug abuse patient.[facility] HospitalIn the event this information is protected by the Federal Confidentiality of Alcohol and Drug Abuse Patient Records regulations: The Federal rules restrict any use of the information to criminally investigate or prosecute any alcohol or drug abuse patient.[facility] HospitalIn the event this information is protected by the Federal Confidentiality of Alcohol and Drug Abuse Patient Records regulations: The Federal rules restrict any use of the information to criminally investigate or prosecute any alcohol or drug abuse patient.[facility] HospitalIn the event this information is protected by the Federal Confidentiality of Alcohol and Drug Abuse Patient Records regulations: The Federal rules restrict any use of the information to criminally investigate or prosecute any alcohol or drug abuse patient.[facility] HospitalIn the event this information is protected by the Federal Confidentiality of Alcohol and Drug Abuse Patient Records regulations: The Federal rules restrict any use of the information to criminally investigate or prosecute any alcohol or drug abuse patient.[facility] HospitalIn the event this information is protected by the Federal Confidentiality of Alcohol and Drug Abuse Patient Records regulations: The Federal rules restrict any use of the information to criminally investigate or prosecute any alcohol or drug abuse patient.[facility] HospitalIn the event this information is protected by the Federal Confidentiality of Alcohol and Drug Abuse Patient Records regulations: The Federal rules restrict any use of the information to criminally investigate or prosecute any alcohol or drug abuse patient.[facility] HospitalIn the event this information is protected by the Federal Confidentiality of Alcohol and Drug Abuse Patient Records regulations: The Federal rules restrict any use of the information to criminally investigate or prosecute any alcohol or drug abuse patient.[facility] HospitalIn the event this information is protected by the Federal Confidentiality of Alcohol and Drug Abuse Patient Records regulations: The Federal rules restrict any use of the information to criminally investigate or prosecute any alcohol or drug abuse patient.[facility] HospitalIn the event this information is protected by the Federal Confidentiality of Alcohol and Drug Abuse Patient Records regulations: The Federal rules restrict any use of the information to criminally investigate or prosecute any alcohol or drug abuse patient.[facility] HospitalIn the event this information is protected by the Federal Confidentiality of Alcohol and Drug Abuse Patient Records regulations: The Federal rules restrict any use of the information to criminally investigate or prosecute any alcohol or drug abuse patient.[facility] HospitalIn the event this information is protected by the Federal Confidentiality of Alcohol and Drug Abuse Patient Records regulations: The Federal rules restrict any use of the information to criminally investigate or prosecute any alcohol or drug abuse patient.[facility] HospitalIn the event this information is protected by the Federal Confidentiality of Alcohol and Drug Abuse Patient Records regulations: The Federal rules restrict any use of the information to criminally investigate or prosecute any alcohol or drug abuse patient.[facility] HospitalIn the event this information is protected by the Federal Confidentiality of Alcohol and Drug Abuse Patient Records regulations: The Federal rules restrict any use of the information to criminally investigate or prosecute any alcohol or drug abuse patient.[facility] HospitalIn the event this information is protected by the Federal Confidentiality of Alcohol and Drug Abuse Patient Records regulations: The Federal rules restrict any use of the information to criminally investigate or prosecute any alcohol or drug abuse patient.[facility] HospitalIn the event this information is protected by the Federal Confidentiality of Alcohol and Drug Abuse Patient Records regulations: The Federal rules restrict any use of the information to criminally investigate or prosecute any alcohol or drug abuse patient.[facility] HospitalIn the event this information is protected by the Federal Confidentiality of Alcohol and Drug Abuse Patient Records regulations: The Federal rules restrict any use of the information to criminally investigate or prosecute any alcohol or drug abuse patient.[facility] HospitalIn the event this information is protected by the Federal Confidentiality of Alcohol and Drug Abuse Patient Records regulations: The Federal rules restrict any use of the information to criminally investigate or prosecute any alcohol or drug abuse patient.[facility] HospitalIn the event this information is protected by the Federal Confidentiality of Alcohol and Drug Abuse Patient Records regulations: The Federal rules restrict any use of the information to criminally investigate or prosecute any alcohol or drug abuse patient.[facility] HospitalIn the event this information is protected by the Federal Confidentiality of Alcohol and Drug Abuse Patient Records regulations: The Federal rules restrict any use of the information to criminally investigate or prosecute any alcohol or drug abuse patient.[facility] HospitalIn the event this information is protected by the Federal Confidentiality of Alcohol and Drug Abuse Patient Records regulations: The Federal rules restrict any use of the information to criminally investigate or prosecute any alcohol or drug abuse patient.[facility] HospitalIn the event this information is protected by the Federal Confidentiality of Alcohol and Drug Abuse Patient Records regulations: The Federal rules restrict any use of the information to criminally investigate or prosecute any alcohol or drug abuse patient.[facility] HospitalIn the event this information is protected by the Federal Confidentiality of Alcohol and Drug Abuse Patient Records regulations: The Federal rules restrict any use of the information to criminally investigate or prosecute any alcohol or drug abuse patient.[facility] HospitalIn the event this information is protected by the Federal Confidentiality of Alcohol and Drug Abuse Patient Records regulations: The Federal rules restrict any use of the information to criminally investigate or prosecute any alcohol or drug abuse patient.[facility] HospitalIn the event this information is protected by the Federal Confidentiality of Alcohol and Drug Abuse Patient Records regulations: The Federal rules restrict any use of the information to criminally investigate or prosecute any alcohol or drug abuse patient.[facility] HospitalIn the event this information is protected by the Federal Confidentiality of Alcohol and Drug Abuse Patient Records regulations: The Federal rules restrict any use of the information to criminally investigate or prosecute any alcohol or drug abuse patient.[facility] HospitalIn the event this information is protected by the Federal Confidentiality of Alcohol and Drug Abuse Patient Records regulations: The Federal rules restrict any use of the information to criminally investigate or prosecute any alcohol or drug abuse patient.[facility] HospitalIn the event this information is protected by the Federal Confidentiality of Alcohol and Drug Abuse Patient Records regulations: The Federal rules restrict any use of the information to criminally investigate or prosecute any alcohol or drug abuse patient.[facility] HospitalIn the event this information is protected by the Federal Confidentiality of Alcohol and Drug Abuse Patient Records regulations: The Federal rules restrict any use of the information to criminally investigate or prosecute any alcohol or drug abuse patient.[facility] HospitalIn the event this information is protected by the Federal Confidentiality of Alcohol and Drug Abuse Patient Records regulations: The Federal rules restrict any use of the information to criminally investigate or prosecute any alcohol or drug abuse patient.[facility] HospitalIn the event this information is protected by the Federal Confidentiality of Alcohol and Drug Abuse Patient Records regulations: The Federal rules restrict any use of the information to criminally investigate or prosecute any alcohol or drug abuse patient.[facility] HospitalIn the event this information is protected by the Federal Confidentiality of Alcohol and Drug Abuse Patient Records regulations: The Federal rules restrict any use of the information to criminally investigate or prosecute any alcohol or drug abuse patient.[facility] HospitalIn the event this information is protected by the Federal Confidentiality of Alcohol and Drug Abuse Patient Records regulations: The Federal rules restrict any use of the information to criminally investigate or prosecute any alcohol or drug abuse patient.[facility] HospitalIn the event this information is protected by the Federal Confidentiality of Alcohol and Drug Abuse Patient Records regulations: The Federal rules restrict any use of the information to criminally investigate or prosecute any alcohol or drug abuse patient.[facility] HospitalIn the event this information is protected by the Federal Confidentiality of Alcohol and Drug Abuse Patient Records regulations: The Federal rules restrict any use of the information to criminally investigate or prosecute any alcohol or drug abuse patient.[facility] HospitalIn the event this information is protected by the Federal Confidentiality of Alcohol and Drug Abuse Patient Records regulations: The Federal rules restrict any use of the information to criminally investigate or prosecute any alcohol or drug abuse patient.[facility] Reason for Visit (unrecogniz ed section [...] NECK SOFT TISSUE Neur Epilepsy Main [address] [id number] Xr Imaging Referral ID Status Reason Start Date Expiration Date V isits Requested Visits Authorized [id number] Closed Auto-Generate d Referral 01/06/2022 02/05/2023 1 [...] Refill Request 03/26/2023 Reason Comments Patient Update Specialty Diagnoses / Procedures Referred By Contac Referred To Contact ADULT PSYCHIATRY Diagnoses H&P Procedures VIDEO PSYC/PSYL EST Michael Cordoba, [employer]ING [employer]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 [address] [place] [address] Josi Queen PA-C [address] [place] [address] Referral ID Status Reason Start Date Expiration Date V isits Requested Visits Authorized [id number] Authorized 05/12/2023 05/17/2024 99 99 Specialty Diagnoses / Procedures Referred By Contac t Referred To Contact ADULT PSYCHIATRY Diagnoses NEW DBT IOP Procedures VIDEO PSYC/PSYL GRP (ZOOM) Mya Tena, MERC[employer]IZING R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 [address] [place] [address] [facility] [address] [place] [address] Referral ID Status Reason Start Date Expiration Date V isits Requested Visits Authorized [id number] Authorized 05/13/2023 05/17/2024 99 99 Care Teams (unrecognized sec tion and content) Electronics Processor Relationship Specialty Start Date End Date Erlinda Nunez MD PCP - General Family Practice 01/02/11 Electronics Processor Relationship Specialty Start Date End Date Erlinda Nunez MD PCP - General Family Practice 01/02/11 Electronics Processor Relationship Specialty Start Date End Date Erlinda Nunez MD PCP - General Family Practice 01/02/11 Electronics Processor Relationship Specialty Start Date End Date Erlinda Nunez MD PCP - General Family Practice 01/02/11 Electronics Processor Relationship Specialty Start Date End Date Erlinda Nunez MD PCP - General Family Practice 01/02/11 Electronics Processor Relationship Specialty Start Date End Date Erlinda Nunez MD PCP - General Family Practice 01/02/11 Electronics Processor Relationship Specialty Start Date End Date Erlinda Nunez MD PCP - General Family Practice 01/02/11 Electronics Processor Relationship Specialty Start Date End Date Erlinda Nunez MD PCP - General Family Practice 01/02/11 Electronics Processor Relationship Specialty Start Date End Date Erlinda Nunez MD PCP - General Family Practice 01/02/11 Electronics Processor Relationship Specialty Start Date End Date Erlinda Nunez MD PCP - General Family Medicine 01/02/11 Electronics Processor Relationship Specialty Start Date End Date Erlinda Nunez MD PCP - General Family Medicine 01/02/11 Electronics Processor Relationship Specialty Start Date End Date Erlinda Nunez MD PCP - General Family Medicine 01/02/11 Electronics Processor Relationship Specialty Start Date End Date Erlinda Nunez MD PCP - General Family Medicine 01/02/11 Electronics Processor Relationship Specialty Start Date End Date Erlinda Nunez MD PCP - General Family Medicine 01/02/11 Electronics Processor Relationship Specialty Start Date End Date Erlinda Nunez MD PCP - General Family Medicine 01/02/11 Electronics Processor Relationship Specialty Start Date End Date Erlinda Nunez MD PCP - General Family Medicine 01/02/11 Team Status: Active Member Role Status Navjot Nunez MD Primary Care Provider Active Team Status: Inactive Member Role Status Navjot Nunez MD Primary Care Provider Active Davis Mir DO Emergency Provider Active Electronics Processor Relationship Specialty Start Date End Date Erlinda Nunez MD PCP - General Family Medicine 01/02/11 Electronics Processor Relationship Specialty Start Date End Date Erlinda Nunez MD PCP - General Family Medicine 01/02/11 Electronics Processor Relationship Specialty Start Date End Date Erlinda Nunez MD PCP - General Family Medicine 01/02/11 Electronics Processor Relationship Specialty Start Date End Date Erlinda Nunez MD PCP - General Family Medicine 01/02/11 Electronics Processor Relationship Specialty Start Date End Date Erlinda Nunez MD PCP - General Family Medicine 01/02/11 Electronics Processor Relationship Specialty Start Date End Date Erlinda Nunez MD PCP - General Family Medicine 01/02/11 Electronics Processor Relationship Specialty Start Date End Date Erlinda Nunez MD PCP - General Family Medicine 01/02/11 Electronics Processor Relationship Specialty Start Date End Date Erlinda Nunez MD PCP - General Family Medicine 01/02/11 Electronics Processor Relationship Specialty Start Date End Date Erlinda Nunez MD PCP - General Family Medicine 01/02/11 Electronics Processor Relationship Specialty Start Date End Date Erlinda Nunez MD PCP - General Family Medicine 01/02/11 Electronics Processor Relationship Specialty Start Date End Date Erlinda Nunez MD PCP - General Family Medicine 01/02/11 Electronics Processor Relationship Specialty Start Date End Date Erlinda Nunez MD PCP - General Family Medicine 01/02/11 Electronics Processor Relationship Specialty Start Date End Date Erlinda Nunez MD PCP - General Family Medicine 01/02/11 Electronics Processor Relationship Specialty Start Date End Date Erlinda [...] BE BASED ON THE PRIMARY CLINICAL RECORDS. [facility]. provides no warranty or guarantee of the accuracy or completeness of information in this document.
[2023-07-11 00:20] VITALS: PULSE 90
--- NOTE | 2023-07-11 00:21 | ECG_ITS ---
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
--- NOTE | 2023-07-11 00:23 | ED_ITS ---
HPI - General Adult General Chief complaint: Fall Stated complaint: fall Time Seen by Provider: 07/11/23 00:01 Source: patient Mode of arrival: walk-in Limitations: no limitations History of Present Illness HPI narrative: Patient has been experiencing numbness and tingling across his chest - episodes that last only a second or two . He said that he has been confused and that he has been falling. He said that he fell tonight and injured the left knee and his low back about 30 minutes prior to arrival. He has been seeing orthopedist at [facility] for his left knee, which apparently has only 20% cartilage left . He has epilepsy but his auras are nothing like these recent symptoms. He is wondering, however, if the episodes of numbness/tingling might be a different form of pre-seizure aura. He does have history of anxiety. he admits to increased stress. Related Data Home Medications Medication Instructions Recorded Confirmed Phenergan 25 mg PO TID PRN nausea and 12/04/22 05/22/23 vomiting clonazepam 2 mg tablet 2 mg PO TID 12/05/22 07/11/23 cyproheptadine 4 mg tablet 4 mg PO Q12H 12/05/22 07/11/23 lacosamide 100 mg tablet 100 mg PO Q12H 12/05/22 07/11/23 quetiapine 50 mg tablet 50 mg PO TID PRN anxiety 12/05/22 07/11/23 rizatriptan 10 mg disintegrating See Rx Instructions PO .COMPLEX 12/05/22 07/11/23 tablet (Maxalt-DATA COLLECTION INTERVIEWER) sertraline 100 mg tablet 200 mg PO Q24H 12/05/22 07/11/23 simvastatin 20 mg tablet 20 mg PO DAILY 12/05/22 07/11/23 albuterol sulfate 90 mcg/actuation 1 inh inhalation Q4H PRN shortness 01/19/23 07/11/23 aerosol inhaler of breath or wheezing fluticasone propionate 50 1 spray intranasal .QD 01/19/23 07/11/23 mcg/actuation nasal spray,suspension diclofenac sodium 75 mg 75 mg PO Q12H PRN pain 03/29/23 07/11/23 tablet,delayed release erenumab-aooe 140 mg/mL 140 mg subcut .MONTHLY 03/29/23 07/11/23 subcutaneous auto-injector (Aimovig Autoinjector) quetiapine 300 mg tablet 300 mg PO .QHS 03/29/23 07/11/23 lurasidone 40 mg tablet 80 mg PO DAILY 05/22/23 07/11/23 Previous Rx's Medication Instructions Recorded acetaminophen 300 mg-codeine 30 mg 1 tab PO Q6H PRN pain 3 days #14 05/22/23 tablet tabs Allergies Allergy/AdvReac Type Severity Reaction Status Date / Time desvenlafaxine [From Pristiq] Allergy Unknown Verified 03/29/23 04:57 keppra Allergy Unknown Uncoded 03/29/23 04:57 [facility] Medical History (Updated 07/11/23 @ 01:21 by Bandar Mancuso) PTSD (post-traumatic stress disorder) ?F43.10 - Post-traumatic stress disorder, unspecified (ICD-10) Migraine ?G43.909 - Migraine, unspecified, not intractable, without status migrainosus (ICD-10) HIMA (obstructive sleep apnea) ?G47.33 - Obstructive sleep apnea (adult) (pediatric) (ICD-10) Insomnia ?G47.00 - Insomnia, unspecified (ICD-10) GERD (gastroesophageal reflux disease) ?K21.9 - Gastro-esophageal reflux disease without esophagitis (ICD-10) Suicidal ideation ?R45.851 - Suicidal ideations (ICD-10) Bipolar 1 disorder ?F31.9 - Bipolar disorder, unspecified (ICD-10) Anxiety ?F41.9 - Anxiety disorder, unspecified (ICD-10) Respiratory failure requiring intubation ?J96.90 - Respiratory failure, unspecified, unspecified whether with hypoxia or hypercapnia (ICD-10) Depression ?F32.A - Depression, unspecified (ICD-10) Epilepsy ?G40.909 - Epilepsy, unspecified, not intractable, without status epilepticus (ICD-10) Surgical History (Updated 01/19/23 @ 23:52 by Karli Aguirre) 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 ?Z96.89 - Presence of other specified functional implants (ICD-10) Social History Smoking status: Never smoker Exam Narrative Exam Narrative: Nurses note and vital signs reviewed and patient is not hypoxic. Afebrile General: The patient appears well and in no apparent distress. Patient is resting comfortably on cart. GCS = 15. Skin: Warm, dry, no pallor noted. Head: Normocephalic, atraumatic Neck: Supple, trachea mid-line, no tenderness, no lymphadenopathy. Full ROM and no cervical spinal tenderness. The patient has no step-offs or crepitus noted Eyes: PERRLA, EOMI ENT: no oral or intraoral injury or injury to the nose or face Cardiovascular: Regular Rate and Rhythm Respiratory: Patient is in no distress, no accessory muscle use, lungs are clear to auscultation, no wheezing, rales or rhonchi Chest Wall: no tenderness, no flail chest, contusion, abrasion, or signs of trauma. Back: No midline thoracic or lumbar tenderness to palpation. Bilateral paralumbar soft tissue tenderness noted. Negative straight leg raise bilaterally. Musculoskeletal: Left knee tenderness with pain on patellar manipulation. no additional sign of long bone fracture. Pulses at femoral, DP, PT, and popiteal were 2+ bilaterally. Moves all four extremities in all modalities with 5/5 strength. GI: Normal bowel sounds, no tenderness to palpation, no masses appreciated. No rebound, guarding, or rigidity noted. Neurological: A&O x4, normal equal executive asst strength, normal finger to nose, normal speech, normal coordination, normal motor, normal sensory. Psychiatric: Cooperative Constitutional Vital Signs, click to edit/add: Last Vital Signs Temp 97.7 F 07/11/23 00:03 Pulse 86 07/11/23 00:03 Resp 18 07/11/23 00:03 BP 147/85 H 07/11/23 00:03 Pulse Ox 100 07/11/23 00:03 O2 Del Method Room Air 07/11/23 00:03 Course Vital Signs Vital signs: Vital Signs Temperature 97.7 F 07/11/23 00:03 Pulse Rate 86 07/11/23 00:03 Respiratory Rate 18 07/11/23 00:03 Blood Pressure 147/85 H 07/11/23 00:03 Pulse Oximetry 100 07/11/23 00:03 Oxygen Delivery Method Room Air 07/11/23 00:03 Temperature 97.7 F 07/11/23 00:03 Pulse Rate 86 07/11/23 00:03 Respiratory Rate 18 07/11/23 00:03 Blood Pressure 147/85 H 07/11/23 00:03 Pulse Oximetry 100 07/11/23 00:03 Oxygen Delivery Method Room Air 07/11/23 00:03 Medical Decision Making MDM Narrative Medical decision making narrative: Patient was placed on cafeteria monitor and EKG obtained. Blood drawn and sent for evaluation. Xrays left knee obtained. Workup was negative/unremarkable. EKG without worrisome findings. No acute fracture on knee xrays. CBC normal. CMP and d dimer negative. Patient given reassurance. Lab Data Lab results reviewed: Yes I reviewed the patient's lab results Labs: Lab Results 07/11/23 Range/Units 00:30 WBC 9.2 (4.0-11.0) 10^3/uL RBC 5.31 (4.70-6.10) 10^6/uL Hgb 15.4 (14.0-18.0) g/dL Hct 46.1 (42.0-54.0) % MCV 86.8 (80.0-94.0) fL MCH 29.0 (25.9-34.0) pg MCHC 33.4 (29.9-35.2) g/dL RDW 12.3 (11.0-15.0) % Plt Count 300 (150-450) 10^3/uL MPV 8.7 L (9.5-13.5) fL Neut % (Auto) 62.0 (43.0-75.0) % Lymph % (Auto) 25.9 (20.5-60.0) % Catron % (Auto) 8.8 (1.7-12.0) % Eos % (Auto) 2.1 (0.9-7.0) % Baso % (Auto) 0.9 (0.2-2.0) % Neut # (Auto) 5.7 (1.4-6.5) 10^3/uL Lymph # (Auto) 2.4 (1.2-3.8) 10^3/uL Catron # (Auto) 0.8 (0.3-0.8) 10^3/uL Eos # (Auto) 0.2 (0.0-0.7) 10^3/uL Baso # (Auto) 0.1 (0.0-0.1) 10^3/uL Abs Immat Gran (auto) 0.03 (0.00-0.03) 10^3/uL Imm/Tot Granulo (auto) 0.3 (0.0-0.5) % D-Dimer <0.19 (<=0.59) mg/L FEU Sodium 144 (136-145) mmol/L Potassium 4.2 (3.5-5.1) mmol/L Chloride 105 (98-107) mmol/L Carbon Dioxide 32.6 H (21.0-32.0) mmol/L Anion Gap 10.6 BUN 13.0 (7.0-18.0) mg/dL Creatinine 0.72 (0.70-1.30) mg/dL Est GFR ( Amer) >60 (>=60) Est GFR (Non-Af Amer) >60 (>=60) BUN/Creatinine Ratio 18.1 Glucose 98 (74-106) mg/dL Calcium 9.3 (8.5-10.1) mg/dL Total Bilirubin 0.4 (0.2-1.0) mg/dL AST 14 L (15-37) U/L ALT 32 (16-63) U/L Alkaline Phosphatase 61 (46-116) U/L Troponin I High Sens 6.6 (4.0-76.1) pg/mL Total Protein 7.3 (6.4-8.2) g/dL Albumin 3.7 (3.4-5.0) g/dL Globulin 3.6 g/dL Albumin/Globulin Ratio 1.0 Imaging Data xr knee: My impression: NAD ECG Data Attestation: I personally reviewed and interpreted this ECG as follows: Interpretation: EKG interpretation: Emergency Department physician interpretation. Normal s inus rhythm at 87bpm. Right axis, normal intervals. no ST segment elevation or depression. Discharge Plan Discharge Chief Complaint: Fall Clinical Impression: Paresthesia, Anxiety, Contusion of knee, left Patient Disposition: Home, Self-Care Time of Disposition Decision: 01:20 Prescriptions / Home Meds: No Action Phenergan 25 mg tablet 25 mg PO TID PRN (Reason: nausea and vomiting) Rx Instructions: TID for nausea rizatriptan [Maxalt-DATA COLLECTION INTERVIEWER] 10 mg tablet,disintegrating See Rx Instructions .ROUTE .COMPLEX Rx Instructions: take 1 tab at onset of headache; if no relief may repeat 1 tab after at least 2 hrs; max = 3 tabs/24 hr quetiapine 50 mg tablet 50 mg PO TID PRN (Reason: anxiety) lacosamide 100 mg tablet 100 mg PO Q12H clonazepam 2 mg tablet 2 mg PO TID cyproheptadine 4 mg tablet 4 mg PO Q12H sertraline 100 mg tablet 200 mg PO Q24H simvastatin 20 mg tablet 20 mg PO DAILY Rx Instructions: HS lurasidone 40 mg tablet 80 mg PO DAILY acetaminophen-codeine 300-30 mg tablet 1 tab PO Q6H PRN (Reason: pain) 3 Days Qty: 14 0RF albuterol sulfate 90 mcg/actuation HFA aerosol inhaler 1 inh INHALATION Q4H PRN (Reason: shortness of breath or wheezing) fluticasone propionate 50 mcg/actuation spray,suspension 1 spray INTRANASAL .QD quetiapine 300 mg tablet 300 mg PO .QHS diclofenac sodium 75 mg tablet,delayed release (DR/EC) 75 mg PO Q12H PRN (Reason: pain) Rx Instructions: 03/09/23 FOR 30 DAYS Aimovig Autoinjector 140 mg/mL auto-injector 140 mg SUBCUT .MONTHLY Rx Instructions: 140 MG ONCE A MONTH 03/05/23 Instructions: Paresthesia (ED), Knee Pain (ED), Anxiety (ED) Stand Alone Forms: Portal Instructions Referrals: Uriel Clements MD [Primary Care Provider] - 1 week
--- NOTE | 2023-07-11 00:35 | XR_ITS ---
The [address] [address] Patient Name: AMEYA MEZA MRN: [id number] date: 1980 Sex: M Assigned Patient Location: ER Current Patient Location: Accession/Order Number: [id number] Exam Date: 07/11/2023 01:04 Report Date: 07/11/2023 02:58 At the request of: VICTOR M MOON Procedure: XR knee LT 4V EXAM: XR knee LT 4V HISTORY: fall, left knee injury . Lateral left knee pain after fall. COMPARISON: None. TECHNIQUE: AP, oblique, lateral and sunrise patellar left knee x-rays. FINDINGS: No acute fracture, osseous malalignment, knee effusion, soft tissue gas or foreign body is seen. Bony mineralization is normal. Joint spaces are maintained. XR/XR knee LT 4V IMPRESSION: No acute left knee findings. Electronically authenticated by: JOHANN MOTA Date: 07/11/2023 02:58
[2023-07-11 00:36] LABS: Basophils Absolute Auto 0.1 10^3/uL (0.0-0.1); Basophils Percent Auto 0.9 % (0.2-2.0); Eosinophils Absolute Auto 0.2 10^3/uL (0.0-0.7); Eosinophils Percent Auto 2.1 % (0.9-7.0); Hematocrit 46.1 % (42.0-54.0); Hemoglobin 15.4 g/dL (14.0-18.0); Immature Granulocytes Abs Auto 0.03 10^3/uL (0.00-0.03); Immature Granulocytes Pct Auto 0.3 % (0.0-0.5); Lymphocytes Absolute Auto 2.4 10^3/uL (1.2-3.8); Lymphocytes Percent Auto 25.9 % (20.5-60.0); Mean Corpuscular HGB Conc 33.4 g/dL (29.9-35.2); Mean Corpuscular Volume 86.8 fL (80.0-94.0); Mean Platelet Volume 8.7 fL (9.5-13.5); Monocytes Absolute Auto 0.8 10^3/uL (0.3-0.8); Monocytes Percent Auto 8.8 % (1.7-12.0); Neutrophils Absolute Auto 5.7 10^3/uL (1.4-6.5); Platelet Count 300 10^3/uL (150-450); Red Blood Count 5.31 10^6/uL (4.70-6.10); Red Cell Distribution Width 12.3 % (11.0-15.0); White Blood Count 9.2 10^3/uL (4.0-11.0)
[2023-07-11] MEDS: 0.9 % SODIUM CHLORIDE 1,000 ML 1000 ML IV (00:48)
[2023-07-11 00:56] LABS: Alanine Aminotransferase 32 U/L (16-63); Albumin Level 3.7 g/dL (3.4-5.0); Alkaline Phosphatase 61 U/L (46-116); Anion Gap 10.6; Aspartate Amino Transferase 14 U/L (15-37); BUN Creatinine Ratio 18.1; Bilirubin Total 0.4 mg/dL (0.2-1.0); Calcium 9.3 mg/dL (8.5-10.1); Carbon Dioxide 32.6 mmol/L (21.0-32.0); Chloride 105 mmol/L (98-107); D Dimer <0.19 mg/L FEU (<=0.59); Estimated GFR (African America >60 (>=60); Estimated GFR (Non-African Ame >60 (>=60); Globulin 3.6 g/dL; Glucose 98 mg/dL (74-106); Potassium 4.2 mmol/L (3.5-5.1); Sodium 144 mmol/L (136-145); Total Protein 7.3 g/dL (6.4-8.2); Troponin I High Sensitivity 6.6 pg/mL (4.0-76.1)
[2023-07-11 01:54] VITALS: BP 140/91; PULSE 78; RESP 16; O2SAT 98
== END 2023-07-11 01:56 | disposition home or self-care (01) ==
PROVIDERS: Emergency Provider Emergency Medicine; PCP Family Medicine
DX: S80.02XA Contusion of left knee, initial encounter (principal); R20.2 Paresthesia of skin; G40.909 Epilepsy, unspecified, not intractable, without status epilepticus; F41.9 Anxiety disorder, unspecified; Z79.899 Other long term (current) drug therapy; G47.33 Obstructive sleep apnea (adult) (pediatric); F43.10 Post-traumatic stress disorder, unspecified; K21.9 Gastro-esophageal reflux disease without esophagitis; F31.9 Bipolar disorder, unspecified; Z96.89 Presence of other specified functional implants; M25.562 Pain in left knee; W19.XXXA Unspecified fall, initial encounter
CPT/HCPCS: 36415; 73564; 80053; 84484; 85025; 85378; 93005; 99285

== ENCOUNTER 2023-08-06 16:02 | Outpatient (REF) | payer MEDICARE, MEDICAID, SELFPAY ==
[2023-08-06 16:28] LABS: Influenza Virus A Antigen Positive; Influenza Virus B Antigen Negative; Internal Control Within Normal Limits; SARS-CoV-2 Ag NEGATIVE (NEGATIVE)
[2023-08-07 15:01] LABS: SARS-CoV-2 NAA INCONCLUSIVE (NOT DETECTE)
== END 2023-08-06 16:03 | disposition home or self-care (01) ==
LOC: LAB 16:02
PROVIDERS: PCP Family Medicine; Visit Provider Family Medicine
DX: J01.90 Acute sinusitis, unspecified (principal)
CPT/HCPCS: 87635; 87804; 87811

== ENCOUNTER 2024-03-26 18:07 | Emergency (ER) | payer MEDICARE, MEDICAID, SELFPAY ==
[2024-03-26] VITALS (14 sets, daily range): BP systolic 125–156; BP diastolic 83–106; PULSE 83–95; TEMP 36.8; O2SAT 95–99; BMI 31.3
--- OUTSIDE RECORDS SUMMARY | 2024-03-26 18:18 | XMS_ITS | CCD ---
Author Organization [facility] Care Team Providers Care Sustainment Logistics Analyst Name Role Phone CESAR FRAZIER Unavailable Unavailable Uriel Nunez MD Primary Care Provider [phone] Uriel Nunez MD Primary Care Provider [phone] Uriel Nunez MD Primary Care Provider [phone] Uriel Nunez MD Primary Care Provider [phone] URIEL LAU Primary Care Unavailable JARRED, KEVIN Admitting Unavailable WIL STERNYL Attending Unavailable JARRED, KEVIN Consulting Unavailable JAY KATZ Consulting Unavailable CHARLY, OTF Consulting Unavailable ENRIQUE ., DR COFFEY Primary Care Unavailable JASMINE, DR TYLER Norton Admitting Unavailable JASMINE, DR TYLER Norton Attending Unavailable JASMINE, DR TYLER Norton Consulting Unavailable YAMILETH LEE Consulting Unavailable ENRIQUE ., DR COFFEY Primary Care Unavailable JARRED, KEVIN Admitting Unavailable WIL STERNYL Attending Unavailable WIL STERNYL Consulting Unavailable NADIRA MARTINI Consulting Unavailable ENRIQUE [...] EMILY, DR MIRIAM Norton Consulting Unavailable ENRIQUE ., DR COFFEY Primary Care Unavailable JARRED, KEVIN Admitting Unavailable WIL SETRNYL Attending Unavailable JARRED KEVIN Consulting Unavailable DOMINIC ROMERO Consulting Unavailable Uriel Nunez Primary Care Physician MD Uriel Nunez M Primary Care Provider [phone] DO Saad Mir Emergency Provider NICK ROBERTSON Attending Unavailable HOY, URIEL M Primary Care Unavailable HOY, URIEL M Primary Care Unavailable DETTLING, JOSI Referring Unavailable HOY, URIEL M Primary Care Unavailable DETTLING, JOSI Referring Unavailable HOY, URIEL M Primary Care Unavailable DETTLING, JOSI Referring Unavailable MYA TENA Attending Lazarus grady ALEXANDERY, URIEL M Primary Care Unavailable DETTLING, JOSI Referring Unavailable DETTLING, JOSI Referring Unavailable HOY, URIEL M Primary Care Unavailable DETTLING, JOSI Referring Unavailable HOY, URIEL M Primary Care Unavailable MYA TENA Referring Unavai lable HOY, URIEL M Primary Care Unavailable HOY, URIEL M Primary Care Unavailable DETTLING, JOSI Referring Unavailable HOY, URIEL M Primary Care Unavailable DETTLING, JOSI Referring Unavailable HOY, URIEL M Primary Care Unavailable MYA TENA Referring MYA Ballesteros Attending Lazarus gomezearle BASSY, URIEL M Primary Care Unavailable DETTLING, JOSI Referring Unavailable HOY, URIEL M Primary Care Unavailable DETTLING, JOSI Referring Unavailable HOY, URIEL M Primary Care Unavailable DETTLING, JOSI Referring Unavailable ADALIDMICHAEL Referring Unavailab le HOY, URIEL M Primary Care Unavailable JAZMIN SKELTON Attending Unavailable ADALID, MICHAEL EATON Referring Unavailab le HOY, URIEL M Primary Care Unavailable DETTLING, JOSI Attending Unavailable HOY, URIEL M Primary Care Unavailable DETTLING, JOSI Referring Unavailable HOY, URIEL M Primary Care Unavailable DETTLING, JOSI Referring Unavailable HOY, URIEL M Primary Care Unavailable DETTLING, JOSI Referring Unavailable MALDONADO TENACIMichael Rodriguez Referring Natvai lable HOY, URIEL M Primary Care Unavailable HOY, URIEL M Primary Care Unavailable DETTLING, JOSI Referring Unavailable HOY, URIEL M Primary Care Unavailable DETTLING, JOSI Referring Unavailable DETTLING, JOSI Referring Unavailable HOY, URIEL M Primary Care Unavailable HOY, URIEL M Primary Care Unavailable DETTLING, JOSI Referring Unavailable MYA TENA Attending Lazarus grady DETTLING, JOSI Referring Unavailable HOY, URIEL M Primary Care Unavailable HOY, URIEL M Primary Care Unavailable DETTLING, JOSI Referring Unavailable ALONSO, GERALDINE M Attending Unavailable HOY, URIEL M Primary Care Unavailable SUSANNAH BECKER Referring Unavailable ALONSO, GERALDINE M Attending Unavailable HOY, URIEL M Primary Care Unavailable Uriel Nunez MD Primary Care Provider [phone] MD Uriel Nunez Primary Care Provider [phone] MD Taiwo Trujillo Attending Provider [phone] DO Nirmal Hernandez Emergency Provider MD Sherif Francis Admit Provider [phone] MD Sherif Francis Attending Provider AMEENA Alston Other Provider MD Reginald Tang Other Provider [phone] MD John Rodriguez Other Provider MD Martin Dorado Other Provider DO Quintin Holt Other Provider DO Jayesh Eldridge Other Provider MD Scott Monterroso Other Provider MD Rober Bonner Other Provider MD Joselito Daily Other Provider MD Mary Calhoun Attending Provider MD Taiwo Trujillo Other Provider Nahed Doran Attending Unavailable DO Issa Levy Attending Unavailable Nahed Doran Attending Unavailable Nahed Doran Attending Unavailable Nahed Doran Attending Unavailable Lue, Nahed M. Admitting Unavailable DO Virgil Dozier SBradley Attending Unavailable DO Virgil Dozier Attending Unavailable HOY, URIEL M Primary Care Unavailable ESTELA VARGAS Attending Unavailable ESTELA VARGAS Attending Unavailable ESTELA VARGAS Referring Unavailable HOY, URIEL M Primary Care Unavailable HOY, URIEL M Primary Care Unavailable NICHESTER MARTINEZ M Attending Unavailable DANIA ERVIN Referring Unavailable HOY, URIEL M Primary Care Unavailable NIENBERGCHESTER Referring Unavailable HOY, URIEL M Primary Care Unavailable NIENBERG, CHESTER M Referring Unavailable HOY, URIEL M Primary Care Unavailable HILLS, PAOLA D Attending Unavailable HILLS, PAOLA D Attending Unavailable HILLS, PAOLA D Referring Unavailable HILLS, PAOLA D Attending Unavailable HILLS, PAOLA D Referring Unavailable HILLS, PAOLA D Referring Unavailable HILLS, PAOLA D Referring Unavailable SHAWNEE JONAS Attending Unavailable UNALLOCATED, NOMS PROVIDER Referring Unava ilable Uriel Nunez MD Primary Care Provider [phone] Uriel Nunez MD Primary Care Provider [phone] MICHAEL CORDOBA Attending Unavailab le HOY, URIEL M Primary Care Unavailable HOY, URIEL M Primary Care Unavailable SOBEIDA GALVAN Attending Unavailable HOY, URIEL M Primary Care Unavailable SOBEIDA GALVAN Attending Unavailable HILLS, PAOLA Referring Unavailable JEMIMA PURDY Attending Unavailable HOY, URIEL M Primary Care Unavailable HOY, URIEL M Primary Care Unavailable LINO MENDIOLA Attending Unavailable MICHAEL CORDOBA Attending Unavailab le HOY, URIEL M Primary Care Unavailable JOJO NAYAK Referring Unavailable HOY, URIEL M Primary Care Unavailable HOY, URIEL M Primary Care Unavailable JOHANN AWAD Referring Unavailable HILLS, PAOLA Referring Unavailable HOY, URIEL M Primary Care Unavailable MICHAEL CORDOBA Attending Unavailab le SELF Referring Unavailable HOY, URIEL M Primary Care Unavailable HOY, URIEL M Primary Care Unavailable SOBEIDA GALVAN Attending Unavailable AIDA ERVIN Attending Unavailable HOY, URIEL M Primary Care Unavailable KANIKA BENNETT Attending Unavailable HOY, URIEL M Primary Care Unavailable SELF Referring Unavailable HOY, URIEL M Primary Care Unavailable SOBEIDA GALVAN Attending Unavailable AIDA ERVIN Referring Unavailable HOY, URIEL M Primary Care Unavailable HOY, URIEL M Primary Care Unavailable SOBEIDA GALVAN Attending Unavailable SELF Referring Unavailable HOY, URIEL M Primary Care Unavailable SOBEIDA GALVAN Attending Unavailable SELF Referring Unavailable HOY, URIEL M Primary Care Unavailable SOBEIDA GALVAN Attending Unavailable JOHANN AWAD Referring Unavailable JOHANN AWAD Attending Unavailable HOY, URIEL M Primary Care Unavailable JOHANN AWAD Referring Unavailable HOY, URIEL M Primary Care Unavailable ADALID, MICHAEL EATON Attending Unavailab le SELF Referring Unavailable HOY, URIEL M Primary Care Unavailable HOY, URIEL M Primary Care Unavailable JOHANN AWAD Attending Unavailable JOHANN AWAD Admitting Unavailable ADALID, MICHAEL EATON Attending Unavailab le SELF Referring Unavailable HOY, URIEL M Primary Care Unavailable SELF Referring Unavailable INEZ CORDERO Attending Unavailable HOY, URIEL M Primary Care Unavailable HOY, URIEL M Primary Care Unavailable JOHANN AWAD Referring Unavailable [facility], MICHAEL EATON Attending Unavailab le SELF Referring Unavailable HOY, URIEL M Primary Care Unavailable HOY, URIEL M Primary Care Unavailable SOBEIDA GALVAN Attending Unavailable HOY, URIEL M Primary Care Unavailable JOHANN AWAD Referring Unavailable PAOLA MICHEL Referring Unavailable HOY, URIEL M Primary Care Unavailable JEMIMA PURDY Attending Unavailable Temitope Woodward Consulting Unavailable Hoy, Uriel M Primary Care Unavailable Aj Crawford Attending Unavailable Cassandra, Taiwo Admitting Unavailab Mily Joshua Consulting Unavailable Miriam Liang Consulting Unavailable Reginald Garcia Consulting Unavailab Pam Jacobson Consulting Unavailable Martin Samaniego Consulting Unavailable Daysi Jansen Consulting Unavailable Hina Biswas Consulting Unavailable Amy Almanzar Consulting Unavailable Hoy, Uriel M Primary Care Unavailable Cassandra, Taiwo Admitting Unavailab earle Trujillo, Taiwo Attending Unavailab Mary Forbes Attending Unavailable Enrique, Uriel M Primary Care Unavailable Sherif Francis Admitting Unavailable Heide Alston Consulting Unavailable Reginald Tang Consulting Unavaila John Whitaker Consulting Unavailable Martin Dorado Consulting Unavailable Quintin Holt Consulting Unavailable Jayesh Eldridge Consulting Unavailable Scott Monterroso Consulting Unavailable Rober Bonner Consulting Un available Joselito Daily Consulting Unavailable Taiwo Trujillo Consulting Unavailab le Allergies Allergy Classification Reported Allergen(s) Allergy Type Date of Onset Reaction(s) Facility (20 sources) Desvenlafaxine; Translations: [desvenlafaxine] Drug Allergy 01-13-20 14 Other: See Comments [facility] (20 sources) Ketorolac; Translations: [KETOROLAC TROMETHAMINE] Drug Allergy 09-15-19 [address] [facility] (20 sources) levETIRAcetam; Translations: [levetiracetam] Drug Allergy 08-01-19 11 Other: See Comments, Unknown (qualifier value) [facility] (1 source) Acetaminophen / oxyCODONE Drug Allergy [facility] (3 sources) Desvenlafaxine; Translations: [Pristiq] Drug Allergy [facility] (2 sources) Ketorolac Drug Allergy 09-28-19 21 [facility] (3 sources) levETIRAcetam; Translations: [Keppra] Drug Allergy [facility] (1 source) [place] Drug Allergy [facility] (2 sources) Desvenlafaxine; Translations: [DESVENLAFAXINE SUCCINATE] Drug Allergy 10-02-19 22 [facility] (5 sources) Desvenlafaxine Drug Allergy 01-13-20 14 Hallucinations , Unknown [facility] (5 sources) Ketorolac trometamol Propensity to adverse reactions 09-15-19 17 Unknown [facility] (5 sources) Levetiracetam Allergy to substance 09-20-19 09 Anxiety, Unknown [facility] (1 source) Desvenlafaxine Drug Allergy 01-02-20 23 [facility] (1 source) levETIRAcetam Drug Allergy 01-02-20 23 [facility] Medications Current Medications Medication Drug Class(es) Dates Sig (Normalized) Sig (Original) Albuterol (20 sources) beta2-Adrenergic Agonist Start: 05-28-2017 take 1 puff(s) by inhalation four times daily Albuterol Sulfate Active 1 - 2 PUFF INHALATION Four times daily May 28, 2017 1:00am Start: 01-15-2017 End: 02-09-2017 take 1 puff(s) [...] instructed as needed for Wheezing/Shortness of Breath. Active take 1 puff(s) by mo uth every four hours as needed albuterol HFA 90 mcg/act inhaler INHALE 1 PUFF BY MOUTH EVERY 4 HOURS NEEDED FOR 30 DAYS Active End: 08-26-2023 ALBUTEROL SULFATE HFA INHALA TION Inhale as instructed. 0 08/26/2023 Discontinued Comment on above: Inhale 1-2 Puffs as instructed as needed for Wheezing/Shortness of Breath. Inhale as instructed . Albuterol Sulfate (Proair Hfa) 90 mcg/actuation HFA aerosol inhaler (2 sources) Start: 018 take 1 puff(s) by inhalation four times daily Albuterol Sulfate (Proair Hfa) 90 mcg/actuation HFA aerosol inhaler Active 1 - 2 PUFF INHALATION Four times daily May 28, 2017 1:00am benzocaine 15 mg / menthol 3.6 mg oral lozenge (20 sources) Standardized Chemical Allergen Start: 023 Cepacol Sore Throat 15 mg-3.6 mg mucous membrane lozenge 1 lozenge(s), Oral, q2hr Sore throat, Refill(s) 0 Start Date: 09/19/22 Status: Ordered Start: 04-28-2022 benzocaine-men thol (CEPACOL) 15-3.6 mg lozg Use 1 Lozenge as instructed every 2 hours as needed. 30 Lozenge 04/28/2022 Active Start: 09-21-2020 benzocaine-men thol (CEPACOL) 15-3.6 mg lozg Use 1 Lozenge as instructed every 2 hours as needed. 30 Lozenge 0 09/21/2020 Active Comment on above: Use 1 Lozenge as ins tructed every 2 hours as needed. clonazePAM 2 mg oral tablet (20 sources) Benzodiazepine Start: 010 End: 025 take 1 tablet by mouth three times daily clonazePAM (KLONOPIN) 2 mg tablet Indications: Partial epilepsy with impairment of consciousness, intractable (HCC) Take 1 tablet by mouth three times a day for 180 days. 90 tablet 5 01/20/2024 07/18/2024 Active Comment on above: Take 1 tablet by gisella th three times daily for 180 days. Take one(1) tablet t hree times daily Take one(1) tablet t hree times daily. Take 1 tablet by gisella th three times a day for 180 days. Take one(1) tablet three times daily. cloNIDine hydrochloride 0.1 mg oral tablet (17 sources) Central alpha-2 Adrenergic Agonist Start: 024 End: 024 take 1 tablet by mouth twice daily cloNIDine HCl (CATAPRES) 0.1 mg tablet TAKE 1 TABLET BY MOUTH TWICE A DAY 180 tablet 1 11/25/2023 Active CPAP (20 sources) Start: CPAP Indications: Bipolar II disorder (HCC) , Psychophysiologic insomnia , HIMA (obstructive sleep apnea) Change the pressure of autoBipap with EPAP 5-15 mh2o and PS 4-8cmh2O. His DME company is [email or web address] mask to fit patient preference, ramp, humidification and unlimited supplies Please send us machine download in 1 month 1 Device 06/20/2020 Active Start: 06-20-2020 CPAP Indicatio ns: HIMA (obstructive sleep apnea) Please send us machine download in 1 month 1 Device 06/20/2020 Active Start: 06-20-2020 CPAP Indicatio ns: Bipolar II disorder (HCC) , Psychophysiologic insomnia , HIMA (obstructive sleep apnea) Change the pressure of autoBipap with EPAP 5-15 mh2o and PS 4-8cmh2O. His DME company is [place] , new mask to fit patient preference, [...] us machi ne download in 1 month cyproheptadine hydrochloride 4 mg oral tablet (20 [...] daily. diclofenac sodium 0.01 mg/mg topical gel (20 sources) Nonsteroidal Anti-inflammatory Drug Start: 11-11-2023 diclofenac sodium (Voltaren) 1 % gel Indications: Osteoarthritis of patellofemoral joints, bilateral Apply 2 g topically in the morning and 2 g in the evening and 2 g before bedtime. 1 g 11/11/2023 Active Start: 04-22-2023 Voltaren 1 % g el Apply topically 04/22/2023 Active Start: 03-04-2023 take 1 tablet by gisella th every twelve hours diclofenac, EC, (VOLTAREN) 75 mg EC tablet Take 1 tablet by mouth every 12 hours. 06/10/2023 Active Comment on above: Take 1 tablet by gisella th every 12 hours. dicyclomine hydrochloride 10 mg oral capsule (1 source) Anticholinergic Start: 12-01-19 End: 12-08-19 take 1 capsule by mouth four times daily Bentyl 10 mg Cap 10 mg = 1 cap(s), Oral, QID, X 7 day(s), # 28 cap(s), Refills(s) 0, Pharmacy: [facility]/pharmacy #[id number], 178, cm, 12/01/23 19:37:00 EDT, Height/Length Dosing, 97, kg, 07/16/24 19:37:00 EDT, Weight Dosing Start Date: 12/01/23 Stop Date: 12/08/23 Status: Ordered docusate sodium 100 mg oral capsule (16 sources) Start: 10-27-19 take 1 capsule by mouth twice daily as needed docusate sodium (Colace) 100 MG capsule TAKE 1 CAPSULE BY MOUTH TWICE A DAY NEEDED 10/27/2023 Active Start: 09-25-2023 End: 09-26-2023 Docusate Sodium Discontinued MG PO September 25, 2023 12:00am September 26, 2023 10:44am Start: 09-21-2020 take 1 capsule by [facility]x [place] every twelve hours as needed docusate sodium (COLACE) 100 mg capsule Take 1 capsule by mouth twice daily as needed for Constipation. 60 capsule 0 09/21/2020 Active Comment on above: Take 1 capsule by mouth twice daily as n eeded for Constipation. 1 ml erenumab-aooe 140 mg/ml auto-injector (20 sources) Start: 02-28-20 End: 01-21-20 inject 1 mL by subcutaneous injection every month AIMOVIG AUTOINJECTOR 140 mg/mL auto-injector Indications: Chronic migraine without aura without status migrainosus, not intractable INJECT 1ML SUBCUTANEOUSLY EVERY MONTH 1 mL 01/21/2024 Active Start: 02-27-2023 inject 140 mg by sub cutaneous injection every 30 days erenumab (Aimovig) 140 MG/ML injection Inject 140 mg under the skin every 30 (thirty) days 02/27/2023 Active Start: 01-29-2023 End: 02-28-2023 inject 1 mL by subcutaneous injection every month erenumab-aooe (AIMOVIG AUTOINJECTOR) 70 mg/mL auto-injector Indications: Chronic migraine without aura without status migrainosus, not intractable Inject 1 mL subcutaneously once every month. 1 mL 5 01/29/2023 02/27/2023 Discontinued erenumab-aooe (A IMOVIG AUTOINJECTOR) 140 mg/mL auto-injector Inject 140 mg under the skin every 28 days. Active Comment on above: Inject 1 mL subcutan eously once every month. ergocalciferol 1.25 mg oral capsule (5 sources) Provitamin D2 Compound Start: 09-29-19 ergocalciferol (Vitamin D2) 1.25 MG (60018 UT) capsule TAKE 1 CAPSULE BY MOUTH EVERY 7 DAYS FOR 28 DAYS 09/29/2023 Active fluticasone (20 sources) Corticosteroid Start: 09-20-19 take 1 spray(s) nasal route once daily fluticasone nasal one spray, Nasal, Daily, Refill(s) 0, in each nostril, Allergy symptoms Start Date: 09/19/22 Status: Ordered take 1 spray(s) nasal route twic e daily fluticasone (FLONASE) 50 mcg/actuation nasal spray Use 1 [place] in each nostril twice daily. Active fluticasone prop ionate (FLONASE) 50 mcg/actuation nasal spray 1 spray by NOT APPLICABLE route in the morning and 1 spray before bedtime. Active fluticasone (Sai nase) 50 MCG/ACT nasal spray 1 spray in the morning and 1 spray in the evening. Active Comment on above: Use 1 [place] in each nostril twice daily. ibuprofen 800 mg oral tablet (20 sources) Nonsteroidal Anti-inflammatory Drug Start: 06-10-2023 take 1 tablet by mouth every eight hours as needed ibuprofen (MOTRIN) 800 mg tablet Take 800 mg by mouth three times a day as needed. 06/10/2023 Active Start: 05-28-2017 End: 07-11-2017 take 800 mg by mouth three times daily Ibuprofen Discontinued 800 MG PO Three times daily May 28, 2017 1:00am July 11, 2017 2:48am Comment on above: Take 800 mg by mouth three times a day as needed. indomethacin 75 mg extended release oral capsule [...] on above: Take 1 capsule by mo uth twice daily with meals. lurasidone hydrochloride 20 mg oral tablet (20 sources) Atypical Antipsychotic Start: 02-01-20 End: 03-02-20 take 1 tablet by mouth once daily at breakfast lurasidone (LATUDA) 20 mg tablet Take 1 tablet by mouth daily with breakfast. 30 tablet 2 02/01/2024 Active Start: 10-21-2023 End: 01-19-2024 take 1 tablet by mouth once daily lurasidone (LATUDA) 80 mg tablet Take 1 tablet by mouth once daily. 30 tablet 2 10/21/2023 Active Start: 10-07-2023 take 1 tablet by gisella th once daily lurasidone (LATUDA) 20 mg tablet Take 1 tablet by mouth once daily. 5 tablet 0 10/07/2023 Active Start: 09-25-2023 Lurasidone Act patricia MG TABLET September 25, 2023 12:00am Start: 06-26-2023 End: 07-08-2023 take 1 tablet by mouth once daily at dinner lurasidone (LATUDA) 80 mg tablet TAKE 1 TABLET BY MOUTH DAILY WITH DINNER *LOWER THE SEROQUEL TO 100MG IN THE EVENING* 30 tablet 10 07/08/2023 Active Start: 06-11-2023 End: 06-26-2023 take 1 tablet by mouth once daily lurasidone (LATUDA) 20 mg tablet Take 1 tablet by mouth once daily. Take with your 40mg dose to equal 60mg once daily. 30 tablet 0 06/11/2023 06/26/2023 Discontinued Start: 05-08-2023 End: 06-26-2023 take 1 tablet by mouth once daily at dinner lurasidone (LATUDA) 40 mg tablet Take 1 tablet by mouth daily with dinner. 30 tablet 0 06/03/2023 06/26/2023 Discontinued Comment on above: Take 1 tablet by gisella th daily with dinner. Take 1 tablet by gisella th daily with dinner. Lower the seroquel to 100mg in the evening. Take 1 tablet by gisella th once daily. Take with your 40mg dose to equal 60mg once daily. TAKE 1 TABLET BY GISELLA TH DAILY WITH DINNER *LOWER THE SEROQUEL TO 100MG IN THE EVENING* nadolol 80 mg oral tablet (20 sources) [...] 1 tablet by gisella th once daily. ondansetron 4 mg disintegrating oral tablet (5 sources) Serotonin-3 Receptor Antagonist Start: 10-20-19 take 1 tablet by mouth every six hours as needed for nausea ondansetron ODT (Zofran-ODT) 4 MG disintegrating tablet 1 tablet on the tongue and allow to dissolve = for nausea Orally Q 6 hours PRN 10/20/2023 Active polyethylene glycol 3350 33379 mg powder for oral solution (1 source) Osmotic Laxative Start: 09-26-19 Polyethylene Glycol 3350 (Healthylax) 17 gram Powder In Packet Active 17 GM PO Daily 0 September 26, 2023 12:00am promethazine hydrochloride 25 mg oral tablet (20 sources) Phenothiazine Start: 12-13-19 End: 03-26-20 take 1 tablet by mouth three times daily as needed for nausea promethazine (PHENERGAN) 25 mg tablet Indications: Chronic migraine without aura without status migrainosus, not intractable 1 po tid prn headache or nausea 90 tablet 03/26/2023 Active Start: 08-12-2022 End: 12-09-2022 take [...] hydrochloride 120 mg extended release oral capsule (3 sources) beta-Adrenergic Jeremías Start: 01-16-20 17 take 1 capsule by mouth once daily Propranolol (Inderal La) 120 mg Capsule,Extended Release 24 Hr Active 120 MG PO daily January 15, 2017 12:00am QUEtiapine 200 mg oral tablet (20 sources) Atypical Antipsychotic Start: 09-26-19 Quetiapine Active 50 MG PO Bedtime September 26, 2023 10:44am 250 mg PO QHS, may take second 50mg if not asleep 40-45 minutes. Start: 05-08-2023 End: 08-23-2023 take 1 tablet by mouth once daily at bedtime QUEtiapine (SEROQUEL) 200 mg tablet take 1 tablet by mouth every night at bedtime 30 tablet 10 08/21/2023 Active Start: 01-26-2023 End: 05-01-2023 take 1 tablet [...] 12/10/2022 Discontinued Start: 10-25-2021 End: 02-24-2023 take 1 tablet by mouth every eight hours as needed QUEtiapine (SEROQUEL) 50 mg tablet take 1 tablet by mouth three times daily as needed for anxiety 90 tablet 10 02/02/2023 Active Start: 10-25-2021 End: 01-23-2022 take 1 tablet [...] 12:00am July 11, 2017 2:46am Start: 01-15-2017 End: 09-26-2023 Quetiapine Discontinued 300 MG PO Bedtime January 15, 2017 12:00am September 26, 2023 10:44am 250 mg PO QHS, may take second 50mg if not asleep 40-45 minutes. QUEtiapine (SERO quel) 100 MG tablet 200 mg 1 (one) time each day at the same time Active Comment on above: Take 1 tablet [...] three times daily as needed for anxiety take 1 tablet by gisella th daily at bedtime take 1 tablet by gisella th every night at bedtime rizatriptan 10 mg disintegrating oral tablet (20 sources) Serotonin-1b and Serotonin-1d Receptor Agonist Start: 12-13-19 End: 03-18-20 take 1 tablet by mouth every two hours as needed for headache rizatriptan (MAXALT ENVIRONMENTAL SERVICES WORKER) 10 mg disintegrating tablet Indications: Chronic migraine without aura without status migrainosus, not intractable DISSOLVE 1 TABLET BY MOUTH NEEDED AT ONSET OF HEADACHE. MAY REPEAT AFTER 2 HOURS. DO NOT EXCEED 30MG PER DAY 9 tablet 1 03/18/2024 Active Start: 09-19-2022 rizatriptan 10 mg, Oral, Daily, PRN Migraine headache, may repeat dose once in 2 hours, Refills(s) 0, Migraine headache Start Date: 09/19/22 Status: Ordered Start: 08-12-2022 End: 12-09-2022 take 1 tablet by mouth every two hours as needed for headache rizatriptan (MAXALT-ENVIRONMENTAL SERVICES WORKER) 10 mg disintegrating tablet Indications: Chronic migraine without aura without status migrainosus, not intractable Take 1 tablet by mouth as needed (at onset of headache. May repeat after 2 hours.). Do not exceed 30 mg per day. 9 tablet 5 08/12/2022 12/09/2022 Discontinued Comment on above: Take 1 tablet by giselal th as needed (at onset of headache. May repeat after 2 hours.). Do not exceed 30 mg per day. Sennosides (Senna Laxative) 8.6 mg Tablet (1 source) Start: 09-26-2023 Sennosides (Senna Laxative) 8.6 mg Tablet Active 8.6 MG PO PRN September 26, 2023 12:00am sertraline 100 mg oral tablet (20 sources) Serotonin Reuptake Inhibitor Start: 10-25-2021 End: 10-17-2023 take 3 tablets by mouth once daily sertraline (ZOLOFT) 100 mg tablet take 3 tablets by mouth once daily 90 tablet 10 09/21/2023 Active Start: 02-02-2020 End: 10-06-2021 take 3 tablets by mouth once daily sertraline (ZOLOFT) 100 mg tablet Take 3 tablets by mouth once daily. 90 tablet 5 04/09/2021 10/06/2021 Active Start: 01-15-2017 take 300 mg by mouth once daily at bedtime Sertraline Active 300 MG PO Daily at bedtime January 15, 2017 12:00am Comment on above: Take 3 tablets by mo uth once daily. simvastatin 20 mg oral tablet (20 sources) HMG-CoA Reductase Inhibitor Start: 2 take 1 tablet by mouth once daily in the evening simvastatin (ZOCOR) 20 mg tablet Take 20 mg by mouth every evening. 05/21/2023 Active Start: 01-15-2017 End: 09-07-2018 take 20 mg by mouth once daily in the evening Simvastatin Discontinued 20 MG PO Every evening January 15, 2017 12:00am September 07, 2018 3:53pm Comment on above: Take 20 mg by mouth every evening. traMADol hydrochloride 50 mg oral tablet (1 source) Opioid Agonist Start: 04-22-2023 End: 04-25-2023 take 1 tablet by mouth every six hours as needed for pain traMADOL 50 mg Tab 50 mg = 1 tab(s), Oral, q6hr, PRN for pain, X 3 day(s), # 12 tab(s), Refills(s) 0, Pharmacy: [facility]/pharmacy #[id number], 178, cm, 04/22/23 21:32:00 EST, Height/Length Dosing, 96.4, kg, 04/22/23 21:32:00 EST, Weight Dosing Start Date: 04/22/23 Stop Date: 04/25/23 Status: Ordered Zofran ODT 4 mg Tab-Dis (1 source) Start: 12-01-2023 take 1 tablet by mouth every eight hours as needed for nausea Zofran ODT 4 mg Tab-Dis 4 mg = 1 tab(s), Oral, q8hr, PRN Nausea/Vomiting, # 12 tab(s), Refills(s) 0, Pharmacy: [facility]/pharmacy #[id number], 178, cm, 12/01/23 19:37:00 EDT, Height/Length Dosing, 97, kg, 12/01/23 19:37:00 EDT, Weight Dosing Start Date: 12/01/23 Status: Ordered Completed/Discontinued Medications Medication Drug Class(es) Dates Sig (Normalized) Sig (Original) acetaminophen 325 mg oral tablet (10 sources) Start: 09-21-2020 take 325-650 mg by mouth every four hours as needed acetaminophen (TYLENOL) 325 mg tablet Take 1-2 tablets by mouth every 4 hours as needed. 0 09/21/2020 Active Comment on above: Take 1-2 tablets by mouth every 4 hours as needed. amitriptyline hydrochloride 25 mg oral tablet (3 sources) Tricyclic Antidepressant Start: 01-20-2017 End: 09-07-2018 take 25 mg by mouth twice daily Amitriptyline Discontinued 25 MG PO Twice daily 60 January 20, 2017 12:00am September 07, 2018 3:53pm amoxicillin 875 mg / clavulanate 125 mg oral tablet (3 sources) Penicillin-class Antibacterial Start: 02-09-2017 End: 05-28-2017 take 875 mg by mouth twice daily Amoxicillin-Pot Clavulanate Discontinued 875 MG PO Twice daily February 09, 2017 12:00am May 28, 2017 2:33am carbamide peroxide 100 mg/ml mucous membrane topical solution (3 sources) Start: 01-15-2017 End: 02-09-2017 Carbamide Peroxide (Gly-Oxide) 10 % Solution Discontinued 1 APPLIC MUCOUS MEM Bedtime January 15, 2017 12:00am February 09, 2017 11:23pm celecoxib 200 mg oral capsule (3 sources) Nonsteroidal Anti-inflammatory Drug Start: 01-15-2017 End: 07-11-2017 Celecoxib Discontinued 200 MG PO 1-2 TIMES DAILY January 15, 2017 12:00am July 11, 2017 4:35am Zyrtec (20 sources) Histamine-1 Receptor Antagonist Start: 09-19-2022 take 2 tablets by mouth once daily Zyrtec 10 mg, Oral, Daily, 1 or 2 tabs, Refills(s) 0, Allergy symptoms Start Date: 09/19/22 Status: Ordered Cetirizine 10 mg cap Take 1-2 tablets by mouth as needed. Active Comment on above: Take 1-2 tablets by mouth as needed. chlorhexidine gluconate 1.2 mg/ml mouthwash (3 sources) Start: 2016 End: 2016 Chlorhexidine Gluconate Discontinued 15 ML BUCCAL Bedtime January 15, 2017 12:00am February 09, 2017 11:23pm cyclobenzaprine hydrochloride 10 mg oral tablet (3 sources) Muscle Relaxant Start: 2016 End: 2017 take 10 mg by mouth three times daily Cyclobenzaprine Discontinued 10 MG PO Three times daily February 09, 2017 12:00am May 28, 2017 2:33am famotidine 20 mg oral tablet (3 sources) Histamine-2 Receptor Antagonist Start: 2017 End: 2018 take 1 tablet by mouth twice daily Famotidine (Pepcid) 20 mg tablet Discontinued 20 MG PO Twice daily May 28, 2017 1:00am September 07, 2018 3:53pm 1 ml galcanezumab-gnlm 120 mg/ml auto-injector (13 sources) Start: 2022 End: 2022 inject 1 mL by subcutaneous injection [...] SUBCUTANEOUSLY ONCE EVERY MONTH. DO NOT SHAKE. lacosamide 100 mg oral tablet (20 sources) Anti-epileptic Agent Start: 2022 End: 2023 take 1 tablet by mouth in the morning lacosamide (Vimpat) 100 MG tablet Take 100 mg by mouth in the morning and 100 mg in the evening. 04/10/2023 04/09/2024 Active Start: 01-15-2017 End: 09-14-2024 take 1 tablet by mouth twice daily lacosamide (VIMPAT) 100 mg tab Indications: Partial epilepsy with impairment of consciousness, intractable (HCC) Take 1 tablet by mouth two times a day for 180 days. 180 tablet 1 10/13/2023 03/18/2024 Discontinued Start: 01-15-2017 take 1 tablet by gisella th once daily Lacosamide (Vimpat) 100 mg Tablet Active 300 MG PO Daily January 15, 2017 12:00am Comment on above: Take 1 tablet by gisella th twice daily for 180 days. Take 1 tablet by [facility] twice daily for 90 days. Take 1 tablet by gisella twice daily. Take 1 tablet by gisella two times a day. levoFLOXacin 500 mg oral tablet (3 sources) Quinolone Antimicrobial Start: 018 End: 018 take 500 mg by mouth once daily Levofloxacin Discontinued 500 MG PO Daily May 28, 2017 1:00am July 11, 2017 2:49am 1 ml LORazepam 2 mg/ml injection (20 sources) Benzodiazepine Start: 023 End: 024 inject 1 dose by intramuscular injection once Lorazepam (Ativan) 2 mg/mL Solution Discontinued 1 MG IM Once January 01, 2023 12:00am September 26, 2023 10:44am administer 5-20 minutes before start of surgery/procedure as a single dose Start: 03-20-2020 End: 08-15-2022 LORazepam (ATIVAN) 1 mg tabl et Indications: Epilepsy with altered consciousness without intractable epilepsy (HCC) Take 1 tablet by mouth as needed (for seizure lasting >3 minutes. Max 2 doses in 24 hours.) for up to 180 days. 10 tablet 1 09/21/2020 Active Comment on above: Take 1 tablet by gisella as needed (for seizure lasting >3 minutes. Max 2 doses in 24 hours.) for up to 180 days. methylPREDNISolone (2 sources) Corticosteroid Start: 12-16-2022 End: 12-21-2022 methylPREDNISolone (MEDROL, TORY,) [...] omeprazole 40 mg delayed release oral capsule (6 sources) Proton Pump Inhibitor Start: 02-09-2017 End: 05-28-2017 take 40 mg by mouth once daily Omeprazole Discontinued 40 MG PO Daily February 09, 2017 12:00am May 28, 2017 2:33am Start: 01-15-2017 End: 02-09-2017 take 40 mg by mouth twice daily Omeprazole Discontinued 40 MG PO Twice daily January 15, 2017 12:00am February 09, 2017 11:19pm pregabalin 300 mg oral capsu le (6 sources) Start: 02-09-2017 End: 02-09-2017 Pregabalin (Lyrica) 300 mg Capsule Discontinued February 09, 2017 12:00am February 09, 2017 11:20pm Start: 01-15-2017 End: 09-07-2018 take 1 capsule by mouth twice daily Pregabalin (Lyrica) 300 mg Capsule Discontinued 300 MG PO Twice daily January 15, 2017 12:00am September 07, 2018 3:53pm Sumatriptan (20 sources) Serotonin-1b and Serotonin-1d Receptor Agonist Start: 09-19-2022 take 1 dose by mouth every two hours as needed sumatriptan 100 mg, Oral, Once, PRN Migraine headache, may repeat dose in 2 hours if needed, Refills(s) 0, Migraine headache Start Date: 09/19/22 Status: Ordered Start: 09-07-2018 End: 01-01-2023 Sumatriptan Succinate (Imitr ex) 50 mg Tablet Discontinued 50 MG PO EVERY 2-4 HOURS September 07, 2018 12:00am January 01, 2023 2:55pm SUMAtriptan (IMI TREX) 100 mg tablet Take 100 mg by mouth as needed for Migraine Headache (see administration instructions). 0 Active Comment on above: Take 100 mg by mouth as needed for Migraine Headache (see administration instructions). tiZANidine 4 mg oral capsule (6 sources) Central alpha-2 Adrenergic Agonist Start: 05-28-2017 [...] Problem Classification Problem Date Documented Date Episodic/Chronic Abdominal pain (1 source) Abdominal pain; Translations: [Unspecified abdominal pain] Onset: 4 Episodic Anxiety disorders (20 sources) Mixed anxiety and depressive disorder; Translations: [Other specified anxiety disorders] Onset: 4 04-07-2016 Chronic Attention-deficit, conduct, and disruptive behavior disorders (20 sources) Attention deficit hyperactivity disorder 10-26-2009 Chronic Calculus of urinary tract (6 sources) History of calculus of kidney; Translations: [Personal history of urinary calculi] Onset: 3 Episodic Cardiac dysrhythmias (1 source) Supraventricular tachycardia; Translations: [SUPRAVENTRICULAR TACHYCARDIA] Onset: 2 Chronic Cardiac dysrhythmias (20 sources) Tachyarrhythmia ; Translations: [Tachycardia] 07-29-2013 Episodic [...] h impairment of consciousness intractable Epilepsy; convulsions (14 sources) Seizure 11-03-2013 Episodic Comment on above: complex partial seiz ures evolving to generalized tonic-clonic seizures Esophageal disorders (20 sources) Gastroesophageal reflux disease without esophagitis; Translations: [Gastro-esophageal reflux disease without esophagitis] Onset: 8 02-03-2018 Chronic Essential hypertension (20 sources) Essential (primary) hypertension; Translations: [Hypertensive disorder] Onset: 3 08-26-2023 Chronic Genitourinary symptoms and ill-defined conditions (16 sources) Blood in urine; Translations: [Gross hematuria] [...] remission] Onset: 7 Chronic Nonspecific chest pain (9 sources) Chest pain, unspecified; Translations: [Other chest pain] Onset: 2 Episodic Occlusion or stenosis of precerebral arteries (4 sources) Occlusion and stenosis of bilateral carotid arteries; Translations: [OCCLUSION AND STENOS SEA CAROTID ART] Onset: 2 Chronic Other aftercare (1 source) Other half-way (current) drug therapy; Translations: [OTH BOOTH CASHIER CURRENT DRUG THERAPY] Onset: 3 Episodic Other aftercare (1 source) Patient encounter status; Translations: [Encounter for therapeutic drug level monitoring] 08-05-2023 Episodic Other diseases of kidney and ureters (1 source) Urinary tract obstruction; Translations: [Hydronephrosis with renal and ureteral calculous obstruction] Onset: 3 Episodic Other lower respiratory disease (7 sources) Apnea 12-29-2013 Episodic Other lower respiratory disease (1 source) Hypoxia; Translations: [Hypoxemia] 09-25-2023 Episodic Other nervous system disorders (1 source) Other chronic pain; Translations: [Other chronic pain] Onset: 4 Chronic Other nervous system disorders (1 source) Chronic pain; Translations: [Other chronic pain] 02-22-2024 Chronic Other nervous system disorders (3 sources) Paresthesia; Translations: [Paresthesia of skin] 09-07-2018 Episodic Other nutritional; endocrine; and metabolic disorders (20 sources) Obese class I; Translations: [Obesity, unspecified] Onset: 8 11-24-2017 Chronic Other nutritional; endocrine; and metabolic disorders (7 sources) Obesity 09-19-2022 Chronic Residual codes; unclassified [...] IMPLANTS] Onset: 9 Chronic Residual codes; unclassified (7 sources) Sleep apnea 09-19-2022 Chronic Comment on above: uses Bipap Residual codes; unclassified (3 sources) Obstructive sleep apnea (adult) (pediatric); Translations: [Obstructive sleep apnea (adult)(pediatric)] Onset: 1 09-26-2023 Chronic Residual codes; unclassified (6 sources) Altered mental status; Translations: [Altered mental status, unspecified] 02-10-2017 Episodic Residual codes; unclassified (1 source) H/O: Disorder; Translations: [Personal history of other specified conditions] Onset: 3 Episodic Residual codes; unclassified (1 source) Family history of kidney disease; Translations: [Family history of disorders of kidney and ureter] Onset: 3 Episodic Residual codes; unclassified (5 sources) Family history of renal stone 03-04-2023 Episodic Spondylosis; intervertebral disc disorders; other back problems (5 sources) Tenderness of neck; Translations: [Cervicalgia] Onset: 4 Episodic Sprains and strains (2 sources) Strain of unspecified muscle, fascia and tendon at shoulder and upper arm level, right arm, initial encounter; Translations: [Sprain of unspecified site of left knee, initial encounter] Onset: 7 Episodic Substance-related disorders (6 sources) Smoker 09-21-2022 Chronic Comment on above: Added secondary to d ocumentation in Social History. Superficial injury; contusion (3 sources) Contusion of lower back and pelvis, initial encounter; Translations: [Contusion of other part of head, initial encounter] Onset: 2 Episodic Unclassified (2 sources) LOW BACK PAIN, UNSPECIFIED; Translations: [LOW BACK PAIN, UNSPECIFIED] Onset: 3 Unclassified (1 source) CONTACT W/AND (SUSP) EXPOS COVID-19; Translations: [CONTACT W/AND (SUSP) EXPOS COVID-19] Onset: 2 Unclassified (7 sources) vagel nerve stimulator 05-23-2010 Unclassified (5 sources) Obstructive hydronephrosis 02-25-2023 Unclassified (1 source) Low back pain, unspecified; Translations: [Low back pain, unspecified] Onset: 4 Unclassified (1 source) pain left knee Onset: 4 Unclassified (1 source) Dx: Left knee pain, unspecified chronicity (M25.562) Onset: 3 Past or Other Problems Problem Classification Problem Date Documented Date Episodic/Chronic Diabetes mellitus without complication (1 source) Other abnormal glucose; Translations: [OTHER ABNORMAL GLUCOSE] Onset: 10-01-2021 Episodic Other aftercare (1 source) Encounter for therapeutic drug level monitoring; Translations: [Encounter for therapeutic drug level monitoring] Onset: 08-26-2023 Episodic Other connective tissue disease (3 sources) Pain in left upper arm; Translations: [PAIN IN LEFT UPPER ARM] Onset: 09-14-2021 Episodic Other lower respiratory disease (2 sources) Hypoxemia; Translations: [Hypoxemia] Onset: 09-23-2023 09-26-2023 Episodic Other nervous system disorders (20 sources) Acute postoperative pain; Translations: [Other acute postprocedural pain] Onset: 09-21-2020 09-21-2020 Episodic Other nervous system disorders (1 source) Other acute postprocedural pain; Translations: [Acute postoperative pain] Onset: 09-21-2020 Episodic Other non-traumatic joint disorders (2 sources) Pain in left knee; Translations: [Pain of left knee joint] Onset: 04-22-2023 Episodic Other non-traumatic joint disorders (1 source) Knee pain Onset: 07-16-2023 Episodic Other screening for suspected conditions (not mental disorders or infectious disease) (1 source) Encounter for screening for malignant neoplasm of prostate; Translations: [ENC SCREEN MALIG NEOPLASM PROSTATE] Onset: 10-01-2021 Episodic Poisoning by other medications and drugs (5 sources) Poisoning by unspecified drugs, medicaments and biological substances, accidental (unintentional), initial encounter; Translations: [Overdose] Onset: 09-23-2023 09-23-2023 Episodic Residual codes; unclassified (1 source) Presence of other specified devices; Translations: [PRESENCE OF OTHER SPECIFIED DEVICES] Onset: 01-07-2022 Episodic Residual codes; unclassified (1 source) Altered mental status, unspecified; Translations: [Altered mental status, unspecified] Onset: 09-26-2023 Episodic Respiratory failure; insufficiency; arrest (adult) (20 sources) Respiratory failure; Translations: [Respiratory failure, unspecified, unspecified whether with hypoxia or hypercapnia] Onset: 04-07-2016 Resolved: 03-26-2019 04-07-2016 Episodic Comment on above: respiratory failure requiring intubation after suicide attempt in 2016 Screening and history of mental health and substance abuse codes (20 sources) H/O: attempted suicide; Translations: [Hx of suicide attempt] Onset: 04-07-2016 04-07-2016 Episodic Suicide and intentional self-inflicted injury (17 sources) Suicide attempt ; Translations: [Suicidal thoughts] Onset: 09-23-2023 09-19-2022 Episodic Comment on above: 2015 Unclassified (1 source) LOW BACK PAIN, UNSPECIFIED; Translations: [LOW BACK PAIN, UNSPECIFIED] Onset: 07-28-2022 Results Test Name Value Interpretation Reference Range Facility [facility] 03-17-2024 [facility] Telephone (PSYAEM) -- JAYE COLES ([id number]) 1980 M Date Time Provider Department 03/17/24 SOBEIDA GALVAN During your visit today, we recorded the following information about you: Sobeida Galvan MD 03/17/2024 12:46 PM Signed Called patient. He noted he had a fever. Denies suicidal ideation. Allergies As of Date: 03/17/2024 Noted Allergy Reaction KEPPRA (LEVETIRACETAM) 07/31/2010 14 - Other: See Comments Comments: Increases his ADHD KETOROLAC TROMETHAMINE 09/14/2016 16 - Unknown Comments: unknown PRISTIQ (DESVENLAFAXINE) 01/12/2014 14 - Other: See Comments Comments: sz Date Reviewed: 11/03/2023 Reviewed by: Kanika Bennett APRN.[employer] - Fully Assessed Prescriptions as of 03/17/2024 - lurasidone (LATUDA) 20 mg tablet Take 1 tablet by mouth daily with breakfast. - AIMOVIG AUTOINJECTOR 140 mg/mL auto-injector INJECT 1ML SUBCUTANEOUSLY EVERY MONTH - clonazePAM (KLONOPIN) 2 mg tablet Take 1 tablet by mouth three times a day for 180 days. - cloNIDine HCl (CATAPRES) 0.1 mg tablet TAKE 1 TABLET BY MOUTH TWICE A DAY - rizatriptan (MAXALT-ENVIRONMENTAL SERVICES WORKER) 10 mg disintegrating tablet Take 1 tablet (10 mg) by mouth as needed (at onset of headache. May repeat after 2 hours.). Do not exceed 30 mg per day. - lurasidone (LATUDA) 80 mg tablet Take 1 tablet by mouth once daily. - lacosamide (VIMPAT) 100 mg tab Take 1 tablet by mouth two times a day for 180 days. - sertraline (ZOLOFT) 100 mg tablet take 3 tablets by mouth once daily - QUEtiapine (SEROQUEL) 200 mg tablet take 1 tablet by mouth every night at bedtime - simvastatin (ZOCOR) 20 mg tablet Take 20 mg by mouth every evening. - ibuprofen (MOTRIN) 800 mg tablet Take 800 mg by mouth three times a day as needed. - diclofenac, EC, (VOLTAREN) 75 mg EC tablet Take 1 tablet by mouth every 12 hours. - promethazine (PHENERGAN) 25 mg tablet 1 po tid prn headache or nausea - QUEtiapine (SEROQUEL) 50 mg tablet take 1 tablet by mouth three times daily as needed for anxiety - nadolol (CORGARD) 80 mg tablet Take [...] and PS 4-8cmh2O. His DME company is [place] , new mask to fit patient preference, [...] (FLONASE) 50 mcg/actuation nasal spray Use 1 [place] in each nostril twice daily. - albuterol HFA (PROVENTIL HFA, VENTOLIN HFA) 90 mcg/actuation inhaler Inhale 1-2 Puffs as instructed as needed for Wheezing/Shortness of Breath. Problem List As Of Date 03/17/2024 Noted Resolved Epilepsy (HCC) [G40.909] 06/18/2004 Epilepsy with altered consciousness without int*07/31/2010 Depression with anxiety [F41.8] 01/12/2014 Respiratory failure requiring intubation (HCC) *04/07/2016 Acute respiratory failure (HCC) [J96.00] 04/07/2016 03/26/2019 Hx of suicide attempt [Z91.51] 04/07/2016 Bipolar II disorder (HCC) [F31.81] 07/02/2016 Obesity, Class I, BMI 30-34.9 [E66.811] 11/24/2017 Partial epilepsy with impairment of consciousne*01/12/2018 Gastroesophageal reflux disease without esophag*02/03/2018 S/P placement of VNS (vagus nerve stimulation) *12/20/2018 Psychophysiologic insomnia [F51.04] 06/20/2020 HIMA (obstructive sleep apnea) [G47.33] 06/20/2020 Generalized epilepsy (HCC) [G40.309] 09/20/2020 Acute postoperative pain [G89.18] 09/21/2020 Complex partial seizures evolving to generalize*02/12/2021 Recurrent major depression in partial remission*09/02/2021 Migraine without aura, intractable, with status*12/22/2022 Severe mixed bipolar I disorder without psychot*05/12/2023 Post-traumatic stress disorder, chronic [F43.12]05/12/2023 Anxiety disorder [F41.9] 05/12/2023 Bipolar I disorder, most recent episode depress*05/27/2023 HTN (hypertension) [I10] 08/26/2023 Encounter Status:[facility] -- JAYE COLES ([id number]) 1980 M Date Time Provider Department 03/16/24 SOBEIDA GALVAN PSYAEM During your visit today, we recorded the following information about you: Sobeida Galvan MD 03/16/2024 3:00 PM Signed Called patient back. Patient reports he is a little better than before. Denies suicidal ideation. Spoke to STRAIGHT CUTTER MACHINE at PCP's office. Gave her a head's up . Allergies As of Date: 03/16/2024 Noted Allergy Reaction KEPPRA (LEVETIRACETAM) 07/31/2010 14 - Other: See Comments Comments: Increases his ADHD KETOROLAC TROMETHAMINE 09/14/2016 16 - Unknown Comments: unknown PRISTIQ (DESVENLAFAXINE) 01/12/2014 14 - Other: See Comments Comments: sz Date Reviewed: 11/03/2023 Reviewed by: Kanika Bennett APRN.[employer] - Fully Assessed Prescriptions as of 03/16/2024 - lurasidone (LATUDA) 20 mg tablet Take 1 tablet by mouth daily with breakfast. - AIMOVIG AUTOINJECTOR 140 mg/mL auto-injector INJECT 1ML SUBCUTANEOUSLY EVERY MONTH - clonazePAM (KLONOPIN) 2 mg tablet Take 1 tablet by mouth three times a day for 180 days. - cloNIDine HCl (CATAPRES) 0.1 mg tablet TAKE 1 TABLET BY MOUTH TWICE A DAY - rizatriptan (MAXALT-ENVIRONMENTAL SERVICES WORKER) 10 mg disintegrating tablet Take 1 tablet (10 mg) by mouth as needed (at onset of headache. May repeat after 2 hours.). Do not exceed 30 mg per day. - lurasidone (LATUDA) 80 mg tablet Take 1 tablet by mouth once daily. - lacosamide (VIMPAT) 100 mg tab Take 1 tablet by mouth two times a day for 180 days. - sertraline (ZOLOFT) 100 mg tablet take 3 tablets by mouth once daily - QUEtiapine (SEROQUEL) 200 mg tablet take 1 tablet by mouth every night at bedtime - simvastatin (ZOCOR) 20 mg tablet Take 20 mg by mouth every evening. - ibuprofen (MOTRIN) 800 mg tablet Take 800 mg by mouth three times a day as needed. - diclofenac, EC, (VOLTAREN) 75 mg EC tablet Take 1 tablet by mouth every 12 hours. - promethazine (PHENERGAN) 25 mg tablet 1 po tid prn headache or nausea - QUEtiapine (SEROQUEL) 50 mg tablet take 1 tablet by mouth three times daily as needed for anxiety - nadolol (CORGARD) 80 mg tablet Take [...] and PS 4-8cmh2O. His DME company is [place] , new mask to fit patient preference, [...] (FLONASE) 50 mcg/actuation nasal spray Use 1 [place] in each nostril twice daily. - albuterol HFA (PROVENTIL HFA, VENTOLIN HFA) 90 mcg/actuation inhaler Inhale 1-2 Puffs as instructed as needed for Wheezing/Shortness of Breath. Problem List As Of Date 03/16/2024 Noted Resolved Epilepsy ([facility]) [G40.909] 06/18/2004 Epilepsy with altered consciousness without int*07/31/2010 Depression with anxiety [F41.8] 01/12/2014 Respiratory failure requiring intubation ([facility]) *04/07/2016 Acute respiratory failure ([facility]) [J96.00] 04/07/2016 03/26/2019 Hx of suicide attempt [Z91.51] 04/07/2016 Bipolar II disorder ([facility]) [F31.81] 07/02/2016 Obesity, Class I, BMI 30-34.9 [E66.811] 11/24/2017 Partial epilepsy with impairment of consciousne*01/12/2018 Gastroesophageal reflux disease without esophag*02/03/2018 S/P placement of VNS (vagus nerve stimulation) *12/20/2018 Psychophysiologic insomnia [F51.04] 06/20/2020 HIMA (obstructive sleep apnea) [G47.33] 06/20/2020 Generalized epilepsy (HCC) [G40.309] 09/20/2020 Acute postoperative pain [G89.18] 09/21/2020 Complex partial seizures evolving to generalize*02/12/2021 Recurrent major depression in partial remission*09/02/2021 Migraine without aura, intractable, with status*12/22/2022 Severe mixed bipolar I disorder without psychot*05/12/2023 Post-traumatic stress disorder, chronic [F43.12]05/12/2023 Anxiety disorder [F41.9] 05/12/2023 Bipolar I disorder, most recent episode depress*05/27/2023 HTN (hypertension) [I10] 08/26/2023 Encounter Status:Closed by SOBEIDA GALVAN on 03/16/24 [facility] 03-03-2024 [facility]NP[facility] Telephone ([id number]) -- SUSANAMANJITJAYE Carmen ([id number]) 1980 Date Time Provider Department 03/03/24 JOHANN AWAD NE50MN During your visit today, we recorded the following information about you: Amber Melchor 03/03/2024 10:51 AM Signed General call : Full name of person calling: Jaye Coles Relationship to patient: self Phone # : [phone] Reason for call: Patient called and said that he needs a letter to take to his employer stating that he was at his office visit on 08/26/23 and 08/31/23. Patient of Geovanna Ochoa RN 03/03/2024 2:28 PM Signed 08/26/[address] Awad ====== 08/31/[address] Awad VNS revision ====== Letter completed sent to LEISA Arroyo to review via [employer] NICHOLAS Falk Morgan, PA-C 03/03/2024 2:29 PM Signed Letter signed Allergies As of Date: 03/03/2024 Noted Allergy Reaction KEPPRA (LEVETIRACETAM) 07/31/2010 14 - Other: See Comments Comments: Increases his ADHD KETOROLAC TROMETHAMINE 09/14/2016 16 - Unknown Comments: unknown PRISTIQ (DESVENLAFAXINE) 01/12/2014 14 - Other: See Comments Comments: sz Date Reviewed: 11/03/2023 Reviewed by: Kanika Bennett APRN.SUPERVISOR [employer] - Fully Assessed Reason for Visit: Letter [264] Cmt: Letter for work Prescriptions as of 03/03/2024 - lurasidone (LATUDA) 20 mg tablet Take 1 tablet by mouth daily with breakfast. - AIMOVIG AUTOINJECTOR 140 mg/mL auto-injector INJECT 1ML SUBCUTANEOUSLY EVERY MONTH - clonazePAM (KLONOPIN) 2 mg tablet Take 1 tablet by mouth three times a day for 180 days. - cloNIDine HCl (CATAPRES) 0.1 mg tablet TAKE 1 TABLET BY MOUTH TWICE A DAY - rizatriptan (MAXALT-ENVIRONMENTAL SERVICES WORKER) 10 mg disintegrating tablet Take 1 tablet (10 mg) by mouth as needed (at onset of headache. May repeat after 2 hours.). Do not exceed 30 mg per day. - lurasidone (LATUDA) 80 mg tablet Take 1 tablet by mouth once daily. - lacosamide (VIMPAT) 100 mg tab Take 1 tablet by mouth two times a day for 180 days. - sertraline (ZOLOFT) 100 mg tablet take 3 tablets by mouth once daily - QUEtiapine (SEROQUEL) 200 mg tablet take 1 tablet by mouth every night at bedtime - simvastatin (ZOCOR) 20 mg tablet Take 20 mg by mouth every evening. - ibuprofen (MOTRIN) 800 mg tablet Take 800 mg by mouth three times a day as needed. - diclofenac, EC, (VOLTAREN) 75 mg EC tablet Take 1 tablet by mouth every 12 hours. - promethazine (PHENERGAN) 25 mg tablet 1 po tid prn headache or nausea - QUEtiapine (SEROQUEL) 50 mg tablet take 1 tablet by mouth three times daily as needed for anxiety - nadolol (CORGARD) 80 mg tablet Take [...] and PS 4-8cmh2O. His DME company is [place] , new mask to fit patient preference, [...] (FLONASE) 50 mcg/actuation nasal spray Use 1 [place] in each nostril twice daily. - albuterol HFA (PROVENTIL HFA, VENTOLIN HFA) 90 mcg/actuation inhaler Inhale 1-2 Puffs as instructed as needed for Wheezing/Shortness of Breath. Problem List As Of Date 03/03/2024 Noted Resolved Epilepsy (HCC) [G40.909] 06/18/2004 Epilepsy with altered consciousness without int*07/31/2010 Depression with anxiety [F41.8] 01/12/2014 Respiratory failure requiring intubation ([facility]) *04/07/2016 Acute respiratory failure ([facility]) [J96.00] 04/07/2016 03/26/2019 Hx of suicide attempt [Z91.51] 04/07/2016 Bipolar II disorder ([facility]) [F31.81] 07/02/2016 Obesity, Class I, BMI 30-34.9 [E66.811] 11/24/2017 Partial epilepsy with impairment of consciousne*01/12/2018 Gastroesophageal reflux disease without esophag*02/03/2018 S/P placement of VNS (vagus nerve stimulation) *12/20/2018 Psychophysiologic insomnia [F51.04] 06/20/2020 HIMA (obstructive sleep apnea) [G47.33] 06/20/2020 Generalized epilepsy (HCC) [G40.309] 09/20/2020 Acute postoperative pain [G89.18] 09/21/2020 Complex partial seizures evolving to generalize*02/12/2021 Recurrent major depression in partial remission*09/02/2021 Migraine without aura, intractable, with status*12/22/2022 Severe mixed bipolar I disorder without psychot*05/12/2023 Post-traumatic stress disorder, chronic [F43.12]05/12/2023 Anxiety disorder [F41.9] 05/12/2023 Bipolar I disorder, most rec (more content not included)... [facility] Telephone (EPIN) -- JAYE COLES ([id number]) 1980 M Date Time Provider Department 02/04/24 JESSENIA COUCH During your visit today, we recorded the following information about you: Jessenia Couch LISW 02/04/2024 1:41 PM Signed Please see encounters from this tech writer 11/23/23 and 12/17/23. ASSOCIATE ARTISTIC DIRECTOR called pt to check in and see if he has been able to find a therapist. [facility], requested a return call. Jessenia Couch LISW 02/04/2024 2:34 PM Signed ASSOCIATE ARTISTIC DIRECTOR received incoming call from patient. He reported he is going to group therapy 2x/week through [employer] as he works at [employer]. He stated he has case management still. He stated he reached out to a few therapists in his area for ongoing psychotherapy but has not been able to establish with anyone. He stated he is waiting to hear back from Medicare to provide him with a list of therapists near him to establish care. ASSOCIATE ARTISTIC DIRECTOR offered again to provide patient with some therapists who accept Medicare but offer virtual appointments across [place] and pt said he would like to wait to see if Medicare is able to give him any resources. No further needs right now, ASSOCIATE ARTISTIC DIRECTOR to call pt back in a few weeks for updates. Allergies As of Date: 02/04/2024 Noted Allergy Reaction KEPPRA (LEVETIRACETAM) 07/31/2010 14 - Other: See Comments Comments: Increases his ADHD KETOROLAC TROMETHAMINE 09/14/2016 16 - Unknown Comments: unknown PRISTIQ (DESVENLAFAXINE) 01/12/2014 14 - Other: See Comments Comments: sz Date Reviewed: 11/03/2023 Reviewed by: Kanika Bennett APRN.SUPERVISOR [employer] - Fully Assessed Reason for Visit: Social Work Services [507] Prescriptions as of 02/04/2024 - lurasidone (LATUDA) 20 mg tablet Take 1 tablet by mouth daily with breakfast. - AIMOVIG AUTOINJECTOR 140 mg/mL auto-injector INJECT 1ML SUBCUTANEOUSLY EVERY MONTH - clonazePAM (KLONOPIN) 2 mg tablet Take 1 tablet by mouth three times a day for 180 days. - cloNIDine HCl (CATAPRES) 0.1 mg tablet TAKE 1 TABLET BY MOUTH TWICE A DAY - rizatriptan (MAXALT-ENVIRONMENTAL SERVICES WORKER) 10 mg disintegrating tablet Take 1 tablet (10 mg) by mouth as needed (at onset of headache. May repeat after 2 hours.). Do not exceed 30 mg per day. - lurasidone (LATUDA) 80 mg tablet Take 1 tablet by mouth once daily. - lacosamide (VIMPAT) 100 mg tab Take 1 tablet by mouth two times a day for 180 days. - sertraline (ZOLOFT) 100 mg tablet take 3 tablets by mouth once daily - QUEtiapine (SEROQUEL) 200 mg tablet take 1 tablet by mouth every night at bedtime - simvastatin (ZOCOR) 20 mg tablet Take 20 mg by mouth every evening. - ibuprofen (MOTRIN) 800 mg tablet Take 800 mg by mouth three times a day as needed. - diclofenac, EC, (VOLTAREN) 75 mg EC tablet Take 1 tablet by mouth every 12 hours. - promethazine (PHENERGAN) 25 mg tablet 1 po tid prn headache or nausea - QUEtiapine (SEROQUEL) 50 mg tablet take 1 tablet by mouth three times daily as needed for anxiety - nadolol (CORGARD) 80 mg tablet Take [...] and PS 4-8cmh2O. His DME company is [employer] , [employer] mask to fit patient preference, ramp, humidification [...] (FLONASE) 50 mcg/actuation nasal spray Use 1 [place] in each nostril twice daily. - albuterol HFA (PROVENTIL HFA, VENTOLIN HFA) 90 mcg/actuation inhaler Inhale 1-2 Puffs as instructed as needed for Wheezing/Shortness of Breath. Problem List As Of Date 02/04/2024 Noted Resolved Epilepsy (HCC) [G40.909] 06/18/2004 Epilepsy [...] [G89.18] 09/21/2020 Complex partial seizures evolving to gener (more content not included)... Normal [facility] XR SPINE LUMBAR 2 OR 3 VWSon 01-20-2024 XR SPINE LUMBAR 2 OR 3 VWS XR SPINE LUMBAR 2 OR 3 VWS LUMBAR SPINE 3 VIEWS HISTORY: Chronic low back pain COMPARISON: None IMPRESSION: * Lumbar vertebral body heights and alignment are preserved. No pathologic change in alignment between flexion and extension. * Mild multilevel endplate degenerative change. Finalized by Jayesh Blackwood MD on 01/20/2024 10:17 AM Normal [facility] XR SPINE THORACIC MIN 4 VWSo n 01-19-2024 XR SPINE THORACIC MIN 4 VWS XR SPINE THORACIC MIN 4 VWS XR SPINE THORACIC MIN 4 VWS History: Chronic thoracic spine pain Impression: * No acute findings. * No fracture or destructive lesion. * Diffuse disc disease and facet arthritis. . * Consider MRI if the patient has not had a recent MRI, if you suspect occult process Finalized by Marcos Bernal MD on 01/19/2024 3:04 PM Normal [facility] CNPNon 12-31-2023 CNPN Telephone (PSYRMN) -- JAYE COLES ([id number]) 1980 M Date Time Provider Department 12/31/23 SOBEIDA GALVAN PSYRMN During your visit today, we recorded the following information about you: Jazmin Mendez 12/31/2023 2:28 PM Signed Patient called stating employer needs a start and end date on the letter from Dr. Rider. Patient expressed frustration with his situation. He was told to speak with the medical leave [employer], who stated that was only to protect his job, they stated he should talk to the HR. Advised patient I would ask Dr. Rider to put dates on the letter, and maybe HR will be able to help him navigate this effectively. Jazmin Rangel Export Freight Clerk Sobeida Galvan MD 12/31/2023 2:46 PM Signed Spoke to patient. He reported multiple hoops he has been asked to jump through to put in his 2 week notice. Provided validation. He denies suicidal/homicidal ideation. Allergies As of Date: 12/31/2023 Noted Allergy Reaction KEPPRA (LEVETIRACETAM) 07/31/2010 14 - Other: See Comments Comments: Increases his ADHD KETOROLAC TROMETHAMINE 09/14/2016 16 - Unknown Comments: unknown PRISTIQ (DESVENLAFAXINE) 01/12/2014 14 - Other: See Comments Comments: sz Date Reviewed: 11/03/2023 Reviewed by: Kanika Bennett APRN.SUPER[employer]OR [employer] - Fully Assessed Prescriptions as of 12/31/2023 - cloNIDine HCl (CATAPRES) 0.1 mg tablet TAKE 1 TABLET BY MOUTH TWICE A DAY - rizatriptan (MAXALT-ENVIRONMENTAL SERVICES WORKER) 10 mg disintegrating tablet Take 1 tablet (10 mg) by mouth as needed (at onset of headache. May repeat after 2 hours.). Do not exceed 30 mg per day. - lurasidone (LATUDA) 80 mg tablet Take 1 tablet by mouth once daily. - lacosamide (VIMPAT) 100 mg tab Take 1 tablet by mouth two times a day for 180 days. - sertraline (ZOLOFT) 100 mg tablet take 3 tablets by mouth once daily - QUEtiapine (SEROQUEL) 200 mg tablet take 1 tablet by mouth every night at bedtime - clonazePAM (KLONOPIN) 2 mg tablet Take 1 tablet by mouth three times a day for 180 days. Take one(1) tablet three times daily. - AIMOVIG AUTOINJECTOR 140 mg/mL auto-injector INJECT 1 ML SUBCUTANEOUSLY ONCE EVERY MONTH. - simvastatin (ZOCOR) 20 mg tablet Take 20 mg by mouth every evening. - ibuprofen (MOTRIN) 800 mg tablet Take 800 mg by mouth three times a day as needed. - diclofenac, EC, (VOLTAREN) 75 mg EC tablet Take 1 tablet by mouth every 12 hours. - promethazine (PHENERGAN) 25 mg tablet 1 po tid prn headache or nausea - QUEtiapine (SEROQUEL) 50 mg tablet take 1 tablet by mouth three times daily as needed for anxiety - nadolol (CORGARD) 80 mg tablet Take [...] and PS 4-8cmh2O. His DME company is [employer] , new mask to fit patient preference, [...] (FLONASE) 50 mcg/actuation nasal spray Use 1 [place] in each nostril twice daily. - albuterol HFA (PROVENTIL HFA, VENTOLIN HFA) 90 mcg/actuation inhaler Inhale 1-2 Puffs as instructed as needed for Wheezing/Shortness of Breath. Problem List As Of Date 12/31/2023 Noted Resolved Epilepsy ([facility]) [G40.909] 06/18/2004 Epilepsy with altered consciousness without int*07/31/2010 Depression with anxiety [F41.8] 01/12/2014 Respiratory failure requiring intubation ([facility]) *04/07/2016 Acute respiratory failure ([facility]) [J96.00] 04/07/2016 03/26/2019 Hx of suicide attempt [Z91.51] 04/07/2016 Bipolar II disorder ([facility]) [F31.81] 07/02/2016 Obesity, Class I, BMI 30-34.9 [...] remission*09/02/2021 Migraine without aura, intractable, with status*12/22/2022 Severe mixed bipolar I disorder without psychot*05/12/2023 Post-traumatic stress disorder, chronic [F43.12]05/12/2023 Anxiety disorder [F41.9] 05/12/2023 Bipolar I disorder, most recent epis (more content not included)... Normal [facility] CNCOon 12-30-2023 CNCO Letter Text Letter Text Normal [facility] CT Abdomen/Pelvis w/ Contras ton 12-02-2023 CT Abdomen/Pelvis w/ Contrast Exam Date/Time: 12/01/2023 20:18 EDT Reason for Exam: Pain Report IMPRESSION: NO ACUTE INTRA-ABDOMINAL PROCESS OR SIGNIFICANT CHANGE FROM 01/04/2016 IDENTIFIED. EXAM: CT Abdomen/Pelvis w/ Contrast DATE: 12/01/2023 8:13 PM CLINICAL HISTORY: Pain. COMPARISON: 01/04/2016. TECHNIQUE: Spiral imaging was obtained of the abdomen and pelvis after the uneventful infusion of approximately 100 mL of Isovue [address] scans at this facility use dose modulation, iterative reconstruction, and/or weight based dosing when appropriate to reduce radiation dose to as low as reasonably achievable. Unless otherwise stated, incidental findings identified in this report do not require routine follow-up imaging. FINDINGS: Liver: No enlargement, significant fatty infiltration, suspicious mass or lesion. Biliary: The gallbladder is unremarkable. No abnormal biliary ductal dilatation. Pancreas: No mass, organized fluid collection, or abnormal pancreatic ductal dilatation. Spleen: Unremarkable. Adrenals: Unremarkable. Kidneys: No hydronephrosis, significant urinary tract calculi, or suspicious mass. GI tract: No abnormal dilation or wall thickening. The appendix has been removed. Lymph nodes: No pathologically enlarged lymph nodes. Mesentery/peritoneum: No ascites or mass. Retroperitoneum: No inflammatory changes or mass. Pelvis: The urinary bladder is unremarkable. No mass, organized fluid collection, or ascites. Vasculature: No aneurysm or dissection. Musculoskeletal: No acute osseous findings. Small fat-containing inguinal hernias, unchanged from 01/04/2016. Lower thorax: Noncontributory. Report Ordering Provider: Virgil Dozier FINAL REPORT Dictated: 12/02/2023 8:10 am Rosendo Shepherd MD Signed (Electronic Signature): 12/02/2023 8:10 am Signed by: Rosendo Shepherd MD Transcribed by: LOLA Technologist: MARY KATE Technical Comments GFR (mL/min/1/73m2) >60 Contrast: Isovue 300 Contrast amount in ml's: 100 Rectal Contrast Given? No Normal [facility] ED Clinical Summaryon 2023 ED Clinical Summary ED Clinical Summary [address] [address] ED Clinical Summary Person Information Name: JAYE COLES Clemencia/[facility] Age: 43 Years : 1980 Sex: Male Language: Indian PCP: Uriel Nunez MD Marital Status: Single Phone: [phone] Visit Id: Visit Reason: Nausea; Flank pain; Abdominal problem; SHARP BURNING PAIN IN LT LOWER FRONT ,TIGHTNESS IN CHEST Speciality: Acuity: 3 Enc Type: Emergency Med Service: Emergency Arrival: 12/01/2023 19:23:25 Discharge: 12/02/2023 00:03:18 LOS: 000 04:40 Checkin: 12/01/2023 19:23:25 Checkout: 12/02/2023 00:03:18 Dispo Type: Home (Routine DC) EVENTS: Event Name Event Status Request Date/Time Start Date/Time Complete Date/Time Arrive Complete 12/01/2023 19:23:25 12/01/2023 19:23:25 12/01/2023 19:23:25 Document Home Meds Request 12/01/2023 19:23:25 Triage Complete 12/01/2023 19:23:25 12/01/2023 19:37:16 12/01/2023 19:37:16 Pending Labs Complete 12/01/2023 19:41:45 12/01/2023 20:34:51 Lab Complete 12/01/2023 19:41:45 12/01/2023 20:31:40 Bed Assign Complete 12/01/2023 19:42:16 12/01/2023 19:42:16 12/01/2023 19:42:16 Dr Exam Complete 12/01/2023 19:42:16 12/01/2023 19:47:00 12/01/2023 19:47:00 RN Exam Complete 12/01/2023 19:42:16 12/01/2023 20:35:45 12/01/2023 20:35:45 Registration Complete 12/01/2023 19:47:00 12/01/2023 20:11:17 12/01/2023 20:11:17 CT Complete 12/01/2023 19:50:39 12/01/2023 20:13:10 12/01/2023 20:18:38 Meds Admin Complete 12/01/2023 19:50:56 12/01/2023 20:23:06 Reg Complete Request 12/01/2023 20:11:17 Reg Bed Request Complete 12/01/2023 20:11:17 12/01/2023 20:11:17 12/01/2023 20:11:17 Pending Labs Complete 12/01/2023 20:11:47 12/01/2023 20:11:47 12/01/2023 20:31:40 Lab Complete 12/01/2023 20:11:47 12/01/2023 20:11:47 12/01/2023 20:31:40 Pending Labs Complete 12/01/2023 20:12:08 12/01/2023 20:12:08 12/01/2023 20:12:09 Meds Admin Complete 12/01/2023 22:28:09 12/01/2023 22:31:07 Discharge Complete 12/01/2023 23:00:10 12/02/2023 00:03:24 12/02/2023 00:03:24 Transfer Complete 12/02/2023 00:03:24 12/02/2023 00:03:24 12/02/2023 00:03:24 ADDRESS: [address] [place] [id number] PHYS DOC NOTES: MEDICAL INFORMATION: Prescriptions Given: New Medications [id number], [address], [place] [id number], [phone] dicyclomine (Bentyl 10 mg Cap) 1 Capsules By Mouth 4 times a day for 7 Days. Refills: 0. ondansetron (Zofran ODT 4 mg Tab-Dis) 1 Tablets By Mouth every 8 hours as needed Nausea/Vomiting. Refills: 0. Medications to Continue with No Changes Other Medications cyproheptadine (cyproheptadine 4 mg Tab) diclofenac (diclofenac sodium 75 mg Oral EC Tab) diclofenac topical (Voltaren Gel 1% Gel) 1 Application Topical 4 times a day as needed for pain. Refills: 0. lacosamide 100 Milligram By Mouth 3 times [...] (in the evening). PATIENT EDUCATION INFORMATION: Instructions: Abdominal Pain, Adult Follow up: With: Address: When: Uriel Nunez [address] [place], [place] [id number] Business (1) In 3 days DIAGNOSIS: AP (abdominal pain) Normal [facility] ED Patient Summaryon ED Patient Summary ED Patient Summary [address] [address] Patient Discharge Instructions Person Information Name: JAYE COLES Age: 43 Years Arrival Date: 12/01/2023 19:23:25 Discharge Diagnosis: AP (abdominal pain) Primary Care Physician: Uriel Nunez MD Provider Information Primary Provider: Virgil Dozier DO Advanced Senior Oracle Database Developer:None The exam and treatment you received in the Emergency Department were for an urgent problem and are not intended as complete care. It is important that you follow up with a doctor, nurse practitioner, or physician?s medical support assistant for ongoing care. If your symptoms become worse or you do not improve as expected and you are unable to reach your usual health care provider, you should return to the Emergency Department. We are available 24 hours a day. JAYE COLES has been given the following list of patient education materials, prescriptions and follow-up instructions: Follow-up Instructions: With: Address: When: Uriel Nunez [address] [place] [id number] [employer] (1) In 3 days In the event that this physician does not participate in your insurance network, please consult with your insurance company to find a nearby participating provider. Patient Education Materials: Abdominal Pain, Adult A MESSAGE TO ALL PATIENTS REGARDING OPIOIDS PRESCRIPTION OPIOIDS: WHAT YOU NEED TO KNOW Prescription opioids can be used to help relieve wiqtblyt-my-bfgkwx pain and are often prescribed following a [...] guidance from the Food and Drug Administration (www.fda.gov/Drugs/Resourc esForYou). ? Visit www.cdc.gov/drugoverdose to learn about the risks of opioids abuse and overdose. ? If you believe you may be struggling with addiction, tell your health family day care worker and ask for guidance or call [facility] National Helpline at 9-501-375-DXNL. u Source: [facility] (more content not included)... Normal [facility] BMPon 12-01-2023 Anion gap [Moles/Vol] 12 mmol/L Normal 6-16 [facility] Comment on above: Performed By: #### 2 [id number] #### [facility] [address] [place] [address] Calcium [Mass/Vol] 9.6 mg/dL Normal 8.9-11.1 [facility] Comment on above: Performed By: #### 2 [id number] #### [facility] [address] [place] [address] Chloride [Moles/Vol] 100 mmol/L Low 101-111 [facility] Comment on above: Performed By: #### 2 [id number] #### [facility] [address] [place] [address] CO2 [Moles/Vol] 28 mmol/L Normal 21-31 [facility] Comment on above: Performed By: #### 2 [id number] #### [facility] [address] [place] [address] Creatinine [Mass/Vol] 0.7 mg/dL Normal 0.5-1.3 [facility] Comment on above: Performed By: #### 2 [id number] #### [facility] [address] [place] [address] Glucose [Mass/Vol] 120 mg/dL Normal 55-199 [facility] Comment on above: Performed By: #### 2 [id number] #### [facility] [address] [place] [address] Potassium [Moles/Vol] 4.0 mmol/L Normal 3.5-5.3 [facility] Comment on above: Performed By: #### 2 [id number] #### [facility] [address] [place] [address] Sodium [Moles/Vol] 136 mmol/L Normal 135-145 [facility] Comment on above: Performed By: #### 2 [id number] #### [facility] [address] [place] [address] Urea nitrogen [Mass/Vol] 13 mg/dL Normal 5-21 [facility] Comment on above: Performed By: #### 2 [id number] #### [facility] [address] [place] [address] Urea nitrogen/Creatinine [Mass ratio] 19 No Units Normal 10-20 [facility] Comment on above: Performed By: #### 2 [id number] #### [facility] [address] [place] [address] CBC w/ Auto Diffon 4 Basophils/100 WBC (Bld) 0.6 % Normal 0.0-2.0 [facility] Comment on above: Performed By: #### 2 [id number] #### [facility] [address] [place] [address] Basophils/Leukocytes Auto (Bld) [Pure # fraction] 0.1 E9/L Normal 0.0-0.2 [facility] Comment on above: Performed By: #### 2 [id number] #### [facility] [address] [place] [address] Eosinophils (Bld) [#/Vol] 0.2 E9/L Normal 0.0-0.5 [facility] Comment on above: Performed By: #### 2 [id number] #### [facility] [address] [place] [address] Eosinophils/100 WBC (Bld) 2.1 % Normal 0.0-8.0 [facility] Comment on above: Performed By: #### 2 [id number] #### [facility] [address] [place] [address] Erythrocyte distribution width (RBC) [Ratio] 13.8 % Normal 10.9-14.2 [facility] Comment on above: Performed By: #### 2 [id number] #### [facility] [address] [place] [address] Hematocrit (Bld) [Volume fraction] 45.6 % Normal 37.7-49.0 [facility] Comment on above: Performed By: #### 2 [id number] #### [facility] [address] [place] [address] Hemoglobin (Bld) [Mass/Vol] 16.1 g/dL Normal 13.5-17.5 [facility] Comment on above: Performed By: #### 2 [id number] #### [facility] [address] [place] [address] Lymphocytes (Bld) [#/Vol] 2.6 E9/L Normal 1.0-4.0 [facility] Comment on above: Performed By: #### 2 [id number] #### [facility] [address] [place] [address] Lymphocytes/100 WBC (Bld) 28.8 % Normal 14.0-50.0 [facility] Comment on above: Performed By: #### 2 [id number] #### [facility] [address] [place] [address] MCH (RBC) [Entitic mass] 29.9 pg Normal 27.0-34.0 [facility] Comment on above: Performed By: #### 2 [id number] #### [facility] [address] [place] [address] MCHC (RBC) [Mass/Vol] 35.3 g/dL Normal 31.4-36.0 [facility] Comment on above: Performed By: #### 2 [id number] #### [facility] [address] [place] [address] MCV (RBC) [Entitic vol] 84.9 fL Normal 80.0-100.0 [facility] Comment on above: Performed By: #### 2 [id number] #### [facility] [address] [place] [id number] Monocytes (Bld) [#/Vol] 0.6 E9/L Normal 0.2-1.0 [facility] Comment on above: Performed By: #### 2 [id number] #### [facility] [address] [place] [address] Neutrophils (Bld) [#/Vol] 5.5 E9/L Normal 2.0-7.5 [facility] Comment on above: Performed By: #### 2 [id number] #### [facility] [address] [place] [address] Neutrophils/100 WBC (Bld) 61.6 % Normal 36.0-75.0 [facility] Comment on above: Performed By: #### 2 [id number] #### [facility] [address] [place] [address] Platelet 320.0 E9/L Normal 150.0-500. 0 [facility] Comment on above: Performed By: #### 2 [id number] #### [facility] [address] [place] [address] Platelet mean volume (Bld) [Entitic vol] 7.1 fL Normal 6.4-10.8 [facility] Comment on above: Performed By: #### 2 [id number] #### [facility] [address] [place] [address] RBC (Bld) [#/Vol] 5.4 E12/L Normal 4.3-5.9 [facility] Comment on above: Performed By: #### 2 [id number] #### [facility] [address] [place] [address] WBC corrected for nucl RBC Auto (Bld) [#/Vol] 8.9 E9/L Normal 4.0-11.0 [facility] Comment on above: Performed By: #### 2 [id number] #### [facility] [address] [place] [address] CHEMISTRYOrdered By: SYSTEM SYSTEM on 12-01-2023 Albumin [Mass/Vol] 4.6 g/dL Normal 3.3 - 5.0 gm/dL Rem[facility] Chem Albumin/Globulin [Mass ratio] 1.7 {ratio} Normal 1.1 - 2.2 [facility] Chem ALP [Catalytic activity/Vol] 55 [iU]/d Normal 21 - 98 Int._Unit/ L [facility] Chem ALT No additional P-5'-P [Catalytic activity/Vol] 22 [iU]/d Normal 6 - 46 Int._Unit/ L [facility] Chem Anion gap [Moles/Vol] 12 mmol/L Normal 6 - 16 mEq/L [facility] Chem AST [Catalytic activity/Vol] 15 [iU]/d Normal 5 - 43 Int._Unit/ L [facility] Chem Bilirubin [Mass/Vol] 0.5 mg/dL Normal 0.0 - 1 .1 mg/dL [facility] Chem Bilirubin.direct [Mass/Vol] 0.1 mg/dL Normal 0.0 - 0.4 mg/dL [facility] Chem Bilirubin.indirect [Mass or moles/Vol] 0.4 mg/dL Normal 0.1 - 0.9 mg/dL [facility] Chem Calcium [Mass/Vol] 9.6 mg/dL Normal 8.9 - 11. 1 mg/dL [facility] Chloride [Moles/Vol] 100 mmol/L Low 101 - 1 11 mmol/L [facility] Chem CO2 [Moles/Vol] 28 mmol/L Normal 21 - 31 mmol/L [facility] Chem Creatinine [Mass/Vol] 0.7 mg/dL Normal 0.5 - 1.3 mg/dL [facility] Chem eGFR 119 mL/min/1.73 m2 Normal >=59mL/mi n /1.73 m2 [facility] Chem Globulin (S) [Mass/Vol] 2.7 g/dL Normal 1.4 - 4.0 gm/dL [facility] Chem Glucose [Mass/Vol] 120 mg/dL Normal 55 - 199 mg/dL [facility] Chem Lipase [Catalytic activity/Vol] 45 U/L Normal 13 - 58 unit/L [facility] Chem Potassium [Moles/Vol] 4.0 mmol/L Normal 3.5 - 5.3 mmol/L [facility] Chem Protein [Mass/Vol] 7.3 g/dL Normal 6.0 - 7.8 gm/dL [facility] Chem Sodium [Moles/Vol] 136 mmol/L Normal 135 - 145 mmol/L [facility] Chem Urea nitrogen [Mass/Vol] 13 mg/dL Normal 5 - 21 mg/dL [facility] Chem Urea nitrogen/Creatinine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 options. He plans to do this today. ASSOCIATE ARTISTIC DIRECTOR offered to meet with patient next week during his appts in clinic to discuss case management further and pt was amenable to this. ASSOCIATE ARTISTIC DIRECTOR plans to see patient next week and put a reminder in pt's appt notes to see pt during appt 11.03.23 Jessenia Couch LISW 11/03/2023 12:23 PM Signed ASSOCIATE ARTISTIC DIRECTOR informed patient's visits were changed to virtual due to pt having car issues. ASSOCIATE ARTISTIC DIRECTOR called patient to discuss if he was able to connect with someone about case management and had to LVM. This tech writer encouraged a call back. Jessenia Couch LISW 11/03/2023 12:59 PM Signed ASSOCIATE ARTISTIC DIRECTOR received a call back from patient. Patient reported he has chosen to not see his therapist through [facility] anymore because he does not feel they are a good fit anymore. He has spoken with his local crisis agency who is attempting to connect him with another therapist. Pt receives case management and group therapy through [facility] and the crisis center is assisting him in assuring he will be able to access these services even if he does not see his current therapist. Next steps right now are for pt to call the crisis center to ask them to move forward with this plan. Pt did not have further questions at this point but asked that this tech writer send him a message to assure they are able to connect in the next few weeks. message sent. ASSOCIATE ARTISTIC DIRECTOR to follow up with patient next week. Allergies As of Date: 10/13/2023 Noted Allergy Reaction KEPPRA (LEVETIRACETAM) 07/31/2010 14 - Other: See Comments Comments: Increases his ADHD KETOROLAC TROMETHAMINE 09/14/2016 16 - Unknown Comments: unknown PRISTIQ (DESVENLAFAXINE) 01/12/2014 14 - Other: See Comments Comments: sz Date Reviewed: 08/31/2023 Reviewed by: Pam Palomares RN - Fully Assessed Reason for Visit: Social Work Services [507] Prescriptions as of 11/03/2023 - cloNIDine HCl (CATAPRES) 0.1 mg tablet Take 1 tablet by (more content not included)... Normal [facility] ECG 12 lead ECGon 09-27-2023 ECG 12 lead ECG [facility] [place] [address] Electrocardiograph Report Signed Patient: Jaye Coles MR#: [id number] 3 : 1980 Acct:[id number] Age/Sex: 42 / M ADM Date: 09/26/23 Loc: Room: [address] [place] [address] Type: ADM IN Attending Dr: Taiwo Trujillo MD Ordering Provider: Taiwo Trujillo MD Date of Service: 09/27/2305/10/500 ECG/ECG 12 lead ECG: New Admit Copies to: Test Reason : Blood Pressure : / mmHG Vent. Rate : 090 BPM Atrial Rate : 090 BPM P-R Int : 158 ms QRS Dur : 102 ms QT Int : 362 ms P-R-T Axes : 030 029 036 degrees QTc Int : 442 ms Normal sinus rhythm Normal ECG When compared with ECG of 24-SEP-2023 08:36, T wave inversion no longer evident in Inferior leads Confirmed by AMBREEN [facility] SERVICES[facility] ([id number]) on 09/27/2023 2:52:36 PM Referred By: Electronically Signed By:SAAD WELCH MD FAC Transcribed By: MUS Signed By Johann Welch MD 09/27/23 1452 Normal [facility] Lipid Panelon 09-27-2023 Cholesterol [Mass/Vol] 247 mg/dL High 140-200 [facility] Comment on above: Result Comment: Chol less than 200 mg/dl low risk Chol 201-239 mg/dl borderline risk Chol 240 mg/dl and greater high risk Performed By: #### U RDS, UA #### [facility] [address] [place] [address] [facility] Cholesterol in HDL [Mass/Vol] 49 mg/dL Normal 23-92 [facility] Comment on above: Result Comment: HDL CHOL ATP-III CLASSIFICATION Cardiovascular Risk HDL > or equal to 60 mg/dL LOW HDL < 40 mg/dL HIGH Performed By: #### U RDS, UA #### [facility] [address] [place] [address] [facility] Cholesterol.total/Chol esterol in HDL [Mass ratio] 5.0 {ratio} Normal <5.0 [facility] Comment on above: Performed By: #### U RDS, UA #### [facility] [address] [place] [id number] [facility] LDL Cholesterol,Calculated 175 mg/dL High 0-100 [facility] Comment on above: Result Comment: LDL ATP III CLASSIFICATION LDL less than 100 mg/dL Optimal LDL 100-129 mg/dL Near or above optimal LDL 130-159 mg/dL Borderline high LDL 160-189 mg/dL High LDL greater than 189 mg/dL Very high Performed By: #### U RDS, UA #### [facility] [address] [place] [address] [place] Triglyceride w/Reflex 114 mg/dL Normal 0-149 [facility] Comment on above: Result Comment: TRIG ATP III CLASSIFICATION TRIG less than 150 mg/dL Normal TRIG 150-199 mg/dL Borderline high TRIG 200-500 mg/dL High TRIG greater than 500 mg/dL Very high Standard traceable to the Center for Disease Conrtrol and Prevention (CDC) test method. Performed By: #### U RDS, UA #### [address] VLDL CHOLESTEROL 22 mg/dL Normal [facility] Comment on above: Performed By: #### U RDS, UA #### [address] Thyroid Stim Hormone w/Rflxo n 09-27-2023 Thyroid Stim Hormone w/Rflx 3.46 u[iU]/mL Normal 0.45-5.33 [facility] Comment on above: Performed By: #### U RDS, UA #### [address] Vitamin D 25 Hydroxy Totalon 09-27-2023 Vitamin D 25 Hydroxy Total 12.5 ng/mL Low 30-100 [facility] Comment on above: Result Comment: SURI MIN D STATUS 25(OH)VITAMIN D RANGE (ng/mL) Deficient <20 Insufficient 20 to <30 Sufficient 30 to 100 Reference: Edmundo MF,Jo-Ann VARGAS, Sanjay DANIEL, et al. Evaluation,treatment, and prevention of vitamin D deficiency; an Endocrine Society clinical practice guideline. JCEM. 2010; 96(7):1911-30. PERFORMED BY: [place] [address] PATHOLOGIST SIMULATION EDUCATOR RUBY ESPARZA M.D. Performed By: #### U RDS, UA #### [address] Automated basophil %Ordered By: Mary Calhoun on 09-26-2023 Basophils/100 WBC (Bld) 0.8 % Normal . [facility] Comment on above: Performed By: #### U RDS, UA #### [address] Automated basophil countOrde red By: Mary Calhoun on 09-26-2023 Basophils (Bld) [#/Vol] 0.1 10*3/uL Normal 0.0-0.2 [facility] Comment on above: Result Comment: PERF ORMED BY: [place] [address] PATHOLOGIST SIMULATION EDUCATOR RUBY ESPARZA M.D. Performed By: #### U RDS, UA #### [address] Automated blood monocyte cou ntOrdered By: Mary Calhoun on 09-26-2023 Monocytes (Bld) [#/Vol] 0.9 10*3/uL High 0.0-0.8 [facility] Comment on above: Performed By: #### U RDS, UA #### [address] Automated eosinophil %Ordere d By: Mary Divinee on 09-26-2023 Eosinophils/100 WBC (Bld) 3.2 % Normal . [facility] Comment on above: Performed By: #### U RDS, UA #### [address] Automated eosinophil countOr dered By: Mary Calhoun on 09-26-2023 Eosinophils (Bld) [#/Vol] 0.3 10*3/uL Normal 0.0-0.45 [facility] Comment on above: Performed By: #### U RDS, UA #### [address] Automated monocyte %Ordered By: Mary Calhoun on 09-26-2023 Monocytes/100 WBC (Bld) 8.8 % Normal . [facility] Comment on above: Performed By: #### U RDS, UA #### [address] Automated neutrophil %Ordere d By: Mary Divinee on 09-26-2023 Neutrophils/100 WBC (Bld) 62.7 % Normal . [facility] Comment on above: Performed By: #### U RDS, UA #### [address] Basic Metabolic Panelon 09-15 Creatinine Clr Calc Pharmacy 175.50 Normal [facility] Comment on above: Result Comment: PERF ORMED BY: [address] [place] [address] PATHOLOGIST SIMULATION EDUCATOR RUBY ESPARZA M.D. Performed By: #### U RDS, UA #### [place] [address] [place] GFR/1.73 sq M.predicted MDRD (S/P/Bld) [Vol rate/Area] mL/min/{1.73_m2} Normal [facility] Comment on above: Performed By: #### U RDS, UA #### [place] [address] [place] Calcium [Mass/volume] in Ser um or PlasmaOrdered By: Mary Calhoun on 09-26-2023 Calcium [Mass/Vol] 9.2 mg/dL Normal 8.6-10.3 [facility] Comment on above: Performed By: #### U RDS, UA #### [place] [address] [place] Carbon dioxide, total [Moles /volume] in Serum or PlasmaOrdered By: Mary aClhoun on 09-26-2023 CO2 [Moles/Vol] 27.1 mmol/L Normal 21.0-31.0 [facility] Comment on above: Performed By: #### U RDS, UA #### [place] [address] [place] Chloride [Moles/volume] in S jaspreet or PlasmaOrdered By: Mary Calhoun on 09-26-2023 Chloride [Moles/Vol] 103 mmol/L Normal 98-107 [facility] Comment on above: Performed By: #### U RDS, UA #### [address] Complete Blood Count Auto Di ffon 09-26-2023 Mean Corpuscular HGB Conc 34.1 g/dL Normal 32.5-35.6 [facility] Comment on above: Performed By: #### U RDS, UA #### [place] [address] [place] NRBC% 0.0 /100{WBC} Normal 0-0.5 [facility] Comment on above: Performed By: #### U JUVENTINO, UA #### [facility] [address] [place] [address] [place] Creatinine [Mass/volume] in Serum or PlasmaOrdered By: Mary Calhoun on 09-26-2023 Creatinine [Mass/Vol] 0.67 mg/dL Low 0.70-1.30 [facility] Comment on above: Performed By: #### U JUVENTINO, UA #### [facility] [address] [place] [address] [place] Erythrocyte distribution wid th [Ratio] by Automated countOrdered By: Mary Calhoun on 09-26-2023 Erythrocyte distribution width (RBC) [Ratio] 13.4 % Normal 12.0-14.8 [facility] Comment on above: Performed By: #### U JUVENTINO, UA #### [place] [address] [place] Erythrocytes [#/volume] in B lood by Automated countOrdered By: Mary Calhoun on 09-26-2023 RBC (Bld) [#/Vol] 5.12 10*6/uL Normal 3.90-5.60 [facility] Comment on above: Performed By: #### U JUVENTINO, UA #### [place] [address] [place] Glucose [Mass/volume] in Ser um or PlasmaOrdered By: Mary Calhoun on 09-26-2023 Glucose [Mass/Vol] 109 mg/dL High 70-100 [facility] Comment on above: ADA recommended refe rence rangeRandom Glucose Reference Range is dependent on time and content of last meal. Glucose of more than 200 mg/dL in a nonstressed, ambulatory subject supports the diagnosis of Diabetes Mellitus. Result Comment: [place] Glucose Reference Range is dependent on time and content of last meal. Glucose of more than 200 mg/dL in a nonstressed, ambulatory subject supports the diagnosis of Diabetes Mellitus. ADA recommended reference range Performed By: #### U RDS, UA #### [place] [address] [place] Hematocrit [Volume Fraction] of Blood by Automated countOrdered By: Mary Calhoun on 09-26-2023 Hematocrit (Bld) [Volume fraction] 43.7 % Normal 38.8-50.0 [facility] Comment on above: Performed By: #### U JUVENTINO, UA #### [facility] [address] [place] [address] Hemoglobin [Mass/volume] in BloodOrdered By: Mary Calhoun on 09-26-2023 Hemoglobin (Bld) [Mass/Vol] 14.9 g/dL Normal 13.0-17.0 [facility] Comment on above: Performed By: #### U JUVENTINO, UA #### [facility] [address] [place] [address] Leukocytes [#/volume] correc lucio for nucleated erythrocytes in Blood by Automated counOrdered By: Mary Calhoun on 09-26-2023 WBC corrected for nucl RBC Auto (Bld) [#/Vol] 10.1 10*3/uL 4.1-10.5 [facility] Leukocytes [#/volume] in Blo od by Automated countOrdered By: Mary Calhoun on 09-26-2023 WBC (Bld) [#/Vol] 10.1 10*3/uL Normal 4.1-10.5 [facility] Comment on above: Performed By: #### U JUVENTINO, UA #### [facility] [address] [place] [address] [place] Lymphocytes [#/volume] in Bl ood by Automated countOrdered By: Mary Calhoun on 09-26-2023 Lymphocytes (Bld) [#/Vol] 2.5 10*3/uL Normal 1.00-4.8 [facility] Comment on above: Performed By: #### U JUVENTINO, UA #### [facility] [address] [place] [address] [place] Lymphocytes/100 leukocytes i n Blood by Automated countOrdered By: Mary Calhoun on 09-26-2023 Lymphocytes/100 WBC (Bld) 24.5 % Normal . [facility] Comment on above: Performed By: #### U JUVENTINO, UA #### [facility] [address] MCH [Entitic mass] by Automa lucio countOrdered By: Mary Calhoun on 09-26-2023 MCH (RBC) [Entitic mass] 29.1 pg Normal 27.5-35.2 [facility] Comment on above: Performed By: #### U JUVENTINO, UA #### [facility] [address] [place] [address] MCHC Auto (RBC) [Mass/Vol]Or dered By: Mary Calhoun on 09-26-2023 MCHC (RBC) [Mass/Vol] 34.1 g/dL 32.5-35.6 [facility] MCV [Entitic volume] by Auto mated countOrdered By: Mary Calhoun on 09-26-2023 MCV (RBC) [Entitic vol] 85.4 fL Normal 83.5-101 [facility] Comment on above: Performed By: #### U JUVENTINO, UA #### [facility] [address] [place] [address] Neutrophils [#/volume] in Bl ood by Automated countOrdered By: Mary Calhoun on 09-26-2023 Neutrophils (Bld) [#/Vol] 6.3 10*3/uL Normal 1.8-7.7 [facility] Comment on above: Performed By: #### U JUVENTINO, UA #### [facility] [address] [place] [address] No Panel InformationOrdered By: Mary Calhoun on 09-26-2023 Estimated GFR (CKD-EPI) > 60.0 mL/Min [facility] Creatinine Clearance (Chem 175.50 [facility] Nucleated erythrocytes [Pres ence] in Blood by Automated countOrdered By: Mary Calhoun on 09-26-2023 Nucleated RBC Auto Ql (Bld) 0.0 /100{WBC} 0-0.5 [facility] Platelet mean volume [Entiti c volume] in Blood by Automated countOrdered By: Mary Calhoun on 09-26-2023 Platelet mean volume (Bld) [Entitic vol] 7.5 fL Normal 6.6-10.1 [facility] Comment on above: Performed By: #### U RDS, UA #### [facility] [address] [place] [address] Platelets [#/volume] in Bloo d by Automated countOrdered By: Mary Calhoun on 09-26-2023 Platelets (Bld) [#/Vol] 276 10*3/uL Normal 150-450 [facility] Comment on above: Performed By: #### U RDS, UA #### [address] Potassium [Moles/volume] in Serum or PlasmaOrdered By: Mary Calhoun on 09-26-2023 Potassium [Moles/Vol] 4.1 mmol/L Normal 3.5-5.1 [facility] Comment on above: Performed By: #### U JUVENTINO, UA #### [facility] [address] [place] [address] Serum or plasma anion gap de terminationOrdered By: Mary Calhoun on 09-26-2023 Anion gap [Moles/Vol] 10.0 mmol/L Normal 6.0-15.0 [facility] Comment on above: Performed By: #### U RDS, UA #### [place] [address] [place] Sodium [Moles/volume] in Ser um or PlasmaOrdered By: Mary Calhoun on 09-26-2023 Sodium [Moles/Vol] 136 mmol/L Normal 136-145 [facility] Comment on above: Performed By: #### U RDS, UA #### [place] [address] [place] Urea nitrogen [Mass/volume] in Serum or PlasmaOrdered By: Mary Calhoun on 09-26-2023 Urea nitrogen [Mass/Vol] 9 mg/dL Normal 7-25 [facility] Comment on above: Performed By: #### U RDS, UA #### [place] [address] [place] Alanine aminotransferase [En zymatic activity/volume] in Serum or PlasmaOrdered By: Mary Calhoun on 09-25-2023 ALT [Catalytic activity/Vol] 23 U/L Normal 7-52 [facility] Comment on above: Performed By: #### P T, KAREN, ETOH, CBC, OSMO, LACTIC, ACET, PTT #### [facility] [address] [place] [id number] [place] Albumin [Mass/volume] in Ser um or Plasma by Bromocresol green (BCG) dye binding methoOrdered By: Mary Calhoun on 09-25-2023 Albumin BCG dye [Mass/Vol] 3.9 g/dL 3.5-5.7 [facility] Alkaline phosphatase [Enzyma tic activity/volume] in Serum or PlasmaOrdered By: Mary Calhoun on 09-25-2023 ALP [Catalytic activity/Vol] 61 U/L Normal 34-104 [facility] Comment on above: Performed By: #### P T, KAREN, ETOH, CBC, OSMO, LACTIC, ACET, PTT #### [facility] [address] [place] [id number] [place] Aspartate aminotransferase [ Enzymatic activity/volume] in Serum or PlasmaOrdered By: Mary Calhoun on 09-25-2023 AST [Catalytic activity/Vol] 16 U/L Normal 13-39 [facility] Comment on above: Performed By: #### P T, KAREN, ETOH, CBC, OSMO, LACTIC, ACET, PTT #### [facility] [address] [place] [id number] [facility] Bilirubin.total [Mass/volume ] in Serum or PlasmaOrdered By: Mary Calhoun on 09-25-2023 Bilirubin [Mass/Vol] 1.3 mg/dL High 0.3-1.0 [facility] Comment on above: Samples from patient s who have taken Naproxen have shown spurious elevation in Total Bilirubin levels. A metabolite of Naproxen, O-desmethylnaproxen, has been shown to interfere with the Lars-Yoshi method for measuring Total Bilirubin. Result Comment: Samp les from patients who have taken Naproxen have shown spurious elevation in Total Bilirubin levels. A metabolite of Naproxen, O-desmethylnaproxen, has been shown to interfere with the Jendrassik-Grof method for measuring Total Bilirubin. Performed By: #### P T, KAREN, ETOH, CBC, OSMO, LACTIC, ACET, PTT #### [address] Comprehensive Metabolic Pane james 09-25-2023 Albumin [Mass/Vol] 3.9 g/dL Normal 3.5-5.7 [facility] Comment on above: Performed By: #### P T, KAREN, ETOH, CBC, OSMO, LACTIC, ACET, PTT #### [address] Anion gap [Moles/Vol] 9.8 mmol/L Normal 6.0-15.0 [facility] Comment on above: Performed By: #### P T, KAREN, ETOH, CBC, OSMO, LACTIC, ACET, PTT #### [address] Calcium [Mass/Vol] 8.7 mg/dL Normal 8.6-10.3 [facility] Comment on above: Performed By: #### P T, KAREN, ETOH, CBC, OSMO, LACTIC, ACET, PTT #### [address] Chloride [Moles/Vol] 104 mmol/L Normal 98-107 [facility] Comment on above: Performed By: #### P T, KAREN, ETOH, CBC, OSMO, LACTIC, ACET, PTT #### [address] CO2 [Moles/Vol] 25.1 mmol/L Normal 21.0-31.0 [facility] Comment on above: Performed By: #### P T, KAREN, ETOH, CBC, OSMO, LACTIC, ACET, PTT #### [address] Creatinine [Mass/Vol] 0.73 mg/dL Normal 0.70-1.30 [facility] Comment on above: Performed By: #### P T, KAREN, ETOH, CBC, OSMO, LACTIC, ACET, PTT #### [place] [address] [place] Creatinine Clr Calc Pharmacy 161.23 Normal [facility] Comment on above: Result Comment: PERF ORMED BY: [place] [address] PATHOLOGIST SIMULATION EDUCATOR RUBY ESPARZA M.D. Performed By: #### P T, KAREN, ETOH, CBC, OSMO, LACTIC, ACET, PTT #### [place] [address] [place] GFR/1.73 sq M.predicted MDRD (S/P/Bld) [Vol rate/Area] mL/min/{1.73_m2} Normal [facility] Comment on above: Performed By: #### P T, KAREN, ETOH, CBC, OSMO, LACTIC, ACET, PTT #### [address] Glucose [Mass/Vol] 114 mg/dL High 70-100 [facility] Comment on above: Result Comment: [facility] Glucose Reference Range is dependent on time and content of last meal. Glucose of more than 200 mg/dL in a nonstressed, ambulatory subject supports the diagnosis of Diabetes Mellitus. ADA recommended reference range Performed By: #### P T, KAREN, ETOH, CBC, OSMO, LACTIC, ACET, PTT #### [address] Potassium [Moles/Vol] 3.9 mmol/L Normal 3.5-5.1 [facility] Comment on above: Performed By: #### P T, KAREN, ETOH, CBC, OSMO, LACTIC, ACET, PTT #### [place] [address] [place] Sodium [Moles/Vol] 135 mmol/L Low 136-145 [facility] Comment on above: Performed By: #### P T, KAREN, ETOH, CBC, OSMO, LACTIC, ACET, PTT #### [place] [address] [place] Urea nitrogen [Mass/Vol] 5 mg/dL Low 7-25 [facility] Comment on above: Performed By: #### P T, KAREN, ETOH, CBC, OSMO, LACTIC, ACET, PTT #### [facility] [address] [place] [address] Protein [Mass/volume] in Ser um or PlasmaOrdered By: Mary Calhoun on 09-25-2023 Protein [Mass/Vol] 6.6 g/dL Normal 6.4-8.9 [facility] Comment on above: Performed By: #### P T, KAREN, ETOH, CBC, OSMO, LACTIC, ACET, PTT #### [facility] [address] [place] [address] Serum globulin measurement b y calculation (mass/volume)Ordered By: Mary Calhoun on 09-25-2023 Globulin (S) [Mass/Vol] 2.7 g/dL [facility] Comment on above: Performed By: #### P T, KAREN, ETOH, CBC, OSMO, LACTIC, ACET, PTT #### [facility] [address] [place] [address] Serum or plasma albumin/glob ulin mass ratioOrdered By: Mary Calhoun on 09-25-2023 Albumin/Globulin [Mass ratio] 1.4 {ratio} [facility] Comment on above: Performed By: #### P T, KAREN, ETOH, CBC, OSMO, LACTIC, ACET, PTT #### [address] XR chest 2V*on 09-25-2023 XR chest 2V* [facility] [place] [address] XRay Report Signed Patient: Jaye Coles MR#: [id number] 3 : 1980 Acct:[id number] Age/Sex: 42 / M ADM Date: 09/23/23 Loc: Room: [address] [place] [address] Type: ADM IN Attending Dr: Mary Calhoun MD Copies to: Mary Calhoun MD Ordering Provider: Mary Calhoun MD Date of Service: 09/25/23 XR/XR chest 2V*: cough PA AND LATERAL CHEST: CLINICAL HISTORY: Cough, weakness and tachycardia . Recent overdose. COMPARISON: 09/23/2023 A vagus nerve stimulator is seen with battery pack projecting over the left hilar region. There is shallow inspiration. There is increasing basilar atelectasis. No sizable effusion or pneumothorax is identified. The heart is not enlarged. The bony structures are intact. There is air within the stomach and at the splenic flexure. XR/XR chest 2V* IMPRESSION: INCREASING BIBASILAR ATELECTASIS. Impression dictated by: Carol Ann Ennis M.D.09/25/2023 3:19 PM Dictation Location: [place] [address] Transcribed By: SAKINA 09/25/231518 Dictated By: Carol Ann Ennis MD 09/25/231517 Signed By: 09/25/231518 Normal [facility] Basic Metabolic Panelon Anion gap [Moles/Vol] 9.1 mmol/L Normal 6.0-15.0 [facility] Comment on above: Performed By: #### P T, KAREN, ETOH, CBC, OSMO, LACTIC, ACET, PTT #### [address] Calcium [Mass/Vol] 8.1 mg/dL Low 8.6-10.3 [facility] Comment on above: Performed By: #### P T, KAREN, ETOH, CBC, OSMO, LACTIC, ACET, PTT #### [facility] [address] Chloride [Moles/Vol] 108 mmol/L High 98-107 [facility] Comment on above: Performed By: #### P T, KAREN, ETOH, CBC, OSMO, LACTIC, ACET, PTT #### [facility] [address] CO2 [Moles/Vol] 26.2 mmol/L Normal 21.0-31.0 [facility] Comment on above: Performed By: #### P T, KAREN, ETOH, CBC, OSMO, LACTIC, ACET, PTT #### [address] Creatinine [Mass/Vol] 0.65 mg/dL Low 0.70-1.30 [facility] Comment on above: Performed By: #### P T, KAREN, ETOH, CBC, OSMO, LACTIC, ACET, PTT #### [place] [address] [place] Creatinine Clr Calc Pharmacy 179.70 Normal [facility] Comment on above: Performed By: #### P T, KAREN, ETOH, CBC, OSMO, LACTIC, ACET, PTT #### [place] [address] [place] GFR/1.73 sq M.predicted MDRD (S/P/Bld) [Vol rate/Area] mL/min/{1.73_m2} Normal [facility] Comment on above: Performed By: #### P T, KAREN, ETOH, CBC, OSMO, LACTIC, ACET, PTT #### [address] Glucose [Mass/Vol] 143 mg/dL High 70-100 [facility] Comment on above: Result Comment: [facility] Glucose Reference Range is dependent on time and content of last meal. Glucose of more than 200 mg/dL in a nonstressed, ambulatory subject supports the diagnosis of Diabetes Mellitus. ADA recommended reference range Performed By: #### P T, KAREN, ETOH, CBC, OSMO, LACTIC, ACET, PTT #### [address] Potassium [Moles/Vol] 4.3 mmol/L Normal 3.5-5.1 [facility] Comment on above: Performed By: #### P T, KAREN, ETOH, CBC, OSMO, LACTIC, ACET, PTT #### [address] Sodium [Moles/Vol] 139 mmol/L Normal 136-145 [facility] Comment on above: Performed By: #### P T, KAREN, ETOH, CBC, OSMO, LACTIC, ACET, PTT #### [place] [address] [place] Urea nitrogen [Mass/Vol] 9 mg/dL Normal 7-25 [facility] Comment on above: Performed By: #### P T, KAREN, ETOH, CBC, OSMO, LACTIC, ACET, PTT #### [address] ECG 12 lead ECGon 09-24-2023 ECG 12 lead ECG [facility] [place] [address] Electrocardiograph Report Signed Patient: Jaye Coles MR#: [id number] 3 : 1980 Acct:[id number] Age/Sex: 42 / M ADM Date: 09/23/23 Loc: Room: [address] [place] [address] Type: ADM IN Attending Dr: Mary Calhoun MD Ordering Provider: Arabella Veloz APRN Date of Service: 09/24/2302/08/500 ECG/ECG 12 lead ECG: lurisadone and clonazepam overdose, prolonged Qtc Copies to: Test Reason : Blood Pressure : / mmHG Vent. Rate : 116 BPM Atrial Rate : 116 BPM P-R Int : 160 ms QRS Dur : 096 ms QT Int : 312 ms P-R-T Axes : 035 074 002 degrees QTc Int : 433 ms Sinus tachycardia Cannot rule out Inferior infarct , age undetermined Abnormal ECG When compared with ECG of 24-SEP-2023 07:22, (Unconfirmed) No significant change was found Confirmed by CECILE HORNE MD ([id number]) on 09/24/2023 11:46:20 AM Referred By: Electronically Signed By:CECILE HORNE MD Transcribed By: MUS Signed By Cecile Horne MD 0 09/24/23 1146 Normal [facility] ECG 12 lead ECG [facility] [place] [address] Electrocardiograph Report Signed Patient: Jaye Coles MR#: [id number] 3 : 1980 Acct:[id number] Age/Sex: 42 / M ADM Date: 09/23/23 Loc: 4C Room: [address] [place] [address] Type: DIS IN Attending Dr: Mary Calhoun MD Ordering Provider: Sherif Francis MD Date of Service: 09/24/2302/08/722 ECG/ECG 12 lead ECG: routine Copies to: Test Reason : Blood Pressure : / mmHG Vent. Rate : 127 BPM Atrial Rate : 127 BPM P-R Int : 150 ms QRS Dur : 094 ms QT Int : 304 ms P-R-T Axes : 039 082 -11 degrees QTc Int : 441 ms Sinus tachycardia T wave abnormality, consider inferior ischemia Abnormal ECG When compared with ECG of 23-SEP-2023 23:53, (Unconfirmed) Nonspecific T wave abnormality now evident in Lateral leads Confirmed by Madai Morfin ([id number]) on 10/05/2023 5:08:14 PM Referred By: Electronically Signed By:Madai Morfin Transcribed By: MUS Signed By Madai Morfin MD 4 1708 Normal [facility] Magnesium [Mass/volume] in S jaspreet or PlasmaOrdered By: Arabella Veloz on 09-24-2023 Magnesium [Mass/Vol] 2.1 mg/dL Normal 1.9-2.7 [facility] Comment on above: Result Comment: PERF ORMED BY: [place] [address] PATHOLOGIST SIMULATION EDUCATOR RUBY ESPARZA M.D. Performed By: #### P T, KAREN, ETOH, CBC, OSMO, LACTIC, ACET, PTT #### [facility] [address] [place] [address] No Panel InformationOrdered By: Sherif Francis on 09-24-2023 Blood Gas Critical Value See comment [facility] Comment on above: Critical Value mcmanus d on: 09/24/2023 at 04:29 Blood Gas Sample Site Venous Fir [facility] FiO2 21 % [facility] Venous Blood Base Excess -1.8 mmol/L -3.0-3.0 [facility] Venous Blood Oxygen Content 8.5 mmol/L 6.6-9.7 [facility] Venous Blood Oxygen Saturation 92.4 % 73.0-76.0 [facility] Venous Blood Partial Pressure CO2 37.0 mm[Hg] 38.0-50.0 [facility] Venous Blood Partial Pressure O2 58.7 mm[Hg] 35.0-45.0 [facility] Venous Blood pH 7.40 7.32-7.43 [facility] Venous Blood GasOrdered By: Sherif Francis on 09-24-2023 CO2 [Moles/Vol] 23.6 mmol/L Low 24.0-29.0 [facility] Comment on above: Performed By: #### P T, KAREN, ETOH, CBC, OSMO, LACTIC, ACET, PTT #### [address] HCO3 (Bld) [Moles/Vol] 22.5 mmol/L Low 23.0-29.0 [facility] Comment on above: Performed By: #### P T, KAREN, ETOH, CBC, OSMO, LACTIC, ACET, PTT #### [address] Venous Blood Gason Respiratory Critical Normal [facility] Comment on above: Result Comment: Crit ical Value called on: 09/24/2023 at 04:29 PERFORMED BY: [place] [address] PATHOLOGIST SIMULATION EDUCATOR RUBY ESPARZA M.D. Performed By: #### P T, KAREN, ETOH, CBC, OSMO, LACTIC, ACET, PTT #### [address] VBG Base Excess -1.8 mmol/L Normal -3.0-3.0 [facility] Comment on above: Performed By: #### P T, KAREN, ETOH, CBC, OSMO, LACTIC, ACET, PTT #### [address] VBG Draw Site Venous Normal [facility] Comment on above: Performed By: #### P T, KAREN, ETOH, CBC, OSMO, LACTIC, ACET, PTT #### [address] VBG Frac Inspired O2 21 % Normal [facility] Comment on above: Performed By: #### P T, KAREN, ETOH, CBC, OSMO, LACTIC, ACET, PTT #### [address] VBG O2 Content 8.5 mmol/L Normal 6.6-9.7 [facility] Comment on above: Performed By: #### P T, KAREN, ETOH, CBC, OSMO, LACTIC, ACET, PTT #### [address] VBG Oxygen Saturation 92.4 % Off scale high 73.0-76.0 [facility] Comment on above: Performed By: #### P T, KAREN, ETOH, CBC, OSMO, LACTIC, ACET, PTT #### [address] VBG PCO2 37.0 mm[Hg] Low 38.0-50.0 [facility] Comment on above: Performed By: #### P T, KAREN, ETOH, CBC, OSMO, LACTIC, ACET, PTT #### [address] VBG PH Venous PH 7.40 Normal 7.32-7.43 [facility] Comment on above: Performed By: #### P T, KAREN, ETOH, CBC, OSMO, LACTIC, ACET, PTT #### [address] VBG PO2 58.7 mm[Hg] High 35.0-45.0 [facility] Comment on above: Performed By: #### P T, KAREN, ETOH, CBC, OSMO, LACTIC, ACET, PTT #### [address] Acetaminophen [Mass/volume] in Serum or PlasmaOrdered By: Nirmal Hernandez on 09-23-2023 Acetaminophen [Mass/Vol] 0.4 ug/mL Low 10.0-30.0 [facility] Comment on above: Result Comment: PERF ORMED BY: [place] [address] PATHOLOGIST SIMULATION EDUCATOR RUBY ESPARZA M.D. Performed By: #### P T, KAREN, ETOH, CBC, OSMO, LACTIC, ACET, PTT #### [facility] [address] [place] [address] [facility] Activated partial thrombopla stin time (aPTT) in platelet poor plasma by coagulation aOrdered By: Nirmal Hernandez on 09-23-2023 aPTT Coag (PPP) [Time] 29.6 s 25.1-36.5 [facility] Comment on above: A hematocrit value g reater than 55% may lead to inaccurate results in coagulation testing. Patients having hematocrit values >55% require a special collection tube for coagulation studies. Please contact the laboratory at [phone] for redraw instructions. Alanine aminotransferase [En zymatic activity/volume] in Serum or PlasmaOrdered By: Nirmal Hernandez on 09-23-2023 ALT [Catalytic activity/Vol] 26 U/L Normal 7-52 [facility] Comment on above: Performed By: #### P T, KAREN, ETOH, CBC, OSMO, LACTIC, ACET, PTT #### [facility] [address] [place] [address] [place] Albumin [Mass/volume] in Ser um or Plasma by Bromocresol green (BCG) dye binding methoOrdered By: Nirmal Hernandez on 09-23-2023 Albumin BCG dye [Mass/Vol] 4.4 g/dL 3.5-5.7 [facility] Alkaline phosphatase [Enzyma tic activity/volume] in Serum or PlasmaOrdered By: Nirmal Hernandez on 09-23-2023 ALP [Catalytic activity/Vol] 57 U/L Normal 34-104 [facility] Comment on above: Performed By: #### P T, KAREN, ETOH, CBC, OSMO, LACTIC, ACET, PTT #### [facility] [address] [place] [address] [facility] Amphetamine Screen Ql (U)Ord ered By: Nirmal Hernandez on 09-23-2023 Amphetamines Ql (U) Negative Negative [facility] Arterial Blood Gason ABG Base Excess 0.5 mmol/L Normal -3.0-3.0 [facility] Comment on above: Performed By: #### P T, KAREN, ETOH, CBC, OSMO, LACTIC, ACET, PTT #### [address] ABG Frac Inspired O2 36 % Normal [facility] Comment on above: Performed By: #### P T, KAREN, ETOH, CBC, OSMO, LACTIC, ACET, PTT #### [address] ABG Liter Flow 4 Normal [facility] Comment on above: Performed By: #### P T, KAREN, ETOH, CBC, OSMO, LACTIC, ACET, PTT #### [address] ABG Oxygen Content 9.7 mmol/L Normal 6.6-9.7 [facility] Comment on above: Performed By: #### P T, KAREN, ETOH, CBC, OSMO, LACTIC, ACET, PTT #### [address] ABG Oxygen Saturation 99.4 % Normal 95.0-100.0 [facility] Comment on above: Performed By: #### P T, KAREN, ETOH, CBC, OSMO, LACTIC, ACET, PTT #### [address] ABG PCO2 34.3 mm[Hg] Low 35.0-45.0 [facility] Comment on above: Performed By: #### P T, KAREN, ETOH, CBC, OSMO, LACTIC, ACET, PTT #### [address] ABG PH 7.46 High 7.35-7.45 [facility] Comment on above: Performed By: #### P T, KAREN, ETOH, CBC, OSMO, LACTIC, ACET, PTT #### [address] ABG PO2 153.9 mm[Hg] Off scale high 80.0-100.0 [facility] Comment on above: Performed By: #### P T, KAREN, ETOH, CBC, OSMO, LACTIC, ACET, PTT #### [address] Respiratory Critical Normal [facility] Comment on above: Result Comment: Crit ical Value called on: 09/23/2023 at 19:20 PERFORMED BY: [place] [address] PATHOLOGIST SIMULATION EDUCATOR RUBY ESPARZA M.D. Performed By: #### P T, KAREN, ETOH, CBC, OSMO, LACTIC, ACET, PTT #### [address] VBG Draw Site Left Radial Normal [facility] Comment on above: Performed By: #### P T, KAREN, ETOH, CBC, OSMO, LACTIC, ACET, PTT #### [address] ABG Base Excess 0.0 mmol/L Normal -3.0-3.0 [facility] Comment on above: Performed By: #### U RDS, UA #### [address] ABG Frac Inspired O2 36 % Normal [facility] Comment on above: Performed By: #### U RDS, UA #### [address] ABG Liter Flow 4 Normal [facility] Comment on above: Performed By: #### U RDS, UA #### [address] ABG Oxygen Content 10.0 mmol/L High 6.6-9.7 [facility] Comment on above: Performed By: #### U RDS, UA #### [address] ABG Oxygen Saturation 97.0 % Normal 95.0-100.0 [facility] Comment on above: Performed By: #### U RDS, UA #### [address] ABG PCO2 38.2 mm[Hg] Normal 35.0-45.0 [facility] Comment on above: Performed By: #### U RDS, UA #### [address] ABG PH 7.42 Normal 7.35-7.45 [facility] Comment on above: Performed By: #### U RDS, UA #### [facility] [address] [place] [address] ABG PO2 84.9 mm[Hg] Normal 80.0-100.0 [facility] Comment on above: Performed By: #### U RDS, UA #### [address] CO2 [Moles/Vol] 25.4 mmol/L Normal 23.0-27.0 [facility] Comment on above: Performed By: #### U RDS, UA #### [address] HCO3 (Bld) [Moles/Vol] 24.2 mmol/L Normal 23.0-29.0 [facility] Comment on above: Performed By: #### U RDS, UA #### [address] Respiratory Critical Normal [facility] Comment on above: Result Comment: Crit ical Value called on: 09/23/2023 at 18:26 PERFORMED BY: [place] [address] PATHOLOGIST SIMULATION EDUCATOR RUBY ESPARZA M.D. Performed By: #### U RDS, UA #### [address] VBG Draw Site Left Radial Normal [facility] Comment on above: Performed By: #### U RDS, UA #### [address] Arterial Blood GasOrdered By : Nirmal Hernandez on 09-23-2023 CO2 [Moles/Vol] 24.7 mmol/L Normal 23.0-27.0 [facility] Comment on above: Performed By: #### P T, KAREN, ETOH, CBC, OSMO, LACTIC, ACET, PTT #### [address] HCO3 (Bld) [Moles/Vol] 23.7 mmol/L Normal 23.0-29.0 [facility] Comment on above: Performed By: #### P T, KAREN, ETOH, CBC, OSMO, LACTIC, ACET, PTT #### [address] Aspartate aminotransferase [ Enzymatic activity/volume] in Serum or PlasmaOrdered By: Nirmal Hernandez on 09-23-2023 AST [Catalytic activity/Vol] 16 U/L Normal 13-39 [facility] Comment on above: Performed By: #### P T, KAREN, ETOH, CBC, OSMO, LACTIC, ACET, PTT #### [address] Automated basophil %Ordered By: Nirmal Hernandez on 09-23-2023 Basophils/100 WBC (Bld) 0.5 % Normal . [facility] Comment on above: Performed By: #### P T, KAREN, ETOH, CBC, OSMO, LACTIC, ACET, PTT #### [address] Automated basophil countOrde red By: Nirmal Hernandez on 09-23-2023 Basophils (Bld) [#/Vol] 0.0 10*3/uL Normal 0.0-0.2 [facility] Comment on above: Result Comment: PERF ORMED BY: [place] [address] PATHOLOGIST SIMULATION EDUCATOR RUBY ESPARZA M.D. Performed By: #### P T, KAREN, ETOH, CBC, OSMO, LACTIC, ACET, PTT #### [address] Automated blood monocyte cou ntOrdered By: Nirmal Hernandez on 09-23-2023 Monocytes (Bld) [#/Vol] 0.5 10*3/uL Normal 0.0-0.8 [facility] Comment on above: Performed By: #### P T, KAREN, ETOH, CBC, OSMO, LACTIC, ACET, PTT #### [address] Automated eosinophil %Ordere d By: Nirmal Hernandez on 09-23-2023 Eosinophils/100 WBC (Bld) 0.8 % Normal . [facility] Comment on above: Performed By: #### P T, KAREN, ETOH, CBC, OSMO, LACTIC, ACET, PTT #### [address] Automated eosinophil countOr dered By: Nirmal Hernandez on 09-23-2023 Eosinophils (Bld) [#/Vol] 0.1 10*3/uL Normal 0.0-0.45 [facility] Comment on above: Performed By: #### P T, KAREN, ETOH, CBC, OSMO, LACTIC, ACET, PTT #### [address] Automated monocyte %Ordered By: Nirmal Hernandez on 09-23-2023 Monocytes/100 WBC (Bld) 5.9 % Normal . [facility] Comment on above: Performed By: #### P T, KAREN, ETOH, CBC, OSMO, LACTIC, ACET, PTT #### [address] Automated neutrophil %Ordere d By: Nirmal Hernandez on 09-23-2023 Neutrophils/100 WBC (Bld) 75.4 % Normal . [facility] Comment on above: Performed By: #### P T, KAREN, ETOH, CBC, OSMO, LACTIC, ACET, PTT #### [address] Automated urine color determ inationOrdered By: Nirmal Hernandez on 09-23-2023 Color (U) Yellow Normal Yellow [facility] Comment on above: Order Comment: Name Collection Type:: Straight Catheter Performed By: #### U RDS, UA #### [address] Barbiturates [Presence] in U rine by Screen methodOrdered By: Nirmal Hernandez on 09-23-2023 Barbiturates Screen Ql (U) Negative Negative [facility] Benzodiazepines Screen Ql (U )Ordered By: Nirmal Hernandez on 09-23-2023 Benzodiazepines Ql (U) Negative Negative [facility] Benzoylecgonine [Presence] i n Urine by Screen methodOrdered By: Nirmal Hernandez on 09-23-2023 Benzoylecgonine Screen Ql (U) Negative Negative [facility] Bilirubin Test strip Ql (U)O rdered By: Nirmal Hernandez on 09-23-2023 Bilirubin Ql (U) Negative Negative [facility] Bilirubin.total [Mass/volume ] in Serum or PlasmaOrdered By: Nirmal Hernandez on 09-23-2023 Bilirubin [Mass/Vol] 0.8 mg/dL Normal 0.3-1.0 [facility] Comment on above: Performed By: #### P T, KAREN, ETOH, CBC, OSMO, LACTIC, ACET, PTT #### [address] head/brain wo conon 09-22 CT head/brain wo [facility] [place] [address] [place] [address] CT Scan Report Signed Patient: Jaye Coles MR#: [id number] 3 : 1980 Acct:[id number] Age/Sex: 42 / M ADM Date: 09/23/23 Loc: ER Room: Type: [facility] ER Attending Dr: Copies to: Nirmal Hernandez DO Ordering Provider: Nirmal Hernandez DO Date of Service: 09/23/23 CT/CT head/brain wo con: ams, ?OD CT BRAIN WITHOUT CONTRAST: CLINICAL HISTORY: Possible overdose. Patient found on the ground unresponsive. COMPARISON: 09/07/2018 TECHNIQUE: Contiguous axial unenhanced images were obtained through the brain. This CT exam was performed using one or more following dose reduction techniques: Automated exposure control, adjustment of the mA and/or kV according to patient size, or use of iterative reconstruction technique. FINDINGS: The ventricles are normal in size and position. Bah-white differentiation is maintained. There are no areas of abnormal attenuation. There is no hemorrhage, mass effect or extra-axial collections. The imaged paranasal sinuses are clear. CT/CT head/brain wo con IMPRESSION: NO ACUTE INTRACRANIAL ABNORMALITY. Impression dictated by: Carol Ann Ennis M.D.09/23/2023 8:35 PM Dictation Location: [place] [address] Transcribed By: SAKINA 09/23/232034 Dictated By: Carol Ann Ennis MD 09/23/232032 Signed By: 09/23/232034 Normal [facility] Calcium [Mass/volume] in Ser um or PlasmaOrdered By: Nirmal Hernandez on 09-23-2023 Calcium [Mass/Vol] 9.4 mg/dL Normal 8.6-10.3 [facility] Comment on above: Performed By: #### P T, KAREN, ETOH, CBC, OSMO, LACTIC, ACET, PTT #### [facility] [address] [place] [id number] [place] Cannabinoids [Presence] in U rine by Screen methodOrdered By: Nirmal Hernandez on 09-23-2023 Cannabinoids Screen Ql (U) Negative Negative [facility] Comment on above: These are unconfirme d results and should not be used for legal purposes. Drug Cut-Off Concentration: AMPH 1000 ng/mL MANUEL 200 ng/mL LEXIE 200 ng/mL COCM 300 ng/mL OP 300 ng/mL PCP 25 ng/mL THC 20 ng/mL Carbon dioxide, total [Moles /volume] in Serum or PlasmaOrdered By: Nirmal Hernandez on 09-23-2023 CO2 [Moles/Vol] 28.3 mmol/L Normal 21.0-31.0 [facility] Comment on above: Performed By: #### P T, KAREN, ETOH, CBC, OSMO, LACTIC, ACET, PTT #### [facility] [address] [place] [address] [place] Chloride [Moles/volume] in S jaspreet or PlasmaOrdered By: Nirmal Hernandez on 09-23-2023 Chloride [Moles/Vol] 103 mmol/L Normal 98-107 [facility] Comment on above: Performed By: #### P T, KAREN, ETOH, CBC, OSMO, LACTIC, ACET, PTT #### [facility] [address] [place] [address] [place] Complete Blood Count Auto Di ffon 09-23-2023 Mean Corpuscular HGB Conc 33.9 g/dL Normal 32.5-35.6 [facility] Comment on above: Performed By: #### P T, KAREN, ETOH, CBC, OSMO, LACTIC, ACET, PTT #### [address] Monocytes/100 WBC (Bld) 15.64 % Normal 0.00-20.00 [facility] Comment on above: Performed By: #### P T, KAREN, ETOH, CBC, OSMO, LACTIC, ACET, PTT #### [address] NRBC% 0.0 /100{WBC} Normal 0-0.5 [facility] Comment on above: Performed By: #### P T, KAREN, ETOH, CBC, OSMO, LACTIC, ACET, PTT #### [address] Comprehensive Metabolic Pane james 09-23-2023 Albumin [Mass/Vol] 4.4 g/dL Normal 3.5-5.7 [facility] Comment on above: Performed By: #### P T, KAREN, ETOH, CBC, OSMO, LACTIC, ACET, PTT #### [address] [facility] 138.72 Normal [facility] Comment on above: Performed By: #### P T, KAREN, ETOH, CBC, OSMO, LACTIC, ACET, PTT #### [address] GFR/1.73 sq M.predicted MDRD (S/P/Bld) [Vol rate/Area] mL/min/{1.73_m2} Normal [facility] Comment on above: Performed By: #### P T, KAREN, ETOH, CBC, OSMO, LACTIC, ACET, PTT #### [address] Creatine kinase [Enzymatic a ctivity/volume] in Serum or PlasmaOrdered By: Nirmal Hernandez on 09-23-2023 CK [Catalytic activity/Vol] 71 U/L Normal 30-223 [facility] Comment on above: Performed By: #### P T, KAREN, ETOH, CBC, OSMO, LACTIC, ACET, PTT #### [address] Creatinine [Mass/volume] in Serum or PlasmaOrdered By: Nirmal Hernandez on 09-23-2023 Creatinine [Mass/Vol] 0.84 mg/dL Normal 0.70-1.30 [facility] Comment on above: Performed By: #### P T, KAREN, ETOH, CBC, OSMO, LACTIC, ACET, PTT #### [address] Drug Screen,Urineon 09-23-19 24 Amphetamine Screen,Urine Negative Normal Negative [facility] Comment on above: Performed By: #### U RDS, UA #### [address] Barbiturate Screen,Urine Negative Normal Negative [facility] Comment on above: Performed By: #### U RDS, UA #### [place] [address] [place] Benzodiazepines Screen,Urine Negative Normal Negative [facility] Comment on above: Performed By: #### U RDS, UA #### [address] Cannabinoid Screen,Urine Negative Normal Negative [facility] Comment on above: Result Comment: Thes e are unconfirmed results and should not be used for legal purposes. Drug Cut-Off Concentration: AMPH 1000 ng/mL MANUEL 200 ng/mL LEXIE 200 ng/mL COCM 300 ng/mL OP 300 ng/mL PCP 25 ng/mL THC 20 ng/mL PERFORMED BY: [place] [address] PATHOLOGIST SIMULATION EDUCATOR RUBY ESPARZA M.D. Performed By: #### U RDS, UA #### [place] [address] [place] Cocaine Screen,Urine Negative Normal Negative [facility] Comment on above: Performed By: #### U RDS, UA #### [facility] [address] Opiate Screen,Urine Negative Normal Negative [facility] Comment on above: Performed By: #### U RDS, UA #### [facility] [address] [place] [id number] [facility] Phencyclidine Screen,Urine Negative Normal Negative [facility] Comment on above: Performed By: #### U RDS, UA #### [facility] [address] [place] [id number] [facility] ECG 12 lead ECGon 09-23-2023 ECG 12 lead ECG [facility] [address] Electrocardiograph Report Signed Patient: Jaye Coles MR#: [id number] [birth year] : 1980 Acct:[id number] Age/Sex: 42 / M ADM Date: 09/23/23 Loc: Room: [address] [place] [address] Type: DIS IN Attending Dr: Mary Calhoun MD Ordering Provider: Sherif Francis MD Date of Service: 09/23/2301/08/2353 ECG/ECG 12 lead ECG: routine Copies to: Test Reason : Blood Pressure : / mmHG Vent. Rate : 100 BPM Atrial Rate : 100 BPM P-R Int : 164 ms QRS Dur : 098 ms QT Int : 350 ms P-R-T Axes : 054 080 010 degrees QTc Int : 451 ms Normal sinus rhythm When compared with ECG of 23-SEP-2023 22:05, (Unconfirmed) No significant change was found Confirmed by Madai Morfin ([id number]) on 10/05/2023 5:08:11 PM Referred By: Electronically Signed By:Madai Morfin Transcribed By: MUS Signed By Madai Morfin MD 4 0058 Normal [facility] ECG 12 lead ECG [facility] [place] [address] Electrocardiograph Report Signed Patient: Jaye Coles MR#: [id number] [birth year] : 1980 Acct:[id number] Age/Sex: 42 / M ADM Date: 09/23/23 Loc: Room: [address] [place] [address] Type: ADM IN Attending Dr: Sherif Francis MD Ordering Provider: Nirmal Hernandez DO Date of Service: 09/23/2301/08/2237 ECG/ECG 12 lead ECG: Altered Mental Status Copies to: Test Reason : Blood Pressure : 096/064 mmHG Vent. Rate : 107 BPM Atrial Rate : 107 BPM P-R Int : 162 ms QRS Dur : 096 ms QT Int : 340 ms P-R-T Axes : 045 043 022 degrees QTc Int : 453 ms Sinus tachycardia Confirmed by Nirmal HERNANDEZ DO ([id number]) on 09/24/2023 1:38:26 AM Referred By: Electronically Signed By:Nirmal HERNANDEZ DO Transcribed By: MUS Signed By Nirmal Hernandez DO 0 09/24/23 0138 Normal [facility] ECG 12 lead ECG [place] [id number] Electrocardiograph Report Signed Patient: Jaye Coles MR#: [id number] 3 : 1980 Acct:[id number] Age/Sex: 42 / M ADM Date: 09/23/23 Loc: Room: [address] [place] [address] Type: ADM IN Attending Dr: Sherif Francis MD Ordering Provider: Nirmal Hernandez DO Date of Service: 09/23/2301/08/2338 ECG/ECG 12 lead ECG: F/U Copies to: Test Reason : Blood Pressure : 112/069 mmHG Vent. Rate : 124 BPM Atrial Rate : 124 BPM P-R Int : 154 ms QRS Dur : 090 ms QT Int : 304 ms P-R-T Axes : 045 042 018 degrees QTc Int : 436 ms Sinus tachycardia Confirmed by Nirmal HERNANDEZ DO ([id number]) on 09/24/2023 1:37:11 AM Referred By: Electronically Signed By:Nirmal HERNANDEZ DO Transcribed By: MUS Signed By Nirmal Hernandez DO 0 09/24/23 0137 Normal [facility] ECG 12 lead ECG [place] [id number] Electrocardiograph Report Signed Patient: Jaye Coles MR#: [id number] 3 : 1980 Acct:[id number] Age/Sex: 42 / M ADM Date: 09/23/23 Loc: ER Room: Type: [facility] ER Attending Dr: Ordering Provider: Nirmal Hernandez DO Date of Service: 09/23/2301/08/1811 ECG/ECG 12 lead ECG: OVERDOSE Copies to: Test Reason : Blood Pressure : 104/061 mmHG Vent. Rate : 161 BPM Atrial Rate : 161 BPM P-R Int : 130 ms QRS Dur : 086 ms QT Int : 312 ms P-R-T Axes : 044 041 030 degrees QTc Int : 510 ms Sinus tachycardia Confirmed by Nirmal HERNANDEZ DO ([id number]) on 09/23/2023 8:53:54 PM Referred By: Electronically Signed By:Nirmal HERNANDEZ DO Transcribed By: MUS Signed By Nirmal Hernandez DO 0 09/23/232052 Normal [facility] Erythrocyte distribution wid th [Ratio] by Automated countOrdered By: Nirmal Hernandez on 09-23-2023 Erythrocyte distribution width (RBC) [Ratio] 13.7 % Normal 12.0-14.8 [facility] Comment on above: Performed By: #### P T, KAREN, ETOH, CBC, OSMO, LACTIC, ACET, PTT #### [facility] [address] Erythrocytes [#/volume] in B lood by Automated countOrdered By: Nirmal Hernandez on 09-23-2023 RBC (Bld) [#/Vol] 5.39 10*6/uL Normal 3.90-5.60 [facility] Comment on above: Performed By: #### P T, KAREN, ETOH, CBC, OSMO, LACTIC, ACET, PTT #### [facility] [address] Ethanol [Mass/volume] in Ser um or PlasmaOrdered By: Nirmal Hernandez on 09-23-2023 Ethanol [Mass/Vol] mg/dL Normal [facility] Comment on above: Performed By: #### P T, KAREN, ETOH, CBC, OSMO, LACTIC, ACET, PTT #### [facility] [address] Ethanol [Mass/Vol] TNP [facility] Comment on above: Test not performed Ethyl Alcohol Profileon Percent Ethanol Not performed Normal [facility] Comment on above: Result Comment: PERF ORMED BY: [address] [place] [address] PATHOLOGIST SIMULATION EDUCATOR RUBY ESPARZA M.D. Performed By: #### P T, KAREN, ETOH, CBC, OSMO, LACTIC, ACET, PTT #### [place] [address] [place] Glucose [Mass/volume] in Ser um or PlasmaOrdered By: Nirmal Hernandez on 09-23-2023 Glucose [Mass/Vol] 163 mg/dL High 70-100 [facility] Comment on above: ADA recommended refe rence rangeRandom Glucose Reference Range is dependent on time and content of last meal. Glucose of more than 200 mg/dL in a nonstressed, ambulatory subject supports the diagnosis of Diabetes Mellitus. Result Comment: [place] om Glucose Reference Range is dependent on time and content of last meal. Glucose of more than 200 mg/dL in a nonstressed, ambulatory subject supports the diagnosis of Diabetes Mellitus. ADA recommended reference range Performed By: #### P T, KAREN, ETOH, CBC, OSMO, LACTIC, ACET, PTT #### [address] Hematocrit [Volume Fraction] of Blood by Automated countOrdered By: Nirmal Hernandez on 09-23-2023 Hematocrit (Bld) [Volume fraction] 45.9 % Normal 38.8-50.0 [facility] Comment on above: Performed By: #### P T, KAREN, ETOH, CBC, OSMO, LACTIC, ACET, PTT #### [facility] [address] [place] [address] [place] Hemoglobin [Mass/volume] in BloodOrdered By: Nirmal Hernandez on 09-23-2023 Hemoglobin (Bld) [Mass/Vol] 15.5 g/dL Normal 13.0-17.0 [facility] Comment on above: Performed By: #### P T, KAREN, ETOH, CBC, OSMO, LACTIC, ACET, PTT #### [facility] [address] [place] [id number] [facility] INR in Platelet poor plasma by Coagulation assayOrdered By: Nirmal Hernandez on 09-23-2023 INR Coag (PPP) [Relative time] 1.0 {INR} Normal [facility] Comment on above: INR Therapeutic Rang e A) Pre- and Peroperative OAT started two weeks before surgery. NOT HIP SURGERY: 1.5 - 2.5 HIP SURGERY: 2 - 3B) Primary and secondary prevention of venous THROMBOSIS: 2 - 3C) Active venous thrombosis, pulmonary embolismand prevention of recurrent venous thrombosis: 2 - 3D) Prevention of arterial thromboembolismincluding patients with mechanical heart valves: 3 - 4.5 Result Comment: INR Therapeutic Range A) Pre- and Peroperative OAT started two weeks before surgery. NOT HIP SURGERY: 1.5 - 2.5 HIP SURGERY: 2 - 3 B) Primary and secondary prevention of venous THROMBOSIS: 2 - 3 C) Active venous thrombosis, pulmonary embolism and prevention of recurrent venous thrombosis: 2 - 3 D) Prevention of arterial thromboembolism including patients with mechanical heart valves: 3 - 4.5 Performed By: #### P T, KAREN, ETOH, CBC, OSMO, LACTIC, ACET, PTT #### [facility] [address] [place] [id number] [facility] Ketones Auto test strip (U) [Mass/Vol]Ordered By: Nirmal Hernandez on 09-23-2023 Ketones (U) [Mass/Vol] Negative Negative [facility] Lactate [Moles/volume] in Se rum or PlasmaOrdered By: Nirmal Hernandez on 09-23-2023 Lactate [Moles/Vol] 1.9 mmol/L Normal 0.5-2.2 [facility] Comment on above: Result Comment: PERF ORMED BY: [address] [place] [address] PATHOLOGIST SIMULATION EDUCATOR RUBY ESPARZA M.D. Performed By: #### P T, KAREN, ETOH, CBC, OSMO, LACTIC, ACET, PTT #### [facility] [address] Leukocytes [#/volume] correc lucio for nucleated erythrocytes in Blood by Automated counOrdered By: Nirmal Hernandez on 09-23-2023 WBC corrected for nucl RBC Auto (Bld) [#/Vol] 8.9 10*3/uL 4.1-10.5 [facility] Leukocytes [#/volume] in Blo od by Automated countOrdered By: Nirmal Hernandez on 09-23-2023 WBC (Bld) [#/Vol] 8.9 10*3/uL Normal 4.1-10.5 [facility] Comment on above: Performed By: #### P T, KAREN, ETOH, CBC, OSMO, LACTIC, ACET, PTT #### [facility] [address] [place] [address] Lipase [Enzymatic activity/v olume] in Serum or PlasmaOrdered By: Nirmal Hernandez on 09-23-2023 Lipase [Catalytic activity/Vol] 16.0 U/L Normal 11.0-82.0 [facility] Comment on above: Result Comment: PERF ORMED BY: [place] [address] PATHOLOGIST SIMULATION EDUCATOR RUBY ESPARZA M.D. Performed By: #### P T, KAREN, ETOH, CBC, OSMO, LACTIC, ACET, PTT #### [place] [address] [place] Lymphocytes [#/volume] in Bl ood by Automated countOrdered By: Nirmal Hernandez on 09-23-2023 Lymphocytes (Bld) [#/Vol] 1.5 10*3/uL Normal 1.00-4.8 [facility] Comment on above: Performed By: #### P T, KAREN, ETOH, CBC, OSMO, LACTIC, ACET, PTT #### [facility] [address] [place] [address] [place] Lymphocytes/100 leukocytes i n Blood by Automated countOrdered By: Nirmal Hernandez on 09-23-2023 Lymphocytes/100 WBC (Bld) 17.4 % Normal . [facility] Comment on above: Performed By: #### P T, KAREN, ETOH, CBC, OSMO, LACTIC, ACET, PTT #### [facility] [address] [place] [address] [place] MCH [Entitic mass] by Automa lucio countOrdered By: Nirmal Hernandez on 09-23-2023 MCH (RBC) [Entitic mass] 28.8 pg Normal 27.5-35.2 [facility] Comment on above: Performed By: #### P T, KAREN, ETOH, CBC, OSMO, LACTIC, ACET, PTT #### [facility] [address] [place] [address] MCHC Auto (RBC) [Mass/Vol]Or dered By: Nirmal Hernandez on 09-23-2023 MCHC (RBC) [Mass/Vol] 33.9 g/dL 32.5-35.6 [facility] MCV [Entitic volume] by Auto mated countOrdered By: Nirmal Hernandez on 09-23-2023 MCV (RBC) [Entitic vol] 85.2 fL Normal 83.5-101 [facility] Comment on above: Performed By: #### P T, KAREN, ETOH, CBC, OSMO, LACTIC, ACET, PTT #### [address] Magnesium [Mass/volume] in S jaspreet or PlasmaOrdered By: Nirmal Hernandez on 09-23-2023 Magnesium [Mass/Vol] 1.9 mg/dL Normal 1.9-2.7 [facility] Comment on above: Performed By: #### P T, KAREN, ETOH, CBC, OSMO, LACTIC, ACET, PTT #### [facility] [address] [place] [address] Monocyte distribution width [Entitic volume] in Blood by AutomatedOrdered By: Nirmal Hernandez on 09-23-2023 Monocyte distribution width Auto (Bld) [Entitic vol] 15.64 % 0.00-20.00 [facility] Neutrophils [#/volume] in Bl ood by Automated countOrdered By: Nirmal Hernandez on 09-23-2023 Neutrophils (Bld) [#/Vol] 6.7 10*3/uL Normal 1.8-7.7 [facility] Comment on above: Performed By: #### P T, KAREN, ETOH, CBC, OSMO, LACTIC, ACET, PTT #### [facility] [address] [place] [id number] [facility] Nitrite Test strip Ql (U)Ord ered By: Nirmal Hernandez on 09-23-2023 Nitrite Ql (U) Negative Negative [facility] No Panel InformationOrdered By: Nirmal Hernandez on 09-23-2023 Blood Gas Critical Value See comment [facility] Comment on above: Critical Value [email or web address] d on: 09/23/2023 at 22:27 Blood Gas Sample Site Venous Fir [facility] FiO2 21 % [facility] Venous Blood Base Excess -1.4 mmol/L -3.0-3.0 [facility] Venous Blood Oxygen Content 8.5 mmol/L 6.6-9.7 [facility] Venous Blood Oxygen Saturation 93.9 % 73.0-76.0 [facility] Venous Blood Partial Pressure CO2 43.2 mm[Hg] 38.0-50.0 [facility] Venous Blood Partial Pressure O2 64.9 mm[Hg] 35.0-45.0 [facility] Venous Blood pH 7.36 7.32-7.43 [facility] Arterial Blood Base Excess 0.5 mmol/L -3.0-3.0 [facility] Arterial Blood Oxygen Content 9.7 mmol/L 6.6-9.7 [facility] Arterial Blood Oxygen Saturation 99.4 % 95.0-100.0 [facility] Arterial Blood Partial Pressure CO2 34.3 mm[Hg] 35.0-45.0 [facility] Arterial Blood Partial Pressure O2 153.9 mm[Hg] 80.0-100.0 [facility] Arterial Blood pH 7.46 7.35-7.45 [facility] Blood Gas Liter Flow 4 L/min [facility] Estimated GFR (CKD-EPI) > 60.0 mL/Min [facility] Creatinine Clearance (Chem 138.72 [facility] Nucleated erythrocytes [Pres ence] in Blood by Automated countOrdered By: Nirmal Hernandez on 09-23-2023 Nucleated RBC Auto Ql (Bld) 0.0 /100{WBC} 0-0.5 [facility] Opiates [Presence] in Urine by Screen methodOrdered By: Nirmal Hernandez on 09-23-2023 Opiates Screen Ql (U) Negative Negative [facility] Osmolalityon 09-23-2023 Osmolality 297 mosm Normal 278-305 [facility] Comment on above: Result Comment: PERF ORMED BY: [place] [id number] PATHOLOGIST SIMULATION EDUCATOR RUBY ESPARZA M.D. Performed By: #### P T, KAREN, ETOH, CBC, OSMO, LACTIC, ACET, PTT #### [address] Osmolality measurementOrdere d By: Nirmal Hernandez on 09-23-2023 Osmolality (Unsp spec) [Osmolality] 297 mosm 278-305 [facility] Partial Thromboplastin Timeo n 09-23-2023 aPTT Coag (Bld) [Time] 29.6 s Normal 25.1-36.5 [facility] Comment on above: Result Comment: A he matocrit value greater than 55% may lead to inaccurate results in coagulation testing. Patients having hematocrit values >55% require a special collection tube for coagulation studies. Please contact the laboratory at [phone] for redraw instructions. PERFORMED BY: [place] [address] PATHOLOGIST SIMULATION EDUCATOR RUBY ESPARZA M.D. Performed By: #### P T, KAREN, ETOH, CBC, OSMO, LACTIC, ACET, PTT #### [place] [id number] [facility] Phencyclidine Screen Ql (U)O rdered By: Nirmal Hernandez on 09-23-2023 Phencyclidine Ql (U) Negative Negative [facility] Platelet mean volume [Entiti c volume] in Blood by Automated countOrdered By: Nirmal Hernandez on 09-23-2023 Platelet mean volume (Bld) [Entitic vol] 7.2 fL Normal 6.6-10.1 [facility] Comment on above: Performed By: #### P T, KAREN, ETOH, CBC, OSMO, LACTIC, ACET, PTT #### [address] Platelets [#/volume] in Bloo d by Automated countOrdered By: Nirmal Hernandez on 09-23-2023 Platelets (Bld) [#/Vol] 300 10*3/uL Normal 150-450 [facility] Comment on above: Performed By: #### P T, KAREN, ETOH, CBC, OSMO, LACTIC, ACET, PTT #### [facility] [address] [place] [address] [place] Potassium [Moles/volume] in Serum or PlasmaOrdered By: Nirmal Hernandez on 09-23-2023 Potassium [Moles/Vol] 3.9 mmol/L Normal 3.5-5.1 [facility] Comment on above: Performed By: #### P T, KAREN, ETOH, CBC, OSMO, LACTIC, ACET, PTT #### [facility] [address] Protein Auto test strip (U) [Mass/Vol]Ordered By: Nirmal Hernandez on 09-23-2023 Protein (U) [Mass/Vol] Negative Negative [facility] Protein [Mass/volume] in Ser um or PlasmaOrdered By: Nirmal Hernandez on 09-23-2023 Protein [Mass/Vol] 7.0 g/dL Normal 6.4-8.9 [facility] Comment on above: Performed By: #### P T, KAREN, ETOH, CBC, OSMO, LACTIC, ACET, PTT #### [address] Prothrombin time (PT)Ordered By: Nirmal Hernandez on 09-23-2023 PT Coag (PPP) [Time] 11.2 s Normal 9.0-12.9 [facility] Comment on above: A hematocrit value g reater than 55% may lead to inaccurate results in coagulation testing. Patients having hematocrit values >55% require a special collection tube for coagulation studies. Please contact the laboratory at [phone] for redraw instructions. Result Comment: A he matocrit value greater than 55% may lead to inaccurate results in coagulation testing. Patients having hematocrit values >55% require a special collection tube for coagulation studies. Please contact the laboratory at [phone] for redraw instructions. Performed By: #### P T, KAREN, ETOH, CBC, OSMO, LACTIC, ACET, PTT #### [address] Salicylateon 09-23-2023 Salicylate < 1.5 Low 15.0-30.0 [facility] Comment on above: Result Comment: Lenora ents treated with Sulfasalazine may generate a false high result for Salicylate. Performed By: #### P T, KAREN, ETOH, CBC, OSMO, LACTIC, ACET, PTT #### [address] Salicylates [Mass/volume] in Serum or PlasmaOrdered By: Nirmal Hernandez on 09-23-2023 Salicylates [Mass/Vol] mg/dL 15.0-30.0 [facility] Comment on above: Patients treated wit h Sulfasalazine may generate a false high result for Salicylate. Serum globulin measurement b y calculation (mass/volume)Ordered By: Nirmal Hernandez on 09-23-2023 Globulin (S) [Mass/Vol] 2.6 g/dL [facility] Comment on above: Performed By: #### P T, KAREN, ETOH, CBC, OSMO, LACTIC, ACET, PTT #### [address] Serum or plasma albumin/glob ulin mass ratioOrdered By: Nirmal Hernandez on 09-23-2023 Albumin/Globulin [Mass ratio] 1.7 {ratio} [facility] Comment on above: Performed By: #### P T, KAREN, ETOH, CBC, OSMO, LACTIC, ACET, PTT #### [address] Serum or plasma anion gap de terminationOrdered By: Nirmal Hernandez on 09-23-2023 Anion gap [Moles/Vol] 11.6 mmol/L Normal 6.0-15.0 [facility] Comment on above: Performed By: #### P T, KAREN, ETOH, CBC, OSMO, LACTIC, ACET, PTT #### [address] Sodium [Moles/volume] in Ser um or PlasmaOrdered By: Nirmal Hernandez on 09-23-2023 Sodium [Moles/Vol] 139 mmol/L Normal 136-145 [facility] Comment on above: Performed By: #### P T, KAREN, ETOH, CBC, OSMO, LACTIC, ACET, PTT #### [facility] [address] Specific gravity Auto test s trip (U) [Rel density]Ordered By: Nirmal Hernandez on 09-23-2023 Specific gravity (U) [Rel density] 1.009 1.001-1.03 0 [facility] Troponin I High Sensitivityo n 09-23-2023 Troponin I High Sensitivity 13.2 pg/mL Normal 0.0-20.0 [facility] Comment on above: Result Comment: PERF ORMED BY: [place] [address] PATHOLOGIST SIMULATION EDUCATOR RUBY ESPARZA M.D. Performed By: #### P T, KAREN, ETOH, CBC, OSMO, LACTIC, ACET, PTT #### [address] Troponin I.cardiac [Mass/vol ume] in Serum or Plasma by Detection limit <= 0.01 ng/Ordered By: Nirmal Hernandez on 09-23-2023 Troponin I.cardiac DL <= 0.01 ng/mL [Mass/Vol] 13.2 pg/mL 0.0-20.0 [facility] Urea nitrogen [Mass/volume] in Serum or PlasmaOrdered By: Nirmal Hernandez on 09-23-2023 Urea nitrogen [Mass/Vol] 10 mg/dL Normal 7-25 [facility] Comment on above: Performed By: #### P T, KAREN, ETOH, CBC, OSMO, LACTIC, ACET, PTT #### [facility] [address] [place] [id number] [facility] Urinalysison 09-23-2023 Appearance (U) Clear Normal Clear [facility] Comment on above: Order Comment: Name Collection Type:: Straight Catheter Performed By: #### U RDS, UA #### [address] [place] [address] [place] Bilirubin,Urine Negative Normal Negative [facility] Comment on above: Order Comment: Name Collection Type:: Straight Catheter Performed By: #### U RDS, UA #### [address] Glucose Ql (U) Normal Normal Normal [facility] Comment on above: Order Comment: Name Collection Type:: Straight Catheter Performed By: #### U RDS, UA #### [address] Ketones Ql (U) Negative Normal Negative [facility] Comment on above: Order Comment: Name Collection Type:: Straight Catheter Performed By: #### U RDS, UA #### [address] Leukocyte esterase Test strip Ql (U) Negative Normal Negative [facility] Comment on above: Order Comment: Name Collection Type:: Straight Catheter Performed By: #### U RDS, UA #### [place] [address] [place] Nitrite,Urine Negative Normal Negative [facility] Comment on above: Order Comment: Name Collection Type:: Straight Catheter Performed By: #### U RDS, UA #### [place] [address] [place] Occult Blood,Urine Negative Normal Negative [facility] Comment on above: Order Comment: Name Collection Type:: Straight Catheter Result Comment: PERF ORMED BY: [place] [address] PATHOLOGIST SIMULATION EDUCATOR RUBY ESPARZA M.D. Performed By: #### U RDS, UA #### [place] [address] [place] Protein,Urine Negative Normal Negative [facility] Comment on above: Order Comment: Name Collection Type:: Straight Catheter Performed By: #### U RDS, UA #### [place] [address] [place] Specificy Wendel,Urine 1.009 Normal 1.001-1.03 0 [facility] Comment on above: Order Comment: Name Collection Type:: Straight Catheter Performed By: #### U RDS, UA #### [facility] [address] [place] [address] [place] Urobilinogen,Urine Normal Normal Normal [facility] Comment on above: Order Comment: Name Collection Type:: Straight Catheter Performed By: #### U RDS, UA #### [facility] [address] [place] [address] [place] Urine clarity by refractomet ry automatedOrdered By: Nirmal Hernandez on 09-23-2023 Clarity Refractometry automated (U) Clear Clear [facility] Urine glucose measurement by automated test strip (mass/volume)Ordered By: Nirmal Hernandez on 09-23-2023 Glucose Auto test strip (U) [Mass/Vol] Normal mg/dL Normal [facility] Urine hemoglobin detection b y automated test stripOrdered By: Nirmal Hernandez on 09-23-2023 Hemoglobin Auto test strip Ql (U) Negative Negative [facility] Urine leukocyte esterase det ection by automated test stripOrdered By: Nirmal Hernandez on 09-23-2023 Leukocyte esterase Auto test strip Ql (U) Negative Negative [facility] Urine pH measurement by auto mated test stripOrdered By: Nirmal Hernandez on 09-23-2023 pH (U) 6.5 [pH] Normal 5.0-9.0 [facility] Comment on above: Order Comment: Name Collection Type:: Straight Catheter Performed By: #### U RDS, UA #### [place] [address] [place] Urobilinogen Auto test strip (U) [Mass/Vol]Ordered By: Nirmal Hernandez on 09-23-2023 Urobilinogen (U) [Mass/Vol] Normal mg/dL Normal [facility] Venous Blood GasOrdered By: Nirmal Hernandez on 09-23-2023 CO2 [Moles/Vol] 25.4 mmol/L Normal 24.0-29.0 [facility] Comment on above: Performed By: #### P T, KAREN, ETOH, CBC, OSMO, LACTIC, ACET, PTT #### [facility] [address] HCO3 (Bld) [Moles/Vol] 24.1 mmol/L Normal 23.0-29.0 [facility] Comment on above: Performed By: #### P T, KAREN, ETOH, CBC, OSMO, LACTIC, ACET, PTT #### [address] Venous Blood Gason Respiratory Critical Normal [facility] Comment on above: Result Comment: Crit ical Value called on: 09/23/2023 at 22:27 PERFORMED BY: [place] [address] PATHOLOGIST SIMULATION EDUCATOR RUBY ESPARZA M.D. Performed By: #### P T, KAREN, ETOH, CBC, OSMO, LACTIC, ACET, PTT #### [address] VBG Base Excess -1.4 mmol/L Normal -3.0-3.0 [facility] Comment on above: Performed By: #### P T, KAREN, ETOH, CBC, OSMO, LACTIC, ACET, PTT #### [address] VBG Draw Site Venous Normal [facility] Comment on above: Performed By: #### P T, KAREN, ETOH, CBC, OSMO, LACTIC, ACET, PTT #### [address] VBG Frac Inspired O2 21 % Normal [facility] Comment on above: Performed By: #### P T, KAREN, ETOH, CBC, OSMO, LACTIC, ACET, PTT #### [address] VBG O2 Content 8.5 mmol/L Normal 6.6-9.7 [facility] Comment on above: Performed By: #### P T, KAREN, ETOH, CBC, OSMO, LACTIC, ACET, PTT #### [address] VBG Oxygen Saturation 93.9 % Off scale high 73.0-76.0 [facility] Comment on above: Performed By: #### P T, KAREN, ETOH, CBC, OSMO, LACTIC, ACET, PTT #### [facility] [address] VBG PCO2 43.2 mm[Hg] Normal 38.0-50.0 [facility] Comment on above: Performed By: #### P T, KAREN, ETOH, CBC, OSMO, LACTIC, ACET, PTT #### [facility] [address] VBG PH Venous PH 7.36 Normal 7.32-7.43 [facility] Comment on above: Performed By: #### P T, KAREN, ETOH, CBC, OSMO, LACTIC, ACET, PTT #### [address] VBG PO2 64.9 mm[Hg] High 35.0-45.0 [facility] Comment on above: Performed By: #### P T, KAREN, ETOH, CBC, OSMO, LACTIC, ACET, PTT #### [address] XR chest 1V portableon 09-22 XR chest 1V portable [facility] [place] [address] [place] [address] XRay Report Signed Patient: Jaye Coles MR#: [id number] 3 : 1980 Acct:[id number] Age/Sex: 42 / M ADM Date: 09/23/23 Loc: ER Room: Type: [facility] ER Attending Dr: Copies to: Nirmal Hernandez DO Ordering Provider: Nirmal Hernandez DO Date of Service: 09/23/23 XR/XR chest 1V portable: OVERDOSE PORTABLE AP ERECT CHEST 1809 hours CLINICAL HISTORY: Patient found down following overdose. Shallow respirations. COMPARISON: 09/07/2018 There is a battery pack on the left with lead extending up to the neck. There is continued shallow inspiration with potential minor basilar atelectasis or scarring on the left. There is no other consolidation. No sizable effusion or pneumothorax is seen. The heart is within normal limits for size. The bony structures are intact. XR/XR chest 1V portable IMPRESSION: SHALLOW INSPIRATION. NO DEFINITE ACUTE FINDINGS. Impression dictated by: Carol Ann Ennis M.D.09/23/2023 7:35 PM Dictation Location: [place] [address] Transcribed By: SAKINA 09/23/231934 Dictated By: Carol Ann Ennis MD 09/23/231930 Signed By: 09/23/231934 Normal [facility] CNPRosemary 09-17-2023 CNPN Telephone (NE50MN) -- JAYE COLES ([id number]) 1980 M Date Time Provider Department 09/17/23 JOHANN AWAD NE50MN During your visit today, we recorded the following information about you: Viviane Bustamante 09/17/2023 8:33 AM Signed General call : Full name of person calling: Jaye Coles Relationship to patient: Self Phone # : [phone] Reason for call: Patient state he has a stitch that is sticking out of his neck that shouldn't be. Patient of Aida Quiroz PA-C 09/17/2023 8:36 AM Signed Recommend Jaye send a picture via Ablynx Geovanna Milian RN 09/17/2023 8:55 AM Signed Spoke with Mr. Coles reviewed to upload picture to [employer]lynx he is not familiar with sending messages plan was for me to send message and he reply with picture if unable then to call the office back. back up plan is to FU with PCP or use of urgent care NICHOLAS Falk Kimberly L, RN 09/17/2023 10:57 AM Signed pictures received in Ablynx now being addressed in Ablynx. Geovanna Milian RN Allergies As of Date: 09/17/2023 Noted Allergy Reaction KEPPRA (LEVETIRACETAM) 07/31/2010 14 - Other: See Comments Comments: Increases his ADHD KETOROLAC TROMETHAMINE 09/14/2016 16 - Unknown Comments: unknown PRISTIQ (DESVENLAFAXINE) 01/12/2014 14 - Other: See Comments Comments: sz Date Reviewed: 08/31/2023 Reviewed by: Pam Palomares RN - Fully Assessed Reason for Visit: General [Other] Cmt: Stitch Popping Out Of Neck Prescriptions as of 09/17/2023 - QUEtiapine (SEROQUEL) 200 mg tablet take 1 tablet by mouth every night at bedtime - clonazePAM (KLONOPIN) 2 mg tablet Take 1 tablet by mouth three times a day for 180 days. Take one(1) tablet three times daily. - AIMOVIG AUTOINJECTOR 140 mg/mL auto-injector INJECT 1 ML SUBCUTANEOUSLY ONCE EVERY MONTH. - lurasidone (LATUDA) 80 mg tablet TAKE 1 TABLET BY MOUTH DAILY WITH DINNER *LOWER THE SEROQUEL TO 100MG IN THE EVENING* - simvastatin (ZOCOR) 20 mg tablet Take 20 mg by mouth every evening. - ibuprofen (MOTRIN) 800 mg tablet Take 800 mg by mouth three times a day as needed. - diclofenac, EC, (VOLTAREN) 75 mg EC tablet Take 1 tablet by mouth every 12 hours. - lacosamide (VIMPAT) 100 mg tab Take 1 tablet by mouth two times a day. - promethazine (PHENERGAN) 25 mg tablet 1 po tid prn headache or nausea - QUEtiapine (SEROQUEL) 50 mg tablet take 1 tablet by mouth three times daily as needed for anxiety - rizatriptan (MAXALT-ENVIRONMENTAL SERVICES WORKER) 10 mg disintegrating tablet Take 1 tablet [...] and PS 4-8cmh2O. His DME company is [place] , new mask to fit patient preference, [...] (FLONASE) 50 mcg/actuation nasal spray Use 1 [place] in each nostril twice daily. - albuterol HFA (PROVENTIL HFA, VENTOLIN HFA) 90 mcg/actuation inhaler Inhale 1-2 Puffs as instructed as needed for Wheezing/Shortness of Breath. Problem List As Of Date 09/17/2023 Noted Resolved Epilepsy (HCC) [G40.909] 06/18/2004 Epilepsy [...] remission*09/02/2021 Migraine without aura, intractable, with status*12/22/2022 Severe mixed bipolar I disorder without psychot*12/2 (more content not included)... Normal [facility] ANES POSTPROC EVALon 024 ANES POSTPROC EVAL HNO ID: [id number] Author: JULIETTE BRANTLEY MD Service: ? Author Type: Anesthesiologist Type: Anesthesia Postprocedure Evaluation Filed: 08/31/2023 11:34 Note Text: POST ANESTHESIA EVALUATION NOTE : 1980 Procedure Summary Date: 08/31/23 Room / Location: [address] Anesthesia Start: 728 Anesthesia Stop: 1013 Procedure: REVISION OR REPLACE OF CRANIAL NERVE NEUROSTIMULATOR ELECTRODE ARRAY INCLUDING CONNECTION TO EXISTING PULSE GENERATOR (Left: Head) Diagnosis: Partial epilepsy with impairment of consciousness, intractable (HCC) (Partial epilepsy with impairment of consciousness, intractable (HCC) [G40.219]) Surgeons: Johann Awad MD Responsible Provider: Juliette Brantley MD Anesthesia Type: general ASA Status: 3 Anesthesia Type: general Airway Type: ETT Last Vitals Vitals Value Taken Time BP 131/76 08/31/23 1105 Temp 36.4 ?C (97.5 ?F) 08/31/23 1105 Pulse 84 08/31/23 1105 Resp 18 08/31/23 1105 SpO2 96 % 08/31/23 1105 Post Anesthesia Patient Status Patient Evaluation: bedside. Anticipated Disposition: phase 2 then home. Neurological Status: aware and responsive. Pulmonary Status: breathing comfortably on room air Airway Control: returned to baseline unsupported. Cardiovascular Status: stable. Pain Management: clinically adequate Postoperative Hydration: acceptable. Intraoperative Events: no significant anesthesia events Post Operative Nausea/Vomiting Status: no significant post operative nausea or vomiting Recommendation: further care per PACU/ICU/floor team. Anesthesia Observations No Documentation SIGNATURE: Juliette Brantley MD PATIENT NAME: Jaye Coles DATE: August 31, 2023 TIME: 11:34 AM CSN: [id number] Normal [facility] ANES PRE-OPon 08-31-2023 ANES PRE-OP HNO ID: [id number] Author: JULIETTE BRANTLEY MD Service: ? Author Type: Anesthesiologist Type: Anesthesia Preprocedure Evaluation Filed: 08/31/2023 07:10 Note Text: ANESTHESIOLOGY DAY OF SURGERY NOTE : 1980 Procedure Information Date/Time: 08/31/23729 Procedure: REVISION OR REPLACE OF CRANIAL NERVE NEUROSTIMULATOR ELECTRODE ARRAY INCLUDING CONNECTION TO EXISTING PULSE GENERATOR (Left: Head) Location: [facility] Surgeons: Johann Awad MD Estimated body mass index is 30.78 kg/m? as calculated from the following: Height as of 08/26/23: 177.8 cm (5' 10 ). Weight as of 08/26/23: 97.3 kg (214 lb 8.1 oz). 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 Tracheostomy tube not present Mallampati: II. TM distance: >3 FB. Neck ROM: full ROM without neurological symptoms. Mouth opening: adequate. Short neck: no. Thick neck: no DENTAL Dental findings: missing tooth/teeth. II - ANESTHESIA PLAN ASA Score: 3 Anesthetic Plan: general Airway type: ETT NPO Status: adequate Beta Jeremías Monitoring Plan Monitoring plan: standard ASA. Post Procedure Analgesic Plan Postoperative analgesic plan: multimodal analgesia. Informed Consent Anesthetic risks, benefits, alternatives, personnel and consent discussed: yes. Patient / Responsible [employer] Party agrees to proceed: yes Patient / Surrogate agrees to blood products: Yes Significant changes in the patient condition since the History and Physical, not otherwise documented in primary service progress note: no. Potential Anesthesia issues that may suggest increased risk of complications or contraindication to planned procedure: none. Vitals Value Taken Time BP 126/90 08/31/23 0614 Pulse 78 08/31/23 0614 Resp 18 08/31/23613 Temp 36.7 ?C (98.1 ?F) 08/31/23613 SpO2 97 % 08/31/23613 Facility-Administered Medications as of 08/31/2023 Medication Dose Route Frequency - lidocaine (PF) 10 mg/mL (1 %) 1-2 mg injection (XYLOCAINE) 0.1-0.2 mL INTRADERMAL PRN Or - lidocaine 1% 0.25 mL subcutaneous j-tip syringe (XYLOCAINE) 0.25 mL SUBCUTANEOUS PRN - lactated ringers iv infusion 5-30 mL/hr INTRAVENOUS CONTINUOUS - NaCl 0.9% iv flush bag 20 mL INTRAVENOUS PRN - ceFAZolin iv piggyback 2 g in D5W (iso-osmotic) 100 mL (ANCEF) 2 g INTRAVENOUS Pre-Op Once Outpatient Medications as of 08/31/2023 Medication Sig - clonazePAM (KLONOPIN) 2 mg tablet Take 1 tablet by mouth three times a day for 180 days. Take one(1) tablet three times daily. - AIMOVIG AUTOINJECTOR 140 mg/mL auto-injector INJECT 1 ML SUBCUTANEOUSLY ONCE EVERY MONTH. - lurasidone (LATUDA) 80 mg tablet TAKE 1 TABLET BY MOUTH DAILY WITH DINNER *LOWER THE SEROQUEL TO 100MG IN THE EVENING* - simvastatin (ZOCOR) 20 mg tablet Take 20 mg by mouth every evening. - diclofenac, EC, (VOLTAREN) 75 mg EC tablet Take 1 tablet by mouth every 12 hours. - lacosamide (VIMPAT) 100 mg tab Take 1 tablet by mouth two times a day. - QUEtiapine (SEROQUEL) 50 mg tablet take 1 tablet by mouth three times daily as needed for anxiety - sertraline (ZOLOFT) 100 mg tablet Take 3 tablets by mouth once daily. - ibuprofen (MOTRIN) 800 mg tablet Take 800 mg by mouth three times a day as needed. - promethazine (PHENERGAN) 25 mg tablet 1 po tid prn headache or nausea - rizatriptan (MAXALT-ENVIRONMENTAL SERVICES WORKER) 10 mg disintegrating tablet Take 1 tablet by mouth as needed (at onset of headache. May repeat after 2 hours.). Do not exceed 30 mg per day. - nadolol (CORGARD) 80 mg tablet Take 1 tablet by mouth once daily. - benzocaine-menthol (CEPACOL) 15-3.6 mg lozg Use 1 Lozenge as instructed every 2 hours as needed. - CPAP Change the pressure of autoBipap with EPAP 5-15 mh2o and PS 4-8cmh2O. His DME company is [place] , new mask to fit patient preference, ramp, humidification and unlimited supplies Please send us machine download in 1 month - CPAP Please send us machine download in 1 month - Cetirizine 10 mg cap Take 1-2 tablets by mouth as needed. - fluticasone (FLONASE) 50 mcg/actuation nasal spray Use 1 [place] in each nostril twice daily. - albuterol HFA (PROVENTIL HFA, VENTOLIN HFA) 90 mcg/actuation inhaler Inhale 1-2 Puffs as instructed as (more content not included)... Normal [facility] BRIEF OP NOTon 08-31-2023 BRIEF OP NOT HNO ID: [id number] Author: SEMAJ POSADA MD Service: Neurosurgery Author Type: Resident Type: Brief Op Note Filed: 08/31/2023 09:49 Note Text: BRIEF OPERATIVE / PROCEDURE NOTE LOG ID: [id number] SURGERY/PROCEDURE DATE: 08/31/2023 INCISION/PROCEDURE START TIME: 8:09 AM INCISION CLOSE/PROCEDURE END TIME: 9:44 AM SURGEON(S)/PROCEDURALIST(S ) AND SCALP TREATMENT OPERATOR(S): Surgeon(s) and Role: * Johann Awad MD - Primary * Semaj Posada MD - Resident - Assisting * Ghulam Herman MD - Resident - Assisting No Additional Staff SURGERY/PROCEDURE(S): Replacement of left VNS generator and revision of distal positioning of lead ANESTHESIA: General FINDINGS: Generator (model 106) replaced with good impedance. Distal aspect of lead in the superficial neck was released free from scar and tunneled back to the chest via deeper layer of tissue. ESTIMATED BLOOD LOSS: 5 mls SPECIMENS: ID Type Source Tests Collected by Time Destination A : Generator Implant/Device/Foreign Body Hardware/Device/Foreign Body SURGICAL PATHOLOGY Johann Awad MD 08/31/2023 8:33 AM COMPLICATIONS: None CLOSURE TECHNIQUE: Primary PRE-OP/PRE-PROCEDURE DIAGNOSIS: Medically refractory epilepsy POST-OP/POST-PROCEDURE DIAGNOSIS: Same as Preop SIGNATURE: Semaj Posada MD PATIENT NAME: Jaye Coles DATE: August 31, 2023 TIME: 9:46 AM Normal [facility] OPERATIVE NOon 08-31-2023 OPERATIVE NO HNO ID: [id number] Author: JOHANN AWAD MD Service: Neurosurgery Author Type: Physician Type: Operative Report Filed: 08/31/2023 09:57 Note Text: OPERATIVE/PROCEDURE REPORT LOG ID: [id number] SURGERY/PROCEDURE DATE: 08/31/2023 INCISION/PROCEDURE START TIME: 8:09 AM INCISION CLOSE/PROCEDURE END TIME: 9:44 AM SURGEON(S)/PROCEDURALIST(S ) AND SCALP TREATMENT OPERATOR(S): Surgeon(s) and Role: * Johann Awad MD - Primary * Semaj Posada MD - Resident - Assisting * Ghulam Herman MD - Resident - Assisting No Additional Staff SURGERY/PROCEDURE(S): Replacement of left vagal nerve generator and read tunneling of left vagal nerve electrode ANESTHESIA: General SURGERY/PROCEDURE DETAILS: Patient was brought to the operating room and placed under general endotracheal anesthesia. His left neck and chest were sterilely prepped and draped. Both incisions were opened sharply with a #10 scalpel. The old VNS generator was isolated and removed and disconnected from the lead. The lead was pulled from the chest incision through the neck. It was then tunneled deeper in the subcutaneous tissue. It was connected to a new VNS generator and the system was tested. The system was turned on at its old settings. Both wounds were irrigated and closed anatomically. Suture used was absorbable. 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 Item Serial No. Substation Supervisor Lot No. LRB No. Used Action GENERATOR VNS THERAPY ASPIRESR THK7MM NEUROSTIMULATOR 14CC 1 PIN LEAD - [id number] Neurostimulator GENERATOR VNS THERAPY ASPIRESR THK7MM NEUROSTIMULATOR 14CC 1 PIN LEAD [id number] [facility] Left 1 Implanted DRAINS: None COMPLICATIONS: None CLOSURE TECHNIQUE: Primary PARTICIPATION IN SURGERY/PROCEDURE: I/primary surgeon/proceduralist performed the procedure with assistance. SIGNATURE: Johann Awad MD PATIENT NAME: Jaye Coles DATE: August 31, 2023 TIME: 9:56 AM Normal [facility] SURGICAL PATHOLOGYon 024 CASE REPORT Normal [facility] Comment on above: Order Comment: Speci men Type: DEVICE SPECIMENOrdering Facility: [facility] Address: [address] [place] [address] Result Comment: Surg ical Pathology Report Case: [id number] Authorizing Provider: Johann Awad MD Collected: 08/31/2023 08:33 AM Ordering Location: Admitting Received: 08/31/2023 10:21 AM Pathologist: Piedad Quinn MD Specimen: Hardware/Device/Foreign Body, Generator Performed By: #### S ####[facility] LABCLIA [id number] [place] [address] [place] CLINICAL HISTORY Normal [facility] Comment on above: Order Comment: Speci men Type: DEVICE SPECIMENOrdering Facility: [facility] Address: [address] [place] [address] Result Comment: Pre- op diagnosis: Partial epilepsy with impairment of consciousness, intractable (HCC) [G40.219] Performed By: #### S ####[facility] LABCLIA [id number] [place] [address] [place] FINAL DIAGNOSIS Normal [facility] Comment on above: Order Comment: Speci men Type: DEVICE SPECIMENOrdering Facility: [facility] Address: [address] [place] [address] Result Comment: A: C hest, device removal: -Metallic battery generator (gross examination only). HG/CG Performed By: #### S ####[facility] LABCLIA [id number] [place] [address] [place] FINAL PERFORMING LAB Normal [facility] Comment on above: Order Comment: Speci men Type: DEVICE SPECIMENOrdering Facility: [facility] Address: [address] [place] [address] Result Comment: Diag nostic interpretation performed at [facility], [address] [place] [address] CLIA# [id number] Legal Administrator: Kendrick Salcedo M.D. Performed By: #### S ####[facility] LABCLIA [id number] [place] [address] [place] GROSS DESCRIPTION Normal [facility] Comment on above: Order Comment: Speci men Type: DEVICE SPECIMENOrdering Facility: [facility] Address: [address] [place] [address] Result Comment: A. H ardware/Device/Foreign Body Received unfixed, labeled as generator is a metallic battery generator that measures 5.1 x 5.1 x 0.6 cm. Inscribed on the surface is Aspire SR MODEL 106 S/N [id number]. No tissue is noted. No sections are submitted. The specimen is shown to Dr. Quinn. The specimen is for gross examination only. CG August 31, 2023 11:26 AM Gross examination performed at [facility], [address] [place] [address] CLIA# [id number] Performed By: #### S ####[facility] LABCLIA [id number] [place] [address] [place] CBC panel Auto (Bld)on 08-25 Erythrocyte distribution width (RBC) [Ratio] 13.1 % Normal 11.5-15.0 [facility] Comment on above: Order Comment: Speci men Type: BLOOD SPECIMENOrdering Facility: [facility] Address: [address] [place] [address] Performed By: #### 5 8410-2 ####[facility] LABCLIA [id number] [place] [address] [place] Hematocrit (Bld) [Volume fraction] 46.0 % Normal 39.0-51.0 [facility] Comment on above: Order Comment: Speci men Type: BLOOD SPECIMENOrdering Facility: [facility] Address: [address] [place] [address] Performed By: #### 5 8410-2 ####[facility] LABIA [id number] [place] [address] [place] Hemoglobin (Bld) [Mass/Vol] 15.0 g/dL Normal 13.0-17.0 [facility] Comment on above: Order Comment: Speci men Type: BLOOD SPECIMENOrdering Facility: [facility] Address: [address] [place] [address] Performed By: #### 5 8410-2 ####[facility] LABIA [id number] [place] [address] [place] MCH (RBC) [Entitic mass] 28.4 pg Normal 26.0-34.0 [facility] Comment on above: Order Comment: Speci men Type: BLOOD SPECIMENOrdering Facility: [facility] Address: [address] [place] [address] Performed By: #### 5 8410-2 ####[facility] LABIA [id number] [place] [address] [place] MCHC (RBC) [Mass/Vol] 32.6 g/dL Normal 30.5-36.0 [facility] Comment on above: Order Comment: Speci men Type: BLOOD SPECIMENOrdering Facility: [facility] Address: [address] [place] [address] Performed By: #### 5 8410-2 ####[facility] LABIA [id number] [place] [address] [place] MCV (RBC) [Entitic vol] 87.0 fL Normal 80.0-100.0 [facility] Comment on above: Order Comment: Speci men Type: BLOOD SPECIMENOrdering Facility: [facility] Address: [address] [place] [address] Performed By: #### 5 8410-2 ####[facility] LABCLIA [id number] [place] [address] [place] Nucleated RBC (Bld) [#/Vol] 10*3/uL Normal <0.01 [facility] Comment on above: Order Comment: Speci men Type: BLOOD SPECIMENOrdering Facility: [facility] Address: [address] [place] [address] Performed By: #### 5 8410-2 ####[facility] LABIA [id number] [place] [address] [place] Platelet mean volume (Bld) [Entitic vol] 9.2 fL Normal 9.0-12.7 [facility] Comment on above: Order Comment: Speci men Type: BLOOD SPECIMENOrdering Facility: [facility] Address: [address] [place] [address] Performed By: #### 5 8410-2 ####[facility] LABIA [id number] [place] [address] [place] Platelets (Bld) [#/Vol] 332 10*3/uL Normal 150-400 [facility] Comment on above: Order Comment: Speci men Type: BLOOD SPECIMENOrdering Facility: [facility] Address: [address] [place] [address] Performed By: #### 5 8410-2 ####[facility] LABIA [id number] [place] [address] [place] RBC (Bld) [#/Vol] 5.29 10*6/uL Normal 4.20-6.00 [facility] Comment on above: Order Comment: Speci men Type: BLOOD SPECIMENOrdering Facility: [facility] Address: [address] [place] [address] Performed By: #### 5 8410-2 ####[facility] LABIA [id number] [place] [address] [place] WBC (Bld) [#/Vol] 6.83 10*3/uL Normal 3.70-11.00 [facility] Comment on above: Order Comment: Speci men Type: BLOOD SPECIMENOrdering Facility: [facility] Address: [address] [place] [address] Performed By: #### 5 8410-2 ####[facility] LABCLIA [id number] [address] [id number] [address] [place] CNCOon 08-26-2023 CNCO Letter Text Normal [facility] CNNURSEon 08-26-2023 CNNURSE Nurse Visit (NEUSES) -- JAYE COLES ([id number]) 1980 M Date Time Provider Department 08/26/23 3:30 PM KRISTYN QUINTEROS During your visit today, we recorded the following information about you: Kristyn Quinteros RN 08/26/2023 12:53 PM Signed Nurse visit for preoperative education. Plan of care and inpatient/outpatient teams discussed. Post operative restrictions and follow up care and timeline discussed. Surgical binder given to patient - instructions provided. All questions answered. 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 Take one(1) tablet three times daily. - AIMOVIG AUTOINJECTOR 140 mg/mL auto-injector INJECT 1 ML SUBCUTANEOUSLY ONCE EVERY MONTH. - lurasidone (LATUDA) 80 mg tablet TAKE 1 TABLET BY MOUTH DAILY WITH DINNER *LOWER THE SEROQUEL TO 100MG IN THE EVENING* - simvastatin (ZOCOR) 20 mg tablet Take 20 mg by mouth every evening. - ibuprofen (MOTRIN) 800 mg tablet Take 800 mg by mouth three times a day as needed. - diclofenac, EC, (VOLTAREN) 75 mg EC tablet Take 1 tablet by mouth every 12 hours. - lacosamide (VIMPAT) 100 mg tab Take 1 tablet by mouth two times a day. - promethazine (PHENERGAN) 25 mg tablet 1 po tid prn headache or nausea - QUEtiapine (SEROQUEL) 50 mg tablet take 1 tablet by mouth three times daily as needed for anxiety - rizatriptan (MAXALT-ENVIRONMENTAL SERVICES WORKER) 10 mg disintegrating tablet Take 1 tablet [...] and PS 4-8cmh2O. His DME company is [employer] , new mask to fit patient preference, [...] (FLONASE) 50 mcg/actuation nasal spray Use 1 [place] in each nostril twice daily. - albuterol HFA (PROVENTIL HFA, VENTOLIN HFA) 90 mcg/actuation inhaler Inhale 1-2 Puffs as instructed as needed for Wheezing/Shortness of Breath. Problem List As Of Date 08/26/2023 Noted Resolved Epilepsy (HCC) [G40.909] 06/18/2004 Epilepsy [...] remission*09/02/2021 Migraine without aura, intractable, with status*12/22/2022 Severe mixed bipolar I disorder without psychot*05/12/2023 Post-traumatic stress disorder, chronic [F43.12]05/12/2023 Anxiety disorder [F41.9] 05/12/2023 Bipolar I disorder, most recent episode depress*05/27/2023 HTN (hypertension) [I10] 08/26/2023 Encounter Status:Closed by KRISTYN QUINTEROS on 08/26/23 Normal [facility] CNOVon 08-26-2023 CNOV Office Visit (MONIE ) -- SUSANAJAYE Morales ([id number]) 1980 M Date Time Provider Department 08/26/23 3:00 PM JOHANN AWAD During your visit today, we recorded the following information about you: Johann Awad MD 08/26/2023 3:30 PM Signed Established patient. He has a left vagal nerve stimulator and electrode. He feels this is extremely beneficial to the treatment of his epilepsy. The left generator now is running low on battery life. The electrode is subcutaneous and is bothering him when he turns his head. We discussed revision of both. He has very appropriate questions. Johann Awad MD I spent 30 minutes in the visit, with more than 50% of the total [id number]-[id number] time of the visit in counseling / coordination of care. Referring Provider: JOHANN AWAD [[id number]] Allergies As of Date: 08/26/2023 Noted Allergy Reaction KEPPRA (LEVETIRACETAM) 07/31/2010 14 - Other: See Comments Comments: Increases his ADHD KETOROLAC TROMETHAMINE 09/14/2016 16 - Unknown Comments: unknown PRISTIQ (DESVENLAFAXINE) 01/12/2014 14 - Other: See Comments Comments: sz Date Reviewed: 08/26/2023 Reviewed by: Jojo Nayak PA-C - Fully Assessed Reason for Visit: Pre-Op Exam [87] Visit Diagnosis:Partial epilepsy with impairment of consciousness, intractable (HCC) [G40.219] Order(s):CONSULT TO NEUROSURGERY [19990524] Order #: [id number]: 1 Prescriptions as of 08/26/2023 - QUEtiapine (SEROQUEL) 200 mg tablet take 1 tablet by mouth every night at bedtime - clonazePAM (KLONOPIN) 2 mg tablet Take 1 tablet by mouth three times a day for 180 days. Take one(1) tablet three times daily. - AIMOVIG AUTOINJECTOR 140 mg/mL auto-injector INJECT 1 ML SUBCUTANEOUSLY ONCE EVERY MONTH. - lurasidone (LATUDA) 80 mg tablet TAKE 1 TABLET BY MOUTH DAILY WITH DINNER *LOWER THE SEROQUEL TO 100MG IN THE EVENING* - simvastatin (ZOCOR) 20 mg tablet Take 20 mg by mouth every evening. - ibuprofen (MOTRIN) 800 mg tablet Take 800 mg by mouth three times a day as needed. - diclofenac, EC, (VOLTAREN) 75 mg EC tablet Take 1 tablet by mouth every 12 hours. - lacosamide (VIMPAT) 100 mg tab Take 1 tablet by mouth two times a day. - promethazine (PHENERGAN) 25 mg tablet 1 po tid prn headache or nausea - QUEtiapine (SEROQUEL) 50 mg tablet take 1 tablet by mouth three times daily as needed for anxiety - rizatriptan (MAXALT-ENVIRONMENTAL SERVICES WORKER) 10 mg disintegrating tablet Take 1 tablet [...] and PS 4-8cmh2O. His DME company is [employer] , [employer] mask to fit patient preference, ramp, humidification [...] (FLONASE) 50 mcg/actuation nasal spray Use 1 [place] in each nostril twice daily. - albuterol HFA (PROVENTIL HFA, VENTOLIN HFA) 90 mcg/actuation inhaler Inhale 1-2 Puffs as instructed as needed for Wheezing/Shortness of Breath. Problem List As Of Date 08/26/2023 Noted Resolved Epilepsy (HCC) [G40.909] 06/18/2004 Epilepsy [...] remission*09/02/2021 Migraine without aura, intractable, with status*12/22/2022 Severe mixed bipolar I disorder without psychot*05/12/2023 Post-traumatic stress disorder, chronic [F43.12]05/12/2023 Anxiety disorder [F41.9] 05/12/ more content not included)... Normal [facility] Comprehensive metabolic 2000 panelon 08-26-2023 Albumin [Mass/Vol] 4.3 g/dL Normal 3.9-4.9 [facility] Comment on above: Order Comment: Speci men Type: BLOOD SPECIMENOrdering Facility: [facility] Address: [address] [place] [address] Performed By: #### 2 4323-8 ####[facility] LABCLIA [id number] [place] [address] [place] ALP [Catalytic activity/Vol] 56 U/L Normal 38-113 [facility] Comment on above: Order Comment: Speci men Type: BLOOD SPECIMENOrdering Facility: [facility] Address: [address] [place] [address] Performed By: #### 2 4323-8 ####[facility] LABCLIA [id number] [place] [address] [place] ALT [Catalytic activity/Vol] 21 U/L Normal 10-54 [facility] Comment on above: Order Comment: Speci men Type: BLOOD SPECIMENOrdering Facility: [facility] Address: [address] [place] [address] Performed By: #### 2 4323-8 ####[facility] LABCLIA [id number] [place] [address] [place] Anion gap [Moles/Vol] 12 mmol/L Normal 9-18 [facility] Comment on above: Order Comment: Speci men Type: BLOOD SPECIMENOrdering Facility: [facility] Address: [address] [place] [address] Performed By: #### 2 4323-8 ####[facility] LABCLIA [id number] [place] [address] [place] AST [Catalytic activity/Vol] 15 U/L Normal 14-40 [facility] Comment on above: Order Comment: Speci men Type: BLOOD SPECIMENOrdering Facility: [facility] Address: [address] [place] [address] Performed By: #### 2 4323-8 ####[facility] LABCLIA [id number] [place] [address] [place] Bilirubin [Mass/Vol] 0.6 mg/dL Normal 0.2-1.3 [facility] Comment on above: Order Comment: Speci men Type: BLOOD SPECIMENOrdering Facility: [facility] Address: [address] [id number] Performed By: #### 2 4323-8 ####[facility] LABCLIA [id number] [place] [address] [place] Calcium [Mass/Vol] 9.5 mg/dL Normal 8.5-10.2 [facility] Comment on above: Order Comment: Speci men Type: BLOOD SPECIMENOrdering Facility: [facility] Address: [address] [place] [address] Performed By: #### 2 4323-8 ####[facility] LABCLIA [id number] [place] [address] [place] Chloride [Moles/Vol] 102 mmol/L Normal 97-105 [facility] Comment on above: Order Comment: Speci men Type: BLOOD SPECIMENOrdering Facility: [facility] Address: [address] [place] [address] Performed By: #### 2 4323-8 ####[facility] LABCLIA [id number] [place] [address] [place] CO2 [Moles/Vol] 25 mmol/L Normal 22-30 [facility] Comment on above: Order Comment: Speci men Type: BLOOD SPECIMENOrdering Facility: [facility] Address: [address] [place] [address] Performed By: #### 2 4323-8 ####[facility] LABCLIA [id number] [place] [id number] [place] Creatinine [Mass/Vol] 0.67 mg/dL Low 0.73-1.22 [facility] Comment on above: Order Comment: Speci men Type: BLOOD SPECIMENOrdering Facility: [facility] Address: [address] [place], [place] [address] Performed By: #### 2 4323-8 ####[facility] LABCLIA [id number] [place] [address] [place] Creatinine and Glomerular filtration rate.predicted panel (S/P/Bld) 121 mL/min/1.73m??? Normal >=60 [facility] Comment on above: Order Comment: Aurora garcia Type: BLOOD SPECIMENOrdering Facility: [facility] Address: [address] [place] [address] Result Comment: Mandie mated Glomerular Filtration Rate (eGFR) is calculated using the 2020 CKD-EPI creatinine equation. This equation utilizes serum creatinine, sex, and age as parameters. The creatinine assay has traceable calibration to isotope dilution-mass spectrometry. Refer to KDIGO guidelines for clinical interpretation. In patients with unstable renal function, e.g. those with acute kidney injury, the eGFR may not accurately reflect actual GFR. Performed By: #### 2 4323-8 ####[facility] LABCLIA [id number] [place] [address] [place] Glucose [Mass/Vol] 113 mg/dL High 74-99 [facility] Comment on above: Order Comment: Aurora garcia Type: BLOOD SPECIMENOrdering Facility: [facility] Address: [address] [place] [address] Result Comment: The [place] Diabetes Association (ADA) provides guidance for cutoff values for fasting glucose and random glucose. The ADA defines fasting as no caloric intake for at least 8 hours. Fasting plasma glucose results between 100 to 125 mg/dL indicate increased risk for diabetes (prediabetes). Fasting plasma glucose results greater than or equal to 126 mg/dL meet the criteria for diagnosis of diabetes. In the absence of unequivocal hyperglycemia, results should be confirmed by repeat testing. In a patient with classic symptoms of hyperglycemia or hyperglycemic crisis, random plasma glucose results greater than or equal to 200 mg/dL meet the criteria for diagnosis of diabetes. Reference: Standards of Medical Care in Diabetes 2016, [place] Diabetes Association. Diabetes Care. 2016.39(Suppl 1). Performed By: #### 2 4323-8 ####[facility] LABCLIA [id number] [place] [address] [place] Potassium [Moles/Vol] 4.3 mmol/L Normal 3.7-5.1 [facility] Comment on above: Order Comment: Speci men Type: BLOOD SPECIMENOrdering Facility: [facility] Address: [address] [place] [address] Performed By: #### 2 4323-8 ####[facility] LABCLIA [id number] [place] [address] [place] Protein [Mass/Vol] 6.7 g/dL Normal 6.3-8.0 [facility] Comment on above: Order Comment: Speci men Type: BLOOD SPECIMENOrdering Facility: [facility] Address: [address] [place] [address] Performed By: #### 2 4323-8 ####[facility] LABCLIA [id number] [place] [address] [place] Sodium [Moles/Vol] 139 mmol/L Normal 136-144 [facility] Comment on above: Order Comment: Speci men Type: BLOOD SPECIMENOrdering Facility: [facility] Address: [address] [place] [address] Performed By: #### 2 4323-8 ####[facility] LABCLIA [id number] [place] [address] [place] Urea nitrogen [Mass/Vol] 9 mg/dL Normal 9-24 [facility] Comment on above: Order Comment: Speci men Type: BLOOD SPECIMENOrdering Facility: [facility] Address: [address] [place] [address] Performed By: #### 2 4323-8 ####[facility] LABCLIA [id number] [place] [address] [place] ECG COMPLETEon 08-26-2023 ECG COMPLETE Ventricular Rate : 7 9 BPM Atrial Rate : 79 BPM P-R Interval : 160 ms QRS Duration : 106 ms Q-T Interval : 370 ms QTC Calculation(Bazett) : 424 ms Calculated P [place] : 14 degrees Calculated R [place] : 20 degrees Calculated T [place] : 28 degrees NORMAL SINUS RHYTHM NORMAL ECG Confirmed by JEWELL DENTON MD (22) on 08/28/2023 3:22:15 PM NAME : JAYE COLES PID : [id number] : 1980 Gender : Male Race : ORD : [id number] Procedure Date : Aug 26 2023 08:52:49 Edit Date : Aug 28 2023 15:23:13 Diagnosis: NORMAL SINUS RHYTHM NORMAL ECG Confirmed by JEWELL DENTON MD (22) on 08/28/2023 3:22:15 PM Test Reason : Location : 119 : A17 Overread By : JEWELL DENTON MD Edited By : JEWELL DENTON MD Referred By : JOJO NAYAK Acquired by : NATALIA POND [facility] HISTORY PHYSICALon HISTORY PHYSICAL HNO ID: [id number] Author: JOJO NAYAK PA-C Service: ? Author Type: Physician Project Management Type: H&P Filed: 08/27/2023 10:04 Note Text: HISTORY AND PHYSICAL EXAMINATION SERVICE DATE: 08/26/2023 SERVICE TIME: 10:04 AM PRIMARY CARE PHYSICIAN: Uriel Nunez MD Assessment Patient has the following medical conditions which may affect alexander-operative course: HTN (hypertension) Stable, on rx. BP 141/90 in office today. HIMA (obstructive sleep apnea) Compliant with BiPAP. Severe mixed bipolar I disorder without psychotic features (HCC) On rx. Migraine without aura, intractable, with status migrainosus On Aimovig, Maxalt PRN. Follows with neurology/headache specialist. 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 On Klonopin, Vimpat. Last seizure in 2012. Follows with neurology. Depression with anxiety On rx. Arechiga Activity Status Index: METS: Climb a flight of stairs or walk up a hill (5.50 METs) DASI Score: 5.5 Patient denies any chest pain or undue shortness of breath with the above physical activity. Clinical Frailty Scale: 3. Well, with treated comorbid disease STOP-Bang Score: STOP-Bang Score: (Compliant with BiPAP. ) [id number] Score: Hypertension history: Yes [id number] Score: ANESTHESIA FINDINGS: Intubation History: No history of difficult intubation Significant Anesthesia Considerations: States he has been told I am difficult to stay knocked out potential difficult IV/vein access Airway History: No history of difficult airway I - PHYSICAL EVALUATION AIRWAY Patient intubated: No. Tracheostomy tube not present Mallampati: III. TM distance: >3 FB. Neck ROM: full ROM without neurological symptoms. Mouth opening: adequate. Short neck: no. Thick neck: no Lip Bite Test: I DENTAL Dental findings: missing tooth/teeth and broken tooth. II - ANESTHESIA PLAN Anesthetic plan additional comments: *PACC/TCI - anesthesia choice. Beta Jeremías Monitoring Plan Post Procedure Analgesic Plan Prepared for Surgery: optimally prepared for surgery. CONSULTS: Patient does not require consults for optimization at this time Planned Anesthetic: anesthesia choice The Following Tests/Procedures Have Been Initiated: EKG Labs per surgical service. REASON FOR VISIT: Jaye Coles is a 42 year old male who is scheduled for Procedure(s): REVISION OR REPLACE OF CRANIAL NERVE NEUROSTIMULATOR ELECTRODE ARRAY INCLUDING CONNECTION TO EXISTING PULSE GENERATOR (Left) at the request of Dr. Johann Awad for consultation. My final recommendation will be communicated back to the requesting physician by way of shared medical record or letter. Subjective The patient has the following: ACTIVE PROBLEM LIST Epilepsy (Hcc) Epilepsy With Altered Consciousness Without Intractable Epilepsy (Hcc) Depression With Anxiety Respiratory Failure Requiring Intubation (Hcc) Hx of Suicide Attempt Bipolar II Disorder (Hcc) Obesity, Class I, Bmi 30-34.9 Partial Epilepsy With Impairment of Consciousness, Intractable (Hcc) Gastroesophageal Reflux Disease Without Esophagitis S/P Placement of Vns (Vagus Nerve Stimulation) Device Psychophysiologic Insomnia Hima (Obstructive Sleep Apnea) Generalized Epilepsy (Hcc) Acute Postoperative Pain Complex Partial Seizures Evolving to Generalized Tonic-Clonic Seizures (Hcc) Recurrent Major Depression in Partial Remission (Hcc) Migraine Without Aura, Intractable, With Status Migrainosus Severe Mixed Bipolar I Disorder Without Psychotic Features (Hcc) Post-Traumatic Stress Disorder, Chronic Anxiety Disorder Bipolar I Disorder, Most Recent Episode Depressed (Hcc) Htn (Hypertension) COVID-19 Immunization Status Overdue - Covid-19 Vaccine (2022- season) Overdue since 01/16/2023 03/11/2021 Imm Admin: COVID-19 original vaccine, age 12+ yr, monovalent ([employer] - PURPLE TOP) 02/18/2021 Imm Admin: COVID-19 original vaccine, age 12+ yr, monovalent ([employer] - PURPLE TOP) CHIEF COMPLAINT: Pre-op evaluation HPI: Patient is a 42 year old year old male who is scheduled for above case on 08/31/2023. 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 VNS shows low battery. He also has pain from the leads in his neck. Denies any fevers, chills, nausea, vomiting, SOB or chest pain. REVIEW OF SYSTEMS: General: Flu one month ago. Took tamiflu, prednisone, amoxicillin. Negative for: weight loss >10% of BW in last 6 months, malaise and fever. Neurological: See HPI. Positive for: headaches and seizures. Negative for: delirium, dementia, TIA and strokes. Respiratory: Uses inhaler with allergies and humidity. Positive for: current cough (Dry cough, related to weather.) and obstructive sleep apnea. Negative for: asthma, COPD, dyspnea, home oxygen, pneumonia within 6 weeks and tobacco use. (more content not included)... Normal [facility] No Panel Informationon 08-[address] [facility] PT panel Coag (PPP)on 2023 INR Coag (PPP) [Relative time] 1.0 {INR} Normal 0.9-1.3 [facility] Comment on above: Order Comment: Speci men Type: BLOOD SPECIMENOrdering Facility: [facility] Address: [address] [place], [place] [address] Result Comment: Suri min K Antagonist (VKA) Therapeutic Range: INR 2 to 3 (Target INR of 2.5) Note: For patients treated with VKA drugs, such as warfarin, the [place] College [employer] Chest Physicians 2012 Guideline recommends a therapeutic INR range of 2 to 3 (target INR of 2.5). This recommendation includes high-risk patients with antiphospholipid syndrome with previous arterial or venous thromboembolism, current-generation mechanical or bioprosthetic aortic heart valve replacement. Note: Patients with mechanical aortic valve replacement and additional risk factors for thromboembolic events (atrial fibrillation, previous thromboembolism, LV dysfunction, hypercoagulable conditions) or an older generation mechanical AVR (i.e., ball in-Cage) or any mechanical MVR should have a INR therapeutic range of 2.5 to 3.5 (target INR of 3). Justin ROGERS, et al. Chest 2012, 141:7S-47S Wild RA, et al. [facility] 2017, 70: 252-289 Performed By: #### 3 4528-0, 05586-3 ####[facility] LABIA [id number] [place] [address] [place] PT Coag (PPP) [Time] 10.7 s Normal 9.7-13.0 [facility] Comment on above: Order Comment: Speci men Type: BLOOD SPECIMENOrdering Facility: [facility] Address: [address] [place] [address] Performed By: #### 3 4528-0, 55210-4 ####[facility] [id number] [place] [address] [place] STAPHYLOCOCCUS AUREUS AND MR SA SCREEN, PCR, NASALon 08-26-2023 S. aureus and MRSA panel SULEIMAN+probe (Nose) Normal Negative [facility] Comment on above: Order Comment: Speci men Type: SWABOrdering Facility: [facility] Address: [address] [place] [address] Result Comment: Nega tive for Staphylococcus aureus by PCR. Negative for MRSA by PCR Performed By: #### S APCR ####[facility] [id number] [place] [address] [place] XR CHEST 2V FRONTAL/LATon XR CHEST 2V FRONTAL/LAT * * *Final Report* * * DATE OF EXAM: Aug 26 2023 9:39AM AOX 5291 - XR CHEST 2V FRONTAL/LAT / PROCEDURE REASON: Preoperative testing * * * * Physician Interpretation * * * * EXAMINATION: CHEST RADIOGRAPH (2 VIEW FRONTAL and LATERAL) CLINICAL HISTORY: Preoperative testing MQ: [id number] EXAM DATE/TIME: 08/26/2023 9:39 AM COMPARISON: 01/07/2022. RESULT: Lines, tubes, and devices: Neurostimulator device with generator overlying the left hemithorax. Lungs and pleura: No consolidation. No lung mass. No pleural effusion. No pneumothorax. Cardiomediastinal silhouette: Normal cardiomediastinal silhouette. Bones and soft tissues: Unremarkable. IMPRESSION: No acute radiographic abnormality. Candy Packer: [facility] Transcribe Date/Time: Aug 26 2023 2:42P Dictated by : BRENNON GRULLON MD This examination was interpreted and the report reviewed and electronically signed by: BRENNON GRULLON MD on Aug 26 2023 2:42PM EST [id number] Normal [facility] XR NECK SOFT TISSUE 2V AP/LA Ton 08-26-2023 XR NECK SOFT TISSUE 2V AP/LAT * * *Final Report* * * DATE OF EXAM: Aug 26 2023 9:39AM AOX 5238 - XR NECK SOFT TISSUE 2V AP/LAT / PROCEDURE REASON: Preoperative testing * * * * Physician Interpretation * * * * Neck Soft tissue radiographs HISTORY: Preoperative testing TECHNIQUE: AP and lateral view of the neck soft tissues COMPARISON: 01/07/2022 FINDINGS: The radius nerve stimulator wire tips at the left cervical soft tissues at the level of C4-5 and the generator at the left upper chest. Appearance is unchanged. The remainder of the neck soft tissues are unremarkable. No acute osseous abnormality. IMPRESSION: 1. Left side vagus nerve stimulator unchanged since the prior exam Candy Packer: [facility] [facility] Transcribe Date/Time: Aug 26 2023 12:56P Dictated by : GUY GREGORY MD This examination was interpreted and the report reviewed and electronically signed by: GUY GREGORY MD on Aug 26 2023 12:59PM EST [id number] Normal [facility] aPTT PPPon 08-26-2023 aPTT Coag (PPP) [Time] 26.2 s Normal 23.0-32.4 [facility] Comment on above: Order Comment: Speci men Type: BLOOD SPECIMENOrdering Facility: [facility] Address: [address] [place] [address] Performed By: #### 3 4528-0, 37906-4 ####[facility] LABCLIA [id number] [facility] [id number] [place] CNPNon 08-10-2023 CNPN Telephone (NE50MN) -- JAYE COLES ([id number]) 1980 M Date Time Provider Department 08/10/23 JOHANN AWAD NE50MN During your visit today, we recorded the following information about you: Joann Adm Song Viviane 08/10/2023 3:14 PM Signed General call : Full name of person calling: Relationship to patient: Self Phone # : [phone] Reason for call: Patient needs to discuss surgery time to arrange for transportation. Patient of Kristyn Brand RN 08/11/2023 8:41 AM Signed Spoke with Jaye, Advised he will be first case and need to arrive by 6:45 am. He will call with update once transportation has been arranged. Kristyn Quinteros RN Allergies As of Date: 08/10/2023 Noted Allergy Reaction KEPPRA (LEVETIRACETAM) 07/31/2010 14 - Other: See Comments Comments: Increases his ADHD KETOROLAC TROMETHAMINE 09/14/2016 16 - Unknown Comments: unknown PRISTIQ (DESVENLAFAXINE) 01/12/2014 14 - Other: See Comments Comments: sz Date Reviewed: 06/11/2023 Reviewed by: Mya Tena, CULLED FRUIT PACKER.SUPERVISOR [employer] - Fully Assessed Reason for Visit: Other [3945] Cmt: Surgery Time, Transportation Prescriptions as of 08/11/2023 - clonazePAM (KLONOPIN) 2 mg tablet Take 1 tablet by mouth three times a day for 180 days. Take one(1) tablet three times daily. - AIMOVIG AUTOINJECTOR 140 mg/mL auto-injector INJECT 1 ML SUBCUTANEOUSLY ONCE EVERY MONTH. - QUEtiapine (SEROQUEL) 200 mg tablet take 1 tablet by mouth daily at bedtime - lurasidone (LATUDA) 80 mg tablet TAKE 1 TABLET BY MOUTH DAILY WITH DINNER *LOWER THE SEROQUEL TO 100MG IN THE EVENING* - simvastatin (ZOCOR) 20 mg tablet Take 20 mg by mouth every evening. - ibuprofen (MOTRIN) 800 mg tablet Take 800 mg by mouth three times a day as needed. - diclofenac, EC, (VOLTAREN) 75 mg EC tablet Take 1 tablet by mouth every 12 hours. - lacosamide (VIMPAT) 100 mg tab Take 1 tablet by mouth two times a day. - promethazine (PHENERGAN) 25 mg tablet 1 po tid prn headache or nausea - QUEtiapine (SEROQUEL) 50 mg tablet take 1 tablet by mouth three times daily as needed for anxiety - rizatriptan (MAXALT-ENVIRONMENTAL SERVICES WORKER) 10 mg disintegrating tablet Take 1 tablet [...] and PS 4-8cmh2O. His DME company is [employer] , new mask to fit patient preference, [...] (FLONASE) 50 mcg/actuation nasal spray Use 1 [place] in each nostril twice daily. - albuterol HFA (PROVENTIL HFA, VENTOLIN HFA) 90 mcg/actuation inhaler Inhale 1-2 Puffs as instructed as needed for Wheezing/Shortness of Breath. Problem List As Of Date 08/10/2023 Noted Resolved Epilepsy (HCC) [G40.909] 06/18/2004 Epilepsy [...] remission*09/02/2021 Migraine without aura, intractable, with status*12/22/2022 Severe mixed bipolar I disorder without psychot*05/12/2023 Post-traumatic stress disorder, chronic [F43.12]05/12/2023 Anxiety disorder [F41.9] 05/12/2023 Bipolar I disorder, most recent episode depress*05/27/2023 Encounter Status:Closed by KRISTYN QUINTEROS on 08/11/23 [facility] JAYE COL[facility] ([id number]) 1980 M Date Time Provider Department 08/06/23 LINO MENDIOLA NE50MN During your visit today, we recorded the following information about you: Stephany Carbajal 08/06/2023 1:14 PM Signed Form received: From (agency / facility): [facility] meter maintenance person (if given): Jaye Coles Phone #: [phone] Fax # : [phone] Information requested: Request for physician statement Patient of Colby Macdonald RN 08/06/2023 1:22 PM Signed See 08/03/23 encounter. Reynaldo Braswell RN Allergies As of Date: 08/06/2023 Noted Allergy Reaction KEPPRA (LEVETIRACETAM) 07/31/2010 14 - Other: See Comments Comments: Increases his ADHD KETOROLAC TROMETHAMINE 09/14/2016 16 - Unknown Comments: unknown PRISTIQ (DESVENLAFAXINE) 01/12/2014 14 - Other: See Comments Comments: sz Date Reviewed: 06/11/2023 Reviewed by: Mya Tena APRN.SUPERVISOR [employer] - Fully Assessed Reason for Visit: Forms [913] Cmt: [facility] Prescriptions as of 08/10/2023 - clonazePAM (KLONOPIN) 2 mg tablet Take 1 tablet by mouth three times a day for 180 days. Take one(1) tablet three times daily. - AIMOVIG AUTOINJECTOR 140 mg/mL auto-injector INJECT 1 ML SUBCUTANEOUSLY ONCE EVERY MONTH. - QUEtiapine (SEROQUEL) 200 mg tablet take 1 tablet by mouth daily at bedtime - lurasidone (LATUDA) 80 mg tablet TAKE 1 TABLET BY MOUTH DAILY WITH DINNER *LOWER THE SEROQUEL TO 100MG IN THE EVENING* - simvastatin (ZOCOR) 20 mg tablet Take 20 mg by mouth every evening. - ibuprofen (MOTRIN) 800 mg tablet Take 800 mg by mouth three times a day as needed. - diclofenac, EC, (VOLTAREN) 75 mg EC tablet Take 1 tablet by mouth every 12 hours. - lacosamide (VIMPAT) 100 mg tab Take 1 tablet by mouth two times a day. - promethazine (PHENERGAN) 25 mg tablet 1 po tid prn headache or nausea - QUEtiapine (SEROQUEL) 50 mg tablet take 1 tablet by mouth three times daily as needed for anxiety - rizatriptan (MAXALT-ENVIRONMENTAL SERVICES WORKER) 10 mg disintegrating tablet Take 1 tablet [...] and PS 4-8cmh2O. His DME company is [place] , new mask to fit patient preference, [...] (FLONASE) 50 mcg/actuation nasal spray Use 1 [place] in each nostril twice daily. - albuterol HFA (PROVENTIL HFA, VENTOLIN HFA) 90 mcg/actuation inhaler Inhale 1-2 Puffs as instructed as needed for Wheezing/Shortness of Breath. Problem List As Of Date 08/06/2023 Noted Resolved Epilepsy (HCC) [G40.909] 06/18/2004 Epilepsy [...] remission*09/02/2021 Migraine without aura, intractable, with status*12/22/2022 Severe mixed bipolar I disorder without psychot*05/12/2023 Post-traumatic stress disorder, chronic [F43.12]05/12/2023 Anxiety disorder [F41.9] 05/12/2023 Bipolar I disorder, most recent episode depress*05/27/2023 Encounter Status:Closed by COLBY JACOBS on 08/10/23 [facility] 08-05-2023 [facility] Telephone (NEUSES) -- JAYE COLSE ([id number]) 1980 M Date Time Provider Department 08/05/23 KRISTIN OLSEN During your visit today, we recorded the following information about you: Mily Hodges RN 08/05/2023 12:18 PM Signed Saw neurology 08/02: needs VNS battery replacement: Stimulation Parameters: Current (mA): 1.625 Frequency (Hz): 25 Pulse width (ms): 500 Signal on-time (s): 30 Signal off-time (min.): 0.8 AutoStim Current (mA): Disabled AutoStim pulse width (ms): Disabled AutoStim signal on-time (s): Disabled Magnet Current (mA): 1.875 Magnet pulse width (ms): 500 Magnet signal on-time (s): 60 Lead impedance: 2617 ohms Generator Battery 11-25% Spoke with Jaye - he has had VNS battery change multiple times in the past. Previously with Dr. Awad. He would like to discuss with surgeon replacing the leads as well as the generator, as he feels the leads are raised and painful in his neck. Discussed timeline of preops, surgery and ambulatory stay - he agreed to preops 08/24 and OR 08/30. Surgical request sent. Surgical request sent. 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 Take one(1) tablet three times daily. - AIMOVIG AUTOINJECTOR 140 mg/mL auto-injector INJECT 1 ML SUBCUTANEOUSLY ONCE EVERY MONTH. - QUEtiapine (SEROQUEL) 200 mg tablet take 1 tablet by mouth daily at bedtime - lurasidone (LATUDA) 80 mg tablet TAKE 1 TABLET BY MOUTH DAILY WITH DINNER *LOWER THE SEROQUEL TO 100MG IN THE EVENING* - simvastatin (ZOCOR) 20 mg tablet Take 20 mg by mouth every evening. - ibuprofen (MOTRIN) 800 mg tablet Take 800 mg by mouth three times a day as needed. - diclofenac, EC, (VOLTAREN) 75 mg EC tablet Take 1 tablet by mouth every 12 hours. - lacosamide (VIMPAT) 100 mg tab Take 1 tablet by mouth two times a day. - promethazine (PHENERGAN) 25 mg tablet 1 po tid prn headache or nausea - QUEtiapine (SEROQUEL) 50 mg tablet take 1 tablet by mouth three times daily as needed for anxiety - rizatriptan (MAXALT-ENVIRONMENTAL SERVICES WORKER) 10 mg disintegrating tablet Take 1 tablet [...] and PS 4-8cmh2O. His DME company is [email or web address] mask to fit patient preference, ramp, humidification [...] (FLONASE) 50 mcg/actuation nasal spray Use 1 [place] in each nostril twice daily. - albuterol HFA (PROVENTIL HFA, VENTOLIN HFA) 90 mcg/actuation inhaler Inhale 1-2 Puffs as instructed as needed for Wheezing/Shortness of Breath. Problem List As Of Date 08/05/2023 Noted Resolved Epilepsy (HCC) [G40.909] 06/18/2004 Epilepsy [...] depression in partial remission*09/02/2021 Migraine without aura, in (more content not included)... Normal [facility] CNPNon 08-04-2023 CNPN Telephone (PSYRMN) -- JAYE COLES ([id number]) 1980 M Date Time Provider Department 08/04/23 MICHAEL CORDOBA PSYRMN During your visit today, we recorded the following information about you: Sukumar Garcia 08/04/2023 12:56 PM Signed Rep from [facility] called requesting clarification on Seroquel 200 mg because the Rx for Latuda says to lower Seroquel to 100 mg - would like call [phone] - Erum Allergies As of Date: 08/04/2023 Noted Allergy Reaction KEPPRA (LEVETIRACETAM) 07/31/2010 14 - Other: See Comments Comments: Increases his ADHD KETOROLAC TROMETHAMINE 09/14/2016 16 - Unknown Comments: unknown PRISTIQ (DESVENLAFAXINE) 01/12/2014 14 - Other: See Comments Comments: agustin Date Reviewed: 06/11/2023 Reviewed by: Szedny-Álvaro, Olecia A, CULLED FRUIT PACKER.SUPERVISOR [employer] - Fully Assessed Prescriptions as of 08/04/2023 - clonazePAM (KLONOPIN) 2 mg tablet Take 1 tablet by mouth three times a day for 180 days. Take one(1) tablet three times daily. - AIMOVIG AUTOINJECTOR 140 mg/mL auto-injector INJECT 1 ML SUBCUTANEOUSLY ONCE EVERY MONTH. - QUEtiapine (SEROQUEL) 200 mg tablet take 1 tablet by mouth daily at bedtime - lurasidone (LATUDA) 80 mg tablet TAKE 1 TABLET BY MOUTH DAILY WITH DINNER *LOWER THE SEROQUEL TO 100MG IN THE EVENING* - simvastatin (ZOCOR) 20 mg tablet Take 20 mg by mouth every evening. - ibuprofen (MOTRIN) 800 mg tablet Take 800 mg by mouth three times a day as needed. - diclofenac, EC, (VOLTAREN) 75 mg EC tablet Take 1 tablet by mouth every 12 hours. - lacosamide (VIMPAT) 100 mg tab Take 1 tablet by mouth two times a day. - promethazine (PHENERGAN) 25 mg tablet 1 po tid prn headache or nausea - QUEtiapine (SEROQUEL) 50 mg tablet take 1 tablet by mouth three times daily as needed for anxiety - rizatriptan (MAXALT-ENVIRONMENTAL SERVICES WORKER) 10 mg disintegrating tablet Take 1 tablet [...] and PS 4-8cmh2O. His DME company is [employer] , new mask to fit patient preference, [...] (FLONASE) 50 mcg/actuation nasal spray Use 1 [place] in each nostril twice daily. - albuterol HFA (PROVENTIL HFA, VENTOLIN HFA) 90 mcg/actuation inhaler Inhale 1-2 Puffs as instructed as needed for Wheezing/Shortness of Breath. Problem List As Of Date 08/04/2023 Noted Resolved Epilepsy ([facility]) [G40.909] 06/18/2004 Epilepsy with altered consciousness without int*07/31/2010 Depression with anxiety [F41.8] 01/12/2014 Respiratory failure requiring intubation ([facility]) *04/07/2016 Acute respiratory failure ([facility]) [J96.00] 04/07/2016 03/26/2019 Hx of suicide attempt [Z91.51] 04/07/2016 Bipolar II disorder ([facility]) [F31.81] 07/02/2016 Obesity, Class I, BMI 30-34.9 [...] remission*09/02/2021 Migraine without aura, intractable, with status*12/22/2022 Severe mixed bipolar I disorder without psychot*05/12/2023 Post-traumatic stress disorder, chronic [F43.12]05/12/2023 Anxiety disorder [F41.9] 05/12/2023 Bipolar I disorder, most recent episode depress*05/27/2023 Encounter Status:Closed by CLAUDIO RIDDLE on 08/04/23 [facility] CNCOon 08-03-2023 CNCO Letter Text Normal [facility] CNOVon 08-03-2023 CNOV Office Visit (NE50MN ) -- JAYE COLES ([id number]) 1980 M Date Time Provider Department 08/03/23 1:30 PM INEZ CORDERO NE50MN During your visit today, we recorded the following information about you: Inez Cordero PA-C 08/03/2023 2:39 PM [facility] Patient: Jaye Coles : 1980 CLINIC NOTE -FOLLOW UP August 03, 2023 CHIEF COMPLAINT: Patient presents with: Epilepsy Follow Up HISTORY SINCE LAST VISIT: The patient has returned for follow-up regarding VNS. Jaye Coles is a 42 year old right handed male with a history of medically intractable left temporal lobe epilepsy since age 5 who presents for follow up. He had a VNS replacement in June and then again in September 2020 (Wiring was replaced). He had some tingling in his left arm and it had to be slowly turned up. Last seen on 04/10/[address] Mendiola. At the last visit, the patient did not have any definite seizures since his prior appointment (last GTC was 2012). He did report attempted suicide around March 29, 2023. Patient is currently taking Vimpat 100 mg BID and KLP 2 mg TID. Denies side effects. Reports compliance. There have been no seizures since the last visit. Last seizure 2012. Mood: Stable, no thoughts of hurting himself or anyone else. Following up with Dr. Cordoba. Sleep: Stable 6-8 hours Working: Yes, [employer] Driving: Yes Notes from [facility] on 04/10/23: He has not had any definite seizures [...] or problems with the image (Done at [facility] and not available for review). His VNS is working well on his current evaluation today. He has a history of anxiety, obstructive sleep apnea, migraines and medically intractable left temporal lobe epilepsy, diagnosed in 2004 at [facility]. He did not want to pursue surgery at that time due to concerns of memory decline and had a VNS implanted. He has had multiple revisions, the last of which was in 01/2013 at [place]. He feels that his VNS has stopped working because his auras have returned, but his battery is at 75%. His PCP Dr. Nunez who has been managing his epilepsy locally referred him back to [facility] to discuss further options. He is open to a repeat presurgical evaluation at this time. Last reported seizure was 2012. MEDICATIONS: Current Outpatient Medications Medication Sig AIMOVIG AUTOINJECTOR 140 mg/mL auto-injector INJECT 1 ML SUBCUTANEOUSLY ONCE EVERY MONTH. QUEtiapine (SEROQUEL) 200 mg tablet take 1 tablet by mouth daily at bedtime lurasidone (LATUDA) 80 mg tablet TAKE 1 TABLET BY MOUTH DAILY WITH DINNER *LOWER THE SEROQUEL TO 100MG IN THE EVENING* simvastatin (ZOCOR) 20 mg tablet Take 20 mg by mouth every evening. ibuprofen (MOTRIN) 800 mg tablet Take 800 mg by mouth three times a day as needed. diclofenac, EC, (VOLTAREN) 75 mg EC tablet Take 1 tablet by mouth every 12 hours. lacosamide (VIMPAT) 100 mg tab Take 1 tablet by mouth two times a day. clonazePAM (KLONOPIN) 2 mg tablet Take one(1) tablet three times daily. promethazine (PHENERGAN) 25 mg tablet 1 po tid prn headache or nausea QUEtiapine (SEROQUEL) 50 mg tablet take 1 tablet by mouth three times daily as needed for anxiety rizatriptan (MAXALT-ENVIRONMENTAL SERVICES WORKER) 10 mg disintegrating tablet Take 1 tablet [...] and PS 4-8cmh2O. His DME company is [place] , new mask to fit patient preference, ramp, humidification and unlimited supplies Please send us machine download in 1 month CPAP Please send us machine download in 1 month LORazepam (ATIVAN) 1 mg tablet Take 1 tablet by mouth as needed (for seizure lasting >3 minutes. Max 2 doses in 24 hours.) for up to 180 days. Cetirizine 10 (more content not included)... Normal [facility]03[facility]NE[facility]MN[facility] -- JAYE COLES ([id number]) 1980 M Date Time Provider Department 08/03/23 LINO MENDIOLA NE50MN During your visit today, we recorded the following information about you: Roula Velasquez RN 08/04/2023 10:27 AM Addendum BMV form received from clinic. NICHOLAS Thurman Renee, RN 08/04/2023 10:27 AM Signed Seen in clinic 08/03/2023 Continue Vimpat 100 mg twice daily - Continue Klonopin 2 mg three times daily - Will complete BMV form once a Vimpat level has been completed - Will reach out to Dr. Mendiola and place consult for neurosurgery. - Follow up in 3 months, sooner if needed Will await LCM level.NICHOLAS Thurman Joyce, RN 08/19/2023 11:01 AM Signed Seizure onset 40 yrs a go Last seizure 10/2012 Last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 DIFFon 07-28-2022 BASO # 0.1 103/ul Normal 0.0-0.1 [facility] Comment on above: Performed By: #### C CLEMENCIA, BMP #### [facility] [address] [place] [address] Dr. Meron Gentile Basophils/100 WBC (Bld) 0.5 % Normal 0.2-2.0 [facility] Comment on above: Performed By: #### C CLEMENCIA, BMP #### [facility] [address] [place] [address] Dr. Meron Gentile EO # 0.2 103/ul Normal 0.0-0.7 [facility] Comment on above: Performed By: #### C CLEMENCIA, BMP #### [facility] [address] [place] [address] Dr. Meron Gentile Eosinophils/100 WBC (Bld) 2.0 % Normal 0.9-7.0 [facility] Comment on above: Performed By: #### C CLEMENCIA, BMP #### [facility] [address] [place] [address] Dr. Meron Gentile Erythrocyte distribution width (RBC) [Ratio] 12.5 % Normal 11.0-15.0 [facility] Comment on above: Performed By: #### C CLEMENCIA, BMP #### [facility] [address] [place] [address] Dr. Meron Gentile Hematocrit (Bld) [Volume fraction] 48.6 % Normal 42.0-54.0 [facility] Comment on above: Performed By: #### C CLEMENCIA, BMP #### [facility] [address] [place] [address] Dr. Meron Gentile Hemoglobin (Bld) [Mass/Vol] 16.7 g/dL Normal 14.0-18.0 [facility] Comment on above: Performed By: #### C MADM, BMP #### [facility] [address] [address] [address] Meron Gentile IG # 0.03 10e3/ul Normal 0.00-0.03 [facility] Comment on above: Performed By: #### C MADM, BMP #### [facility] [address] [address] [address] Meron Gentile IG % 0.3 % Normal 0.0-0.5 [facility] Comment on above: Performed By: #### C MADM, BMP #### [facility] [address] [address] [address] Meron Gentile LYMPH # 2.0 103/ul Normal 1.2-3.8 [facility] Comment on above: Performed By: #### C MADM, BMP #### [facility] [address] [place] [address] Dr. Meron Gentile Lymphocytes/100 WBC (Bld) 20.4 % Critically low 20.5-60.0 [facility] Comment on above: Performed By: #### C MADM, BMP #### [facility] [address] [place] [address] Dr. Meron Gentile MANUAL DIFF REQ NO Normal [facility] Comment on above: Performed By: #### C MADM, BMP #### [facility] [address] [place] [address] Dr. Meron Gentile MCH (RBC) [Entitic mass] 28.8 pg Normal 25.9-34.0 [facility] Comment on above: Performed By: #### C MADM, BMP #### [facility] [address] [place] [address] Dr. Meron Gentile MCHC (RBC) [Mass/Vol] 34.4 g/dL Normal 29.9-35.2 [facility] Comment on above: Performed By: #### C MADM, BMP #### [facility] [address] [place] [address] Dr. Meron Gentile MCV (RBC) [Entitic vol] 83.9 fL Normal 80.0-94.0 [facility] [place] Comment on above: Performed By: #### C CLEMENCIA, BMP #### [facility] [address] [place] [address] Dr. Meron Gentile MONO # 0.7 103/ul Normal 0.3-0.8 [facility] [place] Comment on above: Performed By: #### C CLEMENCIA, BMP #### [facility] [address] [place] [address] Dr. Meron Gentile Monocytes/100 WBC (Bld) 7.2 % Normal 1.7-12.0 [facility] Comment on above: Performed By: #### C CLEMENCIA, BMP #### [facility] [address] [place] [address] Dr. Meron Gentile NEUT # 6.7 103/ul Critically high 1.4-6.5 [facility] [place] Comment on above: Performed By: #### C CLEMENCIA, BMP #### [facility] [address] [place] [address] Dr. Meron Gentile Neutrophils/100 WBC (Bld) 69.6 % Normal 43.0-75.0 [facility] Comment on above: Performed By: #### C CLEMENCIA, BMP #### [facility] [address] [place] [address] Dr. Meron Gentile Platelet mean volume (Bld) [Entitic vol] 8.7 fL Critically low 9.5-13.5 [facility] Comment on above: Performed By: #### C CLEMENCIA, BMP #### [facility] [address] [place] [address] Dr. Meron Gentile PLT 326 103/ul Normal 150-450 [facility] Comment on above: Performed By: #### C CLEMENCIA, BMP #### [facility] [address] [place] [address] Dr. Meron Gentile RBC 5.79 106/ul Normal 4.70-6.10 [facility] Comment on above: Performed By: #### C CLEMENCIA, BMP #### [facility] [address] [place] [address] Dr. Meron Gentile WBC 9.6 103/ul Normal 4.0-11.0 [facility] [place] Comment on above: Performed By: #### C MADM, BMP #### [facility] [address], [place] [address] Dr. Meron Gentile CRPon 07-28-2022 CRP [Mass/Vol] mg/L Normal <=1.0 [facility] [place] Comment on above: Performed By: #### B MP, CRP #### [facility] [address], [place] [address] ABD/PELV W CONon 07-29-[address] ABD/PELV W CON EXAMINATION: CT ABDO MEN AND PELVIS WITH IV CONTRAST CLINICAL HISTORY: [...] by: OTF PARKS Date: 2022-07-28 21:32 Normal [facility] CT HEAD WO CONon 07-28-2022 CT HEAD [...] OTF PARKS Date: 2022-07-28 21:24 Normal [facility] ER URINE PROFILEon 3 Bilirubin Ql (U) Negative Normal NEGATIVE [facility] [place] Comment on above: Performed By: #### E RUR #### [facility] [address] [place] [address] Dr. Meron Gentile Clarity (U) CLEAR Normal CLEAR [facility] [place] Comment on above: Performed By: #### E RUR #### [facility] [address] [place] [address] Dr. Meron Gentile Color (U) LT. YELLOW Normal YELLOW [facility] [place] Comment on above: Performed By: #### E RUR #### [facility] [address] [place] [address] Dr. Meron Gentile ERUAHD A micrscopic examina tion will be performed if indicated. Normal [facility] Comment on above: Performed By: #### E RUR #### [facility] [address] [place] [address] Dr. Meron Gentile Glucose Ql (U) Negative Normal NEGATIVE [facility] [place] Comment on above: Performed By: #### E RUR #### [facility] [address] [place] [address] Dr. Meron Gentile Hemoglobin Ql (U) Negative Normal NEGATIVE [facility] [place] Comment on above: Performed By: #### E RUR #### [facility] [address] [place] [address] Dr. Meron Gentile Ketones Ql (U) Negative Normal NEGATIVE [facility] [place] Comment on above: Performed By: #### E RUR #### [facility] [address] [place] [address] Dr. Meron Gentile LEUKOCYTES Negative Normal NEGATIVE [facility] [place] Comment on above: Performed By: #### E RUR #### [facility] [address] [place] [address] Dr. Meron Gentile Nitrite Ql (U) Negative Normal NEGATIVE [facility] [place] Comment on above: Performed By: #### E RUR #### [facility] [address] [place] [address] Dr. Meron Gentile pH (U) 7.0 [pH] Normal 5-9 [facility] [place] Comment on above: Performed By: #### E RUR #### [facility] [address] [place] [address] Dr. Meron Gentile SPEC GRAVITY <=1.005 Abnormal 1.005-<=1. 025 [facility] [place] Comment on above: Performed By: #### E RUR #### [facility] [address] [place] [address] Dr. Meron Gentile UA PROTEIN Negative Normal NEGATIVE/ TRACE [facility] [place] Comment on above: Performed By: #### E RUR #### [facility] [address] [place] [address] Dr. Meron Gentile UR MICRO IND NOT INDICATED Normal [facility] [place] Comment on above: Performed By: #### E RUR #### [facility] [address] [place] [address] Dr. Meron Gentile Urobilinogen Qn (U) 0.2 {Roel'U}/dL Normal 0.2 - 1. 0 [facility] [place] Comment on above: Performed By: #### E RUR #### [facility] [address] [place] [address] Dr. Meron Gentile PROF CHEM 8 (BAS METB)on Anion gap [Moles/Vol] 11.3 mmol/L Normal [facility] Comment on above: Performed By: #### B MP, CRP #### [facility] [address] [place] [address] Dr. Meron Gentile Calcium [Mass/Vol] 8.9 mg/dL Normal 8.5-10.1 [facility] [place] Comment on above: Performed By: #### B MP, CRP #### [facility] [address] [place] [address] Dr. Meron Gentile Chloride [Moles/Vol] 102 mmol/L Normal 98-107 [facility] Comment on above: Performed By: #### B MP, CRP #### [facility] [address] [place] [address] [address] Meron Gentile CO2 [Moles/Vol] 27.5 mmol/L Normal 21.0-32.0 [facility] [place] Comment on above: Performed By: #### B MP, CRP #### [facility] [address] [place] [address] [address] Meron Gentile Creatinine [Mass/Vol] 0.67 mg/dL Critically low 0.70-1.30 [facility] [place] Comment on above: Performed By: #### B MP, CRP #### [facility] [address] [place] [address] [address] Meron Gentile EGFR-AF CITIZEN [place] >60 Normal >=60 [facility] [place] Comment on above: Performed By: #### B MP, CRP #### [facility] [address] [place] [address] Dr. Meron Gentile EGFR-NON AF CITIZEN OF [place] >60 Normal >=60 [facility] [place] Comment on above: Performed By: #### B MP, CRP #### [facility] [address] [address] [address] Meron Gentile Glucose [Mass/Vol] 117 mg/dL Critically high 74-106 [facility] Comment on above: Performed By: #### B MP, CRP #### [facility] [address] [place] [address] Dr. Meron Gentile Potassium [Moles/Vol] 3.8 mmol/L Normal 3.5-5.1 [facility] [place] Comment on above: Performed By: #### B MP, CRP #### [facility] [address] [place] [address] Dr. Meron Gentile Sodium [Moles/Vol] 137 mmol/L Normal 136-145 [facility] [place] Comment on above: Performed By: #### B MP, CRP #### [facility] [address] [place] [address] Dr. Meron Gentile Urea nitrogen [Mass/Vol] 12.0 mg/dL Normal 7.0-18.0 [facility] [place] Comment on above: Performed By: #### B MP, CRP #### [facility] [address] [address] [address] Meron Gentile Urea nitrogen/Creatinine [Mass ratio] 17.9 mg/mg Normal [facility] Comment on above: Performed By: #### B MP, CRP #### [facility] [address] [place] [address] [address] Meron Gentile XR KNEE LT 4V [...] by: JAY KATZ Date: 2022-07-28 21:39 Normal [facility] CBC AUTO DIFFon 01-13-2022 BASO # 0.1 103/ul Normal 0.0-0.1 [facility] Comment on above: Performed By: #### C BC #### [facility] [address] [place] [address] Dr. Meron Gentile Basophils/100 WBC (Bld) 0.3 % Normal 0.2-2.0 [facility] Comment on above: Performed By: #### C BC #### [facility] [address] [place] [address] Dr. Meron Gentile EO # 0.0 103/ul Normal 0.0-0.7 [facility] Comment on above: Performed By: #### C BC #### [facility] [address] [place] [address] Dr. Meron Gentile Eosinophils/100 WBC (Bld) 0.1 % Critically low 0.9-7.0 [facility] [place] Comment on above: Performed By: #### C BC #### [facility] [address] [place] [address] Dr. Meron Gentile Erythrocyte distribution width (RBC) [Ratio] 12.4 % Normal 11.0-15.0 [facility] [place] Comment on above: Performed By: #### C BC #### [facility] [address] [place] [address] Dr. Meron Gentile Hematocrit (Bld) [Volume fraction] 44.3 % Normal 42.0-54.0 [facility] [place] Comment on above: Performed By: #### C BC #### [facility] [address] [place] [address] Dr. Meron Gentile Hemoglobin (Bld) [Mass/Vol] 15.0 g/dL Normal 14.0-18.0 [facility] [place] Comment on above: Performed By: #### C BC #### [facility] [address] [place] [address] Dr. Meron Gentile IG # 0.28 10e3/ul Critically high 0.00-0.03 [facility] [place] Comment on above: Performed By: #### C BC #### [facility] [address] [place] [address] Dr. Meron Gentile IG % 1.7 % Critically high 0.0-0.5 [facility] [place] Comment on above: Performed By: #### C BC #### [facility] [address] [place] [address] Dr. Meron Gentile LYMPH # 3.4 103/ul Normal 1.2-3.8 [facility] Comment on above: Performed By: #### C BC #### [facility] [address] [place] [address] Dr. Meron Gentile Lymphocytes/100 WBC (Bld) 20.2 % Critically low 20.5-60.0 [facility] Comment on above: Performed By: #### C BC #### [facility] [address] [place] [address] Dr. Mreon Gentile MANUAL DIFF REQ NO Normal [facility] [place] Comment on above: Performed By: #### C BC #### [facility] [address] [place] [address] Dr. Meron Gentile MCH (RBC) [Entitic mass] 29.2 pg Normal 25.9-34.0 [facility] [place] Comment on above: Performed By: #### C BC #### [facility] [address] [place] [address] Dr. Meron Gentile MCHC (RBC) [Mass/Vol] 33.9 g/dL Normal 29.9-35.2 [facility] [place] Comment on above: Performed By: #### C BC #### [facility] [address] [place] [address] Dr. Meron Gentile MCV (RBC) [Entitic vol] 86.4 fL Normal 80.0-94.0 [facility] [place] Comment on above: Performed By: #### C BC #### [facility] [address] [place] [address] Dr. Meron Gentile MONO # 1.3 103/ul Critically high 0.3-0.8 [facility] [place] Comment on above: Performed By: #### C BC #### [facility] [address] [place] [address] Dr. Meron Gentile Monocytes/100 WBC (Bld) 7.5 % Normal 1.7-12.0 [facility] [place] Comment on above: Performed By: #### C BC #### [facility] [address] [place] [address] Dr. Meron Gentile NEUT # 11.7 103/ul Critically high 1.4-6.5 [facility] [place] Comment on above: Performed By: #### C BC #### [facility] [address] [place] [address] Dr. Meron Gentile Neutrophils/100 WBC (Bld) 70.2 % Normal 43.0-75.0 [facility] Comment on above: Performed By: #### C BC #### [facility] [address] [place] [address] Dr. Meron Gentile Platelet mean volume (Bld) [Entitic vol] 8.6 fL Critically low 9.5-13.5 [facility] Comment on above: Performed By: #### C BC #### [facility] [address] [place], [place] [address] Dr. Meron Gentile PLT 369 103/ul Normal 150-450 [facility] Comment on above: Performed By: #### C BC #### [facility] [address] [place] [address] Dr. Meron Gentile RBC 5.13 106/ul Normal 4.70-6.10 [facility] [place] Comment on above: Performed By: #### C BC #### [facility] [address] [place] [address] Dr. Meron Gentile WBC 16.7 103/ul Critically high 4.0-11.0 [facility] [place] Comment on above: Performed By: #### C BC #### [facility] [address] [place] [address] Dr. Meron Gentile PROF 14(COMP METB)on 022 Albumin [Mass/Vol] 3.6 g/dL Normal 3.4-5.0 [facility] [place] Comment on above: Performed By: #### B MP, CRP #### [facility] [address] [place] [address] Dr. Meron Gentile Albumin/Globulin [Mass ratio] 1.1 {ratio} Normal [facility] [place] Comment on above: Performed By: #### B MP, CRP #### [facility] [address] [place] [address] Dr. Meron Gentile ALP [Catalytic activity/Vol] 59 U/L Normal 46-116 [facility] Comment on above: Performed By: #### B MP, CRP #### [facility] [address] [place] [address] Dr. Meron Gentile ALT [Catalytic activity/Vol] 36 U/L Normal 16-63 [facility] Comment on above: Performed By: #### B MP, CRP #### [facility] [address] [place] [address] Dr. Meron Gentile Anion gap [Moles/Vol] 10.2 mmol/L Normal [facility] Comment on above: Performed By: #### B MP, CRP #### [facility] [address] [place] [address] Dr. Meron Gentile AST [Catalytic activity/Vol] 11 U/L Critically low 15-37 [facility] [place] Comment on above: Performed By: #### B MP, CRP #### [facility] [address] [place] [address] Dr. Meron Gentile Bilirubin [Mass/Vol] 0.4 mg/dL Normal 0.2-1.0 [facility] [place] Comment on above: Performed By: #### B MP, CRP #### [facility] [address] [place] [address] Dr. Meron Gentile Calcium [Mass/Vol] 8.6 mg/dL Normal 8.5-10.1 [facility] Comment on above: Performed By: #### B MP, CRP #### [facility] [address] [place] [address] Dr. Meron Gentile Chloride [Moles/Vol] 99 mmol/L Normal 98-107 [facility] [place] Comment on above: Performed By: #### B MP, CRP #### [facility] [address] [place] [address] Dr. Meron Gentile CO2 [Moles/Vol] 28.2 mmol/L Normal 21.0-32.0 [facility] [place] Comment on above: Performed By: #### B MP, CRP #### [facility] [address] [place] [address] Dr. Meron Gentile Creatinine [Mass/Vol] 0.77 mg/dL Normal 0.70-1.30 [facility] [place] Comment on above: Performed By: #### B MP, CRP #### [facility] [address] [place] [address] Dr. Meron Gentile EGFR-AF CITIZEN OF [place] >60 Normal >=60 [facility] Comment on above: Performed By: #### B MP, CRP #### [facility] [address] [place] [address] Dr. Meron Gentile EGFR-NON AF CITIZEN OF [place] >60 Normal >=60 [facility] [place] Comment on above: Performed By: #### B MP, CRP #### [facility] [address] [place] [address] Dr. Meron Gentile Globulin (S) [Mass/Vol] 3.2 g/dL Normal [facility] [place] Comment on above: Performed By: #### B MP, CRP #### [facility] [address] [place] [address] Dr. Meron Gentile Glucose [Mass/Vol] 107 mg/dL Critically high 74-106 [facility] Comment on above: Performed By: #### B MP, CRP #### [facility] [address] [place] [address] Dr. Meron Gentiel Potassium [Moles/Vol] 3.4 mmol/L Critically low 3.5-5.1 [facility] [place] Comment on above: Performed By: #### B MP, CRP #### [facility] [address] [place] [address] Dr. Meron Gentile Protein [Mass/Vol] 6.8 g/dL Normal 6.4-8.2 [facility] [place] Comment on above: Performed By: #### B MP, CRP #### [facility] [address] [place] [address] Dr. Meron Gentile Sodium [Moles/Vol] 134 mmol/L Critically low 136-145 [facility] Comment on above: Performed By: #### B MP, CRP #### [facility] [address] [place] [address] Dr. Meron Gentile Urea nitrogen [Mass/Vol] 10.0 mg/dL Normal 7.0-18.0 [facility] [place] Comment on above: Performed By: #### B MP, CRP #### [facility] [address] [place] [address] Dr. Meron Gentile Urea nitrogen/Creatinine [Mass ratio] 13.0 mg/mg Normal [facility] [place] Comment on above: Performed By: #### B MP, CRP #### [facility] [address] [place] [address] Dr. Meron Gentile TROPONIN, HIGH SENSITIVITYon 01-13-2022 HSTROP 5.3 pg/mL Normal 4.0-76.1 [facility] [place] Comment on above: Result Comment: CUT- OFF POINTS HAVE BEEN ESTABLISHED BASED ON THE FOURTH UNIVERSAL DEFINITIONS OF MYOCARDIAL INFARCTION. THE UPPER REFERENCE LIMIT (URL) OF TROPONIN, DEFINED THE 99TH PERCENTILE OF cTnI DISTRIBUTION IN A REFERENCE POPULATION, HAS BEEN CONFIRMED THE DECISION THRESHOLD FOR MS DIAGNOSIS. Performed By: #### B MP, CRP #### [facility] [address] [id number] [address] Meron Gentile XR CHEST 1 Von [...] by: YAMILETH LEE Date: 2022-01-12 22:48 Normal [facility] No Panel Informationon 01-[address] [facility] CARDIAC TYLER 3-6on 2 CK [Catalytic activity/Vol] 98 U/L Normal 39-308 [facility] [place] Comment on above: Performed By: #### C MREP #### [facility] [address] [place] [address] Dr. Meron Gentile CK.MB [Mass/Vol] 1.08 ng/mL Normal <=3.60 [facility] [place] Comment on above: Performed By: #### C MREP #### [facility] [address] [place] [address] Dr. Meron Gentile HSTROP 6.2 pg/mL Normal 4.0-76.1 [facility] [place] Comment on above: Result Comment: CUT- OFF POINTS HAVE BEEN ESTABLISHED BASED ON THE FOURTH UNIVERSAL DEFINITIONS OF MYOCARDIAL INFARCTION. THE UPPER REFERENCE LIMIT (URL) OF TROPONIN, DEFINED THE 99TH PERCENTILE OF cTnI DISTRIBUTION IN A REFERENCE POPULATION, HAS BEEN CONFIRMED THE DECISION THRESHOLD FOR MS DIAGNOSIS. Performed By: #### C MREP #### [facility] [address] [address] [address] Meron Gentile XR CHEST 1 Von 01-06-2022 XR CHEST 1 V CLINICAL HISTORY: Ch est pain COMPARISON: Chest radiograph 05/30/2021 FINDINGS: Portable AP view of the chest obtained. Cardiomediastinal silhouette is normal. Lungs are clear, no evidence of infiltrate, suspicious nodule, or mass. No evidence of significant pleural fluid on this portable projection. No acute bony abnormality. Vagal nerve stimulator redemonstrated. IMPRESSION: No acute abnormality. Electronically authenticated by: NADIRA MCWILLIAMSJUANITA Date: 2022-01-05 22:18 Normal [facility] CARDIAC TYLER ADMITon 022 CK [Catalytic activity/Vol] 107 U/L Normal 39-308 [facility] Comment on above: Performed By: #### C CLEMENCIA, BARRY #### [facility] [address] [place] [address] Dr. Meron Gentile CK.MB [Mass/Vol] 1.26 ng/mL Normal <=3.60 [facility] Comment on above: Performed By: #### C BARRY KHANNA #### [facility] [address] [place] [address] Dr. Meron Gentile HSTROP 6.3 pg/mL Normal 4.0-76.1 [facility] Comment on above: Result Comment: CUT- OFF POINTS HAVE BEEN ESTABLISHED BASED ON THE FOURTH UNIVERSAL DEFINITIONS OF MYOCARDIAL INFARCTION. THE UPPER REFERENCE LIMIT (URL) OF TROPONIN, DEFINED THE 99TH PERCENTILE OF cTnI DISTRIBUTION IN A REFERENCE POPULATION, HAS BEEN CONFIRMED THE DECISION THRESHOLD FOR MS DIAGNOSIS. Performed By: #### Joselin KHANNA BMP #### [facility] [address] [place] [address] Dr. Meron Gentile PERLA 41 ng/mL Normal 16-96 [facility] Comment on above: Performed By: #### C CLEMENCIA, BMP #### [facility] [address] [place] [address] Dr. Meron Gentile CBC AUTO DIFFon 01-05-2022 BASO # 0.0 103/ul Normal 0.0-0.1 [facility] Comment on above: Performed By: #### B MP, CRP #### [facility] [address] [place] [address] Dr. Meron Gentile Basophils/100 WBC (Bld) 0.5 % Normal 0.2-2.0 [facility] Comment on above: Performed By: #### B MP, CRP #### [facility] [address] [place] [address] Dr. Meron Gentile EO # 0.1 103/ul Normal 0.0-0.7 [facility] Comment on above: Performed By: #### B MP, CRP #### [facility] [address] [place] [address] Dr. Meron Gentile Eosinophils/100 WBC (Bld) 1.2 % Normal 0.9-7.0 [facility] Comment on above: Performed By: #### B MP, CRP #### [facility] [address] [place] [address] Dr. Meron Gentile Erythrocyte distribution width (RBC) [Ratio] 12.2 % Normal 11.0-15.0 [facility] Comment on above: Performed By: #### B MP, CRP #### [facility] [address] [place] [address] Dr. Mreon Gentile Hematocrit (Bld) [Volume fraction] 45.6 % Normal 42.0-54.0 [facility] Comment on above: Performed By: #### B MP, CRP #### [facility] [address] [place] [address] Dr. Meron Gentile Hemoglobin (Bld) [Mass/Vol] 15.2 g/dL Normal 14.0-18.0 [facility] Comment on above: Performed By: #### B MP, CRP #### [facility] [address] [place] [address] Dr. Meron Gentile IG # 0.02 10e3/ul Normal 0.00-0.03 [facility] Comment on above: Performed By: #### B MP, CRP #### [facility] [address] [place] [address] Dr. Meron Gentile IG % 0.2 % Normal 0.0-0.5 [facility] Comment on above: Performed By: #### B MP, CRP #### [facility] [address] [place] [address] Dr. Meron Gentile LYMPH # 1.6 103/ul Normal 1.2-3.8 [facility] Comment on above: Performed By: #### B MP, CRP #### [facility] [address] [place] [address] Dr. Meron Gentile Lymphocytes/100 WBC (Bld) 18.9 % Critically low 20.5-60.0 [facility] Comment on above: Performed By: #### B MP, CRP #### [facility] [address] [place] [address] Dr. Meron Gentile MANUAL DIFF REQ NO Normal [facility] Comment on above: Performed By: #### B MP, CRP #### [facility] [address] [place] [address] Dr. Meron Gentile MCH (RBC) [Entitic mass] 29.0 pg Normal 25.9-34.0 [facility] Comment on above: Performed By: #### B MP, CRP #### [facility] [address] [place] [address] Dr. Meron Gentile MCHC (RBC) [Mass/Vol] 33.3 g/dL Normal 29.9-35.2 [facility] Comment on above: Performed By: #### B MP, CRP #### [facility] [address] [place] [address] Dr. Meron Gentile MCV (RBC) [Entitic vol] 86.9 fL Normal 80.0-94.0 [facility] Comment on above: Performed By: #### B MP, CRP #### [facility] [address] [place] [address] Dr. Meron Gentile MONO # 1.1 103/ul Critically high 0.3-0.8 [facility] Comment on above: Performed By: #### B MP, CRP #### [facility] [address] [place] [address] Dr. Meron Gentile Monocytes/100 WBC (Bld) 12.3 % Critically high 1.7-12.0 [facility] Comment on above: Performed By: #### B MP, CRP #### [facility] [address] [place] [address] Dr. Meron Gentile NEUT # 5.7 103/ul Normal 1.4-6.5 [facility] Comment on above: Performed By: #### B MP, CRP #### [facility] [address] [place] [address] Dr. Meron Gentile Neutrophils/100 WBC (Bld) 66.9 % Normal 43.0-75.0 [facility] Comment on above: Performed By: #### B MP, CRP #### [facility] [address] [address] [address] Meron Gentile Platelet mean volume (Bld) [Entitic vol] 8.6 fL Critically low 9.5-13.5 [facility] Comment on above: Performed By: #### B MP, CRP #### [facility] [address] [place] [address] Dr. Meron Gentile PLT 279 103/ul Normal 150-450 [facility] Comment on above: Performed By: #### B MP, CRP #### [facility] [address] [place] [address] Dr. Meron Gentile RBC 5.25 106/ul Normal 4.70-6.10 [facility] Comment on above: Performed By: #### B MP, CRP #### [facility] [address] [place] [address] Dr. Meron Gentile WBC 8.6 103/ul Normal 4.0-11.0 [facility] Comment on above: Performed By: #### B MP, CRP #### [facility] [address] [place] [address] Dr. Meron Gentile [facility]-17 SARS-CoV-2 (COVID-19) RNA SULEIMAN+probe Ql (Unsp spec) Not detected Normal NOT DETECTED [facility] Comment on above: Result Comment: When [...] for this test is supported by the Customer Engagement Specialist of Health and Human Service's declaration that [...] Performed By: #### C MADM, BMP #### [facility] [address] [place] [address] Dr. Meron Gentile D-DIMERon 01-05-2022 D-DIMER 0.19 mg/L FEU Normal <=0.59 [facility] Comment on above: Performed By: #### D DIM #### [facility] [address] [place] [address] Dr. Meron Gentile D-DIMER COMMENTS SEE BELOW Normal [facility] Comment on above: Result Comment: Incr [...] hospitalization. Performed By: #### D DIM #### [facility] [address] [place] [address] Dr. Meron Gentile INFLUENZA A AND B AGon 01-05 INFLUENZA A AG Negative Normal NEGATIVE SEE COMMENT [facility] Comment on above: Performed By: #### C MADM, BMP #### [facility] [address] [place] [address] Dr. Meron Gentile INFLUENZA B AG Negative Normal NEGATIVE SEE COMMENT [facility] Comment on above: Performed By: #### C MADM, BMP #### [facility] [address] [place] [address] Dr. Meron Gentile INTERNAL CONTROLS Within Normal Limits Normal Wi thin Normal Limits [facility] Comment on above: Performed By: #### C MADM, BMP #### [facility] [address] [place] [address] Dr. Meron Gentile PROF CHEM 8 (BAS METB)on Anion gap [Moles/Vol] 9.3 mmol/L Normal [facility] Comment on above: Performed By: #### C MADM, BMP #### [facility] [address] [place] [address] Dr. Meron Gentile Calcium [Mass/Vol] 9.1 mg/dL Normal 8.5-10.1 [facility] Comment on above: Performed By: #### C MADM, BMP #### [facility] [address] [place] [address] Dr. Meron Gentile Chloride [Moles/Vol] 97 mmol/L Critically low 98-107 [facility] Comment on above: Performed By: #### C MADM, BMP #### [facility] [address] [place] [address] Dr. Meron Gentile CO2 [Moles/Vol] 30.6 mmol/L Normal 21.0-32.0 [facility] Comment on above: Performed By: #### C MADM, BMP #### [facility] [address] [place] [address] Dr. Meron Gentile Creatinine [Mass/Vol] 0.77 mg/dL Normal 0.70-1.30 [facility] Comment on above: Performed By: #### C MADM, BMP #### [facility] [address] [place] [address] Dr. Meron Gentile EGFR-AF CITIZ[place] >60 Normal >=60 [facility] Comment on above: Performed By: #### C MADM, BMP #### [facility] [address] [place] [address] Dr. Meron Gentile EGFR-NON AF CITIZEN OF [place] >60 Normal >=60 [facility] Comment on above: Performed By: #### C MADM, BMP #### [facility] [address] [place] [address] Dr. Meron Gentile Glucose [Mass/Vol] 104 mg/dL Normal 74-106 [facility] Comment on above: Performed By: #### C MADM, BMP #### [facility] [address] [place] [address] Dr. Meron Gentile Potassium [Moles/Vol] 3.9 mmol/L Normal 3.5-5.1 [facility] Comment on above: Performed By: #### C MADM, BMP #### [facility] [address] [place] [address] Dr. Meron Gentile Sodium [Moles/Vol] 133 mmol/L Critically low 136-145 [facility] Comment on above: Performed By: #### C MADM, BMP #### [facility] [address] [place] [address] Dr. Meron Gentile Urea nitrogen [Mass/Vol] 8.0 mg/dL Normal 7.0-18.0 [facility] Comment on above: Performed By: #### C MADM, BMP #### [facility] [address] [place] [address] Dr. Meron Gentile Urea nitrogen/Creatinine [Mass ratio] 10.4 mg/mg Normal [facility] Comment on above: Performed By: #### C MADM, BMP #### [facility] [address] [place] [address] Dr. Meron Gentile INSULINon 09-26-2021 Insulin 14.8 uIU/mL Normal 2.6-24.9 [facility] Comment on above: Performed By: #### I NSULIN #### [facility] [address] [place] [address] Dr. Meron Gentile CBC AUTO DIFFon 09-25-2021 BASO # 0.1 103/ul Normal 0.0-0.1 [facility] Comment on above: Performed By: #### C BC #### [facility] [address] [place] [address] Dr. Meron Gentile Basophils/100 WBC (Bld) 0.7 % Normal 0.2-2.0 [facility] Comment on above: Performed By: #### C BC #### [facility] [address] [place] [address] Dr. Meron Gentile EO # 0.3 103/ul Normal 0.0-0.7 [facility] Comment on above: Performed By: #### C BC #### [facility] [address] [place] [address] Dr. Meron Gentile Eosinophils/100 WBC (Bld) 3.8 % Normal 0.9-7.0 [facility] Comment on above: Performed By: #### C BC #### [facility] [address] [place] [address] Dr. Meron Gentile Erythrocyte distribution width (RBC) [Ratio] 12.2 % Normal 11.0-15.0 [facility] Comment on above: Performed By: #### C BC #### [facility] [address] [place] [address] Dr. Meron Gentile Hematocrit (Bld) [Volume fraction] 46.5 % Normal 42.0-54.0 [facility] Comment on above: Performed By: #### C BC #### [facility] [address] [place] [address] Dr. Meron Gentile Hemoglobin (Bld) [Mass/Vol] 15.5 g/dL Normal 14.0-18.0 [facility] Comment on above: Performed By: #### C BC #### [facility] [address] [place] [address] Dr. Meron Gentile IG # 0.04 10e3/ul Critically high 0.00-0.03 [facility] Comment on above: Performed By: #### C BC #### [facility] [address] [place] [address] Dr. Meron Gentile IG % 0.5 % Normal 0.0-0.5 [facility] Comment on above: Performed By: #### C BC #### [facility] [address] [place] [address] Dr. Meron Gentile LYMPH # 2.4 103/ul Normal 1.2-3.8 [facility] Comment on above: Performed By: #### C BC #### [facility] [address] [place] [address] Dr. Meron Gentile Lymphocytes/100 WBC (Bld) 31.5 % Normal 20.5-60.0 [facility] Comment on above: Performed By: #### C BC #### [facility] [address] [place] [address] Dr. Meron Gentile MANUAL DIFF REQ NO Normal [facility] Comment on above: Performed By: #### C BC #### [facility] [address] [place] [address] Dr. Meron Gentile MCH (RBC) [Entitic mass] 29.1 pg Normal 25.9-34.0 [facility] Comment on above: Performed By: #### C BC #### [facility] [address] [place] [address] Dr. Meron Gentile MCHC (RBC) [Mass/Vol] 33.3 g/dL Normal 29.9-35.2 [facility] Comment on above: Performed By: #### C BC #### [facility] [address] [place] [address] Dr. Meron Gentile MCV (RBC) [Entitic vol] 87.2 fL Normal 80.0-94.0 [facility] Comment on above: Performed By: #### C BC #### [facility] [address] [place] [address] Dr. Meron Gentile MONO # 0.6 103/ul Normal 0.3-0.8 [facility] Comment on above: Performed By: #### C BC #### [facility] [address] [place] [address] Dr. Meron Gentile Monocytes/100 WBC (Bld) 7.5 % Normal 1.7-12.0 [facility] Comment on above: Performed By: #### C BC #### [facility] [address] [place] [address] Dr. Meron Gentile NEUT # 4.3 103/ul Normal 1.4-6.5 [facility] Comment on above: Performed By: #### C BC #### [facility] [address] [place] [address] Dr. Meron Gentile Neutrophils/100 WBC (Bld) 56.0 % Normal 43.0-75.0 [facility] Comment on above: Performed By: #### C BC #### [facility] [address] [address] [address] Meron Gentile Platelet mean volume (Bld) [Entitic vol] 8.7 fL Critically low 9.5-13.5 [facility] Comment on above: Performed By: #### C BC #### [facility] [address] [address] [address] Meron Gentile PLT 290 103/ul Normal 150-450 [facility] Comment on above: Performed By: #### C BC #### [facility] [address] [address] [address] Meron Gentile RBC 5.33 106/ul Normal 4.70-6.10 [facility] Comment on above: Performed By: #### C BC #### [facility] [address] [address] [address] Meron Gentile WBC 7.7 103/ul Normal 4.0-11.0 [facility] Comment on above: Performed By: #### C BC #### [facility] [address] [address] [address] Meron Gentile ECHOCARDIO M/2D COMPLETEon 0 09-25-2021 ECHOCARDIO M/2D COMPLETE Patient: JAYE COLES Exam Date: 09/25/2021 : 1980 Gender:M Ordering : DR URIEL NUNEZ . Admission #: [id number] Family : Order #: [id number] CLICK HERE TO VIEW EXAM ECHOCARDIOGRAM REPORT [...] Area(A4C): 23.10 cm2 Left Atrium Systolic Volume(A2C): 88299 mm3 Left Atrium Systolic Volume(A4C): 08564 mm3 Mitral Valve MV E to A [...] Perez M.D. on 09/25/2021 at 16:59 Normal [facility] FREE THYROXINE INDEX T7on FTI 2.58 Normal 1.30-4.50 [facility] Comment on above: Performed By: #### B MP, CRP #### [facility] [address] [place] [address] Dr. Meron Gentile T3U 34.0 % Normal 33.0-40.0 [facility] Comment on above: Performed By: #### B MP, CRP #### [facility] [address] [place] [address] Dr. Meron Gentile T4 [Mass/Vol] 7.60 ug/dL Normal 4.50-12.10 [facility] Comment on above: Performed By: #### B MP, CRP #### [facility] [address] [place] [address] Dr. Meron Gentile GLYCOHEMOGLOBIN A1Con 2021 ADA RECOMMENDATION SEE BELOW Normal [facility] Comment on above: Result Comment: ADA RECOMMENDED LIMIT 4.0 - 6.0 ADA THERAPEUTIC TARGET < 7.0 ACTION SUGGESTED > 7.0 Performed By: #### Joselni KHANNA, BMP #### [facility] [address] [place] [address] Dr. Meron Gentile Glucose [Mass/Vol] 111 mg/dL Normal [facility] Comment on above: Performed By: #### Joselin KHANNA, BMP #### [facility] [address] [place] [address] Dr. Meron Gentile HbA1c (Bld) [Mass fraction] 5.5 % Normal 4.5-6.2 [facility] Comment on above: Performed By: #### C CLEMENCIA, BMP #### [facility] [address] [place] [address] Dr. Meron Gentile LIPID PROFILEon 09-25-2021 CHOL-HDL RATIO NORM SEE BELOW Normal [facility] Comment on above: Result Comment: 3.3 - 4.4 LOW RISK 4.4 - 7.1 AVERAGE RISK 7.1 - 11.0 MODERATE RISK >11.0 HIGH RISK Performed By: #### B MP, CRP #### [facility] [address] [address] [address] Meron Gentile Cholesterol [Mass/Vol] 257 mg/dL Critically high <=200 [facility] Comment on above: Performed By: #### B MP, CRP #### [facility] [address] [address] [address] Meron Gentile Cholesterol in HDL [Mass/Vol] 41 mg/dL Normal 40-60 [facility] Comment on above: Performed By: #### B MP, CRP #### [facility] [address] [address] [address] Meron Gentile Cholesterol in LDL [Mass/Vol] 171.6 mg/dL Normal [facility] Comment on above: Performed By: #### B MP, CRP #### [facility] [address] [place] [address] Dr. Meron Gentile Cholesterol.total/Chol esterol in HDL [Mass ratio] 6.3 {ratio} Normal [facility] Comment on above: Performed By: #### B MP, CRP #### [facility] [address] [address] [address] Meron Gentile HDL NORMAL > or = 60 mg/dl - LO W CARDIOVASCULAR RISK <40 mg/dl - HIGH CARDIOVASCULAR RISK Normal [facility] Comment on above: Performed By: #### B MP, CRP #### [facility] [address] [address] [address] Meron Gentile LDL CALC NORMAL SEE BELOW Normal [facility] Comment on above: Result Comment: <100 mg/dl OPTIMAL 100 - 129 mg/dl NEAR OR ABOVE OPTIMAL 130 - 159 mg/dl BORDERLINE HIGH 160 - 189 mg/dl HIGH >190 mg/dl VERY HIGH Performed By: #### B MP, CRP #### [facility] [address] [address] [address] Meron Gentile Triglyceride [Mass/Vol] 222 mg/dL Critically high <=150 [facility] Comment on above: Performed By: #### B MP, CRP #### [facility] [address] [address] [address] Meron Gentile VLDL CALC 44.4 mg/dL Normal [facility] Comment on above: Performed By: #### B MP, CRP #### [facility] [address] [place] [address] Dr. Meron Gentile PROF 14(COMP METB)on 022 Albumin [Mass/Vol] 3.7 g/dL Normal 3.4-5.0 [facility] Comment on above: Performed By: #### B MP, CRP #### [facility] [address] [place] [address] Dr. Meron Gentile Albumin/Globulin [Mass ratio] 1.1 {ratio} Normal [facility] Comment on above: Performed By: #### B MP, CRP #### [facility] [address] [place] [address] Dr. Meron Gentile ALP [Catalytic activity/Vol] 55 U/L Normal 46-116 [facility] Comment on above: Performed By: #### B MP, CRP #### [facility] [address] [place] [address] Dr. Meron Gentile ALT [Catalytic activity/Vol] 60 U/L Normal 16-63 [facility] Comment on above: Performed By: #### B MP, CRP #### [facility] [address] [place] [address] Dr. Meron Gentile Anion gap [Moles/Vol] 11.5 mmol/L Normal [facility] Comment on above: Performed By: #### B MP, CRP #### [facility] [address] [place] [address] Dr. Meron Gentile AST [Catalytic activity/Vol] 19 U/L Normal 15-37 [facility] Comment on above: Performed By: #### B MP, CRP #### [facility] [address] [place] [address] Dr. Meron Gentile Bilirubin [Mass/Vol] 0.4 mg/dL Normal 0.2-1.0 [facility] Comment on above: Performed By: #### B MP, CRP #### [facility] [address] [place] [address] Dr. Meron Gentile Calcium [Mass/Vol] 9.0 mg/dL Normal 8.5-10.1 [facility] Comment on above: Performed By: #### B MP, CRP #### [facility] [address] [place] [address] Dr. Meron Gentile Chloride [Moles/Vol] 100 mmol/L Normal 98-107 [facility] Comment on above: Performed By: #### B MP, CRP #### [facility] [address] [place] [address] Dr. Meron Gentile CO2 [Moles/Vol] 29.4 mmol/L Normal 21.0-32.0 [facility] Comment on above: Performed By: #### B MP, CRP #### [facility] [address] [place] [address] Dr. Meron Gentile Creatinine [Mass/Vol] 0.80 mg/dL Normal 0.70-1.30 [facility] Comment on above: Performed By: #### B MP, CRP #### [facility] [address] [place] [address] Dr. Meron Gentile EGFR-AF CITIZ[place] >60 Normal >=60 [facility] Comment on above: Performed By: #### B MP, CRP #### [facility] [address] [place] [address] Dr. Meron Gentile EGFR-NON AF CITIZEN OF [place] >60 Normal >=60 [facility] Comment on above: Performed By: #### B MP, CRP #### [facility] [address] [place] [address] Dr. Meron Gentile Globulin (S) [Mass/Vol] 3.3 g/dL Normal [facility] Comment on above: Performed By: #### B MP, CRP #### [facility] [address] [place] [address] Dr. Meron Gentile Glucose [Mass/Vol] 124 mg/dL Critically high 74-106 [facility] Comment on above: Performed By: #### B MP, CRP #### [facility] [address] [place] [address] Dr. Meron Gentile Potassium [Moles/Vol] 3.9 mmol/L Normal 3.5-5.1 [facility] Comment on above: Performed By: #### B MP, CRP #### [facility] [address] [place] [address] Dr. Meron Gentile Protein [Mass/Vol] 7.0 g/dL Normal 6.4-8.2 [facility] Comment on above: Performed By: #### B MP, CRP #### [facility] [address] [place] [address] Dr. Meron Gentile Sodium [Moles/Vol] 137 mmol/L Normal 136-145 [facility] Comment on above: Performed By: #### B MP, CRP #### [facility] [address] [place] [address] Dr. Meron Gentile Urea nitrogen [Mass/Vol] 10.0 mg/dL Normal 7.0-18.0 [facility] Comment on above: Performed By: #### B MP, CRP #### [facility] [address] [place] [address] Dr. Meron Gentile Urea nitrogen/Creatinine [Mass ratio] 12.5 mg/mg Normal [facility] Comment on above: Performed By: #### B MP, CRP #### [facility] [address] [place] [address] Dr. Meron Gentile TSHon 09-25-2021 TSH 4.858 uIU/mL Critically high 0.358-3.74 0 [facility] Comment on above: Performed By: #### B MP, CRP #### [facility] [address] [place] [address] Dr. Meron Gentile TSH RANGE SEE BELOW Normal [facility] Comment on above: Result Comment: <0.3 4 UIU/ml HYPERTHYROID 0.34-5.60 UIU/ml EUTHYROID >5.60 UIU/ml HYPOTHYROID Performed By: #### B MP, CRP #### [facility] [address] [place] [address] Dr. Meron Gentile URIC ACID SERUMon 09-25-2021 Urate [Mass/Vol] 5.6 mg/dL Normal 3.5-7.2 [facility] Comment on above: Performed By: #### B MP, CRP #### [facility] [address] [address] [address] Meron Gentile CAROTID ART BILon 022 US CAROTID ART SEA EXAMINATION: US LI TID ART SEA HISTORY: Bilateral carotid artery occlusion [...] by: MIRIAM DIAZ Date: 2021-09-25 10:43 Normal [facility] XR HUMERUS LT MIN 2Von 09-14 XR HUMERUS LT MIN 2V EXAM: XR HUMERUS LT MIN 2V HISTORY: Pain COMPARISON: None. TECHNIQUE: 2 views of the left humerus FINDINGS: No acute fracture seen. The soft tissues appear unremarkable. IMPRESSION: No acute fracture of the left humerus Electronically authenticated by: DOMINIC ROMERO Date: 2021-09-14 20:27 Normal [facility] Initial Visit (Neurosurgery) on 01-20-2018 Initial Visit (Neurosurgery) No report was sent Normal [facility] Provider Noteon 7 HIM IP Note OR Manager Clinical Pharmacy Normal [facility] Vital Signs Date Time Vital Sign Value Performing Clinician Facility 12-01-2023 23:30-0400 Diastolic blood pressure 92 mm[Hg] [facility] 12-01-2023 23:30-0400 Heart rate 83 /min [facility] 12-01-2023 23:30-0400 Mean blood pressure 107 mm[Hg] [facility] 12-01-2023 23:30-0400 Nursing Progress Note Reason Other: calling for ride [facility] 12-01-2023 23:30-0400 SaO2% (BldA) [Mass fraction] 97 % [facility] 12-01-2023 23:30-0400 Systolic blood pressure 138 mm[Hg] Virgil Tasia [facility] 12-01-2023 23:29-0400 Diastolic blood pressure 92 mm[Hg] Virgil Tasia [facility] 12-01-2023 23:29-0400 Heart rate 83 /min Virgil Tasia [facility] 12-01-2023 23:29-0400 Respiratory rate 16 /min Virgil Tasia [facility] 12-01-2023 23:29-0400 SaO2% (BldA) [Mass fraction] 97 % Virgil Atsia [facility] 12-01-2023 23:29-0400 Systolic blood pressure 138 mm[Hg] Virgil Tasia [facility] 12-01-2023 22:32-0400 SaO2% (BldA) [Mass fraction] 97 % Virgil Tasia [facility] 12-01-2023 22:00-0400 Diastolic blood pressure 84 mm[Hg] Virgil Tasia [facility] 12-01-2023 22:00-0400 Mean blood pressure 102 mm[Hg] Virgil Tasia [facility] 12-01-2023 22:00-0400 Systolic blood pressure 137 mm[Hg] Virgil Tasia [facility] 12-01-2023 21:00-0400 Heart rate 91 /min Virgil Tasia [facility] 12-01-2023 19:32-0400 Body temperature 98.42 [degF] Virgil Tasia [facility] 12-01-2023 19:32-0400 Heart rate 94 /min Virgil Tasia [facility] 09-26-2023 11:00-0400 Diastolic blood pressure 70 mm[Hg] MD Uriel Nunez Work Phone: [facility] 09-26-2023 11:00-0400 Heart rate 84 /min MD Uriel Nunez Work Phone: [facility] 09-26-2023 11:00-0400 Respiratory rate 24 /min MD Uriel Nunez Work Phone: [facility] 09-26-2023 11:00-0400 SaO2% (BldA) [Mass fraction] 95 % MD Uriel Nunez Work Phone: [facility] 09-26-2023 11:00-0400 Systolic blood pressure 110 mm[Hg] MD Uriel Nunez Work Phone: [facility] 09-26-2023 09:00-0400 Inhaled oxygen flow rate 2 L/min MD Uriel Nunez Work Phone: [facility] 09-26-2023 08:00-0400 Body temperature 98.2 [degF] MD Uriel Nunez Work Phone: [facility] 09-26-2023 06:00-0400 Body weight 97.8 kg MD Uriel Nunez Work Phone: [facility] 09-24-2023 12:32-0400 Body height 180.34 cm MD Uriel Nunez Work Phone: [facility] 09-23-2023 22:37-0400 Heart rate 124 /min MD Uriel Nunez Work Phone: [facility] 09-23-2023 22:30-0400 Diastolic blood pressure 66 mm[Hg] MD Uriel Nunez Work Phone: [facility] 09-23-2023 22:30-0400 SaO2% (BldA) [Mass fraction] 93 % MD Uriel Nunez Work Phone: [facility] 09-23-2023 22:30-0400 Systolic blood pressure 101 mm[Hg] MD Uriel Nunez Work Phone: [facility] 09-23-2023 22:00-0400 Respiratory rate 20 /min MD Uriel Nunez Work Phone: [facility] 09-23-2023 20:30-0400 Inhaled oxygen flow rate 2 L/min MD Uriel Nunez Work Phone: [facility] 09-23-2023 18:20-0400 Body height 180.34 cm MD Uriel Nunez Work Phone: [facility] 09-23-2023 18:20-0400 Body weight 96.8 kg MD Uriel Nunez Work Phone: [facility] 09-23-2023 18:13-0400 Body temperature 98 [degF] MD Uriel Nunez Work Phone: [facility] 08-26-2023 07:52-0400 Body height 177.8 cm Pacc 3 Work Phone: [facility] 08-26-2023 07:52-0400 Body temperature 97.7 [degF] Pacc 3 Work Phone: [facility] 08-26-2023 07:52-0400 Body weight 97.3 kg Pacc 3 Work Phone: [facility] 08-26-2023 07:52-0400 Diastolic blood pressure 90 mm[Hg] Pacc 3 Work Phone: [facility] 08-26-2023 07:52-0400 Heart rate 84 /min Pacc 3 Work Phone: [facility] 08-26-2023 07:52-0400 SaO2% (BldA) [Mass fraction] 98 % Pacc 3 Work Phone: [facility] 08-26-2023 07:52-0400 Systolic blood pressure 141 mm[Hg] Pacc 3 Work Phone: [facility] 04-22-2023 21:28-0500 Body temperature 97.52 [degF] Kaylinn Dokken [facility] 04-22-2023 21:28-0500 Diastolic blood pressure 70 mm[Hg] Kaylinn Dokken [facility] 04-22-2023 21:28-0500 Heart rate 100 /min Kaylinn Dokken [facility] 04-22-2023 21:28-0500 Respiratory rate 18 /min Kaylinn Dokken [facility] 04-22-2023 21:28-0500 SaO2% (BldA) [Mass fraction] 99 % Riannaylinn Dokken [facility] 04-22-2023 21:28-0500 Systolic blood pressure 133 mm[Hg] Kaylinn Dokken [facility] 03-04-2023 10:09-0400 Blood Pressure Location Nahed Lue [facility] 03-04-2023 10:09-0400 Diastolic blood pressure 82 mm[Hg] Nahed Lue [facility] 03-04-2023 10:09-0400 Heart rate 78 /min Nahed Lue [facility] 03-04-2023 10:09-0400 Respiratory rate 16 /min Nahed Lue [facility] 03-04-2023 10:09-0400 Systolic blood pressure 124 mm[Hg] Nahed Lue [facility] 12-16-2022 14:39-0400 Body height 177.8 cm Lino Mendiola MD Work Phone: [facility] 12-16-2022 14:39-0400 Body weight 95.25 kg Lino Mendiola MD Work Phone: [facility] 12-16-2022 14:39-0400 Diastolic blood pressure 86 mm[Hg] Lino Mendiola MD Work Phone: [facility] 12-16-2022 14:39-0400 Heart rate 83 /min Lino Mendiola MD Work Phone: [facility] 12-16-2022 14:39-0400 SaO2% (BldA) [Mass fraction] 98 % Lino Mendiola MD Work Phone: [facility] 12-16-2022 14:39-0400 Systolic blood pressure 144 mm[Hg] Lino Mendiola MD Work Phone: [facility] 10-29-2022 22:34-0400 Body height 177.8 cm MD Uriel Nunez Work Phone: [facility] 10-29-2022 22:34-0400 Body temperature 98.2 [degF] MD Uriel Nunez Work Phone: [facility] 10-29-2022 22:34-0400 Body weight 100.85 kg MD Uriel Nunez Work Phone: [facility] 10-29-2022 22:34-0400 Diastolic blood pressure 86 mm[Hg] MD Uriel Nunez Work Phone: [facility] 10-29-2022 22:34-0400 Heart rate 98 /min MD Uriel Nunez Work Phone: [facility] 10-29-2022 22:34-0400 Respiratory rate 14 /min MD Uriel Nunez Work Phone: [facility] 10-29-2022 22:34-0400 SaO2% (BldA) [Mass fraction] 100 % MD Uriel Nunez Work Phone: [facility] 10-29-2022 22:34-0400 Systolic blood pressure 150 mm[Hg] MD Uriel Nunez Work Phone: [facility] 09-29-2022 13:10-0400 Blood Pressure Location Scott Nassar [facility] 09-29-2022 13:10-0400 Body temperature 98.06 [degF] Scott Nassar [facility] 09-29-2022 13:10-0400 Diastolic blood pressure 88 mm[Hg] Scott Nassar [facility] 09-29-2022 13:10-0400 Heart rate 82 /min Scott Nassar [facility] 09-29-2022 13:10-0400 Mean blood pressure 106 mm[Hg] Scott Nassar [facility] 09-29-2022 13:10-0400 Respiratory rate 16 /min Scott Nassar [facility] 09-29-2022 13:10-0400 SaO2% (BldA) [Mass fraction] 98 % Scott Nassar [facility] 09-29-2022 13:10-0400 Systolic blood pressure 142 mm[Hg] Scott Nassar [facility] 09-29-2022 12:00-0400 Body temperature 97.7 [degF] Scott Nassar [facility] 09-29-2022 12:00-0400 Diastolic blood pressure 84 mm[Hg] Scott Nassar [facility] 09-29-2022 12:00-0400 Heart rate 80 /min Scott Nassar [facility] 09-29-2022 12:00-0400 SaO2% (BldA) [Mass fraction] 95 % Scott Maday [facility] 09-29-2022 12:00-0400 Systolic blood pressure 134 mm[Hg] Scott Maday [facility] 09-29-2022 11:51-0400 Body temperature 97.52 [degF] Scott Maday [facility] 09-29-2022 11:51-0400 Diastolic blood pressure 111 mm[Hg] Scott Maday [facility] 09-29-2022 11:51-0400 Heart rate 83 /min Scott Maday [facility] 09-29-2022 11:51-0400 Mean blood pressure 117 mm[Hg] Scott Maday [facility] 09-29-2022 11:51-0400 Respiratory rate 17 /min Scott Maday [facility] 09-29-2022 11:51-0400 SaO2% (BldA) [Mass fraction] 94 % Scott Maday [facility] 09-29-2022 11:51-0400 Systolic blood pressure 129 mm[Hg] Scott Maday [facility] 09-29-2022 11:40-0400 Mean blood pressure 91 mm[Hg] Scott Maday [facility] 09-29-2022 11:40-0400 Respiratory rate 18 /min Scott Maday [facility] 09-29-2022 11:35-0400 Respiratory rate 16 /min Scott Nassar [facility] 09-29-2022 11:26-0400 Body temperature 96.98 [degF] Scott Nassar [facility] 09-29-2022 08:31-0400 Blood Pressure Location Scott Nassar [facility] 09-29-2022 08:30-0400 Body temperature 97.52 [degF] Scott Maday [facility] 09-29-2022 08:30-0400 Heart rate 96 /min Scott Maday [facility] 09-29-2022 08:30-0400 Respiratory rate 18 /min Scott Maday [facility] 09-19-2022 13:12-0400 Diastolic blood pressure 86 mm[Hg] Scott Maday [facility] 09-19-2022 13:12-0400 Heart rate 80 /min Scott Maday [facility] 09-19-2022 13:12-0400 Mean blood pressure 100 mm[Hg] Scott Maday [facility] 09-19-2022 13:12-0400 Systolic blood pressure 127 mm[Hg] Scott Maday [facility] 09-19-2022 13:12-0400 Blood Pressure Location Scott Maday [facility] 09-19-2022 13:11-0400 Heart rate 82 /min Scott Maday [facility] 09-19-2022 13:11-0400 SaO2% (BldA) [Mass fraction] 96 % Scott Maday [facility] 09-19-2022 13:11-0400 Respiratory rate 16 /min Scott Maday [facility] 09-19-2022 13:10-0400 Body temperature 98.24 [degF] Scott Maday [facility] 09-19-2022 13:10-0400 Diastolic blood pressure 88 mm[Hg] Scott Maday [facility] 09-19-2022 13:10-0400 Mean blood pressure 100 mm[Hg] Scott Nassar [facility] 09-19-2022 13:10-0400 Systolic blood pressure 125 mm[Hg] Scott Nassar [facility] 09-19-2022 13:10-0400 Blood Pressure Location Scott Nassar [facility] 01-07-2022 12:47-0400 Body height 180.3 cm Jose Angel Emery APRN.[employer] Work Phone: [facility] 01-07-2022 12:47-0400 Body weight 98.7 kg Jose Angel Emery APRN.[employer] Work Phone: [facility] 01-07-2022 12:47-0400 Diastolic blood pressure 77 mm[Hg] Jose Angel Emery APRN.[employer] Work Phone: [facility] 01-07-2022 12:47-0400 Heart rate 86 /min Jose Angel Emery APRN.[employer] Work Phone: [facility] 01-07-2022 12:47-0400 Respiratory rate 19 /min Jose Angel Emery APRN.[employer] Work Phone: [facility] 01-07-2022 12:47-0400 SaO2% (BldA) [Mass fraction] 98 % Jose Angel Emery APRN.[employer] Work Phone: [facility] 01-07-2022 12:47-0400 Systolic blood pressure 137 mm[Hg] Jose Angel Emery APRN.[employer] Work Phone: [facility] 08-20-2021 14:15-0400 Body height 180.3 cm Lino Mendiola MD Work Phone: [facility] 08-20-2021 14:15-0400 Body weight 98.88 kg Lino Mendiola MD Work Phone: [facility] 08-20-2021 14:15-0400 Diastolic blood pressure 87 mm[Hg] Lino Mendiola MD Work Phone: [facility] 08-20-2021 14:15-0400 Heart rate 104 /min Lino Mendiola MD Work Phone: [facility] 08-20-2021 14:15-0400 Respiratory rate 19 /min Lino Mendiola MD Work Phone: [facility] 08-20-2021 14:15-0400 SaO2% (BldA) [Mass fraction] 97 % Lino Mendiola MD Work Phone: [facility] 08-20-2021 14:15-0400 Systolic blood pressure 130 mm[Hg] Lino Mendiola MD Work Phone: [facility] Encounters Encounter Date Encounter Type Care Provider Facility Start: 03-22-2024 ambulatory Uriel Nunez Facility: [facility] Start: 03-17-2024 End: 03-18-2024 Refill Dutch Love APRN.[employer] Work Phone: Neurology Comment on above: Refill Request Start: 03-16-2024 End: 03-16-2024 ambulatory Krzysztof E Krzysztof DO Work Phone: Pain Management Comment on above: Pain Questionnaire Start: 03-16-2024 End: 03-16-2024 E-mail encounter from caregiver Krzysztof E Krzysztof DO Work Phone: Pain Management Start: 03-03-2024 End: 03-03-2024 Telephone encounter Johann Awad MD Work Phone: Neurology Comment on above: Letter (Letter for w ork ) Start: 03-02-2024 End: 03-02-2024 Telephone encounter Lj Cabello [employer] [facility] Comment on above: re: PT (I had to con tact re: NC/NS for PT today and he said he is in transition to a new doctor and we should be receiving a new referral from him. He is cancelling out his 3 remaining; he noted he would like to proceed w/ PT once new referral has been obtained.) Start: 03-01-2024 End: 03-01-2024 ambulatory No Pcp [employer] [facility] Start: 03-01-2024 End: 03-01-2024 Patient encounter procedure No Pcp [employer] [facility] Start: 03-01-2024 End: 03-09-2024 Telephone encounter Love Espinoza RN [facility] Start: 02-29-2024 End: 02-29-2024 ambulatory SELF Facility:[facility] Start: 02-22-2024 End: 02-22-2024 Bamboo flowsheet Shawnee Jonas PT [facility] Start: 02-22-2024 End: 02-22-2024 Bamboo flowsheet Shawnee Jonas PT [facility] Start: 02-22-2024 End: 02-22-2024 ambulatory SHAWNEE JONAS [facility] Comment on above: Low back pain, unspe cified back pain laterality, unspecified chronicity, unspecified whether sciatica present (Primary Dx); Pain in thoracic spine; Other chronic pain Start: 02-18-2024 End: 02-18-2024 Telephone encounter Ramin Peacock [employer] [facility] Start: 02-04-2024 End: 02-04-2024 Telephone encounter Jessenia ESQUIVEL Neurology Comment on above: Social Work Services Start: 02-01-2024 End: 02-01-2024 Orders Only Inez DE LA FUENTE-Joselin Work Phone: Neurology Comment on above: Chronic migraine wit hout aura without status migrainosus, not intractable (Primary Dx) Start: 01-19-2024 End: 01-19-2024 ambulatory [facility] Start: 01-19-2024 End: 01-21-2024 Refill Inez Cordero PA-C Work Phone: Neurology Comment on above: Refill Request Start: 01-19-2024 End: 01-19-2024 ambulatory [facility] Start: 12-28-2023 End: 12-28-2023 Emergency department patient visit URIEL Browning Jesus [facility] Start: 12-28-2023 End: 12-28-2023 ambulatory SELF Facility:[facility] Start: 12-01-2023 End: 12-02-2023 Emergency department patient visit Virgil Dozier [facility] Start: 11-23-2023 Telephone encounter Jessenia DOMINGUEZ Neurology Comment on above: Social Work Services Start: 11-17-2023 End: 11-17-2023 ambulatory URIEL NUNEZ Facility:[facility] Start: 11-09-2023 End: 11-09-2023 ambulatory PAOLA MICHEL Not Available Start: 11-03-2023 End: 11-03-2023 Admission to same day surgery center Aida Ervin PA-C Work Phone: Neurosurgery Comment on above: 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 (Primary Dx); Partial epilepsy with impairment of consciousness, intractable (HCC) Start: 11-03-2023 End: 11-03-2023 Telemedicine consultation with patient Aida Arcadio MANCUSO Work Phone: Neurosurgery Start: 11-03-2023 End: 11-03-2023 ambulatory Kanika Bennett APRN.[employer] Work Phone: Neurology Comment on above: 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, intractable (HCC) (Primary Dx) Start: 11-01-2023 Refill Lizeth EPSTEIN.[employer] Work Phone: Neurology Comment on above: Refill Request Start: 10-21-2023 End: 10-21-2023 ambulatory URIEL NUNEZ Facility:[facility] Start: 10-13-2023 Refill Lino Mendiola MD Work Phone: Neurology Comment on above: Refill Request Social Work Services Start: 10-07-2023 End: 10-07-2023 ambulatory URIEL NUNEZ Facility:[facility] Start: 09-26-2023 End: 09-29-2023 Evaluation and management of inpatient Temitope Woodward Facility:[facility] Start: 09-25-2023 Non-patient / Non-visit MD Jes Nunez Work Phone: [facility] Work Phone: Start: 09-24-2023 Non-patient / Non-visit MD Jes Nunez Work Phone: [facility] Work Phone: Start: 09-23-2023 End: 09-26-2023 Evaluation and management of inpatient MD Uriel Nunez Work Phone: [facility] Work Phone: Start: 09-22-2023 Registered Recurring MD Johny Nunez Work Phone: [facility] Start: 09-17-2023 Admission to [facility] Neurosurgery Comment on above: Suture Issues Start: 09-17-2023 E-mail encounter fro m caregiver [facility] Neurosurgery Start: 09-17-2023 Telephone encounter Johann Awad MD Work Phone: Neurology Comment on above: General (Stitch Abena ing Out Of Neck) Start: 08-31-2023 End: 08-31-2023 ambulatory URIEL NUNEZ Facility:[facility] Start: 08-26-2023 End: 08-26-2023 Nursing evaluation of patient and report Kristyn Quinteros RN Work Phone: Neurosurgery Comment on above: Focal epilepsy with impairment of consciousness, intractable (HCC) (Primary Dx) Start: 08-26-2023 End: 08-26-2023 ambulatory URIEL NUNEZ Facility:[facility] Start: 08-26-2023 End: 08-26-2023 ambulatory JOHANN AWAD Facility:[facility] Start: 08-26-2023 Encounter for other preprocedural examination MICHAEL CORDOBA [facility] Start: 08-26-2023 End: 08-26-2023 Patient encounter status Xr [facility] Start: 08-26-2023 End: 08-26-2023 Subsequent hospital visit by physician Xr Chest Main A21 Radiology Comment on above: Preoperative testing [Z01.818] Start: 08-26-2023 Encounter for other preprocedural examination MICHAEL CORDOBA [facility] Start: 08-26-2023 End: 08-26-2023 Preprocedural examination done [facility] Work Phone: [facility] Work Phone: Start: 08-26-2023 End: 08-26-2023 PAT [facility] Work Phone: Pre Anesthesia Comment on above: Pre-op evaluation (P rimary Dx); Hypertension, unspecified type; HIMA (obstructive sleep apnea); Severe mixed bipolar I disorder without psychotic features (HCC); Migraine without aura, intractable, with status migrainosus; Epilepsy with altered consciousness without intractable epilepsy (HCC); Depression with anxiety 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, intractable (HCC) Start: 08-19-2023 End: 08-19-2023 ambulatory URIEL NUNEZ Facility:[facility] Start: 08-10-2023 Telephone encounter Johann Awad MD Work Phone: Neurology Comment on above: Other (Surgery Time, Transportation) Start: 08-07-2023 End: 08-07-2023 ambulatory MICHAELCARLOS CORDOBA Facility:[facility] Start: 08-06-2023 Telephone encounter Lino voss MD Work Phone: Neurology Comment on above: Forms (bmv) Start: 08-05-2023 Admission to [facility] Johann Awad MD Work Phone: Neurosurgery Comment on above: Schedule Surgery (VN S change) Start: 08-05-2023 ambulatory Johann ghosh MD Work Phone: [facility] Start: 08-05-2023 Patient encounter status Wayne Awad MD Work Phone: [facility] Start: 08-05-2023 Telephone encounter Kristin jackson MD Work Phone: Neurosurgery Comment on above: [employer] - [employer] Start: 08-03-2023 Telephone encounter Lino voss MD Work Phone: Neurology Comment on above: Forms (BMV) Start: 08-03-2023 End: 08-03-2023 Patient encounter procedure Inez Cordero PA-C Work Phone: Neurology Comment on above: 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, intractable (HCC) Start: 08-03-2023 End: 08-03-2023 ambulatory SELF Facility:[facility] Start: 07-24-2023 End: 07-24-2023 ambulatory [facility] Facility:[facility] Start: 07-22-2023 Refill Geraldine rodriguez MD Work Phone: Neurology Comment on above: Refill Request Start: 07-16-2023 End: 07-17-2023 Emergency department patient visit [facility] Start: 07-12-2023 Non-patient / Non-visit MD Jes Nunez Work Phone: [facility] Work Phone: Start: 07-10-2023 End: 07-10-2023 ambulatory [facility] Facility:[facility] Start: 06-26-2023 Telephone encounter Geraldine gandara MD Work Phone: Neurology Comment on above: Medication Authoriza tion Start: 06-26-2023 End: 06-26-2023 ambulatory [facility] Facility:[facility] Start: 06-24-2023 ambulatory MYA TENA Facility:[facility] Start: 06-24-2023 End: 06-24-2023 Subsequent hospital visit by physician Iop Team B [facility] [place] Comment on above: Discharge Summary - Afua Rae LPCC - 06/24/2023 9:00 AM EST Summary: DBT IOP Discharge Summary BEHAVIORAL HEALTH IOP (INTENSIVE OUTPATIENT PROGRAM) CLOSING SUMMARY OPENING/ADMIT DATE: 05/13/23 CLOSING/TERMINATION DATE: 06/24/23 DATE OF LAST CONTACT: 06/24/23 PRESENTING COMPLAINT: From H&P completed by Josi Queen PA-C on 05/12/23: [...] additional support at a local emergency room ([facility]) if needed, and has also been [...] others. Date Initiated: 05/13/23 Target Date: 06/24/23 Closed 06/24/23: Pt has increased his awareness of the emotion anger and acknowledges benefits of pausing and/or distancing himself from triggers to reduce the intensity of anger (more content not included)... Start: 06-23-2023 ambulatory URIEL Browning ALEXANDERJesus Facility: [facility] Start: 06-23-2023 End: 06-23-2023 Subsequent hospital visit by physician Iop Team Katie [facility] [place] Start: 06-22-2023 ambulatory URIEL M HOY Facility: [facility] Start: 06-22-2023 End: 06-22-2023 Subsequent hospital visit by physician Iop Team B [facility] [place] Start: 06-19-2023 End: 06-19-2023 ambulatory Nahed Doran Facility:[facility] Start: 06-19-2023 End: 06-19-2023 Patient encounter procedure Nahed Doran [facility] Start: 06-18-2023 ambulatory URIEL M HOY Facility: [facility] Start: 06-18-2023 End: 06-18-2023 Subsequent hospital visit by physician Iop Team B [facility] [place] Start: 06-17-2023 ambulatory JOSI DETTLING Facility :[facility] Start: 06-17-2023 End: 06-17-2023 Subsequent hospital visit by physician Iop Team B [facility] [place] Start: 06-16-2023 ambulatory URIEL M HOY Facility: [facility] Start: 06-16-2023 End: 06-16-2023 Subsequent hospital visit by physician Iop Team B [facility] [place] Start: 06-15-2023 ambulatory URIEL M HOY Facility: [facility] Start: 06-15-2023 End: 06-15-2023 Subsequent hospital visit by physician Iop Team B [facility] [place] Start: 06-11-2023 ambulatory URIEL M HOY Facility: [facility] Start: 06-11-2023 End: 06-11-2023 Subsequent hospital visit by physician Mya Tena APRN.CNP Work Phone: [facility] [place] Start: 06-09-2023 ambulatory URIEL M HOY Facility: [facility] Start: 06-09-2023 End: 06-09-2023 Subsequent hospital visit by physician Iop Team B [facility] [place] Start: 06-08-2023 ambulatory URIEL M HOY Facility: [facility] Start: 06-08-2023 End: 06-08-2023 Subsequent hospital visit by physician Iop Team B [facility] [place] Start: 06-05-2023 End: 06-05-2023 ambulatory NICK ROBERTSON Facility:[facility] Start: 06-04-2023 ambulatory URIEL NUNEZ Facility: [facility] Start: 06-04-2023 End: 06-04-2023 Subsequent hospital visit by physician Iop Team B [facility] [place] Start: 06-03-2023 ambulatory URIEL NUNEZ Facility: [facility] Start: 06-03-2023 End: 06-03-2023 Subsequent hospital visit by physician Iop Team [facility] [place] Start: 05-29-2023 End: 05-29-2023 ambulatory Nahed Fowlerbud Facility:[facility] Start: 05-28-2023 ambulatory JOSI DETTLING Facility :[facility] Start: 05-27-2023 ambulatory JOSI DETTLING Facility :[facility] Start: 05-27-2023 ambulatory MYA TENA Facility:[facility] Start: 05-27-2023 End: 05-27-2023 Subsequent hospital visit by physician Iop Team B [facility] [place] Start: 05-27-2023 End: 05-27-2023 Subsequent hospital visit by physician Mya Tena APRN.[employer] Work Phone: [facility] [place] Start: 05-26-2023 ambulatory URIEL NUNEZ Facility: [facility] Start: 05-26-2023 End: 05-26-2023 Subsequent hospital visit by physician Iop Team B [facility] [place] Start: 05-25-2023 ambulatory MYA TENA Facility:[facility] Start: 05-25-2023 End: 05-25-2023 Subsequent hospital visit by physician Mya Tena [employer] Work Phone: [facility] [place] Comment on above: Canceled (Pt cx: Radha cardenas in Condition, Sick) Start: 05-21-2023 ambulatory URIEL M HOY Facility: [facility] Start: 05-21-2023 End: 05-21-2023 Subsequent hospital visit by physician Iop Team B [facility] [place] Start: 05-20-2023 ambulatory URIEL M ALEXANDERY Facility: [facility] Start: 05-20-2023 End: 05-20-2023 Subsequent hospital visit by physician Iop Team B [facility] [place] Start: 05-19-2023 ambulatory URIEL M HOY Facility: [facility] Start: 05-19-2023 End: 05-19-2023 Subsequent hospital visit by physician Iop Team B [facility] [place] Start: 05-14-2023 ambulatory URIEL M HOY Facility: [facility] Start: 05-14-2023 End: 05-14-2023 Subsequent hospital visit by physician Iop Team B [facility] [place] Start: 05-13-2023 ambulatory MYA TENA Facility:[facility] Start: 05-13-2023 End: 05-13-2023 Subsequent hospital visit by physician Iop Team B [facility] [place] Start: 05-12-2023 ambulatory MICHAEL Jay acility:[facility] Start: 05-12-2023 End: 05-12-2023 Subsequent hospital visit by physician Josi Queen PA-C Work Phone: [facility] [place] Start: 05-08-2023 End: 05-08-2023 ambulatory [facility] Facility:[facility] Start: 05-08-2023 End: 05-08-2023 ambulatory [facility] Facility:[facility] Start: 05-08-2023 End: 05-08-2023 ambulatory [facility] Facility:[facility] Start: 04-27-2023 ambulatory MICHAELCARLOS Jay acility:[facility] Start: 04-24-2023 End: 04-24-2023 ambulatory [facility] Not Available Start: 04-22-2023 End: 04-22-2023 Emergency department patient visit Issa Levy [facility] Start: 04-17-2023 End: 04-17-2023 ambulatory MICHAEL CORDOBA Facility:[facility] Start: 04-10-2023 End: 04-10-2023 ambulatory URIEL NUNEZ Facility:[facility] Start: 04-07-2023 Telephone encounter Lewis harding [facility] Work Phone: Psychiatry Comment on above: Patient Update Start: 03-26-2023 Refill Lino Mendiola MD Work Phone: Neurology Comment on above: Refill Request Start: 03-04-2023 End: 03-04-2023 ambulatory Nahed Nallely. Janethe Facility:[facility] Start: 03-04-2023 End: 03-04-2023 Lab Drop off Nahed M. Janethe [facility] Start: 03-04-2023 End: 03-04-2023 ambulatory Nahed M. Lue Facility:[facility] Start: 03-04-2023 End: 03-04-2023 Patient encounter procedure Nahed Browning. Janethe [facility] Start: 02-27-2023 End: 02-27-2023 ambulatory Geraldine Alonso MD Work Phone: Neurology Comment on above: Chronic migraine wit hout aura without status migrainosus, not intractable (Primary Dx) Start: 02-27-2023 End: 02-27-2023 Telemedicine consultation with patient Geraldine Alonso MD Work Phone: [facility] Start: 01-29-2023 End: 01-29-2023 ambulatory Geraldine Alonso MD Work Phone: Neurology Comment on above: Chronic migraine wit hout aura without status migrainosus, not intractable (Primary Dx) Start: 01-29-2023 End: 01-29-2023 Telemedicine consultation with patient Geraldine Alonso MD Work Phone: [facility] Start: 12-16-2022 Telephone encounter Lino voss MD Work Phone: Neurology Comment on above: Medication Concern ( Indomethacin) Start: 12-16-2022 End: 12-16-2022 Patient encounter procedure Cassandra Grant PhD Work Phone: Neurology Comment on above: Bipolar II disorder (HCC) (Primary Dx) Migraine without aur a, intractable, with status migrainosus (Primary Dx); Partial epilepsy with impairment of consciousness, intractable (HCC) Start: 12-12-2022 Refill Lizeth Rodriguez PRN.CNP Work Phone: Neurology Start: 12-11-2022 Refill Geraldine rodriguez MD Work Phone: Neurology Comment on above: Refill Request medication concern Start: 11-20-2022 ambulatory Lino Mendiola MD Work Phone: Neurology Comment on above: mental health Start: 11-20-2022 Telephone encounter Geraldine gandara MD Work Phone: Neurology Start: 10-29-2022 End: 10-29-2022 Emergency department patient visit MD Uriel Nunez Work Phone: [facility] Work Phone: Start: 09-29-2022 End: 09-29-2022 Admission to same day surgery center Scott Nassar [facility] Start: 09-19-2022 ambulatory Facility:1 [id number] Start: 09-19-2022 End: 09-19-2022 Patient encounter procedure Scott Nassar [facility] Start: 09-17-2022 Telephone encounter Lino voss MD Work Phone: Neurology Comment on above: Letter (Surgery colton santiago) Start: 08-28-2022 ambulatory Lino Mendiola MD Work Phone: Neurology Comment on above: VNS Start: 08-12-2022 End: 08-12-2022 ambulatory GERALDINE ALONSO Facility:[facility] Start: 07-31-2022 Telephone encounter Lino voss MD Work Phone: Neurology Comment on above: Opened In Error (//) Other (Patient needs to have MRI of knee) Start: 07-28-2022 End: 07-29-[address] URIEL NUNEZ . Facility: Start: 07-15-2022 Refill Lino Mendiola MD Work Phone: Neurology Comment on above: Refill Request Start: 07-09-2022 Telephone encounter Lino voss MD Work Phone: Neurology Comment on above: Other (headaches) Start: 04-28-2022 End: 04-28-2022 Patient encounter procedure Aida Ervin PA-C Work Phone: Neurosurgery Comment on above: 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 (Primary Dx); Tenderness of neck Start: 02-17-2022 Refill Lino Mendiola MD Work Phone: Neurology Comment on above: Refill Request Start: 02-15-2022 Refill Jemima Olivera Work Phone: Neurology Comment on above: Refill Request Start: 02-13-2022 Telephone encounter Michael Cordoba RN Neurology Comment on above: Patient Question Start: 01-12-2022 End: 01-13-[address] URIEL NUNEZ . Facility: Start: 01-07-2022 End: 01-07-2022 Patient encounter procedure Jose Angel Emery APRN.[employer] Work Phone: Neurosurgery Comment on above: 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 (Primary Dx) Start: 01-07-2022 End: 01-07-2022 Subsequent hospital visit by physician Xr Chest Main J1 Work Phone: Radiology Comment on above: 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 [Z96.89] Start: 01-06-2022 ambulatory Johann ghosh MD Work Phone: Neurosurgery Comment on above: Jaye Start: 01-06-2022 Patient encounter procedure Johann Awad MD Work Phone: Neurosurgery Comment on above: Appointment Start: 01-06-2022 Telephone encounter Johann Awad MD Work Phone: Neurology Comment on above: Patient Update (Vns issue) Start: 01-05-2022 End: 01-06-[address] URIEL NUNEZ . Facility:[facility] Start: 12-25-[address] URIEL NUNEZ . Facili ty:[facility] Start: 11-02-[address] URIEL NUNEZ . Facili ty:[facility] Start: 10-04-2021 End: 10-04-[address] [facility] Lesviamontrell Viveros PSYD Work Phone: Neurology Comment on above: Bipolar II disorder (HCC) (Primary Dx) Start: 09-27-2021 Telephone encounter Lesvia palomares PSYD Work Phone: Neurology Comment on above: Appointment Start: 09-25-2021 End: 09-26-[address] URIEL NUNEZ . Facility:[facility] Start: 09-20-2021 Telephone encounter Lesviamontrell palomares PSYD Work Phone: Neurology Comment on above: Appointment Start: 09-14-2021 End: 09-14-[address] URIEL NUNEZ . Facility:[facility] Start: 09-13-2021 End: 09-13-2021 [facility] Lesviamontrell Viveros PSYD Work Phone: Neurology Comment on above: Bipolar 2 disorder ( HCC) Start: 08-20-2021 End: 08-20-2021 Patient encounter procedure Lino Mendiola MD Work Phone: Neurology Comment on above: 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, intractable (HCC) (Primary Dx); Recurrent major depression in partial remission (HCC) Start: 11-18-2016 End: 11-18-2016 Emergency department patient visit [facility] Procedures Date Procedure Procedure Detail Performing Clinician Start: 09-25-2023 Plain chest X-ray MD Garcia Work Phone: Start: 09-23-2023 CT of head without contrast MD Uriel Nunez Work Phone: Start: 09-23-2023 Plain chest X-ray MD Garcia Work Phone: Start: 08-26-2023 Radiologic exam ches t 2 views Aida Ervin PA-C Work Phone: Start: 08-26-2023 Radiologic examinati on neck soft tissue Aida Ervin PA-C Work Phone: Start: 10-23-2022 History of operative procedure on knee S/P medial meniscectomy of left knee Ramin Peacock [employer] Start: 09-29-2022 Arthroscopy of knee Luiz Nassar Start: 01-07-2022 Radiologic exam ches t 2 views Aida Ervin PA-C Work Phone: Start: 01-07-2022 Radiologic examinati on neck soft tissue Aida Ervin PA-C Work Phone: Start: 09-25-[address] JOHNY NUNEZ . Comment on above: Performed By: #### C DONNIE, [facility] #### [facility] [address] [place] [address] Dr. Meron Gentile Start: 06-20-2020 Lipid 1996 panel - S jaspreet or Plasma Geraldine Alonso MD Work Phone: Start: 11-25-2018 Cystoscope, device (physical object) Nahed Doran Start: 11-18-2016 [facility] CESAR DHRUV ARNOLD Start: 01-04-2016 Laparoscopic appendectomy Scott Nassar Start: 05-18-2000 Vagal nerve stimulat or (physical object) Scott Nassar Comment on above: pt states he has had the implant replaced 19 times with last in 2020, and the wires were also replaced in 2020 History of tonsillectomy Luiz mike Nassar Plan of Treatment Date Care Activity Detail Author Start: 06-20-2025 Lipid 1996 panel - S jaspreet or Plasma Lipid Screening [facility] Start: 06-20-2025 Lipid panel Lipid Screening [facility] Start: 06-20-2025 LIPID SCREEN LIPID SCREEN [facility] Start: 01-18-2025 Adult BMI Screening Adult BMI Screen ing [facility] Start: 01-18-2025 Tobacco Screening Tobacco Screening [facility] Start: 03-30-2024 End: 03-30-2024 Patient encounter procedure 03/30/2024 4:30 PM EST Office Visit Pain Management [address] [place] [address] [place] [address] CHARISSE HERNANDEZ [address] [place] [id number] M51.360 (ICD-10-CM) - Degeneration of intervertebral disc of lumbar region with discogenic back pain Pain Management Comment on above: M51.360 (ICD-10-CM) - Degeneration of intervertebral disc of lumbar region with discogenic back pain Start: 03-09-2024 End: 03-09-2024 ambulatory 03/09/2024 10:00 AM EDT Treatment [facility] [address] [facility] [address] [place] [address] Shawnee Jonas, PT [facility] Start: 03-07-2024 End: 03-07-2024 ambulatory 03/07/2024 9:30 AM EDT Treatment [facility] [address] [place] [address] [place] [address] Shawnee Jonas, PT [facility] Start: 03-02-2024 End: 03-02-2024 ambulatory 03/02/2024 9:30 AM EDT Treatment [facility] [address] [place] [address] [place] [address] Lj Cabello, [employer] [facility] Start: 02-29-2024 End: 02-29-2024 ambulatory 02/29/2024 10:00 AM EDT Treatment [facility] [address] [place] [address] [place] [address] Lj Cabello, [employer] [facility] Start: 02-24-2024 End: 02-24-2024 ambulatory 02/24/2024 9:30 AM EDT Treatment [facility] [address] [place] [address] [place] [address] Lj Cabello [employer] [facility] Start: 02-22-2024 End: 02-22-2024 ambulatory [facility] Comment on above: Arrived Start: 01-17-2024 Covid-19 Vaccine ( season) Covid-19 Vaccine () [facility] Start: 01-17-2024 Covid-19 Vaccine () Covid-19 Vaccine () [facility] Start: 01-17-2024 Influenza vaccination [facility] Start: 11-03-2023 End: 02-02-2024 LACOSAMIDE LACOSAMIDE Lab Routine Partial epilepsy with impairment of consciousness, intractable (HCC) Expected: 11/03/2023, Expires: 02/02/2024 [facility] Work Phone: Comment on above: Expected: 11/03/2023 , Expires: 02/02/2024 Start: 11-03-2023 End: 11-03-2023 Patient encounter procedure Neurology Comment on above: follow up f/u Start: 09-28-2023 End: 09-28-2023 Admission to same day surgery center 09/28/2023 11:30 AM EDT [facility] Emergency [facility] Health Neurosurgery [address] [place] [address] Aida Ervin PA-C [address] [place], [place] [id number] POST-OP 6WKS Neurosurgery Comment on above: POST-OP 6WKS Start: 09-26-2023 [facility] Start: 09-25-2023 Referral to psychiatrist [facility] Start: 09-23-2023 Consultation [facility] Start: 09-23-2023 Hospital admission [facility] Start: 08-26-2023 End: 11-25-2023 aPTT in Platelet poor plasma by Coagulation assay ACTIVATED PTT Lab Routine Encounter for therapeutic drug level monitoring Expected: 08/26/2023, Expires: 11/25/2023 [facility] Work Phone: Comment on above: Expected: 08/26/2023 , Expires: 11/25/2023 Start: 08-26-2023 End: 11-25-2023 CBC panel - Blood by Automated count CBC Lab Routine Preoperative testing Expected: 08/26/2023, Expires: 11/25/2023 [facility] Work Phone: Comment on above: Expected: 08/26/2023 , Expires: 11/25/2023 Start: 08-26-2023 End: 11-25-2023 Comprehensive metabolic 2000 panel - Serum or Plasma COMP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 He also does see [facility] counseling 3 times a week. Upon questioning the patient he states that he has been having relationship issues with his girlfriend for years. He states that she recently told him that she does not want to be with him anymore,and that seems to tyler the beginning of this episode of increasing depression, anxiety, suicidal ideation. He states the last time that he had a suicide attempt was 4 years ago when his girlfriend reportedly cheated on him. He follows up with psychiatry at the [facility]. He said he was previously hospitalized at and a psychiatrist prescribed for him Pristiq back then whichworsened his seizures. 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 Review of systems: Constitutional: Denies chills and denies fever Eyes: Denies change in vision ENT: Denies abnormal hearing Cardiovascular: Denies chest pain Respiratory: Denies chest congestion and denies cough Gastrointestinal: Denies change in bowel habits Genitourinary: Denies dysuria Musculoskeletal: Headache Integumentary/breast: Denies dry skin Neurologic: Denies abnormal gait and denies abnormal movements Psychiatric: reports depression and suicidal ideation Physical exam: Constitutional: Cooperative Nutritional appearance: Average body habitus Orientation: Alert, awake and oriented x 3 HEENT: Head normal to inspection, hearing grossly normal bilaterally, external nose normal, face symmetric Eyes: Appearance normal, both eyes and all related structures, sclera normal Neck: Normal visual inspection and full ROM Respiratory: Normal respiratory effort, able to speak in complete sentences and symmetric chest movement Cardio: Tachycardic GI: Normal to inspection and nondistended : Deferred, Yanes in place with 100 mL of clear yellow urine Skin: No rashes or lesions noted Neuro: CN I: Normal olfaction, CN II: Visual cisneros intact, CN III, IV, : EOM intact, no nystagmus. Pupils equal, round, reactive to light and accommodation,CN V: Sensation intact to light touch, CN VII: Raises eyebrows, smile/frown, puff out cheeks symmetrically, CN VIII: Hearing intact bilaterally, CN IX, X: Voice normal, soft palate elevation normal, symmetrical, CN XI: Shoulder shrug strong, equal bilaterally, CN XII: Tongue protrusion midline, movements symmetrical. Extremities: Normal to inspection and full ROM Mental Status Exam: Appearance: grossly normal Mental Status: mental status grossly normal Mood: dysthymic mood Affect: dysphoric affect Speech and Movement: speech normal, movement normal Attitude: cooperative Thought Process: normal Thought Content: Denied hallucinations, no homicidality, reported suicidality Insight: fair Judgment: fair [facility] Medical History (Updated 09/25/23 @ 11:58 by Scott Monterroso MD) Suicide attempt about 10 attempts, first attempt at age 16 Bipolar disorder Neurostimulator device in situ in L chest, for seizures Depression Anxiety Sleep apnea non-compliant w/ cpap Seizure Hypertension GI bleed Surgical History (Updated 09/24/23 @ 00:52 by Arabella Veloz APRN) H/O arthroscopic knee surgery History of appendectomy Family History (Updated 09/24/23 @ 00:52 by Arabella Veloz APRN) Father Myocardial infarction Social History Smoking Status: Never smoker Substance Use Type: None Social History Comments: lives in a duplex Meds Medications and Allergies Allergies levetiracetam Allergy (Mild, Verified 01/01/23 14:55) Unknown Reaction desvenlafaxine [From Pristiq] Allergy (Verified 01/01/23 14:55) Seizure Home Medications lacosamide 100 mg tablet (Vimpat) 100 mg PO BID 01/15/17 [History Confirmed 09/25/23] propranolol 120 mg capsule,24 hr,extended release (Inderal LA) 120 mg PO QDAY 01/15/17 [History Confirmed 09/25/23] quetiapine 200 mg tablet 300 mg PO HS 01/15/17 [History Confirmed 09/25/23] sertraline 100 mg tablet 300 mg PO QHS 01/15/17 [History Confirmed 09/25/23] albuterol sulfate 90 mcg/actuation aerosol inhaler 1 - 2 puff inhalation QID PRNDyspnea 05/28/17 [History Confirmed 09/25/23] clonazepam 2 mg tablet 2 mg PO TID 05/28/17 [History Confirmed 09/25/23] cyproheptadine 4 mg tablet 4 mg PO BID 09/07/18 [History Confirmed 09/25/23] lorazepam 2 mg/mL injection solution (Ativan) 1 mg IM ONCE PRN Seizure Activity 01/01/23 [History Confirmed 09/25/23] docusate sodium 100 mg capsule mg PO 09/25/23 [History] Exam Physical Exam Vital Signs: Temp Pulse Resp BP Pulse Ox O2 Del Method O2 Flow Rate 98.1 F 110 H 23 138/90 95 Nasal Cannula 2 09/25/23 00:00 09/25/23 10:00 09/25/23 10:00 09/25/23 10:00 09/25/23 10:00 09/25/23 10:00 09/25/23 10:00 Results - Psychiatry Labs 09/23/23 18:20 09/25/23 04:57 Psychiatry Labs: 09/23/23 09/23/23 09/24/23 18:20 18:30 04:18 RBC 5.39 Hgb 15.5 Hct 45.9 MCV 85.2 MCH 28.8 MCHC 33.9 RDW 13.7 Plt Count 300 MPV 7.2 Sodium 139 139 Potassium 3.9 4.3 Chloride 103 108 H Carbon Dioxide 28.3 26.2 Anion Gap 11.6 9.1 BUN 10 9 Creatinine 0.84 0.65 L Calcium 9.4 8.1 L Total Bilirubin 0.8 AST 16 ALT 26 Alkaline Phosphatase 57 Total Protein 7.0 Albumin 4.4 Urine Color Yellow Urine Appearance Clear Urine pH 6.5 Ur Specific Wendel 1.009 Urine Protein Negative Urine Glucose (UA) Normal Urine Ketones Negative Urine Occult Blood Negative Urine Nitrite Negative Ur Leukocyte Esterase Negative 09/25/23 04:57 RBC Hgb Hct MCV MCH MCHC RDW Plt Count MPV Sodium 135 L Potassium 3.9 Chloride 104 Carbon Dioxide 25.1 Anion Gap 9.8 BUN 5 L Creatinine 0.73 Calcium 8.7 Total Bilirubin 1.3 H AST 16 ALT 23 Alkaline Phosphatase 61 Total Protein 6.6 Albumin 3.9 Urine Color Urine Appearance Urine pH Ur Specific Wendel Urine Protein Urine Glucose (UA) Urine Ketones Urine Occult Blood Urine Nitrite Ur Leukocyte Esterase Assessment/Plan (1) Suicide attempt: (2) Overdose: Qualifiers: Encounter type: initial encounter Injury intent: intentional self-harm Qualified Code(s): T50.902A - Poisoning by unspecified drugs, medicaments and biological substances, intentional self-harm, initial encounter (3) Seizure disorder: Plan Will need to be admitted to inpatient psychiatric treatment once medically cleared. He prefers another unit besides . Restart Seroquel 50 mg p.o. nightly Attempting to obtain records from [facility] neurology and psychiatry on patient's past medication list Monitor suicidal behaviors for safety of self (15-minute face check). Recommend attending groups and psychoeducation for building coping skills. Typical short and long-term side effects of the proposed medication regiment, including contraindications and clinically significant interactions, were discussed with the patient. Side effects include but not limited to sedation, overdose, hypo or hypertension, rash, movement disorders (TD, EPS), weight gain, and appetite changes and advised the patient not to drive or drink while taking these meds. Patient should reach out to medical provider if any of these side effects occur. We also discussed risk of overdose with this current med regimen patient voiced understanding of benefits and agreement with treatment plan. Targeted symptoms and signs, possible therapeutic benefit, side effect and risks were discussed. No abnormal movements noted on exam. AIMS is Zero. Involved friends/family members if applicable to coordinate care and ensure appropriate outpatient appointments are scheduled prior to discharge. I have reviewed evaluations by other providers (ER notes, nurses and staff) Prognosis: Factors to be considered are the chronicity and severity of the symptoms and signs, associated comorbidity, and differential diagnosis-motivation to get into treatment, response to treatment, adherence to treatment recommendations, and using skills. The patient's verbal consent was provided. Documented By: Taiwo Trujillo MD [id number] Signed By: <Electronically signed by Taiwo Trujillo MD> 09/25/23 8078 [facility] Work Phone: 1(139) 605-416805-10-2024 Progress note Author Scott Monterroso [facility] September 25, 2023 12:09pm Note Date/Time September 25, 2023 12:00 pm [facility] [address] [place] [id number] Pulmonology Progress Note Signed Patient: Jaye Coles MR#: [id number] : 1980 Acct:[id number] Age/Sex: 42 / M Adm Date: 4 Loc: Room: [address] [place] [address] Type: ADM IN Attending Dr: Mary Calhoun MD Copies to: ~ Date of Service: 09/25/2023 Subjective Subjective Narrative: Developed hypoxia overnight and was placed on supplemental oxygen at 2 L via nasal cannula. Complaining of cough but unable to cough up any secretions. Denies chest pain. Exam Physical Exam Vital Signs: Temp Pulse Resp BP Pulse Ox O2 Del Method O2 Flow Rate 98.1 F 106 H 22 132/81 96 Nasal Cannula 2 09/25/23 00:00 09/25/23 11:00 09/25/23 11:00 09/25/23 11:00 09/25/23 11:00 09/25/23 11:00 09/25/23 11:00 Narrative: CONST- Appears well -developed and well nourished. NECK-Supple, no cervical lymphadenopathy CARDIAC- tachycardic, regular rhythm, S1 & S2. PULM-diminished without wheeze or rhonchi, RA, no accessory muscle use or cough noted ABD - Soft. Bowel sounds are normal. No distention. No tenderness EXTREM-no edema BLE calves, nontender NEURO- Awake and alert, follows commands. Objective Intake and Output I&O - Last 24 Hours: Intake & Output 09/24/23 09/25/23 09/25/23 23:59 07:59 15:59 Intake Total 1150 / 3670 240 / 240 Output Total 1400 / 3300 1200 / 1200 Balance -250 / 370 -960 / -960 Weight 98.7 kg Labs 09/23/23 18:20 09/25/23 04:57 Imaging and Cardiology Chest x-ray: Additional comments: CXR from today was reviewed and shows new bibasilar infiltrates/atlectasis, moreso on the right Assessment/Plan Assessment/Plan (1) Hypoxia: Plan: For chest x-ray showing new bibasilar infiltrates, likely due to atelectasis. No signs or symptoms suggesting acute pneumonic process at this point with normal white blood cell count and afebrile. I will hold off on antibiotics for now, check a procalcitonin level and reevaluate accordingly. At this send there is prominence to his regimen. Resume obstructive sleep apnea therapy. (2) HIMA (obstructive sleep apnea): Plan: Recently has been noncompliant with his BiPAP at home due to recent surgery. Developed hypoxia overnight likely related to the above. We will start an auto titrating CPAP. The patient was advised to bring his homeBiPAP machine to resume it during his hospitalization. (3) Suicide attempt: Plan: Suicide attempt -with clonazepam and lurasidone Patient's mental status significantly better, will await psychiatry (4) Overdose: Plan: Suicide attempt -with clonazepam and lurasidone Patient's mental status significantly better, will await psychiatry (5) Seizure disorder: Plan: seizure precautions. Meds resumed Documented By: Scott Monterroso MD 09/25/23 1143 Signed By: <Electronically signed by Scott Monterroso MD> 09/25/23 0031 [facility] Work Phone: 1(187) 785-289705-10-2024 Progress note Author Mary Calhoun [facility] September 25, 2023 10:06am Note Date/Time September 25, 2023 10:02 am [facility] [address] [place] [address] Hospitalist Progress Note Signed Patient: Jaye Coles MR#: [id number] : 1980 Acct:[id number] Age/Sex: 42 / M Adm Date: 4 Loc: Room: [address] [place] [address] Type: ADM IN Attending Dr: Mary Calhoun MD Copies to: ~ Date of Service: 09/25/2023 Subjective Subjective Narrative: Patient has been seen and examined, today he appears to be more awake, able to respond, ate breakfast without any significant complaints. Denies any abdominalpain no nausea no vomiting, he does have some cough, remains on 2 L nasal cannula, saturating 95%, still remains slightly tachycardic, feels quite weak Physical exam: General -awake and oriented x 3 Cardiovascular -S1 with S2, no murmurs, no rubs, no gallops, tachycardia noted Pulmonary - clear to auscultation bilaterally Gastrointestinal - abdomen is soft, no signs of acute abdomen Extremities -no edema Neurological -no focal neurological dysfunction noted, able to move all extremities Exam Physical Exam Vital Signs: Temp Pulse Resp BP Pulse Ox O2 Del Method O2 Flow Rate 36.7 C 111 H 24 136/83 95 Room Air 2 09/25/23 00:00 09/25/23 09:07 09/25/23 09:07 09/25/23 09:07 09/25/23 09:07 09/25/23 09:07 09/25/23 06:00 Objective Lab Results 09/23/23 18:20 09/25/23 04:57 Meds Allergies and Active Meds Allergies levetiracetam Allergy (Mild, Verified 01/01/23 14:55) Unknown Reaction desvenlafaxine [From Pristiq] Allergy (Verified 01/01/23 14:55) Seizure Active Meds: Active Medications Generic Name Dose Route Start Last Admin Trade Name Freq PRN Reason Stop Dose Admin Acetaminophen 1,000 mg 09/23/23 23:45 Acetaminophen 500 Mg Tablet PO 09/22/24 23:44 Q6HR PRN Pain Scale 1 - 3 or fever Heparin Sodium (Porcine) 5,000 unit 09/24/23 06:00 09/25/23 06:52 Heparin 5,000 Unit/Ml Vial SUBCUT 09/23/24 05:59 5,000 unit Q8HR RUPERTO Administration Prochlorperazine Edisylate 10 mg 09/23/23 23:54 Prochlorperazine Edisylate 10 Mg/2 Ml Vial IV-PUSH 09/22/24 23:53 Q4H PRN Nausea And Vomiting Sodium Chloride 0 ml 09/24/23 06:00 09/25/23 06:52 Sodium Chloride 0.9 % 10 Ml Syringe IV-PUSH 09/23/24 05:59 10 ml QSHIFT RUPERTO Administration A&P - Hospitalist Assessment/Plan (1) Suicide attempt: (2) Overdose: (3) Seizure disorder: Plan Suicide attempt -with clonazepam and lurasidone Patient's mental status significantly better, will consult psychiatry Acute metabolic encephalopathy due to overdose, mental status significantly improved Seizure disorder- seizure precautions, status post [facility] August [facility]23, we will restart his seizure medications Bipolar disorder DVT PPx-SCDs, Heparin CODE STATUS-full code Documented By: Mary Calhoun MD 09/25/23 1001 Signed By: <Electronically signed by Mary Calhoun MD> 09/25/23 1006 [facility] Work Phone: 1([phone]) 556-457405-09-2024 Progress note Author Mary Calhoun [facility] September 24, 2023 12:23pm Note Date/Time September 24, 2023 12:23p m [facility] [address] [place] [address] Hospitalist Progress Note Signed Patient: Jaye Coles MR#: [id number] : 1980 Acct:[id number] Age/Sex: 42 / M Adm Date: 4 Loc: Room: [address] [place] [address] Type: ADM IN Attending Dr: Mary Calhoun MD Copies to: ~ Date of Service: 09/24/2023 Subjective Subjective Narrative: Patient has been seen and examined, appears to be quite lethargic, but intermittently he is agitated when aroused, in restraints Physical exam: General -quite lethargic, arousable to painful stimuli, not following commands, does not appear to be in respiratory distress, does not appear to be painful Cardiovascular -S1 with S2, no murmurs, no rubs, no gallops, tachycardia noted Pulmonary - clear to auscultation bilaterally Gastrointestinal - abdomen is soft, no signs of acute abdomen Extremities -no edema Neurological -no focal neurological dysfunction noted, able to move all extremities Exam Physical Exam Vital Signs: Temp Pulse Resp BP Pulse Ox O2 Del Method O2 Flow Rate 37.6 C H 118 H 18 107/71 97 Nasal Cannula 2 09/24/23 10:00 09/24/23 11:00 09/24/23 11:00 09/24/23 11:00 09/24/23 11:00 09/24/23 12:00 09/24/23 12:00 Objective Lab Results 09/23/23 18:20 05/09/24 04:18 ABG Interpretation ABG results: 09/24/23 04:27 VBG pH 7.40 VBG pCO2 37.0 L VBG pO2 58.7 H VBG HCO3 22.5 L VBG Total CO2 23.6 L VBG O2 Saturation 92.4 H* VBG Base Excess -1.8 Meds Allergies and Active Meds Allergies levetiracetam Allergy (Mild, Verified 01/01/23 14:55) Unknown Reaction desvenlafaxine [From Pristiq] Allergy (Verified 01/01/23 14:55) Seizure Active Meds: Active Medications Generic Name Dose Route Start Last Admin Trade Name Freq PRN Reason Stop Dose Admin Acetaminophen 1,000 mg 09/23/23 23:45 Acetaminophen 500 Mg Tablet PO 09/22/24 23:44 Q6HR PRN Pain Scale 1 - 3 or fever Heparin Sodium (Porcine) 5,000 unit 09/24/23 06:00 09/24/23 05:35 Heparin 5,000 Unit/Ml Vial SUBCUT 09/23/24 05:59 5,000 unit Q8HR RUPERTO Administration Lactated Ringer's 1,000 mls @ 75 mls/hr 09/23/23 23:45 09/24/23 10:13 Lactated Ringers IV 09/25/23 02:24 150 mls/hr .[id number] RUPERTO Administration Prochlorperazine Edisylate 10 mg 09/23/23 23:54 Prochlorperazine Edisylate 10 Mg/2 Ml Vial IV-PUSH 09/22/24 23:53 Q4H PRN Nausea And Vomiting Sodium Chloride 0 ml 09/24/23 06:00 09/24/23 05:35 Sodium Chloride 0.9 % 10 Ml Syringe IV-PUSH 09/23/24 05:59 20 ml QSHIFT RUPERTO Administration A&P - Hospitalist Assessment/Plan (1) Suicide attempt: (2) Overdose: (3) Seizure disorder: Plan Suicide attempt Overdose- unknown what the patient took, family found empty clonazepam and lurasidone bottles next to him - EKG in am, monitor QTc - Suicide precautions - IV hydration, LR @ 75cc/hr x 2L - Consulted pulm for critical care - Monitor neuro status - Consulted psychiatric services when medically cleared Seizure disorder- seizure precautions Bipolar disorder DVT PPx-SCDs, Heparin Diet order-n.p.o., advance as tolerated when patient awakens to regular diet CODE STATUS-full code Documented By: Mary Calhoun MD 09/24/231221 Signed By: <Electronically signed by Mary Calhoun MD> 09/24/23 1223 [facility] Work Phone: 1([phone]) 958-197505-09-2024 Progress note Author Reginald Tang [facility] September 24, 2023 9:15am Note Date/Time September 24, 2023 9:15am [facility] [address] [place] [address] Progress Note Signed Patient: Jaye Coles MR#: [id number] : 1980 Acct:[id number] Age/Sex: 42 / M Adm Date: 4 Loc: Room: [address] [place] [address] Type: ADM IN Attending Dr: Mary Calhoun MD Copies to: ~ Date of Service: 09/24/2023 Progress Narrative Note PROGRESS NOTE Progress Note: Chart was reviewed with patient noted to have overdose of amoxicillin, clonazepam, and Latuda. Patient is hemodynamically stable and on room air with QT interval previously prolonged having normalized. Patient is pink slipped andreported plan is for psychiatry evaluation. I have nothing to offer from a pulmonary/critical care medicine perspective. We will be available if needed but will not formally round on the patient. Documented By: Reginald Tang MD 08 2414 Signed By: <Electronically signed by MD Reginald Tang> 09/24/23 0915 [facility] Work Phone: 1([phone]) 434-432805-02-2024 Telephone encounter Note* Telephone Encounter - Geovanna Milian RN - 09/17/2023 12:14 PM EDT Spoke with Jaye reviewed the recommendations recommended to clean the scissors with hot soap/water and rinse/dry with alcholol before cutting the exposes suture and watch for infection he agrees with plan Geovanna Milian RN [facility]05-02-2024 Miscellaneous Notes* Telephone Encounter - Geovanna Milian RN - 09/17/2023 12:14 PM EDT Spoke with Jaye reviewed the recommendations recommended to clean the scissors with hot soap/water and rinse/dry with alcholol before cutting the exposes suture and watch for infection he agrees with andi Milian RN * Telephone Encounter - Aida Ervin PA-C - 09/17/2023 12:05 PM EDT Pictures reviewed. Patient can cut the suture at the base to make it shorter but careful to not cutthe skin. No cause for concern-patient should let office know if he experiences any redness, swelling, drainage from incision or fever * Telephone Encounter - Geovanna Milian RN - 09/17/2023 10:43 AM EDT - You have absorbable sutures in place. These do not need to be removed. Steristrips were applied to the incision and will peel off by itself as the incision heals. ========= 08/31/2023 VNS placed ========= routed for review Geovanna Milian RN [facility] Telephone encounter Note * Telephone Encounter - Aida Ervin PA-C - 09/17/2023 12:05 PM EDT Pictures reviewed. Patient can cut the suture at the base to make it shorter but careful to not cutthe skin. No cause for concern-patient should let office know if he experiences any redness, swelling, drainage from incision or fever [facility] Work Phone: 1(201) 440-919605-02-2024 Telephone encounter Note* Telephone Encounter - Geovanna Milian RN - 09/17/2023 10:57 AM EDT pictures received in [employer] now being addressed in [employer]. Geovanna Milian RN [facility]05-02-2024 Miscellaneous Notes* Telephone Encounter - Geovanna Milian RN - 09/17/2023 10:57 AM EDT pictures received in [employer] now being addressed in [employer] Geovanna Milian RN * Telephone Encounter - Geovanna Milian RN - 09/17/2023 8:52 AM EDT Spoke with Mr. Coles reviewed to upload picture to [employer] he is not familiar with sending messages plan was for me to send message and he reply with picture if unable then to call the office back. back up plan is to FU with PCP or use of urgent care Geovanna Milian RN * Telephone Encounter - Aida Ervin PA-C - 09/17/2023 8:36 AM EDT Christina Goetz send a picture via [employer] * Telephone Encounter - Viviane Bustamante - 09/17/2023 8:30 AM EDT General call : Full name of person calling: Jaye Coles Relationship to patient: Self Phone # : [phone] Reason for call: Patient state he has a stitch that is sticking out of his neck that shouldn't be. Patient of Dr. Awad [facility] Telephone encounter Note * Telephone Encounter - Geovanna Milian RN - 09/17/2023 10:43 AM EDT - You have absorbable sutures in place. These do not need to be removed. Steristrips were applied to the incision and will peel off by itself as the incision heals. ========= 08/31/2023 VNS placed ========= routed for review Geovanna Milian RN [facility]05-02-2024 Telephone encounter Note* Telephone Encounter - Geovanna Milian RN - 09/17/2023 8:52 AM EDT Spoke with Mr. Coles reviewed to upload picture to [employer] he is not familiar with sending messages plan was for me to send message and he reply with picture if unable then to call the office back. back up plan is to FU with PCP or use of urgent care Geovanna Milian RN [facility]05-02-2024 Telephone encounter Note* Telephone Encounter - Aida Ervin PA-C - 09/17/2023 8:36 AM EDT Christina Goetz send a picture via [employer] [facility] Work Phone: 1(589) 266-852605-02-2024 Telephone encounter Note* Telephone Encounter - Viviane Bustamante - 09/17/2023 8:30 AM EDT General call : Full name of person calling: Jaye Coles Relationship to patient: Self Phone # : [phone] Reason for call: Patient state he has a stitch that is sticking out of his neck that shouldn't be. Patient of Dr. Awad [facility]04-15-2024 NoteHNO ID: [id number] Author: GHULAM HERMAN MD Service: Neurosurgery Author Type: Resident Type: Progress Notes Filed: 08/31/2023 10:32 Note Text: Neurosurgery Postop Note Patient: Jaye Coles Interval HPI Postop check Objective Vitals 08/31/23 0614 08/31/23 1010 08/31/23 1015 08/31/23 1030 BP: 126/90 128/75 125/74 123/75 Pulse: 78 97 91 82 Resp: 18 12 13 7 Temp: 36.7 ?C (98.1 ?F) 36.3 ?C (97.3 ?F) TempSrc: Temporal Artery SpO2: 97% 95% 96% 96% Exam Waking up from anesthesia EOV BUE arms raises AG to command BLE wiggles toes to command Incisions clean, dry, and intact Assessment/Plan 42 ambidextrous (originally right-handed) M w/ PMH HLD, ADHD, anxiety, depression, bipolar II, MRE s/p L VNS ( in [place]) and multiple replacements (last 09/2020, Dr. Awad) who p/w low battery life and discomfort when turning head due to electrode positioning, now s/p: 08/30: Replacement of left VNS generator and revision of distal positioning of lead -Neurologically stable -No imaging/labs in PACU -Same day surgery Staff: Dr. Adair Herman MD PGY-1, Neurological Surgery Pager: [phone] 10:32 AM 08/31/23 Please page [phone] after 6pm, on weekends, or if unable to reach the above [facility]04-15-2024 NoteHNO ID: [id number] Author: DEION JIMENEZ, DO Service: ? Author Type: Resident Type: Anesthesia Procedure Notes Filed: 08/31/2023 07:58 Note Text: ANESTHESIOLOGY PROCEDURE NOTE Airway General Information Procedure Start Time/Medication Administration: 08/31/2023 7:43 AM Procedure End Time: 08/31/2023 7:57 AM Patient location during procedure: OR Timeout Performed Pre-procedure: timeout performed Consent Obtained: Yes Patient identity confirmed: arm band and patient Staffing Anesthesiologist: Juliette Brantley MD Resident: Deion Jimenez DO Indications and Patient Condition Indications for airway management: anesthesia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 unexpected leaveof absence from work. Pt was receptive to exploring cope ahead strategies in this context and was provided with validation and support for the ways he has already coped ahead; Pt indicated that he can reach out to the new social work therapist within [facility] he recently became established with to see if there is availability to be seen more regularly than once monthly. Pt noted that a helpful phrase he reminds himself of is every day is a gift, no one is guaranteed tomorrow. Pt's self-care goal is: taking a nap. Patient Affirms Safety. Patient reaffirmed Safety Plan and can stay safe from harm. PLAN: Continue IOP and current treatment plan. Pt confirmed attendance in IOP tomorrow 06/24/23, willdischarge from the program at this time. Co-facilitated between: TESSY Acuña & TESSY Tomlinson documented in this encounterMercy Health St. [facility]24 NoteHNO ID: [id number] Author: JAZMIN SKELTON LPCC Service: Behavioral Health IOP (Intensive Outpatient Program) Author Type: Counselor Type: Progress Notes Filed: 06/22/2023 13:12 Note Text: Summary: DBT IOP *This service is provided virtually via [employer]. IOP (INTENSIVE OUTPATIENT PROGRAM) PROGRESS NOTE SERVICE [...] he walked out of his job at [employer] on Thursday, stating that he was frustrated [...] creating a plan to go to the [facility] if needed. He also continues to plan to attend in person IOP at [facility], and is hoping to get in later [...] questions as well. P (more content not included)...[facility]02-05-2024 History of Present illness Narrative* Jazmin Skelton, [facility] - 06/22/2023 9:00 AM EST Summary: DBT IOP *This service is provided virtually via [employer]. IOP (INTENSIVE OUTPATIENT PROGRAM) PROGRESS NOTE SERVICE [...] he walked out of his job at [employer] on Thursday, stating that he was frustrated [...] rest of the weekend, and reflected upon areduction in SI. He reported seeing his therapist on and creating a plan to go to the [facility] if needed. He also continues to plan to attend in person IOP at [facility], and is hoping to get in later this week. Patient Affirms Safety. Pt's diary card that was completed throughout the weekend indicated: increased emotions of depression, anxiety, anger on Thursday with no cindy. He rated SI at 2 on Thursday/Thursday with a reduction to SI at a 1 yesterday. Pt denied self- harm, affirmed compliance with medications and obtained 6-8 [...] participative. Pt was an active participant throughout thepsychoeducational dialogue on mindfulness skills, sharing thoughts and [...] the context of program information. Assessed safety priorto patients leaving for day. RESPONSE: Appears attentive, engaged and participative throughout discussion on wisemind, with participating in the group example. He asked questions as well. Pt left group early due to another appointment and left at approximately 11:30am. Pt's self-care goal is: attend appt. Patient Affirms Safety. Patient reaffirmed Safety Plan and can stay safe from harm. PLAN: Continue IOP and current treatment plan. Pt confirmed attendance in IOP tomorrow. Facilitated by: MAGAN Acuña-S documented in this encounterMercy Health St. [facility]02-01-[facility]24 NoteHNO ID: [id number] Author: CHANDRA QUIROZ, Therapist Service: Behavioral Health IOP (Intensive Outpatient Program) Author Type: Therapist Type: Progress Notes Filed: 06/18/2023 12:37 Note Text: Summary: DBT IOP *This service is provided virtually via [employer]. IOP (INTENSIVE OUTPATIENT PROGRAM) PROGRESS NOTE SERVICE [...] IOP Thursday 06/22. Co-facilitated between: Jazmin Skelton [facility] AND Chandra Quiroz [facility]02-01-2024 History of Present illness Narrative* Chandra Quiroz, Therapist - 06/18/2023 9:00 AM ESTSummary: DBT IOP *This service is provided virtually via [employer]. IOP (INTENSIVE OUTPATIENT PROGRAM) PROGRESS NOTE SERVICE [...] rumination; SI/SIB - 2, but affirms safety; skills- none reported; medication compliance - yes; substance [...] IOP Thursday 06/22. Co-facilitated between: Jazmin Skelton [facility] & JEYSON Kim documented in this encounterMercy Health St. [facility]01-31-2024 NoteHNO ID: [id number] Author: AFUA RAE [facility] Service: Behavioral Health IOP (Intensive Outpatient Program) Author Type: Therapist Type: Progress Notes Filed: 06/17/2023 13:33 Note Text: Summary: DBT IOP virtual group *This service is provided virtually via [employer]. IOP (INTENSIVE OUTPATIENT PROGRAM) PROGRESS NOTE SERVICE DATE: 1/31/24 SERVICE TIME: 9AM-noon BEHAVIOR: Appearance: Casually dressed [...] [facility] however acknowledged that there is the option of him to go to [facility] if needed which is 30 minutes away. Pt reported that last week the SI thoughts were the worst as he was thinking about taking 2,000mg of Seroquel that he had in his safe in his home. Pt stated that his brother and thnauv-wj-chv have been checking in on him and his qcmknt-iy-ach came over last week to remove the Seroquel from his safe so he no longer has access to these means. Pt indicated that he has 3 Ativan in his safe to use PRN as needed within current prescription, as well as ibuprofen and benadryl. Pt reported that his dflfps-vc-nby is now monitoring his hero device used [...] IOP, exploring in-person group therapy options at [facility], and maintaining appointments with individual therapist (tomorrow). Pt was strongly encouraged to be open with individual therapist about these changes in suicidal ideation so providers can be on the same page with supporting Pt's treatment; Pt receptive. Patient Data Generalized Anxiety Disorder Scale (REENA-7) REENA - 7 SCORES 05/08/2023 05/20/2023 06/17/2023 REENA-7 Scor (more content not included)...[facility]01-31-2024 NoteHNO ID: [id number] Author: AFUA RAE LPCC Service: Behavioral Health IOP (Intensive [...] [facility] however acknowledged that there is the option of him to go to [facility] if needed which is 30 minutes away. Pt reported that last week the SI thoughts were the worst as he was thinking about taking 2,000mg of Seroquel that he had in his safe in his home. Pt stated that his brother and wtlvzj-km-qrw have been checking in on him and his enfzqx-hy-xco came over last week to remove the Seroquel from his safe so he no longer has access to these means. Pt indicated that he has 3 Ativan in his safe to use PRN as needed within current prescription, as well as ibuprofen and benadryl. Pt reported that his lwpctx-nk-ktr is now monitoring his hero device used [...] as evidenced by planning on continuing in [facility], exploring in-person group therapy options at [facility], and maintaining appointments with individual therapist [...] with crisis hotline/support numbers, is enrolled in [facility] four days a week for three hours per day, and is assigned [facility] daily questionnaire to assess risk. Self-Injury risk: [...] Anxiety Disorder Scale (REENA (more content not included)...[facility]01-31-[facility] History of Present illness Narrative* Afua Rae, [facility] - 06/17/2023 9:00 AM ESTSummary: DBT IOP virtual group *This service is provided virtually via [employer]. IOP (INTENSIVE OUTPATIENT PROGRAM) PROGRESS NOTE SERVICE [...] to spending a lot of time on thephone unexpectedly, including a call regarding his grandfather [...] active SI every night for the last 2weeks that has lasted between 30 minutes and 2 hours. Pt reported calling a local or national crisis hotline number 8 of these 14 nights. Pt stated that the outcome of these calls have not resulted in additional support/sending someone to his home because he has not felt like he needed that; Pt additionally [facility] however acknowledged that there is the option of him to go to [facility] if needed which is 30 minutes away. Pt reported that last week the SI thoughts were the worst as he was thinking about taking 2,000mg of Seroquel that he had in his safe in his home. Pt stated that his brother and mhhnsr-vd-zad have been checking in on him and his qweldc-ls-abj came over last week to remove the Seroquel from his safe so he no longer has access to these means. Pt indicated that he has 3 Ativan in his safe to use PRN asneeded within current prescription, as well as ibuprofen and benadryl. Pt reported that his sister-in- law is now monitoring his hero device used [...] noting that he will reach out to h is psychiatrist via MyChart and phone call if this changes. Pt is future- oriented as evidenced by planning on continuing in DBT IOP, exploring in-person group therapy options at [facility], and maintaining appointments with individual therapist (tomorrow). Pt was strongly encouraged to be open with individual therapist about these changes in suicidal ideation so providers can be on the same page with supporting Pt's treatment; Pt receptive. Patient Data Generalized Anxiety Disorder Scale (REENA-7) REENA - 7 SCORES 05/08/2023 05/20/2023 06/17/2023 REENA-7 Score 8 12 19 (0-4) minimal anxiety, (5-9) mild anxiety, (10-14) moderate anxiety, (15-21) severe anxiety IOP Daily Questionnaire IOP Daily 05/30/2023 06/15/2023 [...] rate your mood now? 3 5 4 Mindful Attention Awareness Scale (SARAH) Mindful Attention Awareness Scale (SARAH) 05/20/2023 06/03/2023 06/17/2023 Mindful Attention Awareness Scale Score 54 Incomplete 42 Mindful Attention Awareness Scale Mean Score 3.6 Incomplete 2.8 Patient Health Questionnaire (PHQ-9) PHQ-9 06/03/2023 06/03/2023 06/17/2023 Score 14 14 18 (0-4) minimal depression, (5-9) mild depression, (10-14) moderate depression, (15-19) moderately severe depression, (20-27) severe depression SAFE-T Protocol with C-SSRS - Recent Step 1: Identify Risk Factors C-SSRS Suicidal Ideation Severity Month Wish to be Have you wished you were or wished you could go to sleep and not wake up? Yes Current suicidal thoughts Have you actually had any thoughts of killing yourself? Yes Suicidal thoughts w/ Method (w/no specific Plan or Intent or act) Have you been thinking about how you might do this? Yes Suicidal Intent without Specific Plan Have you had these thoughts and had some intention of acting on them? Yes Intent with Plan Have you started to work out or worked out the details of how to kill yourself? Do you intend to carry out this plan? No C-SSRS Suicidal Behavior: Have you ever done anything, started to do anything, or prepared to do anything to end your life? Examples: Collected pills, obtained a gun, gave away valuables, wrote a will or suicide note, took out pills but didn t swallow any, held a gun but changed your mind or it was grabbed from your hand,went to the roof but didn t jump; or actually took pills, tried to shoot yourself, cut yourself, tried to hang yourself, etc. If YES Was it within the past 3 months? Lifetime Yes Past 3 Months Yes Current and Past Psychiatric Dx: Mood Disorder, PTSD, ADHD, TBI, and Conduct problems (antisocial behavior, aggression, impulsivity) Presenting Symptoms: Anhedonia, Impulsivity, Hopelessness or despair, and Anxiety and/or panic Family History: Pt denied Precipitants/Stressors: Triggering events leading to humiliation, shame, and/or despair (e.g. Loss of relationship, financial or health status) (real or anticipated), Chronic physical pain or other acute medical problem (e.g. DIET COUNSELOR disorders) , and Inadequate social supports Change in treatment: Pt seeking in-person support Access to lethal methods: Asked SPECIFICALLY about presence or absence of a firearm in the home or ease of accessing and Pt denied Step 2: Identify Protective Factors (Protective factors may not counteract significant acute suicide risk factors) Internal: Identifies reasons for living External: Cultural, spiritual and/or moral attitudes against suicide, Supportive social network of family or friends, Positive therapeutic relationships, and Engaged in work or school Step 3: Specific questioning about Thoughts, Plans, and Suicidal Intent - (see Step 1 for Ideation Severity and Behavior) If semi-structured interview is preferred to complete this section, clinicians may opt to complete C-SSRS Lifetime/Recent for comprehensive behavior/lethality assessment. C-SSRS Suicidal Ideation Intensity (with respect to the most severe ideation 1-5 identified above) Month Frequency How many times have you had these thoughts? (1) Less than once a week (2) Once a week (3) 2-5 times in week (4) Daily or almost daily (5) Many times each day Daily or almost daily (4) Duration When you have the thoughts how long do they last? (1) Fleeting - few seconds or minutes (2) Less than 1 hour/some of the time (3) 1-4 hours/a lot of time (4) 4-8 hours/most of day (5) More than 8 hours/persistent or continuous 1-4 hours/alot of the time (3) Controllability Could/can you stop thinking about killing yourself or wanting to if you want to? (1) Easily able to control thoughts (2) Can control thoughts with little difficulty (3) Can control thoughts with some difficulty (4) Can control thoughts with a lot of difficulty (5) Unable to control thoughts (0) Does not attempt to control thoughts Can control thoughts with some difficulty (3) Deterrents Are there things - anyone or anything (e.g., family, judaism, pain of ) - that stopped you from wanting to or acting on thoughts of suicide? (1) Deterrents definitely stopped you from attempting suicide (2) Deterrents probably stopped you (3) Uncertain that deterrents stopped you (4) Deterrents most likely did not stop you (5) Deterrents definitely did not stop you (0) Does not apply Uncertain that deterrents stopped you (3) Reasons for Ideation What sort of reasons did you have for thinking about wanting to or killing yourself? Was it to end the pain or stop the way you were feeling (in other words you couldn t go on living with this pain or how you were feeling) or was it to get attention, revenge or a reaction from others? Or both? (1) Completely to get attention, revenge or a reaction from others (2) Mostly to get attention, revenge or a reaction from others living with the pain or how you werefeeling) (3) Equally to get attention, revenge or a reaction from others (4) Mostly to end or stop the pain (you couldn t go on (5) Completely to end or stop the pain (you couldn t go on and to end/stop the pain living with thepain or how you were feeling) (0) Does not apply Mostly to end or stop the pain (you couldn't go on living with the pain or how you were feeling) (4) Total Score 17 Step 4: Guidelines to Determine Level of Risk and Develop Interventions to LOWER Risk Level The estimation of suicide risk, at the culmination of the suicide assessment, is the quintessentialclinical judgment, since no study has identified one specific risk factor or set of risk factors asspecifically predictive of suicide or other suicidal behavior. From [employer] [place] [employer] Practice Guidelines for the Assessment and Treatment of Patients with Suicidal Behaviors, page 24. RISK STRATIFICATION TRIAGE High Suicide Risk Suicidal behavior within past 3 months (C-SSRS Suicidal Behavior) - Pt reported that he has had active SI every night for the last 2 weeks that has lasted between 30 minutes and 2 hours. Pt reported calling a local or national crisis hotline number 8 of these 14 nights. Pt reported that last weekthe SI thoughts were the worst as he was thinking about taking 2,000mg of Seroquel that he had in his safe in his home. Pt stated that his brother and zfybvv-av-ahw have been checking in on him and his yjcvaq-gi-wip came over last week to remove the Seroquel from his safe so he no longer has accessto these means. Pt indicated that he has 3 Ativan in his safe to use PRN as needed within current prescription, as well as ibuprofen and benadryl. Pt reported that his phsuew-od-ofb is now monitoring his hero device used for dispensing of medications and she gets alerts when he receives a dose of medication from there hero device to her iphone. Pt denied having any specific planning thoughts since last week with the Seroquel. Thorough assessment of suicide risk/factors, assess need for higher level of care, LIP notified, reviewed safety plan with program staff with affirmation of patient's awareness of safety plan, provide resources for outpatient care if not already established with providers, provided with crisis hotline/support numbers, enrolled in [facility] four days a week for three hours per day, assigned IOP daily questionnaire to assess risk. Moderate Suicide Risk Low Suicide Risk Step 5: Documentation Risk Level : High Suicide Risk Clinical Note: Your Clinical Observation, Relevant Mental Status Information, Methods of Suicide Risk Evaluation, Provision of Crisis Line [phone]), and Implementation of Safety Plan (If Applicable) Process Therapy Start Time: 10:00 am Total Time: 50 minutes # of Patients: 9 THERAPEUTIC FOCUS: Crisis Survival Skills: STOP and TIP PROBLEM(S) ADDRESSED: -Mental health issues INTERVENTIONS: Mindfulness practice implemented and processed. Discussion and education around crisis survival skills. Collaboratively explored these concepts as a group with general examples and in connection to members' individualized experiences. RESPONSE: Appears attentive, engaged and participative. Pt was an active participant throughout thepsychoeducational dialogue on crisis survival skills, sharing thoughts and personal experiences frequently. In exploring the TIPP skill, Pt identified that taking a warm shower is more helpful for him than using cool water. Process Therapy Start Time: 11:00 am Total [...] Appears attentive, engaged and participative. Pt continued asking questions to clarify when to use distress tolerance skills versus crisis skills versus emotion regulation skills, appeared to have difficulty with discerning these differences as he inquired many times about opposite action, problem- solving, STOP, and TIPP. Pt observed using 'you statements' when sharing requiring guidance from therapists to share using 'I statements' from his personal experiences, which he was receptive to. Pt acknowledged that when he experiences emotional distress and rage , he is unable to recallor remember skills that could be helpful for him to use in the moment, noting that cooling down ishard to do . Pt was receptive to exploring skills he would be willing to use/try to use in the future to reduce heightened emotional distress and identified paced breathing and ride the wave as skills that would be beneficial. Pt was also encouraged to utilize imagery with ride the wave as he oftenuses metaphors to describe his emotions and experiences; Pt receptive. Pt's self-care goal is: complete paperwork and take a nap. Patient Affirms Safety. Patient reaffirmed Safety Plan and can stay safe from harm. PLAN: Continue IOP and current treatment plan. Pt confirmed attendance in IOP tomorrow 06/18/23. Co-facilitated between: MAGAN Acuña-S & TESSY Tomlinson documented in this encounterMercy Health St. [facility]01-31-2024 Miscellaneous Notes* Plan of Care - Afua Rae, [facility] - 06/17/2023 9:00 AM ESTSummary: DBT IOP Weekly Summary Images from the original note [...] concern about possibly being sent to a [facility], however acknowledged that there is the option of him to go to [facility] if needed which is 30 minutes away. Pt reported that last week the SI thoughts were the worst as he was thinking about taking 2,000mg of Seroquel that he had in his safe in his home. Pt stated that his brother and oinvsb-vy-kjk have been checking in on him and his gohvqh-sd-cvz came over last week to remove the Seroquel from his safe so he no longer has access to these means. Pt indicated that he has 3 Ativan in his safe to use PRN as needed within current prescription, as well as ibuprofen and benadryl. Pt reported that his rrjxde-of-vww is now monitoring his hero device used [...] IOP, exploring in-person group therapy options at [facility], and maintaining appointments with individual therapist [...] safety plan, has been provided resources for outpatientcare if not already established with providers, has been provided with crisis hotline/support numbers, is enrolled in [facility] four days a week for three hours per day, and is assigned [facility] daily questionnaire to assess risk. Self-Injury risk: [...] the following: dialectical thinking, opposite action vs problem-solving,crisis STOP and TIPP skills, mindfulness to relationships. Pt reports an increase in depression, anxiety, and ongoing heightened emotions, with urges to lash out of anger, bottle emotions, and ruminate; of note, Pt's 2- week measures reflect an increase in depression and [...] to be prioritizing the needs of others (grandf ather, coworker) more this week, with limited awareness [...] - 7 SCORES 05/08/2023 05/20/2023 06/17/2023 REENA-7 Score 8 12 19 (0-4) minimal anxiety, (5-9) mild anxiety, (10-14) moderate anxiety, (15-21) severe anxiety Mindful Attention Awareness Scale (SARAH) Mindful Attention Awareness Scale (SARAH) 05/20/2023 06/03/2023 06/17/2023 Mindful Attention Awareness Scale Score 54 Incomplete 42 Mindful Attention Awareness Scale Mean Score 3.6 Incomplete 2.8 Patient Health Questionnaire (PHQ-9) PHQ-9 06/03/2023 06/03/2023 06/17/2023 Score 14 14 18 (0-4) minimal depression, (5-9) mild depression, (10-14) moderate depression, (15-19) moderately severe depression, (20-27) severe depression Pt will continue in IOP and follow Master Treatment Plan, with discharge scheduled 06/24/23 contingent on Pt's adherence to daily attendance expectations during the remainder of his time enrolled in the program. Pt is exploring in- person group therapy/IOP options at this time and may discharge earlier than scheduled to transition to this treatment option. Pt is established with outpatient providers: prescriber: Michael Cordoab APRN-ENZO ([facility]) and therapist: ALVIN Perez (at [facility] in [place]). Pt is also now established with social work therapist ALVIN Lopez. Team members present: MAGAN Tomlinson-S MAGAN Acuña-S Mya Tena, GALILEO, [employer], SUPERVISOR [employer], PMHNP- JEYSON Kim documented in this encounterMercy Health St. [facility]01-30-2024 NoteHNO ID: [id number] Author: AFUA RAE LPCC Service: Behavioral Health IOP (Intensive Outpatient Program) Author Type: Therapist Type: Progress Notes Filed: 06/16/2023 12:31 Note Text: Summary: DBT IOP virtual group *This service is provided virtually via [employer]. IOP (INTENSIVE OUTPATIENT PROGRAM) PROGRESS NOTE SERVICE [...] he is waiting to hear back from [facility] regarding in-person group therapy/IOP/PHP options and to get scheduled for an intake, noting that his individual therapist is providing clinical information to [facility] as part of Pt?s intake process. [...] prior to patients wes (more content not included)...[facility]01-30-2024 History of Present illness Narrative* Afua Rae, [facility] - 06/16/2023 9:00 AM ESTSumjosefy: DBT IOP virtual group *This service is provided virtually via [employer]. IOP (INTENSIVE OUTPATIENT PROGRAM) PROGRESS NOTE SERVICE [...] DBT skills practiced, mood symptoms, urge behaviors, self- injury / suicidal /violence behaviors that necessitate need for continued IOP [...] contentment 1, cindy 1; urges (0=none, 5 =extreme) - anger outburst 1, bottling emotions 1 (not acted on either); SI/SIB - denied; skills - none listed initially, reported use of distraction when verbally checking in; Pt also encouraged by therapist to give himself credit for using willingness; medication compliance - yes; substance use - denied; sleep - 6 hours. Pt s check-in centered on reading more on the emotion anger, just better control methods. Pt reflected on the benefits of reading and writing to regulate anger, as this is something he currently doesand finds this to be effective. Pt explored options of integrating mindful breathing and mindful meditation to further regulate anger. Pt was receptive to the dialectic highlighted by therapist of I can feel angry and I can manage it and not act aggressively . Pt shared that he is waiting to hear back from [facility] regarding in-person group therapy/IOP/PHP options and to get scheduled for an intake, noting that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 TIME: 9:59 [facility]01-04-2024 NoteHNO ID: [id number] Author: AFUA RAE LPCC Service: Behavioral Health IOP (Intensive Outpatient Program) Author Type: Therapist Type: Progress Notes Filed: 05/21/2023 12:59 Note Text: Summary: DBT IOP virtual group *This service is provided virtually via [employer]. IOP (INTENSIVE OUTPATIENT PROGRAM) PROGRESS NOTE SERVICE [...] will care for my body by: attend [facility] (more content not included)...[facility]01-04-2024 History of Present illness Narrative* Afua Rae, [facility] - 05/21/2023 9:00 AM Kun: DBT IOP virtual group *This service is provided virtually via [employer]. IOP (INTENSIVE OUTPATIENT PROGRAM) PROGRESS NOTE SERVICE [...] DBT skills practiced, mood symptoms, urge behaviors, self- injury / suicidal /violence behaviors that necessitate need for continued IOP [...] that this week has had multiple medical appointments,sharing that he is feeling exhausted. Pt shared [...] implemented and processed. Focus on important relationships andidentification of factors that reduce interpersonal effectiveness and discussion about increasing interpersonal skills using the KOMAL. Application to patient's individualized treatment goals. RESPONSE: Appears attentive, engaged and participative. Pt was an active participant throughout thepsychoeducational dialogue on KOMAL, offering to read and [...] DBT IOP at this time versus considering in- person group therapy options, which Pt noted are limited based on where he lives. Pt expressed that he would like to continue inDBT IOP at this time and is aware of the option of discharging earlier than scheduled discharge date to pursue an alternative level of care as well. Co-facilitated between: TESSY Acuña & TESSY Tomlinson documented in this encounterMercy Health St. [facility]01-[facility]24 NoteHNO ID: [id number] Author: Afua Rae LPCC Service: Behavioral Health [...] with outpatient providers: prescriber: Michael Cordoba APRN-ENZO (CC) and therapist: ALVIN Perez (at [facility] in [place]). Pt has future appointment scheduled on 06/05 with social work therapist ALVIN Lopez. Team members present: Afua Rae [facility] Jazmin Skelton, [facility] Mya Tena, MSN, [employer]ED [employer]ER, [employer]OR [employer], [facility] 05-20-2023 NoteHNO ID: [id number] Author: Afua Rae [facility] Service: Behavioral Health IOP (Intensive Outpatient Program) Author Type: Therapist Type: Progress Notes Filed: 05/20/2023 12:46 PM Note Text: Summary: DBT IOP virtual group *This service is provided virtually via [employer]. IOP (INTENSIVE OUTPATIENT PROGRAM) PROGRESS NOTE SERVICE [...] he is going to continue working at [employer] and no longer work at [employer], as this would make the greatest impact [...] to their experiences, with appearing open to director inbound sales offering concrete examples to aid in understanding of sk (more content not included)...[facility] 05-20-2023 History of Present illness Narrative* Afua Rae, [facility] - 05/20/2023 9:00 AM ESTSummary: DBT IOP virtual group *This service is provided virtually via [employer]. IOP (INTENSIVE OUTPATIENT PROGRAM) PROGRESS NOTE SERVICE [...] DBT skills practiced, mood symptoms, urge behaviors, self- injury / suicidal /violence behaviors that necessitate need for continued IOP [...] contentment 1, cindy 1; urges (0=none, 5 =extreme) - lashing out 2, bottling emotions 3 (not acted on any); SI/SIB - denied; skills - none artemio ntified during check-in; medication compliance - yes; substance [...] him and is impacting his sleep, noting thathe did not get to sleep until 3am. Pt reported that he thinks he is going to continue working at [employer] and no longer work at [employer], as this would make the greatest impact [...] to their experiences, with appearing open to director inbound sales offering concrete examples to aid in understanding [...] and participative. Pt continued exploring willingness and turnthe mind by asking questions and relating these questions to personal examples throughout his life.Pt acknowledged how he has accepted and managed the impact of epilepsy on his daily functioning as being examples of using willingness and turn the mind. Pt's self-care goal is: playing a game on compropago. Patient Affirms Safety. Patient reaffirmed Safety Plan and can stay safe from harm. PLAN: Continue IOP and current treatment plan. Pt confirmed attendance in IOP tomorrow 05/21/23. Co-facilitated between: TESSY Acuña & TESSY Tomlinson documented in this encounterMercy Health St. [facility]01-03-2024 Miscellaneous Notes* Plan of Care - Afua Rae LPCC - 05/20/2023 9:00 AM ESTSummary: DBT IOP Weekly Summary Images from the original note [...] provided resources for outpatient care if not alreadyestablished with providers, has been provided with crisis [...] body sensations, OA to sadness and anger, willingness,turn the mind, half smile, and KOMAL. Pt reports mild to moderate urges for bottling emotions and lashing out that he does not act on; Ptstruggles to identify use of skills to regulate emotions and urges however is receptive to guidancefrom therapists highlighting use of skills. Pt has been using opposite action, FAST, accumulating positive emotions and experiences, pros & cons, and mindfulness to emotions. Pt is exploring cait roach changes to his current work schedule with working two separate jobs to have a healthier work/lifebalance, as he is currently working a lot [...] with outpatient providers: prescriber: Michael Cordoba APRN-ENZO (CC) and therapist: ALVIN Perez (at [facility] in [place]). Pt has future appointment scheduled on 06/05 with social work therapist ALVIN Lopez. Team members present: Afua Rae [facility] Jazmin Skelton [facility] Mya Tena, MSN, AMEENA, [employer], PMHNP-BC documented in this encounterMercy Health St. [facility]01-02-2024 NoteHNO ID: [id number] Author: Afua Rae LPCC Service: Behavioral Health IOP (Intensive Outpatient Program) Author Type: Therapist Type: Progress Notes Filed: 05/19/2023 12:43 PM Note Text: Summary: DBT IOP virtual group *This service is provided virtually via [employer]. IOP (INTENSIVE OUTPATIENT PROGRAM) PROGRESS NOTE SERVICE [...] a calmer state. Pt appeared open to director inbound sales pointing out his use of accumulating positive emotions and experiences, mindfulness to emotions and wisemind. Pt denied acting on urges yesterday, sharing that he was busy working all weekend, which prevented him from engaging in urges. Pt inquired about resources for seeking power of energy attorney, and pt was directed to consider seeking out resources through his county's compliance paralegal, through his counselor's office and/or to address at an upcoming social work therapist appt in a few weeks. Patient Affirms [...] understanding of skill appl (more content not included)...[facility]01-02-2024 History of Present illness Narrative* Afua Rae, [facility] - 05/19/2023 9:00 AM ESTSummary: DBT [facility] virtual group *This service is provided virtually via [employer]. IOP (INTENSIVE OUTPATIENT PROGRAM) PROGRESS NOTE SERVICE [...] DBT skills practiced, mood symptoms, urge behaviors, self- injury / suicidal /violence behaviors that necessitate need for continued IOP [...] be helpful ways of coping, sharing that heenjoys/finds benefit from reading poetry and using that to write out his own. He reflected upon doing this as helping him to recognize and process his thoughts and emotions. Pt shared that he does this routine prior to bed, and is aware of going to bed in a calmer state. Pt appeared open to director inbound sales pointing out his use of accumulating positive emotions and experiences, mindfulness to emotionsand wisemind. Pt denied acting on urges yesterday, sharing that he was busy working all weekend, which prevented him from engaging in urges. Pt inquired about resources for seeking power of energy attorney,and pt was directed to consider seeking out resources through his county's compliance paralegal, through his counselor's office and/or to address at an upcoming social work therapist appt in a few weeks. Patient Affirms Safety. Pt's diary card that was completed throughout the weekend indicated: strong to extreme sadness, strong anxiety, moderate to strong anger and shame/guilt, mild to moderate contentment, and a little tomoderate cindy. Pt denied SI and SH daily [...] participative. Pt was an active participant throughout thepsychoeducational dialogue on opposite action to sadness and [...] feedback, supportive, reflective listening and facilitated connections betweengroup members as they explored current stressors/symptoms through [...] attendance in IOP tomorrow 05/20/23. Co-facilitated between: Afua Rae [facility] & Jazmin Skelton [facility] documented in this encounterMercy Health St. [facility]12-28-2023 NoteHNO ID: [id number] Author: Afua Rae LPCC Service: Behavioral Health IOP (Intensive Outpatient Program) Author Type: Therapist Type: Progress Notes Filed: 05/14/2023 1:37 PM Note Text: Summary: DBT IOP virtual group *This service is provided virtually via [employer]. IOP (INTENSIVE OUTPATIENT PROGRAM) PROGRESS NOTE SERVICE DATE: 05/14/23 SERVICE TIME: 9AM-noon BEHAVIOR: Appearance: Casually dressed Attitude: Cooperative, distractible at times Affect: Restricted/blunted Mood: Depressed and Anxious Orientation: Oriented to person, place and time Thought:: [place] Speech: Normal, with frequent sharing in the [...] in this area of his life, with director inbound sales highlighting that pt appears to value his [...] information. Assessed safety prior (more content not included)...[facility]12-28-2023 History of Present illness Narrative* Afua Rae, [facility] - 05/14/2023 9:00 AM ESTSummary: DBT IOP virtual group *This service is provided virtually via [employer]. IOP (INTENSIVE OUTPATIENT PROGRAM) PROGRESS NOTE SERVICE DATE: 05/14/23 SERVICE TIME: 9AM-noon BEHAVIOR: Appearance: Casually dressed Attitude: Cooperative, distractible at times Affect: Restricted/blunted Mood: Depressed and Anxious Orientation: Oriented to person, place and time Thought:: [place] Speech: Normal, with frequent sharing in the context of questions about program content, skills, etc. Eye Contact: Intermittent Describe Change Noted Throughout the Day: None noted. GROUP THERAPY: Process Therapy Start Time: 9:00 am Total Time: 50 minutes # of Patients: 5 THERAPEUTIC FOCUS: Check-In PROBLEM(S) ADDRESSED: -Mental health issues INTERVENTIONS: Review DBT skills practiced, mood symptoms, urge behaviors, self- injury / suicidal /violence behaviors that necessitate need for continued IOP [...] contentment 1, cindy 0; urges (0=none, 5 =extreme) - bottling emotions 2; SI/SIB - denied; [...] participative. Pt was an active participant throughout thepsychoeducational dialogue on personal values, sharing thoughts and personal experiences frequently. Pt asked questions throughout the discussion for the purpose of clarifying understanding of skill application to their experiences. Pt disclosed his experience with epilepsy sharing that he has a goal of managing epilepsy on his daily life, with inquiring about the difference between a value and agoal in this area of his life, with director inbound sales highlighting that pt appears to value his [...] closed Thursday05/18/23 for holiday. Co-facilitated between: MAGAN Acuña-Marge & MAGAN Tomlinson-Marge documented in this encounterMercy Health St. [facility]12-27-2023 NoteHNO ID: [id number] Author: Jazmin Skelton LPCC Service: Behavioral Health [...] with crisis hotline/support numbers, is enrolled in [facility] four days a week for three hours per day, and is assigned [facility] daily questionnaire to assess risk. Self-Injury risk: Low Risk; Pt denies current urges or history of self injurious behavior. Pt is assessed daily, and has a safety plan to refer to as needed. Weekly update on patient progress summarized: Pt started in DBT [facility] today, with anticipated attendance tomorrow. Pt was [...] established with outpatient providers: prescriber: Michael Cordoba APRN-[employer] (CC) and therapist: ALVIN Perez (at [facility] in [place]). Team members present: Afua Rae, [facility] Jazmin Skelton, [facility] Mya Tena, MSN, [employer]ER, SUPER[employer], PMHNP-BC LE[facility]23 NoteHNO ID: [id number] Author: Jazmin Skelton [facility] Service: Behavioral Health IOP (Intensive Outpatient Program) Author Type: Counselor Type: Progress Notes Filed: 05/13/2023 1:20 PM Note Text: Summary: DBT IOP *This service is provided virtually via [employer]. IOP (INTENSIVE OUTPATIENT PROGRAM) PROGRESS NOTE SERVICE DATE: 05/13/23 SERVICE TIME: 9AM-noon BEHAVIOR: Appearance: Well Groomed Attitude: Cooperative Affect: Appropriate and Anxious/tense Mood: Anxious and Pleasant Orientation: Oriented to person, place and time Thought:: [place] Speech: Normal Eye Contact: Good Describe Change [...] in IOP tomorrow. Co-facilitated between: Jazmin Skelton [facility] AND Afua Rae [facility]12-27-2023 NoteHNO ID: [id number] Author: Jazmin Skelton [facility] Service: Behavioral Health IOP (Intensive Outpatient [...] in (Functional Impact): Difficulties with daily functioning. Mimeograph Operator Goal/Discharge Criteria: PHQ-9, REENA-7, and SARAH inventories [...] treatment. Short Term Obj (more content not included)...[facility] 05-13-2023 History of Present illness Narrative* Jazmin Skelton LPC - 05/13/2023 9:00 AM ESTSummary: DBT IOP *This service is provided virtually via [employer]. IOP (INTENSIVE OUTPATIENT PROGRAM) PROGRESS NOTE SERVICE DATE: 05/13/23 SERVICE TIME: 9AM-noon BEHAVIOR: Appearance: Well Groomed Attitude: Cooperative Affect: Appropriate and Anxious/tense Mood: Anxious and Pleasant Orientation: Oriented to person, place and time Thought:: [place] Speech: Normal Eye Contact: Good Describe Change [...] Pt was introduced to the group, oriented tothe diary card, zoom tools and check-in process. [...] participative. Pt was an active participant throughout thepsychoeducational dialogue on OA to fear, sharing thoughts [...] attentive, engaged and participative throughout psychoeducational dialogue onthe distress tolerance skill of ACCEPTS, with inquiring about the difference between distracting skillfulness and bottling up emotions. Pt was observed to ask a lot of questions for the purpose of c larifying understanding of the skill and applying to his personalized experiences. Pt's self-care goal is: attend a counseling appt later today. Patient Affirms Safety. Patient reaffirmed Safety Planand can stay safe from harm. PLAN: Continue IOP and current treatment plan. Pt confirmed attendance in IOP tomorrow. Co-facilitated between: TESSY Acuña & TESSY Tomlinson documented in this encounterMercy Health St. [facility]12-27-2023 Miscellaneous Notes* Plan of Care - Jazmin Skelton LPCC - 05/13/2023 9:00 AM ESTSummary: Treatment Plan for DBT IOP MASTER TREATMENT [...] and anger but experienced some recent improvement withLatuda. Pt endorses anxious symptoms, including excessive worry [...] reduction in the negative impact of past trau ma's on present moment functioning. Problem: Depression and Anxiety resulting in suicidal ideation As Evidenced by: PHQ-9 score of: 18, REENA-7 score of: 14, and SARAH score of: 41 Resulting in (Functional Impact): Difficulties with daily functioning. Mimeograph Operator Goal/Discharge Criteria: PHQ-9, REENA-7, and SARAH inventories [...] time frame): Pt will track urges for suicidalideation on diary card, and will report any SI during check- in group and through the daily questionnaire. Pt will utilize skills of STOP, TIPP, IMPROVE or ACCEPTS, as well as, safety plan upon each occurrence of SI to maintain safety. Pt will notify staff of any change in frequency or intensity of thoughts.? Date Initiated: 05/13/23 Target Date: 06/24/23 Review Date: 06/11/23 Intervention - [facility] level of care and medication evaluation and treatment. Short Term Objective Statement (behavioral measurable time frame): Pt will learn mindfulness what and how skills and will apply to emotional experiences. Pt will be able to identify and name emotions, including recognizing and being mindful to body sensations and action urges. Pt will report on useof mindfulness to body and/or emotions daily by the end of week three in DBT IOP, and will discuss during check-in daily. Pt will recognize how an increase in mindfulness to emotions has led to a decrease in urges for: suicidal thoughts, bottling emotions and lashing out. Date Initiated: 05/13/23 Target Date: 06/24/23 Review Date: 06/11/23 Intervention - [facility] level of care and medication evaluation and treatment. Short Term Objective Statement (behavioral measurable time frame): Pt will be mindful of the emotion of anger, including resulting urges to lash out at others. Pt will learn and practice the skill ofopposite action to anger, to gently avoid and take a time out to refrain from lashing out, and willimplement 2-3 times each week. Pt will learn and implement the KOMAL skill to express thoughts and opinions to others, which will increase confidence around social skills and reduce tendency to lash out at others. Date Initiated: 05/13/23 Target Date: 06/24/23 Review Date: 06/11/23 Intervention - [facility] level of care and medication evaluation and treatment. Problems identified integral to treatment and referred out: Nutritional Services at [phone] Problems identified but deferred, not a priority: None noted Problems identified but patient declined to address: None noted Team Members Participating in the Plan of Care: Primary Physician: Michael Cordoba APRN-ENZO (CC) Program Physician: Mya Tena, MSN, [employer]ED FR[employer] P[employer]ER, SU[employer], [facility]- Therapist: ALVIN Perez (at [facility] in [place]) Afua Rae, [facility] Jazmin Skelton [facility] Mya Tena, MSN, C[employer]ED FRUIT P[employer]ER, SUPER[employer], [facility] Josi Queen PA-C * Plan of Care - Jazmin Skelton LPCC - 05/13/2023 9:00 AM ESTSummary: Weekly Summary Images from the original note [...] three hours per day, and is assigned [facility] daily questionnaire to assess risk. Self-Injury risk: [...] anger regulation to the group and appears forthcomingto connect with the group and begin addressing [...] APRN-ENZO ([facility]) and therapist: ALVIN Perez (at [facility] in [place]). Team members present: Afua Rae [facility] [facility] Mya Tena, MSN, CULLED FRUIT PACKER, SUPERVISOR TREE [employer]UIT [employer] NUT FARMING, PMHNP- Josi Queen PA-C documented in this encounterMercy Health [facility]12[facility]2023 History and physical note * Josi Queen PA-C - 05/12/2023 9:00 AM EST Images from the original note were not included. PS NEW - PSYCHIATRIC ASSESSMENT INTENSIVE OUTPATIENT PROGRAM Patient was seen for an initial evaluation. All information is from Patient report except when noted. This evaluation is NOT intended for forensic, disability or child custody purposes. With the patient consent, visit was performed virtually. This virtual visit was performed using [employer] Video Visit. It required patient-provider interaction for the medical decision making as documented below. Persons present: patient and EMIGDIO provider. The patient or the patient's traffic representative consented tothis virtual encounter. I have communicated my name and active licensure. The patient's identity and physical location wereverified at the time of this visit. Either the patient or their legal traffic representative has been informed of the risks and benefits of -- and alternatives to -- treatment through a remote evaluation andconsents to proceed with the evaluation remotely. 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 HPI: Jaye Coles is a 42 year old Single male with a past history of depression, bipolar disorder, PTSD, anxiety, and ADHD who presents for admission to the DBT IOP program. Jaye reports worsening depressive symptoms with suicidal attempt in Mar 2023, without hospitalization. Pt states he had recently broken up with his girlfriend because of my mental health not being well . He states I took a bunch of medication, the Seroquel. He told his sister but did not seek out medical care following the attempt. Jaye reports that one week after the attempt, [place] and sat in his car to think. He states, I wanted to distract my mind and getaway from anything that I could use, because I was starting to feel suicidal again but didn't want it. So it helped me to stay calm. He states his sister sent the police looking for him, but that after talking with them they determined he was not suicidal and took him home. At this time, Jaye denies current suicidal thoughts, intent or plan. He states, I've had a lot of thoughts about how I could have done stuff differently. But not suicidal thoughts. He does report a history of 4 suicidalattempts via OD with three resulting in hospitalization in the last 7 years. Currently, he reports u sing writing as a coping mechanism for suicidal thoughts, stating I do a lot of writing to get stuff down and out. It usually helps. He also reports using the [employer] system for medication dispensing so that he cannot freely access his medications, and his medications are now being shipped to his sister's house for his safety. Jaye reports daily depressed moods that impact his ability to focus, complete tasks and find motivation. He states, I have a lot of emotional breakdowns, like crying a lot, even at work sometimes. He also states he has lost interest in his hobbies, including coloring, wood working, maintaining afish tank, reading, and playing computer games. He states, I haven't touched that stuff in I don'tknow how long. He does state that he [...] I think is part of it too. Jaye states his most bothersome symptoms include being impatient, and feeling rage. He reports triggers, including when I know I have something but can't find it. When I am driving and someone infront of me is not going the speed limit, or someone who is riding my tail. Just dealing with a lotof stress from Social Security and Medicaid too. They only want to do things on their time. Since starting Latuda with his outpatient provider, Jaye states he does notice some improvement, stating feeling more calm and less angered on the Latuda. Even my sister and my nephew have noticed becauseI am more patient, or not as bad driving to work. Jaye does report history of Bipolar disorder, and [...] guess everything. He also states feeling elevated moods,irritable moods, having racing thoughts and being very talkative. He states his last episode happened a couple weeks ago, after the break up and suicide attempt. Jaye states he experiences ups and downs in his anxiety, stating some days its bad and others Idon't notice it. He does report difficulty going to grocery stores or large crowd stores because it makes him feel out of control. But it is different at work because I am doing a job and in control of that job. He also states, One thing that really has my anxiety going right now is the drop inservices with my Medicaid, and my social security. Of note, Jaye reports a recent history of episodes at [...] hours . It is also up and downright now with my sleep apnea. I use [...] desk to be cleared off. Compulsions: none Ines: Pt reports decreased need for sleep. Pressured speech Racing of thoughts Easily distractable Increase in goal-directed activity. PTSD: The patient has experienced/witnessed trauma that threatened his or her integrity, response: fear/helpless. The patient responded to trauma with fear, helplessness or horror. Experiences recurrent distressing recollections of the trauma. Experiences intense psychological distress when exposed to internal or external cues that symbolizethe trauma. Physiological reactivity on exposure to internal [...] times daily as needed for anxiety rizatriptan (MAXALT-ENVIRONMENTAL SERVICES WORKER) 10 mg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 07/13/2023) [address]21-2016 History of Past illness Narrative* Problem Noted Date Diagnosed Date Resolved Date Acute respiratory failure 04/07/2016 documented as of this encounter (statuses as of 07/13/2023) [address]21-2016 History of Past illness Narrative* Problem Noted Date Diagnosed Date Resolved Date Acute respiratory failure 04/07/2016 documented as of this encounter (statuses as of 07/16/2023) [address]21-2016 History of Past illness Narrative* Problem Noted Date Diagnosed Date Resolved Date Acute respiratory failure 04/07/2016 documented as of this encounter (statuses as of 07/20/2023) [address]21-2016 History of Past illness Narrative* Problem Noted Date Diagnosed Date Resolved Date Acute respiratory failure 04/07/2016 documented as of this encounter (statuses as of 07/21/2023) [place] [address] History of Past illness Narrative* Problem Noted Date Diagnosed Date Resolved Date Acute respiratory failure 04/07/2016 documented as of this encounter (statuses as of 07/25/2023) [address]21-2016 History of Past illness Narrative* Problem Noted Date Diagnosed Date Resolved Date Acute respiratory failure 04/07/2016 documented as of this encounter (statuses as of 07/26/2023) [address]21-2016 History of Past illness Narrative* Problem Noted Date Diagnosed Date Resolved Date Acute respiratory failure 04/07/2016 documented as of this encounter (statuses as of 07/28/2023) [address]21-2016 History of Past illness Narrative* Problem Noted Date Diagnosed Date Resolved Date Acute respiratory failure 04/07/2016 documented as of this encounter (statuses as of 07/28/2023) [address]21-2016 History of Past illness Narrative* Problem Noted Date Diagnosed Date Resolved Date Acute respiratory failure 04/07/2016 documented as of this encounter (statuses as of 07/29/2023) [address]21-2016 History of Past illness Narrative* Problem Noted Date Diagnosed Date Resolved Date Acute respiratory failure 04/07/2016 documented as of this encounter (statuses as of 08/01/2023) [address]21-2016 History of Past illness Narrative* Problem Noted Date Diagnosed Date Resolved Date Acute respiratory failure 04/07/2016 documented as of this encounter (statuses as of 08/02/2023) [address]21-2016 History of Past illness Narrative* Problem Noted Date Diagnosed Date Resolved Date Acute respiratory failure 04/07/2016 documented as of this encounter (statuses as of 08/03/2023) [address]21-2016 History of Past illness Narrative* Problem Noted Date Diagnosed Date Resolved Date Acute respiratory failure 04/07/2016 documented as of this encounter (statuses as of 08/03/2023) [address]21-2016 History of Past illness Narrative* Problem Noted Date Diagnosed Date Resolved Date Acute respiratory failure 04/07/2016 documented as of this encounter (statuses as of 08/04/2023) [address]21-2016 History of Past illness Narrative* Problem Noted Date Diagnosed Date Resolved Date Acute respiratory failure 04/07/2016 documented as of this encounter (statuses as of 08/05/2023) [address]21-2016 History of Past illness Narrative* Problem Noted Date Diagnosed Date Resolved Date Acute respiratory failure 04/07/2016 documented as of this encounter (statuses as of 08/05/2023) [address]21-2016 History of Past illness Narrative* Problem Noted Date Diagnosed Date Resolved Date Acute respiratory failure 04/07/2016 documented as of this encounter (statuses as of 08/08/2023) [address]21-2016 History of Past illness Narrative* Problem Noted Date Diagnosed Date Resolved Date Acute respiratory failure 04/07/2016 documented as of this encounter (statuses as of 08/09/2023) [address]21-2016 History of Past illness Narrative* Problem Noted Date Diagnosed Date Resolved Date Acute respiratory failure 04/07/2016 documented as of this encounter (statuses as of 08/10/2023) [address]21-2016 History of Past illness Narrative* Problem Noted Date Diagnosed Date Resolved Date Acute respiratory failure 04/07/2016 documented as of this encounter (statuses as of 08/10/2023) [address]21-2016 History of Past illness Narrative* Problem Noted Date Diagnosed Date Resolved Date Acute respiratory failure 04/07/2016 documented as of this encounter (statuses as of 08/11/2023) [address]21-2016 History of Past illness Narrative* Problem Noted Date Diagnosed Date Resolved Date Acute respiratory failure 04/07/2016 documented as of this encounter (statuses as of 08/20/2023) [address]21-2016 History of Past illness Narrative* Problem Noted Date Diagnosed Date Resolved Date Acute respiratory failure 04/07/2016 documented as of this encounter (statuses as of 08/27/2023) [address]21-2016 History of Past illness Narrative* Problem Noted Date Diagnosed Date Resolved Date Acute respiratory failure 04/07/2016 documented as of this encounter (statuses as of 08/27/2023) [facility] History of Past illness Narrative* Problem Noted Date Diagnosed Date Resolved Date Acute respiratory failure 04/07/2016 documented as of this encounter (statuses as of 08/27/2023) [facility]11-21-2016 History of Past illness Narrative* Problem Noted Date Diagnosed Date Resolved Date Acute respiratory failure 04/07/2016 documented as of this encounter (statuses as of 08/27/2023) [facility] Author Taiwo rousseau [facility] September 25, 2023 2:49pm Note Date/Time September 25, 2023 2:49p m [facility] [address] [place] [address] Psychiatry Consult Note Signed Patient: Jaye Coles MR#: [id number] : 1980 Acct:[id number] Age/Sex: 42 / M Adm Date: 4 Loc: Room: [address] [place] [address] Type : ADM IN Attending Dr: Mary Calhoun MD Copies to: MD Uriel Robles MD Ruta Semaskiene, MD~ HPI Consult Date: 09/25/23 Requesting Physician: Mary Calhoun MD Primary Care Provider: Uriel Nunez MD Consult Narrative Reason for consult: Drug overdose and psychiatric evaluation HPI: Mr. Coles is a 42 year old male with a reported history of bipolar disorder, depression, anxiety, seizure disorder, hypertension who presents for inpatient treatment due to concern for depression and an suicide attempt after overdosing with clonazepam, and Latuda. Reportedly, patient presents to the ER for concerns of suicide attempt. Patient had reportedly sent text messages to his sister there were concerning. Patient was personally seen by me on the day of the encounter. I reviewed the history and performed the guerrero elements of the assessment. I formulated the planof care and confirmed this with the medical student as noted below At the time of the interview, he presented as depressed. Patient was brought tot emergency room after being found unresponsive at home by family. Patient's sister said that she received a text of the patient around 1555 that said owen. She said that she found 2 bottles of clonazepam and a bottle of Latudanear him. It is unknown the amount that the patient took. Mother reports the patient has been known to stockpiles medications and not take them as prescribed. They both report that the patient has made comments that he attempted suicide so he does not want to have to feel pain anymore. Patient does follow with neurology, psychiatry, psychology with the [facility]. He has a vagal nerve stimulation device for his seizures. He also does see [facility] counseling 3 times a week. Upon questioning the patient he states that he has been having relationship issues with his girlfriend for years. He states that she recently told him that she does not want to be with him anymore,and that seems to tyler the beginning of this episode of increasing depression, anxiety, suicidal ideation. He states the last time that he had a suicide attempt was 4 years ago when his girlfriend reportedly cheated on him. He follows up with psychiatry at the [facility]. He said he was previously hospitalized at and a psychiatrist prescribed for him Pristiq back then whichworsened his seizures. 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 Review of systems: Constitutional: Denies chills and denies fever Eyes: Denies change in vision ENT: Denies abnormal hearing Cardiovascular: Denies chest pain Respiratory: Denies chest congestion and denies cough Gastrointestinal: Denies change in bowel habits Genitourinary: Denies dysuria Musculoskeletal: Headache Integumentary/breast: Denies dry skin Neurologic: Denies abnormal gait and denies abnormal movements Psychiatric: reports depression and suicidal ideation Physical exam: Constitutional: Cooperative Nutritional appearance: Average body habitus Orientation: Alert, awake and oriented x 3 HEENT: Head normal to inspection, hearing grossly normal bilaterally, external nose normal, face symmetric Eyes: Appearance normal, both eyes and all related structures, sclera normal Neck: Normal visual inspection and full ROM Respiratory: Normal respiratory effort, able to speak in complete sentences and symmetric chest movement Cardio: Tachycardic GI: Normal to inspection and nondistended : Deferred, Yanes in place with 100 mL of clear yellow urine Skin: No rashes or lesions noted Neuro: CN I: Normal olfaction, CN II: Visual cisneros intact, CN III, IV, : EOM intact, no nystagmus. Pupils equal, round, reactive to light and accommodation,CN V: Sensation intact to light touch, CN VII: Raises eyebrows, smile/frown, puff out cheeks symmetrically, CN VIII: Hearing intact bilaterally, CN IX, X: Voice normal, soft palate elevation normal, symmetrical, CN XI: Shoulder shrug strong, equal bilaterally, CN XII: Tongue protrusion midline, movements symmetrical. Extremities: Normal to inspection and full ROM Mental Status Exam: Appearance: grossly normal Mental Status: mental status grossly normal Mood: dysthymic mood Affect: dysphoric affect Speech and Movement: speech normal, movement normal Attitude: cooperative Thought Process: normal Thought Content: Denied hallucinations, no homicidality, reported suicidality Insight: fair Judgment: fair [facility] Medical History (Updated 09/25/23 @ 11:58 by Scott Monterroso MD) Suicide attempt about 10 attempts, first attempt at age 16 Bipolar disorder Neurostimulator device in situ in L chest, for seizures Depression Anxiety Sleep apnea non-compliant w/ cpap Seizure Hypertension GI bleed Surgical History (Updated 09/24/23 @ 00:52 by Arabella Veloz APRN) H/O arthroscopic knee surgery History of appendectomy Family History (Updated 09/24/23 @ 00:52 by Arabella Veloz APRN) Father Myocardial infarction Social History Smoking Status: Never smoker Substance Use Type: None Social History Comments: lives in a [facility] Medications and Allergies Allergies levetiracetam Allergy (Mild, Verified 01/01/23 14:55) Unknown Reaction desvenlafaxine [From Pristiq] Allergy (Verified 01/01/23 14:55) Seizure Home Medications lacosamide 100 mg tablet (Vimpat) 100 mg PO BID 01/15/17 [History Confirmed 09/25/23] propranolol 120 mg capsule,24 hr,extended release (Inderal LA) 120 mg PO QDAY 01/15/17 [History Confirmed 09/25/23] quetiapine 200 mg tablet 300 mg PO HS 01/15/17 [History Confirmed 09/25/23] sertraline 100 mg tablet 300 mg PO QHS 01/15/17 [History Confirmed 09/25/23] albuterol sulfate 90 mcg/actuation aerosol inhaler 1 - 2 puff inhalation QID PRNDyspnea 05/28/17 [History Confirmed 09/25/23] clonazepam 2 mg tablet 2 mg PO TID 05/28/17 [History Confirmed 09/25/23] cyproheptadine 4 mg tablet 4 mg PO BID 09/07/18 [History Confirmed 09/25/23] lorazepam 2 mg/mL injection solution (Ativan) 1 mg IM ONCE PRN Seizure Activity 01/01/23 [History Confirmed 09/25/23] docusate sodium 100 mg capsule mg PO 09/25/23 [History] Exam Physical Exam Vital Signs: Temp Pulse Resp BP Pulse Ox O2 Del Method O2 Flow Rate 98.1 F 110 H 23 138/90 95 Nasal Cannula 2 09/25/23 00:00 09/25/23 10:00 09/25/23 10:00 09/25/23 10:00 09/25/23 10:00 09/25/23 10:00 09/25/23 10:00 Results - Psychiatry Labs 09/23/23 18:20 09/25/23 04:57 Psychiatry Labs: 09/23/23 09/23/23 09/24/23 18:20 18:30 04:18 RBC 5.39 Hgb 15.5 Hct 45.9 MCV 85.2 MCH 28.8 MCHC 33.9 RDW 13.7 Plt Count 300 MPV 7.2 Sodium 139 139 Potassium 3.9 4.3 Chloride 103 108 H Carbon Dioxide 28.3 26.2 Anion Gap 11.6 9.1 BUN 10 9 Creatinine 0.84 0.65 L Calcium 9.4 8.1 L Total Bilirubin 0.8 AST 16 ALT 26 Alkaline Phosphatase 57 Total Protein 7.0 Albumin 4.4 Urine Color Yellow Urine Appearance Clear Urine pH 6.5 Ur Specific Wendel 1.009 Urine Protein Negative Urine Glucose (UA) Normal Urine Ketones Negative Urine Occult Blood Negative Urine Nitrite Negative Ur Leukocyte Esterase Negative 09/25/23 04:57 RBC Hgb Hct MCV MCH MCHC RDW Plt Count MPV Sodium 135 L Potassium 3.9 Chloride 104 Carbon Dioxide 25.1 Anion Gap 9.8 BUN 5 L Creatinine 0.73 Calcium 8.7 Total Bilirubin 1.3 H AST 16 ALT 23 Alkaline Phosphatase 61 Total Protein 6.6 Albumin 3.9 Urine Color Urine Appearance Urine pH Ur Specific [place] Urine Protein Urine Glucose (UA) Urine Ketones Urine Occult Blood Urine Nitrite Ur Leukocyte Esterase Assessment/Plan (1) Suicide attempt: (2) Overdose: Qualifiers: Encounter type: initial encounter Injury intent: intentional self-harm Qualified Code(s): T50.902A - Poisoning by unspecified drugs, medicaments and biological substances, intentional self-harm, initial encounter (3) Seizure disorder: Plan Will need to be admitted to inpatient psychiatric treatment once medically cleared. He prefers another unit besides . Restart Seroquel 50 mg p.o. nightly Attempting to obtain records from [facility] neurology and psychiatry on patient's past medication list Monitor suicidal behaviors for safety of self (15-minute face check). Recommend attending groups and psychoeducation for building coping skills. Typical short and long-term side effects of the proposed medication regiment, including contraindications and clinically significant interactions, were discussed with the patient. Side effects include but not limited to sedation, overdose, hypo or hypertension, rash, movement disorders (TD, EPS), weight gain, and appetite changes and advised the patient not to drive or drink while taking these meds. Patient should reach out to medical provider if any of these side effects occur. We also discussed risk of overdose with this current med regimen patient voiced understanding of benefits and agreement with treatment plan. Targeted symptoms and signs, possible therapeutic benefit, side effect and risks were discussed. No abnormal movements noted on exam. AIMS is Zero. Involved friends/family members if applicable to coordinate care and ensure appropriate outpatient appointments are scheduled prior to discharge. I have reviewed evaluations by other providers (ER notes, nurses and staff) Prognosis: Factors to be considered are the chronicity and severity of the symptoms and signs, associated comorbidity, and differential diagnosis-motivation to get into treatment, response to treatment, adherence to treatment recommendations, and using skills. The patient's verbal consent was provided. Documented By: Taiwo Trujillo MD 4 0926 Signed By: <Electronically signed by Taiwo Trujillo MD> 09/25/23 6934 [facility] Work Phone: Discharge summary Author Mary Calhoun [facility] September 26, 2023 10:49am Note Date/Time September 26, 2023 10:49 am [facility] [address] [place] [address] Discharge Summary Signed Patient: Jaye Coles MR#: [id number] : 1980 Acct:[id number] Age/Sex: 42 / M Adm Date: 4 Loc: Room: [address] [place] [address]: Mary Calhoun MD Copies to: MD Mary Keating MD~ Providers Date of Discharge: 09/26/23 Discharging Provider: Mary Calhoun Primary Care Provider: Uriel Nunze Consults: 09/23/23 23:52 Consult to Pulmonology Routine Comment: Consulting Provider: FAIZA - Pulmon, CC & Sleep Med Reason For Exam: Critical Care Management Has Provider Been Notified: Yes Date of Notification: 09/24/23 Time of Notification: 00:01 Extended Comment: Will update doctor on consult in AM 09/25/23 09:33 Consult to Psychiatry Routine Comment: Consulting Provider: Taiwo Trujillo Reason For Exam: intentional overdose Has Provider Been Notified: Yes Date of Notification: 09/25/23 Time of Notification: 09:50 Discharge Diagnosis (1) Suicide attempt: (2) Overdose: (3) Seizure disorder: Final Diagnosis Final Discharge Diagnosis: Suicidal attempt by drug overdose with clonazepam and lurasidone complicated by acute metabolic encephalopathy and hypoxia, which resolved, transferred to [facility]. Hypoxia requiring oxygen supplementation, suspect due to atelectasis without anyfocal signs of infection, resolved, discharged on room air Seizure disorder, continued with antiseizure medication, status post recent vagal nerve stimulator implantation at [facility] in August 2023 Obstructive sleep apnea on BiPAP at home, not very compliant, recommended to bring BiPAP machine from home and resume it Summary Hospital Course Hospital course: 42 years old male with a history of epilepsy, status post recent vagal nerve stimulator implantation at [facility], presented with suicidal attempt with clonazepam and lurasidone. Patient was quite lethargic and was admitted toICU with suicidal precaution. He was treated conservatively without any significant complications. He was eval to by psychiatrist and recommended to [facility]ferred to [facility] unit. Initially patient did have some hypoxia, requiring oxygen supplementation, probably due to atelectasis, he remained afebrile, without leukocytosis, without left shift, on the day of discharge oxygen was removed, he remained on room air, saturating 99%, his cough improved. There wasno signs to suspect pneumonia. Eval to by pulmonology, recommended of antibiotic therapy. Telemetry did not reveal any significant arrhythmias. On discharge she was able to tolerate p.o. intake well, denies any significant complaints. He expresses their wishes that he wants to be transferred to psych unit at [facility]. We got in touch with [facility], however they do not have beds, so they refused to take any information regarding the patient. Eventually patient was agreeable to be transferred to [facility] for further evaluation and treatment. Physical exam: General -awake, alert, oriented ?3, not in acute distress Cardiovascular -S1 with S2, no murmurs, no rubs, no gallops Pulmonary - clear to auscultation bilaterally Gastrointestinal - abdomen is soft, nondistended, nontender, bowel sounds positive, there is no rigidity, no rebound Extremities -no edema Neurological -no focal neurological dysfunction noted Laboratory work up and Imaging studies reviewed quality assurance monitor - reviewed, no significant arrhythmias The patient CARE and further plan was discussed with the patient. All questionsanswered. Patient expressed understanding and was discharged to [facility] in hemodynamically stable condition. The patient was given written and verbal instructions. Time Spent with Patient Time spent providing/coordinating discharge services (# min): 25 Discharge Plan Discharge Plan Patient Disposition: Psychiatric [facility] Activity: Other Comment: Suicide/seizure precautions Diet: Regular Additional Instructions: Inpatient Psychiatry to manage care: - Full code - Routine vital signs - Suicide precautions per facility protocol - Seizure precautions per facility protocol - Bipap at HS per chronic home orders - Oxygen at 2L per nasal cannula, wean as tolerated Prescriptions: New sennosides [Senna Laxative] 8.6 mg Tablet 8.6 mg PO PRN PRN (Reason: Constipation) Qty: 30 0RF polyethylene glycol 3350 [HealthyLax] 17 gram Powder In Packet 17 g PO DAILY PRN (Reason: Constipation) Qty: 0 0RF Continued propranolol [Inderal LA] 120 mg Capsule,Extended Release 24 Hr 120 mg PO QDAY Patient Comments: does not list as taking lacosamide [Vimpat] 100 mg Tablet 100 mg PO BID clonazepam 2 mg tablet 2 mg PO TID Patient Comments: states 2mg BID albuterol sulfate 90 mcg/actuation HFA aerosol inhaler 1 - 2 puff Inhalation QID PRN (Reason: Dyspnea) Patient Comments: cyproheptadine 4 mg tablet 4 mg PO BID Patient Comments: does not list as taking lurasidone 80 mg tablet simvastatin 20 mg tablet 20 mg PO .every evening Changed quetiapine 200 mg Tablet 50 mg PO HS Qty: 30 0RF Rx Instructions: 250 mg PO QHS, may take second 50mg if not asleep 40-45 minutes. Held sertraline 100 mg Tablet 300 mg PO QHS Hold Instructions: Until by evaluated by psychiatrist Patient Comments: taking 200mg Discontinued lorazepam [Ativan] 2 mg/mL Solution 1 mg IM ONCE PRN (Reason: Seizure Activity) Rx Instructions: administer 5-20 minutes before start of surgery/procedure as a single dose docusate sodium 100 mg capsule PO Follow Up: Uriel Nunez MD [Primary Care Provider] - (Follow-up with your Primary Care Provider after discharge from [facility]. ) Exam Physical Exam Vital Signs: Temp Pulse Resp BP Pulse Ox O2 Del Method O2 Flow Rate 36.8 C 84 24 114/77 95 Room Air 2 09/26/23 08:00 09/26/23 10:00 09/26/23 10:00 09/26/23 10:00 09/26/23 10:00 09/26/23 10:00 09/26/23 09:00 Diagnostic Studies Completed and Pending Studies Pending studies at discharge: 09/25/23 11:18 Procalcitonin Stat Labs on day of discharge: 09/26/23 04:44: Corrected WBC 10.1, Uncorrected WBC Count 10.1, RBC 5.12, Hgb 14.9, Hct 43.7, MCV 85.4, MCH 29.1, MCHC 34.1, RDW 13.4, Plt Count 276, MPV 7.5,Neut % (Auto) 62.7, Lymph % (Auto) 24.5, Garfield % (Auto) 8.8, Eos % (Auto) 3.2, Baso % (Auto) 0.8, Nucleat RBC Rel Count 0.0, Neut # (Auto) 6.3, Lymph # (Auto) 2.5, Garfield # (Auto) 0.9 H, Eos # (Auto) 0.3, Baso # (Auto) 0.1, PHA Creatinine Clear 175.50, Sodium 136, Potassium 4.1, Chloride 103, Carbon Dioxide 27.1, Anion Gap 10.0, BUN 9, Creatinine 0.67 L, Est GFR (CKD-EPI) > 60.0, Glucose 109 H, Calcium 9.2 Documented By: Mary Calhoun MD 09/26/23 1044 Signed By: <Electronically signed by Mary Calhoun MD> 09/26/23 1049 [facility] Work Phone: Evaluation + Plan note Future Appointments Appointment Date:09/29/2022 11:15:00 AM Scheduled Provider: Location:[facility] Future Appointments Appointment Date:05/13/2023 09:00:00 AM Scheduled Provider:Nahed Doran MD Location:[facility] Appointment Type:URO Office Visit Diagnostic Tests Pending * PTH Intact 03/04/23 * Uric Acid 03/04/23 [facility] evaluation + Plan note Future Appointments Appointment Date:05/13/2023 09:00:00 AM Scheduled Provider:Nahed Doran MD Location:[facility] Appointment Type:URO Office Visit Diagnostic Tests Pending * Calculi Analysis Urinary 03/04/23 [facility] note* Diagnosis Partial epilepsy with impairment of consciousness, 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) epilepsy and epileptic syndromes with complex partial seizures, with intractable epilepsy Recurrent major depression in partial remission (HCC) Major depressive disorder, recurrent episode, in partial or unspecified remission documented in this encounter [facility] note* Diagnosis Bipolar 2 disorder (HCC) Other bipolar disorders documented in this encounter [facility] note* Diagnosis Bipolar II disorder (HCC)- Primary Other bipolar disorders documented in this encounter [facility] note* Diagnosis 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- Primary Other postprocedural status [facility] 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- Primary Other postprocedural status [facility] Diagnosis 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 Other [facility]ced[facility] 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- Primary Other postprocedural status Tenderness of neck [facility] Diagnosis Chronic nonintractable headache, unspecified headache type- Primary Partial epilepsy with impairment of consciousness, intractable (HCC) Localization-related (focal) (partial) epilepsy and epileptic syndromes with complex partial seizures, with intractable epilepsy [facility] Diagnosis Partial epilepsy with impairment of consciousness, intractable (HCC) Localization-related (focal) (partial) epilepsy and epileptic syndromes with complex partial seizures, with intractable epilepsy [facility]No assessment [facility] Work Phone: Evaluation note* Diagnosis Chronic migraine without aura without status migrainosus, not intractable Chronic migraine without aura, without mention of intractable migraine without mention of status migrainosus documented [facility]* Diagnosis Bipolar II disorder (HCC)- Primary Other bipolar disorders [facility] Diagnosis Migraine without aura, intractable, with status migrainosus- Primary Migraine without aura, with intractable migraine, so stated, with status migrainosus Partial epilepsy with impairment of consciousness, intractable (HCC) Localization-related (focal) (partial) epilepsy and epileptic syndromes with complex partial seizures, with intractable epilepsy [facility] Diagnosis Chronic migraine without aura without status migrainosus, not intractable- Primary Chronic migraine without aura, without mention of intractable migraine without mention of status migrainosus documented [facility] Diagnosis Chronic migraine without aura without status migrainosus, not intractable- Primary Chronic migraine without aura, without mention of intractable migraine without mention of status migrainosus documented [facility] Diagnosis Chronic migraine without aura without status migrainosus, not intractable Chronic migraine without aura, without mention of intractable migraine without mention of status migrainosus [facility] Diagnosis Chronic migraine without aura without status migrainosus, not intractable Chronic migraine without aura, without mention of intractable migraine without mention of status migrainosus [facility]* Diagnosis Partial epilepsy with impairment of consciousness, intractable (HCC) Localization-related (focal) (partial) epilepsy and epileptic syndromes with complex partial seizures, with intractable epilepsy [facility] Diagnosis Preoperative testing- Primary Preoperative examination, unspecified Partial epilepsy with impairment of consciousness, intractable (HCC) Localization-related (focal) (partial) epilepsy and epileptic syndromes with complex partial seizures, with intractable epilepsy Encounter for therapeutic drug level monitoring Encounter for therapeutic drug monitoring [facility]* Diagnosis Pre-op evaluation- Primary Preoperative examination, unspecified Hypertension, unspecified type HIMA (obstructive sleep apnea) Obstructive sleep apnea (adult) (pediatric) Severe mixed bipolar I disorder without psychotic features (HCC) Bipolar I disorder, most recent episode (or current) mixed, severe, without mention of psychotic behavior Migraine without aura, intractable, with status migrainosus Migraine without aura, with intractable migraine, so stated, with status migrainosus Epilepsy with altered consciousness without intractable epilepsy (HCC) Unspecified epilepsy without mention of intractable epilepsy Depression with anxiety Dysthymic disorder Partial epilepsy with impairment of consciousness, intractable (HCC) Localization-related (focal) (partial) epilepsy and epileptic syndromes with complex partial seizures, with intractable epilepsy [facility] Diagnosis Focal epilepsy with impairment of consciousness, 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) 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, with intractable epilepsy Partial epilepsy with impairment of consciousness, intractable (HCC) Localization-related (focal) (partial) epilepsy and epileptic syndromes with complex partial seizures, with intractable epilepsy [facility] Diagnosis Partial epilepsy with impairment of consciousness, intractable (HCC) Localization-related (focal) (partial) epilepsy and epileptic syndromes with complex partial seizures, with intractable epilepsy Partial epilepsy with impairment of consciousness, intractable (HCC) Localization-related (focal) (partial) epilepsy and epileptic syndromes with complex partial seizures, with intractable epilepsy [facility]* Diagnosis Preoperative testing Preoperative examination, unspecified Partial epilepsy with impairment of consciousness, intractable (HCC) Localization-related (focal) (partial) epilepsy and epileptic syndromes with complex partial seizures, with intractable epilepsy [facility] Diagnosis Onset Date Resolution Status Overdose acute Suicide attempt acute [facility] Work Phone: Evaluation note* Diagnosis Onset Date Resolution Status Hypoxia acute HIMA (obstructive sleep apnea) acute Overdose acute Seizure disorder acute Suicide attempt acute [facility] Work Phone: Evaluation note* Diagnosis Partial epilepsy with impairment of consciousness, intractable (HCC) Localization-related (focal) (partial) epilepsy and epileptic syndromes with complex partial seizures, with intractable epilepsy [facility] Diagnosis Chronic migraine without aura without status migrainosus, not intractable Chronic migraine without aura, without mention of intractable migraine without mention of status migrainosus documented [facility] Diagnosis 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- Primary Other postprocedural status Partial epilepsy with impairment of consciousness, intractable (HCC) Localization-related (focal) (partial) epilepsy and epileptic syndromes with complex partial seizures, with intractable epilepsy [facility] Diagnosis Partial epilepsy with impairment of consciousness, 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) epilepsy and epileptic syndromes with complex partial seizures, with intractable epilepsy [facility] Diagnosis Pre-op evaluation- Primary Preoperative examination, unspecified Hypertension, unspecified type HIMA (obstructive sleep apnea) Obstructive sleep apnea (adult) (pediatric) Severe mixed bipolar I disorder without psychotic features (HCC) Bipolar I disorder, most recent episode (or current) mixed, severe, without mention of psychotic behavior Migraine without aura, intractable, with status migrainosus Migraine without aura, with intractable migraine, so stated, with status migrainosus Epilepsy with altered consciousness without intractable epilepsy (HCC) Unspecified epilepsy without mention of intractable epilepsy Depression with anxiety Dysthymic disorder Partial epilepsy with impairment of consciousness, intractable (HCC) Localization-related (focal) (partial) epilepsy and epileptic syndromes with complex partial seizures, with intractable epilepsy [facility] Diagnosis Pre-op evaluation- Primary Preoperative examination, unspecified Hypertension, unspecified type HIMA (obstructive sleep apnea) Obstructive sleep apnea (adult) (pediatric) Severe mixed bipolar I disorder without psychotic features (HCC) Bipolar I disorder, most recent episode (or current) mixed, severe, without mention of psychotic behavior Migraine without aura, intractable, with status migrainosus Migraine without aura, with intractable migraine, so stated, with status migrainosus Epilepsy with altered consciousness without intractable epilepsy (HCC) Unspecified epilepsy without mention of intractable epilepsy Depression with anxiety Dysthymic disorder Chronic migraine without aura without status migrainosus, not intractable Chronic migraine without aura, without mention of intractable migraine without mention of status migrainosus documented in [facility] Diagnosis Pre-op evaluation- Primary Preoperative examination, unspecified Hypertension, unspecified type HIMA (obstructive sleep apnea) Obstructive sleep apnea (adult) (pediatric) Severe mixed bipolar I disorder without psychotic features (HCC) Bipolar I disorder, most recent episode (or current) mixed, severe, without mention of psychotic behavior Migraine without aura, intractable, with status migrainosus Migraine without aura, with intractable migraine, so stated, with status migrainosus Epilepsy with altered consciousness without intractable epilepsy (HCC) Unspecified epilepsy without mention of intractable epilepsy Depression with anxiety Dysthymic disorder Chronic migraine without aura without status migrainosus, not intractable- Primary Chronic migraine without aura, without mention of intractable migraine without mention of status migrainosus documented [facility]* Diagnosis Low back pain, unspecified back pain laterality, unspecified chronicity, unspecified whether sciatica present- Primary Pain in thoracic spine Other chronic pain [facility] Diagnosis Pre-op evaluation- Primary Preoperative examination, unspecified Hypertension, unspecified type HIMA (obstructive sleep apnea) Obstructive sleep apnea (adult) (pediatric) Severe mixed bipolar I disorder without psychotic features (HCC) Bipolar I disorder, most recent episode (or current) mixed, severe, without mention of psychotic behavior Migraine without aura, intractable, with status migrainosus Migraine without aura, with intractable migraine, so stated, with status migrainosus Epilepsy with altered consciousness without intractable epilepsy (HCC) Unspecified epilepsy without mention of intractable epilepsy Depression with anxiety Dysthymic disorder Partial epilepsy with impairment of consciousness, intractable (HCC) Localization-related (focal) (partial) epilepsy and epileptic syndromes with complex partial seizures, with intractable epilepsy Chronic migraine without aura without status migrainosus, not intractable Chronic migraine without aura, without mention of intractable migraine without mention of status migrainosus [facility] Narrative No data available for this section [facility] No data available for this section [facility] CenterInstructionsNot on filedocumented in this encounter [facility] No data available for this section [facility] CenterProgress note Author Reginald Tang [facility] September 24, 2023 9:15am Note Date/Time September 24, 2023 9:15am [facility] [address] [place], [place] [id number] Progress Note Signed Patient: Jaye Coles MR#: [id number] : 1980 Acct:[id number] Age/Sex: 42 / M Adm Date: 4 Loc: Room: [address] [place] [address] Type: ADM IN Attending Dr: Mary Calhoun MD Copies to: ~ Date of Service: 09/24/2023 Progress Narrative Note PROGRESS NOTE Progress Note: Chart was reviewed with patient noted to have overdose of amoxicillin, clonazepam, and Latuda. Patient is hemodynamically stable and on room air with QT interval previously prolonged having normalized. Patient is pink slipped andreported plan is for psychiatry evaluation. I have nothing to offer from a pulmonary/critical care medicine perspective. We will be available if needed but will not formally round on the patient. Documented By: Reginald Tang MD 4 0914 Signed By: <Electronically signed by MD Reginald Tang> 09/24/23 0915 [facility] Work Phone: Progress note Author Mary Calhoun [facility] September 24, 2023 12:23pm Note Date/Time September 24, 2023 12:23p m [facility] [address] [place] [id number] Hospitalist Progress Note Signed Patient: Jaye Coles MR#: [id number] : 1980 Acct:[id number] Age/Sex: 42 / M Adm Date: 4 Loc: Room: [address] [place] [address] Type: ADM IN Attending Dr: Mary Calhoun MD Copies to: ~ Date of Service: 09/24/2023 Subjective Subjective Narrative: Patient has been seen and examined, appears to be quite lethargic, but intermittently he is agitated when aroused, in restraints Physical exam: General -quite lethargic, arousable to painful stimuli, not following commands, does not appear to be in respiratory distress, does not appear to be painful Cardiovascular -S1 with S2, no murmurs, no rubs, no gallops, tachycardia noted Pulmonary - clear to auscultation bilaterally Gastrointestinal - abdomen is soft, no signs of acute abdomen Extremities -no edema Neurological -no focal neurological dysfunction noted, able to move all extremities Exam Physical Exam Vital Signs: Temp Pulse Resp BP Pulse Ox O2 Del Method O2 Flow Rate 37.6 C H 118 H 18 107/71 97 Nasal Cannula 2 09/24/23 10:00 09/24/23 11:00 09/24/23 11:00 09/24/23 11:00 09/24/23 11:00 09/24/23 12:00 09/24/23 12:00 Objective Lab Results 09/23/23 18:20 09/24/23 04:18 ABG Interpretation ABG results: 09/24/23 04:27 VBG pH 7.40 VBG pCO2 37.0 L VBG pO2 58.7 H VBG HCO3 22.5 L VBG Total CO2 23.6 L VBG O2 Saturation 92.4 H* VBG Base Excess -1.8 Meds Allergies and Active Meds Allergies levetiracetam Allergy (Mild, Verified 01/01/23 14:55) Unknown Reaction desvenlafaxine [From Pristiq] Allergy (Verified 01/01/23 14:55) Seizure Active Meds: Active Medications Generic Name Dose Route Start Last Admin Trade Name Freq PRN Reason Stop Dose Admin Acetaminophen 1,000 mg 09/23/23 23:45 Acetaminophen 500 Mg Tablet PO 09/22/24 23:44 Q6HR PRN Pain Scale 1 - 3 or fever Heparin Sodium (Porcine) 5,000 unit 09/24/23 06:00 09/24/23 05:35 Heparin 5,000 Unit/Ml Vial SUBCUT 09/23/24 05:59 5,000 unit Q8HR RUPERTO Administration Lactated Ringer's 1,000 mls @ 75 mls/hr 09/23/23 23:45 09/24/23 10:13 Lactated Ringers IV 09/25/23 02:24 150 mls/hr .[id number] RUPERTO Administration Prochlorperazine Edisylate 10 mg 09/23/23 23:54 Prochlorperazine Edisylate 10 Mg/2 Ml Vial IV-PUSH 09/22/24 23:53 Q4H PRN Nausea And Vomiting Sodium Chloride 0 ml 09/24/23 06:00 09/24/23 05:35 Sodium Chloride 0.9 % 10 Ml Syringe IV-PUSH 09/23/24 05:59 20 ml QSHIFT RUPERTO Administration A&P - Hospitalist Assessment/Plan (1) Suicide attempt: (2) Overdose: (3) Seizure disorder: Plan Suicide attempt Overdose- unknown what the patient took, family found empty clonazepam and lurasidone bottles next to him - EKG in am, monitor QTc - Suicide precautions - IV hydration, LR @ 75cc/hr x 2L - Consulted pulm for critical care - Monitor neuro status - Consulted psychiatric services when medically cleared Seizure disorder- seizure precautions Bipolar disorder DVT PPx-SCDs, Heparin Diet order-n.p.o., advance as tolerated when patient awakens to regular diet CODE STATUS-full code Documented By: Mary Calhoun MD 09/24/23 1222 Signed By: <Electronically signed by Mary Calhoun MD> 09/24/23 1223 [facility] Work Phone: Progress note Author Mary Calhoun [facility] September 25, 2023 10:06am Note Date/Time September 25, 2023 10:02 am [facility] [address] [place] [address] Hospitalist Progress Note Signed Patient: Jaye Coles MR#: [id number] : 1980 Acct:[id number] Age/Sex: 42 / M Adm Date: 4 Loc: Room: [address] [place] [address] Type: ADM IN Attending Dr: Mary Calhoun MD Copies to: ~ Date of Service: 09/25/2023 Subjective Subjective Narrative: Patient has been seen and examined, today he appears to be more awake, able to respond, ate breakfast without any significant complaints. Denies any abdominalpain no nausea no vomiting, he does have some cough, remains on 2 L nasal cannula, saturating 95%, still remains slightly tachycardic, feels quite weak Physical exam: General -awake and oriented x 3 Cardiovascular -S1 with S2, no murmurs, no rubs, no gallops, tachycardia noted Pulmonary - clear to auscultation bilaterally Gastrointestinal - abdomen is soft, no signs of acute abdomen Extremities -no edema Neurological -no focal neurological dysfunction noted, able to move all extremities Exam Physical Exam Vital Signs: Temp Pulse Resp BP Pulse Ox O2 Del Method O2 Flow Rate 36.7 C 111 H 24 136/83 95 Room Air 2 09/25/23 00:00 09/25/23 09:07 09/25/23 09:07 09/25/23 09:07 09/25/23 09:07 09/25/23 09:07 09/25/23 06:00 Objective Lab Results 09/23/23 18:20 09/25/23 04:57 Meds Allergies and Active Meds Allergies levetiracetam Allergy (Mild, Verified 01/01/23 14:55) Unknown Reaction desvenlafaxine [From Pristiq] Allergy (Verified 01/01/23 14:55) Seizure Active Meds: Active Medications Generic Name Dose Route Start Last Admin Trade Name Freq PRN Reason Stop Dose Admin Acetaminophen 1,000 mg 09/23/23 23:45 Acetaminophen 500 Mg Tablet PO 09/22/24 23:44 Q6HR PRN Pain Scale 1 - 3 or fever Heparin Sodium (Porcine) 5,000 unit 09/24/23 06:00 09/25/23 06:52 Heparin 5,000 Unit/Ml Vial SUBCUT 09/23/24 05:59 5,000 unit Q8HR RUPERTO Administration Prochlorperazine Edisylate 10 mg 09/23/23 23:54 Prochlorperazine Edisylate 10 Mg/2 Ml Vial IV-PUSH 09/22/24 23:53 Q4H PRN Nausea And Vomiting Sodium Chloride 0 ml 09/24/23 06:00 09/25/23 06:52 Sodium Chloride 0.9 % 10 Ml Syringe IV-PUSH 09/23/24 05:59 10 ml QSHIFT RUPERTO Administration A&P - Hospitalist Assessment/Plan (1) Suicide attempt: (2) Overdose: (3) Seizure disorder: Plan Suicide attempt -with clonazepam and lurasidone Patient's mental status significantly better, will consult psychiatry Acute metabolic encephalopathy due to overdose, mental status significantly improved Seizure disorder- seizure precautions, status post vagal [facility]ator [facility] August [facility], 2023, we will restart his seizure medications Bipolar disorder DVT PPx-SCDs, Heparin CODE STATUS-full code Documented By: Mary Calhoun MD 09/25/23 1001 Signed By: <Electronically signed by Mary Calhoun MD> 09/25/23 1006 [facility] Work Phone: Progress note Author Scott Monterroso [facility] September 25, 2023 12:09pm Note Date/Time September 25, 2023 12:00 pm [facility] [address] [place] [address] Pulmonology Progress Note Signed Patient: Jaye Coles MR#: [id number] : 1980 Acct:[id number] Age/Sex: 42 / M Adm Date: 4 Loc: Room: [address] [place] [address] Type: ADM IN Attending Dr: Mary Calhoun MD Copies to: ~ Date of Service: 09/25/2023 Subjective Subjective Narrative: Developed hypoxia overnight and was placed on supplemental oxygen at 2 L via nasal cannula. Complaining of cough but unable to cough up any secretions. Denies chest pain. Exam Physical Exam Vital Signs: Temp Pulse Resp BP Pulse Ox O2 Del Method O2 Flow Rate 98.1 F 106 H 22 132/81 96 Nasal Cannula 2 09/25/23 00:00 09/25/23 11:00 09/25/23 11:00 09/25/23 11:00 09/25/23 11:00 09/25/23 11:00 09/25/23 11:00 Narrative: CONST- Appears well -developed and well nourished. NECK-Supple, no cervical lymphadenopathy CARDIAC- tachycardic, regular rhythm, S1 & S2. PULM-diminished without wheeze or rhonchi, RA, no accessory muscle use or cough noted ABD - Soft. Bowel sounds are normal. No distention. No tenderness EXTREM-no edema BLE calves, nontender NEURO- Awake and alert, follows commands. Objective Intake and Output I&O - Last 24 Hours: Intake & Output 09/24/23 09/25/23 09/25/23 23:59 07:59 15:59 Intake Total 1150 / 3670 240 / 240 Output Total 1400 / 3300 1200 / 1200 Balance -250 / 370 -960 / -960 Weight 98.7 kg Labs 09/23/23 18:20 09/25/23 04:57 Imaging and Cardiology Chest x-ray: Additional comments: CXR from today was reviewed and shows new bibasilar infiltrates/atlectasis, moreso on the right Assessment/Plan Assessment/Plan (1) Hypoxia: Plan: For chest x-ray showing new bibasilar infiltrates, likely due to atelectasis. No signs or symptoms suggesting acute pneumonic process at this point with normal white blood cell count and afebrile. I will hold off on antibiotics for now, check a procalcitonin level and reevaluate accordingly. At this send there is prominence to his regimen. Resume obstructive sleep apnea therapy. (2) HIMA (obstructive sleep apnea): Plan: Recently has been noncompliant with his BiPAP at home due to recent surgery. Developed hypoxia overnight likely related to the above. We will start an auto titrating CPAP. The patient was advised to bring his homeBiPAP machine to resume it during his hospitalization. (3) Suicide attempt: Plan: Suicide attempt -with clonazepam and lurasidone Patient's mental status significantly better, will await psychiatry (4) Overdose: Plan: Suicide attempt -with clonazepam and lurasidone Patient's mental status significantly better, will await psychiatry (5) Seizure disorder: Plan: seizure precautions. 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 Procedures XR NECK SOFT TISSUE 2V AP/LAT RADIOLOGIC EXAMINATION NECK SOFT TISSUE Neur Epilepsy Main [address] [place] [address] Xr Imaging Referral ID Status Reason Start Date Expiration Date V isits Requested Visits Authorized [id number] Closed Auto-Generate d Referral 01/06/2022 02/05/2023 1 1 [facility] for referral (narrative)* Diagnostic Procedure Only (Routine) - Closed Specialty Diagnoses / Procedures Referred By Contac t Referred To Contact XR IMAGING Diagnoses 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 Procedures XR NECK SOFT TISSUE 2V AP/LAT RADIOLOGIC EXAMINATION NECK SOFT TISSUE Neur Epilepsy Main [address] [place] [address] Xr Imaging Referral ID Status Reason Start Date Expiration Date V isits Requested Visits Authorized [id number] Closed Auto-Generate d Referral 01/06/2022 02/05/2023 1 1 [facility] for referral (narrative)* Diagnostic Procedure Only (Routine) - Pending Review Specialty Diagnoses / Procedures Referred By Contac t Referred To Contact XR IMAGING Diagnoses Preoperative testing Procedures XR NECK SOFT TISSUE 2V AP/LAT RADIOLOGIC EXAMINATION NECK SOFT TISSUE Aida Ervin PA-C [email or web address] [place] [id number] Xr Imaging [place] [address] Referral ID Status Reason Start Date Expiration Date Visits Requested Visits Authorized [id number] Pending Review Auto-Generat ed Referral 08/05/2023 09/03/2024 1 1 * Consult, Test, Treat (Routine) - Authorized Specialty Diagnoses / Procedures Referred By Contac t Referred To Contact Diagnoses Preoperative testing Partial epilepsy with impairment of consciousness, intractable (HCC) Procedures REFER TO PACC - PRE ANESTHESIA CONSULTATION CLINIC OFFICE/OUTPATIENT [facility] 60 MINUTES Aida Ervin PA-C [address] [place] [address] Referral ID Status Reason Start Date Expiration Date Visits Requested Visits Authorized [id number] Authorized PCP Requested Referral 08/05/2023 08/04/2024 1 1 [facility] for referral (narrative)* Outpatient Procedure (Routine) - Closed Specialty Diagnoses / Procedures Referred By Contac t Referred To Contact [facility] [place] Diagnoses Pre-op evaluation Procedures ECG COMPLETE ECG ROUTINE ECG W/LEAST 12 LDS W/I&R Jojo Nayak PA-C [address] [address] [facility] [address] [place] [address] Referral ID Status Reason Start Date Expiration Date V isits Requested Visits Authorized [id number] Closed Auto-Generate d Referral 08/26/2023 08/25/2024 1 1 T [facility] for referral (narrative)* Diagnostic Procedure Only (Routine) - Closed Specialty Diagnoses / Procedures Referred By Jaiden small Referred To Contact XR IMAGING Diagnoses Preoperative testing Procedures XR NECK SOFT TISSUE 2V AP/LAT RADIOLOGIC EXAMINATION NECK SOFT TISSUE Aida Ervin PA-C [address] [place] [address] [place] [id number] Referral ID Status Reason Start Date Expiration Date V isits Requested Visits Authorized [id number] Closed Auto-Generate d Referral 08/05/2023 09/03/2024 1 1 [facility] Summary Purpose Family History No Family History Records Found Relationship Condition Age at Onset Recorded Date/T pan father Myocardial infarction Unknown Advance Directives No Advanced Directives Records FoundDocuments on File Type Date Recorded Patient Manager Social Expl anation Advance Directive(s) 09/21/2020 11:55 AM Advance Directive(s) 06/20/2020 12:31 PM Advance Directive(s) 05/12/2019 11:28 AM Advance Directive(s) 05/09/2019 11:17 AM Advance Directive(s) 02/03/2018 11:54 AM Advance Directive(s) 04/08/2016 9:04 PM Advance Directive(s) 03/31/2016 8:54 AM Advance Directive(s) 03/26/2016 2:09 PM Documents on File Type Date Recorded Patient Manager Social Expl anation Advance Directive(s) 09/21/2020 11:55 AM [...] remission (HCC) Procedures CONSULT TO PSYCHOLOGY OFFICE/OUTPATIENT [facility] 60-74 MINUTES Lino Mendiola MD [address] [place] [address] Referral ID Status Reason Start Date Expiration Date Visits Requested Visits Authorized [id number] Pending Review PCP Requested Referral 08/20/2021 08/20/2022 1 1 Specialty Diagnoses / Procedures Referred By Contac t Referred To Contact Diagnoses Partial epilepsy with impairment of consciousness, intractable (HCC) Chronic nonintractable headache, unspecified headache type Procedures CONSULT TO HEADACHE CLINIC OFFICE/OUTPATIENT [facility] 60-74 MINUTES Susannah Becker PA-C [address] [place] [address] Referral ID Status Reason Start Date Expiration Date Visits Requested Visits Authorized [id number] Authorized PCP Requested Referral 07/15/2022 07/15/2023 1 1 Specialty Diagnoses / Procedures Referred By Contac t Referred To Contact Neurosurgery Diagnoses Partial epilepsy with impairment of consciousness, intractable (HCC) Procedures CONSULT TO NEUROSURGERY OFFICE/OUTPATIENT [facility] MDM 60 MINUTES Inez Cordero PA-C [address] [place] [address] Referral ID Status Reason Start Date Expiration Date Visits Requested Visits Authorized [id number] Authorized PCP Requested Referral 08/03/2023 08/02/2024 1 1 Specialty Diagnoses / Procedures Referred By Contjaime t Referred To Contact Diagnoses Chronic migraine without aura without status migrainosus, not intractable Procedures CONSULT TO HEADACHE CLINIC OFFICE/OUTPATIENT [facility] MDM 60 MINUTES Inez Cordero PA-C [address] [place] [address] Referral ID Status Reason Start Date Expiration Date Visits Requested Visits Authorized [id number] Authorized PCP Requested Referral 02/01/2024 01/31/2025 1 1 Chief Complaint and Reason for Visit Chief Complaint L leg pain post-op N KI Chief Complaint BH Overdose Reason for Visit Overdose Suicide attempt Chief Complaint BH Overdose Overdose Overdose Reason for Visit Hypoxia HIMA (obstructive sleep apnea) Overdose Seizure disorder Suicide attempt Additional Source Comments (unrecognized sect ion and [...] CREATED AUTHOR AUTHOR'S ORGANIZ ATION 07/31/2022 [facility] DATE CREATED AUTHOR AUTHOR'S ORGANIZ ATION 12/30/2022 [facility] DATE CREATED AUTHOR AUTHOR'S ORGANIZ ATION 04/09/2023 [facility] DATE CREATED AUTHOR AUTHOR'S ORGANIZ ATION 06/09/2023 [facility] DATE CREATED AUTHOR AUTHOR'S ORGANIZ ATION 06/25/2023 [facility] DATE CREATED AUTHOR AUTHOR'S ORGANIZ ATION 07/18/2023 [facility] DATE CREATED AUTHOR AUTHOR'S ORGANIZ ATION 12/05/2023 [facility] DATE CREATED AUTHOR AUTHOR'S ORGANIZ ATION 01/20/2024 [facility] DATE CREATED AUTHOR AUTHOR'S ORGANIZ ATION 02/23/2024 [facility] DATE CREATED AUTHOR AUTHOR'S ORGANIZ ATION 03/18/2024 [facility] DATE CREATED AUTHOR AUTHOR'S ORGANIZ ATION 03/24/2024 [facility] Source Comments (unrecognize d section and content) In the event this informatio n is protected by the Federal Confidentiality of Alcohol and Drug Abuse Patient Records regulations: The Federal rules restrict any use of the information to criminally investigate or prosecute any alcohol or drug abuse patient[facility] the event this information is protected by the Federal Confidentiality of Alcohol and Drug Abuse Patient Records regulations: The Federal rules restrict any use of the information to criminally investigate or prosecute any alcohol or drug abuse patient.[facility] HospitalIn the event this information is protected by the Federal Confidentiality of Alcohol and Drug Abuse Patient Records regulations: The Federal rules restrict any use of the information to criminally investigate or prosecute any alcohol or drug abuse patient.[facility] HospitalIn the event this information is protected by the Federal Confidentiality of Alcohol and Drug Abuse Patient Records regulations: The Federal rules restrict any use of the information to criminally investigate or prosecute any alcohol or drug abuse patient.[facility] HospitalIn the event this information is protected by the Federal Confidentiality of Alcohol and Drug Abuse Patient Records regulations: The Federal rules restrict any use of the information to criminally investigate or prosecute any alcohol or drug abuse patient.[facility] HospitalIn the event this information is protected by the Federal Confidentiality of Alcohol and Drug Abuse Patient Records regulations: The Federal rules restrict any use of the information to criminally investigate or prosecute any alcohol or drug abuse patient.[facility] HospitalIn the event this information is protected by the Federal Confidentiality of Alcohol and Drug Abuse Patient Records regulations: The Federal rules restrict any use of the information to criminally investigate or prosecute any alcohol or drug abuse patient.[facility] HospitalIn the event this information is protected by the Federal Confidentiality of Alcohol and Drug Abuse Patient Records regulations: The Federal rules restrict any use of the information to criminally investigate or prosecute any alcohol or drug abuse patient.[facility] HospitalIn the event this information is protected by the Federal Confidentiality of Alcohol and Drug Abuse Patient Records regulations: The Federal rules restrict any use of the information to criminally investigate or prosecute any alcohol or drug abuse patient.[facility] HospitalIn the event this information is protected by the Federal Confidentiality of Alcohol and Drug Abuse Patient Records regulations: The Federal rules restrict any use of the information to criminally investigate or prosecute any alcohol or drug abuse patient.[facility] HospitalIn the event this information is protected by the Federal Confidentiality of Alcohol and Drug Abuse Patient Records regulations: The Federal rules restrict any use of the information to criminally investigate or prosecute any alcohol or drug abuse patient.[facility] HospitalIn the event this information is protected by the Federal Confidentiality of Alcohol and Drug Abuse Patient Records regulations: The Federal rules restrict any use of the information to criminally investigate or prosecute any alcohol or drug abuse patient.[facility] HospitalIn the event this information is protected by the Federal Confidentiality of Alcohol and Drug Abuse Patient Records regulations: The Federal rules restrict any use of the information to criminally investigate or prosecute any alcohol or drug abuse patient.[facility] HospitalIn the event this information is protected by the Federal Confidentiality of Alcohol and Drug Abuse Patient Records regulations: The Federal rules restrict any use of the information to criminally investigate or prosecute any alcohol or drug abuse patient.[facility] HospitalIn the event this information is protected by the Federal Confidentiality of Alcohol and Drug Abuse Patient Records regulations: The Federal rules restrict any use of the information to criminally investigate or prosecute any alcohol or drug abuse patient.[facility] HospitalIn the event this information is protected by the Federal Confidentiality of Alcohol and Drug Abuse Patient Records regulations: The Federal rules restrict any use of the information to criminally investigate or prosecute any alcohol or drug abuse patient.[facility] HospitalIn the event this information is protected by the Federal Confidentiality of Alcohol and Drug Abuse Patient Records regulations: The Federal rules restrict any use of the information to criminally investigate or prosecute any alcohol or drug abuse patient.[facility] HospitalIn the event this information is protected by the Federal Confidentiality of Alcohol and Drug Abuse Patient Records regulations: The Federal rules restrict any use of the information to criminally investigate or prosecute any alcohol or drug abuse patient.[facility] HospitalIn the event this information is protected by the Federal Confidentiality of Alcohol and Drug Abuse Patient Records regulations: The Federal rules restrict any use of the information to criminally investigate or prosecute any alcohol or drug abuse patient.[facility] HospitalIn the event this information is protected by the Federal Confidentiality of Alcohol and Drug Abuse Patient Records regulations: The Federal rules restrict any use of the information to criminally investigate or prosecute any alcohol or drug abuse patient.[facility] HospitalIn the event this information is protected by the Federal Confidentiality of Alcohol and Drug Abuse Patient Records regulations: The Federal rules restrict any use of the information to criminally investigate or prosecute any alcohol or drug abuse patient.[facility] HospitalIn the event this information is protected by the Federal Confidentiality of Alcohol and Drug Abuse Patient Records regulations: The Federal rules restrict any use of the information to criminally investigate or prosecute any alcohol or drug abuse patient.[facility] HospitalIn the event this information is protected by the Federal Confidentiality of Alcohol and Drug Abuse Patient Records regulations: The Federal rules restrict any use of the information to criminally investigate or prosecute any alcohol or drug abuse patient.[facility] HospitalIn the event this information is protected by the Federal Confidentiality of Alcohol and Drug Abuse Patient Records regulations: The Federal rules restrict any use of the information to criminally investigate or prosecute any alcohol or drug abuse patient.[facility] HospitalIn the event this information is protected by the Federal Confidentiality of Alcohol and Drug Abuse Patient Records regulations: The Federal rules restrict any use of the information to criminally investigate or prosecute any alcohol or drug abuse patient.[facility] HospitalIn the event this information is protected by the Federal Confidentiality of Alcohol and Drug Abuse Patient Records regulations: The Federal rules restrict any use of the information to criminally investigate or prosecute any alcohol or drug abuse patient.[facility] HospitalIn the event this information is protected by the Federal Confidentiality of Alcohol and Drug Abuse Patient Records regulations: The Federal rules restrict any use of the information to criminally investigate or prosecute any alcohol or drug abuse patient.[facility] HospitalIn the event this information is protected by the Federal Confidentiality of Alcohol and Drug Abuse Patient Records regulations: The Federal rules restrict any use of the information to criminally investigate or prosecute any alcohol or drug abuse patient.[facility] HospitalIn the event this information is protected by the Federal Confidentiality of Alcohol and Drug Abuse Patient Records regulations: The Federal rules restrict any use of the information to criminally investigate or prosecute any alcohol or drug abuse patient.[facility] HospitalIn the event this information is protected by the Federal Confidentiality of Alcohol and Drug Abuse Patient Records regulations: The Federal rules restrict any use of the information to criminally investigate or prosecute any alcohol or drug abuse patient.[facility] HospitalIn the event this information is protected by the Federal Confidentiality of Alcohol and Drug Abuse Patient Records regulations: The Federal rules restrict any use of the information to criminally investigate or prosecute any alcohol or drug abuse patient.[facility] HospitalIn the event this information is protected by the Federal Confidentiality of Alcohol and Drug Abuse Patient Records regulations: The Federal rules restrict any use of the information to criminally investigate or prosecute any alcohol or drug abuse patient.[facility] HospitalIn the event this information is protected by the Federal Confidentiality of Alcohol and Drug Abuse Patient Records regulations: The Federal rules restrict any use of the information to criminally investigate or prosecute any alcohol or drug abuse patient.[facility] HospitalIn the event this information is protected by the Federal Confidentiality of Alcohol and Drug Abuse Patient Records regulations: The Federal rules restrict any use of the information to criminally investigate or prosecute any alcohol or drug abuse patient.[facility] HospitalIn the event this information is protected by the Federal Confidentiality of Alcohol and Drug Abuse Patient Records regulations: The Federal rules restrict any use of the information to criminally investigate or prosecute any alcohol or drug abuse patient.[facility] HospitalIn the event this information is protected by the Federal Confidentiality of Alcohol and Drug Abuse Patient Records regulations: The Federal rules restrict any use of the information to criminally investigate or prosecute any alcohol or drug abuse patient.[facility] HospitalIn the event this information is protected by the Federal Confidentiality of Alcohol and Drug Abuse Patient Records regulations: The Federal rules restrict any use of the information to criminally investigate or prosecute any alcohol or drug abuse patient.[facility] HospitalIn the event this information is protected by the Federal Confidentiality of Alcohol and Drug Abuse Patient Records regulations: The Federal rules restrict any use of the information to criminally investigate or prosecute any alcohol or drug abuse patient.[facility] HospitalIn the event this information is protected by the Federal Confidentiality of Alcohol and Drug Abuse Patient Records regulations: The Federal rules restrict any use of the information to criminally investigate or prosecute any alcohol or drug abuse patient.[facility] HospitalIn the event this information is protected by the Federal Confidentiality of Alcohol and Drug Abuse Patient Records regulations: The Federal rules restrict any use of the information to criminally investigate or prosecute any alcohol or drug abuse patient.[facility] HospitalIn the event this information is protected by the Federal Confidentiality of Alcohol and Drug Abuse Patient Records regulations: The Federal rules restrict any use of the information to criminally investigate or prosecute any alcohol or drug abuse patient.[facility] HospitalIn the event this information is protected by the Federal Confidentiality of Alcohol and Drug Abuse Patient Records regulations: The Federal rules restrict any use of the information to criminally investigate or prosecute any alcohol or drug abuse patient.[facility] HospitalIn the event this information is protected by the Federal Confidentiality of Alcohol and Drug Abuse Patient Records regulations: The Federal rules restrict any use of the information to criminally investigate or prosecute any alcohol or drug abuse patient.[facility] HospitalIn the event this information is protected by the Federal Confidentiality of Alcohol and Drug Abuse Patient Records regulations: The Federal rules restrict any use of the information to criminally investigate or prosecute any alcohol or drug abuse patient.[facility] HospitalIn the event this information is protected by the Federal Confidentiality of Alcohol and Drug Abuse Patient Records regulations: The Federal rules restrict any use of the information to criminally investigate or prosecute any alcohol or drug abuse patient.[facility] HospitalIn the event this information is protected by the Federal Confidentiality of Alcohol and Drug Abuse Patient Records regulations: The Federal rules restrict any use of the information to criminally investigate or prosecute any alcohol or drug abuse patient.[facility] HospitalIn the event this information is protected by the Federal Confidentiality of Alcohol and Drug Abuse Patient Records regulations: The Federal rules restrict any use of the information to criminally investigate or prosecute any alcohol or drug abuse patient.[facility] HospitalIn the event this information is protected by the Federal Confidentiality of Alcohol and Drug Abuse Patient Records regulations: The Federal rules restrict any use of the information to criminally investigate or prosecute any alcohol or drug abuse patient.[facility] HospitalIn the event this information is protected by the Federal Confidentiality of Alcohol and Drug Abuse Patient Records regulations: The Federal rules restrict any use of the information to criminally investigate or prosecute any alcohol or drug abuse patient.[facility] HospitalIn the event this information is protected by the Federal Confidentiality of Alcohol and Drug Abuse Patient Records regulations: The Federal rules restrict any use of the information to criminally investigate or prosecute any alcohol or drug abuse patient.[facility] HospitalIn the event this information is protected by the Federal Confidentiality of Alcohol and Drug Abuse Patient Records regulations: The Federal rules restrict any use of the information to criminally investigate or prosecute any alcohol or drug abuse patient.[facility] HospitalIn the event this information is protected by the Federal Confidentiality of Alcohol and Drug Abuse Patient Records regulations: The Federal rules restrict any use of the information to criminally investigate or prosecute any alcohol or drug abuse patient.[facility] HospitalIn the event this information is protected by the Federal Confidentiality of Alcohol and Drug Abuse Patient Records regulations: The Federal rules restrict any use of the information to criminally investigate or prosecute any alcohol or drug abuse patient.[facility] HospitalIn the event this information is protected by the Federal Confidentiality of Alcohol and Drug Abuse Patient Records regulations: The Federal rules restrict any use of the information to criminally investigate or prosecute any alcohol or drug abuse patient.[facility] HospitalIn the event this information is protected by the Federal Confidentiality of Alcohol and Drug Abuse Patient Records regulations: The Federal rules restrict any use of the information to criminally investigate or prosecute any alcohol or drug abuse patient.[facility] HospitalIn the event this information is protected by the Federal Confidentiality of Alcohol and Drug Abuse Patient Records regulations: The Federal rules restrict any use of the information to criminally investigate or prosecute any alcohol or drug abuse patient.[facility] HospitalIn the event this information is protected by the Federal Confidentiality of Alcohol and Drug Abuse Patient Records regulations: The Federal rules restrict any use of the information to criminally investigate or prosecute any alcohol or drug abuse patient.[facility] HospitalIn the event this information is protected by the Federal Confidentiality of Alcohol and Drug Abuse Patient Records regulations: The Federal rules restrict any use of the information to criminally investigate or prosecute any alcohol or drug abuse patient.[facility] HospitalIn the event this information is protected by the Federal Confidentiality of Alcohol and Drug Abuse Patient Records regulations: The Federal rules restrict any use of the information to criminally investigate or prosecute any alcohol or drug abuse patient.[facility] HospitalIn the event this information is protected by the Federal Confidentiality of Alcohol and Drug Abuse Patient Records regulations: The Federal rules restrict any use of the information to criminally investigate or prosecute any alcohol or drug abuse patient.[facility] HospitalIn the event this information is protected by the Federal Confidentiality of Alcohol and Drug Abuse Patient Records regulations: The Federal rules restrict any use of the information to criminally investigate or prosecute any alcohol or drug abuse patient.[facility] HospitalIn the event this information is protected by the Federal Confidentiality of Alcohol and Drug Abuse Patient Records regulations: The Federal rules restrict any use of the information to criminally investigate or prosecute any alcohol or drug abuse patient.[facility] HospitalIn the event this information is protected by the Federal Confidentiality of Alcohol and Drug Abuse Patient Records regulations: The Federal rules restrict any use of the information to criminally investigate or prosecute any alcohol or drug abuse patient.[facility] HospitalIn the event this information is protected by the Federal Confidentiality of Alcohol and Drug Abuse Patient Records regulations: The Federal rules restrict any use of the information to criminally investigate or prosecute any alcohol or drug abuse patient.[facility] HospitalIn the event this information is protected by the Federal Confidentiality of Alcohol and Drug Abuse Patient Records regulations: The Federal rules restrict any use of the information to criminally investigate or prosecute any alcohol or drug abuse patient.[facility] HospitalIn the event this information is protected by the Federal Confidentiality of Alcohol and Drug Abuse Patient Records regulations: The Federal rules restrict any use of the information to criminally investigate or prosecute any alcohol or drug abuse patient.[facility] HospitalIn the event this information is protected by the Federal Confidentiality of Alcohol and Drug Abuse Patient Records regulations: The Federal rules restrict any use of the information to criminally investigate or prosecute any alcohol or drug abuse patient.[facility] HospitalIn the event this information is protected by the Federal Confidentiality of Alcohol and Drug Abuse Patient Records regulations: The Federal rules restrict any use of the information to criminally investigate or prosecute any alcohol or drug abuse patient.[facility] HospitalIn the event this information is protected by the Federal Confidentiality of Alcohol and Drug Abuse Patient Records regulations: The Federal rules restrict any use of the information to criminally investigate or prosecute any alcohol or drug abuse patient.[facility] HospitalIn the event this information is protected by the Federal Confidentiality of Alcohol and Drug Abuse Patient Records regulations: The Federal rules restrict any use of the information to criminally investigate or prosecute any alcohol or drug abuse patient.[facility] HospitalIn the event this information is protected by the Federal Confidentiality of Alcohol and Drug Abuse Patient Records regulations: The Federal rules restrict any use of the information to criminally investigate or prosecute any alcohol or drug abuse patient.[facility] HospitalIn the event this information is protected by the Federal Confidentiality of Alcohol and Drug Abuse Patient Records regulations: The Federal rules restrict any use of the information to criminally investigate or prosecute any alcohol or drug abuse patient.[facility] HospitalIn the event this information is protected by the Federal Confidentiality of Alcohol and Drug Abuse Patient Records regulations: The Federal rules restrict any use of the information to criminally investigate or prosecute any alcohol or drug abuse patient.[facility] HospitalIn the event this information is protected by the Federal Confidentiality of Alcohol and Drug Abuse Patient Records regulations: The Federal rules restrict any use of the information to criminally investigate or prosecute any alcohol or drug abuse patient.[facility] HospitalIn the event this information is protected by the Federal Confidentiality of Alcohol and Drug Abuse Patient Records regulations: The Federal rules restrict any use of the information to criminally investigate or prosecute any alcohol or drug abuse patient.[facility] HospitalIn the event this information is protected by the Federal Confidentiality of Alcohol and Drug Abuse Patient Records regulations: The Federal rules restrict any use of the information to criminally investigate or prosecute any alcohol or drug abuse patient.[facility] HospitalIn the event this information is protected by the Federal Confidentiality of Alcohol and Drug Abuse Patient Records regulations: The Federal rules restrict any use of the information to criminally investigate or prosecute any alcohol or drug abuse patient.[facility] HospitalIn the event this information is protected by the Federal Confidentiality of Alcohol and Drug Abuse Patient Records regulations: The Federal rules restrict any use of the information to criminally investigate or prosecute any alcohol or drug abuse patient.[facility] HospitalIn the event this information is protected by the Federal Confidentiality of Alcohol and Drug Abuse Patient Records regulations: The Federal rules restrict any use of the information to criminally investigate or prosecute any alcohol or drug abuse patient.[facility] HospitalIn the event this information is protected by the Federal Confidentiality of Alcohol and Drug Abuse Patient Records regulations: The Federal rules restrict any use of the information to criminally investigate or prosecute any alcohol or drug abuse patient.[facility] HospitalIn the event this information is protected by the Federal Confidentiality of Alcohol and Drug Abuse Patient Records regulations: The Federal rules restrict any use of the information to criminally investigate or prosecute any alcohol or drug abuse patient.[facility] HospitalIn the event this information is protected by the Federal Confidentiality of Alcohol and Drug Abuse Patient Records regulations: The Federal rules restrict any use of the information to criminally investigate or prosecute any alcohol or drug abuse patient.[facility] HospitalIn the event this information is protected by the Federal Confidentiality of Alcohol and Drug Abuse Patient Records regulations: The Federal rules restrict any use of the information to criminally investigate or prosecute any alcohol or drug abuse patient.[facility] Reason for Visit (unrecogniz ed section and content) Reason Comments Follow Up Reason Comments Seizures Reason Comments Appointment Reason Comments Bipolar Disorder Reason Comments Patient Update Vns issue Reason Comments Follow Up VNS Visit Reason Comments Radio Main J1 Specialty Diagnoses / Procedures Referred By Jaiden small Referred To Contact XR IMAGING Diagnoses 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 Procedures XR NECK SOFT TISSUE 2V AP/LAT RADIOLOGIC EXAMINATION NECK SOFT TISSUE Neur Epilepsy [address] [place] [address] Xr Imaging Referral ID Status Reason Start Date Expiration Date V isits Requested Visits Authorized [id number] Closed Auto-Generate d Referral 01/06/2022 02/05/2023 1 [...] Update Specialty Diagnoses / Procedures [facility] Referred To Contact ADULT PSYCHIATRY Diagnoses H&P Procedures VIDEO PSYC/PSYL EST Michael Cordoba, CULLED FRUIT PACKER.SUPERVISOR [employer] [address] [place] [address] Josi Queen PA-C [address] [place] [address] Referral ID Status Reason Start Date Expiration Date V isits Requested Visits Authorized [id number] Authorized 05/12/2023 05/17/2024 99 99 Specialty Diagnoses / Procedures Referred By Contac t Referred To Contact ADULT PSYCHIATRY Diagnoses NEW DBT IOP Procedures VIDEO PSYC/PSYL GRP (ZOOM) Mya Tena, CULLED FRUIT PACKER.SUPERVISOR [employer] [address] [place] [address] Psyc Adult [facility] [address] [place] [address] Referral ID Status Reason Start Date Expiration Date V isits Requested Visits Authorized [id number] Authorized 05/13/2023 05/17/2024 99 99 Reason Comments Medication Authorization Reason Comments Epilepsy 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 Up 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 - Other Reason Comments Schedule Surgery VNS change Reason Comments Forms bmv Reason Comments Other Surgery Time, Transp ortation Reason Comments Forms BMV Reason Comments Pre-Op Visit Reason Comments Pre-Op Exam Specialty Diagnoses / Procedures Referred By Contac t Referred To Contact Neurosurgery Diagnoses Partial epilepsy with impairment of consciousness, intractable (HCC) Procedures CONSULT TO NEUROSURGERY OFFICE/OUTPATIENT NEW HIGH MDM 60 MINUTES Inez Cordero PA-C [address] [facility] [address] [place] [address] Referral ID Status Reason Start Date Expiration Date V isits Requested Visits Authorized [id number] Closed PCP Requested Referral 08/03/2023 08/02/2024 1 1 Reason Comments Radio Gen A21 Specialty Diagnoses / Procedures Referred By Contac t Referred To Contact XR IMAGING Diagnoses Preoperative testing Procedures XR NECK SOFT TISSUE 2V AP/LAT RADIOLOGIC EXAMINATION NECK SOFT TISSUE Aida Ervin PA-C [address] [place] [address] Xr Imaging [place] [address] Referral ID Status Reason Start Date Expiration Date V isits Requested Visits Authorized [id number] Closed Auto-Generate d Referral 08/05/2023 09/03/2024 1 1 Reason Comments General Stitch Popping Out O f Neck Reason Onset Date Comments Refill Request 10/13/2023 Reason Comments Social Work Services Reason Onset Date Comments Refill Request 11/01/2023 Reason Comments Post-Op Visit Specialty Diagnoses / Procedures Referred By Contac t Referred To Contact Physical Therapy Diagnoses Low back pain, unspecified Other chronic pain Pain in thoracic spine Procedures [place] PHYSICAL THERAPY EVALUATION LOW COMPLEX 20 MINS Chester Greco MD [address] [place] [address] Shawnee Jonas PT Referral ID Status Reason Start Date Expiration Date V isits Requested Visits Authorized [id number] Authorized 02/01/2024 07/30/2024 30 30 Reason Onset Date Comments re: PT 03/02/2024 I had to contact re: SAM/OZZY for PT today and he said he is in transition to a new doctor and we should be receiving a new referral from him. He is cancelling out his 3 remaining; he noted he would like to proceed w/ PT once new referral has been obtained. Reason Comments Letter Letter for work Care Teams (unrecognized sec tion and content) Team Status: Active Member Role Status Dates Uriel Nunez MD Primary Care Provider Active Team Status: Active Member Role Status Dates Uriel Nunez MD Primary Care Provider Active Start: September 22, 2023 Taiwo Trujillo MD Attending Provider Active Start: September 22, 2023 Team Status: Active Member Role Status Dates Uriel Nunez MD Primary Care Provider Active Start: September 23, 2023 Nirmal Hernandez DO Emergency Provider Active Start: September 23, 2023 Sherif Francis MD Admit Provider, Attending Provider Active Start: September 23, 2023 Sustainment Logistics Analyst Relationship Specialty Start Date End Date Uriel Nunez MD PCP - General Family Practice 01/02/11 [employer]ment Logistics Analyst Relationship Specialty Start Date End Date Uriel Nunez MD PCP - General Family Practice 01/02/11 Sustainment Logistics Analyst Relationship Specialty Start Date End Date Uriel Nunez MD PCP - General Family Practice 01/02/11 Sustainment Logistics Analyst Relationship Specialty Start Date End Date Uriel Nunez MD PCP - General Family Practice 01/02/11 Sustainment Logistics Analyst Relationship Specialty Start Date End Date Uriel Nunez MD PCP - General Family Practice 01/02/11 Sustainment Logistics Analyst Relationship Specialty Start Date End Date Uriel Nunez MD PCP - General Family Practice 01/02/11 Sustainment Logistics Analyst Relationship Specialty Start Date End Date Uriel Nunez MD PCP - General Family Practice 01/02/11 Sustainment Logistics Analyst Relationship Specialty Start Date End Date Uriel Nunez MD PCP - General Family Practice 01/02/11 Sustainment Logistics Analyst Relationship Specialty Start Date End Date Uriel Nunez MD PCP - General Family Practice 01/02/11 Sustainment Logistics Analyst Relationship Specialty Start Date End Date Uriel Nunez MD PCP - General Family Medicine 01/02/11 Sustainment Logistics Analyst Relationship Specialty Start Date End Date Uriel Nunez MD PCP - General Family Medicine 01/02/11 Sustainment Logistics Analyst Relationship Specialty Start Date End Date Uriel Nunez MD PCP - General Family Medicine 01/02/11 Sustainment Logistics Analyst Relationship Specialty Start Date End Date Uriel Nunez MD PCP - General Family Medicine 01/02/11 Sustainment Logistics Analyst Relationship Specialty Start Date End Date Uriel Nunez MD PCP - General Family Medicine 01/02/11 Sustainment Logistics Analyst Relationship Specialty Start Date End Date Uriel Nunez MD PCP - General Family Medicine 01/02/11 Sustainment Logistics Analyst Relationship Specialty Start Date End Date Uriel Nunez MD PCP - General Family Medicine 01/02/11 Team Status: Inactive Member Role Status Dates Uriel Nunez MD Primary Care Provider Active Saad Mir DO Emergency Provider Active S[employer]ment Log[employer] Analyst Relationship Specialty Start Date End Date Uriel Nunez MD PCP - General Family Medicine 01/02/11 Sustainment Logistics Analyst Relationship Specialty Start Date End Date Uriel Nunez MD PCP - General Family Medicine 01/02/11 Sustainment Logistics Analyst Relationship Specialty Start Date End Date Uriel Nunez MD PCP - General Family Medicine 01/02/11 Sustainment Logistics Analyst Relationship Specialty Start Date End Date Uriel Nunez MD PCP - General Family Medicine 01/02/11 Sustainment Logistics Analyst Relationship Specialty Start Date End Date Uriel Nunez MD PCP - General Family Medicine 01/02/11 Sustainment Logistics Analyst Relationship Specialty Start Date End Date Uriel Nunez MD PCP - General Family Medicine 01/02/11 Sustainment Logistics Analyst Relationship Specialty Start Date End Date Uriel Nunez MD PCP - General Family Medicine 01/02/11 Sustainment Logistics Analyst Relationship Specialty Start Date End Date Uriel Nunez MD PCP - General Family Medicine 01/02/11 Sustainment Logistics Analyst Relationship Specialty Start Date End Date Uriel Nunez MD PCP - General Family Medicine 01/02/11 Sustainment Logistics Analyst Relationship Specialty Start Date End Date Uriel Nunez MD PCP - General Family Medicine 01/02/11 Sustainment Logistics Analyst Relationship Specialty Start Date End Date Uriel Nunez MD PCP - General Family Medicine 01/02/11 Sustainment Logistics Analyst Relationship Specialty Start Date End Date Uriel Nunez MD PCP - General Family Medicine 01/02/11 Sustainment Logistics Analyst Relationship Specialty Start Date End Date Uriel Nunez MD PCP - General Family Medicine 01/02/11 Sustainment Logistics Analyst Relationship Specialty Start Date End Date Uriel Nunez MD PCP - General Family Medicine 01/02/11 Sustainment Logistics Analyst Relationship Specialty Start Date End Date Uriel Nunez MD PCP - General Family Medicine 01/02/11 Sustainment Logistics Analyst Relationship Specialty Start Date End Date Uriel Nunez MD PCP - General Family Medicine 01/02/11 Sustainment Logistics Analyst Relationship Specialty Start Date End Date Uriel Nunez MD PCP - General Family Medicine 01/02/11 [employer]ment Logistics Analyst Relationship Specialty Start Date End Date Uriel Nunez MD PCP - General Family Medicine 01/02/11 [employer]ment Logistics Analyst Relationship Specialty Start Date End Date Uriel Nunez MD PCP - General Family Medicine 01/02/11 Sustainment Logistics Analyst Relationship Specialty Start Date End Date Uriel Nunez MD PCP - General Family Medicine 01/02/11 Sustainment Logistics Analyst Relationship Specialty Start Date End Date Uriel Nunez MD PCP - General Family Medicine 01/02/11 Sustainment Logistics Analyst Relationship Specialty Start Date End Date Uriel Nunez MD PCP - General Family Medicine 01/02/11 Sustainment Logistics Analyst Relationship Specialty Start Date End Date Uriel Nunez MD PCP - General Family Medicine 01/02/11 Sustainment Logistics Analyst Relationship Specialty Start Date End Date Uriel Nunez MD PCP - General Family Medicine 01/02/11 Sustainment Logistics Analyst Relationship Specialty Start Date End Date Uriel Nunez MD PCP - General Family Medicine 01/02/11 Sustainment Logistics Analyst Relationship Specialty Start Date End Date Uriel Nunez MD PCP - General Family Medicine 01/02/11 Sustainment Logistics Analyst Relationship Specialty Start Date End Date Uriel Nunez MD PCP - General Family Medicine 01/02/11 Sustainment Logistics Analyst Relationship Specialty Start Date End Date Uriel Nunez MD PCP - General Family Medicine 01/02/11 Sustainment Logistics Analyst Relationship Specialty Start Date End Date Uriel Nunez MD PCP - General Family Medicine 01/02/11 S[employer]ment Logistics Analyst Relationship Specialty Start Date End Date Uriel Nunez MD PCP - General Family Medicine 01/02/11 Team Status: Active Member Role Status Dates Uriel Nunez MD Primary Care Provider Active Start: July 12, 2023 Jasmeet Sandra DO Attending Provider Active Sta rt: July 12, 2023 Team Status: Inactive Member Role Status Dates Uriel Nunez MD Primary Care Provider Active Start: September 23, 2023 End: September 26, 2023 Nirmal Hernandez , Emergency Provider Active Start: September 23, 2023 End: September 26, 2023 Sherif Francis MD Admit Provider Active S tart: September 23, 2023 End: September 26, 2023 Heide Alston APRN [facility]- Other Provider Active Start: September 23, 2023 End: September 26, 2023 Reginald Tang MD Other Provider Active Start: September 23, 2023 End: September 26, 2023 John Rodriguez MD Other Provider Active St art: September 23, 2023 End: September 26, 2023 Martin Dorado MD Other Provider Active Start: M 2023 End: September 26, 2023 Quintin Holt DO Other Provider Active Start: September 23, 2023 End: September 26, 2023 Jayesh Eldridge , DO Other Provider Active Start: September 23, 2023 End: September 26, 2023 Scott Monterroso MD Other Provider Active Start: M 2023 End: September 26, 2023 Rober Bonner MD Other Provider Activ e Start: September 23, 2023 End: September 26, 2023 Joselito Daily MD Other Provider Active Start: M 2023 End: September 26, 2023 Mary Calhoun MD Attending Provider Active S tart: September 23, 2023 End: September 26, 2023 Taiwo Trujillo MD Other Provider Active Start: September 23, 2023 End: September 26, 2023 Team Status: Active Member Role Status Dates Uriel Nunez MD Primary Care Provider Active Start: September 24, 2023 Nirmal Hernandez DO Emergency Provider Active Start: September 24, 2023 Sherif Francis MD Admit Provider Active S tart: September 24, 2023 Heide Alston APRN [facility]- Other Provider Active Start: September 24, 2023 Reginald Tang MD Attending Pr ovider, Other Provider Active Start: September 24, 2023 John Rodriguez MD Other Provider Active St art: September 24, 2023 Martin Doraod MD Other Provider Active Start: M ay 2023 Quintin Holt , DO Other Provider Active Start: September 24, 2023 Jayesh Eldridge , Other Provider Active Start: September 24, 2023 Scott Monterroso MD Other Provider Active Start: M ay 2023 Rober Bonner MD Other Provider Active Start: September 24, 2023 Joselito Daily MD Other Provider Active Start: M ay 2023 Mary Calhoun MD Other Provider Active Start : September 24, 2023 Team Status: Active Member Role Status Dates Uriel Nunez MD Primary Care Provider Active Start: September 25, 2023 Nirmal Hernandez , Emergency Provider Active Start: September 25, 2023 Sherif Francis MD Admit Provider Active S tart: September 25, 2023 Heide Alston APRN ACNP- Other Provider Active Start: September 25, 2023 Reginald Tang MD Other Provider Active Start: September 25, 2023 John Rodriguez MD Other Provider Active St art: September 25, 2023 Martin Dorado MD Other Provider Active Start: M ay 2023 Quintin Holt , DO Other Provider Active Start: September 25, 2023 Jayesh Eldridge , Other Provider Active Start: September 25, 2023 Scott Monterroso MD Other Provider Active Start: M ay 2023 Rober Bonner MD Other Provider Active Start: September 24 Joselito Daily MD Other Provider Active Start: M ay 2023 Mary Calhoun MD Other Provider Active Start : September 25, 2023 Taiwo Trujillo MD Attending Pro vider, Other Provider Active Start: September 25, 2023 Sustainment Logistics Analyst Relationship Specialty Start Date End Date Uriel Nunez MD PCP - General Family Medicine 01/02/11 Sustainment Logistics Analyst Relationship Specialty Start Date End Date Uriel Nunez MD PCP - General Family Medicine 01/02/11 Sustainment Logistics Analyst Relationship Specialty Start Date End Date Uriel Nunez MD PCP - General Family Medicine 01/02/11 Sustainment Logistics Analyst Relationship Specialty Start Date End Date Uriel Nunez MD PCP - General Family Medicine 01/02/11 Sustainment Logistics Analyst Relationship Specialty Start Date End Date Uriel Nunez MD PCP - General Family Medicine 01/02/11 Sustainment Logistics Analyst Relationship Specialty Start Date End Date Uriel Nunez MD PCP - General Family Medicine 01/02/11 Sustainment Logistics Analyst Relationship Specialty Start Date End Date Uriel Nunez MD PCP - General Family Medicine 01/02/11 Sustainment Logistics Analyst Relationship Specialty Start Date End Date Uriel Nunez MD [address] [place] [address] PCP - General Family Medicine 10/21/22 Sustainment Logistics Analyst Relationship Specialty Start Date End Date Uriel Nunez MD [address] [place] [address] PCP - General Family Medicine 10/21/22 Sustainment Logistics Analyst Relationship Specialty Start Date End Date Uriel Nunez MD [address] [place] [address] PCP - General Family Medicine 10/21/22 Sustainment Logistics Analyst Relationship Specialty Start Date End Date Uriel Nunez MD PCP - General Family Medicine 01/02/11 Sustainment Logistics Analyst Relationship Specialty Start Date End Date Uriel Nunez MD PCP - General Family Medicine 01/02/11 Sustainment Logistics Analyst Relationship Specialty Start Date End Date Uriel Nunez MD PCP - General Family Medicine 10/01/21 Sustainment Logistics Analyst Relationship Specialty Start Date End Date Uriel Nunez MD PCP - General Family [facility] 01/02/11 Sustainment Logistics Analyst Relationship Specialty Start Date End Date Uriel Nunez MD PCP - [facility] Family [facility] 01/02/11 Goals (unrecognized section and content) Goals [...] BE BASED ON THE PRIMARY CLINICAL RECORDS. [facility]. provides no warranty or guarantee of the accuracy or completeness of information in this document.
--- NOTE | 2024-03-26 18:26 | ECG_ITS ---
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
--- NOTE | 2024-03-26 18:26 | CT_ITS ---
[address] [address] Patient Name: AMEYA MEZA MRN: [id number] date: 1980 Sex: M Assigned Patient Location: ER Current Patient Location: ER Accession/Order Number: [id number] Exam Date: 03/26/2024 19:10 Report Date: 03/26/2024 20:33 At the request of: ROSEMARY EMEKS Procedure: CT head/brain wo con EXAMINATION: CT head/brain wo con, CT cervical spine wo con, 03/26/2024 7:10 PM EST HISTORY: Left-sided paresthesia of approximately 18 hours COMPARISON: 03/29/2023 TECHNIQUE: CT of the head without intravenous contrast. CT cervical spine without intravenous contrast. Dose reduction techniques were achieved by using automated exposure control and/or adjustment of mA and/or kV according to patient size and/or use of iterative reconstruction technique. FINDINGS: CT head: There is no evidence of acute intracranial hemorrhage, extra-axial collection, mass effect, midline shift, herniation or hydrocephalus. The ventricles, sulci and cisterns are age appropriate. The hernandez-white differentiation is intact. The mastoid air cells are clear. There is no evidence of skull fracture. The surrounding soft tissues and osseous structures are unremarkable. CT cervical spine: The cervical spine is in normal alignment. Vertebral body heights are normal without evidence of acute fracture. Intervertebral disc height loss and degenerative endplate change appears relatively mild without appreciable significant narrowing of the central canal or neural foramina. No prevertebral soft tissue swelling. Lung apices are clear. Partially visualized cervical lead on the left. Thyroid appears heterogeneous with probable subcentimeter nodules on the left. CT/CT head/brain wo con IMPRESSION: Head CT 1. No acute intracranial finding such as hemorrhage, mass effect, or hydrocephalus. Cervical spinal CT 1. No acute fracture or traumatic malalignment. 2. Mild spondylotic change. Electronically authenticated by: RACHEL QUAN Date: 03/26/2024 20:33
--- NOTE | 2024-03-26 18:27 | ED_ITS ---
HPI HPI - General Adult General Chief complaint: Weakness Stated complaint: LEFT SIDE NUMBNESS/TINGLING Time Seen by Provider: 03/26/24 18:11 Source: patient Mode of arrival: Wheelchair Limitations: no limitations History of Present Illness HPI narrative: 43-year-old male presents for 18-hour history of numbness and tingling on the left side of his face and his left arm and his left leg. It has been continuous. He states he has had a headache on and off and he has never had symptoms like this before. He states that when it first started he thought he was going to have a seizure but did not. He has a history of seizure disorder and is on Vimpat and has a vagal nerve stimulator. No symptoms on the right side Related Data Home Medications ?Medication ?Instructions ?Recorded ?Confirmed Phenergan 25 mg PO TID PRN nausea and 12/04/22 05/22/23 vomiting clonazepam 2 mg tablet 2 mg PO TID 12/05/22 07/11/23 cyproheptadine 4 mg tablet 4 mg PO Q12H 12/05/22 07/11/23 lacosamide 100 mg tablet 100 mg PO Q12H 12/05/22 07/11/23 quetiapine 50 mg tablet 50 mg PO TID PRN anxiety 12/05/22 07/11/23 rizatriptan 10 mg disintegrating See Rx Instructions PO .COMPLEX 12/05/22 07/11/23 tablet ([employer]) sertraline 100 mg tablet 200 mg PO Q24H 12/05/22 07/11/23 simvastatin 20 mg tablet 20 mg PO DAILY 12/05/22 07/11/23 albuterol sulfate 90 mcg/actuation 1 inh inhalation Q4H PRN shortness 01/19/23 07/11/23 aerosol inhaler of breath or wheezing fluticasone propionate 50 1 spray intranasal .QD 01/19/23 07/11/23 mcg/actuation nasal spray,suspension diclofenac sodium 75 mg 75 mg PO Q12H PRN pain 03/29/23 07/11/23 tablet,delayed release erenumab-aooe 140 mg/mL 140 mg subcut .MONTHLY 03/29/23 07/11/23 subcutaneous auto-injector (Aimovig Autoinjector) quetiapine 300 mg tablet 300 mg PO .QHS 03/29/23 07/11/23 lurasidone 40 mg tablet 80 mg PO DAILY 05/22/23 07/11/23 Previous Rx's ?Medication ?Instructions ?Recorded acetaminophen 300 mg-codeine 30 mg 1 tab PO Q6H PRN pain 3 days #14 05/22/23 tablet tabs Allergies Allergy/AdvReac Type Severity Reaction Status Date / Time desvenlafaxine (From Pristiq) Allergy Unknown Verified 03/29/23 04:57 keppra Allergy Unknown Uncoded 03/29/23 04:57 Opioid HPI Opioid Management Most Recent Opioid Data: Last Pain Scale 8 02/23/23 23:00 02/23/23 Ur Phencyclidine Scrn Negative (NEGATIVE) 03/29/23 11:15 03/18 07/10 Review of Systems ROS Narrative A ten point review of systems is negative except as noted above. [facility] Medical History (Updated 03/26/24 @ 18:45 by Chandler Sneed MD) PTSD (post-traumatic stress disorder) ?F43.10 - Post-traumatic stress disorder, unspecified (ICD-10) Migraine ?G43.909 - Migraine, unspecified, not intractable, without status migrainosus (ICD-10) HIMA (obstructive sleep apnea) ?G47.33 - Obstructive sleep apnea (adult) (pediatric) (ICD-10) Insomnia ?G47.00 - Insomnia, unspecified (ICD-10) GERD (gastroesophageal reflux disease) ?K21.9 - Gastro-esophageal reflux disease without esophagitis (ICD-10) Suicidal ideation ?R45.851 - Suicidal ideations (ICD-10) Bipolar 1 disorder ?F31.9 - Bipolar disorder, unspecified (ICD-10) Anxiety ?F41.9 - Anxiety disorder, unspecified (ICD-10) Respiratory failure requiring intubation ?J96.90 - Respiratory failure, unspecified, unspecified whether with hypoxia or hypercapnia (ICD-10) Depression ?F32.A - Depression, unspecified (ICD-10) Epilepsy ?G40.909 - Epilepsy, unspecified, not intractable, without status epilepticus (ICD-10) Surgical History (Updated 01/19/23 @ 23:52 by Karli Aguirre) 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 ?Z96.89 - Presence of other specified functional implants (ICD-10) Social History Smoking status: Never smoker Little interest or pleasure in doing things: not at all Feeling down, depressed, or hopeless: not at all Exam Narrative Exam Narrative: Nurses note and vital signs reviewed and patient is not hypoxic. General: The patient appears well and in no apparent distress. Patient is resting comfortably on cart. Skin: Warm, dry, no pallor noted. There is no rash noted. Head: Normocephalic, atraumatic Eye: Normal conjunctiva, no drainage, EOMI. PERRL Ears, Nose, Mouth, and Throat: oral mucosa is moist. Nares patent. Cardiovascular: Regular Rate and Rhythm Respiratory: Patient is in no distress, no accessory muscle use, lungs are clear to auscultation, no wheezing, rales or rhonchi Back: non-tender GI: Soft and nontender Musculoskeletal: The patient has no evidence of calf tenderness, no pitting edema, symmetrical pulses noted bilaterally Neurological: A&O x4, normal speech. Upper and lower extremity strength is 5 out of 5 and symmetric. Cranial nerves II through XII are intact except he reports numbness on the left side of his face. Psychiatric: Cooperative Constitutional Vital Signs, click to edit/add: Last Vital Signs Temp 98.3 F 03/26/24 18:13 Pulse 95 H 03/26/24 18:13 Resp 18 03/26/24 18:13 BP 150/90 H 03/26/24 18:13 Pulse Ox 99 03/26/24 18:13 O2 Del Method Room Air 03/26/24 18:13 Course Vital Signs Vital signs: Vital Signs Temperature 98.3 F 03/26/24 18:13 Pulse Rate 95 H 03/26/24 18:13 Respiratory Rate 18 03/26/24 18:13 Blood Pressure 150/90 H 03/26/24 18:13 Pulse Oximetry 99 03/26/24 18:13 Oxygen Delivery Method Room Air 03/26/24 18:13 Temperature 98.3 F 03/26/24 18:13 Pulse Rate 95 H 03/26/24 18:13 Respiratory Rate 18 03/26/24 18:13 Blood Pressure 150/90 H 03/26/24 18:13 Pulse Oximetry 99 03/26/24 18:13 Oxygen Delivery Method Room Air 03/26/24 18:13 Medical Decision Making MDM Narrative Medical decision making narrative: Tests are ordered including CT of C-spine and CT of brain and the patient is signed out to Dr. Weller at change of shift. Differential Diagnosis Differential Diagnosis: Stroke, paresthesia, cervical arthritis Discharge Plan Discharge Patient Disposition: Still a Patient
--- NOTE | 2024-03-26 18:32 | CT_ITS ---
[address] [address] Patient Name: AMEYA MEZA MRN: [id number] date: 1980 Sex: M Assigned Patient Location: ER Current Patient Location: ER Accession/Order Number: [id number] Exam Date: 03/26/2024 19:10 Report Date: 03/26/2024 20:33 At the request of: ROSEMARY MEEKS Procedure: CT cervical spine wo con EXAMINATION: CT head/brain wo con, CT cervical spine wo con, 03/26/2024 7:10 PM EST HISTORY: Left-sided paresthesia of approximately 18 hours COMPARISON: 03/29/2023 TECHNIQUE: CT of the head without intravenous contrast. CT cervical spine without intravenous contrast. Dose reduction techniques were achieved by using automated exposure control and/or adjustment of mA and/or kV according to patient size and/or use of iterative reconstruction technique. FINDINGS: CT head: There is no evidence of acute intracranial hemorrhage, extra-axial collection, mass effect, midline shift, herniation or hydrocephalus. The ventricles, sulci and cisterns are age appropriate. The hernandez-white differentiation is intact. The mastoid air cells are clear. There is no evidence of skull fracture. The surrounding soft tissues and osseous structures are unremarkable. CT cervical spine: The cervical spine is in normal alignment. Vertebral body heights are normal without evidence of acute fracture. Intervertebral disc height loss and degenerative endplate change appears relatively mild without appreciable significant narrowing of the central canal or neural foramina. No prevertebral soft tissue swelling. Lung apices are clear. Partially visualized cervical lead on the left. Thyroid appears heterogeneous with probable subcentimeter nodules on the left. CT/CT cervical spine wo con IMPRESSION: Head CT 1. No acute intracranial finding such as hemorrhage, mass effect, or hydrocephalus. Cervical spinal CT 1. No acute fracture or traumatic malalignment. 2. Mild spondylotic change. Electronically authenticated by: RACHEL QUAN Date: 03/26/2024 20:33
[2024-03-26 18:48] LABS: Basophils Absolute Auto 0.1 10^3/uL (0.0-0.1); Basophils Percent Auto 0.6 % (0.2-2.0); Eosinophils Absolute Auto 0.2 10^3/uL (0.0-0.7); Eosinophils Percent Auto 1.5 % (0.9-7.0); Hematocrit 48.9 % (42.0-54.0); Hemoglobin 16.5 g/dL (14.0-18.0); Immature Granulocytes Abs Auto 0.04 10^3/uL (0.00-0.03); Immature Granulocytes Pct Auto 0.4 % (0.0-0.5); Lymphocytes Percent Auto 28.6 % (20.5-60.0); Mean Corpuscular HGB Conc 33.7 g/dL (29.9-35.2); Mean Corpuscular Hemoglobin 28.9 pg (25.9-34.0); Mean Corpuscular Volume 85.6 fL (80.0-94.0); Monocytes Absolute Auto 0.8 10^3/uL (0.3-0.8); Monocytes Percent Auto 8.1 % (1.7-12.0); Neutrophils Absolute Auto 6.3 10^3/uL (1.4-6.5); Neutrophils Percent Auto 60.8 % (43.0-75.0); Platelet Count 315 10^3/uL (150-450); Red Blood Count 5.71 10^6/uL (4.70-6.10); Red Cell Distribution Width 12.2 % (11.0-15.0); White Blood Count 10.4 10^3/uL (4.0-11.0)
[2024-03-26 18:53] LABS: Anion Gap 15.1; BUN Creatinine Ratio 8.9; Calcium 9.5 mg/dL (8.5-10.1); Carbon Dioxide 27.9 mmol/L (21.0-32.0); Chloride 100 mmol/L (98-107); Estimated GFR (African America >60 (>=60 mL/min/1.73m^2); Estimated GFR (Non-African Ame >60 (>=60 mL/min/1.73m^2); Glucose 99 mg/dL (74-106); Sodium 139 mmol/L (136-145)
== END 2024-03-26 23:02 | disposition home or self-care (01) ==
PROVIDERS: Emergency Medicine; Emergency Provider Student in an Organized Health Care Education/Training Program; PCP Family Medicine
DX: R20.2 Paresthesia of skin (principal)
CPT/HCPCS: 36415; 70450; 72125; 80048; 85025; 93005; 99284

== ENCOUNTER 2024-09-25 02:46 | Emergency (ER) | payer MEDICARE, MEDICAID, SELFPAY ==
--- OUTSIDE RECORDS SUMMARY | 2024-09-25 02:54 | XMS_ITS | CCD ---
Author Organization [facility] Care Team Providers Care Cut To Length Operator Name Role Phone CESAR FRAZIER Unavailable Unavailable Uriel Nunez MD Primary Care Provider [phone] Uriel Nunez MD Primary Care Provider [phone] Uriel Nunez MD Primary Care Provider [phone] Uriel Nunez MD Primary Care Provider [phone] DR URIEL LAU Primary Care Unavailable JARRED, KEVIN Admitting Unavailable WIL STERNYL Attending Unavailable JARRED, KEVIN Consulting Unavailable KTAZ, GIN Consulting Unavailable CHARLY, OTF Consulting Unavailable ENRIQUE [...] Unavailable ALEXANDERY ., DR COFFEY Admitting Unavailable HOY ., DR COFFEY Attending Unavailable ALEXANDERY ., DR COFFEY Primary Care Unavailable ENRIQUE ., DR COFFEY Admitting Unavailable ENRIQUE ., DR COFFEY Attending Unavailable ENRIQUE ., DR COFFEY Primary Care Unavailable ENRIQUE ., DR COFFEY Consulting Unavailable EMILY, DR MIRIAM Norton Consulting Unavailable ENRIQUE ., DR COFFEY Primary Care Unavailable JARRED, KEVIN Admitting Unavailable JARREDWILYL Attending Unavailable JARRED, KEVIN Consulting Unavailable DOMINIC ROMERO Consulting Unavailable Uriel Nunez Primary Care Physician Hoy, MD Uriel M Primary Care Provider [phone] DO Saad Mir Emergency Provider NICK ROBERTSON Attending Unavailable URIEL NUNEZ Primary Care Unavailable GERALDINE ALONSO Attending Unavailable URIEL NUNEZ Primary Care Unavailable SUSANNAH GUDINO Referring Unavailable GERALDINE ALONSO Attending Unavailable URIEL NUNEZ Primary Care Unavailable Uriel Nunez MD Primary Care Provider [phone] MD Uriel Nunez Primary Care Provider [phone] MD Taiwo Trujillo Attending Provider [phone] DO Nirmal Hernandez Emergency Provider MD Sherif Francis Admit Provider [phone] MD Sherif Francis Attending Provider AMEENA Alston Other Provider MD Reginald Tang Other Provider [phone] MD John Rodriguez Other Provider [phone] MD Martin Dorado Other Provider DO Quintin [...] Doran Attending Unavailable Nahed Doran Admitting Unavailable DO Tasia Virgil SBradley Attending Unavailable DO Virgil Dozier SBradley Attending Unavailable URIEL NUNEZ Primary Care Unavailable ESTELA VARGAS Attending Unavailable ESTELA VARGAS Attending Unavailable ESTELA VARGAS Referring Unavailable HOY, URIEL M Primary Care Unavailable HOY, URIEL M Primary Care Unavailable CHESTER MAHER M Attending Unavailable DANIA ERVIN Referring Unavailable HOY, URIEL M Primary Care Unavailable ABIDAENBERG, CHESTER Browning Referring Unavailable HOY, URIEL M Primary Care Unavailable ABIDAENBERG, CHESTER M Referring Unavailable HOY, URIEL M Primary Care Unavailable Uriel Nunez MD Primary Care Provider [phone] HOY, URIEL M Primary Care Unavailable DETTLING, JOSI Referring Unavailable HOY, URIEL M Primary Care Unavailable DETTLING, JOSI Referring Unavailable HOY, URIEL M Primary Care Unavailable DETTLING, JOSI Referring Unavailable HOY, URIEL M Primary Care Unavailable DETTLING, JOSI Referring Unavailable MYA TENA Attending Lazarus grady HOY, URIEL M Primary Care Unavailable DETTLING, JOSI Referring Unavailable HOY, URIEL M Primary Care Unavailable DETTLING, JOSI Referring Unavailable HOY, URIEL M Primary Care Unavailable MYA TENA Referring Unavai lable HOY, URIEL M Primary Care Unavailable DETTLING, JOSI Referring Unavailable HOY, URIEL M Primary Care Unavailable DETTLING, JOSI Referring Unavailable HOY, URIEL M Primary Care Unavailable MALDONADO TENACIMichael Rodriguez Referring Unavai lable MYA TENA Attending Lazarus grady HOY, URIEL M Primary Care Unavailable DETTLING, JOSI Referring Unavailable HOY, URIEL M Primary Care Unavailable DETTLING, JOSI Referring Unavailable HOY, URIEL M Primary Care Unavailable DETTLING, JOSI Referring Unavailable HOY, URIEL M Primary Care Unavailable MICHAEL CORDOBA Referring Unavailab JAZMIN Arenas Attending Unavailable HOY, URIEL M Primary Care Unavailable MICHAEL CORDOBA Referring Unavailab le DETTLING, JOSI Attending Unavailable HOY, URIEL M Primary Care Unavailable DETTLING, JOSI Referring Unavailable HOY, URIEL M Primary Care Unavailable DETTLING, JOSI Referring Unavailable HOY, URIEL M Primary Care Unavailable DETTLING, JOSI Referring Unavailable HOY, URIEL M Primary Care Unavailable MYA TENA Referring UnavaURIEL Garber M Primary Care Unavailable DETTLING, JOSI Referring Unavailable ENRIQUE, URIEL M Primary Care Unavailable DETTLING, JOSI Referring Unavailable HOSharon, URIEL M Primary Care Unavailable DETTLING, JOSI Referring Unavailable ENRIQUE, URIEL M Primary Care Unavailable DETTLING, JOSI Referring Unavailable HOSharon, URIEL M Primary Care Unavailable DETTLING, JOSI Referring Unavailable MYA TENA Attending Unavai URIEL Proctor M Primary Care Unavailable DETTLING, JOSI Referring Unavailable HILLS, PAOLA D Attending Unavailable HILLS, PAOLA D Referring Unavailable HILLS, PAOLA D Referring Unavailable HILLS, PAOLA D Referring Unavailable SHAWNEE MOELLER Attending Unavailable UNALLOCATED, NOMS PROVIDER Referring Unava ilable HILLS, PAOLA D Referring Unavailable HILLS, PAOLA D Attending Unavailable HILLS, PAOLA D Referring Unavailable HILLS, PAOLA D Attending Unavailable HILLS, PAOLA D Referring Unavailable Enrique OWENS, Uriel Browning Primary Care Provider [phone] Temitope Woodward Consulting Unavailable Uriel Nunez M Primary Care Unavailable jA Crawford Attending Unavailable Taiwo Trujillo Admitting Unavailab Mily Joshua Consulting Unavailable Miriam Liang Consulting Unavailable Reginald Garcia Consulting Unavailab Pam Jacobson Consulting Unavailable Martin Samaniego Consulting Unavailable Daysi Jansen Consulting Unavailable Hina Biswas Consulting Unavailable Amy Almanzar Consulting Unavailable Uriel Nunez M Primary Care Unavailable Taiwo Trujillo Admitting Unavailab Taiwo Quigley Attending Unavailab Mary Forbes Attending Unavailable Enrique, Uriel M Primary Care Unavailable Sherif Francis Admitting Unavailable Heide Alston Consulting Unavailable Reginald Tang Consulting UnavailJohn Gray Consulting Unavailable Martin Dorado Consulting Unavailable Quintin Holt Consulting Unavailable Jayesh Eldridge Consulting Unavailable Scott Monterroso Consulting Unavailable Rober Bonner Consulting Un available Joselito Daily Consulting Unavailable Taiwo Trujillo Consulting Unavailab le KRZYSZTOF, KRZYSZTOF E Attending Unavailable KRZYSZTOF, KRZYSZTOF E Admitting Unavailable HOY, URIEL M Primary Care Unavailable KRZYSZTOF, KRZYSZTOF Attending Unavailable HOY, URIEL M Primary Care Unavailable KRZYSZTOF, KRZYSZTOF Referring Unavailable HOY, URIEL M Primary Care Unavailable KRZYSZTOF, KRZYSZTOF Attending Unavailable KRZYSZTOF, KRZYSZTOF Admitting Unavailable HOY, URIEL M Primary Care Unavailable SELF Referring Unavailable SOBEIDA GALVAN Attending Unavailable HOY, URIEL M Primary Care Unavailable SELF Referring Unavailable SOBEIDA GALVAN Attending Unavailable HOY, URIEL M Primary Care Unavailable SELF Referring Unavailable SOBEIDA GALVAN Attending Unavailable HOY, URIEL M Primary Care Unavailable KANIKA READ Attending Unavailable HOY, URIEL M Primary Care Unavailable HILLJODI Referring Unavailable HOY, URIEL M Primary Care Unavailable HILLJODI Attending Unavailable HOY, URIEL M Primary Care Unavailable JEMIMA PURDY Attending Unavailable KRZYSZTOF, KRZYSZTOF Referring Unavailable HOY, URIEL M Primary Care Unavailable SELF Referring Unavailable SOBEIDA GALVAN Attending Unavailable HOY, URIEL M Primary Care Unavailable SOBEIDA GALVAN Attending Unavailable HOY, URIEL M Primary Care Unavailable AIDA ERVIN Attending Unavailable HOY, URIEL M Primary Care Unavailable SOBEIDA GALVAN Attending Unavailable HOY, URIEL M Primary Care Unavailable SOBEIDA GALVAN Attending Unavailable SOBEIDA GALVAN Attending Unavailable HOY, URIEL M Primary Care Unavailable SOBEIDA GALVAN Attending Unavailable HOY, URIEL M Primary Care Unavailable HOY, URIEL M Primary Care Unavailable SOBEIDA GALVAN Attending Unavailable HOY, URIEL M Primary Care Unavailable KRZYSZTOF, KRZYSZTOF Referring Unavailable HOY, URIEL M Primary Care Unavailable JEMIMA PURDY Attending Unavailable KRZYSTZOF, KRZYSZTOF Referring Unavailable HOY, URIEL M Primary Care Unavailable KRZYSZTOF, KRZYSZTOF Attending Unavailable SOBEIDA GALVAN Referring Unavailable KRZYSZTOF, KRZYSZTOF Referring Unavailable KRZYSZTOF, KRZYSZTOF Attending Unavailable HOY, URIEL M Primary Care Unavailable KRZYSZTOF, KRZYSZTOF Admitting Unavailable Allergies Allergy Classification Reported Allergen(s) Allergy Type Date of Onset Reaction(s) Facility (20 sources) Desvenlafaxine; Translations: [desvenlafaxine] Drug Allergy 01-13-20 14 Other: See Comments [facility] (20 sources) Ketorolac; Translations: [KETOROLAC TROMETHAMINE] Drug Allergy 09-15-19 17 Unknown [facility] (20 sources) levETIRAcetam; Translations: [levetiracetam] Drug Allergy 08-01-19 11 Other: See Comments, Unknown (qualifier value) [facility] (1 source) Acetaminophen / oxyCODONE Drug Allergy [facility] (3 sources) Desvenlafaxine; Translations: [Pristiq] Drug Allergy [facility] (2 sources) Ketorolac Drug Allergy 09-28-19 21 [facility] (3 sources) levETIRAcetam; Translations: [Keppra] Drug Allergy [facility] (1 source) Mazindol Drug Allergy [facility] (3 sources) Desvenlafaxine; Translations: [DESVENLAFAXINE SUCCINATE] Drug Allergy 10-02-19 22 [facility] Repository (11 sources) Desvenlafaxine Drug Allergy 01-13-20 14 Hallucinations , Unknown [facility] (11 sources) Ketorolac trometamol Propensity to adverse reactions 09-15-19 17 Unknown [facility] (11 sources) Levetiracetam Allergy to substance 09-20-19 09 Anxiety, Unknown [facility] (1 source) Desvenlafaxine Drug Allergy 01-02-20 23 [facility] Repository (1 source) levETIRAcetam Drug Allergy 01-02-20 23 [facility] Repository Medications Current Medications Medication Drug Class(es) [...] mg oral tablet (20 sources) Benzodiazepine Start: 11-28-19 10 End: 07-30-20 25 take 1 tablet by mouth three times daily clonazePAM (KLONOPIN) 2 mg tablet Indications: Partial epilepsy with impairment of consciousness, intractable (HCC) Take 1 tablet by mouth three times a day for 90 days. 270 tablet 09/15/2024 12/14/2024 Active Comment on above: Take 1 tablet by gisella three times daily for 180 days. Take one(1) tablet t hree times daily Take one(1) tablet t hree times daily. Take 1 tablet by gisella th three times a day for 180 days. Take one(1) tablet three times daily. CPAP (20 sources) Start: 06-20-19 CPAP Indications: Bipolar II disorder (HCC) , Psychophysiologic insomnia , HIMA (obstructive sleep apnea) Change the pressure of autoBipap with EPAP 5-15 mh2o and PS 4-8cmh2O. His DME company is [employer] , new mask to fit patient preference, [...] and PS 4-8cmh2O. His DME company is [employer] new mask to fit patient preference, ramp, [...] and PS 4-8cmh2O. His DME company is [employer] , new mask to fit patient preference, [...] day(s), # 28 cap(s), Refills(s) 0, Pharmacy: [facility]/pharmacy #[id number], 178, cm, 12/01/23 19:37:00 EDT, Height/Length Dosing, 97, kg, 12/01/23 19:37:00 EDT, Weight Dosing Start Date: 12/01/23 Stop Date: 12/08/23 Status: Ordered docusate sodium 100 mg oral capsule (20 sources) Start: 10-27-19 take 1 capsule by mouth twice daily as needed docusate sodium (Colace) 100 MG capsule TAKE 1 CAPSULE BY MOUTH TWICE A DAY NEEDED 10/27/2023 Active Start: 09-25-2023 End: 09-26-2023 Docusate Sodium Discontinued MG PO September 25, 2023 12:00am September 26, 2023 10:44am Start: 09-21-2020 take 1 capsule by mo [facility] every twelve hours as needed docusate sodium [...] mL subcutaneously once every month. 1 mL 01/29/2023 02/27/2023 Discontinued erenumab-aooe (A IMOVIG AUTOINJECTOR) 140 mg/mL auto-injector Inject 140 mg under the skin every 28 days. Active Comment on above: Inject 1 mL subcutan eously once every month. ergocalciferol 1.25 mg oral capsule (11 sources) Provitamin D2 Compound Start: 09-29-19 ergocalciferol (Vitamin D2) 1.25 MG (34980 UT) capsule TAKE 1 CAPSULE BY MOUTH EVERY 7 DAYS FOR 28 DAYS 09/29/2023 Active fluticasone (20 sources) Corticosteroid Start: 09-20-19 take 1 spray(s) nasal route once daily fluticasone nasal one spray, Nasal, Daily, Refill(s) 0, in each nostril, Allergy symptoms Start Date: 09/19/22 Status: Ordered take 1 spray(s) nasal route twic e daily fluticasone (FLONASE) 50 mcg/actuation nasal spray Use 1 Furman in each nostril twice daily. Active fluticasone (Sai nase) 50 MCG/ACT nasal spray 1 spray in the morning and 1 spray in the evening. Active fluticasone prop ionate (FLONASE) 50 mcg/actuation nasal spray 1 spray by NOT APPLICABLE route in the morning and 1 spray before bedtime. Active Comment on above: Use 1 Furman in each nostril twice daily. ibuprofen 800 mg oral tablet (20 sources) Nonsteroidal Anti-inflammatory Drug Start: 06-10-2023 take 1 tablet by mouth every eight hours as needed ibuprofen (MOTRIN) 800 mg tablet Take 800 mg by mouth three times a day as needed. 06/10/2023 Active Start: 06-10-2023 take 1 tablet by gisella th every eight hours as needed ibuprofen 800 MG tablet Take 800 mg by mouth every 8 (eight) hours if needed 06/10/2023 Active Start: 05-28-2017 End: 07-11-2017 take [...] 1 capsule by mo ut twice daily with meals. lacosamide 100 mg oral tablet (20 sources) Anti-epileptic Agent Start: 09-15-2024 End: 12-14-2024 take 1 tablet by mouth every twelve hours lacosamide (VIMPAT) 100 mg tab Indications: Partial epilepsy with impairment of consciousness, intractable (HCC) Take 1 tablet by mouth every 12 hours for 90 days. 180 tablet 09/15/2024 12/14/2024 Active Start: 09-19-2022 End: 04-09-2024 take 1 tablet by mouth in the morning lacosamide (Vimpat) 100 MG tablet Take 100 mg by mouth in the morning and 100 mg in the evening. 04/10/2023 Active Start: 01-15-2017 End: 09-15-2024 take 1 tablet by mouth twice daily lacosamide (VIMPAT) 100 mg tab Indications: Partial epilepsy with impairment of consciousness, intractable (HCC) Take 1 tablet by mouth two times a day for 180 days. 180 tablet 1 03/18/2024 09/15/2024 Discontinued Start: 01-15-2017 take 1 tablet by gisella th once daily Lacosamide (Vimpat) 100 mg Tablet Active 300 MG PO Daily January 15, 2017 12:00am Comment on above: Take 1 tablet by gisella th twice daily for 180 days. Take 1 tablet by gisella th twice daily for 90 days. Take 1 tablet by gisella th twice daily. Take 1 tablet by gisella th two times a day. linaclotide 0.072 mg oral capsule (5 sources) Guanylate Cyclase-C Agonist Start: 4 Linzess 72 MCG capsule TAKE 1 CAPSULE DAILY 30 MINUTES BEFORE FIRST MEAL OF DAY ON EMPTY STOMACH 01/04/2024 Active lurasidone hydrochloride 20 mg oral tablet (20 sources) Atypical Antipsychotic Start: 5 take 1 tablet by mouth once daily at dinner lurasidone (LATUDA) 80 mg tablet TAKE 1 TABLET BY MOUTH DAILY WITH DINNER *LOWER THE SEROQUEL TO 100 MG IN THE EVENING* 30 tablet 10 05/19/2024 Active Start: 02-01-2024 End: 05-30-2024 take 1 tablet by mouth once daily at breakfast lurasidone (LATUDA) 20 mg tablet TAKE 1 TABLET BY MOUTH EVERY DAY WITH BREAKFAST 30 tablet 2 05/30/2024 Active Start: 10-21-2023 End: 01-19-2024 take 1 [...] daily. ondansetron 4 mg disintegrating oral tablet (11 sources) Serotonin-3 Receptor Antagonist Start: 10-20-19 24 take 1 tablet by mouth every six hours as needed for nausea ondansetron ODT (Zofran-ODT) 4 MG disintegrating tablet 1 tablet on the tongue and allow to dissolve = for nausea Orally Q 6 hours PRN 10/20/2023 Active pantoprazole 40 mg delayed release oral tablet (5 sources) Proton Pump Inhibitor Start: 03-29-20 take 1 tablet by mouth once daily pantoprazole (ProtoNix) 40 MG EC tablet TAKE 1 TABLET BY MOUTH EVERY DAY FOR 30 DAYS 03/29/2024 Active polyethylene glycol 3350 84362 mg powder for oral solution (1 source) [...] oral tablet (20 sources) Atypical Antipsychotic Start: 07-20-19 25 take 1 tablet by mouth once daily at bedtime QUEtiapine (SEROQUEL) 200 mg tablet TAKE 1 TABLET BY MOUTH EVERY NIGHT AT BEDTIME 30 tablet 10 07/19/2024 Active Start: 09-26-2023 Quetiapine Act patricia 50 MG PO Bedtime September 26, 2023 [...] sources) Serotonin-1b and Serotonin-1d Receptor Agonist Start: 12-12-2022 End: 08-17-2024 rizatriptan (MAXALT BIRTH ATTENDANT) 10 mg disintegrating tablet Indications: Chronic migraine without aura without status migrainosus, not intractable PLACE 1 TABLET ON TONGUE AND ALLOW TO DISSOLVE NEEDED AT ONSET OF HEADACHE. MAY REPEAT AFTER 2 HOURS. DO NOT EXCEED 30MG PER DAY 9 tablet 10 08/17/2024 Active Start: 09-19-2022 rizatriptan 10 mg, Oral, Daily, PRN Migraine headache, may repeat dose once in 2 hours, Refills(s) 0, Migraine headache Start Date: 09/19/22 Status: Ordered Start: 08-12-2022 End: 12-09-2022 take 1 tablet by mouth every two hours as needed for headache rizatriptan (MAXALT-BIRTH ATTENDANT) 10 mg disintegrating tablet Indications: Chronic migraine [...] mg Tablet Active 8.6 MG PO PRN 30 September 26, 2023 12:00am sertraline 100 mg oral tablet (20 sources) Serotonin Reuptake Inhibitor Start: 08-17-2024 take 3 tablets by mouth once daily sertraline (ZOLOFT) 100 mg tablet TAKE 3 TABLETS BY MOUTH ONCE DAILY 90 tablet 10 08/17/2024 Active Start: 10-25-2021 End: 10-17-2023 take 3 tablets [...] tablet (20 sources) HMG-CoA Reductase Inhibitor Start: take 1 tablet by mouth once daily [...] day(s), # 12 tab(s), Refills(s) 0, Pharmacy: [facility]/pharmacy #[id number], 178, cm, 04/22/23 21:32:00 EST, [...] Nausea/Vomiting, # 12 tab(s), Refills(s) 0, Pharmacy: [facility]/pharmacy #[id number], 178, cm, 12/01/23 19:37:00 EDT, Height/Length [...] 09, 2017 12:00am May 28, 2017 2:33am betamethasone 3 mg/ml / betamethasone acetate 3 mg/ml injectable suspension (8 sources) Corticosteroid Start: 05-23-2024 End: 05-23-2024 betamethasone acetate-betamethas one sodium phosphate (Celestone) injection 12 mg Start: 05-23-2024 End: 05-23-2024 12 mg, Intra-articular, Once PRN Procedure, Starting on Thu05/23/24 at 1323, For 1 dose carbamide peroxide 100 mg/ml mucous membrane topical [...] gluconate 1.2 mg/ml mouthwash (3 sources) Start: 7 End: 7 Chlorhexidine Gluconate Discontinued 15 ML BUCCAL Bedtime January 15, 2017 12:00am February 09, 2017 11:23pm cloNIDine hydrochloride 0.1 mg oral tablet (20 sources) Central alpha-2 Adrenergic Agonist Start: 5 End: take 1 tablet by mouth twice daily cloNIDine HCl (CATAPRES) 0.1 mg tablet TAKE 1 TABLET BY MOUTH TWICE A DAY 180 tablet 1 05/25/2024 09/21/2024 Discontinued Start: 11-03-2023 End: 12-03-2023 take 1 tablet by mouth in the morning cloNIDine (Catapres) 0.1 MG tablet Take 0.1 mg by mouth in the morning and 0.1 mg in the evening. 11/03/2023 Active cyclobenzaprine hydrochloride 10 mg oral tablet (3 sources) Muscle Relaxant Start: 02-09-2017 End: 05-28-2017 take 10 mg by mouth three times daily Cyclobenzaprine Discontinued 10 MG PO Three times daily February 09, 2017 12:00am May 28, 2017 2:33am famotidine 20 mg oral tablet (3 sources) Histamine-2 Receptor Antagonist Start: 05-28-2017 End: 09-07-2018 take 1 tablet by mouth twice daily Famotidine (Pepcid) 20 mg tablet Discontinued 20 MG PO Twice daily May 28, 2017 1:00am September 07, 2018 3:53pm 1 ml galcanezumab-gnlm 120 mg/ml auto-injector (13 sources) Start: 08-12-2022 End: 01-29-2023 inject 1 mL by subcutaneous injection every month EMGALITY PEN 120 mg/mL pen Indications: Chronic migraine without aura without status migrainosus, not intractable INJECT 1 MILLILITER SUBCUTANEOUSLY ONCE EVERY MONTH. DO NOT SHAKE. 1 mL 5 01/09/2023 01/29/2023 Discontinued Comment on above: Inject 1 mL subcutan eously once every month. Do not shake. INJECT 1 MILLILITER SUBCUTANEOUSLY ONCE EVERY MONTH. DO NOT SHAKE. levoFLOXacin 500 mg oral tablet (3 sources) Quinolone Antimicrobial Start: 05-28-2017 End: 07-11-2017 take 500 mg by mouth once daily Levofloxacin Discontinued 500 MG PO Daily May 28, 2017 1:00am July 11, 2017 2:49am 1 ml LORazepam 2 mg/ml injection (20 sources) Benzodiazepine Start: 01-01-2023 End: 09-26-2023 inject 1 dose by intramuscular injection once [...] bilateral carotid arteries; Translations: [OCCLUSION AND STENOS CHRISTOPHER CAROTID ART] Onset: 2 Chronic Osteoarthritis (8 sources) Bilateral patellofemoral joint osteoarthritis; Translations: [Bilateral primary osteoarthritis of knee] 05-23-2024 Chronic Other acquired deformities (1 source) Spondylolysis; Translations: [Spondylolysis, lumbar region] 05-28-2024 Episodic Other aftercare (1 source) Other chcf (current) drug therapy; Translations: [OTH OTHER SPORTS OFFICIAL CURRENT DRUG THERAPY] Onset: 3 Episodic Other [...] Translations: [Paresthesia of skin] 09-07-2018 Episodic Other non-traumatic joint disorders (4 sources) Disorder of shoulder; Translations: [Other specified joint disorders, right shoulder] 05-25-2024 Episodic Other non-traumatic joint disorders (2 sources) Pain in right shoulder; Translations: [Pain in joint, shoulder region] 05-25-2024 Episodic Other nutritional; endocrine; and metabolic disorders [...] uses Bipap Residual codes; unclassified (2 sources) Obstructive sleep apnea (adult) (pediatric); Translations: [Obstructive sleep apnea (adult)(pediatric)] Onset: 4 09-26-2023 Chronic Residual codes; unclassified (6 sources) [...] Spondylosis; intervertebral disc disorders; other back problems (20 sources) Degeneration of lumbar intervertebral disc; Translations: [Degeneration of intervertebral disc of lumbar region with discogenic back pain] Onset: 4 03-30-2024 Chronic Sprains and strains (2 sources) Strain of [...] source) pain left knee Onset: 4 Unclassified (2 sources) Degeneration of intervertebral disc of lumbar region with discogenic back pain; Translations: [Degeneration of intervertebral disc of lumbar region with discogenic back pain] Onset: 5 Past or Other Problems Problem Classification Problem [...] postprocedural pain] Onset: 09-21-2020 09-21-2020 Episodic Other non-traumatic joint disorders (2 [...] of suicide attempt] Onset: 04-07-2016 04-07-2016 Episodic Spondylosis; intervertebral disc disorders; other back problems (20 sources) Tenderness of neck; Translations: [Cervicalgia] Onset: 12-28-2023 Episodic Suicide and intentional self-inflicted injury (17 sources) Suicide attempt ; Translations: [Suicidal thoughts] Onset: 09-23-2023 09-19-2022 Episodic Comment on above: 2015 Unclassified (1 source) LOW BACK PAIN, UNSPECIFIED; Translations: [LOW BACK PAIN, UNSPECIFIED] Onset: 07-28-2022 Results Test Name Value Interpretation Reference Range Facility [facility] JAYE HARVEY ([id number]) 1980 M Date Time Provider Department 09/21/24 KRZYSZTOF BLANKENSHIP During your visit today, we recorded the following information about you: Alba Youngblood RN 09/21/2024 10:30 AM Signed DATE OF SERVICE: 09/19/24 PROVIDER: Dr. Blankenship PROCEDURE: Right L5-S1 lumbar facet joint medial branch nerve radiofrequency ablation under fluoroscopic guidance. Spoke directly with patient/caregiver Patient states that they are 80% better. Patient states he has not done any activity since his procedure, he has been sleeping. Encouraged return to normal activities Patient claims to have no problems. ASSESSMENT AND PLAN: Jaye Harvey is status post Right L5-S1 facet medial branch nerve radiofrequency ablation under fluoroscopic guidance. He did very well today without any apparent complications. He is to return to the clinic in 12 weeks for followup. Postoperative instructions given, he voiced understanding. He was taken to the recovery room in stable condition. Appointment scheduled with Dr. Blankenship in [place] for follow up, patient states he wants to be seen in [place] as it is closer to his house. Allergies As of Date: 09/21/2024 Noted Allergy Reaction KEPPRA (LEVETIRACETAM) 07/31/2010 14 - Other: See Comments Comments: Increases his ADHD KETOROLAC TROMETHAMINE 09/14/2016 16 - Unknown Comments: unknown PRISTIQ (DESVENLAFAXINE) 01/12/2014 14 - Other: See Comments Comments: sz Date Reviewed: 09/19/2024 Reviewed by: Stacie Mckeon RN - Fully Assessed Reason for Visit: Procedure Follow Up [1139] Cmt: Right L5-S1 lumbar facet joint medial branch nerve radiofrequency ablation under fluoroscopic guidance. Prescriptions as of 09/21/2024 - clonazePAM (KLONOPIN) 2 mg tablet Take 1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 pain [M51.360] Has elected for above procedure. MEDICATIONS: Prior to Admission medications as of 08/17/24 1321 Medication Sig Last Dose Taking sertraline (ZOLOFT) 100 mg tablet TAKE 3 TABLETS BY MOUTH ONCE DAILY 08/16/2024 Yes clonazePAM (KLONOPIN) 2 mg tablet Take 1 tablet by mouth three times a day for 90 days. 08/17/2024 Yes QUEtiapine (SEROQUEL) 200 mg tablet TAKE 1 TABLET BY MOUTH EVERY NIGHT AT BEDTIME 08/16/2024 Yes lurasidone (LATUDA) 20 mg tablet TAKE 1 TABLET BY MOUTH EVERY DAY WITH BREAKFAST 08/16/2024 Yes cloNIDine HCl (CATAPRES) 0.1 mg tablet TAKE 1 TABLET BY MOUTH TWICE A DAY 08/16/2024 Yes rizatriptan (MAXALT BIRTH ATTENDANT) [address] 1 TABLET ON TONGUE AND ALLOW TO DISSOLVE NEEDED AT ONSET OF HEADACHE. MAY REPEAT AFTER 2 HOURS. DO NOT EXCEED 30MG PER DAY Unknown lurasidone (LATUDA) 80 mg tablet TAKE 1 TABLET BY MOUTH DAILY WITH DINNER *LOWER THE SEROQUEL TO 100 MG IN THE EVENING* 08/16/2024 Yes lacosamide (VIMPAT) 100 mg tab Take 1 tablet by mouth two times a day for 180 days. 08/17/2024 Yes AIMOVIG AUTOINJECTOR 140 mg/mL auto-injector INJECT 1ML SUBCUTANEOUSLY EVERY MONTH 08/14/2024 simvastatin (ZOCOR) 20 mg tablet Take 20 mg by mouth every evening. 08/16/2024 Yes ibuprofen (MOTRIN) 800 mg tablet Take 800 mg by mouth three times a day as needed. Unknown diclofenac, EC, (VOLTAREN) 75 mg EC tablet Take 1 tablet by mouth every 12 hours. Unknown promethazine (PHENERGAN) 25 mg tablet 1 po tid prn headache or nausea Unknown QUEtiapine (SEROQUEL) 50 mg tablet take 1 tablet by mouth three times daily as needed for anxiety Unknown nadolol (CORGARD) 80 mg tablet Take 1 tablet by mouth once daily. benzocaine-menthol (CEPACOL) 15-3.6 mg lozg Use 1 Lozenge as instructed every 2 hours as needed. Unknown LORazepam (ATIVAN) 1 mg tablet Take 1 tablet by mouth as needed (for seizure lasting >3 minutes. Max 2 doses in 24 hours.) for up to 180 days. CPAP Change the pressure of autoBipap with EPAP 5-15 mh2o and PS 4-8cmh2O. His DME company is [employer] mask to fit patient preference, ramp, humidification and unlimited supplies Please send us machine download in 1 month Unknown CPAP Please send us machine download in 1 month Unknown LORazepam (ATIVAN) 1 mg tablet Take 1 tablet by mouth as needed (for seizure lasting >3 minutes. Max 2 doses in 24 hours.) for up to 180 days. Cetirizine 10 mg cap Take 1-2 tablets by mouth as needed. Unknown fluticasone (FLONASE) 50 mcg/actuation nasal spray Use 1 Furman in each nostril twice daily. 08/16/2024 Yes albuterol HFA (PROVENTIL HFA, VENTOLIN HFA) 90 mcg/actuation inhaler Inhale 1-2 Puffs as instructed as needed for Wheezing/Shortness of Breath. 08/16/2024 Yes ALLERGIES Allergen Reactions Keppra [Levetiracet* Other: See Comments Increases his ADHD Ketorolac Trometham* Unknown unknown Pristiq [Desvenlafa* Other: See Comments sz Objective PHYSICAL EXAM: The remainder of the physical exam is noncontributory. GENERAL: Alert, no distress, cooperative LUNGS: Lungs clear to auscultation, Good diaphragmatic excursion CARDIAC: Normal S1 and S2; no rubs, murmurs, or gallops BP 146/95 Pulse 92 Temp 36.7 ?C (98.1 ?F) (Temporal) Resp 18 SpO2 97% PAIN ASSESSMENT: PAIN EVALUATION 08/17/2024 1331 Pain Level: 6 Pain Location: Back-Lower Description: Burning;Throbbing Assessment/Plan Active Problems: Lumbosacral spondylosis without myelopathy [M47.817] Degeneration of intervertebral disc of lumbar region with discogenic back pain [M51.360] Medication and Non-Pharmacologic VTE Prophylaxis/Anticoagulants VTE Prophylaxis: N/A SIGNATURE: Poli Aguero APRN.CNP PATIENT NAME: Jaye Harvey DATE: 08/17/2024 TIME: 1:15 PM [facility] NURSING PROGon 08-17-2024 NURSING PROG HNO ID: [id number] Author: MILY HERNANDEZ RN Service: Nursing Author Type: Registered Nurse Type: Nursing Progress Note Filed: 08/17/2024 14:49 Note Text: -- Summary: Okay to discharge post-procedure -- 14:30 - Per Dr. Blankenship, patient needs to be held in PACU for 15 minutes post-procedure. Dr. Blankenship states that the resident will assess the patient prior to discharge. 14:40 - Dr. Blankenship and resident at bedside to assess patient. Okay to discharge patient per Dr. Blankenship. [facility] NURSING PROG HNO ID: [id number] Author: AKASH ALONSO RN Service: Nursing Author Type: Registered Nurse Type: Nursing Progress Note Filed: 08/17/2024 13:28 Note Text: Other: 1315 - Dr. Blankenship came to bedside to speak with patient. Patient drove himself. Dr. Blankenship agreed to proceed forward with the procedure, but would need to spend additional time with us after procedure before driving home. [facility] OPERATIVE NOon 08-17-2024 OPERATIVE NO HNO ID: [id number] Author: KRZYSZTOF BLANKENSHIP DO Service: Pain Management Author Type: Physician Type: Operative Report Filed: 08/17/2024 14:27 Note Text: Patient Name Medical Record # Jaye Harvey [id number] Date of : 1980 Admit Date: August 17, 2024 Sex / Age: male/43 year old Discharge Date: August 17, 2024 Surgeons and Role: * Krzysztof Blankenship DO - Primary * Ayana Fisher MD - Fellow LOG ID: [id number] Surgery/Procedure Date: 08/17/2024 Incision/Procedure Start Time: 2:11 PM Incision Close/Procedure End Time: 2:24 PM OPERATIVE REPORT DATE OF PROCEDURE: August 17, 2024 PREOPERATIVE DIAGNOSIS: Lumbosacral Spondylosis without Myelopathy POSTOPERATIVE DIAGNOSIS: Same. NAME OF OPERATION: Right Diagnostic L5-S1 Lumbar facet joint medial branch nerve block under fluoroscopic guidance. SURGEON: Krzysztof Blankenship DO SOCIAL WORK LECTURER: Ayana Loco MD, PGY5, Fellow ANESTHESIA: Local INFORMED CONSENT: Risks, benefits, and alternatives were discussed with the patient in detail. He verbalized understanding and agreed to proceed. PROCEDURE: The patient was brought to the fluoroscopy OR suite. Intravenous access was not obtained prior to the procedure.The patient was positioned prone on the fluoroscopy table. Continuous hemodynamic monitoring was achieved including blood pressure, EKG, and pulse oximetry. Intravenous sedation was not administered. The area of the lumbosacral spine was prepped well with povidone-iodine x 3 and draped into a sterile field. Fluoroscopy was used to identify the location of Right L4, L5, and sacral ala medial branch nerves at the junctions of the superior articular processes and the transverse processes of Right L5 and sacral ala respectively. Skin anesthesia was achieved using a total of 6 cc of lidocaine 1 % over receptive injection sites. A 22 -gauge, 3.5 -inch spinal needle was slowly inserted and advanced at each level using AP and Lateral and Oblique fluoroscopic imaging for needle guidance. Negative aspiration of blood and CSF was confirmed. 1 cc of bupivacaine 0.5% was injected at each level. The needles were removed. Bleeding was nil. A sterile dressing was applied. The patient was taken to the recovery room in stable condition. Complications: None. Estimated Blood Loss: None. Drains: None. Implantable Device: None. Specimen: None. I was present during the entire procedure, assisted as needed, patient tolerated well and no apparent complications, plan as outlined. Krzysztof Blankenship DO ASSESSMENT AND PLAN: Jaye Harvey is status post Right Diagnostic L5-S1 medial branch nerve block under fluoroscopic guidance. He is to return to clinic in 3-4 weeks for follow up. Postoperative instructions were given. He voiced understanding, and he was taken to the recovery room in stable condition. Krzysztof Blankenship DO PAIN MANAGEMENT August 17, 2024 [facility] 07-29-2024 [facility] Telephone ([facility]) -- JAYE HARVEY ([id number]) 1980 M Date Time Provider Department 07/29/24 KRZYSZTOF BLANKENSHIP During your visit today, we recorded the following information about you: Ashley Alvarez 07/29/2024 1:47 PM Signed Dx right L5-S1 facet MBNB X1 MANJIT HARVEYAN [id number] JOCELYNE BULLOCK First attempt to schedule injection. Left detailed voicemail asking patient to return call to surgery coordinator at [phone]. Ashley Alvarez 07/29/2024 2:31 PM Signed Dx right L5-S1 facet MBNB X1 JAYE HARVEY [id number] JOCELYNE BLANKENSHIP 4/2 -ANDRE -DM Patient was made aware that the [facility] will call the day prior to scheduled procedure between the hours of 12 and 4 pm to advise patient of arrival time the day of procedure. Patient advised that all medication management instructions prior to procedure will need addressed by clinical staff. Patient expresses understanding with no further questions or concerns at this time. Allergies As of Date: 07/29/2024 Noted Allergy Reaction KEPPRA (LEVETIRACETAM) 07/31/2010 14 - Other: See Comments Comments: Increases his ADHD KETOROLAC TROMETHAMINE 09/14/2016 16 - Unknown Comments: unknown PRISTIQ (DESVENLAFAXINE) 01/12/2014 14 - Other: See Comments Comments: sz Date Reviewed: 07/27/2024 Reviewed by: Krzysztof Blankenship DO - Fully Assessed Reason for Visit: Schedule Injection [3498] Primary Visit Diagnosis:Lumbosacral spondylosis without myelopathy [M47.817] Other Visit Diagnosis:Degeneration of intervertebral disc of lumbar region with discogenic back pain [M51.360] Order(s):SURGICAL REQUEST - ELECTIVE (12/2019) [[id number]] Order #: [id number]: 1 Prescriptions as of 07/29/2024 - clonazePAM (KLONOPIN) 2 mg tablet Take 1 tablet by mouth three times a day for 90 days. - QUEtiapine (SEROQUEL) 200 mg tablet TAKE 1 TABLET BY MOUTH EVERY NIGHT AT BEDTIME - lurasidone (LATUDA) 20 mg tablet TAKE 1 TABLET BY MOUTH EVERY DAY WITH BREAKFAST - cloNIDine HCl (CATAPRES) 0.1 mg tablet TAKE 1 TABLET BY MOUTH TWICE A DAY - rizatriptan (MAXALT BIRTH ATTENDANT) [address] 1 TABLET ON TONGUE AND ALLOW TO DISSOLVE NEEDED AT ONSET OF HEADACHE. MAY REPEAT AFTER 2 HOURS. DO NOT EXCEED 30MG PER DAY - lurasidone (LATUDA) 80 mg tablet TAKE 1 TABLET BY MOUTH DAILY WITH DINNER *LOWER THE SEROQUEL TO 100 MG IN THE EVENING* - lacosamide (VIMPAT) 100 mg tab Take 1 tablet by mouth two times a day for 180 days. - AIMOVIG AUTOINJECTOR 140 mg/mL auto-injector INJECT 1ML SUBCUTANEOUSLY EVERY MONTH - sertraline (ZOLOFT) 100 mg tablet take 3 tablets by mouth once daily - simvastatin (ZOCOR) 20 mg tablet Take [...] and PS 4-8cmh2O. His DME company is [employer] mask to fit patient preference, ramp, humidification [...] (FLONASE) 50 mcg/actuation nasal spray Use 1 Furman in each nostril twice daily. - albuterol HFA (PROVENTIL HFA, VENTOLIN HFA) 90 mcg/actuation inhaler Inhale 1-2 Puffs as instructed as needed for Wheezing/Shortness of Breath. Problem List As Of Date 07/29/2024 Noted Resolved Epilepsy (HCC) [G40.909] 06/18/2004 Epilepsy [...] 06/20/2020 HIMA (obstructive sleep apnea) [G47.33] 06/20/2020 Generalize (more content not included)... [facility]PR[facility]-20[facility] -- JAYE HARVEY ([id number]) 1980 M Date Time Provider Department 06/08/24 [facility]50[facility] During your visit today, we recorded the following information about you: Francheska José 06/08/2024 9:13 AM Signed Medication Concern Person Calling Jaye Harvey (home) Name of medication Lyrica Concern with medication Did Jodi Denney in Pain Management contact Dr. South for approval for patient to use Lyrica for his arthritis? Patient of Roula Thorpe, RN 06/08/2024 12:44 PM Signed Did not receive call from pain management. Note 06/06/2024 from them- Office visit reviewed with Dr. Blankenship. He is concerned about adding Lyrica to patient's current regimen of Vimpat and Klonopin. He is concerned that addition back of this medication will call issues with increased sedation and lethargy. Called patient to remind him of conversation with Jodi regarding Dr Blankenship concerns of him not having him on Lyrica in addition to epilepsy meds. He was upset about it and wants to cancel with pain management. I recommended that he see Dr Blankenship about other options but he declined. Roula Velasquez RN Allergies As of Date: 06/08/2024 Noted Allergy Reaction KEPPRA (LEVETIRACETAM) 07/31/2010 14 - Other: See Comments Comments: Increases his ADHD KETOROLAC TROMETHAMINE 09/14/2016 16 - Unknown Comments: unknown PRISTIQ (DESVENLAFAXINE) 01/12/2014 14 - Other: See Comments Comments: sz Date Reviewed: 05/27/2024 Reviewed by: Era Zabala MA - Fully Assessed Reason for Visit: Medication Problem [65] Cmt: May patient use Lyrica for his arthritis? Prescriptions as of 06/08/2024 - lurasidone (LATUDA) 20 mg tablet TAKE 1 TABLET BY MOUTH EVERY DAY WITH BREAKFAST - cloNIDine HCl (CATAPRES) 0.1 mg tablet TAKE 1 TABLET BY MOUTH TWICE A DAY - rizatriptan (MAXALT BIRTH ATTENDANT) [address] 1 TABLET ON TONGUE AND ALLOW TO DISSOLVE NEEDED AT ONSET OF HEADACHE. MAY REPEAT AFTER 2 HOURS. DO NOT EXCEED 30MG PER DAY - lurasidone (LATUDA) 80 mg tablet TAKE 1 TABLET BY MOUTH DAILY WITH DINNER *LOWER THE SEROQUEL TO 100 MG IN THE EVENING* - lacosamide (VIMPAT) 100 mg tab Take 1 tablet by mouth two times a day for 180 days. - AIMOVIG AUTOINJECTOR 140 mg/mL auto-injector INJECT [...] and PS 4-8cmh2O. His DME company is [employer] mask to fit patient preference, ramp, humidification [...] (FLONASE) 50 mcg/actuation nasal spray Use 1 Furman in each nostril twice daily. - albuterol HFA (PROVENTIL HFA, VENTOLIN HFA) 90 mcg/actuation inhaler Inhale 1-2 Puffs as instructed as needed for Wheezing/Shortness of Breath. Problem List As Of Date 06/08/2024 Noted Resolved Epilepsy (HCC) [G40.909] 06/18/2004 Epilepsy [...] (obstructive sleep apnea) [G47.33] 06/20/2020 Generalized epilepsy (HC (more content not included)... [facility] CNPNon 06-06-2024 [facility] Telephone (PAINLN) -- JAYE HARVEY ([id number]) 1980 Date Time Provider Department 06/06/24 JODI DENNEY During your visit today, we recorded the following information about you: Jodi Denney APRN.ENZO 06/07/2024 1:23 PM Addendum Office visit reviewed with Dr. Blankenship. He is concerned about adding Lyrica to patient's current regimen of Vimpat and Klonopin. He is concerned that addition back of this medication will call issues with increased sedation and lethargy. Xray of cervical spine showed mild arthritis Please let patient know recommendations Jodi Denney APRN.Daysi Francis LPN 06/08/2024 9:13 AM Signed Called spoke with patient, provider's message below given. Patient upset that Lyrica is not going to be added to his medication regimen. Patient stated he was going to contact his Epilepsy doctor ask to be taking off his medications. Allergies As of Date: 06/06/2024 Noted Allergy Reaction KEPPRA (LEVETIRACETAM) 07/31/2010 14 - Other: See Comments Comments: Increases his ADHD KETOROLAC TROMETHAMINE 09/14/2016 16 - Unknown Comments: unknown PRISTIQ (DESVENLAFAXINE) 01/12/2014 14 - Other: See Comments Comments: agustin Date Reviewed: 05/27/2024 Reviewed by: Era Zabala MA - Fully Assessed Reason for Visit: Results [95] Prescriptions as of 06/08/2024 - lurasidone (LATUDA) 20 mg tablet TAKE 1 TABLET BY MOUTH EVERY DAY WITH BREAKFAST - cloNIDine HCl (CATAPRES) 0.1 mg tablet TAKE 1 TABLET BY MOUTH TWICE A DAY - rizatriptan (MAXALT BIRTH ATTENDANT) [address] 1 TABLET ON TONGUE AND ALLOW TO DISSOLVE NEEDED AT ONSET OF HEADACHE. MAY REPEAT AFTER 2 HOURS. DO NOT EXCEED 30MG PER DAY - lurasidone (LATUDA) 80 mg tablet TAKE 1 TABLET BY MOUTH DAILY WITH DINNER *LOWER THE SEROQUEL TO 100 MG IN THE EVENING* - lacosamide (VIMPAT) 100 mg tab Take 1 tablet by mouth two times a day for 180 days. - AIMOVIG AUTOINJECTOR 140 mg/mL auto-injector INJECT [...] and PS 4-8cmh2O. His DME company is [employer] , new mask to fit patient preference, [...] (FLONASE) 50 mcg/actuation nasal spray Use 1 Furman in each nostril twice daily. - albuterol HFA (PROVENTIL HFA, VENTOLIN HFA) 90 mcg/actuation inhaler Inhale 1-2 Puffs as instructed as needed for Wheezing/Shortness of Breath. Problem List As Of Date 06/06/2024 Noted Resolved Epilepsy (HCC) [G40.909] 06/18/2004 Epilepsy [...] I disorder without psychot*05/12/2023 Post-traumatic stress disorder, (more content not included)... [facility] CNCOon 05-27-2024 CNCO Letter Text [facility] CNOVon 05-27-2024 CNOV Office Visit (PAINLN ) -- JAYE HARVEY ([id number]) 1980 M Date Time Provider Department 05/27/24 8:00 AM JODI DENNEY PAINLN During your visit today, we recorded the following information about you: Pulse Weight Height 81/minute 99.8 kg 1.803 m Jodi Denney, PRODUCT PICKER.CERTIFIED SHORTHAND REPORTER 06/07/2024 2:01 PM Signed Mr. Harvey a 43 year old male returns today for follow up of Mri Results, he states that symptoms have not changed. PAIN: Pain Yes. Location: low back, rates pain a 5 on a pain scale of 1-10. Patient describes pain as aching, duration to the present time occuring daily x 4. MEDICATIONS: Medications reviewed and verified. Current Outpatient Medications Medication Sig rizatriptan (MAXALT BIRTH ATTENDANT) [address] 1 TABLET ON TONGUE AND ALLOW TO DISSOLVE NEEDED AT ONSET OF HEADACHE. MAY REPEAT AFTER 2 HOURS. DO NOT EXCEED 30MG PER DAY lurasidone (LATUDA) 80 mg tablet TAKE 1 TABLET BY MOUTH DAILY WITH DINNER *LOWER THE SEROQUEL TO 100 MG IN THE EVENING* lacosamide (VIMPAT) 100 mg tab Take 1 tablet by mouth two times a day for 180 days. lurasidone (LATUDA) 20 mg tablet Take 1 tablet by mouth daily with breakfast. AIMOVIG AUTOINJECTOR 140 mg/mL auto-injector INJECT 1ML SUBCUTANEOUSLY EVERY MONTH clonazePAM (KLONOPIN) 2 mg tablet Take 1 tablet by mouth three times a day for 180 days. cloNIDine HCl (CATAPRES) 0.1 mg tablet TAKE 1 TABLET BY MOUTH TWICE A DAY sertraline (ZOLOFT) 100 mg tablet take 3 tablets by mouth once daily QUEtiapine (SEROQUEL) 200 mg tablet take 1 tablet by mouth every night at bedtime simvastatin (ZOCOR) 20 mg tablet Take 20 [...] and PS 4-8cmh2O. His DME company is [employer] mask to fit patient preference, ramp, humidification [...] (FLONASE) 50 mcg/actuation nasal spray Use 1 Furman in each nostril twice daily. albuterol HFA (PROVENTIL HFA, VENTOLIN HFA) 90 mcg/actuation inhaler Inhale 1-2 Puffs as instructed as needed for Wheezing/Shortness of Breath. No current facility-administered medications for this visit. Patient feels that medications have helped N/A PREVIOUS TREATMENTS LASTING SIX WEEKS IN THE LAST SIX MONTHS Active conservative therapy lasting 6 weeks in the last six months (see below) 1. Physical therapy: No 2. Home exercise program after PT: No 3. Occupational therapy: No 4. A physician supervised home exercise program (HEP): No 5. Trim Machine Adjuster: No Passive conservative therapy lasting 6 weeks in the last six months (see below) 1. Medical devises: No 2. Acupuncture: No 3. Tens unit: No 4. Prescription pain medication: No 5. NSAIDS: No TREATMENTS: none EXAM: There were no vitals taken for this visit. No acute distress noted, patient alert and oriented X's 3. Resistive testing proximal and distal in the upper and the lower extremeties show 5/5 strength. DTR's are symmetrical in the upper and the lower extremeties. Nerve root tension signs: Negative. Heart: RRR Lungs: Clear Abdomen: Soft, non tender Spine: tenderness with palpation of mid thoracic and lumbar spine IMPRESSION: This is a 43 year old gentleman with history of chronic lower back pain in the setting of lumbar spondylosis and right Castellvia IIa lumbosacral transitional vertebra. He recently established care with Dr. Blankenship on 03/30/2024. At last office visit with Dr. Blankenship he recommended: 1) Patient prescribed diclofenac which he will continue as needed, states that topicals have not worked in the past 2) Continue Physical therapy once pain under control. 3) Consider MRI Lumbar spine. 4) Consider Lumbar MARYLIN. 5) RTC in 8 weeks for F/U. Since last office visit he has continued mid thoracic and lower back pain. He describes pain as a diffuse aching sensation/tightness. Pain can impact his ability to remain (more content not included)... [facility] XR CERVICAL 4V AP/LAT/OBLon 05-27-2024 XR CERVICAL 4V AP/LAT/OBL * * *Final Report* * * DATE OF EXAM: May 27 2024 9:03AM [id number] [id number] - XR CERVICAL 4V AP/LAT/OBL / PROCEDURE REASON: Neck pain * * * * Physician Interpretation * * * * CERVICAL SPINE RADIOGRAPHS HISTORY: Neck pain TECHNOLOGIST PROVIDED HISTORY (if applicable): left sided neck pain radiating up throughout head TECHNIQUE: XR CERVICAL 4V AP/LAT/OBL COMPARISON: Comparison radiographs dated 03/31/2016 RESULT: Counting reference: Craniocervical junction Bone mineralization appears normal. Vertebral bodies have normal height and contour. There is no acute bony abnormality identified. Normal curvature. Normal AP alignment Cervical disc spaces are maintained with small endplate osteophytes at C5-6. Mild distal facet arthrosis. Neurostimulation leads in the left neck soft tissues. IMPRESSION: 1. Minimal cervical spondylosis Flour Worker: PSCB Transcribe Date/Time: May 27 2024 12:01P Dictated by : LUIS FLOYD MD This examination was interpreted and the report reviewed and electronically signed by: LUIS FLOYD MD on May 27 2024 12:17PM EST [id number] [facility] XR Cervical spine AP and Lat eral and obliqueon 05-27-2024 IMPRESSION: 1. Minimal cervical spondylosis Flour Worker: PSCB Transcribe Date/Time: May 27 2024 12:01P Dictated by : LUIS FLOYD MD This examination was interpreted and the report reviewed and electronically signed by: LUIS FLOYD MD on May 27 2024 12:17PM EST DIVISION OF RADIOLOGY * * *Final Report* * * DATE OF EXAM: May 27 2024 9:03AM [id number] [id number] - XR CERVICAL 4V AP/LAT/OBL / PROCEDURE REASON: Neck pain * * * * Physician Interpretation * * * * CERVICAL SPINE RADIOGRAPHS HISTORY: Neck pain TECHNOLOGIST PROVIDED HISTORY (if applicable): left sided neck pain radiating up throughout head TECHNIQUE: XR CERVICAL 4V AP/LAT/OBL COMPARISON: Comparison radiographs dated 03/31/2016 RESULT: Counting reference: Craniocervical junction Bone mineralization appears normal. Vertebral bodies have normal height and contour. There is no acute bony abnormality identified. Normal curvature. Normal AP alignment Cervical disc spaces are maintained with small endplate osteophytes at C5-6. Mild distal facet arthrosis. Neurostimulation leads in the left neck soft tissues. DIVISION OF RADIOLOGY Provider, [facility] - 05/27/2024 * * *Final Report* * * DATE OF EXAM: May 27 2024 9:03AM [id number] [id number] - XR CERVICAL 4V AP/LAT/OBL / PROCEDURE REASON: Neck pain * * * * Physician Interpretation * * * * CERVICAL SPINE RADIOGRAPHS HISTORY: Neck pain TECHNOLOGIST PROVIDED HISTORY (if applicable): left sided neck pain radiating up throughout head TECHNIQUE: XR CERVICAL 4V AP/LAT/OBL COMPARISON: Comparison radiographs dated 03/31/2016 RESULT: Counting reference: Craniocervical junction Bone mineralization appears normal. Vertebral bodies have normal height and contour. There is no acute bony abnormality identified. Normal curvature. Normal AP alignment Cervical disc spaces are maintained with small endplate osteophytes at C5-6. Mild distal facet arthrosis. Neurostimulation leads in the left neck soft tissues. IMPRESSION IMPRESSION: 1. Minimal cervical spondylosis Flour Worker: APARNA Transcribe Date/Time: May 27 2024 12:01P Dictated by : LUIS FLOYD MD This examination was interpreted and the report reviewed and electronically signed by: LUIS FLOYD MD on May 27 2024 12:17PM EST [facility] Radiology Study observation (narrative) [facility] XR Cervical spine AP and Lat eral and obliqueOrdered By: [facility]cf Provider on 05-27-2024 [facility] XR Shoulder - right 2 Viewso n 05-25-2024 Imaging Result: AP Grashey scapular Y-view of the right shoulder taken in the office today demonstrates AC joint arthritic findings with inferior spur off the distal clavicle which would certainly cause impingement no evidence of fracture patient has old bowing deformity 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 This was associated with the old humeral fracture back in 1994. Patient has good glenohumeral joint space and no significant proximal migration of the humeral head in relation to the glenoid On license of [facility] Visit (NEUSES ) -- JAYE HARVEY ([id number]) 1980 M Date Time Provider Department 05/24/24 10:30 AM JEMIMA PURDY During your visit today, we recorded the following information about you: Jemima Purdy APRN.CNP 05/24/2024 11:10 AM Signed Patient returned from MRI. VNS reset to pre-imaging settings with output current at 1.625 and magnet current at 1.875. Tolerated well. 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 MAY REPEAT AFTER 2 HOURS. DO NOT EXCEED 30MG PER DAY - lurasidone (LATUDA) 80 mg tablet TAKE 1 TABLET BY MOUTH DAILY WITH DINNER *LOWER THE SEROQUEL TO 100 MG IN THE EVENING* - lacosamide (VIMPAT) 100 mg tab Take 1 tablet by mouth two times a day for 180 days. - lurasidone (LATUDA) 20 mg tablet Take 1 tablet by mouth daily with breakfast. - AIMOVIG AUTOINJECTOR 140 mg/mL auto-injector INJECT 1ML SUBCUTANEOUSLY EVERY MONTH - clonazePAM (KLONOPIN) 2 mg tablet Take 1 tablet by mouth three times a day for 180 days. - cloNIDine HCl (CATAPRES) 0.1 mg tablet TAKE 1 TABLET BY MOUTH TWICE A DAY - sertraline (ZOLOFT) 100 mg tablet take [...] and PS 4-8cmh2O. His DME company is [employer] , PolySuite mask to fit patient preference, ramp, humidification [...] (FLONASE) 50 mcg/actuation nasal spray Use 1 Furman in each nostril twice daily. - albuterol HFA (PROVENTIL HFA, VENTOLIN HFA) 90 mcg/actuation inhaler Inhale 1-2 Puffs as instructed as needed for Wheezing/Shortness of Breath. Problem List As Of Date 05/24/2024 Noted Resolved Epilepsy (HCC) [G40.909] 06/18/2004 Epilepsy [...] recent episode depress*05/27/2023 HTN (hypertension) [I10] 08/26/2023 Degeneration of intervertebral disc of lumbar r*03/30/2024 Radiculopathy, l (more content not included)... Normal [facility] Office Visit (MONIE ) -- JAYE HARVEY ([id number]) 1980 M Date Time Provider Department 05/24/24 8:30 AM JEMIMA PURDY During your visit today, we recorded the following information about you: Jemima Purdy APRN.CERTIFIED SHORTHAND REPORTER 05/24/2024 11:10 AM Addendum CC: VNS reprogramming prior to MRI lumbar spine HPI: This is a 43 year old male who presents to the outpatient clinic alone. He is scheduled for a lumbar MRI and presents for VNS shut off. Tolerating stimulation well. No complaints. Current Outpatient Medications Medication Sig rizatriptan (MAXALT BIRTH ATTENDANT) [address] 1 TABLET ON TONGUE AND ALLOW TO DISSOLVE NEEDED AT ONSET OF HEADACHE. MAY REPEAT AFTER 2 HOURS. DO NOT EXCEED 30MG PER DAY lurasidone (LATUDA) 80 mg tablet TAKE 1 TABLET BY MOUTH DAILY WITH DINNER *LOWER THE SEROQUEL TO 100 MG IN THE EVENING* lacosamide (VIMPAT) 100 mg tab Take 1 tablet by mouth two times a day for 180 days. lurasidone (LATUDA) 20 mg tablet Take 1 tablet by mouth daily with breakfast. AIMOVIG AUTOINJECTOR 140 mg/mL auto-injector INJECT 1ML SUBCUTANEOUSLY EVERY MONTH clonazePAM (KLONOPIN) 2 mg tablet Take 1 tablet by mouth three times a day for 180 days. cloNIDine HCl (CATAPRES) 0.1 mg tablet TAKE 1 TABLET BY MOUTH TWICE A DAY sertraline (ZOLOFT) 100 mg tablet take 3 tablets by mouth once daily QUEtiapine (SEROQUEL) 200 mg tablet take 1 tablet by mouth every night at bedtime simvastatin (ZOCOR) 20 mg tablet Take 20 [...] and PS 4-8cmh2O. His DME company is [employer] , PolySuite mask to fit patient preference, ramp, humidification [...] (FLONASE) 50 mcg/actuation nasal spray Use 1 Furman in each nostril twice daily. albuterol HFA (PROVENTIL HFA, VENTOLIN HFA) 90 mcg/actuation inhaler Inhale 1-2 Puffs as instructed as needed for Wheezing/Shortness of Breath. No current facility-administered medications for this visit. ALLERGIES Allergen Reactions Keppra [Levetiracet* Other: See Comments Increases his ADHD Ketorolac Trometham* Unknown unknown Pristiq [Desvenlafa* Other: See Comments sz VNS Stimulation Interrogation VNS Information VNS Model Number SenTiva [id number] VNS Serial Number [id number] Date of Implantation August 31, 2023 Stimulation Parameters Present Changes Made Current (mA) 1.625 0.000 Frequency (Hz) 25 - Pulse Width (ms) 500 - Signal On-Time (s) 30 - Signal Off-Time (min) 0.8 - AutoStim Current (mA) - - AutoStim Pulse Width (ms) - - AutoStim Signal On-Time (s) - - Magnet Current (mA) 1.875 0.000 Magnet Pulse Width (ms) 500 - Magnet Signal On-Time (s) 60 - Duty Cycle 44% Comments: VNS is off for MRI. Tolerated well. To return for reprogramming after imaging Jemima Purdy APRN.CERTIFIED SHORTHAND REPORTER Referring Provider: KRZYSZTOF BLANKENSHIP [[id number]] Allergies As of Date: 05/24/2024 Noted Allergy Reaction KEPPRA (LEVETIRACETAM) 07/31/2010 14 - Other: See Comments Comments: Increases his ADHD KETOROLAC TROMETHAMINE 09/14/2016 16 - Unknown Comments: unknown PRISTIQ (DESVENLAFAXINE) 01/12/2014 14 - Other: See Comments Comments: sz Date Reviewed: 05/24/2024 Reviewed by: Nichol Valladares MA - Fully Assessed Reason for Visit: Established Patient [175] VNS Visit [5679] Primary Visit Diagnosis:Partial epilepsy with impairment of consciousness, 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 MAY REPEAT AFTER 2 HOURS. DO NOT EXCEED 30MG PER DAY - lurasidone (LATUDA) 80 mg tablet TAKE 1 TABLET BY MOUTH DAILY WITH DINNER *LOWER THE SEROQUEL TO 100 MG IN THE EVENING* - lacosamide (VIMPAT) 100 mg tab Take 1 tablet by mouth tw (more content not included)... [facility] -- JAYE HARVEY ([id number]) 1980 M Date Time Provider Department 05/24/24 JODI DENNEY During your visit today, we recorded the following information about you: Ladi Turner 05/24/2024 12:31 PM Signed Jaye is calling Jodi Denney APRN.[facility] today to report that [facility] is sending his Xray images for his appointment on Thursday. Jaye states that he wants to be sure the images are received prior to his appointment, and to please call him ahead of time if he needs to bring them on a disc. Jaye also wanted to make sure Jodi knows he had his MRI done today Patient has been identified by name and birthdate. Duration of symptoms: N/A Person calling: self Call patient at: on cell [phone] (home) [phone] (cell) Was an appointment scheduled: No Closing statement: Results or non-symptom based questions: Thank you for calling [facility], your call will be returned within the next business day. Daysi Grover LPN 05/24/2024 4:16 PM Signed Called spoke to patient, made aware that the xray images have not been received as of yet. Patient will stop and get a copy of the xray to bring with him to his appt on Thursday. Allergies As of Date: 05/24/2024 Noted Allergy Reaction KEPPRA (LEVETIRACETAM) 07/31/2010 14 - Other: See Comments Comments: Increases his ADHD KETOROLAC TROMETHAMINE 09/14/2016 16 - Unknown Comments: unknown PRISTIQ (DESVENLAFAXINE) 01/12/2014 14 - Other: See Comments Comments: sz Date Reviewed: 05/24/2024 Reviewed by: Nichol Valladares MA - Fully Assessed Prescriptions as of 05/24/2024 - rizatriptan (MAXALT BIRTH ATTENDANT) [address] 1 TABLET ON TONGUE AND ALLOW TO DISSOLVE NEEDED AT ONSET OF HEADACHE. MAY REPEAT AFTER 2 HOURS. DO NOT EXCEED 30MG PER DAY - lurasidone (LATUDA) 80 mg tablet TAKE 1 TABLET BY MOUTH DAILY WITH DINNER *LOWER THE SEROQUEL TO 100 MG IN THE EVENING* - lacosamide (VIMPAT) 100 mg tab Take 1 tablet by mouth two times a day for 180 days. - lurasidone (LATUDA) 20 mg tablet Take 1 tablet by mouth daily with breakfast. - AIMOVIG AUTOINJECTOR 140 mg/mL auto-injector INJECT 1ML SUBCUTANEOUSLY EVERY MONTH - clonazePAM (KLONOPIN) 2 mg tablet Take 1 tablet by mouth three times a day for 180 days. - cloNIDine HCl (CATAPRES) 0.1 mg tablet TAKE 1 TABLET BY MOUTH TWICE A DAY - sertraline (ZOLOFT) 100 mg tablet take [...] and PS 4-8cmh2O. His DME company is [employer] , new mask to fit patient preference, [...] (FLONASE) 50 mcg/actuation nasal spray Use 1 Furman in each nostril twice daily. - albuterol HFA (PROVENTIL HFA, VENTOLIN HFA) 90 mcg/actuation inhaler Inhale 1-2 Puffs as instructed as needed for Wheezing/Shortness of Breath. Problem List As Of Date 05/24/2024 Noted Resolved Epilepsy (HCC) [G40.909] 06/18/2004 Epilepsy [...] (HCC) [G40.309] 09/20/2020 Acute postoperative pain [G89.18] (more content not included)... Normal [facility] MR Lumbar spine WO contrasto n 05-24-2024 IMPRESSION: No significant lumbar spondylosis. Right Castellvi IIa lumbosacral transitional vertebra with osteophytosis at the right SI joint. Anatomic Lumbar Variant: Transitional S1 vertebral body (Right Castellvi IIa classification). L4-5 is considered the level of the iliac crest and there are 5 lumbar-type vertebrae. Flour Worker: APARNA Transcribe Date/Time: May 24 2024 10:33A Dictated by : BÁRBARA DOTSON MD This examination was interpreted and the report reviewed and electronically signed by: GORDON FERRARO MD on May 24 2024 11:05AM [facility] DIVISION OF RADIOLOGY * * *Final Report* * * DATE OF EXAM: May 24 2024 10:30AM QBM 0303 - MRI LUMBAR SPINE WO IVCON / PROCEDURE REASON: Spinal stenosis of lumbar region without neurogenic claudication * * * * Physician Interpretation * * * * EXAMINATION: MRI LUMBAR SPINE WO IVCON CLINICAL HISTORY: Spinal stenosis of lumbar region without neurogenic claudication TECHNIQUE: Routine lumbosacral spine MR protocol without gadolinium. MQ: [id number] COMPARISON: None. RESULT: Counting reference: Lumbosacral junction. For the purposes of this report, L4-5 is considered the level of the iliac crest and there are 5 lumbar-type vertebrae. Anatomic variant: Transitional S1 vertebral body. Right Castellvi IIa classification Localizer images: No additional findings. Alignment: Alignment is anatomic. Bone marrow signal/fracture: No evidence of pathologic marrow infiltration. No evidence of prior fracture. Conus: The conus is within normal limits of signal intensity and morphology. Paraspinal soft tissues: Paraspinal soft tissues are within normal limits. Lower thoracic spine: Visualized lower thoracic canal and foramina are patent. L1-L2: Canal and foramina are patent. L2-L3: Canal and foramina are patent L3-L4: Canal and foramina are patent L4-L5: Canal and foramina are patent L5-S1: Canal and foramina are patent Sacrum and iliac wings: Osteophytosis at the right SI joint. Right L5-S1 pseudoarticulation demonstrates no fluid signal. The visualized sacrum and iliac wings are within normal limits. DIVISION OF RADIOLOGY Provider, [facility] - 05/24/2024 * * *Final Report* * * DATE OF EXAM: May 24 2024 10:30AM QBM 0303 - MRI LUMBAR SPINE WO IVCON / PROCEDURE REASON: Spinal stenosis of lumbar region without neurogenic claudication * * * * Physician Interpretation * * * * EXAMINATION: MRI LUMBAR SPINE WO IVCON CLINICAL HISTORY: Spinal stenosis of lumbar region without neurogenic claudication TECHNIQUE: Routine lumbosacral spine MR protocol without gadolinium. MQ: [email or web address] COMPARISON: None. RESULT: Counting reference: Lumbosacral junction. For the purposes of this report, L4-5 is considered the level of the iliac crest and there are 5 lumbar-type vertebrae. Anatomic variant: Transitional S1 vertebral body. Right Castellvi IIa classification Localizer images: No additional findings. Alignment: Alignment is anatomic. Bone marrow signal/fracture: No evidence of pathologic marrow infiltration. No evidence of prior fracture. Conus: The conus is within normal limits of signal intensity and morphology. Paraspinal soft tissues: Paraspinal soft tissues are within normal limits. Lower thoracic spine: Visualized lower thoracic canal and foramina are patent. L1-L2: Canal and foramina are patent. L2-L3: Canal and foramina are patent L3-L4: Canal and foramina are patent L4-L5: Canal and foramina are patent L5-S1: Canal and foramina are patent Sacrum and iliac wings: Osteophytosis at the right SI joint. Right L5-S1 pseudoarticulation demonstrates no fluid signal. The visualized sacrum and iliac wings are within normal limits. IMPRESSION IMPRESSION: No significant lumbar spondylosis. Right Castellvi IIa lumbosacral transitional vertebra with osteophytosis at the right SI joint. Anatomic Lumbar Variant: Transitional S1 vertebral body (Right Castellvi IIa classification). L4-5 is considered the level of the iliac crest and there are 5 lumbar-type vertebrae. Flour Worker: PSCB Transcribe Date/Time: May 24 2024 10:33A Dictated by : BÁRBARA DOTSON MD This examination was interpreted and the report reviewed and electronically signed by: GORDON FERRARO MD on May 24 2024 11:05AM EST [facility] Radiology Study observation (narrative) [facility] MR Lumbar spine WO contrastO rdered By: [facility] Provider on 05-24-2024 [facility] MRI LUMBAR SPINE WO IVCONon 05-24-2024 MRI LUMBAR SPINE WO IVCON * * *Final Report* * * DATE OF EXAM: May 24 2024 10:30AM QBM 0303 - MRI LUMBAR SPINE WO IVCON / PROCEDURE REASON: Spinal stenosis of lumbar region without neurogenic claudication * * * * Physician Interpretation * * * * EXAMINATION: MRI LUMBAR SPINE WO IVCON CLINICAL HISTORY: Spinal stenosis of lumbar region without neurogenic claudication TECHNIQUE: Routine lumbosacral spine MR protocol without gadolinium. MQ: [email or web address] COMPARISON: None. RESULT: Counting reference: Lumbosacral junction. For the purposes of this report, L4-5 is considered the level of the iliac crest and there are 5 lumbar-type vertebrae. Anatomic variant: Transitional S1 vertebral body. Right Castellvi IIa classification Localizer images: No additional findings. Alignment: Alignment is anatomic. Bone marrow signal/fracture: No evidence of pathologic marrow infiltration. No evidence of prior fracture. Conus: The conus is within normal limits of signal intensity and morphology. Paraspinal soft tissues: Paraspinal soft tissues are within normal limits. Lower thoracic spine: Visualized lower thoracic canal and foramina are patent. L1-L2: Canal and foramina are patent. L2-L3: Canal and foramina are patent L3-L4: Canal and foramina are patent L4-L5: Canal and foramina are patent L5-S1: Canal and foramina are patent Sacrum and iliac wings: Osteophytosis at the right SI joint. Right L5-S1 pseudoarticulation demonstrates no fluid signal. The visualized sacrum and iliac wings are within normal limits. IMPRESSION: No significant lumbar spondylosis. Right Castellvi IIa lumbosacral transitional vertebra with osteophytosis at the right SI joint. Anatomic Lumbar Variant: Transitional S1 vertebral body (Right Castellvi IIa classification). L4-5 is considered the level of the iliac crest and there are 5 lumbar-type vertebrae. Flour Worker: PSCB Transcribe Date/Time: May 24 2024 10:33A Dictated by : BÁRBARA DOTSON MD This examination was interpreted and the report reviewed and electronically signed by: GORDON FERRARO MD on May 24 2024 11:05AM EST [id number] Normal [facility] No Panel Informationon 05-23 Karla Ferraro MA 05/23 1:36 PM L Inj/Asp: bilateral knee on 05/23/2024 1:23 PM Indications: diagnostic evaluation Details: 22 G needle Medications (Right): 12 mg betamethasone acetate-betamethasone sodium phosphate 6 (3-3) MG/ML Medications (Left): 12 mg betamethasone acetate-betamethasone sodium phosphate 6 (3-3) MG/ML Outcome: tolerated well, no immediate complications Consent was given by the patient. On license of [facility] Radiology Study observation (narrative) [facility] XR Knee - left 3 [facility] Result: Bilateral standing PA, bilateral sunrise, and lateral of the affected knee were imaged today in the office. Patient shows no significant deterioration from previous imaging with mostly superior patellar spurring. No evidence of bony tumor acute fracture seen On license of [facility] XR Knee - right 3 [facility] Result: Bilateral standing PA, bilateral sunrise, and lateral of the affected knee were imaged today in the office. Patient shows no significant deterioration from previous imaging with mostly superior patellar spurring. No evidence of bony tumor acute fracture seen On license of [facility] CNOVon 04-18-2024 CNOV Office Visit (PSYAEM ) -- JAYE HARVEY ([id number]) 1980 M Date Time Provider Department 04/18/24 1:00 PM SOBEIDA GALVAN PSYAEM During your visit today, we recorded the following information about you: Sobeida Galvan MD 04/18/2024 1:11 PM Signed Called patient. Is out sick. Will reschedule Referring Provider: SELF [[id number]] Allergies As of Date: 04/18/2024 Noted Allergy Reaction KEPPRA (LEVETIRACETAM) 07/31/2010 14 - Other: See Comments Comments: Increases his ADHD KETOROLAC TROMETHAMINE 09/14/2016 16 - Unknown Comments: unknown PRISTIQ (DESVENLAFAXINE) 01/12/2014 14 - Other: See Comments Comments: agustin Date Reviewed: 03/31/2024 Reviewed by: Krzysztof Blankenship DO - Fully Assessed Primary Visit Diagnosis:NO SHOW Prescriptions as of 04/18/2024 - lacosamide (VIMPAT) 100 mg tab Take 1 tablet by mouth two times a day for 180 days. - rizatriptan (MAXALT BIRTH ATTENDANT) 10 mg disintegrating tablet DISSOLVE 1 TABLET BY MOUTH NEEDED AT ONSET OF HEADACHE. MAY REPEAT AFTER 2 HOURS. DO NOT EXCEED 30MG PER DAY - lurasidone (LATUDA) 20 mg tablet Take 1 tablet by mouth daily with breakfast. - AIMOVIG AUTOINJECTOR 140 mg/mL auto-injector INJECT 1ML SUBCUTANEOUSLY EVERY MONTH - clonazePAM (KLONOPIN) 2 mg tablet Take 1 tablet by mouth three times a day for 180 days. - cloNIDine HCl (CATAPRES) 0.1 mg tablet TAKE 1 TABLET BY MOUTH TWICE A DAY - lurasidone (LATUDA) 80 mg tablet Take 1 tablet by mouth once daily. - sertraline (ZOLOFT) 100 mg tablet take [...] and PS 4-8cmh2O. His DME company is [employer] , new mask to fit patient preference, [...] (FLONASE) 50 mcg/actuation nasal spray Use 1 Furman in each nostril twice daily. - albuterol HFA (PROVENTIL HFA, VENTOLIN HFA) 90 mcg/actuation inhaler Inhale 1-2 Puffs as instructed as needed for Wheezing/Shortness of Breath. Problem List As Of Date 04/18/2024 Noted Resolved Epilepsy (HCC) [G40.909] 06/18/2004 Epilepsy [...] recent episode depress*05/27/2023 HTN (hypertension) [I10] 08/26/2023 Degeneration of intervertebral disc of lumbar r*03/30/2024 Radiculopathy, lumbosacral region [M54.17] 03/30/2024 Chronic bilateral low back pain with bilateral *03/30/2024 Encounter Status:Closed by SOBEIDA GALVAN on 04/18/24 [facility] CNPNon 04-01-2024 CNPN Telephone ([facility]) -- JAYE HARVEY ([id number]) 1980 M Date Time Provider Department 04/01/24 MARILYN FINCH [facility] During your visit today, we recorded the following information about you: Marilyn Finch, RT(R) 04/01/2024 11:07 AM Signed Marylu, We approved Jaye to get his MRI but unfortunately, due to the restrictions of the MRI from the device, we may not get the whole lumbar spine. Obviously every patient is different but there is a chance we could get some cut off at L-1, but we will not know until we scan him. If you have any questions please let us know. Thanks, Tim Finch RT(R)(CT)(MR), MRSO Allergies As of Date: 04/01/2024 Noted Allergy Reaction KEPPRA (LEVETIRACETAM) 07/31/2010 14 - Other: See Comments Comments: Increases his ADHD KETOROLAC TROMETHAMINE 09/14/2016 16 - Unknown Comments: unknown PRISTIQ (DESVENLAFAXINE) 01/12/2014 14 - Other: See Comments Comments: sz Date Reviewed: 03/31/2024 Reviewed by: Krzysztof Blankenship DO - Fully Assessed Reason for Visit: Orders [681] Prescriptions as of 04/01/2024 - lacosamide (VIMPAT) 100 mg tab Take 1 tablet by mouth two times a day for 180 days. - rizatriptan (MAXALT BIRTH ATTENDANT) 10 mg disintegrating tablet DISSOLVE 1 TABLET BY MOUTH NEEDED AT ONSET OF HEADACHE. MAY REPEAT AFTER 2 HOURS. DO NOT EXCEED 30MG PER DAY - lurasidone (LATUDA) 20 mg tablet Take 1 tablet by mouth daily with breakfast. - AIMOVIG AUTOINJECTOR 140 mg/mL auto-injector INJECT 1ML SUBCUTANEOUSLY EVERY MONTH - clonazePAM (KLONOPIN) 2 mg tablet Take 1 tablet by mouth three times a day for 180 days. - cloNIDine HCl (CATAPRES) 0.1 mg tablet TAKE 1 TABLET BY MOUTH TWICE A DAY - lurasidone (LATUDA) 80 mg tablet Take 1 tablet by mouth once daily. - sertraline (ZOLOFT) 100 mg tablet take [...] and PS 4-8cmh2O. His DME company is [employer] , new mask to fit patient preference, [...] (FLONASE) 50 mcg/actuation nasal spray Use 1 Furman in each nostril twice daily. - albuterol HFA (PROVENTIL HFA, VENTOLIN HFA) 90 mcg/actuation inhaler Inhale 1-2 Puffs as instructed as needed for Wheezing/Shortness of Breath. Problem List As Of Date 04/01/2024 Noted Resolved Epilepsy (HCC) [G40.909] 06/18/2004 Epilepsy with altered consciousness without int*07/31/2010 Depression with anxiety [F41.8] 01/12/2014 Respiratory failure requiring intubation ([facility]) *04/07/2016 Acute respiratory failure ([facility]) [J96.00] 04/07/2016 03/26/2019 Hx of suicide attempt [Z91.51] 04/07/2016 Bipolar II disorder ([facility]) [F31.81] 07/02/2016 Obesity, Class I, BMI 30-34.9 [...] recent episode depress*05/27/2023 HTN (hypertension) [I10] 08/26/2023 Degeneration of intervertebral disc of lumbar r*03/30/2024 Radiculopathy, lumbosacral region [M54.17] 03/30/2024 Chronic bilateral low back pain with bilateral *03/30/2024 (more content not included)... Normal [facility] CNCOon 03-30-2024 CNCO Letter Text Normal [facility] CNOVon 03-30-2024 CNOV Office Visit (PAINLN ) -- JAYE HARVEY ([id number]) 1980 M Date Time Provider Department 03/30/24 4:30 PM KRZYSZTOF BLANKENSHIP PAINLN During your visit today, we recorded the following information about you: Pulse Weight Height 110/minute 100.6 kg 1.803 m Krzysztof Blankenship, DO 03/31/2024 9:27 AM Signed [facility] Initial Evaluation March 30, 2024 This appointment was requested by Sobeida Ghotra MD , for my medical opinion regarding the evaluation and management of the patient's Jaye Harvey problems, and my final recommendations will be communicated to the requesting health care provider by way of the shared medical record for internal providers or letter via the [employer] for external providers. Patient Entered Questionnaires PROMIS Score Percentiles 01/26/2023 04/27/2023 05/08/2023 PROMIS Global Health Scale Physical Health Percentile 10 10 4 15 Mental Health Percentile 3 3 3 9 Multiple values from one day are sorted in reverse-chronological order Percentiles provide an indication of how the patient's score ranks in relation to the general population. Higher percentile rankings indicate better function/quality of life. 50th percentile is the average of the general population and indicates half of respondents had a worse score. > 31st percentile is within normal limits or better * < 31st percentile is at least ? SD worse than population, which may be clinically relevant < 16th percentile is at least 1 SD worse than population and warrants attention SUBJECTIVE: Jaye W Harvey a 43 year old presents to [facility], accompanied by self only, was referred by Sobeida Ghotra MD , for an initial evaluation for low back. Work related injury: not work related The pain is located low back pain and radiates into his bilateral lower extremities Pain started: years ago but he had a re-occurrence 6 months ago Patient describes pain as: constant burning , pressure Intensity of pain: 6 on a scale of 0-10. Pain Score Range 6/10 to 10/10 Pain is aggravated by: standing and sitting Pain is alleviated by: Biofreeze (+) temporary relief Tens Unit (+) temporary relief Heating Pad (+) temporary relief Pain interferes with: physical activity, work, and social activities. Current treatments and response: PT [facility] x 1 session 02/2024 (-) relief Response to previous injections: N/A PREVIOUS TREATMENTS LASTING SIX WEEKS IN THE LAST SIX MONTHS Active conservative therapy lasting 6 weeks in the last six months (see below) 1. Physical therapy: Yes 02/2024 x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 Bilirubin levels. A metabolite of Naproxen, O-desmethylnaproxen, has been shown to interfere with the Jendrassik-Grof method for measuring Total Bilirubin. Result Comment: Samp les from patients who have taken Naproxen have shown spurious elevation in Total Bilirubin levels. A metabolite of Naproxen, O-desmethylnaproxen, has been shown to interfere with the Jendrassik-Grof method for measuring Total Bilirubin. Performed By: #### P T, KAREN, ETOH, CBC, OSMO, LACTIC, ACET, PTT #### [address] Comprehensive Metabolic Pane james 09-25-2023 Albumin [Mass/Vol] 3.9 g/dL Normal 3.5-5.7 [facility] Comment on above: Performed By: #### P T, KAREN, ETOH, CBC, OSMO, LACTIC, ACET, PTT #### [address] Anion gap [Moles/Vol] 9.8 mmol/L Normal 6.0-15.0 [facility] Comment on above: Performed By: #### P T, KAREN, ETOH, CBC, OSMO, LACTIC, ACET, PTT #### [address] Calcium [Mass/Vol] 8.7 mg/dL Normal 8.6-10.3 [facility] Comment on above: Performed By: #### P T, KAREN, ETOH, CBC, OSMO, LACTIC, ACET, PTT #### [address] Chloride [Moles/Vol] 104 mmol/L Normal 98-107 [facility] Comment on above: Performed By: #### P T, KAREN, ETOH, CBC, OSMO, LACTIC, ACET, PTT #### [address] CO2 [Moles/Vol] 25.1 mmol/L Normal 21.0-31.0 [facility] Comment on above: Performed By: #### P T, KAREN, ETOH, CBC, OSMO, LACTIC, ACET, PTT #### [address] Creatinine [Mass/Vol] 0.73 mg/dL Normal 0.70-1.30 [facility] Comment on above: Performed By: #### P T, KAREN, ETOH, CBC, OSMO, LACTIC, ACET, PTT #### [address] Creatinine Clr Calc Pharmacy 161.23 Normal [facility] Comment on above: Result Comment: PERF ORMED BY: [place] [address] PATHOLOGIST [employer]PL[employer] RUBY ESPARZA M.D. Performed By: #### P T, KAREN, ETOH, CBC, OSMO, LACTIC, ACET, PTT #### [place] [address] [place] GFR/1.73 sq M.predicted MDRD (S/P/Bld) [Vol rate/Area] mL/min/{1.73_m2} Normal [facility] Comment on above: Performed By: #### P T, KAREN, ETOH, CBC, OSMO, LACTIC, ACET, PTT #### [address] Glucose [Mass/Vol] 114 mg/dL High 70-100 [facility] Comment on above: Result Comment: [facility] Glucose Reference Range is dependent on time and content of last meal. Glucose of more than 200 mg/dL in a nonstressed, ambulatory subject supports the diagnosis of Diabetes Mellitus. ADA recommended reference range Performed By: #### P T, KAREN, ETOH, CBC, OSMO, LACTIC, ACET, PTT #### [address] Potassium [Moles/Vol] 3.9 mmol/L Normal 3.5-5.1 [facility] Comment on above: Performed By: #### P T, KAREN, ETOH, CBC, OSMO, LACTIC, ACET, PTT #### [place] [address] [place] Sodium [Moles/Vol] 135 mmol/L Low 136-145 [facility] Comment on above: Performed By: #### P T, KAREN, ETOH, CBC, OSMO, LACTIC, ACET, PTT #### [place] [address] [place] Urea nitrogen [Mass/Vol] 5 mg/dL Low 7-25 [facility] Comment on above: Performed By: #### P T, KAREN, ETOH, CBC, OSMO, LACTIC, ACET, PTT #### [place] [address] [place] Protein [Mass/volume] in Ser um or PlasmaOrdered By: Mary Calhoun on 09-25-2023 Protein [Mass/Vol] 6.6 g/dL Normal 6.4-8.9 [facility] Comment on above: Performed By: #### P T, KAREN, ETOH, CBC, OSMO, LACTIC, ACET, PTT #### [facility] [address] Serum globulin measurement b y calculation (mass/volume)Ordered By: Mary Calhoun on 09-25-2023 Globulin (S) [Mass/Vol] 2.7 g/dL Normal [facility] Comment on above: Performed By: #### P T, KAREN, ETOH, CBC, OSMO, LACTIC, ACET, PTT #### [facility] [address] Serum or plasma albumin/glob ulin mass ratioOrdered By: Mary Calhoun on 09-25-2023 Albumin/Globulin [Mass ratio] 1.4 {ratio} [facility] Comment on above: Performed By: #### P T, KAREN, ETOH, CBC, OSMO, LACTIC, ACET, PTT #### [facility] [address] [place] [address] XR chest 2V*on 09-25-2023 XR chest 2V* [place] [address] XRay Report Signed Patient: Jaye Harvey MR#: [id number] 3 : 1980 Acct:[id number] Age/Sex: 42 / M ADM Date: 09/23/23 Loc: Room: [address] [place] [address] Type: ADM IN Attending Dr: Mary Calhoun [...] Ann Ennis M.D.09/25/2023 3:19 PM Dictation Location: [place] [address] Transcribed By: [facility] 09/25/231518 Dictated By: Carol Ann Ennis MD 09/25/231517 Signed By: 09/25/231518 Normal [facility] Basic Metabolic Panelon Anion gap [Moles/Vol] 9.1 mmol/L Normal 6.0-15.0 [facility] Comment on above: Performed By: #### P T, KAREN, ETOH, CBC, OSMO, LACTIC, ACET, PTT #### [address] Calcium [Mass/Vol] 8.1 mg/dL Low 8.6-10.3 [facility] Comment on above: Performed By: #### P T, KAREN, ETOH, CBC, OSMO, LACTIC, ACET, PTT #### [address] Chloride [Moles/Vol] 108 mmol/L High 98-107 [facility] Comment on above: Performed By: #### P T, KAREN, ETOH, CBC, OSMO, LACTIC, ACET, PTT #### [address] CO2 [Moles/Vol] 26.2 mmol/L Normal 21.0-31.0 [facility] Comment on above: Performed By: #### P T, KAREN, ETOH, CBC, OSMO, LACTIC, ACET, PTT #### [address] Creatinine [Mass/Vol] 0.65 mg/dL Low 0.70-1.30 [facility] Comment on above: Performed By: #### P T, KAREN, ETOH, CBC, OSMO, LACTIC, ACET, PTT #### [address] Creatinine Clr Calc Pharmacy 179.70 Normal [facility] Comment on above: Performed By: #### P T, KAREN, ETOH, CBC, OSMO, LACTIC, ACET, PTT #### [place] [address] [place] GFR/1.73 sq M.predicted MDRD (S/P/Bld) [Vol rate/Area] mL/min/{1.73_m2} Normal [facility] Comment on above: Performed By: #### P T, KAREN, ETOH, CBC, OSMO, LACTIC, ACET, PTT #### [address] Glucose [Mass/Vol] 143 mg/dL High 70-100 [facility] Comment on above: Result Comment: [place] Glucose Reference Range is dependent on time and content of last meal. Glucose of more than 200 mg/dL in a nonstressed, ambulatory subject supports the diagnosis of Diabetes Mellitus. ADA recommended reference range Performed By: #### P T, KAREN, ETOH, CBC, OSMO, LACTIC, ACET, PTT #### [address] Potassium [Moles/Vol] 4.3 mmol/L Normal 3.5-5.1 [facility] Comment on above: Performed By: #### P T, KAREN, ETOH, CBC, OSMO, LACTIC, ACET, PTT #### [place] [address] [place] Sodium [Moles/Vol] 139 mmol/L Normal 136-145 [facility] Comment on above: Performed By: #### P T, KAREN, ETOH, CBC, OSMO, LACTIC, ACET, PTT #### [address] Urea nitrogen [Mass/Vol] 9 mg/dL Normal 7-25 [facility] Comment on above: Performed By: #### P T, KAREN, ETOH, CBC, OSMO, LACTIC, ACET, PTT #### [place] [id number] [facility] ECG 12 lead ECGon 09-24-2023 ECG 12 lead ECG [place] [address] Electrocardiograph Report Signed Patient: Jaye Harvey MR#: [id number] 3 : 1980 Acct:[id number] Age/Sex: 42 / M ADM Date: 09/23/23 Loc: Room: [address] [place] [address] Type: ADM IN Attending Dr: Mary Calhoun MD Ordering Provider: Arabella Ferraro APRN Date of Service: 09/24/2302/08/500 ECG/ECG 12 [...] Horne MD 0 09/24/23 1146 Normal [facility] ECG 12 lead ECG [facility] [place] [id number] Electrocardiograph Report Signed Patient: Jaye Harvey MR#: [id number] 3 : 1980 Acct:[id number] Age/Sex: 42 / M ADM Date: 09/23/23 Loc: Room: [address] [place] [address] Type: DIS IN Attending Dr: Mary Calhoun [...] in Lateral leads Confirmed by Madai Morfin ([id number]) on 10/05/2023 5:08:14 PM Referred By: Electronically Signed By:Madai Morfin Transcribed By: MUS Signed By Madai Morfin MD 4 1708 Normal [facility] Magnesium [Mass/volume] in S jaspreet or PlasmaOrdered By: Arabella Ferraro on 09-24-2023 Magnesium [Mass/Vol] 2.1 mg/dL Normal 1.9-2.7 [facility] Comment on above: Result Comment: PERF ORMED BY: [place] [address] PATHOLOGIST [employer] EMPLOYEE RUBY ESPARZA M.D. Performed By: #### P T, KAREN, ETOH, CBC, OSMO, LACTIC, ACET, PTT #### [address] No Panel InformationOrdered By: Sherif Francis on 09-24-2023 Blood Gas Critical Value See comment [facility] Comment on above: Critical Value mcmanus d on: 09/24/2023 at 04:29 Blood Gas Sample Site Venous Fir [facility] FiO2 21 % [facility] Venous Blood Base Excess -1.8 mmol/L -3.0-3.0 [facility] Venous Blood Oxygen Content 8.5 mmol/L 6.6-9.7 [facility] Venous Blood Oxygen Saturation 92.4 % 73.0-76.0 [facility] Venous Blood Partial Pressure CO2 37.0 mm[Hg] 38.0-50.0 [facility] Venous Blood Partial Pressure O2 58.7 mm[Hg] 35.0-45.0 [facility] Venous Blood pH 7.40 7.32-7.43 [facility] Venous Blood GasOrdered By: Sherif Francis on 09-24-2023 CO2 [Moles/Vol] 23.6 mmol/L Low 24.0-29.0 [facility] Comment on above: Performed By: #### P T, KAREN, ETOH, CBC, OSMO, LACTIC, ACET, PTT #### [address] HCO3 (Bld) [Moles/Vol] 22.5 mmol/L Low 23.0-29.0 [facility] Comment on above: Performed By: #### P T, KAREN, ETOH, CBC, OSMO, LACTIC, ACET, PTT #### [address] Venous Blood Gason 4 Respiratory Critical Normal [facility] Comment on above: Result Comment: Crit ical Value called on: 09/24/2023 at 04:29 PERFORMED BY: [place] [address] PATHOLOGIST [employer] EMPL[employer]EE RUBY ESPARZA M.D. Performed By: #### P T, KAREN, ETOH, CBC, OSMO, LACTIC, ACET, PTT #### [address] VBG Base Excess -1.8 mmol/L Normal -3.0-3.0 [facility] Comment on above: Performed By: #### P T, KAREN, ETOH, CBC, OSMO, LACTIC, ACET, PTT #### [address] VBG Draw Site Venous Normal [facility] Comment on above: Performed By: #### P T, KAREN, ETOH, CBC, OSMO, LACTIC, ACET, PTT #### [address] VBG Frac Inspired O2 21 % Normal [facility] Comment on above: Performed By: #### P T, KAREN, ETOH, CBC, OSMO, LACTIC, ACET, PTT #### [address] VBG O2 Content 8.5 mmol/L Normal 6.6-9.7 [facility] Comment on above: Performed By: #### P T, KAREN, ETOH, CBC, OSMO, LACTIC, ACET, PTT #### [address] VBG Oxygen Saturation 92.4 % Off scale high 73.0-76.0 [facility] Comment on above: Performed By: #### P T, KAREN, ETOH, CBC, OSMO, LACTIC, ACET, PTT #### [address] VBG PCO2 37.0 mm[Hg] Low 38.0-50.0 [facility] Comment on above: Performed By: #### P T, KAREN, ETOH, CBC, OSMO, LACTIC, ACET, PTT #### [address] VBG PH Venous PH 7.40 Normal 7.32-7.43 [facility] Comment on above: Performed By: #### P T, KAREN, ETOH, CBC, OSMO, LACTIC, ACET, PTT #### [address] VBG PO2 58.7 mm[Hg] High 35.0-45.0 [facility] Comment on above: Performed By: #### P T, KAREN, ETOH, CBC, OSMO, LACTIC, ACET, PTT #### [address] Acetaminophen [Mass/volume] in Serum or PlasmaOrdered By: Nirmal Hernandez on 09-23-2023 Acetaminophen [Mass/Vol] 0.4 ug/mL Low 10.0-30.0 [facility] Comment on above: Result Comment: PERF ORMED BY: [place] [address] PATHOLOGIST [employer]PL[employer]EE RUBY ESPARZA M.D. Performed By: #### P T, KAREN, ETOH, CBC, OSMO, LACTIC, ACET, PTT #### [address] Activated partial thrombopla stin time (aPTT) in platelet poor plasma by coagulation aOrdered By: Nirmal Hernandez on 09-23-2023 aPTT Coag (PPP) [Time] 29.6 s 25.1-36.5 [facility] Comment on above: A hematocrit value g reater than 55% may lead to inaccurate results in coagulation testing. Patients having hematocrit values >55% require a special collection tube for coagulation studies. Please contact the laboratory at [phone] for redraw instructions. Alanine aminotransferase [En zymatic activity/volume] in Serum or PlasmaOrdered By: Nirmal Hernandez on 09-23-2023 ALT [Catalytic activity/Vol] 26 U/L Normal 7-52 [facility] Comment on above: Performed By: #### P T, KAREN, ETOH, CBC, OSMO, LACTIC, ACET, PTT #### [facility] [address] Albumin [Mass/volume] in Ser um or Plasma by Bromocresol green (BCG) dye binding methoOrdered By: Nirmal Hernandez on 09-23-2023 Albumin BCG dye [Mass/Vol] 4.4 g/dL 3.5-5.7 [facility] Alkaline phosphatase [Enzyma tic activity/volume] in Serum or PlasmaOrdered By: Nirmal Hernandez on 09-23-2023 ALP [Catalytic activity/Vol] 57 U/L Normal 34-104 [facility] Comment on above: Performed By: #### P T, KAREN, ETOH, CBC, OSMO, LACTIC, ACET, PTT #### [facility] [address] [place] [address] Amphetamine Screen Ql (U)Ord ered By: Nirmal Hernandez on 09-23-2023 Amphetamines Ql (U) Negative Negative [facility] Arterial Blood Gason 024 ABG Base Excess 0.5 mmol/L Normal -3.0-3.0 [facility] Comment on above: Performed By: #### P T, KAREN, ETOH, CBC, OSMO, LACTIC, ACET, PTT #### [facility] [address] [place] [address] ABG Frac Inspired O2 36 % Normal [facility] Comment on above: Performed By: #### P T, KAREN, ETOH, CBC, OSMO, LACTIC, ACET, PTT #### [address] ABG Liter Flow 4 Normal [facility] Comment on above: Performed By: #### P T, KAREN, ETOH, CBC, OSMO, LACTIC, ACET, PTT #### [address] ABG Oxygen Content 9.7 mmol/L Normal 6.6-9.7 [facility] Comment on above: Performed By: #### P T, KAREN, ETOH, CBC, OSMO, LACTIC, ACET, PTT #### [address] ABG Oxygen Saturation 99.4 % Normal 95.0-100.0 [facility] Comment on above: Performed By: #### P T, KAREN, ETOH, CBC, OSMO, LACTIC, ACET, PTT #### [address] ABG PCO2 34.3 mm[Hg] Low 35.0-45.0 [facility] Comment on above: Performed By: #### P T, KAREN, ETOH, CBC, OSMO, LACTIC, ACET, PTT #### [address] ABG PH 7.46 High 7.35-7.45 [facility] Comment on above: Performed By: #### P T, KAREN, ETOH, CBC, OSMO, LACTIC, ACET, PTT #### [address] ABG PO2 153.9 mm[Hg] Off scale high 80.0-100.0 [facility] Comment on above: Performed By: #### P T, KAREN, ETOH, CBC, OSMO, LACTIC, ACET, PTT #### [address] Respiratory Critical Normal [facility] Comment on above: Result Comment: Crit ical Value called on: 09/23/2023 at 19:20 PERFORMED BY: [place] [address] PATHOLOGIST [employer] EMPLOYEE RUBY ESPARZA M.D. Performed By: #### P T, KAREN, ETOH, CBC, OSMO, LACTIC, ACET, PTT #### [address] VBG Draw Site Left Radial Normal [facility] Comment on above: Performed By: #### P T, KAREN, ETOH, CBC, OSMO, LACTIC, ACET, PTT #### [address] ABG Base Excess 0.0 mmol/L Normal -3.0-3.0 [facility] Comment on above: Performed By: #### U RDS, UA #### [address] ABG Frac Inspired O2 36 % Normal [facility] Comment on above: Performed By: #### U RDS, UA #### [address] ABG Liter Flow 4 Normal [facility] Comment on above: Performed By: #### U RDS, UA #### [address] ABG Oxygen Content 10.0 mmol/L High 6.6-9.7 [facility] Comment on above: Performed By: #### U RDS, UA #### [address] ABG Oxygen Saturation 97.0 % Normal 95.0-100.0 [facility] Comment on above: Performed By: #### U RDS, UA #### [address] ABG PCO2 38.2 mm[Hg] Normal 35.0-45.0 [facility] Comment on above: Performed By: #### U RDS, UA #### [address] ABG PH 7.42 Normal 7.35-7.45 [facility] Comment on above: Performed By: #### U RDS, UA #### [address] ABG PO2 84.9 mm[Hg] Normal 80.0-100.0 [facility] Comment on above: Performed By: #### U RDS, UA #### [address] CO2 [Moles/Vol] 25.4 mmol/L Normal 23.0-27.0 [facility] Comment on above: Performed By: #### U RDS, UA #### [address] HCO3 (Bld) [Moles/Vol] 24.2 mmol/L Normal 23.0-29.0 [facility] Comment on above: Performed By: #### U RDS, UA #### [address] Respiratory Critical Normal [facility] Comment on above: Result Comment: Crit ical Value called on: 09/23/2023 at 18:26 PERFORMED BY: [place] [address] PATHOLOGIST [employer] RUBY ESPARZA M.D. Performed By: #### U RDS, UA #### [address] VBG Draw Site Left Radial Normal [facility] Comment on above: Performed By: #### U RDS, UA #### [address] Arterial Blood GasOrdered By : Nirmal Hernandez on 09-23-2023 CO2 [Moles/Vol] 24.7 mmol/L Normal 23.0-27.0 [facility] Comment on above: Performed By: #### P T, KAREN, ETOH, CBC, OSMO, LACTIC, ACET, PTT #### [address] HCO3 (Bld) [Moles/Vol] 23.7 mmol/L Normal 23.0-29.0 [facility] Comment on above: Performed By: #### P T, KAREN, ETOH, CBC, OSMO, LACTIC, ACET, PTT #### [address] Aspartate aminotransferase [ Enzymatic activity/volume] in Serum or PlasmaOrdered By: Nirmal Hernandez on 09-23-2023 AST [Catalytic activity/Vol] 16 U/L Normal 13-39 [facility] Comment on above: Performed By: #### P T, KAREN, ETOH, CBC, OSMO, LACTIC, ACET, PTT #### [address] Automated basophil %Ordered By: Nirmal Hernandez on 09-23-2023 Basophils/100 WBC (Bld) 0.5 % Normal . [facility] Comment on above: Performed By: #### P T, KAREN, ETOH, CBC, OSMO, LACTIC, ACET, PTT #### [address] Automated basophil countOrde red By: Nirmal Hernandez on 09-23-2023 Basophils (Bld) [#/Vol] 0.0 10*3/uL Normal 0.0-0.2 [facility] Comment on above: Result Comment: PERF ORMED BY: [place] [address] PATHOLOGIST [employer] EMPL[employer]EE RUBY ESPARZA M.D. Performed By: #### P T, KAREN, ETOH, CBC, OSMO, LACTIC, ACET, PTT #### [address] Automated blood monocyte cou ntOrdered By: Nirmal Hernandez on 09-23-2023 Monocytes (Bld) [#/Vol] 0.5 10*3/uL Normal 0.0-0.8 [facility] Comment on above: Performed By: #### P T, KAREN, ETOH, CBC, OSMO, LACTIC, ACET, PTT #### [address] Automated eosinophil %Ordere d By: Nirmal Hernandez on 09-23-2023 Eosinophils/100 WBC (Bld) 0.8 % Normal . [facility] Comment on above: Performed By: #### P T, KAREN, ETOH, CBC, OSMO, LACTIC, ACET, PTT #### [facility] [address] Automated eosinophil countOr dered By: Nirmal Hernandez on 09-23-2023 Eosinophils (Bld) [#/Vol] 0.1 10*3/uL Normal 0.0-0.45 [facility] Comment on above: Performed By: #### P T, KAREN, ETOH, CBC, OSMO, LACTIC, ACET, PTT #### [address] Automated monocyte %Ordered By: Nirmal Hernandez on 09-23-2023 Monocytes/100 WBC (Bld) 5.9 % Normal . [facility] Comment on above: Performed By: #### P T, KAREN, ETOH, CBC, OSMO, LACTIC, ACET, PTT #### [address] Automated neutrophil %Ordere d By: Nirmal Hernandez on 09-23-2023 Neutrophils/100 WBC (Bld) 75.4 % Normal . [facility] Comment on above: Performed By: #### P T, KAREN, ETOH, CBC, OSMO, LACTIC, ACET, PTT #### [address] Automated urine color determ inationOrdered By: Nirmal Hernandez on 09-23-2023 Color (U) Yellow Normal Yellow [facility] Comment on above: Order Comment: Name Collection Type:: Straight Catheter Performed By: #### U RDS, UA #### [address] Barbiturates [Presence] in U rine by Screen methodOrdered By: Nirmal Hernandez on 09-23-2023 Barbiturates Screen Ql (U) Negative Negative [facility] Benzodiazepines Screen Ql (U )Ordered By: Nirmal Hernandez on 09-23-2023 Benzodiazepines Ql (U) Negative Negative [facility] Benzoylecgonine [Presence] i n Urine by Screen methodOrdered By: Nirmal Hernandez on 09-23-2023 Benzoylecgonine Screen Ql (U) Negative Negative [facility] Bilirubin Test strip Ql (U)O rdered By: Nirmal Hernandez on 09-23-2023 Bilirubin Ql (U) Negative Negative [facility] Bilirubin.total [Mass/volume ] in Serum or PlasmaOrdered By: Nirmal Hernandez on 09-23-2023 Bilirubin [Mass/Vol] 0.8 mg/dL Normal 0.3-1.0 [facility] Comment on above: Performed By: #### P T, KAREN, ETOH, CBC, OSMO, LACTIC, ACET, PTT #### [address] head/brain wo conon 09-22 CT head/brain wo con [facility] Main [place] [address] [place] [address] CT Scan Report Signed Patient: Jaey Harvey MR#: [id number] 3 : 1980 Acct:[id number] Age/Sex: 42 / M ADM Date: 09/23/23 Loc: ER Room: Type: [facility] ER Attending Dr: Copies to: Nirmal Hernandez DO Ordering Provider: Nrimal Hernandez DO Date of Service: 09/23/23 CT/CT [...] Ann Ennis M.D.09/23/2023 8:35 PM Dictation Location: [place] [address] Transcribed By: SAKINA 09/23/232034 Dictated By: Carol Ann Ennis MD 09/23/232032 Signed By: 09/23/232034 Normal [facility] Calcium [Mass/volume] in Ser um or PlasmaOrdered By: Nirmal Hernandez on 09-23-2023 Calcium [Mass/Vol] 9.4 mg/dL Normal 8.6-10.3 [facility] Comment on above: Performed By: #### P T, KAREN, ETOH, CBC, OSMO, LACTIC, ACET, PTT #### [facility] [address] [place] [id number] [facility] Cannabinoids [Presence] in U rine by Screen methodOrdered By: Nirmal Hernandez on 09-23-2023 Cannabinoids Screen Ql (U) Negative Negative [facility] Comment on above: These are unconfirme d results and should not be used for legal purposes. Drug Cut-Off Concentration: AMPH 1000 ng/mL MANUEL 200 ng/mL LEXIE 200 ng/mL COCM 300 ng/mL OP 300 ng/mL PCP 25 ng/mL THC 20 ng/mL Carbon dioxide, total [Moles /volume] in Serum or PlasmaOrdered By: Nirmal Hernandez on 09-23-2023 CO2 [Moles/Vol] 28.3 mmol/L Normal 21.0-31.0 [facility] Comment on above: Performed By: #### P T, KAREN, ETOH, CBC, OSMO, LACTIC, ACET, PTT #### [facility] [address] [place] [id number] [place] Chloride [Moles/volume] in S jaspreet or PlasmaOrdered By: Nirmal Hernandez on 09-23-2023 Chloride [Moles/Vol] 103 mmol/L Normal 98-107 [facility] Comment on above: Performed By: #### P T, KAREN, ETOH, CBC, OSMO, LACTIC, ACET, PTT #### [facility] [address] [place] [id number] [place] Complete Blood Count Auto Di ffon 09-23-2023 Mean Corpuscular HGB Conc 33.9 g/dL Normal 32.5-35.6 [facility] Comment on above: Performed By: #### P T, KAREN, ETOH, CBC, OSMO, LACTIC, ACET, PTT #### [address] Monocytes/100 WBC (Bld) 15.64 % Normal 0.00-20.00 [facility] Comment on above: Performed By: #### P T, KAREN, ETOH, CBC, OSMO, LACTIC, ACET, PTT #### [address] NRBC% 0.0 /100{WBC} Normal 0-0.5 [facility] Comment on above: Performed By: #### P T, KAREN, ETOH, CBC, OSMO, LACTIC, ACET, PTT #### [address] Comprehensive Metabolic Pane james 09-23-2023 Albumin [Mass/Vol] 4.4 g/dL Normal 3.5-5.7 [facility] Comment on above: Performed By: #### P T, KAREN, ETOH, CBC, OSMO, LACTIC, ACET, PTT #### [address] Creatinine Clr Calc Pharmacy 138.72 Normal [facility] Comment on above: Performed By: #### P T, KAREN, ETOH, CBC, OSMO, LACTIC, ACET, PTT #### [address] GFR/1.73 sq M.predicted MDRD (S/P/Bld) [Vol rate/Area] mL/min/{1.73_m2} Normal [facility] Comment on above: Performed By: #### P T, KAREN, ETOH, CBC, OSMO, LACTIC, ACET, PTT #### [address] Creatine kinase [Enzymatic a ctivity/volume] in Serum or PlasmaOrdered By: Nirmal Hernandez on 09-23-2023 CK [Catalytic activity/Vol] 71 U/L Normal 30-223 [facility] Comment on above: Performed By: #### P T, KAREN, ETOH, CBC, OSMO, LACTIC, ACET, PTT #### [address] Creatinine [Mass/volume] in Serum or PlasmaOrdered By: Nirmal Munoztenzin on 09-23-2023 Creatinine [Mass/Vol] 0.84 mg/dL Normal 0.70-1.30 [facility] Comment on above: Performed By: #### P T, KAREN, ETOH, CBC, OSMO, LACTIC, ACET, PTT #### [address] Drug Screen,Urineon 09-23-19 24 Amphetamine Screen,Urine Negative Normal Negative [facility] Comment on above: Performed By: #### U RDS, UA #### [address] Barbiturate Screen,Urine Negative Normal Negative [facility] Comment on above: Performed By: #### U RDS, UA #### [address] Benzodiazepines Screen,Urine Negative Normal Negative [facility] Comment on above: Performed By: #### U RDS, UA #### [address] Cannabinoid Screen,Urine Negative Normal Negative [facility] Comment on above: Result Comment: Thes e are unconfirmed results and should not be used for legal purposes. Drug Cut-Off Concentration: AMPH 1000 ng/mL MANUEL 200 ng/mL LEXIE 200 ng/mL COCM 300 ng/mL OP 300 ng/mL PCP 25 ng/mL THC 20 ng/mL PERFORMED BY: [place] [address] PATHOLOGIST [employer] EMPLOYEE RUBY ESPARZA M.D. Performed By: #### U RDS, UA #### [address] Cocaine Screen,Urine Negative Normal Negative [facility] Comment on above: Performed By: #### U RDS, UA #### [address] Opiate Screen,Urine Negative Normal Negative [facility] Comment on above: Performed By: #### U RDS, UA #### [place] [id number] [place] Phencyclidine Screen,Urine Negative Normal Negative [facility] Comment on above: Performed By: #### U RDS, UA #### [address] ECG 12 lead ECGon 09-23-2023 ECG 12 lead ECG [place] [address] Electrocardiograph Report Signed Patient: Jaye Harvey MR#: [id number] 3 : 1980 Acct:[id number] Age/Sex: 42 / M ADM Date: 09/23/23 Loc: Room: [address] [place] [address] Type: DIS IN Attending Dr: Mary Calhoun [...] change was found Confirmed by Madai Morfin ([id number]) on 10/05/2023 5:08:11 PM Referred By: Electronically Signed By:Madai Morfin Transcribed By: MUS Signed By Madai Morfin MD 4 [phone] Normal [facility] ECG 12 lead ECG [place] [address] Electrocardiograph Report Signed Patient: Jaye Harvey MR#: [id number] [birth year] : 1980 Acct:[id number] Age/Sex: 42 / M ADM Date: 09/23/23 Loc: Room: [address] [place] [address] Type: ADM IN Attending Dr: Sherif Francis [...] Sinus tachycardia Confirmed by Nirmal HERNANDEZ DO ([id number]) on 09/24/2023 1:38:26 AM Referred By: Electronically Signed By:Nirmal HERNANDEZ DO Transcribed By: MUS Signed By Nirmal Hernandez DO 0 09/24/[address] [facility] ECG 12 lead ECG [facility] Main [place] [id number] Electrocardiograph Report Signed Patient: Jaye Harvey MR#: [id number] 3 : 1980 Acct:[id number] Age/Sex: 42 / M ADM Date: 09/23/23 Loc: Room: [address] [place] [address] Type: ADM IN Attending Dr: Sherif Francis [...] Sinus tachycardia Confirmed by Nirmal HERNANDEZ DO ([id number]) on 09/24/2023 1:37:11 AM Referred By: Electronically Signed By:Nirmal HERNANDEZ DO Transcribed By: MUS Signed By Nirmal Hernandez, DO 0 09/24/[address] [facility] ECG 12 lead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 Use 1 Furman in each nostril twice daily. albuterol HFA (PROVENTIL HFA, VENTOLIN HFA) 90 mcg/actuation inhaler Inhale 1-2 Puffs as instructed as needed for Wheezing/Shortness of Breath. No current facility-administered medications for this visit. 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 Risk Factors: Previous suicide attempt(s) and Feelings of hopelessness Protective Factors: Effective and accessible clinical care, Strong tie (more content not included)... Normal [facility] HISTORY PHYSICALon 3 HISTORY PHYSICAL HNO ID: [id number] Author: Josi Queen PA-C Service: ? Author Type: Physician Dry Mill Worker Type: HANDP Filed: 05/12/2023 11:38 AM Note Text: PS NEW - PSYCHIATRIC ASSESSMENT INTENSIVE OUTPATIENT PROGRAM Patient was seen for an initial evaluation. All information is from Patient report except when noted. This evaluation is NOT intended for forensic, disability or child custody purposes. With the patient consent, visit was performed virtually. This virtual visit was performed using [employer] Video Visit. It required patient-provider interaction for the medical decision making as documented below. Persons present: patient and EMIGDIO provider. The patient or the patient's patient access representative consented to this virtual encounter. I have communicated my name and active licensure. The patient's identity and physical location were verified at the time of this visit. Either the patient or their legal patient access representative has been informed of the risks and benefits of -- and alternatives to -- treatment through a remote evaluation and consents to proceed with the evaluation remotely. 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 HPI: Jaye Harvey is a 42 year old Single male with a past history of depression, bipolar disorder, PTSD, anxiety, and ADHD who presents for admission to the [facility] program. Jaye reports worsening depressive symptoms with [...] usually helps. He also reports using the [employer] system for medication dispensing so that he [...] restless, distracte (more content not included)... Normal [facility] JAYE HARVEY ([id number]) 1980 M Date Time Provider Department 05/05/23 NAMITA LARKIN [id number] During your visit today, we recorded the [...] - Fully Assessed Reason for Visit: Scheduling [9541] Prescriptions as of 05/05/2023 - lurasidone (LATUDA) [...] daily as needed for anxiety - rizatriptan (MAXALT-BIRTH ATTENDANT) 10 mg disintegrating tablet Take 1 tablet [...] and PS 4-8cmh2O. His DME company is [employer] , new mask to fit patient preference, [...] (FLONASE) 50 mcg/actuation nasal spray Use 1 Furman in each nostril twice daily. - albuterol [...] Bipolar II disorder ([facility]) [F31.81] 07/02/2016 Obesity, Class I, BMI 30-34.9 [E66.9] 11/24/2017 Partial epilepsy with impairment of consciousne*01/12/2018 Gastroesophageal reflux disease without esophag*02/03/2018 S/P placement of VNS (vagus nerve stimulation) *12/20/2018 Psychophysiologic insomnia [F51.04] 06/20/2020 HIMA (obstructive sleep apnea) [G47.33] 06/20/2020 Generalized epilepsy ([facility]) [G40.309] 09/20/2020 Acute postoperative pain [G89.18] 09/21/2020 Complex partial seizures evolving to generalize*02/12/2021 Recurrent major depression in partial remission*09/02/2021 Migraine without aura, intractable, with status*12/22/2022 Encounter Status:Closed by TIESHA SUNSHINE on 05/05/23 [facility] CONSULT Mallory 04-27-2023 CONSULT MILENA HNO ID: [id number] Author: Jazmin Skelton LPCC Service: Behavioral Health Author Type: Counselor Type: Consult Progress Note Filed: 04/27/2023 3:35 PM Note Text: -- Summary: DA for DBT IOP -- DIAGNOSTIC ASSESSMENT FOR IOP (INTENSIVE OUTPATIENT PROGRAM) SERVICE DATE: 04/23/2023 SERVICE TIME: 1PM REFERRED BY: Michael Cordoba APRN, CNP Virtual platform used: Defixo This Visit is being conducted with the use of a HIPPA compliant telecommunication system permitting interactive audio and or video platform. Proper identity, and was established. Informed consent was obtained via electronic signature via patient's Docalytics account. Location of patient: [place] Pt confirmed phone, email and address as noted below: Patient telephone: [phone] Patient email: [email or web address] Patient [address]: [address] [place] [address] ([facility]) Pt provided release of information to the following (KALLIE form was sent to patient via email. Patient was asked to sign and return to therapist. Pt was made aware that electronic or written signature is required for release of information): Emergency contact: Nida Raya (sister) [phone] Prescriber/psychiatrist: RADHA Lindsey Therapist: ALVIN Perez (local to patient) Team Members Participating in Plan of Care: Seema Roberts, [facility] Daisy Mejia, [facility], ATR Afua Rae, [facility] Jazmin Skelton, [facility] Mya Tena, MSN, PRODUCT PICKER, CERTIFIED SHORTHAND REPORTER, PMHNP- Amy Ray APRN, CERTIFIED SHORTHAND REPORTER Josi Queen PA-C Identifying Information: Jaye Harvey is a 42 year old male who [...] up everywhere , and jose worked for [employer], and they lived in [place], [place], [place], [place], [place], [place]; moved around a lot for [employer]'s work. Moved to [place], [place] when pt was 15 years old. Raised by mom and jose guadalupedad, biological dad not around. Stayed with grandparents for two months each summer. Pt has one full sister, who is 2 years younger. Stepdad and mom had two children as well: Lionel (age 32) and Amy (age 26). Lived in [place] for 10 years; moved back to [place] in 2011. ETHNIC/HINDU BACKGROUND: Does your ethnic or episcopalian background require special considerations? No Does spirituality play a role in your life? 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 Normal [facility] ED Note-Physicianon 04-23-20 ED Note-Physician Basic Information Time Seen: Tomasz Woodward PA-C 04/22/2023 21:33 Chief Complaint pt to ED [...] day(s), # 12 tab(s), Refills(s) 0, Pharmacy: [facility]/pharmacy #[id number], 178, cm, 04/22/23 21:32:00 EST, [...] Uriel Nunez In 3 days 04/25/2023 EST [facility] [place] [id number] Business (1) Additional Instructions: Follow-up with your primary care provider in 3 to 5 days. If symptoms worsen, do not improve, or new symptoms arise please report back to emergency department for further evaluation. Patient Education Acute Knee Pain, Adult, Ttyq-kg-Hhnd Attestation Patient seen and evaluated by the physician emergency room physician assistant. Attending physician was present in the emergency department and supervised c (more content not included)... Normal [facility] Comment on above: Result Comment: Elec [...] mGy = na DAP = na Normal [facility] Consent for Treatmenton Consent for Treatment [id number] Normal [facility] Discharge Instructionson Discharge Instructions [id number] Normal [facility] ED Clinical Summaryon 2022 ED Clinical Summary (Inserted Image. Nat ble to display) [place] [id number] ED Clinical Summary Person Information Name: JAYE HARVEY [facility] Age: 42 Years : 1980 Sex: Male Language: Mongolian PCP: Uriel Nunez MD Marital Status: Single Phone: [phone] Visit Id: Visit Reason: Knee pain-swelling; LEFT [...] 04/22/2023 22:45:43 04/22/2023 22:45:43 04/22/2023 22:45:43 ADDRESS: [address] [place] [id number] PHYS DOC NOTES: MEDICAL INFORMATION: Prescriptions Given: New Medications [id number], [address], [place] [id number], [phone] diclofenac topical (Voltaren Gel 1% Gel) 1 [...] EDUCATION INFORMATION: Instructions: Acute Knee Pain, Adult, Iqhz-mu-Hnrb Follow up: With: Address: When: Uriel Nunez [address] [place] [address], [facility] [place] [phone] Business (1) In 3 days 04/25/2023 Comments: Follow-up with your primary care provider in 3 to 5 days. If symptoms worsen, do not improve, or new symptoms arise please report back to emergency department for further evaluation. DIAGNOSIS: Left knee pain Normal [facility] ED Patient Education Noteon 04-22-2023 ED Patient [...] under your knee. General instructions ? Take ilrt-iwo-wmujwzm and prescription medicines only as told by [...] Reviewed: 10/17/2020 Elsevier Patient Education ? 2022 [employer] Normal [facility] ED Patient Summaryon 023 ED Patient Summary (Inserted Image. Nat ble to display) [address] [address] Patient Discharge Instructions Person Information Name: JAYE HARVEY Age: 42 Years Arrival Date: 04/22/2023 21:20:13 Discharge Diagnosis: Left knee pain Primary Care Physician: Uriel Nunez MD Provider Information Primary Provider: Issa Levy DO Advanced Barrel Planer:None The exam and treatment you received in the Emergency Department were for an urgent problem and are not intended as complete care. It is important that you follow up with a doctor, nurse practitioner, or physician?s emergency room physician assistant for ongoing care. If your symptoms become worse or you do not improve as expected and you are unable to reach your usual health care provider, you should return to the Emergency Department. We are available 24 hours a day. JAYE HARVEY has been given the following list of patient education materials, prescriptions and follow-up instructions: Follow-up Instructions: With: Address: When: Uriel Nunez [address] [place] [address], [place] [address] Business (1) In 3 days [...] Patient Education Materials: Acute Knee Pain, Adult, Jpwg-gx-Lklh A MESSAGE TO ALL PATIENTS REGARDING OPIOIDS PRESCRIPTION OPIOIDS: WHAT YOU NEED TO KNOW Prescription opioids can be used to help relieve lbdbtyxn-xz-psutsm pain and are often prescribed following a [...] and overd (more content not included)... Normal [facility] CNPNon 04-07-2023 CNPN Telephone (PSMMMR) -- JAYE HARVEY ([id number]) 1980 M Date Time Provider Department 04/07/23 [facility] During your visit today, we recorded the following information about you: Lewis Zelaya [facility] 04/07/2023 2:28 PM Signed I spoke with Jaye today about the IOP. He was referred by Michael cordoba APRN. He said he took an overdose one week ago and was seen in the ED in [place] but released. He used to see Milan Chi MD in the past. Since he lives outside the [facility] and is a high suicide risk, he would not be appropriate for the virtual IOP. I told him we have an in person IOP at [facility], but he says his doctor only wants him to drive short distances. I encouraged him to contact his [facility] for services. He indicated he needs a community case manager to help him with various things, and that Michael thought the IOP could help with that. I told him we don't have case management services, and that his [facility] agency can assist with that. [...] daily as needed for anxiety - rizatriptan (MAXALT-BIRTH ATTENDANT) 10 mg disintegrating tablet Take 1 tablet [...] and PS 4-8cmh2O. His DME company is [employer] , [employer] mask to fit patient preference, ramp, humidification [...] (FLONASE) 50 mcg/actuation nasal spray Use 1 Furman in each nostril twice daily. - albuterol [...] intractable, with status*12/22/2022 Encounter Status:Closed by LEWIS ZELAYA on 04/07/23 [facility] Calculus Analysison 03-12-20 Calcium oxalate dihydrate Infrared spectroscopy (Stone) [Mass fraction] 80 % Invalid Interpretation Code [facility] Comment on above: Performed By: #### 1 [id number] ####[facility] [address] [place] [address] Calcium oxalate monohydrate (Stone) [Mass fraction] 15 % Invalid Interpretation Code [facility] Comment on above: Performed By: #### 1 [id number] ####[facility] [address] [place] [address] Calculus analysis [Interp] Comment Invalid Interpretation Code [facility] Comment on above: Result Comment: Calc ium phosphate (hydroxyl form) includes hydroxyapatite, amorphous calcium phosphate, and whitlockite. Hydroxyapatite is the most common of the calcium phosphate salts found in human kidney stones. Performed By: #### 1 [id number] ####[address] [address] Color (Stone) [place] Invalid Interpretation Code [facility] Comment on above: Performed By: #### 1 [id number] ####[address] [address] Composition Comment Invalid Interpretation Code [facility] Comment on above: Result Comment: Perc entage (Represents the % composition) Performed By: #### 1 [id number] ####[address] [address] Disclaimer: Comment Invalid Interpretation Code [facility] Comment on above: Result Comment: This test was developed and its performance characteristics determined by [employer]. It has not been cleared or approved by the Food and Drug Administration. Performed at: [address] [id number] PhD Juan Andrew Performed By: #### 1 [id number] ####[address] [address] Hydroxyapatite: 5 % Invalid Interpretation Code [facility] Comment on above: Performed By: #### 1 [id number] ####[address] [address] Laboratory comment Luis (Report) Comment Invalid Interpretation Code [facility] Comment on above: Result Comment: Edison de la cruz questions regarding Calculi Analysis contact [facility] at: [phone]. Performed By: #### 1 [id number] ####[address] [address] Please Note: Comment Invalid Interpretation Code [facility] Comment on above: Result Comment: Calc jim report will follow via computer, mail or mainspring strip gauger delivery. Performed By: #### 1 [id number] ####[facility] [address] [place] [address] Size (Stone) [Entitic vol] 4x4 Invalid Interpretation Code [facility] Comment on above: Result Comment: Isaiah le piece received. Performed By: #### 1 [id number] ####[place] [address] [place] [id number] Specimen source subject Nom Comment Invalid Interpretation Code [facility] Comment on above: Result Comment: Not provided Performed By: #### 1 [id number] ####[address] [address] Stone Photo Comment Invalid Interpretation Code [facility] Comment on above: Result Comment: Phot ograph will follow under a separate cover Performed By: #### 1 [id number] ####[place] [address] [place] [address] Weight (Stone) 25 mg Invalid Interpretation Code [facility] Comment on above: Performed By: #### 1 [id number] ####[place] [address] [place] [address] Screenson 03-06-2023 Screens [id number] Normal [facility] Screens [id number]#1.00TIFF Normal [facility] Formson 03-05-2023 Forms [id number]#1.00TIFF Normal [facility] Patient Educationon 03-04-20 23 Patient Education Nephrology [...] ? 8 oz (237 mL) of milk, gkaxfgp-jrcoywxvnmjq-qycgz milk, and calcium-fortifiedfruit juice. Calcium-fortified means that [...] Spinach (cooked), rhubarb, beets, sweet potatoes, and Yemeni chard. ? Peanuts. ? Potato chips, pashto fries, and baked potatoes with skin on. ? Nuts and nut products. ? Chocolate. ? If you regularly take a diuretic medicine, make sure to eat at least 1 or 2 servings of fruits or vegetables that are high in potassium each day. These include: ? Avocado. ? Banana. ? Lampasas, prune, carrot, or tomato juice. ? Baked [...] fish oil, or vitamin B6. ? Take erzk-uzc-wkfnkph and prescription medicines only as told by your health care provider. These include supplements. What foods should I limit? Limit your in (more content not included)... 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 CT AP w/o Con 02/23/23 - there [...] Hydronephrosis with renal and ureteral calculous obstruction) [facility] ER f/u from 02/23/23 due to lower abdominal pain, Lt-sided flank pain, and hematuria, was tx for UTI, acute urinary retention, and kidney stones, was given Tamsulosin, Keflex, Zofran, and Preston CT AP w/o Con 02/23/23 - there [...] Uric Acid -Dieta (more content not included)... [facility] Comment on above: Result Comment: Elec tronically Signed By: Espinoza OWENS, Nahed Lara\.br\Date and Time Signed: 03/04/23 11:50 EDT\.br\Electronically Co-Signed By: Rona Shrestha\.br\Date and Time Co-Signed: 03/04/23 10:57 EDT ED Note-Physicianon 02-28-20 ED Note-Physician [id number]#1.00TIFF [facility] RAD - CT Reporton 02-27-2023 RAD - CT Report [id number]#1.00TIFF [facility] CNPRosemary 02-10-2023 CNPN Telephone (NEADFV) -- JAYE HARVEY ([id number]) 1980 M Date Time Provider Department 02/10/23 GERALDINE ALONSOADFV During your visit today, we recorded the following information about you: Reina Griffith 02/10/2023 10:26 AM Signed Received [employer] prior auth request from [employer], uploaded to chart and forwarded for review. Stephanie Liao RN 02/10/2023 10:49 AM Signed Approvedon February 09 PA Case: [id number], Status: Approved, Coverage Starts on: 02/09/2023 12:00:00 AM, Coverage Ends on: 05/17/2023 12:00:00 AM. Stephanie Liao RN 06/26/2023 10:57 AM Signed Pa submitted via covermeds JAYE HARVEY (Guerrero: [email or web address]) Allergies As of Date: 02/10/2023 [...] daily as needed for anxiety - rizatriptan (MAXALT-BIRTH ATTENDANT) 10 mg disintegrating tablet Take 1 tablet [...] and PS 4-8cmh2O. His DME company is [employer] , new mask to fit patient preference, [...] (FLONASE) 50 mcg/actuation nasal spray Use 1 Furman in each nostril twice daily. - albuterol [...] intractable, with status*12/22/2022 Encounter Status:Closed by REINA GRIFFITH on 02/13/23 [facility] 12-10-2022 CNPN Telephone (NEADFV) -- JAYE HARVEY ([id number]) 1980 Date Time Provider Department 12/10/22 GERALDINE ALONSO NEADFV During your visit today, we recorded the following information about you: Alicia Boyce 12/10/2022 12:08 PM Signed Received fax from [facility] with CT brain report, ER notes and labs. Scanned into [employer]. Stephanie Liao 12/10/2022 12:14 PM Signed Imaging results forwarded to provider for review Allergies As of Date: 12/10/2022 Noted Allergy Reaction KEPPRA (LEVETIRACETAM) 07/31/2010 14 - Other: See Comments Comments: Increases his ADHD KETOROLAC TROMETHAMINE 09/14/2016 16 - Unknown Comments: unknown PRISTIQ (DESVENLAFAXINE) 01/12/2014 14 - Other: See Comments Comments: sz Date Reviewed: 10/27/2022 Reviewed by: Kleismit, Paige, SALES EXPERT [employer] THE[employer] - Fully Assessed Reason for Visit: Received Outside Medical Records [[id number]] Cmt: [facility] Prescriptions as of 01/29/2023 - QUEtiapine (SEROQUEL) 300 mg tablet Take 1 tablet by mouth daily at bedtime. - EMGALITY PEN 120 mg/mL pen INJECT 1 MILLILITER SUBCUTANEOUSLY ONCE EVERY MONTH. DO NOT SHAKE. - rizatriptan (MAXALT-BIRTH ATTENDANT) 10 mg disintegrating tablet Take 1 tablet [...] and PS 4-8cmh2O. His DME company is [employer] mask to fit patient preference, ramp, humidification [...] (FLONASE) 50 mcg/actuation nasal spray Use 1 Furman in each nostril twice daily. - albuterol [...] Encounter Status:Closed by ALICIA BOYCE on 01/29/23 [facility] 11-20-2022 [facility] Telephone (NEADFV) -- JAYE HARVEY ([id number]) 1980 M Date Time Provider Department 11/20/22 GERALDINE ALONSO During your visit today, we recorded the following information about you: Alicia Boyce 11/20/2022 9:45 AM Signed Received fax from [employer] stating that prior authorization for Emgality has [...] EVERY MONTH. DO NOT SHAKE. - rizatriptan (MAXALT-BIRTH ATTENDANT) 10 mg disintegrating tablet Take 1 tablet [...] and PS 4-8cmh2O. His DME company is [employer] , new mask to fit patient preference, [...] (FLONASE) 50 mcg/actuation nasal spray Use 1 Furman in each nostril twice daily. - albuterol HFA (PROVENTIL HFA, VENTOLIN HFA) 90 mcg/actuation inhaler Inhale 1-2 Puffs as instructed as needed for Wheezing/Shortness of Breath. Problem List As Of Date 11/20/2022 Noted Resolved Epilepsy (HCC) [G40.909] 06/18/2004 Epilepsy with altered consciousness without int*07/31/2010 Depression with anxiety [F41.8] 01/12/2014 Respiratory failure requiring intubation (HCC) *04/07/2016 Acute respiratory failure ([facility]) [J96.00] 04/07/2016 03/26/2019 Hx of suicide attempt [...] Status:Closed by ALICIA BOYCE on 01/29/23 Normal [facility] CHEMISTRYOrdered By: SYSTEM SYSTEM on 09-19-2022 Anion gap [Moles/Vol] 11 mmol/L Normal 6 - 16 mEq/L [facility] Chloride [Moles/Vol] 103 mmol/L Normal 101 - 1 11 mmol/L [facility] Remisol CO2 [Moles/Vol] 27 mmol/L Normal 21 - 31 mmol/L [facility] Creatinine [Mass/Vol] 0.8 mg/dL Normal 0.5 - 1.3 mg/dL [facility] GFR/1.73 sq M.predicted among non-blacks MDRD (S/P/Bld) [Vol rate/Area] 115 mL/min/1.73 m2 Normal >=59mL/min /1.73 m2 [facility] Chem S Potassium [Moles/Vol] 4.3 mmol/L Normal 3.5 - 5.3 mmol/L [facility] Sodium [Moles/Vol] 137 mmol/L Normal 135 - 145 mmol/L [facility] Urea nitrogen [Mass/Vol] 15 mg/dL Normal 5 - 21 mg/dL [facility] HEMATOLOGYOrdered By: Daysi Gaxiola on 09-19-2022 Erythrocyte distribution width (RBC) [Ratio] 13.4 % Normal 10.9 - 14.2 % FT HemeAutoSS Hematocrit (Bld) [Volume fraction] 48.6 % [...] Normal 4.0 - 11.0 E9/L FT HemeAutoSS CBC AUTO DIFFon 07-28-2022 BASO # 0.1 103/ul Normal 0.0-0.[address] [facility] Comment on above: Performed By: #### C CLEMENCIA, BMP #### [facility] [address] [place] [address] Dr. Meron Gentile Basophils/100 WBC (Bld) 0.5 % Normal 0.2-2.[address] [facility] Comment on above: Performed By: #### Joselin KHANNA, BMP #### [facility] [address] [place] [address] Dr. Meron Gentile EO # 0.2 103/ul Normal 0.0-0.7 [facility] Comment on above: Performed By: #### C CLEMENCIA, BMP #### [facility] [address] [place] [address] Dr. Meron Gentile Eosinophils/100 WBC (Bld) 2.0 % Normal 0.9-7.[address] [facility] Comment on above: Performed By: #### Joselin KHANNA, BMP #### [facility] [address] [place] [address] Dr. Meron Gentile Erythrocyte distribution width (RBC) [Ratio] 12.5 % Normal 11.0-15.[address] [facility] Comment on above: Performed By: #### Joselin KHANNA, BMP #### [facility] [address] [place] [address] Dr. Meron Gentile Hematocrit (Bld) [Volume fraction] 48.6 % Normal 42.0-54.[address] [facility] Comment on above: Performed By: #### C CLEMENCIA, BMP #### [facility] [address] [place] [address] Dr. Meron Gentile Hemoglobin (Bld) [Mass/Vol] 16.7 g/dL Normal 14.0-18.0 [facility] Comment on above: Performed By: #### C CLEMENCIA, BMP #### [facility] [address] [place] [address] Dr. Meron Gentile IG # 0.03 10e3/ul Normal 0.00-0.[address] [facility] Comment on above: Performed By: #### C CLEMENCIA, BMP #### [facility] [address] [place] [address] Dr. Meron Gentile IG % 0.3 % Normal 0.0-0.5 [facility] Comment on above: Performed By: #### C CLEMENCIA, BMP #### [facility] [address] [place] [address] [address] Meron Gentile LYMPH # 2.0 103/ul Normal 1.2-3.8 [facility] Comment on above: Performed By: #### C CLEMENCIA, BMP #### [facility] [address] [place] [address] Dr. Meron Gentile Lymphocytes/100 WBC (Bld) 20.4 % Critically low 20.5-60.[address] [facility] Comment on above: Performed By: #### C CLEMENCIA, BMP #### [facility] [address] [place] [address] Dr. Meron Gentile MANUAL DIFF REQ NO Normal [facility] Comment on above: Performed By: #### C CLEMENCIA, BMP #### [facility] [address] [place] [address] Dr. Meron Gentile MCH (RBC) [Entitic mass] 28.8 pg Normal 25.9-34.[address] [facility] Comment on above: Performed By: #### C CLEMENCIA, BMP #### [facility] [address] [place] [address] Dr. Meron Gentile MCHC (RBC) [Mass/Vol] 34.4 g/dL Normal 29.9-35.[address] [facility] Comment on above: Performed By: #### C CLEMENCIA, BMP #### [facility] [address] [place] [address] Dr. Meron Gentile MCV (RBC) [Entitic vol] 83.9 fL Normal 80.0-94.0 [facility] Comment on above: Performed By: #### C CLEMENCIA, BMP #### [facility] [address] [place] [address] Dr. Meron Gentile MONO # 0.7 103/ul Normal 0.3-0.[address] [facility] Comment on above: Performed By: #### C CLEMENCIA, BMP #### [facility] [address] [place] [address] [address] Meron Gentile Monocytes/100 WBC (Bld) 7.2 % Normal 1.7-12.[address] [facility] Comment on above: Performed By: #### C MADM, BMP #### [facility] [address] [place] [address] Dr. Meron Gentile NEUT # 6.7 103/ul Critically high 1.4-6.[address] [facility] Comment on above: Performed By: #### C MADM, BMP #### [facility] [address] [place] [address] Dr. Meron Gentile Neutrophils/100 WBC (Bld) 69.6 % Normal 43.0-75.0 [facility] Comment on above: Performed By: #### C MADM, BMP #### [facility] [address] [place] [address] Dr. Meron Gentile Platelet mean volume (Bld) [Entitic vol] 8.7 fL Critically low 9.5-13.[address] [facility] Comment on above: Performed By: #### C MADM, BMP #### [facility] [address] [place] [address] Dr. Meron Gentile PLT 326 103/ul Normal 150-450 [facility] Comment on above: Performed By: #### C DONNIEM, BMP #### [facility] [address] [place] [address] Dr. Meron Gentile RBC 5.79 106/ul Normal 4.70-6.10 [facility] Comment on above: Performed By: #### C MADM, BMP #### [facility] [address] [place] [address] Dr. Meron Gentile WBC 9.6 103/ul Normal 4.0-11.0 [facility] Comment on above: Performed By: #### C MADM, BMP #### [facility] [address] [place] [address] Dr. Meron Gentile CRPon 07-28-2022 CRP [Mass/Vol] mg/L Normal <=1.[address] [facility] Comment on above: Performed By: #### B MP, CRP #### [facility] [address] [place] [address] ABD/PELV W CONon [...] by: OTF PARKS Date: 2022-07-28 21:32 Normal [facility] CT HEAD WO CONon 07-28-2022 CT [...] OTF PARKS Date: 2022-07-28 21:24 Normal [facility] ER URINE PROFILEon 3 Bilirubin Ql (U) Negative Normal NEGATIVE [facility] Comment on above: Performed By: #### E RUR #### [facility] [address] [place] [address] Dr. Meron Gentile Clarity (U) CLEAR Normal CLEAR [facility] Comment on above: Performed By: #### E RUR #### [facility] [address] [place] [address] Dr. Meron Gentile Color (U) LT. YELLOW Normal YELLOW [facility] Comment on above: Performed By: #### E RUR #### [facility] [address] [place] [address] Dr. Meron Gentile ERUENEDELIA A micrscopic examina tion will be performed if indicated. Normal [facility] Comment on above: Performed By: #### E RUR #### [facility] [address] [place] [address] Dr. Meron Gentile Glucose Ql (U) Negative Normal NEGATIVE [facility] Comment on above: Performed By: #### E RUR #### [facility] [address] [place] [address] Dr. Meron Gentile Hemoglobin Ql (U) Negative Normal NEGATIVE [facility] Comment on above: Performed By: #### E RUR #### [facility] [address] [place] [address] Dr. Meron Gentile Ketones Ql (U) Negative Normal NEGATIVE [facility] Comment on above: Performed By: #### E RUR #### [facility] [address] [place] [address] Dr. Meron Gentile LEUKOCYTES Negative Normal NEGATIVE [facility] Comment on above: Performed By: #### E RUR #### [facility] [address] [place] [address] Dr. Meron Gentile Nitrite Ql (U) Negative Normal NEGATIVE [facility] Comment on above: Performed By: #### E RUR #### [facility] [address] [place] [address] Dr. Meron Gentile pH (U) 7.0 [pH] Normal 5-9 [facility] Comment on above: Performed By: #### E RUR #### [facility] [address] [place] [address] Dr. Meron Gentile SPEC GRAVITY <=1.005 Abnormal 1.005-<=1. [address] [facility] Comment on above: Performed By: #### E RUR #### [facility] [address] [place] [address] Dr. Meron Gentile UA PROTEIN Negative Normal NEGATIVE/ TRACE [facility] Comment on above: Performed By: #### E RUR #### [facility] [address] [place] [address] Dr. Meron Gentile UR MICRO IND NOT INDICATED Normal [facility] Comment on above: Performed By: #### E RUR #### [facility] [address] [place] [address] Dr. Meron Gentile Urobilinogen Qn (U) 0.2 {Roel'U}/dL Normal 0.2 - 1. [address] [facility] Comment on above: Performed By: #### E RUR #### [facility] [address] [place] [address] Dr. Meron Gentile PROF CHEM 8 (BAS METB)on Anion gap [Moles/Vol] 11.3 mmol/L Normal [facility] Comment on above: Performed By: #### B MP, CRP #### [facility] [address] [place] [address] Dr. Meron Gentile Calcium [Mass/Vol] 8.9 mg/dL Normal 8.5-10.[address] [facility] Comment on above: Performed By: #### B MP, CRP #### [facility] [address] [place] [address] Dr. Meron Gentile Chloride [Moles/Vol] 102 mmol/L Normal 98-107 [facility] Comment on above: Performed By: #### B MP, CRP #### [facility] [address] [place] [address] Dr. Meron Gentile CO2 [Moles/Vol] 27.5 mmol/L Normal 21.0-32.[address] [facility] Comment on above: Performed By: #### B MP, CRP #### [facility] [address] [place] [address] Dr. Meron Gentile Creatinine [Mass/Vol] 0.67 mg/dL Critically low 0.70-1.[address] [facility] Comment on above: Performed By: #### B MP, CRP #### [facility] [address] [place] [address] Dr. Meron Gentile EGFR-AF CAYMAN ISLANDER >60 Normal >=[address] [facility] Comment on above: Performed By: #### B MP, CRP #### [facility] [address] [address] [address] Meron Gentile EGFR-NON AF CAYMAN ISLANDER >60 Normal >=[address] [facility] Comment on above: Performed By: #### B MP, CRP #### [facility] [address] [place] [address] Dr. Meron Gentile Glucose [Mass/Vol] 117 mg/dL Critically high 74-106 [facility] Comment on above: Performed By: #### B MP, CRP #### [facility] [address] [address] [address] Meron Gentile Potassium [Moles/Vol] 3.8 mmol/L Normal 3.5-5.[address] [facility] Comment on above: Performed By: #### B MP, CRP #### [facility] [address] [place] [address] Dr. Meron Gentile Sodium [Moles/Vol] 137 mmol/L Normal 136-[address] [facility] Comment on above: Performed By: #### B MP, CRP #### [facility] [address] [address] [address] Meron Gentile Urea nitrogen [Mass/Vol] 12.0 mg/dL Normal 7.0-18.[address] [facility] Comment on above: Performed By: #### B MP, CRP #### [facility] [address] [place] [address] Dr. Meron Gentile Urea nitrogen/Creatinine [Mass ratio] 17.9 mg/mg Normal [facility] Comment on above: Performed By: #### B MP, CRP #### [facility] [address] [place] [address] Dr. Meron Gentile XR KNEE LT 4V [...] JAY KATZ Date: 2022-07-28 21:39 Normal [facility] CBC AUTO DIFFon 01-13-2022 BASO # 0.1 103/ul Normal 0.0-0.[address] [facility] Comment on above: Performed By: #### C BC #### [facility] [address] [place] [address] Dr. Meron Gentile Basophils/100 WBC (Bld) 0.3 % Normal 0.2-2.[address] [facility] Comment on above: Performed By: #### C BC #### [facility] [address] [place] [address] Dr. Meron Gentile EO # 0.0 103/ul Normal 0.0-0.7 [facility] Comment on above: Performed By: #### C BC #### [facility] [address] [place] [address] Dr. Meron Gentile Eosinophils/100 WBC (Bld) 0.1 % Critically low 0.9-7.[address] [facility] Comment on above: Performed By: #### C BC #### [facility] [address] [place] [address] Dr. Meron Gentile Erythrocyte distribution width (RBC) [Ratio] 12.4 % Normal 11.0-15.[address] [facility] Comment on above: Performed By: #### C BC #### [facility] [address] [place] [address] Dr. Meron Gentile Hematocrit (Bld) [Volume fraction] 44.3 % Normal 42.0-54.[address] [facility] Comment on above: Performed By: #### C BC #### [facility] [address] [place] [address] Dr. Meron Gentile Hemoglobin (Bld) [Mass/Vol] 15.0 g/dL Normal 14.0-18.[address] [facility] Comment on above: Performed By: #### C BC #### [facility] [address] [place] [address] Dr. Meron Gentile IG # 0.28 10e3/ul Critically high 0.00-0.[address] [facility] Comment on above: Performed By: #### C BC #### [facility] [address] [place] [address] Dr. Meron Gentile IG % 1.7 % Critically high 0.0-0.[address] [facility] Comment on above: Performed By: #### C BC #### [facility] [address] [place] [address] Dr. Meron Gentile LYMPH # 3.4 103/ul Normal 1.2-3.[address] [facility] Comment on above: Performed By: #### C BC #### [facility] [address] [place] [address] Dr. Meron Gentile Lymphocytes/100 WBC (Bld) 20.2 % Critically low 20.5-60.[address] [facility] Comment on above: Performed By: #### C BC #### [facility] [address] [place] [address] Dr. Meron Gentile MANUAL DIFF REQ NO Normal [facility] Comment on above: Performed By: #### C BC #### [facility] [address] [place] [address] Dr. Meron Gentile MCH (RBC) [Entitic mass] 29.2 pg Normal 25.9-34.[address] [facility] Comment on above: Performed By: #### C BC #### [facility] [address] [place] [address] Dr. Meron Gentile MCHC (RBC) [Mass/Vol] 33.9 g/dL Normal 29.9-35.[address] [facility] Comment on above: Performed By: #### C BC #### [facility] [address] [address] [address] Meron Gentile MCV (RBC) [Entitic vol] 86.4 fL Normal 80.0-94.[address] [facility] Comment on above: Performed By: #### C BC #### [facility] [address] [address] [address] Meron Gentile MONO # 1.3 103/ul Critically high 0.3-0.[address] [facility] Comment on above: Performed By: #### C BC #### [facility] [address] [place] [address] Dr. Meron Gentile Monocytes/100 WBC (Bld) 7.5 % Normal 1.7-12.[address] [facility] Comment on above: Performed By: #### C BC #### [facility] [address] [place] [address] Dr. Meron Gentile NEUT # 11.7 103/ul Critically high 1.4-6.[address] [facility] Comment on above: Performed By: #### C BC #### [facility] [address] [place] [address] Dr. Merno Gentile Neutrophils/100 WBC (Bld) 70.2 % Normal 43.0-75.[address] [facility] Comment on above: Performed By: #### C BC #### [facility] [address] [place] [address] Dr. Meron Gentile Platelet mean volume (Bld) [Entitic vol] 8.6 fL Critically low 9.5-13.[address] [facility] Comment on above: Performed By: #### C BC #### [facility] [address] [place] [address] Dr. Meron Gentile PLT 369 103/ul Normal 150-450 [facility] Comment on above: Performed By: #### C BC #### [facility] [address] [place] [address] Dr. Meron Gentile RBC 5.13 106/ul Normal 4.70-6.[address] [facility] Comment on above: Performed By: #### C BC #### [facility] [address] [address] [address] Meron Gentile WBC 16.7 103/ul Critically high 4.0-11.[address] [facility] Comment on above: Performed By: #### C BC #### [facility] [address] [place] [address] Dr. Meron Gentile PROF 14(COMP METB)on 022 Albumin [Mass/Vol] 3.6 g/dL Normal 3.4-5.[address] [facility] Comment on above: Performed By: #### B MP, CRP #### [facility] [address] [place] [address] Dr. Meron Gentile Albumin/Globulin [Mass ratio] 1.1 {ratio} Normal [facility] Comment on above: Performed By: #### B MP, CRP #### [facility] [address] [place] [address] Dr. Meron Gentile ALP [Catalytic activity/Vol] 59 U/L Normal 46-[address] [facility] Comment on above: Performed By: #### B MP, CRP #### [facility] [address] [place] [address] Dr. Meron Gentile ALT [Catalytic activity/Vol] 36 U/L Normal 16-[address] [facility] Comment on above: Performed By: #### B MP, CRP #### [facility] [address] [address] [address] Meron Gentile Anion gap [Moles/Vol] 10.2 mmol/L Normal [facility] Comment on above: Performed By: #### B MP, CRP #### [facility] [address] [place] [address] Dr. Meron Gentile AST [Catalytic activity/Vol] 11 U/L Critically low 15-[address] [facility] Comment on above: Performed By: #### B MP, CRP #### [facility] [address] [place] [address] Dr. Meron Gentile Bilirubin [Mass/Vol] 0.4 mg/dL Normal 0.2-1.[address] [facility] Comment on above: Performed By: #### B MP, CRP #### [facility] [address] [address] [address] Meron Gentile Calcium [Mass/Vol] 8.6 mg/dL Normal 8.5-10.[address] [facility] Comment on above: Performed By: #### B MP, CRP #### [facility] [address] [address] [address] Meron Gentile Chloride [Moles/Vol] 99 mmol/L Normal 98-[address] [facility] Comment on above: Performed By: #### B MP, CRP #### [facility] [address] [address] [address] Meron Gentile CO2 [Moles/Vol] 28.2 mmol/L Normal 21.0-32.[address] [facility] Comment on above: Performed By: #### B MP, CRP #### [facility] [address] [place] [address] Dr. Meron Gentile Creatinine [Mass/Vol] 0.77 mg/dL Normal 0.70-1.[address] [facility] Comment on above: Performed By: #### B MP, CRP #### [facility] [address] [address] [address] Meron Gentile EGFR-AF CAYMAN ISLANDER >60 Normal >=[address] [facility] Comment on above: Performed By: #### B MP, CRP #### [facility] [address] [place] [address] Dr. Meron Gentile EGFR-NON AF CAY[place] ISLANDER >60 Normal >=[address] [facility] Comment on above: Performed By: #### B MP, CRP #### [facility] [address] [address] [address] Meron Gentile Globulin (S) [Mass/Vol] 3.2 g/dL Normal [facility] Comment on above: Performed By: #### B MP, CRP #### [facility] [address] [address] [address] Meron Gentile Glucose [Mass/Vol] 107 mg/dL Critically high 74-106 [facility] Comment on above: Performed By: #### B MP, CRP #### [facility] [address] [address] [address] Meron Gentile Potassium [Moles/Vol] 3.4 mmol/L Critically low 3.5-5.[address] [facility] Comment on above: Performed By: #### B MP, CRP #### [facility] [address] [address] [address] Meron Gentile Protein [Mass/Vol] 6.8 g/dL Normal 6.4-8.[address] [facility] Comment on above: Performed By: #### B MP, CRP #### [facility] [address] [address] [address] Meron Gentile Sodium [Moles/Vol] 134 mmol/L Critically low 136-145 [facility] Comment on above: Performed By: #### B MP, CRP #### [facility] [address] [address] [address] Meron Gentile Urea nitrogen [Mass/Vol] 10.0 mg/dL Normal 7.0-18.[address] [facility] Comment on above: Performed By: #### B MP, CRP #### [facility] [address] [address] [address] Meron Gentile Urea nitrogen/Creatinine [Mass ratio] 13.0 mg/mg Normal [facility] Comment on above: Performed By: #### B MP, CRP #### [facility] [address] [place] [address] Dr. Meron Gentile TROPONIN, HIGH SENSITIVITYon 01-13-2022 HSTROP 5.3 pg/mL Normal 4.0-76.[address] [facility] Comment on above: Result Comment: CUT- OFF POINTS HAVE BEEN ESTABLISHED BASED ON THE FOURTH UNIVERSAL DEFINITIONS OF MYOCARDIAL INFARCTION. THE UPPER REFERENCE LIMIT (URL) OF TROPONIN, DEFINED THE 99TH PERCENTILE OF cTnI DISTRIBUTION IN A REFERENCE POPULATION, HAS BEEN CONFIRMED THE DECISION THRESHOLD FOR SC DIAGNOSIS. Performed By: #### B MP, CRP #### [facility] [address] [place] [address] Dr. Meron Gentile XR CHEST 1 Von [...] by: YAMILETH LEE Date: 2022-01-12 22:[address] [facility] No Panel Informationon 01-07 [facility] C[facility] 3-6on 2 CK [Catalytic activity/Vol] 98 U/L Normal 39-[address] [facility] Comment on above: Performed By: #### C MREP #### [facility] [address] [place] [address] Dr. Meron Gentile CK.MB [Mass/Vol] 1.08 ng/mL Normal <=3.[address] [facility] Comment on above: Performed By: #### C MREP #### [facility] [address] [place] [address] Dr. Meron Gentile HSTROP 6.2 pg/mL Normal 4.0-76.[address] [facility] Comment on above: Result Comment: CUT- OFF POINTS HAVE BEEN ESTABLISHED BASED ON THE FOURTH UNIVERSAL DEFINITIONS OF MYOCARDIAL INFARCTION. THE UPPER REFERENCE LIMIT (URL) OF TROPONIN, DEFINED THE 99TH PERCENTILE OF cTnI DISTRIBUTION IN A REFERENCE POPULATION, HAS BEEN CONFIRMED THE DECISION THRESHOLD FOR SC DIAGNOSIS. Performed By: #### C MREP #### [facility] [address] [place] [address] Dr. Meron Gentile XR CHEST 1 Von [...] by: NADIRA MARTINI Date: 2022-01-05 22:[address] [facility] CARDIAC TYLER ADMITon 022 CK [Catalytic activity/Vol] 107 U/L Normal 39-[address] [facility] Comment on above: Performed By: #### C MADM, BMP #### [facility] [address] [place] [address] Dr. Meron Gentile CK.MB [Mass/Vol] 1.26 ng/mL Normal <=3.[address] [facility] Comment on above: Performed By: #### C MADM, BMP #### [facility] [address] [place] [address] Dr. Meron Gentile HSTROP 6.3 pg/mL Normal 4.0-76.[address] [facility] Comment on above: Result Comment: CUT- OFF POINTS HAVE BEEN ESTABLISHED BASED ON THE FOURTH UNIVERSAL DEFINITIONS OF MYOCARDIAL INFARCTION. THE UPPER REFERENCE LIMIT (URL) OF TROPONIN, DEFINED THE 99TH PERCENTILE OF cTnI DISTRIBUTION IN A REFERENCE POPULATION, HAS BEEN CONFIRMED THE DECISION THRESHOLD FOR SC DIAGNOSIS. Performed By: #### C MADM, BMP #### [facility] [address] [place] [address] Dr. Meron Gentile PERLA 41 ng/mL Normal 16-96 [facility] Comment on above: Performed By: #### C MADM, BMP #### [facility] [address] [place] [address] Dr. Meron Gentile CBC AUTO DIFFon 01-05-2022 BASO # 0.0 103/ul Normal 0.0-0.[address] [facility] Comment on above: Performed By: #### B MP, CRP #### [facility] [address] [place] [address] Dr. Meron Gentile Basophils/100 WBC (Bld) 0.5 % Normal 0.2-2.[address] [facility] Comment on above: Performed By: #### B MP, CRP #### [facility] [address] [place] [address] Dr. Meron Gentile EO # 0.1 103/ul Normal 0.0-0.[address] [facility] Comment on above: Performed By: #### B MP, CRP #### [facility] [address] [place] [address] Dr. Meron Gentile Eosinophils/100 WBC (Bld) 1.2 % Normal 0.9-7.[address] [facility] Comment on above: Performed By: #### B MP, CRP #### [facility] [address] [place] [address] Dr. Meron Gentile Erythrocyte distribution width (RBC) [Ratio] 12.2 % Normal 11.0-15.[address] [facility] Comment on above: Performed By: #### B MP, CRP #### [facility] [address] [place] [address] Dr. Meron Gentile Hematocrit (Bld) [Volume fraction] 45.6 % Normal 42.0-54.[address] [facility] Comment on above: Performed By: #### B MP, CRP #### [facility] [address] [place] [address] Dr. Meron Gentile Hemoglobin (Bld) [Mass/Vol] 15.2 g/dL Normal 14.0-18.[address] [facility] Comment on above: Performed By: #### B MP, CRP #### [facility] [address] [place] [address] Dr. Meron Gentile IG # 0.02 10e3/ul Normal 0.00-0.[address] [facility] Comment on above: Performed By: #### B MP, CRP #### [facility] [address] [place] [address] Dr. Meron Gentile IG % 0.2 % Normal 0.0-0.[address] [facility] Comment on above: Performed By: #### B MP, CRP #### [facility] [address] [place] [address] Dr. Meron Gentile LYMPH # 1.6 103/ul Normal 1.2-3.8 [facility] Comment on above: Performed By: #### B MP, CRP #### [facility] [address] [place] [address] Dr. Meron Getnile Lymphocytes/100 WBC (Bld) 18.9 % Critically low 20.5-60.[address] [facility] Comment on above: Performed By: #### B MP, CRP #### [facility] [address] [place] [address] Dr. Meron Gentile MANUAL DIFF REQ NO Normal [facility] Comment on above: Performed By: #### B MP, CRP #### [facility] [address] [place] [address] Dr. Meron Gentile MCH (RBC) [Entitic mass] 29.0 pg Normal 25.9-34.[address] [facility] Comment on above: Performed By: #### B MP, CRP #### [facility] [address] [place] [address] Dr. Meron Gentile MCHC (RBC) [Mass/Vol] 33.3 g/dL Normal 29.9-35.2 [facility] Comment on above: Performed By: #### B MP, CRP #### [facility] [address] [place] [address] Dr. Meron Gentile MCV (RBC) [Entitic vol] 86.9 fL Normal 80.0-94.[address] [facility] Comment on above: Performed By: #### B MP, CRP #### [facility] [address] [place] [address] Dr. Meron Gentile MONO # 1.1 103/ul Critically high 0.3-0.[address] [facility] Comment on above: Performed By: #### B MP, CRP #### [facility] [address] [place] [address] Dr. Meron Gentile Monocytes/100 WBC (Bld) 12.3 % Critically high 1.7-12.[address] [facility] Comment on above: Performed By: #### B MP, CRP #### [facility] [address] [place] [address] Dr. Meron Gentile NEUT # 5.7 103/ul Normal 1.4-6.5 [facility] Comment on above: Performed By: #### B MP, CRP #### [facility] [address] [place] [address] Dr. Meron Gentile Neutrophils/100 WBC (Bld) 66.9 % Normal 43.0-75.0 [facility] Comment on above: Performed By: #### B MP, CRP #### [facility] [address] [place] [address] Dr. Meron Gentile Platelet mean volume (Bld) [Entitic vol] 8.6 fL Critically low 9.5-13.5 [facility] Comment on above: Performed By: #### B MP, CRP #### [facility] [address] [place] [address] Dr. Meron Gentile PLT 279 103/ul Normal 150-450 [facility] Comment on above: Performed By: #### B MP, CRP #### [facility] [address] [address] [address] Meron Gentile RBC 5.25 106/ul Normal 4.70-6.10 [facility] Comment on above: Performed By: #### B MP, CRP #### [facility] [address] [place] [address] Dr. Meron Gentile WBC 8.6 103/ul Normal 4.0-11.0 [facility] Comment on above: Performed By: #### B MP, CRP #### [facility] [address] [place] [address] Dr. Meron Gentile [facility]17 SARS-CoV-2 (COVID-19) RNA SULEIMAN+probe Ql (Unsp spec) Not detected Normal NOT DETECTED [facility] Comment on above: Result Comment: When [...] for this test is supported by the Child Development Associate Teacher of Health and Human Service's declaration that [...] Performed By: #### C MADM, BMP #### [facility] [address] [place] [address] Dr. Meron Gentile D-DIMERon 01-05-2022 D-DIMER 0.19 mg/L FEU Normal <=0.[address] [facility] Comment on above: Performed By: #### D DIM #### [facility] [address] [place] [address] Dr. Meron Gentile D-DIMER COMMENTS SEE BELOW Normal [facility] Comment on above: Result Comment: Incr [...] hospitalization. Performed By: #### D DIM #### [facility] [address] [place] [address] Dr. Meron Gentile INFLUENZA A AND B AGon 01-05 INFLUENZA A AG Negative Normal NEGATIVE SEE COMMENT [facility] Comment on above: Performed By: #### C CLEMENCIA, BMP #### [facility] [address] [place] [address] Dr. Meron Gentile INFLUENZA B AG Negative Normal NEGATIVE SEE COMMENT [facility] Comment on above: Performed By: #### C CLEMENCIA, BMP #### [facility] [address] [place] [address] Dr. Meron Gentile INTERNAL CONTROLS Within Normal Limits Normal Wi thin Normal Limits [facility] Comment on above: Performed By: #### C DONNIEM, BMP #### [facility] [address] [place] [address] Dr. Meron Gentile PROF CHEM 8 (BAS METB)on Anion gap [Moles/Vol] 9.3 mmol/L Normal [facility] Comment on above: Performed By: #### C DONNIEM, BMP #### [facility] [address] [place], [place] [id number] Dr. Meron Gentile Calcium [Mass/Vol] 9.1 mg/dL Normal 8.5-10.1 [facility] Comment on above: Performed By: #### C CLEMENCIA, BMP #### [facility] [address] [place] [address] Dr. Meron Gentile Chloride [Moles/Vol] 97 mmol/L Critically low 98-107 [facility] Comment on above: Performed By: #### C CLEMENCIA, BMP #### [facility] [address] [place] [address] Dr. Meron Gentile CO2 [Moles/Vol] 30.6 mmol/L Normal 21.0-32.0 [facility] Comment on above: Performed By: #### C CLEMENCIA, BMP #### [facility] [address] [place] [address] Dr. Meron Gentile Creatinine [Mass/Vol] 0.77 mg/dL Normal 0.70-1.30 [facility] Comment on above: Performed By: #### C CLEMENCIA, BMP #### [facility] [address] [place] [address] Dr. Meron Gentile EGFR-AF CAYMAN ISLANDER >60 Normal >=60 [facility] Comment on above: Performed By: #### C CLEMENCIA, BMP #### [facility] [address] [place] [address] Dr. Meron Gentile EGFR-NON AF CAY[place] ISLANDER >60 Normal >=60 [facility] Comment on above: Performed By: #### C CLEMENCIA, BMP #### [facility] [address] [place] [address] Dr. Meron Gentile Glucose [Mass/Vol] 104 mg/dL Normal 74-106 [facility] Comment on above: Performed By: #### C CLEMENCIA, BMP #### [facility] [address] [place] [address] Dr. Meron Gentile Potassium [Moles/Vol] 3.9 mmol/L Normal 3.5-5.1 [facility] Comment on above: Performed By: #### C CLEMENCIA, BMP #### [facility] [address] [place] [address] Dr. Meron Gentile Sodium [Moles/Vol] 133 mmol/L Critically low 136-145 [facility] Comment on above: Performed By: #### C CLEMENCIA, BMP #### [facility] [address] [place] [address] Dr. Meron Gentile Urea nitrogen [Mass/Vol] 8.0 mg/dL Normal 7.0-18.[address] [facility] Comment on above: Performed By: #### C CLEMENCIA, BMP #### [facility] [address] [place] [address] Dr. Meron Gentile Urea nitrogen/Creatinine [Mass ratio] 10.4 mg/mg Normal [facility] Comment on above: Performed By: #### C CLEMENCIA, BMP #### [facility] [address] [place] [address] Dr. Meron Gentile INSULINon 09-26-2021 Insulin 14.8 uIU/mL Normal 2.6-24.[address] [facility] Comment on above: Performed By: #### I NSULIN #### [facility] [address] [place] [address] Dr. Meron Gentile CBC AUTO DIFFon 09-25-2021 BASO # 0.1 103/ul Normal 0.0-0.[address] [facility] Comment on above: Performed By: #### C BC #### [facility] [address] [place] [address] Dr. Meron Gentile Basophils/100 WBC (Bld) 0.7 % Normal 0.2-2.[address] [facility] Comment on above: Performed By: #### C BC #### [facility] [address] [place] [address] Dr. Meron Gentile EO # 0.3 103/ul Normal 0.0-0.7 [facility] Comment on above: Performed By: #### C BC #### [facility] [address] [place] [address] Dr. Meron Gentile Eosinophils/100 WBC (Bld) 3.8 % Normal 0.9-7.[address] [facility] Comment on above: Performed By: #### C BC #### [facility] [address] [place] [address] Dr. Meron Gentile Erythrocyte distribution width (RBC) [Ratio] 12.2 % Normal 11.0-15.[address] [facility] Comment on above: Performed By: #### C BC #### [facility] [address] [place] [address] Dr. Meron Gentile Hematocrit (Bld) [Volume fraction] 46.5 % Normal 42.0-54.[address] [facility] Comment on above: Performed By: #### C BC #### [facility] [address] [place] [address] Dr. Meron Gentile Hemoglobin (Bld) [Mass/Vol] 15.5 g/dL Normal 14.0-18.[address] [facility] Comment on above: Performed By: #### C BC #### [facility] [address] [place] [address] Dr. Meron Gentile IG # 0.04 10e3/ul Critically high 0.00-0.[address] [facility] Comment on above: Performed By: #### C BC #### [facility] [address] [place] [address] Dr. Meron Gentile IG % 0.5 % Normal 0.0-0.[address] [facility] Comment on above: Performed By: #### C BC #### [facility] [address] [place] [address] Dr. Meron Gentile LYMPH # 2.4 103/ul Normal 1.2-3.[address] [facility] Comment on above: Performed By: #### C BC #### [facility] [address] [place] [address] Dr. Meron Gentile Lymphocytes/100 WBC (Bld) 31.5 % Normal 20.5-60.[address] [facility] Comment on above: Performed By: #### C BC #### [facility] [address] [place] [address] Dr. Meron Gentile MANUAL DIFF REQ NO Normal [facility] Comment on above: Performed By: #### C BC #### [facility] [address] [place] [address] Dr. Meron Gentile MCH (RBC) [Entitic mass] 29.1 pg Normal 25.9-34.0 [facility] Comment on above: Performed By: #### C BC #### [facility] [address] [address] [address] Meron Gentile MCHC (RBC) [Mass/Vol] 33.3 g/dL Normal 29.9-35.2 [facility] Comment on above: Performed By: #### C BC #### [facility] [address] [address] [address] Meron Gentile MCV (RBC) [Entitic vol] 87.2 fL Normal 80.0-94.0 [facility] Comment on above: Performed By: #### C BC #### [facility] [address] [place] [address] Dr. Meron Gentile MONO # 0.6 103/ul Normal 0.3-0.8 [facility] Comment on above: Performed By: #### C BC #### [facility] [address] [place] [address] Dr. Meron Gentile Monocytes/100 WBC (Bld) 7.5 % Normal 1.7-12.0 [facility] Comment on above: Performed By: #### C BC #### [facility] [address] [place] [address] Dr. Meron Gentile NEUT # 4.3 103/ul Normal 1.4-6.5 [facility] Comment on above: Performed By: #### C BC #### [facility] [address] [place] [address] Dr. Meron Gentile Neutrophils/100 WBC (Bld) 56.0 % Normal 43.0-75.0 [facility] Comment on above: Performed By: #### C BC #### [facility] [address] [address] [address] Meron Gentile Platelet mean volume (Bld) [Entitic vol] 8.7 fL Critically low 9.5-13.5 [facility] Comment on above: Performed By: #### C BC #### [facility] [address] [address] [address] Meron Gentile PLT 290 103/ul Normal 150-[address] [facility] Comment on above: Performed By: #### C BC #### [facility] [address] [address] [address] Meron Gentile RBC 5.33 106/ul Normal 4.70-6.[address] [facility] Comment on above: Performed By: #### C BC #### [facility] [id number] Meron Gentile WBC 7.7 103/ul Normal 4.0-11.[address] [facility] Comment on above: Performed By: #### C BC #### [facility] [id number] Meron Gentile ECHOCARDIO M/2D COMPLETEon 0 09-25-2021 ECHOCARDIO M/2D COMPLETE Patient: JAYE HARVEY Exam Date: 09/25/2021 : 1980 Gender:M Ordering : DR URIEL NUNEZ . Admission #: [id number] Family : Order #: [id number] CLICK HERE TO VIEW EXAM ECHOCARDIOGRAM REPORT [...] Area(A4C): 23.10 cm2 Left Atrium Systolic Volume(A2C): 95607 mm3 Left Atrium Systolic Volume(A4C): 93394 mm3 Mitral Valve MV E to A [...] M.D. on 09/25/2021 at 16:59 Normal [facility] FREE THYROXINE INDEX T7on FTI 2.58 Normal 1.30-4.50 [facility] Comment on above: Performed By: #### B MP, CRP #### [facility] [address] [address] [address] Meron Gentile T3U 34.0 % Normal 33.0-40.[address] [facility] Comment on above: Performed By: #### B MP, CRP #### [facility] [address] [address] [address] Meron Gentile T4 [Mass/Vol] 7.60 ug/dL Normal 4.50-12.[address] [facility] Comment on above: Performed By: #### B MP, CRP #### [facility] [address] [place] [address] Dr. Meron Gentile GLYCOHEMOGLOBIN A1Con 2021 ADA RECOMMENDATION SEE BELOW Normal [facility] Comment on above: Result Comment: ADA RECOMMENDED LIMIT 4.0 - 6.0 ADA THERAPEUTIC TARGET < 7.0 ACTION SUGGESTED > 7.0 Performed By: #### C MADM, BMP #### [facility] [address] [place] [address] Dr. Meron Gentile Glucose [Mass/Vol] 111 mg/dL Normal [facility] Comment on above: Performed By: #### C MADM, BMP #### [facility] [address] [place] [address] Dr. Meron Gentile HbA1c (Bld) [Mass fraction] 5.5 % Normal 4.5-6.[address] [facility] Comment on above: Performed By: #### C MADM, BMP #### [facility] [address] [place] [address] Dr. Meron Gentile LIPID PROFILEon 09-25-2021 CHOL-HDL RATIO NORM SEE BELOW Normal [facility] Comment on above: Result Comment: 3.3 - 4.4 LOW RISK 4.4 - 7.1 AVERAGE RISK 7.1 - 11.0 MODERATE RISK >11.0 HIGH RISK Performed By: #### B MP, CRP #### [facility] [address] [place] [address] Dr. Meron Gentile Cholesterol [Mass/Vol] 257 mg/dL Critically high <=200 [facility] Comment on above: Performed By: #### B MP, CRP #### [facility] [address] [place] [address] Dr. Meron Gentile Cholesterol in HDL [Mass/Vol] 41 mg/dL Normal 40-[address] [facility] Comment on above: Performed By: #### B MP, CRP #### [facility] [address] [address] [address] Meron Gentile Cholesterol in LDL [Mass/Vol] 171.6 mg/dL Normal [facility] Comment on above: Performed By: #### B MP, CRP #### [facility] [address] [address] [address] Meron Gentile Cholesterol.total/Chol esterol in HDL [Mass ratio] 6.3 {ratio} Normal [facility] Comment on above: Performed By: #### B MP, CRP #### [facility] [address] [address] [address] Meron Gentile HDL NORMAL > or = 60 mg/dl - LO W CARDIOVASCULAR RISK <40 mg/dl - HIGH CARDIOVASCULAR RISK Normal [facility] Comment on above: Performed By: #### B MP, CRP #### [facility] [address] [place] [address] Dr. Meron Gentile LDL CALC NORMAL SEE BELOW Normal [facility] Comment on above: Result Comment: <100 mg/dl OPTIMAL 100 - 129 mg/dl NEAR OR ABOVE OPTIMAL 130 - 159 mg/dl BORDERLINE HIGH 160 - 189 mg/dl HIGH >190 mg/dl VERY HIGH Performed By: #### B MP, CRP #### [facility] [address] [address] [address] Meron Gentile Triglyceride [Mass/Vol] 222 mg/dL Critically high <=150 [facility] Comment on above: Performed By: #### B MP, CRP #### [facility] [address] [place] [address] Dr. Meron Gentile VLDL CALC 44.4 mg/dL Normal [facility] Comment on above: Performed By: #### B MP, CRP #### [facility] [address] [place] [address] Dr. Meron Gentile PROF 14(COMP METB)on 022 Albumin [Mass/Vol] 3.7 g/dL Normal 3.4-5.[address] [facility] Comment on above: Performed By: #### B MP, CRP #### [facility] [address] [address] [address] Meron Gentile Albumin/Globulin [Mass ratio] 1.1 {ratio} Normal [facility] Comment on above: Performed By: #### B MP, CRP #### [facility] [address] [address] [address] Meron Gentile ALP [Catalytic activity/Vol] 55 U/L Normal 46-[address] [facility] Comment on above: Performed By: #### B MP, CRP #### [facility] [address] [address] [address] Meron Gentile ALT [Catalytic activity/Vol] 60 U/L Normal 16-[address] [facility] Comment on above: Performed By: #### B MP, CRP #### [facility] [address] [address] [address] Meron Gentile Anion gap [Moles/Vol] 11.5 mmol/L Normal [facility] Comment on above: Performed By: #### B MP, CRP #### [facility] [address] [address] [address] Meron Gentile AST [Catalytic activity/Vol] 19 U/L Normal 15-[address] [facility] Comment on above: Performed By: #### B MP, CRP #### [facility] [address] [address] [address] Meron Gentile Bilirubin [Mass/Vol] 0.4 mg/dL Normal 0.2-1.[address] [facility] Comment on above: Performed By: #### B MP, CRP #### [facility] [address] [address] [address] Meron Gentile Calcium [Mass/Vol] 9.0 mg/dL Normal 8.5-10.[address] [facility] Comment on above: Performed By: #### B MP, CRP #### [facility] [address] [address] [address] Meron Gentile Chloride [Moles/Vol] 100 mmol/L Normal 98-[address] [facility] Comment on above: Performed By: #### B MP, CRP #### [facility] [address] [address] [address] Meron Gentile CO2 [Moles/Vol] 29.4 mmol/L Normal 21.0-32.[address] [facility] Comment on above: Performed By: #### B MP, CRP #### [facility] [address] [address] [address] Meron Gentile Creatinine [Mass/Vol] 0.80 mg/dL Normal 0.70-1.[address] [facility] Comment on above: Performed By: #### B MP, CRP #### [facility] [address] [address] [address] Meron Gentile EGFR-AF [place] ISLANDER >60 Normal >=[address] [facility] Comment on above: Performed By: #### B MP, CRP #### [facility] [address] [place] [address] Dr. Meron Gentile EGFR-NON AF [place] ISLANDER >60 Normal >=[address] [facility] Comment on above: Performed By: #### B MP, CRP #### [facility] [address] [place] [address] Dr. Meron Gentile Globulin (S) [Mass/Vol] 3.3 g/dL Normal [facility] Comment on above: Performed By: #### B MP, CRP #### [facility] [address] [place] [address] Dr. Meron Gentile Glucose [Mass/Vol] 124 mg/dL Critically high 74-106 [facility] Comment on above: Performed By: #### B MP, CRP #### [facility] [address] [address] [address] Meron Gentile Potassium [Moles/Vol] 3.9 mmol/L Normal 3.5-5.[address] [facility] Comment on above: Performed By: #### B MP, CRP #### [facility] [address] [address] [address] Meron Gentile Protein [Mass/Vol] 7.0 g/dL Normal 6.4-8.[address] [facility] Comment on above: Performed By: #### B MP, CRP #### [facility] [address] [address] [address] Meron Gentile Sodium [Moles/Vol] 137 mmol/L Normal 136-[address] [facility] Comment on above: Performed By: #### B MP, CRP #### [facility] [address] [place] [address] Dr. Meron Gentile Urea nitrogen [Mass/Vol] 10.0 mg/dL Normal 7.0-18.[address] [facility] Comment on above: Performed By: #### B MP, CRP #### [facility] [address] [place] [address] Dr. Meron Gentile Urea nitrogen/Creatinine [Mass ratio] 12.5 mg/mg Normal [facility] Comment on above: Performed By: #### B MP, CRP #### [facility] [address] [place] [address] Dr. Meron Gentile TSHon 09-25-2021 TSH 4.858 uIU/mL Critically high 0.358-3.[address] [facility] Comment on above: Performed By: #### B MP, CRP #### [facility] [address] [place] [address] Dr. Meorn Gentile TSH RANGE SEE BELOW Normal [facility] Comment on above: Result Comment: <0.3 4 UIU/ml HYPERTHYROID 0.34-5.60 UIU/ml EUTHYROID >5.60 UIU/ml HYPOTHYROID Performed By: #### B MP, CRP #### [facility] [address] [place] [address] Dr. Meron Gentile URIC ACID SERUMon 09-25-2021 Urate [Mass/Vol] 5.6 mg/dL Normal 3.5-7.[address] [facility] Comment on above: Performed By: #### B MP, CRP #### [facility] [address] [place] [address] Dr. Meron Gentile US CAROTID ART BILon 022 US CAROTID ART CHRISTOPHER EXAMINATION: US LI TID ART CHRISTOPHER HISTORY: Bilateral carotid artery occlusion COMPARISON: No [...] by: MIRIAM DIAZ Date: 2021-09-25 10:[address] [facility] XR HUMERUS LT MIN 2Von 09-14 XR HUMERUS LT MIN 2V EXAM: XR HUMERUS LT MIN 2V HISTORY: Pain COMPARISON: None. TECHNIQUE: 2 views of the left humerus FINDINGS: No acute fracture seen. The soft tissues appear unremarkable. IMPRESSION: No acute fracture of the left humerus Electronically authenticated by: DOMINIC ROMERO Date: 2021-09-14 20:[address] 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 Normal [facility] Vital Signs Date Time Vital Sign Value Performing Clinician Facility 05-27-2024 08:13-0500 Body height 180.3 cm Jodi Denney APRN.[facility] Work Phone: [facility] 05-27-2024 08:13-0500 Body mass index (BMI) [Ratio] 30.68 kg/m2 Jodi Gera WUN.[facility] Work Phone: [facility] 05-27-2024 08:13-0500 Body weight 99.79 kg Jodi Denney APRN.[facility] Work Phone: [facility] 05-27-2024 08:13-0500 Heart rate 81 /min Jodi Denney [employer].[facility] Work Phone: [facility] 05-27-2024 08:13-0500 SaO2% (BldA) [Mass fraction] 98 % Jodi Denney [employer].[facility] Work Phone: [facility] 05-25-2024 09:59-0500 Body height 175.3 cm [facility] PA Work Phone: [facility] 05-25-2024 09:59-0500 Body mass index (BMI) [Ratio] 32.19 kg/m2 [place] PA Work Phone: [facility] 05-25-2024 09:59-0500 Body weight 98.88 kg [facility] Work Phone: [facility] 05-23-2024 13:04-0500 Body height 175.3 cm [facility] Work Phone: [facility] 05-23-2024 13:04-0500 Body mass index (BMI) [Ratio] 32.19 kg/m2 [facility] Work Phone: [facility] 05-23-2024 13:04-0500 Body weight 98.88 kg [facility] Work Phone: [facility] 03-30-2024 16:31-0500 Body height 180.3 cm Krzysztof Krzysztof DO Work Phone: [facility] 03-30-2024 16:31-0500 Body mass index (BMI) [Ratio] 30.93 kg/m2 Krzysztof Krzysztof DO Work Phone: [facility] 03-30-2024 16:31-0500 Body weight 100.6 kg Krzysztof Krzysztof DO Work Phone: [facility] 03-30-2024 16:31-0500 Heart rate 110 /min Krzysztof Krzysztof DO Work Phone: [facility] 03-30-2024 16:31-0500 SaO2% (BldA) [Mass fraction] 96 % Krzysztof Krzysztof DO Work Phone: [facility] 01-19-2024 13:41-0400 Body height 177.8 cm Chester Maher [employer] Work Phone: [facility] 01-19-2024 13:41-0400 Body mass index (BMI) [Ratio] 32.05 kg/m2 Chester Maher [employer] Work Phone: [facility] 01-19-2024 13:41-0400 Body weight 101.33 kg Chester Maher [employer] Work Phone: [facility] 01-19-2024 13:41-0400 Diastolic blood pressure 88 mm[Hg] Chester Maher [employer] RE[employer]TER Work Phone: [facility] 01-19-2024 13:41-0400 Heart rate 80 /min Chester Maher [employer]TH[employer] RE[employer]TER Work Phone: [facility] 01-19-2024 13:41-0400 Respiratory rate 18 /min Chester Maher [employer] Work Phone: [facility] 01-19-2024 13:41-0400 SaO2% (BldA) [Mass fraction] 97 % Chester Maher [employer] RE[employer] Work Phone: [facility] 01-19-2024 13:41-0400 Systolic blood pressure 130 mm[Hg] Chester Maher [employer] Work Phone: [facility] 12-01-2023 23:30-0400 Diastolic blood pressure 92 mm[Hg] Virgil Tasia [facility] 12-01-2023 23:30-0400 Heart rate 83 /min Virgil Tasia [facility] 12-01-2023 23:30-0400 Mean blood pressure 107 mm[Hg] Virgil Tasia [facility] 12-01-2023 23:30-0400 Nursing Progress Note Reason Other: calling for ride Virgil Tasia [facility] 12-01-2023 23:30-0400 SaO2% (BldA) [Mass fraction] 97 % Virgil Tasia [facility] 12-01-2023 23:30-0400 Systolic blood pressure 138 mm[Hg] Virgil Tasia [facility] 12-01-2023 23:29-0400 Diastolic blood pressure 92 mm[Hg] Virgil Tasia [facility] 12-01-2023 23:29-0400 Heart rate 83 /min Virgil Tasia [facility] 12-01-2023 23:29-0400 Respiratory rate 16 /min Virgil Tasia [facility] 12-01-2023 23:29-0400 SaO2% (BldA) [Mass fraction] 97 % Virgil Tasia [facility] 12-01-2023 23:29-0400 Systolic blood pressure 138 mm[Hg] Virgil Tasia [facility] 12-01-2023 22:32-0400 SaO2% (BldA) [Mass fraction] 97 % Virgil Tasia [facility] 12-01-2023 22:00-0400 Diastolic blood pressure 84 mm[Hg] Virgil Tasia [facility] 12-01-2023 22:00-0400 Mean blood pressure 102 mm[Hg] Virgil Tasia [facility] 12-01-2023 22:00-0400 Systolic blood pressure 137 mm[Hg] Virgil Tasia [facility] 12-01-2023 21:00-0400 Heart rate 91 /min Virgil Tasia [facility] 12-01-2023 19:32-0400 Body temperature 98.42 [degF] Virgil Tasia [facility] 12-01-2023 19:32-0400 Heart rate 94 /min Virgil Tasia [facility] 09-26-2023 11:00-0400 Diastolic blood pressure 70 mm[Hg] MD Uriel Hoy Work Phone: [facility] 09-26-2023 11:00-0400 Heart rate 84 /min MD Uriel Nunez Work Phone: [facility] 09-26-2023 11:00-0400 Respiratory rate 24 /min MD Uriel Nunez Work Phone: [facility] 09-26-2023 11:00-0400 SaO2% (BldA) [Mass fraction] 95 % MD Uriel Nunez Work Phone: [facility] 09-26-2023 11:00-0400 Systolic blood pressure 110 mm[Hg] MD Uriel Nunez Work Phone: [facility] 09-26-2023 09:00-0400 Inhaled oxygen flow rate 2 L/min MD Uriel Nunez Work Phone: [facility] 09-26-2023 08:00-0400 Body temperature 98.2 [degF] MD Uriel Nunez Work Phone: [facility] 09-26-2023 06:00-0400 Body weight 97.8 kg MD Uriel Nunez Work Phone: [facility] 09-24-2023 12:32-0400 Body height 180.34 cm MD Uriel Nunez Work Phone: [facility] 09-23-2023 22:37-0400 Heart rate 124 /min MD Uriel Nunez Work Phone: [facility] 09-23-2023 22:30-0400 Diastolic blood pressure 66 mm[Hg] MD Uriel Nunez Work Phone: [facility] 09-23-2023 22:30-0400 SaO2% (BldA) [Mass fraction] 93 % MD Uriel Nunez Work Phone: [facility] 09-23-2023 22:30-0400 Systolic blood pressure 101 mm[Hg] MD Uriel Nunez Work Phone: [facility] 09-23-2023 22:00-0400 Respiratory rate 20 /min MD Uriel Nunez Work Phone: [facility] 09-23-2023 20:30-0400 Inhaled oxygen flow rate 2 L/min MD Uriel Nunez Work Phone: [facility] 09-23-2023 18:20-0400 Body height 180.34 cm MD Uriel Nunez Work Phone: [facility] 09-23-2023 18:20-0400 Body weight 96.8 kg MD Uriel Nunez Work Phone: [facility] 09-23-2023 18:13-0400 Body temperature 98 [degF] MD Uriel Nunez Work Phone: [facility] 08-26-2023 07:52-0400 Body height 177.8 cm Pacc 3 Work Phone: [facility] 08-26-2023 07:52-0400 Body temperature 97.7 [degF] Pacc 3 Work Phone: [facility] 08-26-2023 07:52-0400 Body weight 97.3 kg Pacc 3 Work Phone: [facility] 08-26-2023 07:52-0400 Diastolic blood pressure 90 mm[Hg] Pacc 3 Work Phone: [facility] 08-26-2023 07:52-0400 Heart rate 84 /min Pacc 3 Work Phone: [facility] 08-26-2023 07:52-0400 SaO2% (BldA) [Mass fraction] 98 % Pacc 3 Work Phone: [facility] 08-26-2023 07:52-0400 Systolic blood pressure 141 mm[Hg] Pacc 3 Work Phone: [facility] 04-22-2023 21:28-0500 Body temperature 97.52 [degF] Issa Levy [facility] 04-22-2023 21:28-0500 Diastolic blood pressure 70 mm[Hg] Kaylinn Dokken [facility] 04-22-2023 21:28-0500 Heart rate 100 /min Kaylinn Dokken [facility] 04-22-2023 21:28-0500 Respiratory rate 18 /min Kaylinn Dokken [facility] 04-22-2023 21:28-0500 SaO2% (BldA) [Mass fraction] 99 % Riannaylinn Dokken [facility] 04-22-2023 21:28-0500 Systolic blood pressure 133 mm[Hg] Kaylinn Dokken [facility] 03-04-2023 10:09-0400 Blood Pressure Location Nahed Lue [facility] 03-04-2023 10:09-0400 Diastolic blood pressure 82 mm[Hg] Nahed Lue [facility] 03-04-2023 10:09-0400 Heart rate 78 /min Nahed Lue [facility] 03-04-2023 10:09-0400 Respiratory rate 16 /min Nahed Lue [facility] 03-04-2023 10:09-0400 Systolic blood pressure 124 mm[Hg] Nahed Lue [facility] 12-16-2022 14:39-0400 Body height 177.8 cm Lino South MD Work Phone: [facility] 12-16-2022 14:39-0400 Body weight 95.25 kg Lino South MD Work Phone: [facility] 12-16-2022 14:39-0400 Diastolic blood pressure 86 mm[Hg] Lino South MD Work Phone: [facility] 12-16-2022 14:39-0400 Heart rate 83 /min Lino South MD Work Phone: [facility] 12-16-2022 14:39-0400 SaO2% (BldA) [Mass fraction] 98 % Lino South MD Work Phone: [facility] 12-16-2022 14:39-0400 Systolic blood pressure 144 mm[Hg] Lino South MD Work Phone: [facility] 10-29-2022 22:34-0400 Body height 177.8 cm MD Uriel Nunez Work Phone: [facility] 10-29-2022 22:34-0400 Body temperature 98.2 [degF] MD Uriel Nunez Work Phone: [facility] 10-29-2022 22:34-0400 Body weight 100.85 kg MD Uriel Nunez Work Phone: [facility] 10-29-2022 22:34-0400 Diastolic blood pressure 86 mm[Hg] MD Uriel Nunez Work Phone: [facility] 10-29-2022 22:34-0400 Heart rate 98 /min MD Uriel Nunez Work Phone: [facility] 10-29-2022 22:34-0400 Respiratory rate 14 /min MD Uriel Nunez Work Phone: [facility] 10-29-2022 22:34-0400 SaO2% (BldA) [Mass fraction] 100 % MD Uriel Nunez Work Phone: [facility] 10-29-2022 22:34-0400 Systolic blood pressure 150 mm[Hg] MD Uriel Nunez Work Phone: [facility] 09-29-2022 13:10-0400 Blood Pressure Location Marilyn Nassar [facility] 09-29-2022 13:10-0400 Body temperature 98.06 [degF] Marilyn Maday [facility] 09-29-2022 13:10-0400 Diastolic blood pressure 88 mm[Hg] Marilyn Maday [facility] 09-29-2022 13:10-0400 Heart rate 82 /min Marilyn Maday [facility] 09-29-2022 13:10-0400 Mean blood pressure 106 mm[Hg] Marilyn Maday [facility] 09-29-2022 13:10-0400 Respiratory rate 16 /min Marilyn Maday [facility] 09-29-2022 13:10-0400 SaO2% (BldA) [Mass fraction] 98 % Marilyn Maday [facility] 09-29-2022 13:10-0400 Systolic blood pressure 142 mm[Hg] Marilyn Maday [facility] 09-29-2022 12:00-0400 Body temperature 97.7 [degF] Marilyn Maday [facility] 09-29-2022 12:00-0400 Diastolic blood pressure 84 mm[Hg] Marilyn Maday [facility] 09-29-2022 12:00-0400 Heart rate 80 /min Marilyn Maday [facility] 09-29-2022 12:00-0400 SaO2% (BldA) [Mass fraction] 95 % Marilyn Maday [facility] 09-29-2022 12:00-0400 Systolic blood pressure 134 mm[Hg] Marilyn Nassar [facility] 09-29-2022 11:51-0400 Body temperature 97.52 [degF] Marilyn Maday [facility] 09-29-2022 11:51-0400 Diastolic blood pressure 111 mm[Hg] Marilyn Maday [facility] 09-29-2022 11:51-0400 Heart rate 83 /min Marilyn Maday [facility] 09-29-2022 11:51-0400 Mean blood pressure 117 mm[Hg] Marilyn Maday [facility] 09-29-2022 11:51-0400 Respiratory rate 17 /min Marilyn Maday [facility] 09-29-2022 11:51-0400 SaO2% (BldA) [Mass fraction] 94 % Marilyn Maday [facility] 09-29-2022 11:51-0400 Systolic blood pressure 129 mm[Hg] Marilyn Maday [facility] 09-29-2022 11:40-0400 Mean blood pressure 91 mm[Hg] Marilyn Maday [facility] 09-29-2022 11:40-0400 Respiratory rate 18 /min Marilyn Maday [facility] 09-29-2022 11:35-0400 Respiratory rate 16 /min Marilyn Maday [facility] 09-29-2022 11:26-0400 Body temperature 96.98 [degF] Marilyn Nassar [facility] 09-29-2022 08:31-0400 Blood Pressure Location Marilyn Nassar [facility] 09-29-2022 08:30-0400 Body temperature 97.52 [degF] Marilyn Nassar [facility] 09-29-2022 08:30-0400 Heart rate 96 /min Marilyn Nassar [facility] 09-29-2022 08:30-0400 Respiratory rate 18 /min Marilyn Nassar [facility] 09-19-2022 13:12-0400 Diastolic blood pressure 86 mm[Hg] Marilyn Maday [facility] 09-19-2022 13:12-0400 Heart rate 80 /min Marilyn Nassar [facility] 09-19-2022 13:12-0400 Mean blood pressure 100 mm[Hg] Marilyn Maday [facility] 09-19-2022 13:12-0400 Systolic blood pressure 127 mm[Hg] Marilyn Maday [facility] 09-19-2022 13:12-0400 Blood Pressure Location Marilyn Maday [facility] 09-19-2022 13:11-0400 Heart rate 82 /min Marilyn Nassar [facility] 09-19-2022 13:11-0400 SaO2% (BldA) [Mass fraction] 96 % Marilyn Mdaay [facility] 09-19-2022 13:11-0400 Respiratory rate 16 /min Marilyn Maday [facility] 09-19-2022 13:10-0400 Body temperature 98.24 [degF] Marilyn Maday [facility] 09-19-2022 13:10-0400 Diastolic blood pressure 88 mm[Hg] Marilyn Maday [facility] 09-19-2022 13:10-0400 Mean blood pressure 100 mm[Hg] Marilyn Maday [facility] 09-19-2022 13:10-0400 Systolic blood pressure 125 mm[Hg] Marilyn Maday [facility] 09-19-2022 13:10-0400 Blood Pressure Location Marilyn Nassar [facility] 01-07-2022 12:47-0400 Body height 180.3 cm Jose Angel Emery APRN.CERTIFIED SHORTHAND REPORTER Work Phone: [facility] 01-07-2022 12:47-0400 Body weight 98.7 kg Jose Angel Emery APRN.CERTIFIED SHORTHAND REPORTER Work Phone: [facility] 01-07-2022 12:47-0400 Diastolic blood pressure 77 mm[Hg] Jose Angel Emery APRN.CERTIFIED SHORTHAND REPORTER Work Phone: [facility] 01-07-2022 12:47-0400 Heart rate 86 /min Jose Angel Emery APRN.CERTIFIED SHORTHAND REPORTER Work Phone: [facility] 01-07-2022 12:47-0400 Respiratory rate 19 /min Jose Angel Emery APRN.CERTIFIED SHORTHAND REPORTER Work Phone: [facility] 01-07-2022 12:47-0400 SaO2% (BldA) [Mass fraction] 98 % Jose Angel mEery APRN.CERTIFIED SHORTHAND REPORTER Work Phone: [facility] 01-07-2022 12:47-0400 Systolic blood pressure 137 mm[Hg] Jose Angel Emery APRN.CERTIFIED SHORTHAND REPORTER Work Phone: [facility] 08-20-2021 14:15-0400 Body height 180.3 cm Lino South MD Work Phone: [facility] 08-20-2021 14:15-0400 Body weight 98.88 kg Lino South MD Work Phone: [facility] 08-20-2021 14:15-0400 Diastolic blood pressure 87 mm[Hg] Lino South MD Work Phone: [facility] 08-20-2021 14:15-0400 Heart rate 104 /min Lino South MD Work Phone: [facility] 08-20-2021 14:15-0400 Respiratory rate 19 /min Lino South MD Work Phone: [facility] 08-20-2021 14:15-0400 SaO2% (BldA) [Mass fraction] 97 % Lino South MD Work Phone: [facility] 08-20-2021 14:15-0400 Systolic blood pressure 130 mm[Hg] Lino South MD Work Phone: [facility] Encounters Encounter Date Encounter Type Care Provider Facility Start: 09-21-2024 End: 09-21-2024 Telephone encounter Krzysztof E Krzysztof DO Work Phone: Pain Management Comment on above: Procedure Follow Up (Right L5-S1 lumbar facet joint medial branch nerve radiofrequency ablation under fluoroscopic guidance. / /) Start: 09-21-2024 End: 09-21-2024 ambulatory SOBEIDA COX Facility:[facility] Start: 09-19-2024 End: 09-19-2024 ambulatory KRZYSZTOF E KRZYSZTOF Facility:[facility] Start: 09-14-2024 End: 09-15-2024 Refill Monika Siddiqui PA-C Work Phone: Neurology Comment on above: Refill Request Start: 09-01-2024 End: 09-01-2024 Telephone encounter Krzysztof E Krzysztof DO Work Phone: Pain Management Comment on above: Post Op Start: 08-31-2024 End: 08-31-2024 ambulatory Uriel Nunez Facility:[facility] Start: 08-18-2024 End: 08-18-2024 Telephone encounter Krzysztof E Krzysztof DO Work Phone: Pain Management Comment on above: pain procedure respo nse & follow up (Right Diagnostic L5-S1 Lumbar facet joint medial branch nerve block #1) Start: 08-17-2024 End: 08-17-2024 ambulatory KRZYSZTOF KRZYSZTOF Facility:[facility] Start: 08-16-2024 End: 08-17-2024 Refill Dutch Love APRN.CNP Work Phone: Neurology Comment on above: Refill Request Start: 08-02-2024 End: 08-02-2024 ambulatory URIEL Nallely Sharon Facility:[facility] Start: 07-29-2024 End: 07-29-2024 Telephone encounter Krzysztof E Krzysztof DO Work Phone: Ambulatory Surgery Comment on above: Schedule Injection Start: 07-27-2024 End: 07-27-2024 ambulatory Krzysztof E Krzysztof DO Work Phone: Pain Management Comment on above: Lumbosacral spondylo sis without myelopathy (Primary Dx); Neck pain; Degeneration of intervertebral disc of lumbar region with discogenic back pain Start: 07-27-2024 End: 07-27-2024 Telemedicine consultation with patient Krzysztof E Krzysztof DO Work Phone: Pain Management Start: 07-25-2024 End: 07-26-2024 ambulatory Krzysztof E Krzysztof DO Work Phone: Pain Management Start: 07-25-2024 End: 07-26-2024 Patient encounter procedure Krzysztof E Krzysztof DO Work Phone: Pain Management Comment on above: Set up appointment Start: 07-20-2024 End: 07-20-2024 Refill Dutch Love APRN.CNP Work Phone: Neurology Comment on above: Refill Request Start: 06-22-2024 End: 06-22-2024 ambulatory Jodi Denney APRN.CERTIFIED SHORTHAND REPORTER Work Phone: Pain Management Start: 06-22-2024 End: 06-22-2024 Patient encounter procedure Jodi Denney APRN.CERTIFIED SHORTHAND REPORTER Work Phone: Pain Management Comment on above: Appointment Start: 06-15-2024 End: 06-15-2024 ambulatory URIEL NUNEZ Facility:[facility] Start: 06-08-2024 End: 06-09-2024 ambulatory Jodi Denney APRN.CNP Work Phone: Pain Management Comment on above: Jaye Harvey Start: 06-08-2024 End: 06-08-2024 Patient encounter procedure Jodi Denney APRN.CNP Work Phone: Pain Management Comment on above: Appointment Start: 06-08-2024 End: 06-08-2024 Telephone encounter Lino South MD Work Phone: Neurology Comment on above: Medication Problem ( May patient use Lyrica for his arthritis?) Start: 06-06-2024 End: 06-08-2024 Telephone encounter Jodi Denney APRN.CERTIFIED SHORTHAND REPORTER Work Phone: Pain Management Comment on above: Results Start: 06-01-2024 End: 06-13-2024 Telephone encounter Shawnee Moeller PT [facility] Comment on above: re: CX PT eval over MyChart; post Check-up; FU Start: 05-27-2024 End: 05-27-2024 Patient encounter procedure Yeimi Armani RT(R) Radiology Start: 05-27-2024 End: 05-27-2024 Subsequent hospital visit by physician Xr [facility] Comment on above: Neck pain [M54.2] Start: 05-27-2024 End: 05-27-2024 ambulatory Yeimi Armani RT(R) Radiology Comment on above: Radiology XR Start: 05-27-2024 End: 05-27-2024 Office outpatient visit 25 minutes Jodi Denney APRN.CERTIFIED SHORTHAND REPORTER Work Phone: Pain Management Comment on above: Neck pain (Primary D x); Lumbar spondylolysis Start: 05-25-2024 End: 05-25-2024 Patient encounter procedure Paola Arvizu PA Work Phone: [facility] Comment on above: Impingement of right shoulder (Primary Dx); Right shoulder pain, unspecified chronicity; Primary osteoarthritis of right shoulder Start: 05-25-2024 End: 05-25-2024 ambulatory PAOLA D HILLS Not Available Start: 05-25-2024 End: 05-25-2024 ambulatory PAOLA D HILLS Not Available Start: 05-24-2024 End: 05-24-2024 Telephone encounter Jodi Denney APRN.CERTIFIED SHORTHAND REPORTER Work Phone: Pain Management Start: 05-24-2024 End: 05-24-2024 ambulatory 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, intractable (HCC) (Primary Dx); 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 Start: 05-24-2024 End: 05-24-2024 Subsequent hospital visit by physician Mri 3 Radio Main Q (I-Stat/1.5t/3t) Work Phone: MRI Q Comment on above: Spinal stenosis of l umbar region without neurogenic claudication [M48.061] Start: 05-24-2024 End: 05-24-2024 [facility] Facility:[facility] Start: 05-24-2024 End: 05-24-2024 Patient encounter procedure Jemima Purdy APRN.CNP Work Phone: Neurosurgery Comment on above: 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, intractable (HCC) (Primary Dx); 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 Start: 05-23-2024 End: 05-23-2024 E-mail encounter from caregiver Jodi Garcia Gera KUNZ Work Phone: Pain Management Start: 05-23-2024 End: 05-23-2024 Patient encounter procedure Paola DE LA FUENTE Work Phone: [facility] Comment on above: Osteoarthritis of pa tellofemoral joints, bilateral (Primary Dx) Start: 05-23-2024 End: 05-23-2024 ambulatory Jodi Denney APRN.CNP Work Phone: Pain Management Comment on above: Pain Questionnaire Start: 05-17-2024 End: 05-19-2024 Refill Monika Siddiqui PA-C Work Phone: Neurology Comment on above: Refill Request Start: 04-01-2024 End: 04-01-2024 Telephone encounter Marilyn Finch RT(R) [facility] Comment on above: Orders Start: 03-30-2024 End: 03-30-2024 ambulatory URIEL NUNEZ Facility:[facility] Start: 03-30-2024 End: 03-30-2024 Patient encounter procedure Krzysztof Singletons DO Work Phone: Pain Management Comment on above: Radiculopathy, lumbo sacral region (Primary Dx); Degeneration of intervertebral disc of lumbar region with discogenic back pain; Chronic bilateral low back pain with bilateral sciatica; Spinal stenosis of lumbar region without neurogenic claudication Start: 03-28-2024 End: 03-28-2024 Telephone encounter Krzysztof Singletons DO Work Phone: Urology Comment on above: Appointment (Pain ma nagement/) Start: 03-26-2024 End: 03-26-2024 ambulatory Ethel Cifunetes RN NURSE [employer]UX ENGINEER Comment on above: Numbness/Tingling Start: 03-26-2024 End: 03-26-2024 Chart abstracting Lucinda Oliveros MD Work Phone: Neurosurgery Start: 03-17-2024 End: 03-18-2024 Refill Dutch Love APRN.CERTIFIED SHORTHAND REPORTER Work Phone: Neurology Comment on above: Refill Request Start: 03-16-2024 End: 03-16-2024 ambulatory Krzysztof Singletons DO Work Phone: Pain Management Comment on above: Pain Questionnaire Start: 03-16-2024 End: 03-16-2024 E-mail encounter from caregiver Krzysztof Singletons DO Work Phone: Pain Management Start: 03-03-2024 End: 03-03-2024 Telephone encounter Johann Borrero MD Work Phone: Neurology Comment on above: Letter (Letter for carmen ennis ) Start: 03-02-2024 End: 03-02-2024 Telephone encounter Lj Cabello TRANSIT MECHANIC [facility] Comment on above: re: [...] Start: 03-01-2024 End: 03-01-2024 ambulatory No Pcp PRODUCT PICKER [facility] Start: 03-01-2024 End: 03-01-2024 Patient encounter procedure No Pcp PRODUCT PICKER [facility] Start: 03-01-2024 End: 03-09-2024 Telephone encounter Love Espinoza RN [facility] Start: 02-29-2024 End: 02-29-2024 ambulatory URIEL NUNEZ Facility:[facility] Start: 02-22-2024 End: 02-22-2024 Bamboo flowsheet Shawnee Moeller PT [facility] Start: 02-22-2024 End: 02-22-2024 Bamboo flowsheet Shawnee Moeller PT [facility] Start: 02-22-2024 End: 02-22-2024 ambulatory Shawnee Moeller PT [facility] Comment on above: Low back pain, unspe cified back pain laterality, unspecified chronicity, unspecified whether sciatica present (Primary Dx); Pain in thoracic spine; Other chronic pain Start: 02-18-2024 End: 02-18-2024 Telephone encounter Ramin Peacock TRANSIT MECHANIC [facility] Start: 02-04-2024 End: 02-04-2024 Telephone encounter Jessenia ESQUIVEL Neurology Comment on above: Social Work Services Start: 02-01-2024 End: 02-11-2024 Orders Only Inez Cordero PA-C Work Phone: Neurology Comment on above: Chronic migraine wit hout aura without status migrainosus, not intractable (Primary Dx) re: Missed PT Eval ( Called to inquire on missed PT Eval and he said he had cx over text last Thursday; I apologized I had not received. He noted he had bloodwork / CT to be done today and re: rest of the week he is already w/ plans. I told him when he gets time to call us back and we can look into next week for possible Eval times openings.); FU (Contacted and offered to rs PT Eval. He noted due to availability the soonest opening for Eval would be 02/21; scheduled and recommended scheduling on. He said w/ [facility] he'll wait till post Eval.) Start: 01-19-2024 End: 01-19-[address] [facility] Start: 01-19-2024 End: 01-19-2024 Office outpatient new 45 minutes Dania Ervin APRN-ENZO Work Phone: [facility] Comment on above: Chronic thoracic spi ne pain (Primary Dx); Acute exacerbation of chronic low back pain; Chronic bilateral low back pain, unspecified whether sciatica present Start: 01-19-2024 End: 01-21-2024 Refill Inez Cordero PA-C Work Phone: Neurology Comment on above: Refill Request Start: 01-19-2024 End: 01-19-[address] [facility] Start: 12-28-2023 End: 12-28-2023 Emergency department patient visit URIEL Browning [facility] Start: 12-28-2023 End: 12-28-2023 ambulatory URIEL M Sharon Facility:[facility] Start: 12-01-2023 End: 12-02-2023 Emergency department patient visit Virgil SBradley Do[facility] Start: 11-23-2023 Telephone encounter Jessenia DOMINGUEZ Neurology Comment on above: Social Work Services Start: 11-17-2023 End: 11-17-2023 ambulatory URIEL NUNEZ Facility:[facility] Start: 11-09-2023 End: 11-09-2023 ambulatory PAOLA ARVIZU Not Available Start: 11-03-2023 End: 11-03-2023 Admission to same day surgery center Aida Ervin PA-C Work Phone: Neurosurgery Comment on above: 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 (Primary Dx); Partial epilepsy with impairment of consciousness, intractable (HCC) Start: 11-03-2023 End: 11-03-2023 Telemedicine consultation with patient Aida Ervin BARTOLOME Work Phone: Neurosurgery Start: 11-03-2023 End: 11-03-2023 ambulatory Kanika Donald PRODUCT PICKER.CERTIFIED SHORTHAND REPORTER Work Phone: Neurology Comment on above: 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, intractable (HCC) (Primary Dx) Start: 11-01-2023 Refill Lizeth Rubin PRODUCT PICKER.CERTIFIED SHORTHAND REPORTER Work Phone: Neurology Comment on above: Refill Request Start: 10-21-2023 End: 10-21-2023 ambulatory URIEL NUNEZ Facility:[facility] Start: 10-13-2023 Refill Lino South MD Work Phone: Neurology Comment on above: Refill Request Social Work Services Start: 10-07-2023 End: 10-07-2023 ambulatory SOBEIDA COX Facility:[facility] Start: 09-26-2023 End: 09-29-2023 Evaluation and management of inpatient Temitope Woopatrickmichael Facility:[facility] Start: 09-25-2023 Non-patient / Non-visit MD Jes Nunez Work Phone: [facility] Work Phone: Start: 09-24-2023 Non-patient / Non-visit MD Jes Nunez Work Phone: [facility] Work Phone: Start: 09-23-2023 End: 09-26-2023 Evaluation and management of inpatient MD Uriel Nunez Work Phone: [facility] Work Phone: Start: 09-22-2023 Registered Recurring MD Johny Nunez Work Phone: [facility] Start: 09-17-2023 Admission to [facility] Provider Neurosurgery Comment on above: Suture Issues Start: 09-17-2023 E-mail encounter fro m caregiver [facility] Provider Neurosurgery Start: 09-17-2023 Telephone encounter Johann Borrero MD Work Phone: Neurology Comment on above: General (Stitch Abena ing Out Of Neck) Start: 08-26-2023 End: 08-26-2023 Nursing evaluation of patient and report Kristyn Quinteros RN Work Phone: Neurosurgery Comment on above: Focal epilepsy with impairment of consciousness, intractable (HCC) (Primary Dx) Start: 08-26-2023 End: 08-26-2023 Patient encounter status [facility] Start: 08-26-2023 End: 08-26-2023 Subsequent hospital visit by physician Xr Chest Main A21 Radiology Comment on above: Preoperative testing [Z01.818] Start: 08-26-2023 End: 08-26-[address] 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 Main 3 Work Phone: [facility] Work Phone: Start: 08-10-2023 Telephone encounter Johann Borrero MD Work Phone: Neurology Comment on above: Other (Surgery Time, Transportation) Start: 08-06-2023 Telephone encounter Lino voss MD Work Phone: Neurology Comment on above: Forms (bmv) Start: 08-05-2023 Admission to [facility] Johann Borrero MD Work Phone: Neurosurgery Comment on above: Schedule Surgery (VN S change) Start: 08-05-2023 ambulatory Johann ghosh MD Work Phone: [facility] Start: 08-05-2023 Patient encounter status Wayne Borrero MD Work Phone: [facility] Start: 08-05-2023 Telephone encounter Kristin jackson MD Work Phone: Neurosurgery Comment on above: Breakfast Hostess - O ther Start: 08-03-2023 Telephone encounter Lino voss MD Work Phone: Neurology Comment on above: Forms (BMV) Start: 08-03-2023 End: 08-03-2023 Patient encounter procedure Inez Cordero PA-C Work Phone: Neurology Comment on above: 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, intractable (HCC) Start: 07-22-2023 Refill Geraldine rodriguez MD Work Phone: Neurology Comment on above: Refill Request Start: 07-16-2023 End: 07-17-2023 Emergency department patient visit [facility] Start: 07-12-2023 Non-patient / Non-visit MD Jes Nunez Work Phone: [facility] Work Phone: Start: 06-26-2023 Telephone encounter Geraldine gandara MD Work Phone: Neurology Comment on above: Medication Authoriza tion Start: 06-24-2023 ambulatory URIEL MUNOZSharon Facility: [facility] Start: 06-24-2023 End: 06-24-2023 Subsequent hospital visit by physician Iop Team B [facility] [place] Comment on above: Discharge Summary - Afua [...] the end of week three in DBT [facility], and will discuss during check-in daily. Pt [...] additional support at a local emergency room ([facility]) if needed, and has also been willing [...] content not included)... Start: 06-23-2023 ambulatory URIEL NUNEZ Facility: [facility] Start: 06-23-2023 End: 06-23-2023 Subsequent hospital visit by physician Iop Team Katie Jimenez [facility] [place] Start: 06-22-2023 ambulatory URIEL NUNEZ Facility: [facility] Start: 06-22-2023 End: 06-22-2023 Subsequent hospital visit by physician Iop Team B [facility] [place] Start: 06-19-2023 End: 06-19-2023 ambulatory Nahed Lara Espinoza Facility:[facility] Start: 06-19-2023 End: 06-19-2023 Patient encounter procedure Nahed Doran [facility] Start: 06-18-2023 ambulatory URIEL M HOY Facility: [facility] Start: 06-18-2023 End: 06-18-2023 Subsequent hospital visit by physician Iop Team B [facility] Start: 06-17-2023 ambulatory URIEL M HOY Facility: [facility] Start: 06-17-2023 End: 06-17-2023 Subsequent hospital visit by physician Iop Team B [facility] [place] Start: 06-16-2023 ambulatory URIEL M HOY Facility: [facility] Start: 06-16-2023 End: 06-16-2023 Subsequent hospital visit by physician Iop Team B [facility] Start: 06-15-2023 ambulatory URIEL M HOY Facility: [facility] Start: 06-15-2023 End: 06-15-2023 Subsequent hospital visit by physician Iop Team B [facility] Start: 06-11-2023 ambulatory URIEL M HOY Facility: [facility] Start: 06-11-2023 End: 06-11-2023 Subsequent hospital visit by physician Mya Tena APRN.CERTIFIED SHORTHAND REPORTER Work Phone: [facility] [place] Start: 06-09-2023 ambulatory URIEL M HOY Facility: [facility] Start: 06-09-2023 End: 06-09-2023 Subsequent hospital visit by physician Iop Team B [facility] [place] Start: 06-08-2023 ambulatory URIEL M HOY Facility: [facility] Start: 06-08-2023 End: 06-08-2023 Subsequent hospital visit by physician Iop Team B [facility] [place] Start: 06-05-2023 End: 06-05-2023 ambulatory NICK LA Facility:[facility] Start: 06-04-2023 ambulatory URIEL M HOY Facility: [facility] Start: 06-04-2023 End: 06-04-2023 Subsequent hospital visit by physician Iop Team B [facility] [place] Start: 06-03-2023 ambulatory URIEL M HOY Facility: [facility] Start: 06-03-2023 End: 06-03-2023 Subsequent hospital visit by physician Iop Team B [facility] [place] Start: 05-29-2023 ambulatory Nahed Doran Facility:[facility] Start: 05-28-2023 ambulatory URIEL M HOY Facility: [facility] Start: 05-27-2023 ambulatory URIEL M HOY Facility: [facility] Start: 05-27-2023 End: 05-27-2023 Subsequent hospital visit by physician Iop Team B [facility] [place] Start: 05-27-2023 ambulatory URIEL M HOY Facility: [facility] Start: 05-27-2023 End: 05-27-2023 Subsequent hospital visit by physician Mya Tena APRN.CERTIFIED SHORTHAND REPORTER Work Phone: [facility] [place] Start: 05-26-2023 ambulatory URIEL M HOY Facility: [facility] Start: 05-26-2023 End: 05-26-2023 Subsequent hospital visit by physician Iop Team B [facility] [place] Start: 05-25-2023 ambulatory URIEL M HOY Facility: [facility] Start: 05-25-2023 End: 05-25-2023 Subsequent hospital visit by physician Mya Tena APRN.CERTIFIED SHORTHAND REPORTER Work Phone: [facility] [place] Comment on above: Canceled (Pt cx: Radha cardenas in Condition, Sick) Start: 05-21-2023 ambulatory URIEL M HOY Facility: [facility] Start: 05-21-2023 End: 05-21-2023 Subsequent hospital visit by physician Iop Team B [facility] [place] Start: 05-20-2023 ambulatory URIEL M HOY Facility: [facility] Start: 05-20-2023 End: 05-20-2023 Subsequent hospital visit by physician Iop Team B [facility] [place] Start: 05-19-2023 ambulatory URIEL M HOY Facility: [facility] Start: 05-19-2023 End: 05-19-2023 Subsequent hospital visit by physician Iop Team B [facility] [place] Start: 05-14-2023 ambulatory URIEL M HOY Facility: [facility] Start: 05-14-2023 End: 05-14-2023 Subsequent hospital visit by physician Iop Team B [facility] [place] Start: 05-13-2023 ambulatory URIEL M HOY Facility: [facility] Start: 05-13-2023 End: 05-13-2023 Subsequent hospital visit by physician Iop Team B [facility] [place] Start: 05-12-2023 ambulatory URIEL M HOY Facility: [facility] Start: 05-12-2023 End: 05-12-2023 Subsequent hospital visit by physician Josi Queen PA-C Work Phone: [facility] [place] Start: 04-27-2023 ambulatory URIEL M HOY Facility: [facility] Start: 04-22-2023 End: 04-22-2023 Emergency department patient visit Issa Lvey [facility] Start: 04-07-2023 Telephone encounter Lewis harding [facility] Work Phone: Psychiatry Comment on above: Patient Update Start: 03-26-2023 Refill Lino South MD Work Phone: Neurology Comment on above: Refill Request Start: 03-04-2023 End: 03-04-2023 ambulatory Nahed Doran Facility:[facility] Start: 03-04-2023 End: 03-04-2023 Lab Drop off Nahed Doran [facility] Start: 03-04-2023 End: 03-04-2023 ambulatory Nahed Dorna Facility:[facility] Start: 03-04-2023 End: 03-04-2023 Patient encounter procedure Nahed Doran [facility] Start: 02-27-2023 End: 02-27-2023 ambulatory Geraldine Alonso MD Work Phone: Neurology Comment on above: Chronic migraine wit hout aura without status migrainosus, not intractable (Primary Dx) Start: 02-27-2023 End: 02-27-2023 Telemedicine consultation with patient Geraldine Alonso MD Work Phone: [facility] Start: 01-29-2023 End: 01-29-2023 ambulatory Geraldine Alonso MD Work Phone: Neurology Comment on above: Chronic migraine wit hout aura without status migrainosus, not intractable (Primary Dx) Start: 01-29-2023 End: 01-29-2023 Telemedicine consultation with patient Geraldine Alonso MD Work Phone: [facility] Start: 12-16-2022 Telephone encounter Lino voss MD Work Phone: Neurology Comment on above: Medication Concern ( Indomethacin) Start: 12-16-2022 End: 12-16-2022 Patient encounter procedure Cassandra Grant PhD Work Phone: Neurology Comment on above: Bipolar II disorder (HCC) (Primary Dx) Migraine without aur a, intractable, with status migrainosus (Primary Dx); Partial epilepsy with impairment of consciousness, intractable (HCC) Start: 12-12-2022 Refill Lizeth Rubin APRN.CNP Work Phone: Neurology Start: 12-11-2022 Refill Geraldine rodriguez MD Work Phone: Neurology Comment on above: Refill Request medication concern Start: 11-20-2022 ambulatory Lino South MD Work Phone: Neurology Comment on above: mental health Start: 11-20-2022 Telephone encounter Geraldine gandara MD Work Phone: Neurology Start: 10-29-2022 End: 10-29-2022 Emergency department patient visit MD Uriel Nunez Work Phone: [facility] Work Phone: Start: 09-29-2022 End: 09-29-2022 Admission to same day surgery center Marilyn Nassar [facility] Start: 09-19-2022 ambulatory Facility:[facility] Start: 09-19-2022 End: 09-19-2022 Patient encounter procedure Marilyn Nassar [facility] Start: 09-17-2022 Telephone encounter Lino voss MD Work Phone: Neurology Comment on above: Letter (Surgery colton santiago) Start: 08-28-2022 ambulatory Lino South MD Work Phone: Neurology Comment on above: VNS Start: 08-12-2022 End: 08-12-2022 ambulatory GERALDINE ALONSO Facility:[facility] Start: 07-31-2022 Telephone encounter Lino voss MD Work Phone: Neurology Comment on above: Opened In Error (//) Other (Patient needs to have MRI of knee) Start: 07-28-2022 End: 07-29-[address] URIEL NUNEZ . Facility: Start: 07-15-2022 Refill Lino South MD Work Phone: Neurology Comment on above: Refill Request Start: 07-09-2022 Telephone encounter Lino voss MD Work Phone: Neurology Comment on above: Other (headaches) Start: 04-28-2022 End: 04-28-2022 Patient encounter procedure Aida Ervin PA-C Work Phone: Neurosurgery Comment on above: 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 (Primary Dx); Tenderness of neck Start: 02-17-2022 Refill Lino South MD Work Phone: Neurology Comment on above: Refill Request Start: 02-15-2022 Refill Jemima Olivera Work Phone: Neurology Comment on above: Refill Request Start: 02-13-2022 Telephone encounter Michael Cordoba RN Neurology Comment on above: Patient Question Start: 01-12-2022 End: 01-13-[address] URIEL NUNEZ . Facility:[facility] Start: 01-07-2022 End: 01-07-2022 Patient encounter procedure oJse Angel Emery APRN.CERTIFIED SHORTHAND REPORTER Work Phone: Neurosurgery Comment on above: 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 (Primary Dx) Start: 01-07-2022 End: 01-07-2022 Subsequent hospital visit by physician Xr Chest Main J1 Work Phone: Radiology Comment on above: 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 [Z96.89] Start: 01-06-2022 ambulatory Johann ghosh MD Work Phone: Neurosurgery Comment on above: Jaye Start: 01-06-2022 Patient encounter procedure Johann Borrero MD Work Phone: Neurosurgery Comment on above: Appointment Start: 01-06-2022 Telephone encounter Johann Borrero MD Work Phone: Neurology Comment on above: Patient Update (Vns issue) Start: 01-05-2022 End: 01-06-[address] URIEL NUNEZ . Facility:[facility] Start: 12-25-[address] URIEL NUNEZ . Facili ty:[facility] Start: 11-02-[address] URIEL NUNEZ . Facili ty:[facility] Start: 10-04-2021 End: 10-04-[address] [facility] Lesvia Viveros YD Work Phone: Neurology Comment on above: Bipolar [...] Start: 09-13-2021 End: 09-13-[address] 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, intractable (HCC) (Primary Dx); Recurrent major depression in partial remission (HCC) Start: 11-18-2016 End: 11-18-2016 Emergency department patient visit [facility] Procedures Date Procedure Procedure Detail Performing Clinician Start: 05-27-2024 Radex spine cervical 4 or 5 views Jodi Denney APRN.CERTIFIED SHORTHAND REPORTER Work Phone: Start: 05-25-2024 Radex shoulder compl ete minimum 2 views Paola DE LA FUENTE Work Phone: Start: 05-24-2024 Mri spinal canal lum bar w/o contrast material Hayder Ding DO Work Phone: Start: 05-23-2024 Arthrocentesis aspir &/inj major jt/bursa w/o us Paola DE LA FUENTE Work Phone: Start: 05-23-2024 Radiologic examinati on knee 3 views Paola DE LA FUENTE Work Phone: Start: 09-25-2023 Plain chest X-ray MD Garcia Work Phone: Start: 09-23-2023 CT of head without contrast MD Uriel Nunez Work Phone: Start: 09-23-2023 Plain chest X-ray MD Garcia Work Phone: Start: 08-26-2023 Radiologic exam ches t 2 views Aida DE LA FUENTE-C Work Phone: Start: 08-26-2023 Radiologic examinati on neck soft tissue Aida Arcadio DE LA FUENTE-C Work Phone: Start: 10-23-2022 History of operative procedure on knee S/P medial meniscectomy of left knee Shawnee Moeller PT Start: 09-29-2022 Arthroscopy of knee Luiz Nassar Start: 01-07-2022 Radiologic exam ches t 2 views Aida DE LA FUENTE-Joselin Work Phone: Start: 01-07-2022 Radiologic examinati on neck soft tissue Aida Ervin PA-C Work Phone: Start: 09-25-[address] JOHNY NUNEZ . Comment on above: Performed By: #### [facility], [facility] #### [facility] [address] [place] [address] Dr. Meron Gentile Start: 06-20-2020 Lipid 1996 panel - S jaspreet or Plasma Geraldine Alonso MD Work Phone: Start: 11-25-2018 Cystoscope, device (physical object) Nahed Doran Start: 11-18-2016 [facility] Start: 01-04-2016 Laparoscopic appendectomy Marilyn Nassar Start: 05-18-2000 Vagal nerve stimulat or (physical object) Marilyn Nassar Comment on above: pt states he has had the implant replaced 19 times with last in 2020, and the wires were also replaced in 2020 History of tonsillectomy Luiz Nassar Plan of Treatment Date Care Activity Detail Author Start: 06-20-2025 Lipid 1996 panel - S jaspreet or Plasma Lipid Screening [facility] Start: 06-20-2025 Lipid panel Lipid Screening [facility] Start: 06-20-2025 LIPID SCREEN LIPID SCREEN [facility] Start: 01-18-2025 Adult BMI Screening Adult BMI Screen ing [facility] Start: 01-18-2025 Tobacco Screening Tobacco Screening [facility] Start: 01-16-2025 Influenza vaccination Influenz a Vaccine (Season Ended) [facility] Start: 11-29-2024 End: 11-29-2024 Patient encounter procedure 11/29/2024 10:30 AM EDT Office Visit Pain Management [address] [place] [address] [place] [address] [facility] [address] [place] [address] RFA follow up, patient reuesting to be seen in [place] [facility] Comment on above: RFA follow up, patie nt reuesting to be seen in [place] Start: 09-19-2024 End: 09-19-2024 Admission to same day surgery center 09/19/2024 9:00 AM EDT - 09/19/2024 9:33 AM EDT Surgery Procedures [address] [place] [address] [place] [address] [facility] [address] [place] [address] DESTRUCTION BY NEUROLYTIC AGENT PARAVERTEBRAL FACET JOINT NERVE(S) LUMBAR SINGLE FACET JOINT W/IMAGE GUIDANCE FLUORO OR CT Procedures Comment on above: DESTRUCTION BY NEURO LYTIC AGENT PARAVERTEBRAL FACET JOINT NERVE(S) LUMBAR SINGLE FACET JOINT W/IMAGE GUIDANCE FLUORO OR CT Start: 09-19-2024 End: 09-19-2024 Dstr nrolytc agnt parverteb fct sngl lmbr/sacral DESTRUCTION BY NEUROLYTIC AGENT PARAVERTEBRAL FACET JOINT NERVE(S) LUMBAR SINGLE FACET JOINT W/IMAGE GUIDANCE FLUORO OR CT Lumbosacral spondylosis without myelopathy Degeneration of intervertebral disc of lumbar region with discogenic back pain 09/19/2024 9:00 AM EDT [facility] Start: 09-19-2024 Subsequent hospital visit by physician Procedures Comment on above: Lumbosacral spondylo sis without myelopathy [M47.817], Degeneration of intervertebral disc of lumbar region with discogenic back pain [M51.360] Start: 08-31-2024 Subsequent hospital visit by physician 08/31/2024 Hospital Encounter Ambulatory Surgery [address] [place] [address] Krzysztof Blankenship, DO [facility] [address] [place] [address] Lumbosacral spondylosis without myelopathy [M47.817], Degeneration of intervertebral disc of lumbar region with discogenic back pain [M51.360], Lumbosacral spondylosis without myelopathy [M47.817], Degeneration of intervertebral disc of lumbar region with discogenic back pain [M51.360] Ambulatory Surgery Comment on above: Lumbosacral spondylo sis without myelopathy [M47.817], Degeneration of intervertebral disc of lumbar region with discogenic back pain [M51.360], Lumbosacral spondylosis without myelopathy [M47.817], Degeneration of intervertebral disc of lumbar region with discogenic back pain [M51.360] Start: 08-17-2024 End: 08-17-2024 Admission to same day surgery center 08/17/2024 11:00 AM EDT - 08/17/2024 11:28 AM EDT Surgery Ambulatory Surgery [address] [place] [address] Krzysztof Blankenship, DO [facility] [address] [place] [address] BLOCK JOINT FACET LUMBAR OR SACRAL WITH C-ARM Ambulatory Surgery Comment on above: BLOCK JOINT FACET KAYLA MBAR OR SACRAL WITH C-ARM Start: 08-17-2024 End: 08-17-2024 Njx dx/ther agt pvrt facet jt lmbr/sac 1 level [facility] Start: 08-17-2024 Subsequent hospital visit by physician 08/17/2024 11:00 AM EDT Hospital Encounter Ambulatory Surgery [address] [place] [address] [place] [address] [place] [address] Lumbosacral spondylosis without myelopathy [M47.817], Degeneration of intervertebral disc of lumbar region with discogenic back pain [M51.360] Ambulatory Surgery Comment on above: Lumbosacral spondylo sis without myelopathy [M47.817], Degeneration of intervertebral disc of lumbar region with discogenic back pain [M51.360] Start: 08-05-2024 End: 08-05-2024 ambulatory 08/05/2024 9:30 AM EDT [facility] [address] [place] [address] Jodi Denney APRN.CERTIFIED SHORTHAND REPORTER [address] [place] [address] 10 week [facility]V Pain Management Comment on above: 10 week VV Start: 07-27-2024 End: 07-27-2024 ambulatory 07/27/2024 5:00 PM EDT [facility] [address] [place] [address] [place] [address] [facility] [address] [place] [address] re-eval Pain Management Comment on above: re-eval Start: 07-06-2024 End: 07-06-2024 Patient encounter procedure 07/06/2024 10:30 AM EST Office Visit [facility] [address] [place] [address] Paola Arvizu PA [address] [place] [address] [facility] Start: 06-28-2024 End: 06-28-2024 Follow-up encounter 06/28/2024 12:00 PM EST [facility] [address] [place] [address] [place] [address] [place] [address] follow up Pain Management Comment on above: follow up Start: 06-16-2024 End: 06-16-2024 ambulatory 06/16/2024 11:00 AM EST Evaluation [facility] [address] [facility] [address] [place] [address] Brian Mancilla, PT [address] [facility] [address] [place] [address] [facility] Start: 05-27-2024 End: 05-27-2024 Patient encounter procedure 05/27/2024 8:00 AM EST Office Visit Pain Management [address] [facility] [address] Jodi Denney, PRODUCT PICKER.CERTIFIED SHORTHAND REPORTER [address] [place] [address] follow up after mri Pain Management Comment on above: follow up after mri Start: 05-25-2024 End: 05-25-2024 Patient encounter procedure 05/25/2024 10:15 AM EST Office Visit [facility] [address] [place] [phone] Paola Arvizu PA [address] [place] [address] [facility] Start: 05-24-2024 End: 05-24-2024 Patient encounter procedure MRI Q Comment on above: DUE TO PT IMPLANT- I F APPT NEEDS TO BE RESCHEDULED IT MUST BE SENT TO THE FOLLOWING STAFF MESSAGE ADDRESS: IMAGING IMPLANTS [[id number]]. VNS, approved to schedule by Tim. VNS turn on Start: 05-24-2024 End: 05-24-2024 Patient encounter procedure 05/24/2024 8:30 AM EST Office Visit Neurosurgery [address] [place] [address] Jemima Purdy, PRODUCT PICKER.CERTIFIED SHORTHAND REPORTER [address] [place], [place] [id number] VNS Turn off Neurosurgery Comment on above: VNS Turn off Start: 03-30-2024 End: 03-30-2024 Patient encounter procedure 03/30/2024 4:30 PM EST Office Visit Pain Management [address] [facility] [address] [place] [address] [place] [address]OM[facility] [address] [place] [id number] M51.360 (ICD-10-CM) - Degeneration of intervertebral disc of lumbar region with discogenic back pain Pain Management Comment on above: M51.360 (ICD-10-CM) - Degeneration of intervertebral disc of lumbar region with discogenic back pain Start: 03-09-2024 End: 03-09-2024 ambulatory 03/09/2024 10:00 AM EDT Treatment [facility] [address] [facility] [address] [place] [address] Shawnee Moeller, PT [facility] Start: 03-07-2024 End: 03-07-2024 ambulatory 03/07/2024 9:30 AM EDT Treatment [facility] [address] [facility] [address] [place] [address] Shawnee Moeller, PT [facility] Start: 03-02-2024 End: 03-02-2024 ambulatory 03/02/2024 9:30 AM EDT Treatment [facility] [address] [place] [address] Lj Cabello, TRANSIT MECHANIC [facility] Start: 03-01-2024 End: 03-01-2024 Patient encounter procedure 03/01/2024 8:15 AM EDT Office Visit [facility] [address] [place] [phone] Chester Maher, PRODUCT PICKER-CERTIFIED SHORTHAND REPORTER [address] [place] [address] [facility] Start: 02-29-2024 End: 02-29-2024 ambulatory 02/29/2024 10:00 AM EDT Treatment [facility] [address] [facility] [address] [place] [address] Lj Cabello, TRANSIT MECHANIC [facility] Start: 02-24-2024 End: 02-24-2024 ambulatory 02/24/2024 9:30 AM EDT Treatment [facility] [address] [facility] [address] [place] [address] Lj Cabello, TRANSIT MECHANIC [facility] Start: 02-22-2024 End: 02-22-2024 ambulatory [facility] Comment on above: Arrived Start: 02-15-2024 End: 02-15-2024 Patient encounter procedure 02/15/2024 11:00 AM EDT Office Visit [facility] [address] [place] [phone] Paola Arvizu PA [address] [facility] [place] [address] [facility] Start: 01-17-2024 Covid-19 Vaccine ( season) Covid-19 Vaccine ( season) [facility] Start: 01-17-2024 Covid-19 Vaccine ( season) Covid-19 Vaccine ( season) [facility] Start: 01-17-2024 Influenza vaccination C [facility] Start: 11-03-2023 End: 02-02-2024 LACOSAMIDE LACOSAMIDE Lab Routine Partial epilepsy with impairment of consciousness, intractable (HCC) Expected: 11/03/2023, Expires: 02/02/2024 [facility] Work Phone: Comment on above: Expected: 11/03/2023 , Expires: 02/02/2024 Start: 11-03-2023 End: 11-03-2023 Patient encounter procedure Neurology Comment on above: follow up f/u Start: 09-28-2023 End: 09-28-2023 Admission to same day surgery center 09/28/2023 11:30 AM EDT [facility] Neurosurgery [address] [place] [address] Aida Ervin PA-C [address] [place] [address] POST-OP 6WKS Neurosurgery Comment on above: POST-OP 6WKS Start: 09-26-2023 [facility] Start: 09-25-2023 Referral to psychiatrist [facility] Start: 09-23-2023 Consultation [facility] Start: 09-23-2023 Hospital admission [facility] Start: 08-26-2023 End: 11-25-2023 aPTT in Platelet poor plasma by Coagulation assay ACTIVATED PTT Lab Routine Encounter for therapeutic drug level monitoring Expected: 08/26/2023, Expires: 11/25/2023 [facility] Work Phone: Comment on above: Expected: 08/26/2023 , Expires: 11/25/2023 Start: 08-26-2023 End: 11-25-2023 CBC panel - Blood by Automated count CBC Lab Routine Preoperative testing Expected: 08/26/2023, Expires: 11/25/2023 [facility] Work Phone: Comment on above: Expected: 08/26/2023 , Expires: 11/25/2023 Start: 08-26-2023 End: 11-25-2023 Comprehensive metabolic 2000 panel - Serum or Plasma COMP METABOLIC PANEL Lab Routine Preoperative testing Expected: 08/26/2023, Expires: 11/25/2023 [facility] Work Phone: Comment on above: Expected: 08/26/2023 , Expires: 11/25/2023 Start: 08-26-2023 End: 11-25-2023 PT panel - Platelet poor plasma by Coagulation assay PROTHROMBIN TIME/PT Lab Routine Encounter for therapeutic drug level monitoring Expected: 08/26/2023, Expires: 11/25/2023 [facility] Work Phone: Comment on above: Expected: 08/26/2023 , Expires: 11/25/2023 Start: 08-26-2023 End: 02-01-2024 STAPH AUREUS PCR STAPH AUREUS PCR Lab Routine Preoperative testing Expected: 08/26/2023, Expires: 02/01/2024 [facility] Work Phone: Comment on above: Expected: 08/26/2023 , Expires: 02/01/2024 Start: 08-03-2023 End: 11-02-2023 LACOSAMIDE LACOSAMIDE Lab Routine Partial epilepsy with impairment of consciousness, intractable (HCC) Expected: 08/03/2023, Expires: 11/02/2023 [facility] Work Phone: Comment on above: Expected: 08/03/2023 , Expires: 11/02/2023 Start: 01-16-2023 Covid-19 Vaccine ( season) Covid-19 Vaccine ( season) [facility] Start: 01-16-2023 Influenza vaccination C [facility] Start: 10-29-2022 Radiologic examinati on of knee XR knee LT 4V* [facility] Start: 01-16-2022 Influenza vaccination C [facility] Start: 08-09-2021 COVID-19 VACCINE (3 - Booster for Pfizer series) COVID-19 VACCINE (3 - Booster for Pfizer series) [facility] Start: 05-06-2021 COVID-19 VACCINE (3 - Booster for Pfizer series) COVID-19 VACCINE (3 - Booster for Pfizer series) [facility] Start: 05-06-2021 COVID-19 VACCINE (3 - Pfizer series) COVID-19 VACCINE (3 - Pfizer series) [facility] Start: 2001 DTaP,Tdap and Td Vaccines (1 - Tdap) DTaP,Tdap and Td Vaccines (1 - Tdap) [facility] Start: 2001 Hepatitis B Vaccine (1 of 3 - 19+ 3-dose series) Hepatitis B Vaccine (1 of 3 - 19+ 3-dose series) [facility] Start: 2001 Urine microalbumin profile [facility] Start: 2000 Adult BMI Follow Up Plan Adult BMI Follow Up Plan [facility] Start: 2000 Annual PCP Team Load Blocker [place] Disease Visit Annual PCP Team Chronic Disease Visit [facility] Start: 2000 BP Controlled (<130/80) BP Controlle d (<130/80) [facility] Start: 1994 Depression Screening Depression Scre ening [facility] Start: 1982 HEPATITIS B (1 of 3 - 3-dose series) HEPATITIS B (1 of 3 - 3-dose series) [facility] Start: 1982 Hepatitis B Vaccine (1 of 3 - 3-dose series) Hepatitis B Vaccine (1 of 3 - 3-dose series) [facility] Dstr nrolytc agnt parverteb fct sngl lmbr/sacral DESTRUCTION BY NEUROLYTIC AGENT PARAVERTEBRAL FACET JOINT NERVE(S) LUMBAR SINGLE FACET JOINT W/IMAGE GUIDANCE FLUORO OR CT Lumbosacral spondylosis without myelopathy Degeneration of intervertebral disc of lumbar region with discogenic back pain AV ENDO ECG COMPLETE ECG COMPLETE ECG Routine Pre-op evaluation 08/26/2023 8:52 AM EDT [facility] Work Phone: End: 04-29-2025 MR Lumbar spine WO contrast MRI LUMBAR SPINE WO IVCON Radiology Routine Spinal stenosis of lumbar region without neurogenic claudication 1 Occurrences starting 03/30/2024 until 04/29/2025 [facility] Work Phone: Comment on above: 1 Occurrences starti ng 03/30/2024 until 04/29/2025 Njx dx/ther agt pvrt facet jt lmbr/sac 1 level [facility] [place] Patient referral [facility] Work Phone: Procalcitonin [Mass/volume] in Serum or Plasma [facility] REFER FOR ADMIT INTERVIEW REFER FOR ADMIT INTERVIEW Procedures Routine Preoperative testing Ordered: 08/05/2023 [facility] Work Phone: Comment on above: Ordered: 08/05/2023 End: 09-03-2024 XR Chest PA and Lateral XR CHEST 2V FRONTAL/LAT Radiology Routine Preoperative testing 1 Occurrences starting 08/05/2023 until 09/03/2024 [facility] Work Phone: Comment on above: 1 Occurrences starti ng 08/05/2023 until 09/03/2024 End: 01-18-2025 XR Lumbar spine 2 or 3 Views X-ray spine lumbar 2 or 3 views Imaging Routine Chronic bilateral low back pain, unspecified whether sciatica present 1 Occurrences starting 01/19/2024 until 01/18/2025 [facility] Work Phone: Comment on above: 1 Occurrences starti ng 01/19/2024 until 01/18/2025 XR Lumbar spine 2 or 3 Views X-ray spine lumbar 2 or 3 views Imaging Routine Chronic bilateral low back pain, unspecified whether sciatica present 01/19/2024 2:57 PM ED[facility] End: 09-03-2024 XR Neck AP and Lateral XR NECK SOFT TISSUE 2V AP/LAT Radiology Routine Preoperative testing 1 Occurrences starting 08/05/2023 until 09/03/2024 [facility] Work Phone: Comment on above: 1 Occurrences starti ng 08/05/2023 until 09/03/2024 [facility] Immunizations Immunization Date Immunization Notes Care Provider Rohan benedict 03-11-2021 SARS-CoV-2 (COVID-19 ) mRNA BNT-162b2 vax Nahed Lue [facility] Comment on above: Result Comment: 2022: [facility] 02-18-2021 SARS-CoV-2 (COVID-19 ) mRNA BNT-162b2 vax Nahed Lue [facility] Comment on above: Result Comment: 2022: [facility] Payers Date Payer Category Payer Self-pay [id number] 2017 Medicaid MEDICAID [facility] MEDICAID [id number] 2017-Present [phone] [address] [place] [address] Medicaid [id number] 2017 Medicaid [id number] 1.13.159.2.7.3.6 [id number] 2014 Medicare [id number] 2005 Medicare MEDICARE MEDICAR E A AND B [id number] 2005-Present [phone] [address] [address] [place] [address] Medicare [id number] [id number] 2005 Medicare [id number]. 1.13.159.2.7.3.6 [id number] 1982 Unknown [id number] 2.16840.1.423069.3.579.2.59 1982 Unknown [id number] .16840.1.639831.3.579.2.593 1982 Unknown [id number] .840.1.626839.3.579.2.593 1982 Unknown [id number] 2.16.840.1.466221.3.579.2.593 1982 Unknown [id number] 2.16.840.1.462510.3.579.2.59 1982 Unknown [id number] 2.16.840.1.542501.3.579.2.593 1982 Unknown [id number] 2.16.840.1.011396.3.579.2.593 1982 Unknown [id number] 2.16.840.1.213297.3.579.2.356 1982 Unknown [id number] 2.840.1.445311.3.579.2. 1982 Unknown [id number] 2.16840.1.321478.3.579.2. 1982 Unknown [id number] 2.840.1.770366.3.579.2. 1982 Unknown [id number] 2.840.1.547121.3.579.2. 1982 Unknown [id number] 2.840.1.499280.3.579.2. 1982 Unknown [id number] 2.840.1.680816.3.579.2 1982 Unknown [id number] 07.03.830.1.067554.3.579.2. 1982 Unknown [id number] .840.1.960923.3.579.2.1285 1982 Unknown [id number] 840.1.553946.3.579.2.1285 1982 Unknown [id number] 840.1.475749.3.579.2.1285 1982 Unknown [id number] 07.03.830.1.327511.3.579.2.1285 1982 Unknown [id number] .840.1.491638.3.579.2.1285 1982 Unknown [id number] 840.1.914955.3.579.2.1285 1982 Unknown [id number] 2.840.1.286820.3.579.2.1258 1982 Unknown [id number] 2.840.1.459083.3.579.2.1258 1982 Unknown [id number] 840.1.418602.3.579.2.9 1982 Unknown [id number] 2.16.840.1.577833.3.579.2.1258 1982 Unknown [id number] 2.16.840.1.830226.3.579.2.1258 1982 Unknown [id number] 2.16.840.1.175336.3.579.2.1258 1982 Unknown [id number] 2.16.840.1.720047.3.579.2.1258 1982 Unknown [id number] 2.16.840.1.788299.3.579.2.1258 1982 Unknown [id number] 2.16.840.1.836518.3.579.2.1259 1959 Medicaid [id number] 1959 Medicare [id number] 1959 Self-pay [id number] Unknown [id number] 2.16.840.1.909936.3.579.2.531 Unknown [id number] 2.16.840.1.134575.3.579.2.531 Unknown [id number] 2.16.840.1.569692.3.579.2.531 Social History Date Type Detail Facility Start: 07-31-2010 End: 01-02-2011 Tobacco smoking status IAIS Never smoked tobacco [facility] Start: 07-31-2010 End: 01-02-2011 Tobacco use and exposure Smokeless tobacco non-user [facility] Start: 08-20-2021 End: 05-27-2024 Alcohol intake Current non-drinker of alcohol (finding) [facility] Start: 1980 Sex Assigned At Not on file [facility] Start: 08-19-2021 End: 01-07-2022 Exposure to SARS-CoV-2 (event) Not sure [facility] Tobacco smoking status No Smokin g Status Entered [facility] Start: 10-27-2022 End: 08-31-2024 Sex Assigned At Male [facility] Start: 1980 Sex Assigned At Male F [facility] Start: 10-27-2022 End: 08-31-2024 History of Social function [facility] Adult Depression Screening Assessment 3 [facility] Start: 11-09-2023 Alcoholic beverage intake Ex-drinker (finding) [facility] Start: 10-29-2022 Alcohol Comment soda/pop 2-3 c ups per day [facility] Start: 05-23-2024 Tobacco use and exposure Former smokeless tobacco user [facility] Start: 01-19-2024 End: 05-23-2024 Alcoholic beverage intake Lifetime non-drinker (finding) [facility] Start: 12-21-2014 Sex Male (finding) [facility] Medical Equipment Procedure Code Equipment Code Equipment Origin al Text Equipment Identifier Dates Generator Vns Th erapy Aspirehc Neurostimulator Epilepsy Sterile - [id number] Start: 02-04-2018 Dyr-Xu-I-Kind Im plant - [id number] Start: 04-01-2016 Comment on above: Description: GENERATOR VNS THERAPY ASPIR EHC NEUROSTIMULATOR EPILEPSY STERILE Lead Vns Therapy 2mm Silicone 43cm Neurostimulator 1 Pin Bipolar Model - [id number] Start: 09-20-2020 Generator Vns Th erapy Aspiresr Thk7mm Neurostimulator 14cc 1 Pin Lead - [id number] Start: 05-16-2019 Generator Vns Th erapy Aspiresr Thk7mm Neurostimulator 14cc 1 Pin Lead - [id number] Start: 06-28-2020 Generator Vns Th erapy Aspiresr Thk7mm Neurostimulator 14cc 1 Pin Lead - [id number] Start: 09-20-2020 Generator Vns Th erapy Aspiresr Thk7mm Neurostimulator 14cc 1 Pin Lead - [id number] Start: 08-31-2023 Goals Date Patient Goal Desired Activity /State Functional Status Date Assessment Result Facility 12-01-2023 Functional Status N/A [facility] 09-26-2023 Functional status Patient at [facility] Work Phone: 09-24-2023 Functional status Functional Sta tus Comment pt not able to answer all question. Mom and sister at the bedside [facility] Work Phone: 04-22-2023 Functional Status N/A [facility] 03-04-2023 Functional Status N/A [facility] 09-19-2022 Functional Status No [facility] 09-21-2020 Are you deaf, or do you have serious difficulty hearing No 09/21/2020 11:16 AM Gris Dunne RN No [facility] 09-21-2020 Are you blind, or do you have serious difficulty seeing, even when wearing glasses No 09/21/2020 11:16 AM Gris Dunne, NICHOLAS No [facility] 09-21-2020 Do you have serious difficulty walking or climbing stairs No 09/21/2020 11:16 AM Girs Dunne, NICHOLAS [facility] 09-21-2020 Do you have difficul ty dressing or bathing No 09/21/2020 11:16 AM Gris Dunne, RN No [facility] 09-21-2020 Because of a physica l, mental, or emotional condition, do you have difficulty doing errands alone such as visiting a physician's office or shopping No 09/21/2020 11:16 AM Gris Dunne, RN No [facility] Mental Status Date Assessment Result Facility 09-26-2023 Cognitive function Cognitive Sta tus Patient at [facility] Work Phone: 09-21-2020 Because of a physica l, mental, or emotional condition, do you have serious difficulty concentrating, remembering, or making decisions No 09/21/2020 11:16 AM Gris Dunne, NICHOLAS No [facility] Clinical Notes 04-07-2016 to 09-21-2024 Telephone Encounter - Alba Youngblood RN - 09/21/2024 10:18 AM EDTTelephone Encounter - Alba Youngblood RN - 09/21/2024 10:18 AM EDTTelephone Encounter - Marleni Arriola - 09/15/2024 9:59 AM EDT Note Date & Type Note Facility 09-21-2024 Note HNO ID: [id number] Author: SOBEIDA GALVAN MD Service: ? Author Type: Physician Type: Progress Notes Filed: 09/21/2024 16:35 Note Text: FOLLOW UP - PSYCHIATRIC PROGRESS [...] visit. Either the patient or their legal patient access representative has been informed of the risks and benefits of -- and alternatives to -- treatment through a remote evaluation and consents to proceed with the evaluation remotely. Reason for Visit: Outpatient follow-up and safety monitoring of previously prescribed psychiatric medication, psychotherapy or other treatment CC: Medication management HPI: Mr. 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 CERTIFIED [employer]ORTHAND REPORTER. Was last seen in May, at that time medication was continued. Patient messaged recently reporting worsening stress with loss of grandfather over the weekend. Today, reports that he has been dealing with a lot of hard feelings from family since patient took him off of life support. However, patient was honoring the living will. Notable blood clot in grandfather's neck. Was not on blood thinners. Patient is angry at family for taking him off blood thinners and not staying with grandfather 08/12. Also recently learned that maternal grandfather is not doing well. Reports that he feels tired but states that he also been really jumpy . Is having more panic attacks and night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 transitional vertebra. He recently established care with Dr. Blankenship on 03/30/2024. At last office visit with Dr. Blankenship he recommended: 1) Patient prescribed diclofenac which he will continue as needed, states that topicals have not worked in the past 2) Continue Physical therapy once pain under control. 3) Consider MRI Lumbar spine. 4) Consider Lumbar MARYLIN. 5) RTC in 8 weeks for F/U. Since last office visit he has continued mid thoracic and lower back pain. He describes pain as a diffuse aching sensation/tightness. Pain can impact his ability to remain active. He also reports new pain that starts in his occiput and will radiate towards the front of head. Pain can be sharp stabbing. He is concerned that this pain could be coming from an issue in his cervical spine. We discussed getting x (more content not included)... [facility] 05-25-2024 History of Present illness Narrative GENERAL HISTORY AND PHYSICAL: NAME: Jaye Harvey : 1980 HISTORY OF PRESENT ILLNESS: Jaye Harvey is an 43 y.o. male is here for orthopedic evaluation right shoulder pain which he has had for several years he had old injury and broke his humerus back in 1994 and states that he was told that it did not heal properly. He has had increased discomfort with use of the arm above chest height or overhead for the past several years. He denies any specific injury he is here for 1st time evaluation of the shoulder. Pain is referred to the deltoid region and sometimes anterior biceps. Patient does have seizure disorder and denies any prior dislocation of his shoulder. He states that he has had some improvement with cortisone given just a couple days ago in his knees. He is not diabetic he has not on blood thinning agents. He does take Motrin routinely. PAST MEDICAL HISTORY: Past Medical History: Diagnosis Date Arthritis Depression (CMS/HCC) Migraines (CMS/HCC) HIMA treated with BiPAP Seizure disorder (CMS/HCC) PAST SURGICAL HISTORY: Past Surgical History: Procedure Laterality Date SEPTOPLASTY Procedure:Raghuo, Christopher[facility] 2-28-12;Disease: TONSILLECTOMY 05/26/2011 VAGUS NERVE STIMULATOR INSERTION SOCIAL HISTORY: Social History Occupational History Not on file Tobacco Use Smoking status: Never Smokeless tobacco: Former Vaping Use Vaping status: Never Used Substance and Sexual Activity Alcohol use: Never Comment: soda/pop 2-3 cups per day Drug use: Never Sexual activity: Yes Partners: Male ALLERGIES: Allergies Allergen Reactions Levetiracetam Anxiety and Unknown Other Reaction(s): increase ADHD Increases his ADHD Desvenlafaxine Hallucinations and Unknown sz Ketorolac Tromethamine Unknown unknown MEDICATIONS: Current Outpatient Medications Medication Instructions albuterol HFA 90 mcg/act inhaler INHALE 1 PUFF BY MOUTH EVERY 4 HOURS NEEDED FOR 30 DAYS Cetirizine HCl 10 MG capsule 1-2 tablets, Oral clonazePAM (KLONOPIN) 2 mg, Oral, 3 times daily cloNIDine (CATAPRES) 0.1 mg, Oral, 2 times daily cyproheptadine (Periactin) 4 MG tablet 1 tablet, Oral, 2 times daily diclofenac sodium (VOLTAREN) 2 g, Topical, 3 times daily docusate sodium (Colace) 100 MG capsule TAKE 1 CAPSULE BY MOUTH TWICE A DAY NEEDED erenumab (AIMOVIG) 140 mg, Subcutaneous, Every 30 days ergocalciferol (Vitamin D2) 1.25 MG (09351 UT) capsule TAKE 1 CAPSULE BY MOUTH EVERY 7 DAYS FOR 28 DAYS fluticasone (Flonase) 50 MCG/ACT nasal spray 1 spray, Does not apply, 2 times daily ibuprofen 800 mg, Every 8 hours PRN lacosamide (VIMPAT) 100 mg, Oral, 2 times daily Linzess 72 MCG capsule TAKE 1 CAPSULE DAILY 30 MINUTES BEFORE FIRST MEAL OF DAY ON EMPTY STOMACH lurasidone (LATUDA) 80 mg, Oral, Daily with evening meal nadolol (CORGARD) 80 mg, Oral, 2 times daily ondansetron ODT (Zofran-ODT) 4 MG disintegrating tablet 1 tablet on the tongue and allow to dissolve = for nausea Orally Q 6 hours PRN pantoprazole (ProtoNix) 40 MG EC tablet TAKE 1 TABLET BY MOUTH EVERY DAY FOR 30 DAYS promethazine (Phenergan) 25 MG tablet 1 po tid prn headache or nausea QUEtiapine (SEROQUEL) 200 mg, Every 24 hours rizatriptan BIRTH ATTENDANT (MAXALT-BIRTH ATTENDANT) 10 mg, Oral sertraline (ZOLOFT) 300 mg, Oral simvastatin (ZOCOR) 20 mg, Every 24 hours Voltaren 1 % gel Topical REVIEW OF SYSTEMS: Review of Systems General: Denies appetite or significant weight change. Denies fever, chills or night sweats. Denies lightheadedness. ENT: Denies dry mouth, sore throat or swollen glands. Denies difficulty swallowing. Denies ear pain. Respiratory: Denies chest pain, SOB, cough or wheezing. Denies asthma or pneumonia symptoms. Cardiovascular: Denies CP or palpitations. No syncope or dyspnea on exertion. Gastrointestinal: Denies nausea or vomiting. Denies heartburn or abdominal pain. Denies diarrhea. Genitourinary: Denies frequent or painful urination. Musculoskeletal: See HPI for comments. Integumentary: Denies rash, lesion or skin infection. Neurologic: Denies dizziness, headache or seizure history. Vitals: Body mass index is 32.19 kg/m . PHYSICAL EXAM: Physical Exam Patient has forward flexion 150 degrees. His impingement at about 135 is able to extend beyond this. He has isolated abduction to 100 degrees with pain noted at 90 degrees internal rotation to the lower thoracic spine external rotation from neutral is 80 degrees. He has excellent supraspinatus strength as well as subscap and infraspinatus. Crepitus is noted with passive internal external rotation while abducted at 90 degrees. Patient does have noted bowing of the proximal 3rd of the humerus with appearance of the arm and to palpate. Deltoid he has intact no evidence of any atrophy axillary nerve appears intact. Orders Placed This Encounter Procedures XR shoulder 2+ views right Order Specific Question: Reason for exam: Answer: pain Ambulatory referral to Physical Therapy Standing Status: Future Standing Expiration Date: 11/22/2024 Referral Priority: Routine Referral Type: Rehabilitation - Outpatient Referral Reason: Specialty Services Required Referred to Provider: Brian Mancilla, PT Requested Specialty: Physical Therapy Number of Visits Requested: 1 XR shoulder 2+ views right Imaging Result: AP Grashey scapular Y-view of the right shoulder taken in the office today demonstrates AC joint arthritic findings with inferior spur off the distal clavicle which would certainly cause impingement no evidence of fracture patient has old bowing deformity 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 This was associated with the old humeral fracture back in 1994. Patient has good glenohumeral joint space and no significant proximal migration of the humeral head in relation to the glenoid ASSESSMENT: Impingement of right shoulder Right shoulder pain, unspecified chronicity Primary osteoarthritis of right shoulder PLAN: Continue your anti-inflammatory taking with food to avoid GI upset for reduction of the pain and would add cold pack to the shoulder for 20 minutes several times a day and before bedtime to help reduce inflammation. He will work on range of motion and home exercise program along with organized physical therapy 3 times a week for 4 weeks we will see him back in 6 weeks to note progressIf still having considerable discomfort we will offer cortisone injection into the subacromial space. May add Tylenol for breakthrough discomfort during the daytime. LEISA Dorsey documented in this encounter [facility] 05-25-2024 Instructions LEISA Dorsey - 05/25/2024 10:15 AM EST Continue your anti-inflammatory taking with food to avoid GI upset for reduction of the pain and would add cold pack to the shoulder for 20 minutes several times a day and before bedtime to help reduce inflammation. He will work on range of motion and home exercise program along with organized physical therapy 3 times a week for 4 weeks we will see him back in 6 weeks to note progressIf still having considerable discomfort we will offer cortisone injection into the subacromial space. May add Tylenol for breakthrough discomfort during the daytime. documented in this encounter [facility] 05-24-2024 Telephone encounter Note Called spoke to patient, made aware that the xray images have not been received as of yet. Patient will stop and get a copy of the xray to bring with him to his appt on Thursday. [facility] 05-24-2024 Miscellaneous Notes Called spoke to patient, made aware that the xray images have not been received as of yet. Patient will stop and get a copy of the xray to bring with him to his appt on Thursday. Jaye is calling Jodi Denney APRN.CNP today to report that [facility] is sending his Xray images for his appointment on Thursday. Jaye states that he wants to be sure the images are received prior to his appointment, and to please call him ahead of time if he needs to bring them on a disc. Jaye also wanted to make sure Jodi knows he had his MRI done today Patient has been identified by name and birthdate. Duration of symptoms: N/A Person calling: self Call patient at: on cell [phone] (home) [phone] (cell) Was an appointment scheduled: No Closing statement: Results or non-symptom based questions: Thank you for calling [facility], your call will be returned within the next business day. Ladi Turner documented in this encounter [facility] 05-24-2024 Telephone encounter Note Jaye is calling Jodi Denney APRN.CNP today to report that [facility] is sending his Xray images for his appointment on Thursday. Jaye states that he wants to be sure the images are received prior to his appointment, and to please call him ahead of time if he needs to bring them on a disc. Jaye also wanted to make sure Jodi knows he had his MRI done today Patient has been identified by name and birthdate. Duration of symptoms: N/A Person calling: self Call patient at: on cell [phone] (home) [phone] (cell) Was an appointment scheduled: No Closing statement: Results or non-symptom based questions: Thank you for calling [facility], your call will be returned within the next business day. Ladi Turner [facility] 05-24-2024 Note HNO ID: [id number] Author: JEMIMA PURDY APRN.CNP Service: ? Author Type: Nurse Practitioner Type: Progress Notes Filed: 05/24/2024 11:10 Note Text: Patient returned from MRI. VNS reset to pre-imaging settings with output current at 1.625 and magnet current at 1.875. Tolerated well. Jemima Purdy APRN.CNP [facility] 05-24-2024 History of Present illness Narrative Patient returned from MRI. VNS reset to pre-imaging settings with output current at 1.625 and magnet current at 1.875. Tolerated well. Jemima Purdy APRN.CNP documented in this encounter [facility] 05-24-2024 History of Present illness Narrative Radiology Service Progress Note PATIENT NAME: Jaye Harvey DATE OF SERVICE: May 24, 2024 TIME: 10:24 AM PATIENT IDENTITY VERIFICATION COMPLETED USING TWO (2) IDENTIFIERS: Name and Date of confirmed by patient verbally and Name and Date of confirmed by identification band. FALL SCREENING: Has the patient had 2 falls in the last year or 1 fall with injury or currently using an Ambulatory Assistive Device (Walker, Cane, Wheelchair, Crutches, etc.)? No PATIENT GENDER DATA: Male PATIENT RELEVANT IMPLANT DATA REVIEWED: Yes VNS LIVNA [id number] turned off before appointment 15min in 30 min window PATIENT PRESENTS WITH AN IMPLANTABLE OR ATTACHED GROUNDS MAINTENANCE WORKER: No RADIOLOGY DEPARTMENT: MR; Exam(s) Completed: Spine: Lumbar spine PERIPHERAL IV DATA: Not applicable SIGNED BY: JUNITO oGmez) May 24, 2024 10:24 AM documented in this encounter [facility] 05-24-2024 Note HNO ID: [id number] Author: SILVANA MOORE RT (R) Service: Radiology Author Type: Technologist Type: Progress Notes Filed: 05/24/2024 10:27 Note Text: Radiology Service Progress Note PATIENT NAME: Jaye Harvey DATE OF SERVICE: May 24, 2024 TIME: 10:24 AM PATIENT IDENTITY VERIFICATION COMPLETED USING TWO (2) IDENTIFIERS: Name and Date of confirmed by patient verbally and Name and Date of confirmed by identification band. FALL SCREENING: Has the patient had 2 falls in the last year or 1 fall with injury or currently using an Ambulatory Assistive Device (Walker, Cane, Wheelchair, Crutches, etc.)? No PATIENT GENDER DATA: Male PATIENT RELEVANT IMPLANT DATA REVIEWED: Yes VNS LIVNA [id number] turned off before appointment 15min in 30 min window PATIENT PRESENTS WITH AN IMPLANTABLE OR ATTACHED GROUNDS MAINTENANCE WORKER: No RADIOLOGY DEPARTMENT: MR; Exam(s) Completed: Spine: Lumbar spine PERIPHERAL IV DATA: Not applicable SIGNED BY: Silvana Moore, RT(R) May 24, 2024 10:24 AM [facility] 05-24-2024 Note HNO ID: [id number] Author: JEMIMA PURDY APRN.CERTIFIED SHORTHAND REPORTER Service: ? Author Type: Nurse Practitioner Type: Progress Notes Filed: 05/24/2024 11:10 Note Text: CC: VNS reprogramming prior to MRI lumbar spine HPI: This is a 43 year old male who presents to the outpatient clinic alone. He is scheduled for a lumbar MRI and presents for VNS shut off. Tolerating stimulation well. No complaints. Current Outpatient Medications Medication Sig rizatriptan (MAXALT BIRTH ATTENDANT) [address] 1 TABLET ON TONGUE AND ALLOW TO DISSOLVE NEEDED AT ONSET OF HEADACHE. MAY REPEAT AFTER 2 HOURS. DO NOT EXCEED 30MG PER DAY lurasidone (LATUDA) 80 mg tablet TAKE 1 TABLET BY MOUTH DAILY WITH DINNER *LOWER THE SEROQUEL TO 100 MG IN THE EVENING* lacosamide (VIMPAT) 100 mg tab Take 1 tablet by mouth two times a day for 180 days. lurasidone (LATUDA) 20 mg tablet Take 1 tablet by mouth daily with breakfast. AIMOVIG AUTOINJECTOR 140 mg/mL auto-injector INJECT 1ML SUBCUTANEOUSLY EVERY MONTH clonazePAM (KLONOPIN) 2 mg tablet Take 1 tablet by mouth three times a day for 180 days. cloNIDine HCl (CATAPRES) 0.1 mg tablet TAKE 1 TABLET BY MOUTH TWICE A DAY sertraline (ZOLOFT) 100 mg tablet take 3 tablets by mouth once daily QUEtiapine (SEROQUEL) 200 mg tablet take 1 tablet by mouth every night at bedtime simvastatin (ZOCOR) 20 mg tablet Take 20 [...] and PS 4-8cmh2O. His DME company is [employer] , new mask to fit patient preference, [...] (FLONASE) 50 mcg/actuation nasal spray Use 1 Furman in each nostril twice daily. albuterol HFA (PROVENTIL HFA, VENTOLIN HFA) 90 mcg/actuation inhaler Inhale 1-2 Puffs as instructed as needed for Wheezing/Shortness of Breath. No current facility-administered medications for this visit. ALLERGIES Allergen Reactions Keppra [Levetiracet* Other: See Comments Increases his ADHD Ketorolac Trometham* Unknown unknown Pristiq [Desvenlafa* Other: See Comments sz VNS Stimulation Interrogation VNS Information VNS Model Number SenTiva [id number] VNS Serial Number [id number] Date of Implantation August 31, 2023 Stimulation Parameters Present Changes Made Current (mA) 1.625 0.000 Frequency (Hz) 25 - Pulse Width (ms) 500 - Signal On-Time (s) 30 - Signal Off-Time (min) 0.8 - AutoStim Current (mA) - - AutoStim Pulse Width (ms) - - AutoStim Signal On-Time (s) - - Magnet Current (mA) 1.875 0.000 Magnet Pulse Width (ms) 500 - Magnet Signal On-Time (s) 60 - Duty Cycle 44% Comments: VNS is off for MRI. Tolerated well. To return for reprogramming after imaging Jemima Purdy APRN.[facility] 05-24-2024 History of Present illness Narrative CC: VNS reprogramming prior to MRI lumbar spine HPI: This is a 43 year old male who presents to the outpatient clinic alone. He is scheduled for a lumbar MRI and presents for VNS shut off. Tolerating stimulation well. No complaints. Current Outpatient Medications Medication Sig rizatriptan (MAXALT BIRTH ATTENDANT) [address] 1 TABLET ON TONGUE AND ALLOW TO DISSOLVE NEEDED AT ONSET OF HEADACHE. MAY REPEAT AFTER 2 HOURS. DO NOT EXCEED 30MG PER DAY lurasidone (LATUDA) 80 mg tablet TAKE 1 TABLET BY MOUTH DAILY WITH DINNER *LOWER THE SEROQUEL TO 100 MG IN THE EVENING* lacosamide (VIMPAT) 100 mg tab Take 1 tablet by mouth two times a day for 180 days. lurasidone (LATUDA) 20 mg tablet Take 1 tablet by mouth daily with breakfast. AIMOVIG AUTOINJECTOR 140 mg/mL auto-injector INJECT 1ML SUBCUTANEOUSLY EVERY MONTH clonazePAM (KLONOPIN) 2 mg tablet Take 1 tablet by mouth three times a day for 180 days. cloNIDine HCl (CATAPRES) 0.1 mg tablet TAKE 1 TABLET BY MOUTH TWICE A DAY sertraline (ZOLOFT) 100 mg tablet take 3 tablets by mouth once daily QUEtiapine (SEROQUEL) 200 mg tablet take 1 tablet by mouth every night at bedtime simvastatin (ZOCOR) 20 mg tablet Take 20 [...] and PS 4-8cmh2O. His DME company is [employer] , new mask to fit patient preference, [...] (FLONASE) 50 mcg/actuation nasal spray Use 1 Furman in each nostril twice daily. albuterol HFA (PROVENTIL HFA, VENTOLIN HFA) 90 mcg/actuation inhaler Inhale 1-2 Puffs as instructed as needed for Wheezing/Shortness of Breath. No current facility-administered medications for this visit. ALLERGIES Allergen Reactions Keppra [Levetiracet* Other: See Comments Increases his ADHD Ketorolac Trometham* Unknown unknown Pristiq [Desvenlafa* Other: See Comments sz VNS Stimulation Interrogation VNS Information VNS Model Number SenTiva [id number] VNS Serial Number [id number] Date of Implantation August 31, 2023 Stimulation Parameters Present Changes Made Current (mA) 1.625 0.000 Frequency (Hz) 25 - Pulse Width (ms) 500 - Signal On-Time (s) 30 - Signal Off-Time (min) 0.8 - AutoStim Current (mA) - - AutoStim Pulse Width (ms) - - AutoStim Signal On-Time (s) - - Magnet Current (mA) 1.875 0.000 Magnet Pulse Width (ms) 500 - Magnet Signal On-Time (s) 60 - Duty Cycle 44% Comments: VNS is off for MRI. Tolerated well. To return for reprogramming after imaging Jemima Purdy APRN.[facility] documented in this encounter [facility] 05-23-2024 History of Present illness Narrative Associated Order(s): L Inj/Asp: bilateral knee Post-Procedure Diagnose(s): Osteoarthritis of patellofemoral joints, bilateral L Inj/Asp: bilateral knee on 05/23/2024 1:23 PM Indications: diagnostic evaluation Details: 22 G needle Medications (Right): 12 mg betamethasone acetate-betamethasone sodium phosphate 6 (3-3) MG/ML Medications (Left): 12 mg betamethasone acetate-betamethasone sodium phosphate 6 (3-3) MG/ML Outcome: tolerated well, no immediate complications Consent was given by the patient. Images from the original note were not included. Subjective Patient ID: Jaye Harvey is a 43 y.o. male. Chief Complaint: Pain of the Right Knee and Pain of the Left Knee Last Surgery: No surgery found Last Surgery Date: No surgery found HPI Kaiden comes in it has been over 6 months since he had his last cortisone in both knees he does seem to get benefit with this and would like to repeat the injections he denies any specific new injury. We are actually going to see him for a new problem he has been having pain in his right shoulder particularly with over head activity states that he broke his humerus when he was a kid back in 1995. He has a appointment this Thursday for that evaluation. Objective Ortho Exam Patient is still having some patellofemoral crepitus from the 20 to 0 degree range with extension. Mild joint effusion bilaterally with only minimal Rouse cyst palpated to both knees. Mediolateral collateral ligaments are stable no prepatellar swelling redness or rash noted. No associated pain with Gerald's. Anterior posterior drawer testing is stable. Image Results: XR knee 3 views left Imaging Result: Bilateral standing PA, bilateral sunrise, and lateral of the affected knee were imaged today in the office. Patient shows no significant deterioration from previous imaging with mostly superior patellar spurring. No evidence of bony tumor acute fracture seen XR knee 3 views right Imaging Result: Bilateral standing PA, bilateral sunrise, and lateral of the affected knee were imaged today in the office. Patient shows no significant deterioration from previous imaging with mostly superior patellar spurring. No evidence of bony tumor acute fracture seen Assessment/Plan Encounter Diagnoses: Osteoarthritis of patellofemoral joints, bilateral Orders Placed This Encounter L Inj/Asp: bilateral knee XR knee 3 views right XR knee 3 views left Follow up if symptoms worsen or fail to improve. Follow up if symptoms worsen or fail to improve.Would expect improvement with cortisone after about48 hours and sometimes up to a week to get the complete results at your expecting. May receive cortisone per knee 3 times a year essentially every 4 months. May use cold pack to the knees for 20 minutes several times a day and continue your glucosamine chondroitin for joint health. documented in this encounter [facility] 05-23-2024 Instructions LEISA Dorsey - 05/23/2024 1:15 PM EST Follow up if symptoms worsen or fail to improve.Would expect improvement with cortisone after about48 hours and sometimes up to a week to get the complete results at your expecting. May receive cortisone per knee 3 times a year essentially every 4 months. May use cold pack to the knees for 20 minutes several times a day and continue your glucosamine chondroitin for joint health. documented in this encounter [facility] 05-19-2024 Telephone encounter Note The following approved medication requests have been transmitted electronically. Requested Prescriptions Signed Prescriptions Disp Refills rizatriptan (MAXALT BIRTH ATTENDANT) 10 mg disintegrating tablet 9 tablet 1 Sig: PLACE 1 TABLET ON TONGUE AND ALLOW TO DISSOLVE NEEDED AT ONSET OF HEADACHE. MAY REPEAT AFTER 2 HOURS. DO NOT EXCEED 30MG PER DAY Authorizing Provider: DUTCH LOVE APRN.CNP [facility] 05-19-2024 Miscellaneous Notes The following approved medication requests have been transmitted electronically. Requested Prescriptions Signed Prescriptions Disp Refills rizatriptan (MAXALT BIRTH ATTENDANT) 10 mg disintegrating tablet 9 tablet 1 Sig: PLACE 1 TABLET ON TONGUE AND ALLOW TO DISSOLVE NEEDED AT ONSET OF HEADACHE. MAY REPEAT AFTER 2 HOURS. DO NOT EXCEED 30MG PER DAY Authorizing Provider: DUTCH LOVE APRN.CNP Prescription Refill: Requested by: pharmacy Please E-Scribe Caller Contact Number: Pharmacy Name: [facility] Pharmacy Number: [phone] Generic/ brand: generic 30 or 90 day supply requested: 30 Last appointment: 11/03/23 Next Appointment: none Patient of Dr. Maury Harvey [id number] [address] [id number] documented in this encounter [facility] 05-19-2024 Telephone encounter Note Prescription Refill: Requested by: pharmacy Please E-Scribe Caller Contact Number: Pharmacy Name: [facility] Pharmacy Number: [phone] Generic/ brand: generic 30 or 90 day supply requested: 30 Last appointment: 11/03/23 Next Appointment: none Patient of Dr. Maury Harvey [id number] [address] [id number] [facility] 04-18-2024 Note HNO ID: [id number] Author: SOBEIDA GALVAN MD Service: ? Author Type: Physician Type: Progress Notes Filed: 04/18/2024 13:11 Note Text: Called patient. Is out sick. Will reschedule [facility] 04-01-2024 Telephone encounter Note Marylu, We approved Jaye to get his MRI but unfortunately, due to the restrictions of the MRI from the device, we may not get the whole lumbar spine. Obviously every patient is different but there is a chance we could get some cut off at L-1, but we will not know until we scan him. If you have any questions please let us know. Thanks, Tim Finch RT(R)(CT)(MR), MRSO [facility] 04-01-2024 Miscellaneous Notes Marylu, We approved Jaye to get his MRI but unfortunately, due to the restrictions of the MRI from the device, we may not get the whole lumbar spine. Obviously every patient is different but there is a chance we could get some cut off at L-1, but we will not know until we scan him. If you have any questions please let us know. Thanks, Tim Finch RT(R)(CT)(MR), MRSO documented in this encounter [facility] 03-30-2024 Instructions Hayder Ding DO - 03/30/2024 5:13 PM EST Hi Jaye Carmen Harvey, You were at the [facility] today for an appointment. The following describes your care plan and instructions: - Follow up after MRI Please call the clinic with any questions or issues. Thank you for allowing us to participate in your care. [facility] March 30, 2024 documented in this encounter [facility] 03-30-2024 History of Present illness Narrative [facility] Initial Evaluation March 30, 2024 This appointment was requested by Dr. Adry Cox, Sobeida Blevins MD , for my medical opinion regarding the evaluation and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 Narrative* Problem Noted Date Diagnosed Date Resolved Date Acute respiratory failure 04/07/2016 documented as of this encounter (statuses as of 12/12/2022) [address]21-2016 History of Past illness Narrative* Problem Noted Date Diagnosed Date Resolved Date Acute respiratory failure 04/07/2016 documented as of this encounter (statuses as of 12/13/2022) [address]21-2016 History of Past illness Narrative* Problem Noted Date Diagnosed Date Resolved Date Acute respiratory failure 04/07/2016 documented as of this encounter (statuses as of 12/15/2022) [address]21-2016 History of Past illness Narrative* Problem Noted Date Diagnosed Date Resolved Date Acute respiratory failure 04/07/2016 documented as of this encounter (statuses as of 12/17/2022) [address]-2016 History of Past illness Narrative* Problem Noted Date Diagnosed Date Resolved Date Acute respiratory failure 04/07/2016 documented as of this encounter (statuses as of 12/18/2022) [address]-2016 History of Past illness Narrative* Problem Noted Date Diagnosed Date Resolved Date Acute respiratory failure 04/07/2016 documented as of this encounter (statuses as of 12/23/2022) [address]21-2016 History of Past illness Narrative* Problem Noted Date Diagnosed Date Resolved Date Acute respiratory failure 04/07/2016 documented as of this encounter (statuses as of 01/29/2023) [address]21-2016 History of Past illness Narrative* Problem Noted Date Diagnosed Date Resolved Date Acute respiratory failure 04/07/2016 documented as of this encounter (statuses as of 02/21/2023) [address]21-2016 History of Past illness Narrative* Problem Noted Date Diagnosed Date Resolved Date Acute respiratory failure 04/07/2016 documented as of this encounter (statuses as of 02/27/2023) [address]21-2016 History of Past illness Narrative* Problem Noted Date Diagnosed Date Resolved Date Acute respiratory failure 04/07/2016 documented as of this encounter (statuses as of 03/27/2023) [address]21-2016 History of Past illness Narrative* Problem Noted Date Diagnosed Date Resolved Date Acute respiratory failure 04/07/2016 documented as of this encounter (statuses as of 04/08/2023) [address]21-2016 History of Past illness Narrative* Problem Noted Date Diagnosed Date Resolved Date Acute respiratory failure 04/07/2016 documented as of this encounter (statuses as of 06/28/2023) [address]21-2016 History of Past illness Narrative* Problem Noted Date Diagnosed Date Resolved Date Acute respiratory failure 04/07/2016 documented as of this encounter (statuses as of 06/29/2023) [address]-2016 History of Past illness Narrative* Problem Noted Date Diagnosed Date Resolved Date Acute respiratory failure 04/07/2016 documented as of this encounter (statuses as of 06/30/2023) [address]-2016 History of Past illness Narrative* Problem Noted Date Diagnosed Date Resolved Date Acute respiratory failure 04/07/2016 documented as of this encounter (statuses as of 07/05/2023) [address]21-2016 History of Past illness Narrative* Problem Noted Date Diagnosed Date Resolved Date Acute respiratory failure 04/07/2016 documented as of this encounter (statuses as of 07/06/2023) [address]21-2016 History of Past illness Narrative* Problem Noted Date Diagnosed Date Resolved Date Acute respiratory failure 04/07/2016 documented as of this encounter (statuses as of 07/07/2023) [address]21-2016 History of Past illness Narrative* Problem Noted Date Diagnosed Date Resolved Date Acute respiratory failure 04/07/2016 documented as of this encounter (statuses as of 07/11/2023) [address]21-2016 History of Past illness Narrative* Problem Noted Date Diagnosed Date Resolved Date Acute respiratory failure 04/07/2016 documented as of this encounter (statuses as of 07/12/2023) [address]21-2016 History of Past illness Narrative* Problem Noted Date Diagnosed Date Resolved Date Acute respiratory failure 04/07/2016 documented as of this encounter (statuses as of 07/13/2023) [address]21-2016 History of Past illness Narrative* Problem Noted Date Diagnosed Date Resolved Date Acute respiratory failure 04/07/2016 documented as of this encounter (statuses as of 07/13/2023) [address]21-2016 History of Past illness Narrative* Problem Noted Date Diagnosed Date Resolved Date Acute respiratory failure 04/07/2016 documented as of this encounter (statuses as of 07/16/2023) [address]21-2016 History of Past illness Narrative* Problem Noted Date Diagnosed Date Resolved Date Acute respiratory failure 04/07/2016 documented as of this encounter (statuses as of 07/20/2023) [address]21-2016 History of Past illness Narrative* Problem Noted Date Diagnosed Date Resolved Date Acute respiratory failure 04/07/2016 documented as of this encounter (statuses as of 07/21/2023) [address]-2016 History of Past illness Narrative* Problem Noted Date Diagnosed Date Resolved Date Acute respiratory failure 04/07/2016 documented as of this encounter (statuses as of 07/25/2023) [address]-2016 History of Past illness Narrative* Problem Noted Date Diagnosed Date Resolved Date Acute respiratory failure 04/07/2016 documented as of this encounter (statuses as of 07/26/2023) [address]-2016 History of Past illness Narrative* Problem Noted Date Diagnosed Date Resolved Date Acute respiratory failure 04/07/2016 documented as of this encounter (statuses as of 07/28/2023) [address]21-2016 History of Past illness Narrative* Problem Noted Date Diagnosed Date Resolved Date Acute respiratory failure 04/07/2016 documented as of this encounter (statuses as of 07/28/2023) [address]2016 History of Past illness Narrative* Problem Noted Date Diagnosed Date Resolved Date Acute respiratory failure 04/07/2016 documented as of this encounter (statuses as of 07/29/2023) [address]2016 History of Past illness Narrative* Problem Noted Date Diagnosed Date Resolved Date Acute respiratory failure 04/07/2016 documented as of this encounter (statuses as of 08/01/2023) [address]21-2016 History of Past illness Narrative* Problem Noted Date Diagnosed Date Resolved Date Acute respiratory failure 04/07/2016 documented as of this encounter (statuses as of 08/02/2023) [address]21-2016 History of Past illness Narrative* Problem Noted Date Diagnosed Date Resolved Date Acute respiratory failure 04/07/2016 documented as of this encounter (statuses as of 08/03/2023) [address]21-2016 History of Past illness Narrative* Problem Noted Date Diagnosed Date Resolved Date Acute respiratory failure 04/07/2016 documented as of this encounter (statuses as of 08/03/2023) [address]21-2016 History of Past illness Narrative* Problem Noted Date Diagnosed Date Resolved Date Acute respiratory failure 04/07/2016 documented as of this encounter (statuses as of 08/04/2023) [address]21-2016 History of Past illness Narrative* Problem Noted Date Diagnosed Date Resolved Date Acute respiratory failure 04/07/2016 documented as of this encounter (statuses as of 08/05/2023) [address]21-2016 History of Past illness Narrative* Problem Noted Date Diagnosed Date Resolved Date Acute respiratory failure 04/07/2016 documented as of this encounter (statuses as of 08/05/2023) [address]21-2016 History of Past illness Narrative* Problem Noted Date Diagnosed Date Resolved Date Acute respiratory failure 04/07/2016 documented as of this encounter (statuses as of 08/08/2023) [address]21-2016 History of Past illness Narrative* Problem Noted Date Diagnosed Date Resolved Date Acute respiratory failure 04/07/2016 documented as of this encounter (statuses as of 08/09/2023) [address]21-2016 History of Past illness Narrative* Problem Noted Date Diagnosed Date Resolved Date Acute respiratory failure 04/07/2016 documented as of this encounter (statuses as of 08/10/2023) [address]21-2016 History of Past illness Narrative* Problem Noted Date Diagnosed Date Resolved Date Acute respiratory failure 04/07/2016 documented as of this encounter (statuses as of 08/10/2023) [address]21-2016 History of Past illness Narrative* Problem Noted Date Diagnosed Date Resolved Date Acute respiratory failure 04/07/2016 documented as of this encounter (statuses as of 08/11/2023) [address]21-2016 History of Past illness Narrative* Problem Noted Date Diagnosed Date Resolved Date Acute respiratory failure 04/07/2016 documented as of this encounter (statuses as of 08/20/2023) [address]21-2016 History of Past illness Narrative* Problem Noted Date Diagnosed Date Resolved Date Acute respiratory failure 04/07/2016 documented as of this encounter (statuses as of 08/27/2023) [address]21-2016 History of Past illness Narrative* Problem Noted Date Diagnosed Date Resolved Date Acute respiratory failure 04/07/2016 documented as of this encounter (statuses as of 08/27/2023) [address]21-2016 History of Past illness Narrative* Problem Noted Date Diagnosed Date Resolved Date Acute respiratory failure 04/07/2016 documented as of this encounter (statuses as of 08/27/2023) [address]21-2016 History of Past illness Narrative* Problem Noted Date Diagnosed Date Resolved Date Acute respiratory failure 04/07/2016 documented as of this encounter (statuses as of 08/27/2023) [facility] September 25, 2023 2:49pm Note Date/Time September 25, 2023 2:49p m [facility] [address] [place] [address] Psychiatry Consult Note Signed Patient: Jaye Harvey MR#: [id number] : 1980 Acct:[id number] Age/Sex: 42 / M Adm Date: 4 Loc: Room: [address] [place] [address] Type : ADM IN Attending Dr: Mary Calhoun MD Copies to: MD Uriel Robles MD Ruta Semaskiene, MD~ HPI Consult Date: 09/25/23 Requesting Physician: Mary Calhoun MD Primary Care Provider: Uriel Nunez MD Consult Narrative Reason for consult: Drug overdose and psychiatric evaluation HPI: Mr. Harvey is a 42 year old male with [...] follow with neurology, psychiatry, psychology with the [facility]. He has a vagal nerve stimulation device for his seizures. He also does see [facility] counseling 3 times a week. Upon [...] He follows up with [facility] at the [facility]. He said he was previously hospitalized at and a psychiatrist prescribed for him Pristiq back then whichworsened his seizures. 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 Review of systems: Constitutional: Denies chills [...] homicidality, reported suicidality Insight: fair Judgment: fair [facility] Medical History (Updated 09/25/23 @ 11:58 by Scott Monterroso MD) Suicide attempt about 10 attempts, first attempt at age 16 Bipolar disorder Neurostimulator device in situ in L chest, for seizures Depression Anxiety Sleep apnea non-compliant w/ cpap Seizure Hypertension GI bleed Surgical History (Updated 09/24/23 @ 00:52 by Arabella Ferraro APRN) H/O arthroscopic knee surgery History of appendectomy Family History (Updated 09/24/23 @ 00:52 by Arabella Ferraro APRN) Father Myocardial infarction Social History Smoking Status: Never smoker Substance Use Type: None Social History Comments: lives in a [facility] Meds Medications and Allergies Allergies levetiracetam Allergy [...] Appearance Clear Urine pH 6.5 Ur Specific Barnard 1.009 Urine Protein Negative Urine Glucose (UA) [...] Color Urine Appearance Urine pH Ur Specific Barnard Urine Protein Urine Glucose (UA) Urine Ketones [...] p.o. nightly Attempting to obtain records from [facility] neurology and psychiatry on patient's past [...] provided. Documented By: Taiwo Trujillo MD [id number] Signed By: <Electronically signed by Taiwo Trujillo MD> 09/25/23 4698 [facility] Work Phone: Discharge summary Author Mary Calhoun [facility] September 26, 2023 10:49am Note Date/Time September 26, 2023 10:49 am [facility] [address] [place] [address] Discharge Summary Signed Patient: Jaye Harvey MR#: [id number] : 1980 Acct:[id number] Age/Sex: 42 / M Adm Date: 4 Loc: Room: [address] [place] [address]: Mary Calhoun MD Copies to: MD Mary Keating MD~ Providers Date of Discharge: 09/26/23 Discharging Provider: Mary Calhoun Primary Care Provider: Uriel Nunez Consults: 09/23/23 23:52 Consult to Pulmonology Routine [...] encephalopathy and hypoxia, which resolved, transferred to 1 S. Hypoxia requiring oxygen supplementation, suspect due to atelectasis without anyfocal signs of infection, resolved, discharged on room air Seizure disorder, continued with antiseizure medication, status post recent vagal nerve stimulator implantation at [facility] in August 2023 Obstructive sleep apnea on BiPAP at home, not very compliant, recommended to bring BiPAP machine from home and resume it Summary Hospital Course Hospital course: 42 years old male with a history of epilepsy, status post recent vagal nerve stimulator implantation at [facility], presented with suicidal attempt with clonazepam and lurasidone. Patient was quite lethargic and was admitted toICU with suicidal precaution. He was treated conservatively without any significant complications. He was eval to by psychiatrist and recommended to betransferred to 1 S. unit. Initially patient did have some hypoxia, [...] to be transferred to psych unit at [facility]. We got in touch with [facility], however they do not have beds, so they refused to take any information regarding the patient. Eventually patient was agreeable to be transferred to [facility] for further evaluation and treatment. Physical exam: [...] Laboratory work up and Imaging studies reviewed glass sander belt - reviewed, no significant arrhythmias The patient CARE and further plan was discussed with the patient. All questionsanswered. Patient expressed understanding and was discharged to [facility] in hemodynamically stable condition. The patient was given written and verbal instructions. Time Spent with Patient Time spent providing/coordinating discharge services (# min): 25 Discharge Plan Discharge Plan Patient Disposition: [facility] [facility] Activity: Other Comment: Suicide/seizure precautions [...] your Primary Care Provider after discharge from . ) Exam Physical Exam Vital Signs: Temp [...] % (Auto) 62.7, Lymph % (Auto) 24.5, Berrien % (Auto) 8.8, Eos % (Auto) 3.2, Baso % (Auto) 0.8, Nucleat RBC Rel Count 0.0, Neut # (Auto) 6.3, Lymph # (Auto) 2.5, Berrien # (Auto) 0.9 H, Eos # (Auto) 0.3, Baso # (Auto) 0.1, PHA Creatinine Clear 175.50, Sodium 136, Potassium 4.1, Chloride 103, Carbon Dioxide 27.1, Anion Gap 10.0, BUN 9, Creatinine 0.67 L, Est GFR (CKD-EPI) > 60.0, Glucose 109 H, Calcium 9.2 Documented By: Mary Calhoun MD 09/26/23 1044 Signed By: <Electronically signed by Mary Calhoun MD> 09/26/23 1049 [facility] Work Phone: Evaluation + Plan note Future Appointments Appointment Date:09/29/2022 11:15:00 AM Scheduled Provider: Location:[facility] [place] [facility] note Future Appointments Appointment Date:05/13/2023 09:00:00 AM Scheduled Provider:Nahed Doran MD Location:[facility] Appointment Type:URO Office Visit Diagnostic Tests Pending * PTH Intact 03/04/23 * Uric Acid 03/04/[address] [facility] evaluation + Plan note Future Appointments Appointment Date:05/13/2023 09:00:00 AM Scheduled Provider:Nahed Doran MD Location:[facility] Appointment Type:URO Office Visit Diagnostic Tests Pending * Calculi Analysis Urinary 03/04/23 [facility] note* Diagnosis Partial epilepsy with impairment of consciousness, 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) epilepsy and epileptic syndromes with complex partial seizures, with intractable epilepsy Recurrent major depression in partial remission (HCC) Major depressive disorder, recurrent episode, in partial or unspecified remission documented in this encounter [facility] note* Diagnosis Bipolar 2 disorder (HCC) Other bipolar disorders documented [facility] [place] [facility]* Diagnosis Bipolar II disorder (HCC)- Primary Other bipolar disorders [facility] [place] [facility]* Diagnosis 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- Primary Other postprocedural status documented [facility] [place] [facility]* Diagnosis 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- Primary Other postprocedural status [facility] [place] [facility]* Diagnosis 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 Other postprocedural status [facility] 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- Primary Other postprocedural status Tenderness of neck [facility]* Diagnosis Chronic nonintractable headache, unspecified [...] [facility] Work Phone: Evaluation note* Diagnosis Chronic migraine without aura without status migrainosus, not intractable Chronic migraine without aura, without mention of intractable migraine without mention of status migrainosus [facility] Diagnosis Bipolar II disorder (HCC)- Primary Other bipolar disorders [facility]* Diagnosis Migraine without aura, intractable, with [...] of status migrainosus [facility] Diagnosis Chronic migraine without aura [...] of status migrainosus [facility] Diagnosis Partial epilepsy with impairment of consciousness, intractable (HCC) Localization-related (focal) (partial) epilepsy and epileptic syndromes with complex partial seizures, with intractable epilepsy [facility] [place] [facility]* Diagnosis Preoperative testing- Primary Preoperative examination, unspecified Partial epilepsy with impairment of consciousness, intractable (HCC) Localization-related (focal) (partial) epilepsy and epileptic syndromes with complex partial seizures, with intractable epilepsy Encounter for therapeutic drug level monitoring Encounter for therapeutic drug monitoring [facility] [place] [facility]* Diagnosis Pre-op evaluation- Primary Preoperative examination, [...] with intractable epilepsy [facility] [place] [facility]* Diagnosis Focal epilepsy with impairment of consciousness, 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) 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, with intractable epilepsy Partial epilepsy with impairment of consciousness, intractable (HCC) Localization-related (focal) (partial) epilepsy and epileptic syndromes with complex partial seizures, with intractable epilepsy [facility] [place] [facility]* Diagnosis Partial epilepsy with impairment of consciousness, intractable (HCC) Localization-related (focal) (partial) epilepsy and epileptic syndromes with complex partial seizures, with intractable epilepsy Partial epilepsy with impairment of consciousness, intractable (HCC) Localization-related (focal) (partial) epilepsy and epileptic syndromes with complex partial seizures, with intractable epilepsy [facility] [place] [facility]* Diagnosis Preoperative testing Preoperative examination, unspecified Partial epilepsy with impairment of consciousness, intractable (HCC) Localization-related (focal) (partial) epilepsy and epileptic syndromes with complex partial seizures, with intractable epilepsy documented [facility] [place] [facility]* Diagnosis Onset Date Resolution Status Overdose acute Suicide attempt acute [facility] Work Phone: Evaluation note* Diagnosis Onset Date Resolution Status Hypoxia acute HIMA (obstructive sleep apnea) acute Overdose acute Seizure disorder acute Suicide attempt acute [facility] Work Phone: [facility] note* Diagnosis Partial epilepsy with impairment of consciousness, intractable (HCC) Localization-related (focal) (partial) epilepsy and epileptic syndromes with complex partial seizures, with intractable epilepsy [facility] [place] [facility]* Diagnosis Chronic migraine without aura without status migrainosus, not intractable Chronic migraine without aura, without mention of intractable migraine without mention of status migrainosus documented [facility] [place] [facility]* Diagnosis 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- Primary Other postprocedural status Partial epilepsy with impairment of consciousness, intractable (HCC) Localization-related (focal) (partial) epilepsy and epileptic syndromes with complex partial seizures, with intractable epilepsy [facility] [place] [facility]* Diagnosis Partial epilepsy with impairment of consciousness, 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) epilepsy and epileptic syndromes with complex partial seizures, with intractable epilepsy [facility] [place] [facility]* Diagnosis Pre-op evaluation- Primary Preoperative examination, [...] with intractable epilepsy [facility] [place] [facility]* Diagnosis Pre-op evaluation- Primary Preoperative examination, [...] of status migrainosus documented [facility] [place] [facility]* Diagnosis Pre-op evaluation- Primary Preoperative examination, [...] of status migrainosus documented [facility] this [facility] [place] [facility]* Diagnosis Low back pain, unspecified back pain laterality, unspecified chronicity, unspecified whether sciatica present- Primary Pain in thoracic spine Other chronic pain [facility] [place] [facility]* Diagnosis Pre-op evaluation- Primary Preoperative examination, [...] of status migrainosus documented [facility] this [facility] [place] [facility]* Diagnosis Pre-op evaluation- Primary Preoperative examination, [...] intractable epilepsy Depression with anxiety Dysthymic disorder Radiculopathy, lumbosacral region- Primary Thoracic or lumbosacral neuritis or radiculitis, unspecified 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 Spinal stenosis of lumbar region without neurogenic claudication Spinal stenosis, lumbar region, without neurogenic claudication documented [facility] [place] [facility]* Diagnosis Pre-op evaluation- Primary Preoperative examination, [...] of status migrainosus documented [facility] [place] [facility]* Diagnosis Osteoarthritis of patellofemoral joints, bilateral- Primary [facility] [place] [facility]* Diagnosis Pre-op evaluation- Primary Preoperative examination, [...] with complex partial seizures, with intractable epilepsy 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 Other postprocedural status documented in this encounter [facility] [place] [facility]* Diagnosis Pre-op evaluation- Primary Preoperative examination, [...] with complex partial seizures, with intractable epilepsy 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 Other postprocedural status documented in this encounter [facility] [place] [facility]* Diagnosis Pre-op evaluation- Primary Preoperative examination, [...] intractable epilepsy Depression with anxiety Dysthymic disorder Spinal stenosis of lumbar region without neurogenic claudication Spinal stenosis, lumbar region, without neurogenic claudication documented in this encounter [facility] [place] [facility]* Diagnosis Impingement of right shoulder- Primary Right shoulder pain, unspecified chronicity Primary osteoarthritis of right shoulder [facility] [place] [facility]* Diagnosis Pre-op evaluation- Primary Preoperative examination, [...] intractable epilepsy Depression with anxiety Dysthymic disorder Neck pain Cervicalgia documented [facility] [place] [facility]* Diagnosis Pre-op evaluation- Primary Preoperative examination, [...] intractable epilepsy Depression with anxiety Dysthymic disorder Neck pain- Primary Cervicalgia Lumbar spondylolysis Acquired spondylolisthesis Neck pain Cervicalgia documented in [facility] [place] [facility]* Diagnosis Chronic thoracic spine pain- Primary Acute exacerbation of chronic low back pain Chronic bilateral low back pain, unspecified whether sciatica present Chronic thoracic spine pain [facility] Diagnosis Pre-op evaluation- Primary Preoperative examination, [...] with intractable epilepsy [facility] [place] [facility]* Diagnosis Pre-op evaluation- Primary Preoperative examination, [...] intractable epilepsy Depression with anxiety Dysthymic disorder Lumbosacral spondylosis without myelopathy- Primary Neck pain Cervicalgia Degeneration of intervertebral disc of lumbar region with discogenic back pain documented [facility] [place] [facility]* Diagnosis Pre-op evaluation- Primary Preoperative examination, [...] intractable epilepsy Depression with anxiety Dysthymic disorder Lumbosacral spondylosis without myelopathy- Primary Degeneration of intervertebral disc of lumbar region with discogenic back pain Lumbosacral spondylosis without myelopathy Degeneration of intervertebral disc of lumbar region with discogenic back pain documented [facility] [place] [facility]* Diagnosis Pre-op evaluation- Primary Preoperative examination, [...] of status migrainosus documented [facility] [place] [facility]* Diagnosis Pre-op evaluation- Primary Preoperative examination, [...] intractable epilepsy Depression with anxiety Dysthymic disorder Lumbosacral spondylosis without myelopathy- Primary Degeneration of intervertebral disc of lumbar region with discogenic back pain documented [facility] [place] [facility]* Diagnosis Pre-op evaluation- Primary Preoperative examination, [...] intractable epilepsy Depression with anxiety Dysthymic disorder Lumbosacral spondylosis without myelopathy- Primary Degeneration of intervertebral disc of lumbar region with discogenic back pain documented [facility] [place] [facility]* Diagnosis Pre-op evaluation- Primary Preoperative examination, [...] with complex partial seizures, with intractable epilepsy Lumbosacral spondylosis without myelopathy Degeneration of intervertebral disc of lumbar region with discogenic back pain documented in this encounter [facility] course Narrative No data available for this section [facility] No data available for this section [facility]Not on filedocumented in this encounter [facility] filedocumented in this [facility] No data available for this section [facility] Author Reginald Tang [facility] September 24, 2023 9:15am Note Date/Time September 24, 2023 9:15am [facility] [address] [place] [address] Progress Note Signed Patient: Jaye Harvey MR#: [id number] : 1980 Acct:[id number] Age/Sex: 42 / M Adm Date: 4 Loc: Room: [address] [place] [address] Type: ADM IN Attending Dr: Mary Calhoun [...] the patient. Documented By: Reginald Tang MD [id number] Signed By: <Electronically signed by MD Reginald Tang> 09/24/23914 [facility] Work Phone: Progress note Author Mary Calhoun [facility] September 24, 2023 12:23pm Note Date/Time September 24, 2023 12:23p m [facility] [address] [place], [place] [id number] Hospitalist Progress Note Signed Patient: Jaye Harvey MR#: [id number] : 1980 Acct:[id number] Age/Sex: 42 / M Adm Date: 4 Loc: 4C Room: [address] [place] [address] Type: ADM IN Attending Dr: Mary Calhoun [...] Lactated Ringers IV 09/25/23 02:24 150 mls/hr .[id number] RUPERTO Administration Prochlorperazine Edisylate 10 mg 09/23/23 [...] code Documented By: Mary Calhoun MD 09/24/23 122 Signed By: <Electronically signed by Mary Calhoun MD> 09/24/23 1223 [facility] Work Phone: Progress note Author Mary Calhoun [facility] September 25, 2023 10:06am Note Date/Time September 25, 2023 10:02 am [facility] [address] [place] [address] Hospitalist Progress Note Signed Patient: Jaye aHrvey MR#: [id number] : 1980 Acct:[id number] Age/Sex: 42 / M Adm Date: 4 Loc: Room: [address] [place] [address] Type: ADM IN Attending Dr: Mary Calhoun [...] precautions, status post vagal nerve stimulator placedat [facility] on August 31, 2023, we will restart his seizure medications Bipolar disorder DVT PPx-SCDs, Heparin CODE STATUS-full code Documented By: Mary Calhoun MD 09/25/23 1001 Signed By: <Electronically signed by Mary Calhoun MD> 09/25/23 1006 [facility] Work Phone: Progress note Author Scott Del Rosariodad [facility] September 25, 2023 12:09pm Note Date/Time September 25, 2023 12:00 pm [facility] [address] [place], [place] [id number] Pulmonology Progress Note Signed Patient: Jaye Harvey MR#: [id number] : 1980 Acct:[id number] Age/Sex: 42 / M Adm Date: 4 Loc: Room: [address] [place] [address] Type: ADM IN Attending Dr: Mary Calhoun [...] 09/25/23 11:00 09/25/23 11:00 09/25/23 11:00 09/25/23 11:09/25/23 11:00 Narrative: CONST- Appears well -developed and [...] <Electronically signed by Scott Monterroso MD> 09/25/23 1202 [facility] Work Phone: [facility] for referral (narrative)* Diagnostic Procedure Only (Routine) - Closed Specialty Diagnoses / Procedures Referred By Contac t Referred To Contact XR IMAGING Diagnoses 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 Procedures XR NECK SOFT TISSUE 2V AP/LAT RADIOLOGIC EXAMINATION NECK SOFT TISSUE Neur Epilepsy Main [address] [place] [address] Xr Imaging Referral ID Status Reason Start Date Expiration Date V isits Requested Visits Authorized [id number] Closed Auto-Generate d Referral 01/06/2022 02/05/2023 1 1 [facility] for referral (narrative)* Diagnostic Procedure Only (Routine) - Closed Specialty Diagnoses / Procedures Referred By Contac t Referred To Contact XR IMAGING Diagnoses 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 Procedures XR NECK SOFT TISSUE 2V AP/LAT RADIOLOGIC EXAMINATION NECK SOFT TISSUE Neur Epilepsy Main [address] [place] [address] Xr Imaging Referral ID Status Reason Start Date Expiration Date V isits Requested Visits Authorized [id number] Closed Auto-Generate d Referral 01/06/2022 02/05/2023 1 1 [facility] for referral (narrative)* Diagnostic Procedure Only (Routine) - Pending Review Specialty Diagnoses / Procedures Referred By Contac t Referred To Contact XR IMAGING Diagnoses Preoperative testing Procedures XR NECK SOFT TISSUE 2V AP/LAT RADIOLOGIC EXAMINATION NECK SOFT TISSUE Aida Ervin PA-C [address] [place] [id number] Xr Imaging [place] [address] Referral ID Status Reason Start Date Expiration Date Visits Requested Visits Authorized [id number] Pending Review Auto-Generat ed Referral 08/05/2023 09/03/2024 1 1 * Consult, Test, Treat (Routine) - Authorized Specialty Diagnoses / Procedures Referred By Jaiden small Referred To Contact Diagnoses Preoperative testing Partial epilepsy with impairment of consciousness, intractable (HCC) Procedures REFER TO PACC - PRE ANESTHESIA CONSULTATION CLINIC OFFICE[facility] 60 MINUTES Aida Ervin PA-C [address] [place] [phone] Referral ID Status Reason Start Date Expiration Date Visits Requested Visits Authorized [id number] Authorized PCP Requested Referral 08/05/2023 08/04/2024 1 1 [facility] for referral (narrative)* Outpatient Procedure (Routine) - Closed Specialty Diagnoses / Procedures Referred By Aleksandraac t Referred To Contact [facility] Diagnoses Pre-op evaluation Procedures ECG COMPLETE ECG ROUTINE ECG W/LEAST 12 LDS W/I&R Cici Nayak PA-C [address] [address] [facility] [place] [address] [place] [address] Referral ID Status Reason Start Date Expiration Date V isits Requested Visits Authorized [id number] Closed Auto-Generate d Referral 08/26/2023 08/25/2024 1 1 [facility] for referral (narrative)* Diagnostic Procedure Only (Routine) - Closed Specialty Diagnoses / Procedures Referred By Contac t Referred To Contact XR IMAGING Diagnoses Preoperative testing Procedures XR NECK SOFT TISSUE 2V AP/LAT RADIOLOGIC EXAMINATION NECK SOFT TISSUE Aida Ervin PA-C [address] [place] [address] [place] [address] Referral ID Status Reason Start Date Expiration Date V isits Requested Visits Authorized [id number] Closed Auto-Generate d Referral 08/05/2023 09/03/2024 1 1 [facility] for referral (narrative)* Diagnostic Procedure Only (Routine) - Closed Specialty Diagnoses / Procedures Referred By Contac t Referred To Contact XR IMAGING Diagnoses Neck pain Procedures XR CERV OTHER 4V AP/LAT/OBL RADEX SPINE CERVICAL 4 OR 5 VIEWS Jodi Denney, PRODUCT PICKER.CERTIFIED SHORTHAND REPORTER [address] [place] [address] [place] [address] Referral ID Status Reason Start Date Expiration Date V isits Requested Visits Authorized [id number] Closed Auto-Generate d Referral 05/27/2024 06/26/2025 1 1 [facility] for referral (narrative)* Diagnostic Procedure Only (Routine) - Closed Specialty Diagnoses / Procedures Referred By Contac t Referred To Contact XR IMAGING Diagnoses Neck pain Procedures XR CERV OTHER 4V AP/LAT/OBL RADEX SPINE CERVICAL 4 OR 5 VIEWS Jodi Denney, PRODUCT PICKER.CERTIFIED SHORTHAND REPORTER [address] [place] [address] [place] [address] Referral ID Status Reason Start Date Expiration Date V isits Requested Visits Authorized [id number] Closed Auto-Generate d Referral 05/27/2024 06/26/2025 1 1 [facility] for visit Narrative* Diagnostic Procedure Only (Routine) - Closed Specialty Diagnoses / Procedures Referred By Contac t Referred To Contact XR IMAGING Diagnoses Neck pain Procedures XR CERV OTHER 4V AP/LAT/OBL RADEX SPINE CERVICAL 4 OR 5 VIEWS Jodi Denney, PRODUCT PICKER.CERTIFIED SHORTHAND REPORTER [address] [address] [place] [address] Referral ID Status Reason Start Date Expiration Date V isits Requested Visits Authorized [id number] Closed Auto-Generate d Referral 05/27/2024 06/26/2025 1 1 [facility] Summary Purpose Family History No Family History Records Found Relationship Condition Age at Onset Recorded Date/T pan father Myocardial infarction Unknown Advance Directives No Advanced Directives Records FoundDocuments on File Type Date Recorded 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 Advance Directive(s) 09/21/2020 11:55 AM Advance Directive(s) 06/20/2020 12:31 PM Advance Directive(s) 05/12/2019 11:28 AM Advance Directive(s) 05/09/2019 11:17 AM Advance Directive(s) 02/03/2018 11:54 AM Advance Directive(s) 04/08/2016 9:04 PM Advance Directive(s) 03/31/2016 8:54 AM Advance Directive(s) 03/26/2016 2:09 PM Documents on File Type Date Recorded 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 Advance Directive(s) 09/21/2020 11:55 AM [...] remission (HCC) Procedures CONSULT TO [facility]CHOLOGY OFFICE[facility] 60-74 MINUTES Lino South MD [address] [facility] [place] [phone] Referral ID Status Reason Start Date Expiration Date Visits Requested Visits Authorized [id number] Pending Review PCP Requested Referral 08/20/2021 08/20/2022 1 1 Specialty Diagnoses / Procedures Referred By Contac t Referred To Contact Diagnoses Partial epilepsy with impairment of consciousness, intractable (HCC) Chronic nonintractable headache, unspecified headache type Procedures CONSULT TO HEADACHE CLINIC OFFICE[facility] 60-74 MINUTES Susannah Gudino PA-C [address] [place] [phone] Referral ID Status Reason Start Date Expiration Date Visits Requested Visits Authorized [id number] Authorized PCP Requested Referral 07/15/2022 07/15/2023 1 1 Specialty Diagnoses / Procedures Referred By Contac t Referred To Contact Neurosurgery Diagnoses Partial epilepsy with impairment of consciousness, intractable (HCC) Procedures CONSULT TO NEUROSURGERY OFFICE[facility] 60 MINUTES Inez Cordero PA-C [address] [place] [address] Referral ID Status Reason Start Date Expiration Date Visits Requested Visits Authorized [id number] Authorized PCP Requested Referral 08/03/2023 08/02/2024 1 1 Specialty Diagnoses / Procedures Referred By Contac t Referred To Contact Diagnoses Chronic migraine without aura without status migrainosus, not intractable Procedures CONSULT TO HEADACHE CLINIC OFFICE[facility] 60 MINUTES Inez Cordero PA-C [address] [place] [phone] Referral ID Status Reason Start Date Expiration Date Visits Requested Visits Authorized [id number] Authorized PCP Requested Referral 02/01/2024 01/31/2025 1 1 Specialty Diagnoses / Procedures Referred By Contac t Referred To Contact MR IMAGING Diagnoses Spinal stenosis of lumbar region without neurogenic claudication Procedures MRI LUMBAR SPINE WO IVCON MRI SPINAL CANAL LUMBAR W/O CONTRAST [place] [address] [address]OMSE [address] [place] [address] [place] [address] Referral ID Status Reason Start Date Expiration Date Visits Requested Visits Authorized [id number] New Request Auto-Generat ed Referral 04/29/2025 1 1 Referral ID Status Reason Start Date Expiration Date V isits Requested Visits Authorized [id number] Closed Auto-Generate d Referral 03/30/2024 04/29/2025 1 1 Specialty Diagnoses / Procedures Referred By Contac t Referred To Contact Rehabilitation Diagnoses Chronic bilateral low back pain, unspecified whether sciatica present Chronic thoracic spine pain Chester Maher, PRODUCT PICKER-CERTIFIED SHORTHAND REPORTER [address] [place] [address] [phone] Referral ID Status Reason Start Date Expiration Date Visits Requested Visits Authorized [id number] Pending Review Specialty Services Required 01/19/2024 07/18/2024 12 12 Chief Complaint and Reason for Visit Chief [...] and content) DATE CREATED AUTHOR 11/11/2017 [facility] DATE CREATED AUTHOR AUTHOR'S ORGANIZ ATION 01/30/2018 [facility] DATE CREATED AUTHOR AUTHOR'S ORGANIZ ATION 07/31/2022 [facility] DATE CREATED AUTHOR AUTHOR'S ORGANIZ ATION 12/30/2022 [facility] DATE CREATED AUTHOR AUTHOR'S ORGANIZ ATION 04/09/2023 [facility] DATE CREATED AUTHOR AUTHOR'S ORGANIZ ATION 06/09/2023 [facility] DATE CREATED AUTHOR AUTHOR'S ORGANIZ ATION 07/18/2023 [facility] DATE CREATED AUTHOR AUTHOR'S ORGANIZ ATION [facility]/05/2023 [facility] DATE CREATED AUTHOR AUTHOR'S ORGANIZ ATION [facility]/20[facility]2024 [facility] DATE CREATED AUTHOR AUTHOR'S ORGANIZ ATION 04/04/2024 [facility] DATE CREATED AUTHOR AUTHOR'S ORGANIZ ATION 05/29/2024 [facility] DATE CREATED AUTHOR AUTHOR'S ORGANIZ ATION 09/07/2024 [facility] DATE CREATED AUTHOR AUTHOR'S ORGANIZ ATION 09/22/2024 [facility] DATE CREATED AUTHOR AUTHOR'S ORGANIZ ATION 09/24/2024 [facility] Source Comments (unrecognize d section and content) In the event this informatio n is protected by the Federal Confidentiality of Alcohol and Drug Abuse Patient Records regulations: The Federal rules restrict any use of the information to criminally investigate or prosecute any alcohol or drug abuse patient.[facility]healthIn the event this information is protected by the Federal Confidentiality of Alcohol and Drug Abuse Patient Records regulations: The Federal rules restrict any use of the information to criminally investigate or prosecute any alcohol or drug abuse patient.[facility]healthIn the event this information is protected by the Federal Confidentiality of Alcohol and Drug Abuse Patient Records regulations: The Federal rules restrict any use of the information to criminally investigate or prosecute any alcohol or drug abuse patient.[facility]healthIn the event this information is protected by the Federal Confidentiality of Alcohol and Drug Abuse Patient Records regulations: The Federal rules restrict any use of the information to criminally investigate or prosecute any alcohol or drug abuse patient.[facility]healthIn the event this information is protected by the Federal Confidentiality of Alcohol and Drug Abuse Patient Records regulations: The Federal rules restrict any use of the information to criminally investigate or prosecute any alcohol or drug abuse patient.[facility]healthIn the event this information is protected by the Federal Confidentiality of Alcohol and Drug Abuse Patient Records regulations: The Federal rules restrict any use of the information to criminally investigate or prosecute any alcohol or drug abuse patient.[facility]healthIn the event this information is protected by the Federal Confidentiality of Alcohol and Drug Abuse Patient Records regulations: The Federal rules restrict any use of the information to criminally investigate or prosecute any alcohol or drug abuse patient.[facility]healthIn the event this information is protected by the Federal Confidentiality of Alcohol and Drug Abuse Patient Records regulations: The Federal rules restrict any use of the information to criminally investigate or prosecute any alcohol or drug abuse patient.[facility]healthIn the event this information is protected by the Federal Confidentiality of Alcohol and Drug Abuse Patient Records regulations: The Federal rules restrict any use of the information to criminally investigate or prosecute any alcohol or drug abuse patient.[facility]healthIn the event this information is protected by the Federal Confidentiality of Alcohol and Drug Abuse Patient Records regulations: The Federal rules restrict any use of the information to criminally investigate or prosecute any alcohol or drug abuse patient.[facility]healthIn the event this information is protected by the Federal Confidentiality of Alcohol and Drug Abuse Patient Records regulations: The Federal rules restrict any use of the information to criminally investigate or prosecute any alcohol or drug abuse patient.[facility]healthIn the event this information is protected by the Federal Confidentiality of Alcohol and Drug Abuse Patient Records regulations: The Federal rules restrict any use of the information to criminally investigate or prosecute any alcohol or drug abuse patient.[facility]healthIn the event this information is protected by the Federal Confidentiality of Alcohol and Drug Abuse Patient Records regulations: The Federal rules restrict any use of the information to criminally investigate or prosecute any alcohol or drug abuse patient.[facility]healthIn the event this information is protected by the Federal Confidentiality of Alcohol and Drug Abuse Patient Records regulations: The Federal rules restrict any use of the information to criminally investigate or prosecute any alcohol or drug abuse patient.[facility]healthIn the event this information is protected by the Federal Confidentiality of Alcohol and Drug Abuse Patient Records regulations: The Federal rules restrict any use of the information to criminally investigate or prosecute any alcohol or drug abuse patient.[facility]healthIn the event this information is protected by the Federal Confidentiality of Alcohol and Drug Abuse Patient Records regulations: The Federal rules restrict any use of the information to criminally investigate or prosecute any alcohol or drug abuse patient.[facility]In the event this information is protected by the Federal Confidentiality of Alcohol and Drug Abuse Patient Records regulations: The Federal rules restrict any use of the information to criminally investigate or prosecute any alcohol or drug abuse patient.[facility]healthIn the event this information is protected by the Federal Confidentiality of Alcohol and Drug Abuse Patient Records regulations: The Federal rules restrict any use of the information to criminally investigate or prosecute any alcohol or drug abuse patient.[facility]healthIn the event this information is protected by the Federal Confidentiality of Alcohol and Drug Abuse Patient Records regulations: The Federal rules restrict any use of the information to criminally investigate or prosecute any alcohol or drug abuse patient.[facility]healthIn the event this information is protected by the Federal Confidentiality of Alcohol and Drug Abuse Patient Records regulations: The Federal rules restrict any use of the information to criminally investigate or prosecute any alcohol or drug abuse patient.[facility]healthIn the event this information is protected by the Federal Confidentiality of Alcohol and Drug Abuse Patient Records regulations: The Federal rules restrict any use of the information to criminally investigate or prosecute any alcohol or drug abuse patient.[facility]healthIn the event this information is protected by the Federal Confidentiality of Alcohol and Drug Abuse Patient Records regulations: The Federal rules restrict any use of the information to criminally investigate or prosecute any alcohol or drug abuse patient.[facility]In the event this information is protected by the Federal Confidentiality of Alcohol and Drug Abuse Patient Records regulations: The Federal rules restrict any use of the information to criminally investigate or prosecute any alcohol or drug abuse patient.[facility]healthIn the event this information is protected by the Federal Confidentiality of Alcohol and Drug Abuse Patient Records regulations: The Federal rules restrict any use of the information to criminally investigate or prosecute any alcohol or drug abuse patient.[facility]In the event this information is protected by the Federal Confidentiality of Alcohol and Drug Abuse Patient Records regulations: The Federal rules restrict any use of the information to criminally investigate or prosecute any alcohol or drug abuse patient.[facility]In the event this information is protected by the Federal Confidentiality of Alcohol and Drug Abuse Patient Records regulations: The Federal rules restrict any use of the information to criminally investigate or prosecute any alcohol or drug abuse patient.[facility]In the event this information is protected by the Federal Confidentiality of Alcohol and Drug Abuse Patient Records regulations: The Federal rules restrict any use of the information to criminally investigate or prosecute any alcohol or drug abuse patient.[facility]In the event this information is protected by the Federal Confidentiality of Alcohol and Drug Abuse Patient Records regulations: The Federal rules restrict any use of the information to criminally investigate or prosecute any alcohol or drug abuse patient.[facility]In the event this information is protected by the Federal Confidentiality of Alcohol and Drug Abuse Patient Records regulations: The Federal rules restrict any use of the information to criminally investigate or prosecute any alcohol or drug abuse patient.[facility]In the event this information is protected by the Federal Confidentiality of Alcohol and Drug Abuse Patient Records regulations: The Federal rules restrict any use of the information to criminally investigate or prosecute any alcohol or drug abuse patient.[facility]In the event this information is protected by the Federal Confidentiality of Alcohol and Drug Abuse Patient Records regulations: The Federal rules restrict any use of the information to criminally investigate or prosecute any alcohol or drug abuse patient.[facility]In the event this information is protected by the Federal Confidentiality of Alcohol and Drug Abuse Patient Records regulations: The Federal rules restrict any use of the information to criminally investigate or prosecute any alcohol or drug abuse patient.[facility]In the event this information is protected by the Federal Confidentiality of Alcohol and Drug Abuse Patient Records regulations: The Federal rules restrict any use of the information to criminally investigate or prosecute any alcohol or drug abuse patient.[facility]In the event this information is protected by the Federal Confidentiality of Alcohol and Drug Abuse Patient Records regulations: The Federal rules restrict any use of the information to criminally investigate or prosecute any alcohol or drug abuse patient.[facility]In the event this information is protected by the Federal Confidentiality of Alcohol and Drug Abuse Patient Records regulations: The Federal rules restrict any use of the information to criminally investigate or prosecute any alcohol or drug abuse patient.[facility]In the event this information is protected by the Federal Confidentiality of Alcohol and Drug Abuse Patient Records regulations: The Federal rules restrict any use of the information to criminally investigate or prosecute any alcohol or drug abuse patient.[facility]In the event this information is protected by the Federal Confidentiality of Alcohol and Drug Abuse Patient Records regulations: The Federal rules restrict any use of the information to criminally investigate or prosecute any alcohol or drug abuse patient.[facility]In the event this information is protected by the Federal Confidentiality of Alcohol and Drug Abuse Patient Records regulations: The Federal rules restrict any use of the information to criminally investigate or prosecute any alcohol or drug abuse patient.[facility]In the event this information is protected by the Federal Confidentiality of Alcohol and Drug Abuse Patient Records regulations: The Federal rules restrict any use of the information to criminally investigate or prosecute any alcohol or drug abuse patient.[facility]In the event this information is protected by the Federal Confidentiality of Alcohol and Drug Abuse Patient Records regulations: The Federal rules restrict any use of the information to criminally investigate or prosecute any alcohol or drug abuse patient.[facility]In the event this information is protected by the Federal Confidentiality of Alcohol and Drug Abuse Patient Records regulations: The Federal rules restrict any use of the information to criminally investigate or prosecute any alcohol or drug abuse patient.[facility]In the event this information is protected by the Federal Confidentiality of Alcohol and Drug Abuse Patient Records regulations: The Federal rules restrict any use of the information to criminally investigate or prosecute any alcohol or drug abuse patient.[facility]In the event this information is protected by the Federal Confidentiality of Alcohol and Drug Abuse Patient Records regulations: The Federal rules restrict any use of the information to criminally investigate or prosecute any alcohol or drug abuse patient.[facility]In the event this information is protected by the Federal Confidentiality of Alcohol and Drug Abuse Patient Records regulations: The Federal rules restrict any use of the information to criminally investigate or prosecute any alcohol or drug abuse patient.[facility]In the event this information is protected by the Federal Confidentiality of Alcohol and Drug Abuse Patient Records regulations: The Federal rules restrict any use of the information to criminally investigate or prosecute any alcohol or drug abuse patient.[facility]healthIn the event this information is protected by the Federal Confidentiality of Alcohol and Drug Abuse Patient Records regulations: The Federal rules restrict any use of the information to criminally investigate or prosecute any alcohol or drug abuse patient.[facility]healthIn the event this information is protected by the Federal Confidentiality of Alcohol and Drug Abuse Patient Records regulations: The Federal rules restrict any use of the information to criminally investigate or prosecute any alcohol or drug abuse patient.[facility]healthIn the event this information is protected by the Federal Confidentiality of Alcohol and Drug Abuse Patient Records regulations: The Federal rules restrict any use of the information to criminally investigate or prosecute any alcohol or drug abuse patient.[facility]In the event this information is protected by the Federal Confidentiality of Alcohol and Drug Abuse Patient Records regulations: The Federal rules restrict any use of the information to criminally investigate or prosecute any alcohol or drug abuse patient.[facility]In the event this information is protected by the Federal Confidentiality of Alcohol and Drug Abuse Patient Records regulations: The Federal rules restrict any use of the information to criminally investigate or prosecute any alcohol or drug abuse patient.[facility]In the event this information is protected by the Federal Confidentiality of Alcohol and Drug Abuse Patient Records regulations: The Federal rules restrict any use of the information to criminally investigate or prosecute any alcohol or drug abuse patient.[facility]In the event this information is protected by the Federal Confidentiality of Alcohol and Drug Abuse Patient Records regulations: The Federal rules restrict any use of the information to criminally investigate or prosecute any alcohol or drug abuse patient.[facility]In the event this information is protected by the Federal Confidentiality of Alcohol and Drug Abuse Patient Records regulations: The Federal rules restrict any use of the information to criminally investigate or prosecute any alcohol or drug abuse patient.[facility]In the event this information is protected by the Federal Confidentiality of Alcohol and Drug Abuse Patient Records regulations: The Federal rules restrict any use of the information to criminally investigate or prosecute any alcohol or drug abuse patient.[facility]In the event this information is protected by the Federal Confidentiality of Alcohol and Drug Abuse Patient Records regulations: The Federal rules restrict any use of the information to criminally investigate or prosecute any alcohol or drug abuse patient.[facility]In the event this information is protected by the Federal Confidentiality of Alcohol and Drug Abuse Patient Records regulations: The Federal rules restrict any use of the information to criminally investigate or prosecute any alcohol or drug abuse patient.[facility]In the event this information is protected by the Federal Confidentiality of Alcohol and Drug Abuse Patient Records regulations: The Federal rules restrict any use of the information to criminally investigate or prosecute any alcohol or drug abuse patient.[facility]In the event this information is protected by the Federal Confidentiality of Alcohol and Drug Abuse Patient Records regulations: The Federal rules restrict any use of the information to criminally investigate or prosecute any alcohol or drug abuse patient.[facility]In the event this information is protected by the Federal Confidentiality of Alcohol and Drug Abuse Patient Records regulations: The Federal rules restrict any use of the information to criminally investigate or prosecute any alcohol or drug abuse patient.[facility]In the event this information is protected by the Federal Confidentiality of Alcohol and Drug Abuse Patient Records regulations: The Federal rules restrict any use of the information to criminally investigate or prosecute any alcohol or drug abuse patient.[facility]In the event this information is protected by the Federal Confidentiality of Alcohol and Drug Abuse Patient Records regulations: The Federal rules restrict any use of the information to criminally investigate or prosecute any alcohol or drug abuse patient.[facility]In the event this information is protected by the Federal Confidentiality of Alcohol and Drug Abuse Patient Records regulations: The Federal rules restrict any use of the information to criminally investigate or prosecute any alcohol or drug abuse patient.[facility]In the event this information is protected by the Federal Confidentiality of Alcohol and Drug Abuse Patient Records regulations: The Federal rules restrict any use of the information to criminally investigate or prosecute any alcohol or drug abuse patient.[facility]In the event this information is protected by the Federal Confidentiality of Alcohol and Drug Abuse Patient Records regulations: The Federal rules restrict any use of the information to criminally investigate or prosecute any alcohol or drug abuse patient.[facility]In the event this information is protected by the Federal Confidentiality of Alcohol and Drug Abuse Patient Records regulations: The Federal rules restrict any use of the information to criminally investigate or prosecute any alcohol or drug abuse patient.[facility]In the event this information is protected by the Federal Confidentiality of Alcohol and Drug Abuse Patient Records regulations: The Federal rules restrict any use of the information to criminally investigate or prosecute any alcohol or drug abuse patient.[facility]In the event this information is protected by the Federal Confidentiality of Alcohol and Drug Abuse Patient Records regulations: The Federal rules restrict any use of the information to criminally investigate or prosecute any alcohol or drug abuse patient.[facility]In the event this information is protected by the Federal Confidentiality of Alcohol and Drug Abuse Patient Records regulations: The Federal rules restrict any use of the information to criminally investigate or prosecute any alcohol or drug abuse patient.[facility]In the event this information is protected by the Federal Confidentiality of Alcohol and Drug Abuse Patient Records regulations: The Federal rules restrict any use of the information to criminally investigate or prosecute any alcohol or drug abuse patient.[facility]In the event this information is protected by the Federal Confidentiality of Alcohol and Drug Abuse Patient Records regulations: The Federal rules restrict any use of the information to criminally investigate or prosecute any alcohol or drug abuse patient.[facility]In the event this information is protected by the Federal Confidentiality of Alcohol and Drug Abuse Patient Records regulations: The Federal rules restrict any use of the information to criminally investigate or prosecute any alcohol or drug abuse patient.[facility]In the event this information is protected by the Federal Confidentiality of Alcohol and Drug Abuse Patient Records regulations: The Federal rules restrict any use of the information to criminally investigate or prosecute any alcohol or drug abuse patient.[facility]In the event this information is protected by the Federal Confidentiality of Alcohol and Drug Abuse Patient Records regulations: The Federal rules restrict any use of the information to criminally investigate or prosecute any alcohol or drug abuse patient.[facility]In the event this information is protected by the Federal Confidentiality of Alcohol and Drug Abuse Patient Records regulations: The Federal rules restrict any use of the information to criminally investigate or prosecute any alcohol or drug abuse patient.[facility]In the event this information is protected by the Federal Confidentiality of Alcohol and Drug Abuse Patient Records regulations: The Federal rules restrict any use of the information to criminally investigate or prosecute any alcohol or drug abuse patient.[facility]In the event this information is protected by the Federal Confidentiality of Alcohol and Drug Abuse Patient Records regulations: The Federal rules restrict any use of the information to criminally investigate or prosecute any alcohol or drug abuse patient.[facility]In the event this information is protected by the Federal Confidentiality of Alcohol and Drug Abuse Patient Records regulations: The Federal rules restrict any use of the information to criminally investigate or prosecute any alcohol or drug abuse patient.[facility]In the event this information is protected by the Federal Confidentiality of Alcohol and Drug Abuse Patient Records regulations: The Federal rules restrict any use of the information to criminally investigate or prosecute any alcohol or drug abuse patient.[facility]In the event this information is protected by the Federal Confidentiality of Alcohol and Drug Abuse Patient Records regulations: The Federal rules restrict any use of the information to criminally investigate or prosecute any alcohol or drug abuse patient.[facility]In the event this information is protected by the Federal Confidentiality of Alcohol and Drug Abuse Patient Records regulations: The Federal rules restrict any use of the information to criminally investigate or prosecute any alcohol or drug abuse patient.[facility]In the event this information is protected by the Federal Confidentiality of Alcohol and Drug Abuse Patient Records regulations: The Federal rules restrict any use of the information to criminally investigate or prosecute any alcohol or drug abuse patient.[facility]In the event this information is protected by the Federal Confidentiality of Alcohol and Drug Abuse Patient Records regulations: The Federal rules restrict any use of the information to criminally investigate or prosecute any alcohol or drug abuse patient.[facility]In the event this information is protected by the Federal Confidentiality of Alcohol and Drug Abuse Patient Records regulations: The Federal rules restrict any use of the information to criminally investigate or prosecute any alcohol or drug abuse patient.[facility]In the event this information is protected by the Federal Confidentiality of Alcohol and Drug Abuse Patient Records regulations: The Federal rules restrict any use of the information to criminally investigate or prosecute any alcohol or drug abuse patient.[facility]In the event this information is protected by the Federal Confidentiality of Alcohol and Drug Abuse Patient Records regulations: The Federal rules restrict any use of the information to criminally investigate or prosecute any alcohol or drug abuse patient.[facility]In the event this information is protected by the Federal Confidentiality of Alcohol and Drug Abuse Patient Records regulations: The Federal rules restrict any use of the information to criminally investigate or prosecute any alcohol or drug abuse patient.[facility]In the event this information is protected by the Federal Confidentiality of Alcohol and Drug Abuse Patient Records regulations: The Federal rules restrict any use of the information to criminally investigate or prosecute any alcohol or drug abuse patient.[facility]In the event this information is protected by the Federal Confidentiality of Alcohol and Drug Abuse Patient Records regulations: The Federal rules restrict any use of the information to criminally investigate or prosecute any alcohol or drug abuse patient.[facility]In the event this information is protected by the Federal Confidentiality of Alcohol and Drug Abuse Patient Records regulations: The Federal rules restrict any use of the information to criminally investigate or prosecute any alcohol or drug abuse patient.[facility]In the event this information is protected by the Federal Confidentiality of Alcohol and Drug Abuse Patient Records regulations: The Federal rules restrict any use of the information to criminally investigate or prosecute any alcohol or drug abuse patient.[facility]In the event this information is protected by the Federal Confidentiality of Alcohol and Drug Abuse Patient Records regulations: The Federal rules restrict any use of the information to criminally investigate or prosecute any alcohol or drug abuse patient.[facility]In the event this information is protected by the Federal Confidentiality of Alcohol and Drug Abuse Patient Records regulations: The Federal rules restrict any use of the information to criminally investigate or prosecute any alcohol or drug abuse patient.[facility]In the event this information is protected by the Federal Confidentiality of Alcohol and Drug Abuse Patient Records regulations: The Federal rules restrict any use of the information to criminally investigate or prosecute any alcohol or drug abuse patient.[facility]In the event this information is protected by the Federal Confidentiality of Alcohol and Drug Abuse Patient Records regulations: The Federal rules restrict any use of the information to criminally investigate or prosecute any alcohol or drug abuse patient.[facility]In the event this information is protected by the Federal Confidentiality of Alcohol and Drug Abuse Patient Records regulations: The Federal rules restrict any use of the information to criminally investigate or prosecute any alcohol or drug abuse patient.[facility]In the event this information is protected by the Federal Confidentiality of Alcohol and Drug Abuse Patient Records regulations: The Federal rules restrict any use of the information to criminally investigate or prosecute any alcohol or drug abuse patient.[facility]In the event this information is protected by the Federal Confidentiality of Alcohol and Drug Abuse Patient Records regulations: The Federal rules restrict any use of the information to criminally investigate or prosecute any alcohol or drug abuse patient.[facility]In the event this information is protected by the Federal Confidentiality of Alcohol and Drug Abuse Patient Records regulations: The Federal rules restrict any use of the information to criminally investigate or prosecute any alcohol or drug abuse patient.[facility]In the event this information is protected by the Federal Confidentiality of Alcohol and Drug Abuse Patient Records regulations: The Federal rules restrict any use of the information to criminally investigate or prosecute any alcohol or drug abuse patient.[facility]In the event this information is protected by the Federal Confidentiality of Alcohol and Drug Abuse Patient Records regulations: The Federal rules restrict any use of the information to criminally investigate or prosecute any alcohol or drug abuse patient.[facility]In the event this information is protected by the Federal Confidentiality of Alcohol and Drug Abuse Patient Records regulations: The Federal rules restrict any use of the information to criminally investigate or prosecute any alcohol or drug abuse patient.[facility]In the event this information is protected by the Federal Confidentiality of Alcohol and Drug Abuse Patient Records regulations: The Federal rules restrict any use of the information to criminally investigate or prosecute any alcohol or drug abuse patient.[facility]In the event this information is protected by the Federal Confidentiality of Alcohol and Drug Abuse Patient Records regulations: The Federal rules restrict any use of the information to criminally investigate or prosecute any alcohol or drug abuse patient.[facility]In the event this information is protected by the Federal Confidentiality of Alcohol and Drug Abuse Patient Records regulations: The Federal rules restrict any use of the information to criminally investigate or prosecute any alcohol or drug abuse patient.[facility]In the event this information is protected by the Federal Confidentiality of Alcohol and Drug Abuse Patient Records regulations: The Federal rules restrict any use of the information to criminally investigate or prosecute any alcohol or drug abuse patient.[facility]In the event this information is protected by the Federal Confidentiality of Alcohol and Drug Abuse Patient Records regulations: The Federal rules restrict any use of the information to criminally investigate or prosecute any alcohol or drug abuse patient.[facility]In the event this information is protected by the Federal Confidentiality of Alcohol and Drug Abuse Patient Records regulations: The Federal rules restrict any use of the information to criminally investigate or prosecute any alcohol or drug abuse patient.[facility]In the event this information is protected by the Federal Confidentiality of Alcohol and Drug Abuse Patient Records regulations: The Federal rules restrict any use of the information to criminally investigate or prosecute any alcohol or drug abuse patient.[facility]In the event this information is protected by the Federal Confidentiality of Alcohol and Drug Abuse Patient Records regulations: The Federal rules restrict any use of the information to criminally investigate or prosecute any alcohol or drug abuse patient.[facility]In the event this information is protected by the Federal Confidentiality of Alcohol and Drug Abuse Patient Records regulations: The Federal rules restrict any use of the information to criminally investigate or prosecute any alcohol or drug abuse patient.[facility]healthIn the event this information is protected by the Federal Confidentiality of Alcohol and Drug Abuse Patient Records regulations: The Federal rules restrict any use of the information to criminally investigate or prosecute any alcohol or drug abuse patient.[facility] Reason for Visit (unrecogniz ed section and [...] EXAMINATION NECK SOFT TISSUE Neur Epilepsy [address] [place] [address] Xr Imaging Referral ID Status Reason Start Date Expiration Date V isits Requested Visits Authorized [id number] Closed Auto-Generate d Referral 01/06/2022 02/05/2023 1 [...] H&P Procedures VIDEO PSYC/PSYL EST Michael Cordoba, PRODUCT PICKER.CERTIFIED SHORTHAND REPORTER [address] [place] [address] Josi Queen PA-C [address] [place] [address] Referral ID Status Reason Start Date Expiration Date V isits Requested Visits Authorized [id number] Authorized 05/12/2023 05/17/2024 99 99 Specialty Diagnoses / Procedures Referred By Contac t Referred To Contact ADULT PSYCHIATRY Diagnoses NEW DBT IOP Procedures VIDEO PSYC/PSYL GRP (ZOOM) Mya Tena, PRODUCT PICKER.CERTIFIED SHORTHAND REPORTER [address] [place] [address] Psyc Adult [facility] [address] [place] [address] Referral ID Status Reason Start Date Expiration Date V isits Requested Visits Authorized [id number] Authorized 05/13/2023 05/17/2024 99 99 Reason Comments Medication Authorization Reason Comments Epilepsy Follow Up Reason Comments Breakfast Hostess - Other Reason Comments Schedule Surgery VNS change Reason Comments Forms bmv Reason Comments Other Surgery Time, Transp ortation Reason Comments Forms BMV Reason Comments Pre-Op Visit Reason Comments Pre-Op Exam Specialty Diagnoses / Procedures Referred By Contac t Referred To Contact Neurosurgery Diagnoses Partial epilepsy with impairment of consciousness, intractable (HCC) Procedures CONSULT TO NEUROSURGERY OFFICE[facility] 60 [facility]UTES Inez Cordero PA-C [address] [place] [address] Referral ID Status Reason Start Date Expiration Date V isits Requested Visits Authorized [id number] Closed PCP Requested Referral 08/03/2023 08/02/2024 1 1 Reason Comments Radio Gen A21 Specialty Diagnoses / Procedures Referred By Contac t Referred To Contact XR IMAGING Diagnoses Preoperative testing Procedures XR NECK SOFT TISSUE 2V AP/LAT RADIOLOGIC EXAMINATION NECK SOFT TISSUE Aida Ervin PA-C [address] [place] [address] [place] [address] Referral ID Status Reason Start Date Expiration Date V isits Requested Visits Authorized [id number] Closed Auto-Generate d Referral 08/05/2023 09/03/2024 1 [...] chronic pain Pain in thoracic spine Procedures [place] PHYSICAL THERAPY EVALUATION LOW COMPLEX 20 MINS Chester Maher MD [address] [place] [address] Shawnee Moeller PT Referral ID Status Reason Start Date Expiration Date V isits Requested Visits Authorized [id number] Authorized 02/01/2024 07/30/2024 30 30 Reason Onset Date Comments re: PT 03/02/2024 I had to contact re: [place]/NS for PT today and he said he is in transition to a new doctor and we should be receiving a new referral from him. He is cancelling out his 3 remaining; he noted he would like to proceed w/ PT once new referral has been obtained. Reason Comments Letter Letter for work Reason Comments Numbness/Tingling Reason Comments Appointment Pain management Reason Comments Consult Specialty Diagnoses / Procedures Referred By Contac t Referred To Contact [facility] Diagnoses Degeneration of intervertebral disc of lumbar region with discogenic back pain Procedures CONSULT TO PAIN MGT OFFICE/OUTPATIENT [facility] 60 MINUTES Sobeida Galvan MD [address] [place] [address] Anesthesia [place] [facility] [place] [id number] Referral ID Status Reason Start Date Expiration Date V isits Requested Visits Authorized [id number] Closed PCP Requested Referral 02/29/2024 02/28/2025 1 1 Reason Comments Orders Reason Onset Date Comments re: Missed PT Eval 02/01/2024 Called to in uire on missed PT Eval and he said he had cx over text last Thursday; I apologized I had not received. He noted he had bloodwork / CT to be done today and re: rest of the week he is already w/ plans. I told him when he gets time to call us back and we can look into next week for possible Eval times openings. FU 02/11/2024 Contacted and of fered to rs PT Eval. He noted due to availability the soonest opening for Eval would be 02/21; scheduled and recommended scheduling on. He said w/ appts w/ [facility] he'll wait till post Eval. Reason Comments Pain Reason Comments Established Patient VNS Visit Reason Comments VNS Visit Specialty Diagnoses / Procedures Referred By Jaiden small Referred To Contact MR IMAGING Diagnoses Spinal stenosis of lumbar region without neurogenic claudication Procedures MRI LUMBAR SPINE WO IVCON MRI SPINAL CANAL LUMBAR W/O CONTRAST [place] [address] CHARISSE GOMES [address] [place] [id number] [place] [address] Referral ID Status Reason Start Date Expiration Date V isits Requested Visits Authorized [id number] Closed Auto-Generate d Referral 03/30/2024 04/29/2025 1 1 Reason Comments Radiology XR Reason Comments Results Reason Comments Medication Problem May patient use Lyri ca for his arthritis? Reason Onset Date Comments re: CX PT eval over MyChart 06/01/2024 post Check-up 06/02/2024 FU 06/13/2024 Reason Comments Back Pain Specialty Diagnoses / Procedures Referred By Jaiden smlal Referred To Contact Pain Medicine Diagnoses Acute exacerbation of chronic low back pain Dania Ervin, PRODUCT PICKER-CERTIFIED SHORTHAND REPORTER [address] [place] [address] [facility] [address] [place] [address] Referral ID Status Reason Start Date Expiration Date Visits Requested Visits Authorized [id number] Pending Review Specialty Services Required 12/28/2023 12/27/2024 1 1 Reason Comments Schedule Injection Reason Comments pain procedure response & follow up [place] geovanny Diagnostic L5-S1 Lumbar facet joint medial branch nerve block #1 Reason Comments Post Op Reason Comments Procedure Follow Up Right L5-S1 lumbar f acet joint medial branch nerve radiofrequency ablation under fluoroscopic guidance. Care Teams (unrecognized sec tion and content) [...] Attending Provider Active Start: September 23, 2023 Cut To Length Operator Relationship Specialty Start Date End Date Uriel Nunez MD PCP - General Family Practice 01/02/11 Cut To Length Operator Relationship Specialty Start Date End Date Uriel Nunez MD PCP - General Family Practice 01/02/11 Cut To Length Operator Relationship Specialty Start Date End Date Uriel Nunez MD PCP - General Family Practice 01/02/11 Cut To Length Operator Relationship Specialty Start Date End Date Uriel Nunez MD PCP - General Family Practice 01/02/11 Cut To Length Operator Relationship Specialty Start Date End Date Uriel Nunez MD PCP - General Family Practice 01/02/11 Cut To Length Operator Relationship Specialty Start Date End Date Uriel Nunez MD PCP - General Family Practice 01/02/11 Cut To Length Operator Relationship Specialty Start Date End Date Uriel Nunez MD PCP - General Family Practice 01/02/11 Cut To Length Operator Relationship Specialty Start Date End Date Uriel Nunez MD PCP - General Family Practice 01/02/11 Cut To Length Operator Relationship Specialty Start Date End Date Uriel Nunez MD PCP - General Family Practice 01/02/11 Cut To Length Operator Relationship Specialty Start Date End Date Uriel Nunez MD PCP - General Family Medicine 01/02/11 Cut To Length Operator Relationship Specialty Start Date End Date Uriel Nunez MD PCP - General Family Medicine 01/02/11 Cut To Length Operator Relationship Specialty Start Date End Date Uriel Nunez MD PCP - General Family Medicine 01/02/11 Cut To Length Operator Relationship Specialty Start Date End Date Uriel Nunez MD PCP - General Family Medicine 01/02/11 Cut To Length Operator Relationship Specialty Start Date End Date Uriel Nunez MD PCP - General Family Medicine 01/02/11 Cut To Length Operator Relationship Specialty Start Date End Date Uriel Nunez MD PCP - General Family Medicine 01/02/11 Cut To Length Operator Relationship Specialty Start Date End Date Uriel Nunez MD PCP - General Family Medicine 01/02/11 Team Status: Inactive Member Role Status Dates Uriel Nunez MD Primary Care Provider Active Saad Mir DO Emergency Provider Active Cut To Length Operator Relationship Specialty Start Date End Date Uriel Nunez MD PCP - General Family Medicine 01/02/11 Cut To Length Operator Relationship Specialty Start Date End Date Uriel Nunez MD PCP - General Family Medicine 01/02/11 Cut To Length Operator Relationship Specialty Start Date End Date Uriel Nunez MD PCP - General Family Medicine 01/02/11 Cut To Length Operator Relationship Specialty Start Date End Date Uriel Nunez MD PCP - General Family Medicine 01/02/11 Cut To Length Operator Relationship Specialty Start Date End Date Uriel Nunez MD PCP - General Family Medicine 01/02/11 Cut To Length Operator Relationship Specialty Start Date End Date Uriel Nunez MD PCP - General Family Medicine 01/02/11 Cut To Length Operator Relationship Specialty Start Date End Date Uriel Nunez MD PCP - General Family Medicine 01/02/11 Cut To Length Operator Relationship Specialty Start Date End Date Uriel Nunez MD PCP - General Family Medicine 01/02/11 Cut To Length Operator Relationship Specialty Start Date End Date Uriel Nunez MD PCP - General Family Medicine 01/02/11 Cut To Length Operator Relationship Specialty Start Date End Date Uriel Nunez MD PCP - General Family Medicine 01/02/11 Cut To Length Operator Relationship Specialty Start Date End Date Uriel Nunez MD PCP - General Family Medicine 01/02/11 Cut To Length Operator Relationship Specialty Start Date End Date Uriel Nunez MD PCP - General Family Medicine 01/02/11 Cut To Length Operator Relationship Specialty Start Date End Date Uriel Nunez MD PCP - General Family Medicine 01/02/11 Cut To Length Operator Relationship Specialty Start Date End Date Uriel Nunez MD PCP - General Family Medicine 01/02/11 Cut To Length Operator Relationship Specialty Start Date End Date Uriel Nunez MD PCP - General Family Medicine 01/02/11 Cut To Length Operator Relationship Specialty Start Date End Date Uriel Nunez MD PCP - General Family Medicine 01/02/11 Cut To Length Operator Relationship Specialty Start Date End Date Uriel Nunez MD PCP - General Family Medicine 01/02/11 Cut To Length Operator Relationship Specialty Start Date End Date Uriel Nunez MD PCP - General Family Medicine 01/02/11 Cut To Length Operator Relationship Specialty Start Date End Date Uriel Nunez MD PCP - General Family Medicine 01/02/11 Cut To Length Operator Relationship Specialty Start Date End Date Uriel Nunez MD PCP - General Family Medicine 01/02/11 Cut To Length Operator Relationship Specialty Start Date End Date Uriel Nunez MD PCP - General Family Medicine 01/02/11 Cut To Length Operator Relationship Specialty Start Date End Date Uriel Nunez MD PCP - General Family Medicine 01/02/11 Cut To Length Operator Relationship Specialty Start Date End Date Uriel Nunez MD PCP - General Family Medicine 01/02/11 Cut To Length Operator Relationship Specialty Start Date End Date Uriel Nunez MD PCP - General Family Medicine 01/02/11 Cut To Length Operator Relationship Specialty Start Date End Date Uriel Nunez MD PCP - General Family Medicine 01/02/11 Cut To Length Operator Relationship Specialty Start Date End Date Uriel Nunez MD PCP - General Family Medicine 01/02/11 Cut To Length Operator Relationship Specialty Start Date End Date Uriel Nunez MD PCP - General Family Medicine 01/02/11 Cut To Length Operator Relationship Specialty Start Date End Date Uriel Nunez MD PCP - General Family Medicine 01/02/11 Cut To Length Operator Relationship Specialty Start Date End Date Uriel Nunez MD PCP - General Family Medicine 01/02/11 Cut To Length Operator Relationship Specialty Start Date End Date Uriel [...] 2023 End: September 26, 2023 Nirmal Hernandez DO Emergency Provider Active Start: September 23, 2023 End: September 26, 2023 Sherif Francis MD Admit Provider Active S tart: September 23, 2023 End: September 26, 2023 Heide Alston APRN [facility] Other Provider Active Start: September 23, 2023 End: September 26, 2023 Reginald Tang MD Other Provider Active Start: September 23, 2023 End: September 26, 2023 John Rodriguez MD Other Provider Active St art: September 23, 2023 End: September 26, 2023 Martin Dorado MD Other Provider Active Start: M ay 2023 End: September 26, 2023 Quintin Holt DO Other Provider Active Start: September 23, 2023 End: September 26, 2023 Jayesh Eldridge DO Other Provider Active Start: September 23, 2023 End: September 26, 2023 Scott Monterroso MD Other Provider Active Start: M ay 2023 End: September 26, 2023 Rober Bonner MD Other Provider Activ e Start: September 23, 2023 End: September 26, 2023 Joselito Daiyl MD Other Provider Active Start: M ay 2023 End: September 26, 2023 Mary Calhoun [...] tart: September 24, 2023 Heide Alston APRN [facility] Other Provider Active Start: September 24, 2023 Reginald Tang MD Attending Pr ovider, Other Provider Active Start: September 24, 2023 John Rodriguez MD Other Provider Active St art: September 24, 2023 Martin Dorado MD Other Provider Active Start: M ay 2023 Quintin Holt DO Other Provider Active Start: September 24, [...] tart: September 25, 2023 Heide Alston APRN [facility] Other Provider Active Start: September 25, 2023 Reginald Tang MD Other Provider Active Start: September 25, 2023 John Rodriguez MD Other Provider Active St art: September 25, 2023 Martin Dorado MD Other Provider Active Start: M ay 2023 Quintin Holt DO Other Provider Active Start: September 25, [...] Other Provider Active Start: September 25, 2023 Cut To Length Operator Relationship Specialty Start Date End Date Uriel Nunez MD PCP - General Family Medicine 01/02/11 Cut To Length Operator Relationship Specialty Start Date End Date Uriel Nunez MD PCP - General Family Medicine 01/02/11 Cut To Length Operator Relationship Specialty Start Date End Date Uriel Nunez MD PCP - General Family Medicine 01/02/11 Cut To Length Operator Relationship Specialty Start Date End Date Uriel Nunez MD PCP - General Family Medicine 01/02/11 Cut To Length Operator Relationship Specialty Start Date End Date Uriel Nunez MD PCP - General Family Medicine 01/02/11 Cut To Length Operator Relationship Specialty Start Date End Date Uriel Nunez MD PCP - General Family Medicine 01/02/11 Cut To Length Operator Relationship Specialty Start Date End Date Uriel Nunez MD PCP - General Family Medicine 01/02/11 Cut To Length Operator Relationship Specialty Start Date End Date Uriel Nunez MD [address] [place] [address] PCP - General Family Medicine 10/21/22 Cut To Length Operator Relationship Specialty Start Date End Date Uriel Nunez MD [address] [place] [address] PCP - General Family Medicine 10/21/22 Cut To Length Operator Relationship Specialty Start Date End Date Uriel Nunez MD [address] [place] [address] PCP - General Family Medicine 10/21/22 Cut To Length Operator Relationship Specialty Start Date End Date Uriel Nunez MD PCP - General Family Medicine 01/02/11 Cut To Length Operator Relationship Specialty Start Date End Date Uriel Nunez MD PCP - General Family Medicine 01/02/11 Cut To Length Operator Relationship Specialty Start Date End Date Uriel Nunez MD PCP - General Family Medicine 01/02/11 Cut To Length Operator Relationship Specialty Start Date End Date Uriel Nunez MD PCP - General Family Medicine 01/02/11 Cut To Length Operator Relationship Specialty Start Date End Date Uriel Nunez MD PCP - General Family Medicine 01/02/11 Cut To Length Operator Relationship Specialty Start Date End Date Uriel Nunez MD PCP - General Family Medicine 01/02/11 Cut To Length Operator Relationship Specialty Start Date End Date Uriel Nunez MD [address] [place] [address] PCP - General Family Medicine 10/21/22 Cut To Length Operator Relationship Specialty Start Date End Date Uriel Nunez MD [address] [place] [address] PCP - General Family Medicine 10/21/22 Cut To Length Operator Relationship Specialty Start Date End Date Uriel Nunez MD PCP - General Family Medicine 01/02/11 Cut To Length Operator Relationship Specialty Start Date End Date Uriel Nunez MD PCP - General Family Medicine 01/02/11 Cut To Length Operator Relationship Specialty Start Date End Date Uriel Nunez MD PCP - General Family Medicine 01/02/11 Cut To Length Operator Relationship Specialty Start Date End Date Uriel Nunez MD [address] [place] [address] PCP - General Family Medicine 10/21/22 Cut To Length Operator Relationship Specialty Start Date End Date Uriel Nunez MD PCP - General Family Medicine 01/02/11 Cut To Length Operator Relationship Specialty Start Date End Date Uriel Nunez MD [address] [place] [address] PCP - General Family Medicine 10/21/22 Cut To Length Operator Relationship Specialty Start Date End Date Uriel Nunez MD PCP - General Family Medicine 01/02/11 Cut To Length Operator Relationship Specialty Start Date End Date Uriel Nunez MD PCP - General Family Medicine 10/01/21 Cut To Length Operator Relationship Specialty Start Date End Date Uriel Nunez MD PCP - General Family Medicine 10/01/21 Cut To Length Operator Relationship Specialty Start Date End Date Uriel Nunez MD PCP - General Family Medicine 01/02/11 Cut To Length Operator Relationship Specialty Start Date End Date Uriel [...] BE BASED ON THE PRIMARY CLINICAL RECORDS. [facility]. provides no warranty or guarantee of the accuracy or completeness of information in this document.
[2024-09-25 02:57] VITALS: BP 168/106; PULSE 96; TEMP 36.5; O2SAT 98
--- NOTE | 2024-09-25 03:22 | ED.GENADUL1 ---
HPI HPI - General Adult General Chief complaint: Recheck/Abnormal Lab/Rx Stated complaint: IMPLANT PROBLEMS Time Seen by Provider: 09/25/24 03:09 Source: patient Mode of arrival: walk-in Limitations: no limitations History of Present Illness HPI narrative: patient states history of epilepsy. Has vagal nerve stimulator in place to control his seizures. 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 He covered the stimulator with a magnet and his symptoms resolved. States he contacted [facility] and was advised to come to the ER here. He feels well now but anxious that he may have a seizure. States he takes Lyrica and Ativan for his seizures. No othe complaint at this time. Extensive mental health history including bipolar, PTSD and anxiety states this current vagus nerve stimulator was placed 07/2023 Related Data Home Medications ?Medication ?Instructions ?Recorded ?Confirmed Phenergan 25 mg PO TID PRN nausea and 12/04/22 09/25/24 vomiting clonazepam 2 mg tablet 2 mg PO TID 12/05/22 07/11/23 cyproheptadine 4 mg tablet 4 mg PO Q12H 12/05/22 07/11/23 lacosamide 100 mg tablet 100 mg PO Q12H 12/05/22 07/11/23 quetiapine 50 mg tablet 50 mg PO TID PRN anxiety 12/05/22 07/11/23 rizatriptan 10 mg disintegrating See Rx Instructions PO .COMPLEX 12/05/22 07/11/23 tablet (Maxalt-ELEVATOR ATTENDANT) sertraline 100 mg tablet 200 mg PO Q24H 12/05/22 07/11/23 simvastatin 20 mg tablet 20 mg PO DAILY 12/05/22 07/11/23 albuterol sulfate 90 mcg/actuation 1 inh inhalation Q4H PRN shortness 01/19/23 09/25/24 aerosol inhaler of breath or wheezing fluticasone propionate 50 1 spray intranasal Q12H 01/19/23 09/25/24 mcg/actuation nasal spray,suspension diclofenac sodium 75 mg 75 mg PO Q12H PRN pain 03/29/23 07/11/23 tablet,delayed release erenumab-aooe 140 mg/mL 140 mg subcut .MONTHLY 03/29/23 09/25/24 subcutaneous auto-injector (Aimovig Autoinjector) quetiapine 300 mg tablet 300 mg PO .QHS 03/29/23 07/11/23 lurasidone 40 mg tablet 80 mg PO DAILY 05/22/23 07/11/23 Klonopin 2 mg PO TID 09/25/24 09/25/24 cetirizine 10 mg tablet (24Hour 10 mg PO DAILY PRN allergy symptoms 09/25/24 09/25/24 Allergy) clonidine HCl 0.1 mg tablet 0.1 mg PO DAILY 09/25/24 09/25/24 diclofenac sodium 75 mg 75 mg PO DAILY 09/25/24 09/25/24 tablet,delayed release erenumab-aooe 140 mg/mL 140 mg subcut .monthly 09/25/24 09/25/24 subcutaneous auto-injector (Aimovig Autoinjector) ibuprofen 800 mg tablet (IBU) 800 mg PO Q8H PRN fever or pain 09/25/24 09/25/24 lacosamide 100 mg tablet (Vimpat) 100 mg PO Q12H 09/25/24 09/25/24 lorazepam 1 mg tablet (Ativan) 1 mg PO DAILY PRN seizure 09/25/24 09/25/24 lurasidone 80 mg tablet (Latuda) 80 mg PO DAILY 09/25/24 09/25/24 nadolol 80 mg tablet (Corgard) 80 mg PO DAILY 09/25/24 09/25/24 quetiapine 200 mg tablet (Seroquel) 100 mg PO DAILY 09/25/24 09/25/24 quetiapine 50 mg tablet (Seroquel) 50 mg PO TID PRN anxiety 09/25/24 09/25/24 rizatriptan 10 mg tablet (Maxalt) See Rx Instructions PO .COMPLEX 09/25/24 09/25/24 sertraline 100 mg tablet (Zoloft) 300 mg PO DAILY 09/25/24 09/25/24 simvastatin 20 mg tablet (Zocor) 20 mg PO DAILY 09/25/24 09/25/24 Previous Rx's ?Medication ?Instructions ?Recorded acetaminophen 300 mg-codeine 30 mg 1 tab PO Q6H PRN pain 3 days #14 05/22/23 tablet tabs Allergies Allergy/AdvReac Type Severity Reaction Status Date / Time desvenlafaxine (From [employer]) Allergy Unknown SEIZURE Verified 09/25/24 03:03 keppra Allergy Unknown Unknown Uncoded 09/25/24 03:03 Opioid HPI Opioid Management Most Recent Opioid Data: Last Pain Scale 8 02/23/23, 23:00 Ur Phencyclidine Scrn, (NEGATIVE) Negative 03/29/23, 11:15 Review of Systems ROS Status of ROS 10 or more systems reviewed and unremarkable except as noted in history and below [facility] Medical History (Updated 09/25/24 @ 04:53 by Ankush Bradford MD) PTSD (post-traumatic stress disorder) ?F43.10 - Post-traumatic stress disorder, unspecified (ICD-10) Migraine ?G43.909 - Migraine, unspecified, not intractable, without status migrainosus (ICD-10) HIMA (obstructive sleep apnea) ?G47.33 - Obstructive sleep apnea (adult) (pediatric) (ICD-10) Insomnia ?G47.00 - Insomnia, unspecified (ICD-10) GERD (gastroesophageal reflux disease) ?K21.9 - Gastro-esophageal reflux disease without esophagitis (ICD-10) Suicidal ideation ?R45.851 - Suicidal ideations (ICD-10) Bipolar 1 disorder ?F31.9 - Bipolar disorder, unspecified (ICD-10) Anxiety ?F41.9 - Anxiety disorder, unspecified (ICD-10) Respiratory failure requiring intubation ?J96.90 - Respiratory failure, unspecified, unspecified whether with hypoxia or hypercapnia (ICD-10) Depression ?F32.A - Depression, unspecified (ICD-10) Epilepsy ?G40.909 - Epilepsy, unspecified, not intractable, without status epilepticus (ICD-10) Surgical History 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 ?Z96.89 - Presence of other specified functional implants (ICD-10) Social History Smoking status: Never smoker Little interest or pleasure in doing things: not at all Feeling down, depressed, or hopeless: not at all Exam Constitutional Vital Signs, click to edit/add: Last Vital Signs Temp 98.5 F 09/25/24 06:16 Pulse 76 09/25/24 06:16 Resp 16 09/25/24 06:16 BP 144/88 H 09/25/24 06:16 Pulse Ox 96 09/25/24 06:16 O2 Del Method Room Air 09/25/24 06:16 Common normals: no apparent distress, average body habitus, oriented x3, no limitations, healthy appearing, alert and well nourished [facility] Common normals: normocephalic and head/scalp atraumatic Eye Common normals: EOMs intact bilaterally Respiratory Common normals: normal respiratory effort, no retractions, no use of accessory muscles and clear to auscultation bilaterally Cardio Common normals: regular rate, regular rhythm, S1 normal heart sound and S2 normal heart sound GI Common normals: Normal to inspection, nondistended, normoactive bowel sounds present, soft to palpation and non-tender Extremity Common normals: normal to inspection and full ROM Neuro Common normals: oriented x3, CN's II-XII intact bilaterally, moves all extremities and no focal motor deficits Psych Appearance: grossly normal Course Vital Signs Vital signs: Vital Signs Temperature 97.7 F 09/25/24 02:57 Pulse Rate 96 H 09/25/24 02:57 Respiratory Rate 20 09/25/24 02:57 Blood Pressure 168/106 H 09/25/24 02:57 Pulse Oximetry 98 09/25/24 02:57 Oxygen Delivery Method Room Air 09/25/24 02:57 Temperature 98.5 F 09/25/24 06:16 Pulse Rate 76 09/25/24 06:16 Respiratory Rate 16 09/25/24 06:16 Blood Pressure 144/88 H 09/25/24 06:16 Pulse Oximetry 96 09/25/24 06:16 Oxygen Delivery Method Room Air 09/25/24 06:16 Medical Decision Making [facility] Narrative Medical decision making narrative: patient presents with complaint of malfunction of his vagus nerve stimulator manifested by difficulty breathing. He has a magnet over the device that disables it. Discussed with [facility] and he is accepted for transfer Lab Data Labs: Lab Results 09/25/24 Range/Units 03:55 WBC 12.6 H (4.0-11.0) 10^3/uL RBC 5.60 (4.70-6.10) 10^6/uL Hgb 16.5 (14.0-18.0) g/dL Hct 48.5 (42.0-54.0) % MCV 86.6 (80.0-94.0) fL MCH 29.5 (25.9-34.0) pg MCHC 34.0 (29.9-35.2) g/dL RDW 12.6 (11.0-15.0) % Plt Count 372 (150-450) 10^3/uL MPV 9.5 (9.5-13.5) fL Neut % (Auto) 66.5 (43.0-75.0) % Lymph % (Auto) 24.9 (20.5-60.0) % [place] % (Auto) 6.4 (1.7-12.0) % Eos % (Auto) 1.0 (0.9-7.0) % Baso % (Auto) 0.6 (0.2-2.0) % Neut # (Auto) 8.4 H (1.4-6.5) 10^3/uL Lymph # (Auto) 3.1 (1.2-3.8) 10^3/uL [place] # (Auto) 0.8 (0.3-0.8) 10^3/uL Eos # (Auto) 0.1 (0.0-0.7) 10^3/uL Baso # (Auto) 0.1 (0.0-0.1) 10^3/uL Abs Immat Gran (auto) 0.08 H (0.00-0.03) 10^3/uL Imm/Tot Granulo (auto) 0.6 H (0.0-0.5) % Sodium 137 (136-145) mmol/L Potassium 5.1 (3.5-5.1) mmol/L Chloride 99 (98-107) mmol/L Carbon Dioxide 34.2 H (21.0-32.0) mmol/L Anion Gap 8.9 BUN 13.0 (7.0-18.0) mg/dL Creatinine 0.81 (0.70-1.30) mg/dL Est GFR ( Amer) >60 (>=60 mL/min/1.73m^2) Est GFR (Non-Af Amer) >60 (>=60 mL/min/1.73m^2) BUN/Creatinine Ratio 16.0 Glucose 102 (74-106) mg/dL Calcium 9.7 (8.5-10.1) mg/dL Discharge Plan Discharge Chief Complaint: Recheck/Abnormal Lab/Rx Clinical Impression: Complication associated with vagal nerve stimulator Patient Disposition: [facility] Discharge Date/Time: 09/25/24 08:41
[2024-09-25 04:01] LABS: Basophils Absolute Auto 0.1 10^3/uL (0.0-0.1); Basophils Percent Auto 0.6 % (0.2-2.0); Eosinophils Absolute Auto 0.1 10^3/uL (0.0-0.7); Hematocrit 48.5 % (42.0-54.0); Hemoglobin 16.5 g/dL (14.0-18.0); Immature Granulocytes Abs Auto 0.08 10^3/uL (0.00-0.03); Immature Granulocytes Pct Auto 0.6 % (0.0-0.5); Lymphocytes Absolute Auto 3.1 10^3/uL (1.2-3.8); Lymphocytes Percent Auto 24.9 % (20.5-60.0); Mean Corpuscular Hemoglobin 29.5 pg (25.9-34.0); Mean Corpuscular Volume 86.6 fL (80.0-94.0); Mean Platelet Volume 9.5 fL (9.5-13.5); Monocytes Absolute Auto 0.8 10^3/uL (0.3-0.8); Monocytes Percent Auto 6.4 % (1.7-12.0); Neutrophils Absolute Auto 8.4 10^3/uL (1.4-6.5); Neutrophils Percent Auto 66.5 % (43.0-75.0); Platelet Count 372 10^3/uL (150-450); Red Cell Distribution Width 12.6 % (11.0-15.0); White Blood Count 12.6 10^3/uL (4.0-11.0)
[2024-09-25 04:10] LABS: Anion Gap 8.9; Calcium 9.7 mg/dL (8.5-10.1); Carbon Dioxide 34.2 mmol/L (21.0-32.0); Chloride 99 mmol/L (98-107); Estimated GFR (African America >60 (>=60 mL/min/1.73m^2); Estimated GFR (Non-African Ame >60 (>=60 mL/min/1.73m^2); Glucose 102 mg/dL (74-106); Potassium 5.1 mmol/L (3.5-5.1); Sodium 137 mmol/L (136-145)
[2024-09-25] MEDS: LORAZEPAM 1 MG TABLET PO (04:42)
[2024-09-25 04:56] VITALS: BP 160/90; PULSE 84; O2SAT 98
[2024-09-25 06:16] VITALS: BP 144/88; PULSE 76; TEMP 36.9; O2SAT 96
--- NOTE | 2024-09-25 08:23 | PC.NURSE ---
[facility] here for pt transport
== END 2024-09-25 08:41 | disposition short-term general hospital (02) ==
PROVIDERS: Emergency Provider Internal Medicine; PCP Family Medicine
DX: T85.695A Other mechanical complication of other nervous system device, implant or graft, initial encounter (principal); R56.9 Unspecified convulsions; Z79.899 Other long term (current) drug therapy; R06.9 Unspecified abnormalities of breathing
CPT/HCPCS: 36415; 80048; 85025; 99285

== ENCOUNTER 2025-02-14 04:32 | Emergency (ER) | payer MEDICARE, MEDICAID, SELFPAY ==
--- OUTSIDE RECORDS SUMMARY | 2024-04-05 05:15 | XMS_ITS ---
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 Samir Arambula Unavailable [phone] REASON FOR VISIT FILLING Encounters Encounter Location Date Provider Diagnosis [facility] [address] [place] [address] 04/05/2024 Samir Arambula Plan Of Treatment Next Appt Details Provider Name:Jessica Morales, 06/27/2025 02:00:00 PM, [address], [place], [address], Provider Name:Jessica Morales, 07/04/2025 02:00:00 PM, [address], [place], [address], Progress Notes * AMEYA MEZA WDOB:1980 (44 yo M)Acc No.[id number]:04/05/2024 Patient: Sonja CHAWLA AMEYA Morales Provider: Kris Arambula DDS :1980 A ge:43 Y S ex:Male Date:04/05/2024 Address:[address] [place], [place] [id number] Pcp:Leatha Weiner Subjective: * Chief Complaints: * 1 . FILLING. * Medical History: Objective: * Vitals: Assessment: Plan: * Treatment: * Images: * Electronic signature of Dr. Samir Arambula , DMD on 02/14/2025 at 04:39 AM EDT Sign off status: Pending * Provider: Kris Arambula DDS Date: 1 06/05/2023 Generated for Ricardo khan/Dony/Petra on: 0 02/14/2025 04:39 AM EDT
--- OUTSIDE RECORDS SUMMARY | 2025-01-19 11:00 | XMS_ITS ---
Author Name Auto Generated Organization OHIP Care Team Providers Care Electronic Imaging System Operator Name Role Phone ALEM MOELLER Attending Unavailable UNALLOCATED, NOMS PROVIDER Referring Unava ilable AMRILU, PAOLA Díza Referring Unavailable HILLS, PAOLA Díaz Referring Unavailable HILLS, PAOLA D Attending Unavailable HILLS, PAOLA D Referring Unavailable HILLS, PAOLA D Attending Unavailable MARILU, PAOLA D Referring Unavailable Taiwo Trujillo Attending Unavailab Taiwo Quigley Admitting Unavailab le Erlinda Nunez Primary Care Unavailable ERILNDA NUNEZ M Primary Care Unavailable KRZYSZTOF, KRZYSZTOF E Referring Unavailable KRZYSZTOF, KRZYSZTOF E Attending Unavailable KRZYSZTOF, KRZYSZTOF E Admitting Unavailable KIKO DO Attending Unavailable ERLINDA NUNEZ M Primary Care Unavailable KEVNI STERN Referring Unavailable GOKUL JOYCE Admitting Unavailable HOY, ERLINDA M Primary Care Unavailable KANIKA BENNETT Attending Unavailable ENRIQUE ERLINDA M Primary Care Unavailable KRZYSZTOF, KRZYSZTOF E Referring Unavailable NADIRA PURDY Attending Unavailable ALEXANDERY, ERLINDA M Primary Care Unavailable JODI BOSS Attending Unavailable ENRIQUE ERLINDA M Primary Care Unavailable JODI BOSS Referring Unavailable HOY, ERLINDA M Primary Care Unavailable KRZYSZTOF, KRZYSZTOF E Referring Unavailable HOY, ERLINDA M Primary Care Unavailable SOBEIDA GALVAN Attending Unavailable HOJesus, ERLINDA M Primary Care Unavailable KRZYSZTOF, KRZYSZTOF E Attending Unavailable HOY, ERLINDA M Primary Care Unavailable SELF Referring Unavailable HERNANDEZ BROOKE, SOBEIDA P Attending Unavailable HOY, ERLINDA M Primary Care Unavailable HERNANDEZ BROOKE, SOBEIDA P Attending Unavailable HOY, ERLINDA M Primary Care Unavailable SELF Referring Unavailable HERNANDEZ KREW, SOBEIDA P Attending Unavailable HOY, ERLINDA M Primary Care Unavailable HERNANDEZ SISSYW, SOBEIDA P Referring Unavailable KRZYSZTOF, KRZYSZTOF E Attending Unavailable HOY, ERLINDA M Primary Care Unavailable KRZYSZTOF, KRZYSZTOF E Referring Unavailable NADIRA PURDY Attending Unavailable HOY, ERLINDA M Primary Care Unavailable KRZYSZTOF, KRZYSZTOF E Referring Unavailable KRZYSZTOF, KRZYSZTOF E Attending Unavailable KRZYSZTOF, KRZYSZTOF E Admitting Unavailable KRZYSZTOF, KRZYSZTOF E Admitting Unavailable KRZYSZTOF, KRZYSZTOF E Attending Unavailable HOY, ERLINDA M Primary Care Unavailable PROBLEMS DATE TYPE CONDITION / CODE ATTENDING STATUS [facility] 09/02/2021 Active Partial epilepsy with impairment of consciousness, intractable (HCC) / G40.219(ICD-10) KANIKA BENNETT Active [facility] 09/26/2024 Active 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 / Z96.89(ICD-10) KIKO DO Active [facility] 08/17/2024 Active Lumbosacral spon dylosis without myelopathy / M47.817(ICD-10) KRZYSZTOF BLANKENSHIP E Active [facility] 08/17/2024 Active Degeneration of intervertebral disc of lumbar region with discogenic back pain / M51.360(ICD-10) KRZYSZTOF BLANKENSHIP E Active [facility] 05/27/2024 Active Neck pain / M54.2(ICD-10) NA Active [facility] 05/24/2024 Active Spinal stenosis of lumbar region without neurogenic claudication / M48.061(ICD-10) NA Active [facility] PROCEDURES No Procedure Records Found RESULTS CNPN Observed: 11/14/2024 12:00 AM Status: COMPLETED Source: [facility] Telephone (NE50MN) SUSANAMANJITBISHNU Carmen ([id number]) 1980 M Date Time Provider Department 11/14/24 LINO MENDIOLA NE50MN During your visit today, we recorded the following information about you: Joann Adm ContrerasViviane small 11/14/2024 4:18 PM Signed General call : Full name of person calling: Bishnu Coles Relationship to patient: self Phone # : [phone] Reason for call: Patient states his voice has not recovered since VNS implanted 8 weeks [address] Patient of Dr. Mendiola/Dayan Coyle RN 11/15/2024 8:[address] Do: 09/26/2024: Left replacement of Vagal nerve stimulator electrode Left voicemail for pt. To return call NICHOLAS Ramirez Yu Song 11/15/2024 12:19 PM Signed Bishnu Coles returned call to NICHOLAS Murphy. Patient awaiting call back at [phone] Geovanna Ruth RN 11/15/2024 1:34 PM Signed Spoke with Bishnu is having problems with maintaining a normal voice happens mostly at work when talking constantly/or at the endo of the day and when he would try to yell at the kids it comes out like a whisper. Needs to keep sucking on mints, drinking orange juice or milk helps more than water. reviewed post op visit never completed reviewed available times starting with tomorrow and accepted December 01, 2024 at 1 pm as his only available time. message sent to schedule routed for review/recommendations NICHOLAS Falk Morgan, PA-C 11/15/2024 1:45 PM Signed He can have a virtual visit with me on 12/01, no need for in person appt unless he prefers to come in person. Recommend referral to ENT for further workup of vocal issues. Order placed. Geovanna Ruth RN 11/15/2024 2:02 PM Signed Spoke with Bishnu would rather have VV with ELIJAH has appointment line and will call and make appointment with ENT Geovanna Ruth RN Allergies As of Date: 11/14/2024 Noted Allergy Reaction KEPPRA (LEVETIRACETAM) 07/31/2010 14 - Other: See Comments Comments: Increases his ADHD KETOROLAC TROMETHAMINE 09/14/2016 16 - Unknown Comments: unknown PRISTIQ (DESVENLAFAXINE) 01/12/2014 14 - Other: See Comments Comments: sz Date Reviewed: 10/13/2024 Reviewed by: Kanika Bennett APRN.WAREHOUSE RECEIVER - Fully Assessed Reason for Visit: General [Other] Cmt: VNS - Voice Has Not Recovered Primary Visit Diagnosis:Hoarseness of voice [R49.0] Other Visit Diagnosis: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 [Z96.89] Order(s):CONSULT TO ENT [9008] Order #: [id number]: 1 FUTURE Prescriptions as of 11/15/2024 - acetaminophen (TYLENOL) 325 mg tablet 2 tablets by ORAL/FEEDING TUBE route every 4 hours as needed for pain or fever (specify temp.). - methocarbamol (ROBAXIN) 500 mg tablet Take 1 tablet by mouth three times a day as needed first line for muscle spasm or jaw pain - cloNIDine HCl (CATAPRES) 0.1 mg tablet Take 0.1 mg in the morning and 0.2 mg at night - clonazePAM (KLONOPIN) 2 mg tablet Take 1 tablet by mouth three times a day for 90 days. - lacosamide (VIMPAT) 100 mg tab Take 1 tablet by mouth every 12 hours for 90 days. - rizatriptan (MAXALT MANAGER FITNESS) [address] 1 TABLET [...] BY MOUTH EVERY DAY WITH BREAKFAST - lurasidone (LATUDA) 80 mg tablet TAKE 1 TABLET BY MOUTH DAILY WITH DINNER *LOWER THE SEROQUEL TO 100 MG IN THE EVENING* - AIMOVIG AUTOINJECTOR 140 mg/mL auto-injector INJECT 1ML SUBCUTANEOUSLY EVERY MONTH - simvastatin (ZOCOR) 20 mg tablet Take 20 mg by mouth every evening. - promethazine (PHENERGAN) 25 mg tablet 1 po tid prn headache or nausea - QUEtiapine (SEROQUEL) 50 mg tablet take 1 tablet by mouth three times daily as needed for anxiety - benzocaine-menthol (CEPACOL) 15-3.6 mg lozg Use 1 Lozenge as instructed every 2 hours as needed. - CPAP Change the pressure of autoBipap with EPAP 5-15 mh2o and PS 4-8cmh2O. His DME company is [employer] mask to fit patient preference, ramp, humidification and unlimited supplies Please send us machine download in 1 month - CPAP Please send us machine download in 1 month - Cetirizine 10 mg cap Take 1-2 tablets by mouth as needed. - fluticasone (FLONASE) 50 mcg/actuation nasal spray Use 1 [place] in each nostril twice daily. - albuterol HFA (PROVENTIL HFA, VENTOLIN HFA) 90 mcg/actuation inhaler Inhale 1-2 Puffs as instructed as needed for Wheezing/Shortness of Breath. 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 Author Type: Physician Type: Progress Notes Filed: 10/19/2024 11:19 Note Text: NO SHOW CNOV Observed: 10/13/2024 9:30 AM Status: COMPLETED Source: [facility] Office Visit (NE50MN) BISHNU COLES ([id number]) 1980 M Date Time Provider Department 10/13/24 9:30 AM KANIKA BENNETT NE50MN During your visit today, we recorded the following information about you: Pulse Blood pressure Weight Height 98/minute 138/92 95.3 kg 1.778 m Kanika Bennett APRN.CNP 10/13/2024 12:47 PM Signed [facility] EPILEPSY CENTER CHIEF COMPLAINT: seizures HISTORY OF PRESENT ILLNESS: Bishnu Coles is a 44 year old male with history of medically intractable epilepsy since age 5 s/p replacement of left VNS generator and re-tunneling of left vagal nerve electrode on 08/31/23, as well as 09/25/[address] Do who presents for VNS interrogation/adjustment. He is a patient of Dr. Lino Mendiola, last seen by myself on 11/03/2023, and as above, most recently by Dr. Do during admission to [facility] 09/25/2024 for VNS reimplantation. No seizures since last visit, last 2012. He remains on LCM 100 mg BID and KLP 2 mg TID. He notes anxiety recently, following w/ Dr. Hernandez. He is following w/ pain mgmt for chronic back pain, recently had L5-S1 ablation. Reports feeling better since procedure. Notes ongoing migraines, plans to discuss w/ DANIEL team. He works at [employer]. VNS returned to previous settings, patient tolerated well. AspireSR M106 S/N: [id number] Implant Date: 09/26/2024 Lead impedence: [place], 2293 Ohms Battery: 75-100% Output current 0.25 mAmps >> 1.625 Signal frequency 20 Hz >> 25 Pulse width 250 msec >> 500 Signal on time 30 sec Signal off time 5 min >> 0.8 minutes Duty Cycle: 44% Magnet current 1.875 mAmps Magnet on time 60 sec Magnet pulse width 500 msec Per Miquel Purdy CNP 05/24/2024: VNS Stimulation Interrogation VNS Information VNS Model Number SenTiva [id number] VNS Serial Number [id number] Date of Implantation August 31, 2023 Stimulation [...] well. To return for reprogramming after imaging Notes from VV 11/03/2023: Visit was initially scheduled in person for [...] or anyone else. Following up with Dr. Pimentel. Sleep: Stable 6-8 hours Notes from OV 04/10/23: He has not had any definite seizures since our last visit (His last GTC was in 2012). He has episodes of confusion and anxiety that he attributes to panic attacks. He has been working with Dr. Pimentel for various issues . He attempted suicide [...] or problems with the image (Done at [facility] and not available for review). His VNS is working well on his current evaluation today. He has a history of anxiety, obstructive sleep apnea, migraines and medically intractable left temporal lobe epilepsy, diagnosed in 2004 at [facility]. He did not want to pursue surgery at that time due to concerns of memory decline and had a VNS implanted. He has had multiple revisions, the last of which was in 01/2013 at [place]. He feels that his VNS has stopped working because his auras have returned, but his battery is at 75%. His PCP Dr. Nunez who has been managing his epilepsy locally referred him back to [facility] to discuss further options. He is open to a repeat presurgical evaluation at this time. Last reported seizure was 2012. ? CURRENT OUTPATIENT MEDICATIONS: Current Outpatient Medications Medication Sig acetaminophen (TYLENOL) 325 mg tablet 2 tablets by ORAL/FEEDING TUBE route every 4 hours as needed for pain or fever (specify temp.). methocarbamol (ROBAXIN) 500 mg tablet Take 1 tablet by mouth three times a day as needed first line for muscle spasm or jaw pain cloNIDine HCl (CATAPRES) 0.1 mg tablet Take 0.1 mg in the morning and 0.2 mg at night Blood Pressure Monitor 1 each two times a day. clonazePAM (KLONOPIN) 2 mg tablet Take 1 tablet by mouth three times a day for 90 days. lacosamide (VIMPAT) 100 mg tab Take 1 tablet by mouth every 12 hours for 90 days. rizatriptan (MAXALT MANAGER FITNESS) [address] 1 TABLET ON TONGUE AND ALLOW TO DISSOLVE NEEDED AT ONSET OF HEADACHE. MAY REPEAT AFTER 2 HOURS. DO NOT EXCEED 30MG PER DAY sertraline (ZOLOFT) 100 mg tablet TAKE 3 TABLETS BY MOUTH ONCE DAILY QUEtiapine (SEROQUEL) 200 mg tablet TAKE 1 TABLET BY MOUTH EVERY NIGHT AT BEDTIME lurasidone (LATUDA) 20 mg tablet TAKE 1 TABLET BY MOUTH EVERY DAY WITH BREAKFAST lurasidone (LATUDA) 80 mg tablet TAKE 1 TABLET BY MOUTH DAILY WITH DINNER *LOWER THE SEROQUEL TO 100 MG IN THE EVENING* AIMOVIG AUTOINJECTOR 140 mg/mL auto-injector INJECT 1ML SUBCUTANEOUSLY EVERY MONTH simvastatin (ZOCOR) 20 mg tablet Take 20 mg by mouth every evening. promethazine (PHENERGAN) 25 mg tablet 1 po tid prn headache or nausea QUEtiapine (SEROQUEL) 50 mg tablet take 1 tablet by mouth three times daily as needed for anxiety benzocaine-menthol (CEPACOL) 15-3.6 mg lozg Use 1 Lozenge as instructed every 2 hours as needed. CPAP Change the pressure of autoBipap with EPAP 5-15 mh2o and PS 4-8cmh2O. His DME company is [employer] , new mask to fit patient preference, ramp, humidification and unlimited supplies Please send us machine download in 1 month CPAP Please send us machine download in 1 month Cetirizine 10 mg cap Take 1-2 tablets by mouth as needed. fluticasone (FLONASE) 50 mcg/actuation nasal spray Use 1 [place] in each nostril twice daily. albuterol HFA (PROVENTIL HFA, VENTOLIN HFA) 90 mcg/actuation inhaler Inhale 1-2 Puffs as instructed as needed for Wheezing/Shortness of Breath. No current facility-administered medications for this visit. NEUROLOGICAL EXAM: nonfocal PREVIOUS EVALUATIONS: Video EEG, [facility], 09/20/2020: Mr. Bishnu Trevizo is a 39 year oldA rightA handed male with PMH of anxiety, HIMA,A Bipolar II (follows with Dr. Chi),A migraines and left temporal lobe epilepsy (diagnosed in 2004-A He did not want to pursue surgery at that time due to concerns of memory decline and had a VNS implanted).A Establihsed care of Dr. Mendiola, he was last seen byMichael Rubin APRN on 08/16/2020 for a BMV form. Mr. Coles required VNS battery replacements frequently, most recently on 06/28/20.A Since that time Mr. Coles denies any concerns until 09/19/20 when he suddenly began feeling a painful electrical sensation localized to his left neck, as well as his throat closing. When the VNS is off (he taped magnet over generator) the pain completely resolves. He presented to an OSH ED this AM and was transferred to the EMU for VNS interrogation and workup.A On arrival to the EMU VNS was interrogated and turned off, Of concern, a diagnostic report indicated LOW output and HIGH impedance.A He was taken to OR 09/20/2020 for complete VNS system replacement. A During this 24 hours stay in EMU, his EEG during awake and asleep states were within normal limits. No epileptiform discharges, events or seizures. A Plan to continue home ASM's: LCM 200mg BID, KLP 2mg TID, and to follow up with primary epileptologist as an outpatient. Brain MRI, [facility], 09/26/2015: Stable appearance of the brain demonstrates two tiny punctate foci of abnormal FLAIR signal within the right cerebellar hemisphere. Otherwise, no structural/morphologic abnormality ? ASSESSMENT: Bishnu Coles is a 44 year old male with an evaluation suggestive [...] attacks. He has been working with Dr. Pimentel for various issues . He attempted suicide [...] or problems with the image (Done at [facility] and not available for review). His VNS is working well on his current evaluation today. 08/03/23 update: Patient denies any seizure activity since 2012. Currently taking Vimpat 100 mg BID and KLP 2 mg TID. Denies side effects. VNS is working well today on his current evaluation. This was interrogated by Robby Moreno PA-C and showed a [...] inquires on whether dose should be increased. 10/13/2024: no seizures since last visit. Presents today to have VNS adjusted to return to previous settings, as above. Classification Summary I discussed the risks, benefits and alternatives of the medical plan with the patient. Questions were answered. The patient agreed with the plan as discussed. ? PLAN: - VNS adjusted as above - continue LCM 100 mg BID and KLP 2 mg TID - follow up in [address] Mendiola A total of 30 minutes was spent during the visit with greater than 50% of the time spent counseling and coordinating care of the above plan, discussing [...] the patient's questions. ? Kanika Bennett APRN.CNP October 13, 2024 Allergies As of Date: 10/13/2024 Noted Allergy Reaction KEPPRA (LEVETIRACETAM) 07/31/2010 14 - Other: See Comments Comments: Increases his ADHD KETOROLAC TROMETHAMINE 09/14/2016 16 - Unknown Comments: unknown PRISTIQ (DESVENLAFAXINE) 01/12/2014 14 - Other: See Comments Comments: sz Date Reviewed: 10/13/2024 Reviewed by: Kanika Bennett APRN.ENZO - Fully Assessed Reason for Visit: Established Patient [175] Follow Up [171] Primary Visit Diagnosis:Partial epilepsy with impairment of consciousness, intractable (HCC) [G40.219] Prescriptions as of 10/13/2024 - acetaminophen (TYLENOL) 325 mg tablet 2 tablets by ORAL/FEEDING TUBE route every 4 hours as needed for pain or fever (specify temp.). - methocarbamol (ROBAXIN) 500 mg tablet Take 1 tablet by mouth three times a day as needed first line for muscle spasm or jaw pain - cloNIDine HCl (CATAPRES) 0.1 mg tablet Take 0.1 mg in the morning and 0.2 mg at night - Blood Pressure Monitor 1 each two times a day. - clonazePAM (KLONOPIN) 2 mg tablet Take 1 tablet by mouth three times a day for 90 days. - lacosamide (VIMPAT) 100 mg tab Take 1 tablet by mouth every 12 hours for 90 days. - rizatriptan (MAXALT MANAGER FITNESS) [address] 1 TABLET [...] BY MOUTH EVERY DAY WITH BREAKFAST - lurasidone (LATUDA) 80 mg tablet TAKE 1 TABLET BY MOUTH DAILY WITH DINNER *LOWER THE SEROQUEL TO 100 MG IN THE EVENING* - AIMOVIG AUTOINJECTOR 140 mg/mL auto-injector INJECT 1ML SUBCUTANEOUSLY EVERY MONTH - simvastatin (ZOCOR) 20 mg tablet Take 20 mg by mouth every evening. - promethazine (PHENERGAN) 25 mg tablet 1 po tid prn headache or nausea - QUEtiapine (SEROQUEL) 50 mg tablet take 1 tablet by mouth three times daily as needed for anxiety - benzocaine-menthol (CEPACOL) 15-3.6 mg lozg Use 1 Lozenge as instructed every 2 hours as needed. - CPAP Change the pressure of autoBipap with EPAP 5-15 mh2o and PS 4-8cmh2O. His DME company is [employer] , new mask to fit patient preference, ramp, humidification and unlimited supplies Please send us machine download in 1 month - CPAP Please send us machine download in 1 month - Cetirizine 10 mg cap Take 1-2 tablets by mouth as needed. - fluticasone (FLONASE) 50 mcg/actuation nasal spray Use 1 [place] in each nostril twice daily. - albuterol HFA (PROVENTIL HFA, VENTOLIN HFA) 90 mcg/actuation inhaler Inhale 1-2 Puffs as instructed as needed for Wheezing/Shortness of Breath. 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 Follow-up and Disposition History for Encounter Date Provider Department Center 10/13/2024 [id number], KELLI NE50MN Main - S Bld Letter Text Encounter Status:Closed by KANIKA BENNETT on 10/13/24 PROGRESS Observed: 10/13/2024 9:30 AM Status: COMPLETED Source: [facility] HNO ID: [id number] Author: KANIKA BENNETT APRN.CNP Service: ? Author Type: Nurse Practitioner Type: Progress Notes Filed: 10/13/2024 12:47 Note Text: [facility] EPILEPSY CENTER CHIEF COMPLAINT: seizures HISTORY OF PRESENT ILLNESS: Bishnu Coles is a 44 year old male with history of medically intractable epilepsy since age 5 s/p replacement of left VNS generator and re-tunneling of left vagal nerve electrode on 08/31/23, as well as 09/25/[address] Do who presents for VNS interrogation/adjustment. He is a patient of Dr. Lino Mendiola, last seen by myself on 11/03/2023, and as above, most recently by Dr. Do during admission to [facility] 09/25/2024 for VNS reimplantation. No seizures since last visit, last 2012. He remains on LCM 100 mg BID and KLP 2 mg TID. He notes anxiety recently, following w/ Dr. Hernandez. He is following w/ pain mgmt for chronic back pain, recently had L5-S1 ablation. Reports feeling better since procedure. Notes ongoing migraines, plans to discuss w/ DANIEL team. He works at [employer]. VNS returned to previous settings, patient tolerated well. AspireSR M106 S/N: [id number] Implant Date: 09/26/2024 Lead impedence: [place], 2293 Ohms Battery: 75-100% Output current 0.25 mAmps >> 1.625 Signal frequency 20 Hz >> 25 Pulse width 250 msec >> 500 Signal on time 30 sec Signal off time 5 min >> 0.8 minutes Duty Cycle: 44% Magnet current 1.875 mAmps Magnet on time 60 sec Magnet pulse width 500 msec Per Miquel Purdy CNP 05/24/2024: VNS Stimulation Interrogation VNS Information VNS Model Number SenTiva M1000 VNS Serial Number [id number] Date of Implantation August 31, 2023 Stimulation [...] well. To return for reprogramming after imaging Notes from VV 11/03/2023: Visit was initially scheduled in person for [...] or anyone else. Following up with Dr. Pimentel. Sleep: Stable 6-8 hours Notes from OV 04/10/23: He has not had any definite seizures since our last visit (His last GTC was in 2012). He has episodes of confusion and anxiety that he attributes to panic attacks. He has been working with Dr. Pimentel for various issues . He attempted suicide [...] or problems with the image (Done at [facility] and not available for review). His VNS is working well on his current evaluation today. He has a history of anxiety, obstructive sleep apnea, migraines and medically intractable left temporal lobe epilepsy, diagnosed in 2004 at [facility]. He did not want to pursue surgery at that time due to concerns of memory decline and had a VNS implanted. He has had multiple revisions, the last of which was in 01/2013 at [facility]. He feels that his VNS has stopped [...] OUTPATIENT MEDICATIONS: Current Outpatient Medications Medication Sig acetaminophen (TYLENOL) 325 mg tablet 2 tablets by ORAL/FEEDING TUBE route every 4 hours as needed for pain or fever (specify temp.). methocarbamol (ROBAXIN) 500 mg tablet Take 1 tablet by mouth three times a day as needed first line for muscle spasm or jaw pain cloNIDine HCl (CATAPRES) 0.1 mg tablet Take 0.1 mg in the morning and 0.2 mg at night Blood Pressure Monitor 1 each two times a day. clonazePAM (KLONOPIN) 2 mg tablet Take 1 tablet by mouth three times a day for 90 days. lacosamide (VIMPAT) 100 mg tab Take 1 tablet by mouth every 12 hours for 90 days. rizatriptan (MAXALT MANAGER FITNESS) [address] 1 TABLET ON TONGUE AND ALLOW TO DISSOLVE NEEDED AT ONSET OF HEADACHE. MAY REPEAT AFTER 2 HOURS. DO NOT EXCEED 30MG PER DAY sertraline (ZOLOFT) 100 mg tablet TAKE 3 TABLETS BY MOUTH ONCE DAILY QUEtiapine (SEROQUEL) 200 mg tablet TAKE 1 TABLET BY MOUTH EVERY NIGHT AT BEDTIME lurasidone (LATUDA) 20 mg tablet TAKE 1 TABLET BY MOUTH EVERY DAY WITH BREAKFAST lurasidone (LATUDA) 80 mg tablet TAKE 1 TABLET BY MOUTH DAILY WITH DINNER *LOWER THE SEROQUEL TO 100 MG IN THE EVENING* AIMOVIG AUTOINJECTOR 140 mg/mL auto-injector INJECT 1ML SUBCUTANEOUSLY EVERY MONTH simvastatin (ZOCOR) 20 mg tablet Take 20 mg by mouth every evening. promethazine (PHENERGAN) 25 mg tablet 1 po tid prn headache or nausea QUEtiapine (SEROQUEL) 50 mg tablet take 1 tablet by mouth three times daily as needed for anxiety benzocaine-menthol (CEPACOL) 15-3.6 mg lozg Use 1 Lozenge as instructed every 2 hours as needed. CPAP Change the pressure of autoBipap with EPAP 5-15 mh2o and PS 4-8cmh2O. His DME company is [employer] , new mask to fit patient preference, ramp, humidification and unlimited supplies Please send us machine download in 1 month CPAP Please send us machine download in 1 month Cetirizine 10 mg cap Take 1-2 tablets by mouth as needed. fluticasone (FLONASE) 50 mcg/actuation nasal spray Use 1 [place] in each nostril twice daily. albuterol HFA (PROVENTIL HFA, VENTOLIN HFA) 90 mcg/actuation inhaler Inhale 1-2 Puffs as instructed as needed for Wheezing/Shortness of Breath. No current facility-administered medications for this visit. NEUROLOGICAL EXAM: nonfocal PREVIOUS EVALUATIONS: Video EEG, [facility], 09/20/2020: Mr. Bishnu Trevizo is a 39 year oldA rightA handed male with PMH of anxiety, HIMA,A Bipolar II (follows with Dr. Chi),A migraines and left temporal lobe epilepsy (diagnosed in 2004-A He did not want to pursue surgery at that time due to concerns of memory decline and had a VNS implanted).A Establihsed care of Dr. Mendiola, he was last seen byMichael Rubin APRN on 08/16/2020 for a BMV form. Mr. Coles required VNS battery replacements frequently, most recently on 06/28/20.A Since that time Mr. Coles denies any concerns until 09/19/20 when he suddenly began feeling a painful electrical sensation localized to his left neck, as well as his throat closing. When the VNS is off (he taped magnet over generator) the pain completely resolves. He presented to an OSH ED this AM and was transferred to the EMU for VNS interrogation and workup.A On arrival to the EMU VNS was interrogated and turned off, Of concern, a diagnostic report indicated LOW output and HIGH impedance.A He was taken to OR 09/20/2020 for complete VNS system replacement. A During this 24 hours stay in EMU, his EEG during awake and asleep states were within normal limits. No epileptiform discharges, events or seizures. A Plan to continue home ASM's: LCM 200mg BID, KLP 2mg TID, and to follow up with primary epileptologist as an outpatient. Brain MRI, [facility], 09/26/2015: Stable appearance of the brain demonstrates two tiny punctate foci of abnormal FLAIR signal within the right cerebellar hemisphere. Otherwise, no structural/morphologic abnormality ? ASSESSMENT: Bishnu Coles is a 44 year old male with an evaluation suggestive [...] attacks. He has been working with Dr. iPmentel for various issues . He attempted suicide [...] or problems with the image (Done at [facility] and not available for review). His VNS is working well on his current evaluation today. 08/03/23 update: Patient denies any seizure activity since 2012. Currently taking Vimpat 100 mg BID and KLP 2 mg TID. Denies side effects. VNS is working well today on his current evaluation. This was interrogated by Robby Moreno PA-C and showed a [...] inquires on whether dose should be increased. 10/13/2024: no seizures since last visit. Presents today to have VNS adjusted to return to previous settings, as above. Classification Summary I discussed the risks, benefits and alternatives of the medical plan with the patient. Questions were answered. The patient agreed with the plan as discussed. ? PLAN: - VNS adjusted as above - continue LCM 100 mg BID and KLP 2 mg TID - follow up in [address] Mendiola A total of 30 minutes was spent during the visit with greater than 50% of the time spent counseling and coordinating care of the above plan, discussing [...] answering the patient's questions. ? Kanika Bennett APRN.[facility] October 13, 2024 CNPN Observed: 10/03/2024 12:00 AM Status: COMPLETED Source: [facility] Telephone (KATHYSES) BISHNU COLES ([id number]) 1980 M Date Time Provider Department 10/03/24 KIKO DO During your visit today, we recorded the following information about you: Amber Melchor 10/03/2024 11:34 AM Signed General call : Full name of person calling: Bishnu Coles Relationship to patient: self Phone # : [phone] Reason for call: Patient called and wants to speak with the office about the return to work letter. Letter does not have return date and needs mor Information about lifting. Patient of Dayan Barnard, NICHOLAS 10/03/2024 12:[address] Do: 09/26/2024: Left replacement of Vagal nerve stimulator electrode Spoke to pt. Who states his job is requesting a more specific work letter to include dates which I reviewed with Bishnu. 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 Also requesting lifting restriction weight to be included in letter. Will draft letter to complete. NICHOLAS Ramirez Josie, RN 10/03/2024 1:25 PM Signed Letter completed via [employer], copy sent to pt. Via [employer] as requested. Dayan Knott RN Allergies As of Date: 10/03/2024 Noted Allergy Reaction KEPPRA (LEVETIRACETAM) 07/31/2010 14 - Other: See Comments Comments: Increases his ADHD KETOROLAC TROMETHAMINE 09/14/2016 16 - Unknown Comments: unknown PRISTIQ (DESVENLAFAXINE) 01/12/2014 14 - Other: See Comments Comments: sz Date Reviewed: 09/27/2024 Reviewed by: Jonathon Altman RN - Fully Assessed Reason for Visit: Letter [264] Cmt: Return to work Prescriptions as of 10/03/2024 - traMADol (ULTRAM) 50 mg tablet Take 1 tablet by mouth every 8 hours as needed for pain for up to 5 days. - acetaminophen (TYLENOL) 325 mg tablet 2 tablets by ORAL/FEEDING TUBE route every 4 hours as needed for pain or fever (specify temp.). - methocarbamol (ROBAXIN) 500 mg tablet Take 1 tablet by mouth three times a day as needed first line for muscle spasm or jaw pain - cloNIDine HCl (CATAPRES) 0.1 mg tablet Take 0.1 mg in the morning and 0.2 mg at night - Blood Pressure Monitor 1 each two times a day. - clonazePAM (KLONOPIN) 2 mg tablet Take 1 tablet by mouth three times a day for 90 days. - lacosamide (VIMPAT) 100 mg tab Take 1 tablet by mouth every 12 hours for 90 days. - rizatriptan (MAXALT MANAGER FITNESS) [address] 1 TABLET [...] BY MOUTH EVERY DAY WITH BREAKFAST - lurasidone (LATUDA) 80 mg tablet TAKE 1 TABLET BY MOUTH DAILY WITH DINNER *LOWER THE SEROQUEL TO 100 MG IN THE EVENING* - AIMOVIG AUTOINJECTOR 140 mg/mL auto-injector INJECT 1ML SUBCUTANEOUSLY EVERY MONTH - simvastatin (ZOCOR) 20 mg tablet Take 20 mg by mouth every evening. - promethazine (PHENERGAN) 25 mg tablet 1 po tid prn headache or nausea - QUEtiapine (SEROQUEL) 50 mg tablet take 1 tablet by mouth three times daily as needed for anxiety - benzocaine-menthol (CEPACOL) 15-3.6 mg lozg Use 1 Lozenge as instructed every 2 hours as needed. - CPAP Change the pressure of autoBipap with EPAP 5-15 mh2o and PS 4-8cmh2O. His DME company is [employer] mask to fit patient preference, ramp, humidification and unlimited supplies Please send us machine download in 1 month - CPAP Please send us machine download in 1 month - Cetirizine 10 mg cap Take 1-2 tablets by mouth as needed. - fluticasone (FLONASE) 50 mcg/actuation nasal spray Use 1 [place] in each nostril twice daily. - albuterol HFA (PROVENTIL HFA, VENTOLIN HFA) 90 mcg/actuation inhaler Inhale 1-2 Puffs as instructed as needed for Wheezing/Shortness of Breath. 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 Patient of Dayan Moss RN 09/28/2024 3:17 PM Signed 09/25/2024-09/27/2024 Dr. Do VNS Pt. C/o pain / started night of 09/27 after hospital discharge describes burning sensation on neck incision, has been taking Robaxin as prescribed. States tylenol has never worked in the past for any type of pain. Requesting a stronger pain medication. Routed to NICHOLAS Ribeiro PA-C, Morgan, PA-C 09/28/2024 4:06 PM Signed The following approved medication requests have been transmitted electronically. Requested Prescriptions Signed Prescriptions Disp Refills traMADol (ULTRAM) 50 mg tablet 15 tablet 0 Sig: Take 1 tablet by mouth every 8 hours as needed for pain for up to 5 days. Authorizing Provider: HORACE ERVIN PA-C September 28, 2024 4:05 PM PDMP website checked and validated. All prescriptions have been APPROPRIATELY filled. No suspicious activity was identified. 09/28/2024 by Horace Ervin PA-C Small script of tramadol sent to patient's pharmacy. He should take this medication as needed for breakthrough pain. continue robaxin as well. Dayan Knott RN 09/28/2024 4:08 PM Signed Reviewed with pt. Who states understanding. Dayan Knott RN Allergies As of Date: 09/28/2024 Noted Allergy Reaction KEPPRA (LEVETIRACETAM) 07/31/2010 14 - Other: See Comments Comments: Increases his ADHD KETOROLAC TROMETHAMINE 09/14/2016 16 - Unknown Comments: unknown PRISTIQ (DESVENLAFAXINE) 01/12/2014 14 - Other: See Comments Comments: sz Date Reviewed: 09/27/2024 Reviewed by: Jonathon Altman RN - Fully Assessed Reason for Visit: medication concern [Other] Cmt: (ROBAXIN) Primary Visit Diagnosis:Acute post-operative pain [G89.18] Order(s):traMADol (ULTRAM) 50 mg tabletTake 1 tablet by mouth every 8 hours as needed for pain for up to 5 days.Disp: 15 tabletRfl: 0 Prescriptions as of 09/28/2024 - traMADol (ULTRAM) 50 mg tablet Take 1 tablet by mouth every 8 hours as needed for pain for up to 5 days. - acetaminophen (TYLENOL) 325 mg tablet 2 tablets by ORAL/FEEDING TUBE route every 4 hours as needed for pain or fever (specify temp.). - methocarbamol (ROBAXIN) 500 mg tablet Take 1 tablet by mouth three times a day as needed first line for muscle spasm or jaw pain - cloNIDine HCl (CATAPRES) 0.1 mg tablet Take 0.1 mg in the morning and 0.2 mg at night - Blood Pressure Monitor 1 each two times a day. - clonazePAM (KLONOPIN) 2 mg tablet Take 1 tablet by mouth three times a day for 90 days. - lacosamide (VIMPAT) 100 mg tab Take 1 tablet by mouth every 12 hours for 90 days. - rizatriptan (MAXALT MANAGER FITNESS) [address] 1 TABLET [...] BY MOUTH EVERY DAY WITH BREAKFAST - lurasidone (LATUDA) 80 mg tablet TAKE 1 TABLET BY MOUTH DAILY WITH DINNER *LOWER THE SEROQUEL TO 100 MG IN THE EVENING* - AIMOVIG AUTOINJECTOR 140 mg/mL auto-injector INJECT 1ML SUBCUTANEOUSLY EVERY MONTH - simvastatin (ZOCOR) 20 mg tablet Take 20 mg by mouth every evening. - promethazine (PHENERGAN) 25 mg tablet 1 po tid prn headache or nausea - QUEtiapine (SEROQUEL) 50 mg tablet take 1 tablet by mouth three times daily as needed for anxiety - benzocaine-menthol (CEPACOL) 15-3.6 mg lozg Use 1 Lozenge as instructed every 2 hours as needed. - CPAP Change the pressure of autoBipap with EPAP 5-15 mh2o and PS 4-8cmh2O. His DME company is [employer] , new mask to fit patient preference, ramp, humidification and unlimited supplies Please send us machine download in 1 month - CPAP Please send us machine download in 1 month - Cetirizine 10 mg cap Take 1-2 tablets by mouth as needed. - fluticasone (FLONASE) 50 mcg/actuation nasal spray Use 1 [place] in each nostril twice daily. - albuterol HFA (PROVENTIL HFA, VENTOLIN HFA) 90 mcg/actuation inhaler Inhale 1-2 Puffs as instructed as needed for Wheezing/Shortness of Breath. 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 Encounter Status:Closed by DAYAN KNOTT on 09/28/24 PROGRESS Observed: 09/27/2024 1:59 PM Status: COMPLETED Source: [facility] HNO ID: [id number] Author: YASMIN HORAN PA-C Service: ? Author Type: Physician Business Support Manager Type: Progress Notes Filed: 09/27/2024 14:01 Note Text: Vagus Nerve Stimulator 09/25/2024 09/25/2024 09/27/2024 Vagus Nerve Stimulator Date Placed 08/31/2023 08/31/2023 09/26/2024 Model Number AspireSR M106 AspireSR M106 AspireSR M106 Serial Number [id number] 09/25/2024 09/25/2024 09/27/2024 VNS Normal Output Current (mA) 1.625 0 0.25 Signal Frequency (Hz) 25 25 20 Pulse Width (microseconds) 500 500 250 Signal ON Time (seconds) 30 30 30 Signal OFF Time (minutes) 0.8 0.8 5 09/25/2024 09/25/2024 09/27/2024 VNS Autostim Output Current (mA) 0 Pulse Width (microseconds) 250 ON Time (seconds) 30 Tachycardia Detection Off Off On Heartbeat Detection Sensitivity 2 Threshold for Autostim (%) 40 Number of AutoStims Daily 1103.5 1103.5 09/25/2024 09/25/2024 09/27/2024 VNS Magnet Output Current (mA) 1.875 0 0.5 Pulse Width (microseconds) 500 500 250 ON Time (seconds) 60 60 30 09/25/2024 09/25/2024 09/27/2024 Night Settings Has Night Settings No No No 09/25/2024 09/25/2024 09/27/2024 VNS Diagnostics Output Status 1.625 1.625 0.25 mA Lead Impedence 2633 2633 1076 Ohms Battery Percentage (%) 50-75 50-75 75-100% 09/25/2024 09/25/2024 09/27/2024 Clinical Assessment VNS Complications Procedure tolerated without complications. Procedure tolerated without complications. Patient denies any issues since VNS implantation VNS interrogation performed after device replacement. VNS on at starting settings for new device. Patient reports no issues with VNS since surgery yesterday. Requested outpatient appointment with epilepsy ELIJAH in 2 weeks for further device up-titration of current settings. Yasmin Horan PA-C September 27, 2024 PROCEDURE Observed: 09/27/2024 1:52 PM Status: COMPLETED Source: [facility] ID: [id number] Author: YASMIN HORAN PA-C Service: Neurology Adult Epilepsy Author Type: Physician Business Support Manager Type: Procedures Filed: 09/27/2024 13:58 Note Text: Vagus Nerve Stimulator 09/25/2024 09/25/2024 09/27/2024 Vagus Nerve Stimulator Date Placed 08/31/2023 08/31/2023 09/26/2024 Model Number AspireSR M106 AspireSR M106 AspireSR M106 Serial Number [id number] 09/25/2024 09/25/2024 09/27/2024 VNS Normal Output Current (mA) 1.625 0 0.25 Signal Frequency (Hz) 25 25 20 Pulse Width (microseconds) 500 500 250 Signal ON Time (seconds) 30 30 30 Signal OFF Time (minutes) 0.8 0.8 5 09/25/2024 09/25/2024 09/27/2024 VNS Autostim Output Current (mA) 0 Pulse Width (microseconds) 250 ON Time (seconds) 30 Tachycardia Detection Off Off On Heartbeat Detection Sensitivity 2 Threshold for Autostim (%) 40 Number of AutoStims Daily 1103.5 1103.5 09/25/2024 09/25/2024 09/27/2024 VNS Magnet Output Current (mA) 1.875 0 0.5 Pulse Width (microseconds) 500 500 250 ON Time (seconds) 60 60 30 09/25/2024 09/25/2024 09/27/2024 Night Settings Has Night Settings No No No 09/25/2024 09/25/2024 09/27/2024 VNS Diagnostics Output Status 1.625 1.625 0.25 mA Lead Impedence 2633 2633 1076 Ohms Battery Percentage (%) 50-75 50-75 75-100% 09/25/2024 09/25/2024 09/27/2024 Clinical Assessment VNS Complications Procedure tolerated without complications. Procedure tolerated without complications. Patient denies any issues since VNS implantation VNS interrogation performed after device replacement. VNS on at starting settings for new device. Patient reports no issues with VNS since surgery yesterday Yasmin Horan PA-C September 27, 2024 PLAN OF CARE Observed: 09/27/2024 1:21 PM Status: COMPLETED Source: [facility] ID: [id number] Author: CAMMY SAMSON ? Service: Pharmacy Author Type: Music Director Type: Plan of Care Filed: 09/27/2024 13:22 Note Text: PHARMACY BEDSIDE DELIVERY SERVICE Patient Name: Bishnu Coles The marked outpatient medications were Filled at: [facility] and delivered to the patient's bedside to patient Medication List START taking these medications acetaminophen 325 mg tablet Commonly known as: TYLENOL 2 tablets by ORAL/FEEDING TUBE route every 4 hours as needed for pain or fever (specify temp.). MEDICATION: OTC. methocarbamol 500 mg tablet Commonly known as: ROBAXIN Take 1 tablet by mouth three times a day as needed first line for muscle spasm or jaw pain MEDICATION: DELIVERED CONTINUE taking these medications AIMOVIG AUTOINJECTOR 140 mg/mL auto-injector Generic drug: erenumab-aooe INJECT 1ML SUBCUTANEOUSLY EVERY MONTH albuterol HFA 90 mcg/actuation inhaler Commonly known as: PROVENTIL HFA, VENTOLIN HFA benzocaine-menthol 15-3.6 mg Lozg Commonly known as: CEPACOL Use 1 Lozenge as instructed every 2 hours as needed. Blood Pressure Monitor 1 each two times a day. Cetirizine 10 mg Cap clonazePAM 2 mg tablet Commonly known as: KlonoPIN Take 1 tablet by mouth three times a day for 90 days. cloNIDine HCl 0.1 mg tablet Commonly known as: CATAPRES Take 0.1 mg in the morning and 0.2 mg at night CPAP Change the pressure of autoBipap with EPAP 5-15 mh2o and PS 4-8cmh2O. His DME company is [employer] to fit patient preference, ramp, humidification and unlimited supplies Please send us machine download in 1 month CPAP Please send us machine download in 1 month fluticasone 50 mcg/actuation nasal spray Commonly known as: FLONASE lacosamide 100 mg Tab Commonly known as: VIMPAT Take 1 tablet by mouth every 12 hours for 90 days. * lurasidone 80 mg tablet Commonly known as: LATUDA TAKE 1 TABLET BY MOUTH DAILY WITH DINNER *LOWER THE SEROQUEL TO 100 MG IN THE EVENING* * lurasidone 20 mg tablet Commonly known as: LATUDA TAKE 1 TABLET BY MOUTH EVERY DAY WITH BREAKFAST promethazine 25 mg tablet Commonly known as: PHENERGAN 1 po tid prn headache or nausea * QUEtiapine 50 mg tablet Commonly known as: SEROquel take 1 tablet by mouth three times daily as needed for anxiety * QUEtiapine 200 mg tablet Commonly known as: SEROquel TAKE 1 TABLET BY MOUTH EVERY NIGHT AT BEDTIME rizatriptan 10 mg disintegrating tablet Commonly known as: MAXALT MANAGER FITNESS PLACE 1 TABLET ON TONGUE AND ALLOW TO DISSOLVE NEEDED AT ONSET OF HEADACHE. MAY REPEAT AFTER 2 HOURS. DO NOT EXCEED 30MG PER DAY sertraline 100 mg tablet Commonly known as: ZOLOFT TAKE 3 TABLETS BY MOUTH ONCE DAILY simvastatin 20 mg tablet Commonly known as: ZOCOR * This list has 4 medication(s) that are the same as other medications prescribed for you. Read the directions carefully, and ask your doctor or other care provider to review them with you. You might also be taking other medications not listed above. If you have questions about any of your other medications, talk to the person who prescribed them or your Primary Care Provider. STOP taking these medications diclofenac (EC) 75 mg EC tablet Commonly known as: VOLTAREN ibuprofen 800 mg tablet Commonly known as: MOTRIN LORazepam 1 mg tablet Commonly known as: ATIVAN nadolol 80 mg tablet Commonly known as: CORLESD Cammy Samson PAGER: September 27, 2024 1:21 PM PLAN OF CARE Observed: 09/27/2024 1:21 PM Status: COMPLETED Source: [facility] HNO ID: [id number] Author: CAMMY SAMSON, ? Service: Pharmacy Author Type: Music Director Type: Plan of Care Filed: 09/27/2024 13:21 Note Text: Insurance investigation completed Patient has active prescription insurance: Yes - Patient's insurance is in-network with [employer] [facility] Insurance loaded into [place]: Yes Test claim was completed to verify insurance is active: Successful Any questions, please reach out to your medication junior project coordinator. CASE MANAGEM Observed: 09/27/2024 11:16 AM Status: COMPLETED Source: [facility] HNO ID: [id number] Author: ERA ESPINOSA, Bette Service: ? Author Type: ? Type: Care Mgt Progress Note Filed: 09/27/2024 11:16 Note Text: CARE MANAGEMENT PROGRESS NOTE SERVICE DATE: 09/27/2024 SERVICE TIME: 11:16 AM LOS: 2 days IMM Follow Up Copy Given: Yes Copy given to:: Patient Method: In Person SIGNATURE: Era Espinosa CMA PATIENT NAME: Bishnu Coles DATE: September 27, 2024 TIME: 11:16 AM CASE MGT INJOSE ASSES Observed: 09/27/2024 9:44 AM Status: COMPLETED Source: [facility] HNO ID: [id number] Author: TONA FIERRO LSW Service: Care Management Author Type: Janitor Type: Care Mgt Initial Assessment Filed: 09/27/2024 09:44 Note Text: CARE MANAGEMENT: ASSESSMENT AND DISCHARGE PLAN SERVICE DATE: September 27, 2024 SERVICE TIME: 9:44 AM PCP: Erlinda Nunez MD Primary Contact: Extended Emergency Contact Information Primary Emergency Contact: Jayjay Ornelas Address: [address] [place] [id number] Mobile Relation: Mother Secondary Emergency Contact: Nida Ribeiro [facility] Mobile Relation: Sister Admission Status: Inpatient Insurance Provider: MEDICARE A AND B Discharge Planning requested by: Per Department Practice Potential Transition Plans Advance Directives Current Advance Directive: None Superintendent Pressure Attempted to Assist with AD Completion: Yes Action: Education Provided How do you manage to accomplish the following: Independent: Ambulation, Bathe/Shower, Dress, Meals/Meal Prep, Going to the bathroom, Medication Management, Transportation to appointments/community Discharge Planning Patient Goal(s): The patient/family expressed post-acute services are not needed at this time. [place] of Choice Explained: [place] of Choice Given: No Reason Not Given: No placements necessary Are you interested in bedside delivery of your medications? Yes Needs Prior to Discharge: Needs Prior to Discharge: None Post-Acute Discharge Plan: This patient has been screened for Care Management Transitional Planning Services. At this time, it does not appear this patient will require transition planning services. Should this change, and the patient require transition planning services during this admission, please contact Case Management. SIGNATURE: JEYSON Kathleen PATIENT NAME: Bishnu Coles DATE: September 27, 2024 TIME: 9:44 AM CNCO Observed: 09/27/2024 12:00 AM Status: COMPLETED Source: [facility] Letter TextLetter Text NURSING PROG Observed: 09/26/2024 4:40 PM Status: COMPLETED Source: [facility] HNO ID: [id number] Author: JONATHON ALTMAN RN Service: ? Author Type: Registered Nurse Type: Nursing Progress Note Filed: 09/26/2024 16:41 Note Text: Admission/Transfer Note PATIENT NAME: Bishnu Coles Patient Location: [facility] 001/H060- Room: [place] [address] Patient transferred from PACU via bed in stable condition. Actions taken: Patient oriented to room, call light function, prescribed activities, Patient rights, and Quiet at night. This note was completed by: Jonathon Altman XR CERVICAL 2V AP/LAT Observed: 09/27/19 4:05 PM Status: F Source: [facility] * * *Final Report* * * DATE OF EXAM: Sep 26 2024 4:05PM ESX [id number] - XR CERVICAL 2V AP/LAT / PROCEDURE REASON: Post-operative / post-procedure assessment, asymptomatic * * * * Physician Interpretation * * * * EXAMINATION: XR CERVICAL 2V AP/LAT HISTORY: Post-operative / post-procedure assessment, asymptomatic. TECHNIQUE: XR CERVICAL 2V AP/LAT Laterality: Not applicable Number of different views (projections): 2 M: [id number] COMPARISON: 09/25/2024 RESULT/ IMPRESSION: No significant spondylolisthesis. C1-C2 relationship is preserved. Vertebral body heights are preserved. No acute fracture is identified. Preserved intervertebral disc spaces with mild degenerative endplate changes and anterior osteophytes at C5-C6 and C6-C7. Vagus nerve stimulator lead is seen with left upper chest wall generator in expected position. No other significant abnormality. Chronic Specialist: APARNA Transcribe Date/Time: Sep 26 2024 4:33P Dictated by : SANFORD LANDA MD This examination was interpreted and the report reviewed and electronically signed by: SANFORD LANDA MD on Sep 26 2024 4:36PM EST [id number] ANES POSTPROC EVAL Observed: 09/26/2024 3:56 PM Status: COMPLETED Source: [facility] HNO ID: [id number] Author: JULIETTE BRANTLEY MD Service: ? Author Type: Anesthesiologist Type: Anesthesia Postprocedure Evaluation Filed: 09/26/2024 15:56 Note Text: POST ANESTHESIA EVALUATION NOTE : 1980 Procedure Summary Date: 09/26/24 Room / Location: [address] Anesthesia Start: 1234 Anesthesia Stop: 1542 Procedure: EXPLORATION AND REVISION VAGUS NERVE STIMULATOR GENERATOR, CONNECT TO MULTI ELECTRODE LEAD ARRAY (Left: Neck) Diagnosis: 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 (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 [Z96.89]) Surgeons: Kiko Do MD Responsible Provider: Juliette Brantley MD Anesthesia Type: general ASA Status: 3 Anesthesia Type: general Airway Type: ETT Last Vitals Vitals Value Taken Time BP 141/84 09/26/24 1545 Temp 36 ?C (96.8 ?F) 09/26/24 1540 Pulse 93 09/26/24 1554 Resp 13 09/26/24 1554 SpO2 90 % 09/26/24 1554 Vitals shown include unfiled device data. Post Anesthesia Patient Status Patient Evaluation: PACU. PACU/ICU Patient Condition: stable. Anticipated Disposition: phase 2 then home. Neurological Status: sleepy but arousable. Pulmonary Status: breathing comfortably on supplemental oxygen Airway Control: returned to baseline unsupported. Cardiovascular Status: stable. Pain Management: clinically adequate Postoperative Hydration: acceptable. Intraoperative Events: no significant anesthesia events Post Operative Nausea/Vomiting Status: no significant post operative nausea or vomiting Recommendation: further care per PACU/ICU/floor team. Anesthesia Observations No Documentation SIGNATURE: Juliette Brantley MD PATIENT NAME: Bishnu Coles DATE: September 26, 2024 TIME: 3:56 PM CSN: [id number] PROGRESS Observed: 09/26/2024 3:24 PM Status: COMPLETED Source: [facility] ID: [id number] Author: ERNIE TORRES MD Service: ? Author Type: Resident Type: Progress Notes Filed: 09/26/2024 15:51 Note Text: Neurosurgery Postop Check Note: Name: Bishnu Coles Procedure: Left replacement of Vagal nerve stimulator electrodes and IPG EXAM: E3M6V4, AANDO*2, emerging PERRL FS, TM BUE 4/4 BLE 3/3 dressing c/d/i Plan: 43 year old ambidextrous (originally right-handed) male with PMH HLD, ADHD, anxiety, depression, bipolar II, MRE s/p L VNS ( in [place]) and multiple replacements (last 08/31/2023, Dr. Do) presenting to OSH ED after reporting a painful electrical sensation over left neck and feeling like throat was closing. Magnet was placed over VNS which resolved symptoms. Transferred to [facility] for VNS evaluation. POD0 Left VNS revision - NSGY SDU - XR Chest - Seizure precautions - Epilepsy consulted alreadty - OK for Diet - hold anti-platelet/anti-coagulation - SCDs for DVT prophylaxis only - SBP < 160 mmHg - ancef post op ppx until d/c tomorrow. Ernie Torres MD PhD Epilepsy Surgery Fellow September 26, 2024 Pager [phone] After 6pm please page [phone] BRIEF OP NOT Observed: 09/26/2024 3:23 PM Status: COMPLETED Source: [facility]NO ID: [id number] Author: ERNIE TORRES MD Service: ? Author Type: Resident Type: Brief Op Note Filed: 09/26/2024 15:24 Note Text: BRIEF OPERATIVE / PROCEDURE NOTE LOG ID: [id number] SURGERY/PROCEDURE DATE: 09/26/2024 INCISION/PROCEDURE START TIME: 1:17 PM INCISION CLOSE/PROCEDURE END TIME: 3:14 PM SURGEON(S)/PROCEDURALIST(S) AND IRON WORKER APPRENTICE(S): Surgeons and Role: * Kiko Do MD - Primary * Ernie Torres MD - Fellow No Additional Staff SURGERY/PROCEDURE(S): Left replacement of Vagal nerve stimulator electrodes and IPG ANESTHESIA: General FINDINGS: Removed old hardware including leads. Placed new leads superior to old lead site on vagal nerve. Impedence <1200 at closure. ESTIMATED BLOOD LOSS: 10 mls SPECIMENS: ID Type Source Tests Collected by Time Destination A : EXPLANTED GENERATOR FOR ACCESSION ONLY Implant/Device/Foreign Body Hardware/Device/Foreign Body SURGICAL PATHOLOGY Kiko Do MD 09/26/2024 3:03 PM COMPLICATIONS: None IMPLANTS: Implant Name Type Inv. Item Serial No. Set Making Machine Operator Lot No. LRB No. Used Action GENERATOR VNS THERAPY ASPIRESR THK7MM NEUROSTIMULATOR 14CC 1 PIN LEAD - [id number] Neurostimulator GENERATOR VNS THERAPY ASPIRESR THK7MM NEUROSTIMULATOR 14CC 1 PIN LEAD [id number] [facility] Left 1 Implanted CLOSURE TECHNIQUE: Primary PRE-OP/PRE-PROCEDURE DIAGNOSIS: MRE POST-OP/POST-PROCEDURE DIAGNOSIS: Same as Preop Patient was accompanied to the next level of care by a licensed practitioner from the surgical team pending completion of this brief op note (or operative note) SIGNATURE: Ernie Torres MD PATIENT NAME: Bishnu Coles DATE: September 26, 2024 TIME: 3:23 PM TISS PATH BX REPORT Collected: 09/26/2024 3:[address] atus: F Source: [facility] Order Comment: Specimen Type : DEVICE SPECIMEN Ordering Facility: [facility] Address: [address] [place] [address] TYPE CODE TESTS RESULT OUT OF RANGE REFERENCE UNITS PATHOLOGY [id number] CASE REPORT Result Comment: Surgical Pat hology Report Case: [id number] Authorizing Provider: Kiko Do MD Collected: 09/26/2024 03:03 PM Ordering Location: Admitting Received: 09/26/2024 03:17 PM Pathologist: Hanh Ventura MD Specimen: Hardware/Device/Foreign Body, EXPLANTED GENERATOR FOR ACCESSION ONLY PATHOLOGY [id number] FINAL DIAGNOSIS Result Comment: A. Hardware, removal: - Pulse generator identified (gross examination only). CK/WE September 27, 2024 12:37 PM Gross examination performed at [facility], [address] [place] [address] at 1707 EDT PATHOLOGY [id number] GROSS DESCRIPTION Result Comment: A. Hardware/ Device/Foreign Body Received fresh designated generator is a pulse generator with the inscription aspireSR model 106 [id number]. There is an attached lead wire that measures 31 cm in length. There is no tissue present. The specimen is reviewed by Dr. Ventura. WE September 27, 2024 12:37 PM Gross examination performed at [facility], [address] [place] [address] PATHOLOGY CDX2 CLINICAL HISTORY Result Comment: Pre-op diagn osis: 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 [Z96.89] PATHOLOGY [facility] FINAL PERFORMING LAB Result Comment: Diagnostic i nterpretation performed at: [facility], [address] [place] [address], [place] [address] CLIA# [id number] Nurse Behavioral Health Care: Kendrick Salcedo MD Performed By: #### [id number] # ### [facility] CLIA [id number] [address] [place] [address] [place] ANES PROCEDURE NOTE Observed: 09/26/2024 1:19 PM Status: COMPLETED Source: [facility] HNO ID: [id number] Author: PAVEL JIMENEZ DO Service: ? Author Type: Resident Type: Anesthesia Procedure Notes Filed: 09/26/2024 13:20 Note Text: ANESTHESIOLOGY PROCEDURE NOTE Airway General Information Procedure Start Time/Medication Administration: 09/26/2024 12:56 PM Procedure End Time: 09/26/2024 12:57 PM Patient location during procedure: OR Timeout Performed Pre-procedure: timeout performed Consent Obtained: Yes Patient identity confirmed: arm band and patient Staffing Resident: Pavel Jimenez DO Performed by: resident Indications and Patient Condition Indications for airway management: anesthesia Preoxygenated: yes anesthesia circuit Patient position: sniffing Method: asleep Difficult Mask: No Airway Accessory: oral airway Final Airway Details Final airway type: endotracheal airway Final Endotracheal Airway: ETT Cuffed: yes Successful intubation technique: video laryngoscopy Devices used: Michael Endotracheal tube insertion site: oral Blade: Perico Blade size: #4 ETT size (mm): 7.5 Measured from: lips Measurement (cm): 22 Placement verified by: capnometry Cormack-Lehane Classification: grade I - full view of glottis Number of attempts at approach: 1 Failed airway: no Unrecognized esophageal intubation: no Airway not difficult SIGNATURE: Pavel Jimenez DO PATIENT NAME: Bishnu Coles DATE: September 26, 2024 TIME: 1:19 PM CSN: [id number] OPERATIVE NO Observed: 09/26/2024 12:34 PM Status: COMPLETED Source: [facility] HNO ID: [id number] Author: KIKO DO MD Service: Neurosurgery Author Type: Physician Type: Operative Report Filed: 09/26/2024 17:09 Note Text: OPERATIVE/PROCEDURE REPORT LOG ID: [id number] SURGERY/PROCEDURE DATE: 09/26/2024 INCISION/PROCEDURE START TIME: 1:17 PM INCISION CLOSE/PROCEDURE END TIME: 3:14 PM SURGEON(S)/PROCEDURALIST(S) AND IRON WORKER APPRENTICE(S): Surgeons and Role: * Kiko Do MD - Primary * Ernie Torres MD - Fellow No Additional Staff SURGERY/PROCEDURE(S): Revision/removal of old vagal nerve system including generator and electrode with replacement by similar system ANESTHESIA: General SURGERY/PROCEDURE DETAILS: Patient was brought to the operating room and placed under general endotracheal anesthesia. His neck and chest were sterilely prepped and draped. His pre-existing incisions in the left chest and neck were infiltrated with local anesthesia and made with a #10 scalpel after sterile prep and drape. The skin incision was widely undermined in the scar tissue followed down to the pre-existing VNS electrode. The chest incision was opened sharply and carried down to the generator. The generator was removed and the wire cut. The generator was sent to pathology. I then followed the electrode in the neck down to the carotid sheath through scar tissue. I exposed and removed the old electrode. I exposed a new section of the nerve in the cranial end of the incision. The 3 mm electrode was placed around the vagus nerve in standard fashion. It was then tunneled to the chest and connected to a new 106 generator. This was tested and turned on a low setting. The generator was placed in the subcutaneous pocket and a strain relief been created in the left neck. Both incisions were irrigated with antibiotics and closed anatomically. PRE-OP/PRE-PROCEDURE DIAGNOSIS: Localization-related epilepsy, partial complex onset, not associated with status epilepticus POST-OP/POST-PROCEDURE DIAGNOSIS: Same as Preop ESTIMATED BLOOD LOSS: 10 mL SPECIMENS: Vagus nerve system IMPLANTABLE DEVICES: Implant Name Type Inv. Item Serial No. Set Making Machine Operator Lot No. LRB No. Used Action GENERATOR VNS THERAPY ASPIRESR THK7MM NEUROSTIMULATOR 14CC 1 PIN LEAD - [id number] Neurostimulator GENERATOR VNS THERAPY ASPIRESR THK7MM NEUROSTIMULATOR 14CC 1 PIN LEAD [id number] [facility] Left 1 Implanted DRAINS: None COMPLICATIONS: None CLOSURE TECHNIQUE: Primary PARTICIPATION IN SURGERY/PROCEDURE: I/primary surgeon/proceduralist performed the procedure with assistance. SIGNATURE: Kiko Do MD PATIENT NAME: Bishnu Coles DATE: September 26, 2024 TIME: 5:07 PM ANES PRE-OP Observed: 09/26/2024 12:28 PM Status: COMPLETED Source: [facility]NO ID: [id number] Author: JULIETTE BRANTLEY MD Service: ? Author Type: Anesthesiologist Type: Anesthesia Preprocedure Evaluation Filed: 09/26/2024 12:29 Note Text: ANESTHESIOLOGY DAY OF SURGERY NOTE : 1980 Procedure Information Date/Time: 09/26/24 1305 Procedure: EXPLORATION AND REVISION VAGUS NERVE STIMULATOR GENERATOR, CONNECT TO MULTI ELECTRODE LEAD ARRAY (Left: Neck) [facility] Surgeons: Kiko Do MD Estimated body mass index is 30.94 kg/m? as calculated from the following: Height as of this encounter: 177.8 cm (5' 10 ). Weight as of this encounter: 97.8 kg (215 lb 9.8 oz). Most recent hematocrit and potassium results: Hematocrit 45.5 09/25/2024 Potassium 3.9 09/25/2024 Relevant Problems ANESTHESIA (+) HIMA (obstructive sleep [...] and consent discussed: yes. Patient / Responsible Constitution Party agrees to proceed: yes Patient / Surrogate agrees to blood products: Yes Significant changes in the patient condition since the History and Physical, not otherwise documented in primary service progress note: no. Potential Anesthesia issues that may suggest increased risk of complications or contraindication to planned procedure: none. Vitals Value Taken Time BP 125/77 09/26/24 1200 Pulse 67 09/26/24 1216 Resp 17 09/26/24 1216 Temp SpO2 96 % 09/26/24 1216 Vitals shown include unfiled device data. Facility-Administered Medications as of 09/26/2024 Medication Dose Route Frequency [Transfer Hold] sertraline 300 mg tab(s) (ZOLOFT) 300 mg ORAL AT BEDTIME [Transfer Hold] albuterol HFA 90 mcg/actuation 1-2 puff (PROVENTIL HFA, VENTOLIN HFA) 1-2 puff INHALATION PRN [Transfer Hold] QUEtiapine 50 mg tab(s) (SEROquel) 50 mg ORAL TID PRN [Transfer Hold] simvastatin 20 mg tab(s) (ZOCOR) 20 mg ORAL DAILY [Transfer Hold] lurasidone 80 mg tab(s) (LATUDA) 80 mg ORAL DAILY wDINNER [Transfer Hold] lurasidone 20 mg tab(s) (LATUDA) 20 mg ORAL DAILY WITH BREAKFAST [Transfer Hold] QUEtiapine 200 mg tab(s) (SEROquel) 200 mg ORAL AT BEDTIME [Transfer Hold] clonazePAM 2 mg tab(s) (KlonoPIN) 2 mg ORAL TID [Transfer Hold] lacosamide 100 mg tab(s) (VIMPAT) 100 mg ORAL q 12 HR [Transfer Hold] cloNIDine HCl 0.1 mg tab(s) (CATAPRES) 0.1 mg ORAL DAILY WITH BREAKFAST And [Transfer Hold] cloNIDine HCl 0.2 mg tab(s) (CATAPRES) 0.2 mg ORAL DAILY wDINNER [Transfer Hold] ondansetron (PF) 4 mg injection (ZOFRAN) 4 mg INTRAVENOUS q 6 H PRN [Transfer Hold] prochlorperazine 10 mg injection (COMPAZINE) 10 mg INTRAVENOUS q 6 H PRN [Transfer Hold] trimethobenzamide 200 mg injection (TIGAN) 200 mg INTRAMUSCULAR q 6 H PRN [Transfer Hold] senna-docusate 8.6-50 mg 1 tablet (SENNA-S) 1 tablet ORAL/FEEDING TUBE BID [Transfer Hold] NaCl 0.9% iv flush bag 20 mL INTRAVENOUS PRN [] NaCl 0.9% iv infusion 5-30 mL/hr INTRAVENOUS CONTINUOUS [Transfer Hold] acetaminophen 650 mg tab(s) (TYLENOL) 650 mg ORAL/FEEDING TUBE q 4 H PRN [Transfer Hold] methocarbamol 500 mg tab(s) (ROBAXIN) 500 mg ORAL/FEEDING TUBE TID PRN [Transfer Hold] labetalol 5-20 mg injection syringe (NORMODYNE) 5-20 mg INTRAVENOUS q 30 MIN PRN [Transfer Hold] hydrALAZINE 5-20 mg injection (APRESOLINE) 5-20 mg INTRAVENOUS q 30 MIN PRN [Transfer Hold] midazolam (PF) 2 mg injection (VERSED) 2 mg INTRAMUSCULAR PRN Or [Transfer Hold] midazolam (PF) 2 mg injection (VERSED) 2 mg INTRAVENOUS PRN Outpatient Medications as of 09/26/2024 Medication Sig cloNIDine HCl (CATAPRES) 0.1 mg tablet Take 0.1 mg in the morning and 0.2 mg at night clonazePAM (KLONOPIN) 2 mg tablet Take 1 tablet by mouth three times a day for 90 days. lacosamide (VIMPAT) 100 mg tab Take 1 tablet by mouth every 12 hours for 90 days. rizatriptan (MAXALT MANAGER FITNESS) [address] 1 TABLET ON TONGUE AND ALLOW TO DISSOLVE NEEDED AT ONSET OF HEADACHE. MAY REPEAT AFTER 2 HOURS. DO NOT EXCEED 30MG PER DAY sertraline (ZOLOFT) 100 mg tablet TAKE 3 TABLETS BY MOUTH ONCE DAILY QUEtiapine (SEROQUEL) 200 mg tablet TAKE 1 TABLET BY MOUTH EVERY NIGHT AT BEDTIME lurasidone (LATUDA) 80 mg tablet TAKE 1 TABLET BY MOUTH DAILY WITH DINNER *LOWER THE SEROQUEL TO 100 MG IN THE EVENING* AIMOVIG AUTOINJECTOR 140 mg/mL auto-injector INJECT 1ML SUBCUTANEOUSLY EVERY MONTH simvastatin (ZOCOR) 20 mg tablet Take 20 mg by mouth every evening. fluticasone (FLONASE) 50 mcg/actuation nasal spray Use 1 [place] in each nostril twice daily. albuterol HFA (PROVENTIL HFA, VENTOLIN HFA) 90 mcg/actuation inhaler Inhale 1-2 Puffs as instructed as needed for Wheezing/Shortness of Breath. Blood Pressure Monitor 1 each two times a day. lurasidone (LATUDA) 20 mg tablet TAKE 1 TABLET BY MOUTH EVERY DAY WITH BREAKFAST ibuprofen (MOTRIN) 800 mg tablet Take 800 [...] and PS 4-8cmh2O. His DME company is [employer] , new mask to fit patient preference, ramp, humidification and unlimited supplies Please send us machine download in 1 month CPAP Please send us machine download in 1 month Cetirizine 10 mg cap Take 1-2 tablets by mouth as needed. I have interviewed and examined the patient. I have reviewed the medical record and/or the pre-anesthesia evaluation, pertinent labs, and test results. This contains updated information obtained within 48 hours of Surgery/Procedure. SIGNATURE: Juliette Brantley MD PATIENT NAME: Bishnu Coles DATE: September 26, 2024 TIME: 12:28 PM CSN: [id number] CNDS Observed: 09/26/2024 8:15 AM Status: COMPLETED Source: [facility] ID: [id number] Author: KIKO DO MD Service: Neurosurgery Author Type: Physician Business Support Manager Type: Discharge Summary Filed: 10/03/2024 08:22 Note Text: Attestation signed by Kiko Do MD at 10/03/2024 8:22 AM [facility] DISCHARGE SUMMARY Account #: Data Unavailable Admission Date: 09/25/2024 Date of Evaluation: 09/29/2024 Time of Evaluation: 2:40 PM Attending: Kiko Steward MD. Location: [place] [id number]/[id number] Discharge Date: 09/27/2024 Attending Physician: Kiko Do MD PCP: Erlinda Nunez MD [phone] Treatment Team: Primary Service: Adele Ochoa PA-C Primary Service: Ciaran Maritnez PA-C Reason for Hospitalization: Epilepsy Final Diagnoses: Active Hospital Problems Diagnosis POA Vagus nerve disorder Yes Bipolar I disorder, most recent episode depressed (HCC) Yes Anxiety disorder Yes Post-traumatic stress disorder, chronic Yes Complex partial seizures evolving to generalized tonic-clonic seizures (HCC) Yes Acute postoperative pain Yes 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 Yes Obesity, Class I, BMI 30-34.9 Yes Hx of suicide attempt Yes Resolved Hospital Problems No resolved problems to display. Operations During Hospitalization: 09/26/2024: Left replacement of Vagal nerve stimulator electrodes and IPG Procedures During Hospitalization: No procedures performed Hospital Course: The patient was transferred from another [facility] hospital to the [facility]. After being optimized for surgery by the Neurosurgery and Epilepsy teams, Bishnu Coles was identified and brought into the Operating Room by the anesthesia and nursing teams. Prior to surgery the patient was treated with antibiotics and continued with antibiotics postoperatively. The patient underwent a Left replacement of Vagal nerve stimulator electrodes and IPG with general endotracheal anesthesia. The patient tolerated the procedure and was taken to PACU in stable condition. The patient was then transferred up to Neuro specific hospital unit for postoperative management. Patient was fitted with sequential compression devices for DVT prophylaxis. Patient was hemodynamically stable postoperatively. POD 1: The patient tolerated the procedure well. Pain well controlled on oral medication. VNS confirmed to be on by the Neurology team. No acute issues or concerns. The patient was ambulating around the unit without changes in baseline gait. Patient urinating, passing flatus, and eating well prior to discharge. The patient was discharged on POD # 1 in stable condition. Complete and comprehensive discharge instructions were provided to the patient as well as necessary prescriptions. The patient had no further questions and was advised to call with any questions, concerns, or problems. Patient's pain was well controlled with oral pain medications upon discharge. Patient had no signs/symptoms of DVT, so no ultrasound was done during hospital course. HOME MEDICATIONS: Prior to Admission medications as of 09/26/24 0948 Medication Sig Last Dose Taking cloNIDine HCl (CATAPRES) 0.1 mg tablet Take 0.1 mg in the morning and 0.2 mg at night Yes clonazePAM (KLONOPIN) 2 mg tablet Take 1 tablet by mouth three times a day for 90 days. Yes lacosamide (VIMPAT) 100 mg tab Take 1 tablet by mouth every 12 hours for 90 days. Yes rizatriptan (MAXALT MANAGER FITNESS) [address] 1 TABLET ON TONGUE AND ALLOW TO DISSOLVE NEEDED AT ONSET OF HEADACHE. MAY REPEAT AFTER 2 HOURS. DO NOT EXCEED 30MG PER DAY Yes sertraline (ZOLOFT) 100 mg tablet TAKE 3 TABLETS BY MOUTH ONCE DAILY Yes QUEtiapine (SEROQUEL) 200 mg tablet TAKE 1 TABLET BY MOUTH EVERY NIGHT AT BEDTIME Yes lurasidone (LATUDA) 80 mg tablet TAKE 1 TABLET BY MOUTH DAILY WITH DINNER *LOWER THE SEROQUEL TO 100 MG IN THE EVENING* Yes AIMOVIG AUTOINJECTOR 140 mg/mL auto-injector INJECT 1ML SUBCUTANEOUSLY EVERY MONTH Yes simvastatin (ZOCOR) 20 mg tablet Take 20 mg by mouth every evening. Yes fluticasone (FLONASE) 50 mcg/actuation nasal spray Use 1 [place] in each nostril twice daily. Yes albuterol HFA (PROVENTIL HFA, VENTOLIN HFA) 90 mcg/actuation inhaler Inhale 1-2 Puffs as instructed as needed for Wheezing/Shortness of Breath. Yes traMADol (ULTRAM) 50 mg tablet Take 1 tablet by mouth every 8 hours as needed for pain for up to 5 days. acetaminophen (TYLENOL) 325 mg tablet 2 tablets by ORAL/FEEDING TUBE route every 4 hours as needed for pain or fever (specify temp.). methocarbamol (ROBAXIN) 500 mg tablet Take 1 tablet by mouth three times a day as needed first line for muscle spasm or jaw pain Blood Pressure Monitor 1 each two times a day. lurasidone (LATUDA) 20 mg tablet TAKE 1 TABLET BY MOUTH EVERY DAY WITH BREAKFAST promethazine (PHENERGAN) 25 mg tablet 1 po tid prn headache or nausea QUEtiapine (SEROQUEL) 50 mg tablet take 1 tablet by mouth three times daily as needed for anxiety benzocaine-menthol (CEPACOL) 15-3.6 mg lozg Use 1 Lozenge as instructed every 2 hours as needed. CPAP Change the pressure of autoBipap with EPAP 5-15 mh2o and PS 4-8cmh2O. His DME company is [employer] , new mask to fit patient preference, ramp, humidification and unlimited supplies Please send us machine download in 1 month CPAP Please send us machine download in 1 month Cetirizine 10 mg cap Take 1-2 tablets by mouth as needed. Discharge Medications: Your medical reconciliation is as noted below. However do not start any aspirin, plavix, or NSAID medications unless noted below. Take tylenol or physician ordered pain medications for pain. Do not take NSAIDs (i.e. Ibuprofen/motrin, aleve) for pain unless otherwise notified by Surgeon. GENERAL INFORMATION ABOUT TAKING MEDICATIONS: Take all medications as directed. Do not skip a dose of medication. If you forget to take your medication, do so as soon as you remember, but do not take a double dose. Do not take any usjy-jae-vgbqpcx medications or herbal therapies without consulting your health care provider, or pharmacist. Have a routine for taking your medication: take at the same time each day. Use a pill box to help you remember to take your medication. Keep an updated copy of your medication list with you at all times. Medication List START taking these medications acetaminophen 325 mg tablet Commonly known as: TYLENOL 2 tablets by ORAL/FEEDING TUBE route every 4 hours as needed for pain or fever (specify temp.). methocarbamol 500 mg tablet Commonly known as: ROBAXIN Take 1 tablet by mouth three times a day as needed first line for muscle spasm or jaw pain CONTINUE taking these medications AIMOVIG AUTOINJECTOR 140 mg/mL auto-injector Generic drug: erenumab-aooe INJECT 1ML SUBCUTANEOUSLY EVERY MONTH albuterol HFA 90 mcg/actuation inhaler Commonly known as: PROVENTIL HFA, VENTOLIN HFA benzocaine-menthol 15-3.6 mg Lozg Commonly known as: CEPACOL Use 1 Lozenge as instructed every 2 hours as needed. Blood Pressure Monitor 1 each two times a day. Cetirizine 10 mg Cap clonazePAM 2 mg tablet Commonly known as: KlonoPIN Take 1 tablet by mouth three times a day for 90 days. cloNIDine HCl 0.1 mg tablet Commonly known as: CATAPRES Take 0.1 mg in the morning and 0.2 mg at night CPAP Change the pressure of autoBipap with EPAP 5-15 mh2o and PS 4-8cmh2O. His DME company is [employer] , new mask to fit patient preference, ramp, humidification and unlimited supplies Please send us machine download in 1 month CPAP Please send us machine download in 1 month fluticasone 50 mcg/actuation nasal spray Commonly known as: FLONASE lacosamide 100 mg Tab Commonly known as: VIMPAT Take 1 tablet by mouth every 12 hours for 90 days. * lurasidone 80 mg tablet Commonly known as: LATUDA TAKE 1 TABLET BY MOUTH DAILY WITH DINNER *LOWER THE SEROQUEL TO 100 MG IN THE EVENING* * lurasidone 20 mg tablet Commonly known as: LATUDA TAKE 1 TABLET BY MOUTH EVERY DAY WITH BREAKFAST promethazine 25 mg tablet Commonly known as: PHENERGAN 1 po tid prn headache or nausea * QUEtiapine 50 mg tablet Commonly known as: SEROquel take 1 tablet by mouth three times daily as needed for anxiety * QUEtiapine 200 mg tablet Commonly known as: SEROquel TAKE 1 TABLET BY MOUTH EVERY NIGHT AT BEDTIME rizatriptan 10 mg disintegrating tablet Commonly known as: MAXALT [employer] 1 TABLET ON TONGUE AND ALLOW TO DISSOLVE NEEDED AT ONSET OF HEADACHE. MAY REPEAT AFTER 2 HOURS. DO NOT EXCEED 30MG PER DAY sertraline 100 mg tablet Commonly known as: ZOLOFT TAKE 3 TABLETS BY MOUTH ONCE DAILY simvastatin 20 mg tablet Commonly known as: ZOCOR * This list has 4 medication(s) that are the same as other medications prescribed for you. Read the directions carefully, and ask your doctor or other care provider to review them with you. STOP taking these medications diclofenac (EC) 75 mg EC tablet Commonly known as: VOLTAREN ibuprofen 800 mg tablet Commonly known as: MOTRIN LORazepam 1 mg tablet Commonly known as: ATIVAN nadolol 80 mg tablet Commonly known as: CORGARD Where to Get Your Medications These medications were sent to [facility] [address] [place] [id number] Hours: Thursday-Thursday, 8am-6pm methocarbamol 500 mg tablet You can get these medications from any pharmacy You don't need a prescription for these medications acetaminophen 325 mg tablet Please remember to discard old medication lists and to update your records with all of your healthcare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 times a day for 180 days. 90 tablet 5 sertraline (ZOLOFT) 100 mg tablet take 3 tablets by mouth once daily 90 tablet 10 QUEtiapine (SEROQUEL) 200 mg tablet take 1 tablet by mouth every night at bedtime 30 tablet 10 simvastatin (ZOCOR) 20 mg [...] as needed for anxiety 90 tablet 10 nadolol (CORGARD) 80 mg tablet Take 1 tablet by mouth once daily. 90 tablet 1 benzocaine-menthol (CEPACOL) 15-3.6 mg lozg Use 1 Lozenge as instructed every 2 hours as needed. 30 Lozenge 0 LORazepam (ATIVAN) 1 mg tablet Take 1 tablet by mouth as needed (for seizure lasting >3 minutes. Max 2 doses in 24 hours.) for up to 180 days. 10 tablet 1 CPAP Change the pressure of autoBipap with EPAP 5-15 mh2o and PS 4-8cmh2O. His DME company is [employer] , new mask to fit patient preference, ramp, humidification and unlimited supplies Please send us machine download in 1 month 1 Device 0 CPAP Please send us machine download in 1 month 1 Device 0 LORazepam (ATIVAN) 1 mg tablet Take 1 tablet by mouth as needed (for seizure lasting >3 minutes. Max 2 doses in 24 hours.) for up to 180 days. 10 tablet 2 Cetirizine 10 mg cap Take 1-2 tablets by mouth as needed. fluticasone (FLONASE) 50 mcg/actuation nasal spray Use 1 [place] in each nostril twice daily. albuterol HFA (PROVENTIL HFA, VENTOLIN HFA) 90 mcg/actuation inhaler Inhale 1-2 Puffs as instructed as needed for Wheezing/Shortness of Breath. No current facility-administered medications for this visit. ROS: GENERAL: Negative for malaise, significant weight loss and fever. HEENT: No changes in hearing or vision, no nose bleeds or other nasal problems. RESPIRATORY: Negative for cough, wheezing and shortness of breath. CARDIOVASCULAR: Negative for chest pain, leg swelling and palpitations. GI: Negative for abdominal discomfort, blood in stools or black stools. : Negative for dysuria, frequency and incontinence. MUSCULOSKELETAL: Negative for joint pain or swelling, back pain, and muscle pain. SKIN: Negative for lesions, rash, and itching. HEMATOLOGY/LYMPHOLOGY Negative for prolonged bleeding, bruising easily, and swollen nodes. ENDOCRINE: Negative for cold or heat intolerance, polyuria, polydipsia and goiter. NEURO: Seizures PFSH: PSYCHIATRIC HISTORY: Diagnoses: Bipolar II, atypical depression, PTSD Current Psychiatrist: Yes, Dr. Cal[facility] Current Therapist: Yes, but cannot recall Psychiatric Hospitalization(s): yes, [facility] 10/08 History of Suicide Attempts: Yes, with Dr. Chi. Was on a ventilator at that time. 3 OD, device at home dispenses medication. Medications are shipped to him monthly. Keeps medications at her house. HERO device. Most recent suicide attempt was earlier in september 2023, overdosed Previous Psychiatric Medication Trials: Zoloft, Seroquel, Ritalin (hyperactive), Clonidine (misused), Adderall (suicidal), vistaril, phenobarbital, , Current Outpatient Psychiatric Medications: Zoloft, Seroquel SUBSTANCE ABUSE HISTORY: Alcohol: No history of use or dependence Marijuana: No history of use or dependence Cocaine: No history of use or dependence Opioids: No history of use or dependence Other Substance Use: No history of use or dependence SOCIAL HISTORY: Childhood: Pt was born in [place], [place]. Moved around a lot. Lived in [place], [place]. He would go to his grandparents home in [facility]. Relationships: single, never , recently broke up with GF. It was too much stress for him. She kept making excuses and it was his job to support her habits. They were dating off and on for 7 years. She cheated on her for the first part of the relationship. Has not talked to her in a few weeks. Had to set limits with her. 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 Does not know how his mother is. [place] that she gets migraines. Never really caused the CVAs. Has to burn nerves in her neck and has fusion of her cervical spine. Legal History: None Amish Affiliation(s): Non holiness Abuse History: He denied a history of emotional, physical or sexual abuse, or any history of trauma. in [place]. FAMILY PSYCHIATRIC HISTORY: None VITAL SIGNS: There were no vitals filed for this visit. MENTAL STATUS EXAM: CONSTITUTIONAL: Well groomed, Appropriately dressed, Casually dressed, Well developed, Well nourished ORIENTATION: Person, Place, Time and Situation MEMORY: Recent intact, Remote intact, Immediate intact CONCENTRATION: Normal MOOD: I am upset AFFECT: Full and appropriate to topic SPEECH : Clear AND distinct LANGUAGE : Normal ASSOCIATIONS: Intact THOUGHT PROCESS : Perseverative PROGRESSION : There was no evidence of disturbance in thought perception or progression. FUND OF KNOWLEDGE : Appropriate and Adequate SUICIDE: None HOMICIDE: None DATA REVIEWED: Records, Phone, and Electronic medical record Assessment: Mr. Coles is a 43 year old male with a PMH of epilepsy, BIpolar II vs Atypical depresion, REENA, VNS, HIMA who was previously followed by Leann Pimentel APRN. 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 Recent overdose resulting in ICU admission at the beginning of September. Doing better. Doing well with addition of clonidine. Today, denies suicidal thoughts. Doing well at work! Frustrated with pain management and limited coordination. Finally found a new therapist. Will not make med changes at this time. DIAGNOSIS: 1. Bipolar 2 versus atypical depression 2. Generalized anxiety disorder 3. Rule out autism spectrum disorder 4. Cluster B/ C traits 5. PTSD per history 6. Epilepsy status post VNS 7. HIMA 8. ADHD GAF: 60 -60-51 Moderate symptoms or moderate difficulty in social, occupational or school functioning. TREATMENT PLAN: 1. Continue clonidine 0.1 mg twice daily 2. Continue Latuda 20 mg with breakfast and 80 mg with dinner 3. Continue sertraline 300 mg daily 4. Continue quetiapine 200 mg nightly 5. Continue group therapy 6. Continue individual therapy 7. Follow up in 6 weeks I spent a total of 30 minutes on the date of the service which included preparing to see the patient, [id number] patient care, completing clinical documentation, obtaining and/or reviewing separately obtained history, performing a medically appropriate examination, counseling and educating the patient/family/caregiver, ordering medications, tests, or procedures, communicating with other HCPs (not separately reported), independently interpreting results (not separately reported), communicating results to the patient/family/caregiver, and care coordination (not separately reported). ADD ON PSYCHOTHERAPY CODE : No SIGNATURE: Sobeida Cadena MD PATIENT NAME: Bishnu Coles DATE: June 15, 2024 TIME: 1:32 PM CNPN Observed: 06/08/2024 12:00 AM Status: COMPLETED Source: [facility] Telephone (NE50MN) SUSANABISHNU ([id number]) 1980 M Date Time Provider Department 06/08/24 LINO MENDIOLA NE50MN During your visit today, we recorded the following information about you: Francheska José 06/08/2024 9:13 AM Signed Medication Concern Person Calling Bishnu Coles (home) Name of medication Lyrica Concern with medication Did Jodi Boss in Pain Management contact Dr. Mendiola for approval for patient to use Lyrica for his arthritis? Patient of Roula Thorpe RN 06/08/2024 12:44 PM Signed Did not [...] MOUTH TWICE A DAY - rizatriptan (MAXALT MANAGER [employer]) [address] 1 TABLET [...] and PS 4-8cmh2O. His DME company is [employer] , new mask to fit patient preference, [...] (FLONASE) 50 mcg/actuation nasal spray Use 1 [place] in each nostril twice daily. - albuterol [...] pain with bilateral *03/30/2024 Encounter Status:Closed by ROULA VELASQUEZ on 06/08/24 ALIRIO Observed: 06/06/2024 12:00 AM Status: COMPLETED Source: [facility] Telephone (PAINLN) BISHNU COLES ([id number]) 1980 M Date Time Provider Department 06/06/24 JODI BOSS During your visit today, we recorded the following information about you: Jodi Boss APRN.ENZO 06/07/2024 1:23 PM Addendum Office visit reviewed with Dr. Blankenship. He is concerned about adding Lyrica to patient's current regimen of Vimpat and Klonopin. He is concerned that addition back of this medication will call issues with increased sedation and lethargy. Xray of cervical spine showed mild arthritis Please let patient know recommendations Jodi Boss APRN.Daysi Francis LPN 06/08/2024 9:13 AM Signed [...] MOUTH TWICE A DAY - rizatriptan (MAXALT MANAGER FITNESS) [address] 1 TABLET [...] and PS 4-8cmh2O. His DME company is [employer] , Tamr mask to fit patient preference, ramp, humidification [...] (FLONASE) 50 mcg/actuation nasal spray Use 1 [place] in each nostril twice daily. - albuterol [...] pain with bilateral *03/30/2024 Encounter Status:Closed by DAYSI PURDY on 06/08/24 XR CERVICAL 4V AP/LAT/OBL Observed: 05/18 9:03 AM Status: F Source: [facility] * * *Final Report* * * DATE [...] soft tissues. IMPRESSION: 1. Minimal cervical spondylosis Chronic Specialist: APARNA Transcribe Date/Time: May 27 2024 12:01P Dictated by : LUIS FLOYD MD This examination was interpreted and the report reviewed and electronically signed by: LUIS FLOYD MD on May 27 2024 12:17PM EST [id number] PROGRESS Observed: 05/27/2024 9:02 AM Status: COMPLETED Source: [facility] HNO ID: [id number] Author: OLAF MONAE RT(R) Service: ? Author Type: Technologist Type: Progress Notes Filed: 05/27/2024 09:02 Note Text: Radiology Service Progress Note PATIENT NAME: Bishnu Coles DATE OF SERVICE: May 27, 2024 TIME: [...] PATIENT PRESENTS WITH AN IMPLANTABLE OR ATTACHED WARDROBE ATTENDANT: No RADIOLOGY DEPARTMENT: General X-ray: Exam(s) Completed: Spine X-Ray(s): Cervical AP / LAT / OBL PERIPHERAL IV DATA: Not applicable SIGNED BY: RT Clayton(R) May 27, 2024 9:02 AM PROGRESS Observed: 05/27/2024 8:00 AM Status: COMPLETED Source: [facility] HNO ID: [id number] Author: JODI BOSS APRN.WAREHOUSE RECEIVER Service: ? Author Type: Nurse Practitioner Type: Progress Notes Filed: 06/07/2024 14:01 Note Text: Mr. Coles a 43 year old male returns today for follow up of Mri Results, he states that symptoms have not changed. PAIN: Pain Yes. Location: low back, rates pain a 5 on a pain scale of 1-10. Patient describes pain as aching, duration to the present time occuring daily x 4. MEDICATIONS: Medications reviewed and verified. Current Outpatient Medications Medication Sig rizatriptan (MAXALT MANAGER FITNESS) [address] 1 TABLET [...] and PS 4-8cmh2O. His DME company is [employer] , new mask to fit patient preference, [...] (FLONASE) 50 mcg/actuation nasal spray Use 1 [place] in each nostril twice daily. albuterol HFA [...] supervised home exercise program (HEP): No 5. Dredge Operator: No Passive conservative therapy lasting 6 weeks [...] undergone physical therapy for 6 weeks at [facility]. He has been taking Diclofenac 03/30/2024 PROMIS [...] which included preparing to see the patient, [id number]-ua-irob patient care, completing clinical documentation, obtaining and/or [...] red flag symptoms to watch for Jodi Boss APRN.WAREHOUSE RECEIVER May 28, 2024 CNOV Observed: 05/27/2024 8:00 AM Status: COMPLETED Source: [facility] Office Visit (PAINLN) SUSANABISHNU Carmen ([id number]) 1980 M Date Time Provider Department 05/27/24 8:00 AM JODI BOSS During your visit today, we recorded the following information about you: Pulse Weight Height 81/minute 99.8 kg 1.803 m Jodi Boss APRN.WAREHOUSE RECEIVER 06/07/2024 2:01 PM Signed Mr. Coles a 43 year old male returns today for follow up of Mri Results, he states that symptoms have not changed. PAIN: Pain Yes. Location: low back, rates pain a 5 on a pain scale of 1-10. Patient describes pain as aching, duration to the present time occuring daily x 4. MEDICATIONS: Medications reviewed and verified. Current Outpatient Medications Medication Sig rizatriptan (MAXALT MANAGER FITNESS) [address] 1 TABLET [...] and PS 4-8cmh2O. His DME company is [employer] , Tamr mask to fit patient preference, ramp, humidification [...] (FLONASE) 50 mcg/actuation nasal spray Use 1 [place] in each nostril twice daily. albuterol HFA [...] supervised home exercise program (HEP): No 5. Dredge Operator: No Passive conservative therapy lasting 6 weeks [...] undergone physical therapy for 6 weeks at [facility]. He has been taking Diclofenac 03/30/2024 PROMIS [...] which included preparing to see the patient, [id number]-vp-[id number] patient care, completing clinical documentation, obtaining and/or [...] red flag symptoms to watch for Jodi Boss APRN.WAREHOUSE RECEIVER May 28, 2024 Allergies As of Date: 05/27/2024 Noted Allergy Reaction KEPPRA (LEVETIRACETAM) 07/31/2010 14 - Other: See Comments Comments: Increases his ADHD KETOROLAC TROMETHAMINE 09/14/2016 16 - Unknown Comments: unknown PRISTIQ (DESVENLAFAXINE) 01/12/2014 14 - Other: See Comments Comments: sz Date Reviewed: 05/27/2024 Reviewed by: Era Zabala MA - Fully Assessed Primary Visit Diagnosis:Neck pain [M54.2] Other Visit Diagnosis:Lumbar spondylolysis [M43.06] Order(s):XR CERV OTHER 4V AP/LAT/OBL [[id number]] Order #: [id number] FUTURE Prescriptions as of 06/07/2024 - lurasidone (LATUDA) 20 mg tablet TAKE 1 TABLET BY MOUTH EVERY DAY WITH BREAKFAST - cloNIDine HCl (CATAPRES) 0.1 mg tablet TAKE 1 TABLET BY MOUTH TWICE A DAY - rizatriptan (MAXALT MANAGER FITNESS) [address] 1 TABLET [...] and PS 4-8cmh2O. His DME company is [employer] , Tamr mask to fit patient preference, ramp, humidification [...] (FLONASE) 50 mcg/actuation nasal spray Use [address] [place] in each nostril twice daily. - albuterol HFA (PROVENTIL HFA, VENTOLIN HFA) 90 mcg/actuation inhaler Inhale 1-2 Puffs as instructed as needed for Wheezing/Shortness of Breath. Problem List As Of Date 05/27/2024 Noted Resolved Epilepsy (HCC) [G40.909] 06/18/2004 Epilepsy with altered consciousness without int*07/31/2010 Depression with anxiety [F41.8] 01/12/2014 Respiratory failure requiring intubation (HCC) *04/07/2016 Acute respiratory failure ([facility]) [J96.00] 04/07/2016 03/26/2019 Hx of suicide attempt [Z91.51] 04/07/2016 Bipolar II disorder ([facility]) [F31.81] 07/02/2016 Obesity, Class I, BMI 30-34.9 [...] bilateral low back pain with bilateral *03/30/2024 Level of Service: OFFICE/OUTPATIENT ESTABLISHED MOD MDM 30 MIN [83691] Additional E/M codes: VISIT CPLX INHERENT EANDM ASSOC WITH MED * Encounter Status:Closed by JODI BOSS on 06/07/24 CNCO Observed: 05/27/2024 12:00 AM Status: COMPLETED Source: [facility] Letter Text PROGRESS Observed: 05/24/2024 11:08 AM Status: COMPLETED Source: [facility] HNO ID: [id number] Author: NADIRA PURDY APRN.ENZO Service: ? Author Type: Nurse Practitioner Type: Progress Notes Filed: 05/24/2024 11:10 Note Text: Patient returned from MRI. VNS reset to pre-imaging settings with output current at 1.625 and magnet current at 1.875. Tolerated well. Nadira Purdy APRN.WAREHOUSE RECEIVER MRI LUMBAR SPINE WO IVCON Observed: 11/2024 10:30 AM Status: F Source: [facility] * * *Final Report* * * DATE [...] crest and there are 5 lumbar-type vertebrae. Chronic Specialist: APARNA Transcribe Date/Time: May 24 2024 10:33A Dictated by : BÁRBARA DOTSON MD This examination was interpreted and the report reviewed and electronically signed by: GORDON FERRARO MD on May 24 2024 11:05AM EST [id number] CNOV Observed: 05/24/2024 10:30 AM Status: COMPLETED Source: [facility] Office Visit (MONIE) BISHNU COLES ([id number]) 1980 M Date Time Provider Department 05/24/24 10:30 AM NADIRA PURDY During your visit today, we recorded the following information about you: Nadira Purdy APRN.CNP 05/24/2024 11:10 AM Signed Patient returned from MRI. VNS reset to pre-imaging settings with output current at 1.625 and magnet current at 1.875. Tolerated well. Nadira Purdy APRN.CNP Referring Provider: KRZYSZTOF BLANKENSHIP [[id number]] Allergies As of Date: 05/24/2024 Noted Allergy Reaction KEPPRA (LEVETIRACETAM) 07/31/2010 14 - Other: See Comments Comments: Increases his ADHD KETOROLAC TROMETHAMINE 09/14/2016 16 - Unknown Comments: unknown PRISTIQ (DESVENLAFAXINE) 01/12/2014 14 - Other: See Comments Comments: sz Date Reviewed: 05/24/2024 Reviewed by: Nichol Valladares MA - Fully Assessed Reason for Visit: VNS Visit [2781] Primary Visit Diagnosis:Partial epilepsy with impairment of consciousness, intractable (HCC) [G40.219] Other Visit Diagnosis: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 [Z96.89] Prescriptions as of 05/24/2024 - rizatriptan (MAXALT MANAGER FITNESS) [address] 1 TABLET [...] and PS 4-8cmh2O. His DME company is [employer] , new mask to fit patient preference, [...] (FLONASE) 50 mcg/actuation nasal spray Use [address] [place] in each nostril twice daily. - albuterol [...] bilateral low back pain with bilateral *03/30/2024 Letter Text Encounter Status:Closed by NADIRA PURDY on 05/24/24 PROGRESS Observed: 05/24/2024 9:40 AM Status: COMPLETED Source: [facility] HNO ID: [id number] Author: MAURA MOORE RT(R) Service: Radiology Author Type: Technologist Type: Progress Notes Filed: 05/24/2024 10:27 Note Text: Radiology Service Progress Note PATIENT NAME: Bishnu Coles DATE OF SERVICE: May 24, 2024 TIME: [...] RELEVANT IMPLANT DATA REVIEWED: Yes VNS LIVNA [id number] turned off before appointment 15min in 30 min window PATIENT PRESENTS WITH AN IMPLANTABLE OR ATTACHED WARDROBE ATTENDANT: No RADIOLOGY DEPARTMENT: MR; Exam(s) Completed: Spine: Lumbar spine PERIPHERAL IV DATA: Not applicable SIGNED BY: RT Patricia(R) May 24, 2024 10:24 AM PROGRESS Observed: 05/24/2024 9:26 AM Status: COMPLETED Source: [facility] HNO ID: [id number] Author: NADIRA PURDY APRN.WAREHOUSE RECEIVER Service: ? Author Type: Nurse Practitioner Type: Progress Notes Filed: 05/24/2024 11:10 Note Text: CC: VNS reprogramming prior to MRI lumbar spine HPI: This is a 43 year old male who presents to the outpatient clinic alone. He is scheduled for a lumbar MRI and presents for VNS shut off. Tolerating stimulation well. No complaints. Current Outpatient Medications Medication Sig rizatriptan (MAXALT MANAGER FITNESS) [address] 1 TABLET [...] and PS 4-8cmh2O. His DME company is [employer] , new mask to fit patient preference, [...] (FLONASE) 50 mcg/actuation nasal spray Use [address] [place] in each nostril twice daily. albuterol HFA [...] Model Number SenTiva M1000 VNS Serial Number [id number] Date of Implantation August 31, 2023 Stimulation [...] well. To return for reprogramming after imaging Nadira Purdy APRN.WAREHOUSE RECEIVER CNOV Observed: 05/24/2024 8:30 AM Status: COMPLETED Source: [facility] Office Visit (MONIE) BISHNU COLES ([id number]) 1980 M Date Time Provider Department 05/24/24 8:30 AM NADIRA PURDY During your visit today, we recorded the following information about you: Nadira Purdy APRN.ENZO 05/24/2024 11:10 AM Addendum CC: VNS reprogramming prior to MRI lumbar spine HPI: This is a 43 year old male who presents to the outpatient clinic alone. He is scheduled for a lumbar MRI and presents for VNS shut off. Tolerating stimulation well. No complaints. Current Outpatient Medications Medication Sig rizatriptan (MAXALT MANAGER FITNESS) [address] 1 TABLET [...] and PS 4-8cmh2O. His DME company is [employer] , new mask to fit patient preference, [...] (FLONASE) 50 mcg/actuation nasal spray Use 1 [place] in each nostril twice daily. albuterol HFA (PROVENTIL HFA, VENTOLIN HFA) 90 mcg/actuation inhaler Inhale 1-2 Puffs as instructed as needed for Wheezing/Shortness of Breath. No current facility-administered medications for this visit. ALLERGIES Allergen Reactions Keppra [Levetiracet* Other: See Comments Increases his ADHD Ketorolac Trometham* Unknown unknown Pristiq [Desvenlafa* Other: See Comments agustin VNS Stimulation Interrogation VNS Information VNS Model Number SenTiva M1000 VNS Serial Number [id number] Date of Implantation August 31, 2023 Stimulation [...] well. To return for reprogramming after imaging Nadira Purdy APRN.WAREHOUSE RECEIVER Referring Provider: KRZYSZTOF BLANKENSHIP [[id number]] Allergies As of Date: 05/24/2024 Noted Allergy Reaction KEPPRA (LEVETIRACETAM) 07/31/2010 14 - Other: See Comments Comments: Increases his ADHD KETOROLAC TROMETHAMINE 09/14/2016 16 - Unknown Comments: unknown PRISTIQ (DESVENLAFAXINE) 01/12/2014 14 - Other: See Comments Comments: agustin Date Reviewed: 05/24/2024 Reviewed by: Nichol Valladares MA - Fully Assessed Reason for Visit: Established Patient [175] VNS Visit [5679] Primary Visit Diagnosis:Partial epilepsy with impairment of consciousness, intractable (HCC) [G40.219] Other Visit Diagnosis: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 [Z96.89] Prescriptions as of 05/24/2024 - rizatriptan (MAXALT MANAGER FITNESS) [address] 1 TABLET [...] and PS 4-8cmh2O. His DME company is [employer] , new mask to fit patient preference, [...] (FLONASE) 50 mcg/actuation nasal spray Use 1 [place] in each nostril twice daily. - albuterol [...] bilateral low back pain with bilateral *03/30/2024 Letter Text Encounter Status:Closed by NADIRA PURDY on 05/24/24 ALIRIO Observed: 05/24/2024 12:00 AM Status: COMPLETED Source: [facility] Telephone (PAINLN) BISHNU COLES ([id number]) 1980 M Date Time Provider Department 05/24/24 JODI BOSS During your visit today, we recorded the following information about you: Ladi Turner 05/24/2024 12:31 PM Signed Bishnu is calling Jodi Boss APRN.CNP today to report that [facility] is sending his Xray images for his appointment on Thursday. Bishnu states that he wants to be sure the images are received prior to his appointment, and to please call him ahead of time if he needs to bring them on a disc. Bishnu also wanted to make sure Jodi knows he had his MRI done today Patient has been identified by name and birthdate. Duration of symptoms: N/A Person calling: self Call patient at: on cell [phone] (home) [phone] (cell) Was an appointment scheduled: No Closing statement: Results or non-symptom based questions: Thank you for calling [facility], your call will be returned within the [...] Prescriptions as of 05/24/2024 - rizatriptan (MAXALT MANAGER FITNESS) [address] 1 TABLET [...] and PS 4-8cmh2O. His DME company is [employer] mask to fit patient preference, ramp, humidification [...] (FLONASE) 50 mcg/actuation nasal spray Use 1 [place] in each nostril twice daily. - albuterol [...] pain with bilateral *03/30/2024 Encounter Status:Closed by DAYSI PURDY on 05/24/24 CNOV Observed: 04/18/2024 1:00 PM Status: COMPLETED Source: [facility] Office Visit (PSYAEM) BISHNU COLES ([id number]) 1980 M Date Time Provider Department 04/18/24 [...] day for 180 days. - rizatriptan (MAXALT MANAGER FITNESS) 10 mg disintegrating tablet DISSOLVE 1 TABLET [...] and PS 4-8cmh2O. His DME company is [employer] , new mask to fit patient preference, [...] (FLONASE) 50 mcg/actuation nasal spray Use 1 [place] in each nostril twice daily. - albuterol [...] Encounter Status:Closed by SOBEIDA GALVAN on 04/18/24 PROGRESS Observed: 04/18/2024 1:00 PM Status: COMPLETED Source: [facility] HNO ID: [id number] Author: SOBEIDA GALVAN MD Service: ? Author Type: Physician Type: Progress Notes Filed: 04/18/2024 13:11 Note Text: Called patient. Is out sick. Will reschedule CNPN Observed: 04/01/2024 12:00 AM Status: COMPLETED Source: [facility] Telephone (WIMRI) BISHNU COLES ([id number]) 1980 M Date Time Provider Department 04/01/24 MARILYN PADILLA [facility] During your visit today, we recorded the following information about you: Marilyn Padilla, RT(R) 04/01/2024 11:07 AM Signed Marylu, We approved Bishnu to get his MRI but unfortunately, due to the restrictions of the MRI from the device, we may not get the whole lumbar spine. Obviously every patient is different but there is a chance we could get some cut off at L-1, but we will not know until we scan him. If you have any questions please let us know. Thanks, Tim Padilla RT(R)(CT)(MR), MRSO Allergies As of Date: 04/01/2024 [...] day for 180 days. - rizatriptan (MAXALT MANAGER FITNESS) 10 mg disintegrating tablet DISSOLVE 1 TABLET [...] and PS 4-8cmh2O. His DME company is [employer] , new mask to fit patient preference, [...] (FLONASE) 50 mcg/actuation nasal spray Use 1 [place] in each nostril twice daily. - albuterol [...] pain with bilateral *03/30/2024 Encounter Status:Closed by MARILYN PADILLA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 [facility] 07/31/2010 DRUG INGREDI/419 529217(SNOM ED CT) LEVETIRACETAM OTHER: SEE C [facility] ENCOUNTERS ADMIT/DISCHARGE ACCOUNT NUMBER ADMITTING ENCOUNTER CLASS LOCATION SOURCE 01/19/2025 [id number] Taiwo [place] [facility] [place] 10/13/2024/10/14/19 [id number] Ambulatory [facility] ding:NE50 [facility] 09/25/2024/09/28/19 25 [id number] GOKUL JOYCE Inpatient Encounter [facility] ding:C067Yis m: [id number]: H060-10 [facility] 09/21/2024/09/22/19 25 [id number] Ambulatory [facility] ding:PSEM [facility] 09/19/2024/09/20/19 25 [id number] KRZYSZTOF BLANKENSHIP E Ambulatory [facility] ding:Nicole m: AVENBed: 02 [facility] 08/31/2024/09/01/19 25 [id number] KRZYSZTOF BLANKENSHIP E Ambulatory [facility] ding:X963Flf m: MANAN-009Bed: L010-09 [facility] 08/17/2024/08/18/19 25 [id number] KRZYSZTOF BLANKENSHIP E Ambulatory [facility] ding:A180Rqt m: MANAN-015Bed: L010-15 [facility] 08/02/2024/08/03/19 25 [id number] Ambulatory [facility] ding:PSEM [facility] 07/27/2024/07/28/19 25 [id number] Ambulatory [facility] ding:LNPM [facility] 06/15/2024/06/15/19 25 [id number] [facility]ulatory [facility] ding:PSEM [facility] 05/27/2024/05/27/19 25 [id number] Ambulatory [facility] ding:LNRG [facility] 05/27/2024/05/27/19 25 [id number] Ambulatory [facility] ding:LNPM [facility] 05/25/2024/05/25/19 25 [id number] Ambulatory Building:NOM S ORTHO [facility] EPIC 05/25/2024/05/25/19 25 [id number] Ambulatory Building:N[facility] S [facility] EP[facility] 05/24/2024/05/24/19 25 [id number] [facility] 05/24/2024/05/24/19 25 [id number] [facility]MMR[facility] 05/24/2024/05/24/19 25 [id number] Ambulatory [facility] ding:NSES [facility] 05/23/2024/05/23/19 25 [id number] Ambulatory Building:[facility] EPIC 05/23/2024/05/23/19 25 [id number] Ambulatory Building:[facility] EPIC 05/23/2024/05/23/19 25 [id number] Ambulatory Building:[facility] 03/30/2024/03/30/20 24 [id number] Ambulatory [facility] ding:LNPM [facility] 02/29/2024/02/29/20 24 [id number] Ambulatory [facility] ding:PSEM [facility] 02/22/2024/02/22/20 24 [id number] Ambulatory Building:NOM SCIPT [facility] EPIC PAYERS ENCOUNTER GUARANTOR PAYER SUBSCRIBER SOURCE 01/19/[address] [place] [address]Xwf: () Primary Insurance:Self PayPolicy Number: Effective Date:2023-07-20 [facility] Primary Insurance:MEDICARE A AND BPolicy Number: [id number] Date:4065-53-50Uyky Name:Felicity SHEAKatie: [id number] [place] [id number] [facility] 10/13/2024 Secondary Insurance[place] MED[place] Number: [id number] Date:6002-54-80Lggl Name:Jared COLESB: [id number] 09/25/2024 Primary Insurance:MEDICARE A AND BPolicy Number: [id number] Date:4055-25-90Tvkx Name:Felicity COLESB: [id number] [address] 09/25/2024 Secondary Insurance:[place] MED[place] Number: [id number] Date:3646-18-68Qtje Name:Jared COLESB: [id number] [address] 09/21/2024 Primary Insurance:MEDICARE A AND BPolicy Number: [id number] Date:5675-36-51Xbbb Name:Felicity COLESB: [id number] [address] 09/21/2024 Secondary Insurance:[place] MED[place] Number: [id number] Date:9887-31-14Fqut Name:Jared COLESB: [id number] [address] 09/19/2024 Primary Insurance:MEDICARE A AND BPolicy Number: [id number] Date:4610-84-23Lcsb Name:Felicity COLESB: [id number] [address] 09/19/2024 [place] MED[place] Number: [id number] Date:0218-78-99Dkzr Name:Jared SHEAB: [id number] [address] 08/31/2024 Primary Insurance:MEDICARE A AND BPolicy Number: [id number] Date:0211-78-88Xgvu Name:Felicity SHEAB: [id number] [address] 08/31/2024 Secondary Insurance:[place] MED[place] Number: [id number] Date:6374-93-56Xcyy Name:Jared SHEAB: [id number] [address] 08/17/2024 Primary Insurance:MEDICARE A AND BPolicy Number: [id number] Date:9037-88-00Aizm Name:Felicity COLESB: [id number] [address] 08/17/2024 Secondary Insurance:[place] MED[place] Number: [id number] Date:6299-58-42Sfup Name:Jared SHEAB: [id number] [address] 08/02/2024 Primary Insurance:MEDICARE A AND BPolicy Number: [id number] Date:2564-12-97Obzf Name:Felicity COLESB: [id number] [address] 08/02/2024 Secondary Insurance:[place] MED[place] Number: [id number] Date:3450-80-10Znmo Name:Jared SHEAB: [id number] [address] 07/27/2024 Primary Insurance:MEDICARE A AND BPolicy Number: [id number] Date:7224-20-60Yuho Name:Felicity COLESB: [id number] [address] 07/27/2024 Secondary Insurance:[place] MEDICA[place] Number: [id number] Date:5434-28-89Kquk Name:Jared GRIJALVA: [id number] [address] 06/15/2024 Primary Insurance:MEDICARE A AND BPolicy Number: [id number] Date:7941-77-13Uqsk Name:Felicity SHEAB: [id number] [address] 06/15/2024 Secondary Insurance:[place] Number: [id number] Date:2264-34-29Fuml Name:Jared GRIJALVA: [id number] [address] 05/27/2024 Primary Insurance:MEDICARE A AND BPolicy Number: [id number] Date:8331-27-74Cddf Name:Felicity SHEAB: [id number] [address] 05/27/2024 Secondary Insurance:[place] Number: [id number] Date:6601-63-21Mhvf Name:Jared SHEAB: [id number] [address] 05/27/2024 Primary Insurance:MEDICARE A AND BPolicy Number: [id number] Date:7462-64-68Sbdy Name:Felicity GRIJALVA: [id number] [address] 05/27/2024 Secondary Insurance:[place] MED[place] Number: [id number] Date:2067-26-87Nwrr Name:Jared GRIJALVA: [id number] [address] 05/25/2024 BISHNU SHEAB: [place], [place] [address]Tel: () Primary Insurance:MEDICAREPoli cy Number: [id number] Date:0195-64-45Ewfq Name:Medicare BRYAN W HARDYDOB: [id number] [place] [address] [facility] 05/25/2024 [place] Insurance[place] Number: [id number] Date:2017-05-18 BISHNU SHEAB: [id number] [place] [id number] [facility] EPIC 05/25/2024 BISHNU SHEAB: [place] [id number]: () Primary Insurance:MEDICAREPoli cy Number: [id number] Date:0118-06-31Tvix Name:Medicare BRYAN W HARDYDOB: [id number] [facility] 05/25/2024 Secondary Insurance[place] Number: [id number] Date:2017-05-18 BISHNU SHEAB: [id number] [place] [id number] [facility] 05/24/2024 Primary Insurance:MEDICARE A AND BPolicy Number: [id number] Date:2215-88-14Zzhm Name:Felicity SHEAB: [id number] [place] [id number] [facility] 05/24/2024 Secondary Insurance:[place] MED[place] Number: [id number] Date:4348-29-39Qjxb Name:Jared SHEAB: [id number] [place] [id number] [facility] 05/24/2024 Primary Insurance:MEDICARE A AND BPolicy Number: [id number] Date:9638-39-48Rxck Name:Felicity SHEAB: [id number] [place] [address] [facility] 05/24/2024 Secondary Insurance:[place] MED[place] Number: [id number] Date:2377-48-65Qpmm Name:Jared SHEAB: [id number] [place] [address] [facility] 05/24/2024 Primary Insurance:MEDICARE A AND BPolicy Number: [id number] Date:8211-38-30Kyty Name:Felicity COLESDOB: [id number] [place] [address] [facility] 05/24/2024 Secondary Insurance:[place] Number: [id number] Date:4995-85-71Jsdf Name:Jared COLESDOB: [id number] [place] [address] [facility] 05/23/2024 BISHNU COLESDOB: [address], [place] [address]Dty: (HP) Primary Insurance:MEDICAREPoli cy Number: [id number] Date:7617-03-29Jypj Name:Medicare BRYAN W HARDYDOB: [id number] [place] [address] [facility] 05/23/2024 Secondary Insurance:[place] Number: [id number] Date:2017-05-18 BISHNU COLESDOB: [id number] [place] [address] [facility] 05/23/2024 BISHNU COLESDOB: [address], [place] [address]Dex: (HP) Primary Insurance:MEDICAREPoli cy Number: [id number] Date:7559-63-85Qfuq Name:Medicare BRYAN W HARDYDOB: [id number] [place] [address] [facility] 05/23/2024 Secondary Insurance:[place] Number: [id number] Date:2017-05-18 BISHNU COLESDOB: [id number] [place] [address] [facility] 05/23/2024 BISHNU COLESDOB: [place], [place] [address]Jwn: (HP) Primary Insurance:MEDICAREPoli cy Number: [id number] Date:1777-38-87Dxmu Name:Medicare BRYAN W HARDYDOB: [id number] [place] [address] [facility] 05/23/2024 Secondary Insurance:[place] Number: [id number] Date:2017-05-18 BISHNU SHEAB: [id number] [place] [id number] [facility] 03/30/2024 Primary Insurance:MEDICARE A AND BPolicy Number: [id number] Date:1837-64-24Befx Name:Felicity SHEAB: [id number] [address] 03/30/2024 Secondary Insurance:[place] MED[place] Number: [id number] Date:0037-12-08Wyyu Name:Jared SHEAB: [id number] [place] [id number] [facility] 02/29/2024 Primary Insurance:MEDICARE A AND BPolicy Number: [id number] Date:2657-84-90Iwlk Name:Felicity SHEAB: [id number] [place] [id number] [facility] 02/29/2024 Secondary Insurance:[place] MED[place] Number: [id number] Date:8435-77-37Wwpw Name:Jared SHEAB: [id number] [place] [id number] [facility] 02/22/2024 BISHNU SHEAB: [place] [address], [place] [address]Qwq: (HP) Primary Insurance:MEDICAREPoli cy Number: [id number] Date:0819-82-56Nimk Name:Medicare BRYAN W HARDYDOB: [id number] [address] [facility] 02/22/2024 Secondary Insurance:[place]ID [place] Number: [id number] Date:2017-05-18 BISHNU SHEAB: [id number] [place] [address] [facility] EPIC
--- OUTSIDE RECORDS SUMMARY | 2025-01-25 05:00 | XMS_ITS ---
Author Organization [facility] in [place] Address [address] [place] [address] Care Team Providers Care Organ Pipe Voicer Name Role Phone Jovan Clements Primary Care Provider REASON FOR VISIT SICK Encounters Encounter Location Date Provider Diagnosis [facility] [address] [place] [address] 01/25/2025 Jovan Clements Plan Of Treatment No Information Progress Notes * Lita COLESOB:1980 ( 44 yo M)Acc No.[id number]:01/25/2025 UNLOCKED PROGRESS NOTE Progress Note Patient: Bishnu MURRAY Provider: Bre Clements MD (TTC) :1980 A ge:44 Y S ex:Male Date:01/25/2025 Address:[address] [place], [place] [address] Subjective: * Chief Complaints: * 1 . SICK. * Medical History: Objective: * Vitals: Assessment: Plan: * Treatment: * * Electronic signature of Jovan Clements MD, [id number] on 02/14/2025 at 04:39 AM EDT Sign off status: Pending Visit Status: N /S N/C (No Show/No Charge) * Provider: Bre Clements MD (TTC) Date: 01/25/2025 Generated for Printi ng/Faxing/eTransmitting on: 02/14/2025 04:39 AM EDT
--- OUTSIDE RECORDS SUMMARY | 2025-02-06 11:00 | XMS_ITS ---
Author Organization [facility] es Address [address] [place] [address] Care Team Providers Care Autocad Name Role Phone Leatha Weiner Primary Care Provider Dr. Samir Arambula Unavailable [phone] REASON FOR VISIT EXT Encounters Encounter Location Date Provider Diagnosis [facility] [address] [place] [address] 2024 Samir Arambula Plan Of Treatment Next Appt Details Provider Name:Jessica Morales, 06/27/2025 02:00:00 PM, [address], [place], [address], Provider Name:Jessica Morales, 07/04/2025 02:00:00 PM, [address], [place], [address], Progress Notes * AMEYA MEZA WDOB:1980 (44 yo M)Acc No.[id number]:02/06/2025 Patient: Sonja CHAWLAAMEYA Provider: Kris Arambula DDS :1980 A ge:44 Y S ex:Male Date:02/06/2025 Address:[address] [place], [place] [address] Pcp:Leatha Weinre Subjective: * Chief Complaints: * 1 . EXT. * Medical History: Objective: * Vitals: Assessment: Plan: * Treatment: * Images: * Electronic signature of Dr. Samir Arambula , DMD on 02/14/2025 at 04:39 AM EDT Sign off status: Pending * Provider: Kris Arambula DDS Date: 0 02/06/2025 Generated for Ricardo khan/Allison on: 02/14/2025 04:39 AM EDT
[2025-02-14 04:35] VITALS: BP 150/100; PULSE 79; TEMP 36.8; O2SAT 97
--- OUTSIDE RECORDS SUMMARY | 2025-02-14 04:39 | XMS_ITS | Encounter Summary ---
Author Organization [facility] Address [address] [place] [address] Care Team Providers Care Turbine Subassembler Name Role Phone Uriel Clements MD Primary Care Provider [phone] Encounter Details Date Type Department Care Team (Late Contact Info) Description 10/28/2022 Abstract [facility] [address] [facility] [address] [place] [address] Chandu Lee, PT Social History Tobacco Use Types Packs/Day Years Used Date Smoking Tobacco: Never Alcohol Use Standard Drinks/Week Comments Not Currently 0 (1 standard drink = 0.6 oz pur e alcohol) soda/pop 2-3 cups per day Sex and Gender Information Value Date Recorded Sex Assigned at Not on file Legal Sex Male 6:50 PM EDT Gender Identity Not on file Sexual Orientation Not on file documented as of this encounter Plan of Treatment Not on file documented as of this encounter Visit Diagnoses Not on filedocumented in this encounter Care Teams Turbine Subassembler Relationship Specialty Start Date End Date Uriel Clements MD PCP - General Family Medicine 10/21/22 documented as of this encounter
--- OUTSIDE RECORDS SUMMARY | 2025-02-14 04:39 | XMS_ITS | Patient Health Record ---
Author Organization [facility] es Address [address] [address] Care Team Providers Care Pay Station Collector Name Role Phone Leatha Weiner Primary Care Provider Dr. Samir Arambula Unavailable [phone] Jessica Chauhan Unavailable Reason For Referral No Information Medications Medication SIG (Take, Route, Fr equency, Duration) Notes Start Date End Date Status Ibuprofen 800 MG 1 tablet with food o r milk as needed Orally Three times a day 07/30/2023 Active Ibuprofen 800 MG 1 tablet with food o r milk as needed Orally Three times a day 06/10/2023 Active Problems Problem Type SNOMED Code ICD Code Onset Dates Problem Status W/U Status Risk Notes Problem Posttraumatic stress disorder (35816335) PTSD (post-traum atic stress disorder) (F43.10) Active confirmed Encounters Encounter Location Date Provider Diagnosis [facility] [address] [place] [address] 04/05/2024 Samir Arambula [facility] [address] [place] [address] 01/23/2025 Samir Arambula [facility] [address] [place] [address] 01/31/2025 Jessica Morales Cracked tooth K03.81 ; Other dental procedure status Z98.818 ; Encounter for dental examination and cleaning with abnormal findings Z01.21 and Dental caries on pit and fissure surface penetrating into dentin K02.52 [facility] [address] [place] [address] 02/01/2025 Samir Arambula Cracked tooth K03.81 Assessments Encounter Date Diagnosis (ICD Code) Assessment Notes Treatment Notes Treatment Clinical Notes Section Notes 02/01/2025 Cracked tooth (ICD-10 - K03.81) 01/31/2025 Cracked tooth (ICD-10 - K03.81) 01/31/2025 Other dental procedure status (ICD-10 - Z98.818) 01/31/2025 Encounter for dental examination and cleaning with abnormal findings (ICD-10 - Z01.21) 01/31/2025 Dental caries on pit and fissure surface penetrating into dentin (ICD-10 - K02.52) Plan Of Treatment Next Appt Details Provider Name:Jessica Arce Andrew, 06/27/2025 02:00:00 PM, [address] [place], [address], Provider Name:Jessica Morales, 07/04/2025 02:00:00 PM, [address] [place], [address], Insurance Providers Payer Name Payer Address Payer Phone Subscriber Number Group Number Insured Name Patient Relationship to Insured Coverage Start Date Coverage End Date MEDICARE CGS [address] [place] [address] [id number] AMEYA MEZA Self - patient is the insured 3 B MEDICAID SEC TO [facility] [address] [place] [address] [phone] [id number] AMEYA MEZA Self - patient is the insured 3 DENTAL MEDICAID [place] [address] [place] [address] [id number] AMEYA MEZA Self - patient is the insured 3
--- OUTSIDE RECORDS SUMMARY | 2025-02-14 04:39 | XMS_ITS | Clinical Summary ---
Author Organization [facility] Address [address] [place] [address] Phone Care Team Providers Care Faa Certified Powerplant Mechanic Name Role Phone Unavailable Primary Care Provider Unavailabl e Social History Tobacco Use Types Packs/Day Years Used Date Smoking Tobacco: Never Assessed Sex and Gender Information Value Date Recorded Sex Assigned at Not on file Legal Sex Male 11:12 AM EST Gender Identity Not on file Sexual Orientation Not on file Plan of Treatment Health Maintenance Due Date Last Done Comments HIV Screening 1982 Lipid Panel 1982 Yearly Adult Physical 1982 MMR Vaccines (1 of 1 - Stand saadia series) 10/03/1983 Hepatitis C Screening 2000 Hepatitis B Vaccines (1 of 3 - 19+ 3-dose series) 2001 DTaP/Tdap/Td Vaccines (1 - Tdap) 2004 HPV Vaccines (1 - 3-dose sta ndard series) 2009 COVID-19 Vaccine ( - 2023-2 5 season) 2025 Influenza Vaccine (#1) 2025 Zoster Vaccines (1 of 2) 2032 HIB Vaccines Aged Out No longer eligi ble based on patient's age to complete this topic Hepatitis A Vaccines Aged Out No long er eligible based on patient's age to complete this topic IPV Vaccines Aged Out No longer eligi ble based on patient's age to complete this topic Meningococcal Vaccine Aged Out No james wes eligible based on patient's age to complete this topic Pneumococcal Vaccine: Pediat rics and At-Risk Adult Patients Aged Out No longer sepideh gible based on patient's age to complete this topic Rotavirus Vaccines Aged Out No longer eligible based on patient's age to complete this topic
--- OUTSIDE RECORDS SUMMARY | 2025-02-14 04:39 | XMS_ITS | Clinical Summary ---
Author Organization [facility] Address [address] [place] [address] Care Team Providers Care Centrifugal Drier Operator Name Role Phone Uriel Clements MD Primary Care Provider [phone] Allergies Active Allergy Reactions Criticality Noted Date Comments Keppra Anxiety High 09/19/2008 Medications escitalopram (LEXAPRO) 20 MG PO TABS take 20 mg by mouth. 1 po BID Active TiZANidine HCl (ZANAFLEX PO) take by mouth. Active BusPIRone HCl (BUSPAR PO) take by mouth. Active CARVEDILOL PO take by mouth. Active clonazepam (KLONOPIN) 2 MG PO TABSIndications:E pilepsy with intractable epilepsy take 1 Tab by mouth. 1 po TID 270 0 09/19/2008 Active zonisamide (ZONEGRAN) 100 MG PO CAPSIndications:E pilepsy with intractable epilepsy take 1 Cap by mouth. 4 po qhs 120 3 09/19/2008 Active pregabalin 100 MG PO CAPS take 1 Cap by mouth. 3 po BID 180 3 09/19/2008 Active oxcarbazepine (TRILEPTAL) 300 MG PO TABS take 1 Tab by mouth. 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 Family History Medical History Relation Name Comments Seizures/Epilepsy Mother Relation Name Status Comments Father Alive Mother Alive Social History Tobacco Use Types Packs/Day Years Used Date Smoking Tobacco: Never Alcohol Use Standard Drinks/Week Comments No 0 (1 standard drink = 0.6 oz pur e alcohol) Sex and Gender Information Value Date Recorded Sex Assigned at Not on file Legal Sex Male 7:56 AM EST Gender Identity Not on file Sexual Orientation Not on file Last Filed Vital Signs Vital Sign Reading Time Taken Comments Blood Pressure 135/72 09/19/2008 9:21 AM EDT Pulse 80 09/19/2008 9:21 AM EDT Temperature - - Respiratory Rate 16 09/19/2008 9:21 AM EDT Oxygen Saturation - - Inhaled Oxygen Concentration - - Weight 91.4 kg (201 lb 8 oz) 09/19/2008 9:21 AM EDT Height 177.8 cm (5' 10 ) 09/19/2008 9:21 AM EDT Body Mass Index 28.91 09/19/2008 9:21 AM EDT Plan of Treatment Health Maintenance Due Date Last Done Comments HEPATITIS C VIRUS SCREENING 1982 TETANUS 1982 HIV SCREENING DISCUSSION 1997 HEP B VACCINE (1 of 3 - 19+ 3-dose series) 2001 TDAP (ADULT) 2001 HPV VACCINE (1 - 3-dose SCDM series) 2009 LIPID SCREENING 2022 COVID-19 VACCINE ( - 2023-2 5 season) 2025 INFLUENZA VACCINE (#1) 2025 PNEUMOCOCCAL VACCINE SERIES Aged Out No longer eligible based on patient's age to complete this topic Insurance Medicare A and B Care Teams Centrifugal Drier Operator Relationship Specialty Start Date End Date Uriel Clements MD PCP - General Family Medicine 11/27/11
--- OUTSIDE RECORDS SUMMARY | 2025-02-14 04:39 | XMS_ITS | Clinical Summary ---
Author Organization [employer] Address [id number] [place] [address] Care Team Providers Care Hide Cooking Operator Name Role Phone Uriel Clements MD Primary Care Provider [phone] Allergies Active Allergy Reactions Criticality Noted Date Comments Levetiracetam 10/01/2021 Desvenlafaxine Succinate 10/01/2021 seizures Medications simvastatin (ZOCOR) 20 mg tablet 2 Active fluticasone propionate (FLONASE) 50 mcg/actuation nasal spray 1 spray by NOT APPLICABLE route in the morning and 1 spray before bedtime. Active cetirizine (ZyrTEC) 10 mg capsule Take 1-2 tablets by mouth. Active albuterol (PROVENTIL HFA;VENTOLIN HFA) 90 mcg/actuation inhaler Inhale 1-2 puffs. Active rizatriptan CRAFT ARTIST (MAXALT-CRAFT ARTIST) 10 mg disintegrating tablet Dissolve 1 tablet (10 mg total) on tongue. 3 Active lurasidone (LATUDA) 80 mg tablet Take 1 tablet (80 mg total) by mouth in the morning. Active sertraline (ZOLOFT) 100 mg tablet Take 3 tablets (300 mg total) by mouth in the morning. Active lacosamide (VIMPAT) 100 mg tablet Take 1 tablet (100 mg total) by mouth in the morning and 1 tablet (100 mg total) before bedtime. Active clonazePAM (KlonoPIN) 2 mg tablet Take 1 tablet (2 mg total) by mouth 3 (three) times a day. Active erenumab-aooe (AIMOVIG AUTOINJECTOR) 140 mg/mL auto-injector Inject 140 mg under the skin every 28 days. Active QUEtiapine (SEROquel) 50 mg tablet Take 1 tablet (50 mg total) by mouth daily as needed. Active cloNIDine (CATAPRES) 0.1 mg tablet Take 1 tablet (0.1 mg total) by mouth in the morning and 1 tablet (0.1 mg total) before bedtime. Active diclofenac (VOLTAREN) 75 mg EC tablet Take 1 tablet (75 mg total) by mouth in the morning and 1 tablet (75 mg total) before bedtime. Active nadoloL (CORGARD) 80 MG tablet Take 1 tablet (80 mg total) by mouth in the morning. Active Family History Medical History Relation Name Comments Heart attack Father Stroke Mother Relation Name Status Comments Father Mother Social History Tobacco Use Types Packs/Day Years Used Date Smoking Tobacco: Never Smokeless Tobacco: Never Tobacco Cessation:Counseling Given: Not Answered Alcohol Use Standard Drinks/Week Comments Never 0 (1 standard drink = 0.6 oz pur e alcohol) Childcare Answer Date Recorded Childcare Unknown 10/27/2018 Employment Answer Date Recorded Employment Unknown 10/27/2018 Hunger Screening Answer Date Recorded Within the past 12 months we worried whether our food would run out before we got money to buy more. Never True 01/19/2024 Within the past 12 months th e food we bought just didn't last and we didn't have money to get more. Never True 01/19/2024 Sex and Gender Information Value Date Recorded Sex Assigned at Not on file Legal Sex Male 12:00 PM EDT Gender Identity Not on file Sexual Orientation Not on file Last Filed Vital Signs Vital Sign Reading Time Taken Comments Blood Pressure 130/88 01/19/2024 1:41 PM EDT Pulse 80 01/19/2024 1:41 PM EDT Temperature 36.4 C (97.5 F) 12/28/2023 5:26 PM EDT Respiratory Rate 18 01/19/2024 1:41 PM EDT Oxygen Saturation 97% 01/19/2024 1:41 PM EDT Inhaled Oxygen Concentration - - Weight 101.3 kg (223 lb 6.4 oz) 01/19/2024 1:41 PM EDT Height 177.8 cm (5' 10 ) 01/19/2024 1:41 PM EDT Body Mass Index 32.05 01/19/2024 1:41 PM EDT Plan of Treatment Health Maintenance Due Date Last Done Comments Depression Screening 1994 DTaP,Tdap and Td Vaccines (1 - Tdap) 2001 COVID-19 Vaccine (3 - season) 2025, 02/18/2021 Influenza Vaccine 01/16/2025 Adult BMI Screening 01/18/2025 01/19/2024 Tobacco Screening 01/18/2025 01/19/2024 Medical Devices Not on file Insurance MEDICARE MEDICAID [place] Care Teams Hide Cooking Operator Relationship Specialty Start Date End Date Uriel Clements MD PCP - General Family Medicine 10/01/21
--- OUTSIDE RECORDS SUMMARY | 2025-02-14 04:39 | XMS_ITS | Clinical Summary ---
Author Organization [facility] Address [address] [place] [address] Care Team Providers Care Brewery Representative Name Role Phone Uriel Clements MD Primary Care Provider [phone] Allergies Active Allergy Reactions Criticality Noted Date Comments Desvenlafaxine Hallucinations,Unkno wn 01/12/2014 sz Ketorolac Tromethamine Unknown 09/14/2016 unknown Levetiracetam Anxiety,Unknown High 09/19/2008 Other Reaction(s): increase ADHD Increases his ADHD Medications QUEtiapine (SEROquel) 100 MG tablet 200 mg 1 (one) time each day at the same time Active simvastatin (Zocor) 20 MG tablet 20 mg 1 (one) time each day at the same time. Active albuterol HFA 90 mcg/act inhaler INHALE 1 PUFF BY MOUTH EVERY 4 HOURS NEEDED FOR 30 DAYS Active cyproheptadine (Periactin) 4 MG tablet Take 1 tablet by mouth in the morning and 1 tablet before bedtime. Active Voltaren 1 % gel Apply topically 3 Active erenumab (Aimovig) 140 MG/ML injection Inject 140 mg under the skin every 30 (thirty) days 3 Active lacosamide (Vimpat) 100 MG tablet Take 100 mg by mouth in the morning and 100 mg in the evening. 3 Active promethazine (Phenergan) 25 MG tablet 1 po tid prn headache or nausea 3 Active rizatriptan SWITCHBOARD OPERATOR RECEPTIONIST (Maxalt-SWITCHBOARD OPERATOR RECEPTIONIST) 10 MG disintegrating tablet Take 10 mg by mouth 3 Active Cetirizine HCl 10 MG capsule Take 1-2 tablets by mouth Active clonazePAM (KlonoPIN) 2 MG tablet Take 2 mg by mouth in the morning and 2 mg in the evening and 2 mg before bedtime. 4 Active fluticasone (Flonase) 50 MCG/ACT nasal spray 1 spray in the morning and 1 spray in the evening. Active cloNIDine (Catapres) 0.1 MG tablet Take 0.1 mg by mouth in the morning and 0.1 mg in the evening. 4 Active docusate sodium (Colace) 100 MG capsule TAKE 1 CAPSULE BY MOUTH TWICE A DAY NEEDED 4 Active ergocalciferol (Vitamin D2) 1.25 MG (86062 UT) capsule TAKE 1 CAPSULE BY MOUTH EVERY 7 DAYS FOR 28 DAYS 4 Active ondansetron ODT (Zofran-ODT) 4 MG disintegrating tablet 1 tablet on the tongue and allow to dissolve = for nausea Orally Q 6 hours PRN 4 Active lurasidone (Latuda) 80 MG tablet Take 80 mg by mouth in the evening. Take with meals Active nadolol (Corgard) 80 MG tablet Take 80 mg by mouth in the morning and 80 mg before bedtime. Active sertraline (Zoloft) 100 MG tablet Take 300 mg by mouth Active diclofenac sodium (Voltaren) 1 % gelIndications:Ost eoarthritis of patellofemoral joints, bilateral Apply 2 g topically in the morning and 2 g in the evening and 2 g before bedtime. 1 g 4 Active ibuprofen 800 MG tablet Take 800 mg by mouth every 8 (eight) hours if needed 4 Active Linzess 72 MCG capsule TAKE 1 CAPSULE DAILY 30 MINUTES BEFORE FIRST MEAL OF DAY ON EMPTY STOMACH 4 Active pantoprazole (ProtoNix) 40 MG EC tablet TAKE 1 TABLET BY MOUTH EVERY DAY FOR 30 DAYS 4 Active Active Problems Problem Noted Date Diagnosed Date S/P medial meniscectomy of left knee 10/23/2022 Family History Medical History Relation Name Comments Heart disease Father Heart disease Maternal Grandfather Diabetes Maternal Grandmother Stroke Mother Cancer Other Family history Coronary artery disease Other Family history Stroke Paternal Grandfather Diabetes Paternal Grandmother Relation Name Status Comments Father Maternal Grandfather Alive Maternal Grandmother Mother Alive Other Family history Paternal Grandfather Alive Paternal Grandmother Social History Tobacco Use Types Packs/Day Years Used Date Smoking Tobacco: Never Smokeless Tobacco: Former Tobacco Cessation:Counseling Given: Not Answered Alcohol Use [...] Sign Reading Time Taken Comments Blood Pressure - - Pulse - - Temperature 36.3 C (97.3 F) 11/09/2023 1:50 PM EDT Respiratory Rate - - Oxygen Saturation - - Inhaled Oxygen Concentration - - Weight 98.9 kg (218 lb) 05/25/2024 9:59 AM EST Height 175.3 cm (5' 9 ) 05/25/2024 9:59 AM EST Body Mass Index 32.19 05/25/2024 9:59 AM EST Plan of Treatment Health Maintenance Due Date Last Done Comments Influenza Vaccine (#1) 2025 Insurance MEDICARE MEDICAID [place] Care Teams Brewery Representative Relationship Specialty Start Date End Date Uriel Clements MD PCP - General Family Medicine 10/21/22
--- OUTSIDE RECORDS SUMMARY | 2025-02-14 04:39 | XMS_ITS | Clinical Summary ---
Author Organization [facility] Address [address] [place] [address] Care Team Providers Care Screen Tacker Name Role Phone Unavailable Primary Care Provider Unavailabl e Social History Tobacco Use Types Packs/Day Years Used Date Smoking Tobacco: Never Assessed [place] Safety & Environment Answer Date Rec orded Fear of Current or Ex-Partner Not on file Emotionally Abused Not on file 07/09/2023 Physically Abused Not on file 07/09/2023 Sexually Abused Not on file 07/09/2023 Physically or Sexually Abused Not on file Sex and Gender Information Value Date Recorded Sex Assigned at Not on file Legal Sex Male 9:48 PM EDT Gender Identity Not on file Sexual Orientation Not on file Plan of Treatment Health Maintenance Due Date Last Done Comments Medicare Annual Wellness (AWV) 1982 Depression Screening 1994 Varicella Vaccines (1 of 2 - 13+ 2-dose series) 10/03/1995 Hepatitis B Vaccines (1 of 3 - 19+ 3-dose series) 2001 Adult Tetanus 2004 Influenza Vaccine (#1) 2025 Zoster Vaccines (1 of 2) 2032 HIB Vaccines Aged Out No longer eligi ble based on patient's age to complete this topic HPV Vaccines Aged Out No longer eligi ble based on patient's age to complete this topic IPV Vaccines Aged Out No longer eligi ble based on patient's age to complete this topic Meningococcal B Vaccine Aged Out No l onger eligible based on patient's age to complete this topic Meningococcal Vaccine Aged Out No james wes eligible based on patient's age to complete this topic Pneumococcal Vaccine: Pediat rics (0 to 5 Years) and At-Risk Patients (6 to 64 Years) Aged Out No longer eligible b ased on patient's age to complete this topic Rotavirus Vaccines Aged Out No longer eligible based on patient's age to complete this topic Insurance MEDICARE Member Subscriber Plan / Payer (Ef fective 2006-Present) Name:Bishnu Coles Member ID:[id number] Relation to Subscriber:Self Name:Bishnu Coles Subscriber ID:[id number] Payer ID:[id number] Group ID:Not on file Type:Medicare Address: [facility] [place] [id number]
--- OUTSIDE RECORDS SUMMARY | 2025-02-14 04:39 | XMS_ITS | Clinical Summary ---
Author Organization [facility] Address [address] [facility] [place] [address] Care Team Providers Care Furnace Clerk Name Role Phone Unavailable Primary Care Provider Unavailabl e Source Comments The following information is NOT included in Care Everywhere downloads:Psychiatric notes, ECG results, Cardiac Rehab notes, Pulmonary Function notes, data from SmartForms (includes but not limited toPregnancy data,audiograms, eye exams, pre-surgical evaluation notes, well-child exam data).[facility] Allergies Active Allergy Reactions Criticality Noted Date Comments Levetiracetam 04/12/2014 Medications clindamycin (CLEOCIN) 150 MG capsule Take 1 Cap by mouth 3 times daily for 10 days. 30 Cap 0 04/12/2014 Active Social History Tobacco Use Types Packs/Day Years Used Date Smoking Tobacco: Never Assessed Sex and Gender Information Value Date Recorded Sex Assigned at Not on file Legal Sex Male 11:00 AM EST Gender Identity Not on file Sexual Orientation Not on file Plan of Treatment Health Maintenance Due Date Last Done Comments HIV Test 1997 Hepatitis C Antibody 2000 Tdap Booster 2000 Hepatitis A (HAV) Vaccine (optional start 19+ years) 2001 Hepatitis B (HBV) Vaccine (1 of 3 - 19+ 3-dose series) 2001 HPV Vaccine (optional start 27-45 years) 2009 Cholesterol 2017 COVID-19 Vaccine (2023-2 5 season) 2025 Influenza Vaccine (#1) 2025 Shingles (RZV) Vaccine (1 of 2) 2032 Pneumococcal Vaccine(s) Aged Out No l onger eligible based on patient's age to complete this topic Insurance MEDICARE MEDICAID
--- NOTE | 2025-02-14 04:52 | ED.GENADUL1 ---
HPI HPI - General Adult General Chief complaint: Headache Stated complaint: HEADACHE Time Seen by Provider: 02/14/25 04:39 Source: patient Mode of arrival: walk-in Limitations: no limitations History of Present Illness HPI narrative: This 42-year-old male with a history of migraine headaches and headache syndromes as well as seizure disorder who has a vagal nerve stimulator and is on multiple medications and sees a neurologist at [facility] presents for evaluation of a left-sided headache. He states the headache started around 5 PM. He initially drank Mountain Dew and use peppermint oil to try to get the headache to go away but it did not resolve. He then took his triptan medications without relief. He also took Phenergan. He states this is not a typical headache for him because it is only on the left side of his head, typically had headaches are on the left side of his head and go down the side of his neck. He does not have any nausea or vomiting or photophobia according to him. He does not have any focal neurologic symptoms. His VNS was changed in September at [facility]. He does not have any fever, chills, thunderclap presentation of the headache, weakness numbness or tingling. Related Data Home Medications ?Medication ?Instructions ?Recorded ?Confirmed Phenergan 25 mg PO TID PRN nausea and 12/04/22 09/25/24 vomiting clonazepam 2 mg tablet 2 mg PO TID 12/05/22 07/11/23 cyproheptadine 4 mg tablet 4 mg PO Q12H 12/05/22 07/11/23 lacosamide 100 mg tablet 100 mg PO Q12H 12/05/22 07/11/23 quetiapine 50 mg tablet 50 mg PO TID PRN anxiety 12/05/22 07/11/23 rizatriptan 10 mg disintegrating See Rx Instructions PO .COMPLEX 12/05/22 07/11/23 tablet (Maxalt-GUNNERY/ORDNANCE OFFICER) sertraline 100 mg tablet 200 mg PO Q24H 12/05/22 07/11/23 simvastatin 20 mg tablet 20 mg PO DAILY 12/05/22 07/11/23 albuterol sulfate 90 mcg/actuation 1 inh inhalation Q4H PRN shortness 01/19/23 09/25/24 aerosol inhaler of breath or wheezing fluticasone propionate 50 1 spray intranasal Q12H 01/19/23 09/25/24 mcg/actuation nasal spray,suspension diclofenac sodium 75 mg 75 mg PO Q12H PRN pain 03/29/23 07/11/23 tablet,delayed release erenumab-aooe 140 mg/mL 140 mg subcut .MONTHLY 03/29/23 09/25/24 subcutaneous auto-injector (Aimovig Autoinjector) quetiapine 300 mg tablet 300 mg PO .QHS 03/29/23 07/11/23 lurasidone 40 mg tablet 80 mg PO DAILY 05/22/23 07/11/23 Klonopin 2 mg PO TID 09/25/24 09/25/24 cetirizine 10 mg tablet (24Hour 10 mg PO DAILY PRN allergy symptoms 09/25/24 09/25/24 Allergy) clonidine HCl 0.1 mg tablet 0.1 mg PO DAILY 09/25/24 09/25/24 diclofenac sodium 75 mg 75 mg PO DAILY 09/25/24 09/25/24 tablet,delayed release erenumab-aooe 140 mg/mL 140 mg subcut .monthly 09/25/24 09/25/24 subcutaneous auto-injector (Aimovig Autoinjector) ibuprofen 800 mg tablet (IBU) 800 mg PO Q8H PRN fever or pain 09/25/24 09/25/24 lacosamide 100 mg tablet (Vimpat) 100 mg PO Q12H 09/25/24 09/25/24 lorazepam 1 mg tablet (Ativan) 1 mg PO DAILY PRN seizure 09/25/24 09/25/24 lurasidone 80 mg tablet (Latuda) 80 mg PO DAILY 09/25/24 09/25/24 quetiapine 200 mg tablet (Seroquel) 100 mg PO DAILY 09/25/24 09/25/24 quetiapine 50 mg tablet (Seroquel) 50 mg PO TID PRN anxiety 09/25/24 09/25/24 rizatriptan 10 mg tablet (Maxalt) See Rx Instructions PO .COMPLEX 09/25/24 09/25/24 sertraline 100 mg tablet (Zoloft) 300 mg PO DAILY 09/25/24 09/25/24 simvastatin 20 mg tablet (Zocor) 20 mg PO DAILY 09/25/24 09/25/24 Previous Rx's ?Medication ?Instructions ?Recorded acetaminophen 300 mg-codeine 30 mg 1 tab PO Q6H PRN pain 3 days #14 05/22/23 tablet tabs Allergies Allergy/AdvReac Type Severity Reaction Status Date / Time desvenlafaxine (From Pristiq) Allergy Unknown SEIZURE Verified 02/14/25 04:48 keppra Allergy Unknown Unknown Uncoded 02/14/25 04:48 Opioid HPI Opioid Management Most Recent Opioid Data: Last Pain Scale 7 Today, 05:02 Ur Phencyclidine Scrn, (NEGATIVE) Negative 03/29/23, 11:15 Review of Systems ROS Status of ROS 10 or more systems reviewed and unremarkable except as noted in history and below [facility] Medical History (Updated 02/14/25 @ 05:51 by Amber Mercedes MD) PTSD (post-traumatic stress disorder) ?F43.10 - Post-traumatic stress disorder, unspecified (ICD-10) Migraine ?G43.909 - Migraine, unspecified, not intractable, without status migrainosus (ICD-10) HIMA (obstructive sleep apnea) ?G47.33 - Obstructive sleep apnea (adult) (pediatric) (ICD-10) Insomnia ?G47.00 - Insomnia, unspecified (ICD-10) GERD (gastroesophageal reflux disease) ?K21.9 - Gastro-esophageal reflux disease without esophagitis (ICD-10) Suicidal ideation ?R45.851 - Suicidal ideations (ICD-10) Bipolar 1 disorder ?F31.9 - Bipolar disorder, unspecified (ICD-10) Anxiety ?F41.9 - Anxiety disorder, unspecified (ICD-10) Respiratory failure requiring intubation ?J96.90 - Respiratory failure, unspecified, unspecified whether with hypoxia or hypercapnia (ICD-10) Depression ?F32.A - Depression, unspecified (ICD-10) Epilepsy ?G40.909 - Epilepsy, unspecified, not intractable, without status epilepticus (ICD-10) Surgical History 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 ?Z96.89 - Presence of other specified functional implants (ICD-10) Social History Smoking status: Never smoker Little interest or pleasure in doing things: not at all Feeling down, depressed, or hopeless: not at all Exam Narrative Exam Narrative: Vital signs and Nursing Notes reviewed: Patient is afebrile with normal pulse, blood pressure is elevated 150/100, he is not hypoxic with pulse ox of 97% on room air General: Awake, alert, oriented, no acute distress, sitting [place] style on the bed HEENT: Normocephalic atraumatic, mucous membranes are moist and pink, eyes are clear, normal conjunctiva, pupils are equal reactive, no photophobia appreciated vision is grossly intact, posterior pharynx is normal in appearance. Neck: Supple, healed incision on left side of neck no meningeal signs Chest: Lungs are clear to auscultation with good air entry, there is no wheezing rhonchi or rales appreciated no accessory muscle use, patient is speaking in complete sentences-no chest wall tenderness to palpation CVS: Regular rate and rhythm S1-S2, no murmurs rubs or gallops, pulses are brisk and equal bilaterally ABD: Soft, nondistended, nontender, no rebound guarding or rigidity, bowel sounds are normal, no pulsatile masses appreciated Extremities: Moving all extremities, no lower extremity tenderness or swelling noted Skin: Normal in appearance without rash,pallor, petechiae or purpura Neuro: No focal deficits, speech is clear, patient is ambulatory with a steady gait, assembler adjuster strength is intact, no facial droop Constitutional Vital Signs, click to edit/add: Last Vital Signs Temp 98.2 F 02/14/25 04:35 Pulse 79 02/14/25 04:35 Resp 18 02/14/25 04:35 BP 150/100 H 02/14/25 04:35 Pulse Ox 97 02/14/25 04:35 O2 Del Method Room Air 02/14/25 04:35 Course Vital Signs Vital signs: Vital Signs Temperature 98.2 F 02/14/25 04:35 Pulse Rate 79 02/14/25 04:35 Respiratory Rate 18 02/14/25 04:35 Blood Pressure 150/100 H 02/14/25 04:35 Pulse Oximetry 97 02/14/25 04:35 Oxygen Delivery Method Room Air 02/14/25 04:35 Temperature 98.2 F 02/14/25 04:35 Pulse Rate 79 02/14/25 04:35 Respiratory Rate 18 02/14/25 04:35 Blood Pressure 150/100 H 02/14/25 04:35 Pulse Oximetry 97 02/14/25 04:35 Oxygen Delivery Method Room Air 02/14/25 04:35 Medical Decision Making MDM Narrative Medical decision making narrative: Patient is feeling better after IV fluids, Toradol, Solu-Medrol Decadron and Reglan. His labs were normal. He will be discharged home after his fluids finished. Lab Data Lab results reviewed: Yes I reviewed the patient's lab results Labs: Lab Results 02/14/25 Range/Units 05:12 WBC 9.2 (4.0-11.0) 10^3/uL RBC 5.09 (4.70-6.10) 10^6/uL Hgb 14.9 (14.0-18.0) g/dL Hct 43.4 (42.0-54.0) % MCV 85.3 (80.0-94.0) fL MCH 29.3 (25.9-34.0) pg MCHC 34.3 (29.9-35.2) g/dL RDW 12.0 (11.0-15.0) % Plt Count 332 (150-450) 10^3/uL MPV 8.9 L (9.5-13.5) fL Neut % (Auto) 58.6 (43.0-75.0) % Lymph % (Auto) 31.5 (20.5-60.0) % Kerr % (Auto) 6.6 (1.7-12.0) % Eos % (Auto) 2.2 (0.9-7.0) % Baso % (Auto) 0.8 (0.2-2.0) % Neut # (Auto) 5.4 (1.4-6.5) 10^3/uL Lymph # (Auto) 2.9 (1.2-3.8) 10^3/uL Kerr # (Auto) 0.6 (0.3-0.8) 10^3/uL Eos # (Auto) 0.2 (0.0-0.7) 10^3/uL Baso # (Auto) 0.1 (0.0-0.1) 10^3/uL Abs Immat Gran (auto) 0.03 (0.00-0.03) 10^3/uL Imm/Tot Granulo (auto) 0.3 (0.0-0.5) % Sodium 137 (136-145) mmol/L Potassium 3.4 L (3.5-5.1) mmol/L Chloride 102 (98-107) mmol/L Carbon Dioxide 23.8 (21.0-32.0) mmol/L Anion Gap 14.6 BUN 11.0 (7.0-18.0) mg/dL Creatinine 0.79 (0.70-1.30) mg/dL Est GFR ( Amer) >60 (>=60 mL/min/1.73m^2) Est GFR (Non-Af Amer) >60 (>=60 mL/min/1.73m^2) BUN/Creatinine Ratio 13.9 Glucose 118 H (74-106) mg/dL Calcium 8.4 L (8.5-10.1) mg/dL Total Bilirubin 0.5 (0.2-1.0) mg/dL AST 17 (15-37) U/L ALT 39 (16-63) U/L Alkaline Phosphatase 66 (46-116) U/L Total Protein 7.0 (6.4-8.2) g/dL Albumin 3.7 (3.4-5.0) g/dL Globulin 3.3 g/dL Albumin/Globulin Ratio 1.1 Discharge Plan Discharge Chief Complaint: Headache Clinical Impression: Headache Prescriptions / Home Meds: No Action Phenergan 25 mg tablet 25 mg PO TID PRN (Reason: nausea and vomiting) Rx Instructions: TID for nausea rizatriptan [Maxalt-GUNNERY/ORDNANCE OFFICER] 10 mg tablet,disintegrating See Rx Instructions .ROUTE .COMPLEX Rx Instructions: take 1 tab at onset of headache; if no relief may repeat 1 tab after at least 2 hrs; max = 3 tabs/24 hr quetiapine 50 mg tablet 50 mg PO TID PRN (Reason: anxiety) lacosamide 100 mg tablet 100 mg PO Q12H clonazepam 2 mg tablet 2 mg PO TID cyproheptadine 4 mg tablet 4 mg PO Q12H sertraline 100 mg tablet 200 mg PO Q24H simvastatin 20 mg tablet 20 mg PO DAILY Rx Instructions: HS lurasidone 40 mg tablet 80 mg PO DAILY acetaminophen-codeine 300-30 mg tablet 1 tab PO Q6H PRN (Reason: pain) 3 Days Qty: 14 0RF albuterol sulfate 90 mcg/actuation HFA aerosol inhaler 1 inh INHALATION Q4H PRN (Reason: shortness of breath or wheezing) fluticasone propionate 50 mcg/actuation spray,suspension 1 spray INTRANASAL Q12H quetiapine 300 mg tablet 300 mg PO .QHS diclofenac sodium 75 mg tablet,delayed release (DR/EC) 75 mg PO Q12H PRN (Reason: pain) Rx Instructions: 03/09/23 FOR 30 DAYS Aimovig Autoinjector 140 mg/mL auto-injector 140 mg SUBCUT .MONTHLY Rx Instructions: 140 MG ONCE A MONTH 03/05/23 cetirizine [24Hour Allergy] 10 mg tablet 10 mg PO DAILY PRN (Reason: allergy symptoms) Rx Instructions: 1-2 as needed lorazepam [Ativan] 1 mg tablet 1 mg PO DAILY PRN (Reason: seizure) Rx Instructions: for seizure lasting > 3 min. Can have up to 2 in 24 hours quetiapine [Seroquel] 50 mg tablet 50 mg PO TID PRN (Reason: anxiety) Klonopin 2 mg PO TID lacosamide [Vimpat] 100 mg tablet 100 mg PO Q12H rizatriptan [Maxalt] 10 mg tablet See Rx Instructions .ROUTE .COMPLEX Rx Instructions: take 1 tab at onset of headache; if no relief may repeat 1 tab after at least 2 hrs; max = 3 tabs/24 hr sertraline [Zoloft] 100 mg tablet 300 mg PO DAILY quetiapine [Seroquel] 200 mg tablet 100 mg PO DAILY Rx Instructions: at hs lurasidone [Latuda] 80 mg tablet 80 mg PO DAILY Rx Instructions: with dinner and 20 mg in AM Aimovig Autoinjector 140 mg/mL auto-injector 140 mg subcut .monthly simvastatin [Zocor] 20 mg tablet 20 mg PO DAILY ibuprofen [IBU] 800 mg tablet 800 mg PO Q8H PRN (Reason: fever or pain) diclofenac sodium 75 mg tablet,delayed release (DR/EC) 75 mg PO DAILY clonidine HCl 0.1 mg tablet 0.1 mg PO DAILY Rx Instructions: 0.1 in am and 0.2 pm Print Language: Kittitian Referrals: Uriel Clements MD [Primary Care Provider, Family Practice] - 1 week
[2025-02-14 05:17] LABS: Hematocrit 43.4 % (42.0-54.0); Hemoglobin 14.9 g/dL (14.0-18.0); Immature Granulocytes Abs Auto 0.03 10^3/uL (0.00-0.03); Immature Granulocytes Pct Auto 0.3 % (0.0-0.5); Lymphocytes Absolute Auto 2.9 10^3/uL (1.2-3.8); Mean Corpuscular HGB Conc 34.3 g/dL (29.9-35.2); Mean Corpuscular Hemoglobin 29.3 pg (25.9-34.0); Mean Corpuscular Volume 85.3 fL (80.0-94.0); Platelet Count 332 10^3/uL (150-450); Red Blood Count 5.09 10^6/uL (4.70-6.10); White Blood Count 9.2 10^3/uL (4.0-11.0)
[2025-02-14] MEDS: 0.9 % SODIUM CHLORIDE 1,000 ML 1000 ML IV (05:22)
[2025-02-14] MEDS: DIPHENHYDRAMINE HCL 50 MG/ML VIAL 12.5 MG IVP (05:23)
[2025-02-14] MEDS: KETOROLAC TROMETHAMINE 30 MG/ML VIAL IVP (05:23)
[2025-02-14] MEDS: METHYLPREDNISOLONE SOD SUCC PF 125 MG/2 ML VIAL IVP (05:23)
[2025-02-14] MEDS: METOCLOPRAMIDE HCL 10 MG/2 ML VIAL IVP (05:23)
[2025-02-14 05:32] LABS: Alanine Aminotransferase 39 U/L (16-63); Albumin Globulin Ratio 1.1; Albumin Level 3.7 g/dL (3.4-5.0); Alkaline Phosphatase 66 U/L (46-116); Anion Gap 14.6; Aspartate Amino Transferase 17 U/L (15-37); Blood Urea Nitrogen 11.0 mg/dL (7.0-18.0); Calcium 8.4 mg/dL (8.5-10.1); Carbon Dioxide 23.8 mmol/L (21.0-32.0); Chloride 102 mmol/L (98-107); Estimated GFR (African America >60 (>=60 mL/min/1.73m^2); Estimated GFR (Non-African Ame >60 (>=60 mL/min/1.73m^2); Globulin 3.3 g/dL; Glucose 118 mg/dL (74-106); Potassium 3.4 mmol/L (3.5-5.1); Sodium 137 mmol/L (136-145); Total Protein 7.0 g/dL (6.4-8.2)
[2025-02-14 06:25] VITALS: BP 134/89; PULSE 80; O2SAT 99
== END 2025-02-14 06:25 | disposition home or self-care (01) ==
PROVIDERS: Emergency Provider Emergency Medicine; PCP Family Medicine
DX: R51.9 Headache, unspecified (principal); G40.909 Epilepsy, unspecified, not intractable, without status epilepticus
CPT/HCPCS: 36415; 80053; 85025; 96374; 96375; 99284; J1200; J1885; J2765; J2919

== ENCOUNTER 2025-03-04 00:56 | Observation (INO) | payer MEDICARE, MEDICAID, SELFPAY ==
--- OUTSIDE RECORDS SUMMARY | 2023-10-16 06:00 | XMS_ITS ---
Author Organization [facility] Address [address] [facility] [place] [address] Care Team Providers Care Configuration Manager Name Role Phone Leatha Weiner Primary Care Provider Josh Allen Unavailable REASON FOR VISIT BH F/U Encounters Encounter Location Date Provider Diagnosis [facility] [address] [place] [address] 10/16/2023 Josh Allen Plan Of Treatment Next Appt Details Provider Name:Jessicamakeda Morales, 06/27/2025 02:00:00 PM, [address], [place], [address], Provider Name:Jessicamakeda Morales, 07/04/2025 02:00:00 PM, [address], [place], [address], Progress Notes * AMEYA MEZA WDOB:1980 (44 yo M)Acc No.[id number]:10/16/2023 F/U - Patient Patient: Sonja CHAWLA AMEYA Morales Provider: ALVIN Staley :1980 A ge:43 Y S ex:Male Date:10/16/2023 Address:[address] [place], [place] [id number] Pcp:Leatha Weiner Subjective: * Chief Complaints: * B H F/U Billing Information: * Procedure Codes: Care Plan Details* * Electronic signature of MING Temple on 03/04/2025 at 01:05 AM EDT Sign off status: Pending * Provider: ALVIN Staley Date: 0 10/16/2023 Generated for Ricardo khan/Dony/Petra on: 1 01:05 AM EDT
--- OUTSIDE RECORDS SUMMARY | 2023-12-01 10:30 | XMS_ITS ---
[facility] Address [address] [facility] [place] [place] [address] Care Team Providers Care Forestry Technical Officer Name Role Phone Leatha Weiner Primary Care Provider Isamar Sandhu [phone] REASON FOR VISIT PERIO EVAL SRP PREAUTH XRAYS Encounters Encounter Location Date Provider Diagnosis [facility] [address] [place] [address] 12/01/2023 Isamar Sandhu Plan Of Treatment Next Appt Details Provider Name:Jessica Morales, 06/27/2025 02:00:00 PM, [address], [place], [address], Provider Name:Jessica Morales, 07/04/2025 02:00:00 PM, [address], [place], [address], Progress Notes * AMEYA MEZA WDOB:1980 (44 yo M)Acc No.[id number]:12/01/2023 Patient: Sonja AMEYA CHAWLA Provider: Britt Sandhu :1980 A ge:43 Y S ex:Male Date:12/01/2023 Address:[address] [place], [place] [phone] Pcp:Leatha Weiner Subjective: * Chief Complaints: * P ERIO EVAL SRP PREAUTH XRAYS Billing Information: * Procedure Codes: * Electronic signature of Brandy Sandhu on 03/04/2025 at 01:06 AM EDT Sign off status: Pending * Provider: Britt Sandhu Date: 0 12/01/2023 Generated for Ricardo khan/Dony/Petra on: 1 01:06 AM EDT
--- OUTSIDE RECORDS SUMMARY | 2023-12-02 06:15 | XMS_ITS ---
Author Organization [facility] Address [address] [facility] [address] Care Team Providers Care Squeegee Finisher Name Role Phone Leatha Weiner Primary Care Provider Angelica Tai [phone] REASON FOR VISIT 2 month f/u Encounters Encounter Location Date Provider Diagnosis [facility] [address] [place] [address] 12/02/2023 Angelica Tai Plan Of Treatment Next Appt Details Provider Name:Jessica Morales, 06/27/2025 02:00:00 PM, [address], [place], [address], Provider Name:Jessica Morales, 07/04/2025 02:00:00 PM, [address], [place], [address], Progress Notes * AMEYA MEZA WDOB:1980 (44 yo M)Acc No.[id number]:12/02/2023 Behavioral Health Patient: Sonja AMEYA CHAWLA Provider: Michael Lawrence :1980 A ge:43 Y S ex:Male Date:12/02/2023 Address:[address] [place], [place] [id number] Pcp:Leatha Weiner Subjective: * Chief Complaints: * 2 month f/u Care Plan Details* * Electronic signature of Giuliano Tai on 03/04/2025 at 01:07 AM EDT Sign off status: Pending * Provider: Michael Lawrence Date: 0 12/02/2023 Generated for Ricardo khan/Dony/Petra on: 1 01:07 AM JAIMET
--- OUTSIDE RECORDS SUMMARY | 2024-04-05 05:15 | XMS_ITS ---
Author Organization [facility] Address [address] [place] [address] Care Team Providers Care Event Attendant Name Role Phone Leatha Weiner Primary Care Provider [phone] Dr. Samir Roland Unavailable [phone] REASON FOR VISIT FILLING Encounters Encounter Location Date Provider Diagnosis [facility] [address] [place] [address] 04/05/2024 Samir Arambula Plan Of Treatment Next Appt Details Provider Name:Jessica Morales, 06/27/2025 02:00:00 PM, [address], [place], [address], Provider Name:Jessica Morales, 07/04/2025 02:00:00 PM, [address], [place], [address], Progress Notes * AMEYA MEZA WDOB:1980 (44 yo M)Acc No.[id number]:04/05/2024 Patient: Sonja CHAWLAAMEYA Provider: Kris Arambula DDS :1980 A ge:43 Y S ex:Male Date:04/05/2024 Address:[address] [place], [place] [id number] Pcp:Leatha Weiner Subjective: * Chief Complaints: * F ILLING Billing Information: * Procedure Codes: * Electronic signature of Dr. Samir Arambula , [facility], [id number] on 03/04/2025 at 01:07 AM EDT Sign off status: Pending * Provider: Kris Arambula DDS Date: 06/05/2023 Generated for Ricardo khan/Dony/Petra on: 01:07 AM EDT
--- OUTSIDE RECORDS SUMMARY | 2025-01-25 05:00 | XMS_ITS ---
Author Organization [facility] in [place] Address [address] [place] [address] Care Team Providers Care Construction Crew Member Name Role Phone Jovan Clements Primary Care Provider [phone] REASON FOR VISIT SICK Encounters Encounter Location Date Provider Diagnosis [facility] [address] [place] [address] 01/25/2025 Jovan Clements Plan Of Treatment No Information Progress Notes * Lita COLESOB:1980 ( 44 yo M)Acc No.[id number]:01/25/2025 UNLOCKED PROGRESS NOTE Progress Note Patient: Bishnu MURRAY Provider: Bre Clements MD (TTC) :1980 A ge:44 Y S ex:Male Date:01/25/2025 Address:[address] [place], [place] [address] Subjective: * Chief Complaints: * 1 . SICK. * Medical History: Objective: * Vitals: Assessment: Plan: * Treatment: * * Electronic signature of Jovan Clements MD, [id number] on 03/04/2025 at 01:06 AM EDT Sign off status: Pending Visit Status: N /S N/C (No Show/No Charge) * Provider: Bre Clements MD (TTC) Date: 0 01/25/2025 Generated for Printi ng/Faxing/eTransmitting on: 1 01:06 AM EDT
--- OUTSIDE RECORDS SUMMARY | 2025-02-06 11:00 | XMS_ITS ---
Author Organization [facility] es Address [address] [place] [address] Care Team Providers Care Technical Staff Assistant Name Role Phone Leatha Weiner Primary Care Provider [phone] Dr. Samir Roland Unavailable [phone] REASON FOR VISIT EXT Encounters Encounter Location Date Provider Diagnosis [facility] [address] [place] [address] 2024 Samir Arambula Plan Of Treatment Next Appt Details Provider Name:Jessica Morales, 06/27/2025 02:00:00 PM, [address], [place], [address], Provider Name:Jessica Morales, 07/04/2025 02:00:00 PM, [address] [place], [address], Progress Notes * AMEYA MEZA WDOB:1980 (44 yo M)Acc No.[id number]:02/06/2025 Patient: Sonja CHAWLAAMEYA Provider: Kris Arambula DDS :1980 A ge:44 Y S ex:Male Date:02/06/2025 Address:[address] [place], [place] [address] Pcp:Leatha Weiner Subjective: * Chief Complaints: * E XT * Electronic signature of Dr. Samir Arambula , [facility], [id number] on 03/04/2025 at 01:05 AM EDT Sign off status: Pending * Provider: Kris Arambula DDS Date: 0 02/06/2025 Generated for Ricardo khan/Dony/Petra on: 1 01:05 AM EDT
--- OUTSIDE RECORDS SUMMARY | 2025-02-16 06:30 | XMS_ITS ---
Author Organization [facility] in [place] Address [address] [place] [address] Care Team Providers Care Stone Dresser Name Role Phone Jovan Clements Primary Care Provider REASON FOR VISIT yearly referral ent Encounters Encounter Location Date Provider Diagnosis [facility] [address] [place] [address] 02/16/2025 Jovan Clements Plan Of Treatment No Information Progress Notes * Lita COLESOB:1980 ( 44 yo M)Acc No.[id number]:02/16/2025 UNLOCKED PROGRESS NOTE Progress Note Patient: Bishnu MURRAY Provider: Bre Clements MD (TTC) :1980 A ge:44 Y S ex:Male Date:02/16/2025 Address:[address] [place], [place] [id number] Subjective: * Chief Complaints: * 1 . Yearly referral ent. * Medical History: Objective: * Vitals: Assessment: Plan: * Treatment: * * Electronic signature of Jovan Clements MD, [id number] on 03/04/2025 at 01:06 AM EDT Sign off status: Pending Visit Status: N /S N/C (No Show/No Charge) * Provider: Bre Clements MD (TTC) Date: Generated for Printi ng/Faxing/eTransmitting on: 01:06 AM EDT
[2025-03-04] VITALS (11 sets, daily range): BP systolic 141–150; BP diastolic 84–101; PULSE 78–105; TEMP 36.5–37.4; O2SAT 93–99; BMI 29.3
--- NOTE | 2025-03-04 01:00 | ECG_ITS ---
[facility] Test Date: 2025-03-04 Pat Name: AMEYA MEZA Department: Room: 2291 Gender: Male Pictures Editor: : 1980 Requested By: ERLINDA NUNEZ Order Number: [id number] Linus MD: ASHLEY KENNEDY M.D. Measurements Intervals [place] Rate: 85 P: 31 MI: 184 QRS: 28 QRSD: 109 T: 50 QT: 352 QTc: 420 Interpretive Statements SINUS RHYTHM Normal ECG Compared to ECG 03/04/2025 01:03:17 Sinus tachycardia no longer present Electronically Signed On 03-05-2025 10:48:15 EDT by ASHLEY KENNEDY M.D.
--- OUTSIDE RECORDS SUMMARY | 2025-03-04 01:05 | XMS_ITS | Clinical Summary ---
Author Organization [facility] Address [address] [place] [address] Care Team Providers Care Sales And Management Trainee Name Role Phone Uriel Clements MD Primary [...] LIPID SCREENING 2022 COVID-19 VACCINE ( - 2024-2 6 season) 2025 INFLUENZA VACCINE (#1) 2025 PNEUMOCOCCAL VACCINE SERIES Aged Out No longer eligible based on patient's age to complete this topic Insurance Medicare A and B Care Teams Sales And Management Trainee Relationship Specialty Start Date End Date Uriel Clements MD PCP - General Family Medicine 11/27/11
--- OUTSIDE RECORDS SUMMARY | 2025-03-04 01:06 | XMS_ITS | Encounter Summary ---
Author Organization [facility] Address [address] [place] [address] Care Team Providers Care Management Information Systems Director Name Role Phone Uriel Clements MD Primary Care Provider [phone] Source Comments In the event this information is protected by the Federal Confidentiality of Alcohol and Drug AbusePatient Records regulations: The Federal rules restrict any use of the information to criminally investigate or prosecute any alcohol or drug abuse patient.[facility] Encounter Details Date Type Department Care Team (Late st Contact Info) Description 12/12/2014 Patient Msg Medical Records [address] [place], [place] [id number] Provider, [facility] Topamax wean Social History Tobacco Use Types Packs/Day Years Used Date Smoking Tobacco: Never Smokeless Tobacco: Never Alcohol Use Standard Drinks/Week Comments No 0 (1 standard drink = 0.6 oz pur e alcohol) Sex and Gender Information Value Date Recorded Sex Assigned at Not on file Legal Sex Male 10:06 AM EST Gender Identity Not on file Sexual Orientation Not on file documented as of this encounter Functional Status * Are you deaf or do you have serious difficulty hearing? Answer Date of Assessment Author No 10/30/2014 10:15 AM Caroline Roman MA * Are you blind or do you have serious difficulty seeing, even when wearing glasses? Answer Date of Assessment Author No 10/30/2014 10:15 AM Caroline Roman MA * Do you have serious difficulty walking or climbing stairs? Answer Date of Assessment Author No 10/30/2014 10:15 AM Caroline Roman MA * Do you have difficulty dressing or bathing? Answer Date of Assessment Author No 10/30/2014 10:15 AM Caroline Roman MA * Because of a physical, mental, or emotional condition, do you have difficulty doing errands alone such as visiting a doctor's office or shopping? Answer Date of Assessment Author No 10/30/2014 10:15 AM Caroline Roman MA documented as of this encounter Mental Status * Because of a physical, mental, or emotional condition, do you have serious difficulty concentrating, remembering, or making decisions? Answer Entry Date Author Yes 10/30/2014 10:15 AM Caroline Roman MA documented in this encounter Plan of Treatment Not on file documented as of this encounter Visit Diagnoses Not on filedocumented in this encounter Additional Health Concerns Infection Onset Date Last Indicated Resolved Time COVID-19 Rule-Out 09/20/2020 09/20/2020 09/20/2020 5:19 PM EDT COVID-19 Rule-Out 09/25/2024 09/25/2024 09/25/2024 1:15 PM EDT documented as of this encounter Care Teams Management Information Systems Director Relationship Specialty Start Date End Date Uriel Clements MD PCP - General Family Medicine 01/02/11 documented as of this encounter
--- OUTSIDE RECORDS SUMMARY | 2025-03-04 01:06 | XMS_ITS | Encounter Summary ---
Author Organization [facility] Address [address] [place] [address] Care Team Providers Care Ux Lead Name Role Phone Uriel Clements MD Primary Care Provider [phone] Source Comments In the event this information is protected by the Federal Confidentiality of Alcohol and Drug AbusePatient Records regulations: The Federal rules restrict any use of the information to criminally investigate or prosecute any alcohol or drug abuse patient.[facility] Encounter Details Date Type Department Care Team (Late st Contact Info) Description 05/05/2023 Patient Msg [facility] [place] [address] [place] [address] Edenilson Tena, INTEL RECRUITER.EXPERIMENTAL MECHANIC [address] [facility] [place] [place] [phone] Missed Appointment Social History Tobacco Use Types Packs/Day Years Used Date Smoking Tobacco: Never Smokeless Tobacco: Never Alcohol Use Standard Drinks/Week Comments No 0 (1 standard drink = 0.6 oz pur e alcohol) PHQ-2 Answer Date Recorded PHQ-2 score 2 05/08/2023 Area Deprivation Index Answer Date Shivam rded National Score (1-100), lower number is lower ri sk 78 10/27/2022 State Score (1-10), lower number is lower risk 6 10/27/2022 Data from: https://www.neighborhoodatlas.medicine.[facility]/. Last address used for calculation [address] 10/27/2022 Sex and Gender Information Value Date Recorded Sex Assigned at Not on file Legal Sex Male 10:06 AM EST Gender Identity Not on file Sexual Orientation Not on file documented as of this encounter Functional Status * Are you deaf or do you have serious difficulty hearing? Answer Date of Assessment Author No 09/21/2020 11:16 AM Gris Dunne RN * Are you blind or do you have serious difficulty seeing, even when wearing glasses? Answer Date of Assessment Author No 09/21/2020 11:16 AM Gris Dunne RN * Do you have serious difficulty walking or climbing stairs? Answer Date of Assessment Author No 09/21/2020 11:16 AM Gris Dunne RN * Do you have difficulty dressing or bathing? Answer Date of Assessment Author No 09/21/2020 11:16 AM Gris Dunne RN * Because of a physical, mental, or emotional condition, do you have difficulty doing errands alone such as visiting a doctor's office or shopping? Answer Date of Assessment Author No 09/21/2020 11:16 AM Gris Dunne RN documented as of this encounter Mental Status * Because of a physical, mental, or emotional condition, do you have serious difficulty concentrating, remembering, or making decisions? Answer Entry Date Author No 09/21/2020 11:16 AM Gris Dunne RN documented in this encounter Plan of Treatment Not on file documented as of this encounter Visit Diagnoses Not on filedocumented in this encounter Additional Health Concerns Infection Onset Date Last Indicated Resolved Time COVID-19 Rule-Out 09/25/2024 09/25/2024 09/25/2024 1:15 PM EDT documented as of this encounter Care Teams Ux Lead Relationship Specialty Start Date End Date Uriel Clements MD PCP - General Family Medicine 01/02/11 documented as of this encounter
--- OUTSIDE RECORDS SUMMARY | 2025-03-04 01:06 | XMS_ITS | Encounter Summary ---
Author Organization [facility] Address [address] [place] [address] Care Team Providers Care Engraver Block Name Role Phone Uriel Clements MD Primary Care Provider [phone] Source Comments In the event this information is protected by the Federal Confidentiality of Alcohol and Drug AbusePatient Records regulations: The Federal rules restrict any use of the information to criminally investigate or prosecute any alcohol or drug abuse patient.[facility] Encounter Details Date Type Department Care Team (Late st Contact Info) Description 11/02/2019 Patient Msg Neurosurgery [address] [place], [place] [phone] Jemima Purdy, AMEENA.LOADER ENGINEER [address] [place] [address] Speaking with another patient about VNS therapy Social History Tobacco Use Types Packs/Day Years Used Date Smoking Tobacco: Never Smokeless Tobacco: Never Alcohol Use Standard Drinks/Week Comments No 0 (1 standard drink = 0.6 oz pur e alcohol) PHQ-2 Answer Date Recorded PHQ-2 Score 2 05/04/2019 Sex and Gender Information Value Date Recorded Sex Assigned at Not on file Legal Sex Male 10:06 AM EST Gender Identity Not on file Sexual Orientation Not on file COVID-19 Exposure Response Date Recorded In the last month, have you been in contact with someone who was confirmed or suspected to have Coronavirus / COVID-19? No / Unsure 10/28/2019 3:04 AM EDT documented as of this encounter Functional Status * Are you deaf or do you have serious difficulty hearing? Answer Date of Assessment Author No 02/05/2018 12:17 PM EDT Arleth Weber (Rn) (Hist), RN * Are you blind or do you have serious difficulty seeing, even when wearing glasses? Answer Date of Assessment Author No 02/05/2018 12:17 PM EDT Arleth Weber (Rn) (Hist), RN * Do you have serious difficulty walking or climbing stairs? Answer Date of Assessment Author No 02/05/2018 12:17 PM EDT Arleth Weber (Rn) (Hist), RN * Do you have difficulty dressing or bathing? Answer Date of Assessment Author No 02/05/2018 12:17 PM EDT Arleth Weber (Rn) (Hist), RN * Because of a physical, mental, or emotional condition, do you have difficulty doing errands alone such as visiting a doctor's office or shopping? Answer Date of Assessment Author No 02/05/2018 12:17 PM EDT Arleth Weber (Rn) (Hist), RN documented as of this encounter Mental Status * Because of a physical, mental, or emotional condition, do you have serious difficulty concentrating, remembering, or making decisions? Answer Entry Date Author No 02/05/2018 12:17 PM EDT Arleth Weber (Rn) (Hist), RN documented in this encounter Plan of Treatment Not on file documented as of this encounter Visit Diagnoses Not on filedocumented in this encounter Additional Health Concerns Infection Onset Date Last Indicated Resolved Time COVID-19 Rule-Out 09/20/2020 09/20/2020 09/20/2020 5:19 PM EDT COVID-19 Rule-Out 09/25/2024 09/25/2024 09/25/2024 1:15 PM EDT documented as of this encounter Care Teams Engraver Block Relationship Specialty Start Date End Date Uriel Clements MD PCP - General Family Medicine 01/02/11 documented as of this encounter
--- OUTSIDE RECORDS SUMMARY | 2025-03-04 01:06 | XMS_ITS | Encounter Summary ---
Author Organization [facility] Address [address] [place] [address] Care Team Providers Care Tab Machine Operator Name Role Phone Uriel Clements MD Primary Care Provider [phone] Source Comments In the event this information is protected by the Federal Confidentiality of Alcohol and Drug AbusePatient Records regulations: The Federal rules restrict any use of the information to criminally investigate or prosecute any alcohol or drug abuse patient.[facility] Encounter Details Date Type Department Care Team (Late st Contact Info) Description 04/13/2019 Get Medical Advice Neurology [address] [place] [address] Mariposa Rubin, SQL SSRS DEVELOPER.MANAGER LSW [address] [place] [address] RE: Test Result Question Social History Tobacco Use Types Packs/Day Years Used Date Smoking Tobacco: Never Smokeless Tobacco: Never Alcohol Use Standard Drinks/Week Comments No 0 (1 standard drink = 0.6 oz pur e alcohol) PHQ-2 Answer Date Recorded PHQ-2 Score 1 03/26/2019 Sex and Gender Information Value Date Recorded [...] documented as of this encounter Care Teams Tab Machine Operator Relationship Specialty Start Date End Date Uriel Clements MD PCP - General Family Medicine 01/02/11 documented as of this encounter
--- OUTSIDE RECORDS SUMMARY | 2025-03-04 01:06 | XMS_ITS | Encounter Summary ---
Author Organization [facility] Address [address] [place] [address] Care Team Providers Care Quality Improvement Coordinator (Rn) Name Role Phone Uriel Clements MD Primary Care Provider [phone] Source Comments In the event this information is protected by the Federal Confidentiality of Alcohol and Drug AbusePatient Records regulations: The Federal rules restrict any use of the information to criminally investigate or prosecute any alcohol or drug abuse patient.[facility] Encounter Details Date Type Department Care Team (Late st Contact Info) Description 08/29/2022 Patient Msg Neurology [address] [place] [id number] Provider, [facility]cf VNS Turn Off/On Social History Tobacco Use Types Packs/Day Years Used Date Smoking Tobacco: Never Smokeless Tobacco: Never Alcohol Use Standard Drinks/Week Comments No 0 (1 standard drink = 0.6 oz pur e alcohol) PHQ-2 Answer Date Recorded PHQ-2 score 3 12/17/2021 Area Deprivation Index Answer Date Shivam rded National Score (1-100), lower number is lower ri sk 73 06/13/2022 State Score (1-10), lower number is lower risk N ot on file 06/13/2022 Data from: https://www.neighborhoodatlas.[facility]/. Last address used for calculation [address] 06/13/2022 Sex and Gender Information Value Date Recorded [...] documented as of this encounter Care Teams Quality Improvement Coordinator (Rn) Relationship Specialty Start Date End Date Uriel Clements MD PCP - General Family Medicine 01/02/11 documented as of this encounter
--- OUTSIDE RECORDS SUMMARY | 2025-03-04 01:06 | XMS_ITS | Clinical Summary ---
Author Organization [facility] Address [address] [facility] [place] [address] Care Team Providers Care Retail Associate Name Role Phone Unavailable Primary Care Provider Unavailabl e Source Comments The following information is NOT included in Care Everywhere downloads:Psychiatric notes, ECG results, Cardiac Rehab notes, Pulmonary Function notes, data from SmartForms (includes but not limited toPregnancy data,audiograms, eye exams, pre-surgical evaluation notes, well-child exam data).[facility] Allergies Active Allergy Reactions Criticality Noted Date [...]
--- OUTSIDE RECORDS SUMMARY | 2025-03-04 01:06 | XMS_ITS | Encounter Summary ---
Author Organization [facility] Address [address] [place] [address] Care Team Providers Care Deckhand Oyster Dredge Name Role Phone Uriel Clements MD Primary Care Provider [phone] Source Comments In the event this information is protected by the Federal Confidentiality of Alcohol and Drug AbusePatient Records regulations: The Federal rules restrict any use of the information to criminally investigate or prosecute any alcohol or drug abuse patient.[facility] Reason for Visit * Reason Comments Seizures Encounter Details Date Type Department Care Team ([facility] Contact Info) Description 01/09/2014 Abstract Neurology [address] [place] [address] Lino Mendiola MD [address] [place] [address] Seizures Social History Tobacco Use Types Packs/Day Years [...] hearing? Answer Date of Assessment Author No 01/09/2014 4:54 PM EDT Caroline Pineda MA * Are you blind or do you have serious difficulty seeing, even when wearing glasses? Answer Date of Assessment Author No 01/09/2014 4:54 PM EDT Caroline Pineda MA * Do you have serious difficulty walking or climbing stairs? Answer Date of Assessment Author No 01/09/2014 4:54 PM EDT Caroline Pineda MA * Do you have difficulty dressing or bathing? Answer Date of Assessment Author No 01/09/2014 4:54 PM EDT Caroline Pineda MA * Because of a physical, mental, or emotional condition, do you have difficulty doing errands alone such as visiting a doctor's office or shopping? Answer Date of Assessment Author No 01/09/2014 4:54 PM JAIMET Caroline Pineda MA documented as of this encounter Mental Status * Because of a physical, mental, or emotional condition, do you have serious difficulty concentrating, remembering, or making decisions? Answer Entry Date Author Yes 01/09/2014 4:54 PM EDT Caroline Pineda MA documented in this encounter Plan of Treatment Scheduled Orders Name Type Priority Associated Diagnoses Orde r Schedule EEG MONITORING ADULT EMU (24 HOUR WITH VIDEO) NEUROLOGY Routine Localization-related (focal) (partial) epilepsy and epileptic syndromes with complex partial seizures, with intractable epilepsy (HCC) Ordered: 01/09/2014 documented as of this encounter Visit Diagnoses Diagnosis Localization-related (focal) (partial) epilepsy and epileptic syndromes with complex partial seizures, with intractable epilepsy- Primary documented in this encounter Additional Health Concerns Infection Onset Date Last Indicated Resolved Time COVID-19 Rule-Out 09/20/2020 09/20/2020 09/20/2020 5:19 PM EDT COVID-19 Rule-Out 09/25/2024 09/25/2024 09/25/2024 1:15 PM EDT documented as of this encounter Care Teams Deckhand Oyster Dredge Relationship Specialty Start Date End Date Uriel Clements MD PCP - General Family Medicine 01/02/11 documented as of this encounter
--- OUTSIDE RECORDS SUMMARY | 2025-03-04 01:06 | XMS_ITS | Encounter Summary ---
Author Organization [facility] Address [address] [place] [address] Care Team Providers Care Visitor Services Assistant Name Role Phone Uriel Clements MD Primary Care Provider [phone] Source Comments In the event this information is protected by the Federal Confidentiality of Alcohol and Drug AbusePatient Records regulations: The Federal rules restrict any use of the information to criminally investigate or prosecute any alcohol or drug abuse patient.[facility] Encounter Details Date Type Department Care Team (Late st Contact Info) Description 01/21/2014 Abstract Endovascular Center [address] [place] [address] Robby Moreno PA-C [address] [place] [address] Social History Tobacco Use Types Packs/Day Years [...] hearing? Answer Date of Assessment Author No 01/21/2014 2:31 PM EDT Daisy Rubio RN * Are you blind or do you have serious difficulty seeing, even when wearing glasses? Answer Date of Assessment Author No 01/21/2014 2:31 PM EDT Daisy Rubio RN * Do you have serious difficulty walking or climbing stairs? Answer Date of Assessment Author No 01/21/2014 2:31 PM EDT Daisy Rubio RN * Do you have difficulty dressing or bathing? Answer Date of Assessment Author No 01/21/2014 2:31 PM EDT Daisy Rubio RN * Because of a physical, mental, or emotional condition, do you have difficulty doing errands alone such as visiting a doctor's office or shopping? Answer Date of Assessment Author No 01/21/2014 2:31 PM EDT Daisy Rubio RN documented as of this encounter Mental Status * Because of a physical, mental, or emotional condition, do you have serious difficulty concentrating, remembering, or making decisions? Answer Entry Date Author No 01/21/2014 2:31 PM EDT Daisy Rubio RN documented in this encounter Plan of Treatment Not on file documented as of this encounter Visit Diagnoses Not on filedocumented in this encounter Additional Health Concerns Infection Onset Date Last Indicated Resolved Time COVID-19 Rule-Out 09/20/2020 09/20/2020 09/20/2020 5:19 PM EDT COVID-19 Rule-Out 09/25/2024 09/25/2024 09/25/2024 1:15 PM EDT documented as of this encounter Care Teams Visitor Services Assistant Relationship Specialty Start Date End Date Uriel Clements MD PCP - General Family Medicine 01/02/11 documented as of this encounter
--- OUTSIDE RECORDS SUMMARY | 2025-03-04 01:06 | XMS_ITS | Encounter Summary ---
Author Organization [facility] Address [address] [place] [address] Care Team Providers Care Clay Mine Cutting Machine Operator Name Role Phone Uriel Clements MD Primary Care Provider [phone] Source Comments In the event this information is protected by the Federal Confidentiality of Alcohol and Drug AbusePatient Records regulations: The Federal rules restrict any use of the information to criminally investigate or prosecute any alcohol or drug abuse patient.[facility] Encounter Details Date Type Department Care Team (Late st Contact Info) Description 12/17/2023 Patient Msg Neurology [address] [place] [address] Jessenia Treviño, ALVIN [address] [address] therapy options Social History Tobacco Use Types Packs/Day Years Used Date Smoking Tobacco: Never Smokeless Tobacco: Never Alcohol Use Standard Drinks/Week Comments No 0 (1 standard drink = 0.6 oz pur e alcohol) PHQ-2 Answer Date Recorded PHQ-2 score 0 11/17/2023 Area Deprivation Index Answer Date Shivam rded National Score (1-100), lower number is lower ri 78 10/27/2022 State Score (1-10), lower number is lower risk 6 10/27/2022 Data from: https://www.neighborhoodatlas.[facility]/. Last address used for calculation [address] 10/27/2022 Sex and Gender Information Value Date [...] documented as of this encounter Care Teams Clay Mine Cutting Machine Operator Relationship Specialty Start Date End Date Uriel Clements MD PCP - General Family Medicine 01/02/11 documented as of this encounter
--- OUTSIDE RECORDS SUMMARY | 2025-03-04 01:06 | XMS_ITS | Encounter Summary ---
Author Organization [facility] Address [address] [place] [address] Care Team Providers Care Pulverizer Mill Operator Name Role Phone Uriel Clements MD Primary Care Provider [phone] Source Comments In the event this information is protected by the Federal Confidentiality of Alcohol and Drug AbusePatient Records regulations: The Federal rules restrict any use of the information to criminally investigate or prosecute any alcohol or drug abuse patient.[facility] Encounter Details Date Type Department Care Team (Late st Contact Info) Description 12/11/2022 Patient Msg Neurology [address] [phone] Provider, [facility] Regarding your psychiatry transfer of care request Social History Tobacco Use Types Packs/Day Years [...] is lower risk 6 10/27/2022 Data from: https://www.neighborhoodatlas.[facility]/. Last address used for calculation [address] 10/27/2022 Sex and Gender Information Value Date [...] documented as of this encounter Care Teams Pulverizer Mill Operator Relationship Specialty Start Date End Date Uriel Clements MD PCP - General Family Medicine 01/02/11 documented as of this encounter
--- OUTSIDE RECORDS SUMMARY | 2025-03-04 01:06 | XMS_ITS | Clinical Summary ---
Author Organization [facility] Address [address] [place] [address] Phone Care Team Providers Care Dental Hygienist Mobile Coordinator Name Role Phone Unavailable Primary Care Provider [...] (1 - 3-dose sta ndard series) 2009 Influenza Vaccine (#1) 2024 COVID-19 Vaccine (1 - 2024-2 6 season) 2025 Zoster Vaccines (1 of 2) 2032 [...]
--- OUTSIDE RECORDS SUMMARY | 2025-03-04 01:06 | XMS_ITS | Encounter Summary ---
Author Organization [facility] Address [address] [place] [address] Care Team Providers Care Employment Appeals Examiner Name Role Phone Ureil Clements MD Primary Care Provider [phone] Source Comments In the event this information is protected by the Federal Confidentiality of Alcohol and Drug AbusePatient Records regulations: The Federal rules restrict any use of the information to criminally investigate or prosecute any alcohol or drug abuse patient.[facility] Encounter Details Date Type Department Care Team (Late st Contact Info) Description 02/20/2023 Patient Msg Neurology [address] [place] [address] Cassandra Grant, PhD [address] [place] [address] Followup Social History Tobacco Use Types Packs/Day Years Used Date Smoking Tobacco: Never Smokeless Tobacco: Never Alcohol Use Standard Drinks/Week Comments No 0 (1 standard drink = 0.6 oz pur e alcohol) PHQ-2 Answer Date Recorded PHQ-2 score 3 01/26/2023 Area Deprivation Index Answer Date Shivam rded National Score (1-100), lower number is lower ri sk 78 10/27/2022 State Score (1-10), lower number is lower risk 6 10/27/2022 Data from: https://www.neighborhoodatlas.medicine.[facility]/. Last address used for calculation [address] 10/27/2022 Sex and Gender Information Value Date [...] documented as of this encounter Care Teams Employment Appeals Examiner Relationship Specialty Start Date End Date Uriel Clements MD PCP - General Family Medicine 01/02/11 documented as of this encounter
--- OUTSIDE RECORDS SUMMARY | 2025-03-04 01:06 | XMS_ITS | Encounter Summary ---
Author Organization [facility] Address [address] [place] [address] Care Team Providers Care Correspondence Representative Name Role Phone Uriel Clements MD Primary Care Provider [phone] Source Comments In the event this information is protected by the Federal Confidentiality of Alcohol and Drug AbusePatient Records regulations: The Federal rules restrict any use of the information to criminally investigate or prosecute any alcohol or drug abuse patient.[facility] Encounter Details Date Type Department Care Team ([facility] Contact Info) Description 11/03/2023 Patient Msg Neurology [address] [place] [phone] Jessenia Treviño, ALVIN [address] [address] contact information Social History Tobacco Use Types Packs/Day Years Used Date Smoking Tobacco: Never Smokeless Tobacco: Never Alcohol Use Standard Drinks/Week Comments No 0 (1 standard drink = 0.6 oz pur e alcohol) PHQ-2 Answer Date Recorded PHQ-2 score 2 11/03/2023 Area Deprivation Index Answer Date Shivam rded National Score (1-100), lower number is lower ri 78 10/27/2022 State Score (1-10), lower number is lower risk 6 10/27/2022 Data from: https://www.neighborhoodatlas.[facility]/. Last address used for calculation [address] 10/27/2022 Sex and Gender Information Value Date [...] documented as of this encounter Care Teams Correspondence Representative Relationship Specialty Start Date End Date Uriel Clements MD PCP - General Family Medicine 01/02/11 documented as of this encounter
--- OUTSIDE RECORDS SUMMARY | 2025-03-04 01:06 | XMS_ITS | Encounter Summary ---
Author Organization [facility] Address [address] [place] [address] Care Team Providers Care Marine Designer Name Role Phone Uriel Clements MD Primary Care Provider [phone] Source Comments In the event this information is protected by the Federal Confidentiality of Alcohol and Drug AbusePatient Records regulations: The Federal rules restrict any use of the information to criminally investigate or prosecute any alcohol or drug abuse patient.[facility] Encounter Details Date Type Department Care Team (Late st Contact Info) Description 06/20/2020 Abstract Neurosurgery [address] [phone] [place] [address] [place] [address] Social History Tobacco Use Types Packs/Day Years Used Date Smoking Tobacco: Never Smokeless Tobacco: Never Alcohol Use Standard Drinks/Week Comments No 0 (1 standard drink = 0.6 oz pur e alcohol) PHQ-2 Answer Date Recorded PHQ-2 score 4 06/20/2020 Area Deprivation Index Answer Date Shivam rded National Score (1-100), lower number is lower ri Not on file 04/21/2020 State Score (1-10), lower number is lower risk N ot on file 04/21/2020 Data from: https://www.neighborhoodatlas.medicine.[facility]/. Last address used for calculation Not on file 04/21/2020 Sex and Gender Information Value Date Recorded Sex Assigned at Not on file Legal Sex Male 10:06 AM EST Gender Identity Not on file Sexual Orientation Not on file COVID-19 Exposure Response Date Recorded In the last month, have you been in contact with someone who was confirmed or suspected to have Coronavirus / COVID-19? No / Unsure 06/20/2020 8:28 AM EST documented as of this encounter Functional Status * Are you deaf or do you have serious difficulty hearing? Answer Date of Assessment Author No 02/05/2018 12:17 PM Arleth Flanagan (Rn) (Hist), RN * Are you blind or do you have serious difficulty seeing, even when wearing glasses? Answer Date of Assessment Author No 02/05/2018 12:17 PM Arleth Flanagan (Rn) (Hist), RN * Do you have serious difficulty walking or climbing stairs? Answer Date of Assessment Author No 02/05/2018 12:17 PM Arleth Flanagan (Rn) (Hist), RN * Do you have difficulty dressing or bathing? Answer Date of Assessment Author No 02/05/2018 12:17 PM Arleth Flanagan (Rn) (Hist), RN * Because of a physical, mental, or emotional condition, do you have difficulty doing errands alone such as visiting a doctor's office or shopping? Answer Date of Assessment Author No 02/05/2018 12:17 PM Arleth Flanagan (Rn) (Hist), RN documented as of this encounter Mental Status * Because of a physical, mental, or emotional condition, do you have serious difficulty concentrating, remembering, or making decisions? Answer Entry Date Author No 02/05/2018 12:17 PM Arleth FlanaganRn) (Hist), RN documented in this encounter Plan of Treatment Not on file documented as of this encounter Visit Diagnoses Not on filedocumented in this encounter Additional Health Concerns Infection Onset Date Last Indicated Resolved Time COVID-19 Rule-Out 09/20/2020 09/20/2020 09/20/2020 5:19 PM EDT COVID-19 Rule-Out 09/25/2024 09/25/2024 09/25/2024 1:15 PM EDT documented as of this encounter Care Teams Marine Designer Relationship Specialty Start Date End Date Uriel Clements MD PCP - General Family Medicine 01/02/11 documented as of this encounter
--- OUTSIDE RECORDS SUMMARY | 2025-03-04 01:06 | XMS_ITS | Encounter Summary ---
Author Organization [facility] Address [address] [place] [address] Care Team Providers Care Netsuite Developer Name Role Phone Uriel Clements MD Primary Care Provider [phone] Source Comments In the event this information is protected by the Federal Confidentiality of Alcohol and Drug AbusePatient Records regulations: The Federal rules restrict any use of the information to criminally investigate or prosecute any alcohol or drug abuse patient.[facility] Encounter Details Date Type Department Care Team (Late st Contact Info) Description 08/12/2022 Patient Msg Neurology [address] [place] [address] [place] [address] [address] [place] [address] Medication information Social History Tobacco Use Types Packs/Day [...] N ot on file 06/13/2022 Data from: https://www.neighborhoodatlas.medicine.[facility]/. Last address used for calculation [address] 06/13/2022 Sex and Gender Information Value [...] Gris Dunne RN documented in this encounter Miscellaneous Notes * Telephone Encounter - Stephanie Liao RN - 08/20/2022 1:54 PM EDT PA submitted via jese Coles (Hernandez: [id number]) Emgality 120MG/ML auto-injectors (migraine) documented in this encounter Plan of Treatment Not on file documented as of this encounter Visit Diagnoses Not on filedocumented in this encounter Additional Health Concerns Infection Onset Date Last Indicated Resolved Time COVID-19 Rule-Out 09/25/2024 09/25/2024 09/25/2024 1:15 PM EDT documented as of this encounter Care Teams Netsuite Developer Relationship Specialty Start Date End Date Uriel Clements MD PCP - General Family Medicine 01/02/11 documented as of this encounter
--- OUTSIDE RECORDS SUMMARY | 2025-03-04 01:06 | XMS_ITS | Encounter Summary ---
Author Organization [facility] Address [address] [place] [address] Care Team Providers Care Melter Supervisor Open Hearth Furnace Name Role Phone Uriel Clements MD Primary Care Provider [phone] Source Comments In the event this information is protected by the Federal Confidentiality of Alcohol and Drug AbusePatient Records regulations: The Federal rules restrict any use of the information to criminally investigate or prosecute any alcohol or drug abuse patient.[facility] Encounter Details Date Type Department Care Team (Late st Contact Info) Description 05/06/2023 [place] [address] Provider, [facility] Questionnaire Submission Social History Tobacco Use Types Packs/Day Years [...] is lower risk 6 10/27/2022 Data from: https://www.neighborhoodatlas.medicine.[facility].edu/. Last address used for calculation [address] 10/27/2022 Sex and Gender Information Value [...] documented as of this encounter Care Teams Melter Supervisor Open Hearth Furnace Relationship Specialty Start Date End Date Uriel Clements MD PCP - General Family Medicine 01/02/11 documented as of this encounter
--- OUTSIDE RECORDS SUMMARY | 2025-03-04 01:06 | XMS_ITS | Encounter Summary ---
Author Organization [facility] Address [address] [place] [address] Care Team Providers Care Gas Appliance Servicer Helper Name Role Phone Uriel Clements MD Primary Care Provider [phone] Source Comments In the event this information is protected by the Federal Confidentiality of Alcohol and Drug AbusePatient Records regulations: The Federal rules restrict any use of the information to criminally investigate or prosecute any alcohol or drug abuse patient.[facility] Encounter Details Date Type Department Care Team (Late st Contact Info) Description 05/16/2019 [facility] M023 [address] [place] [address] Kiko Borrero MD [address] [place] [address] Social History Tobacco Use Types [...] documented as of this encounter Care Teams Gas Appliance Servicer Helper Relationship Specialty Start Date End Date Uriel Clements MD PCP - General Family Medicine 01/02/11 documented as of this encounter
--- OUTSIDE RECORDS SUMMARY | 2025-03-04 01:06 | XMS_ITS | Encounter Summary ---
Author Organization [facility] Address [address] [place] [address] Care Team Providers Care Technical Support Agent Name Role Phone Uriel Clements MD Primary Care Provider [phone] Source Comments In the event this information is protected by the Federal Confidentiality of Alcohol and Drug AbusePatient Records regulations: The Federal rules restrict any use of the information to criminally investigate or prosecute any alcohol or drug abuse patient.[facility] Encounter Details Date Type Department Care Team (Late st Contact Info) Description 10/09/2023 Patient Msg Neurology [address] [id number] Provider, [facility] New Provider Social History Tobacco Use Types Packs/Day Years Used Date Smoking Tobacco: Never Smokeless Tobacco: Never Alcohol Use Standard Drinks/Week Comments No 0 (1 standard drink = 0.6 oz pur e alcohol) PHQ-2 Answer Date Recorded PHQ-2 score 4 10/07/2023 Area Deprivation Index Answer Date Shivam rded National Score (1-100), lower number is lower ri sk 78 10/27/2022 State Score (1-10), lower number is lower risk 6 10/27/2022 Data from: https://www.neighborhoodatlas.[facility]/. Last address used for calculation [address] 10/27/2022 Sex and Gender Information Value [...] documented as of this encounter Care Teams Technical Support Agent Relationship Specialty Start Date End Date Uriel Clements MD PCP - General Family Medicine 01/02/11 documented as of this encounter
--- OUTSIDE RECORDS SUMMARY | 2025-03-04 01:06 | XMS_ITS | Encounter Summary ---
Author Organization [facility] Address [address] [place] [address] Care Team Providers Care Cow Puncher Name Role Phone Uriel Clements MD Primary Care Provider [phone] Source Comments In the event this information is protected by the Federal Confidentiality of Alcohol and Drug AbusePatient Records regulations: The Federal rules restrict any use of the information to criminally investigate or prosecute any alcohol or drug abuse patient.[facility] Encounter Details Date Type Department Care Team (Late st Contact Info) Description 08/31/2022 [place] [address] Provider, [facility] MRI Screening Questionnaire Completion Required Social History Tobacco Use Types Packs/Day Years [...] N ot on file 06/13/2022 Data from: https://www.[facility]/. Last address used for calculation [address] 06/13/2022 Sex and Gender Information Value Date [...] documented as of this encounter Care Teams Cow Puncher Relationship Specialty Start Date End Date Uriel Clements MD PCP - General Family Medicine 01/02/11 documented as of this encounter
--- OUTSIDE RECORDS SUMMARY | 2025-03-04 01:06 | XMS_ITS | Encounter Summary ---
Author Organization [facility] Address [address] [place] [address] Care Team Providers Care Radiology Physician Assistant Name Role Phone Uriel Clements MD Primary Care Provider [phone] Uriel Clements MD Primary Care Provider [phone] Encounter Details Date Type Department Care Team (Late st Contact Info) Description 10/28/2022 Abstract [facility] [address] [facility] [facility] [facility] [address] [place] [address] Chandu Lee, PT Social History Tobacco Use [...] on filedocumented in this encounter Care Teams Radiology Physician Assistant Relationship Specialty Start Date End Date Uriel Clements MD PCP - General Family Medicine 10/21/22 02/21/25 Uriel Clements MD [address] [place] [address] PCP - General Family Medicine 02/22/25 documented as of this encounter
--- OUTSIDE RECORDS SUMMARY | 2025-03-04 01:06 | XMS_ITS | Encounter Summary ---
Author Organization [facility] Address [address] [place] [address] Care Team Providers Care Personalized Living Assistant Name Role Phone Uriel Clements MD Primary Care Provider [phone] Source Comments In the event this information is protected by the Federal Confidentiality of Alcohol and Drug AbusePatient Records regulations: The Federal rules restrict any use of the information to criminally investigate or prosecute any alcohol or drug abuse patient.[facility] Encounter Details Date Type Department Care Team (Late st Contact Info) Description 05/12/2023 Patient Msg [facility] [address] [place] [address] [facility] [address] [place], [place] [id number] Treatment Plan Social History Tobacco Use Types Packs/Day Years [...] is lower risk 6 10/27/2022 Data from: https://www.neighborhoodatlas.[facility]/. Last address used for calculation [address] 10/27/2022 Sex and Gender Information Value [...] documented as of this encounter Care Teams Personalized Living Assistant Relationship Specialty Start Date End Date Uriel Clements MD PCP - General Family Medicine 01/02/11 documented as of this encounter
--- OUTSIDE RECORDS SUMMARY | 2025-03-04 01:06 | XMS_ITS | Encounter Summary ---
Author Organization [facility] Address [address] [place] [address] Care Team Providers Care Manager Long Term Care Name Role Phone Uriel Clements MD Primary Care Provider [phone] Source Comments In the event this information is protected by the Federal Confidentiality of Alcohol and Drug AbusePatient Records regulations: The Federal rules restrict any use of the information to criminally investigate or prosecute any alcohol or drug abuse patient.[facility] Encounter Details Date Type Department Care Team (Late st Contact Info) Description 09/27/2021 Patient Msg Neurology [address] [place] [address] Lesvia Viveros, PSYD [address] [place] [address] Appointment Social History Tobacco Use Types Packs/Day Years Used Date Smoking Tobacco: Never Smokeless Tobacco: Never Alcohol Use Standard Drinks/Week Comments No 0 (1 standard drink = 0.6 oz pur e alcohol) PHQ-2 Answer Date Recorded PHQ-2 score 3 09/13/2021 Area Deprivation Index Answer Date Shivam rded National Score (1-100), lower number is lower ri sk Not on file 04/21/2020 State Score (1-10), lower number is lower risk N ot on file 04/21/2020 Data from: https://www.neighborhoodatlas.[facility]/. Last address used for calculation Not on file 04/21/2020 Sex and Gender Information Value Date Recorded Sex Assigned at Not on file Legal Sex Male 10:06 AM EST Gender Identity Not on file Sexual Orientation Not on file COVID-19 Exposure Response Date Recorded In the last 10 days, have yo u been in contact with someone who was confirmed or suspected to have Coronavirus/COVID-19? No / Unsure 08/29/2021 9:30 AM EDT documented as of this encounter [...] documented as of this encounter Care Teams Manager Long Term Care Relationship Specialty Start Date End Date Uriel Clements MD PCP - General Family Medicine 01/02/11 documented as of this encounter
--- OUTSIDE RECORDS SUMMARY | 2025-03-04 01:07 | XMS_ITS | Clinical Summary ---
Author Organization [facility] Address [address] [place] [address] Care Team Providers Care Corner Cutter Machine Operator Name Role Phone Uriel Clements MD Primary Care Provider [phone] Allergies Active Allergy Reactions Criticality Noted Date Comments Levetiracetam Other: See Comments 07/31/2010 Increases his ADHD Ketorolac Tromethamine Unknown 09/14/2016 unknown Desvenlafaxine Other: See Comments 01/12/2014 sz Medications * This document contains information received from the source organization and may not represent a complete record from that organization. albuterol HFA (PROVENTIL HFA, VENTOLIN HFA) 90 mcg/actuation inhaler Inhale 1-2 Puffs as instructed as needed for Wheezing/Shortnes s of Breath. Active Cetirizine 10 mg cap Take 1-2 tablets by mouth as needed. Active fluticasone (FLONASE) 50 mcg/actuation nasal spray Use 1 [place] in each nostril twice daily. Active CPAPIndications:Bi polar II disorder (HCC),Psychophysio logic insomnia,HIMA (obstructive sleep apnea) Change the pressure of autoBipap with EPAP 5-15 mh2o and PS 4-8cmh2O. His DME company is [email or web address] , new mask to fit patient preference, ramp, humidification and unlimited supplies Please send us machine download in 1 month 1 Device 06/20/19 21 Active CPAPIndications:OS A (obstructive sleep apnea) Please send us machine download in 1 month 1 Device 06/20/19 21 Active benzocaine-menthol (CEPACOL) 15-3.6 mg lozg Use 1 Lozenge as instructed every 2 hours as needed. 30 Lozenge 04/28/20 22 Active QUEtiapine (SEROQUEL) 50 mg tablet take 1 tablet by mouth three times daily as needed for anxiety 90 tablet 10 02/03/20 23 Active promethazine (PHENERGAN) 25 mg tabletIndications: Chronic migraine without aura without status migrainosus, not intractable 1 po tid prn headache or nausea 90 tablet 03/26/20 23 Active simvastatin (ZOCOR) 20 mg tablet Take 20 mg by mouth every evening. 05/21/19 24 Active lurasidone (LATUDA) 80 mg tablet TAKE 1 TABLET BY MOUTH DAILY WITH DINNER *LOWER THE SEROQUEL TO 100 MG IN THE EVENING* 30 tablet 10 05/19/19 25 Active lurasidone (LATUDA) 20 mg tablet TAKE 1 TABLET BY MOUTH EVERY DAY WITH BREAKFAST 30 tablet 2 05/30/19 25 Active QUEtiapine (SEROQUEL) 200 mg tablet TAKE 1 TABLET BY MOUTH EVERY NIGHT AT BEDTIME 30 tablet 10 07/20/19 25 Active rizatriptan ([employer] PROJECT MANAGER) 10 mg disintegrating tabletIndications: Chronic migraine without aura without status migrainosus, not intractable PLACE 1 TABLET ON TONGUE AND ALLOW TO DISSOLVE NEEDED AT ONSET OF HEADACHE. MAY REPEAT AFTER 2 HOURS. DO NOT EXCEED 30MG PER DAY 9 tablet 10 08/18/19 25 Active sertraline (ZOLOFT) 100 mg tablet TAKE 3 TABLETS BY MOUTH ONCE DAILY 90 tablet 10 08/18/19 25 Active acetaminophen (TYLENOL) 325 mg tablet 2 tablets by ORAL/FEEDING TUBE route every 4 hours as needed for pain or fever (specify temp.). 09/28/19 25 Active methocarbamol (ROBAXIN) 500 mg tablet Take 1 tablet by mouth three times a day as needed first line for muscle spasm or jaw pain 15 tablet 5 1:24 PM EDT 09/28/19 25 Active clonazePAM (KLONOPIN) 2 mg tabletIndications: Partial epilepsy with impairment of consciousness, intractable (HCC) Take 1 tablet by mouth three times a day for 180 days. 90 tablet 5 12/16/19 25 026 Active lacosamide (VIMPAT) 100 mg tabIndications:Par tial epilepsy with impairment of consciousness, intractable (HCC) Take 1 tablet by mouth every 12 hours for 180 days. 60 tablet 5 12/16/19 25 026 Active cloNIDine HCl (CATAPRES) 0.1 mg tablet TAKE 1 TABLET BY MOUTH IN THE MORNING AND 2 TABLETS AT NIGHT 90 tablet 12/16/19 Active AIMOVIG AUTOINJECTOR 140 mg/mL auto-injectorIndic ations:Chronic migraine without aura without status migrainosus, not intractable INJECT 1ML SUBCUTANEOUSLY EVERY MONTH 1 mL 12/16/19 Active Active Problems Patient Care Coordination No te Formatting of this note migh t be different from the original. Patient Summary: This is a 35 year old male with a medical history significant for complex partial seizures with intractable epilepsy and anxiety/depression, who presents from OSH for unresponsiveness and subsequent respiratory failure requiring intubation from medication overdose vs seizure postictal phase. He was transferred to [facility] MICU for further evaluation and management. Interval History: 04/07: Patient intubated and unresponsive to verbal stimuli, minimal response to painful stimuli. Patient's family at bedside and was able to provide history. 04/08: Became combative overnight and tried to remove ET tube and get out of bed. Propofol was increased from 10 to 40. Propofol was then weaned and patient had sucessful trial on PSV, was subsequently extubated. 04/09: Patient awake and comfortable. Is anxious about being discharged so that he can be home for Thanksgiving. Plan: Neuro: Unresponsiveness, Medication OD vs seizure post ictal phase Urine tox screen at OSH ED was positive for opiates and benzos, negative for acetaminophen and salicylates. Given a total of 9.4mg of Narcan in ED which enabled him to transiently wake up. Flumazenil was administered without improvement. Was prescribed 40 tablets of percocet s/p vagal stimulator battery replacement procedure on 04/01, family concerned he may have OD on this medication. Family unsure of dose. Repeat serum acetaminophen levels in the evening of 04/07 WNL. LFTs/coags remain stable. Lacosamide levels WNL. CT of head without contrast at OSH hospital not significant for any acute processes. Findings partially limited by beam hardening artifact. Repeat CT of head (04/07): Reduced hernandez-white matter differentiation in frontal, parietal and occipital. Artifact vs subacute early hypoxic ischemia. Patient admits to family that he took several of his Lyrica pills because he was unable to sleep for several days and thought it would allow him to get rest. - Appreciate Neuro recs. - Pending Lyrica serum levels. Epilepsy Vagal stimulator battery replaced 04/01 at [facility] Main. Home PO antiepileptics: Clonazepam 2mg TID, Lacosamide 50mg BID, and Lyrica 300mg BID. Family states he is often noncompliant with PO medications, patient states he is always compliant. Per family, last seizure was in beginning of March. Post ictally presents with unresponsiveness and snoring respirators. IV Dilantin usually brings patient out of seizure postictal phase. VNS interrogation 04/07 confirms device is functioning properly. 23-minute EEG (04/07): Not significant for seizures or epileptiform discharges. Prelim report from continuous EEG overnight (04/07-04/08): Not significant for seizures. - Continue AEDs per Neuro: Lyrica 300 BID, Clonazepam 2mg TID, Lacosamide 50/50/100. Psych: Depression/anxiety Home meds: Zoloft 50mg daily and Cymbalta 60mg. Family is unsure if patient is compliant. Found note written by patient expressing how he feels hopeless. Mother states he often hoards bags of medication, hx of two prior suicide attempts in the past; most recent being ~3 years ago with a Lyrica OD and the other being in high school with a Depakote OD. Family states over the past couple of months he has been significantly more depressed. Patient denies suicidal ideation. - Appreciate Psych recs for initiating mood medications. CV: EKG with NSR. QTc 409. Troponin/CK-MB WNL x3 sets. Pulmonary: Acute Respiratory Failure in the Setting of AMS, resolved. Intubated from 04/07-04/08. CXR (04/07) not significant for any acute cardiopulmonary changes, no signs of aspiration. - Continue to monitor respiratory status. GI: Nutrition: Normal diet. Renal: No issues at this time. - Continue to monitor I/Os, electrolytes. ID: Patient afebrile without leukocytosis. No concerns for infection at this time. Dispo: - Full Code. - Transfer to [facility]. - Plan discussed with MICU staff. Problem Noted Date Diagnosed Date Vagus nerve disorder 09/25/2024 Lumbosacral spondylosis without myelopathy 07/27 Neck pain 07/27/2024 Degeneration of intervertebr al disc of lumbar region with discogenic back pain 03/30/2024 Radiculopathy, lumbosacral region 03/30/2024 Chronic bilateral low back pain with bilateral s ciatica 03/30/2024 HTN (hypertension) 08/26/2023 Assessment & Plan (08/26/2023 8:04 AM EDT): Stable, on rx. BP 141/90 in office today. Bipolar I disorder, most recent episode depresse d 05/27/2023 Severe mixed bipolar I disorder without psychoti c features 05/12/2023 Assessment & Plan (08/26/2023 8:11 AM EDT): On rx. Post-traumatic stress disorder, chronic 05/12/20 23 Anxiety disorder 05/12/2023 Migraine without aura, intractable, with status migrainosus 12/22/2022 Assessment & Plan (08/26/2023 8:15 AM EDT): On Darlin HenaoN. Follows with neurology/headache specialist. Recurrent major depression in partial remission 09/02/2021 Complex partial seizures brooks lving to generalized tonic-clonic seizures 02/12/2021 Acute postoperative pain 09/21/2020 Generalized epilepsy 09/20/2020 Psychophysiologic insomnia 06/20/2020 HIMA (obstructive sleep apnea) 06/20/2020 Assessment & Plan (08/26/2023 8:06 AM EDT): Compliant with BiPAP. S/P placement of VNS (vagus nerve stimulation) d evice 12/20/2018 Gastroesophageal reflux disease without esophagi tis 02/03/2018 Partial epilepsy with impair ment of consciousness, intractable 01/12/2018 Overview (01/12/2018): Added automatically from request for surgery [id number] Obesity, Class I, BMI 30-34.9 11/24/2017 Bipolar II disorder 07/02/2016 Respiratory failure requiring intubation 016 Hx of suicide attempt 04/07/2016 Depression with anxiety 01/12/2014 Assessment & Plan (08/26/2023 11:10 AM EDT): On rx. 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 On Klonopin, Vimpat. Last seizure in 2012. Follows with neurology. Epilepsy 06/18/2004 Resolved Problems Problem Noted Date Diagnosed Date Resolved Date Acute respiratory failure 04/07/2016 Encounters * This document contains information received from the source organization and may not represent a complete record from that organization. Date Type Department Care Team Description 12/14/2024 Refill Neurology [address] [id number] Madelaine Jones MD Refill Request 12/14/2024 Refill Neurology [address] [id number] Bennett Boss PA-C Refill Request from Last 3 Months Family History Medical History Relation Comments Cancer Father Hypertension Father Arthritis Maternal Grandmother Hypertension Maternal Grandmother Headache Mother Hypertension Mother Lipids Mother Stroke Mother Arthritis Paternal Grandmother Headache Sister Anesthesia Problems No Family History Relation Status Comments Father Maternal Grandmother Mother Paternal Grandmother Sister Social History Tobacco Use Types Packs/Day Years Used Date Smoking Tobacco: Never Smokeless Tobacco: Never Tobacco Cessation:Counseling Given: Not Answered Alcohol Use Standard Drinks/Week Comments No 0 (1 standard drink = 0.6 oz pur e alcohol) PHQ-2 Answer Date Recorded PHQ-2 score 4 02/29/2024 Area Deprivation Index Answer Date Shivam rded National Score (1-100), lower number is lower ri sk 78 08/31/2024 State Score (1-10), lower number is lower risk 6 08/31/2024 Data from: https://www.neighborhoodatlas.medicine.[facility].edu/. Last address used for calculation [address] [place] [address] 08/31/2024 Sex and Gender Information Value Date Recorded Sex Assigned at Not on file Legal Sex Male 10:06 AM EST Gender Identity Not on file Sexual Orientation Not on file Last Filed Vital Signs Vital Sign Reading Time Taken Comments Blood Pressure 138/92 10/13/2024 9:26 AM EDT Pulse 98 10/13/2024 9:26 AM EDT Temperature 36.9 C (98.4 F) 09/27/2024 5:15 PM EDT Respiratory Rate 18 09/27/2024 5:15 PM EDT Oxygen Saturation 96% 10/13/2024 9:26 AM EDT Inhaled Oxygen Concentration - - Weight 95.3 kg (210 lb) 10/13/2024 9:26 AM EDT Height 177.8 cm (5' 10 ) 10/13/2024 9:26 AM EDT Body Mass Index 30.13 10/13/2024 9:26 AM EDT Plan of Treatment Health Maintenance Due Date Last Done Comments Annual PCP Team Chronic Disease Visit 2000 DTaP,Tdap,Td Vaccine (1 - Tdap) 2001 Hepatitis B Vaccine (1 of 3 - 19+ 3-dose series) 2001 Medicare Annual Wellness Visit 02/15/2006 HPV Vaccine (1 - 3-dose SCDM series) 2009 Covid-19 Vaccine ( - 2024- season) 2025, 02/18/2021 Influenza Vaccine (#1) 2025 Lipid Screening 06/20/2025 06/20/2020 HIV Screening Completed 05/16/2019 Hepatitis C Screening Completed 05/16/2019 Medical Devices Implanted Type Area [place] Aide Device Identifier Shelf Expiration Date Model / Serial / Lot Generator Vns Therapy Aspirehc Neurostimulator Epilepsy Sterile - [id number] Implanted:Qty: 1 on 02/04/2018 by Shane McdonnellHistMD Viviane at [facility] Generator Left: Chest Wall [employer] 05/22/2018 105 / [id number] / Bhy-Ur-C-Kind Implant - [id number] Implanted:Qty: 1 on 04/01/2016 at [facility] Implant Left: Chest [employer] 06/22/2016 105 / [id number] / Description:GENERATOR VNS TH ERAPY ASPIRC NEUROSTIMULATOR EPILEPSY STERILE Lead Vns Therapy 2mm Silicone 43cm Neurostimulator 1 Pin Bipolar Model - [id number] Implanted:Qty: 1 on 09/20/2020 at [facility] Lead Left: Chest [employer] [facility] 05/01/2023 303-20 / [id number] / Generator Vns Therapy Aspiresr Thk7mm Neurostimulator 14cc 1 Pin Lead - [id number] Implanted: 019 at [facility] (Quantity not on file) Neurostimulator Left: Chest [employer] 10/04/2020 106 / [id number] / Generator Vns Therapy Aspiresr Thk7mm Neurostimulator 14cc 1 Pin Lead - [id number] Implanted:Qty: 1 on 06/28/2020 at [facility] Neurostimulator Left: Chest [employer] 12/27/2021 106 / [id number] / Generator Vns Therapy Aspiresr Thk7mm Neurostimulator 14cc 1 Pin Lead - [id number] Implanted:Qty: 1 on 09/20/2020 at [facility] Neurostimulator Left: Chest [facility] 106 / / Generator Vns Therapy Aspiresr Thk7mm Neurostimulator 14cc 1 Pin Lead - [id number] Implanted:Qty: 1 on 08/31/2023 at [facility] Neurostimulator Left: Chest [employer] [facility] 06/21/2025 106 / [id number] / Generator Vns Therapy Aspiresr Thk7mm Neurostimulator 14cc 1 Pin Lead - [id number] Implanted:Qty: 1 on 09/26/2024 at [facility] Neurostimulator Left: Chest [employer] [facility] 12/22/2025 106 / [id number] / Procedures Procedure Name Priority Date/Time Associated Diagnosis Comments LIPID PANEL, FASTING Routine 06/20/2020 12:56 PM EST Other senior living (current) drug therapy Encounter for therapeutic drug level monitoring OCCUPATIONAL HEALTH EXPOSURE PROFILE/PATIENT STAT 05/16/2019 3:20 PM EST from Last 3 Months or Most Recently Relevant to Health Maintenance Results * (ABNORMAL) LIPID PANEL BASIC (06/20/2020 12:56 PM EST) Cholesterol, Total 219(H) <200 mg/dL 06/20/2020 6:14 PM [facility] Comment: <200 mg/dL, Desirable 200-239 mg/dL, Borderline high >239 mg/dL, High Triglyceride 94 <150 mg/dL 06/20/2020 6:14 PM [facility] Comment: <150 mg/dL, Normal 150-199 mg/dL, Borderline high 200-499 mg/dL, High >499 mg/dL, Very high HDL Cholesterol 43 >39 mg/dL 6:14 PM [facility] Comment: 40-59 mg/dL, Acceptable >59 mg/dL, High: Negative risk factor for coronary heart disease <40 mg/dL, Low: Positive risk factor for coronary heart disease LDL Cholesterol, Calculated 157(H) <100 mg/dL 06/20/2020 6:14 PM [facility] Comment: <100 mg/dL, Optimal 100-129 mg/dL, Near optimal/above optimal 130-159 mg/dL, Borderline high 160-189 mg/dL, High >189 mg/dL, Very high Secondary prevention optimal LDL Cholesterol levels are recommended to be < 70 mg/dL Non HDL Cholesterol 176(H) <130 mg/dL 06/20/2020 6:14 PM [facility] Comment: <130 mg/dL, Optimal 130-159 mg/dL, Near optimal/above optimal 160-189 mg/dL, Borderline high 190-219 mg/dL, High >219 mg/dL, Very high Secondary prevention optimal non HDL Cholesterol levels are recommended to be < 100 mg/dL Fasting Time Unknown hrs 06/20/2020 6:14 PM [facility] VLDL Cholesterol 19 <30 mg/dL 06/20/19 6:14 PM [facility] TC:HDL Ratio 5.09 <5.10 06/20/2020 6:14 PM [facility] LDL:HDL Ratio 3.65(H) <2.54 06/20/2020 6:14 PM [facility] Comment: Reference: 1. National Cholesterol Education Program ATP III Guideline At-A-Glance Quick Desk Reference: National Heart, Lung, and Blood [place]. National Institutes of Health. 2001: NIH Publication No. 01-3305. 2. An International Atherosclerosis Society position paper: global recommendations for the management of dyslipidemia: executive summary, Atherosclerosis. 2014: 232(2):410-413. Blood 06/20/2020 12:5 6 PM EST 06/20/2020 12:58 PM EST Milan Chi MD LABORATORY Final Result [facility] [address] [place] [address] [facility] [address] [place] [address] * OCCUPATIONAL HEALTH EXPOSURE PROFILE/PATIENT (05/16/2019 3:20 PM EST) HBsAg Negative Negative 05/18/2019 7:29 PM EST [facility] HIV 12 Combo (Ag/Ab) Non Reactive Non Reactive 05/18/2019 7:30 PM EST [facility] HIV 1/2 Ab Confirmatory Test Not Indicated 05/18/2019 7:30 PM EST [facility] HIV Interpretation Negative 05/18/2019 7:30 PM EST [facility] Comment: No evidence of HIV-1 or HIV-2 infection. Should recent infection be suspected, repeat testing may be considered 2-3 weeks after this draw. HIV Information: [place] Rev. Code 3701.243(E): This information has been disclosed to you from confidential records protected from disclosure by state law. You shall make no further disclosure of this information without the specific, written, and informed release of the individual to whom it pertains or as otherwise permitted by state law. A general authorization for the release of medical or other information is not sufficient for the purpose of the release of HIV test results or diagnoses. Hep C Antibody IA Negative Negative 020 7:30 PM EST [facility] HIV, Rapid ([facility]) Negative Negative 05/16/2019 4:02 PM EST [facility] Comment: Negative for both HIV1 and/or HIV2 antibodies and HIV1 p24 antigen. Called to [place]: [place] [id number] [address] SHARMA [phone] Performed via the Alere Determine HIV 1/2 Ag/Ab Combo point of care test. Instrumented antigen/antibody tests are preferred over the Alere Determine point of care test because the former are more sensitive for HIV during acute infection. (Reference: CDC Technical Update, Published 02/18/2017) HIV Information: [place] Rev. Code 3701.243(E): This information has been disclosed to you from confidential records protected from disclosure by state law. You shall make no further disclosure of this information without the specific, written, and informed release of the individual to whom it pertains or as otherwise permitted by state law. A general authorization for the release of medical or other information is not sufficient for the purpose of the release of HIV test results or diagnoses. Blood specimen (specimen) BLOOD SPECIMEN / Unknown 05/16/2019 3:20 PM EST 05/16/2019 3:25 PM EST us Kiko Borrero MD LABORATORY Final Resu lt [facility] [address] [place] [address] [facility] [address] [place] [address] from Last 3 Months or Most Recently Relevant to Health Maintenance Insurance MEDICARE MEDICAID [place] Care Teams Corner Cutter Machine Operator Relationship Specialty Start Date End Date Uriel Clements MD PCP - General Family Medicine 01/02/11
--- OUTSIDE RECORDS SUMMARY | 2025-03-04 01:07 | XMS_ITS | Encounter Summary ---
Author Organization [facility] Address [address] [place] [address] Care Team Providers Care Sprinkler Driver Name Role Phone Uriel Clements MD Primary Care Provider [phone] Source Comments In the event this information is protected by the Federal Confidentiality of Alcohol and Drug AbusePatient Records regulations: The Federal rules restrict any use of the information to criminally investigate or prosecute any alcohol or drug abuse patient.[facility] Encounter Details Date Type Department Care Team (Late st Contact Info) Description 11/18/2024 Get Medical Advice Neurology [address] [place] [address] [place] [id number] CHARISSE HERNANDEZ/[id number] [phone] headaches Social History Tobacco Use Types Packs/Day Years [...] is lower risk 6 08/31/2024 Data from: https://www.neighborhoodatlas.medicine.[facility]/. Last address used for calculation [address] 08/31/2024 Sex and Gender Information Value Date [...] on filedocumented in this encounter Care Teams Sprinkler Driver Relationship Specialty Start Date End Date Uriel Clements MD PCP - General Family Medicine 01/02/11 documented as of this encounter
--- OUTSIDE RECORDS SUMMARY | 2025-03-04 01:07 | XMS_ITS | Encounter Summary ---
Author Organization [facility] Address [address] [place] [address] Care Team Providers Care Dairy Farmer Name Role Phone Uriel Clements MD Primary Care Provider [phone] Source Comments In the event this information is protected by the Federal Confidentiality of Alcohol and Drug AbusePatient Records regulations: The Federal rules restrict any use of the information to criminally investigate or prosecute any alcohol or drug abuse patient.[facility] Encounter Details Date Type Department Care Team (Late st Contact Info) Description 10/03/2024 Patient Msg Neurology [address] [phone] Joy Damian, RN Social History Tobacco Use Types Packs/Day Years [...] is lower risk 6 08/31/2024 Data from: https://www.neighborhoodatlas.[facility]/. Last address used for calculation [address] 08/31/2024 Sex and Gender Information Value Date [...] on filedocumented in this encounter Care Teams Dairy Farmer Relationship Specialty Start Date End Date Uriel Clements MD PCP - General Family Medicine 01/02/11 documented as of this encounter
--- OUTSIDE RECORDS SUMMARY | 2025-03-04 01:07 | XMS_ITS | Encounter Summary ---
Author Organization [facility] Address [address] [place] [address] Care Team Providers Care Public Transportation Inspector Name Role Phone Uriel Clements MD Primary Care Provider [phone] Source Comments In the event this information is protected by the Federal Confidentiality of Alcohol and Drug AbusePatient Records regulations: The Federal rules restrict any use of the information to criminally investigate or prosecute any alcohol or drug abuse patient.[facility] Reason for Visit * Reason Comments Refill Request Encounter Details Date Type Department Care Team (Late Contact Info) Description 12/14/2024 Refill Neurology [address] [place] [address] Madelaine Jones MD [address], [place] [id number] Refill Request Social History Tobacco Use Types Packs/Day Years [...] is lower risk 6 08/31/2024 Data from: https://www.neighborhoodatlas.medicine.[facility]/. Last address used for calculation [address] 08/31/2024 Sex and Gender Information Value Date [...] encounter Miscellaneous Notes * Telephone Encounter - Jazmin Dupree MA - 12/15/2024 10:29 AM EDT Pharmacy verified in [employer]. Patient has been identified by name and date of : Yes Patient aware RX will be sent to pharmacy. No need to notify patient. Pharmacy phones for refill(s): Requested Prescriptions Pending Prescriptions Disp Refills AIMOVIG AUTOINJECTOR 140 mg/mL auto-injector [Pharmacy Med Name: AIMOVIG 140MG/ML AUTOINJECT 140 Injectable] 1 mL 11 Sig: INJECT 1ML SUBCUTANEOUSLY EVERY MONTH Date of last office visit : Visit date not found Date of next office visit : Visit date not found Last 2 Encounter Wt Readings: Date: Wt: 10/13/2024 95.3 kg (210 lb) 09/25/2024 97.8 kg (215 lb 9.8 oz) Please advise. Jazmin Dupree MA documented in this encounter Plan of Treatment Not on file documented as of this encounter Visit Diagnoses Diagnosis Chronic migraine without aura without status migrainosus, not intractable Chronic migraine without aura, without mention of intractable migraine without mention of status migrainosus documented in this encounter Care Teams Public Transportation Inspector Relationship Specialty Start Date End Date Uriel Clements MD PCP - General Family Medicine 01/02/11 documented as of this encounter
--- OUTSIDE RECORDS SUMMARY | 2025-03-04 01:07 | XMS_ITS | Encounter Summary ---
Author Organization [facility] Address [address] [place] [address] Care Team Providers Care Electrical Engineering Professor Name Role Phone Uriel Clements MD Primary Care Provider [phone] Source Comments In the event this information is protected by the Federal Confidentiality of Alcohol and Drug AbusePatient Records regulations: The Federal rules restrict any use of the information to criminally investigate or prosecute any alcohol or drug abuse patient.[facility] Encounter Details Date Type Department Care Team (Late st Contact Info) Description 09/26/2015 Patient Msg Medical Records [address] [place] [address] Provider, Ccf test Social History Tobacco Use Types Packs/Day Years [...] documented as of this encounter Care Teams Electrical Engineering Professor Relationship Specialty Start Date End Date Uriel Clements MD PCP - General Family Medicine 01/02/11 documented as of this encounter
--- OUTSIDE RECORDS SUMMARY | 2025-03-04 01:07 | XMS_ITS | Encounter Summary ---
Author Organization [facility] Address [address] [place] [address] Care Team Providers Care System Support Administrator Name Role Phone Uriel Clements MD Primary Care Provider [phone] Source Comments In the event this information is protected by the Federal Confidentiality of Alcohol and Drug AbusePatient Records regulations: The Federal rules restrict any use of the information to criminally investigate or prosecute any alcohol or drug abuse patient.[facility] Encounter Details Date Type Department Care Team (Late st Contact Info) Description 06/11/2023 Patient Msg [facility] [address] [place], [place] [phone] Afua Rae, [facility] [address] [place], [place] [phone] 30-day Treatment Plan Review for DBT IOP Social History Tobacco Use Types Packs/Day Years Used Date Smoking Tobacco: Never Smokeless Tobacco: Never Alcohol Use Standard Drinks/Week Comments No 0 (1 standard drink = 0.6 oz pur e alcohol) PHQ-2 Answer Date Recorded PHQ-2 score 2 06/03/2023 Area Deprivation Index Answer Date Shivam rded National Score (1-100), lower number is lower ri sk 78 10/27/2022 State Score (1-10), lower number is lower risk 6 10/27/2022 Data from: https://www.neighborhoodatlas.medicine.[facility]/. Last address used for calculation [address] 10/27/2022 Sex and Gender Information [...] documented as of this encounter Care Teams System Support Administrator Relationship Specialty Start Date End Date Uriel Clements MD PCP - General Family Medicine 01/02/11 documented as of this encounter
--- OUTSIDE RECORDS SUMMARY | 2025-03-04 01:07 | XMS_ITS | Encounter Summary ---
Author Organization [facility] Address [address] [place] [address] Care Team Providers Care Relocation Commissioner Name Role Phone Uriel Clements MD Primary Care Provider [phone] Source Comments In the event this information is protected by the Federal Confidentiality of Alcohol and Drug AbusePatient Records regulations: The Federal rules restrict any use of the information to criminally investigate or prosecute any alcohol or drug abuse patient.[facility] Encounter Details Date Type Department Care Team (Late st Contact Info) Description 09/25/2024 Telephone [facility] [address] [place] [address] Rupinder Freeman DO [address] [place] [address] Social History Tobacco Use Types [...] is lower risk 6 08/31/2024 Data from: https://www.neighborhoodatlas.medicine.[facility]/. Last address used for calculation [address] 08/31/2024 Sex and Gender Information Value [...] documented as of this encounter Care Teams Relocation Commissioner Relationship Specialty Start Date End Date Uriel Clements MD PCP - General Family Medicine 01/02/11 documented as of this encounter
--- OUTSIDE RECORDS SUMMARY | 2025-03-04 01:07 | XMS_ITS | Encounter Summary ---
Author Organization [facility] Address [address] [place] [address] Care Team Providers Care Ve Teacher Name Role Phone Uriel Clements MD Primary Care Provider [phone] Source Comments In the event this information is protected by the Federal Confidentiality of Alcohol and Drug AbusePatient Records regulations: The Federal rules restrict any use of the information to criminally investigate or prosecute any alcohol or drug abuse patient.[facility] Encounter Details Date Type Department Care Team (Late st Contact Info) Description 06/28/2020 [facility] [address] [place] [address] Kiko Borrero MD [address] [place] [address] Social History Tobacco Use Types [...] N ot on file 04/21/2020 Data from: https://www.neighborhoodatlas.medicine.[facility].edu/. Last address used for calculation Not on [...] have Coronavirus / COVID-19? No / Unsure 06/28/2020 7:03 AM EST documented as of this encounter [...] documented as of this encounter Care Teams Ve Teacher Relationship Specialty Start Date End Date Uriel Clements MD PCP - General Family Medicine 01/02/11 documented as of this encounter
--- OUTSIDE RECORDS SUMMARY | 2025-03-04 01:07 | XMS_ITS | Patient Health Record ---
Author Organization [facility] Address [address] [place] [address] Care Team Providers Care Layout Artist Name Role Phone Leatha Weiner Primary Care Provider [phone] Samir Arambula Unavailable [phone] Jessica Chauhan Unavailable Reason For Referral No Information Medications Medication SIG (Take, Route, Fr equency, Duration) Notes Start Date End Date Status Ibuprofen 800 MG Tablet 1 tablet with fo od or milk as needed Orally Three times a day 07/30/2023 Active Ibuprofen 800 MG Tablet 1 tablet with fo od or milk as needed Orally Three times a day 06/10/2023 Active Problems Problem Type SNOMED Code ICD Code Onset Dates Problem Status W/U Status Risk Notes Problem Posttraumatic stress disorder (60165934) PTSD (post-traum atic stress disorder) (F43.10) Active confirmed Encounters Encounter Location Date Provider Diagnosis [facility] [address] [address] 04/05/2024 Samir Arambula [facility] [address] [place] [address] 01/23/2025 Samir Arambula [facility] [address] [place] [address] 01/31/2025 Jessica Morales Cracked tooth K03.81 ; Other dental procedure status Z98.818 ; Encounter for dental examination and cleaning with abnormal findings Z01.21 and Dental caries on pit and fissure surface penetrating into dentin K02.52 [facility] [address] [place] [address] 02/01/2025 Samir Arambula Cracked tooth K03.81 Assessments [...] Treatment Next Appt Details Provider Name:Jessica Arce Morales, 06/27/2025 02:00:00 PM, [address] [place], [address], Provider Name:Jessica Morales, 07/04/2025 02:00:00 PM, [address] [place], [address], Insurance Providers Payer Name Payer Address Payer Phone Subscriber Number Group Number Insured Name Patient Relationship to Insured Coverage Start Date Coverage End Date MEDICARE CGS [address] [place] [address] [id number] AMEYA MEZA Self - patient is the insured 3 B MEDICAID SEC TO [facility] [address] [place] [address] [id number] AMEYA MEZA Self - patient is the insured 3 DENT[place] [address] [place] [address] [id number] AMEYA MEZA Self - patient is the insured 3
--- OUTSIDE RECORDS SUMMARY | 2025-03-04 01:07 | XMS_ITS | Clinical Summary ---
Author Organization [facility] Address [address] [place] [address] Care Team Providers Care Retail Advertising Executive Name Role Phone Uriel Clements MD Primary Care Provider [phone] Allergies Active Allergy Reactions Criticality Noted [...] prn headache or nausea 3 Active rizatriptan SOFTWARE DEVELOPER MANAGER (Maxalt-SOFTWARE DEVELOPER MANAGER) 10 MG disintegrating tablet Take 10 mg [...] 4 Active ergocalciferol (Vitamin D2) 1.25 MG (95086 UT) capsule TAKE 1 CAPSULE BY MOUTH [...] 05/25/2024 9:59 AM EST Plan of Treatment Not on file Insurance MEDICARE MEDICAID [place] Care Teams Retail Advertising Executive Relationship Specialty Start Date End Date Uriel Clements MD [address] [place] [address] PCP - General Family Medicine 02/22/25
--- OUTSIDE RECORDS SUMMARY | 2025-03-04 01:07 | XMS_ITS | Clinical Summary ---
Author Organization [facility] Address [id number] [address] [place] [address] Care Team Providers Care District Plant Supervisor Name Role Phone Uriel Clements MD Primary Care Provider [phone] Allergies Active Allergy Reactions Criticality Noted Date [...] mcg/actuation inhaler Inhale 1-2 puffs. Active rizatriptan TECHNICIAN PLANT AND MAINTENANCE (MAXALT-TECHNICIAN PLANT AND MAINTENANCE) 10 mg disintegrating tablet Dissolve 1 tablet [...] file Insurance MEDICARE MEDICAID [place] Care Teams District Plant Supervisor Relationship Specialty Start Date End Date Uriel Clements MD PCP - General Family Medicine 10/01/21
--- OUTSIDE RECORDS SUMMARY | 2025-03-04 01:07 | XMS_ITS | Clinical Summary ---
Author Organization [facility] Address [address] [place] [address] Care Team Providers Care Engine Repairer Name Role Phone Unavailable Primary Care Provider [...] Payer (Ef fective 2006-Present) Name:Bishnu Coles Member ID:[id number] Relation to Subscriber:Self Name:Bishnu Coles Subscriber ID:[id number] Payer ID:[id number] Group ID:Not on file Type:Medicare Address: [facility] [place] [id number]
--- OUTSIDE RECORDS SUMMARY | 2025-03-04 01:07 | XMS_ITS | Encounter Summary ---
Author Organization [facility] Address [address] [place] [address] Care Team Providers Care Sleeping Room Cleaner Name Role Phone Uriel Clements MD Primary Care Provider [phone] Source Comments In the event this information is protected by the Federal Confidentiality of Alcohol and Drug AbusePatient Records regulations: The Federal rules restrict any use of the information to criminally investigate or prosecute any alcohol or drug abuse patient.[facility] Encounter Details Date Type Department Care Team (Late st Contact Info) Description 06/24/2023 Patient Msg [facility] [address] [place], [place] [address] Afua Rae, [facility] [address] [place], [place] [address] [facility] Discharge Instructions Social History Tobacco Use Types Packs/Day Years Used Date Smoking Tobacco: Never Smokeless Tobacco: Never Alcohol Use Standard Drinks/Week Comments No 0 (1 standard drink = 0.6 oz pur e alcohol) PHQ-2 Answer Date Recorded PHQ-2 score 4 06/24/2023 Area Deprivation Index Answer Date Shivam rded National Score (1-100), lower number is lower ri sk 78 10/27/2022 State Score (1-10), lower number is lower risk 6 10/27/2022 Data from: https://www.neighborhoodatlas.medicine.[facility]/. Last address used for calculation [address] 10/27/2022 Sex and Gender Information Value [...] documented as of this encounter Care Teams Sleeping Room Cleaner Relationship Specialty Start Date End Date Uriel Clements MD PCP - General Family Medicine 01/02/11 documented as of this encounter
--- OUTSIDE RECORDS SUMMARY | 2025-03-04 01:08 | XMS_ITS | CCD ---
Author Organization [facility] Care Team Providers Care Lamination Assembler Name Role Phone SIRISHATOMAS YOUNGY Unavailable Unavailable Uriel Nunez MD Primary Care Provider [phone] Uriel Nunez MD Primary Care Provider [phone] Uriel Nunez MD Primary Care Provider [phone] Uriel Nunez MD Primary Care Provider [phone] DR URIEL LAU Primary Care Unavailable KEVIN STERN Admitting Unavailable KEVIN STERN Attending Unavailable JARRED, KEVIN Consulting Unavailable JAY KATZ Consulting Unavailable OTF PARKS Consulting Unavailable ENRIQUE Huerta, DR COFFEY Primary Care Unavailable JASMINE, DR TYLER Norton Admitting Unavailable JASMINE, DR TYLER Norton Attending Unavailable JASMINE, DR TYLER Norton Consulting Unavailable YAMILETH LEE Consulting Unavailable ENRIQUE Huerta, DR COFFEY Primary Care Unavailable KEVIN STERN Admitting Unavailable KEVIN STERN Attending Unavailable KEVIN STERN Consulting Unavailable NADIRA MARTINI Consulting Unavailable ENRIQUE [...] ., DR COFFEY Primary Care Unavailable ENRIQUE Huerta, DR COFFEY Consulting Unavailable EMILY, DR MIRIAM Norton Consulting Unavailable ENRIQUE Huerta, DR COFFEY Primary Care Unavailable KEVIN STERN Admitting Unavailable KEVIN STERN Attending Unavailable KEVIN STERN Consulting Unavailable DOMINIC ROMERO Consulting Unavailable Uriel Nunez Primary Care Physician MD Uriel Nunez Primary Care Provider DO [facility] Provider NICK ROBERTSON Attending Unavailable URIEL NUNEZ Primary Care Unavailable GERALDINE ALONSO Attending Unavailable URIEL NUNEZ Primary Care Unavailable SUSANNAH GUDINO Referring Unavailable GERALDINE ALONSO Attending Unavailable URIEL NUNEZ Primary Care Unavailable Uriel Nunez MD Primary Care Provider MD Uriel Nunez Primary Care Provider MD Taiwo Trujillo Attending Provider [phone] DO Nirmal Pineda Emergency Provider MD Sherif Francis Admit Provider MD Sherif Francis Attending Provider AMEENA Alston Other Provider MD Reginald Tang Other Provider [phone] MD John Rodriguez Other Provider MD Martin [...] Attending Unavailable Nahed Doran Admitting Unavailable DO Virgil oDzier Attending Unavailable DO Virgil Dozier Attending Unavailable HOY, URIEL M Primary Care Unavailable ESTELA VARGAS Attending Unavailable ESTELA VARGAS Attending Unavailable ESTELA VARGAS Referring Unavailable HOY, URIEL M Primary Care Unavailable HOY, URIEL M Primary Care Unavailable NIENBERG, CHESTER M Attending Unavailable DANIA ERVIN Referring Unavailable HOY, URIEL M Primary Care Unavailable NIENBERG, CHESTER M Referring Unavailable HOY, URIEL M Primary Care Unavailable NIENBERGCHESTER M Referring Unavailable HOY, URIEL M Primary Care Unavailable Uriel Nunez MD Primary Care Provider [phone] HOY, URIEL M Primary Care Unavailable DETTLING, [...] Care Unavailable MYA TENA Referring Unavai lable MYA TENA Attending Unavai lable HOY, URIEL M Primary Care [...] DETTLING, JOSI Referring Unavailable MYA TENA Attending Unalalit patriciaearle ENRIQUE, URIEL M Primary Care Unavailable DETTLING, JOSI Referring Unavailable Uriel Nunez MD M Primary Care Provider [phone] KRZYSZTOF KRZYSZTOF E Attending Unavailable KRZYSZTOF, KRZYSZTOF E Admitting Unavailable HOY, URIEL M Primary Care Unavailable HOY, URIEL M Primary Care Unavailable KRZYSZTOF, KRZYSZTOF E Referring Unavailable HOY, URIEL M Primary Care Unavailable KRZYSZTOF, KRZYSZTOF E Referring Unavailable JEMIMA PURDY Attending Unavailable HOY, URIEL M Primary Care Unavailable JODI DENNEY Attending Unavailable HOY, URIEL M Primary Care Unavailable JODI DENNEY Referring Unavailable HOY, URIEL M Primary Care Unavailable SOBEIDA GALVAN Attending Unavailable HOY, URIEL M Primary Care Unavailable KRZYSZTOF, KRZYSZTOF E Attending Unavailable HOY, URIEL M Primary Care Unavailable SELF Referring Unavailable SOBEIDA GALVAN Attending Unavailable HOY, URIEL M Primary Care Unavailable SOBEIDA GALVAN Attending Unavailable HOY, URIEL M Primary Care Unavailable KANIKA READ Attending Unavailable HOY, URIEL M Primary Care Unavailable SELF Referring Unavailable SOBEIDA GALAVN Attending Unavailable HOY, URIEL M Primary Care Unavailable SELF Referring Unavailable SOBEIDA GALVAN Attending Unavailable JOHANN BORRERO Attending Unavailable HOY, URIEL M Primary Care Unavailable KEVIN STERN Referring Unavailable GOKUL JOYCE Admitting Unavailable HOY, URIEL M Primary Care Unavailable KRZYSZTOF, KRZYSZTOF E Referring Unavailable KRZYSZTOF, KRZYSZTOF E Attending Unavailable KRZYSZTOF, KRZYSZTOF E Admitting Unavailable HOY, URIEL M Primary Care Unavailable KRZYSZTOF, KRZYSZTOF E Referring Unavailable KRZYSZTOF, KRZYSZTOF E Attending Unavailable KRZYSZTOF, KRZYSZTOF E Admitting Unavailable HOY, URIEL M Primary Care Unavailable SELF Referring Unavailable RIDER SOBEIDA COX P Attending Unavailable HOY, URIEL M Primary Care Unavailable RIDER SOBEIDA COX Referring Unavailable KRZYSZTOF, KRZYSZTOF E Attending Unavailable HOY, URIEL M Primary Care Unavailable KRZYSZTOF, KRZYSZTOF E Referring Unavailable JEMIMA PURDY Attending Unavailable Cassandra, Taiwo Admitting Unavailab le Cassandra, Taiwo Attending Unavailab le Hoy, Uriel M Primary Care Unavailable HILLS, PAOLA D Referring Unavailable HILLS, PAOLA D Attending Unavailable HILLS, PAOLA D Referring Unavailable HILLS, PAOLA D Attending Unavailable HILLS, PAOLA D Referring Unavailable Allergies Allergy Classification Reported Allergen(s) Allergy Type Date of Onset Reaction(s) Facility (20 sources) Desvenlafaxine; Translations: [desvenlafaxine] Drug Allergy 01-13-20 14 Other: See Comments [facility] (20 sources) Ketorolac; Translations: [KETOROLAC TROMETHAMINE] Drug Allergy 09-15-19 17 Unknown [facility] (20 sources) levETIRAcetam; Translations: [levetiracetam] Drug Allergy 08-01-19 11 Other: See Comments, Unknown (qualifier value) [facility] (1 source) Acetaminophen / oxyCODONE Drug Allergy [facility] Repository (3 sources) Desvenlafaxine; Translations: [Pristiq] Drug Allergy [facility] (2 sources) Ketorolac Drug Allergy 09-28-19 21 [facility] (3 sources) levETIRAcetam; Translations: [Keppra] Drug Allergy [facility] Rep[facility] (1 source) Mazindol Drug Allergy [facility] (3 sources) Desvenlafaxine; Translations: [DESVENLAFAXINE SUCCINATE] Drug Allergy 10-02-19 22 [facility] Repository (11 sources) Desvenlafaxine Drug Allergy 01-13-20 14 Hallucinations , Unknown [facility] (11 sources) Ketorolac trometamol Propensity to adverse reactions 09-15-19 17 Unknown [facility] (11 sources) Levetiracetam Allergy to substance 09-20-19 09 Anxiety, Unknown [facility] (1 source) Desvenlafaxine Drug Allergy 01-02-20 [facility] Repository (1 source) levETIRAcetam Drug Allergy 01-02-20 [facility] Repository Medications Current Medications Medication Drug Class(es) Dates Sig (Normalized) Sig (Original) acetaminophen 325 mg oral tablet (17 sources) Start: 09-27-2024 take 2 tablets enteral route every four hours as needed acetaminophen (TYLENOL) 325 mg tablet 2 tablets by ORAL/FEEDING TUBE route every 4 hours as needed for pain or fever (specify temp.). 09/27/2024 Active Start: 09-21-2020 take 325-650 mg by m outh every four hours as needed acetaminophen (TYLENOL) 325 mg tablet Take 1-2 tablets by mouth every 4 hours as needed. 0 09/21/2020 Active Comment on above: Take 1-2 tablets by mouth every 4 hours as needed. Albuterol (20 sources) beta2-Adrenergic Agonist Start: 05-28-2017 [...] ins tructed every 2 hours as needed. Blood Pressure Monitor (7 sources) Start: 09-21-2024 End: 10-21-2024 Blood Pressure Monitor 1 eac h two times a day. 1 each 09/21/2024 10/21/2024 Active CPAP (20 sources) Start: 06-20-2020 CPAP Indications: Bipolar II disorder (HCC) , Psychophysiologic insomnia , HIMA (obstructive sleep apnea) Change the pressure of autoBipap with EPAP 5-15 mh2o and PS 4-8cmh2O. His DME company is [employer] , new mask to fit patient preference, [...] and PS 4-8cmh2O. His DME company is [employer] , new mask to fit patient preference, [...] and PS 4-8cmh2O. His DME company is [employer] , new mask to fit patient preference, [...] day(s), # 28 cap(s), Refills(s) 0, Pharmacy: [facility]/pharmacy #[id number], 178, cm, 12/01/23 19:37:00 EDT, [...] Start: 09-21-2020 take 1 capsule by mo [facility] every twelve hours as needed docusate sodium (COLACE) 100 mg capsule Take 1 capsule by mouth twice daily as needed for Constipation. 60 capsule 0 09/21/2020 Active Comment on above: Take 1 capsule by mo ut twice daily as needed for Constipation. ergocalciferol 1.25 mg oral capsule (11 sources) Provitamin D2 Compound Start: 09-29-19 ergocalciferol (Vitamin D2) 1.25 MG (94621 UT) capsule TAKE 1 CAPSULE BY MOUTH EVERY 7 DAYS FOR 28 DAYS 09/29/2023 Active fluticasone (20 sources) Corticosteroid Start: 09-20-19 take 1 spray(s) nasal route once daily fluticasone nasal one spray, Nasal, Daily, Refill(s) 0, in each nostril, Allergy symptoms Start Date: 09/19/22 Status: Ordered take 1 spray(s) nasal route twic e daily fluticasone (FLONASE) 50 mcg/actuation nasal spray Use 1 [place] in each nostril twice daily. Active fluticasone (Sai nase) 50 MCG/ACT nasal spray 1 spray in the morning and 1 spray in the evening. Active fluticasone prop ionate (FLONASE) 50 mcg/actuation nasal spray 1 spray by NOT APPLICABLE route in the morning and 1 spray before bedtime. Active Comment on above: Use 1 [place] in each nostril twice daily. ibuprofen 800 mg oral tablet (20 sources) Nonsteroidal Anti-inflammatory Drug Start: 06-10-2023 take 1 tablet by mouth every eight hours as needed ibuprofen (MOTRIN) 800 mg tablet Take 800 mg by mouth three times a day as needed. 06/10/2023 Active Start: 06-10-2023 take 1 tablet by gisella every eight hours as needed ibuprofen 800 [...] on above: Take 1 capsule by mo [facility] twice daily with meals. lacosamide 100 mg oral tablet (20 sources) Anti-epileptic Agent Start: 09-15-2024 End: 06-13-2025 take 1 tablet by mouth every twelve hours lacosamide (VIMPAT) 100 mg tab Indications: Partial epilepsy with impairment of consciousness, intractable (HCC) Take 1 tablet by mouth every 12 hours for 180 days. 60 tablet 5 12/15/2024 06/13/2025 Active Start: 09-19-2022 End: 04-09-2024 take 1 [...] THE SEROQUEL TO 100MG IN THE EVENING* methocarbamol 500 mg oral tablet (7 sources) Muscle Relaxant Start: 5 take 1 tablet by mouth every eight hours as needed methocarbamol (ROBAXIN) 500 mg tablet Take 1 tablet by mouth three times a day as needed first line for muscle spasm or jaw pain 15 tablet 09/27/2024 1:24 PM EDT 09/27/2024 Active nadolol 80 mg oral tablet (20 sources) beta-Adrenergic Jeremías Start: 3 End: 3 take 1 tablet by mouth once daily [...] (11 sources) Serotonin-3 Receptor Antagonist Start: 10-20-19 take [...] 30 DAYS 03/29/2024 Active polyethylene glycol 3350 45829 mg powder for oral solution (1 source) Osmotic Laxative Start: 09-26-19 Polyethylene Glycol 3350 (Healthylax) 17 gram Powder In Packet Active 17 GM PO Daily September 26, 2023 12:00am promethazine hydrochloride 25 [...] Agonist Start: 12-12-2022 End: 08-17-2024 rizatriptan (MAXALT NAIL FEEDER) 10 mg disintegrating tablet Indications: Chronic migraine [...] two hours as needed for headache rizatriptan (MAXALT-NAIL FEEDER) 10 mg disintegrating tablet Indications: Chronic migraine [...] evening. traMADol hydrochloride 50 mg oral tablet (3 sources) Opioid Agonist Start: 09-28-2024 End: 10-03-2024 take 1 tablet by mouth every eight hours as needed for pain traMADol (ULTRAM) 50 mg tablet Indications: Acute post-operative pain Take 1 tablet by mouth every 8 hours as needed for pain for up to 5 days. 15 tablet 09/28/2024 10/03/2024 Active Start: 04-22-2023 End: 04-25-2023 take 1 tablet [...] Nausea/Vomiting, # 12 tab(s), Refills(s) 0, Pharmacy: [facility]/pharmacy #[id number], 178, cm, 12/01/23 19:37:00 EDT, Height/Length Dosing, 97, kg, 12/01/23 19:37:00 EDT, Weight Dosing Start Date: 12/01/23 Status: Ordered Completed/Discontinued Medications Medication Drug Class(es) Dates Sig (Normalized) Sig (Original) amitriptyline hydrochloride 25 mg oral tablet (3 [...] gluconate 1.2 mg/ml mouthwash (3 sources) Start: 01-16-20 End: 02-10-20 Chlorhexidine Gluconate Discontinued 15 ML BUCCAL Bedtime January 15, 2017 12:00am February 09, 2017 11:23pm clonazePAM 2 mg oral tablet (20 sources) Benzodiazepine Start: 11-28-19 End: 06-13-19 take 1 tablet by mouth three times daily clonazePAM (KLONOPIN) 2 mg tablet Indications: Partial epilepsy with impairment of consciousness, intractable (HCC) Take 1 tablet by mouth three times a day for 90 days. 270 tablet 09/15/2024 12/15/2024 Discontinued Comment on above: Take 1 tablet by gieslla th three times daily for 180 days. Take one(1) tablet t hree times daily Take one(1) tablet t hree times daily. Take 1 tablet by gisella th three times a day for 180 days. Take one(1) tablet three times daily. cloNIDine hydrochloride 0.1 mg oral tablet (20 sources) Central alpha-2 Adrenergic Agonist Start: 05-25-19 End: 12-16-19 cloNIDine HCl (CATAPRES) 0.1 mg tablet Take 0.1 mg in the morning and 0.2 mg at night 90 tablet 3 09/21/2024 12/15/2024 Discontinued Start: 11-03-2023 End: 12-03-2023 take 1 [...] 09, 2017 12:00am May 28, 2017 2:33am 1 ml erenumab-aooe 140 mg/ml auto-injector (20 sources) Start: 02-27-2023 inject 140 mg by subcutaneous injection every 30 days erenumab (Aimovig) 140 MG/ML injection Inject 140 mg under the skin every 30 (thirty) days 02/27/2023 Active Start: 02-27-2023 End: 12-15-2024 inject 1 mL by subcutaneous injection every month AIMOVIG AUTOINJECTOR 140 mg/mL auto-injector Indications: Chronic migraine without aura without status migrainosus, not intractable INJECT 1ML SUBCUTANEOUSLY EVERY MONTH 1 mL 01/21/2024 12/15/2024 Discontinued Start: 01-29-2023 End: 02-28-2023 inject 1 mL [...] every month. famotidine 20 mg oral tablet (3 sources) [...] oral tablet (3 sources) Quinolone Antimicrobial Start: 2017 End: 2017 take 500 mg by mouth once daily Levofloxacin Discontinued 500 MG PO Daily May 28, 2017 1:00am July 11, 2017 2:49am 1 ml LORazepam 2 mg/ml injection (20 sources) Benzodiazepine Start: 2022 End: 2023 inject 1 dose by intramuscular injection once [...] STENOS SEA CAROTID ART] Onset: 2 Chronic Osteoarthritis (8 sources) Bilateral patellofemoral joint osteoarthritis; Translations: [Bilateral primary osteoarthritis of knee] 05-23-2024 Chronic Other acquired deformities (1 source) Spondylolysis; Translations: [Spondylolysis, lumbar region] 05-28-2024 Episodic Other aftercare (1 source) Other long wall mining machine helper (current) drug therapy; Translations: [[facility] S[facility] LIVING [...] source) Hypoxia; Translations: [Hypoxemia] 09-25-2023 Episodic Other lower respiratory disease (1 source) Hypoxemia; Translations: [Hypoxemia] 09-26-2023 Episodic Other nervous system disorders (1 source) Other chronic pain; Translations: [Other chronic pain] Onset: 4 Chronic Other nervous system disorders (1 source) Chronic pain; Translations: [Other chronic pain] 02-22-2024 Chronic Other nervous system disorders (3 sources) Paresthesia; Translations: [Paresthesia of skin] 09-07-2018 Episodic Other nervous system disorders (7 sources) Disorder of vagus nerve; Translations: [Disorders of vagus nerve] Onset: 5 09-25-2024 Episodic Other non-traumatic joint disorders (4 sources) [...] metabolic disorders (7 sources) Obesity 09-19-2022 Chronic Other upper respiratory disease (2 sources) Hoarse; Translations: [Dysphonia] 11-15-2024 Episodic Poisoning by other medications and drugs (4 sources) Poisoning by unspecified drugs, medicaments and biological substances, accidental (unintentional), initial encounter; Translations: [Overdose] 09-23-2023 Episodic Residual codes; unclassified (20 sources) Past history [...] Translations: [PRESENCE OTHER SPEC FUNC IMPLANTS] Onset: 2 Chronic Residual codes; unclassified (7 sources) Sleep apnea 09-19-2022 Chronic Comment on above: uses Bipap Residual codes; unclassified (1 source) Obstructive sleep apnea (adult) (pediatric); Translations: [Obstructive sleep apnea (adult)(pediatric)] 09-26-2023 Chronic Residual codes; unclassified (6 sources) [...] Family history of renal stone 03-04-2023 Episodic Residual codes; unclassified (1 source) Past history of procedure 11-15-2024 Episod ic Spondylosis; intervertebral disc disorders; other back problems [...] Social History. Suicide and intentional self-inflicted injury (14 sources) Suicide attempt ; Translations: [Suicidal thoughts] [...] lumbar region with discogenic back pain] Onset: Past or Other Problems Problem Classification Problem [...] of neck; Translations: [Cervicalgia] Onset: 12-28-2023 Episodic Unclassified (1 source) LOW BACK PAIN, UNSPECIFIED; Translations: [LOW BACK PAIN, UNSPECIFIED] Onset: 07-28-2022 Results Test Name Value Interpretation Reference Range Facility [facility] 11-14-2024 [facility] Telephone (NE50MN) -- SANKETJAYE ([id number]) 1980 M Date Time Provider Department 11/14/24 [facility] NE50MN During your visit today, we recorded the following information about you: Joann AssViviane small 11/14/2024 4:18 PM Signed General call : Full name of person calling: Jaye Harvey Relationship to patient: self Phone # : [phone] Reason for call: Patient states his voice has not recovered since VNS implanted 8 [address] Patient of Dr. South/Dayan Coyle RN 11/15/2024 8:[address] Borrero: 09/26/2024: Left replacement of Vagal nerve stimulator electrode Left voicemail for pt. To return call NICHOLAS RamirezYu 11/15/2024 12:19 PM Signed Jaye Harvey returned call to NICHOLAS Murphy. Patient awaiting call back at [phone] Geovanna Milian RN 11/15/2024 1:34 PM Signed Spoke with Jaye is having problems with maintaining a normal [...] workup of vocal issues. Order placed. Geovanna Milian RN 11/15/2024 2:02 PM Signed Spoke with Jaye would rather have VV with EMIGDIO has appointment line and will call and make appointment with ENT Geovanna Milian RN Allergies As of Date: 11/14/2024 Noted Allergy Reaction KEPPRA (LEVETIRACETAM) 07/31/2010 14 - Other: See Comments Comments: Increases his ADHD KETOROLAC TROMETHAMINE 09/14/2016 16 - Unknown Comments: unknown PRISTIQ (DESVENLAFAXINE) 01/12/2014 14 - Other: See Comments Comments: sz Date Reviewed: 10/13/2024 Reviewed by: Kanika Read APRN.DOOR AND ARRIVAL ATTENDANT - Fully Assessed Reason for Visit: General [Other] Cmt: VNS - Voice Has Not Recovered Primary Visit Diagnosis:Hoarseness of voice [R49.0] Other Visit Diagnosis: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 [Z96.89] Order(s):CONSULT TO ENT [9008] Order #: [id number]: 1 FUTURE Prescriptions as of 11/15/2024 - [...] hours for 90 days. - rizatriptan (MAXALT NAIL FEEDER) [address] 1 TABLET [...] and PS 4-8cmh2O. His DME company is [employer] mask to fit patient preference, ramp, humidification and unlimited supplies Please send us machine download in 1 month - CPAP Please send us machine download in 1 month - Cetirizine 10 mg cap Take 1-2 tablets by mouth as needed. - fluticasone (FLONASE) 50 mcg/actuation nasal spray Use 1 [place] in each nostril twice daily. - albuterol HFA (PROVENTIL HFA, VENTOLIN HFA) 90 mcg/actuation inhaler Inhale 1-2 Puffs as instructed as needed for Wheezing/Shortness of Breath. Problem List As Of Date 11/14/2024 Noted Resolved Epilepsy (HCC) [G40.909] 06/18/2004 Epilepsy with altered consciousness without int*07/31/2010 Depression with a (more content not included)... Normal [facility] CNOVon 10-13-2024 CNOV Office Visit (NE50MN ) -- JAYE HARVEY ([id number]) 1980 M Date Time Provider Department 10/13/24 9:30 AM KANIKA READ NE50MN During your visit today, we recorded the following information about you: Pulse Blood pressure Weight Height 98/minute 138/92 95.3 kg 1.778 m Kanika Read APRN.CNP 10/13/2024 12:47 PM Signed [facility] CHIEF COMPLAINT: seizures HISTORY OF PRESENT ILLNESS: Jaye Harvey is a 44 year old male with history of medically intractable epilepsy since age 5 s/p replacement of left VNS generator and re-tunneling of left vagal nerve electrode on 08/31/23, as well as 09/25/[address] Borrero who presents for VNS interrogation/adjustment. He is a patient of Dr. Lino South, last seen by myself on 11/03/2023, and as above, most recently by Dr. Borrero during admission to [facility] 09/25/2024 for VNS reimplantation. No seizures since last visit, last 2012. He remains on LCM 100 mg BID and KLP 2 mg TID. He notes anxiety recently, following w/ Dr. Rider. He is following w/ pain mgmt for chronic back pain, recently had L5-S1 ablation. Reports feeling better since procedure. Notes ongoing migraines, plans to discuss w/ DANIEL team. He works at [employer]. Drives. VNS returned to previous settings, patient tolerated well. AspireSR [id number] S/N: [id number] Implant Date: 09/26/2024 Lead impedence: [place], 2293 [...] Model Number SenTiva M1000 VNS Serial Number [id number] Date of Implantation August 31, 2023 Stimulation [...] or problems with the image (Done at [facility] and not available for review). His VNS is working well on his current evaluation today. He has a history of anxiety, obstructive sleep apnea, migraines and medically intractable left temporal lobe epilepsy, diagnosed in 2004 at [facility]. He did not want to pursue surgery at that time due to concerns of memory decline and had a VNS implanted. He has had multiple revisions, the last of which was in 01/2013 at [facility]. He feels that his VNS has stopped working because his auras have returned, but his battery is at 75%. His PCP Dr. Nunez who has been managing his epilepsy locally referred him back to [facility] to discuss further options. He is open to a repeat presurgical evaluation at this time. Last reported seizure was 2012. ? CURRENT OUTPATIENT MEDICATIONS: Current Outpatient Medications Medication Sig acetaminophen (TYLENOL) 325 mg tablet 2 tablets by ORAL/FEEDING TUBE route every 4 hours as needed for pain or fever (specify temp.). methocarbamol (ROBAXIN) 500 mg tablet Take 1 tablet by m (more content not included)... Normal [facility] 10-03-2024 [facility] Telephone (NEUSES) -- JAYE HARVEY ([id number]) 1980 M Date Time Provider Department 10/03/24 JOHANN BORRERO During your visit today, we recorded the following information about you: Amber Melchor 10/03/2024 11:34 AM Signed General call : Full name of person calling: Jaye Harvey Relationship to patient: self Phone # : [phone] Reason for call: Patient called and wants to speak with the office about the return to work letter. Letter does not have return date and needs mor Information about lifting. Patient of Dayan Barnard RN 10/03/2024 12:[address] Borrero: 09/26/2024: Left replacement of Vagal nerve stimulator electrode Spoke to pt. Who states his job is requesting a more specific work letter to include dates which I reviewed with Jaye. 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 Also requesting lifting restriction weight to be included in letter. Will draft letter to complete. NICHOLAS Ramirez Josie, RN 10/03/2024 1:25 PM Signed Letter completed via [employer], copy sent to pt. Via [employer] as requested. Dayan Knott RN Allergies As [...] hours for 90 days. - rizatriptan (MAXALT NAIL FEEDER) [address] 1 TABLET [...] and PS 4-8cmh2O. His DME company is [employer] mask to fit patient preference, ramp, humidification and unlimited supplies Please send us machine download in 1 month - CPAP Please send us machine download in 1 month - Cetirizine 10 mg cap Take 1-2 tablets by mouth as needed. - fluticasone (FLONASE) 50 mcg/actuation nasal spray Use 1 [place] in each nostril twice daily. - albuterol [...] partial seizures evolving to generalize*02/12/2021 Recurrent major dep (more content not included)... Normal [facility] 09-28-2024 CNPN Telephone (NE50MN) -- JAYE HARVEY ([id number]) 1980 M Date Time Provider Department 09/28/24 JOHANN BORRERO NE50MN During your visit today, we recorded the following information about you: Stephany Carbajal 09/28/2024 2:57 PM Signed Medication Concern Person Calling Jaye Morales [place] (home) Name of medication (ROBAXIN) Concern with medication need somethimh else for pain, robaxin is not helping. Patient of Dayan Moss RN 09/28/2024 3:17 PM Signed 09/25/2024-09/27/2024 Dr. Borrero VNS Pt. C/o pain 11/24 started night of 09/27 after hospital discharge [...] for up to 5 days. Authorizing Provider: AIDA ERVIN PA-C September 28, 2024 4:05 PM PDMP website checked and validated. All prescriptions have been APPROPRIATELY filled. No suspicious activity was identified. 09/28/2024 by Aida Ervin PA-C Small script of tramadol sent [...] hours for 90 days. - rizatriptan (MAXALT NAIL FEEDER) [address] 1 TABLET [...] and PS 4-8cmh2O. His DME company is [employer] mask to fit patient preference, ramp, humidification and unlimited supplies Please send us machine download in 1 month - CPAP Please send us machine download in 1 month - Cetirizine 10 mg cap Take 1-2 tablets by mouth as needed. - fluticasone (FLONASE) 50 mcg/actuation nasal spray Use 1 [place] in each nostril twice daily. - albuterol HFA (PROVENTIL HFA, VENTOLIN HFA) 90 mcg/actuation inhaler Inhale 1-2 Puffs as instructed as needed for Wheezing/Shortness of Breath. Problem List As Of Date 09/28/2024 Noted Resolved Epilepsy (HCC) [G40.909] 06/18/2004 Epilepsy with altered consciousness without int*07/31/2010 Depression with anxiety [F41.8] 01/12/2014 (more content not included)... Normal [facility] CASE MANAGEMon 09-27-2024 CASE MANAGEM HNO ID: [id number] Author: ERA GONZALEZ, ? Service: ? Author Type: ? Type: Care Mgt Progress Note Filed: 09/27/2024 11:16 Note Text: CARE MANAGEMENT PROGRESS NOTE SERVICE DATE: 09/27/2024 SERVICE TIME: 11:16 AM LOS: 2 days IMM Follow Up Copy Given: Yes Copy given to:: Patient Method: In Person SIGNATURE: Era Gonzalez CMA PATIENT NAME: Jaye Harvey DATE: September 27, 2024 TIME: 11:16 AM [facility] CNCOon 09-27-2024 CNCO Letter Text Letter Text Normal [facility] ANES POSTPROC EVALon 025 ANES POSTPROC EVAL HNO ID: [id number] Author: JULIETTE BRANTLEY MD Service: ? Author Type: Anesthesiologist Type: Anesthesia Postprocedure Evaluation Filed: 09/26/2024 15:56 Note Text: POST ANESTHESIA EVALUATION NOTE : 1980 Procedure Summary Date: 09/26/24 [address] An[address]hesia Start: 1234 Anesthesia Stop: 1542 Procedure: EXPLORATION AND REVISION VAGUS NERVE STIMULATOR GENERATOR, CONNECT TO MULTI ELECTRODE LEAD ARRAY (Left: Neck) Diagnosis: 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 (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 [Z96.89]) Surgeons: Johann Borrero MD Responsible Provider: Juliette Brantley MD Anesthesia [...] SIGNATURE: Juliette Brantley MD PATIENT NAME: Jaye Harvey DATE: September 26, 2024 TIME: 3:56 PM [id number] [facility] PRE-[facility]on 09-26-2024 ANES PRE-OP HNO ID: [id number] Author: JULIETTE BRANTLEY MD Service: ? Author Type: Anesthesiologist Type: Anesthesia Preprocedure Evaluation Filed: 09/26/2024 12:29 Note Text: ANESTHESIOLOGY DAY OF SURGERY NOTE : 1980 Procedure Information Date/Time: 09/26/24 1305 Procedure: EXPLORATION AND REVISION VAGUS NERVE STIMULATOR GENERATOR, CONNECT TO MULTI ELECTRODE LEAD ARRAY (Left: Neck) Location: MAIN OR10 / MAIN PAVILION Surgeons: Johann Borrero MD Estimated body mass index is 30.94 [...] 12 hours for 90 days. rizatriptan (MAXALT NAIL FEEDER) (more content not included)... Normal [facility] BRIEF OP NOTon 09-26-2024 BRIEF OP NOT HNO ID: [id number] Author: ERNIE TORRES MD Service: ? Author Type: Resident Type: Brief Op Note Filed: 09/26/2024 15:24 Note Text: BRIEF OPERATIVE / PROCEDURE NOTE LOG ID: [id number] SURGERY/PROCEDURE DATE: 09/26/2024 INCISION/PROCEDURE START TIME: 1:17 PM INCISION CLOSE/PROCEDURE END TIME: 3:14 PM SURGEON(S)/PROCEDURALIST(S ) AND HUMAN CAPITAL MANAGER(S): Surgeons and Role: * Johann Borrero MD - Primary * Ernie Torres MD [...] ONLY Implant/Device/Foreign Body Hardware/Device/Foreign Body SURGICAL PATHOLOGY Johann Borrero MD 09/26/2024 3:03 PM COMPLICATIONS: None IMPLANTS: Implant Name Type Inv. Item Serial No. Aircraft Charter Dispatcher Lot No. LRB No. Used Action GENERATOR VNS THERAPY ASPIRESR THK7MM NEUROSTIMULATOR 14CC 1 PIN LEAD - [id number] Neurostimulator GENERATOR VNS THERAPY ASPIRESR THK7MM NEUROSTIMULATOR 14CC 1 PIN LEAD [id number] [facility] Left 1 Implanted CLOSURE TECHNIQUE: Primary PRE-OP/PRE-PROCEDURE DIAGNOSIS: MRE POST-OP/POST-PROCEDURE DIAGNOSIS: Same as Preop Patient was accompanied to the next level of care by a licensed practitioner from the surgical team pending completion of this brief op note (or operative note) SIGNATURE: Ernie Torres MD PATIENT NAME: Jaye Harvey DATE: September 26, 2024 TIME: 3:23 PM Normal [facility] CNDSon 09-26-2024 CNDS HNO ID: [id number] Author: JOHANN BORRERO MD Service: Neurosurgery Author Type: Physician Videotape Sales Representative Type: Discharge Summary Filed: 10/03/2024 08:22 Note Text: -- Attestation signed by Johann Borrero MD at 10/03/2024 8:22 AM -- [facility] DISCHARGE SUMMARY Account #: Data Unavailable Admission Date: 09/25/2024 Date of Evaluation: 09/29/2024 Time of Evaluation: 2:40 PM Attending: Johann Steward MD. Location: [facility] 003/[id number] Discharge Date: 09/27/2024 Attending Physician: Johann Borrero MD PCP: Uriel Nunez MD [phone] Treatment Team: Primary Service: Adele Ochoa PA-C Primary Service: Ciaran Martinez PA-C Reason for Hospitalization: Epilepsy Final Diagnoses: [...] Course: The patient was transferred from another [facility] hospital to the [place]. After being optimized for surgery by the Neurosurgery and Epilepsy teams, Jaye Harvey was identified and brought into the Operating [...] hours for 90 days. Yes rizatriptan (MAXALT NAIL FEEDER) [address] 1 TABLET [...] (FLONASE) 50 mcg/actuation nasal spray Use 1 [place] in each nostril twice daily. Yes albuterol [...] 20 mg tablet TAKE 1 TABLET BY MO (more content not included)... Normal [facility] NURSING PROGon 09-26-2024 NURSING PROG HNO ID: [id number] Author: JONATHON ALTMAN RN Service: ? Author Type: Registered Nurse Type: Nursing Progress Note Filed: 09/26/2024 16:41 Note Text: Admission/Transfer Note PATIENT NAME: Jaye Harvey Patient Location: [place] [address]/60 Room: [place] [address] Patient transferred from PACU via bed in stable condition. Actions taken: Patient oriented to room, call light function, prescribed activities, Patient rights, and Quiet at night. This note was completed by: Jonathon Mike [facility] OPERATIVE NOon 09-26-2024 OPERATIVE NO HNO ID: [id number] Author: JOHANN BORRERO MD Service: Neurosurgery Author Type: Physician Type: Operative Report Filed: 09/26/2024 17:09 Note Text: OPERATIVE/PROCEDURE REPORT LOG ID: [id number] SURGERY/PROCEDURE DATE: 09/26/2024 INCISION/PROCEDURE START TIME: 1:17 PM INCISION CLOSE/PROCEDURE END TIME: 3:14 PM SURGEON(S)/PROCEDURALIST(S ) AND HUMAN CAPITAL MANAGER(S): Surgeons and Role: * Johann Borrero MD - Primary * Ernie Torres MD [...] Implant Name Type Inv. Item Serial No. Aircraft Charter Dispatcher Lot No. LRB No. Used Action GENERATOR VNS THERAPY ASPIRESR THK7MM NEUROSTIMULATOR 14CC 1 PIN LEAD - [id number] Neurostimulator GENERATOR VNS THERAPY ASPIRESR THK7MM NEUROSTIMULATOR 14CC 1 PIN LEAD [id number] [facility] Left 1 Implanted DRAINS: None COMPLICATIONS: None CLOSURE TECHNIQUE: Primary PARTICIPATION IN SURGERY/PROCEDURE: I/primary surgeon/proceduralist performed the procedure with assistance. SIGNATURE: Johann Borrero MD PATIENT NAME: Jaye Harvey DATE: September 26, 2024 TIME: 5:07 PM Normal [facility] Pathology biopsy report Luis (Tiss)on 09-26-2024 CASE REPORT Normal [facility] Comment on above: Order Comment: Aurora garcia Type: DEVICE SPECIMENOrdering Facility: [facility] Address: [address] [place] [address] Result Comment: Surg [facility] Pathology Report Case: [id number] Authorizing Provider: Johann Borrero MD Collected: 09/26/2024 03:03 PM Ordering Location: Admitting Received: 09/26/2024 03:17 PM Pathologist: Hanh Ventura MD Specimen: Hardware/Device/Foreign Body, EXPLANTED GENERATOR FOR ACCESSION ONLY Performed By: #### 6 6121-5 ####[facility] LABIA [id number] [place] [address] [place] CLINICAL HISTORY Normal [facility] Comment on above: Order Comment: Aurora garcia Type: DEVICE SPECIMENOrdering Facility: [facility] Address: [address] [place] [address] Result Comment: Pre- op diagnosis: 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 [Z96.89] Performed By: #### 6 6121-5 ####[facility] LABCLIA [id number] [address] FINAL DIAGNOSIS Normal [facility] Comment on above: Order Comment: Speci men Type: DEVICE SPECIMENOrdering Facility: [facility] Address: [address] [place] [address] Result Comment: A. H ardware, removal: - Pulse generator identified (gross examination only). CK/WE September 27, 2024 12:37 PM Gross examination performed at [facility], [address] [place] [address] at 1707 EDT Performed By: #### 6 6121-5 ####[facility] LABCLIA [id number] [address] OF [facility] FINAL PERFORMING LAB Normal [facility] Comment on above: Order Comment: Speci men Type: DEVICE SPECIMENOrdering Facility: [facility] Address: [address] [place] [address] Result Comment: Diag nostic interpretation performed at: [facility], [address] [place] [address] CLIA# [id number] Radio Station Engineer: Kendrick Salcedo MD Performed By: #### 6 6121-5 ####[facility] LABCLIA [id number] [address] OF [place] GROSS DESCRIPTION Normal [facility] Comment on above: Order Comment: Speci men Type: DEVICE SPECIMENOrdering Facility: [facility] Address: [address] [place] [address] Result Comment: A. H ardware/Device/Foreign Body Received fresh designated generator is a pulse generator with the inscription aspireSR model 106 [id number]. There is an attached lead wire that measures 31 cm in length. There is no tissue present. The specimen is reviewed by Dr. Ventura. WE September 27, 2024 12:37 PM Gross examination performed at [facility], [address] [place] [address] Performed By: #### 6 6121-5 ####[facility] LABCLIA [id number] [address] [place] XR CERVICAL 2V AP/LATon 09-15 XR CERVICAL 2V AP/LAT * * *Final Report* * [...] in expected position. No other significant abnormality. Shop Tech: PSCB Transcribe Date/Time: Sep 26 2024 4:33P Dictated by : SANFORD LANDA MD This examination was interpreted and the report reviewed and electronically signed by: SANFORD LANDA MD on Sep 26 2024 4:36PM EST [id number] Normal [facility] CBC W Auto Differential pane l (Bld)on 09-25-2024 Basophils (Bld) [#/Vol] 0.07 10*3/uL Normal <0.11 [facility] Comment on above: Order Comment: Speci men Type: BLOOD SPECIMENOrdering Facility: [facility] Address: [address] [place] [address] Performed By: #### 5 7021-8 ####[facility] LABCLIA [id number] [address] Basophils/100 WBC (Bld) 0.6 % Normal [facility] Comment on above: Order Comment: Speci men Type: BLOOD SPECIMENOrdering Facility: [facility] Address: [address] [place] [address] Performed By: #### 5 7021-8 ####[facility] LABCLIA [id number] [place] [address] [place] Differential cell count method Nom (Bld) Auto Normal [facility] Comment on above: Order Comment: Speci men Type: BLOOD SPECIMENOrdering Facility: [facility] Address: [address] [place] [address] Performed By: #### 5 7021-8 ####[facility] LABCLIA [id number] [place] [address] [place] Eosinophils (Bld) [#/Vol] 0.17 10*3/uL Normal <0.46 [facility] Comment on above: Order Comment: Speci men Type: BLOOD SPECIMENOrdering Facility: [facility] Address: [address] [place] [address] Performed By: #### 5 7021-8 ####[facility] LABIA [id number] [place] [address] [place] Eosinophils/100 WBC (Bld) 1.5 % Normal [facility] Comment on above: Order Comment: Speci men Type: BLOOD SPECIMENOrdering Facility: [facility] Address: [address] [place] [address] Performed By: #### 5 7021-8 ####[facility] LABCLIA [id number] [place] [address] [place] Erythrocyte distribution width (RBC) [Ratio] 12.7 % Normal 11.5-15.0 [facility] Comment on above: Order Comment: Speci men Type: BLOOD SPECIMENOrdering Facility: [facility] Address: [address] [place] [address] Performed By: #### 5 7021-8 ####[facility] LABCLIA [id number] [place] [address] [place] Hematocrit (Bld) [Volume fraction] 45.5 % Normal 39.0-51.0 [facility] Comment on above: Order Comment: Speci men Type: BLOOD SPECIMENOrdering Facility: [facility] Address: [address] [place] [address] Performed By: #### 5 7021-8 ####[facility] LABCLIA [id number] [place] [address] [place] Hemoglobin (Bld) [Mass/Vol] 15.6 g/dL Normal 13.0-17.0 [facility] Comment on above: Order Comment: Speci men Type: BLOOD SPECIMENOrdering Facility: [facility] Address: [address] [place] [address] Performed By: #### 5 7021-8 ####[facility] LABCLIA [id number] [place] [address] [place] Immature granulocytes (Bld) [#/Vol] 0.06 10*3/uL Normal <0.10 [facility] Comment on above: Order Comment: Speci men Type: BLOOD SPECIMENOrdering Facility: [facility] Address: [address] [place] [address] Performed By: #### 5 7021-8 ####[facility] LABIA [id number] [place] [address] [place] Immature granulocytes/100 WBC (Bld) 0.5 % Normal [facility] Comment on above: Order Comment: Speci men Type: BLOOD SPECIMENOrdering Facility: [facility] Address: [address] [place] [address] Performed By: #### 5 7021-8 ####[facility] LABCLIA [id number] [place] [address] [place] Lymphocytes (Bld) [#/Vol] 2.86 10*3/uL Normal 1.00-4.00 [facility] Comment on above: Order Comment: Speci men Type: BLOOD SPECIMENOrdering Facility: [facility] Address: [address] [place] [address] Performed By: #### 5 7021-8 ####[facility] LABCLIA [id number] [place] [address] [place] Lymphocytes/100 WBC (Bld) 24.7 % Normal [facility] Comment on above: Order Comment: Speci men Type: BLOOD SPECIMENOrdering Facility: [facility] Address: [address] [place] [address] Performed By: #### 5 7021-8 ####[facility] LABCLIA [id number] [place] [address] [place] MCH (RBC) [Entitic mass] 28.6 pg Normal 26.0-34.0 [facility] Comment on above: Order Comment: Speci men Type: BLOOD SPECIMENOrdering Facility: [facility] Address: [address] [place] [address] Performed By: #### 5 7021-8 ####[facility] LABCLIA [id number] [place] [address] [place] MCHC (RBC) [Mass/Vol] 34.3 g/dL Normal 30.5-36.0 [facility] Comment on above: Order Comment: Speci men Type: BLOOD SPECIMENOrdering Facility: [facility] Address: [address] [place] [address] Performed By: #### 5 7021-8 ####[facility] LABCLIA [id number] [place] [id number] [place] MCV (RBC) [Entitic vol] 83.5 fL Normal 80.0-100.0 [facility] Comment on above: Order Comment: Speci men Type: BLOOD SPECIMENOrdering Facility: [facility] Address: [address] [place] [address] Performed By: #### 5 7021-8 ####[facility] LABCLIA [id number] [facility] [address] [place] [address] [place] Monocytes (Bld) [#/Vol] 0.84 10*3/uL Normal <0.87 [facility] Comment on above: Order Comment: Speci men Type: BLOOD SPECIMENOrdering Facility: [facility] Address: [address] [place] [address] Performed By: #### 5 7021-8 ####[facility] LABCLIA [id number] [facility] [address] [place] [address] [place] Monocytes/100 WBC (Bld) 7.3 % Normal [facility] Comment on above: Order Comment: Speci men Type: BLOOD SPECIMENOrdering Facility: [facility] Address: [address] [place] [address] Performed By: #### 5 7021-8 ####[facility] LABCLIA [id number] [address], [place] [address] [place] Neutrophils (Bld) [#/Vol] 7.56 10*3/uL High 1.45-7.50 [facility] Comment on above: Order Comment: Speci men Type: BLOOD SPECIMENOrdering Facility: [facility] Address: [address] [place] [address] Performed By: #### 5 7021-8 ####[facility] LABCLIA [id number] [address], [facility] [place] Neutrophils/100 WBC (Bld) 65.4 % Normal [facility] Comment on above: Order Comment: Speci men Type: BLOOD SPECIMENOrdering Facility: [facility] Address: [address] [place] [address] Performed By: #### 5 7021-8 ####[facility] LABCLIA [id number] [facility] [address] [place] [address] [place] Nucleated RBC (Bld) [#/Vol] 10*3/uL Normal <0.01 [facility] Comment on above: Order Comment: Speci men Type: BLOOD SPECIMENOrdering Facility: [facility] Address: [address] [place] [address] Performed By: #### 5 7021-8 ####[facility] LABIA [id number] [place] [id number] [place] Nucleated RBC/100 WBC (Bld) [Ratio] 0.0 /100 WBC Normal [facility] Comment on above: Order Comment: Speci men Type: BLOOD SPECIMENOrdering Facility: [facility] Address: [address] [place] [address] Performed By: #### 5 7021-8 ####[facility] LABIA [id number] [place] [address] [place] Platelet mean volume (Bld) [Entitic vol] 9.1 fL Normal 9.0-12.7 [facility] Comment on above: Order Comment: Speci men Type: BLOOD SPECIMENOrdering Facility: [facility] Address: [address] [place] [address] Performed By: #### 5 7021-8 ####[facility] LABIA [id number] [place] [address] [place] Platelets (Bld) [#/Vol] 326 10*3/uL Normal 150-400 [facility] Comment on above: Order Comment: Speci men Type: BLOOD SPECIMENOrdering Facility: [facility] Address: [address] [place] [address] Performed By: #### 5 7021-8 ####[facility] LABIA [id number] [place] [id number] [place] RBC (Bld) [#/Vol] 5.45 10*6/uL Normal 4.20-6.00 [facility] Comment on above: Order Comment: Speci men Type: BLOOD SPECIMENOrdering Facility: [facility] Address: [address] [place] [address] Performed By: #### 5 7021-8 ####[facility] LABIA [id number] [place] [id number] [place] WBC (Bld) [#/Vol] 11.56 10*3/uL High 3.70-11.00 [facility] Comment on above: Order Comment: Speci men Type: BLOOD SPECIMENOrdering Facility: [facility] Address: [address] [place] [address] Performed By: #### 5 7021-8 ####[facility] LABCLIA [id number] [place] [id number] [facility] Leela 09-25-2024 CNPN Telephone (NE50MN) -- AJYE HARVEY ([id number]) 1980 M Date Time Provider Department 09/25/24 DARRYL BETH NE50MN During your visit today, we recorded the following information about you: Darryl Beth DO 09/25/2024 2:43 AM Signed EPILEPSY PLAN OF CARE NOTE Patient: Jaye Morales Sanket Date: September 25, 2024 Time: 2:[address] South- last seen by Donald LINDQUIST on 11/03/2023. [...] he has no way to come to [facility] [place] and states that if he goes to local hospital they will just tell him to follow up outpatient . Discussed he should go to the nearest ED and instructed him to have them call to arrange for transfer for admission. Discussed with electronic instrument trades worker staff, Dr. Ansari. Darryl Beth DO Department of Neurology, PGY5 Epilepsy Fellow Phone: [phone], call center rn pager: [phone] Allergies As of Date: 09/25/2024 Noted Allergy Reaction KEPPRA (LEVETIRACETAM) 07/31/2010 14 - Other: See Comments Comments: Increases his ADHD KETOROLAC TROMETHAMINE 09/14/2016 16 - Unknown Comments: unknown PRISTIQ (DESVENLAFAXINE) 01/12/2014 14 - Other: See Comments Comments: sz Date Reviewed: 09/19/2024 Reviewed by: Stacie Mckeon RN - Fully Assessed Prescriptions as of 09/25/2024 [...] hours for 90 days. - rizatriptan (MAXALT NAIL FEEDER) [address] 1 TABLET [...] and PS 4-8cmh2O. His DME company is [employer] , new mask to fit patient preference, [...] (FLONASE) 50 mcg/actuation nasal spray Use 1 [place] in each nostril twice daily. - albuterol HFA (PROVENTIL HFA, VENTOLIN HFA) 90 mcg/actuation inhaler Inhale 1-2 Puffs as instructed as needed for Wheezing/Shortness of Breath. Problem List As Of Date 09/25/2024 Noted Resolved Epilepsy (HCC) [G40.909] 06/18/2004 Epilepsy with altered consciousness without int*07/31/2010 Depression with anxiety [F41.8] 01/12/2014 Respiratory failure requiring intubation (HCC) *04/07/2016 Acute respiratory failure (HCC) [J96.00] 04/07/2016 03/26/2019 Hx of suicide attempt [Z91.51] 04/07/2016 Bipolar II disorder (HCC) [F31.81] 07/02/2016 Obesity, Class I, BMI 30-34.9 [E66.811] 11/24/2017 Partial epilepsy with impairment of consciousne*01/12/2018 Gastroesophageal reflux disease without (more content not included)... Normal [facility] CONSULTon 09-25-2024 CONSULT HNO ID: [id number] Author: LEEROY LEMUS DO Service: Neurology Adult Epilepsy Author Type: Physician Type: Consults Filed: 09/26/2024 17:00 Note Text: NEURO EPILEPSY CONSULT NOTE SERVICE DATE: 09/25/2024 SERVICE TIME: 2:55 PM ATTENDING PHYSICIAN: Johann Borrero MD HOSPITAL UNIT: H63 SERVICE: Neurosurgery Subjective CHIEF COMPLAINT: [...] last seizure was in 2012. Follows with [facility] epilepsy last seen 10/2023 virtually. Was due [...] bites Triggers: stress PREVIOUS EVALUATIONS: Video EEG, CC, 09/20/2020: Mr. Jaye Harvey is a 39 year oldA rightA handed male with PMH of anxiety, HIAM, Bipolar II , migraines and left temporal lobe epilepsy (diagnosed in 2004-A He did not want to pursue surgery at that time due to concerns of memory decline and had a VNS implanted). Established care of Dr. South, he was last [...] No - Significant head trauma No - LATHE SET UP OPERATOR Infection No - Other pre-existing LATHE SET UP OPERATOR disease (example - tumor, vascular disease) No [...] Dilantin- reported as ineffective Phenobarbital Depakote Lyrica Keppra- Increases ADHD Tegretol Current Facility-Administered Med (more content not included)... Normal [facility] Comprehensive metabolic 2000 panelon 09-25-2024 Albumin [Mass/Vol] 4.4 g/dL Normal 3.9-4.9 [facility] Comment on above: Order Comment: Aurora garcia Type: BLOOD SPECIMEN Ordering Facility: [facility] Address: [address] [place] [address] Performed By: #### L ACOS #### [facility] CLIA [id number] [address] [place] [address] [place] ALP [Catalytic activity/Vol] 66 U/L Normal 38-113 [facility] Comment on above: Order Comment: Aurora garcia Type: BLOOD SPECIMEN Ordering Facility: [facility] Address: [address] [place] [address] Performed By: #### L ACOS #### [facility] CLIA [id number] [address] [place] [address] [place] ALT [Catalytic activity/Vol] 30 U/L Normal 10-54 [facility] Comment on above: Order Comment: Aurora garcia Type: BLOOD SPECIMEN Ordering Facility: [facility] Address: [address] [place] [address] Performed By: #### L ACOS #### [facility] CLIA [id number] [address] [place] [address] [place] Anion gap [Moles/Vol] 13 mmol/L Normal 8-15 [facility] Comment on above: Order Comment: Speci men Type: BLOOD SPECIMEN Ordering Facility: [facility] Address: [address] [place] [address] Performed By: #### L ACOS #### [facility] CLIA [id number] [address] [place] [address] [place] AST [Catalytic activity/Vol] 20 U/L Normal 14-40 [facility] Comment on above: Order Comment: Speci men Type: BLOOD SPECIMEN Ordering Facility: [facility] Address: [address] [place] [address] Performed By: #### L ACOS #### [facility] CLIA [id number] [address] [place] [address] [place] Bilirubin [Mass/Vol] 1.0 mg/dL Normal 0.2-1.3 [facility] Comment on above: Order Comment: Speci men Type: BLOOD SPECIMEN Ordering Facility: [facility] Address: [address] [place] [address] Performed By: #### L ACOS #### [facility] CLIA [id number] [address] [place] [address] [place] Calcium [Mass/Vol] 9.7 mg/dL Normal 8.5-10.2 [facility] Comment on above: Order Comment: Speci men Type: BLOOD SPECIMEN Ordering Facility: [facility] Address: [address] [place] [address] Performed By: #### L ACOS #### [facility] CLIA [id number] [address] [place] [address] [place] Chloride [Moles/Vol] 99 mmol/L Normal 98-107 [facility] Comment on above: Order Comment: Speci men Type: BLOOD SPECIMEN Ordering Facility: [facility] Address: [address] [place] [address] Performed By: #### L ACOS #### [facility] CLIA [id number] [address] [place] [address] [place] CO2 [Moles/Vol] 24 mmol/L Normal 22-30 [facility] Comment on above: Order Comment: Speci men Type: BLOOD SPECIMEN Ordering Facility: [facility] Address: [address] [place] [address] Performed By: #### L ACOS #### [facility] CLIA [id number] [address] [place] [address] [place] Creatinine [Mass/Vol] 0.69 mg/dL Low 0.73-1.22 [facility] Comment on above: Order Comment: Speci men Type: BLOOD SPECIMEN Ordering Facility: [facility] Address: [address] [place] [address] Performed By: #### L ACOS #### [facility] CLIA [id number] [address] [place] [address] [place] Creatinine and Glomerular filtration rate.predicted panel (S/P/Bld) 119 mL/min/1.73m??? Normal >=60 [facility] Comment on above: Order Comment: Speci men Type: BLOOD SPECIMEN Ordering Facility: [facility] Address: [address] [place] [address] Result Comment: Mandie mated Glomerular Filtration Rate [...] accurately reflect actual GFR. Performed By: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 Normal 31.4-36.0 [facility] Comment on above: Performed By: #### 2 107540 #### [facility] [address] [place] [address] MCV (RBC) [Entitic vol] 84.9 fL Normal 80.0-100.0 [facility] Comment on above: Performed By: #### 2 003509 #### [facility] [address] [place] [address] Monocytes (Bld) [#/Vol] 0.6 E9/L Normal 0.2-1.0 [facility] Comment on above: Performed By: #### 2 959886 #### [facility] [address] [place] [address] Neutrophils (Bld) [#/Vol] 5.5 E9/L Normal 2.0-7.5 [facility] Comment on above: Performed By: #### 2 685319 #### [facility] [address] [place] [address] Neutrophils/100 WBC (Bld) 61.6 % Normal 36.0-75.0 [facility] Comment on above: Performed By: #### 2 809290 #### [facility] [address] [place] [address] Platelet 320.0 E9/L Normal 150.0-500. 0 [facility] Comment on above: Performed By: #### 2 815666 #### [facility] [address] [place] [address] Platelet mean volume (Bld) [Entitic vol] 7.1 fL Normal 6.4-10.8 [facility] Comment on above: Performed By: #### 2 844707 #### [facility] [address] [place] [address] RBC (Bld) [#/Vol] 5.4 E12/L Normal 4.3-5.9 [facility] Comment on above: Performed By: #### 2 603825 #### [facility] [address] [place] [address] WBC corrected for nucl RBC Auto (Bld) [#/Vol] 8.9 E9/L Normal 4.0-11.0 [facility] Comment on above: Performed By: #### 2 894097 #### [facility] [address] [place] [address] [place] [address] CHEMISTRYOrdered By: SYSTEM SYSTEM on 12-01-2023 Albumin [...] - 20 Remisol Chem ED Note-Physicianon 12-01-19 ED Note-Physician ED Note-Physician Basic Information Time [...] and Complexity of Problems Differential Diagnosis: [] [facility] Data External documents reviewed: N/A My [...] day(s), # 28 cap(s), Refills(s) 0, Pharmacy: [facility] #[id number], 178, cm, 12/01/23 19:37:00 EDT, [...] Nausea/Vomiting, # 12 tab(s), Refills(s) 0, Pharmacy: [facility]/pharmacy #[id number], 178, cm, 12/01/23 19:37:00 EDT, [...] Information Uriel Nunez In 3 days [address] [facility] [place] [address] [place] [address]- Business (1) Additional Instructions: Patient Education Abdominal [...] Tachycardia Tachycar (more content not included)... Normal [facility] Comment on above: Result Comment: [...] 12-01-2023 Albumin [Mass/Vol] 4.6 g/dL Normal 3.3-5.0 [facility] Comment on above: Performed By: #### 2 [id number] #### [facility] [address] [place] [address] Albumin/Globulin (S) [Mass conc ratio] 1.7 Normal 1.1-2.2 [facility] Comment on above: Performed By: #### 2 427018 #### [facility] [address] [place] [address] ALP [Catalytic activity/Vol] 55 Int._Unit/L Normal 21-98 [facility] Comment on above: Performed By: #### 2 196193 #### [facility] [address] [place] [address] ALT No additional P-5'-P [Catalytic activity/Vol] 22 Int._Unit/L Normal 6-46 [facility] Comment on above: Performed By: #### 2 487156 #### [facility] [address] [place] [address] AST [Catalytic activity/Vol] 15 Int._Unit/L Normal 5-43 [facility] Comment on above: Performed By: #### 2 764984 #### [facility] [address] [place] [address] Bilirubin [Mass/Vol] 0.5 mg/dL Normal 0.0-1.1 [facility] Comment on above: Performed By: #### 2 892866 #### [facility] [address] [place] [address] Bilirubin.direct [Mass/Vol] 0.1 mg/dL Normal 0.0-0.4 [facility] Comment on above: Performed By: #### 2 313168 #### [facility] [address] [place] [address] Bilirubin.indirect [Mass or moles/Vol] 0.4 mg/dL Normal 0.1-0.9 [facility] Comment on above: Performed By: #### 2 709219 #### [facility] [address] [place] [address] Globulin (S) [Mass/Vol] 2.7 g/dL Normal 1.4-4.0 [facility] Comment on above: Performed By: #### 2 687702 #### [facility] [address] [place] [address] Protein [Mass/Vol] 7.3 g/dL Normal 6.0-7.8 [facility] Comment on above: Performed By: #### 2 197189 #### [facility] [address] [place] [address] Lipase Levelon 12-01-2023 Lipase [Catalytic activity/Vol] 45 U/L Normal 13-58 [facility] Comment on above: Performed By: #### 2 927431 #### [facility] [address] [place] [address] UA with Cult Rflxon 12-01-19 Bilirubin Ql (U) Negative Normal Negative [facility] Comment on above: Performed By: #### 4 [id number] #### [facility] [address] [place] [address] Clarity (U) Clear Normal Clear [facility] Comment on above: Performed By: #### 4 [id number] #### [facility] [address] [place] [address] Color (U) Yellow Normal Yellow [facility] Comment on above: Result Comment: Micr oscopic readings are only performed on those samples that meet specific criteria set forth by [facility]. Performed By: #### 4 [id number] #### [facility] [address] [place] [address] Glucose Ql (U) Negative Normal Negative [facility] Comment on above: Performed By: #### 4 [id number] #### [facility] [address] [place] [address] Hemoglobin Auto test strip (U) [Mass/Vol] Negative Normal Negative [facility] Comment on above: Performed By: #### 4 [id number] #### [facility] [address] [place] [address] Ketones Auto test strip Ql (U) Negative Normal Negative [facility] Comment on above: Performed By: #### 4 [id number] #### [facility] [address] [place] [address] Leukocyte esterase Auto test strip Ql (U) Negative Normal Negative [facility] Comment on above: Performed By: #### 4 [id number] #### [facility] [address] [place] [address] Nitrite Auto test strip Ql (U) Negative Normal Negative [facility] Comment on above: Performed By: #### 4 [id number] #### [facility] [address] [place] [address] pH (U) 5.5 [pH] Invalid Interpretation Code 5.0-9.0 [facility] Comment on above: Performed By: #### 4 [id number] #### [facility] [address] [place] [address] Protein Ql (U) Trace Abnormal Negative [facility] Comment on above: Performed By: #### 4 [id number] #### [facility] [address] [place] [address] Specific gravity (U) [Rel density] 1.028 Invalid Interpretation Code 1.005-1.03 0 [facility] Comment on above: Performed By: #### 4 [id number] #### [facility] [address] [place] [address] Urobilinogen (U) [Mass/Vol] Negative Normal Negative [facility] Comment on above: Performed By: #### 4 [id number] #### [facility] [address] [place] [address] Type of Urine collection method Clean Catch Normal [facility] Comment on above: Performed By: #### 4 [id number] #### [facility] [address] [place] [address] URINALYSISOrdered By: SYSTEM SYSTEM on 12-01-2023 Bilirubin Ql (U) Negative Normal Negativemg /dL [facility] UA Auto SS Clarity (U) Clear (12/01/23 8:24 PM) Normal Clear [facility] UA Auto SS Color (U) Yellow 1 (12/01/23 8:24 PM) Normal Yellow [facility] UA Auto SS Comment on above: Interpretive Data: M icroscopic readings are only performed on those samples that meet specific criteria set forth by [facility]. Glucose Ql (U) Negative Normal [...] Urobilinogen (U) [Mass/Vol] Negative Normal Negativemg /dL FT UA Auto SS URINALYSISOrdered By: Sepideh Tucker on 12-01-2023 UA Spec Desc Clean Catch (12/01/23 8:24 PM) Normal FT UA Auto SS eGFRon 12-01-2023 eGFR 119 mL/min/1.73 m2 Normal >=59 [facility] Comment on above: Order Comment: Order added by Discern Expert. Performed By: #### 1 [id number] #### [facility] [address] [place] [address] [facility] JAYE HARVEY ([id number]) 1980 M Date Time Provider Department 11/23/23 JESSENIA COUCH During your visit today, we recorded the following information about you: Jessenia Couch LISW 11/23/2023 12:35 PM Signed Please see encounters from this screenplay writer on 10/13/23. HELMINTHOLOGIST called patient to check in and see if he has been able to find a new therapist with his crisis team and continue with group therapy through [facility]. Patient reported with how busy work has [...] needs at this time. Amenable to this screenplay writer calling in a few weeks to check in. Jessenia CouchALVIN 12/17/2023 1:52 PM Signed HELMINTHOLOGIST called patient to check in and see if he has found a therapist. M and encouraged a return call. Jessenia CouchALVIN 12/17/2023 3:45 PM Signed Patient reported he is still able to participate in group therapy at [facility] even if he does not have a therapist through them. He has not yet found a therapist. He stated he and the crisis organization working on getting him another therapist have encountered some barriers as he needs a provider who can accept Medicare. Pt said he is doing well, attending group, and also sees Dr. Rider next week. Pt was amenable to screenplay writer doing some research on Medicare therapists and pt said he would be willing to come to [facility] if necessary for appointments. HELMINTHOLOGIST found the following around [place] who report accepting Medicare on their website: https://www.[employer]/us/therapists/mark asenciorucsic-feojlzx-is/582021 https://www.[employer]/us/therapists/daysi solsiveudfa-gtmg-jmngpwo-il/ 913 https://www.[employer]/us/therapists/senthil farrellnfgqgwo-hsny-zbbosjf-il/711 HELMINTHOLOGIST sent pt a Better Weekdays message with the above information. Allergies As of Date: 11/23/2023 Noted Allergy Reaction KEPPRA (LEVETIRACETAM) 07/31/2010 14 - Other: See Comments Comments: Increases his ADHD KETOROLAC TROMETHAMINE 09/14/2016 16 - Unknown Comments: unknown PRISTIQ (DESVENLAFAXINE) 01/12/2014 14 - Other: See Comments Comments: sz Date Reviewed: 11/03/2023 Reviewed by: Kanika Reda APRN.DOOR AND ARRIVAL ATTENDANT - Fully Assessed Reason for Visit: Social Work Services [507] Prescriptions as of 12/17/2023 - cloNIDine HCl (CATAPRES) 0.1 mg tablet TAKE 1 TABLET BY MOUTH TWICE A DAY - rizatriptan (MAXALT-NAIL FEEDER) 10 mg disintegrating tablet Take 1 tablet [...] and PS 4-8cmh2O. His DME company is [employer] , new mask to fit patient preference, [...] (FLONASE) 50 mcg/actuation nasal spray Use 1 [place] in each nostril twice daily. - albuterol HFA (PROVENTIL HFA, VENTOLIN HFA) 90 mcg/actuation inhaler Inhale 1-2 Puffs as instructed as needed for Wheezing/Shortness of Breath. Problem List As Of Date 11/23/2023 Noted Resolved Epilepsy (HCC) [G40.909] 06/18/2004 Epilepsy wit (more content not included)... Normal [facility] Basophils Auto (Bld) [#/Vol] Ordered By: Mary Calhoun on 09-26-2023 Basophils (Bld) [#/Vol] 0.1 10*3/uL 0.0-0.2 [facility] Basophils/100 WBC Auto (Bld) Ordered By: Mary Calhoun on 09-26-2023 Basophils/100 WBC (Bld) 0.8 % . [facility] Calcium [Mass/volume] in Ser um or PlasmaOrdered By: Mary Calhoun on 09-26-2023 Calcium [Mass/Vol] 9.2 mg/dL 8.6-10.3 [facility] Carbon dioxide, total [Moles /volume] in Serum or PlasmaOrdered By: Mary Calhoun on 09-26-2023 CO2 [Moles/Vol] 27.1 mmol/L 21.0-31.0 [facility] Chloride [Moles/volume] in S jaspreet or PlasmaOrdered By: Mary Calhoun on 09-26-2023 Chloride [Moles/Vol] 103 mmol/L 98-107 [facility] Creatinine [Mass/volume] in Serum or PlasmaOrdered By: Mary Calhoun on 09-26-2023 Creatinine [Mass/Vol] 0.67 mg/dL 0.70-1.30 [facility] Eosinophils Auto (Bld) [#/Vo l]Ordered By: Mary Calhoun on 09-26-2023 Eosinophils (Bld) [#/Vol] 0.3 10*3/uL 0.0-0.45 [facility] Eosinophils/100 WBC Auto (Bl d)Ordered By: Mary Calhoun on 09-26-2023 Eosinophils/100 WBC (Bld) 3.2 % . [facility] Erythrocyte distribution wid th Auto (RBC) [Ratio]Ordered By: Mary Calhoun on 09-26-2023 Erythrocyte distribution width (RBC) [Ratio] 13.4 % 12.0-14.8 [facility] Glucose [Mass/volume] in Ser um or PlasmaOrdered By: Mary Calhoun on 09-26-2023 Glucose [Mass/Vol] 109 mg/dL 70-100 [facility] Comment on above: ADA recommended refe rence rangeRandom Glucose Reference Range is dependent on time and content of last meal. Glucose of more than 200 mg/dL in a nonstressed, ambulatory subject supports the diagnosis of Diabetes Mellitus. Hematocrit Auto (Bld) [Volum e fraction]Ordered By: Mary Calhoun on 09-26-2023 Hematocrit (Bld) [Volume fraction] 43.7 % 38.8-50.0 [facility] Hemoglobin [Mass/volume] in BloodOrdered By: Mary Calhoun on 09-26-2023 Hemoglobin (Bld) [Mass/Vol] 14.9 g/dL 13.0-17.0 [facility] Leukocytes [#/volume] correc lucio for nucleated erythrocytes in Blood by Automated counOrdered By: Mary Calhoun on 09-26-2023 WBC corrected for nucl RBC Auto (Bld) [#/Vol] 10.1 10*3/uL 4.1-10.5 [facility] Lymphocytes Auto (Bld) [#/Vo l]Ordered By: Mary Calhoun on 09-26-2023 Lymphocytes (Bld) [#/Vol] 2.5 10*3/uL 1.00-4.8 [facility] Lymphocytes/100 WBC Auto (Bl d)Ordered By: Mary Calhoun on 09-26-2023 Lymphocytes/100 WBC (Bld) 24.5 % . [facility] MCH Auto (RBC) [Entitic mass ]Ordered By: Mary Calhoun on 09-26-2023 MCH (RBC) [Entitic mass] 29.1 pg 27.5-35.2 [facility] MCHC Auto (RBC) [Mass/Vol]Or dered By: Mary Calhoun on 09-26-2023 MCHC (RBC) [Mass/Vol] 34.1 g/dL 32.5-35.6 [facility] MCV Auto (RBC) [Entitic vol] Ordered By: Mary Calhoun on 09-26-2023 MCV (RBC) [Entitic vol] 85.4 fL 83.5-101 [facility] Monocytes Auto (Bld) [#/Vol] Ordered By: Mary Calhoun on 09-26-2023 Monocytes (Bld) [#/Vol] 0.9 10*3/uL 0.0-0.8 [facility] Monocytes/100 WBC Auto (Bld) Ordered By: Mary Calhoun on 09-26-2023 Monocytes/100 WBC (Bld) 8.8 % . [facility] Neutrophils Auto (Bld) [#/Vo l]Ordered By: Mary Calhoun on 09-26-2023 Neutrophils (Bld) [#/Vol] 6.3 10*3/uL 1.8-7.7 [facility] Neutrophils/100 WBC Auto (Bl d)Ordered By: Mary Calhoun on 09-26-2023 Neutrophils/100 WBC (Bld) 62.7 % . [facility] No Panel InformationOrdered By: Mary Calhoun on 09-26-2023 Estimated GFR (CKD-EPI) > 60.0 mL/Min [facility] Creatinine Clearance (Chem 175.50 [facility] Nucleated erythrocytes [Pres ence] in Blood by Automated countOrdered By: Mary Calhoun on 09-26-2023 Nucleated RBC Auto Ql (Bld) 0.0 /100{WBC} 0-0.5 [facility] Platelet mean volume Auto (B ld) [Entitic vol]Ordered By: Mary Calhoun on 09-26-2023 Platelet mean volume (Bld) [Entitic vol] 7.5 fL 6.6-10.1 [facility] Platelets Auto (Bld) [#/Vol] Ordered By: Mary Calhoun on 09-26-2023 Platelets (Bld) [#/Vol] 276 10*3/uL 150-450 [facility] Potassium [Moles/volume] in Serum or PlasmaOrdered By: Mary Calhoun on 09-26-2023 Potassium [Moles/Vol] 4.1 mmol/L 3.5-5.1 [facility] [facility] RBC Auto (Bld) [#/Vol]Ordere d By: Mary Calhoun on 09-26-2023 RBC (Bld) [#/Vol] 5.12 10*6/uL 3.90-5.60 [facility] Serum or plasma anion gap de terminationOrdered By: Mary Calhoun on 09-26-2023 Anion gap [Moles/Vol] 10.0 mmol/L 6.0-15.0 [facility] Sodium [Moles/volume] in Ser um or PlasmaOrdered By: Mary Calhoun on 09-26-2023 Sodium [Moles/Vol] 136 mmol/L 136-145 [facility] Urea nitrogen [Mass/volume] in Serum or PlasmaOrdered By: Mary Calhoun on 09-26-2023 Urea nitrogen [Mass/Vol] 9 mg/dL 7-25 [facility] WBC Auto (Bld) [#/Vol]Ordere d By: Mary Calhoun on 09-26-2023 WBC (Bld) [#/Vol] 10.1 10*3/uL 4.1-10.5 [facility] Alanine aminotransferase [En zymatic activity/volume] in Serum or PlasmaOrdered By: Mary Calhoun on 09-25-2023 ALT [Catalytic activity/Vol] 23 U/L 7-52 [facility] Albumin [Mass/volume] in Ser um or Plasma by Bromocresol green (BCG) dye binding methoOrdered By: Mary Gutierresnina on 09-25-2023 Albumin BCG dye [Mass/Vol] 3.9 g/dL 3.5-5.7 [facility] Alkaline phosphatase [Enzyma tic activity/volume] in Serum or PlasmaOrdered By: Mary Calhoun on 09-25-2023 ALP [Catalytic activity/Vol] 61 U/L 34-104 [facility] Aspartate aminotransferase [ Enzymatic activity/volume] in Serum or PlasmaOrdered By: Mary Calhoun on 09-25-2023 AST [Catalytic activity/Vol] 16 U/L 13-39 [facility] Bilirubin.total [Mass/volume ] in Serum or PlasmaOrdered By: Mary Calhoun on 09-25-2023 Bilirubin [Mass/Vol] 1.3 mg/dL 0.3-1.0 [facility] Comment on above: Samples from patient s who have taken Naproxen have shown spurious elevation in Total Bilirubin levels. A metabolite of Naproxen, O-desmethylnaproxen, has been shown to interfere with the Lars-Yoshi method for measuring Total Bilirubin. Globulin Calc (S) [Mass/Vol] Ordered By: Mary Calhoun on 09-25-2023 Globulin (S) [Mass/Vol] 2.7 g/dL [facility] Protein [Mass/volume] in Ser um or PlasmaOrdered By: Mary Calhoun on 09-25-2023 Protein [Mass/Vol] 6.6 g/dL 6.4-8.9 [facility] Serum or plasma albumin/glob ulin mass ratioOrdered By: Mary Calhoun on 09-25-2023 Albumin/Globulin [Mass ratio] 1.4 {ratio} [facility] Laboratory - Chemistry and C hemistry - challengeOrdered By: Sherif Francis on 09-24-2023 CO2 [Moles/Vol] 23.6 mmol/L 24.0-29.0 [facility] HCO3 (Bld) [Moles/Vol] 22.5 mmol/L 23.0-29.0 [facility] Magnesium [Mass/volume] in S jaspreet or PlasmaOrdered By: Arabella Ferraro on 09-24-2023 Magnesium [Mass/Vol] 2.1 mg/dL 1.9-2.7 [facility] No Panel InformationOrdered By: Sherif Francis on 09-24-2023 Blood Gas Critical Value See comment [facility] Comment on above: Critical Value marietta loera on: 09/24/2023 at 04:29 Blood Gas Sample Site Venous Fir [facility] FiO2 21 % [facility] Venous Blood Base Excess -1.8 mmol/L -3.0-3.0 [facility] Venous Blood Oxygen Content 8.5 mmol/L 6.6-9.7 [facility] Venous Blood Oxygen Saturation 92.4 % 73.0-76.0 [facility] Venous Blood Partial Pressure CO2 37.0 mm[Hg] 38.0-50.0 [facility] Venous Blood Partial Pressure O2 58.7 mm[Hg] 35.0-45.0 [facility] Venous Blood pH 7.40 7.32-7.43 [facility] Acetaminophen [Mass/volume] in Serum or PlasmaOrdered By: Nirmal Pineda on 09-23-2023 Acetaminophen [Mass/Vol] 0.4 ug/mL 10.0-30.0 [facility] Activated partial thrombopla stin time (aPTT) in platelet poor plasma by coagulation aOrdered By: Nirmal Pineda on 09-23-2023 aPTT Coag (PPP) [Time] 29.6 s 25.1-36.5 [facility] Comment on above: A hematocrit value g reater than 55% may lead to inaccurate results in coagulation testing. Patients having hematocrit values >55% require a special collection tube for coagulation studies. Please contact the laboratory at [phone] for redraw instructions. Alanine aminotransferase [En zymatic activity/volume] in Serum or PlasmaOrdered By: Nirmal Pineda on 09-23-2023 ALT [Catalytic activity/Vol] 26 U/L 7-52 [facility] Albumin [Mass/volume] in Ser um or Plasma by Bromocresol green (BCG) dye binding methoOrdered By: Nirmal Pineda on 09-23-2023 Albumin BCG dye [Mass/Vol] 4.4 g/dL 3.5-5.7 [facility] Alkaline phosphatase [Enzyma tic activity/volume] in Serum or PlasmaOrdered By: Nirmal Pineda on 09-23-2023 ALP [Catalytic activity/Vol] 57 U/L 34-104 [facility] Amphetamine Screen Ql (U)Ord ered By: Nirmal Pineda on 09-23-2023 Amphetamines Ql (U) Negative Negative [facility] Aspartate aminotransferase [ Enzymatic activity/volume] in Serum or PlasmaOrdered By: Nirmal Pineda on 09-23-2023 AST [Catalytic activity/Vol] 16 U/L 13-39 [facility] Barbiturates [Presence] in U rine by Screen methodOrdered By: Nirmal Pineda on 09-23-2023 Barbiturates Screen Ql (U) Negative Negative [facility] Basophils Auto (Bld) [#/Vol] Ordered By: Nirmal Pineda on 09-23-2023 Basophils (Bld) [#/Vol] 0.0 10*3/uL 0.0-0.2 [facility] Basophils/100 WBC Auto (Bld) Ordered By: Nirmal Pineda on 09-23-2023 Basophils/100 WBC (Bld) 0.5 % . [facility] Benzodiazepines Screen Ql (U )Ordered By: Nirmal Pineda on 09-23-2023 Benzodiazepines Ql (U) Negative Negative [facility] Benzoylecgonine [Presence] i n Urine by Screen methodOrdered By: Nirmal Pineda on 09-23-2023 Benzoylecgonine Screen Ql (U) Negative Negative [facility] Bilirubin Test strip Ql (U)O rdered By: Nirmal Pineda on 09-23-2023 Bilirubin Ql (U) Negative Negative [facility] Bilirubin.total [Mass/volume ] in Serum or PlasmaOrdered By: Nirmal Pineda on 09-23-2023 Bilirubin [Mass/Vol] 0.8 mg/dL 0.3-1.0 [facility] Calcium [Mass/volume] in Ser um or PlasmaOrdered By: Nirmal Pineda on 09-23-2023 Calcium [Mass/Vol] 9.4 mg/dL 8.6-10.3 [facility] Cannabinoids [Presence] in U rine by Screen methodOrdered By: Nirmal Pineda on 09-23-2023 Cannabinoids Screen Ql (U) Negative Negative [facility] Comment on above: These are unconfirme d results and should not be used for legal purposes. Drug Cut-Off Concentration: AMPH 1000 ng/mL MANUEL 200 ng/mL LEXIE 200 ng/mL COCM 300 ng/mL OP 300 ng/mL PCP 25 ng/mL THC 20 ng/mL Carbon dioxide, total [Moles /volume] in Serum or PlasmaOrdered By: Nirmal Pineda on 09-23-2023 CO2 [Moles/Vol] 28.3 mmol/L 21.0-31.0 [facility] Chloride [Moles/volume] in S jaspreet or PlasmaOrdered By: Nirmal Pineda on 09-23-2023 Chloride [Moles/Vol] 103 mmol/L 98-107 [facility] Color Auto (U)Ordered By: Aryan Pineda on 09-23-2023 Color (U) Yellow Yellow [facility] Creatine kinase [Enzymatic a ctivity/volume] in Serum or PlasmaOrdered By: Nirmal Pineda on 09-23-2023 CK [Catalytic activity/Vol] 71 U/L 30-223 [facility] Creatinine [Mass/volume] in Serum or PlasmaOrdered By: Nirmal Pineda on 09-23-2023 Creatinine [Mass/Vol] 0.84 mg/dL 0.70-1.30 [facility] Eosinophils Auto (Bld) [#/Vo l]Ordered By: Nirmal Pineda on 09-23-2023 Eosinophils (Bld) [#/Vol] 0.1 10*3/uL 0.0-0.45 [facility] Eosinophils/100 WBC Auto (Bl d)Ordered By: Nirmal Pineda on 09-23-2023 Eosinophils/100 WBC (Bld) 0.8 % . [facility] Erythrocyte distribution wid th Auto (RBC) [Ratio]Ordered By: Nirmal Pineda on 09-23-2023 Erythrocyte distribution width (RBC) [Ratio] 13.7 % 12.0-14.8 [facility] Ethanol [Mass/volume] in Ser um or PlasmaOrdered By: Nirmal Pineda on 09-23-2023 Ethanol [Mass/Vol] mg/dL [facility] Ethanol [Mass/Vol] TNP [facility] Comment on above: Test not performed Globulin Calc (S) [Mass/Vol] Ordered By: Nirmal Pineda on 09-23-2023 Globulin (S) [Mass/Vol] 2.6 g/dL [facility] Glucose [Mass/volume] in Ser um or PlasmaOrdered By: Nirmal Pineda on 09-23-2023 Glucose [Mass/Vol] 163 mg/dL 70-100 [facility] Comment on above: ADA recommended refe rence rangeRandom Glucose Reference Range is dependent on time and content of last meal. Glucose of more than 200 mg/dL in a nonstressed, ambulatory subject supports the diagnosis of Diabetes Mellitus. Hematocrit Auto (Bld) [Volum e fraction]Ordered By: Nirmal Pineda on 09-23-2023 Hematocrit (Bld) [Volume fraction] 45.9 % 38.8-50.0 [facility] Hemoglobin [Mass/volume] in BloodOrdered By: Nirmal Pineda on 09-23-2023 Hemoglobin (Bld) [Mass/Vol] 15.5 g/dL 13.0-17.0 [facility] INR in Platelet poor plasma by Coagulation assayOrdered By: Nirmal Pineda on 09-23-2023 INR Coag (PPP) [Relative time] 1.0 {INR} [facility] Comment on above: INR Therapeutic Rang [...] with mechanical heart valves: 3 - 4.5 Ketones Auto test strip (U) [Mass/Vol]Ordered By: Nirmal Pineda on 09-23-2023 Ketones (U) [Mass/Vol] Negative Negative [facility] Laboratory - Chemistry and C hemistry - challengeOrdered By: Nirmal Pineda on 09-23-2023 CO2 [Moles/Vol] 25.4 mmol/L 24.0-29.0 [facility] HCO3 (Bld) [Moles/Vol] 24.1 mmol/L 23.0-29.0 [facility] CO2 [Moles/Vol] 24.7 mmol/L 23.0-27.0 [facility] HCO3 (Bld) [Moles/Vol] 23.7 mmol/L 23.0-29.0 [facility] Lactate [Moles/volume] in Se rum or PlasmaOrdered By: Nirmal Pineda on 09-23-2023 Lactate [Moles/Vol] 1.9 mmol/L 0.5-2.2 [facility] Leukocytes [#/volume] correc lucio for nucleated erythrocytes in Blood by Automated counOrdered By: Nirmal Pineda on 09-23-2023 WBC corrected for nucl RBC Auto (Bld) [#/Vol] 8.9 10*3/uL 4.1-10.5 [facility] Lipase [Enzymatic activity/v olume] in Serum or PlasmaOrdered By: Nirmal Pineda on 09-23-2023 Lipase [Catalytic activity/Vol] 16.0 U/L 11.0-82.0 [facility] Lymphocytes Auto (Bld) [#/Vo l]Ordered By: Nirmal Pienda on 09-23-2023 Lymphocytes (Bld) [#/Vol] 1.5 10*3/uL 1.00-4.8 [facility] Lymphocytes/100 WBC Auto (Bl d)Ordered By: Nirmal Pineda on 09-23-2023 Lymphocytes/100 WBC (Bld) 17.4 % . [facility] MCH Auto (RBC) [Entitic mass ]Ordered By: Nirmal Pineda on 09-23-2023 MCH (RBC) [Entitic mass] 28.8 pg 27.5-35.2 [facility] MCHC Auto (RBC) [Mass/Vol]Or dered By: Nirmal Pineda on 09-23-2023 MCHC (RBC) [Mass/Vol] 33.9 g/dL 32.5-35.6 [facility] MCV Auto (RBC) [Entitic vol] Ordered By: Nirmal Pineda on 09-23-2023 MCV (RBC) [Entitic vol] 85.2 fL 83.5-101 [facility] Magnesium [Mass/volume] in S jaspreet or PlasmaOrdered By: Nirmal Pineda on 09-23-2023 Magnesium [Mass/Vol] 1.9 mg/dL 1.9-2.7 [facility] Monocyte distribution width [Entitic volume] in Blood by AutomatedOrdered By: Nirmal Pineda on 09-23-2023 Monocyte distribution width Auto (Bld) [Entitic vol] 15.64 % 0.00-20.00 [facility] Monocytes Auto (Bld) [#/Vol] Ordered By: Nirmal Pineda on 09-23-2023 Monocytes (Bld) [#/Vol] 0.5 10*3/uL 0.0-0.8 [facility] Monocytes/100 WBC Auto (Bld) Ordered By: Nirmal Pineda on 09-23-2023 Monocytes/100 WBC (Bld) 5.9 % . [facility] Neutrophils Auto (Bld) [#/Vo l]Ordered By: Nirmal Pineda on 09-23-2023 Neutrophils (Bld) [#/Vol] 6.7 10*3/uL 1.8-7.7 [facility] Neutrophils/100 WBC Auto (Bl d)Ordered By: Nirmal Pineda on 09-23-2023 Neutrophils/100 WBC (Bld) 75.4 % . [facility] Nitrite Test strip Ql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 each day. These include: ? Avocado. ? Banana. ? [place], prune, carrot, or tomato juice. ? Baked [...] fish oil, or vitamin B6. ? Take ngil-cmo-dkfrsob and prescription medicines only as told by your health care provider. These include supplements. What foods should I limit? Limit your in (more content not included)... 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 CT AP w/o Con 02/23/23 - there [...] Hydronephrosis with renal and ureteral calculous obstruction) [facility] ER f/u from 02/23/23 due to lower abdominal pain, Lt-sided flank pain, and hematuria, was tx for UTI, acute urinary retention, and kidney stones, was given Tamsulosin, Keflex, Zofran, and [place] CT AP w/o Con 02/23/23 - there [...] Uric Acid -Dieta (more content not included)... [facility] Comment on above: Result Comment: Elec tronically Signed By: Nahed Doran MD\.br\Date and Time Signed: 03/04/23 11:50 EDT\.br\Electronically Co-Signed By: Rona Shrestha\.br\Date and Time Co-Signed: 03/04/23 10:57 EDT ED Note-Physicianon 02-28-20 ED Note-Physician [id number]#1.00TIFF [facility] RAD - CT Reporton 02-27-2023 RAD - CT Report [id number]#1.00TIFF [facility] CNPNon 02-10-2023 CNPN Telephone (NEADFV) -- JAYE HARVEY ([id number]) 1980 [place] Date Time Provider Department 02/10/23 GERALDINE ALONSO NEADFV During your visit today, we recorded the following information about you: Reina Griffith 02/10/2023 10:26 AM Signed Received [employer] prior auth request from [facility], uploaded to chart and forwarded for review. Stephanie Liao RN 02/10/2023 10:49 AM Signed Approvedon February 09 PA Case: [id number], Status: Approved, Coverage Starts on: 02/09/2023 12:00:00 AM, Coverage Ends on: 05/17/2023 12:00:00 AM. Stephanie Liao RN 06/26/2023 10:57 AM Signed Pa submitted via [employer] JAYE HARVEY (Guerrero: [email or web address]) Allergies As of [...] daily as needed for anxiety - rizatriptan (MAXALT-NAIL FEEDER) 10 mg disintegrating tablet Take 1 tablet [...] and PS 4-8cmh2O. His DME company is [employer] , new mask to fit patient preference, [...] (FLONASE) 50 mcg/actuation nasal spray Use 1 [place] in each nostril twice daily. - albuterol [...] Encounter Status:Closed by REINA [facility]RIFFITH [facility] Telephone (NEADFV) -- JAYE HARVEY ([id number]) 1980 M Date Time Provider Department 12/10/22 GERALDINE ALONSO ALSIRISHA During your visit today, we recorded the following information about you: Alicia Boyce 12/10/2022 12:08 PM Signed Received fax from [facility] with CT brain report, ER notes and labs. Scanned into [email or web address]. Stephanie Liao 12/10/2022 12:14 PM Signed Imaging [...] Reason for Visit: Received Outside Medical Records [[id number]] Cmt: [facility] Prescriptions as of 01/29/2023 - QUEtiapine (SEROQUEL) 300 mg tablet Take 1 tablet by mouth daily at bedtime. - EMGALITY PEN 120 mg/mL pen INJECT 1 MILLILITER SUBCUTANEOUSLY ONCE EVERY MONTH. DO NOT SHAKE. - rizatriptan (MAXALT-NAIL FEEDER) 10 mg disintegrating tablet Take 1 tablet [...] and PS 4-8cmh2O. His DME company is [employer] mask to fit patient preference, ramp, humidification [...] (FLONASE) 50 mcg/actuation nasal spray Use 1 [place] in each nostril twice daily. - albuterol [...] Encounter Status:Closed by ALICIA BOYCE on 01/29/23 [facility] 11-20-2022 [facility] Telephone (NEADFV) -- JAYE HARVEY ([id number]) 1980 [place] Date Time Provider Department 11/20/22 GERALDINE ALONSO During your visit today, we recorded the following information about you: Alicia Boyce 11/20/2022 9:45 AM Signed Received fax from [employer] stating that prior authorization for Emgality has [...] EVERY MONTH. DO NOT SHAKE. - rizatriptan (MAXALT-NAIL FEEDER) 10 mg disintegrating tablet Take 1 tablet [...] and PS 4-8cmh2O. His DME company is [employer] , new mask to fit patient preference, [...] (FLONASE) 50 mcg/actuation nasal spray Use 1 [place] in each nostril twice daily. - albuterol HFA (PROVENTIL HFA, VENTOLIN HFA) 90 mcg/actuation inhaler Inhale 1-2 Puffs as instructed as needed for Wheezing/Shortness of Breath. Problem List As Of Date 11/20/2022 Noted Resolved Epilepsy (HCC) [G40.909] 06/18/2004 Epilepsy with altered consciousness without int*07/31/2010 Depression with anxiety [F41.8] 01/12/2014 Respiratory failure requiring intubation ([facility]) *04/07/2016 Acute respiratory failure ([facility]) [J96.00] 04/07/2016 03/26/2019 Hx of suicide attempt [Z91.51] 04/07/2016 Bipolar II disorder ([facility]) [F31.81] 07/02/2016 Obesity, Class I, BMI [...] Status:Closed by ALICIA BOYCE on 01/29/23 Normal [facility] CHEMISTRYOrdered By: SYSTEM SYSTEM on 09-19-2022 Anion gap [Moles/Vol] 11 mmol/L Normal 6 - 16 mEq/L FT Remisol Chloride [Moles/Vol] 103 mmol/L Normal 101 - 1 11 mmol/L FT Remisol CO2 [Moles/Vol] 27 mmol/L Normal 21 - 31 mmol/L [facility] Remisol Creatinine [Mass/Vol] 0.8 mg/dL Normal 0.5 - 1.3 mg/dL FT Remisol GFR/1.73 sq M.predicted among non-blacks MDRD (S/P/Bld) [Vol rate/Area] 115 mL/min/1.73 m2 Normal >=59mL/min /1.73 m2 [facility] Chem S Potassium [Moles/Vol] 4.3 mmol/L Normal [...] 7.4 fL Normal 6.4 - 10.8 fL [facility] HemeAutoSS Platelets (Bld) [#/Vol] 296.0 E9/L Normal 150.0 - 500.0 E9/L FT HemeAutoSS RBC (Bld) [#/Vol] 5.6 E12/L Normal 4.3 - 5.9 E12/L FT HemeAutoSS WBC corrected for nucl RBC Auto (Bld) [#/Vol] 7.0 E9/L Normal 4.0 - 11.0 E9/L FT HemeAutoSS CBC AUTO DIFFon 07-28-2022 BASO # 0.1 103/ul Normal 0.0-0.1 [facility] Comment on above: Performed By: #### C MADM, BMP #### [facility] [address] [place] [address] Dr. Meron Gentile Basophils/100 WBC (Bld) 0.5 % Normal 0.2-2.0 [facility] Comment on above: Performed By: #### C MADM, BMP #### [facility] [address] [place] [address] Dr. Meron Gentile EO # 0.2 103/ul Normal 0.0-0.7 [facility] Comment on above: Performed By: #### C MADM, BMP #### [facility] [address] [place] [address] Dr. Meron Gentile Eosinophils/100 WBC (Bld) 2.0 % Normal 0.9-7.0 [facility] Comment on above: Performed By: #### C CLEMENCIA, BMP #### [facility] [address] [place] [address] Dr. Meron Gentile Erythrocyte distribution width (RBC) [Ratio] 12.5 % Normal 11.0-15.0 [facility] Comment on above: Performed By: #### C CLEMENCIA, BMP #### [facility] [address] [place] [address] Dr. Meron Gentile Hematocrit (Bld) [Volume fraction] 48.6 % Normal 42.0-54.0 [facility] Comment on above: Performed By: #### C CLEMENCIA, BMP #### [facility] [address] [place] [address] Dr. Meron Gentile Hemoglobin (Bld) [Mass/Vol] 16.7 g/dL Normal 14.0-18.0 [facility] Comment on above: Performed By: #### C MADM, BMP #### [facility] [address] [place] [address] Dr. Meron Gentile IG # 0.03 10e3/ul Normal 0.00-0.03 [facility] Comment on above: Performed By: #### C CLEMENCIA, BMP #### [facility] [address] [place] [address] Dr. Meron Gentile IG % 0.3 % Normal 0.0-0.5 [facility] Comment on above: Performed By: #### C CLEMENCIA, BMP #### [facility] [address] [place] [address] Dr. Meron Gentile LYMPH # 2.0 103/ul Normal 1.2-3.8 [facility] Comment on above: Performed By: #### C CLEMENCIA, BMP #### [facility] [address] [place] [address] Dr. Meron Gentile Lymphocytes/100 WBC (Bld) 20.4 % Critically low 20.5-60.0 [facility] Comment on above: Performed By: #### C CLEMENCIA, BMP #### [facility] [address] [place] [address] Dr. Meron Gentile MANUAL DIFF REQ NO Normal [facility] Comment on above: Performed By: #### C CLEMENCIA, BMP #### [facility] [address] [place] [address] Dr. Meron Gentile MCH (RBC) [Entitic mass] 28.8 pg Normal 25.9-34.0 [facility] [facility] Comment on above: Performed By: #### C CLEMENCIA, BMP #### [facility] [address] [place] [address] Dr. Meron Gentile MCHC (RBC) [Mass/Vol] 34.4 g/dL Normal 29.9-35.2 The [facility] Comment on above: Performed By: #### C CLEMENCIA, BMP #### [facility] [address] [place] [address] Dr. Meron Gentile MCV (RBC) [Entitic vol] 83.9 fL Normal 80.0-94.0 The [facility] Comment on above: Performed By: #### C CLEMENCIA, BMP #### [facility] [address] [place] [address] Dr. Meron Gentile MONO # 0.7 103/ul Normal 0.3-0.8 The [facility] Comment on above: Performed By: #### C CLEMENCIA, BMP #### [facility] [address] [address] [address] Meron Gentile Monocytes/100 WBC (Bld) 7.2 % Normal 1.7-12.0 The [facility] Comment on above: Performed By: #### C CLEMENCIA, BMP #### [facility] [address] [place] [address] Dr. Meron Gentile NEUT # 6.7 103/ul Critically high 1.4-6.5 [facility] Comment on above: Performed By: #### C CLEMENCIA, BMP #### [facility] [address] [place] [address] Dr. Meron Gentile Neutrophils/100 WBC (Bld) 69.6 % Normal 43.0-75.0 The [facility] Comment on above: Performed By: #### C CLEMENCIA, BMP #### [facility] [address] [place] [address] Dr. Meron Gentile Platelet mean volume (Bld) [Entitic vol] 8.7 fL Critically low 9.5-13.5 [facility] Comment on above: Performed By: #### C CLEMENCIA, BMP #### [facility] [address] [place] [address] Dr. Meron Gentile PLT 326 103/ul Normal 150-450 The [facility] Comment on above: Performed By: #### C CLEMENCIA, BMP #### [facility] [address] [place] [address] Dr. Meron Gentile RBC 5.79 106/ul Normal 4.70-6.10 The [facility] Comment on above: Performed By: #### C CLEMENCIA, BMP #### [facility] [address] [place] [address] Dr. Meron Gentile WBC 9.6 103/ul Normal 4.0-11.0 The [facility] Comment on above: Performed By: #### C CLEMENCIA, BMP #### [facility] [address] [place] [address] Dr. Meron Gentile CRPon 07-28-2022 CRP [Mass/Vol] mg/L Normal <=1.0 The [facility] Comment on above: Performed By: #### B MP, CRP #### [facility] [address] [address] ABD/PELV W CONon [...] OTF PARKS Date: 2022-07-28 21:32 Normal The [facility] CT HEAD WO CONon 07-28-2022 CT HEAD [...] OTF PARKS Date: 2022-07-28 21:24 Normal The [facility] ER URINE PROFILEon 3 Bilirubin Ql (U) Negative Normal NEGATIVE The [facility] Comment on above: Performed By: #### E RUR #### [facility] [address] [place] [address] Dr. Meron Gentile Clarity (U) CLEAR Normal CLEAR The [facility] Comment on above: Performed By: #### E RUR #### [facility] [address] [place] [address] Dr. Meron Gentile Color (U) LT. YELLOW Normal YELLOW [facility] Comment on above: Performed By: #### E RUR #### [facility] [address] [place] [address] Dr. Meron Gentile ERUAHD A micrscopic examina tion will be performed if indicated. Normal The [facility] Comment on above: Performed By: #### E RUR #### [facility] [address] [place] [address] Dr. Meron Gentile Glucose Ql (U) Negative Normal NEGATIVE [facility] Comment on above: Performed By: #### E RUR #### [facility] [address] [place] [address] Dr. Meron Gentile Hemoglobin Ql (U) Negative Normal NEGATIVE [facility] Comment on above: Performed By: #### E RUR #### [facility] [address] [place] [address] Dr. Meron Gentile Ketones Ql (U) Negative Normal NEGATIVE [facility] Comment on above: Performed By: #### E RUR #### [facility] [address] [place] [address] Dr. Meron Gentile LEUKOCYTES Negative Normal NEGATIVE [facility] Comment on above: Performed By: #### E RUR #### [facility] [address] [place] [address] Dr. Meron Gentile Nitrite Ql (U) Negative Normal NEGATIVE [facility] Comment on above: Performed By: #### E RUR #### [facility] [address] [place] [address] Dr. Meron Gentile pH (U) 7.0 [pH] Normal 5-9 [facility] Comment on above: Performed By: #### E RUR #### [facility] [address] [place] [address] Dr. Meron Gentile SPEC GRAVITY <=1.005 Abnormal 1.005-<=1. 025 [facility] Comment on above: Performed By: #### E RUR #### [facility] [address] [place] [address] Dr. Meron Gentile UA PROTEIN Negative Normal NEGATIVE/ TRACE [facility] Comment on above: Performed By: #### E RUR #### [facility] [address] [place] [address] Dr. Meron Gentile UR MICRO IND NOT INDICATED Normal [facility] Comment on above: Performed By: #### E RUR #### [facility] [address] [place] [address] Dr. Meron Gentile Urobilinogen Qn (U) 0.2 {Roel'U}/dL Normal 0.2 - 1. 0 [facility] Comment on above: Performed By: #### E RUR #### [facility] [address] [place] [address] Dr. Meron Gentile PROF CHEM 8 (BAS METB)on Anion gap [Moles/Vol] 11.3 mmol/L Normal [facility] Comment on above: Performed By: #### B MP, CRP #### [facility] [address] [place] [address] Dr. Meron Gentile Calcium [Mass/Vol] 8.9 mg/dL Normal 8.5-10.1 [facility] Comment on above: Performed By: #### B MP, CRP #### [facility] [address] [place] [address] Dr. Meron Gentile Chloride [Moles/Vol] 102 mmol/L Normal 98-107 The [facility] Comment on above: Performed By: #### B MP, CRP #### [facility] [address] [place] [address] Dr. Meron Gentile CO2 [Moles/Vol] 27.5 mmol/L Normal 21.0-32.0 [facility] Comment on above: Performed By: #### B MP, CRP #### [facility] [address] [place] [address] Dr. Meron Gentile Creatinine [Mass/Vol] 0.67 mg/dL Critically low 0.70-1.30 [facility] Comment on above: Performed By: #### B MP, CRP #### [facility] [address] [address] [address] Meron Gentile EGFR-AF GEORGIAN >60 Normal >=60 [facility] Comment on above: Performed By: #### B MP, CRP #### [facility] [address] [address] [address] Meron Gentile EGFR-NON AF GEORGIAN >60 Normal >=60 [facility] Comment on above: Performed By: #### B MP, CRP #### [facility] [address] [address] [address] Meron Gentile Glucose [Mass/Vol] 117 mg/dL Critically high 74-106 T [facility] Comment on above: Performed By: #### B MP, CRP #### [facility] [address] [address] [address] Meron Gentile Potassium [Moles/Vol] 3.8 mmol/L Normal 3.5-5.1 [facility] Comment on above: Performed By: #### B MP, CRP #### [facility] [address] [address] [address] Meron Gentile Sodium [Moles/Vol] 137 mmol/L Normal 136-145 [facility] Comment on above: Performed By: #### B MP, CRP #### [facility] [address] [address] [address] Meron Gentile Urea nitrogen [Mass/Vol] 12.0 mg/dL Normal 7.0-18.0 [facility] Comment on above: Performed By: #### B MP, CRP #### [facility] [address] [address] [address] Meron Gentile Urea nitrogen/Creatinine [Mass ratio] 17.9 mg/mg Normal [facility] Comment on above: Performed By: #### B MP, CRP #### [facility] [address] [address] [address] Meron Gentile XR KNEE LT 4V [...] JAY KATZ Date: 2022-07-28 21:39 Normal The [facility] CBC AUTO DIFFon 01-13-2022 BASO # 0.1 103/ul Normal 0.0-0.1 [facility] Comment on above: Performed By: #### C BC #### [facility] [address] [place] [address] Dr. Meron Gentile Basophils/100 WBC (Bld) 0.3 % Normal 0.2-2.0 [facility] Comment on above: Performed By: #### C BC #### [facility] [address] [place] [address] Dr. Meron Gentile EO # 0.0 103/ul Normal 0.0-0.7 The [facility] Comment on above: Performed By: #### C BC #### [facility] [address] [place] [address] Dr. Meron Gentile Eosinophils/100 WBC (Bld) 0.1 % Critically low 0.9-7.0 The [facility] Comment on above: Performed By: #### C BC #### [facility] [address] [place] [address] Dr. Meron Gentile Erythrocyte distribution width (RBC) [Ratio] 12.4 % Normal 11.0-15.0 [facility] Comment on above: Performed By: #### C BC #### [facility] [address] [place] [address] Dr. Meron Gentile Hematocrit (Bld) [Volume fraction] 44.3 % Normal 42.0-54.0 [facility] Comment on above: Performed By: #### C BC #### [facility] [address] [place] [address] Dr. Meron Gentile Hemoglobin (Bld) [Mass/Vol] 15.0 g/dL Normal 14.0-18.0 [facility] Comment on above: Performed By: #### C BC #### [facility] [address] [place] [address] Dr. Meron Gentile IG # 0.28 10e3/ul Critically high 0.00-0.03 [facility] Comment on above: Performed By: #### C BC #### [facility] [address] [place] [address] Dr. Meron Gentile IG % 1.7 % Critically high 0.0-0.5 [facility] Comment on above: Performed By: #### C BC #### [facility] [address] [place] [address] Dr. Meron Gentile LYMPH # 3.4 103/ul Normal 1.2-3.8 [facility] Comment on above: Performed By: #### C BC #### [facility] [address] [place] [address] Dr. Meron Gentile Lymphocytes/100 WBC (Bld) 20.2 % Critically low 20.5-60.0 [facility] Comment on above: Performed By: #### C BC #### [facility] [address] [place] [address] Dr. Meron Gentile MANUAL DIFF REQ NO Normal The [facility] Comment on above: Performed By: #### C BC #### [facility] [address] [place] [address] Dr. Meron Gentile MCH (RBC) [Entitic mass] 29.2 pg Normal 25.9-34.0 The [facility] Comment on above: Performed By: #### C BC #### [facility] [address] [place] [address] Dr. Meron Gentile MCHC (RBC) [Mass/Vol] 33.9 g/dL Normal 29.9-35.2 [facility] Comment on above: Performed By: #### C BC #### [facility] [address] [address] [address] Meron Gentile MCV (RBC) [Entitic vol] 86.4 fL Normal 80.0-94.0 [facility] Comment on above: Performed By: #### C BC #### [facility] [address] [address] [address] Meron Gentile MONO # 1.3 103/ul Critically high 0.3-0.8 [facility] Comment on above: Performed By: #### C BC #### [facility] [address] [address] [address] Meron Gentile Monocytes/100 WBC (Bld) 7.5 % Normal 1.7-12.0 [facility] Comment on above: Performed By: #### C BC #### [facility] [address] [place] [address] Dr. Meron Gentile NEUT # 11.7 103/ul Critically high 1.4-6.5 [facility] Comment on above: Performed By: #### C BC #### [facility] [address] [place] [address] Dr. Meron Gentile Neutrophils/100 WBC (Bld) 70.2 % Normal 43.0-75.0 [facility] Comment on above: Performed By: #### C BC #### [facility] [address] [place] [address] Dr. Meron Gentile Platelet mean volume (Bld) [Entitic vol] 8.6 fL Critically low 9.5-13.5 The [facility] Comment on above: Performed By: #### C BC #### [facility] [address] [place] [address] Dr. Meron Gentile PLT 369 103/ul Normal 150-450 The [facility] Comment on above: Performed By: #### C BC #### [facility] [address] [place] [address] Dr. Meron Gentile RBC 5.13 106/ul Normal 4.70-6.10 The [facility] Comment on above: Performed By: #### C BC #### [facility] [address] [place] [address] Dr. Meron Gentile WBC 16.7 103/ul Critically high 4.0-11.0 [facility] Comment on above: Performed By: #### C BC #### [facility] [address] [place] [address] Dr. Meron Gentile PROF 14(COMP METB)on 022 Albumin [Mass/Vol] 3.6 g/dL Normal 3.4-5.0 [facility] Comment on above: Performed By: #### B MP, CRP #### [facility] [address] [place] [address] Dr. Meron Gentile Albumin/Globulin [Mass ratio] 1.1 {ratio} Normal [facility] Comment on above: Performed By: #### B MP, CRP #### [facility] [address] [place] [address] Dr. Meron Gentile ALP [Catalytic activity/Vol] 59 U/L Normal 46-116 The [facility] Comment on above: Performed By: #### B MP, CRP #### [facility] [address] [place] [address] Dr. Meron Gentile ALT [Catalytic activity/Vol] 36 U/L Normal 16-63 The [facility] Comment on above: Performed By: #### B MP, CRP #### [facility] [address] [place] [address] Dr. Meron Gentile Anion gap [Moles/Vol] 10.2 mmol/L Normal [facility] Comment on above: Performed By: #### B MP, CRP #### [facility] [address] [place] [address] Dr. Meron Gentile AST [Catalytic activity/Vol] 11 U/L Critically low 15-37 The [facility] Comment on above: Performed By: #### B MP, CRP #### [facility] [address] [place] [address] Dr. Meron Gentile Bilirubin [Mass/Vol] 0.4 mg/dL Normal 0.2-1.0 [facility] Comment on above: Performed By: #### B MP, CRP #### [facility] [address] [address] [address] Meron Gentile Calcium [Mass/Vol] 8.6 mg/dL Normal 8.5-10.1 [facility] Comment on above: Performed By: #### B MP, CRP #### [facility] [address] [address] [address] Meron Gentile Chloride [Moles/Vol] 99 mmol/L Normal 98-107 The [facility] Comment on above: Performed By: #### B MP, CRP #### [facility] [address] [place] [address] Dr. Meron Gentile CO2 [Moles/Vol] 28.2 mmol/L Normal 21.0-32.0 [facility] Comment on above: Performed By: #### B MP, CRP #### [facility] [address] [place] [address] Dr. Meron Gentile Creatinine [Mass/Vol] 0.77 mg/dL Normal 0.70-1.30 The [facility] Comment on above: Performed By: #### B MP, CRP #### [facility] [address] [place] [address] Dr. Meron Gentile EGFR-AF GEORGIAN >60 Normal >=60 [facility] Comment on above: Performed By: #### B MP, CRP #### [facility] [address] [place] [address] Dr. Meron Gentile EGFR-NON AF GEORGIAN >60 Normal >=60 [facility] Comment on above: Performed By: #### B MP, CRP #### [facility] [address] [place] [address] Dr. Meron Gentile Globulin (S) [Mass/Vol] 3.2 g/dL Normal [facility] Comment on above: Performed By: #### B MP, CRP #### [facility] [address] [place] [address] Dr. Meron Gentile Glucose [Mass/Vol] 107 mg/dL Critically high 74-106 T [facility] Comment on above: Performed By: #### B MP, CRP #### [facility] [address] [place] [address] Dr. Meron Gentile Potassium [Moles/Vol] 3.4 mmol/L Critically low 3.5-5.1 [facility] Comment on above: Performed By: #### B MP, CRP #### [facility] [address] [address] [address] Meron Gentile Protein [Mass/Vol] 6.8 g/dL Normal 6.4-8.2 [facility] Comment on above: Performed By: #### B MP, CRP #### [facility] [address] [address] [address] Meron Gentile Sodium [Moles/Vol] 134 mmol/L Critically low 136-145 Th [facility] Comment on above: Performed By: #### B MP, CRP #### [facility] [address] [place] [address] Dr. Meron Gentile Urea nitrogen [Mass/Vol] 10.0 mg/dL Normal 7.0-18.0 [facility] Comment on above: Performed By: #### B MP, CRP #### [facility] [address] [place] [address] Dr. Meron Gentile Urea nitrogen/Creatinine [Mass ratio] 13.0 mg/mg Normal The [facility] Comment on above: Performed By: #### B MP, CRP #### [facility] [address] [place] [address] Dr. Meron Gentile TROPONIN, HIGH SENSITIVITYon 01-13-2022 HSTROP 5.3 pg/mL Normal 4.0-76.1 [facility] Comment on above: Result Comment: CUT- OFF POINTS HAVE BEEN ESTABLISHED BASED ON THE FOURTH UNIVERSAL DEFINITIONS OF MYOCARDIAL INFARCTION. THE UPPER REFERENCE LIMIT (URL) OF TROPONIN, DEFINED THE 99TH PERCENTILE OF cTnI DISTRIBUTION IN A REFERENCE POPULATION, HAS BEEN CONFIRMED THE DECISION THRESHOLD FOR [place] DIAGNOSIS. Performed By: #### B MP, CRP #### [facility] [address] [place] [address] Dr. Meron Gentile XR CHEST 1 Von [...] by: YAMILETH LEE Date: 2022-01-12 22:48 Normal [facility] No Panel Informationon 01-07 [facility] CARDIAC TYLER 3-6on 2 CK [Catalytic activity/Vol] 98 U/L Normal 39-308 [facility] Comment on above: Performed By: #### C MREP #### [facility] [address] [place] [address] Dr. Meron Gentile CK.MB [Mass/Vol] 1.08 ng/mL Normal <=3.60 [facility] Comment on above: Performed By: #### C MREP #### [facility] [address] [place] [address] Dr. Meron Gentile HSTROP 6.2 pg/mL Normal 4.0-76.1 [facility] Comment on above: Result Comment: CUT- OFF POINTS HAVE BEEN ESTABLISHED BASED ON THE FOURTH UNIVERSAL DEFINITIONS OF MYOCARDIAL INFARCTION. THE UPPER REFERENCE LIMIT (URL) OF TROPONIN, DEFINED THE 99TH PERCENTILE OF cTnI DISTRIBUTION IN A REFERENCE POPULATION, HAS BEEN CONFIRMED THE DECISION THRESHOLD FOR [place] DIAGNOSIS. Performed By: #### C MREP #### [facility] [address] [place] [address] Dr. Meron Gentile XR CHEST 1 Von [...] by: NADIRA MARTINI Date: 2022-01-05 22:18 Normal [facility] CARDIAC TYLER ADMITon 022 CK [Catalytic activity/Vol] 107 U/L Normal 39-308 The [facility] Comment on above: Performed By: #### C CLEMENCIA, BMP #### [facility] [address] [place] [address] Dr. Meron Gentile CK.MB [Mass/Vol] 1.26 ng/mL Normal <=3.60 The [facility] Comment on above: Performed By: #### C MADM, BMP #### [facility] [address] [place] [address] Dr. Meron Gentile HSTROP 6.3 pg/mL Normal 4.0-76.1 The [facility] Comment on above: Result Comment: CUT- OFF POINTS HAVE BEEN ESTABLISHED BASED ON THE FOURTH UNIVERSAL DEFINITIONS OF MYOCARDIAL INFARCTION. THE UPPER REFERENCE LIMIT (URL) OF TROPONIN, DEFINED THE 99TH PERCENTILE OF cTnI DISTRIBUTION IN A REFERENCE POPULATION, HAS BEEN CONFIRMED THE DECISION THRESHOLD FOR [place] DIAGNOSIS. Performed By: #### C MADM, BMP #### [facility] [address] [place] [address] Dr. Meron Gentile PERLA 41 ng/mL Normal 16-96 The [facility] Comment on above: Performed By: #### C MADM, BMP #### [facility] [address] [place] [address] Dr. Meron Gentile CBC AUTO DIFFon 01-05-2022 BASO # 0.0 103/ul Normal 0.0-0.1 [facility] Comment on above: Performed By: #### B MP, CRP #### [facility] [address] [place] [address] Dr. Meron Gentile Basophils/100 WBC (Bld) 0.5 % Normal 0.2-2.0 The [facility] Comment on above: Performed By: #### B MP, CRP #### [facility] [address] [place] [address] Dr. Meron Gentile EO # 0.1 103/ul Normal 0.0-0.7 The [facility] Comment on above: Performed By: #### B MP, CRP #### [facility] [address] [place] [address] Dr. Meron Gentile Eosinophils/100 WBC (Bld) 1.2 % Normal 0.9-7.0 [facility] Comment on above: Performed By: #### B MP, CRP #### [facility] [address] [place] [address] Dr. Meron Gentile Erythrocyte distribution width (RBC) [Ratio] 12.2 % Normal 11.0-15.0 [facility] Comment on above: Performed By: #### B MP, CRP #### [facility] [address] [place] [address] Dr. Meron Gentile Hematocrit (Bld) [Volume fraction] 45.6 % Normal 42.0-54.0 [facility] Comment on above: Performed By: #### B MP, CRP #### [facility] [address] [place] [address] Dr. Meron Gentile Hemoglobin (Bld) [Mass/Vol] 15.2 g/dL Normal 14.0-18.0 [facility] Comment on above: Performed By: #### B MP, CRP #### [facility] [address] [place] [address] Dr. Meron Gentile IG # 0.02 10e3/ul Normal 0.00-0.03 [facility] Comment on above: Performed By: #### B MP, CRP #### [facility] [address] [place] [address] Dr. Meron Gentile IG % 0.2 % Normal 0.0-0.5 [facility] Comment on above: Performed By: #### B MP, CRP #### [facility] [address] [place] [address] Dr. Meron Gentile LYMPH # 1.6 103/ul Normal 1.2-3.8 The [facility] Comment on above: Performed By: #### B MP, CRP #### [facility] [address] [place] [address] Dr. Meron Gentile Lymphocytes/100 WBC (Bld) 18.9 % Critically low 20.5-60.0 [facility] Comment on above: Performed By: #### B MP, CRP #### [facility] [address] [place] [address] Dr. Meron Gentile MANUAL DIFF REQ NO Normal [facility] Comment on above: Performed By: #### B MP, CRP #### [facility] [address] [place] [address] Dr. Meron Gentile MCH (RBC) [Entitic mass] 29.0 pg Normal 25.9-34.0 [facility] Comment on above: Performed By: #### B MP, CRP #### [facility] [address] [place] [address] Dr. Meron Gentile MCHC (RBC) [Mass/Vol] 33.3 g/dL Normal 29.9-35.2 The [facility] Comment on above: Performed By: #### B MP, CRP #### [facility] [address] [place] [address] Dr. Meron Gentile MCV (RBC) [Entitic vol] 86.9 fL Normal 80.0-94.0 [facility] Comment on above: Performed By: #### B MP, CRP #### [facility] [address] [place] [address] Dr. Meron Gentile MONO # 1.1 103/ul Critically high 0.3-0.8 [facility] Comment on above: Performed By: #### B MP, CRP #### [facility] [address] [place] [address] Dr. Meron Gentile Monocytes/100 WBC (Bld) 12.3 % Critically high 1.7-12.0 [facility] Comment on above: Performed By: #### B MP, CRP #### [facility] [address] [place] [address] Dr. Meron Gentile NEUT # 5.7 103/ul Normal 1.4-6.5 The [facility] Comment on above: Performed By: #### B MP, CRP #### [facility] [address] [place] [address] Dr. Meron Gentile Neutrophils/100 WBC (Bld) 66.9 % Normal 43.0-75.0 The [facility] Comment on above: Performed By: #### B MP, CRP #### [facility] [address] [place] [address] Dr. Meron Gentile Platelet mean volume (Bld) [Entitic vol] 8.6 fL Critically low 9.5-13.5 The [facility] Comment on above: Performed By: #### B MP, CRP #### [facility] [address] [place] [address] Dr. Meron Gentile PLT 279 103/ul Normal 150-450 The [facility] Comment on above: Performed By: #### B MP, CRP #### [facility] [address] [place] [address] Dr. Meron Gentile RBC 5.25 106/ul Normal 4.70-6.10 The [facility] Comment on above: Performed By: #### B MP, CRP #### [facility] [address] [place] [address] Dr. Meron Gentile WBC 8.6 103/ul Normal 4.0-11.0 [facility] Comment on above: Performed By: #### B MP, CRP #### [facility] [address] [place] [address] Dr. Meron Gentile Covid-19 PCR ([facility])on 12-17 SARS-CoV-2 (COVID-19) RNA SULEIMAN+probe Ql (Unsp spec) Not detected Normal NOT DETECTED The [facility] Comment on above: Result Comment: When diagnostic [...] for this test is supported by the [place] Commissioner of Health and Human Service's declaration that [...] Performed By: #### C MADM, BMP #### [facility] [address] [place] [address] Dr. Meron Gentile D-DIMERon 01-05-2022 D-DIMER 0.19 mg/L FEU Normal <=0.59 [facility] Comment on above: Performed By: #### D DIM #### [facility] [address] [place] [address] Dr. Meron Gentile D-DIMER COMMENTS SEE BELOW Normal [facility] Comment on above: Result Comment: [...] hospitalization. Performed By: #### D DIM #### [facility] [address] [place] [address] Dr. Meron Gentile INFLUENZA A AND B AGon 01-05 INFLUENZA A AG Negative Normal NEGATIVE SEE COMMENT [facility] Comment on above: Performed By: #### C CLEMENCIA, BMP #### [facility] [address] [place] [address] Dr. Meron Gentile INFLUENZA B AG Negative Normal NEGATIVE SEE COMMENT [facility] Comment on above: Performed By: #### C DONNIEM, BMP #### [facility] [address] [place] [address] Dr. Meron Gentile INTERNAL CONTROLS Within Normal Limits Normal Wi thin Normal Limits The [facility] Comment on above: Performed By: #### C MADM, BMP #### [facility] [address] [place] [address] Dr. Meron Gentile PROF CHEM 8 (BAS METB)on Anion gap [Moles/Vol] 9.3 mmol/L Normal [facility] Comment on above: Performed By: #### C MADM, BMP #### [facility] [address] [place] [address] Dr. Meron Gentile Calcium [Mass/Vol] 9.1 mg/dL Normal 8.5-10.1 [facility] Comment on above: Performed By: #### C MADM, BMP #### [facility] [address] [place] [address] Dr. Meron Gentile Chloride [Moles/Vol] 97 mmol/L Critically low 98-107 [facility] Comment on above: Performed By: #### C MADM, BMP #### [facility] [address] [place] [address] Dr. Meron Gentile CO2 [Moles/Vol] 30.6 mmol/L Normal 21.0-32.0 [facility] Comment on above: Performed By: #### C MADM, BMP #### [facility] [address] [place] [address] Dr. Meron Gentile Creatinine [Mass/Vol] 0.77 mg/dL Normal 0.70-1.30 The [facility] Comment on above: Performed By: #### C MADM, BMP #### [facility] [address] [place] [address] Dr. Meron Gentile EGFR-AF GEORGIAN >60 Normal >=60 The [facility] Comment on above: Performed By: #### C DONNIEM, BMP #### [facility] [address] [place] [address] Dr. Meron Gentile EGFR-NON AF GEORGIAN >60 Normal >=60 [facility] Comment on above: Performed By: #### C DONNIEM, BMP #### [facility] [address] [place] [address] Dr. Meron Gentile Glucose [Mass/Vol] 104 mg/dL Normal 74-106 The [facility] Comment on above: Performed By: #### C MADM, BMP #### [facility] [address] [place] [address] Dr. Meron Gentile Potassium [Moles/Vol] 3.9 mmol/L Normal 3.5-5.1 The [facility] Comment on above: Performed By: #### C MADM, BMP #### [facility] [address] [place] [address] Dr. Meron Gentile Sodium [Moles/Vol] 133 mmol/L Critically low 136-145 Th e [facility] Comment on above: Performed By: #### C MADM, BMP #### [facility] [address] [place] [address] Dr. Meron Gentile Urea nitrogen [Mass/Vol] 8.0 mg/dL Normal 7.0-18.0 [facility] Comment on above: Performed By: #### C MADM, BMP #### [facility] [address] [place] [address] Dr. Meron Gentile Urea nitrogen/Creatinine [Mass ratio] 10.4 mg/mg Normal The [facility] Comment on above: Performed By: #### C DONNIEM, BMP #### [facility] [address] [place] [address] Dr. Meron Gentile INSULINon 09-26-2021 Insulin 14.8 uIU/mL Normal 2.6-24.9 [facility] Comment on above: Performed By: #### I NSULIN #### [facility] [address] [place] [address] Dr. Meron Gentile CBC AUTO DIFFon 09-25-2021 BASO # 0.1 103/ul Normal 0.0-0.1 [facility] Comment on above: Performed By: #### C BC #### [facility] [address] [place] [address] Dr. Meron Gentile Basophils/100 WBC (Bld) 0.7 % Normal 0.2-2.0 [facility] Comment on above: Performed By: #### C BC #### [facility] [address] [place] [address] Dr. Meron Gentile EO # 0.3 103/ul Normal 0.0-0.7 [facility] Comment on above: Performed By: #### C BC #### [facility] [address] [place] [address] Dr. Meron Gentile Eosinophils/100 WBC (Bld) 3.8 % Normal 0.9-7.0 [facility] Comment on above: Performed By: #### C BC #### [facility] [address] [place] [address] Dr. Meron Gentile Erythrocyte distribution width (RBC) [Ratio] 12.2 % Normal 11.0-15.0 [facility] Comment on above: Performed By: #### C BC #### [facility] [address] [place] [address] Dr. Meron Gentile Hematocrit (Bld) [Volume fraction] 46.5 % Normal 42.0-54.0 [facility] Comment on above: Performed By: #### C BC #### [facility] [address] [place] [address] Dr. Meron Gentile Hemoglobin (Bld) [Mass/Vol] 15.5 g/dL Normal 14.0-18.0 [facility] Comment on above: Performed By: #### C BC #### [facility] [address] [place] [address] Dr. Meron Gentile IG # 0.04 10e3/ul Critically high 0.00-0.03 [facility] Comment on above: Performed By: #### C BC #### [facility] [address] [place] [address] Dr. Meron Gentile IG % 0.5 % Normal 0.0-0.5 [facility] Comment on above: Performed By: #### C BC #### [facility] [address] [place] [address] Dr. Meron Gentile LYMPH # 2.4 103/ul Normal 1.2-3.8 [facility] Comment on above: Performed By: #### C BC #### [facility] [address] [place] [address] Dr. Meron Gentile Lymphocytes/100 WBC (Bld) 31.5 % Normal 20.5-60.0 [facility] Comment on above: Performed By: #### C BC #### [facility] [address] [place] [address] Dr. Meron Gentile MANUAL DIFF REQ NO Normal The [facility] Comment on above: Performed By: #### C BC #### [facility] [address] [place] [address] Dr. Meron Gentile MCH (RBC) [Entitic mass] 29.1 pg Normal 25.9-34.0 [facility] Comment on above: Performed By: #### C BC #### [facility] [address] [place] [address] Dr. Meron Gentile MCHC (RBC) [Mass/Vol] 33.3 g/dL Normal 29.9-35.2 [facility] Comment on above: Performed By: #### C BC #### [facility] [address] [place] [address] Dr. Meron Gentile MCV (RBC) [Entitic vol] 87.2 fL Normal 80.0-94.0 [facility] Comment on above: Performed By: #### C BC #### [facility] [address] [place] [address] Dr. Meron Gentile MONO # 0.6 103/ul Normal 0.3-0.8 [facility] Comment on above: Performed By: #### C BC #### [facility] [address] [place] [address] Dr. Meron Gentile Monocytes/100 WBC (Bld) 7.5 % Normal 1.7-12.0 [facility] Comment on above: Performed By: #### C BC #### [facility] [address] [place] [address] Dr. Meron Gentile NEUT # 4.3 103/ul Normal 1.4-6.5 [facility] Comment on above: Performed By: #### C BC #### [facility] [address] [place] [address] Dr. Meron Gentile Neutrophils/100 WBC (Bld) 56.0 % Normal 43.0-75.0 The [facility] Comment on above: Performed By: #### C BC #### [facility] [address] [place] [address] Dr. Meron Gentile Platelet mean volume (Bld) [Entitic vol] 8.7 fL Critically low 9.5-13.5 [facility] Comment on above: Performed By: #### C BC #### [facility] [address] [place] [address] Dr. Meron Gentile PLT 290 103/ul Normal 150-450 [facility] Comment on above: Performed By: #### C BC #### [facility] [address] [place], [place] [address] Dr. Meron Gentile RBC 5.33 106/ul Normal 4.70-6.10 [facility] Comment on above: Performed By: #### C BC #### [facility] [address] [place], [place] [address] Dr. Meron Gentile WBC 7.7 103/ul Normal 4.0-11.0 [facility] Comment on above: Performed By: #### C BC #### [facility] [address] [place], [place] [address] Dr. Meron Gentile ECHOCARDIO M/2D COMPLETEon 0 09-25-2021 ECHOCARDIO M/2D COMPLETE Patient: JAYE HARVEY Exam Date: 09/25/2021 : 1980 Gender:M Ordering : DR URIEL NUNEZ . Admission #: [id number] Family : Order #: [id number] CLICK HERE TO VIEW EXAM ECHOCARDIOGRAM REPORT [...] Area(A4C): 23.10 cm2 Left Atrium Systolic Volume(A2C): 24946 mm3 Left Atrium Systolic Volume(A4C): 66105 mm3 Mitral Valve MV E to A [...] M.D. on 09/25/2021 at 16:59 Normal The [facility] FREE THYROXINE INDEX T7on FTI 2.58 Normal 1.30-4.50 [facility] Comment on above: Performed By: #### B MP, CRP #### [facility] [address] [place] [address] Dr. Meron Gentile T3U 34.0 % Normal 33.0-40.0 [facility] Comment on above: Performed By: #### B MP, CRP #### [facility] [address] [place] [address] Dr. Meron Gentile T4 [Mass/Vol] 7.60 ug/dL Normal 4.50-12.10 The [facility] Comment on above: Performed By: #### B MP, CRP #### [facility] [address] [place] [address] Dr. Meron Gentile GLYCOHEMOGLOBIN A1Con 2021 ADA RECOMMENDATION SEE BELOW Normal [facility] Comment on above: Result Comment: ADA RECOMMENDED LIMIT 4.0 - 6.0 ADA THERAPEUTIC TARGET < 7.0 ACTION SUGGESTED > 7.0 Performed By: #### C MADM, BMP #### [facility] [address] [place] [address] Dr. Meron Gentile Glucose [Mass/Vol] 111 mg/dL Normal [facility] Comment on above: Performed By: #### C MADM, BMP #### [facility] [address] [place] [address] Dr. Meron Gentile HbA1c (Bld) [Mass fraction] 5.5 % Normal 4.5-6.2 [facility] Comment on above: Performed By: #### C MADM, BMP #### [facility] [address] [place] [address] Dr. Meron Gentile LIPID PROFILEon 09-25-2021 CHOL-HDL RATIO NORM SEE BELOW Normal The [facility] Comment on above: Result Comment: 3.3 - 4.4 LOW RISK 4.4 - 7.1 AVERAGE RISK 7.1 - 11.0 MODERATE RISK >11.0 HIGH RISK Performed By: #### B MP, CRP #### [facility] [address] [place] [address] Dr. Meron Gentile Cholesterol [Mass/Vol] 257 mg/dL Critically high <=200 [facility] Comment on above: Performed By: #### B MP, CRP #### [facility] [address] [place] [address] Dr. Meron Gentile Cholesterol in HDL [Mass/Vol] 41 mg/dL Normal 40-60 [facility] Comment on above: Performed By: #### B MP, CRP #### [facility] [address] [place] [address] [address] Meron Gentile Cholesterol in LDL [Mass/Vol] 171.6 mg/dL Normal [facility] Comment on above: Performed By: #### B MP, CRP #### [facility] [address] [place] [address] [address] Meron Gentile Cholesterol.total/Chol esterol in HDL [Mass ratio] 6.3 {ratio} Normal [facility] Comment on above: Performed By: #### B MP, CRP #### [facility] [address] [place] [address] [address] Meron Gentile HDL NORMAL > or = 60 mg/dl - LO W CARDIOVASCULAR RISK <40 mg/dl - HIGH CARDIOVASCULAR RISK Normal [facility] Comment on above: Performed By: #### B MP, CRP #### [facility] [address] [place] [address] Dr. Meron Gentile LDL CALC NORMAL SEE BELOW Normal [facility] Comment on above: Result Comment: <100 mg/dl OPTIMAL 100 - 129 mg/dl NEAR OR ABOVE OPTIMAL 130 - 159 mg/dl BORDERLINE HIGH 160 - 189 mg/dl HIGH >190 mg/dl VERY HIGH Performed By: #### B MP, CRP #### [facility] [address] [place] [address] Dr. Meron Gentile Triglyceride [Mass/Vol] 222 mg/dL Critically high <=150 The [facility] Comment on above: Performed By: #### B MP, CRP #### [facility] [address] [place] [address] Dr. Meron Gentile VLDL CALC 44.4 mg/dL Normal [facility] Comment on above: Performed By: #### B MP, CRP #### [facility] [address] [place] [address] Dr. Meron Gentile PROF 14(COMP METB)on 022 Albumin [Mass/Vol] 3.7 g/dL Normal 3.4-5.0 [facility] Comment on above: Performed By: #### B MP, CRP #### [facility] [address] [place] [address] [address] Meron Gentile Albumin/Globulin [Mass ratio] 1.1 {ratio} Normal [facility] Comment on above: Performed By: #### B MP, CRP #### [facility] [address] [place] [address] [address] Meron Gentile ALP [Catalytic activity/Vol] 55 U/L Normal 46-116 [facility] Comment on above: Performed By: #### B MP, CRP #### [facility] [address] [place] [address] [address] Meron Gentile ALT [Catalytic activity/Vol] 60 U/L Normal 16-63 [facility] Comment on above: Performed By: #### B MP, CRP #### [facility] [address] [place] [address] Dr. Meron Gentile Anion gap [Moles/Vol] 11.5 mmol/L Normal [facility] Comment on above: Performed By: #### B MP, CRP #### [facility] [address] [place] [address] Dr. Meorn Gentile AST [Catalytic activity/Vol] 19 U/L Normal 15-37 [facility] Comment on above: Performed By: #### B MP, CRP #### [facility] [address] [place] [address] Dr. Meron Gentile Bilirubin [Mass/Vol] 0.4 mg/dL Normal 0.2-1.0 [facility] Comment on above: Performed By: #### B MP, CRP #### [facility] [address] [place] [address] Dr. Meron Gentile Calcium [Mass/Vol] 9.0 mg/dL Normal 8.5-10.1 [facility] Comment on above: Performed By: #### B MP, CRP #### [facility] [address] [place] [address] Dr. Meron Gentile Chloride [Moles/Vol] 100 mmol/L Normal 98-107 [facility] Comment on above: Performed By: #### B MP, CRP #### [facility] [address] [place] [address] [address] Meron Gentile CO2 [Moles/Vol] 29.4 mmol/L Normal 21.0-32.0 [facility] Comment on above: Performed By: #### B MP, CRP #### [facility] [address] [place] [address] [address] Meron Gentile Creatinine [Mass/Vol] 0.80 mg/dL Normal 0.70-1.30 The [facility] Comment on above: Performed By: #### B MP, CRP #### [facility] [address] [place] [address] Dr. Meron Gentile EGFR-AF GEORGIAN >60 Normal >=60 [facility] Comment on above: Performed By: #### B MP, CRP #### [facility] [address] [place] [address] Dr. Meron Gentile EGFR-NON AF GEORGIAN >60 Normal >=60 The [facility] Comment on above: Performed By: #### B MP, CRP #### [facility] [address] [place] [address] Dr. Meron Gentile Globulin (S) [Mass/Vol] 3.3 g/dL Normal [facility] Comment on above: Performed By: #### B MP, CRP #### [facility] [address] [place] [address] Dr. Meron Gentile Glucose [Mass/Vol] 124 mg/dL Critically high 74-106 T [facility] Comment on above: Performed By: #### B MP, CRP #### [facility] [address] [place] [address] Dr. Meron Gentile Potassium [Moles/Vol] 3.9 mmol/L Normal 3.5-5.1 The [facility] Comment on above: Performed By: #### B MP, CRP #### [facility] [address] [place] [address] Dr. Meron Gentile Protein [Mass/Vol] 7.0 g/dL Normal 6.4-8.2 The [facility] Comment on above: Performed By: #### B MP, CRP #### [facility] [facility] [address] [place] [address] Dr. Meron Gentile Sodium [Moles/Vol] 137 mmol/L Normal 136-145 [facility] Comment on above: Performed By: #### B MP, CRP #### [facility] [address] [place] [address] Dr. Meron Gentile Urea nitrogen [Mass/Vol] 10.0 mg/dL Normal 7.0-18.0 [facility] Comment on above: Performed By: #### B MP, CRP #### [facility] [address] [place] [address] Dr. Meron Gentile Urea nitrogen/Creatinine [Mass ratio] 12.5 mg/mg Normal [facility] Comment on above: Performed By: #### B MP, CRP #### [facility] [address] [place] [address] Dr. Meron Gentile TSHon 09-25-2021 TSH 4.858 uIU/mL Critically high 0.358-3.74 0 [facility] Comment on above: Performed By: #### B MP, CRP #### [facility] [address] [place] [address] Dr. Meron Gentile TSH RANGE SEE BELOW Normal The [facility] Comment on above: Result Comment: <0.3 4 UIU/ml HYPERTHYROID 0.34-5.60 UIU/ml EUTHYROID >5.60 UIU/ml HYPOTHYROID Performed By: #### B MP, CRP #### [facility] [address] [place] [address] Dr. Meron Gentile URIC ACID SERUMon 09-25-2021 Urate [Mass/Vol] 5.6 mg/dL Normal 3.5-7.2 [facility] Comment on above: Performed By: #### B MP, CRP #### [facility] [address] [place] [address] Dr. Meron Gentile US CAROTID ART BILon [...] by: MIRIAM DIAZ Date: 2021-09-25 10:43 Normal [facility] XR HUMERUS LT MIN 2Von 09-14 XR HUMERUS LT MIN 2V EXAM: XR HUMERUS LT MIN 2V HISTORY: Pain COMPARISON: None. TECHNIQUE: 2 views of the left humerus FINDINGS: No acute fracture seen. The soft tissues appear unremarkable. IMPRESSION: No acute fracture of the left humerus Electronically authenticated by: DOMINIC ROMERO Date: 2021-09-14 20:27 Normal [facility] Initial Visit (Neurosurgery) on 01-20-2018 Initial Visit (Neurosurgery) No report was sent Normal [employer] ED Provider Noteon 7 HIM IP Note OR Professor Sculpture Normal [facility] Vital Signs Date Time Vital Sign Value Performing Clinician Facility 10-13-2024 09:26-0400 Body height 177.8 cm Kanika Read APRN.CNP Work Phone: [facility] 10-13-2024 09:26-0400 Body mass index (BMI) [Ratio] 30.13 kg/m2 Kanika Read APRN.CNP Work Phone: [facility] 10-13-2024 09:26-0400 Body weight 95.25 kg Kanika Read APRN.CNP Work Phone: [facility] 10-13-2024 09:26-0400 Diastolic blood pressure 92 mm[Hg] Kanika Read APRN.DOOR AND ARRIVAL ATTENDANT Work Phone: [facility] 10-13-2024 09:26-0400 Heart rate 98 /min Kanika Read APRN.DOOR AND ARRIVAL ATTENDANT Work Phone: [facility] 10-13-2024 09:26-0400 SaO2% (BldA) [Mass fraction] 96 % Kanika Read APRN.CNP Work Phone: [facility] 10-13-2024 09:26-0400 Systolic blood pressure 138 mm[Hg] Kanika Read APRN.CNP Work Phone: [facility] 05-27-2024 08:13-0500 Body height 180.3 cm [facility] POSTMASTER RELIEF.DOOR AND ARRIVAL ATTENDANT Work Phone: [facility] 05-27-2024 08:13-0500 Body mass index (BMI) [Ratio] 30.68 kg/m2 [facility] POSTMASTER RELIEF.DOOR AND ARRIVAL ATTENDANT Work Phone: [facility] 05-27-2024 08:13-0500 Body weight 99.79 kg [facility] POSTMASTER RELIEF.DOOR AND ARRIVAL ATTENDANT Work Phone: [facility] 05-27-2024 08:13-0500 Heart rate 81 /min [facility] POSTMASTER RELIEF.DOOR AND ARRIVAL ATTENDANT Work Phone: [facility] 05-27-2024 08:13-0500 SaO2% (BldA) [Mass fraction] 98 % [facility] POSTMASTER RELIEF.DOOR AND ARRIVAL ATTENDANT Work Phone: [facility] 05-25-2024 09:59-0500 Body height 175.3 cm [facility] Work Phone: [facility] 05-25-2024 09:59-0500 Body mass index (BMI) [Ratio] 32.19 kg/m2 [facility] Work Phone: [facility] 05-25-2024 09:59-0500 Body weight 98.88 kg [facility] Work Phone: [facility] 05-23-2024 13:04-0500 Body height 175.3 cm [facility] Work Phone: [facility] 05-23-2024 13:04-0500 Body mass index (BMI) [Ratio] 32.19 kg/m2 [facility] Work Phone: [facility] 05-23-2024 13:04-0500 Body weight 98.88 kg [facility] Work Phone: [facility] 03-30-2024 16:31-0500 Body height 180.3 cm Krzysztof Krzysztof DO Work Phone: [facility] 03-30-2024 16:31-0500 Body mass index (BMI) [Ratio] 30.93 kg/m2 Krzysztof Krzysztof DO Work Phone: [facility] 03-30-2024 16:31-0500 Body weight 100.6 kg Krzysztof Krzysztof DO Work Phone: [facility] 03-30-2024 16:31-0500 Heart rate 110 /min Krzysztof Krzysztof DO Work Phone: [facility] 03-30-2024 16:31-0500 SaO2% (BldA) [Mass fraction] 96 % Krzysztof Krzysztof DO Work Phone: [facility] 01-19-2024 13:41-0400 Body height 177.8 cm Chester Madaiwyatt POSTMASTER RELIEF-DOOR AND ARRIVAL ATTENDANT Work Phone: [facility] 01-19-2024 13:41-0400 Body mass index (BMI) [Ratio] 32.05 kg/m2 Chester Madaiwyatt POSTMASTER RELIEF-DOOR AND ARRIVAL ATTENDANT Work Phone: [facility] 01-19-2024 13:41-0400 Body weight 101.33 kg Chester Madaiwyatt POSTMASTER RELIEF-DOOR AND ARRIVAL ATTENDANT Work Phone: [facility] 01-19-2024 13:41-0400 Diastolic blood pressure 88 mm[Hg] Chester Maher POSTMASTER RELIEF-DOOR AND ARRIVAL ATTENDANT Work Phone: [facility] 01-19-2024 13:41-0400 Heart rate 80 /min Chester Madaiwyatt POSTMASTER RELIEF-DOOR AND ARRIVAL ATTENDANT Work Phone: [facility] 01-19-2024 13:41-0400 Respiratory rate 18 /min Chester Nienberg POSTMASTER RELIEF-DOOR AND ARRIVAL ATTENDANT Work Phone: [facility] 01-19-2024 13:41-0400 SaO2% (BldA) [Mass fraction] 97 % Chester Madaiwyatt POSTMASTER RELIEF-DOOR AND ARRIVAL ATTENDANT Work Phone: [facility] 01-19-2024 13:41-0400 Systolic blood pressure 130 mm[Hg] Chester Maher POSTMASTER RELIEF-DOOR AND ARRIVAL ATTENDANT [facility] [employer] 12-01-2023 23:30-0400 Diastolic blood pressure 92 mm[Hg] Virgil Tasia [facility] 12-01-2023 23:30-0400 Heart rate 83 /min Virgil Tasia [facility] 12-01-2023 23:30-0400 Mean blood pressure 107 mm[Hg] Virgil Tasia [facility] 12-01-2023 23:30-0400 Nursing Progress Note Reason Other: calling for ride Virgil Tasia [facility] 12-01-2023 23:30-0400 SaO2% (BldA) [Mass fraction] 97 % Virgil Tasia [facility] 12-01-2023 23:30-0400 Systolic blood pressure 138 mm[Hg] Virgil Tasia [facility] 12-01-2023 23:29-0400 Diastolic blood pressure 92 mm[Hg] Virgil Tasia [facility] 12-01-2023 23:29-0400 Heart rate 83 /min Virgil Tasia [facility] 12-01-2023 23:29-0400 Respiratory rate 16 /min Virgil Tasia [facility] 12-01-2023 23:29-0400 SaO2% (BldA) [Mass fraction] 97 % Virgil Tasia [facility] 12-01-2023 23:29-0400 Systolic blood pressure 138 mm[Hg] Virgil Tasia [facility] 12-01-2023 22:32-0400 SaO2% (BldA) [Mass fraction] 97 % Virgil Tasia [facility] 12-01-2023 22:00-0400 Diastolic blood pressure 84 mm[Hg] Virgil Tasia [facility] 12-01-2023 22:00-0400 Mean blood pressure 102 mm[Hg] Virgil Tasia [facility] 12-01-2023 22:00-0400 Systolic blood pressure 137 mm[Hg] Virgil Tasia [facility] 12-01-2023 21:00-0400 Heart rate 91 /min Virgil Tasia [facility] 12-01-2023 19:32-0400 Body temperature 98.42 [degF] Virgil Tasia [facility] 12-01-2023 19:32-0400 Heart rate 94 /min Virgil Tasia [facility] 09-26-2023 11:00-0400 Diastolic blood pressure 70 mm[Hg] MD Uriel Nunez Work Phone: [facility] 09-26-2023 11:00-0400 Heart rate 84 /min MD Uriel Nunez Work Phone: [facility] 09-26-2023 11:00-0400 Respiratory rate 24 /min MD Uriel Nunez Work Phone: [facility] 09-26-2023 11:00-0400 SaO2% (BldA) [Mass fraction] 95 % MD Uriel Nunez Work Phone: [facility] 09-26-2023 11:00-0400 Systolic blood pressure 110 mm[Hg] MD rUiel Nunez Work Phone: [facility] 09-26-2023 09:00-0400 Inhaled oxygen flow rate 2 L/min MD Uriel Nunez Work Phone: [facility] 09-26-2023 08:00-0400 Body temperature 98.2 [degF] MD Uriel Nunez Work Phone: [facility] 09-26-2023 06:00-0400 Body weight 97.8 kg MD Uriel Nunez Work Phone: [facility] 09-24-2023 12:32-0400 Body height 180.34 cm MD Uriel Nunez Work Phone: [facility] 09-23-2023 22:37-0400 Heart rate 124 /min MD Uriel Nunez Work Phone: [facility] 09-23-2023 22:30-0400 Diastolic blood pressure 66 mm[Hg] MD Uriel Nunez Work Phone: [facility] 09-23-2023 22:30-0400 SaO2% (BldA) [Mass fraction] 93 % MD Uriel Nunez Work Phone: [facility] 09-23-2023 22:30-0400 Systolic blood pressure 101 mm[Hg] MD Uriel Nunez Work Phone: [facility] 09-23-2023 22:00-0400 Respiratory rate 20 /min MD Uriel Nuenz Work Phone: [facility] 09-23-2023 20:30-0400 Inhaled oxygen flow rate 2 L/min MD Uriel Nunez Work Phone: [facility] 09-23-2023 18:20-0400 Body height 180.34 cm MD Uriel Nunez Work Phone: [facility] 09-23-2023 18:20-0400 Body weight 96.8 kg MD Uriel Nunez Work Phone: [facility] 09-23-2023 18:13-0400 Body temperature 98 [degF] MD Uriel Nunez Work Phone: [facility] 08-26-2023 07:52-0400 Body height 177.8 cm Pacc 3 Work Phone: [facility] 08-26-2023 07:52-0400 Body temperature 97.7 [degF] Pacc 3 Work Phone: [facility] 08-26-2023 07:52-0400 Body weight 97.3 kg Pacc 3 Work Phone: [facility] 08-26-2023 07:52-0400 Diastolic blood pressure 90 mm[Hg] Pacc 3 Work Phone: [facility] 08-26-2023 07:52-0400 Heart rate 84 /min Pacc 3 Work Phone: [facility] 08-26-2023 07:52-0400 SaO2% (BldA) [Mass fraction] 98 % Pacc 3 Work Phone: [facility] 08-26-2023 07:52-0400 Systolic blood pressure 141 mm[Hg] Pacc 3 Work Phone: [facility] 04-22-2023 21:28-0500 Body temperature 97.52 [degF] Kaylinn Dokken [facility] 04-22-2023 21:28-0500 Diastolic blood pressure 70 mm[Hg] Kaylinn Dokken [facility] 04-22-2023 21:28-0500 Heart rate 100 /min Kaylinn Dokken [facility] 04-22-2023 21:28-0500 Respiratory rate 18 /min Kaylinn Dokken [facility] 04-22-2023 21:28-0500 SaO2% (BldA) [Mass fraction] 99 % Kaylinn Dokken [facility] 04-22-2023 21:28-0500 Systolic blood pressure 133 mm[Hg] Kaylinn Dokken [facility] 03-04-2023 10:09-0400 Blood Pressure Location Nahed Lue [facility] 03-04-2023 10:09-0400 Diastolic blood pressure 82 mm[Hg] Nahed Lue [facility] 03-04-2023 10:09-0400 Heart rate 78 /min Nahed Lue [facility] 03-04-2023 10:09-0400 Respiratory rate 16 /min Nahed Lue [facility] 03-04-2023 10:09-0400 Systolic blood pressure 124 mm[Hg] Nahed Lue [facility] 12-16-2022 14:39-0400 Body height 177.8 cm Lino South MD Work Phone: [facility] 12-16-2022 14:39-0400 Body weight 95.25 kg Lino South MD Work Phone: [facility] 12-16-2022 14:39-0400 Diastolic blood pressure 86 mm[Hg] Lino South MD Work Phone: [facility] 12-16-2022 14:39-0400 Heart rate 83 /min Lino South MD Work Phone: [facility] 12-16-2022 14:39-0400 SaO2% (BldA) [Mass fraction] 98 % Lino South MD Work Phone: [facility] 12-16-2022 14:39-0400 Systolic blood pressure 144 mm[Hg] Lino South MD Work Phone: [facility] 10-29-2022 22:34-0400 Body height 177.8 cm MD Uriel Nunez Work Phone: [facility] 10-29-2022 22:34-0400 Body temperature 98.2 [degF] MD Uriel Nunez Work Phone: [facility] 10-29-2022 22:34-0400 Body weight 100.85 kg MD Uriel Nunez Work Phone: [facility] 10-29-2022 22:34-0400 Diastolic blood pressure 86 mm[Hg] MD Uriel Nunez Work Phone: [facility] 10-29-2022 22:34-0400 Heart rate 98 /min MD Uriel Nunez Work Phone: [facility] 10-29-2022 22:34-0400 Respiratory rate 14 /min MD Uriel Nunez Work Phone: [facility] 10-29-2022 22:34-0400 SaO2% (BldA) [Mass fraction] 100 % MD Uriel Nunez Work Phone: [facility] 10-29-2022 22:34-0400 Systolic blood pressure 150 mm[Hg] MD Uriel Nunez Work Phone: [facility] 09-29-2022 13:10-0400 Blood Pressure Location Marilyn Nassar [facility] 09-29-2022 13:10-0400 Body temperature 98.06 [degF] Marilyn Nassar [facility] 09-29-2022 13:10-0400 Diastolic blood pressure 88 mm[Hg] Marilyn Nassar [facility] 09-29-2022 13:10-0400 Heart rate 82 /min Marilyn Nassar [facility] 09-29-2022 13:10-0400 Mean blood pressure 106 mm[Hg] Marilyn Nassar [facility] 09-29-2022 13:10-0400 Respiratory rate 16 /min Marilyn Nassar [facility] 09-29-2022 13:10-0400 SaO2% (BldA) [Mass fraction] 98 % Marilyn Nassar [facility] 09-29-2022 13:10-0400 Systolic blood pressure 142 mm[Hg] Marilyn Nassar [facility] 09-29-2022 12:00-0400 Body temperature 97.7 [degF] Marilyn Nassar [facility] 09-29-2022 12:00-0400 Diastolic blood pressure 84 mm[Hg] Marilyn Nassar [facility] 09-29-2022 12:00-0400 Heart rate 80 /min Marilyn Nassar [facility] 09-29-2022 12:00-0400 SaO2% (BldA) [Mass fraction] 95 % Marilyn Nassar [facility] 09-29-2022 12:00-0400 Systolic blood pressure 134 mm[Hg] Marilyn Nassar [facility] 09-29-2022 11:51-0400 Body temperature 97.52 [degF] Marilyn Nassar [facility] 09-29-2022 11:51-0400 Diastolic blood pressure 111 mm[Hg] Marilyn Nassar [facility] 09-29-2022 11:51-0400 Heart rate 83 /min Marilyn Nassar [facility] 09-29-2022 11:51-0400 Mean blood pressure 117 mm[Hg] Marilyn Nassar [facility] 09-29-2022 11:51-0400 Respiratory rate 17 /min Marilyn Nassar [facility] 09-29-2022 11:51-0400 SaO2% (BldA) [Mass fraction] 94 % Marilyn Nassar [facility] 09-29-2022 11:51-0400 Systolic blood pressure 129 mm[Hg] Marilyn Maday [facility] 09-29-2022 11:40-0400 Mean blood pressure 91 mm[Hg] Marilyn Maday [facility] 09-29-2022 11:40-0400 Respiratory rate 18 /min Marilyn Maday [facility] 09-29-2022 11:35-0400 Respiratory rate 16 /min Marilyn Maday [facility] 09-29-2022 11:26-0400 Body temperature 96.98 [degF] Marilyn Maday [facility] 09-29-2022 08:31-0400 Blood Pressure Location Marilyn Maday [facility] 09-29-2022 08:30-0400 Body temperature 97.52 [degF] Marilyn Maday [facility] 09-29-2022 08:30-0400 Heart rate 96 /min Marilyn Maday [facility] 09-29-2022 08:30-0400 Respiratory rate 18 /min Marilyn Maday [facility] 09-19-2022 13:12-0400 Diastolic blood pressure 86 mm[Hg] Marilyn Nassar [facility] 09-19-2022 13:12-0400 Heart rate 80 /min Marilyn Maday [facility] 09-19-2022 13:12-0400 Mean blood pressure 100 mm[Hg] Marilyn Nassar [facility] 09-19-2022 13:12-0400 Systolic blood pressure 127 mm[Hg] Marilyn Nassar [facility] 09-19-2022 13:12-0400 Blood Pressure Location Marilyn Nassar [facility] 09-19-2022 13:11-0400 Heart rate 82 /min Marilyn Nassar [facility] 09-19-2022 13:11-0400 SaO2% (BldA) [Mass fraction] 96 % Marilyn Nassar [facility] 09-19-2022 13:11-0400 Respiratory rate 16 /min Marilyn Nassar [facility] 09-19-2022 13:10-0400 Body temperature 98.24 [degF] Marilyn Nassar [facility] 09-19-2022 13:10-0400 Diastolic blood pressure 88 mm[Hg] Marilyn Nassar [facility] 09-19-2022 13:10-0400 Mean blood pressure 100 mm[Hg] Marilyn Nassar [facility] 09-19-2022 13:10-0400 Systolic blood pressure 125 mm[Hg] Marilyn Nassar [facility] 09-19-2022 13:10-0400 Blood Pressure Location Marilyn Nassar [facility] 01-07-2022 12:47-0400 Body height 180.3 cm Jose Angel Emery APRN.DOOR AND ARRIVAL ATTENDANT Work Phone: [facility] 01-07-2022 12:47-0400 Body weight 98.7 kg Jose Angel Emery APRN.DOOR AND ARRIVAL ATTENDANT Work Phone: [facility] 01-07-2022 12:47-0400 Diastolic blood pressure 77 mm[Hg] Jose Angel Emery APRN.DOOR AND ARRIVAL ATTENDANT Work Phone: [facility] 01-07-2022 12:47-0400 Heart rate 86 /min Jose Angel Emery APRN.DOOR AND ARRIVAL ATTENDANT Work Phone: [facility] 01-07-2022 12:47-0400 Respiratory rate 19 /min Jose Angel Emery APRN.DOOR AND ARRIVAL ATTENDANT Work Phone: [facility] 01-07-2022 12:47-0400 SaO2% (BldA) [Mass fraction] 98 % Jose Angel Emery APRN.DOOR AND ARRIVAL ATTENDANT Work Phone: [facility] 01-07-2022 12:47-0400 Systolic blood pressure 137 mm[Hg] Jose Angel Emery APRN.DOOR AND ARRIVAL ATTENDANT Work Phone: [facility] 08-20-2021 14:15-0400 Body height 180.3 cm Lino South MD Work Phone: [facility] 08-20-2021 14:15-0400 Body weight 98.88 kg Lino South MD Work Phone: [facility] 08-20-2021 14:15-0400 Diastolic blood pressure 87 mm[Hg] Lino South MD Work Phone: [facility] 08-20-2021 14:15-0400 Heart rate 104 /min Lino South MD Work Phone: [facility] 08-20-2021 14:15-0400 Respiratory rate 19 /min Lino South MD Work Phone: [facility] 08-20-2021 14:15-0400 SaO2% (BldA) [Mass fraction] 97 % Lino South MD Work Phone: [facility] 08-20-2021 14:15-0400 Systolic blood pressure 130 mm[Hg] Lino South MD Work Phone: [facility] Encounters Encounter Date Encounter Type Care Provider Facility Start: 02-09-2025 ambulatory Taiwo Jay acility:[facility] Start: 12-14-2024 End: 12-15-2024 Refill Bennett Denney PA-C Work Phone: Neurology Comment on above: Refill Request Start: 11-14-2024 End: 11-15-2024 Telephone encounter Lino South MD Work Phone: Neurology Comment on above: General (VNS - Voice Has Not Recovered) Start: 11-10-2024 End: 11-10-2024 ambulatory Krzysztof Wood Krzysztof DO Work Phone: Pain Management Comment on above: pain questionnaire Start: 11-10-2024 End: 11-10-2024 E-mail encounter from caregiver Krzysztof Cedeñogis DO Work Phone: Pain Management Start: 10-13-2024 End: 10-13-2024 Patient encounter procedure Kanika Read APRN.DOOR AND ARRIVAL ATTENDANT Work Phone: Neurology Comment on above: 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, intractable (HCC) (Primary Dx) Start: 10-13-2024 End: 10-13-2024 ambulatory URIEL NUNEZ Facility:[facility] Start: 10-03-2024 End: 10-03-2024 Telephone encounter Johann Borrero MD Work Phone: Neurosurgery Comment on above: Letter (Return to wo rk) Start: 09-28-2024 End: 09-28-2024 Telephone encounter Johann Borrero MD Work Phone: Neurology Comment on above: medication concern ( (ROBAXIN) ) Start: 09-27-2024 End: 09-27-2024 Chart abstracting César Horan PA-C Work Phone: Neurology Start: 09-25-2024 End: 09-25-2024 ambulatory Ariana Sebastian RN [employer] Comment on above: Patient Update Start: 09-25-2024 End: 09-25-2024 Patient encounter procedure Ariana Sebastian RN [employer] Comment on above: Clinical Update Start: 09-25-2024 End: 09-25-2024 Telephone encounter Darryl Beth DO Work Phone: Neurology Start: 09-25-2024 End: 09-27-2024 Evaluation and management of inpatient JOHANN BORRERO Facility:[facility] Start: 09-21-2024 End: 09-21-2024 Telephone encounter Krzysztof E Krzysztof DO Work Phone: Pain Management Comment on above: Procedure Follow Up (Right L5-S1 lumbar facet joint medial branch nerve radiofrequency ablation under fluoroscopic guidance. / /) Start: 09-21-2024 End: 09-21-2024 ambulatory [facility] Facility:[facility] Start: 09-19-2024 End: 09-19-2024 ambulatory KRZYSZTOF E KRZYSZTOF Facility:[facility] Start: 09-14-2024 End: 09-15-2024 Refill Monika Siddiqui PA-C Work Phone: Neurology Comment on above: Refill Request Start: 09-01-2024 End: 09-01-2024 Telephone encounter Krzysztof E Krzysztof DO Work Phone: Pain Management Comment on above: Post Op Start: 08-31-2024 End: 08-31-2024 [facility] Facility:[facility] Start: 08-18-2024 End: 08-18-2024 Telephone encounter Krzysztof E Krzysztof DO Work Phone: Pain Management Comment on above: pain procedure respo nse & follow up (Right Diagnostic L5-S1 Lumbar facet joint medial branch nerve block #1) Start: 08-17-2024 End: 08-17-2024 [facility] Facility:[facility] Start: 08-16-2024 End: 08-17-2024 Refill Dutch Love APRN.CNP Work Phone: Neurology Comment on above: Refill Request Start: 08-02-2024 End: 08-02-2024 [facility] Facility:[facility] Start: 07-29-2024 End: 07-29-2024 Telephone encounter Krzysztof [...] End: 07-27-2024 Telemedicine consultation with patient Krzysztof Nina Singletons DO Work Phone: Pain Management Start: 07-25-2024 End: 07-26-2024 ambulatory Krzysztof E Krzysztof DO Work Phone: Pain Management Start: 07-25-2024 End: 07-26-2024 Patient encounter procedure Krzysztof E Krzysztof DO Work Phone: Pain Management Comment on above: Set up appointment Start: 07-20-2024 End: 07-20-2024 Refill Dutch Love POSTMASTER RELIEF.DOOR AND ARRIVAL ATTENDANT Work Phone: Neurology Comment on above: Refill Request Start: 06-22-2024 End: 06-22-2024 ambulatory Jodi Denney APRN.DOOR AND ARRIVAL ATTENDANT Work Phone: Pain Management Start: 06-22-2024 End: 06-22-2024 Patient encounter procedure Jodi Denney POSTMASTER RELIEF.DOOR AND ARRIVAL ATTENDANT Work Phone: Pain Management Comment on above: Appointment Start: 06-15-2024 End: 06-15-2024 ambulatory URIEL Nallely MUNOZJesus Facility:[facility] Start: 06-08-2024 End: 06-09-2024 ambulatory Jodi Denney POSTMASTER RELIEF.DOOR AND ARRIVAL ATTENDANT Work Phone: Pain Management Comment on above: Jaye Harvey Start: 06-08-2024 End: 06-08-2024 Patient encounter procedure Jodi Denney POSTMASTER RELIEF.DOOR AND ARRIVAL ATTENDANT Work Phone: Pain Management Comment on above: Appointment Start: 06-08-2024 End: 06-08-2024 Telephone encounter Lino South MD Work Phone: Neurology Comment on above: Medication Problem ( May patient use Lyrica for his arthritis?) Start: 06-06-2024 End: 06-08-2024 Telephone encounter Jodi Denney POSTMASTER RELIEF.DOOR AND ARRIVAL ATTENDANT Work Phone: Pain Management Comment on above: Results Start: 06-01-2024 End: 06-13-2024 Telephone encounter Shawnee Jonas PT [facility] Comment on above: re: CX PT eval over MyChart; post Check-up; FU Start: 05-27-2024 End: 05-27-2024 Patient encounter procedure Yeimi Monae RT(R) Radiology Start: 05-27-2024 End: 05-27-2024 Subsequent hospital visit by physician Xr [facility] Radiology Comment on above: Neck pain [M54.2] Start: 05-27-2024 End: 05-27-2024 ambulatory Yeimi Monae RT(R) Radiology Comment on above: Radiology XR Start: 05-27-2024 End: 05-27-2024 Office outpatient visit 25 minutes Jodi Denney APRN.DOOR AND ARRIVAL ATTENDANT Work Phone: Pain Management Comment on above: Neck pain (Primary D x); Lumbar spondylolysis Start: 05-25-2024 End: 05-25-2024 Patient encounter procedure Paola Bre Arvizu PA Work Phone: [facility] Comment on above: Impingement of right shoulder (Primary Dx); Right shoulder pain, unspecified chronicity; Primary osteoarthritis of right shoulder Start: 05-25-2024 End: 05-25-2024 ambulatory PAOLA ARVIZU Not Available Start: 05-25-2024 End: 05-25-2024 ambulatory PAOLA ARVIZU Not Available Start: 05-24-2024 End: 05-24-2024 Telephone encounter Jodi Denney APRN.DOOR AND ARRIVAL ATTENDANT Work Phone: Pain Management Start: 05-24-2024 End: 05-24-2024 ambulatory URIEL Browning ALEXANDERJesus Facility:[facility] Start: 05-24-2024 End: 05-24-2024 Patient encounter procedure Jemima Purdy POSTMASTER RELIEF.DOOR AND ARRIVAL ATTENDANT Work Phone: Neurosurgery Comment on above: 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, intractable (HCC) (Primary Dx); 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 Start: 05-24-2024 End: 05-24-2024 Subsequent hospital visit by physician Mri 3 Radio Main Q (I-Stat/1.5t/3t) Work Phone: MRI Q Comment on above: Spinal stenosis of l umbar region without neurogenic claudication [M48.061] Start: 05-24-2024 End: 05-24-2024 ambulatory [facility] Facility:[facility] Start: 05-24-2024 End: 05-24-2024 Patient encounter procedure Jemima Purdy APRN.DOOR AND ARRIVAL ATTENDANT Work Phone: Neurosurgery Comment on above: 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, intractable (HCC) (Primary Dx); 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 Start: 05-23-2024 End: 05-23-2024 E-mail encounter from caregiver Jodi Denney POSTMASTER RELIEF.DOOR AND ARRIVAL ATTENDANT Work Phone: Pain Management Start: 05-23-2024 End: 05-23-2024 Patient encounter procedure Paola DE LA FUENTE Work Phone: [facility] Comment on above: Osteoarthritis of pa tellofemoral joints, bilateral (Primary Dx) Start: 05-23-2024 End: 05-23-2024 ambulatory Jodi Garcia Gera POSTMASTER RELIEF.DOOR AND ARRIVAL ATTENDANT Work Phone: Pain Management Comment on above: Pain Questionnaire Start: 05-17-2024 End: 05-19-2024 Refill Monika Siddiqui PA-C Work Phone: Neurology Comment on above: Refill Request Start: 04-01-2024 End: 04-01-2024 Telephone encounter Marilyn Finch RT(R) [facility] Comment on above: Orders Start: 03-30-2024 End: 03-30-2024 ambulatory [facility] Facility:[facility] Start: 03-30-2024 End: 03-30-2024 Patient encounter procedure Krzysztof E Krzysztof DO Work Phone: Pain Management Comment on above: Radiculopathy, lumbo sacral region (Primary Dx); Degeneration of intervertebral disc of lumbar region with discogenic back pain; Chronic bilateral low back pain with bilateral sciatica; Spinal stenosis of lumbar region without neurogenic claudication Start: 03-28-2024 End: 03-28-2024 Telephone encounter Krzysztof E Krzysztof DO Work Phone: Urology Comment on above: Appointment (Pain ma nagement/) Start: 03-26-2024 End: 03-26-2024 ambulatory Arvin Cifuentes RN NURSE GOLF SALES ASSOCIATE Comment on above: Numbness/Tingling Start: 03-26-2024 End: 03-26-2024 Chart abstracting Lucinda Oliveros MD Work Phone: Neurosurgery Start: 03-17-2024 End: 03-18-2024 Refill Dutch Love APRN.DOOR AND ARRIVAL ATTENDANT Work Phone: Neurology Comment on above: Refill Request Start: 03-16-2024 End: 03-16-2024 ambulatory Krzysztof Singletons DO Work Phone: Pain Management Comment on above: Pain Questionnaire Start: 03-16-2024 End: 03-16-2024 E-mail encounter from caregiver Krzysztof Blankenship DO Work Phone: Pain Management Start: 03-03-2024 End: 03-03-2024 Telephone encounter Johann Borrero MD Work Phone: Neurology Comment on above: Letter (Letter for w ork ) Start: 03-02-2024 End: 03-02-2024 Telephone encounter Lj Cabello HOOK AND EYE ATTACHER [facility] Comment on above: re: [...] Start: 03-01-2024 End: 03-01-2024 ambulatory No Pcp POSTMASTER RELIEF [facility] Start: 03-01-2024 End: 03-01-2024 Patient encounter procedure No Pcp POSTMASTER RELIEF [facility] Start: 03-01-2024 End: 03-09-2024 Telephone encounter Love Espinoza RN [facility] Start: 02-29-2024 End: 02-29-2024 ambulatory URIEL NUNEZ Facility:[facility] Start: 02-22-2024 End: 02-22-2024 Bamboo flowsheet Shawnee Jonas PT [facility] Start: 02-22-2024 End: 02-22-2024 Bamboo flowsheet Shawnee Jonas PT [facility] Start: 02-22-2024 End: 02-22-2024 ambulatory Shawnee Jonas PT [facility] Comment on above: Low back pain, unspe cified back pain laterality, unspecified chronicity, unspecified whether sciatica present (Primary Dx); Pain in thoracic spine; Other chronic pain Start: 02-18-2024 End: 02-18-2024 Telephone encounter Ramin Peacock HOOK AND EYE ATTACHER [facility] Start: 02-04-2024 End: 02-04-2024 [...] scheduling on. He said w/ appts w/ [facility] he'll wait till post Eval.) Start: 01-19-2024 End: 01-19-2024 ambulatory CHESTER MAHER [facility] Start: 01-19-2024 End: 01-19-2024 Office outpatient new 45 minutes Dania GARCIA Work Phone: [facility] Comment on above: Chronic thoracic spi ne pain (Primary Dx); Acute exacerbation of chronic low back pain; Chronic bilateral low back pain, unspecified whether sciatica present Start: 01-19-2024 End: 01-21-2024 Refill Inez Cordero PA-C Work Phone: Neurology Comment on above: Refill Request Start: 01-19-2024 End: 01-19-2024 ambulatory CHESTER MAHER [facility] Start: 12-28-2023 End: 12-28-2023 Emergency department patient visit URIEL NUNEZ [facility] Start: 12-28-2023 End: 12-28-2023 ambulatory URIEL NUNEZ Facility:[facility] Start: 12-01-2023 End: 12-02-2023 Emergency department patient visit Virgil Dozier [facility] Start: 11-23-2023 Telephone encounter [place] Neurology Comment on above: Social Work Services Start: 11-03-2023 End: 11-03-2023 ambulatory Kanika Read APRN.DOOR AND ARRIVAL ATTENDANT Work Phone: Neurology Comment on above: 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, intractable (HCC) (Primary Dx) Start: 11-03-2023 End: 11-03-2023 Admission to same day surgery center Aida Ervin PA-C Work Phone: Neurosurgery Comment on above: 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 (Primary Dx); Partial epilepsy with impairment of consciousness, intractable (HCC) Start: 11-03-2023 End: 11-03-2023 Telemedicine consultation with patient Aida Arcadio MANCUSO Work Phone: Neurosurgery Start: 11-01-2023 Refill Lizeth PICKARDNBradleyDOOR AND ARRIVAL ATTENDANT Work Phone: Neurology Comment on above: Refill Request Start: 10-13-2023 Refill Lino South MD Work Phone: Neurology Comment on above: Refill Request Social Work Services Start: 09-25-2023 Non-patient / Non-visit MD Jes Nunez Work Phone: [facility] Work Phone: Start: 09-24-2023 Non-patient / Non-visit MD Jes Nunez Work Phone: [facility] Pulmonary Disease Work Phone: Start: 09-23-2023 End: 09-26-2023 Evaluation and management of inpatient MD Uriel Nunez Work Phone: [facility] Work Phone: Start: 09-22-2023 Registered Recurring MD Johny Nunez Work Phone: [facility] Start: 09-17-2023 Admission to [facility] Provider Neurosurgery Comment on above: Suture Issues Start: 09-17-2023 E-mail encounter dre m caregiver [facility] Provider Neurosurgery Start: 09-17-2023 Telephone encounter Johann Borrero MD Work Phone: Neurology Comment on above: General (Stitch Abena ing Out Of Neck) Start: 08-26-2023 End: 08-26-2023 Nursing evaluation of patient and report Kristyn Quinteros RN Work Phone: Neurosurgery Comment on above: Focal epilepsy with impairment of consciousness, intractable (HCC) (Primary Dx) Start: 08-26-2023 End: 08-26-2023 Patient encounter status Xr [facility] Start: 08-26-2023 End: 08-26-2023 Subsequent hospital visit by physician Xr Chest Main A21 Radiology Comment on above: Preoperative testing [Z01.818] Start: 08-26-2023 End: 08-26-2023 PAT Pacc Main 3 Work Phone: Pre Anesthesia Comment [...] Start: 08-26-2023 End: 08-26-2023 Preprocedural examination done [facility] Main Work Phone: [facility] Work Phone: Start: 08-10-2023 Telephone encounter Johann Borrero MD Work Phone: Neurology Comment on above: Other (Surgery Time, Transportation) Start: 08-06-2023 Telephone encounter Lino voss MD Work Phone: Neurology Comment on above: Forms (bmv) Start: 08-05-2023 Admission to [facility] Johann Borrero MD Work Phone: Neurosurgery Comment on above: Schedule Surgery (VN S change) Start: 08-05-2023 ambulatory Johann ghosh MD Work Phone: [facility] Start: 08-05-2023 Patient encounter status Wayne Borrero MD Work Phone: [facility] Start: 08-05-2023 Telephone encounter Kristin jackson MD Work Phone: Neurosurgery Comment on above: Sql Application Developer - O ther Start: 08-03-2023 Telephone encounter [...] 07-16-2023 End: 07-17-2023 Emergency department patient visit ESTELA VARGAS [facility] Start: 07-12-2023 Non-patient / Non-visit MD Jes Nunez Work Phone: [facility] Work Phone: Start: 06-26-2023 Telephone encounter Geraldine gandara MD Work Phone: Neurology Comment on above: Medication Authoriza timartin Start: 06-24-2023 ambulatory URIEL NUNEZ Facility: [facility] Start: 06-24-2023 End: 06-24-2023 Subsequent hospital visit by physician Iop Team B [facility] Comment on above: Discharge Summary - Afua Rae [facility] - 06/24/2023 9:00 AM EST Summary: DBT [...] additional support at a local emergency room ([facility]) if needed, and has also been willing [...] included)... Start: 06-23-2023 ambulatory URIEL NUNEZ Facility: [facility] Start: 06-23-2023 End: 06-23-2023 Subsequent hospital visit by physician Iop Team B [facility] Start: 06-22-2023 ambulatory URIEL NUNEZ Facility: [facility] Start: 06-22-2023 End: 06-22-2023 Subsequent hospital visit by physician Iop Team B [facility] [place] Start: 06-19-2023 End: 06-19-2023 ambulatory Nahed Doran Facility:[facility] Start: 06-19-2023 End: 06-19-2023 Patient encounter procedure Nahed Doran [facility] Start: 06-18-2023 ambulatory URIEL NUNEZ Facility: [facility] Start: 06-18-2023 End: 06-18-2023 Subsequent hospital visit by physician Iop Team B [facility] Start: 06-17-2023 ambulatory URIEL NUNEZ Facility: [facility] Start: 06-17-2023 End: 06-17-2023 Subsequent hospital visit by physician Iop Team B [facility] Start: 06-16-2023 ambulatory URIEL NUNEZ Facility: [facility] Start: 06-16-2023 End: 06-16-2023 Subsequent hospital visit by physician Iop Team B [facility] Start: 06-15-2023 ambulatory URIEL M HOY Facility: [facility] Start: 06-15-2023 End: 06-15-2023 Subsequent hospital visit by physician Iop Team B [facility] Start: 06-11-2023 ambulatory URIEL M HOY Facility: [facility] Start: 06-11-2023 End: 06-11-2023 Subsequent hospital visit by physician Mya Tena APRN.DOOR AND ARRIVAL ATTENDANT Work Phone: [facility] Start: 06-09-2023 ambulatory URIEL M HOY Facility: [facility] Start: 06-09-2023 End: 06-09-2023 Subsequent hospital visit by physician Iop Team B [facility] Start: 06-08-2023 ambulatory URIEL M HOY Facility: [facility] Start: 06-08-2023 End: 06-08-2023 Subsequent hospital visit by physician Iop Team B [facility] Start: 06-05-2023 End: 06-05-2023 ambulatory NICK LA Facility:[facility] Start: 06-04-2023 ambulatory URIEL M HOY Facility: [facility] Start: 06-04-2023 End: 06-04-2023 Subsequent hospital visit by physician Iop Team B [facility] Start: 06-03-2023 ambulatory URIEL M HOY Facility: [facility] Start: 06-03-2023 End: 06-03-2023 Subsequent hospital visit by physician Iop Team B [facility] Start: 05-29-2023 ambulatory Nahed Doran Facility:[facility] Start: 05-28-2023 ambulatory URIEL M HOY Facility: [facility] Start: 05-27-2023 ambulatory URIEL M HOY Facility: [facility] Start: 05-27-2023 End: 05-27-2023 Subsequent hospital visit by physician Iop Team B [facility] Start: 05-27-2023 ambulatory URIEL M HOY Facility: [facility] Start: 05-27-2023 End: 05-27-2023 Subsequent hospital visit by physician Mya Tena APRN.DOOR AND ARRIVAL ATTENDANT Work Phone: [facility] Start: 05-26-2023 ambulatory URIEL M HOY Facility: [facility] Start: 05-26-2023 End: 05-26-2023 Subsequent hospital visit by physician Iop Team B [facility] Start: 05-25-2023 ambulatory URIEL M HOY Facility: [facility] Start: 05-25-2023 End: 05-25-2023 Subsequent hospital visit by physician Mya Tena APRN.DOOR AND ARRIVAL ATTENDANT Work Phone: [facility] Comment on above: Canceled (Pt cx: Radha cardenas in Condition, Sick) Start: 05-21-2023 ambulatory URIEL M HOY Facility: [facility] Start: 05-21-2023 End: 05-21-2023 Subsequent hospital visit by physician Iop Team B [facility] Start: 05-20-2023 ambulatory URIEL M HOY Facility: [facility] Start: 05-20-2023 End: 05-20-2023 Subsequent hospital visit by physician Iop Team B [facility] Start: 05-19-2023 ambulatory URIEL M HOY Facility: [facility] Start: 05-19-2023 End: 05-19-2023 Subsequent hospital visit by physician Iop Team B [facility] Start: 05-14-2023 ambulatory URIEL M HOY Facility: [facility] Start: 05-14-2023 End: 05-14-2023 Subsequent hospital visit by physician Iop Team B [facility] Start: 05-13-2023 ambulatory URIEL M HOY Facility: [facility] Start: 05-13-2023 End: 05-13-2023 Subsequent hospital visit by physician Iop Team B [facility] Start: 05-12-2023 ambulatory URIEL M HOY Facility: [facility] Start: 05-12-2023 End: 05-12-2023 Subsequent hospital visit by physician Josi Queen PA-C Work Phone: [facility] Start: 04-27-2023 ambulatory URIEL NUNEZ Facility: [facility] Start: 04-22-2023 End: 04-22-2023 Emergency department patient visit Issa Levy [facility] Start: 04-07-2023 Telephone encounter Lewis harding [facility] Work Phone: Psychiatry Comment on above: Patient Update Start: 03-26-2023 Refill Lino South MD Work Phone: Neurology Comment on above: Refill Request Start: 03-04-2023 End: 03-04-2023 ambulatory Nahed Doran Facility:[facility] Start: 03-04-2023 End: 03-04-2023 Lab Drop off Nahed Doran [facility] Start: 03-04-2023 End: 03-04-2023 ambulatory Nahed Fowlere Facility:[facility] Start: 03-04-2023 End: 03-04-2023 Patient encounter procedure Nahed Doran [facility] Start: 02-27-2023 End: 02-27-2023 ambulatory Geraldine Alonso MD Work Phone: Neurology Comment on above: Chronic migraine wit hout aura without status migrainosus, not intractable (Primary Dx) Start: 02-27-2023 End: 02-27-2023 Telemedicine consultation with patient Geraldine Alonso MD Work Phone: [facility] Start: 01-29-2023 End: 01-29-2023 ambulatory Geraldine Alonso MD Work Phone: Neurology Comment on above: Chronic migraine wit hout aura without status migrainosus, not intractable (Primary Dx) Start: 01-29-2023 End: 01-29-2023 Telemedicine consultation with patient Geraldine Alonso MD Work Phone: [facility] Start: 12-16-2022 Telephone encounter Lino voss MD [...] patient visit MD Uriel Nunez Work Phone: [facility] Work Phone: Start: 09-29-2022 End: 09-29-2022 Admission to same day surgery center Marilyn Nassar [facility] Start: 09-19-2022 ambulatory Facility:1 [id number] Start: 09-19-2022 End: 09-19-2022 Patient encounter procedure Marilyn Nassar [facility] Start: 09-17-2022 Telephone encounter Lino voss MD Work Phone: Neurology Comment on above: Letter (Surgery colton santiago) Start: 08-28-2022 ambulatory Lino South MD Work Phone: Neurology Comment on above: VNS Start: 08-12-2022 End: 08-12-2022 ambulatory GERALDINE ALONSO Facility:[facility] Start: 07-31-2022 Telephone encounter Lino voss [...] 01-07-2022 Patient encounter procedure Jose Angel Emery APRN.DOOR AND ARRIVAL ATTENDANT Work Phone: Neurosurgery Comment on above: S/P [...] Facili ty:[facility] Start: 10-04-2021 End: 10-04-2021 [facility] Lesviamontrell KRAUSYD Work Phone: Neurology Comment on above: Bipolar II disorder (HCC) (Primary Dx) Start: 09-27-2021 Telephone encounter Lesvia Robert KRAUSYD Work Phone: Neurology Comment on above: Appointment Start: 09-25-2021 End: 09-26-[address] URIEL NUNEZ . Facility: Start: 09-20-2021 Telephone encounter Lesvia Robert KRAUSYD Work Phone: Neurology Comment on above: Appointment Start: 09-14-2021 End: 09-14-[address] URIEL NUNEZ . 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 DESK [id number] [place] [address] [place] Start: 05-27-2024 Radex spine cervical 4 or 5 views Jodi Denney POSTMASTER RELIEF.DOOR AND ARRIVAL ATTENDANT Work Phone: Start: 05-25-2024 Radex shoulder compl [...] S/P medial meniscectomy of left knee Shawnee Jonas PT Start: 09-29-2022 Arthroscopy of knee Luiz Nassar Start: 01-07-2022 Radiologic exam ches t 2 views Aida Ervin PA-C Work Phone: Start: 01-07-2022 Radiologic examinati on neck soft tissue Aida Ervin PA-C Work Phone: Start: 09-25-[address] JOHNY NUNEZ . Comment on above: Performed By: #### C MADM, BMP #### [facility] [address] [place] [address] Dr. Meron Gentile Start: 06-20-2020 Lipid 1996 [...] - S jaspreet or Plasma Lipid Screening [facility] Start: 06-20-2025 Lipid panel Lipid Screening [facility] Start: 06-20-2025 LIPID SCREEN LIPID SCREEN [facility] Start: 01-18-2025 Adult BMI Screening Adult BMI Screen ing [facility] Start: 01-18-2025 Tobacco Screening Tobacco Screening [facility] Start: 01-16-2025 Influenza vaccination [facility] Start: 12-01-2024 End: 12-01-2024 Admission to same day surgery center 12/01/2024 1:00 PM EDT [facility] [address] [place] [address] Aida Ervin PA-C [address] [place] [id number] artial epilepsy with impairment of consciousness, intractable (HCC) Neurosurgery Comment on above: artial epilepsy with impairment of consciousness, intractable (HCC) Start: 11-29-2024 End: 11-29-2024 Patient encounter procedure 11/29/2024 10:30 AM EDT Office Visit Pain Management [address] [place] [address] [place] [address] [place] [address] RFA follow up, patient reuesting to be seen in [place] [facility] Comment on above: RFA follow up, patie nt reuesting to be seen in [place] Start: 11-02-2024 End: 11-02-2024 Patient encounter procedure 11/02/2024 10:00 AM EDT Office Visit Neurology [address] [place] [address] Bennett Denney PA-C [address] [facility] [address] [place] [address] Vagus Nerve Stimulation (VNS) Neurology Comment on above: Vagus Nerve Stimulat ion (VNS) Start: 10-13-2024 End: 10-13-2024 Patient encounter procedure 10/13/2024 9:30 AM EDT Office Visit Neurology [address] [place] [address] Kanika Read APRN.DOOR AND ARRIVAL ATTENDANT [address] [place] [address] Vagus Nerve Stimulation (VNS) - device needs to be turned up Neurology Comment on above: Vagus Nerve Stimulat ion (VNS) - device needs to be turned up Start: 09-19-2024 End: 09-19-2024 Admission to same day surgery center 09/19/2024 9:00 AM EDT - 09/19/2024 9:33 AM EDT Surgery Procedures [address] [place] [address] [place] [address] [place] [address] DESTRUCTION BY NEUROLYTIC AGENT PARAVERTEBRAL FACET JOINT [...] physician 08/31/2024 Hospital Encounter Ambulatory Surgery [address] [place] [address] Krzysztof, [place] [address] [place] [address] Lumbosacral spondylosis without myelopathy [M47.817], Degeneration of [...] 11:28 AM EDT Surgery Ambulatory Surgery [address] [place] [address] [place] [address] [place] [address] BLOCK JOINT FACET LUMBAR OR SACRAL WITH C-ARM Ambulatory Surgery Comment on above: BLOCK JOINT FACET KAYLA MBAR OR SACRAL WITH C-ARM Start: 08-17-2024 End: 08-17-2024 Njx dx/ther agt pvrt facet jt lmbr/sac 1 level [facility] [place] Start: 08-17-2024 Subsequent hospital visit by physician 08/17/2024 11:00 AM EDT Hospital Encounter Ambulatory Surgery [address] [place] [address] [place] [address] [place] [address] Lumbosacral spondylosis without myelopathy [M47.817], Degeneration of intervertebral disc of lumbar region with discogenic back pain [M51.360] Ambulatory Surgery Comment on above: Lumbosacral spondylo sis without myelopathy [M47.817], Degeneration of intervertebral disc of lumbar region with discogenic back pain [M51.360] Start: 08-05-2024 End: 08-05-2024 ambulatory 08/05/2024 9:30 AM EDT [facility] [address] [place] [address] Jodi Denney, POSTMASTER RELIEF.DOOR AND ARRIVAL ATTENDANT [address] [place] [address] 10 week VV Pain Management Comment on above: 10 week VV Start: 07-27-2024 End: 07-27-2024 ambulatory 07/27/2024 5:00 PM EDT [facility] [address] [place] [address] [place] [address] [place] [address] re-eval Pain Management Comment on above: re-eval Start: 07-06-2024 End: 07-06-2024 Patient encounter procedure 07/06/2024 10:30 AM EST Office Visit [facility] [address] [place] [address] Paola Arvizu PA [address] [place] [address] [facility] Start: 06-28-2024 End: 06-28-2024 Follow-up encounter 06/28/2024 12:00 PM EST [facility] [address] [facility] [place] [address] [place] [address] [address]ES [address] [place] [address] follow up Pain Management Comment on above: follow up Start: 06-16-2024 End: 06-16-2024 ambulatory 06/16/2024 11:00 AM EST Evaluation [facility] [address] [facility] [address] [place] [address] Brian Mancilla, PT [address] [facility] [address] [place] [address] [facility] Start: 05-27-2024 End: 05-27-2024 Patient encounter procedure 05/27/2024 8:00 AM EST Office Visit Pain Management [address] [facility] [place] [address] Jodi Denney, POSTMASTER RELIEF.DOOR AND ARRIVAL ATTENDANT [address] [facility] [place] [address] follow up after mri Pain Management Comment on above: follow up after mri Start: 05-25-2024 End: 05-25-2024 Patient encounter procedure 05/25/2024 10:15 AM EST Office Visit [facility] [address] [address] Paola Arivzu PA [address] [place] [address] [facility] Start: 05-24-2024 End: 05-24-2024 Patient encounter procedure MRI Q Comment on above: DUE TO PT IMPLANT- I F APPT NEEDS TO BE RESCHEDULED IT MUST BE SENT TO THE FOLLOWING STAFF MESSAGE ADDRESS: IMAGING IMPLANTS [[id number]]. VNS, approved to schedule by Tim. VNS turn on Start: 05-24-2024 End: 05-24-2024 Patient encounter procedure 05/24/2024 8:30 AM EST Office Visit Neurosurgery [address] [place] [address] Jemima Purdy APRN.DOOR AND ARRIVAL ATTENDANT [address] [place] [address] VNS Turn off Neurosurgery Comment on above: VNS Turn off Start: 03-30-2024 End: 03-30-2024 Patient encounter procedure 03/30/2024 4:30 PM EST Office Visit Pain Management [address] [place] [address] [place] [address] [facility] [address] [place], [place] [id number] M51.360 (ICD-10-CM) - Degeneration of intervertebral disc of lumbar region with discogenic back pain Pain Management Comment on above: M51.360 (ICD-10-CM) - Degeneration of intervertebral disc of lumbar region with discogenic back pain Start: 03-09-2024 End: 03-09-2024 ambulatory 03/09/2024 10:00 AM EDT Treatment [facility] [address] [id number] Shawnee Jonas, PT [facility] Start: 03-07-2024 End: 03-07-2024 ambulatory 03/07/2024 9:30 AM EDT Treatment [facility] [address] [facility] [address] [place] [address] Shawnee Jonas, PT [facility] Start: 03-02-2024 End: 03-02-2024 ambulatory 03/02/2024 9:30 AM EDT Treatment [facility] [address] [place] [address] Lj Cabello, HOOK AND EYE ATTACHER [facility] Start: 03-01-2024 End: 03-01-2024 Patient encounter procedure 03/01/2024 8:15 AM EDT Office Visit [facility] [address] [place] [id number] Chester aMher, POSTMASTER RELIEF-DOOR AND ARRIVAL ATTENDANT [address] [place] [address] [facility] Start: 02-29-2024 End: 02-29-2024 ambulatory 02/29/2024 10:00 AM EDT Treatment [facility] [address] [place] [address] Lj Cabello HOOK AND EYE ATTACHER [facility] Start: 02-24-2024 End: 02-24-2024 ambulatory 02/24/2024 9:30 AM EDT Treatment [facility] [address] [place] [address] Lj Cabello, HOOK AND EYE ATTACHER [facility] Start: 02-22-2024 End: 02-22-2024 ambulatory [facility] Comment on above: Arrived Start: 02-15-2024 End: 02-15-2024 Patient encounter procedure 02/15/2024 11:00 AM EDT Office Visit [facility] [address] [place] [phone] Paola Arvizu PA [address] [place] [address] [facility] Start: 01-17-2024 Covid-19 Vaccine () Covid-19 Vaccine () [facility] Start: 01-17-2024 Covid-19 Vaccine ( season) Covid-19 Vaccine ( season) [facility] Start: 01-17-2024 Influenza vaccination [facility] Start: 11-03-2023 End: 02-02-2024 LACOSAMIDE LACOSAMIDE Lab Routine Partial epilepsy with impairment of consciousness, intractable (HCC) Expected: 11/03/2023, Expires: 02/02/2024 [facility] Work Phone: Comment on above: Expected: 11/03/2023 , Expires: 02/02/2024 Start: 11-03-2023 End: 11-03-2023 Patient encounter procedure Neurology Comment on above: follow up f/u Start: 09-28-2023 End: 09-28-2023 Admission to same day surgery center 09/28/2023 11:30 AM EDT [facility] Neurosurgery [address] [id number] Aida Ervin PA-C [address] [place] [address] POST-OP 6WKS Neurosurgery Comment on above: POST-OP 6WKS Start: 09-26-2023 [facility] Start: 09-25-2023 Referral to psychiatrist [facility] Start: 09-23-2023 Consultation [facility] Start: 09-23-2023 Hospital admission [facility] Start: 08-26-2023 End: 11-25-2023 aPTT in Platelet poor plasma by Coagulation assay ACTIVATED PTT Lab Routine Encounter for therapeutic drug level monitoring Expected: 08/26/2023, Expires: 11/25/2023 [facility] Work Phone: Comment on above: Expected: 08/26/2023 , Expires: 11/25/2023 Start: 08-26-2023 End: 11-25-2023 CBC panel - Blood by Automated count CBC Lab Routine Preoperative testing Expected: 08/26/2023, Expires: 11/25/2023 [facility] Work Phone: Comment on above: Expected: 08/26/2023 , Expires: 11/25/2023 Start: 08-26-2023 End: 11-25-2023 Comprehensive metabolic 2000 panel - Serum or Plasma COMP METABOLIC PANEL Lab Routine Preoperative testing Expected: 08/26/2023, Expires: 11/25/2023 [facility] Work Phone: Comment on above: Expected: 08/26/2023 , Expires: 11/25/2023 Start: 08-26-2023 End: 11-25-2023 PT panel - Platelet poor plasma by Coagulation assay PROTHROMBIN TIME/PT Lab Routine Encounter for therapeutic drug level monitoring Expected: 08/26/2023, Expires: 11/25/2023 [facility] Work Phone: Comment on above: Expected: 08/26/2023 , Expires: 11/25/2023 Start: 08-26-2023 End: 02-01-2024 STAPH AUREUS PCR STAPH AUREUS PCR Lab Routine Preoperative testing Expected: 08/26/2023, Expires: 02/01/2024 [facility] Work Phone: Comment on above: Expected: 08/26/2023 , Expires: 02/01/2024 Start: 08-03-2023 End: 11-02-2023 LACOSAMIDE LACOSAMIDE Lab Routine Partial epilepsy with impairment of consciousness, intractable (HCC) Expected: 08/03/2023, Expires: 11/02/2023 [facility] Work Phone: Comment on above: Expected: 08/03/2023 , Expires: 11/02/2023 Start: 01-16-2023 Covid-19 Vaccine ( season) Covid-19 Vaccine () [facility] Start: 01-16-2023 Influenza vaccination [facility] Start: 10-29-2022 Radiologic examinati on of knee XR knee LT 4V* [facility] Start: 01-16-2022 Influenza vaccination C [facility] Start: 08-09-2021 COVID-19 VACCINE (3 - Booster for Pfizer series) COVID-19 VACCINE (3 - Booster for Pfizer series) [facility] Start: 05-06-2021 COVID-19 VACCINE (3 - Booster for Pfizer series) COVID-19 VACCINE (3 - Booster for Pfizer series) [facility] Start: 05-06-2021 COVID-19 VACCINE (3 - Pfizer series) COVID-19 VACCINE (3 - Pfizer series) [facility] Start: 02-15-2006 Medicare Annual Well ness Visit Medicare Annual Wellness Visit [facility] Start: 2001 DTaP,Tdap and Td Vaccines (1 - Tdap) DTaP,Tdap and Td Vaccines (1 - Tdap) [facility] Start: 2001 Hepatitis B Vaccine (1 of 3 - 19+ 3-dose series) Hepatitis B Vaccine (1 of 3 - 19+ 3-dose series) [facility] Start: 2001 Urine microalbumin profile [facility] Start: 2000 Adult BMI Follow Up Plan Adult BMI Follow Up Plan [facility] Start: 2000 Annual PCP Team [place] Disease Visit Annual PCP Team Chronic Disease Visit [facility] Start: 2000 BP Controlled (<130/80) BP Controlle d (<130/80) [facility] Start: 1994 Depression Screening Depression Scre ening [facility] Start: 1982 HEPATITIS B (1 of 3 - 3-dose series) HEPATITIS B (1 of 3 - 3-dose series) [facility] Start: 1982 Hepatitis B Vaccine (1 of 3 - 3-dose series) Hepatitis B Vaccine (1 of 3 - 3-dose series) [facility] Dstr nrolytc agnt parverteb fct sngl lmbr/sacral DESTRUCTION BY NEUROLYTIC AGENT PARAVERTEBRAL FACET JOINT NERVE(S) LUMBAR SINGLE FACET JOINT W/IMAGE GUIDANCE FLUORO OR CT Lumbosacral spondylosis without myelopathy Degeneration of intervertebral disc of lumbar region with discogenic back pain AV ENDO ECG COMPLETE ECG COMPLETE ECG Routine Pre-op evaluation 08/26/2023 8:52 AM EDT [facility] Work Phone: End: 04-29-2025 MR Lumbar spine WO contrast MRI LUMBAR SPINE WO IVCON Radiology Routine Spinal stenosis of lumbar region without neurogenic claudication 1 Occurrences starting 03/30/2024 until 04/29/2025 [facility] Work Phone: Comment on above: 1 Occurrences starti ng 03/30/2024 until 04/29/2025 Njx dx/ther agt pvrt facet jt lmbr/sac 1 level [facility] [place] Patient referral [facility] Work Phone: Procalcitonin [Mass/volume] in Serum or Plasma [facility] REFER FOR ADMIT INTERVIEW REFER FOR ADMIT INTERVIEW Procedures Routine Preoperative testing Ordered: 08/05/2023 [facility] Work Phone: Comment on above: Ordered: 08/05/2023 End: 09-03-2024 XR Chest PA and Lateral XR CHEST 2V FRONTAL/LAT Radiology Routine Preoperative testing 1 Occurrences starting 08/05/2023 until 09/03/2024 [facility] Work Phone: Comment on above: 1 Occurrences starti ng 08/05/2023 until 09/03/2024 End: 01-18-2025 XR Lumbar spine 2 or 3 Views X-ray spine lumbar 2 or 3 views Imaging Routine Chronic bilateral low back pain, unspecified whether sciatica present 1 Occurrences starting 01/19/2024 until 01/18/2025 [facility] Work Phone: Comment on above: 1 Occurrences starti ng 01/19/2024 until 01/18/2025 XR Lumbar spine 2 or 3 Views X-ray spine lumbar 2 or 3 views Imaging Routine Chronic bilateral low back pain, unspecified whether sciatica present 01/19/2024 2:57 PM EDT [facility] End: 09-03-2024 XR Neck AP and Lateral XR NECK SOFT TISSUE 2V AP/LAT Radiology Routine Preoperative testing 1 Occurrences starting 08/05/2023 until 09/03/2024 [facility] Work Phone: Comment on above: 1 Occurrences starti ng 08/05/2023 until 09/03/2024 [facility] Immunizations Immunization Date Immunization Notes Care Provider Fa cility 03-11-2021 SARS-CoV-2 (COVID-19 ) mRNA BNT-162b2 vax Nahed Lue [facility] Comment on above: Result Comment: 2022: TPVALL 02-18-2021 SARS-CoV-2 (COVID-19 ) mRNA BNT-162b2 vax Nahed Lue [facility] Comment on above: Result Comment: 2022: TPVALL Payers Date Payer Category Payer Self-pay [id number] 2017 Medicaid MEDICAID [facility] MEDICAID [id number] 2017-Present [phone] [address] [place] [address] Medicaid [id number] 2017 Medicaid [id number] [id number] [id number] 2014 Medicare [id number] 2005 Medicare MEDICARE MEDICAR E A AND B [id number] 2005-Present [phone] [address] [address] [place] [address] Medicare [id number] [id number] 2005 Medicare [id number] 1.13.159.2.7.3.6 [id number] 1982 Unknown [id number] 2.16.840.1.130014.3.579.2.59 1982 Unknown [id number] 2.16.840.1.347255.3.579.2.59 1982 Unknown [id number] 2.16.840.1.964921.3.579.259 1982 Unknown [id number] 2.16.840.1.885746.3.579.259 1982 Unknown [id number] 2.840.1.839454.3.579.259 1982 Unknown [id number] 2.840.1.965202.3.579.259 1982 Unknown [id number] 2.840.1.516000.3.579.259 1982 Unknown [id number] 2.840.1.821002.3.579.2.356 1982 Unknown [id number] 2.840.1.577863.3.579.272 1982 Unknown [id number] 2.840.1.638797.3.579.272 1982 Unknown [id number] 2.840.1.216852.3.579.272 1982 Unknown [id number] 2.840.1.730290.3.579.272 1982 Unknown [id number] 2.840.1.222601.3.579.272 1982 Unknown [id number] 2.840.1.063927.3.579.272 1982 Unknown [id number] 2.16840.1.128652.3.579.2 1982 Unknown [id number] 2.16.840.1.860102.3.579.2.1286 1982 Unknown [id number] 2.16840.1.109757.3.579.2128 1982 Unknown [id number] 2.16.840.1.795670.3.579.2.1285 1982 Unknown [id number] 2.16.840.1.103243.3.579.2.1285 1982 Unknown [id number] 2.16.840.1.562327.3.579.2.1285 1982 Unknown [id number] 2.16.840.1.866976.3.579.2.1285 1982 Unknown [id number] 2.16.840.1.630614.3.579.2.1258 1982 Unknown [id number] 2.16.840.1.573239.3.579.2.1258 1982 Unknown [id number] 2.16.840.1.949431.3.579.2.1258 1982 Unknown [id number] 2.16840.1.577366.3.579.2.1258 1982 Unknown [id number] 2.16.840.1.961213.3.579.2.9 1959 Medicaid [id number] 1957 Medicare [id number] 1959 Self-pay [id number] Unknown [id number] 2.16.840.1.564997.3.579.2.531 Social History Date Type Detail Facility Start: 07-31-2010 End: 01-02-2011 Tobacco smoking status IDIS Never smoked tobacco [facility] Start: 07-31-2010 End: 01-02-2011 Tobacco use and exposure Smokeless tobacco non-user [facility] Start: 08-20-2021 End: 05-27-2024 Alcohol intake Current non-drinker of alcohol (finding) [facility] Start: 1980 Sex Assigned At Not on file [facility] Start: 08-19-2021 End: 01-07-2022 Exposure to SARS-CoV-2 (event) Not sure [facility] Tobacco smoking status No Smokin g Status Entered [facility] Start: 10-27-2022 End: 08-31-2024 Sex Assigned At Male [facility] Start: 1980 Sex Assigned At Male F [facility] Start: 10-27-2022 End: 08-31-2024 History of Social function [facility] Adult Depression Screening Assessment 3 [facility] Start: 11-09-2023 Alcoholic beverage intake Ex-drinker (finding) [facility] Start: 10-29-2022 Alcohol Comment soda/pop 2-3 c ups per day [facility] Start: 05-23-2024 Tobacco use and exposure Former smokeless tobacco user [facility] Start: 01-19-2024 End: 05-23-2024 Alcoholic beverage intake Lifetime non-drinker (finding) [facility] Start: 12-21-2014 Sex Male (finding) [facility] Medical Equipment Procedure Code Equipment Code Equipment Origin al Text Equipment Identifier Dates Generator Vns Th erapy Aspirehc Neurostimulator Epilepsy Sterile - [id number] Start: 02-04-2018 Bbi-[employer] Im plant - [id number] Start: 04-01-2016 Comment on above: Description: GENERATOR VNS THERAPY ASPIR EHC NEUROSTIMULATOR EPILEPSY STERILE Lead Vns Therapy 2mm Silicone 43cm Neurostimulator 1 Pin Bipolar Model - [id number] Start: 09-20-2020 Generator Vns Th erapy Aspiresr Thk7mm Neurostimulator 14cc 1 Pin Lead - [id number] Start: 05-16-2019 Generator Vns Th erapy Aspiresr Thk7mm Neurostimulator 14cc 1 Pin Lead - [id number] Start: 06-28-2020 Generator Vns Th erapy Aspiresr Thk7mm Neurostimulator 14cc 1 Pin Lead - [id number] Start: 09-20-2020 Generator Vns Th erapy Aspiresr Thk7mm Neurostimulator 14cc 1 Pin Lead - [id number] Start: 08-31-2023 Generator Vns Th erapy Aspiresr Thk7mm Neurostimulator 14cc 1 Pin Lead - [id number] Start: 09-26-2024 Goals Date Patient Goal Desired Activity /State Functional Status Date Assessment Result Facility 12-01-2023 Functional Status N/A [facility] 09-26-2023 Functional status Patient at Baseline [facility] Work Phone: 09-24-2023 Functional status Functional Sta tus Comment pt not able to answer all question. Mom and sister at the bedside [facility] Work Phone: 04-22-2023 Functional Status N/A [facility] 03-04-2023 Functional Status N/A [facility] 09-19-2022 Functional Status No [facility] 09-21-2020 Are you deaf, or do you have serious difficulty hearing No 09/21/2020 11:16 AM Gris Dunne, NICHOLAS [facility] 09-21-2020 Are you blind, or do you have serious difficulty seeing, even when wearing glasses No 09/21/2020 11:16 AM Gris Dunne, RN No [facility] 09-21-2020 Do you have serious difficulty walking or climbing stairs No 09/21/2020 11:16 AM Gris Dunne, RN [facility] 09-21-2020 Do you have difficul ty dressing or bathing No 09/21/2020 11:16 AM Gris Dunne, RN No [facility] 09-21-2020 Because of a physica l, mental, or emotional condition, do you have difficulty doing errands alone such as visiting a physician's office or shopping No 09/21/2020 11:16 AM Gris Dunne, RN No [facility] Mental Status Date Assessment Result Facility 09-26-2023 Cognitive function Cognitive Sta tus Patient at Baseline [facility] Work Phone: 09-21-2020 Because of a physica l, mental, or emotional condition, do you have serious difficulty concentrating, remembering, or making decisions No 09/21/2020 11:16 AM Gris Dunne, RN No [facility] Clinical Notes 04-07-2016 to 12-15-2024 Telephone Encounter - Aziza Gutiérrez PA-C - 12/15/2024 4:21 PM EDTTelephone Encounter - Aziza Gutiérrez PA-C - 12/15/2024 4:21 PM EDTTelephone Encounter - Aida Ervin PA-C - 11/15/2024 1:41 PM EDT Note Date & Type Note Facility 12-15-2024 Telephone encounter Note The following approved medication requests have been transmitted electronically. Requested Prescriptions Signed Prescriptions Disp Refills clonazePAM (KLONOPIN) 2 mg tablet 90 tablet 5 Sig: Take 1 tablet by mouth three times a day for 180 days. Authorizing Provider: AZIZA GUTIÉRREZ lacosamide (VIMPAT) 100 mg tab 60 tablet 5 Sig: Take 1 tablet by mouth every 12 hours for 180 days. Authorizing Provider: AZIZA GUTIÉRREZ PA-C [facility] 12-15-2024 Miscellaneous Notes The following approved medication requests have been transmitted electronically. Requested Prescriptions Signed Prescriptions Disp Refills clonazePAM (KLONOPIN) 2 mg tablet 90 tablet 5 Sig: Take 1 tablet by mouth three times a day for 180 days. Authorizing Provider: AZIZA GUTIÉRREZ lacosamide (VIMPAT) 100 mg tab 60 tablet 5 Sig: Take 1 tablet by mouth every 12 hours for 180 days. Authorizing Provider: AZIZA GUTIÉRREZ PA-C Prescription Refill: Requested by: pharmacy Please E-Scribe Caller Contact Number: yareli Pharmacy Name: [facility] Number: [phone] Generic/ brand: generic 30 or 90 day supply requested: 90 Last appointment: 10/13/2024 Next Appointment: none Patient of Dr. Maury Harvey [id number] [address] [place], [place] [id number] documented in this encounter [facility] 12-15-2024 Telephone encounter Note Prescription Refill: Requested by: pharmacy Please E-Scribe Caller Contact Number: yareli Pharmacy Name: [facility] Number: [phone] Generic/ brand: generic 30 or 90 day supply requested: 90 Last appointment: 10/13/2024 Next Appointment: none Patient of Dr. Maury Harvey [id number] [address] [place] [id number] [facility] 11-15-2024 Telephone encounter Note Spoke with Jaye would rather have VV with EMIGDIO has appointment line and will call and make appointment with ENT Geovanna Milian RN [facility] 11-15-2024 Miscellaneous Notes Spoke with Jaye would rather have VV with EMIG[facility]IO has appointment line and will call and make appointment with ENT Geovanna Milian RN He can have a virtual visit with me on 12/01, no need for in person appt unless he prefers to come in person. Recommend referral to ENT for further workup of vocal issues. Order placed. Spoke with Jaye is having problems with maintaining a normal [...] message sent to schedule routed for review/recommendations Geovanna Milian RN Jaye Harvey returned call to NICHOLAS Murphy. Patient awaiting call back at [phone] Dr. Borrero: 09/26/2024: Left replacement of Vagal nerve stimulator electrode Left voicemail for pt. To return call Dayan Kontt RN General call : Full name of person calling: Jaye Harvey Relationship to patient: self Phone # : [phone] Reason for call: Patient states his voice has not recovered since VNS implanted [address] of Dr. Souht/Adair documented in this encounter [facility] 11-15-2024 Telephone encounter Note He can have a virtual visit with me on 12/01, no need for in person appt unless he prefers to come in person. Recommend referral to ENT for further workup of vocal issues. Order placed. [facility] 11-15-2024 Telephone encounter Note Spoke with Jaye is having problems with maintaining a normal [...] message sent to schedule routed for review/recommendations Geovanna Milian RN [facility] 11-15-2024 Telephone encounter Note Jaye Harvey returned call to NICHOLAS Murphy. Patient awaiting call back at [phone] [facility] 11-15-[address] Borrero: 09/26/2024: Left replacement of Vagal nerve stimulator electrode Left voicemail for pt. To return call Dayan Knott RN [facility] 11-14-2024 Telephone encounter Note General call : Full name of person calling: Jaye Harvey Relationship to patient: self Phone # : [phone] Reason for call: Patient states his voice has not recovered since VNS implanted [address] South/Adair [facility] 10-19-2024 Note HNO ID: [id number] Author: SOBEIDA GALVAN MD Service: ? Author Type: Physician Type: Progress Notes Filed: 10/19/2024 11:19 Note Text: NO SHOW [facility] 10-13-2024 History of Present illness Narrative [facility] CHIEF COMPLAINT: seizures HISTORY OF PRESENT ILLNESS: Jaye Harvey is a 44 year old male with history of medically intractable epilepsy since age 5 s/p replacement of left VNS generator and re-tunneling of left vagal nerve electrode on 08/31/23, as well as 09/25/[address] Borrero who presents for VNS interrogation/adjustment. He is a patient of Dr. Lino South, last seen by myself on 11/03/2023, and as above, most recently by Dr. Borrero during admission to [facility] 09/25/2024 for VNS reimplantation. No seizures since last visit, last 2012. He remains on LCM 100 mg BID and KLP 2 mg TID. He notes anxiety recently, following w/ Dr. Rider. He is following w/ pain mgmt for chronic back pain, recently had L5-S1 ablation. Reports feeling better since procedure. Notes ongoing migraines, plans to discuss w/ DANIEL team. He works at [employer]. Drives. VNS returned to previous settings, patient tolerated well. AspireSR M106 S/N: [id number] Implant Date: 09/26/2024 Lead impedence: [place], 2293 Ohms Battery: 75-100% Output current 0.25 mAmps >> 1.625 Signal frequency 20 Hz >> 25 Pulse width 250 msec >> 500 Signal on time 30 sec Signal off time 5 min >> 0.8 minutes Duty Cycle: 44% Magnet current 1.875 mAmps Magnet on time 60 sec Magnet pulse width 500 msec Per A. ENZO Purdy 05/24/2024: VNS Stimulation Interrogation VNS Information VNS Model Number SenTiva [id number] VNS Serial Number [id number] Date of Implantation August 31, 2023 Stimulation [...] or problems with the image (Done at [facility] and not available for review). His VNS is working well on his current evaluation today. He has a history of anxiety, obstructive sleep apnea, migraines and medically intractable left temporal lobe epilepsy, diagnosed in 2004 at [facility]. He did not want to pursue surgery at that time due to concerns of memory decline and had a VNS implanted. He has had multiple revisions, the last of which was in 01/2013 at [facility]. He feels that his VNS has stopped working because his auras have returned, but his battery is at 75%. His PCP Dr. Nunez who has been managing his epilepsy locally referred him back to [facility] to discuss further options. He [...] 12 hours for 90 days. rizatriptan (MAXALT NAIL FEEDER) [address] 1 TABLET [...] and PS 4-8cmh2O. His DME company is [employer] to fit patient preference, ramp, humidification and unlimited supplies Please send us machine download in 1 month CPAP Please send us machine download in 1 month Cetirizine 10 mg cap Take 1-2 tablets by mouth as needed. fluticasone (FLONASE) 50 mcg/actuation nasal spray Use 1 [place] in each nostril twice daily. albuterol HFA (PROVENTIL HFA, VENTOLIN HFA) 90 mcg/actuation inhaler Inhale 1-2 Puffs as instructed as needed for Wheezing/Shortness of Breath. No current facility-administered medications for this visit. NEUROLOGICAL EXAM: nonfocal PREVIOUS EVALUATIONS: Video EEG, CC, 09/20/2020: Mr. [...] abnormality ? ASSESSMENT: Jaye Harvey is a 44 year old male with [...] or problems with the image (Done at [facility] and not available for review). His [...] follow up in [address] South A total of 30 minutes was spent [...] the patient's questions. ? Kanika Read APRN.CNP October 13, 2024 documented in this encounter [facility] 10-13-2024 Note HNO ID: [id number] Author: KANIKA READ APRN.CNP Service: ? Author Type: Nurse Practitioner Type: Progress Notes Filed: 10/13/2024 12:47 Note Text: [facility] CHIEF COMPLAINT: seizures HISTORY OF PRESENT ILLNESS: Jaye Harvey is a 44 year old male with history of medically intractable epilepsy since age 5 s/p replacement of left VNS generator and re-tunneling of left vagal nerve electrode on 08/31/23, as well as 09/25/[address] Borrero who presents for VNS interrogation/adjustment. He is a patient of Dr. Lino South, last seen by myself on 11/03/2023, and as above, most recently by Dr. Borrero during admission to [facility] 09/25/2024 for VNS reimplantation. No seizures since last visit, last 2012. He remains on LCM 100 mg BID and KLP 2 mg TID. He notes anxiety recently, following w/ Dr. Rider. He is following w/ pain mgmt for chronic back pain, recently had L5-S1 ablation. Reports feeling better since procedure. Notes ongoing migraines, plans to discuss w/ DANIEL team. He works at [employer]. Drives. VNS returned to previous settings, patient tolerated well. AspireSR M106 S/N: [id number] Implant Date: 09/26/2024 Lead impedence: [place], 2293 Ohms Battery: 75-100% Output current 0.25 mAmps >> 1.625 Signal frequency 20 Hz >> 25 Pulse width 250 msec >> 500 Signal on time 30 sec Signal off time 5 min >> 0.8 minutes Duty Cycle: 44% Magnet current 1.875 mAmps Magnet on time 60 sec Magnet pulse width 500 msec Per A. ENZO Purdy 05/24/2024: VNS Stimulation Interrogation VNS Information VNS Model Number SenTiva M1000 VNS Serial Number [id number] Date of Implantation August 31, 2023 Stimulation [...] or problems with the image (Done at [facility] and not available for review). His VNS is working well on his current evaluation today. He has a history of anxiety, obstructive sleep apnea, migraines and medically intractable left temporal lobe epilepsy, diagnosed in 2004 at [facility]. He did not want to pursue surgery at that time due to concerns of memory decline and had a VNS implanted. He has had multiple revisions, the last of which was in 01/2013 at [facility]. He feels that his VNS has stopped working because his auras have returned, but his battery is at 75%. His PCP Dr. Nunez who has been managing his epilepsy locally referred him back to [facility] to discuss further options. He [...] a day. clonazePAM (KLONOPIN) 2 mg tablet Bernardo (more content not included)... [facility] 10-03-2024 Telephone encounter Note Letter completed via [employer], copy sent to pt. Via [employer] as requested. Dayan Knott RN [facility] 10-03-2024 Miscellaneous Notes Letter completed via [employer], copy sent to pt. Via [employer] as requested. Dayan Knott RN Dr. Borrero: 09/26/2024: Left replacement of Vagal nerve stimulator electrode Spoke to pt. Who states his job is requesting a more specific work letter to include dates which I reviewed with Jaye. 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 Also requesting lifting restriction weight to be included in letter. Will draft letter to complete. Dayan Knott RN General call : Full name of person calling: Jaye Harvey Relationship to patient: self Phone # : [phone] Reason for call: Patient called and wants to speak with the office about the return to work letter. Letter does not have return date and needs mor Information about lifting. Patient of Dr. Borrero documented in this encounter [facility] 10-03-[address] Borrero: 09/26/2024: Left replacement of Vagal nerve stimulator electrode Spoke to pt. Who states his job is requesting a more specific work letter to include dates which I reviewed with Jaye. 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 Also requesting lifting restriction weight to be included in letter. Will draft letter to complete. Dayan Knott RN [facility] 10-03-2024 Telephone encounter Note General call : Full name of person calling: Jaye Harvey Relationship to patient: self Phone # : [phone] Reason for call: Patient called and wants to speak with the office about the return to work letter. Letter does not have return date and needs mor Information about lifting. Patient of Dr. Borrero [place] [id number] Telephone encounter Note Reviewed with pt. Who states understanding. Dayan Knott RN [facility] 09-28-2024 Miscellaneous Notes Reviewed with pt. Who states understanding. Dayan Knott RN The following approved medication requests have been transmitted electronically. Requested Prescriptions Signed Prescriptions Disp Refills traMADol (ULTRAM) 50 mg tablet 15 tablet 0 Sig: Take 1 tablet by mouth every 8 hours as needed for pain for up to 5 days. Authorizing Provider: AIDA ERVIN PA-C September 28, 2024 4:05 PM PDMP website checked and validated. All prescriptions have been APPROPRIATELY filled. No suspicious activity was identified. 09/28/2024 by Aida Ervin PA-C Small script of tramadol sent to patient's pharmacy. He should take this medication as needed for breakthrough pain. continue robaxin as well. 09/25/2024-09/27/2024 Dr. Borrero VNS Pt. C/o pain / started night of 09/27 after hospital discharge describes burning sensation on neck incision, has been taking Robaxin as prescribed. States tylenol has never worked in the past for any type of pain. Requesting a stronger pain medication. Routed to Aida Knott RN Medication Concern Person Calling Jaye Harvey (home) Name of medication (ROBAXIN) Concern with medication need somethimh else for pain, robaxin is not helping. Patient of Dr. Martinez documented in this encounter [facility] 09-28-2024 Telephone encounter Note The following approved medication requests have been transmitted electronically. Requested Prescriptions Signed Prescriptions Disp Refills traMADol (ULTRAM) 50 mg tablet 15 tablet 0 Sig: Take 1 tablet by mouth every 8 hours as needed for pain for up to 5 days. Authorizing Provider: AIDA ERVIN PA-C September 28, 2024 4:05 PM PDMP website checked and validated. All prescriptions have been APPROPRIATELY filled. No suspicious activity was identified. 09/28/2024 by Aida Ervin PA-C Small script of tramadol sent to patient's pharmacy. He should take this medication as needed for breakthrough pain. continue robaxin as well. [facility] 09-28-2024 Telephone encounter Note 09/25/2024-09/27/2024 Dr. Borrero VNS Pt. C/o pain 11/24 started night of 09/27 after hospital discharge describes burning sensation on neck incision, has been taking Robaxin as prescribed. States tylenol has never worked in the past for any type of pain. Requesting a stronger pain medication. Routed to Aida Knott RN [facility] 09-28-2024 Telephone encounter Note Medication Concern Person Calling Jaye Harvey (home) Name of medication (ROBAXIN) Concern with medication need somethimh else for pain, robaxin is not helping. Patient of Dr. Martinez [facility] 09-27-2024 Note HNO ID: [id number] Author: CÉSAR HORAN PA-C Service: ? Author Type: Physician Videotape Sales Representative Type: Progress Notes Filed: 09/27/2024 14:01 Note Text: Vagus Nerve Stimulator 09/25/2024 09/25/2024 09/27/2024 Vagus Nerve Stimulator Date Placed 08/31/2023 08/31/2023 09/26/2024 Model Number AspireSR M106 AspireSR M106 AspireSR M106 Serial Number [id number] 09/25/2024 09/25/2024 09/27/2024 VNS Normal Output Current [...] surgery yesterday. Requested outpatient appointment with epilepsy EMIGIDO in 2 weeks for further device up-titration of current settings. César Horan PA-C September 27, 2024 [facility] 09-27-2024 History of Present illness Narrative Vagus Nerve Stimulator 09/25/2024 09/25/2024 09/27/2024 Vagus Nerve Stimulator Date Placed 08/31/2023 08/31/2023 09/26/2024 Model Number AspireSR M106 AspireSR M106 AspireSR M106 Serial Number [id number] 09/25/2024 09/25/2024 09/27/2024 VNS Normal Output Current [...] surgery yesterday. Requested outpatient appointment with epilepsy EMIGDIO in 2 weeks for further device up-titration of current settings. César Horan PA-C September 27, 2024 documented in this encounter [facility] 09-27-2024 Note HNO ID: [id number] Author: CÉSAR HORAN PA-C Service: Neurology Adult Epilepsy Author Type: Physician Videotape Sales Representative Type: Procedures Filed: 09/27/2024 13:58 Note Text: Vagus Nerve Stimulator 09/25/2024 09/25/2024 09/27/2024 Vagus Nerve Stimulator Date Placed 08/31/2023 08/31/2023 09/26/2024 Model Number AspireSR M106 AspireSR M106 AspireSR M106 Serial Number [id number] 09/25/2024 09/25/2024 09/27/2024 VNS Normal Output Current (mA) 1.625 0 0.25 Signal Frequency (Hz) 25 25 20 Pulse Width (microseconds) 500 500 250 Signal ON Time (seconds) 30 30 30 Signal OFF Time (minutes) 0.8 0.8 09/25/2024 09/25/2024 09/27/2024 VNS Autostim Output Current [...] no issues with VNS since surgery yesterday César Horan PA-C September 27, 2024 [facility] 09-27-2024 Note HNO ID: [id number] Author: CAMMY ROCA ? Service: Pharmacy Author Type: Vault Cashier Type: Plan of Care Filed: 09/27/2024 13:22 Note Text: PHARMACY BEDSIDE DELIVERY SERVICE Patient Name: Jaye Harvey The marked outpatient medications were Filled at: [facility] and delivered to the patient's bedside [...] and PS 4-8cmh2O. His DME company is [employer] mask to fit patient preference, ramp, humidification [...] mg disintegrating tablet Commonly known as: MAXALT NAIL FEEDER PLACE 1 TABLET ON TONGUE AND ALLOW [...] mg tablet Commonly known as: CORLESD Cammy Roca PAGER: September 27, 2024 1:21 PM [facility] 09-27-2024 Note HNO ID: [id number] Author: CAMMY ROCA ? Service: Pharmacy Author Type: Vault Cashier Type: Plan of Care Filed: 09/27/2024 13:21 Note Text: Insurance investigation completed Patient has active prescription insurance: Yes - Patient's insurance is in-network with F Insurance loaded into [place]: Yes Test claim was completed to verify insurance is active: Successful Any questions, please reach out to your medication electrical accessories ii assembler. [facility] 09-27-2024 Note HNO ID: [id number] Author: TONA FIERRO LSW Service: Care Management Author Type: Financial Recording Clerk Type: Care Mgt Initial Assessment Filed: 09/27/2024 09:44 Note Text: CARE MANAGEMENT: ASSESSMENT AND DISCHARGE PLAN SERVICE DATE: September 27, 2024 SERVICE TIME: 9:44 AM PCP: Uriel Nunez MD Primary Contact: Extended Emergency Contact Information Primary Emergency Contact: Jayjay Ornelas Address: [place] [address] Mobile Relation: Mother Secondary Emergency Contact: Nida Ribeiro [facility] Mobile Relation: Sister Admission Status: Inpatient Insurance Provider: MEDICARE A AND B Discharge Planning requested by: Per Department Practice Potential Transition Plans Advance Directives Current Advance Directive: None Clinic Assistant Attempted to Assist with AD Completion: Yes Action: Education Provided How do you manage to accomplish the following: Independent: Ambulation, Bathe/Shower, Dress, Meals/Meal Prep, Going to the bathroom, Medication Management, Transportation to appointments/community Discharge Planning Patient Goal(s): The patient/family expressed post-acute services are not needed at this time. [place] of Choice Explained: [place] of Choice Given: No Reason Not Given: [...] Case Management. SIGNATURE: JEYSON Kathleen PATIENT NAME: Jaye Harvey DATE: September 27, 2024 TIME: 9:44 AM [facility] 09-26-2024 Note HNO ID: [id number] Author: ERNIE TORRES MD Service: ? Author Type: Resident Type: Progress Notes Filed: 09/26/2024 15:51 Note Text: Neurosurgery Postop Check Note: Name: Jaye Harvey Procedure: Left replacement of Vagal nerve stimulator electrodes and IPG EXAM: E3M6V4, AANDO*2, emerging PERRL FS, TM BUE 4/4 BLE 3/3 dressing c/d/i Plan: 43 year old ambidextrous (originally right-handed) male with PMH HLD, ADHD, anxiety, depression, bipolar II, MRE s/p L VNS ( in [place]) and multiple replacements (last 08/31/2023, Dr. Borrero) presenting to [facility] after reporting a painful electrical sensation over left neck and feeling like throat was closing. Magnet was placed over VNS which resolved symptoms. Transferred to [facility] for VNS evaluation. POD0 Left VNS revision - NSGY SDU - XR Chest - Seizure precautions - Epilepsy consulted alreadty - OK for Diet - hold anti-platelet/anti-coagulation - SCDs for DVT prophylaxis only - SBP < 160 mmHg - ancef post op ppx until d/c tomorrow. Ernie Torres MD PhD Epilepsy Surgery Fellow September 26, 2024 Pager [phone] After 6pm please page [phone] [facility] 09-26-2024 Note HNO ID: [id number] Author: PAVEL JIMENEZ DO Service: ? Author [...] difficult SIGNATURE: Pavel Jimenez DO PATIENT NAME: Jaye Harvey DATE: September 26, 2024 TIME: 1:19 PM CSN: [id number] [facility] 09-25-2024 Note SARS-COV-2 (AGENT OF COVID-19) RNA: Not detected INFLUENZA A RNA: Not detected INFLUENZA B RNA: Not detected RESPIRATORY SYNCYTIAL VIRUS (RSV) RNA: Not detected [facility] Comment on above: Performed By: #### 9 [id number] ####[facility] LABCLIA [id number] [address] 09-25-2024 Note HNO ID: [id number] Author: SHELBY AMBRIZ PA-C Service: Neurology Adult Epilepsy Author Type: Physician Videotape Sales Representative Type: Procedures Filed: 09/25/2024 11:24 Note Text: VNS INTERROGATION WITH REPROGRAMMIN09/25/2024 09/25/2024 Vagus Nerve Stimulator Date Placed 08/31/2023 08/31/2023 Model Number AspireSR M106 AspireSR M106 Serial Number [id number] 09/25/2024 09/25/2024 VNS Normal Output Current (mA) [...] OFF Shelby Ambriz PA-C September 25, 2024 [facility] 09-25-2024 Telephone encounter Note Patient calling in concerned that he will not be able to be transferred to [facility]. Attempted to transfer patient to [facility] and pt disconnected the line. [facility] 09-25-2024 Miscellaneous Notes Patient calling in concerned that he will not be able to be transferred to [facility]. Attempted to transfer patient to [facility] and pt disconnected the line. documented in this encounter [facility] 09-25-2024 Telephone encounter Note Images from the original note were not included. EPILEPSY PLAN OF CARE NOTE Patient: Jaye Harvey Date: September 25, 2024 Time: 2:[address] South- last seen by Donald LINDQUIST on 11/03/2023. [...] he has no way to come to [facility] main campus and states that if he goes to local hospital they will just tell him to follow up outpatient . Discussed he should go to the nearest ED and instructed him to have them call to arrange for transfer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 07/11/2023) [address]2016 History of Past illness Narrative* Problem Noted Date Diagnosed Date Resolved Date Acute respiratory failure 04/07/2016 documented as of this encounter (statuses as of 07/12/2023) [address]2016 History of Past illness Narrative* Problem Noted Date Diagnosed Date Resolved Date Acute respiratory failure 04/07/2016 documented as of this encounter (statuses as of 07/13/2023) [address]2016 History of Past illness Narrative* Problem Noted Date Diagnosed Date Resolved Date Acute respiratory failure 04/07/2016 documented as of this encounter (statuses as of 07/13/2023) [address]2016 History of Past illness Narrative* Problem Noted Date Diagnosed Date Resolved Date Acute respiratory failure 04/07/2016 documented as of this encounter (statuses as of 07/16/2023) [address]2016 History of Past illness Narrative* Problem Noted Date Diagnosed Date Resolved Date Acute respiratory failure 04/07/2016 documented as of this encounter (statuses as of 07/20/2023) [address]2016 History of Past illness Narrative* Problem Noted Date Diagnosed Date Resolved Date Acute respiratory failure 04/07/2016 documented as of this encounter (statuses as of 07/21/2023) [address]2016 History of Past illness Narrative* Problem Noted Date Diagnosed Date Resolved Date Acute respiratory failure 04/07/2016 documented as of this encounter (statuses as of 07/25/2023) [address]2016 History of Past illness Narrative* Problem Noted Date Diagnosed Date Resolved Date Acute respiratory failure 04/07/2016 documented as of this encounter (statuses as of 07/26/2023) [address]2016 History of Past illness Narrative* Problem Noted Date Diagnosed Date Resolved Date Acute respiratory failure 04/07/2016 documented as of this encounter (statuses as of 07/28/2023) [address]2016 History of Past illness Narrative* Problem Noted Date Diagnosed Date Resolved Date Acute respiratory failure 04/07/2016 documented as of this encounter (statuses as of 07/28/2023) [address]2016 History of Past illness Narrative* Problem Noted Date Diagnosed Date Resolved Date Acute respiratory failure 04/07/2016 documented as of this encounter (statuses as of 07/29/2023) [address]2016 History of Past illness Narrative* Problem Noted Date Diagnosed Date Resolved Date Acute respiratory failure 04/07/2016 documented as of this encounter (statuses as of 08/01/2023) [address]2016 History of Past illness Narrative* Problem Noted Date Diagnosed Date Resolved Date Acute respiratory failure 04/07/2016 documented as of this encounter (statuses as of 08/02/2023) [address]2016 History of Past illness Narrative* Problem Noted Date Diagnosed Date Resolved Date Acute respiratory failure 04/07/2016 documented as of this encounter (statuses as of 08/03/2023) [address]2016 History of Past illness Narrative* Problem Noted Date Diagnosed Date Resolved Date Acute respiratory failure 04/07/2016 documented as of this encounter (statuses as of 08/03/2023) [address]2016 History of Past illness Narrative* Problem Noted Date Diagnosed Date Resolved Date Acute respiratory failure 04/07/2016 documented as of this encounter (statuses as of 08/04/2023) [address]2016 History of Past illness Narrative* Problem Noted Date Diagnosed Date Resolved Date Acute respiratory failure 04/07/2016 documented as of this encounter (statuses as of 08/05/2023) [address]2016 History of Past illness Narrative* Problem Noted Date Diagnosed Date Resolved Date Acute respiratory failure 04/07/2016 documented as of this encounter (statuses as of 08/05/2023) [address]2016 History of Past illness Narrative* Problem Noted Date Diagnosed Date Resolved Date Acute respiratory failure 04/07/2016 documented as of this encounter (statuses as of 08/08/2023) [address]2016 History of Past illness Narrative* Problem Noted Date Diagnosed Date Resolved Date Acute respiratory failure 04/07/2016 documented as of this encounter (statuses as of 08/09/2023) [address]2016 History of Past illness Narrative* Problem Noted Date Diagnosed Date Resolved Date Acute respiratory failure 04/07/2016 documented as of this encounter (statuses as of 08/10/2023) [address]2016 History of Past illness Narrative* Problem Noted Date Diagnosed Date Resolved Date Acute respiratory failure 04/07/2016 documented as of this encounter (statuses as of 08/10/2023) [address]2016 History of Past illness Narrative* Problem Noted Date Diagnosed Date Resolved Date Acute respiratory failure 04/07/2016 documented as of this encounter (statuses as of 08/11/2023) [address]2016 History of Past illness Narrative* Problem Noted Date Diagnosed Date Resolved Date Acute respiratory failure 04/07/2016 documented as of this encounter (statuses as of 08/20/2023) [address]2016 History of Past illness Narrative* Problem Noted Date Diagnosed Date Resolved Date Acute respiratory failure 04/07/2016 documented as of this encounter (statuses as of 08/27/2023) [address]2016 History of Past illness Narrative* Problem Noted Date Diagnosed Date Resolved Date Acute respiratory failure 04/07/2016 documented as of this encounter (statuses as of 08/27/2023) [address]2016 History of Past illness Narrative* Problem Noted Date Diagnosed Date Resolved Date Acute respiratory failure 04/07/2016 documented as of this encounter (statuses as of 08/27/2023) [address]2016 History of Past illness Narrative* Problem Noted Date Diagnosed Date Resolved Date Acute respiratory failure 04/07/2016 documented as of this encounter (statuses as of 08/27/2023) [facility] Tai[facility] September 25, 2023 2:49pm Note Date/Time September 25, 2023 2:49p m [facility] [address] [place] [address] Psychiatry Consult Note Signed Patient: Jaye Harvey MR#: [id number] : 1980 Acct:[id number] Age/Sex: 42 / M Adm Date: 4 Loc: Room: [address] [place] [address] Type : ADM IN Attending Dr: Mary [...] of the patient around 1555 that said hollise. She said that she found 2 bottles [...] follow with neurology, psychiatry, psychology with the [facility]. He has a vagal nerve stimulation device for his seizures. He also does see [facility] counseling 3 times a week. Upon questioning [...] He [facility]. He said he was previously hospitalized at and a psychiatrist prescribed for him Pristiq back then whichworsened his seizures. 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 nightly Attempting to obtain records from [facility] neurology and psychiatry on patient's past medication [...] <Electronically signed by Taiwo Trujillo MD> 09/25/23 4130 [facility] Work Phone: Discharge summary Author Mary Calhoun [facility] September 26, 2023 10:49am Note Date/Time September 26, 2023 10:49 am [facility] [address] [place] [address] Discharge Summary Signed Patient: Jaye Harvey MR#: [id number] : 1980 Acct:[id number] Age/Sex: 42 / M Adm Date: 4 Loc: Room: [address] [place] [address]: Mary Calhoun MD Copies to: [...] post recent vagal nerve stimulator implantation at [facility] in August 2023 Obstructive sleep apnea on BiPAP at home, not very compliant, recommended to bring BiPAP machine from home and resume it Summary Hospital Course Hospital course: 42 years old male with a history of epilepsy, status post recent vagal nerve stimulator implantation at [facility], presented with suicidal attempt with clonazepam [...] to be transferred to psych unit at [facility]. We got in touch with [facility], however they do not have beds, so they refused to take any information regarding the patient. Eventually patient was agreeable to be transferred to [facility] for further evaluation and treatment. Physical exam: [...] Laboratory work up and Imaging studies reviewed conveyor monitor - reviewed, no significant arrhythmias The patient CARE and further plan was discussed with the patient. All questionsanswered. Patient expressed understanding and was discharged to [facility] in hemodynamically stable condition. The patient was given written and verbal instructions. Time Spent with Patient Time spent providing/coordinating discharge services (# min): 25 Discharge Plan Discharge Plan Patient Disposition: [facility] Activity: Other Comment: Suicide/seizure precautions Diet: Regular [...] % (Auto) 62.7, Lymph % (Auto) 24.5, [place] % (Auto) 8.8, Eos % (Auto) 3.2, Baso % (Auto) 0.8, Nucleat RBC Rel Count 0.0, Neut # (Auto) 6.3, Lymph # (Auto) 2.5, [place] # (Auto) 0.9 H, Eos # (Auto) 0.3, Baso # (Auto) 0.1, PHA Creatinine Clear 175.50, Sodium 136, Potassium 4.1, Chloride 103, Carbon Dioxide 27.1, Anion Gap 10.0, BUN 9, Creatinine 0.67 L, Est GFR (CKD-EPI) > 60.0, Glucose 109 H, Calcium 9.2 Documented By: Mary Calhoun MD 09/26/23 1044 Signed By: <Electronically signed by Mary Calhoun MD> 09/26/23 1049 [facility] Work Phone: Evaluation + Plan note Future Appointments Appointment Date:09/29/2022 11:15:00 AM Scheduled Provider: Location[facility] Future Appointments Appointment Date:05/13/2023 09:00:00 AM Scheduled Provider:Nahed Doran MD Location:[facility] Appointment Type:URO Office Visit Diagnostic Tests Pending * PTH Intact 03/04/23 * Uric Acid 03/04/23 [facility] evaluation + Plan note Future Appointments Appointment Date:05/13/2023 09:00:00 AM Scheduled Provider:Nahed Doran MD Location:[facility] Appointment Type:URO Office Visit Diagnostic Tests Pending * Calculi Analysis Urinary 03/04/23 [facility] note* Diagnosis Partial epilepsy with impairment of consciousness, 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) epilepsy and epileptic syndromes with complex partial seizures, with intractable epilepsy Recurrent major depression in partial remission (HCC) Major depressive disorder, recurrent episode, in partial or unspecified remission [facility] Diagnosis Bipolar 2 disorder (HCC) Other bipolar disorders [facility] this [facility]* Diagnosis Bipolar II disorder (HCC)- Primary Other bipolar disorders [facility]* Diagnosis 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- Primary Other postprocedural status documented in this encounter [facility] note* Diagnosis 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- Primary Other postprocedural status [facility]* Diagnosis S/P placement of VNS (vagus [...] with intractable epilepsy [facility] Partial epilepsy with impairment of consciousness, intractable (HCC) Localization-related (focal) (partial) epilepsy and epileptic syndromes with complex partial seizures, with intractable epilepsy [facility] Work Phone: Evaluation note* Diagnosis Chronic migraine without aura without status migrainosus, not intractable Chronic migraine without aura, without mention of intractable migraine without mention of status migrainosus [facility]* Diagnosis Bipolar II disorder (HCC)- [...] with intractable epilepsy [facility] Diagnosis Chronic migraine without aura without status migrainosus, not intractable- Primary Chronic migraine without aura, without mention of intractable migraine without mention of status migrainosus [facility] Diagnosis Chronic migraine without aura without status migrainosus, not intractable- Primary Chronic migraine without aura, without mention of intractable migraine without mention of status migrainosus [facility] Diagnosis Chronic migraine without aura without status migrainosus, not intractable Chronic migraine without aura, without mention of intractable migraine without mention of status migrainosus [facility] Diagnosis Chronic migraine without aura without status migrainosus, not intractable Chronic migraine without aura, without mention of intractable migraine without mention of status migrainosus [facility] Diagnosis Partial epilepsy with impairment of consciousness, intractable (HCC) Localization-related (focal) (partial) epilepsy and epileptic syndromes with complex partial seizures, with intractable epilepsy [facility] Diagnosis Preoperative testing- Primary Preoperative examination, unspecified Partial epilepsy with impairment of consciousness, intractable (HCC) Localization-related (focal) (partial) epilepsy and epileptic syndromes with complex partial seizures, with intractable epilepsy Encounter for therapeutic drug level monitoring Encounter for therapeutic drug monitoring [facility] Diagnosis Pre-op evaluation- Primary Preoperative examination, [...] with intractable epilepsy [facility] Diagnosis Focal epilepsy with impairment of consciousness, 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) 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, with intractable epilepsy Partial epilepsy with impairment of consciousness, intractable (HCC) Localization-related (focal) (partial) epilepsy and epileptic syndromes with complex partial seizures, with intractable epilepsy [facility] Diagnosis Partial epilepsy with impairment of consciousness, intractable (HCC) Localization-related (focal) (partial) epilepsy and epileptic syndromes with complex partial seizures, with intractable epilepsy Partial epilepsy with impairment of consciousness, intractable (HCC) Localization-related (focal) (partial) epilepsy and epileptic syndromes with complex partial seizures, with intractable epilepsy [facility] Preoperative testing Preoperative examination, unspecified Partial epilepsy with impairment of consciousness, intractable (HCC) Localization-related (focal) (partial) epilepsy and epileptic syndromes with complex partial seizures, with intractable epilepsy [facility]* Diagnosis Onset Date Resolution Status Overdose acute Suicide attempt [facility] Work Phone: Evaluation note* Diagnosis Onset Date Resolution Status Hypoxia acute HIMA (obstructive sleep apnea) acute Overdose acute Seizure disorder acute Suicide attempt acute [facility] Work Phone: Evaluation note* Diagnosis Partial epilepsy with impairment of consciousness, intractable (HCC) Localization-related (focal) (partial) epilepsy and epileptic syndromes with complex partial seizures, with intractable epilepsy [facility] Diagnosis Chronic migraine without aura without status migrainosus, not intractable Chronic migraine without aura, without mention of intractable migraine without mention of status migrainosus [facility] Diagnosis 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- Primary Other postprocedural status Partial epilepsy with impairment of consciousness, intractable (HCC) Localization-related (focal) (partial) epilepsy and epileptic syndromes with complex partial seizures, with intractable epilepsy [facility] Diagnosis Partial epilepsy with impairment of consciousness, 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) epilepsy and epileptic syndromes with complex partial seizures, with intractable epilepsy [facility] Diagnosis Pre-op evaluation- Primary Preoperative examination, [...] with intractable epilepsy [facility] Diagnosis Pre-op evaluation- Primary Preoperative examination, [...] of status migrainosus [facility] this [facility]* Diagnosis Pre-op evaluation- Primary Preoperative examination, [...] of status migrainosus documented in this encounter [facility] note* Diagnosis Low back pain, unspecified back pain laterality, unspecified chronicity, unspecified whether sciatica present- Primary Pain in thoracic spine Other chronic pain documented in this encounter [facility] note* Diagnosis Pre-op evaluation- Primary Preoperative examination, [...] of status migrainosus documented in this encounter [facility] note* Diagnosis Pre-op evaluation- Primary Preoperative examination, [...] without neurogenic claudication [facility] Diagnosis Pre-op evaluation- Primary Preoperative examination, [...] of status migrainosus [facility] this [facility]* Diagnosis Osteoarthritis of patellofemoral joints, bilateral- Primary [facility] Diagnosis Pre-op evaluation- Primary Preoperative examination, [...] Other postprocedural status documented [facility] this [facility]* Diagnosis Pre-op evaluation- Primary Preoperative examination, [...] Other postprocedural status [facility] this [facility]* Diagnosis Pre-op evaluation- Primary Preoperative examination, [...] without neurogenic claudication [facility] this [facility]* Diagnosis Impingement of right shoulder- Primary Right shoulder pain, unspecified chronicity Primary osteoarthritis of right shoulder [facility] Diagnosis Pre-op evaluation- Primary Preoperative examination, [...] Neck pain Cervicalgia [facility] Diagnosis Pre-op evaluation- Primary Preoperative examination, [...] Neck pain Cervicalgia [facility] Diagnosis Chronic thoracic spine pain- Primary Acute exacerbation of chronic low back pain Chronic bilateral low back pain, unspecified whether sciatica present Chronic thoracic spine pain [facility] Diagnosis Pre-op evaluation- Primary [...] with intractable epilepsy [facility] Diagnosis Pre-op evaluation- Primary Preoperative examination, [...] discogenic back pain [facility] Diagnosis Pre-op evaluation- Primary Preoperative examination, [...] discogenic back pain [facility] Diagnosis Pre-op evaluation- Primary Preoperative examination, [...] of status migrainosus documented in this [facility] Diagnosis Pre-op evaluation- Primary Preoperative examination, [...] discogenic back pain documented [facility] this [facility] Diagnosis Pre-op evaluation- Primary Preoperative [...] discogenic back pain documented in this encounter [facility] Diagnosis Pre-op evaluation- Primary Preoperative examination, [...] discogenic back pain documented in this [facility] Diagnosis Pre-op evaluation- Primary Preoperative [...] intractable epilepsy Depression with anxiety Dysthymic disorder Acute post-operative pain- Primary documented in this encounter [facility] Diagnosis Pre-op evaluation- Primary Preoperative [...] with intractable epilepsy [facility] this [facility] Diagnosis Pre-op evaluation- Primary Preoperative examination, [...] intractable epilepsy Depression with anxiety Dysthymic disorder Hoarseness of voice- Primary Dysphonia 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 Other postprocedural status documented in this encounter [facility] Diagnosis Pre-op evaluation- Primary Preoperative examination, [...] with intractable epilepsy documented in this encounter [facility] course Narrative No data available for this section [facility] No data available for this section [facility] OhioInstructionsNot on filedocumented in this encounter [facility] filedocumented in this encounter [facility] No data available for this section [facility] note Author Reginald Tang [facility] September 24, 2023 9:15am Note Date/Time September 24, 2023 9:15am [facility] [address] [place] [id number] Progress Note Signed Patient: Jaye Harvey MR#: [id number] : 1980 Acct:[id number] Age/Sex: 42 / M Adm Date: 4 Loc: 4C Room: [address] [place] [address] Type: ADM IN Attending Dr: Mary Calhoun [...] signed by MD Reginald Tang> 09/24/23 0915 [facility] Work Phone: Progress note Author Mary Calhoun [facility] September 24, 2023 12:23pm Note Date/Time September 24, 2023 12:23p m [facility] [address] [place] [id number] Hospitalist Progress Note Signed Patient: Jaye Harvey MR#: [id number] : 1980 Acct:[id number] Age/Sex: 42 / M Adm Date: 4 Loc: 4C Room: [address] [place] [address] Type: ADM IN Attending Dr: Mary Calhoun [...] Lactated Ringers IV 09/25/23 02:24 150 mls/hr .[id number] RUPERTO Administration Prochlorperazine Edisylate 10 mg 09/23/23 [...] signed by Mary Calhoun MD> 09/24/23 1223 [facility] Work Phone: Progress note Author Mary Calhoun [facility] September 25, 2023 10:06am Note Date/Time September 25, 2023 10:02 am [facility] [address] [place] [address] Hospitalist Progress Note Signed Patient: Jaye Harvey MR#: [id number] : 1980 Acct:[id number] Age/Sex: 42 / M Adm Date: 4 Loc: Room: [address] [place] [address] Type: ADM IN Attending Dr: Mary Calhoun [...] precautions, status post [facility] on August [facility], 2023, we will restart his seizure medications Bipolar disorder DVT PPx-SCDs, Heparin CODE STATUS-full code Documented By: Mary Calhoun MD 09/25/23 1001 Signed By: <Electronically signed by Mary Calhoun MD> 09/25/23 1006 [facility] Work Phone: Progress note Author Scott Monterroso [facility] September 25, 2023 12:09pm Note Date/Time September 25, 2023 12:00 pm [facility] [address] [place] [address] Pulmonology Progress Note Signed Patient: Jaey Harvey MR#: [id number] : 1980 Acct:[id number] Age/Sex: 42 / M Adm Date: 4 Loc: Room: [address] [place] [address] Type: ADM IN Attending Dr: Mary Calhoun [...] <Electronically signed by Scott Monterroso MD> 09/25/23 1209 [facility] Work Phone: Reason for referral (narrative)* Diagnostic Procedure Only (Routine) - Closed Specialty Diagnoses / Procedures Referred By Contac t Referred To Contact XR IMAGING Diagnoses 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 Procedures XR NECK SOFT TISSUE 2V AP/LAT RADIOLOGIC EXAMINATION NECK SOFT TISSUE Neur Epilepsy Main [address] [place] [address] Xr Imaging Referral ID Status Reason Start Date Expiration Date V isits Requested Visits Authorized [id number] Closed Auto-Generate d Referral 01/06/2022 02/05/2023 1 1 [facility] for referral (narrative)* Diagnostic Procedure Only (Routine) - Closed Specialty Diagnoses / Procedures Referred By Contac t Referred To Contact XR IMAGING Diagnoses 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 Procedures XR NECK SOFT TISSUE 2V AP/LAT RADIOLOGIC EXAMINATION NECK SOFT TISSUE Neur Epilepsy Main [address] [id number] Xr Imaging Referral ID Status Reason Start Date Expiration Date V isits Requested Visits Authorized [id number] Closed Auto-Generate d Referral 01/06/2022 02/05/2023 1 1 [facility] for referral (narrative)* Diagnostic Procedure Only (Routine) - Pending Review Specialty Diagnoses / Procedures Referred By Contac t Referred To Contact XR IMAGING Diagnoses Preoperative testing Procedures XR NECK SOFT TISSUE 2V AP/LAT RADIOLOGIC EXAMINATION NECK SOFT TISSUE Aida Ervin PA-C [address] [place] [address] [place] [address] Referral ID Status Reason Start Date Expiration Date Visits Requested Visits Authorized [id number] Pending Review Auto-Generat ed Referral 08/05/2023 09/03/2024 1 1 * Consult, Test, Treat (Routine) - Authorized Specialty Diagnoses / Procedures Referred By Contac t Referred To Contact Diagnoses Preoperative testing Partial epilepsy with impairment of consciousness, intractable (HCC) Procedures REFER TO PACC - PRE ANESTHESIA CONSULTATION CLINIC OFFICE/OUTPATIENT [facility] 60 MINUTES Aida Ervin PA-C [address] [place] [address] Referral ID Status Reason Start Date Expiration Date Visits Requested Visits Authorized [id number] Authorized PCP Requested Referral 08/05/2023 08/04/2024 1 1 [facility] for referral (narrative)* Outpatient Procedure (Routine) - Closed Specialty Diagnoses / Procedures Referred By Contac t Referred To Contact [facility] Diagnoses Pre-op evaluation Procedures ECG COMPLETE ECG ROUTINE ECG W/LEAST 12 LDS W/I&R Cici Nayak PA-C [address] [address] [facility] [address] [place] [address] Referral ID Status Reason Start Date Expiration Date V isits Requested Visits Authorized [id number] Closed Auto-Generate d Referral 08/26/2023 08/25/2024 1 1 T [facility] for referral (narrative)* Diagnostic Procedure Only (Routine) - Closed Specialty Diagnoses / Procedures Referred By Contac t Referred To Contact XR IMAGING Diagnoses Preoperative testing Procedures XR NECK SOFT TISSUE 2V AP/LAT RADIOLOGIC EXAMINATION NECK SOFT TISSUE Aida Ervin PA-C [address] [place] [address] [place] [address] Referral ID Status Reason Start Date Expiration Date V isits Requested Visits Authorized [id number] Closed Auto-Generate d Referral 08/05/2023 09/03/2024 1 1 [facility] for referral (narrative)* Diagnostic Procedure Only (Routine) - Closed Specialty Diagnoses / Procedures Referred By Contac t Referred To Contact XR IMAGING Diagnoses Neck pain Procedures XR CERV OTHER 4V AP/LAT/OBL RADEX SPINE CERVICAL 4 OR 5 VIEWS Jodi Denney, POSTMASTER RELIEF.DOOR AND ARRIVAL ATTENDANT [address] [place] [address] [place] [address] Referral ID Status Reason Start Date Expiration Date V isits Requested Visits Authorized [id number] Closed Auto-Generate d Referral 05/27/2024 06/26/2025 1 1 [facility] for referral (narrative)* Diagnostic Procedure Only (Routine) - Closed Specialty Diagnoses / Procedures Referred By Contac t Referred To Contact XR IMAGING Diagnoses Neck pain Procedures XR CERV OTHER 4V AP/LAT/OBL RADEX SPINE CERVICAL 4 OR 5 VIEWS Jodi Denney APRN.DOOR AND ARRIVAL ATTENDANT [address] [place] [address] [place] [address] Referral ID Status Reason Start Date Expiration Date V isits Requested Visits Authorized [id number] Closed Auto-Generate d Referral 05/27/2024 06/26/2025 1 1 [facility] for visit Narrative* Diagnostic Procedure Only (Routine) - Closed Specialty Diagnoses / Procedures Referred By Contac t Referred To Contact XR IMAGING Diagnoses Neck pain Procedures XR CERV OTHER 4V AP/LAT/OBL RADEX SPINE CERVICAL 4 OR 5 VIEWS Jodi Denney APRN.DOOR AND ARRIVAL ATTENDANT [address] [place] [address] [place] [address] Referral ID Status Reason Start Date Expiration Date V isits Requested Visits Authorized [id number] Closed Auto-Generate d Referral 05/27/2024 06/26/2025 1 1 [facility] Summary Purpose Family History No Family History Records Found Relationship Condition Age at Onset Recorded Date/T pan father Myocardial infarction Unknown Advance Directives No Advanced Directives Records FoundDocuments on File Type Date Recorded 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 Advance Directive(s) 09/21/2020 11:55 AM Advance Directive(s) 06/20/2020 12:31 PM Advance Directive(s) 05/12/2019 11:28 AM Advance Directive(s) 05/09/2019 11:17 AM Advance Directive(s) 02/03/2018 11:54 AM Advance Directive(s) 04/08/2016 9:04 PM Advance Directive(s) 03/31/2016 8:54 AM Advance Directive(s) 03/26/2016 2:09 PM Documents on File Type Date Recorded 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 Advance Directive(s) 09/21/2020 11:55 AM [...] remission (HCC) Procedures CONSULT TO PSYCHOLOGY OFFICE/OUTPATIENT [facility] 60-74 MINUTES Lino South MD [address] [place] [address] Referral ID Status Reason Start Date Expiration Date Visits Requested Visits Authorized [id number] Pending Review PCP Requested Referral 08/20/2021 08/20/2022 1 1 Specialty Diagnoses / Procedures Referred By Contac t Referred To Contact Diagnoses Partial epilepsy with impairment of consciousness, intractable (HCC) Chronic nonintractable headache, unspecified headache type Procedures CONSULT TO HEADACHE CLINIC OFFICE/OUTPATIENT [facility] 60-74 MINUTES Susannah Gudino PA-C [address] [place] [address] Referral ID Status Reason Start Date Expiration Date Visits Requested Visits Authorized [id number] Authorized PCP Requested Referral 07/15/2022 07/15/2023 1 1 Specialty Diagnoses / Procedures Referred By Contac t Referred To Contact Neurosurgery Diagnoses Partial epilepsy with impairment of consciousness, intractable (HCC) Procedures CONSULT TO NEUROSURGERY OFFICE/OUTPATIENT [facility] 60 MINUTES Inez Cordero PA-C [id number] [place] [address] Referral ID Status Reason Start Date Expiration Date Visits Requested Visits Authorized [id number] Authorized PCP Requested Referral 08/03/2023 08/02/2024 1 1 Specialty Diagnoses / Procedures Referred By Contac t Referred To Contact Diagnoses Chronic migraine without aura without status migrainosus, not intractable Procedures CONSULT TO HEADACHE CLINIC OFFICE/OUTPATIENT NEW HIGH MDM 60 MINUTES Inez Cordero PA-C [address] [place] [address] Referral ID Status Reason Start Date Expiration Date Visits Requested Visits Authorized [id number] Authorized PCP Requested Referral 02/01/2024 01/31/2025 1 1 Specialty Diagnoses / Procedures Referred By Contac t Referred To Contact MR IMAGING Diagnoses Spinal stenosis of lumbar region without neurogenic claudication Procedures MRI LUMBAR SPINE WO IVCON MRI SPINAL CANAL LUMBAR W/O CONTRAST MATERIAL Krzysztof, [place] [address] [address] [place] [address] [place] [address] Referral ID Status Reason Start Date Expiration Date Visits Requested Visits Authorized [id number] New Request Auto-Generat ed Referral 04/29/2025 1 1 Referral ID Status Reason Start Date Expiration Date V isits Requested Visits Authorized [id number] Closed Auto-Generate d Referral 03/30/2024 04/29/2025 1 1 Specialty Diagnoses / Procedures Referred By Contac t Referred To Contact Rehabilitation Diagnoses Chronic bilateral low back pain, unspecified whether sciatica present Chronic thoracic spine pain Chester Maher, POSTMASTER RELIEF-DOOR AND ARRIVAL ATTENDANT [address] [place] [address] [id number] Referral ID Status Reason Start Date Expiration Date Visits Requested Visits Authorized [id number] Pending Review Specialty Services Required 01/19/2024 07/18/2024 [...] DATE CREATED AUTHOR AUTHOR'S ORGANIZ ATION 12/30/2022 [facility] DATE CREATED AUTHOR AUTHOR'S ORGANIZ ATION 04/09/2023 [facility] DATE CREATED AUTHOR AUTHOR'S ORGANIZ ATION 06/09/2023 [facility] DATE CREATED AUTHOR AUTHOR'S ORGANIZ ATION 07/18/2023 [facility] DATE CREATED AUTHOR AUTHOR'S ORGANIZ ATION 12/05/2023 [facility] ical Center DATE CREATED AUTHOR AUTHOR'S ORGANIZ ATION 01/20/2024 [facility] DATE CREATED AUTHOR AUTHOR'S ORGANIZ ATION 04/04/2024 [facility] DATE CREATED AUTHOR AUTHOR'S ORGANIZ ATION 09/22/2024 [facility] DATE CREATED AUTHOR AUTHOR'S ORGANIZ ATION 11/17/2024 [facility] DATE CREATED AUTHOR AUTHOR'S ORGANIZ ATION 02/19/2025 [facility] DATE CREATED AUTHOR AUTHOR'S ORGANIZ ATION 02/24/2025 [facility] EPIC Source Comments (unrecognize d section and content) In the event this informatio n is protected by the Federal Confidentiality of Alcohol and Drug Abuse Patient Records regulations: The Federal rules restrict any use of the information to criminally investigate or prosecute any alcohol or drug abuse patient.[facility] HospitalIn the event this information is protected by the Federal Confidentiality of Alcohol and Drug Abuse Patient Records regulations: The Federal rules restrict any use of the information to criminally investigate or prosecute any alcohol or drug abuse patient.[facility] HospitalIn the event this information is protected by the Federal Confidentiality of Alcohol and Drug Abuse Patient Records regulations: The Federal rules restrict any use of the information to criminally investigate or prosecute any alcohol or drug abuse patient.[facility] HospitalIn the event this information is protected by the Federal Confidentiality of Alcohol and Drug Abuse Patient Records regulations: The Federal rules restrict any use of the information to criminally investigate or prosecute any alcohol or drug abuse patient.[facility] HospitalIn the event this information is protected by the Federal Confidentiality of Alcohol and Drug Abuse Patient Records regulations: The Federal rules restrict any use of the information to criminally investigate or prosecute any alcohol or drug abuse patient.[facility] HospitalIn the event this information is protected by the Federal Confidentiality of Alcohol and Drug Abuse Patient Records regulations: The Federal rules restrict any use of the information to criminally investigate or prosecute any alcohol or drug abuse patient.[facility] HospitalIn the event this information is protected by the Federal Confidentiality of Alcohol and Drug Abuse Patient Records regulations: The Federal rules restrict any use of the information to criminally investigate or prosecute any alcohol or drug abuse patient.[facility] HospitalIn the event this information is protected by the Federal Confidentiality of Alcohol and Drug Abuse Patient Records regulations: The Federal rules restrict any use of the information to criminally investigate or prosecute any alcohol or drug abuse patient.[facility] HospitalIn the event this information is protected by the Federal Confidentiality of Alcohol and Drug Abuse Patient Records regulations: The Federal rules restrict any use of the information to criminally investigate or prosecute any alcohol or drug abuse patient.[facility] HospitalIn the event this information is protected by the Federal Confidentiality of Alcohol and Drug Abuse Patient Records regulations: The Federal rules restrict any use of the information to criminally investigate or prosecute any alcohol or drug abuse patient.[facility] HospitalIn the event this information is protected by the Federal Confidentiality of Alcohol and Drug Abuse Patient Records regulations: The Federal rules restrict any use of the information to criminally investigate or prosecute any alcohol or drug abuse patient.[facility] HospitalIn the event this information is protected by the Federal Confidentiality of Alcohol and Drug Abuse Patient Records regulations: The Federal rules restrict any use of the information to criminally investigate or prosecute any alcohol or drug abuse patient.[facility] HospitalIn the event this information is protected by the Federal Confidentiality of Alcohol and Drug Abuse Patient Records regulations: The Federal rules restrict any use of the information to criminally investigate or prosecute any alcohol or drug abuse patient.[facility] HospitalIn the event this information is protected by the Federal Confidentiality of Alcohol and Drug Abuse Patient Records regulations: The Federal rules restrict any use of the information to criminally investigate or prosecute any alcohol or drug abuse patient.[facility] HospitalIn the event this information is protected by the Federal Confidentiality of Alcohol and Drug Abuse Patient Records regulations: The Federal rules restrict any use of the information to criminally investigate or prosecute any alcohol or drug abuse patient.[facility] HospitalIn the event this information is protected by the Federal Confidentiality of Alcohol and Drug Abuse Patient Records regulations: The Federal rules restrict any use of the information to criminally investigate or prosecute any alcohol or drug abuse patient.[facility] HospitalIn the event this information is protected by the Federal Confidentiality of Alcohol and Drug Abuse Patient Records regulations: The Federal rules restrict any use of the information to criminally investigate or prosecute any alcohol or drug abuse patient.[facility] HospitalIn the event this information is protected by the Federal Confidentiality of Alcohol and Drug Abuse Patient Records regulations: The Federal rules restrict any use of the information to criminally investigate or prosecute any alcohol or drug abuse patient.[facility] HospitalIn the event this information is protected by the Federal Confidentiality of Alcohol and Drug Abuse Patient Records regulations: The Federal rules restrict any use of the information to criminally investigate or prosecute any alcohol or drug abuse patient.[facility] HospitalIn the event this information is protected by the Federal Confidentiality of Alcohol and Drug Abuse Patient Records regulations: The Federal rules restrict any use of the information to criminally investigate or prosecute any alcohol or drug abuse patient.[facility] HospitalIn the event this information is protected by the Federal Confidentiality of Alcohol and Drug Abuse Patient Records regulations: The Federal rules restrict any use of the information to criminally investigate or prosecute any alcohol or drug abuse patient.[facility] HospitalIn the event this information is protected by the Federal Confidentiality of Alcohol and Drug Abuse Patient Records regulations: The Federal rules restrict any use of the information to criminally investigate or prosecute any alcohol or drug abuse patient.[facility] HospitalIn the event this information is protected by the Federal Confidentiality of Alcohol and Drug Abuse Patient Records regulations: The Federal rules restrict any use of the information to criminally investigate or prosecute any alcohol or drug abuse patient.[facility] HospitalIn the event this information is protected by the Federal Confidentiality of Alcohol and Drug Abuse Patient Records regulations: The Federal rules restrict any use of the information to criminally investigate or prosecute any alcohol or drug abuse patient.[facility] HospitalIn the event this information is protected by the Federal Confidentiality of Alcohol and Drug Abuse Patient Records regulations: The Federal rules restrict any use of the information to criminally investigate or prosecute any alcohol or drug abuse patient.[facility] HospitalIn the event this information is protected by the Federal Confidentiality of Alcohol and Drug Abuse Patient Records regulations: The Federal rules restrict any use of the information to criminally investigate or prosecute any alcohol or drug abuse patient.[facility] HospitalIn the event this information is protected by the Federal Confidentiality of Alcohol and Drug Abuse Patient Records regulations: The Federal rules restrict any use of the information to criminally investigate or prosecute any alcohol or drug abuse patient.[facility] HospitalIn the event this information is protected by the Federal Confidentiality of Alcohol and Drug Abuse Patient Records regulations: The Federal rules restrict any use of the information to criminally investigate or prosecute any alcohol or drug abuse patient.[facility] HospitalIn the event this information is protected by the Federal Confidentiality of Alcohol and Drug Abuse Patient Records regulations: The Federal rules restrict any use of the information to criminally investigate or prosecute any alcohol or drug abuse patient.[facility] HospitalIn the event this information is protected by the Federal Confidentiality of Alcohol and Drug Abuse Patient Records regulations: The Federal rules restrict any use of the information to criminally investigate or prosecute any alcohol or drug abuse patient.[facility] HospitalIn the event this information is protected by the Federal Confidentiality of Alcohol and Drug Abuse Patient Records regulations: The Federal rules restrict any use of the information to criminally investigate or prosecute any alcohol or drug abuse patient.[facility] HospitalIn the event this information is protected by the Federal Confidentiality of Alcohol and Drug Abuse Patient Records regulations: The Federal rules restrict any use of the information to criminally investigate or prosecute any alcohol or drug abuse patient.[facility] HospitalIn the event this information is protected by the Federal Confidentiality of Alcohol and Drug Abuse Patient Records regulations: The Federal rules restrict any use of the information to criminally investigate or prosecute any alcohol or drug abuse patient.[facility] HospitalIn the event this information is protected by the Federal Confidentiality of Alcohol and Drug Abuse Patient Records regulations: The Federal rules restrict any use of the information to criminally investigate or prosecute any alcohol or drug abuse patient.[facility] HospitalIn the event this information is protected by the Federal Confidentiality of Alcohol and Drug Abuse Patient Records regulations: The Federal rules restrict any use of the information to criminally investigate or prosecute any alcohol or drug abuse patient.[facility] HospitalIn the event this information is protected by the Federal Confidentiality of Alcohol and Drug Abuse Patient Records regulations: The Federal rules restrict any use of the information to criminally investigate or prosecute any alcohol or drug abuse patient.[facility] HospitalIn the event this information is protected by the Federal Confidentiality of Alcohol and Drug Abuse Patient Records regulations: The Federal rules restrict any use of the information to criminally investigate or prosecute any alcohol or drug abuse patient.[facility] HospitalIn the event this information is protected by the Federal Confidentiality of Alcohol and Drug Abuse Patient Records regulations: The Federal rules restrict any use of the information to criminally investigate or prosecute any alcohol or drug abuse patient.[facility] HospitalIn the event this information is protected by the Federal Confidentiality of Alcohol and Drug Abuse Patient Records regulations: The Federal rules restrict any use of the information to criminally investigate or prosecute any alcohol or drug abuse patient.[facility] HospitalIn the event this information is protected by the Federal Confidentiality of Alcohol and Drug Abuse Patient Records regulations: The Federal rules restrict any use of the information to criminally investigate or prosecute any alcohol or drug abuse patient.[facility] HospitalIn the event this information is protected by the Federal Confidentiality of Alcohol and Drug Abuse Patient Records regulations: The Federal rules restrict any use of the information to criminally investigate or prosecute any alcohol or drug abuse patient.[facility] HospitalIn the event this information is protected by the Federal Confidentiality of Alcohol and Drug Abuse Patient Records regulations: The Federal rules restrict any use of the information to criminally investigate or prosecute any alcohol or drug abuse patient.[facility] HospitalIn the event this information is protected by the Federal Confidentiality of Alcohol and Drug Abuse Patient Records regulations: The Federal rules restrict any use of the information to criminally investigate or prosecute any alcohol or drug abuse patient.[facility] HospitalIn the event this information is protected by the Federal Confidentiality of Alcohol and Drug Abuse Patient Records regulations: The Federal rules restrict any use of the information to criminally investigate or prosecute any alcohol or drug abuse patient.[facility] HospitalIn the event this information is protected by the Federal Confidentiality of Alcohol and Drug Abuse Patient Records regulations: The Federal rules restrict any use of the information to criminally investigate or prosecute any alcohol or drug abuse patient.[facility] HospitalIn the event this information is protected by the Federal Confidentiality of Alcohol and Drug Abuse Patient Records regulations: The Federal rules restrict any use of the information to criminally investigate or prosecute any alcohol or drug abuse patient.[facility] HospitalIn the event this information is protected by the Federal Confidentiality of Alcohol and Drug Abuse Patient Records regulations: The Federal rules restrict any use of the information to criminally investigate or prosecute any alcohol or drug abuse patient.[facility] HospitalIn the event this information is protected by the Federal Confidentiality of Alcohol and Drug Abuse Patient Records regulations: The Federal rules restrict any use of the information to criminally investigate or prosecute any alcohol or drug abuse patient.[facility] HospitalIn the event this information is protected by the Federal Confidentiality of Alcohol and Drug Abuse Patient Records regulations: The Federal rules restrict any use of the information to criminally investigate or prosecute any alcohol or drug abuse patient.[facility] HospitalIn the event this information is protected by the Federal Confidentiality of Alcohol and Drug Abuse Patient Records regulations: The Federal rules restrict any use of the information to criminally investigate or prosecute any alcohol or drug abuse patient.[facility] HospitalIn the event this information is protected by the Federal Confidentiality of Alcohol and Drug Abuse Patient Records regulations: The Federal rules restrict any use of the information to criminally investigate or prosecute any alcohol or drug abuse patient.[facility] HospitalIn the event this information is protected by the Federal Confidentiality of Alcohol and Drug Abuse Patient Records regulations: The Federal rules restrict any use of the information to criminally investigate or prosecute any alcohol or drug abuse patient.[facility] HospitalIn the event this information is protected by the Federal Confidentiality of Alcohol and Drug Abuse Patient Records regulations: The Federal rules restrict any use of the information to criminally investigate or prosecute any alcohol or drug abuse patient.[facility] HospitalIn the event this information is protected by the Federal Confidentiality of Alcohol and Drug Abuse Patient Records regulations: The Federal rules restrict any use of the information to criminally investigate or prosecute any alcohol or drug abuse patient.[facility] HospitalIn the event this information is protected by the Federal Confidentiality of Alcohol and Drug Abuse Patient Records regulations: The Federal rules restrict any use of the information to criminally investigate or prosecute any alcohol or drug abuse patient.[facility] HospitalIn the event this information is protected by the Federal Confidentiality of Alcohol and Drug Abuse Patient Records regulations: The Federal rules restrict any use of the information to criminally investigate or prosecute any alcohol or drug abuse patient.[facility] HospitalIn the event this information is protected by the Federal Confidentiality of Alcohol and Drug Abuse Patient Records regulations: The Federal rules restrict any use of the information to criminally investigate or prosecute any alcohol or drug abuse patient.[facility] HospitalIn the event this information is protected by the Federal Confidentiality of Alcohol and Drug Abuse Patient Records regulations: The Federal rules restrict any use of the information to criminally investigate or prosecute any alcohol or drug abuse patient.[facility] HospitalIn the event this information is protected by the Federal Confidentiality of Alcohol and Drug Abuse Patient Records regulations: The Federal rules restrict any use of the information to criminally investigate or prosecute any alcohol or drug abuse patient.[facility] HospitalIn the event this information is protected by the Federal Confidentiality of Alcohol and Drug Abuse Patient Records regulations: The Federal rules restrict any use of the information to criminally investigate or prosecute any alcohol or drug abuse patient.[facility] HospitalIn the event this information is protected by the Federal Confidentiality of Alcohol and Drug Abuse Patient Records regulations: The Federal rules restrict any use of the information to criminally investigate or prosecute any alcohol or drug abuse patient.[facility] HospitalIn the event this information is protected by the Federal Confidentiality of Alcohol and Drug Abuse Patient Records regulations: The Federal rules restrict any use of the information to criminally investigate or prosecute any alcohol or drug abuse patient.[facility] HospitalIn the event this information is protected by the Federal Confidentiality of Alcohol and Drug Abuse Patient Records regulations: The Federal rules restrict any use of the information to criminally investigate or prosecute any alcohol or drug abuse patient.[facility] HospitalIn the event this information is protected by the Federal Confidentiality of Alcohol and Drug Abuse Patient Records regulations: The Federal rules restrict any use of the information to criminally investigate or prosecute any alcohol or drug abuse patient.[facility] HospitalIn the event this information is protected by the Federal Confidentiality of Alcohol and Drug Abuse Patient Records regulations: The Federal rules restrict any use of the information to criminally investigate or prosecute any alcohol or drug abuse patient.[facility] HospitalIn the event this information is protected by the Federal Confidentiality of Alcohol and Drug Abuse Patient Records regulations: The Federal rules restrict any use of the information to criminally investigate or prosecute any alcohol or drug abuse patient.[facility] HospitalIn the event this information is protected by the Federal Confidentiality of Alcohol and Drug Abuse Patient Records regulations: The Federal rules restrict any use of the information to criminally investigate or prosecute any alcohol or drug abuse patient.[facility] HospitalIn the event this information is protected by the Federal Confidentiality of Alcohol and Drug Abuse Patient Records regulations: The Federal rules restrict any use of the information to criminally investigate or prosecute any alcohol or drug abuse patient.[facility] HospitalIn the event this information is protected by the Federal Confidentiality of Alcohol and Drug Abuse Patient Records regulations: The Federal rules restrict any use of the information to criminally investigate or prosecute any alcohol or drug abuse patient.[facility] HospitalIn the event this information is protected by the Federal Confidentiality of Alcohol and Drug Abuse Patient Records regulations: The Federal rules restrict any use of the information to criminally investigate or prosecute any alcohol or drug abuse patient.[facility] HospitalIn the event this information is protected by the Federal Confidentiality of Alcohol and Drug Abuse Patient Records regulations: The Federal rules restrict any use of the information to criminally investigate or prosecute any alcohol or drug abuse patient.[facility] HospitalIn the event this information is protected by the Federal Confidentiality of Alcohol and Drug Abuse Patient Records regulations: The Federal rules restrict any use of the information to criminally investigate or prosecute any alcohol or drug abuse patient.[facility] HospitalIn the event this information is protected by the Federal Confidentiality of Alcohol and Drug Abuse Patient Records regulations: The Federal rules restrict any use of the information to criminally investigate or prosecute any alcohol or drug abuse patient.[facility] HospitalIn the event this information is protected by the Federal Confidentiality of Alcohol and Drug Abuse Patient Records regulations: The Federal rules restrict any use of the information to criminally investigate or prosecute any alcohol or drug abuse patient.[facility] HospitalIn the event this information is protected by the Federal Confidentiality of Alcohol and Drug Abuse Patient Records regulations: The Federal rules restrict any use of the information to criminally investigate or prosecute any alcohol or drug abuse patient.[facility] HospitalIn the event this information is protected by the Federal Confidentiality of Alcohol and Drug Abuse Patient Records regulations: The Federal rules restrict any use of the information to criminally investigate or prosecute any alcohol or drug abuse patient.[facility] HospitalIn the event this information is protected by the Federal Confidentiality of Alcohol and Drug Abuse Patient Records regulations: The Federal rules restrict any use of the information to criminally investigate or prosecute any alcohol or drug abuse patient.[facility] HospitalIn the event this information is protected by the Federal Confidentiality of Alcohol and Drug Abuse Patient Records regulations: The Federal rules restrict any use of the information to criminally investigate or prosecute any alcohol or drug abuse patient.[facility] HospitalIn the event this information is protected by the Federal Confidentiality of Alcohol and Drug Abuse Patient Records regulations: The Federal rules restrict any use of the information to criminally investigate or prosecute any alcohol or drug abuse patient.[facility] HospitalIn the event this information is protected by the Federal Confidentiality of Alcohol and Drug Abuse Patient Records regulations: The Federal rules restrict any use of the information to criminally investigate or prosecute any alcohol or drug abuse patient.[facility] HospitalIn the event this information is protected by the Federal Confidentiality of Alcohol and Drug Abuse Patient Records regulations: The Federal rules restrict any use of the information to criminally investigate or prosecute any alcohol or drug abuse patient.[facility] HospitalIn the event this information is protected by the Federal Confidentiality of Alcohol and Drug Abuse Patient Records regulations: The Federal rules restrict any use of the information to criminally investigate or prosecute any alcohol or drug abuse patient.[facility] HospitalIn the event this information is protected by the Federal Confidentiality of Alcohol and Drug Abuse Patient Records regulations: The Federal rules restrict any use of the information to criminally investigate or prosecute any alcohol or drug abuse patient.[facility] HospitalIn the event this information is protected by the Federal Confidentiality of Alcohol and Drug Abuse Patient Records regulations: The Federal rules restrict any use of the information to criminally investigate or prosecute any alcohol or drug abuse patient.[facility] HospitalIn the event this information is protected by the Federal Confidentiality of Alcohol and Drug Abuse Patient Records regulations: The Federal rules restrict any use of the information to criminally investigate or prosecute any alcohol or drug abuse patient.[facility] HospitalIn the event this information is protected by the Federal Confidentiality of Alcohol and Drug Abuse Patient Records regulations: The Federal rules restrict any use of the information to criminally investigate or prosecute any alcohol or drug abuse patient.[facility] HospitalIn the event this information is protected by the Federal Confidentiality of Alcohol and Drug Abuse Patient Records regulations: The Federal rules restrict any use of the information to criminally investigate or prosecute any alcohol or drug abuse patient.[facility] HospitalIn the event this information is protected by the Federal Confidentiality of Alcohol and Drug Abuse Patient Records regulations: The Federal rules restrict any use of the information to criminally investigate or prosecute any alcohol or drug abuse patient.[facility] HospitalIn the event this information is protected by the Federal Confidentiality of Alcohol and Drug Abuse Patient Records regulations: The Federal rules restrict any use of the information to criminally investigate or prosecute any alcohol or drug abuse patient.[facility] HospitalIn the event this information is protected by the Federal Confidentiality of Alcohol and Drug Abuse Patient Records regulations: The Federal rules restrict any use of the information to criminally investigate or prosecute any alcohol or drug abuse patient.[facility] HospitalIn the event this information is protected by the Federal Confidentiality of Alcohol and Drug Abuse Patient Records regulations: The Federal rules restrict any use of the information to criminally investigate or prosecute any alcohol or drug abuse patient.[facility] HospitalIn the event this information is protected by the Federal Confidentiality of Alcohol and Drug Abuse Patient Records regulations: The Federal rules restrict any use of the information to criminally investigate or prosecute any alcohol or drug abuse patient.[facility] HospitalIn the event this information is protected by the Federal Confidentiality of Alcohol and Drug Abuse Patient Records regulations: The Federal rules restrict any use of the information to criminally investigate or prosecute any alcohol or drug abuse patient.[facility] HospitalIn the event this information is protected by the Federal Confidentiality of Alcohol and Drug Abuse Patient Records regulations: The Federal rules restrict any use of the information to criminally investigate or prosecute any alcohol or drug abuse patient.[facility] HospitalIn the event this information is protected by the Federal Confidentiality of Alcohol and Drug Abuse Patient Records regulations: The Federal rules restrict any use of the information to criminally investigate or prosecute any alcohol or drug abuse patient.[facility] HospitalIn the event this information is protected by the Federal Confidentiality of Alcohol and Drug Abuse Patient Records regulations: The Federal rules restrict any use of the information to criminally investigate or prosecute any alcohol or drug abuse patient.[facility] HospitalIn the event this information is protected by the Federal Confidentiality of Alcohol and Drug Abuse Patient Records regulations: The Federal rules restrict any use of the information to criminally investigate or prosecute any alcohol or drug abuse patient.[facility] HospitalIn the event this information is protected by the Federal Confidentiality of Alcohol and Drug Abuse Patient Records regulations: The Federal rules restrict any use of the information to criminally investigate or prosecute any alcohol or drug abuse patient.[facility] HospitalIn the event this information is protected by the Federal Confidentiality of Alcohol and Drug Abuse Patient Records regulations: The Federal rules restrict any use of the information to criminally investigate or prosecute any alcohol or drug abuse patient.[facility] HospitalIn the event this information is protected by the Federal Confidentiality of Alcohol and Drug Abuse Patient Records regulations: The Federal rules restrict any use of the information to criminally investigate or prosecute any alcohol or drug abuse patient.[facility] HospitalIn the event this information is protected by the Federal Confidentiality of Alcohol and Drug Abuse Patient Records regulations: The Federal rules restrict any use of the information to criminally investigate or prosecute any alcohol or drug abuse patient.[facility] HospitalIn the event this information is protected by the Federal Confidentiality of Alcohol and Drug Abuse Patient Records regulations: The Federal rules restrict any use of the information to criminally investigate or prosecute any alcohol or drug abuse patient.[facility] HospitalIn the event this information is protected by the Federal Confidentiality of Alcohol and Drug Abuse Patient Records regulations: The Federal rules restrict any use of the information to criminally investigate or prosecute any alcohol or drug abuse patient.[facility] HospitalIn the event this information is protected by the Federal Confidentiality of Alcohol and Drug Abuse Patient Records regulations: The Federal rules restrict any use of the information to criminally investigate or prosecute any alcohol or drug abuse patient.[facility] HospitalIn the event this information is protected by the Federal Confidentiality of Alcohol and Drug Abuse Patient Records regulations: The Federal rules restrict any use of the information to criminally investigate or prosecute any alcohol or drug abuse patient.[facility] HospitalIn the event this information is protected by the Federal Confidentiality of Alcohol and Drug Abuse Patient Records regulations: The Federal rules restrict any use of the information to criminally investigate or prosecute any alcohol or drug abuse patient.[facility] HospitalIn the event this information is protected by the Federal Confidentiality of Alcohol and Drug Abuse Patient Records regulations: The Federal rules restrict any use of the information to criminally investigate or prosecute any alcohol or drug abuse patient.[facility] HospitalIn the event this information is protected by the Federal Confidentiality of Alcohol and Drug Abuse Patient Records regulations: The Federal rules restrict any use of the information to criminally investigate or prosecute any alcohol or drug abuse patient.[facility] HospitalIn the event this information is protected by the Federal Confidentiality of Alcohol and Drug Abuse Patient Records regulations: The Federal rules restrict any use of the information to criminally investigate or prosecute any alcohol or drug abuse patient.[facility] HospitalIn the event this information is protected by the Federal Confidentiality of Alcohol and Drug Abuse Patient Records regulations: The Federal rules restrict any use of the information to criminally investigate or prosecute any alcohol or drug abuse patient.[facility] HospitalIn the event this information is protected by the Federal Confidentiality of Alcohol and Drug Abuse Patient Records regulations: The Federal rules restrict any use of the information to criminally investigate or prosecute any alcohol or drug abuse patient.[facility] HospitalIn the event this information is protected by the Federal Confidentiality of Alcohol and Drug Abuse Patient Records regulations: The Federal rules restrict any use of the information to criminally investigate or prosecute any alcohol or drug abuse patient.[facility] HospitalIn the event this information is protected by the Federal Confidentiality of Alcohol and Drug Abuse Patient Records regulations: The Federal rules restrict any use of the information to criminally investigate or prosecute any alcohol or drug abuse patient.[facility] HospitalIn the event this information is protected by the Federal Confidentiality of Alcohol and Drug Abuse Patient Records regulations: The Federal rules restrict any use of the information to criminally investigate or prosecute any alcohol or drug abuse patient.[facility] HospitalIn the event this information is protected by the Federal Confidentiality of Alcohol and Drug Abuse Patient Records regulations: The Federal rules restrict any use of the information to criminally investigate or prosecute any alcohol or drug abuse patient.[facility] HospitalIn the event this information is protected by the Federal Confidentiality of Alcohol and Drug Abuse Patient Records regulations: The Federal rules restrict any use of the information to criminally investigate or prosecute any alcohol or drug abuse patient.[facility] HospitalIn the event this information is protected by the Federal Confidentiality of Alcohol and Drug Abuse Patient Records regulations: The Federal rules restrict any use of the information to criminally investigate or prosecute any alcohol or drug abuse patient.[facility] HospitalIn the event this information is protected by the Federal Confidentiality of Alcohol and Drug Abuse Patient Records regulations: The Federal rules restrict any use of the information to criminally investigate or prosecute any alcohol or drug abuse patient.[facility] HospitalIn the event this information is protected by the Federal Confidentiality of Alcohol and Drug Abuse Patient Records regulations: The Federal rules restrict any use of the information to criminally investigate or prosecute any alcohol or drug abuse patient.[facility] HospitalIn the event this information is protected by the Federal Confidentiality of Alcohol and Drug Abuse Patient Records regulations: The Federal rules restrict any use of the information to criminally investigate or prosecute any alcohol or drug abuse patient.[facility] HospitalIn the event this information is protected by the Federal Confidentiality of Alcohol and Drug Abuse Patient Records regulations: The Federal rules restrict any use of the information to criminally investigate or prosecute any alcohol or drug abuse patient.[facility] Reason for Visit (unrecogniz ed section [...] NECK SOFT TISSUE Neur Epilepsy Main [address] [id number] Xr Imaging Referral ID Status Reason Start Date Expiration Date V isits Requested Visits Authorized [id number] Closed Auto-Generate d Referral 01/06/2022 02/05/2023 1 [...] Update Specialty Diagnoses / Procedures Referred By Contjaime t Referred To Contact ADULT PSYCHIATRY Diagnoses H&P Procedures VIDEO PSYC/PSYL EST Michael Cordoba APRN.DOOR AND ARRIVAL ATTENDANT [address] [place] [address] Josi Queen PA-C [address] [place] [address] Referral ID Status Reason Start Date Expiration Date V isits Requested Visits Authorized [id number] Authorized 05/12/2023 05/17/2024 99 99 Specialty Diagnoses / Procedures Referred By Contac t Referred To Contact ADULT PSYCHIATRY Diagnoses NEW DBT IOP Procedures VIDEO PSYC/PSYL GRP (ZOOM) Mya Tena, POSTMASTER RELIEF.DOOR AND ARRIVAL ATTENDANT [address] [place] [address] [facility] Adult [facility] [address] [place] [address] Referral ID Status Reason Start Date Expiration Date V isits Requested Visits Authorized [id number] Authorized 05/13/2023 05/17/2024 99 99 Reason Comments Medication Authorization Reason Comments Epilepsy Follow Up 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 Schedule Surgery VNS [...] MDM 60 MINUTES Inez Cordero PA-C [address] [place] [address] Referral ID Status Reason Start Date Expiration Date V isits Requested Visits Authorized [id number] Closed PCP Requested Referral 08/03/2023 08/02/2024 1 1 Reason Comments Radio Gen A21 Specialty Diagnoses / Procedures Referred By Contac t Referred To Contact XR IMAGING Diagnoses Preoperative testing Procedures XR NECK SOFT TISSUE 2V AP/LAT RADIOLOGIC EXAMINATION NECK SOFT TISSUE Aida Ervin PA-C [address] [place] [address] [place] [address] Referral ID Status Reason Start Date Expiration Date V isits Requested Visits Authorized [id number] Closed Auto-Generate d Referral 08/05/2023 09/03/2024 1 [...] chronic pain Pain in thoracic spine Procedures MS PHYSICAL THERAPY EVALUATION LOW COMPLEX 20 MINS Chester Maher MD [address] [place] [address] Shawnee Jonas PT Referral ID Status Reason Start Date Expiration Date V isits Requested Visits Authorized [id number] Authorized 02/01/2024 07/30/2024 30 30 Reason Onset [...] Procedures CONSULT TO PAIN MGT OFFICE/OUTPATIENT NEW HIGH MDM 60 MINUTES Sobeida Galvan MD [address] [place] [address] [facility] [address] [place] [address] Referral ID Status Reason Start Date Expiration Date V isits Requested Visits Authorized [id number] Closed PCP Requested Referral 02/29/2024 02/28/2025 1 1 Reason Comments Orders Reason Onset Date Comments re: Missed PT Eval 02/01/2024 Called to juan hyatt on missed PT Eval and he said [...] scheduling on. He said w/ appts w/ [facility] he'll wait till post Eval. Reason Comments Pain Reason Comments Established Patient VNS Visit Reason Comments VNS Visit Specialty Diagnoses / Procedures Referred By Contac t Referred To Contact MR IMAGING Diagnoses Spinal stenosis of lumbar region without neurogenic claudication Procedures MRI LUMBAR SPINE WO IVCON MRI SPINAL CANAL LUMBAR W/O CONTRAST MATERIAL Krzysztof, [place] [address] [address]ina [address] [place] [address] [place] [address] Referral ID Status Reason Start Date Expiration Date V isits Requested Visits Authorized [id number] Closed Auto-Generate d Referral 03/30/2024 04/29/2025 1 1 Reason Comments Radiology XR Reason Comments Results Reason Comments Medication Problem May patient use Lyri ca for his arthritis? Reason Onset Date Comments re: CX PT eval over MyChart 06/01/2024 post Check-up 06/02/2024 FU 06/13/2024 Reason Comments Back Pain Specialty Diagnoses / Procedures Referred By Contac t Referred To Contact Pain Medicine Diagnoses Acute exacerbation of chronic low back pain Dania Ervin, [employer] [address] [place] [address] [facility] [address] [place] [address] Referral ID Status Reason Start Date Expiration Date Visits Requested Visits Authorized [id number] Pending Review Specialty Services Required 12/28/2023 12/27/2024 1 1 Reason Comments Schedule Injection Reason Comments pain procedure response & follow up Righ t Diagnostic L5-S1 Lumbar facet joint medial branch nerve block #1 Reason Comments Post Op Reason Comments Procedure Follow Up Right L5-S1 lumbar f acet joint medial branch nerve radiofrequency ablation under fluoroscopic guidance. 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 Start Date End Date Uriel Nunez MD PCP - General Family Practice 01/02/11 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 Start Date End Date Uriel Nunez MD PCP - General Family Practice 01/02/11 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 Start Date End Date Uriel Nunez MD PCP - General Family Practice 01/02/11 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 Start Date End Date Uriel Nunez MD PCP - General Family Practice 01/02/11 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 Start Date End Date Uriel Nunez MD PCP - General Family Practice 01/02/11 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 Start Date End Date Uriel Nunez MD PCP - General Family Practice 01/02/11 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 Start Date End Date Uriel Nunez MD PCP - General Family Practice 01/02/11 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 Start Date End Date Uriel Nunez MD PCP - General Family Practice 01/02/11 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 Start Date End Date Uriel Nunez MD PCP - General Family Practice 01/02/11 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 Start Date End Date Uriel Nunez MD PCP - General Family Medicine 01/02/11 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 Start Date End Date Uriel Nunez MD PCP - General Family Medicine 01/02/11 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 Start Date End Date Uriel Nunez MD PCP - General Family Medicine 01/02/11 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 Start Date End Date Uriel Nunez MD PCP - General Family Medicine 01/02/11 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 Start Date End Date Uriel Nunez MD PCP - General Family Medicine 01/02/11 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 Start Date End Date Uriel Nunez MD PCP - General Family Medicine 01/02/11 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 Start Date End Date Uriel Nunez MD PCP - General Family Medicine 01/02/11 Team Status: Inactive Member Role Status Dates Uriel Nunez MD Primary Care Provider Active Davis Mir DO Emergency Provider Active 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 Start Date End Date Uriel Nunez MD PCP - General Family Medicine 01/02/11 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 Start Date End Date Uriel Nunez MD PCP - General Family Medicine 01/02/11 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 Start Date End Date Uriel Nunez MD PCP - General Family Medicine 01/02/11 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 Start Date End Date Uriel Nunez MD PCP - General Family Medicine 01/02/11 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 Start Date End Date Uriel Nunez MD PCP - General Family Medicine 01/02/11 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 Start Date End Date Uriel Nunez MD PCP - General Family Medicine 01/02/11 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 Start Date End Date Uriel Nunez MD PCP - General Family Medicine 01/02/11 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 Start Date End Date Uriel Nunez MD PCP - General Family Medicine 01/02/11 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 Start Date End Date Uriel Nunez MD PCP - General Family Medicine 01/02/11 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 Start Date End Date Uriel Nunez MD PCP - General Family Medicine 01/02/11 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 Start Date End Date Uriel Nunez MD PCP - General Family Medicine 01/02/11 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 Start Date End Date Uriel Nunez MD PCP - General Family Medicine 01/02/11 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 Start Date End Date Uriel Nunez MD PCP - General Family Medicine 01/02/11 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 Start Date End Date Uriel Nunez MD PCP - General Family Medicine 01/02/11 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 Start Date End Date Uriel Nunez MD PCP - General Family Medicine 01/02/11 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 Start Date End Date Uriel Nunez MD PCP - General Family Medicine 01/02/11 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 Start Date End Date Uriel Nunez MD PCP - General Family Medicine 01/02/11 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 Start Date End Date Uriel Nunez MD PCP - General Family Medicine 01/02/11 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 Start Date End Date Uriel Nunez MD PCP - General Family Medicine 01/02/11 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 Start Date End Date Uriel Nunez MD PCP - General Family Medicine 01/02/11 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 Start Date End Date Uriel Nunez MD PCP - General Family Medicine 01/02/11 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 Start Date End Date Uriel Nunez MD PCP - General Family Medicine 01/02/11 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 Start Date End Date Uriel Nunez MD PCP - General Family Medicine 01/02/11 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 Start Date End Date Uriel Nunez MD PCP - General Family Medicine 01/02/11 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 Start Date End Date Uriel Nunez MD PCP - General Family Medicine 01/02/11 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 Start Date End Date Uriel Nunez MD PCP - General Family Medicine 01/02/11 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 Start Date End Date rUiel Nunez MD PCP - General Family Medicine 01/02/11 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 Start Date End Date Uriel Nunez MD PCP - General Family Medicine 01/02/11 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 Start Date End Date Uriel Nunez MD PCP - General Family Medicine 01/02/11 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 Start Date End Date Uriel [...] 23, 2023 End: September 26, 2023 Nirmal Pineda DO Emergency Provider Active Start: September 23, 2023 End: September 26, 2023 Sherif Francis MD Admit Provider Active S tart: September 23, 2023 End: September 26, 2023 Heide Alston [facility]- Other Provider Active Start: September 23, 2023 End: September 26, 2023 Regianld Tang MD Other Provider Active Start: September 23, 2023 End: September 26, 2023 John Rodriguez MD Other Provider Active St art: September 23, 2023 End: September 26, 2023 Martin Dorado MD Other Provider Active Start: M ay 2023 End: September 26, 2023 Quintin Holt , Other Provider Active Start: September 23, 2023 End: September 26, 2023 Jayesh Eldridge , Other Provider Active Start: September 23, 2023 [...] Provider Active Start: September 24, 2023 Nirmal Pineda DO Emergency Provider Active Start: September 24, 2023 Sherif Francis MD Admit Provider Active S tart: September 24, 2023 Heide Alston [facility]- Other Provider Active Start: September 24, 2023 Reginald Tang MD Attending Pr ovider, Other Provider Active Start: September 24, 2023 John Rodriguez MD Other Provider Active St art: September 24, 2023 Martin Dorado MD Other Provider Active Start: M ay 2023 Quintin Holt DO Other Provider Active Start: September 24, 2023 Jayesh Eldridge DO Other Provider Active Start: September 24, [...] Provider Active Start: September 25, 2023 Nirmal Pineda , Emergency Provider Active Start: September 25, 2023 Sherif Francis MD Admit Provider Active S tart: September 25, 2023 Heide Alston , [facility]- Other Provider Active Start: September 25, [...] Other Provider Active Start: September 25, 2023 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 Start Date End Date Uriel Nunez MD PCP - General Family Medicine 01/02/11 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 Start Date End Date Uriel Nunez MD PCP - General Family Medicine 01/02/11 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 Start Date End Date Uriel Nunez MD PCP - General Family Medicine 01/02/11 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 Start Date End Date Uriel Nunez MD PCP - General Family Medicine 01/02/11 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 Start Date End Date Uriel Nunez MD PCP - General Family Medicine 01/02/11 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 Start Date End Date Uriel Nunez MD PCP - General Family Medicine 01/02/11 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 Start Date End Date Uriel Nunez MD PCP - General Family Medicine 01/02/11 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 Start Date End Date Uriel Nunez MD [address] [id number] PCP - General Family Medicine 10/21/22 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 Start Date End Date Uriel Nunez MD [address] [place] [address] PCP - General Family Medicine 10/21/22 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 Start Date End Date Uriel Nunez MD [address] [place] [address] PCP - General Family Medicine 10/21/22 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 Start Date End Date Uriel Nunez MD PCP - General Family Medicine 01/02/11 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 Start Date End Date Uriel Nunez MD PCP - General Family Medicine 01/02/11 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 Start Date End Date Uriel Nunez MD PCP - General Family Medicine 01/02/11 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 Start Date End Date Uriel Nunez MD PCP - General Family Medicine 01/02/11 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 Start Date End Date Uriel Nunez MD PCP - General Family Medicine 01/02/11 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 Start Date End Date Uriel Nunez MD PCP - General Family Medicine 01/02/11 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 Start Date End Date Uriel Nunez MD [address] [place] [address] PCP - General Family Medicine 10/21/22 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 Start Date End Date Uriel Nunez MD [address] [place] [address] PCP - General Family Medicine 10/21/22 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 Start Date End Date Uriel Nunez MD PCP - General Family Medicine 01/02/11 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 Start Date End Date Uriel Nunez MD PCP - General Family Medicine 01/02/11 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 Start Date End Date Uriel Nunez MD PCP - General Family Medicine 01/02/11 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 Start Date End Date Uriel Nunez MD [address] [place] [address] PCP - General Family Medicine 10/21/22 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 Start Date End Date Uriel Nunez MD PCP - General Family Medicine 01/02/11 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 Start Date End Date Uriel Nunez MD [address] [place] [address] PCP - General Family Medicine 10/21/22 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 Start Date End Date Uriel Nunez MD PCP - General Family Medicine 01/02/11 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 Start Date End Date Uriel Nunez MD PCP - General Family Medicine 10/01/21 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 Start Date End Date Uriel Nunez MD PCP - General Family Medicine 10/01/21 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 Start Date End Date Uriel Nunez MD PCP - General Family Medicine 01/02/11 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 Start Date End Date Uriel Nunez MD PCP - General Family Medicine 01/02/11 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 Start Date End Date Uriel [...] BE BASED ON THE PRIMARY CLINICAL RECORDS. [facility] [employer] [facility]. provides no warranty or guarantee of the accuracy or completeness of information in this document.
--- NOTE | 2025-03-04 01:23 | ED.CHESTPAI1 ---
HPI - Chest Pain General Chief Complaint: Chest Pain Stated Complaint: fast heart rate Time Seen by Provider: 03/04/25 01:18 Source: patient Mode of arrival: walk-in Limitations: no limitations History of Present Illness HPI narrative: experienced tightness in his chest and dyspnea that lasted about 10-15 minutes and felt like his heart was racing. Driving home he experienced the symptoms again and pulled his car off the side of the road. Now presents here and the discomfort is easing up. Has history of anxiety but does not feel this is his anxiety. Also history of epilepsy and has vagus stimulator in place. Ever since the stimulator was placed his voice has been hoarse and he is suppose to follow up with ENT Related Data Home Medications ?Medication ?Instructions ?Recorded ?Confirmed Phenergan 25 mg PO TID PRN nausea and 12/04/22 03/04/25 vomiting clonazepam 2 mg tablet 2 mg PO TID 12/05/22 03/04/25 cyproheptadine 4 mg tablet 4 mg PO Q12H 12/05/22 03/04/25 lacosamide 100 mg tablet 100 mg PO Q12H 12/05/22 03/04/25 rizatriptan 10 mg disintegrating See Rx Instructions PO .COMPLEX 12/05/22 03/04/25 tablet (Maxalt-[employer]) sertraline 100 mg tablet 300 mg PO Q24H 12/05/22 03/04/25 albuterol sulfate 90 mcg/actuation 2 inh inhalation Q4H PRN shortness 01/19/23 03/04/25 aerosol inhaler of breath or wheezing fluticasone propionate 50 1 spray intranasal Q12H 01/19/23 03/04/25 mcg/actuation nasal spray,suspension erenumab-aooe 140 mg/mL 140 mg subcut .MONTHLY 03/29/23 03/04/25 subcutaneous auto-injector (Aimovig Autoinjector) clonidine HCl 0.1 mg tablet 0.1 mg PO DAILY 09/25/24 03/04/25 erenumab-aooe 140 mg/mL 140 mg subcut .monthly 09/25/24 03/04/25 subcutaneous auto-injector (Aimovig Autoinjector) lorazepam 1 mg tablet (Ativan) 1 mg PO DAILY PRN seizure 09/25/24 03/04/25 lurasidone 80 mg tablet (Latuda) 80 mg PO DAILY 09/25/24 03/04/25 quetiapine 200 mg tablet (Seroquel) 200 mg PO DAILY 09/25/24 03/04/25 quetiapine 50 mg tablet (Seroquel) 50 mg PO TID PRN anxiety 09/25/24 03/04/25 cetirizine 10 mg capsule (Allergy 10 mg PO DAILY PRN allergy symptoms 03/04/25 03/04/25 Relief (cetirizine)) methocarbamol 500 mg tablet 500 mg PO TID PRN muscle spasm 03/04/25 03/04/25 Previous Rx's ?Medication ?Instructions ?Recorded atorvastatin 40 mg tablet (Lipitor) 40 mg PO QPM #30 tabs 03/04/25 losartan 25 mg tablet 25 mg PO QD #30 tabs 03/04/25 metoprolol tartrate 25 mg tablet 25 mg PO BID #60 tabs 03/04/25 Allergies Allergy/AdvReac Type Severity Reaction Status Date / Time desvenlafaxine (From [facility]) Allergy Unknown SEIZURE Verified 03/04/25 01:09 keppra Allergy Unknown Unknown Uncoded 03/04/25 01:09 Review of Systems ROS Status of ROS 10 or more systems reviewed and unremarkable except as noted in history and below [facility] Medical History Osteoarthritis ?M19.90 - Unspecified osteoarthritis, unspecified site (ICD-10) Vertigo ?R42 - Dizziness and giddiness (ICD-10) Degenerative disc disease PTSD (post-traumatic stress disorder) ?F43.10 - Post-traumatic stress disorder, unspecified (ICD-10) Migraine ?G43.909 - Migraine, unspecified, not intractable, without status migrainosus (ICD-10) HIMA (obstructive sleep apnea) ?G47.33 - Obstructive sleep apnea (adult) (pediatric) (ICD-10) Insomnia ?G47.00 - Insomnia, unspecified (ICD-10) GERD (gastroesophageal reflux disease) ?K21.9 - Gastro-esophageal reflux disease without esophagitis (ICD-10) Suicidal ideation ?R45.851 - Suicidal ideations (ICD-10) Bipolar 1 disorder ?F31.9 - Bipolar disorder, unspecified (ICD-10) Anxiety ?F41.9 - Anxiety disorder, unspecified (ICD-10) Respiratory failure requiring intubation ?J96.90 - Respiratory failure, unspecified, unspecified whether with hypoxia or hypercapnia (ICD-10) Depression ?F32.A - Depression, unspecified (ICD-10) Epilepsy ?G40.909 - Epilepsy, unspecified, not intractable, without status epilepticus (ICD-10) Surgical History H/O arthroscopy of left knee ?Z98.890 - Other specified postprocedural states (ICD-10) History of radiofrequency ablation (RFA) of nerve of lumbar spine ?Z98.890 - Other specified postprocedural states (ICD-10) 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 ?Z96.89 - Presence of other specified functional implants (ICD-10) Family History Mother Family history of stroke Family history of diabetes mellitus Father Family history of myocardial infarction Family history of CHF (congestive heart failure) Family history of COPD (chronic obstructive pulmonary disease) Family history of diabetes mellitus Grandmother Family history of diabetes mellitus Social History Within the past year, how often did you have a drink containing alcohol: never Score interpretation: A score less than 4 is consistent with normal alcohol consumption. Smoking status: Never smoker Non-prescribed substance use: denies use Highest level of school completed/degree received: high school graduate Little interest or pleasure in doing things: not at all Feeling down, depressed, or hopeless: not at all Exam Constitutional Vital Signs, click to edit/add: Last Vital Signs Temp 99.3 F 03/04/25 11:14 Pulse 91 H 03/04/25 11:55 Resp 18 03/04/25 06:04 BP 141/84 03/04/25 11:14 Pulse Ox 93 L 03/04/25 11:14 O2 Del Method Room Air 03/04/25 11:14 Common normals: no apparent distress, average body habitus, oriented x3, no limitations, healthy appearing, alert and well nourished [facility] Common normals: normocephalic and head/scalp atraumatic Eye Common normals: EOMs intact bilaterally and conjunctivae normal Chest Common normals: inspection of chest normal, palpation of chest normal and inspection of breasts normal Respiratory Common normals: normal respiratory effort, no retractions, no use of accessory muscles and clear to auscultation bilaterally Cardio Common normals: regular rate, regular rhythm, S1 normal heart sound and S2 normal heart sound GI Common normals: Normal to inspection, nondistended, normoactive bowel sounds present, soft to palpation and non-tender Extremity Common normals: normal to inspection and full ROM Neuro Common normals: oriented x3, CN's II-XII intact bilaterally, moves all extremities and no focal motor deficits Psych Appearance: grossly normal Course Vital Signs Vital signs: Vital Signs Temperature 98.3 F 03/04/25 01:00 Pulse Rate 105 H 03/04/25 01:00 Respiratory Rate 24 H 03/04/25 01:00 Blood Pressure 150/100 H 03/04/25 01:00 Pulse Oximetry 99 03/04/25 01:00 Oxygen Delivery Method Room Air 03/04/25 01:00 Temperature 99.3 F 03/04/25 11:14 Pulse Rate 91 H 03/04/25 11:55 Respiratory Rate 18 03/04/25 06:04 Blood Pressure 141/84 03/04/25 11:14 Pulse Oximetry 93 L 03/04/25 11:14 Oxygen Delivery Method Room Air 03/04/25 11:14 MDM - Chest Pain MDM Narrative Medical decision making narrative: patient presents with recurrent chest pain associated with dyspnea. No nausea or vomiting. No known history of CAD workup neg including serial troponin. EKG with sinus tachycardia. Pain improved with nitro. Cxray per my preliminary review is normal. Hospitalist paged Lab Data Labs: Lab Results 03/04/25 03/04/25 Range/Units 01:12 03:50 WBC 11.1 H (4.0-11.0) 10^3/uL RBC 5.57 (4.70-6.10) 10^6/uL Hgb 16.4 (14.0-18.0) g/dL Hct 48.4 (42.0-54.0) % MCV 86.9 (80.0-94.0) fL MCH 29.4 (25.9-34.0) pg MCHC 33.9 (29.9-35.2) g/dL RDW 12.4 (11.0-15.0) % Plt Count 333 (150-450) 10^3/uL MPV 9.3 L (9.5-13.5) fL Neut % (Auto) 66.6 (43.0-75.0) % Lymph % (Auto) 24.3 (20.5-60.0) % [place] % (Auto) 7.2 (1.7-12.0) % Eos % (Auto) 0.9 (0.9-7.0) % Baso % (Auto) 0.7 (0.2-2.0) % Neut # (Auto) 7.4 H (1.4-6.5) 10^3/uL Lymph # (Auto) 2.7 (1.2-3.8) 10^3/uL [place] # (Auto) 0.8 (0.3-0.8) 10^3/uL Eos # (Auto) 0.1 (0.0-0.7) 10^3/uL Baso # (Auto) 0.1 (0.0-0.1) 10^3/uL Abs Immat Gran (auto) 0.03 (0.00-0.03) 10^3/uL Imm/Tot Granulo (auto) 0.3 (0.0-0.5) % D-Dimer <0.19 (<=0.59) mg/L FEU Sodium 143 (136-145) mmol/L Potassium 3.7 (3.5-5.1) mmol/L Chloride 102 (98-107) mmol/L Carbon Dioxide 30.1 (21.0-32.0) mmol/L Anion Gap 14.6 BUN 12.0 (7.0-18.0) mg/dL Creatinine 0.89 (0.70-1.30) mg/dL Est GFR ( Amer) >60 (>=60 mL/min/1.73m^2) Est GFR (Non-Af Amer) >60 (>=60 mL/min/1.73m^2) BUN/Creatinine Ratio 13.5 Glucose 115 H (74-106) mg/dL Calcium 9.7 (8.5-10.1) mg/dL Troponin I High Sens 11.1 11.5 (4.0-76.1) pg/mL Triglycerides 159 H (<=150) mg/dL Cholesterol 268 H (<=200) mg/dL LDL Cholesterol, Calc 191.0 mg/dL VLDL Cholesterol 31.8 mg/dL HDL Cholesterol 46 (40-60) mg/dL Cholesterol/HDL Ratio 5.8 Discharge Plan Discharge Chief Complaint: Chest Pain Clinical Impression: Chest pain Patient Disposition: Admitted as Observation Condition: Good Discharge Date/Time: 03/04/25 05:47
--- NOTE | 2025-03-04 01:33 | XR_ITS ---
The [address] [address] Patient Name: AMEYA EMZA MRN: [id number] date: 1980 Sex: M Assigned Patient Location: ER Current Patient Location: [place] Accession/Order Number: [id number] Exam Date: 03/04/2025 01:35 Report Date: 03/04/2025 08:28 At the request of: KEVIN STERN MD Procedure: XR chest 1V XR chest 1V 03/04/2025 1:44 AM SIGNS AND SYMPTOMS: ^chest pain PROTOCOL: Frontal radiograph of the chest COMPARISON: 05/05/2023 FINDINGS: The trachea is midline. The heart and mediastinal structures are within normal limits. The lung parenchyma is clear. A stimulator generator is noted over the left anterior chest wall with the lead extending into the lower neck. The bony thorax is intact. XR/XR chest 1V IMPRESSION: No acute cardiopulmonary pathology. Impression dictated by: Master Coleman M.D. 03/04/2025 8:28 AM Dictation Location: [place] [address] Electronically authenticated by: [id number] Y Date: 03/04/2025 08:28
[2025-03-04 01:43] LABS: Hematocrit 48.4 % (42.0-54.0); Hemoglobin 16.4 g/dL (14.0-18.0); Immature Granulocytes Abs Auto 0.03 10^3/uL (0.00-0.03); Immature Granulocytes Pct Auto 0.3 % (0.0-0.5); Lymphocytes Absolute Auto 2.7 10^3/uL (1.2-3.8); Mean Corpuscular HGB Conc 33.9 g/dL (29.9-35.2); Mean Corpuscular Hemoglobin 29.4 pg (25.9-34.0); Mean Corpuscular Volume 86.9 fL (80.0-94.0); Platelet Count 333 10^3/uL (150-450); Red Blood Count 5.57 10^6/uL (4.70-6.10); White Blood Count 11.1 10^3/uL (4.0-11.0)
[2025-03-04 01:59] LABS: Anion Gap 14.6; Blood Urea Nitrogen 12.0 mg/dL (7.0-18.0); Calcium 9.7 mg/dL (8.5-10.1); Carbon Dioxide 30.1 mmol/L (21.0-32.0); Chloride 102 mmol/L (98-107); Estimated GFR (African America >60 (>=60 mL/min/1.73m^2); Estimated GFR (Non-African Ame >60 (>=60 mL/min/1.73m^2); Glucose 115 mg/dL (74-106); Potassium 3.7 mmol/L (3.5-5.1); Sodium 143 mmol/L (136-145)
[2025-03-04] MEDS: NITROGLYCERIN 0.4 MG BOTTLE SL (04:53)
--- OUTSIDE RECORDS SUMMARY | 2025-03-04 05:55 | XMS_ITS | CCD ---
Author Organization [facility] Care Team Providers Care Technical Coordinator Name Role Phone SIRISHATOMAS YOUNGY Unavailable Unavailable Uriel Nunez MD Primary Care Provider [phone] Uriel Nunez MD Primary Care Provider [phone] Uriel Nunez MD Primary Care Provider [phone] Uriel Nunez MD Primary Care Provider [phone] DR URIEL LAU Primary Care Unavailable KEVIN [...] MD Uriel Nunez Primary Care Provider MD Tiawo Trujillo Attending Provider [phone] DO Nirmal Pineda Emergency Provider [phone] MD Sherif Francis Admit Provider [phone] MD Sherif Francis Attending Provider AMEENA Alston Other Provider MD Reginald Tang Other Provider MD John Rodriguez Other Provider MD Martin Dorado Other Provider DO Quintin Holt Other Provider DO Jayesh Eldridge Other Provider [phone] MD Scott Monterroso Other Provider MD Rober Bonner Other Provider MD Joselito Daily Other Provider MD Mary Calhoun Attending Provider MD Taiwo Trujillo Other Provider Nahed Doran Attending Unavailable DO Issa Levy Attending Unavailable Nahed Doran Attending Unavailable Nahed Doran Attending Unavailable Nahed Doran Attending Unavailable Nahed Doran Admitting Unavailable DO Virgil Dozier Attending Unavailable DO Virgil Dozier Attending Unavailable HOY, URIEL M Primary Care Unavailable ESTELA VARGAS Attending Unavailable ESTELA VARGAS Attending Unavailable ESTELA VARGAS Referring Unavailable HOY, URIEL M Primary Care Unavailable HOY, URIEL M Primary Care Unavailable NIENBERG, CHESTER M Attending Unavailable DANIA ERVIN Referring Unavailable HOY, URIEL M Primary Care Unavailable NIENBERG, CEHSTER M Referring Unavailable HOY, URIEL M Primary Care Unavailable NIENBERGCHESTER M Referring Unavailable HOY, URIEL M Primary Care Unavailable Uriel Nunez MD Primary Care Provider [phone] HOY, URIEL M Primary Care Unavailable [...] HOY, URIEL M Primary Care Unavailable MYA ETNA Referring Unavai lable MYA TENA Attending Unavai [...] Uriel Nunez MD M Primary Care Provider [phone] KRZYSZTOF KRZYSZTOF E Attending Unavailable KRZYSZTOF, KRZYSZTOF [...] Allergy 01-13-20 14 Other: See Comments [facility] (20 sources) Ketorolac; Translations: [KETOROLAC TROMETHAMINE] Drug Allergy 09-15-19 17 Unknown [facility] (20 sources) levETIRAcetam; Translations: [levetiracetam] Drug Allergy 08-01-19 11 Other: See Comments, Unknown (qualifier value) [facility] (1 source) Acetaminophen / oxyCODONE Drug Allergy [facility] Repository (3 sources) Desvenlafaxine; Translations: [Pristiq] Drug Allergy [facility] Repository (2 sources) Ketorolac Drug Allergy 09-28-19 21 [facility] Repository (3 sources) levETIRAcetam; Translations: [Keppra] Drug Allergy [facility] Repository (1 source) Mazindol Drug Allergy [facility] Repository (3 sources) Desvenlafaxine; Translations: [DESVENLAFAXINE SUCCINATE] Drug Allergy 10-02-19 22 [facility] Repository (11 sources) Desvenlafaxine Drug Allergy 01-13-20 14 Hallucinations , Unknown [facility] (11 sources) Ketorolac trometamol Propensity to adverse reactions 09-15-19 17 Unknown [facility] (11 sources) Levetiracetam Allergy to substance 09-20-19 09 Anxiety, Unknown [facility] (1 source) Desvenlafaxine Drug Allergy 01-02-20 [facility] Repository (1 source) levETIRAcetam Drug Allergy 01-02-20 [facility] Repository Medications Current Medications Medication Drug Class(es) [...] and PS 4-8cmh2O. His DME company is [employer] , new mask to fit patient preference, [...] and PS 4-8cmh2O. His DME company is [employer] , new mask to fit patient preference, [...] and PS 4-8cmh2O. His DME company is [employer] , new mask to fit patient preference, [...] day(s), # 28 cap(s), Refills(s) 0, Pharmacy: [facility]/pharmacy #[id number], 178, cm, 12/01/23 19:37:00 [...] Start: 09-21-2020 take 1 capsule by mo [facility] every twelve hours as needed docusate sodium (COLACE) 100 mg capsule Take 1 capsule by mouth twice daily as needed for Constipation. 60 capsule 0 09/21/2020 Active Comment on above: Take 1 capsule by mo ut twice daily as needed for Constipation. ergocalciferol 1.25 mg oral capsule (11 sources) Provitamin D2 Compound Start: 09-29-19 ergocalciferol (Vitamin D2) 1.25 MG (33515 UT) capsule TAKE 1 CAPSULE BY MOUTH EVERY 7 DAYS FOR 28 DAYS 09/29/2023 Active fluticasone (20 sources) Corticosteroid Start: 09-20-19 take 1 spray(s) nasal route once daily fluticasone nasal one spray, Nasal, Daily, Refill(s) 0, in each nostril, Allergy symptoms Start Date: 09/19/22 Status: Ordered take 1 spray(s) nasal route twic e daily fluticasone (FLONASE) 50 mcg/actuation nasal spray Use 1 [place] in each nostril twice daily. Active fluticasone (Sai nase) 50 MCG/ACT nasal spray 1 spray in the morning and 1 spray in the evening. Active fluticasone prop ionate (FLONASE) 50 mcg/actuation nasal spray 1 spray by NOT APPLICABLE route in the morning and 1 spray before bedtime. Active Comment on above: Use 1 [place] in each nostril twice daily. ibuprofen 800 [...] on above: Take 1 capsule by mo [facility] twice daily with meals. lacosamide 100 [...] 30 DAYS 03/29/2024 Active polyethylene glycol 3350 41221 mg powder for oral solution (1 source) [...] Agonist Start: 12-12-2022 End: 08-17-2024 rizatriptan (MAXALT GROUND CREWMAN) 10 mg disintegrating tablet Indications: Chronic migraine [...] two hours as needed for headache rizatriptan (MAXALT-GROUND CREWMAN) 10 mg disintegrating tablet Indications: Chronic migraine [...] day(s), # 12 tab(s), Refills(s) 0, Pharmacy: [facility]/pharmacy #[id number], 178, cm, 04/22/23 21:32:00 [...] Nausea/Vomiting, # 12 tab(s), Refills(s) 0, Pharmacy: [facility]/pharmacy #[id number], 178, cm, 12/01/23 19:37:00 [...] Episodic Other aftercare (1 source) 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 therapy; Translations: [OTH SHELTER CURRENT DRUG THERAPY] Onset: 3 Episodic Other [...] Test Name Value Interpretation Reference Range Facility [facility] 11-14-2024 [facility] Telephone (NE50MN) -- SANKETJAYE ([id number]) 1980 M Date Time Provider Department 11/14/24 [facility] NE50MN During your visit today, we recorded the following information about you: Joann AssViviane small 11/14/2024 4:18 PM Signed General call : Full name of person calling: Jaye Harvey Relationship to patient: self Phone # : [phone] Reason for call: Patient states his voice has not recovered since VNS implanted 8 weeks ago Patient of Dr. South/Dayna Coyle RN 11/15/2024 8:[address] Borrero: 09/26/2024: Left replacement of Vagal nerve stimulator electrode Left voicemail for pt. To return call NICHOLAS RamirezYu 11/15/2024 12:19 PM Signed Jaye Harvey returned call to NICHOLAS Murphy. Patient awaiting call back at [phone] Geovanna Milian RN 11/15/2024 1:34 PM Signed [...] Date Reviewed: 10/13/2024 Reviewed by: Kanika Read APRN.STEEL POURER - Fully Assessed Reason for Visit: General [Other] Cmt: VNS - Voice Has Not Recovered Primary Visit Diagnosis:Hoarseness of voice [R49.0] Other Visit Diagnosis: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 [Z96.89] Order(s):CONSULT TO ENT [9008] Order #: [id number]: 1 FUTURE Prescriptions as of 11/15/2024 - [...] hours for 90 days. - rizatriptan (MAXALT GROUND CREWMAN) [address] 1 TABLET [...] and PS 4-8cmh2O. His DME company is [employer] mask to fit patient preference, ramp, humidification and unlimited supplies Please send us machine download in 1 month - CPAP Please send us machine download in 1 month - Cetirizine 10 mg cap Take 1-2 tablets by mouth as needed. - fluticasone (FLONASE) 50 mcg/actuation nasal spray Use 1 [place] in each nostril twice daily. - albuterol HFA (PROVENTIL HFA, VENTOLIN HFA) 90 mcg/actuation inhaler Inhale 1-2 Puffs as instructed as needed for Wheezing/Shortness of Breath. Problem List As Of Date 11/14/2024 Noted Resolved Epilepsy (HCC) [G40.909] 06/18/2004 Epilepsy with altered consciousness without int*07/31/2010 Depression with a (more content not included)... [facility] CNOVon 10-13-2024 CNOV Office Visit (NE50MN ) -- JAYE HARVEY ([id number]) 1980 M Date Time Provider Department 10/13/24 9:30 AM KANIKA READ NE50MN During your visit today, we recorded the following information about you: Pulse Blood pressure Weight Height 98/minute 138/92 95.3 kg 1.778 m Kanika Read APRN.CNP 10/13/2024 12:47 PM Signed [facility] CHIEF COMPLAINT: seizures HISTORY OF [...] recently by Dr. Borrero during admission to [facility] 09/25/2024 for VNS reimplantation. No seizures since last visit, last 2012. He remains on LCM 100 mg BID and KLP 2 mg TID. He notes anxiety recently, following w/ Dr. Rider. He is following w/ pain mgmt for chronic back pain, recently had L5-S1 ablation. Reports feeling better since procedure. Notes ongoing migraines, plans to discuss w/ [facility]EL team. He works at [employer] Drives. VNS returned to previous settings, patient tolerated well. AspireSR M106 S/N: [id number] Implant Date: 09/26/2024 Lead impedence: [place], 2293 [...] Model Number SenTiva M1000 VNS Serial Number [id number] Date of Implantation August 31, 2023 Stimulation [...] or problems with the image (Done at [facility] and not available for review). His VNS is working well on his current evaluation today. He has a history of anxiety, obstructive sleep apnea, migraines and medically intractable left temporal lobe epilepsy, diagnosed in 2004 at [facility]. He did not want to pursue surgery at that time due to concerns of memory decline and had a VNS implanted. He has had multiple revisions, the last of which was in 01/2013 at [place]. He feels that his VNS has stopped working because his auras have returned, but his battery is at 75%. His PCP Dr. Nunez who has been managing his epilepsy locally referred him back to [facility] to discuss further options. He is [...] by m (more content not included)... Normal [facility] 10-03-2024 [facility] Telephone (NEUSES) -- JAYE HARVEY ([id number]) 1980 M Date Time Provider Department 10/03/24 JOHANN BORRERO During your visit today, we recorded the following information about you: Amber Melchor 10/03/2024 11:34 AM Signed General call : Full name of person calling: Jaye Harvey Relationship to patient: self Phone # : [phone] Reason for call: Patient called and wants [...] 10/03/2024 1:25 PM Signed Letter completed via [employer], copy sent to pt. Via [employer] as requested. Dayan Knott RN Allergies As [...] hours for 90 days. - rizatriptan (MAXALT GROUND CREWMAN) [address] 1 TABLET [...] and PS 4-8cmh2O. His DME company is [employer] mask to fit patient preference, ramp, humidification and unlimited supplies Please send us machine download in 1 month - CPAP Please send us machine download in 1 month - Cetirizine 10 mg cap Take 1-2 tablets by mouth as needed. - fluticasone (FLONASE) 50 mcg/actuation nasal spray Use 1 [place] in each nostril twice daily. - albuterol [...] major dep (more content not included)... Normal [facility] 09-28-2024 CNPN Telephone (NE50MN) -- JAYE HARVEY ([id number]) 1980 M Date Time Provider Department 09/28/24 [...] hours for 90 days. - rizatriptan (MAXALT GROUND CREWMAN) [address] 1 TABLET [...] and PS 4-8cmh2O. His DME company is [employer] mask to fit patient preference, ramp, humidification and unlimited supplies Please send us machine download in 1 month - CPAP Please send us machine download in 1 month - Cetirizine 10 mg cap Take 1-2 tablets by mouth as needed. - fluticasone (FLONASE) 50 mcg/actuation nasal spray Use 1 [place] in each nostril twice daily. - albuterol HFA (PROVENTIL HFA, VENTOLIN HFA) 90 mcg/actuation inhaler Inhale 1-2 Puffs as instructed as needed for Wheezing/Shortness of Breath. Problem List As Of Date 09/28/2024 Noted Resolved Epilepsy (HCC) [G40.909] 06/18/2004 Epilepsy with altered consciousness without int*07/31/2010 Depression with anxiety [F41.8] 01/12/2014 (more content not included)... [facility] CASE MANAGEMon 09-27-2024 CASE MANAGEM HNO ID: [id number] Author: ERA GONZALEZ, ? Service: ? Author Type: ? Type: Care Mgt Progress Note Filed: 09/27/2024 11:16 Note Text: CARE MANAGEMENT PROGRESS NOTE SERVICE DATE: 09/27/2024 SERVICE TIME: 11:16 AM LOS: 2 days IMM Follow Up Copy Given: Yes Copy given to:: Patient Method: In Person SIGNATURE: Era Gonzalez CMA PATIENT NAME: Jaye Harvey DATE: September 27, 2024 TIME: 11:16 AM [facility] CNCOon 09-27-2024 CNCO Letter Text Letter Text [facility] ANES POSTPROC EVALon 025 ANES POSTPROC EVAL HNO ID: [id number] Author: JULIETTE BRANTLEY MD Service: ? Author Type: Anesthesiologist Type: Anesthesia Postprocedure Evaluation Filed: 09/26/2024 15:56 Note Text: POST ANESTHESIA EVALUATION NOTE : 1980 Procedure Summary Date: 09/26/24 [address] An[address]hesia Start: 1234 Anesthesia Stop: 1542 [...] September 26, 2024 TIME: 3:56 PM [facility] [id number] [facility] PRE-[facility] 09-26-2024 ANES PRE-OP HNO ID: [id number] Author: JULIETTE BRANTLEY MD Service: ? Author [...] and consent discussed: yes. Patient / Responsible Alliance Party agrees to proceed: yes Patient / [...] 12 hours for 90 days. rizatriptan (MAXALT GROUND CREWMAN) (more content not included)... [facility] BRIEF OP NOTon 09-26-2024 BRIEF OP NOT HNO ID: [id number] Author: ERNIE OTRRES MD Service: ? Author Type: Resident Type: Brief Op Note Filed: 09/26/2024 15:24 Note Text: BRIEF OPERATIVE / PROCEDURE NOTE LOG ID: [id number] SURGERY/PROCEDURE DATE: 09/26/2024 INCISION/PROCEDURE START TIME: 1:17 PM INCISION CLOSE/PROCEDURE END TIME: 3:14 PM SURGEON(S)/PROCEDURALIST(S ) AND REHABILITATION SERVICES DIRECTOR(S): Surgeons and Role: * Johann Borrero MD [...] Implant Name Type Inv. Item Serial No. Lead Miner Blasting Lot No. LRB No. Used Action GENERATOR VNS THERAPY ASPIRESR THK7MM NEUROSTIMULATOR 14CC 1 PIN LEAD - [id number] Neurostimulator GENERATOR VNS THERAPY ASPIRESR THK7MM NEUROSTIMULATOR 14CC 1 PIN LEAD [id number] [facility] Left 1 Implanted CLOSURE TECHNIQUE: Primary PRE-OP/PRE-PROCEDURE DIAGNOSIS: MRE POST-OP/POST-PROCEDURE DIAGNOSIS: Same as Preop Patient was accompanied to the next level of care by a licensed practitioner from the surgical team pending completion of this brief op note (or operative note) SIGNATURE: Ernie Torres MD PATIENT NAME: Jaye Harvey DATE: September 26, 2024 TIME: 3:23 PM [facility] CNDSon 09-26-2024 CNDS HNO ID: [id number] Author: JOHANN BORRERO MD Service: Neurosurgery Author Type: Physician Broom Machine Operator Type: Discharge Summary Filed: 10/03/2024 08:22 Note Text: -- Attestation signed by Johann Borrero MD at 10/03/2024 8:22 AM -- [facility] DISCHARGE SUMMARY Account #: Data Unavailable Admission Date: 09/25/2024 Date of Evaluation: 09/29/2024 Time of Evaluation: 2:40 PM Attending: Johann Steward MD. Location: [facility] 003/H063-03 Discharge Date: 09/27/2024 Attending Physician: Johann Borrero MD PCP: Uriel Nunez MD [phone] Treatment Team: Primary Service: Adele Ochoa PA-C [...] Course: The patient was transferred from another [facility] hospital to [facility]. After being optimized for surgery by the [...] hours for 90 days. Yes rizatriptan (MAXALT GROUND CREWMAN) [address] 1 TABLET [...] (FLONASE) 50 mcg/actuation nasal spray Use 1 [place] in each nostril twice daily. Yes albuterol [...] BY MO (more content not included)... [facility] NURSING PROGon 09-26-2024 NURSING PROG HNO ID: [id number] Author: JONATHON ALTMAN RN Service: ? Author Type: Registered Nurse Type: Nursing Progress Note Filed: 09/26/2024 16:41 Note Text: Admission/Transfer Note PATIENT NAME: Jaye Harvey Patient Location: [place] [address]/60 Room: [place] [address] Patient transferred from PACU via bed in stable condition. Actions taken: Patient oriented to room, call light function, prescribed activities, Patient rights, and Quiet at night. This note was completed by: Jonathon Mike [facility] OPERATIVE NOon 09-26-2024 OPERATIVE NO HNO ID: [id number] Author: JOHANN BORRERO MD Service: Neurosurgery Author Type: Physician Type: Operative Report Filed: 09/26/2024 17:09 Note Text: OPERATIVE/PROCEDURE REPORT LOG ID: [id number] SURGERY/PROCEDURE DATE: 09/26/2024 INCISION/PROCEDURE START TIME: 1:17 PM INCISION CLOSE/PROCEDURE END TIME: 3:14 PM SURGEON(S)/PROCEDURALIST(S ) AND REHABILITATION SERVICES DIRECTOR(S): Surgeons and Role: * Johann Borrero MD [...] Implant Name Type Inv. Item Serial No. Lead Miner Blasting Lot No. LRB No. Used Action GENERATOR VNS THERAPY ASPIRESR THK7MM NEUROSTIMULATOR 14CC 1 PIN LEAD - [id number] Neurostimulator GENERATOR VNS THERAPY ASPIRESR THK7MM NEUROSTIMULATOR 14CC 1 PIN LEAD [id number] [facility] Left 1 Implanted DRAINS: None COMPLICATIONS: None CLOSURE TECHNIQUE: Primary PARTICIPATION IN SURGERY/PROCEDURE: I/primary surgeon/proceduralist performed the procedure with assistance. SIGNATURE: Johann Borrero MD PATIENT NAME: Jaye Harvey DATE: September 26, 2024 TIME: 5:07 PM [facility] Pathology biopsy report Luis (Tiss)on 09-26-2024 CASE REPORT [facility] Comment on above: Order Comment: Aurora garcia Type: DEVICE SPECIMENOrdering Facility: [facility] Address: [address] [place] [address] Result Comment: Surg [facility] Pathology Report Case: [id number] Authorizing Provider: Johann Borrero MD Collected: 09/26/2024 03:03 PM Ordering Location: Admitting Received: 09/26/2024 03:17 PM Pathologist: Hanh Ventura MD Specimen: Hardware/Device/Foreign Body, EXPLANTED GENERATOR FOR ACCESSION ONLY Performed By: #### 6 6121-5 ####[facility] LABIA [id number] [place] [address] [place] CLINICAL HISTORY Normal [facility] Comment on above: Order Comment: Aurora garcia Type: DEVICE SPECIMENOrdering Facility: [facility] Address: [address] [place] [address] Result Comment: Pre- op diagnosis: 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 [Z96.89] Performed By: #### 6 6121-5 ####[facility] LABCLIA [id number] [address] FINAL DIAGNOSIS [facility] Comment on above: Order Comment: Speci men Type: DEVICE SPECIMENOrdering Facility: [facility] Address: [address] [place] [address] Result Comment: A. H ardware, removal: - Pulse generator identified (gross examination only). CK/WE September 27, 2024 12:37 PM Gross examination performed at [facility], [address] [place] [address] at 1707 EDT Performed By: #### 6 6121-5 ####[facility]CLIA [id number] [address] OF [facility] FINAL PERFORMING LAB Normal [facility] Comment on above: Order Comment: Speci men Type: DEVICE SPECIMENOrdering Facility: [facility] Address: [address] [place] [address] Result Comment: Diag nostic interpretation performed at: [facility], [address] [place] [address] CLIA# [id number] Batch Unit Treater: Kendrick Salcedo MD Performed By: #### 6 6121-5 ####[facility]CLIA [id number] [address] OF [place] GROSS DESCRIPTION Normal [facility] Comment on above: Order Comment: Speci men Type: DEVICE SPECIMENOrdering Facility: [facility] Address: [address] [place] [address] Result Comment: A. H ardware/Device/Foreign Body Received fresh designated generator is a pulse generator with the inscription aspireSR model [id number]. There is an attached lead wire that measures 31 cm in length. There is no tissue present. The specimen is reviewed by Dr. Ventura. WE September 27, 2024 12:37 PM Gross examination performed at [facility], [address] [place] [address] Performed By: #### 6 6121-5 ####[facility]CLIA [id number] [address] [place] XR CERVICAL 2V [...] in expected position. No other significant abnormality. Mingle Operator: PSCB Transcribe Date/Time: Sep 26 2024 4:33P Dictated by : SANFORD LANDA MD This examination was interpreted and the report reviewed and electronically signed by: SANFORD LANDA MD on Sep 26 2024 4:36PM EST [id number] [facility] CBC W Auto Differential pane l (Bld)on 09-25-2024 Basophils (Bld) [#/Vol] 0.07 10*3/uL Normal <0.11 [facility] Comment on above: Order Comment: Speci men Type: BLOOD SPECIMENOrdering Facility: [facility] Address: [address] [place] [address] Performed By: #### 5 7021-8 ####[facility]CLIA [id number] [address] Basophils/100 WBC (Bld) 0.6 % [facility] Comment on above: Order Comment: Speci men Type: BLOOD SPECIMENOrdering Facility: [facility] Address: [address] [place] [address] Performed By: #### 5 7021-8 ####[facility]CLIA [id number] [place] [address] [place] Differential cell count method Nom (Bld) Auto [facility] Comment on above: Order Comment: Speci men Type: BLOOD SPECIMENOrdering Facility: [facility] Address: [address] [place] [address] Performed By: #### 5 7021-8 ####[facility]CLIA [id number] [place] [address] [place] Eosinophils (Bld) [#/Vol] 0.17 10*3/uL Normal <0.46 [facility] Comment on above: Order Comment: Speci men Type: BLOOD SPECIMENOrdering Facility: [facility] Address: [address] [place] [address] Performed By: #### 5 7021-8 ####[facility] [id number] [place] [address] [place] Eosinophils/100 WBC (Bld) 1.5 % [facility] Comment on above: Order Comment: Speci men Type: BLOOD SPECIMENOrdering Facility: [facility] Address: [address] [place] [address] Performed By: #### 5 7021-8 ####[facility]CLIA [id number] [place] [address] [place] Erythrocyte distribution width (RBC) [Ratio] 12.7 % Normal 11.5-15.0 [facility] Comment on above: Order Comment: Speci men Type: BLOOD SPECIMENOrdering Facility: [facility] Address: [address] [place] [address] Performed By: #### 5 7021-8 ####[facility] LABCLIA [id number] [place] [address] [place] Hematocrit (Bld) [Volume fraction] 45.5 % Normal 39.0-51.0 [facility] Comment on above: Order Comment: Speci men Type: BLOOD SPECIMENOrdering Facility: [facility] Address: [address] [place] [address] Performed By: #### 5 7021-8 ####[facility]CLIA [id number] [place] [address] [place] Hemoglobin (Bld) [Mass/Vol] 15.6 g/dL Normal 13.0-17.0 [facility] Comment on above: Order Comment: Speci men Type: BLOOD SPECIMENOrdering Facility: [facility] Address: [address] [place] [address] Performed By: #### 5 7021-8 ####[facility] [id number] [place] [address] [place] Immature granulocytes (Bld) [#/Vol] 0.06 10*3/uL Normal <0.10 [facility] Comment on above: Order Comment: Speci men Type: BLOOD SPECIMENOrdering Facility: [facility] Address: [address] [place] [address] Performed By: #### 5 7021-8 ####[facility] [id number] [place] [address] [place] Immature granulocytes/100 WBC (Bld) 0.5 % Normal [facility] Comment on above: Order Comment: Speci men Type: BLOOD SPECIMENOrdering Facility: [facility] Address: [address] [place] [address] Performed By: #### 5 7021-8 ####[facility] [id number] [place] [address] [place] Lymphocytes (Bld) [#/Vol] 2.86 10*3/uL Normal 1.00-4.00 [facility] Comment on above: Order Comment: Speci men Type: BLOOD SPECIMENOrdering Facility: [facility] Address: [address] [place] [address] Performed By: #### 5 7021-8 ####[facility] [id number] [place] [address] [place] Lymphocytes/100 WBC (Bld) 24.7 % Normal [facility] Comment on above: Order Comment: Speci men Type: BLOOD SPECIMENOrdering Facility: [facility] Address: [address] [place] [address] Performed By: #### 5 7021-8 ####[facility] [id number] [place] [address] [place] MCH (RBC) [Entitic mass] 28.6 pg Normal 26.0-34.0 [facility] Comment on above: Order Comment: Speci men Type: BLOOD SPECIMENOrdering Facility: [facility] Address: [address] [place] [address] Performed By: #### 5 7021-8 ####[facility] [id number] [place] [address] [place] MCHC (RBC) [Mass/Vol] 34.3 g/dL Normal 30.5-36.0 [facility] Comment on above: Order Comment: Speci men Type: BLOOD SPECIMENOrdering Facility: [facility] Address: [address] [place] [address] Performed By: #### 5 7021-8 ####[facility] [id number] [place] [id number] [place] MCV (RBC) [Entitic vol] 83.5 fL Normal 80.0-100.0 [facility] Comment on above: Order Comment: Speci men Type: BLOOD SPECIMENOrdering Facility: [facility] Address: [address] [place] [address] Performed By: #### 5 7021-8 ####[facility] [id number] [facility] [address] [place] [address] [place] Monocytes (Bld) [#/Vol] 0.84 10*3/uL Normal <0.87 [facility] Comment on above: Order Comment: Speci men Type: BLOOD SPECIMENOrdering Facility: [facility] Address: [address] [place] [address] Performed By: #### 5 7021-8 ####[facility] [id number] [facility] [address] [place] [address] [place] Monocytes/100 WBC (Bld) 7.3 % Normal [facility] Comment on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 insurance company to find a nearby participating provider. Patient Education Materials: Abdominal Pain, Adult A MESSAGE TO ALL PATIENTS REGARDING OPIOIDS PRESCRIPTION OPIOIDS: WHAT YOU NEED TO KNOW Prescription opioids can be used to help relieve ohinysgc-df-gnpoub pain and are often prescribed following a [...] be struggling with addiction, tell your health director of primary care and ask for guidance or call [facility]?S National Helpline at 3-418-269-TIIZ. c Source: [facility] (more content not included)... Normal [facility] BMPon 12-01-2023 Anion gap [Moles/Vol] 12 mmol/L Normal 6-16 [facility] Comment on above: Performed By: #### 2 [id number] #### [facility] [address] [place] [address] Calcium [Mass/Vol] 9.6 mg/dL Normal 8.9-11.[address] [facility] Comment on above: Performed By: #### 2 [id number] #### [facility] [address] [place] [address] Chloride [Moles/Vol] 100 mmol/L Low 101-111 [facility] Comment on above: Performed By: #### 2 [id number] #### [facility] [address] [place] [address] CO2 [Moles/Vol] 28 mmol/L Normal 21-[address] [facility] Comment on above: Performed By: #### 2 [id number] #### [facility] [address] [place] [address] Creatinine [Mass/Vol] 0.7 mg/dL Normal 0.5-1.3 [facility] Comment on above: Performed By: #### 2 [id number] #### [facility] [address] [place] [address] Glucose [Mass/Vol] 120 mg/dL Normal 55-[address] [facility] Comment on above: Performed By: #### 2 [id number] #### [facility] [address] [place] [address] Potassium [Moles/Vol] 4.0 mmol/L Normal 3.5-5.3 [facility] Comment on above: Performed By: #### 2 [id number] #### [facility] [address] [place] [address] Sodium [Moles/Vol] 136 mmol/L Normal 135-[address] [facility] Comment on above: Performed By: #### 2 [id number] #### [facility] [address] [place] [address] Urea nitrogen [Mass/Vol] 13 mg/dL Normal 5-[address] [facility] Comment on above: Performed By: #### 2 [id number] #### [facility] [address] [place] [address] Urea nitrogen/Creatinine [Mass ratio] 19 No Units Normal 10-[address] [facility] Comment on above: Performed By: #### 2 [id number] #### [facility] [address] [place] [address] CBC w/ Auto Diffon 4 Basophils/100 WBC (Bld) 0.6 % Normal 0.0-2.[address] [facility] Comment on above: Performed By: #### 2 [id number] #### [facility] [address] [place] [address] Basophils/Leukocytes Auto (Bld) [Pure # fraction] 0.1 E9/L Normal 0.0-0.[address] [facility] Comment on above: Performed By: #### 2 [id number] #### [facility] [address] [place] [address] Eosinophils (Bld) [#/Vol] 0.2 E9/L Normal 0.0-0.[address] [facility] Comment on above: Performed By: #### 2 [id number] #### [facility] [address] [place] [address] Eosinophils/100 WBC (Bld) 2.1 % Normal 0.0-8.[address] [facility] Comment on above: Performed By: #### 2 290574 #### [facility] [address] [place] [address] Erythrocyte distribution width (RBC) [Ratio] 13.8 % Normal 10.9-14.[address] [facility] Comment on above: Performed By: #### 2 [id number] #### [facility] [address] [place] [address] Hematocrit (Bld) [Volume fraction] 45.6 % Normal 37.7-49.[address] [facility] Comment on above: Performed By: #### 2 [id number] #### [facility] [address] [place] [address] Hemoglobin (Bld) [Mass/Vol] 16.1 g/dL Normal 13.5-17.[address] [facility] Comment on above: Performed By: #### 2 [id number] #### [facility] [address] [place] [address] Lymphocytes (Bld) [#/Vol] 2.6 E9/L Normal 1.0-4.[address] [facility] Comment on above: Performed By: #### 2 [id number] #### [facility] [address] [place] [address] Lymphocytes/100 WBC (Bld) 28.8 % Normal 14.0-50.[address] [facility] Comment on above: Performed By: #### 2 [id number] #### [facility] [address] [place] [address] MCH (RBC) [Entitic mass] 29.9 pg Normal 27.0-34.[address] [facility] Comment on above: Performed By: #### 2 [id number] #### [facility] [address] [place] [address] MCHC (RBC) [Mass/Vol] 35.3 g/dL Normal 31.4-36.0 [facility] Comment on above: Performed By: #### 2 [id number] #### [facility] [address] [place] [address] MCV (RBC) [Entitic vol] 84.9 fL Normal 80.0-100.[address] [facility] Comment on above: Performed By: #### 2 [id number] #### [facility] [address] [place] [address] Monocytes (Bld) [#/Vol] 0.6 E9/L Normal 0.2-1.[address] [facility] Comment on above: Performed By: #### 2 [id number] #### [facility] [address] [place] [address] Neutrophils (Bld) [#/Vol] 5.5 E9/L Normal 2.0-7.[address] [facility] Comment on above: Performed By: #### 2 [id number] #### [facility] [address] [place] [address] Neutrophils/100 WBC (Bld) 61.6 % Normal 36.0-75.[address] [facility] Comment on above: Performed By: #### 2 132646 #### [facility] [address] [place] [address] Platelet 320.0 E9/L Normal 150.0-500. [address] [facility] Comment on above: Performed By: #### 2 [id number] #### [facility] [address] [place] [address] Platelet mean volume (Bld) [Entitic vol] 7.1 fL Normal 6.4-10.[address] [facility] Comment on above: Performed By: #### 2 [id number] #### [facility] [address] [place] [address] RBC (Bld) [#/Vol] 5.4 E12/L Normal 4.3-5.[address] [facility] Comment on above: Performed By: #### 2 [id number] #### [facility] [address] [place] [address] WBC corrected for nucl RBC Auto (Bld) [#/Vol] 8.9 E9/L Normal 4.0-11.[address] [facility] Comment on above: Performed By: #### 2 [id number] #### [facility] [address] [place] [address] [place] [address] CHEMISTRYOrdered By: SYSTEM SYSTEM on 12-01-2023 Albumin [...] and Complexity of Problems Differential Diagnosis: [] [facility] Data External documents reviewed: N/A My [...] day(s), # 28 cap(s), Refills(s) 0, Pharmacy: [facility]/pharmacy #[id number], 178, cm, 12/01/23 19:37:00 [...] Nausea/Vomiting, # 12 tab(s), Refills(s) 0, Pharmacy: [facility]/pharmacy #[id number], 178, cm, 12/01/23 19:37:00 [...] Information Uriel Nunez In 3 days [address] [facility] [place] [address] [place] [address]- Business (1) Additional Instructions: Patient Education Abdominal [...] Tachycardia Tachycar (more content not included)... Normal [facility] Comment on above: Result Comment: [...] 12-01-2023 Albumin [Mass/Vol] 4.6 g/dL Normal 3.3-5.[address] [facility] Comment on above: Performed By: #### 2 [id number] #### [facility] [address] [place] [address] Albumin/Globulin (S) [Mass conc ratio] 1.7 Normal 1.1-2.[address] [facility] Comment on above: Performed By: #### 2 [id number] #### [facility] [address] [place] [address] ALP [Catalytic activity/Vol] 55 Int._Unit/L Normal 21-[address] [facility] Comment on above: Performed By: #### 2 [id number] #### [facility] [address] [place] [address] ALT No additional P-5'-P [Catalytic activity/Vol] 22 Int._Unit/L Normal 6-[address] [facility] Comment on above: Performed By: #### 2 776291 #### [facility] [address] [place] [address] AST [Catalytic activity/Vol] 15 Int._Unit/L Normal 5-[address] [facility] Comment on above: Performed By: #### 2 [id number] #### [facility] [address] [place] [address] Bilirubin [Mass/Vol] 0.5 mg/dL Normal 0.0-1.1 [facility] Comment on above: Performed By: #### 2 [id number] #### [facility] [address] [place] [address] Bilirubin.direct [Mass/Vol] 0.1 mg/dL Normal 0.0-0.[address] [facility] Comment on above: Performed By: #### 2 804169 #### [facility] [address] [place] [address] Bilirubin.indirect [Mass or moles/Vol] 0.4 mg/dL Normal 0.1-0.[address] [facility] Comment on above: Performed By: #### 2 803138 #### [facility] [address] [place] [address] Globulin (S) [Mass/Vol] 2.7 g/dL Normal 1.4-4.[address] [facility] Comment on above: Performed By: #### 2 [id number] #### [facility] [address] [place] [address] Protein [Mass/Vol] 7.3 g/dL Normal 6.0-7.[address] [facility] Comment on above: Performed By: #### 2 751256 #### [facility] [address] [place] [address] Lipase Levelon 12-01-2023 Lipase [Catalytic activity/Vol] 45 U/L Normal 13-[address] [facility] Comment on above: Performed By: #### 2 [id number] #### [facility] [address] [place] [address] UA with Cult Rflxon 12-01-19 Bilirubin Ql (U) Negative Normal Negative [facility] Comment on above: Performed By: #### 4 [id number] #### [facility] [address] [place] [address] Clarity (U) Clear Normal Clear [facility] Comment on above: Performed By: #### 4 [id number] #### [facility] [address] [place] [address] Color (U) Yellow Normal Yellow [facility] Comment on above: Result Comment: Micr oscopic readings are only performed on those samples that meet specific criteria set forth by [facility]. Performed By: #### 4 [id number] #### [facility] [address] [place] [address] Glucose Ql (U) Negative Normal Negative [facility] Comment on above: Performed By: #### 4 [id number] #### [facility] [address] [place] [address] Hemoglobin Auto test strip (U) [Mass/Vol] Negative Normal Negative [facility] Comment on above: Performed By: #### 4 [id number] #### [facility] [address] [place] [address] Ketones Auto test strip Ql (U) Negative Normal Negative [facility] Comment on above: Performed By: #### 4 [id number] #### [facility] [address] [place] [address] Leukocyte esterase Auto test strip Ql (U) Negative Normal Negative [facility] Comment on above: Performed By: #### 4 [id number] #### [facility] [address] [place] [address] Nitrite Auto test strip Ql (U) Negative Normal Negative [facility] Comment on above: Performed By: #### 4 [id number] #### [facility] [address] [place] [address] pH (U) 5.5 [pH] Invalid Interpretation Code 5.0-9.[address] [facility] Comment on above: Performed By: #### 4 [id number] #### [facility] [address] [place] [address] Protein Ql (U) Trace Abnormal Negative [facility] Comment on above: Performed By: #### 4 [id number] #### [facility] [address] [place] [address] Specific gravity (U) [Rel density] 1.028 Invalid Interpretation Code 1.005-1.[address] [facility] Comment on above: Performed By: #### 4 [id number] #### [facility] [address] [place] [address] Urobilinogen (U) [Mass/Vol] Negative Normal Negative [facility] Comment on above: Performed By: #### 4 [id number] #### [facility] [address] [place] [address] Type of Urine collection method Clean Catch Normal [facility] Comment on above: Performed By: #### 4 [id number] #### [facility] [address] [place] [address] URINALYSISOrdered By: SYSTEM SYSTEM on 12-01-2023 Bilirubin Ql (U) Negative Normal Negativemg /dL [facility] UA Auto SS Clarity (U) Clear (12/01/23 8:24 PM) Normal Clear [facility] UA Auto SS Color (U) Yellow 1 (12/01/23 8:24 PM) Normal Yellow [facility] UA Auto SS Comment on above: Interpretive Data: M icroscopic readings are only performed on those samples that meet specific criteria set forth by [facility]. Glucose Ql (U) Negative Normal [...] 12-01-2023 eGFR 119 mL/min/1.73 m2 Normal >=[address] [facility] Comment on above: Order Comment: Order added by Discern Expert. Performed By: #### 1 [id number] #### [facility] [address] [place] [id number] [facility] 11[facility]23-2023 [facility] -- JAYE HARVEY ([id number]) 1980 M Date Time Provider Department 11/23/23 JESSENIA COUCH During your visit today, we recorded the following information about you: Jessenia Couch LISW 11/23/2023 12:35 PM Signed Please see encounters from this group underwriter on 10/13/23. INDUSTRIAL HYGIENIST called patient to check in and see if he has been able to find a new therapist with his crisis team and continue with group therapy through [facility]. Patient reported with how busy work has [...] needs at this time. Amenable to this group underwriter calling in a few weeks to check in. Jessenia CouchALVIN 12/17/2023 1:52 PM Signed INDUSTRIAL HYGIENIST called patient to check in and see if he has found a therapist. M and encouraged a return call. Jessenia CouchALVIN 12/17/2023 3:45 PM Signed Patient reported he is still able to participate in group therapy at [facility] even if he does not have a therapist through them. He has not yet found a therapist. He stated he and the crisis organization working on getting him another therapist have encountered some barriers as he needs a provider who can accept Medicare. Pt said he is doing well, attending group, and also sees Dr. Rider next week. Pt was amenable to group underwriter doing some research on Medicare therapists and pt said he would be willing to come to [facility] if necessary for appointments. INDUSTRIAL HYGIENIST found the following around [place] who report accepting Medicare on their website: https://www.[employer]/us/therapists/mark asenciozkunhs-qyiaktv-fk/[email or web address] https://www.[employer]/us/therapists/daysi solisnbrxrh-xqzk-qptdhal-mo/ 664 https://www.[employer]/us/therapists/senthil farrellokitsvm-lysd-ryhyupy-mo/711 INDUSTRIAL HYGIENIST sent pt a Unight message with the above information. Allergies As of Date: 11/23/2023 Noted Allergy Reaction KEPPRA (LEVETIRACETAM) 07/31/2010 14 - Other: See Comments Comments: Increases his ADHD KETOROLAC TROMETHAMINE 09/14/2016 16 - Unknown Comments: unknown PRISTIQ (DESVENLAFAXINE) 01/12/2014 14 - Other: See Comments Comments: sz Date Reviewed: 11/03/2023 Reviewed by: Kanika Read APRN.STEEL POURER - Fully Assessed Reason for Visit: Social Work Services [507] Prescriptions as of 12/17/2023 - cloNIDine HCl (CATAPRES) 0.1 mg tablet TAKE 1 TABLET BY MOUTH TWICE A DAY - rizatriptan (MAXALT-GROUND CREWMAN) 10 mg disintegrating tablet Take 1 tablet [...] and PS 4-8cmh2O. His DME company is [employer] , new mask to fit patient preference, [...] (FLONASE) 50 mcg/actuation nasal spray Use 1 [place] in each nostril twice daily. - albuterol HFA (PROVENTIL HFA, VENTOLIN HFA) 90 mcg/actuation inhaler Inhale 1-2 Puffs as instructed as needed for Wheezing/Shortness of Breath. Problem List As Of Date 11/23/2023 Noted Resolved Epilepsy (HCC) [G40.909] 06/18/2004 Epilepsy wit (more content not included)... Normal [facility] Basophils Auto (Bld) [#/Vol] Ordered By: Mary Calhoun on 09-26-2023 Basophils (Bld) [#/Vol] 0.1 10*3/uL 0.0-0.2 [facility] Basophils/100 WBC Auto (Bld) Ordered By: Mary Calhoun on 09-26-2023 Basophils/100 WBC (Bld) 0.8 % . [facility] Calcium [Mass/volume] in Ser um or PlasmaOrdered By: Mary Calhoun on 09-26-2023 Calcium [Mass/Vol] 9.2 mg/dL 8.6-10.3 [facility] Carbon dioxide, total [Moles /volume] in Serum or PlasmaOrdered By: Mary Calhoun on 09-26-2023 CO2 [Moles/Vol] 27.1 mmol/L 21.0-31.0 [facility] Chloride [Moles/volume] in S jaspreet or PlasmaOrdered By: Mary Calhoun on 09-26-2023 Chloride [Moles/Vol] 103 mmol/L 98-107 [facility] Creatinine [Mass/volume] in Serum or PlasmaOrdered By: Mary Calhoun on 09-26-2023 Creatinine [Mass/Vol] 0.67 mg/dL 0.70-1.30 [facility] Eosinophils Auto (Bld) [#/Vo l]Ordered By: Mary Calhoun on 09-26-2023 Eosinophils (Bld) [#/Vol] 0.3 10*3/uL 0.0-0.45 [facility] Eosinophils/100 WBC Auto (Bl d)Ordered By: Mary Calhoun on 09-26-2023 Eosinophils/100 WBC (Bld) 3.2 % . [facility] Erythrocyte distribution wid th Auto (RBC) [Ratio]Ordered By: Mary Calhoun on 09-26-2023 Erythrocyte distribution width (RBC) [Ratio] 13.4 % 12.0-14.8 [facility] Glucose [Mass/volume] in Ser um or PlasmaOrdered By: Mary Calhoun on 09-26-2023 Glucose [Mass/Vol] 109 mg/dL 70-100 [facility] Comment on above: ADA recommended refe rence rangeRandom Glucose Reference Range is dependent on time and content of last meal. Glucose of more than 200 mg/dL in a nonstressed, ambulatory subject supports the diagnosis of Diabetes Mellitus. Hematocrit Auto (Bld) [Volum e fraction]Ordered By: Mary Calhoun on 09-26-2023 Hematocrit (Bld) [Volume fraction] 43.7 % 38.8-50.0 [facility] Hemoglobin [Mass/volume] in BloodOrdered By: Mary Calhoun on 09-26-2023 Hemoglobin (Bld) [Mass/Vol] 14.9 g/dL 13.0-17.0 [facility] Leukocytes [#/volume] correc lucio for nucleated erythrocytes in Blood by Automated counOrdered By: Mary Calhoun on 09-26-2023 WBC corrected for nucl RBC Auto (Bld) [#/Vol] 10.1 10*3/uL 4.1-10.5 [facility] Lymphocytes Auto (Bld) [#/Vo l]Ordered By: Mary Calhoun on 09-26-2023 Lymphocytes (Bld) [#/Vol] 2.5 10*3/uL 1.00-4.8 [facility] Lymphocytes/100 WBC Auto (Bl d)Ordered By: Mary Calhoun on 09-26-2023 Lymphocytes/100 WBC (Bld) 24.5 % . [facility] MCH Auto (RBC) [Entitic mass ]Ordered By: Mary Calhoun on 09-26-2023 MCH (RBC) [Entitic mass] 29.1 pg 27.5-35.2 [facility] MCHC Auto (RBC) [Mass/Vol]Or dered By: Mary Calhoun on 09-26-2023 MCHC (RBC) [Mass/Vol] 34.1 g/dL 32.5-35.6 [facility] MCV Auto (RBC) [Entitic vol] Ordered By: Mary Calhoun on 09-26-2023 MCV (RBC) [Entitic vol] 85.4 fL 83.5-101 [facility] Monocytes Auto (Bld) [#/Vol] Ordered By: Mary Calhoun on 09-26-2023 Monocytes (Bld) [#/Vol] 0.9 10*3/uL 0.0-0.8 [facility] Monocytes/100 WBC Auto (Bld) Ordered By: Mary Calhoun on 09-26-2023 Monocytes/100 WBC (Bld) 8.8 % . [facility] Neutrophils Auto (Bld) [#/Vo l]Ordered By: Mary Calhoun on 09-26-2023 Neutrophils (Bld) [#/Vol] 6.3 10*3/uL 1.8-7.7 [facility] Neutrophils/100 WBC Auto (Bl d)Ordered By: Mary Calhoun on 09-26-2023 Neutrophils/100 WBC (Bld) 62.7 % . [facility] No Panel InformationOrdered By: Mary Calhoun on 09-26-2023 Estimated GFR (CKD-EPI) > 60.0 mL/Min [facility] Creatinine Clearance (Chem 175.50 [facility] Nucleated erythrocytes [Pres ence] in Blood by Automated countOrdered By: Mary Calhoun on 09-26-2023 Nucleated RBC Auto Ql (Bld) 0.0 /100{WBC} 0-0.5 [facility] Platelet mean volume Auto (B ld) [Entitic vol]Ordered By: Mary Calhoun on 09-26-2023 Platelet mean volume (Bld) [Entitic vol] 7.5 fL 6.6-10.1 [facility] Platelets Auto (Bld) [#/Vol] Ordered By: Mary Calhoun on 09-26-2023 Platelets (Bld) [#/Vol] 276 10*3/uL 150-450 [facility] Potassium [Moles/volume] in Serum or PlasmaOrdered By: Mary Calhoun on 09-26-2023 Potassium [Moles/Vol] 4.1 mmol/L 3.5-5.1 [facility] RBC Auto (Bld) [#/Vol]Ordere d By: Mary Calhoun on 09-26-2023 RBC (Bld) [#/Vol] 5.12 10*6/uL 3.90-5.60 [facility] Serum or plasma anion gap de terminationOrdered By: Mary Calhoun on 09-26-2023 Anion gap [Moles/Vol] 10.0 mmol/L 6.0-15.0 [facility] Sodium [Moles/volume] in Ser um or PlasmaOrdered By: Mary Calhoun on 09-26-2023 Sodium [Moles/Vol] 136 mmol/L 136-145 [facility] Urea nitrogen [Mass/volume] in Serum or PlasmaOrdered By: Mary Calhoun on 09-26-2023 Urea nitrogen [Mass/Vol] 9 mg/dL 7-25 [facility] WBC Auto (Bld) [#/Vol]Ordere d By: Mary Calhoun on 09-26-2023 WBC (Bld) [#/Vol] 10.1 10*3/uL 4.1-10.5 [facility] Alanine aminotransferase [En zymatic activity/volume] in Serum or PlasmaOrdered By: Mary Calhoun on 09-25-2023 ALT [Catalytic activity/Vol] 23 U/L 7-52 [facility] Albumin [Mass/volume] in Ser um or Plasma by Bromocresol green (BCG) dye binding methoOrdered By: Mary Gutierresnina on 09-25-2023 Albumin BCG dye [Mass/Vol] 3.9 g/dL 3.5-5.7 [facility] Alkaline phosphatase [Enzyma tic activity/volume] in Serum or PlasmaOrdered By: Mary Calhoun on 09-25-2023 ALP [Catalytic activity/Vol] 61 U/L 34-104 [facility] Aspartate aminotransferase [ Enzymatic activity/volume] in Serum or PlasmaOrdered By: Mary Calhoun on 09-25-2023 AST [Catalytic activity/Vol] 16 U/L 13-39 [facility] Bilirubin.total [Mass/volume ] in Serum or PlasmaOrdered By: Mary Calhoun on 09-25-2023 Bilirubin [Mass/Vol] 1.3 mg/dL 0.3-1.0 [facility] Comment on above: Samples from patient s who have taken Naproxen have shown spurious elevation in Total Bilirubin levels. A metabolite of Naproxen, O-desmethylnaproxen, has been shown to interfere with the Lars-Yoshi method for measuring Total Bilirubin. Globulin Calc (S) [Mass/Vol] Ordered By: Mary Calhoun on 09-25-2023 Globulin (S) [Mass/Vol] 2.7 g/dL [facility] Protein [Mass/volume] in Ser um or PlasmaOrdered By: Mary Calhoun on 09-25-2023 Protein [Mass/Vol] 6.6 g/dL 6.4-8.9 [facility] Serum or plasma albumin/glob ulin mass ratioOrdered By: Mary Calhoun on 09-25-2023 Albumin/Globulin [Mass ratio] 1.4 {ratio} [facility] - Chemistry and C hemistry - challengeOrdered By: Sherif Francis on 09-24-2023 CO2 [Moles/Vol] 23.6 mmol/L 24.0-29.0 [facility] HCO3 (Bld) [Moles/Vol] 22.5 mmol/L 23.0-29.0 [facility] Magnesium [Mass/volume] in S jaspreet or PlasmaOrdered By: Arabella Ferraro on 09-24-2023 Magnesium [Mass/Vol] 2.1 mg/dL 1.9-2.7 [facility] No Panel InformationOrdered By: Sherif Francis on 09-24-2023 Blood Gas Critical Value See comment [facility] Comment on above: Critical Value marietta loera on: 09/24/2023 at 04:29 Blood Gas Sample Site Venous Fir [facility] FiO2 21 % [facility] Venous Blood Base Excess -1.8 mmol/L -3.0-3.0 [facility] Venous Blood Oxygen Content 8.5 mmol/L 6.6-9.7 [facility] Venous Blood Oxygen Saturation 92.4 % 73.0-76.0 [facility] Venous Blood Partial Pressure CO2 37.0 mm[Hg] 38.0-50.0 [facility] Venous Blood Partial Pressure O2 58.7 mm[Hg] 35.0-45.0 [facility] Venous Blood pH 7.40 7.32-7.43 [facility] Acetaminophen [Mass/volume] in Serum or PlasmaOrdered By: Nirmal Pineda on 09-23-2023 Acetaminophen [Mass/Vol] 0.4 ug/mL 10.0-30.0 [facility] Activated partial thrombopla stin time (aPTT) in platelet poor plasma by coagulation aOrdered By: Nirmal Pineda on 09-23-2023 aPTT Coag (PPP) [Time] 29.6 s 25.1-36.5 [facility] Comment on above: A hematocrit value g reater than 55% may lead to inaccurate results in coagulation testing. Patients having hematocrit values >55% require a special collection tube for coagulation studies. Please contact the laboratory at [phone] for redraw instructions. Alanine aminotransferase [En zymatic activity/volume] in Serum or PlasmaOrdered By: Nirmal Pineda on 09-23-2023 ALT [Catalytic activity/Vol] 26 U/L 7-52 [facility] Albumin [Mass/volume] in Ser um or Plasma by Bromocresol green (BCG) dye binding methoOrdered By: Nirmal Pineda on 09-23-2023 Albumin BCG dye [Mass/Vol] 4.4 g/dL 3.5-5.7 [facility] Alkaline phosphatase [Enzyma tic activity/volume] in Serum or PlasmaOrdered By: Nirmal Pineda on 09-23-2023 ALP [Catalytic activity/Vol] 57 U/L 34-104 [facility] Amphetamine Screen Ql (U)Ord ered By: Nirmal Pineda on 09-23-2023 Amphetamines Ql (U) Negative Negative [facility] Aspartate aminotransferase [ Enzymatic activity/volume] in Serum or PlasmaOrdered By: Nirmal Pineda on 09-23-2023 AST [Catalytic activity/Vol] 16 U/L 13-39 [facility] Barbiturates [Presence] in U rine by Screen methodOrdered By: Nirmal Pineda on 09-23-2023 Barbiturates Screen Ql (U) Negative Negative [facility] Basophils Auto (Bld) [#/Vol] Ordered By: Nirmal Pineda on 09-23-2023 Basophils (Bld) [#/Vol] 0.0 10*3/uL 0.0-0.2 [facility] Basophils/100 WBC Auto (Bld) Ordered By: Nirmal Pineda on 09-23-2023 Basophils/100 WBC (Bld) 0.5 % . [facility] Benzodiazepines Screen Ql (U )Ordered By: Nirmal Pineda on 09-23-2023 Benzodiazepines Ql (U) Negative Negative [facility] Benzoylecgonine [Presence] i n Urine by Screen methodOrdered By: Nirmal Pineda on 09-23-2023 Benzoylecgonine Screen Ql (U) Negative Negative [facility] Bilirubin Test strip Ql (U)O rdered By: Nirmal Pineda on 09-23-2023 Bilirubin Ql (U) Negative Negative [facility] Bilirubin.total [Mass/volume ] in Serum or PlasmaOrdered By: Nirmal Pinead on 09-23-2023 Bilirubin [Mass/Vol] 0.8 mg/dL 0.3-1.0 [facility] Calcium [Mass/volume] in Ser um or PlasmaOrdered By: Nirmal Pineda on 09-23-2023 Calcium [Mass/Vol] 9.4 mg/dL 8.6-10.3 [facility] Cannabinoids [Presence] in U rine by Screen methodOrdered By: Nirmal Pineda on 09-23-2023 Cannabinoids Screen Ql (U) Negative Negative [facility] Comment on above: These are unconfirme d results and should not be used for legal purposes. Drug Cut-Off Concentration: AMPH 1000 ng/mL MANUEL 200 ng/mL LEXIE 200 ng/mL COCM 300 ng/mL OP 300 ng/mL PCP 25 ng/mL THC 20 ng/mL Carbon dioxide, total [Moles /volume] in Serum or PlasmaOrdered By: Nirmal Pineda on 09-23-2023 CO2 [Moles/Vol] 28.3 mmol/L 21.0-31.0 [facility] Chloride [Moles/volume] in S jaspreet or PlasmaOrdered By: Nirmal Pineda on 09-23-2023 Chloride [Moles/Vol] 103 mmol/L 98-107 [facility] Color Auto (U)Ordered By: Aryan Pineda on 09-23-2023 Color (U) Yellow Yellow [facility] Creatine kinase [Enzymatic a ctivity/volume] in Serum or PlasmaOrdered By: Nirmal Pnieda on 09-23-2023 CK [Catalytic activity/Vol] 71 U/L 30-223 [facility] Creatinine [Mass/volume] in Serum or PlasmaOrdered By: Nirmal Pineda on 09-23-2023 Creatinine [Mass/Vol] 0.84 mg/dL 0.70-1.30 [facility] Eosinophils Auto (Bld) [#/Vo l]Ordered By: Nirmal Pineda on 09-23-2023 Eosinophils (Bld) [#/Vol] 0.1 10*3/uL 0.0-0.45 [facility] Eosinophils/100 WBC Auto (Bl d)Ordered By: Nirmal Pineda on 09-23-2023 Eosinophils/100 WBC (Bld) 0.8 % . [facility] Erythrocyte distribution wid th Auto (RBC) [Ratio]Ordered By: Nirmal Pineda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 [address] Calcium oxalate monohydrate (Stone) [Mass fraction] 15 % Invalid Interpretation Code [facility] Comment on above: Performed By: #### 1 [id number] ####[facility] [address] [place] [address] Calculus analysis [Interp] Comment Invalid Interpretation Code [facility] Comment on above: Result Comment: Calc ium phosphate (hydroxyl form) includes hydroxyapatite, amorphous calcium phosphate, and whitlockite. Hydroxyapatite is the most common of the calcium phosphate salts found in human kidney stones. Performed By: #### 1 [id number] ####[place] [address] [place] [address] Color (Stone) Harrington Invalid Interpretation Code [facility] Comment on above: Performed By: #### 1 [id number] ####[address] [address] Composition Comment Invalid Interpretation Code [facility] Comment on above: Result Comment: Perc entage (Represents the % composition) Performed By: #### 1 [id number] ####[address] [address] Disclaimer: Comment Invalid Interpretation Code [facility] Comment on above: Result Comment: This test was developed and its performance characteristics determined by [employer]. It has not been cleared or approved by the Food and Drug Administration. Performed at: [address] [id number] PhD Juan Andrew Performed By: #### 1 [id number] ####[address] [address] Hydroxyapatite: 5 % Invalid Interpretation Code [facility] Comment on above: Performed By: #### 1 [id number] ####[address] [address] Laboratory comment Luis (Report) Comment Invalid Interpretation Code [facility] Comment on above: Result Comment: Edison de la cruz questions regarding Calculi Analysis contact [facility] at: [phone]. Performed By: #### 1 [id number] ####[place] [address] [place] [address] Please Note: Comment Invalid Interpretation Code [facility] Comment on above: Result Comment: Calc jim report will follow via computer, mail or compactor driver delivery. Performed By: #### 1 [id number] ####[place] [address] [place] [address] Size (Stone) [Entitic vol] 4x4 Invalid Interpretation Code [facility] Comment on above: Result Comment: Isaiah og piece received. Performed By: #### 1 [id number] ####[facility] [address] [place] [address] Specimen source subject Nom Comment Invalid Interpretation Code [facility] Comment on above: Result Comment: Not provided Performed By: #### 1 [id number] ####[facility] [address] [place] [address] Stone Photo Comment Invalid Interpretation Code [facility] Comment on above: Result Comment: Phot ograph will follow under a separate cover Performed By: #### 1 [id number] ####[place] [address] [place] [address] Weight (Stone) 25 mg Invalid Interpretation Code [facility] Comment on above: Performed By: #### 1 [id number] ####[place] [address] [place] [address] Screenson 03-06-2023 Screens [id number] Normal [facility] Screens [id number]#1.00TIFF Normal [facility] Formson 03-05-2023 Forms [id number]#1.00TIFF Normal [facility] Patient Educationon 03-04-20 Patient Education Nephrology Dietary [...] ? 8 oz (237 mL) of milk, gyepsdf-hpqqilbslpvq-ojpwk milk, and calcium-fortifiedfruit juice. Calcium-fortified means that [...] Spinach (cooked), rhubarb, beets, sweet potatoes, and Polish chard. ? Peanuts. ? Potato chips, mexican fries, and baked potatoes with skin on. ? Nuts and nut products. ? Chocolate. ? If you regularly take a diuretic medicine, make sure to eat at least 1 or 2 servings of fruits or vegetables that are high in potassium each day. These include: ? Avocado. ? Banana. ? [place], prune, carrot, or tomato juice. ? Baked [...] fish oil, or vitamin B6. ? Take oles-kwn-kywgzww and prescription medicines only as told by your health care provider. These include supplements. What foods should I limit? Limit your in (more content not included)... Normal [facility] Urology Office/Clinic Noteon 03-04-2023 Urology Office/Clinic Note Chief Complaint ER f/u *Kidney Stones HPI Staff [employer], [facility] ER f/u from 02/23/23 due to lower abdominal pain, Lt-sided flank pain, and hematuria, was tx for UTI, acute urinary retention, and kidney stones, was given Tamsulosin, Keflex, Zofran, and [place]. CT AP w/o Con 02/23/23 - there [...] Hydronephrosis with renal and ureteral calculous obstruction) [facility] ER f/u from 02/23/23 due to lower abdominal pain, Lt-sided flank pain, and hematuria, was tx for UTI, acute urinary retention, and kidney stones, was given Tamsulosin, Keflex, Zofran, and [place] CT AP w/o Con 02/23/23 - there [...] Uric Acid -Dieta (more content not included)... [facility] Comment on above: Result Comment: Elec tronically Signed By: Nahed Doran MD\.br\Date and Time Signed: 03/04/23 11:50 EDT\.br\Electronically Co-Signed By: Rona Shrestha\.br\Date and Time Co-Signed: 03/04/23 10:57 EDT ED Note-Physicianon 02-28-20 ED Note-Physician [id number] [facility] RAD - CT Reporton 02-27-2023 RAD - CT Report [id number]#1.00TIFF [facility] CNPNon 02-10-2023 CNPN Telephone (NEADFV) -- JAYE HARVEY ([id number]) 1980 [place] Date Time Provider Department 02/10/23 GERALDINE ALONSO NEADFV During your visit today, we recorded the following information about you: Reina Griffith 02/10/2023 10:26 AM Signed Received [employer] prior auth request from [facility], uploaded to chart and forwarded for review. Stephanie Liao RN 02/10/2023 10:49 AM Signed Appro[employer]on February 09 PA Case: [id number], Status: Approved, Coverage Starts on: 02/09/2023 12:00:00 AM, Coverage Ends on: 05/17/2023 12:00:00 AM. Stephanie Liao RN 06/26/2023 10:57 AM Signed Pa submitted via [employer] JAYE HARVEY (Guerrero: [id number]) Allergies As of [...] daily as needed for anxiety - rizatriptan (MAXALT-GROUND CREWMAN) 10 mg disintegrating tablet Take 1 tablet [...] and PS 4-8cmh2O. His DME company is [employer] , new mask to fit patient preference, [...] (FLONASE) 50 mcg/actuation nasal spray Use 1 [place] in each nostril twice daily. - albuterol [...] Encounter Status:Closed by REINA [facility]RIFF[facility] Telephone (NEADFV) -- JAYE HARVEY ([id number]) 1980 M Date Time Provider Department 12/10/22 GERALDINE ALONSO MDSIRISHA During your visit today, we recorded the following information about you: Alicia Boyce 12/10/2022 12:08 PM Signed Received fax from [facility] with CT brain report, ER notes and labs. Scanned into [employer]. Stephanie Liao 12/10/2022 12:14 PM Signed Imaging [...] Reason for Visit: Received Outside Medical Records [[id number]] Cmt: [facility] Prescriptions as of 01/29/2023 - QUEtiapine (SEROQUEL) 300 mg tablet Take 1 tablet by mouth daily at bedtime. - EMGALITY PEN 120 mg/mL pen INJECT 1 MILLILITER SUBCUTANEOUSLY ONCE EVERY MONTH. DO NOT SHAKE. - rizatriptan (MAXALT-GROUND CREWMAN) 10 mg disintegrating tablet Take 1 tablet [...] and PS 4-8cmh2O. His DME company is [employer] mask to fit patient preference, ramp, humidification [...] (FLONASE) 50 mcg/actuation nasal spray Use 1 [place] in each nostril twice daily. - albuterol [...] Encounter Status:Closed by ALICIA BOYCE on 01/29/23 [facility] 11-20-2022 [facility] Telephone (NEADFV) -- JAYE HARVEY ([id number]) 1980 [place] Date Time Provider Department 11/20/22 GERALDINE ALONSO During your visit today, we recorded the following information about you: Alicia Boyce 11/20/2022 9:45 AM Signed Received fax from [employer] stating that prior authorization for Em[employer] has [...] EVERY MONTH. DO NOT SHAKE. - rizatriptan (MAXALT-GROUND CREWMAN) 10 mg disintegrating tablet Take 1 tablet [...] and PS 4-8cmh2O. His DME company is [employer] , new mask to fit patient preference, [...] (FLONASE) 50 mcg/actuation nasal spray Use 1 [place] in each nostril twice daily. - albuterol HFA (PROVENTIL HFA, VENTOLIN HFA) 90 mcg/actuation inhaler Inhale 1-2 Puffs as instructed as needed for Wheezing/Shortness of Breath. Problem List As Of Date 11/20/2022 Noted Resolved Epilepsy (HCC) [G40.909] 06/18/2004 Epilepsy with altered consciousness without int*07/31/2010 Depression with anxiety [F41.8] 01/12/2014 Respiratory failure requiring intubation ([facility]) *04/07/2016 Acute respiratory failure ([facility]) [J96.00] 04/07/2016 03/26/2019 Hx of suicide attempt [Z91.51] 04/07/2016 Bipolar II disorder ([facility]) [F31.81] 07/02/2016 Obesity, Class I, BMI 30-34.9 [...] Status:Closed by ALICIA BOYCE on 01/29/23 [facility] CHEMISTRYOrdered By: SYSTEM SYSTEM on 09-19-2022 Anion gap [Moles/Vol] 11 mmol/L Normal 6 - 16 mEq/L FT Remisol Chloride [Moles/Vol] 103 mmol/L Normal 101 - 1 11 mmol/L [facility] CO2 [Moles/Vol] 27 mmol/L Normal 21 - 31 mmol/L [facility] Remisol Creatinine [Mass/Vol] 0.8 mg/dL Normal 0.5 - 1.3 mg/dL FT Remisol GFR/1.73 sq M.predicted among non-blacks MDRD (S/P/Bld) [Vol rate/Area] 115 mL/min/1.73 m2 Normal >=59mL/min /1.73 m2 [facility] Chem S Potassium [Moles/Vol] 4.3 mmol/L Normal [...] 7.4 fL Normal 6.4 - 10.8 fL [facility] HemeAutoSS Platelets (Bld) [#/Vol] 296.0 E9/L Normal 150.0 - 500.0 E9/L FT HemeAutoSS RBC (Bld) [#/Vol] 5.6 E12/L Normal 4.3 - 5.9 E12/L FT HemeAutoSS WBC corrected for nucl RBC Auto (Bld) [#/Vol] 7.0 E9/L Normal 4.0 - 11.0 E9/L FT HemeAutoSS CBC AUTO DIFFon 07-28-2022 BASO # 0.1 103/ul Normal 0.0-0.1 [facility] Comment on above: Performed By: #### C MADM, BMP #### [facility] [address] [place] [address] Dr. Meron Gentile Basophils/100 WBC (Bld) 0.5 % Normal 0.2-2.0 [facility] Comment on above: Performed By: #### C MADM, BMP #### [facility] [address] [place] [address] Dr. Meron Gentile EO # 0.2 103/ul Normal 0.0-0.7 [facility] Comment on above: Performed By: #### C MADM, BMP #### [facility] [address] [place] [address] Dr. Meron Gentile Eosinophils/100 WBC (Bld) 2.0 % Normal 0.9-7.0 [facility] Comment on above: Performed By: #### C CLEMENCIA, BMP #### [facility] [address] [place] [address] Dr. Meron Gentile Erythrocyte distribution width (RBC) [Ratio] 12.5 % Normal 11.0-15.0 [facility] Comment on above: Performed By: #### C CLEMENCIA, BMP #### [facility] [address] [place] [address] Dr. Meron Gentile Hematocrit (Bld) [Volume fraction] 48.6 % Normal 42.0-54.0 [facility] Comment on above: Performed By: #### C CLEMENCIA, BMP #### [facility] [address] [place] [address] Dr. Meron Gentile Hemoglobin (Bld) [Mass/Vol] 16.7 g/dL Normal 14.0-18.0 [facility] Comment on above: Performed By: #### C MADM, BMP #### [facility] [address] [place] [address] Dr. Meron Gentile IG # 0.03 10e3/ul Normal 0.00-0.03 [facility] Comment on above: Performed By: #### C CLEMENCIA, BMP #### [facility] [address] [place] [address] Dr. Merno Gentile IG % 0.3 % Normal 0.0-0.5 [facility] Comment on above: Performed By: #### C CLEMENCIA, BMP #### [facility] [address] [place] [address] Dr. Meron Gentile LYMPH # 2.0 103/ul Normal 1.2-3.8 [facility] Comment on above: Performed By: #### C CLEMENCIA, BMP #### [facility] [address] [place] [address] Dr. Meron Gentile Lymphocytes/100 WBC (Bld) 20.4 % Critically low 20.5-60.0 [facility] Comment on above: Performed By: #### C CLEMENCIA, BMP #### [facility] [address] [place] [address] Dr. Meron Gentile MANUAL DIFF REQ NO Normal [facility] Comment on above: Performed By: #### C CLEMENCIA, BMP #### [facility] [address] [place] [address] Dr. Meron Gentile MCH (RBC) [Entitic mass] 28.8 pg Normal 25.9-34.0 [facility] Comment on above: Performed By: #### C CLEMENCIA, BMP #### [facility] [address] [place] [address] Dr. Meron Gentile MCHC (RBC) [Mass/Vol] 34.4 g/dL Normal 29.9-35.2 [facility] Comment on above: Performed By: #### C CLEMENCIA, BMP #### [facility] [address] [place] [address] Dr. Mreon Gentile MCV (RBC) [Entitic vol] 83.9 fL Normal 80.0-94.0 [facility] Comment on above: Performed By: #### C CLEMENCIA, BMP #### [facility] [address] [place] [address] Dr. Meron Gentile MONO # 0.7 103/ul Normal 0.3-0.8 [facility] Comment on above: Performed By: #### C CLEMENCIA, BMP #### [facility] [address] [address] [address] Meron Gentile Monocytes/100 WBC (Bld) 7.2 % Normal 1.7-12.0 [facility] Comment on above: Performed By: #### C CLEMENCIA, BMP #### [facility] [address] [place] [address] Dr. Meron Gentile NEUT # 6.7 103/ul Critically high 1.4-6.5 [facility] Comment on above: Performed By: #### C CLEMENCIA, BMP #### [facility] [address] [place] [address] Dr. Meron Gentile Neutrophils/100 WBC (Bld) 69.6 % Normal 43.0-75.0 [facility] Comment on above: Performed By: #### C CLEMENCIA, BMP #### [facility] [address] [place] [address] Dr. Meron Gentile Platelet mean volume (Bld) [Entitic vol] 8.7 fL Critically low 9.5-13.5 [facility] Comment on above: Performed By: #### C CLEMENCIA, BMP #### [facility] [address] [place] [address] Dr. Meron Gentile PLT 326 103/ul Normal 150-450 [facility] Comment on above: Performed By: #### C CLEMENCIA, BMP #### [facility] [address] [place] [address] Dr. Meron Gentile RBC 5.79 106/ul Normal 4.70-6.10 [facility] Comment on above: Performed By: #### C CLEMENCIA, BMP #### [facility] [address] [place] [address] Dr. Meron Gentile WBC 9.6 103/ul Normal 4.0-11.0 [facility] Comment on above: Performed By: #### C CLEMENCIA, BMP #### [facility] [address] [place] [address] Dr. Meron Gentile CRPon 07-28-2022 CRP [Mass/Vol] mg/L Normal <=1.0 [facility] Comment on above: Performed By: #### B MP, CRP #### [facility] [address] [address] [address] ABD/PELV W CONon [...] OTF PARKS Date: 2022-07-28 21:32 Normal [facility] CT HEAD WO CONon 07-28-2022 [...] OTF [place] Date: 2022-07-28 21:24 Normal [facility] ER URINE PROFILEon 3 Bilirubin Ql (U) Negative Normal NEGATIVE [facility] Comment on above: Performed By: #### E RUR #### [facility] [address] [place] [address] Dr. Meron Gentile Clarity (U) CLEAR Normal CLEAR [facility] Comment on above: Performed By: #### E RUR #### [facility] [address] [place] [address] Dr. Meron Gentile Color (U) LT. YELLOW Normal YELLOW [facility] Comment on above: Performed By: #### E RUR #### [facility] [address] [place] [address] Dr. Meron Gentile ERUAHD A micrscopic examina tion will be performed if indicated. Normal [facility] Comment on above: Performed By: #### E RUR #### [facility] [address] [place] [address] Dr. Meron Gentile Glucose Ql (U) Negative Normal NEGATIVE [facility] Comment on above: Performed By: #### E RUR #### [facility] [address] [place] [address] Dr. Meron Gentile Hemoglobin Ql (U) Negative Normal NEGATIVE [facility] Comment on above: Performed By: #### E RUR #### [facility] [address] [place] [address] Dr. Meron Gentile Ketones Ql (U) Negative Normal NEGATIVE [facility] Comment on above: Performed By: #### E RUR #### [facility] [address] [place] [address] Dr. Meron Gentile LEUKOCYTES Negative Normal NEGATIVE [facility] Comment on above: Performed By: #### E RUR #### [facility] [address] [place] [address] Dr. Meron Gentile Nitrite Ql (U) Negative Normal NEGATIVE [facility] Comment on above: Performed By: #### E RUR #### [facility] [address] [place] [address] Dr. Meron Gentile pH (U) 7.0 [pH] Normal 5-9 [facility] Comment on above: Performed By: #### E RUR #### [facility] [address] [place] [address] Dr. Meron Gentile SPEC GRAVITY <=1.005 Abnormal 1.005-<=1. 025 [facility] Comment on above: Performed By: #### E RUR #### [facility] [address] [place] [address] Dr. Meron Gentile UA PROTEIN Negative Normal NEGATIVE/ TRACE [facility] Comment on above: Performed By: #### E RUR #### [facility] [address] [place] [address] Dr. Meron Gentile UR MICRO IND NOT INDICATED Normal [facility] Comment on above: Performed By: #### E RUR #### [facility] [address] [place] [address] Dr. Meron Gentile Urobilinogen Qn (U) 0.2 {Roel'U}/dL Normal 0.2 - 1. 0 [facility] Comment on above: Performed By: #### E RUR #### [facility] [address] [place] [address] Dr. Meron Gentile PROF CHEM 8 (BAS METB)on Anion gap [Moles/Vol] 11.3 mmol/L Normal [facility] Comment on above: Performed By: #### B MP, CRP #### [facility] [address] [place] [address] Dr. Meron Gentile Calcium [Mass/Vol] 8.9 mg/dL Normal 8.5-10.1 [facility] Comment on above: Performed By: #### B MP, CRP #### [facility] [address] [place] [address] Dr. Meron Gentile Chloride [Moles/Vol] 102 mmol/L Normal 98-107 [facility] Comment on above: Performed By: #### B MP, CRP #### [facility] [address] [place] [address] Dr. Meron Gentile CO2 [Moles/Vol] 27.5 mmol/L Normal 21.0-32.0 [facility] Comment on above: Performed By: #### B MP, CRP #### [facility] [address] [place] [address] Dr. Meron Gentile Creatinine [Mass/Vol] 0.67 mg/dL Critically low 0.70-1.30 [facility] Comment on above: Performed By: #### B MP, CRP #### [facility] [address] [address] [address] Meron Gentile EGFR-AF [place]OREAN >60 Normal >=60 [facility] Comment on above: Performed By: #### B MP, CRP #### [facility] [address] [address] [address] Meron Gentile EGFR-NON AF [place] >60 Normal >=60 [facility] Comment on above: Performed By: #### B MP, CRP #### [facility] [address] [address] [address] Meron Gentile Glucose [Mass/Vol] 117 mg/dL Critically high 74-106 [facility] Comment on above: Performed By: #### B MP, CRP #### [facility] [address] [address] [address] Meron Gentile Potassium [Moles/Vol] 3.8 mmol/L Normal 3.5-5.1 [facility] Comment on above: Performed By: #### B MP, CRP #### [facility] [address] [address] [address] Meron Gentile Sodium [Moles/Vol] 137 mmol/L Normal 136-145 [facility] Comment on above: Performed By: #### B MP, CRP #### [facility] [address] [address] [address] Meron Gentile Urea nitrogen [Mass/Vol] 12.0 mg/dL Normal 7.0-18.0 [facility] Comment on above: Performed By: #### B MP, CRP #### [facility] [address] [address] [address] Meron Gentile Urea nitrogen/Creatinine [Mass ratio] 17.9 mg/mg Normal [facility] Comment on above: Performed By: #### B MP, CRP #### [facility] [address] [address] [address] Meron Gentile XR KNEE LT 4V [...] JAY KATZ Date: 2022-07-28 21:39 Normal [facility] CBC AUTO DIFFon 01-13-2022 BASO # 0.1 103/ul Normal 0.0-0.1 [facility] Comment on above: Performed By: #### C BC #### [facility] [address] [place] [address] Dr. Meron Gentile Basophils/100 WBC (Bld) 0.3 % Normal 0.2-2.0 [facility] Comment on above: Performed By: #### C BC #### [facility] [address] [place] [address] Dr. Meron Gentile EO # 0.0 103/ul Normal 0.0-0.7 [facility] Comment on above: Performed By: #### C BC #### [facility] [address] [place] [address] Dr. Meron Gentile Eosinophils/100 WBC (Bld) 0.1 % Critically low 0.9-7.0 [facility] Comment on above: Performed By: #### C BC #### [facility] [address] [place] [address] Dr. Meron Gentile Erythrocyte distribution width (RBC) [Ratio] 12.4 % Normal 11.0-15.0 [facility] Comment on above: Performed By: #### C BC #### [facility] [address] [place] [address] Dr. Meron Gentile Hematocrit (Bld) [Volume fraction] 44.3 % Normal 42.0-54.0 [facility] Comment on above: Performed By: #### C BC #### [facility] [address] [place] [address] Dr. Meron Gentile Hemoglobin (Bld) [Mass/Vol] 15.0 g/dL Normal 14.0-18.0 [facility] Comment on above: Performed By: #### C BC #### [facility] [address] [place] [address] Dr. Meron Gentile IG # 0.28 10e3/ul Critically high 0.00-0.03 [facility] Comment on above: Performed By: #### C BC #### [facility] [address] [place] [address] Dr. Meron Gentile IG % 1.7 % Critically high 0.0-0.5 [facility] Comment on above: Performed By: #### C BC #### [facility] [address] [place] [address] Dr. Meron Gentile LYMPH # 3.4 103/ul Normal 1.2-3.8 [facility] Comment on above: Performed By: #### C BC #### [facility] [address] [place] [address] Dr. Meron Gentile Lymphocytes/100 WBC (Bld) 20.2 % Critically low 20.5-60.0 [facility] Comment on above: Performed By: #### C BC #### [facility] [address] [place] [address] Dr. Meron Gentile MANUAL DIFF REQ NO Normal [facility] Comment on above: Performed By: #### C BC #### [facility] [address] [place] [address] Dr. Meron Gentile MCH (RBC) [Entitic mass] 29.2 pg Normal 25.9-34.0 [facility] Comment on above: Performed By: #### C BC #### [facility] [address] [place] [address] Dr. Meron Gentile MCHC (RBC) [Mass/Vol] 33.9 g/dL Normal 29.9-35.2 [facility] Comment on above: Performed By: #### C BC #### [facility] [address] [address] [address] Meron Gentile MCV (RBC) [Entitic vol] 86.4 fL Normal 80.0-94.0 [facility] Comment on above: Performed By: #### C BC #### [facility] [address] [address] [address] Meron Gentile MONO # 1.3 103/ul Critically high 0.3-0.8 [facility] Comment on above: Performed By: #### C BC #### [facility] [address] [address] [address] Meron Gentile Monocytes/100 WBC (Bld) 7.5 % Normal 1.7-12.0 [facility] Comment on above: Performed By: #### C BC #### [facility] [address] [place] [address] Dr. Meron Gentile NEUT # 11.7 103/ul Critically high 1.4-6.5 [facility] Comment on above: Performed By: #### C BC #### [facility] [address] [place] [address] Dr. Meron Gentile Neutrophils/100 WBC (Bld) 70.2 % Normal 43.0-75.0 [facility] Comment on above: Performed By: #### C BC #### [facility] [address] [place] [address] Dr. Meron Gentile Platelet mean volume (Bld) [Entitic vol] 8.6 fL Critically low 9.5-13.5 [facility] Comment on above: Performed By: #### C BC #### [facility] [address] [place] [address] Dr. Meron Gentile PLT 369 103/ul Normal 150-450 [facility] Comment on above: Performed By: #### C BC #### [facility] [address] [place] [address] Dr. Meron Gentile RBC 5.13 106/ul Normal 4.70-6.10 [facility] Comment on above: Performed By: #### C BC #### [facility] [address] [place] [address] Dr. Meron Gentile WBC 16.7 103/ul Critically high 4.0-11.0 [facility] Comment on above: Performed By: #### C BC #### [facility] [address] [place] [address] Dr. Meron Gentile PROF 14(COMP METB)on 022 Albumin [Mass/Vol] 3.6 g/dL Normal 3.4-5.0 [facility] Comment on above: Performed By: #### B MP, CRP #### [facility] [address] [place] [address] Dr. Meron Gentile Albumin/Globulin [Mass ratio] 1.1 {ratio} Normal [facility] Comment on above: Performed By: #### B MP, CRP #### [facility] [address] [place] [address] Dr. Meron Gentile ALP [Catalytic activity/Vol] 59 U/L Normal 46-116 [facility] Comment on above: Performed By: #### B MP, CRP #### [facility] [address] [place] [address] Dr. Meron Gentile ALT [Catalytic activity/Vol] 36 U/L Normal 16-63 [facility] Comment on above: Performed By: #### B MP, CRP #### [facility] [address] [place] [address] Dr. Meron Gentile Anion gap [Moles/Vol] 10.2 mmol/L Normal [facility] Comment on above: Performed By: #### B MP, CRP #### [facility] [address] [place] [address] Dr. Meron Gentile AST [Catalytic activity/Vol] 11 U/L Critically low 15-37 [facility] Comment on above: Performed By: #### B MP, CRP #### [facility] [address] [place] [address] Dr. Meron Gentile Bilirubin [Mass/Vol] 0.4 mg/dL Normal 0.2-1.0 [facility] Comment on above: Performed By: #### B MP, CRP #### [facility] [address] [address] [address] Meron Gentile Calcium [Mass/Vol] 8.6 mg/dL Normal 8.5-10.1 [facility] Comment on above: Performed By: #### B MP, CRP #### [facility] [address] [address] [address] Meron Gentile Chloride [Moles/Vol] 99 mmol/L Normal 98-107 [facility] Comment on above: Performed By: #### B MP, CRP #### [facility] [address] [place] [address] Dr. Meron Gentile CO2 [Moles/Vol] 28.2 mmol/L Normal 21.0-32.0 [facility] Comment on above: Performed By: #### B MP, CRP #### [facility] [address] [place] [address] Dr. Meron Gentile Creatinine [Mass/Vol] 0.77 mg/dL Normal 0.70-1.30 [facility] Comment on above: Performed By: #### B MP, CRP #### [facility] [address] [place] [address] Dr. Meron Gentile EGFR-AF [place] >60 Normal >=60 [facility] Comment on above: Performed By: #### B MP, CRP #### [facility] [address] [place] [address] Dr. Meron Gentile EGFR-NON AF [place] >60 Normal >=60 [facility] Comment on above: Performed By: #### B MP, CRP #### [facility] [address] [place] [address] Dr. Meron Gentile Globulin (S) [Mass/Vol] 3.2 g/dL Normal [facility] Comment on above: Performed By: #### B MP, CRP #### [facility] [address] [place] [address] Dr. Meron Gentile Glucose [Mass/Vol] 107 mg/dL Critically high 74-106 [facility] Comment on above: Performed By: #### B MP, CRP #### [facility] [address] [place] [address] Dr. Meron Gentile Potassium [Moles/Vol] 3.4 mmol/L Critically low 3.5-5.1 [facility] Comment on above: Performed By: #### B MP, CRP #### [facility] [address] [address] [address] Meron Gentile Protein [Mass/Vol] 6.8 g/dL Normal 6.4-8.2 [facility] Comment on above: Performed By: #### B MP, CRP #### [facility] [address] [address] [address] Meron Gentile Sodium [Moles/Vol] 134 mmol/L Critically low 136-145 [facility] Comment on above: Performed By: #### B MP, CRP #### [facility] [address] [place] [address] Dr. Meron Gentile Urea nitrogen [Mass/Vol] 10.0 mg/dL Normal 7.0-18.0 [facility] [facility] Comment on above: Performed By: #### B MP, CRP #### [facility] [address] [place] [address] Dr. Meron Gentile Urea nitrogen/Creatinine [Mass ratio] 13.0 mg/mg Normal [facility] Comment on above: Performed By: #### B MP, CRP #### [facility] [address] [place] [address] Dr. Meron Gentile TROPONIN, HIGH SENSITIVITYon 01-13-2022 HSTROP 5.3 pg/mL Normal 4.0-76.1 [facility] Comment on above: Result Comment: CUT- OFF POINTS HAVE BEEN ESTABLISHED BASED ON THE FOURTH UNIVERSAL DEFINITIONS OF MYOCARDIAL INFARCTION. THE UPPER REFERENCE LIMIT (URL) OF TROPONIN, DEFINED THE 99TH PERCENTILE OF cTnI DISTRIBUTION IN A REFERENCE POPULATION, HAS BEEN CONFIRMED THE DECISION THRESHOLD FOR IA DIAGNOSIS. Performed By: #### B MP, CRP #### [facility] [address] [place] [address] Dr. Meron Gentile XR CHEST 1 Von [...] YAMILETH LEE Date: 2022-01-12 22:48 Normal [facility] No Panel Informationon 01-07 [facility] CARDIAC TYLER 3-6on 2 CK [Catalytic activity/Vol] 98 U/L Normal 39-308 [facility] Comment on above: Performed By: #### C MREP #### [facility] [address] [place] [address] Dr. Meron Gentile CK.MB [Mass/Vol] 1.08 ng/mL Normal <=3.60 [facility] Comment on above: Performed By: #### C MREP #### [facility] [address] [place] [address] Dr. Meron Gentile HSTROP 6.2 pg/mL Normal 4.0-76.1 [facility] Comment on above: Result Comment: CUT- OFF POINTS HAVE BEEN ESTABLISHED BASED ON THE FOURTH UNIVERSAL DEFINITIONS OF MYOCARDIAL INFARCTION. THE UPPER REFERENCE LIMIT (URL) OF TROPONIN, DEFINED THE 99TH PERCENTILE OF cTnI DISTRIBUTION IN A REFERENCE POPULATION, HAS BEEN CONFIRMED THE DECISION THRESHOLD FOR IA DIAGNOSIS. Performed By: #### C MREP #### [facility] [address] [place] [address] Dr. Meron Gentile XR CHEST 1 Von [...] NADIRA MARTINI Date: 2022-01-05 22:18 Normal [facility] CARDIAC TYLER ADMITon 022 CK [Catalytic activity/Vol] 107 U/L Normal 39-308 [facility] Comment on above: Performed By: #### C CLEMENCIA, BMP #### [facility] [address] [place] [address] Dr. Meron Gentile CK.MB [Mass/Vol] 1.26 ng/mL Normal <=3.60 [facility] Comment on above: Performed By: #### C MADM, BMP #### [facility] [address] [place] [address] Dr. Meron Gentile HSTROP 6.3 pg/mL Normal 4.0-76.1 [facility] Comment on above: Result Comment: CUT- OFF POINTS HAVE BEEN ESTABLISHED BASED ON THE FOURTH UNIVERSAL DEFINITIONS OF MYOCARDIAL INFARCTION. THE UPPER REFERENCE LIMIT (URL) OF TROPONIN, DEFINED THE 99TH PERCENTILE OF cTnI DISTRIBUTION IN A REFERENCE POPULATION, HAS BEEN CONFIRMED THE DECISION THRESHOLD FOR IA DIAGNOSIS. Performed By: #### C MADM, BMP #### [facility] [address] [place] [address] Dr. Meron Gentile PERLA 41 ng/mL Normal 16-96 [facility] Comment on above: Performed By: #### C MADM, BMP #### [facility] [address] [place] [address] Dr. Meron Gentile CBC AUTO DIFFon 01-05-2022 BASO # 0.0 103/ul Normal 0.0-0.1 [facility] Comment on above: Performed By: #### B MP, CRP #### [facility] [address] [place] [address] Dr. Meron Gentile Basophils/100 WBC (Bld) 0.5 % Normal 0.2-2.0 [facility] Comment on above: Performed By: #### B MP, CRP #### [facility] [address] [place] [address] Dr. Meron Gentile EO # 0.1 103/ul Normal 0.0-0.7 [facility] Comment on above: Performed By: #### B MP, CRP #### [facility] [address] [place] [address] Dr. Meron Gentile Eosinophils/100 WBC (Bld) 1.2 % Normal 0.9-7.0 [facility] Comment on above: Performed By: #### B MP, CRP #### [facility] [address] [place] [address] Dr. Meron Gentile Erythrocyte distribution width (RBC) [Ratio] 12.2 % Normal 11.0-15.0 [facility] Comment on above: Performed By: #### B MP, CRP #### [facility] [address] [place] [address] Dr. Meron Gentile Hematocrit (Bld) [Volume fraction] 45.6 % Normal 42.0-54.0 [facility] Comment on above: Performed By: #### B MP, CRP #### [facility] [address] [place] [address] Dr. Meron Gentile Hemoglobin (Bld) [Mass/Vol] 15.2 g/dL Normal 14.0-18.0 [facility] Comment on above: Performed By: #### B MP, CRP #### [facility] [address] [place] [address] Dr. Meron Gentile IG # 0.02 10e3/ul Normal 0.00-0.03 [facility] Comment on above: Performed By: #### B MP, CRP #### [facility] [address] [place] [address] Dr. Meron Gentile IG % 0.2 % Normal 0.0-0.5 [facility] Comment on above: Performed By: #### B MP, CRP #### [facility] [address] [place] [address] Dr. Meron Gentile LYMPH # 1.6 103/ul Normal 1.2-3.8 [facility] Comment on above: Performed By: #### B MP, CRP #### [facility] [address] [place] [address] Dr. Meron Gentile Lymphocytes/100 WBC (Bld) 18.9 % Critically low 20.5-60.0 [facility] Comment on above: Performed By: #### B MP, CRP #### [facility] [address] [place] [address] Dr. Meron Gentile MANUAL DIFF REQ NO Normal [facility] Comment on above: Performed By: #### B MP, CRP #### [facility] [address] [place] [address] Dr. Meron Gentile MCH (RBC) [Entitic mass] 29.0 pg Normal 25.9-34.0 [facility] Comment on above: Performed By: #### B MP, CRP #### [facility] [address] [place] [address] Dr. Meron Gentile MCHC (RBC) [Mass/Vol] 33.3 g/dL Normal 29.9-35.2 [facility] Comment on above: Performed By: #### B MP, CRP #### [facility] [address] [place] [address] Dr. Meron Gentile MCV (RBC) [Entitic vol] 86.9 fL Normal 80.0-94.0 [facility] Comment on above: Performed By: #### B MP, CRP #### [facility] [address] [place] [address] Dr. Meron Gentile MONO # 1.1 103/ul Critically high 0.3-0.8 [facility] Comment on above: Performed By: #### B MP, CRP #### [facility] [address] [place] [address] Dr. Meron Gentile Monocytes/100 WBC (Bld) 12.3 % Critically high 1.7-12.0 [facility] Comment on above: Performed By: #### B MP, CRP #### [facility] [address] [place] [address] Dr. Meron Gentile NEUT # 5.7 103/ul Normal 1.4-6.5 [facility] Comment on above: Performed By: #### B MP, CRP #### [facility] [address] [place] [address] Dr. Meron Gentile Neutrophils/100 WBC (Bld) 66.9 % Normal 43.0-75.0 [facility] Comment on above: Performed By: #### B MP, CRP #### [facility] [address] [place] [address] Dr. Meron Gentile Platelet mean volume (Bld) [Entitic vol] 8.6 fL Critically low 9.5-13.5 [facility] Comment on above: Performed By: #### B MP, CRP #### [facility] [address] [place] [address] Dr. Meron Gentile PLT 279 103/ul Normal 150-450 [facility] Comment on above: Performed By: #### B MP, CRP #### [facility] [address] [place] [address] Dr. Meron Gentile RBC 5.25 106/ul Normal 4.70-6.10 [facility] Comment on above: Performed By: #### B MP, CRP #### [facility] [address] [place] [address] Dr. Meron Gentile WBC 8.6 103/ul Normal 4.0-11.0 [facility] Comment on above: Performed By: #### B MP, CRP #### [facility] [address] [place] [address] Dr. Meron Gentile Covid-19 PCR ([facility])on 12-17 SARS-CoV-2 (COVID-19) RNA SULEIMAN+probe Ql (Unsp spec) Not detected Normal NOT DETECTED [facility] Comment on above: Result Comment: [...] for this test is supported by the [employer] of [employer] and Human Service's declaration that [...] Performed By: #### C MADM, BMP #### [facility] [address] [place] [address] Dr. Meron Gentile D-DIMERon 01-05-2022 D-DIMER 0.19 mg/L FEU Normal <=0.59 [facility] Comment on above: Performed By: #### D DIM #### [facility] [address] [place] [address] Dr. Meron Gentile D-DIMER COMMENTS SEE BELOW Normal [facility] Comment on above: Result Comment: Incr [...] hospitalization. Performed By: #### D DIM #### [facility] [address] [place] [address] Dr. Meron Gentile INFLUENZA A AND B AGon 01-05 INFLUENZA A AG Negative Normal NEGATIVE SEE COMMENT [facility] Comment on above: Performed By: #### C CLEMENCIA, BMP #### [facility] [address] [place] [address] Dr. Meron Gentile INFLUENZA B AG Negative Normal NEGATIVE SEE COMMENT [facility] Comment on above: Performed By: #### C DONNIEM, BMP #### [facility] [address] [place] [address] Dr. Meron Gentile INTERNAL CONTROLS Within Normal Limits Normal Wi thin Normal Limits [facility] Comment on above: Performed By: #### C MADM, BMP #### [facility] [address] [place] [address] Dr. Meron Gentile PROF CHEM 8 (BAS METB)on Anion gap [Moles/Vol] 9.3 mmol/L Normal [facility] Comment on above: Performed By: #### C MADM, BMP #### [facility] [address] [place] [address] Dr. Meron Gentile Calcium [Mass/Vol] 9.1 mg/dL Normal 8.5-10.1 [facility] Comment on above: Performed By: #### C MADM, BMP #### [facility] [address] [place] [address] Dr. Meron Gentile Chloride [Moles/Vol] 97 mmol/L Critically low 98-107 [facility] Comment on above: Performed By: #### C MADM, BMP #### [facility] [address] [place] [address] Dr. Meron Gentile CO2 [Moles/Vol] 30.6 mmol/L Normal 21.0-32.0 [facility] Comment on above: Performed By: #### C MADM, BMP #### [facility] [address] [place] [address] Dr. Meron Gentile Creatinine [Mass/Vol] 0.77 mg/dL Normal 0.70-1.30 [facility] Comment on above: Performed By: #### C MADM, BMP #### [facility] [address] [place] [address] Dr. Meron Gentile EGFR-AF NOR[place]OREAN >60 Normal >=60 [facility] Comment on above: Performed By: #### C DONNIEM, BMP #### [facility] [address] [place] [address] Dr. Meron Gentile EGFR-NON AF [place]ORE[place] >60 Normal >=60 [facility] Comment on above: Performed By: #### C DONNIEM, BMP #### [facility] [address] [place] [address] Dr. Meron Gentile Glucose [Mass/Vol] 104 mg/dL Normal 74-106 [facility] Comment on above: Performed By: #### C MADM, BMP #### [facility] [address] [place] [address] Dr. Meron Gentile Potassium [Moles/Vol] 3.9 mmol/L Normal 3.5-5.1 [facility] Comment on above: Performed By: #### C MADM, BMP #### [facility] [address] [place] [address] Dr. Meron Gentile Sodium [Moles/Vol] 133 mmol/L Critically low 136-145 [facility] Comment on above: Performed By: #### C MADM, BMP #### [facility] [address] [place] [address] Dr. Meron Gentile Urea nitrogen [Mass/Vol] 8.0 mg/dL Normal 7.0-18.0 [facility] Comment on above: Performed By: #### C MADM, BMP #### [facility] [address] [place] [address] Dr. Meron Gentile Urea nitrogen/Creatinine [Mass ratio] 10.4 mg/mg Normal [facility] Comment on above: Performed By: #### C DONNIEM, BMP #### [facility] [address] [place] [address] Dr. Meron Gentile INSULINon 09-26-2021 Insulin 14.8 uIU/mL Normal 2.6-24.9 [facility] Comment on above: Performed By: #### I NSULIN #### [facility] [address] [place] [address] Dr. Meron Gentile CBC AUTO DIFFon 09-25-2021 BASO # 0.1 103/ul Normal 0.0-0.1 [facility] Comment on above: Performed By: #### C BC #### [facility] [address] [place] [address] Dr. Meron Gentile Basophils/100 WBC (Bld) 0.7 % Normal 0.2-2.0 [facility] Comment on above: Performed By: #### C BC #### [facility] [address] [place] [address] Dr. Meron Gentile EO # 0.3 103/ul Normal 0.0-0.7 [facility] Comment on above: Performed By: #### C BC #### [facility] [address] [place] [address] Dr. Meron Gentile Eosinophils/100 WBC (Bld) 3.8 % Normal 0.9-7.0 [facility] Comment on above: Performed By: #### C BC #### [facility] [address] [place] [address] Dr. Meron Gentile Erythrocyte distribution width (RBC) [Ratio] 12.2 % Normal 11.0-15.0 [facility] Comment on above: Performed By: #### C BC #### [facility] [address] [place] [address] Dr. Meron Gentile Hematocrit (Bld) [Volume fraction] 46.5 % Normal 42.0-54.0 [facility] Comment on above: Performed By: #### C BC #### [facility] [address] [place] [address] Dr. Meron Gentile Hemoglobin (Bld) [Mass/Vol] 15.5 g/dL Normal 14.0-18.0 [facility] Comment on above: Performed By: #### C BC #### [facility] [address] [place] [address] Dr. Meron Gentile IG # 0.04 10e3/ul Critically high 0.00-0.03 [facility] Comment on above: Performed By: #### C BC #### [facility] [address] [place] [address] Dr. Meron Gentile IG % 0.5 % Normal 0.0-0.5 [facility] Comment on above: Performed By: #### C BC #### [facility] [address] [place] [address] Dr. Meron Gentile LYMPH # 2.4 103/ul Normal 1.2-3.8 [facility] Comment on above: Performed By: #### C BC #### [facility] [address] [place] [address] Dr. Meron Gentile Lymphocytes/100 WBC (Bld) 31.5 % Normal 20.5-60.0 [facility] Comment on above: Performed By: #### C BC #### [facility] [address] [place] [address] Dr. Meron Gentile MANUAL DIFF REQ NO Normal [facility] Comment on above: Performed By: #### C BC #### [facility] [address] [place] [address] Dr. Meron Gentile MCH (RBC) [Entitic mass] 29.1 pg Normal 25.9-34.0 [facility] Comment on above: Performed By: #### C BC #### [facility] [address] [place] [address] Dr. Meron Gentile MCHC (RBC) [Mass/Vol] 33.3 g/dL Normal 29.9-35.2 [facility] Comment on above: Performed By: #### C BC #### [facility] [address] [place] [address] Dr. Meron Gentile MCV (RBC) [Entitic vol] 87.2 fL Normal 80.0-94.0 [facility] Comment on above: Performed By: #### C BC #### [facility] [address] [place] [address] Dr. Meron Gentile MONO # 0.6 103/ul Normal 0.3-0.8 [facility] Comment on above: Performed By: #### C BC #### [facility] [address] [place] [address] Dr. Meron Gentile Monocytes/100 WBC (Bld) 7.5 % Normal 1.7-12.0 [facility] Comment on above: Performed By: #### C BC #### [facility] [address] [place] [address] Dr. Meron Gentile NEUT # 4.3 103/ul Normal 1.4-6.5 [facility] Comment on above: Performed By: #### C BC #### [facility] [address] [place] [address] Dr. Meron Gentile Neutrophils/100 WBC (Bld) 56.0 % Normal 43.0-75.0 [facility] Comment on above: Performed By: #### C BC #### [facility] [address] [place] [address] Dr. Meron Gentile Platelet mean volume (Bld) [Entitic vol] 8.7 fL Critically low 9.5-13.5 [facility] Comment on above: Performed By: #### C BC #### [facility] [address] [place] [address] Dr. Meron Gentile PLT 290 103/ul Normal 150-450 [facility] Comment on above: Performed By: #### C BC #### [facility] [address], [place] [address] Dr. Meron Gentile RBC 5.33 106/ul Normal 4.70-6.10 [facility] Comment on above: Performed By: #### C BC #### [facility] [address], [place] [address] Dr. Meron Gentile WBC 7.7 103/ul Normal 4.0-11.0 [facility] Comment on above: Performed By: #### C BC #### [facility] [address], [place] [address] Dr. Meron Gentile ECHOCARDIO M/2D COMPLETEon 0 09-25-2021 ECHOCARDIO M/2D COMPLETE Patient: JAYE HARVEY Exam Date: 09/25/2021 : 1980 Gender:M Ordering : DR URIEL NUNEZ . Admission #: [id number] Family : Order #: [id number] CLICK HERE TO VIEW EXAM ECHOCARDIOGRAM REPORT [...] Area(A4C): 23.10 cm2 Left Atrium Systolic Volume(A2C): 45700 mm3 Left Atrium Systolic Volume(A4C): 88586 mm3 Mitral Valve MV E to A [...] M.D. on 09/25/2021 at 16:59 Normal [facility] FREE THYROXINE INDEX T7on FTI 2.58 Normal 1.30-4.50 [facility] Comment on above: Performed By: #### B MP, CRP #### [facility] [address] [place] [address] Dr. Meron Gentile T3U 34.0 % Normal 33.0-40.0 [facility] Comment on above: Performed By: #### B MP, CRP #### [facility] [address] [place] [address] Dr. Meron Gentile T4 [Mass/Vol] 7.60 ug/dL Normal 4.50-12.10 [facility] Comment on above: Performed By: #### B MP, CRP #### [facility] [address] [place] [address] Dr. Meron Gentile GLYCOHEMOGLOBIN A1Con 2021 ADA RECOMMENDATION SEE BELOW Normal [facility] Comment on above: Result Comment: ADA RECOMMENDED LIMIT 4.0 - 6.0 ADA THERAPEUTIC TARGET < 7.0 ACTION SUGGESTED > 7.0 Performed By: #### C MADM, BMP #### [facility] [address] [place] [address] Dr. Meron Gentile Glucose [Mass/Vol] 111 mg/dL Normal [facility] Comment on above: Performed By: #### C MADM, BMP #### [facility] [address] [place] [address] Dr. Meron Gentile HbA1c (Bld) [Mass fraction] 5.5 % Normal 4.5-6.2 [facility] Comment on above: Performed By: #### C MADM, BMP #### [facility] [address] [place] [address] Dr. Meron Gentile LIPID PROFILEon 09-25-2021 CHOL-HDL RATIO NORM SEE BELOW Normal [facility] Comment on above: Result Comment: 3.3 - 4.4 LOW RISK 4.4 - 7.1 AVERAGE RISK 7.1 - 11.0 MODERATE RISK >11.0 HIGH RISK Performed By: #### B MP, CRP #### [facility] [address] [place] [address] Dr. Meron Gentile Cholesterol [Mass/Vol] 257 mg/dL Critically high <=200 [facility] Comment on above: Performed By: #### B MP, CRP #### [facility] [address] [place] [address] Dr. Meron Gentile Cholesterol in HDL [Mass/Vol] 41 mg/dL Normal 40-60 [facility] Comment on above: Performed By: #### B MP, CRP #### [facility] [address] [place] [address] [address] Meron Gentile Cholesterol in LDL [Mass/Vol] 171.6 mg/dL Normal [facility] Comment on above: Performed By: #### B MP, CRP #### [facility] [address] [place] [address] [address] Meron Gentile Cholesterol.total/Chol esterol in HDL [Mass ratio] 6.3 {ratio} Normal [facility] Comment on above: Performed By: #### B MP, CRP #### [facility] [address] [place] [address] [address] Meron Gentile HDL NORMAL > or = 60 mg/dl - LO W CARDIOVASCULAR RISK <40 mg/dl - HIGH CARDIOVASCULAR RISK Normal [facility] Comment on above: Performed By: #### B MP, CRP #### [facility] [address] [place] [address] Dr. Meron Gentile LDL CALC NORMAL SEE BELOW Normal [facility] Comment on above: Result Comment: <100 mg/dl OPTIMAL 100 - 129 mg/dl NEAR OR ABOVE OPTIMAL 130 - 159 mg/dl BORDERLINE HIGH 160 - 189 mg/dl HIGH >190 mg/dl VERY HIGH Performed By: #### B MP, CRP #### [facility] [address] [place] [address] Dr. Meron Gentile Triglyceride [Mass/Vol] 222 mg/dL Critically high <=150 [facility] Comment on above: Performed By: #### B MP, CRP #### [facility] [address] [place] [address] Dr. Meron Gentile VLDL CALC 44.4 mg/dL Normal [facility] Comment on above: Performed By: #### B MP, CRP #### [facility] [address] [place] [address] Dr. Meron Gentile PROF 14(COMP METB)on 022 Albumin [Mass/Vol] 3.7 g/dL Normal 3.4-5.0 [facility] Comment on above: Performed By: #### B MP, CRP #### [facility] [address] [place] [address] [address] Meron Gentile Albumin/Globulin [Mass ratio] 1.1 {ratio} Normal [facility] Comment on above: Performed By: #### B MP, CRP #### [facility] [address] [place] [address] [address] Meron Gentile ALP [Catalytic activity/Vol] 55 U/L Normal 46-116 [facility] Comment on above: Performed By: #### B MP, CRP #### [facility] [address] [place] [address] [address] Meron Gentile ALT [Catalytic activity/Vol] 60 U/L Normal 16-63 [facility] Comment on above: Performed By: #### B MP, CRP #### [facility] [address] [place] [address] Dr. Meron Gentile Anion gap [Moles/Vol] 11.5 mmol/L Normal [facility] Comment on above: Performed By: #### B MP, CRP #### [facility] [address] [place] [address] Dr. Meron Gentile AST [Catalytic activity/Vol] 19 U/L Normal 15-37 [facility] Comment on above: Performed By: #### B MP, CRP #### [facility] [address] [place] [address] Dr. Meron Gentile Bilirubin [Mass/Vol] 0.4 mg/dL Normal 0.2-1.0 [facility] Comment on above: Performed By: #### B MP, CRP #### [facility] [address] [place] [address] Dr. Meron Gentile Calcium [Mass/Vol] 9.0 mg/dL Normal 8.5-10.1 [facility] Comment on above: Performed By: #### B MP, CRP #### [facility] [address] [place] [address] Dr. Meron Gentile Chloride [Moles/Vol] 100 mmol/L Normal 98-107 [facility] Comment on above: Performed By: #### B MP, CRP #### [facility] [address] [place] [address] [address] Meron Gentile CO2 [Moles/Vol] 29.4 mmol/L Normal 21.0-32.0 [facility] Comment on above: Performed By: #### B MP, CRP #### [facility] [address] [place] [address] [address] Meron Gentile Creatinine [Mass/Vol] 0.80 mg/dL Normal 0.70-1.30 [facility] Comment on above: Performed By: #### B MP, CRP #### [facility] [address] [place] [address] Dr. Meron Gentile EGFR-AF [place] >60 Normal >=60 [facility] Comment on above: Performed By: #### B MP, CRP #### [facility] [address] [place] [address] Dr. Meron Gentile EGFR-NON AF [place] >60 Normal >=60 [facility] Comment on above: Performed By: #### B MP, CRP #### [facility] [address] [place] [address] Dr. Meron Gentile Globulin (S) [Mass/Vol] 3.3 g/dL Normal [facility] Comment on above: Performed By: #### B MP, CRP #### [facility] [address] [place] [address] Dr. Meron Gentile Glucose [Mass/Vol] 124 mg/dL Critically high 74-106 [facility] Comment on above: Performed By: #### B MP, CRP #### [facility] [address] [place] [address] Dr. Meron Gentile Potassium [Moles/Vol] 3.9 mmol/L Normal 3.5-5.1 [facility] Comment on above: Performed By: #### B MP, CRP #### [facility] [address] [place] [address] Dr. Meron Gentile Protein [Mass/Vol] 7.0 g/dL Normal 6.4-8.2 [facility] Comment on above: Performed By: #### B MP, CRP #### [facility] [address] [place] [address] Dr. Meron Gentile Sodium [Moles/Vol] 137 mmol/L Normal 136-145 [facility] Comment on above: Performed By: #### B MP, CRP #### [facility] [address] [place] [address] Dr. Meron Gentile Urea nitrogen [Mass/Vol] 10.0 mg/dL Normal 7.0-18.0 [facility] Comment on above: Performed By: #### B MP, CRP #### [facility] [address] [place] [address] Dr. Meron Gentile Urea nitrogen/Creatinine [Mass ratio] 12.5 mg/mg Normal [facility] Comment on above: Performed By: #### B MP, CRP #### [facility] [address] [place] [address] Dr. Meron Gentile TSHon 09-25-2021 TSH 4.858 uIU/mL Critically high 0.358-3.74 0 [facility] Comment on above: Performed By: #### B MP, CRP #### [facility] [address] [place] [address] Dr. Meron Gentile TSH RANGE SEE BELOW Normal [facility] Comment on above: Result Comment: <0.3 4 UIU/ml HYPERTHYROID 0.34-5.60 UIU/ml EUTHYROID >5.60 UIU/ml HYPOTHYROID Performed By: #### B MP, CRP #### [facility] [address] [place] [address] Dr. Meron Gentile URIC ACID SERUMon 09-25-2021 Urate [Mass/Vol] 5.6 mg/dL Normal 3.5-7.2 [facility] Comment on above: Performed By: #### B MP, CRP #### [facility] [address] [place] [address] Dr. Meron Gentile US CAROTID ART BILon [...] MIRIAM DIAZ Date: 2021-09-25 10:43 Normal [facility] XR HUMERUS LT MIN 2Von 09-14 XR HUMERUS LT MIN 2V EXAM: XR HUMERUS LT MIN 2V HISTORY: Pain COMPARISON: None. TECHNIQUE: 2 views of the left humerus FINDINGS: No acute fracture seen. The soft tissues appear unremarkable. IMPRESSION: No acute fracture of the left humerus Electronically authenticated by: DOMINIC ROMERO Date: 2021-09-14 20:27 Normal [facility] Initial Visit (Neurosurgery) on 01-20-2018 Initial Visit (Neurosurgery) No report was sent Normal [facility] ED Provider Noteon 7 HIM IP Note OR St[employer] E[employer] And Servicer Normal [facility] Vital Signs Date Time Vital Sign Value Performing Clinician Facility 10-13-2024 09:26-0400 Body height 177.8 cm Kanika Read APRN.CNP Work Phone: [facility] 10-13-2024 09:26-0400 Body mass index (BMI) [Ratio] 30.13 kg/m2 Kanika Read APRN.CNP Work Phone: [facility] 10-13-2024 09:26-0400 Body weight 95.25 kg Kanika Reda APRN.CNP Work Phone: [facility] 10-13-2024 09:26-0400 Diastolic blood pressure 92 mm[Hg] Kanika Read APRN.STEEL POURER Work Phone: [facility] 10-13-2024 09:26-0400 Heart rate 98 /min Kanika Read APRN.STEEL POURER Work Phone: [facility] 10-13-2024 09:26-0400 SaO2% (BldA) [Mass fraction] 96 % Kanika Read APRN.CNP Work Phone: [facility] 10-13-2024 09:26-0400 Systolic blood pressure 138 mm[Hg] Kanika Read APRN.CNP Work Phone: [facility] 05-27-2024 08:13-0500 Body height 180.[address] [facility] 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.STEEL POURER Work Phone: [facility] 05-27-2024 08:13-0500 Body mass index (BMI) [Ratio] 30.68 kg/m2 [facility] 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.STEEL POURER Work Phone: [facility] 05-27-2024 08:13-0500 Body weight 99.[address] [facility] 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.STEEL POURER Work Phone: [facility] 05-27-2024 08:13-0500 Heart rate 81 /min [facility] 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.STEEL POURER Work Phone: [facility] 05-27-2024 08:13-0500 SaO2% (BldA) [Mass fraction] 98 % [facility] 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.STEEL POURER Work Phone: [facility] 05-25-2024 09:59-0500 Body height 175.3 cm [facility] Work Phone: [facility] 05-25-2024 09:59-0500 Body mass index (BMI) [Ratio] 32.19 kg/m2 [facility] Work Phone: [facility] 05-25-2024 09:59-0500 Body weight 98.88 kg [facility] Work Phone: [facility] 05-23-2024 13:04-0500 Body height 175.3 cm [facility] Work Phone: [facility] 05-23-2024 13:04-0500 Body mass index (BMI) [Ratio] 32.19 kg/m2 [facility] Work Phone: [facility] 05-23-2024 13:04-0500 Body weight 98.88 kg [facility] Work Phone: [facility] 03-30-2024 16:31-0500 Body height 180.3 cm Krzysztof Krzysztof DO Work Phone: [facility] 03-30-2024 16:31-0500 Body mass index (BMI) [Ratio] 30.93 kg/m2 Krzysztof Krzysztof DO Work Phone: [facility] 03-30-2024 16:31-0500 Body weight 100.6 kg Krzysztof Krzysztof DO Work Phone: [facility] 03-30-2024 16:31-0500 Heart rate 110 /min Krzysztof Krzysztof DO Work Phone: [facility] 03-30-2024 16:31-0500 SaO2% (BldA) [Mass fraction] 96 % Krzysztof Krzysztof DO Work Phone: [facility] 01-19-2024 13:41-0400 Body height 177.8 cm Chester Madaiwyatt 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-STEEL POURER Work Phone: [facility] 01-19-2024 13:41-0400 Body mass index (BMI) [Ratio] 32.05 kg/m2 Chester Madaiwyatt 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-STEEL POURER Work Phone: [facility] 01-19-2024 13:41-0400 Body weight 101.33 kg Chester Madaiwyatt 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-STEEL POURER Work Phone: [facility] 01-19-2024 13:41-0400 Diastolic blood pressure 88 mm[Hg] Chester Maher 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-STEEL POURER Work Phone: [facility] 01-19-2024 13:41-0400 Heart rate 80 /min Chester Madaiwyatt 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-STEEL POURER Work Phone: [facility] 01-19-2024 13:41-0400 Respiratory rate 18 /min Chester Nienberg 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-STEEL POURER Work Phone: [facility] 01-19-2024 13:41-0400 SaO2% (BldA) [Mass fraction] 97 % Chester Madaiwyatt 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-STEEL POURER Work Phone: [facility] 01-19-2024 13:41-0400 Systolic blood pressure 130 mm[Hg] Chester Maher 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-STEEL POURER [facility] 12-01-2023 23:30-0400 Diastolic blood pressure 92 mm[Hg] Virgil Tasia [facility] 12-01-2023 23:30-0400 Heart rate 83 /min Virgil Tasia [facility] 12-01-2023 23:30-0400 Mean blood pressure 107 mm[Hg] Virgil Tasia [facility] 12-01-2023 23:30-0400 Nursing Progress Note Reason Other: calling for ride Virgil Tasia [facility] 12-01-2023 23:30-0400 SaO2% (BldA) [Mass fraction] 97 % Virgil Tasia [facility] 12-01-2023 23:30-0400 Systolic blood pressure 138 mm[Hg] Virgil Tasia [facility] 12-01-2023 23:29-0400 Diastolic blood pressure 92 mm[Hg] Virgil Tasia [facility] 12-01-2023 23:29-0400 Heart rate 83 /min Virgil Tasia [facility] 12-01-2023 23:29-0400 Respiratory rate 16 /min Virgil Tasia [facility] 12-01-2023 23:29-0400 SaO2% (BldA) [Mass fraction] 97 % Virgil Tasia [facility] 12-01-2023 23:29-0400 Systolic blood pressure 138 mm[Hg] Virgil Tasia [facility] 12-01-2023 22:32-0400 SaO2% (BldA) [Mass fraction] 97 % Virgil Tasia [facility] 12-01-2023 22:00-0400 Diastolic blood pressure 84 mm[Hg] Virgil Tasia [facility] 12-01-2023 22:00-0400 Mean blood pressure 102 mm[Hg] Virgil Tasia [facility] 12-01-2023 22:00-0400 Systolic blood pressure 137 mm[Hg] Virgil Tasia [facility] 12-01-2023 21:00-0400 Heart rate 91 /min Virgil Tasia [facility] 12-01-2023 19:32-0400 Body temperature 98.42 [degF] Virgil Tasia [facility] 12-01-2023 19:32-0400 Heart rate 94 /min Virgil Tasia [facility] 09-26-2023 11:00-0400 Diastolic blood pressure 70 mm[Hg] MD Uriel Nunez Work Phone: [facility] 09-26-2023 11:00-0400 Heart rate 84 /min MD Uriel Nunez Work Phone: [facility] 09-26-2023 11:00-0400 Respiratory rate 24 /min MD Uriel Nunez Work Phone: [facility] 09-26-2023 11:00-0400 SaO2% (BldA) [Mass fraction] 95 % MD Uriel Nunez Work Phone: [facility] 09-26-2023 11:00-0400 Systolic blood pressure 110 mm[Hg] MD Uriel Nunez Work Phone: [facility] 09-26-2023 09:00-0400 Inhaled oxygen flow rate 2 L/min MD Uriel Nunez Work Phone: [facility] 09-26-2023 08:00-0400 Body temperature 98.2 [degF] MD Uriel Nunez Work Phone: [facility] 09-26-2023 06:00-0400 Body weight 97.8 kg MD Uriel Nunez Work Phone: [facility] 09-24-2023 12:32-0400 Body height 180.34 cm MD Uriel Nunez Work Phone: [facility] 09-23-2023 22:37-0400 Heart rate 124 /min MD Uriel Nunez Work Phone: [facility] 09-23-2023 22:30-0400 Diastolic blood pressure 66 mm[Hg] MD Uriel Nunez Work Phone: [facility] 09-23-2023 22:30-0400 SaO2% (BldA) [Mass fraction] 93 % MD Uriel Nunez Work Phone: [facility] 09-23-2023 22:30-0400 Systolic blood pressure 101 mm[Hg] MD Uriel Nunez Work Phone: [facility] 09-23-2023 22:00-0400 Respiratory rate 20 /min MD Uriel Nunez Work Phone: [facility] 09-23-2023 20:30-0400 Inhaled oxygen flow rate 2 L/min MD Uriel Nunez Work Phone: [facility] 09-23-2023 18:20-0400 Body height 180.34 cm MD Uriel Nunez Work Phone: [facility] 09-23-2023 18:20-0400 Body weight 96.8 kg MD Uriel Nunez Work Phone: [facility] 09-23-2023 18:13-0400 Body temperature 98 [degF] MD Uriel Nunez Work Phone: [facility] 08-26-2023 07:52-0400 Body height 177.8 cm Pacc 3 Work Phone: [facility] 08-26-2023 07:52-0400 Body temperature 97.7 [degF] Pacc 3 Work Phone: [facility] 08-26-2023 07:52-0400 Body weight 97.3 kg Pacc 3 Work Phone: [facility] 08-26-2023 07:52-0400 Diastolic blood pressure 90 mm[Hg] Pacc 3 Work Phone: [facility] 08-26-2023 07:52-0400 Heart rate 84 /min Pacc 3 Work Phone: [facility] 08-26-2023 07:52-0400 SaO2% (BldA) [Mass fraction] 98 % Pacc 3 Work Phone: [facility] 08-26-2023 07:52-0400 Systolic blood pressure 141 mm[Hg] Pacc 3 Work Phone: [facility] 04-22-2023 21:28-0500 Body temperature 97.52 [degF] Kaylinn Dokken [facility] 04-22-2023 21:28-0500 Diastolic blood pressure 70 mm[Hg] Kaylinn Dokken [facility] 04-22-2023 21:28-0500 Heart rate 100 /min Kaylinn Dokken [facility] 04-22-2023 21:28-0500 Respiratory rate 18 /min Kaylinn Dokken [facility] 04-22-2023 21:28-0500 SaO2% (BldA) [Mass fraction] 99 % Kaylinn Dokken [facility] 04-22-2023 21:28-0500 Systolic blood pressure 133 mm[Hg] Kaylinn Dokken [facility] 03-04-2023 10:09-0400 Blood Pressure Location Nahed Lue [facility] 03-04-2023 10:09-0400 Diastolic blood pressure 82 mm[Hg] Nahed Lue [facility] 03-04-2023 10:09-0400 Heart rate 78 /min Nahed Lue [facility] 03-04-2023 10:09-0400 Respiratory rate 16 /min Nahed Lue [facility] 03-04-2023 10:09-0400 Systolic blood pressure 124 mm[Hg] Nahed Lue [facility] 12-16-2022 14:39-0400 Body height 177.8 cm Lino South MD Work Phone: [facility] 12-16-2022 14:39-0400 Body weight 95.25 kg Lino South MD Work Phone: [facility] 12-16-2022 14:39-0400 Diastolic blood pressure 86 mm[Hg] Lino South MD Work Phone: [facility] 12-16-2022 14:39-0400 Heart rate 83 /min Lino South MD Work Phone: [facility] 12-16-2022 14:39-0400 SaO2% (BldA) [Mass fraction] 98 % Lino South MD Work Phone: [facility] 12-16-2022 14:39-0400 Systolic blood pressure 144 mm[Hg] Lino South MD Work Phone: [facility] 10-29-2022 22:34-0400 Body height 177.8 cm MD Uriel Nunez Work Phone: [facility] 10-29-2022 22:34-0400 Body temperature 98.2 [degF] MD Uriel Nunez Work Phone: [facility] 10-29-2022 22:34-0400 Body weight 100.85 kg MD Uriel Nunez Work Phone: [facility] 10-29-2022 22:34-0400 Diastolic blood pressure 86 mm[Hg] MD Uriel Nunez Work Phone: [facility] 10-29-2022 22:34-0400 Heart rate 98 /min MD Uriel Nunez Work Phone: [facility] 10-29-2022 22:34-0400 Respiratory rate 14 /min MD Uriel Nunez Work Phone: [facility] 10-29-2022 22:34-0400 SaO2% (BldA) [Mass fraction] 100 % MD Uriel Nunez Work Phone: [facility] 10-29-2022 22:34-0400 Systolic blood pressure 150 mm[Hg] MD Uriel Nunez Work Phone: [facility] 09-29-2022 13:10-0400 Blood Pressure Location Marilyn Nassar [facility] 09-29-2022 13:10-0400 Body temperature 98.06 [degF] Marilyn Nassar [facility] 09-29-2022 13:10-0400 Diastolic blood pressure 88 mm[Hg] Marilyn Nassar [facility] 09-29-2022 13:10-0400 Heart rate 82 /min Marilyn Nassar [facility] 09-29-2022 13:10-0400 Mean blood pressure 106 mm[Hg] Marilyn Nassar [facility] 09-29-2022 13:10-0400 Respiratory rate 16 /min Marilyn Nassar [facility] 09-29-2022 13:10-0400 SaO2% (BldA) [Mass fraction] 98 % Marilyn Nassar [facility] 09-29-2022 13:10-0400 Systolic blood pressure 142 mm[Hg] Marilyn Nassar [facility] 09-29-2022 12:00-0400 Body temperature 97.7 [degF] Marilyn Nassar [facility] 09-29-2022 12:00-0400 Diastolic blood pressure 84 mm[Hg] Marilyn Nassar [facility] 09-29-2022 12:00-0400 Heart rate 80 /min Marilyn Nassar [facility] 09-29-2022 12:00-0400 SaO2% (BldA) [Mass fraction] 95 % Marilyn Nassar [facility] 09-29-2022 12:00-0400 Systolic blood pressure 134 mm[Hg] Marilyn Nassar [facility] 09-29-2022 11:51-0400 Body temperature 97.52 [degF] Marilyn Nassar [facility] 09-29-2022 11:51-0400 Diastolic blood pressure 111 mm[Hg] Marilyn Nassar [facility] 09-29-2022 11:51-0400 Heart rate 83 /min Marilyn Nassar [facility] 09-29-2022 11:51-0400 Mean blood pressure 117 mm[Hg] Marilyn Nassar [facility] 09-29-2022 11:51-0400 Respiratory rate 17 /min Marilyn Nassar [facility] 09-29-2022 11:51-0400 SaO2% (BldA) [Mass fraction] 94 % Marilyn Nassar [facility] 09-29-2022 11:51-0400 Systolic blood pressure 129 mm[Hg] Marilyn Maday [facility] 09-29-2022 11:40-0400 Mean blood pressure 91 mm[Hg] Marilyn Maday [facility] 09-29-2022 11:40-0400 Respiratory rate 18 /min Marilyn Maday [facility] 09-29-2022 11:35-0400 Respiratory rate 16 /min Marilyn Maday [facility] 09-29-2022 11:26-0400 Body temperature 96.98 [degF] Marilyn Maday [facility] 09-29-2022 08:31-0400 Blood Pressure Location Marilyn Maday [facility] 09-29-2022 08:30-0400 Body temperature 97.52 [degF] Marilyn Maday [facility] 09-29-2022 08:30-0400 Heart rate 96 /min Marilyn Maday [facility] 09-29-2022 08:30-0400 Respiratory rate 18 /min Marilyn Maday [facility] 09-19-2022 13:12-0400 Diastolic blood pressure 86 mm[Hg] Marilyn Nassar [facility] 09-19-2022 13:12-0400 Heart rate 80 /min Marilyn Maday [facility] 09-19-2022 13:12-0400 Mean blood pressure 100 mm[Hg] Marilyn Nassar [facility] 09-19-2022 13:12-0400 Systolic blood pressure 127 mm[Hg] Marilyn Nassar [facility] 09-19-2022 13:12-0400 Blood Pressure Location Marilyn Nassar [facility] 09-19-2022 13:11-0400 Heart rate 82 /min Marilyn Nassar [facility] 09-19-2022 13:11-0400 SaO2% (BldA) [Mass fraction] 96 % Marilyn Nassar [facility] 09-19-2022 13:11-0400 Respiratory rate 16 /min Marilyn Nassar [facility] 09-19-2022 13:10-0400 Body temperature 98.24 [degF] Marilyn Nassar [facility] 09-19-2022 13:10-0400 Diastolic blood pressure 88 mm[Hg] Marilyn Nassar [facility] 09-19-2022 13:10-0400 Mean blood pressure 100 mm[Hg] Marilyn Nassar [facility] 09-19-2022 13:10-0400 Systolic blood pressure 125 mm[Hg] Marilyn Nassar [facility] 09-19-2022 13:10-0400 Blood Pressure Location Marilyn Nassar [facility] 01-07-2022 12:47-0400 Body height 180.3 cm Jose Angel Emery APRN.STEEL POURER Work Phone: [facility] 01-07-2022 12:47-0400 Body weight 98.7 kg Jose Angel Emery APRN.STEEL POURER Work Phone: [facility] 01-07-2022 12:47-0400 Diastolic blood pressure 77 mm[Hg] Jose Angel Emery APRN.STEEL POURER Work Phone: [facility] 01-07-2022 12:47-0400 Heart rate 86 /min Jose Angel Emery APRN.STEEL POURER Work Phone: [facility] 01-07-2022 12:47-0400 Respiratory rate 19 /min Jose Angel Emery APRN.STEEL POURER Work Phone: [facility] 01-07-2022 12:47-0400 SaO2% (BldA) [Mass fraction] 98 % Jose Angel Emery APRN.STEEL POURER Work Phone: [facility] 01-07-2022 12:47-0400 Systolic blood pressure 137 mm[Hg] Jose Angel Emery APRN.STEEL POURER Work Phone: [facility] 08-20-2021 14:15-0400 Body height 180.3 cm Lino South MD Work Phone: [facility] 08-20-2021 14:15-0400 Body weight 98.88 kg Lino South MD Work Phone: [facility] 08-20-2021 14:15-0400 Diastolic blood pressure 87 mm[Hg] Lino South MD Work Phone: [facility] 08-20-2021 14:15-0400 Heart rate 104 /min Lino South MD Work Phone: [facility] 08-20-2021 14:15-0400 Respiratory rate 19 /min Lino South MD Work Phone: [facility] 08-20-2021 14:15-0400 SaO2% (BldA) [Mass fraction] 97 % Lino South MD Work Phone: [facility] 08-20-2021 14:15-0400 Systolic blood pressure 130 mm[Hg] Lino South MD Work Phone: [facility] Encounters Encounter Date Encounter Type Care Provider Facility Start: 02-09-2025 ambulatory Taiwo Jay acility:[facility] Start: 12-14-2024 End: 12-15-2024 Refill Bennett Denney [...] End: 10-13-2024 Patient encounter procedure Kanika Read APRN.STEEL POURER Work Phone: Neurology Comment on above: 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, intractable (HCC) (Primary Dx) Start: 10-13-2024 End: 10-13-2024 ambulatory URIEL NUNEZ Facility:[facility] Start: 10-03-2024 End: 10-03-2024 Telephone encounter Johann Borrero MD Work Phone: Neurosurgery Comment on above: Letter (Return to wo rk) Start: 09-28-2024 End: 09-28-2024 Telephone encounter Johann Borrero MD Work Phone: Neurology Comment on above: medication concern ( (ROBAXIN) ) Start: 09-27-2024 End: 09-27-2024 Chart abstracting César Horan PA-C Work Phone: Neurology Start: 09-25-2024 End: 09-25-2024 ambulatory Ariana Sebastian RN NURSE CREDIT AUTHORIZER Comment on above: Patient Update Start: 09-25-2024 End: 09-25-2024 Patient encounter procedure Ariana Sebastian RN NURSE CREDIT AUTHORIZER Comment on above: Clinical Update Start: 09-25-2024 End: 09-25-2024 Telephone encounter Darryl Beth DO Work Phone: Neurology Start: 09-25-2024 End: 09-27-2024 Evaluation and management of inpatient JOHANN BORRERO Facility:[facility] Start: 09-21-2024 End: 09-21-2024 Telephone encounter Krzysztof E Krzysztof DO Work Phone: Pain Management Comment on above: Procedure Follow Up (Right L5-S1 lumbar facet joint medial branch nerve radiofrequency ablation under fluoroscopic guidance. / /) Start: 09-21-2024 End: 09-21-2024 ambulatory [facility] Facility:[facility] Start: 09-19-2024 End: 09-19-2024 ambulatory KRZYSZTOF E KRZYSZTOF Facility:[facility] Start: 09-14-2024 End: 09-15-2024 Refill Monika Siddiqui PA-C Work Phone: Neurology Comment on above: Refill Request Start: 09-01-2024 End: 09-01-2024 Telephone encounter Krzysztof E Krzysztof DO Work Phone: Pain Management Comment on above: Post Op Start: 08-31-2024 End: 08-31-2024 [facility] Facility:[facility] Start: 08-18-2024 End: 08-18-2024 Telephone encounter Krzysztof E Krzysztof DO Work Phone: Pain Management Comment on above: pain procedure respo nse & follow up (Right Diagnostic L5-S1 Lumbar facet joint medial branch nerve block #1) Start: 08-17-2024 End: 08-17-2024 [facility] Facility:[facility] Start: 08-16-2024 End: 08-17-2024 Refill Dutch Love APRN.CNP Work Phone: Neurology Comment on above: Refill Request Start: 08-02-2024 End: 08-02-2024 [facility] Facility:[facility] Start: 07-29-2024 End: 07-29-2024 Telephone encounter Krzysztof [...] Start: 07-20-2024 End: 07-20-2024 Refill Dutch Love 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.STEEL POURER Work Phone: Neurology Comment on above: Refill Request Start: 06-22-2024 End: 06-22-2024 ambulatory Jodi Denney APRN.STEEL POURER Work Phone: Pain Management Start: 06-22-2024 End: 06-22-2024 Patient encounter procedure Jodi Denney 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.STEEL POURER Work Phone: Pain Management Comment on above: Appointment Start: 06-15-2024 End: 06-15-2024 ambulatory URIEL Nallely MUNOZJesus Facility:[facility] Start: 06-08-2024 End: 06-09-2024 ambulatory Jodi Denney 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.STEEL POURER Work Phone: Pain Management Comment on above: Jaye Harvey Start: 06-08-2024 End: 06-08-2024 Patient encounter procedure Jodi Denney 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.STEEL POURER Work Phone: Pain Management Comment on above: Appointment Start: 06-08-2024 End: 06-08-2024 Telephone encounter Lino South MD Work Phone: Neurology Comment on above: Medication Problem ( May patient use Lyrica for his arthritis?) Start: 06-06-2024 End: 06-08-2024 Telephone encounter Jodi Denney 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.STEEL POURER Work Phone: Pain Management Comment on above: Results Start: 06-01-2024 End: 06-13-2024 Telephone encounter Shawnee Jonas PT [facility] PT Comment on above: re: CX PT eval over MyChart; post Check-up; FU Start: 05-27-2024 End: 05-27-2024 Patient encounter procedure Yeimi Monae RT(R) Radiology Start: 05-27-2024 End: 05-27-2024 Subsequent hospital visit by physician Xr [facility] Comment on above: Neck pain [M54.2] Start: 05-27-2024 End: 05-27-2024 ambulatory Yeimi Monae RT(R) Radiology Comment on above: Radiology XR Start: 05-27-2024 End: 05-27-2024 Office outpatient visit 25 minutes Jodi Denney APRN.STEEL POURER Work Phone: Pain Management Comment on above: [...] Start: 05-24-2024 End: 05-24-2024 Telephone encounter Jodi Dneney APRN.STEEL POURER Work Phone: Pain Management Start: 05-24-2024 End: 05-24-2024 ambulatory URIEL Browning ALEXANDERJesus Facility:[facility] Start: 05-24-2024 End: 05-24-2024 Patient encounter procedure Jemima Purdy 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.STEEL POURER Work Phone: Neurosurgery Comment on above: 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, intractable (HCC) (Primary Dx); 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 Start: 05-24-2024 End: 05-24-2024 Subsequent hospital visit by physician Mri 3 Radio Main Q (I-Stat/1.5t/3t) Work Phone: MRI Q Comment on above: Spinal stenosis of l umbar region without neurogenic claudication [M48.061] Start: 05-24-2024 End: 05-24-2024 ambulatory [facility] Facility:[facility] Start: 05-24-2024 End: 05-24-2024 Patient encounter procedure Jemima Purdy APRN.STEEL POURER Work Phone: Neurosurgery Comment on above: 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, intractable (HCC) (Primary Dx); 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 Start: 05-23-2024 End: 05-23-2024 E-mail encounter from caregiver Jodi Denney 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.STEEL POURER Work Phone: Pain Management Start: 05-23-2024 End: 05-23-2024 Patient encounter procedure Paola DE LA FUENTE Work Phone: [facility] Comment on above: Osteoarthritis of pa tellofemoral joints, bilateral (Primary Dx) Start: 05-23-2024 End: 05-23-2024 ambulatory Jodi Garcia Gera 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.STEEL POURER Work Phone: Pain Management Comment on above: Pain Questionnaire Start: 05-17-2024 End: 05-19-2024 Refill Monika Siddiqui PA-C Work Phone: Neurology Comment on above: Refill Request Start: 04-01-2024 End: 04-01-2024 Telephone encounter Marilyn Finch RT(R) [facility] Comment on above: Orders Start: 03-30-2024 End: 03-30-2024 ambulatory [facility] Facility:[facility] Start: 03-30-2024 End: 03-30-2024 Patient encounter procedure [...] End: 03-26-2024 ambulatory Arvin Cifuentes RN NURSE CREDIT AUTHORIZER Comment on above: Numbness/Tingling Start: 03-26-2024 End: 03-26-2024 Chart abstracting Lucinda Oliveros MD Work Phone: Neurosurgery Start: 03-17-2024 End: 03-18-2024 Refill Dutch Love APRN.STEEL POURER Work Phone: Neurology Comment on above: Refill [...] 03-02-2024 End: 03-02-2024 Telephone encounter Lj Cabello MASTER HEARTH TECHNICIAN [facility] PT Comment on above: re: [...] Start: 03-01-2024 End: 03-01-2024 ambulatory No Pcp 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 [facility] Start: 03-01-2024 End: 03-01-2024 Patient encounter procedure No Pcp 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 [facility] Start: 03-01-2024 End: 03-09-2024 Telephone encounter Love Espinoza RN [facility] Start: 02-29-2024 End: 02-29-2024 ambulatory URIEL NUNEZ Facility:[facility] Start: 02-22-2024 End: 02-22-2024 Bamboo flowsheet Shawnee [...] 02-18-2024 End: 02-18-2024 Telephone encounter Ramin Peacock MASTER HEARTH TECHNICIAN [facility] Start: 02-04-2024 End: 02-04-2024 [...] on. He said w/ appts w/ [facility] he'll wait till post Eval.) Start: 01-19-2024 End: 01-19-2024 ambulatory [facility] Start: 01-19-2024 End: 01-19-2024 Office outpatient new 45 minutes Dania GARCIA Work Phone: [facility] Comment on above: Chronic thoracic spi ne pain (Primary Dx); Acute exacerbation of chronic low back pain; Chronic bilateral low back pain, unspecified whether sciatica present Start: 01-19-2024 End: 01-21-2024 Refill Inez Cordero PA-C Work Phone: Neurology Comment on above: Refill Request Start: 01-19-2024 End: 01-19-2024 ambulatory [facility] Start: 12-28-2023 End: 12-28-2023 Emergency department patient visit URIEL NUNEZ [facility] Start: 12-28-2023 End: 12-28-2023 ambulatory URIEL NUNEZ Facility:[facility] Start: 12-01-2023 End: 12-02-2023 Emergency department patient visit Virgil Dozier [facility] Start: 11-23-2023 Telephone encounter [place] Neurology Comment on above: Social Work Services Start: 11-03-2023 End: 11-03-2023 ambulatory Kanika Read APRN.STEEL POURER Work Phone: Neurology Comment on above: Partial [...] Work Phone: Neurosurgery Start: 11-01-2023 Refill Lizeth PICKARDNBradleySTEEL POURER Work Phone: Neurology Comment on above: Refill Request Start: 10-13-2023 Refill Lino South MD Work Phone: Neurology Comment on above: Refill Request Social Work Services Start: 09-25-2023 Non-patient / Non-visit MD Jes Nunez Work Phone: [facility] Work Phone: Start: 09-24-2023 Non-patient / Non-visit MD Jes Nunez Work Phone: [facility] Pulmonary Disease Work Phone: Start: 09-23-2023 End: 09-26-2023 Evaluation and management of inpatient MD Uriel Nunez Work Phone: [facility] Work Phone: Start: 09-22-2023 Registered Recurring MD Johny Nunez Work Phone: [facility] Cred[facility] Start: 09-17-2023 Admission to [facility] Provider Neurosurgery Comment on above: [...] Start: 08-26-2023 End: 08-26-2023 Preprocedural examination done [facility] Main Work Phone: [facility] Work Phone: Start: 08-10-2023 Telephone encounter Johann Borrero MD Work Phone: Neurology Comment on above: Other (Surgery Time, Transportation) Start: 08-06-2023 Telephone encounter Lino voss MD Work Phone: Neurology Comment on above: Forms (bmv) Start: 08-05-2023 Admission to [facility] Johann Borrero MD Work Phone: Neurosurgery Comment on above: Schedule Surgery (VN S change) Start: 08-05-2023 ambulatory Johann ghosh MD Work Phone: [facility] Start: 08-05-2023 Patient encounter status Wayne Borrero MD Work Phone: [facility] Start: 08-05-2023 Telephone encounter Kristin jackson MD Work Phone: Neurosurgery Comment on above: Pulp Tester - O ther Start: 08-03-2023 Telephone encounter [...] 07-17-2023 Emergency department patient visit ESTELA VARGAS [facility] Start: 07-12-2023 Non-patient / Non-visit MD Jes Nunez Work Phone: [facility] Work Phone: Start: 06-26-2023 Telephone encounter Geraldine gandara MD Work Phone: Neurology Comment on above: Medication Authoriza timartin Start: 06-24-2023 ambulatory URIEL NUNEZ Facility: [facility] Start: 06-24-2023 End: 06-24-2023 Subsequent hospital visit by physician Iop Team B [facility] [place] Comment on above: Discharge Summary - Afua Rae [facility] - 06/24/2023 9:00 AM EST Summary: DBT [...] additional support at a local emergency room ([facility]) if needed, and has also been [...] included)... Start: 06-23-2023 ambulatory URIEL NUNEZ Facility: [facility] Start: 06-23-2023 End: 06-23-2023 Subsequent hospital visit by physician Iop Team B [facility] [place] Start: 06-22-2023 ambulatory URIEL NUNEZ Facility: [facility] Start: 06-22-2023 End: 06-22-2023 Subsequent hospital visit by physician Iop Team B [facility] [place] Start: 06-19-2023 End: 06-19-2023 ambulatory Nahed Doran Facility:[facility] Start: 06-19-2023 End: 06-19-2023 Patient encounter procedure Nahed Doran [facility] Start: 06-18-2023 ambulatory URIEL NUNEZ Facility: [facility] Start: 06-18-2023 End: 06-18-2023 Subsequent hospital visit by physician Iop Team B [facility] [place] Start: 06-17-2023 ambulatory URIEL NUNEZ Facility: [facility] Start: 06-17-2023 End: 06-17-2023 Subsequent hospital visit by physician Iop Team B [facility] [place] Start: 06-16-2023 ambulatory URIEL NUNEZ Facility: [facility] Start: 06-16-2023 End: 06-16-2023 Subsequent hospital visit by physician Iop Team B [facility] [place] Start: 06-15-2023 ambulatory URIEL M HOY Facility: [facility] Start: 06-15-2023 End: 06-15-2023 Subsequent hospital visit by physician Iop Team B [facility] [place] Start: 06-11-2023 ambulatory URIEL M HOY Facility: [facility] Start: 06-11-2023 End: 06-11-2023 Subsequent hospital visit by physician Mya Tena APRN.STEEL POURER Work Phone: [facility] [place] Start: 06-09-2023 ambulatory URIEL M HOY Facility: [facility] Start: 06-09-2023 End: 06-09-2023 Subsequent hospital visit by physician Iop Team B [facility] [place] Start: 06-08-2023 ambulatory URIEL M HOY Facility: [facility] Start: 06-08-2023 End: 06-08-2023 Subsequent hospital visit by physician Iop Team B [facility] [place] Start: 06-05-2023 End: 06-05-2023 ambulatory NICK LA Facility:[facility] Start: 06-04-2023 ambulatory URIEL M HOY Facility: [facility] Start: 06-04-2023 End: 06-04-2023 Subsequent hospital visit by physician Iop Team B [facility] [place] Start: 06-03-2023 ambulatory URIEL M HOY Facility: [facility] Start: 06-03-2023 End: 06-03-2023 Subsequent hospital visit by physician Iop Team B [facility] [place] Start: 05-29-2023 ambulatory Nahed Doran Facility:[facility] Start: 05-28-2023 ambulatory URIEL M HOY Facility: [facility] Start: 05-27-2023 ambulatory URIEL M HOY Facility: [facility] Start: 05-27-2023 End: 05-27-2023 Subsequent hospital visit by physician Iop Team B [facility] [place] Start: 05-27-2023 ambulatory URIEL M HOY Facility: [facility] Start: 05-27-2023 End: 05-27-2023 Subsequent hospital visit by physician Mya Tena APRN.STEEL POURER Work Phone: [facility] [place] Start: 05-26-2023 ambulatory URIEL M HOY Facility: [facility] Start: 05-26-2023 End: 05-26-2023 Subsequent hospital visit by physician Iop Team B [facility] [place] Start: 05-25-2023 ambulatory URIEL M HOY Facility: [facility] Start: 05-25-2023 End: 05-25-2023 Subsequent hospital visit by physician Mya Tena APRN.STEEL POURER Work Phone: [facility] [place] Comment on above: Canceled (Pt cx: Radha cardenas in Condition, Sick) Start: 05-21-2023 ambulatory URIEL M HOY Facility: [facility] Start: 05-21-2023 End: 05-21-2023 Subsequent hospital visit by physician Iop Team B [facility] [place] Start: 05-20-2023 ambulatory URIEL M HOY Facility: [facility] Start: 05-20-2023 End: 05-20-2023 Subsequent hospital visit by physician Iop Team B [facility] [place] Start: 05-19-2023 ambulatory URIEL M HOY Facility: [facility] Start: 05-19-2023 End: 05-19-2023 Subsequent hospital visit by physician Iop Team B [facility] [place] Start: 05-14-2023 ambulatory URIEL M HOY Facility: [facility] Start: 05-14-2023 End: 05-14-2023 Subsequent hospital visit by physician Iop Team B [facility] [place] Start: 05-13-2023 ambulatory URIEL M HOY Facility: [facility] Start: 05-13-2023 End: 05-13-2023 Subsequent hospital visit by physician Iop Team B [facility] [place] Start: 05-12-2023 ambulatory URIEL M HOY Facility: [facility] Start: 05-12-2023 End: 05-12-2023 Subsequent hospital visit by physician Josi Queen PA-C Work Phone: [facility] [place] Start: 04-27-2023 ambulatory URIEL NUNEZ Facility: [facility] Start: 04-22-2023 End: 04-22-2023 Emergency department patient visit Issa Levy [facility] Start: 04-07-2023 Telephone encounter Lewis harding [facility] Work Phone: Psychiatry Comment on above: Patient Update Start: 03-26-2023 Refill Lino South MD Work Phone: Neurology Comment on above: Refill Request Start: 03-04-2023 End: 03-04-2023 ambulatory Nahed Doran Facility:[facility] Start: 03-04-2023 End: 03-04-2023 Lab Drop off Nahed Doran [facility] Start: 03-04-2023 End: 03-04-2023 ambulatory Nahed Fowlere Facility:[facility] Start: 03-04-2023 End: 03-04-2023 Patient encounter procedure Nahed Doran [facility] Start: 02-27-2023 End: 02-27-2023 ambulatory Geraldine Alonso MD Work Phone: Neurology Comment on above: Chronic migraine wit hout aura without status migrainosus, not intractable (Primary Dx) Start: 02-27-2023 End: 02-27-2023 Telemedicine consultation with patient Geraldine Alonso MD Work Phone: [facility] Start: 01-29-2023 End: 01-29-2023 ambulatory Geraldine Alonso MD Work Phone: Neurology Comment on above: Chronic migraine wit hout aura without status migrainosus, not intractable (Primary Dx) Start: 01-29-2023 End: 01-29-2023 Telemedicine consultation with patient Geraldine Alonso MD Work Phone: [facility] Start: 12-16-2022 Telephone encounter Lino voss MD [...] patient visit MD Uriel Nunez Work Phone: [facility] Work Phone: Start: 09-29-2022 End: 09-29-2022 Admission to same day surgery center Marilyn Nassar [facility] Start: 09-19-2022 ambulatory Facility:1 [id number] Start: 09-19-2022 End: 09-19-2022 Patient encounter procedure Marilyn Nassar [facility] Start: 09-17-2022 Telephone encounter Lino voss MD Work Phone: Neurology Comment on above: Letter (Surgery colton santiago) Start: 08-28-2022 ambulatory Lino South MD Work Phone: Neurology Comment on above: VNS Start: 08-12-2022 End: 08-12-2022 ambulatory GERALDINE ALONSO Facility:[facility] Start: 07-31-2022 Telephone encounter Lino voss MD [...] 01-07-2022 Patient encounter procedure Jose Angel Emery APRN.STEEL POURER Work Phone: Neurosurgery Comment on above: S/P [...] Facili ty:H1 Start: 10-04-2021 End: 10-04-2021 [facility] Lesviamontrell KRAUSYD Work Phone: Neurology Comment on [...] NUNEZ . 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 Procedures Date Procedure Procedure Detail Performing Clinician Start: 09-25-2024 Antibody screen URIEL NUNEZ Comment on above: Order Comment: Speci men Type: BLOOD SPECIMEN Ordering Facility: [facility] Address: [address] [place] [address] Performed By: #### T SCR #### [facility] MAIN BLOOD B[facility] CLIA [id number] [id number] [facility] DESK [id number] [place] [address] [place] Start: 05-27-2024 Radex spine cervical 4 or 5 views Jodi Denney 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.STEEL POURER Work Phone: Start: 05-25-2024 Radex shoulder compl [...] Performed By: #### C MADM, BMP #### [facility] [address] [place] [address] Dr. Meron Gentile Start: 06-20-2020 Lipid 1996 [...] S jaspreet or Plasma Lipid Screening [facility] Start: 06-20-2025 Lipid panel Lipid Screening [facility] Start: 06-20-2025 LIPID SCREEN LIPID SCREEN [facility] Start: 01-18-2025 Adult BMI Screening Adult BMI Screen ing [facility] Start: 01-18-2025 Tobacco Screening Tobacco Screening [facility] Start: 01-16-2025 Influenza vaccination C [facility] Start: 12-01-2024 End: 12-01-2024 Admission to same day surgery center 12/01/2024 1:00 PM EDT [facility] [address] [place] [address] Aida Ervin PA-C [address] [place] [address] artial epilepsy with impairment of consciousness, intractable (HCC) Neurosurgery Comment on above: artial epilepsy with impairment of consciousness, intractable (HCC) Start: 11-29-2024 End: 11-29-2024 Patient encounter procedure 11/29/2024 10:30 AM EDT Office Visit Pain Management [address] [place] [address] [place] [address] [place] [address] RFA follow up, patient reuesting to be seen in [place] [facility] Comment on above: RFA follow up, patie nt reuesting to be seen in [place] Start: 11-02-2024 End: 11-02-2024 Patient encounter procedure 11/02/2024 10:00 AM EDT Office Visit Neurology [address] [place] [address] Bennett Denney PA-C [address] [facility] [address] [place] [address] Vagus Nerve Stimulation (VNS) Neurology Comment on above: Vagus Nerve Stimulat ion (VNS) Start: 10-13-2024 End: 10-13-2024 Patient encounter procedure 10/13/2024 9:30 AM EDT Office Visit Neurology [address] [place] [address] Kanika Read APRN.STEEL POURER [address] [place] [address] Vagus Nerve Stimulation (VNS) - device needs to be turned up Neurology Comment on above: Vagus Nerve Stimulat ion (VNS) - device needs to be turned up Start: 09-19-2024 End: 09-19-2024 Admission to same day surgery center 09/19/2024 9:00 AM EDT - 09/19/2024 9:33 AM EDT Surgery Procedures [address] [place] [address] [place] [address] [place] [address] DESTRUCTION BY NEUROLYTIC AGENT PARAVERTEBRAL FACET JOINT [...] physician 08/31/2024 Hospital Encounter Ambulatory Surgery [address] [place] [address] Krzysztof, [place] [address] [place] [address] Lumbosacral spondylosis without myelopathy [M47.817], Degeneration of [...] 11:28 AM EDT Surgery Ambulatory Surgery [address] [place] [address] [place] [address] [place] [address] BLOCK JOINT FACET LUMBAR OR SACRAL WITH C-ARM Ambulatory Surgery Comment on above: BLOCK JOINT FACET KAYLA MBAR OR SACRAL WITH C-ARM Start: 08-17-2024 End: 08-17-2024 Njx dx/ther agt pvrt facet jt lmbr/sac 1 level [facility] [place] Start: 08-17-2024 Subsequent hospital visit by physician 08/17/2024 11:00 AM EDT Hospital Encounter Ambulatory Surgery [address] [place] [address] [place] [address] [place] [address] Lumbosacral spondylosis without myelopathy [M47.817], Degeneration of intervertebral disc of lumbar region with discogenic back pain [M51.360] Ambulatory Surgery Comment on above: Lumbosacral spondylo sis without myelopathy [M47.817], Degeneration of intervertebral disc of lumbar region with discogenic back pain [M51.360] Start: 08-05-2024 End: 08-05-2024 ambulatory 08/05/2024 9:30 AM EDT [facility] [address] [place] [address] Jodi Denney, 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.STEEL POURER [address] [place] [address] 10 week VV Pain Management Comment on above: 10 week VV Start: 07-27-2024 End: 07-27-2024 ambulatory 07/27/2024 5:00 PM EDT [facility] [address] [place] [address] [place] [address] [place] [address] re-eval Pain Management Comment on above: re-eval Start: 07-06-2024 End: 07-06-2024 Patient encounter procedure 07/06/2024 10:30 AM EST Office Visit [facility] [address] [place] [address] Paola Arvizu PA [address] [place] [address] [facility] Start: 06-28-2024 End: 06-28-2024 Follow-up encounter 06/28/2024 12:00 PM EST [facility] [address] [facility] [place] [address] [place] [address] [address]OMES [address] [place] [address] follow up Pain Management Comment on above: follow up Start: 06-16-2024 End: 06-16-2024 ambulatory 06/16/2024 11:00 AM EST Evaluation [facility] PT [address] [facility] [address] [place] [address] Brian Mancilla, PT [address] [facility] [address] [place] [address] [facility] CI PT Start: 05-27-2024 End: 05-27-2024 Patient encounter procedure 05/27/2024 8:00 AM EST Office Visit Pain Management [address] [facility] [place] [place] [address] Jodi Denney, 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.STEEL POURER [address] [facility] [place] [address] follow up after mri Pain Management Comment on above: follow up after mri Start: 05-25-2024 End: 05-25-2024 Patient encounter procedure 05/25/2024 10:15 AM EST Office Visit [facility] [address] [place] [address] Paola Arvizu PA [address] [place] [address] [facility] Start: 05-24-2024 End: 05-24-2024 Patient encounter procedure MRI Q Comment on above: DUE TO PT IMPLANT- I F APPT NEEDS TO BE RESCHEDULED IT MUST BE SENT TO THE FOLLOWING STAFF MESSAGE ADDRESS: IMAGING IMPLANTS [[id number]]. VNS, approved to schedule by Tim. VNS turn on Start: 05-24-2024 End: 05-24-2024 Patient encounter procedure 05/24/2024 8:30 AM EST Office Visit Neurosurgery [address] [place] [address] Jemima Purdy APRN.STEEL POURER [address] [place] [address] VNS Turn off Neurosurgery Comment on above: VNS Turn off Start: 03-30-2024 End: 03-30-2024 Patient encounter procedure 03/30/2024 4:30 PM EST Office Visit Pain Management [address] [place] [address] [place] [address] [facility] [address] [place] [place], [place] [id number] M51.360 (ICD-10-CM) - Degeneration of intervertebral disc of lumbar region with discogenic back pain Pain Management Comment on above: M51.360 (ICD-10-CM) - Degeneration of intervertebral disc of lumbar region with discogenic back pain Start: 03-09-2024 End: 03-09-2024 ambulatory 03/09/2024 10:00 AM EDT Treatment [facility] [address] [id number] Shawnee Jonas, PT [facility] Start: 03-07-2024 End: 03-07-2024 ambulatory 03/07/2024 9:30 AM EDT Treatment [facility] [address] [facility] [address] [place] [address] Shawnee Jonas, PT [facility] Start: 03-02-2024 End: 03-02-2024 ambulatory 03/02/2024 9:30 AM EDT Treatment [facility] [address] [place] [place] [address] Lj Cabello, MASTER HEARTH TECHNICIAN [facility] Start: 03-01-2024 End: 03-01-2024 Patient encounter procedure 03/01/2024 8:15 AM EDT Office Visit [facility] [address] [place] [id number] Chester Maher, 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-STEEL POURER [address] [place] [address] [facility] Start: 02-29-2024 End: 02-29-2024 ambulatory 02/29/2024 10:00 AM EDT Treatment [facility] [address] [place] [place] [address] Lj Cabello MASTER HEARTH TECHNICIAN [facility] Start: 02-24-2024 End: 02-24-2024 ambulatory 02/24/2024 9:30 AM EDT Treatment [facility] [address] [place] [place] [address] Lj Cabello, MASTER HEARTH TECHNICIAN [facility] Start: 02-22-2024 End: 02-22-2024 ambulatory [facility] Comment on above: Arrived Start: 02-15-2024 End: 02-15-2024 Patient encounter procedure 02/15/2024 11:00 AM EDT Office Visit [facility] [address] [place] [phone] Paola Arvizu PA [address] [place] [address] [facility] Start: 01-17-2024 Covid-19 Vaccine () Covid-19 Vaccine () [facility] Start: 01-17-2024 Covid-19 Vaccine ( season) Covid-19 Vaccine ( season) [facility] Start: 01-17-2024 Influenza vaccination [facility] Start: 11-03-2023 End: 02-02-2024 LACOSAMIDE LACOSAMIDE Lab Routine Partial epilepsy with impairment of consciousness, intractable (HCC) Expected: 11/03/2023, Expires: 02/02/2024 [facility] Work Phone: Comment on above: Expected: 11/03/2023 , Expires: 02/02/2024 Start: 11-03-2023 End: 11-03-2023 Patient encounter procedure Neurology Comment on above: follow up f/u Start: 09-28-2023 End: 09-28-2023 Admission to same day surgery center 09/28/2023 11:30 AM EDT [facility] Neurosurgery [address] [id number] Aida Ervin PA-C [address] [place] [address] POST-OP 6WKS Neurosurgery Comment on above: POST-OP 6WKS Start: 09-26-2023 [facility] Start: 09-25-2023 Referral to psychiatrist [facility] Start: 09-23-2023 Consultation [facility] Start: 09-23-2023 Hospital admission [facility] Start: 08-26-2023 End: 11-25-2023 aPTT in Platelet poor plasma by Coagulation assay ACTIVATED PTT Lab Routine Encounter for therapeutic drug level monitoring Expected: 08/26/2023, Expires: 11/25/2023 [facility] Work Phone: Comment on above: Expected: 08/26/2023 , Expires: 11/25/2023 Start: 08-26-2023 End: 11-25-2023 CBC panel - Blood by Automated count CBC Lab Routine Preoperative testing Expected: 08/26/2023, Expires: 11/25/2023 [facility] Work Phone: Comment on above: Expected: 08/26/2023 , Expires: 11/25/2023 Start: 08-26-2023 End: 11-25-2023 Comprehensive metabolic 2000 panel - Serum or Plasma COMP METABOLIC PANEL Lab Routine Preoperative testing Expected: 08/26/2023, Expires: 11/25/2023 [facility] Work Phone: Comment on above: Expected: 08/26/2023 , Expires: 11/25/2023 Start: 08-26-2023 End: 11-25-2023 PT panel - Platelet poor plasma by Coagulation assay PROTHROMBIN TIME/PT Lab Routine Encounter for therapeutic drug level monitoring Expected: 08/26/2023, Expires: 11/25/2023 [facility] Work Phone: Comment on above: Expected: 08/26/2023 , Expires: 11/25/2023 Start: 08-26-2023 End: 02-01-2024 STAPH AUREUS PCR STAPH AUREUS PCR Lab Routine Preoperative testing Expected: 08/26/2023, Expires: 02/01/2024 [facility] Work Phone: Comment on above: Expected: 08/26/2023 , Expires: 02/01/2024 Start: 08-03-2023 End: 11-02-2023 LACOSAMIDE LACOSAMIDE Lab Routine Partial epilepsy with impairment of consciousness, intractable (HCC) Expected: 08/03/2023, Expires: 11/02/2023 [facility] Work Phone: Comment on above: Expected: 08/03/2023 , Expires: 11/02/2023 Start: 01-16-2023 Covid-19 Vaccine ( season) Covid-19 Vaccine () [facility] Start: 01-16-2023 Influenza vaccination [facility] Start: 10-29-2022 Radiologic examinati on of knee XR knee LT 4V* [facility] Start: 01-16-2022 Influenza vaccination [facility] Start: 08-09-2021 COVID-19 VACCINE (3 - Booster for Pfizer series) COVID-19 VACCINE (3 - Booster for Pfizer series) [facility] Start: 05-06-2021 COVID-19 VACCINE (3 - Booster for Pfizer series) COVID-19 VACCINE (3 - Booster for Pfizer series) [facility] Start: 05-06-2021 COVID-19 VACCINE (3 - Pfizer series) COVID-19 VACCINE (3 - Pfizer series) [facility] Start: 02-15-2006 Medicare Annual Well ness Visit Medicare Annual Wellness Visit [facility] Start: 2001 DTaP,Tdap and Td Vaccines (1 - Tdap) DTaP,Tdap and Td Vaccines (1 - Tdap) [facility] Start: 2001 Hepatitis B Vaccine (1 of 3 - 19+ 3-dose series) Hepatitis B Vaccine (1 of 3 - 19+ 3-dose series) [facility] Start: 2001 Urine microalbumin profile [facility] Start: 2000 Adult BMI Follow Up Plan Adult BMI Follow Up Plan [facility] Start: 2000 Annual PCP Team Import Export Agent [place] Disease Visit Annual PCP Team Chronic Disease Visit [facility] Start: 2000 BP Controlled (<130/80) BP Controlle d (<130/80) [facility] Start: 1994 Depression Screening Depression Scre ening [facility] Start: 1982 HEPATITIS B (1 of 3 - 3-dose series) HEPATITIS B (1 of 3 - 3-dose series) [facility] Start: 1982 Hepatitis B Vaccine (1 of 3 - 3-dose series) Hepatitis B Vaccine (1 of 3 - 3-dose series) [facility] Dstr nrolytc agnt parverteb fct sngl lmbr/sacral DESTRUCTION BY NEUROLYTIC AGENT PARAVERTEBRAL FACET JOINT NERVE(S) LUMBAR SINGLE FACET JOINT W/IMAGE GUIDANCE FLUORO OR CT Lumbosacral spondylosis without myelopathy Degeneration of intervertebral disc of lumbar region with discogenic back pain AV ENDO ECG COMPLETE ECG COMPLETE ECG Routine Pre-op evaluation 08/26/2023 8:52 AM EDT [facility] Work Phone: End: 04-29-2025 MR Lumbar spine WO contrast MRI LUMBAR SPINE WO IVCON Radiology Routine Spinal stenosis of lumbar region without neurogenic claudication 1 Occurrences starting 03/30/2024 until 04/29/2025 [facility] Work Phone: Comment on above: 1 Occurrences starti ng 03/30/2024 until 04/29/2025 Njx dx/ther agt pvrt facet jt lmbr/sac 1 level [facility] Patient referral [facility] Work Phone: Procalcitonin [Mass/volume] in Serum or Plasma [facility] REFER FOR ADMIT INTERVIEW REFER FOR ADMIT INTERVIEW Procedures Routine Preoperative testing Ordered: 08/05/2023 [facility] Work Phone: Comment on above: Ordered: 08/05/2023 End: 09-03-2024 XR Chest PA and Lateral XR CHEST 2V FRONTAL/LAT Radiology Routine Preoperative testing 1 Occurrences starting 08/05/2023 until 09/03/2024 [facility] Work Phone: Comment on above: 1 Occurrences starti ng 08/05/2023 until 09/03/2024 End: 01-18-2025 XR Lumbar spine 2 or 3 Views X-ray spine lumbar 2 or 3 views Imaging Routine Chronic bilateral low back pain, unspecified whether sciatica present 1 Occurrences starting 01/19/2024 until 01/18/2025 [facility] Work Phone: Comment on above: 1 Occurrences starti ng 01/19/2024 until 01/18/2025 XR Lumbar spine 2 or 3 Views X-ray spine lumbar 2 or 3 views Imaging Routine Chronic bilateral low back pain, unspecified whether sciatica present 01/19/2024 2:57 PM EDT [facility] End: 09-03-2024 XR Neck AP and Lateral XR NECK SOFT TISSUE 2V AP/LAT Radiology Routine Preoperative testing 1 Occurrences starting 08/05/2023 until 09/03/2024 [facility] Work Phone: Comment on above: 1 Occurrences starti ng 08/05/2023 until 09/03/2024 [facility] Immunizations Immunization Date Immunization Notes Care Provider Fa cility 03-11-2021 SARS-CoV-2 (COVID-19 ) mRNA BNT-162b2 vax Nahed Lue [facility] Comment on above: Result Comment: 2022: TPVALL 02-18-2021 SARS-CoV-2 (COVID-19 ) mRNA BNT-162b2 vax Nahed Lue [facility] Comment on above: Result Comment: 2022: TPVALL Payers Date Payer Category Payer Self-pay [id number] 2017 Medicaid MEDICAID [facility] MEDICAID [id number] 2017-Present [phone] [address] [place] [address] Medicaid [id number] 2017 Medicaid [id number] [id number] 2014 Medicare [id number] 2005 Medicare MEDICARE MEDICAR E A AND B [id number] 2005-Present [phone] [address] [address] [place] [address] Medicare [id number] 2005 Medicare [id number] 1.13.159.2.7.3.6 [id number] 1982 Unknown [id number] 2.16.840.1.329237.3.579.2.59 1982 Unknown [id number] 2.16.840.1.495823.3.579.2.59 1982 Unknown [id number] 2.16.840.1.434087.3.579.259 1982 Unknown [id number] 2.16.840.1.407602.3.579.259 1982 Unknown [id number] 2.840.1.300001.3.579.259 1982 Unknown [id number] 2.840.1.174379.3.579.259 1982 Unknown [id number] 2.840.1.446424.3.579.259 1982 Unknown [id number] 2.840.1.864245.3.579.2.356 1982 Unknown [id number] 2.840.1.553778.3.579.272 1982 Unknown [id number] 2.840.1.658296.3.579.272 1982 Unknown [id number] 2.840.1.447243.3.579.272 1982 Unknown [id number] 2.840.1.027763.3.579.272 1982 Unknown [id number] 2.840.1.407659.3.579.272 1982 Unknown [id number] 2.840.1.172986.3.579.272 1982 Unknown [id number] 2.16840.1.697766.3.579.2 1982 Unknown [id number] 2.16.840.1.376608.3.579.2.1286 1982 Unknown [id number] 2.16840.1.874656.3.579.2128 1982 Unknown [id number] 2.16.840.1.682323.3.579.2.1285 1982 Unknown [id number] 2.16.840.1.133836.3.579.2.1285 1982 Unknown [id number] 2.16.840.1.073288.3.579.2.1285 1982 Unknown [id number] 2.16.840.1.993589.3.579.2.1285 1982 Unknown [id number] 2.16.840.1.226329.3.579.2.1258 1982 Unknown [id number] 2.16.840.1.283259.3.579.2.1258 1982 Unknown [id number] 2.16.840.1.645532.3.579.2.1258 1982 Unknown [id number] 2.16840.1.192994.3.579.2.1258 1982 Unknown [id number] 2.16.840.1.643647.3.579.2.9 1959 Medicaid [id number] 1957 Medicare [id number] 1959 Self-pay [id number] Unknown [id number] 2.16.840.1.317210.3.579.2.531 Social History Date Type Detail Facility Start: 07-31-2010 End: 01-02-2011 Tobacco smoking status DEIS Never smoked tobacco [facility] Start: 07-31-2010 End: 01-02-2011 Tobacco use and exposure Smokeless tobacco non-user [facility] Start: 08-20-2021 End: 05-27-2024 Alcohol intake Current non-drinker of alcohol (finding) [facility] Start: 1980 Sex Assigned At Not on file [facility] Start: 08-19-2021 End: 01-07-2022 Exposure to SARS-CoV-2 (event) Not sure [facility] Tobacco smoking status No Smokin g Status Entered [facility] Start: 10-27-2022 End: 08-31-2024 Sex Assigned At Male [facility] Start: 1980 Sex Assigned At Male F [facility] Start: 10-27-2022 End: 08-31-2024 History of Social function [facility] Adult Depression Screening Assessment 3 [facility] Start: 11-09-2023 Alcoholic beverage intake Ex-drinker (finding) [facility] Start: 10-29-2022 Alcohol Comment soda/pop 2-3 c ups per day [facility] Start: 05-23-2024 Tobacco use and exposure Former smokeless tobacco user [facility] Start: 01-19-2024 End: 05-23-2024 Alcoholic beverage intake Lifetime non-drinker (finding) [facility] Start: 12-21-2014 Sex Male (finding) [facility] Medical Equipment Procedure Code Equipment Code Equipment Origin al Text Equipment Identifier Dates Generator Vns Th erapy Aspirehc Neurostimulator Epilepsy Sterile - [id number] Start: 02-04-2018 Lsd-Hg-P-Kind Im plant - [id number] Start: 04-01-2016 Comment on above: Description: GENERATOR VNS THERAPY ASPIR EHC NEUROSTIMULATOR EPILEPSY STERILE Lead Vns Therapy 2mm Silicone 43cm Neurostimulator 1 Pin Bipolar Model - [id number] Start: 09-20-2020 Generator Vns Th erapy Aspiresr Thk7mm Neurostimulator 14cc 1 Pin Lead - [id number] Start: 05-16-2019 Generator Vns Th erapy Aspiresr Thk7mm Neurostimulator 14cc 1 Pin Lead - [id number] Start: 06-28-2020 Generator Vns Th erapy Aspiresr Thk7mm Neurostimulator 14cc 1 Pin Lead - [id number] Start: 09-20-2020 Generator Vns Th erapy Aspiresr Thk7mm Neurostimulator 14cc 1 Pin Lead - [id number] Start: 08-31-2023 Generator Vns Th erapy Aspiresr Thk7mm Neurostimulator 14cc 1 Pin Lead - [id number] Start: 09-26-2024 Goals Date Patient Goal Desired Activity /State Functional Status Date Assessment Result Facility 12-01-2023 Functional Status N/A [facility] 09-26-2023 Functional status Patient at Baseline [facility] Work Phone: 09-24-2023 Functional status Functional Sta tus Comment pt not able to answer all question. Mom and sister at the bedside [facility] Work Phone: 04-22-2023 Functional Status N/A [facility] 03-04-2023 Functional Status N/A [facility] 09-19-2022 Functional Status No [facility] 09-21-2020 Are you deaf, or do you have serious difficulty hearing No 09/21/2020 11:16 AM Gris Dunne, NICHOLAS [facility] 09-21-2020 Are you blind, or do you have serious difficulty seeing, even when wearing glasses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 intractable epilepsy [facility] Diagnosis Focal epilepsy with impairment of consciousness, 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) 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, with intractable epilepsy Partial epilepsy with impairment of consciousness, intractable (HCC) Localization-related (focal) (partial) epilepsy and epileptic syndromes with complex partial seizures, with intractable epilepsy [facility] Diagnosis Partial epilepsy with impairment of consciousness, intractable (HCC) Localization-related (focal) (partial) epilepsy and epileptic syndromes with complex partial seizures, with intractable epilepsy Partial epilepsy with impairment of consciousness, intractable (HCC) Localization-related (focal) (partial) epilepsy and epileptic syndromes with complex partial seizures, with intractable epilepsy [facility] Diagnosis Preoperative testing Preoperative examination, unspecified Partial epilepsy with impairment of consciousness, intractable (HCC) Localization-related (focal) (partial) epilepsy and epileptic syndromes with complex partial seizures, with intractable epilepsy [facility] Diagnosis Onset Date Resolution Status Overdose acute Suicide attempt [facility] Work Phone: Evaluation note* Diagnosis Onset Date Resolution Status Hypoxia acute HIMA (obstructive sleep apnea) acute Overdose acute Seizure disorder acute Suicide attempt acute [facility] Work Phone: Evaluation note* Diagnosis Partial epilepsy with impairment of consciousness, intractable (HCC) Localization-related (focal) (partial) epilepsy and epileptic syndromes with complex partial seizures, with intractable epilepsy [facility] Diagnosis Chronic migraine without aura without status migrainosus, not intractable Chronic migraine without aura, without mention of intractable migraine without mention of status migrainosus [facility] Diagnosis 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- Primary Other postprocedural status Partial epilepsy with impairment of consciousness, intractable (HCC) Localization-related (focal) (partial) epilepsy and epileptic syndromes with complex partial seizures, with intractable epilepsy [facility] Diagnosis Partial epilepsy with impairment of consciousness, 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) epilepsy and epileptic syndromes with complex partial seizures, with intractable epilepsy [facility] Diagnosis Pre-op evaluation- Primary [...] with intractable epilepsy [facility] Diagnosis Pre-op evaluation- Primary [...] status migrainosus [facility]* Diagnosis Pre-op evaluation- Primary [...] status migrainosus documented in this encounter [facility] note* Diagnosis Low back pain, unspecified back pain laterality, unspecified chronicity, unspecified whether sciatica present- Primary Pain in thoracic spine Other chronic pain documented in this encounter [facility] note* Diagnosis Pre-op evaluation- Primary Preoperative [...] status migrainosus documented in this encounter [facility]* Diagnosis Pre-op evaluation- Primary Preoperative [...] without neurogenic claudication [facility] Diagnosis Pre-op evaluation- Primary [...] status migrainosus documented in this [facility]* Diagnosis Osteoarthritis of patellofemoral joints, bilateral- Primary [facility] Diagnosis Pre-op evaluation- Primary [...] postprocedural status documented [facility] this [facility]* Diagnosis Pre-op evaluation- Primary [...] postprocedural status documented [facility] this [facility]* Diagnosis Pre-op evaluation- Primary [...] neurogenic claudication [facility] this [facility]* Diagnosis Impingement of right shoulder- Primary Right shoulder pain, unspecified chronicity Primary osteoarthritis of right shoulder [facility] Diagnosis Pre-op evaluation- Primary Preoperative [...] Neck pain Cervicalgia [facility] Diagnosis Pre-op evaluation- Primary [...] Neck pain Cervicalgia documented [facility]* Diagnosis Chronic thoracic spine pain- Primary Acute exacerbation of chronic low back pain Chronic bilateral low back pain, unspecified whether sciatica present Chronic thoracic spine pain [facility] Diagnosis Pre-op evaluation- Primary [...] with intractable epilepsy [facility] Diagnosis Pre-op evaluation- Primary [...] discogenic back pain [facility] Diagnosis Pre-op evaluation- Primary [...] discogenic back pain documented [facility] Diagnosis Pre-op evaluation- Primary [...] of status migrainosus documented [facility] Diagnosis Pre-op evaluation- Primary [...] discogenic back pain [facility] Diagnosis Pre-op evaluation- Primary Preoperative [...] discogenic back pain [facility] Diagnosis Pre-op evaluation- Primary [...] discogenic back pain [facility] Diagnosis Pre-op evaluation- Primary Preoperative [...] post-operative pain- Primary [facility] Diagnosis Pre-op evaluation- Primary Preoperative [...] with intractable epilepsy [facility] Diagnosis Pre-op evaluation- Primary Preoperative examination, [...] Other postprocedural status [facility] Diagnosis Pre-op evaluation- Primary [...] with intractable epilepsy documented in this encounter [facility] course Narrative No data available for this section [facility] No data available for this section [facility]Not on filedocumented in this encounter [facility] filedocumented in this encounter [facility] No data available for this section [facility] note Author Reginald Tang [facility] September 24, 2023 9:15am Note Date/Time September 24, 2023 9:15am [facility] [address] [place] [address] Progress Note Signed Patient: Jaye Harvey MR#: [id number] : 1980 Acct:[id number] Age/Sex: 42 / M Adm Date: 4 Loc: 4C Room: [address] [place] [address] Type: ADM IN Attending Dr: Mary Calhoun [...] signed by MD Reginald Tang> 09/24/[address] [facility] Work Phone: Progress note Author Mary Calhoun [facility] September 24, 2023 12:23pm Note Date/Time September 24, 2023 12:23p m [facility] [address] [place] [address] Hospitalist Progress Note Signed Patient: Jaye Harvey MR#: [id number] : 1980 Acct:[id number] Age/Sex: 42 / M Adm Date: 4 Loc: 4C Room: [address] [place] [address] Type: ADM IN Attending Dr: Mary Calhoun [...] Lactated Ringers IV 09/25/23 02:24 150 mls/hr .[id number] RUPERTO Administration Prochlorperazine Edisylate 10 mg 09/23/23 [...] signed by Mary Calhoun MD> 09/24/[address] [facility] Work Phone: Progress note Author Mary Calhoun [facility] September 25, 2023 10:06am Note Date/Time September 25, 2023 10:02 am [facility] [address] [place] [address] Hospitalist Progress Note Signed Patient: Jaye Harvey MR#: [id number] : 1980 Acct:[id number] Age/Sex: 42 / M Adm Date: 4 Loc: Room: [address] [place] [address] Type: ADM IN Attending Dr: Mary Calhoun [...] precautions, status post [facility], [facility]23, we will restart his seizure medications Bipolar disorder DVT PPx-SCDs, Heparin CODE STATUS-full code Documented By: Mary Calhoun MD 09/25/23 1001 Signed By: <Electronically signed by Mary Calhoun MD> 09/25/[address] [facility] Work Phone: Progress note Author Scott Monterroso [facility] September 25, 2023 12:09pm Note Date/Time September 25, 2023 12:00 pm [facility] [address] [place] [address] Pulmonology Progress Note Signed Patient: Jaye Harvey MR#: [id number] : 1980 Acct:[id number] Age/Sex: 42 / M Adm Date: 4 Loc: Room: [address] [place] [address] Type: ADM IN Attending Dr: Mary Calhoun [...] signed by Scott Monterroso MD> 09/25/[address] 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 Procedures XR NECK SOFT TISSUE 2V AP/LAT RADIOLOGIC EXAMINATION NECK SOFT TISSUE Neur Epilepsy Main [address] [place] [address] Xr Imaging Referral ID Status Reason Start Date Expiration Date V isits Requested Visits Authorized [id number] Closed Auto-Generate d Referral 01/06/2022 02/05/2023 1 1 [facility] for referral (narrative)* Diagnostic Procedure Only (Routine) - Closed Specialty Diagnoses / Procedures Referred By Contac t Referred To Contact XR IMAGING Diagnoses 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 Procedures XR NECK SOFT TISSUE 2V AP/LAT RADIOLOGIC EXAMINATION NECK SOFT TISSUE Neur Epilepsy Main [address] [place] [id number] Xr Imaging Referral ID Status Reason Start Date Expiration Date V isits Requested Visits Authorized [id number] Closed Auto-Generate d Referral 01/06/2022 02/05/2023 1 1 [facility] for referral (narrative)* Diagnostic Procedure Only (Routine) - Pending Review Specialty Diagnoses / Procedures Referred By Contac t Referred To Contact XR IMAGING Diagnoses Preoperative testing Procedures XR NECK SOFT TISSUE 2V AP/LAT RADIOLOGIC EXAMINATION NECK SOFT TISSUE Aida Ervin PA-C [address] [place] [address] [place] [address] Referral ID Status Reason Start Date Expiration Date Visits Requested Visits Authorized [id number] Pending Review Auto-Generat ed Referral 08/05/2023 09/03/2024 1 1 * Consult, Test, Treat (Routine) - Authorized Specialty Diagnoses / Procedures Referred By Contac t Referred To Contact Diagnoses Preoperative testing Partial epilepsy with impairment of consciousness, intractable (HCC) Procedures REFER TO PACC - PRE ANESTHESIA CONSULTATION CLINIC OFFICE/OUTPATIENT [facility] 60 MINUTES Aida Ervin PA-C [address] [place] [address] Referral ID Status Reason Start Date Expiration Date Visits Requested Visits Authorized [id number] Authorized PCP Requested Referral 08/05/2023 08/04/2024 1 1 [facility] for referral (narrative)* Outpatient Procedure (Routine) - Closed Specialty Diagnoses / Procedures Referred By Contac t Referred To Contact [facility] Diagnoses Pre-op evaluation Procedures ECG COMPLETE ECG ROUTINE ECG W/LEAST 12 LDS W/I&R Cici Nayak PA-C [address] [address] [facility] [address] [place] [address] Referral ID Status Reason Start Date Expiration Date V isits Requested Visits Authorized [id number] Closed Auto-Generate d Referral 08/26/2023 08/25/2024 1 1 T [facility] for referral (narrative)* Diagnostic Procedure Only (Routine) - Closed Specialty Diagnoses / Procedures Referred By Contac t Referred To Contact XR IMAGING Diagnoses Preoperative testing Procedures XR NECK SOFT TISSUE 2V AP/LAT RADIOLOGIC EXAMINATION NECK SOFT TISSUE Aida Ervin PA-C [address] [place] [address] [place] [address] Referral ID Status Reason Start Date Expiration Date V isits Requested Visits Authorized [id number] Closed Auto-Generate d Referral 08/05/2023 09/03/2024 1 1 [facility] for referral (narrative)* Diagnostic Procedure Only (Routine) - Closed Specialty Diagnoses / Procedures Referred By Contac t Referred To Contact XR IMAGING Diagnoses Neck pain Procedures XR CERV OTHER 4V AP/LAT/OBL RADEX SPINE CERVICAL 4 OR 5 VIEWS 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, 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.[employer] [address] [address] [place] [address] Referral ID Status Reason Start Date Expiration Date V isits Requested Visits Authorized [id number] Closed Auto-Generate d Referral 05/27/2024 06/26/2025 1 1 [facility] for referral (narrative)* Diagnostic Procedure Only (Routine) - Closed Specialty Diagnoses / Procedures Referred By Contac t Referred To Contact XR IMAGING Diagnoses Neck pain Procedures XR CERV OTHER 4V AP/LAT/OBL RADEX SPINE CERVICAL 4 OR 5 VIEWS Jodi Denney APRN.[employer]ER [address] [place] [address] [place] [address] Referral ID Status Reason Start Date Expiration Date V isits Requested Visits Authorized [id number] Closed Auto-Generate d Referral 05/27/2024 06/26/2025 1 1 [facility] for visit Narrative* Diagnostic Procedure Only (Routine) - Closed Specialty Diagnoses / Procedures Referred By Contac t Referred To Contact XR IMAGING Diagnoses Neck pain Procedures XR CERV OTHER 4V AP/LAT/OBL RADEX SPINE CERVICAL 4 OR 5 VIEWS Jodi Denney APRN.[employer] [address] [place] [address] [place] [address] Referral ID Status Reason Start Date Expiration Date V isits Requested Visits Authorized [id number] Closed Auto-Generate d Referral 05/27/2024 06/26/2025 1 1 [facility] Summary Purpose Family History No Family History Records Found Relationship Condition Age at Onset Recorded Date/T pan father Myocardial infarction Unknown Advance Directives No Advanced Directives Records FoundDocuments on File Type Date Recorded 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 Advance Directive(s) 09/21/2020 11:55 AM Advance Directive(s) 06/20/2020 12:31 PM Advance Directive(s) 05/12/2019 11:28 AM Advance Directive(s) 05/09/2019 11:17 AM Advance Directive(s) 02/03/2018 11:54 AM Advance Directive(s) 04/08/2016 9:04 PM Advance Directive(s) 03/31/2016 8:54 AM Advance Directive(s) 03/26/2016 2:09 PM Documents on File Type Date Recorded 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 Advance Directive(s) 09/21/2020 11:55 AM [...] (HCC) Procedures CONSULT TO PSYCHOLOGY OFFICE/OUTPATIENT [facility] 60-74 MINUTES Lino South MD [address] [place] [address] Referral ID Status Reason Start Date Expiration Date Visits Requested Visits Authorized [id number] Pending Review PCP Requested Referral 08/20/2021 08/20/2022 1 1 Specialty Diagnoses / Procedures Referred By Contac t Referred To Contact Diagnoses Partial epilepsy with impairment of consciousness, intractable (HCC) Chronic nonintractable headache, unspecified headache type Procedures CONSULT TO HEADACHE CLINIC OFFICE/OUTPATIENT [facility] 60-74 MINUTES Susannah Gudino PA-C [address] [place] [address] Referral ID Status Reason Start Date Expiration Date Visits Requested Visits Authorized [id number] Authorized PCP Requested Referral 07/15/2022 07/15/2023 1 1 Specialty Diagnoses / Procedures Referred By Contac t Referred To Contact Neurosurgery Diagnoses Partial epilepsy with impairment of consciousness, intractable (HCC) Procedures CONSULT TO NEUROSURGERY OFFICE/OUTPATIENT [facility] 60 MINUTES Inez Cordero PA-C [id number] [place] [address] Referral ID Status Reason Start Date Expiration Date Visits Requested Visits Authorized [id number] Authorized PCP Requested Referral 08/03/2023 08/02/2024 1 1 Specialty Diagnoses / Procedures Referred By Contac t Referred To Contact Diagnoses Chronic migraine without aura without status migrainosus, not intractable Procedures CONSULT TO HEADACHE CLINIC OFFICE/OUTPATIENT NEW HIGH MDM 60 MINUTES Inez Cordero PA-C [address] [place] [address] Referral ID Status Reason Start Date Expiration Date Visits Requested Visits Authorized [id number] Authorized PCP Requested Referral 02/01/2024 01/31/2025 1 1 Specialty Diagnoses / Procedures Referred By Contac t Referred To Contact MR IMAGING Diagnoses Spinal stenosis of lumbar region without neurogenic claudication Procedures MRI LUMBAR SPINE WO IVCON MRI SPINAL CANAL LUMBAR W/O CONTRAST MATERIAL Krzysztof, [place] [address] [address] [place] [address] [place] [address] Referral ID Status Reason Start Date Expiration Date Visits Requested Visits Authorized [id number] New Request Auto-Generat ed Referral 04/29/2025 1 1 Referral ID Status Reason Start Date Expiration Date V isits Requested Visits Authorized [id number] Closed Auto-Generate d Referral 03/30/2024 04/29/2025 1 1 Specialty Diagnoses / Procedures Referred By Contac t Referred To Contact Rehabilitation Diagnoses Chronic bilateral low back pain, unspecified whether sciatica present Chronic thoracic spine pain Chester Maher, 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-[employer] [address] [place] [address] [id number] Referral ID Status Reason Start Date Expiration Date Visits Requested Visits Authorized [id number] Pending Review Specialty Services Required 01/19/2024 07/18/2024 [...] DATE CREATED AUTHOR AUTHOR'S ORGANIZ ATION 12/30/2022 [facility] DATE CREATED AUTHOR AUTHOR'S ORGANIZ ATION 04/09/2023 [facility] DATE CREATED AUTHOR AUTHOR'S ORGANIZ ATION 06/09/2023 [facility] DATE CREATED AUTHOR AUTHOR'S ORGANIZ ATION 07/18/2023 [facility] DATE CREATED AUTHOR AUTHOR'S ORGANIZ ATION 12/05/2023 [facility] DATE CREATED AUTHOR AUTHOR'S ORGANIZ ATION 01/20/2024 [facility] DATE CREATED AUTHOR AUTHOR'S ORGANIZ ATION 04/04/2024 [facility] DATE CREATED AUTHOR AUTHOR'S ORGANIZ ATION 09/22/2024 [facility] DATE CREATED AUTHOR AUTHOR'S ORGANIZ ATION 11/17/2024 [facility] DATE CREATED AUTHOR AUTHOR'S ORGANIZ ATION 02/19/2025 [facility] DATE CREATED AUTHOR AUTHOR'S ORGANIZ ATION 02/24/2025 [facility] EP[employer] Source Comments (unrecognize d section and content) In the event this informatio n is protected by the Federal Confidentiality of Alcohol and Drug Abuse Patient Records regulations: The Federal rules restrict any use of the information to criminally investigate or prosecute any alcohol or drug abuse patient.[facility] the event this information is protected by the Federal Confidentiality of Alcohol and Drug Abuse Patient Records regulations: The Federal rules restrict any use of the information to criminally investigate or prosecute any alcohol or drug abuse patient.[facility] HospitalIn the event this information is protected by the Federal Confidentiality of Alcohol and Drug Abuse Patient Records regulations: The Federal rules restrict any use of the information to criminally investigate or prosecute any alcohol or drug abuse patient.[facility] HospitalIn the event this information is protected by the Federal Confidentiality of Alcohol and Drug Abuse Patient Records regulations: The Federal rules restrict any use of the information to criminally investigate or prosecute any alcohol or drug abuse patient.[facility] HospitalIn the event this information is protected by the Federal Confidentiality of Alcohol and Drug Abuse Patient Records regulations: The Federal rules restrict any use of the information to criminally investigate or prosecute any alcohol or drug abuse patient.[facility] HospitalIn the event this information is protected by the Federal Confidentiality of Alcohol and Drug Abuse Patient Records regulations: The Federal rules restrict any use of the information to criminally investigate or prosecute any alcohol or drug abuse patient.[facility] HospitalIn the event this information is protected by the Federal Confidentiality of Alcohol and Drug Abuse Patient Records regulations: The Federal rules restrict any use of the information to criminally investigate or prosecute any alcohol or drug abuse patient.[facility] HospitalIn the event this information is protected by the Federal Confidentiality of Alcohol and Drug Abuse Patient Records regulations: The Federal rules restrict any use of the information to criminally investigate or prosecute any alcohol or drug abuse patient.[facility] HospitalIn the event this information is protected by the Federal Confidentiality of Alcohol and Drug Abuse Patient Records regulations: The Federal rules restrict any use of the information to criminally investigate or prosecute any alcohol or drug abuse patient.[facility] HospitalIn the event this information is protected by the Federal Confidentiality of Alcohol and Drug Abuse Patient Records regulations: The Federal rules restrict any use of the information to criminally investigate or prosecute any alcohol or drug abuse patient.[facility] HospitalIn the event this information is protected by the Federal Confidentiality of Alcohol and Drug Abuse Patient Records regulations: The Federal rules restrict any use of the information to criminally investigate or prosecute any alcohol or drug abuse patient.[facility] HospitalIn the event this information is protected by the Federal Confidentiality of Alcohol and Drug Abuse Patient Records regulations: The Federal rules restrict any use of the information to criminally investigate or prosecute any alcohol or drug abuse patient.[facility] HospitalIn the event this information is protected by the Federal Confidentiality of Alcohol and Drug Abuse Patient Records regulations: The Federal rules restrict any use of the information to criminally investigate or prosecute any alcohol or drug abuse patient.[facility] HospitalIn the event this information is protected by the Federal Confidentiality of Alcohol and Drug Abuse Patient Records regulations: The Federal rules restrict any use of the information to criminally investigate or prosecute any alcohol or drug abuse patient.[facility] HospitalIn the event this information is protected by the Federal Confidentiality of Alcohol and Drug Abuse Patient Records regulations: The Federal rules restrict any use of the information to criminally investigate or prosecute any alcohol or drug abuse patient.[facility] HospitalIn the event this information is protected by the Federal Confidentiality of Alcohol and Drug Abuse Patient Records regulations: The Federal rules restrict any use of the information to criminally investigate or prosecute any alcohol or drug abuse patient.[facility] HospitalIn the event this information is protected by the Federal Confidentiality of Alcohol and Drug Abuse Patient Records regulations: The Federal rules restrict any use of the information to criminally investigate or prosecute any alcohol or drug abuse patient.[facility] HospitalIn the event this information is protected by the Federal Confidentiality of Alcohol and Drug Abuse Patient Records regulations: The Federal rules restrict any use of the information to criminally investigate or prosecute any alcohol or drug abuse patient.[facility] HospitalIn the event this information is protected by the Federal Confidentiality of Alcohol and Drug Abuse Patient Records regulations: The Federal rules restrict any use of the information to criminally investigate or prosecute any alcohol or drug abuse patient.[facility] HospitalIn the event this information is protected by the Federal Confidentiality of Alcohol and Drug Abuse Patient Records regulations: The Federal rules restrict any use of the information to criminally investigate or prosecute any alcohol or drug abuse patient.[facility] HospitalIn the event this information is protected by the Federal Confidentiality of Alcohol and Drug Abuse Patient Records regulations: The Federal rules restrict any use of the information to criminally investigate or prosecute any alcohol or drug abuse patient.[facility] HospitalIn the event this information is protected by the Federal Confidentiality of Alcohol and Drug Abuse Patient Records regulations: The Federal rules restrict any use of the information to criminally investigate or prosecute any alcohol or drug abuse patient.[facility] HospitalIn the event this information is protected by the Federal Confidentiality of Alcohol and Drug Abuse Patient Records regulations: The Federal rules restrict any use of the information to criminally investigate or prosecute any alcohol or drug abuse patient.[facility] HospitalIn the event this information is protected by the Federal Confidentiality of Alcohol and Drug Abuse Patient Records regulations: The Federal rules restrict any use of the information to criminally investigate or prosecute any alcohol or drug abuse patient.[facility] HospitalIn the event this information is protected by the Federal Confidentiality of Alcohol and Drug Abuse Patient Records regulations: The Federal rules restrict any use of the information to criminally investigate or prosecute any alcohol or drug abuse patient.[facility] HospitalIn the event this information is protected by the Federal Confidentiality of Alcohol and Drug Abuse Patient Records regulations: The Federal rules restrict any use of the information to criminally investigate or prosecute any alcohol or drug abuse patient.[facility] HospitalIn the event this information is protected by the Federal Confidentiality of Alcohol and Drug Abuse Patient Records regulations: The Federal rules restrict any use of the information to criminally investigate or prosecute any alcohol or drug abuse patient.[facility] HospitalIn the event this information is protected by the Federal Confidentiality of Alcohol and Drug Abuse Patient Records regulations: The Federal rules restrict any use of the information to criminally investigate or prosecute any alcohol or drug abuse patient.[facility] HospitalIn the event this information is protected by the Federal Confidentiality of Alcohol and Drug Abuse Patient Records regulations: The Federal rules restrict any use of the information to criminally investigate or prosecute any alcohol or drug abuse patient.[facility] HospitalIn the event this information is protected by the Federal Confidentiality of Alcohol and Drug Abuse Patient Records regulations: The Federal rules restrict any use of the information to criminally investigate or prosecute any alcohol or drug abuse patient.[facility] HospitalIn the event this information is protected by the Federal Confidentiality of Alcohol and Drug Abuse Patient Records regulations: The Federal rules restrict any use of the information to criminally investigate or prosecute any alcohol or drug abuse patient.[facility] HospitalIn the event this information is protected by the Federal Confidentiality of Alcohol and Drug Abuse Patient Records regulations: The Federal rules restrict any use of the information to criminally investigate or prosecute any alcohol or drug abuse patient.[facility] HospitalIn the event this information is protected by the Federal Confidentiality of Alcohol and Drug Abuse Patient Records regulations: The Federal rules restrict any use of the information to criminally investigate or prosecute any alcohol or drug abuse patient.[facility] HospitalIn the event this information is protected by the Federal Confidentiality of Alcohol and Drug Abuse Patient Records regulations: The Federal rules restrict any use of the information to criminally investigate or prosecute any alcohol or drug abuse patient.[facility] HospitalIn the event this information is protected by the Federal Confidentiality of Alcohol and Drug Abuse Patient Records regulations: The Federal rules restrict any use of the information to criminally investigate or prosecute any alcohol or drug abuse patient.[facility] HospitalIn the event this information is protected by the Federal Confidentiality of Alcohol and Drug Abuse Patient Records regulations: The Federal rules restrict any use of the information to criminally investigate or prosecute any alcohol or drug abuse patient.[facility] HospitalIn the event this information is protected by the Federal Confidentiality of Alcohol and Drug Abuse Patient Records regulations: The Federal rules restrict any use of the information to criminally investigate or prosecute any alcohol or drug abuse patient.[facility] HospitalIn the event this information is protected by the Federal Confidentiality of Alcohol and Drug Abuse Patient Records regulations: The Federal rules restrict any use of the information to criminally investigate or prosecute any alcohol or drug abuse patient.[facility] HospitalIn the event this information is protected by the Federal Confidentiality of Alcohol and Drug Abuse Patient Records regulations: The Federal rules restrict any use of the information to criminally investigate or prosecute any alcohol or drug abuse patient.[facility] HospitalIn the event this information is protected by the Federal Confidentiality of Alcohol and Drug Abuse Patient Records regulations: The Federal rules restrict any use of the information to criminally investigate or prosecute any alcohol or drug abuse patient.[facility] HospitalIn the event this information is protected by the Federal Confidentiality of Alcohol and Drug Abuse Patient Records regulations: The Federal rules restrict any use of the information to criminally investigate or prosecute any alcohol or drug abuse patient.[facility] HospitalIn the event this information is protected by the Federal Confidentiality of Alcohol and Drug Abuse Patient Records regulations: The Federal rules restrict any use of the information to criminally investigate or prosecute any alcohol or drug abuse patient.[facility] HospitalIn the event this information is protected by the Federal Confidentiality of Alcohol and Drug Abuse Patient Records regulations: The Federal rules restrict any use of the information to criminally investigate or prosecute any alcohol or drug abuse patient.[facility] HospitalIn the event this information is protected by the Federal Confidentiality of Alcohol and Drug Abuse Patient Records regulations: The Federal rules restrict any use of the information to criminally investigate or prosecute any alcohol or drug abuse patient.[facility] HospitalIn the event this information is protected by the Federal Confidentiality of Alcohol and Drug Abuse Patient Records regulations: The Federal rules restrict any use of the information to criminally investigate or prosecute any alcohol or drug abuse patient.[facility] HospitalIn the event this information is protected by the Federal Confidentiality of Alcohol and Drug Abuse Patient Records regulations: The Federal rules restrict any use of the information to criminally investigate or prosecute any alcohol or drug abuse patient.[facility] HospitalIn the event this information is protected by the Federal Confidentiality of Alcohol and Drug Abuse Patient Records regulations: The Federal rules restrict any use of the information to criminally investigate or prosecute any alcohol or drug abuse patient.[facility] HospitalIn the event this information is protected by the Federal Confidentiality of Alcohol and Drug Abuse Patient Records regulations: The Federal rules restrict any use of the information to criminally investigate or prosecute any alcohol or drug abuse patient.[facility] HospitalIn the event this information is protected by the Federal Confidentiality of Alcohol and Drug Abuse Patient Records regulations: The Federal rules restrict any use of the information to criminally investigate or prosecute any alcohol or drug abuse patient.[facility] HospitalIn the event this information is protected by the Federal Confidentiality of Alcohol and Drug Abuse Patient Records regulations: The Federal rules restrict any use of the information to criminally investigate or prosecute any alcohol or drug abuse patient.[facility] HospitalIn the event this information is protected by the Federal Confidentiality of Alcohol and Drug Abuse Patient Records regulations: The Federal rules restrict any use of the information to criminally investigate or prosecute any alcohol or drug abuse patient.[facility] HospitalIn the event this information is protected by the Federal Confidentiality of Alcohol and Drug Abuse Patient Records regulations: The Federal rules restrict any use of the information to criminally investigate or prosecute any alcohol or drug abuse patient.[facility] HospitalIn the event this information is protected by the Federal Confidentiality of Alcohol and Drug Abuse Patient Records regulations: The Federal rules restrict any use of the information to criminally investigate or prosecute any alcohol or drug abuse patient.[facility] HospitalIn the event this information is protected by the Federal Confidentiality of Alcohol and Drug Abuse Patient Records regulations: The Federal rules restrict any use of the information to criminally investigate or prosecute any alcohol or drug abuse patient.[facility] HospitalIn the event this information is protected by the Federal Confidentiality of Alcohol and Drug Abuse Patient Records regulations: The Federal rules restrict any use of the information to criminally investigate or prosecute any alcohol or drug abuse patient.[facility] HospitalIn the event this information is protected by the Federal Confidentiality of Alcohol and Drug Abuse Patient Records regulations: The Federal rules restrict any use of the information to criminally investigate or prosecute any alcohol or drug abuse patient.[facility] HospitalIn the event this information is protected by the Federal Confidentiality of Alcohol and Drug Abuse Patient Records regulations: The Federal rules restrict any use of the information to criminally investigate or prosecute any alcohol or drug abuse patient.[facility] HospitalIn the event this information is protected by the Federal Confidentiality of Alcohol and Drug Abuse Patient Records regulations: The Federal rules restrict any use of the information to criminally investigate or prosecute any alcohol or drug abuse patient.[facility] HospitalIn the event this information is protected by the Federal Confidentiality of Alcohol and Drug Abuse Patient Records regulations: The Federal rules restrict any use of the information to criminally investigate or prosecute any alcohol or drug abuse patient.[facility] HospitalIn the event this information is protected by the Federal Confidentiality of Alcohol and Drug Abuse Patient Records regulations: The Federal rules restrict any use of the information to criminally investigate or prosecute any alcohol or drug abuse patient.[facility] HospitalIn the event this information is protected by the Federal Confidentiality of Alcohol and Drug Abuse Patient Records regulations: The Federal rules restrict any use of the information to criminally investigate or prosecute any alcohol or drug abuse patient.[facility] HospitalIn the event this information is protected by the Federal Confidentiality of Alcohol and Drug Abuse Patient Records regulations: The Federal rules restrict any use of the information to criminally investigate or prosecute any alcohol or drug abuse patient.[facility] HospitalIn the event this information is protected by the Federal Confidentiality of Alcohol and Drug Abuse Patient Records regulations: The Federal rules restrict any use of the information to criminally investigate or prosecute any alcohol or drug abuse patient.[facility] HospitalIn the event this information is protected by the Federal Confidentiality of Alcohol and Drug Abuse Patient Records regulations: The Federal rules restrict any use of the information to criminally investigate or prosecute any alcohol or drug abuse patient.[facility] HospitalIn the event this information is protected by the Federal Confidentiality of Alcohol and Drug Abuse Patient Records regulations: The Federal rules restrict any use of the information to criminally investigate or prosecute any alcohol or drug abuse patient.[facility] HospitalIn the event this information is protected by the Federal Confidentiality of Alcohol and Drug Abuse Patient Records regulations: The Federal rules restrict any use of the information to criminally investigate or prosecute any alcohol or drug abuse patient.[facility] HospitalIn the event this information is protected by the Federal Confidentiality of Alcohol and Drug Abuse Patient Records regulations: The Federal rules restrict any use of the information to criminally investigate or prosecute any alcohol or drug abuse patient.[facility] HospitalIn the event this information is protected by the Federal Confidentiality of Alcohol and Drug Abuse Patient Records regulations: The Federal rules restrict any use of the information to criminally investigate or prosecute any alcohol or drug abuse patient.[facility] HospitalIn the event this information is protected by the Federal Confidentiality of Alcohol and Drug Abuse Patient Records regulations: The Federal rules restrict any use of the information to criminally investigate or prosecute any alcohol or drug abuse patient.[facility] HospitalIn the event this information is protected by the Federal Confidentiality of Alcohol and Drug Abuse Patient Records regulations: The Federal rules restrict any use of the information to criminally investigate or prosecute any alcohol or drug abuse patient.[facility] HospitalIn the event this information is protected by the Federal Confidentiality of Alcohol and Drug Abuse Patient Records regulations: The Federal rules restrict any use of the information to criminally investigate or prosecute any alcohol or drug abuse patient.[facility] [facility] the event this information is protected by the Federal Confidentiality of Alcohol and Drug Abuse Patient Records regulations: The Federal rules restrict any use of the information to criminally investigate or prosecute any alcohol or drug abuse patient.[facility]In the event this information is protected by the Federal Confidentiality of Alcohol and Drug Abuse Patient Records regulations: The Federal rules restrict any use of the information to criminally investigate or prosecute any alcohol or drug abuse patient.[facility]In the event this information is protected by the Federal Confidentiality of Alcohol and Drug Abuse Patient Records regulations: The Federal rules restrict any use of the information to criminally investigate or prosecute any alcohol or drug abuse patient.[facility]In the event this information is protected by the Federal Confidentiality of Alcohol and Drug Abuse Patient Records regulations: The Federal rules restrict any use of the information to criminally investigate or prosecute any alcohol or drug abuse patient.[facility]In the event this information is protected by the Federal Confidentiality of Alcohol and Drug Abuse Patient Records regulations: The Federal rules restrict any use of the information to criminally investigate or prosecute any alcohol or drug abuse patient.[facility]In the event this information is protected by the Federal Confidentiality of Alcohol and Drug Abuse Patient Records regulations: The Federal rules restrict any use of the information to criminally investigate or prosecute any alcohol or drug abuse patient.[facility]In the event this information is protected by the Federal Confidentiality of Alcohol and Drug Abuse Patient Records regulations: The Federal rules restrict any use of the information to criminally investigate or prosecute any alcohol or drug abuse patient.[facility]In the event this information is protected by the Federal Confidentiality of Alcohol and Drug Abuse Patient Records regulations: The Federal rules restrict any use of the information to criminally investigate or prosecute any alcohol or drug abuse patient.[facility]In the event this information is protected by the Federal Confidentiality of Alcohol and Drug Abuse Patient Records regulations: The Federal rules restrict any use of the information to criminally investigate or prosecute any alcohol or drug abuse patient.[facility]In the event this information is protected by the Federal Confidentiality of Alcohol and Drug Abuse Patient Records regulations: The Federal rules restrict any use of the information to criminally investigate or prosecute any alcohol or drug abuse patient.[facility] HospitalIn the event this information is protected by the Federal Confidentiality of Alcohol and Drug Abuse Patient Records regulations: The Federal rules restrict any use of the information to criminally investigate or prosecute any alcohol or drug abuse patient.[facility] HospitalIn the event this information is protected by the Federal Confidentiality of Alcohol and Drug Abuse Patient Records regulations: The Federal rules restrict any use of the information to criminally investigate or prosecute any alcohol or drug abuse patient.[facility] HospitalIn the event this information is protected by the Federal Confidentiality of Alcohol and Drug Abuse Patient Records regulations: The Federal rules restrict any use of the information to criminally investigate or prosecute any alcohol or drug abuse patient.[facility] HospitalIn the event this information is protected by the Federal Confidentiality of Alcohol and Drug Abuse Patient Records regulations: The Federal rules restrict any use of the information to criminally investigate or prosecute any alcohol or drug abuse patient.[facility] HospitalIn the event this information is protected by the Federal Confidentiality of Alcohol and Drug Abuse Patient Records regulations: The Federal rules restrict any use of the information to criminally investigate or prosecute any alcohol or drug abuse patient.[facility] HospitalIn the event this information is protected by the Federal Confidentiality of Alcohol and Drug Abuse Patient Records regulations: The Federal rules restrict any use of the information to criminally investigate or prosecute any alcohol or drug abuse patient.[facility] HospitalIn the event this information is protected by the Federal Confidentiality of Alcohol and Drug Abuse Patient Records regulations: The Federal rules restrict any use of the information to criminally investigate or prosecute any alcohol or drug abuse patient.[facility] HospitalIn the event this information is protected by the Federal Confidentiality of Alcohol and Drug Abuse Patient Records regulations: The Federal rules restrict any use of the information to criminally investigate or prosecute any alcohol or drug abuse patient.[facility] HospitalIn the event this information is protected by the Federal Confidentiality of Alcohol and Drug Abuse Patient Records regulations: The Federal rules restrict any use of the information to criminally investigate or prosecute any alcohol or drug abuse patient.[facility] HospitalIn the event this information is protected by the Federal Confidentiality of Alcohol and Drug Abuse Patient Records regulations: The Federal rules restrict any use of the information to criminally investigate or prosecute any alcohol or drug abuse patient.[facility] HospitalIn the event this information is protected by the Federal Confidentiality of Alcohol and Drug Abuse Patient Records regulations: The Federal rules restrict any use of the information to criminally investigate or prosecute any alcohol or drug abuse patient.[facility] HospitalIn the event this information is protected by the Federal Confidentiality of Alcohol and Drug Abuse Patient Records regulations: The Federal rules restrict any use of the information to criminally investigate or prosecute any alcohol or drug abuse patient.[facility]In the event this information is protected by the Federal Confidentiality of Alcohol and Drug Abuse Patient Records regulations: The Federal rules restrict any use of the information to criminally investigate or prosecute any alcohol or drug abuse patient.[facility] HospitalIn the event this information is protected by the Federal Confidentiality of Alcohol and Drug Abuse Patient Records regulations: The Federal rules restrict any use of the information to criminally investigate or prosecute any alcohol or drug abuse patient.[facility] HospitalIn the event this information is protected by the Federal Confidentiality of Alcohol and Drug Abuse Patient Records regulations: The Federal rules restrict any use of the information to criminally investigate or prosecute any alcohol or drug abuse patient.[facility] HospitalIn the event this information is protected by the Federal Confidentiality of Alcohol and Drug Abuse Patient Records regulations: The Federal rules restrict any use of the information to criminally investigate or prosecute any alcohol or drug abuse patient.[facility] HospitalIn the event this information is protected by the Federal Confidentiality of Alcohol and Drug Abuse Patient Records regulations: The Federal rules restrict any use of the information to criminally investigate or prosecute any alcohol or drug abuse patient.[facility] HospitalIn the event this information is protected by the Federal Confidentiality of Alcohol and Drug Abuse Patient Records regulations: The Federal rules restrict any use of the information to criminally investigate or prosecute any alcohol or drug abuse patient.[facility] HospitalIn the event this information is protected by the Federal Confidentiality of Alcohol and Drug Abuse Patient Records regulations: The Federal rules restrict any use of the information to criminally investigate or prosecute any alcohol or drug abuse patient.[facility]In the event this information is protected by the Federal Confidentiality of Alcohol and Drug Abuse Patient Records regulations: The Federal rules restrict any use of the information to criminally investigate or prosecute any alcohol or drug abuse patient.[facility]In the event this information is protected by the Federal Confidentiality of Alcohol and Drug Abuse Patient Records regulations: The Federal rules restrict any use of the information to criminally investigate or prosecute any alcohol or drug abuse patient.[facility] HospitalIn the event this information is protected by the Federal Confidentiality of Alcohol and Drug Abuse Patient Records regulations: The Federal rules restrict any use of the information to criminally investigate or prosecute any alcohol or drug abuse patient.[facility] HospitalIn the event this information is protected by the Federal Confidentiality of Alcohol and Drug Abuse Patient Records regulations: The Federal rules restrict any use of the information to criminally investigate or prosecute any alcohol or drug abuse patient.[facility] HospitalIn the event this information is protected by the Federal Confidentiality of Alcohol and Drug Abuse Patient Records regulations: The Federal rules restrict any use of the information to criminally investigate or prosecute any alcohol or drug abuse patient.[facility]In the event this information is protected by the Federal Confidentiality of Alcohol and Drug Abuse Patient Records regulations: The Federal rules restrict any use of the information to criminally investigate or prosecute any alcohol or drug abuse patient.[facility] HospitalIn the event this information is protected by the Federal Confidentiality of Alcohol and Drug Abuse Patient Records regulations: The Federal rules restrict any use of the information to criminally investigate or prosecute any alcohol or drug abuse patient.[facility] HospitalIn the event this information is protected by the Federal Confidentiality of Alcohol and Drug Abuse Patient Records regulations: The Federal rules restrict any use of the information to criminally investigate or prosecute any alcohol or drug abuse patient.[facility]In the event this information is protected by the Federal Confidentiality of Alcohol and Drug Abuse Patient Records regulations: The Federal rules restrict any use of the information to criminally investigate or prosecute any alcohol or drug abuse patient.[facility]In the event this information is protected by the Federal Confidentiality of Alcohol and Drug Abuse Patient Records regulations: The Federal rules restrict any use of the information to criminally investigate or prosecute any alcohol or drug abuse patient.[facility]In the event this information is protected by the Federal Confidentiality of Alcohol and Drug Abuse Patient Records regulations: The Federal rules restrict any use of the information to criminally investigate or prosecute any alcohol or drug abuse patient.[facility] HospitalIn the event this information is protected by the Federal Confidentiality of Alcohol and Drug Abuse Patient Records regulations: The Federal rules restrict any use of the information to criminally investigate or prosecute any alcohol or drug abuse patient.[facility]In the event this information is protected by the Federal Confidentiality of Alcohol and Drug Abuse Patient Records regulations: The Federal rules restrict any use of the information to criminally investigate or prosecute any alcohol or drug abuse patient.[facility]In the event this information is protected by the Federal Confidentiality of Alcohol and Drug Abuse Patient Records regulations: The Federal rules restrict any use of the information to criminally investigate or prosecute any alcohol or drug abuse patient.[facility]In the event this information is protected by the Federal Confidentiality of Alcohol and Drug Abuse Patient Records regulations: The Federal rules restrict any use of the information to criminally investigate or prosecute any alcohol or drug abuse patient.[facility]In the event this information is protected by the Federal Confidentiality of Alcohol and Drug Abuse Patient Records regulations: The Federal rules restrict any use of the information to criminally investigate or prosecute any alcohol or drug abuse patient.[facility]In the event this information is protected by the Federal Confidentiality of Alcohol and Drug Abuse Patient Records regulations: The Federal rules restrict any use of the information to criminally investigate or prosecute any alcohol or drug abuse patient.[facility]In the event this information is protected by the Federal Confidentiality of Alcohol and Drug Abuse Patient Records regulations: The Federal rules restrict any use of the information to criminally investigate or prosecute any alcohol or drug abuse patient.[facility]In the event this information is protected by the Federal Confidentiality of Alcohol and Drug Abuse Patient Records regulations: The Federal rules restrict any use of the information to criminally investigate or prosecute any alcohol or drug abuse patient.[facility]In the event this information is protected by the Federal Confidentiality of Alcohol and Drug Abuse Patient Records regulations: The Federal rules restrict any use of the information to criminally investigate or prosecute any alcohol or drug abuse patient.[facility]In the event this information is protected by the Federal Confidentiality of Alcohol and Drug Abuse Patient Records regulations: The Federal rules restrict any use of the information to criminally investigate or prosecute any alcohol or drug abuse patient.[facility] Reason for Visit (unrecogniz ed section [...] NECK SOFT TISSUE Neur Epilepsy Main [address] [id number] Xr Imaging Referral ID Status Reason Start Date Expiration Date V isits Requested Visits Authorized [id number] Closed Auto-Generate d Referral 01/06/2022 02/05/2023 1 [...] H&P Procedures VIDEO PSYC/PSYL EST Michael Cordoba APRN.[employer] [address] [place] [address] Josi Queen PA-C [address] [place] [address] Referral ID Status Reason Start Date Expiration Date V isits Requested Visits Authorized [id number] Authorized 05/12/2023 05/17/2024 99 99 Specialty Diagnoses / Procedures Referred By Contac t Referred To Contact ADULT PSYCHIATRY Diagnoses NEW DBT IOP Procedures VIDEO PSYC/PSYL GRP (ZOOM) Mya Tena, 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.[employer] [address] [place] [address] Psyc Adult [facility] [address] [place] [address] Referral ID Status Reason Start Date Expiration Date V isits Requested Visits Authorized [id number] Authorized 05/13/2023 05/17/2024 99 99 Reason Comments Medication Authorization Reason Comments Epilepsy Follow Up Reason Comments Pulp Tester - Other Reason Comments Schedule Surgery VNS [...] MDM 60 MINUTES Inez Cordero PA-C [address] [place] [address] Referral ID Status Reason Start Date Expiration Date V isits Requested Visits Authorized [id number] Closed PCP Requested Referral 08/03/2023 08/02/2024 1 1 Reason Comments Radio Gen A21 Specialty Diagnoses / Procedures Referred By Contac t Referred To Contact XR IMAGING Diagnoses Preoperative testing Procedures XR NECK SOFT TISSUE 2V AP/LAT RADIOLOGIC EXAMINATION NECK SOFT TISSUE Aida Ervin PA-C [address] [place] [address] [place] [id number] Referral ID Status Reason Start Date Expiration Date V isits Requested Visits Authorized [id number] Closed Auto-Generate d Referral 08/05/2023 09/03/2024 1 [...] chronic pain Pain in thoracic spine Procedures TX PHYSICAL THERAPY EVALUATION LOW COMPLEX 20 MINS Chester Maher MD [address] [place] [address] Shawnee Jonas PT Referral ID Status Reason Start Date Expiration Date V isits Requested Visits Authorized [id number] Authorized 02/01/2024 07/30/2024 30 30 Reason Onset [...] HIGH MDM 60 MINUTES Sobeida Galvan MD [address] [place] [address] Anesthesia [facility] [address] [place] [address] Referral ID Status Reason Start Date Expiration Date V isits Requested Visits Authorized [id number] Closed PCP Requested Referral 02/29/2024 02/28/2025 1 [...] on. He said w/ [facility] he'll wait till post Eval. Reason Comments Pain Reason Comments Established Patient VNS Visit Reason Comments VNS Visit Specialty Diagnoses / Procedures Referred By Contac t Referred To Contact MR IMAGING Diagnoses Spinal stenosis of lumbar region without neurogenic claudication Procedures MRI LUMBAR SPINE WO IVCON MRI SPINAL CANAL LUMBAR W/O CONTRAST MATERIAL Krzysztof, [place] [address] DANIELKENAN DOMINICKNina [address] [place] [id number] [place] [id number] Referral ID Status Reason Start Date Expiration Date V isits Requested Visits Authorized [id number] Closed Auto-Generate d Referral 03/30/2024 04/29/2025 1 [...] of chronic low back pain Dania Ervin, AMEENA-[employer] [address] [place] [address] [facility] [address] [place] [address] Referral ID Status Reason Start Date Expiration Date Visits Requested Visits Authorized [id number] Pending Review Specialty Services Required 12/28/2023 12/27/2024 [...] Attending Provider Active Start: September 23, 2023 Technical Coordinator Relationship Specialty Start Date End Date Uriel Nunez MD PCP - General Family Practice 01/02/11 Technical Coordinator Relationship Specialty Start Date End Date Uriel Nunez MD PCP - General Family Practice 01/02/11 Technical Coordinator Relationship Specialty Start Date End Date Uriel Nunez MD PCP - General Family Practice 01/02/11 Technical Coordinator Relationship Specialty Start Date End Date Uriel Nunez MD PCP - General Family Practice 01/02/11 Technical Coordinator Relationship Specialty Start Date End Date Uriel Nunez MD PCP - General Family Practice 01/02/11 Technical Coordinator Relationship Specialty Start Date End Date Uriel Nunez MD PCP - General Family Practice 01/02/11 Technical Coordinator Relationship Specialty Start Date End Date Uriel Nunez MD PCP - General Family Practice 01/02/11 Technical Coordinator Relationship Specialty Start Date End Date Uriel Nunez MD PCP - General Family Practice 01/02/11 Technical Coordinator Relationship Specialty Start Date End Date Uriel Nunez MD PCP - General Family Practice 01/02/11 Technical Coordinator Relationship Specialty Start Date End Date Uriel Nunez MD PCP - General Family Medicine 01/02/11 Technical Coordinator Relationship Specialty Start Date End Date Uriel Nunez MD PCP - General Family Medicine 01/02/11 Technical Coordinator Relationship Specialty Start Date End Date Uriel Nunez MD PCP - General Family Medicine 01/02/11 Technical Coordinator Relationship Specialty Start Date End Date Uriel Nunez MD PCP - General Family Medicine 01/02/11 Technical Coordinator Relationship Specialty Start Date End Date Uriel Nunez MD PCP - General Family Medicine 01/02/11 Technical Coordinator Relationship Specialty Start Date End Date Uriel Nunez MD PCP - General Family Medicine 01/02/11 Technical Coordinator Relationship Specialty Start Date End Date Uriel Nunez MD PCP - General Family Medicine 01/02/11 Team Status: Inactive Member Role Status Dates Uriel Nunez MD Primary Care Provider Active Davis Mir DO Emergency Provider Active Technical Coordinator Relationship Specialty Start Date End Date Uriel Nunez MD PCP - General Family Medicine 01/02/11 Technical Coordinator Relationship Specialty Start Date End Date Uriel Nunez MD PCP - General Family Medicine 01/02/11 Technical Coordinator Relationship Specialty Start Date End Date Uriel Nunez MD PCP - General Family Medicine 01/02/11 Technical Coordinator Relationship Specialty Start Date End Date Uriel Nunez MD PCP - General Family Medicine 01/02/11 Technical Coordinator Relationship Specialty Start Date End Date Uriel Nunez MD PCP - General Family Medicine 01/02/11 Technical Coordinator Relationship Specialty Start Date End Date Uriel Nunez MD PCP - General Family Medicine 01/02/11 Technical Coordinator Relationship Specialty Start Date End Date Uriel Nunez MD PCP - General Family Medicine 01/02/11 Technical Coordinator Relationship Specialty Start Date End Date Uriel Nunez MD PCP - General Family Medicine 01/02/11 Technical Coordinator Relationship Specialty Start Date End Date Uriel Nunez MD PCP - General Family Medicine 01/02/11 Technical Coordinator Relationship Specialty Start Date End Date Uriel Nunez MD PCP - General Family Medicine 01/02/11 Technical Coordinator Relationship Specialty Start Date End Date Uriel Nunez MD PCP - General Family Medicine 01/02/11 Technical Coordinator Relationship Specialty Start Date End Date Uriel Nunez MD PCP - General Family Medicine 01/02/11 Technical Coordinator Relationship Specialty Start Date End Date Uriel Nunez MD PCP - General Family Medicine 01/02/11 Technical Coordinator Relationship Specialty Start Date End Date Uriel Nunez MD PCP - General Family Medicine 01/02/11 Technical Coordinator Relationship Specialty Start Date End Date Uriel Nunez MD PCP - General Family Medicine 01/02/11 Technical Coordinator Relationship Specialty Start Date End Date Uriel Nunez MD PCP - General Family Medicine 01/02/11 Technical Coordinator Relationship Specialty Start Date End Date Uriel Nunez MD PCP - General Family Medicine 01/02/11 Technical Coordinator Relationship Specialty Start Date End Date Uriel Nunez MD PCP - General Family Medicine 01/02/11 Technical Coordinator Relationship Specialty Start Date End Date Uriel Nunez MD PCP - General Family Medicine 01/02/11 Technical Coordinator Relationship Specialty Start Date End Date Uriel Nunez MD PCP - General Family Medicine 01/02/11 Technical Coordinator Relationship Specialty Start Date End Date Uriel Nunez MD PCP - General Family Medicine 01/02/11 Technical Coordinator Relationship Specialty Start Date End Date Uriel Nunez MD PCP - General Family Medicine 01/02/11 Technical Coordinator Relationship Specialty Start Date End Date Uriel Nunez MD PCP - General Family Medicine 01/02/11 Technical Coordinator Relationship Specialty Start Date End Date Uriel Nunez MD PCP - General Family Medicine 01/02/11 Technical Coordinator Relationship Specialty Start Date End Date Uriel Nunez MD PCP - General Family Medicine 01/02/11 Technical Coordinator Relationship Specialty Start Date End Date Uriel Nunez MD PCP - General Family Medicine 01/02/11 Technical Coordinator Relationship Specialty Start Date End Date Uriel Nunez MD PCP - General Family Medicine 01/02/11 Technical Coordinator Relationship Specialty Start Date End Date Uriel Nunez MD PCP - General Family Medicine 01/02/11 Technical Coordinator Relationship Specialty Start Date End Date Uriel Nunez MD PCP - General Family Medicine 01/02/11 Technical Coordinator Relationship Specialty Start Date End Date Uriel [...] 2023 End: September 26, 2023 Heide Alston 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 [facility] [facility] Other Provider Active Start: September 23, [...] S tart: September 24, 2023 Heide Alston 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 [facility]- Other Provider Active Start: September 24, [...] tart: September 25, 2023 Heide Alston , 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 ACNP- Other Provider Active Start: September 25, 2023 Reginald Tang MD Other Provider Active Start: September 25, 2023 John Rodriguez MD Other Provider Active St art: September 25, 2023 Martin Dorado MD Other Provider Active Start: M ay 2023 Quitnin Holt , DO Other Provider Active Start: [...] Other Provider Active Start: September 25, 2023 Technical Coordinator Relationship Specialty Start Date End Date Uriel Nunez MD PCP - General Family Medicine 01/02/11 Technical Coordinator Relationship Specialty Start Date End Date Uriel Nunez MD PCP - General Family Medicine 01/02/11 Technical Coordinator Relationship Specialty Start Date End Date Uriel Nunez MD PCP - General Family Medicine 01/02/11 Technical Coordinator Relationship Specialty Start Date End Date Uriel Nunez MD PCP - General Family Medicine 01/02/11 Technical Coordinator Relationship Specialty Start Date End Date Uriel Nunez MD PCP - General Family Medicine 01/02/11 Technical Coordinator Relationship Specialty Start Date End Date Uriel Nunez MD PCP - General Family Medicine 01/02/11 Technical Coordinator Relationship Specialty Start Date End Date Uriel Nunez MD PCP - General Family Medicine 01/02/11 Technical Coordinator Relationship Specialty Start Date End Date Uriel Nunez MD [address] [id number] PCP - General Family Medicine 10/21/22 Technical Coordinator Relationship Specialty Start Date End Date Uriel Nunez MD [address] [place] [address] PCP - General Family Medicine 10/21/22 Technical Coordinator Relationship Specialty Start Date End Date Uriel Nunez MD [address] [place] [address] PCP - General Family Medicine 10/21/22 Technical Coordinator Relationship Specialty Start Date End Date Uriel Nunez MD PCP - General Family Medicine 01/02/11 Technical Coordinator Relationship Specialty Start Date End Date Uriel Nunez MD PCP - General Family Medicine 01/02/11 Technical Coordinator Relationship Specialty Start Date End Date Uriel Nunez MD PCP - General Family Medicine 01/02/11 Technical Coordinator Relationship Specialty Start Date End Date Uriel Nunez MD PCP - General Family Medicine 01/02/11 Technical Coordinator Relationship Specialty Start Date End Date Uriel Nunez MD PCP - General Family Medicine 01/02/11 Technical Coordinator Relationship Specialty Start Date End Date Uriel Nunez MD PCP - General Family Medicine 01/02/11 Technical Coordinator Relationship Specialty Start Date End Date Uriel Nunez MD [address] [place] [address] PCP - General Family Medicine 10/21/22 Technical Coordinator Relationship Specialty Start Date End Date Uriel Nunez MD [address] [place] [address] PCP - General Family Medicine 10/21/22 Technical Coordinator Relationship Specialty Start Date End Date Uriel Nunez MD PCP - General Family Medicine 01/02/11 Technical Coordinator Relationship Specialty Start Date End Date Uriel Nunez MD PCP - General Family Medicine 01/02/11 Technical Coordinator Relationship Specialty Start Date End Date Uriel Nunez MD PCP - General Family Medicine 01/02/11 Technical Coordinator Relationship Specialty Start Date End Date Uriel Nunez MD [address] [place] [address] PCP - General Family Medicine 10/21/22 Technical Coordinator Relationship Specialty Start Date End Date Uriel Nunez MD PCP - General Family Medicine 01/02/11 Technical Coordinator Relationship Specialty Start Date End Date Uriel Nunez MD [address] [place] [address] PCP - General Family Medicine 10/21/22 Technical Coordinator Relationship Specialty Start Date End Date Uriel Nunez MD PCP - General Family Medicine 01/02/11 Technical Coordinator Relationship Specialty Start Date End Date Uriel Nunez MD PCP - General Family Medicine 10/01/21 Technical Coordinator Relationship Specialty Start Date End Date Uriel Nnuez MD PCP - General Family Medicine 10/01/21 Technical Coordinator Relationship Specialty Start Date End Date Uriel Nunez MD PCP - General Family Medicine 01/02/11 Technical Coordinator Relationship Specialty Start Date End Date Uriel Nunez MD PCP - General Family Medicine 01/02/11 Technical Coordinator Relationship Specialty Start Date End Date Uriel [...] BE BASED ON THE PRIMARY CLINICAL RECORDS. [facility] provides no warranty or guarantee of the accuracy or completeness of information in this document.
[2025-03-04 06:45] LABS: Cholesterol 268 mg/dL (<=200); HDL Cholesterol 46 mg/dL (40-60); Triglycerides 159 mg/dL (<=150); VLDL CHOLESTEROL 31.8 mg/dL
[2025-03-04] MEDS: ASPIRIN 325 MG TABLET.DR PO (06:46)
[2025-03-04] MEDS: ENOXAPARIN SODIUM 40 MG/0.4 ML SYRINGE SUBQ (06:46)
[2025-03-04] MEDS: METOPROLOL TARTRATE 25 MG TABLET PO (06:46)
--- NOTE | 2025-03-04 08:00 | ECG_ITS ---
[facility] Test Date: 2025-03-04 Pat Name: AMEYA MEZA Department: Room: 2291 Gender: Male Product Support Sales Representative: : 1980 Requested By: [id number] Order Number: [id number] Reading MD: ASHLEY KENNEDY M.D. Measurements Intervals [place] Rate: 105 P: 34 TX: 162 QRS: 32 QRSD: 98 T: 43 QT: 324 QTc: 385 Interpretive Statements 1120 Sinus tachycardia 9140 abnormal rhythm ECG Compared to ECG 03/26/2024 18:35:49 Sinus rhythm no longer present Electronically Signed On 03-05-2025 10:46:12 EDT by ASHLEY KENNEDY M.D.
[2025-03-04] MEDS: CLONIDINE HCL 0.1 MG TABLET PO (11:16)
[2025-03-04] MEDS: CLONAZEPAM 0.5 MG TABLET 2 MG PO (11:16)
[2025-03-04] MEDS: LOSARTAN POTASSIUM 25 MG TABLET PO (11:17)
--- NOTE | 2025-03-04 11:35 | PM.HP ---
HPI H&P: HPI History of Present Illness Chief complaint: fast heart rate, Narrative: Patient is a 44 year old male with medical hx as listed below Opioid HPI Opioid Management Most Recent Pain and Opioid Data: Last Pain Scale 5 Today, 01:36 Last Pain Assessment Today, 06:16 Last ED Pain Assessment Today, 01:36 Last ORT Total Score 4 Today, 06:14 Last ORT Risk Category Moderate Risk Today, 06:14 Ur Phencyclidine Scrn, (NEGATIVE) Negative 03/29/23, 11:15 Review of Systems ROS Status of ROS 10 or more systems reviewed and unremarkable except as noted in history and below [facility] Medical History Osteoarthritis ?M19.90 - Unspecified osteoarthritis, unspecified site (ICD-10) Vertigo ?R42 - Dizziness and giddiness (ICD-10) Degenerative disc disease PTSD (post-traumatic stress disorder) ?F43.10 - Post-traumatic stress disorder, unspecified (ICD-10) Migraine ?G43.909 - Migraine, unspecified, not intractable, without status migrainosus (ICD-10) HIMA (obstructive sleep apnea) ?G47.33 - Obstructive sleep apnea (adult) (pediatric) (ICD-10) Insomnia ?G47.00 - Insomnia, unspecified (ICD-10) GERD (gastroesophageal reflux disease) ?K21.9 - Gastro-esophageal reflux disease without esophagitis (ICD-10) Suicidal ideation ?R45.851 - Suicidal ideations (ICD-10) Bipolar 1 disorder ?F31.9 - Bipolar disorder, unspecified (ICD-10) Anxiety ?F41.9 - Anxiety disorder, unspecified (ICD-10) Respiratory failure requiring intubation ?J96.90 - Respiratory failure, unspecified, unspecified whether with hypoxia or hypercapnia (ICD-10) Depression ?F32.A - Depression, unspecified (ICD-10) Epilepsy ?G40.909 - Epilepsy, unspecified, not intractable, without status epilepticus (ICD-10) Surgical History H/O arthroscopy of left knee ?Z98.890 - Other specified postprocedural states (ICD-10) History of radiofrequency ablation (RFA) of nerve of lumbar spine ?Z98.890 - Other specified postprocedural states (ICD-10) 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 ?Z96.89 - Presence of other specified functional implants (ICD-10) Family History Mother Family history of stroke Family history of diabetes mellitus Father Family history of myocardial infarction Family history of CHF (congestive heart failure) Family history of COPD (chronic obstructive pulmonary disease) Family history of diabetes mellitus Grandmother Family history of diabetes mellitus Social History Within the past year, how often did you have a drink containing alcohol: never Score interpretation: A score less than 4 is consistent with normal alcohol consumption. Smoking status: Never smoker Non-prescribed substance use: denies use Highest level of school completed/degree received: high school graduate Little interest or pleasure in doing things: not at all Feeling down, depressed, or hopeless: not at all Meds Home Medications and Allergies Home Medications ?Medication ?Instructions ?Recorded ?Confirmed ?Type Phenergan 25 mg PO TID PRN nausea and 12/04/22 03/04/25 History vomiting clonazepam 2 mg tablet 2 mg PO TID 12/05/22 03/04/25 History cyproheptadine 4 mg tablet 4 mg PO Q12H 12/05/22 03/04/25 History lacosamide 100 mg tablet 100 mg PO Q12H 12/05/22 03/04/25 History rizatriptan 10 mg disintegrating See Rx Instructions PO .COMPLEX 12/05/22 03/04/25 History tablet (Maxalt-MOWING MACHINE OPERATOR) sertraline 100 mg tablet 300 mg PO Q24H 12/05/22 03/04/25 History albuterol sulfate 90 mcg/actuation 2 inh inhalation Q4H PRN shortness 01/19/23 03/04/25 History aerosol inhaler of breath or wheezing fluticasone propionate 50 1 spray intranasal Q12H 01/19/23 03/04/25 History mcg/actuation nasal spray,suspension erenumab-aooe 140 mg/mL 140 mg subcut .MONTHLY 03/29/23 03/04/25 History subcutaneous auto-injector (Aimovig Autoinjector) clonidine HCl 0.1 mg tablet 0.1 mg PO DAILY 09/25/24 03/04/25 History erenumab-aooe 140 mg/mL 140 mg subcut .monthly 09/25/24 03/04/25 History subcutaneous auto-injector (Aimovig Autoinjector) lorazepam 1 mg tablet (Ativan) 1 mg PO DAILY PRN seizure 09/25/24 03/04/25 History lurasidone 80 mg tablet (Latuda) 80 mg PO DAILY 09/25/24 03/04/25 History quetiapine 200 mg tablet (Seroquel) 200 mg PO DAILY 09/25/24 03/04/25 History quetiapine 50 mg tablet (Seroquel) 50 mg PO TID PRN anxiety 09/25/24 03/04/25 History atorvastatin 40 mg tablet (Lipitor) 40 mg PO QPM #30 tabs 03/04/25 Rx cetirizine 10 mg capsule (Allergy 10 mg PO DAILY PRN allergy symptoms 03/04/25 03/04/25 History Relief (cetirizine)) losartan 25 mg tablet 25 mg PO QD #30 tabs 03/04/25 Rx methocarbamol 500 mg tablet 500 mg PO TID PRN muscle spasm 03/04/25 03/04/25 History metoprolol tartrate 25 mg tablet 25 mg PO BID #60 tabs 03/04/25 Rx Allergies Allergy/AdvReac Type Severity Reaction Status Date / Time desvenlafaxine (From Pristiq) Allergy Unknown SEIZURE Verified 03/04/25 01:09 keppra Allergy Unknown Unknown Uncoded 03/04/25 01:09 Exam Narrative Exam Narrative: Const General: cooperative HEENT Normal oropharyngeal mucosa without any ulcers or exudates Eyes: Conjunctiva normal Pulmonary Auscultation: clear to auscultation , no crackles, no wheezes Cardiovascular Rate: normal rate Rhythm: regular rhythm Heart Sounds: S1 normal, S2 normal and no murmurs GI Inspection: non-distended Palpation: soft, not firm and nontender. No rigidity or rebound. Deferred Neuro General: alert, awake and oriented x3. No obvious new focal deficit Musculoskeletal: normal range of motion Extrem General: no cyanosis, no pedal edema Psych Appearance: appropriate affect. Grossly normal Constitutional Vital Signs, click to edit/add: Last Vital Signs Temp 99.3 F 03/04/25 11:14 Pulse 86 03/04/25 11:14 Resp 18 03/04/25 06:04 BP 141/84 03/04/25 11:14 Pulse Ox 93 L 03/04/25 11:14 O2 Del Method Room Air 03/04/25 11:14 Results Labs Labs: Short CBC 03/04/25 Range/Units 01:12 WBC 11.1 H (4.0-11.0) 10^3/uL Hgb 16.4 (14.0-18.0) g/dL Hct 48.4 (42.0-54.0) % Plt Count 333 (150-450) 10^3/uL BMP 03/04/25 01:12 Sodium 143 Potassium 3.7 Chloride 102 Carbon Dioxide 30.1 BUN 12.0 Creatinine 0.89 Glucose 115 H Calcium 9.7 Assessment and Plan Assessment and Plan (1) Chest pain: (2) Uncontrolled hypertension: Plan -Patient denies any chest pain while here -Hemodynamically stable today -Troponin WNL x 3. EKG seems sinus rhythm, no obvious acute ischemic changes. No evidence of ACS at this time. -Started pt on metoprolol 25 mg BID and Losartan 25 mg daily for better BP control -Lipid panel showing dyslipidemia, pt on simvastatin at home, will switch to Lipitor high intensity QHS. -Discussed with patient regarding cardiac workup, however since its the weekend, we cannot obtain echo or cardio consult over the weekend and pt feels fine and would not want to stay here over the weekend. Discussed with him following with PCP as outpatient to get stress test as outpatient. He tells me that he has had stress test in the past few years ago which was fine, also had Echo in 2023 per chart which seems normal. Discussed with patient at bedside, all questions answered, patient in agreement and comfortable with the plan. Continue blood pressure monitoring at home . Continue to follow-up with PCP. Patient in agreement and comfortable with discharge plan at this time.
--- NOTE | 2025-03-06 13:38 | CM.DCFOLLOWU ---
Person spoke with: Bishnu How are you feeling? Doing ok How is your pain? No pain Did you understand your discharge instructions? Yes Do you have any questions about your discharge instructions? No Were you given any prescriptions at discharge? Yes Were you able to get your prescriptions filled? Yes Do you understand how to take your medications as ordered? Yes Do you have any questions about your follow up appointment and do you plan to keep your follow up appointment? No questions appt was scheduled with Dr Clements tomorrhalina (03/07/2025) Is there anything else that you would like to discuss? No Questions/Comments/Concerns/Other:
--- NOTE | 2025-03-06 15:04 | PC.NURSE ---
Follow- up with Dr. Clements 03/09/25 @ 5225
== END 2025-03-04 13:38 | disposition home or self-care (01) ==
LOC: ER 05:08 → MS 05:51
PROVIDERS: Admitting Provider Internal Medicine; Emergency Provider Internal Medicine; PCP Family Medicine; Visit Provider Internal Medicine
DX: R07.9 Chest pain, unspecified (principal); I10 Essential (primary) hypertension; R06.00 Dyspnea, unspecified; F41.9 Anxiety disorder, unspecified; G40.909 Epilepsy, unspecified, not intractable, without status epilepticus; Z96.89 Presence of other specified functional implants; E78.5 Hyperlipidemia, unspecified
CPT/HCPCS: 36415; 71045; 80048; 80061; 84484; 85025; 85378; 93005; 96372; 99285; G0378; J1650